=== PATIENT | male | born 1970 | race Caucasian/White ===

== ENCOUNTER 2017-12-28 20:39 | Emergency (ER) | payer MEDICAID, SELFPAY ==
[2017-12-28 20:41] VITALS: BP 130/76; PULSE 72; RESP 17; TEMP 36.6; O2SAT 100; BMI 27.4
--- NOTE | 2017-12-28 20:51 | ED.VISSUMM ---
- ER Visit Summary Date of Service: 12/28/17 Chief Complaint: Fall History of Present Illness: The patient is a 47 M who sees Juan Eubanks. Reports that just prior to coming emergency department he slipped on ice and fell backwards onto his buttocks. He hit his head, but did not have a loss of consciousness. He is not on blood thinners. He complains of a headache that is 3 out of 10 severity. He denies any neck, back, shoulder, wrist, or hip pain. Physical Examination: Vitals: Stable. Afebrile. Neck: No vertebral tenderness. Full ROM without difficulty. Cleared by NEXUS criteria. Back: No vertebral tenderness. General: A&O x 3. NAD. Cardiovascular exam: Regular rate and rhythm, no murmur, rub or gallop. Respiratory exam: Chest nontender. No crepitus. Clear to auscultation bilaterally. No wheezes or stridor. Abdominal exam: Soft, nontender, nondistended, normal bowel sounds. No pain in RUQ or LUQ specifically. No peritoneal signs. Extremity: Atraumatic. No pain with range of motion. Emergency Department Course and Treatment: Patient refused pain medications and is resting comfortably. Treatment Plan: He will be discharged instructions use Tylenol and/or ibuprofen for pain. Follow-up with his primary care physician 1 week if not improving. Disposition: To home in improved and stable condition. Impression: 1. Fall. 2. Closed head injury. This note was generated with [employer] dictation software. It may contain incorrect words, spelling, and punctuation that were not noted in review of the chart prior to signing ED Disposition - Plan for ED Patient: Chief Complaint: Fall Instructions: ED Head Injury Closed Referrals: Juan Eubanks, AUTOMOTIVE SERVICE ADVISOR-C [Nurse Practitioner] - As Needed
== END 2017-12-28 21:07 | disposition home or self-care (01) ==
LOC: ED 21:05
PROVIDERS: Emergency Provider Emergency Medicine; PCP Nurse Practitioner Family
DX: S09.90XA Unspecified injury of head, initial encounter (principal); W00.0XXA Fall on same level due to ice and snow, initial encounter; Y93.9 Activity, unspecified; Y92.89 Other specified places as the place of occurrence of the external cause; Y99.9 Unspecified external cause status; I10 Essential (primary) hypertension
CPT/HCPCS: 99282

== ENCOUNTER → 2018-04-15 11:28 | Outpatient (CLI) | payer MEDICAID, SELFPAY ==
[2018-04-15 12:34] LABS: Absolute Lymphocyte Count 1.65 X10^3/ul (0.83-4.51); Absolute Neutrophil Count 3.9 X10^3/uL (2.0-7.7); Basophil# 0.01 X10^3/uL; Basophil% 0.2 % (0-1); Eosinophil# 0.11 X10^3/uL; Eosinophils% 1.8 % (0-5); Hematocrit 38.8 % (40-54); Hemoglobin 13.8 g/dl (13.0-16.5); Lymphocyte # 1.65 X10^3/ul (4.0); Lymphocyte % 26.6 % (19-41); Mean Corp Hgb Conc 35.6 g/gl (32-36); Mean Corpuscular Hgb 30.9 pg (27.0-32.0); Mean Platelet Vol. 10.1 fl (6.2-12.0); Monocyte% 8.1 % (0-10); Neutrophil # 3.92 X10^3/uL (2.7-7.7); Neutrophil % 63.1 % (47-70); Platelet Count 197 K/mm3 (150-450); RBC Distribution Width SD 43.6 fl (35.1-43.9); Red Blood Count 4.46 M/mm3 (4.6-6.2); White Blood Count 6.2 K/mm3 (4.4-11.0)
[2018-04-15 12:39] LABS: POSITIVE COUNT NO; POSITIVE DIFFERENTIAL NO; POSITIVE MORPHOLOGY NO
[2018-04-15 12:52] LABS: AST(SGOT) 24 U/L (15-37); Alanine Aminotransfer ALT/SGPT 27 U/L (16-61); Albumin, Serum 3.9 g/dL (3.2-5.0); Alkaline Phosphatase 82 U/L (45-117); Anion Gap 7 (5-15); BUN 13 mg/dL (7-18); BUN/Creat Ratio 15.6 RATIO (10-20); Calcium,Total 9.5 mg/dL (8.5-10.1); Chloride 106 mmol/L (98-107); Cholesterol 139 mg/dL (200); Creatinine, Serum 0.83 mg/dL (0.70-1.30); EST Glomerular Filtration Rate 105 mL/min (>60); Est Glom Filt Rate - Afr Amer 127 mL/min (>60); Globulin 3.9 g/dL (2.2-4.2); Glucose 94 mg/dL (74-106); High Density Lipoprotein 32 mg/dL; Magnesium 1.9 mg/dL (1.6-2.6); Potassium 4.3 mmol/L (3.5-5.1); Protein, Total 7.8 g/dL (6.4-8.2); Sodium Level 141 mmol/L (136-145); Triglycerides 130 mg/dL; Very Low Density Lipoprotein 26 mg/dL (5-40)
== END ==
PROVIDERS: Family Provider Nurse Practitioner Family; PCP Nurse Practitioner Family; Visit Provider Nurse Practitioner Family
DX: R73.9 Hyperglycemia, unspecified (principal); I10 Essential (primary) hypertension; R79.89 Other specified abnormal findings of blood chemistry; Z87.898 Personal history of other specified conditions; R25.2 Cramp and spasm
CPT/HCPCS: 36415; 80053; 80061; 83036; 83735; 85025

== ENCOUNTER 2019-04-20 09:10 | Emergency (ER) | payer MEDICAID, SELFPAY ==
[2019-01-14 15:02] VITALS: BMI 27.4
[2019-04-20 09:10] VITALS: BP 112/67; PULSE 65; RESP 16; TEMP 36.4; O2SAT 97; BMI 24.4
--- NOTE | 2019-04-20 09:21 | ED.VISSUMM ---
- ER Visit Summary Date of Service: 04/20/19 Chief Complaint: Seizures History of Present Illness: The patient is a 49 M who states he has had a couple of seizures over the past day. He started a new job yesterday. After 1 hour on the job he felt weird and diaphoretic and he states that this is when he feels like he is having a seizure. He left work and got on the bus. He does not remember getting home after that. He states between 1 AM and 3 AM this morning he had another seizure. He takes Keppra 750 mg twice a day. He has not missed any doses. He denies any other recent illnesses. Today he feels dizzy. When he does feel dizzy he takes meclizine and it makes it better. He has not taken any today. Physical Examination: Vital signs reviewed. HEENT exam unremarkable. Heart is regular rate and rhythm without murmurs. Lungs are clear to auscultation. Abdomen is soft and nontender. Extremities reveal no edema. Skin exam normal. Neurologic exam normal. Test Results: Laboratory studies unremarkable except for a sodium of 135, glucose 109 and BUN of 6. Emergency Department Course and Treatment: The patient was given meclizine because he states that this helps with his dizziness. His neurologic exam is completely normal. His labs are reassuring. I do not see any signs that he needs a CT scan of his head. The patient will be discharged to continue his Keppra. He will need to follow-up with a neurologist if his symptoms persist. He will continue with his prescribed dose of Keppra. Treatment Plan: [] Disposition: Discharge Impression: Breakthrough seizure This note was generated with [employer] dictation software. It may contain incorrect words, spelling, and punctuation that were not noted in review of the chart prior to signing ED Disposition - Plan for ED Patient: Referrals: Kem Farmer MD [STAFF PHYSICIAN] -
[2019-04-20 09:43] LABS: Absolute Lymphocyte Count 1.47 X10^3/ul (0.83-4.51); Absolute Neutrophil Count 2.2 X10^3/uL (2.0-7.7); Basophil# 0.02 X10^3/uL; Basophil% 0.5 % (0-1); Eosinophils% 2.3 % (0-5); Hematocrit 38.5 % (40-54); Hemoglobin 13.5 g/dl (13.0-16.5); Lymphocyte # 1.47 X10^3/ul (4.0); Lymphocyte % 34.2 % (19-41); Mean Corp Hgb Conc 35.1 g/gl (32-36); Mean Corpuscular Hgb 32.9 pg (27.0-32.0); Mean Corpuscular Volume 93.9 fL (80-94); Mean Platelet Vol. 9.6 fl (6.2-12.0); Monocyte# 0.49 X10^3/uL; Monocyte% 11.4 % (0-10); Neutrophil # 2.22 X10^3/uL (2.7-7.7); Neutrophil % 51.6 % (47-70); Platelet Count 147 K/mm3 (150-450); RBC Distribution Width CV 13.4 % (11.6-14.6); RBC Distribution Width SD 45.7 fl (35.1-43.9); White Blood Count 4.3 K/mm3 (4.4-11.0)
[2019-04-20 09:46] LABS: POSITIVE COUNT NO; POSITIVE DIFFERENTIAL NO; POSITIVE MORPHOLOGY NO
[2019-04-20] MEDS: Meclizine HCl 25 MG Tablet PO (09:48)
[2019-04-20 09:52] LABS: Anion Gap 11 (5-15); BUN 6 mg/dL (7-18); BUN/Creat Ratio 7.6 RATIO (10-20); Calcium,Total 8.6 mg/dL (8.5-10.1); Chloride 100 mmol/L (98-107); Creatinine, Serum 0.79 mg/dL (0.70-1.30); EST Glomerular Filtration Rate 112 mL/min (>60); Est Glom Filt Rate - Afr Amer 135 mL/min (>60); Estimated Creatinine Clearance 125.51 ml/min; Glucose 109 mg/dL (74-106); Potassium 3.8 mmol/L (3.5-5.1); Sodium Level 135 mmol/L (136-145)
--- NOTE | 2019-04-20 10:01 | ED.DEP ---
ED Disposition - Plan for ED Patient: Disposition: Home or Assisted Living Instructions: ED Seizure Recurrent Referrals: Kem Farmer MD [STAFF PHYSICIAN] -
[2019-04-20] MEDS: levETIRAcetam 750 MG Tablet PO (10:21)
[2019-04-20 10:26] VITALS: RESP 14
[2019-04-20 10:27] VITALS: BP 118/76; PULSE 83; RESP 14; O2SAT 99
== END 2019-04-20 10:28 | disposition home or self-care (01) ==
PROVIDERS: Emergency Provider Emergency Medicine; Family Provider Nurse Practitioner Family; PCP Nurse Practitioner Family
DX: G40.909 Epilepsy, unspecified, not intractable, without status epilepticus (principal); I10 Essential (primary) hypertension
CPT/HCPCS: 80048; 85025; 99284; A4216

== ENCOUNTER 2019-06-09 16:14 | Emergency (ER) | payer MEDICAID, SELFPAY ==
[2019-04-21 15:58] VITALS: BMI 24.4
[2019-06-09 16:16] VITALS: BP 89/62; PULSE 69; RESP 18; TEMP 36.8; O2SAT 88; BMI 19.3
--- NOTE | 2019-06-09 16:46 | EKG12_ITS ---
Test Reason : CP Blood Pressure : / mmHG Vent. Rate : 069 BPM Atrial Rate : 069 BPM P-R Int : 186 ms QRS Dur : 082 ms QT Int : 404 ms P-R-T Axes : 044 020 035 degrees QTc Int : 432 ms Normal sinus rhythm Normal ECG Confirmed by OLEG BRAVO, KEL ([id number]), editorial manager BRENDAN BLACKBURN ([id number]) on 06/13/2019 12:53:28 PM Referred By: ANJEL Confirmed By:KEL DEJESUS MD
--- NOTE | 2019-06-09 16:47 | ED.DCSUM_ITS ---
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 Negative for: Parasthesias, Weakness, Loss of function, Inability to ambulate - states he was able to BW/ambulate BLE after fall Length of loss of consciousness: brief Narrative: Patient states he was going for a job interview today. He was in an area [facility] [place] [employer], he states there was a ledge that was 3 feet high and he thought it was a step so he went to go down but then fell before he realized how high he was, he felt fine prior to this fall. He states he hit his head in his left back and thinks he lost consciousness briefly, and scraped his knees which are not bothering him. He has been able to ambulate. He states his left chest is also bothering him since he awoke on the ground with someone over top of him trying to help him. EMS was called. States he has chronic vertigo and seizure disorder, none of that is an issue at this time. He denies headache, vision change, nausea/vomiting, upper extremity injury, abdominal discomfort. - Past Medical History (1) Arthritis Status: Chronic (2) Depression Status: Chronic (3) GERD (gastroesophageal reflux disease) Status: Chronic (4) Glaucoma Status: Chronic (5) History of alcohol abuse Status: Chronic (6) Hyperlipemia Status: Chronic (7) Hypertension Status: Chronic (8) Peripheral neuropathy Status: Chronic (9) Seizures Status: Chronic (10) Vertigo Status: Chronic Past Medical History - Allergies and Home Meds Allergies/Adverse Reactions: Allergies No Known Allergies Allergy (Verified 06/09/19 16:21) Primary Care Physician: Kem Farmer MD [STAFF PHYSICIAN] - Smoking Status: Never smoker Alcohol: Occasional Review of Systems General: Denies: Chills, Fever, Sweats Eyes: Denies: Visual changes - bilaterally, Diplopia ENT: Denies: Rhinorrhea, Sore throat Cardiovascular: Reports: Chest pain. Denies: Palpitations Respiratory: Denies: Dyspnea, Cough, Dyspnea on exertion Gastrointestinal: Denies: Abdominal pain, Nausea, Vomiting, Diarrhea, Melena, Hematochezia Genitourinary: Denies: Dysuria, Hematuria, Frequency Musculoskeletal: Reports: Back pain. Denies: Extremity Pain Skin: Reports: Abrasions. Denies: Rash Neurological: Denies: Headache, Weakness, Numbness Physical Exam Vital Signs/Narrative: Vital Signs Temp Pulse Resp BP Pulse Ox 06/09/19 16:16 98.3 F 69 18 89/62 L 88 Inital Vital Signs reviewed: Yes General: Well nourished, Well developed Head: Normocephalic, Atraumatic. Negative for: Trauma, Tenderness Eyes: Perrl, EOMI ENT: TM's clear, No hemotympanum or drainage, No trauma. Negative for: Otorrhea, Nasal trauma, Nasal septal hematoma Neck: Nontender, Full ROM. Negative for: Spinal Tenderness, Paraspinal Tenderness Cardiovascular: Regular rate, Regular rhythm, No murmurs Respiratory: No distress, CTA bilaterally - w/ equal BS bilat, Chest tenderness - left lower anterior-lateral ribcage; no crepitance or flail segment Abdomen: Soft, Nontender, Nondistended, Normal bowel sounds Back: Paraspinal Tenderness - left mid-lower ribs paraspinal. Negative for: Spinal Tenderness Extremeties: Abrasions both knees, no bony tenderness, full range of motion throughout knees, no effusion. Ligaments intact. Skin: Normal color, No rash, Trauma - abrasions both knees, no bony tenderness Neurological: Alert, Oriented x3, Cranial nerves II-XII grossly intact, Normal Strength, Normal Sensation Psychological: - - Flat affect Diagnostic/Tx/Re-eval Impressions Brain CT 06/09/19 16:47 IMPRESSION: Normal unenhanced CT scan of the brain. Electronically Signed: Chauncey Castellon DO at 17:45 EDT Tel , Service support , Ribs w/Chest X-Ray 06/09/19 17:20 IMPRESSION: RIBS: Left-sided rib fractures as above CHEST: Normal x-ray examination of the chest. No pneumothorax Electronically Signed: Chauncey Castellon DO at 17:32 EDT Tel , Service support , 06/09/19 16:47 CT Brain [Brain/Head without Contrast] [CT] Stat 06/09/19 17:20 Ribs Uni Min 3V w/PA Chest [RAD] Stat Laboratory Results 06/09/19 06/09/19 17:40 17:40 Troponin I < 0.015 Ethyl Alcohol 382.0 H* - Rhythm Strip Rhythm Strip: Sinus Rhythm Rate: 70 Ectopy: None - EKG Initial EKG Interpretation: Sinus Rhythm, No Acute Injury Pattern - No ectopy. Normal EKG. - Medical Decision Making Patient smelled of alcohol, but I was not sure. Therefore I obtained an alcohol level, it was very high, 380. He was given a [place] initially, a small like alcohol I did not want to give him morphine and suppress his level of consc iousness. He remained awake throughout his stay. X-rays show multiple rib fractures on the left side, none are segmental, there is no flail. He has no evidence of a pulmonary contusion or pneumothorax and has been breathing comfortably with good pulse oximetry. EKG shows no ectopy or ST segment changes, there is no ectopy, this essentially ruling out for all intensive purposes a myocardial contusion. He told nursing that he wanted to stay and agreed to stay in a residential because he would need help caring for himself as he lives alone. However, given that he is grossly intoxicated, at this time the decision is to observe him further in the emergency department. His pain is controlled now while resting in bed. Patient was monitored for about 4 hours total. He is doing much better and is much more reasonable after observation, his parents are here and I discussed his care with them after obtaining his permission. They are comfortable taking him home at this time, I will give him a prescription for some analgesics. We did discuss alcohol use/abuse. ED Disposition - Plan for ED Patient: Disposition: Home or Assisted Living Diagnosis: Fracture of rib of left side, Fall from slip, trip, or stumble, Abrasion of lower extremity, Alcohol intoxication Instructions: FRACTURE, Rib Prescriptions: Hydrocodone Bitart/Apap 5-325 [[place] 5MG-325MG] 1 tab PO Q6H PRN PRN 3 Days #12 tab PRN Reason: Pain Prescription Printed Referrals: Kem Farmer MD [STAFF PHYSICIAN] - 3-5 Days if not improving
--- NOTE | 2019-06-09 16:47 | CT_ITS ---
STUDY: CT BRAIN WITHOUT CONTRAST REASON FOR EXAM: Male, 49 years old. Vertigo and fall RADIATION DOSAGE (If Supplied By Facility): CTDIvol = ( 44.99 ) mGy, DLP = ( 846.73 ) mGycm TECHNIQUE: Transaxial CT imaging of the brain was performed without administration of intravenous contrast material. Individualized dose optimization techniques were used for this CT. COMPARISON: No relevant priors. FINDINGS: Normal soft tissue structures. Normal calvarium. Normal size ventricles and extra-axial spaces for the patient's age. Normal white matter tracts of the cerebral hemispheres. Normal basal ganglia and thalami. Normal brainstem. Normal cerebellum. There is no intracranial hemorrhage. There are no findings of an acute ischemic infarction. Normal visualized paranasal sinuses. CT/Brain/Head without Contrast IMPRESSION: Normal unenhanced CT scan of the brain. Electronically Signed: Chauncey Castellon DO at 17:45 EDT Tel , Service support ,
--- NOTE | 2019-06-09 16:56 | NURSING ---
NO OLD EKGS
[2019-06-09] MEDS: HYDROcodone Bitartrate/Apap 5/325 Tablet PO (17:15)
--- NOTE | 2019-06-09 17:20 | RAD_ITS ---
STUDY: X-RAY - UNILATERAL RIBS ( LEFT ) WITH CHEST REASON FOR EXAM: Male, 49 years old. Left rib pain after fall TECHNIQUE - RIBS: 5 view(s) of the ribs. TECHNIQUE - CHEST: Single frontal view of the chest. COMPARISON: None. FINDINGS - RIBS: Nondisplaced left lateral sixth and seventh and possibly eighth rib fractures. FINDINGS - CHEST: No pneumothorax The lungs are clear and expanded. There is no demonstrated pleural abnormality. Normal size heart. Normal mediastinum and jerry. Normal visualized pulmonary arteries. Normal visualized aortic arch and descending thoracic aorta. Normal visualized thoracic spine. Normal visualized ribs, clavicles, and shoulders. There is no demonstrated abnormality of the visualized soft tissue structures of the upper abdomen. RAD/Ribs Uni Min 3V w/PA Chest IMPRESSION: RIBS: Left-sided rib fractures as above CHEST: Normal x-ray examination of the chest. No pneumothorax Electronically Signed: Chauncey Castellon DO at 17:32 EDT Tel , Service support ,
[2019-06-09 17:51] VITALS: RESP 18
[2019-06-09 18:34] VITALS: BP 106/71; PULSE 68; RESP 15; O2SAT 96
[2019-06-09 20:41] VITALS: BP 133/76; PULSE 84; RESP 17; O2SAT 96
== END 2019-06-09 20:42 | disposition home or self-care (01) ==
PROVIDERS: Emergency Provider Emergency Medicine; Family Provider Nurse Practitioner Family; PCP Nurse Practitioner Family
DX: S22.42XA Multiple fractures of ribs, left side, initial encounter for closed fracture (principal); S80.819A Abrasion, unspecified lower leg, initial encounter; W01.0XXA Fall on same level from slipping, tripping and stumbling without subsequent striking against object, initial encounter; F10.129 Alcohol abuse with intoxication, unspecified; G40.909 Epilepsy, unspecified, not intractable, without status epilepticus; F32.9 Major depressive disorder, single episode, unspecified; K21.9 Gastro-esophageal reflux disease without esophagitis; H40.9 Unspecified glaucoma; E78.5 Hyperlipidemia, unspecified; I10 Essential (primary) hypertension; G62.9 Polyneuropathy, unspecified; Y90.8 Blood alcohol level of 240 mg/100 ml or more; Z60.2 Problems related to living alone
CPT/HCPCS: 36415; 70450; 71101; 80320; 84484; 93005; 99284; G0480

== ENCOUNTER 2019-06-10 12:19 | Emergency (ER) | payer MEDICAID, SELFPAY ==
[2019-06-09 16:16] VITALS: BMI 19.3
[2019-06-10 12:20] VITALS: BP 157/101; PULSE 91; RESP 20; TEMP 36.7; O2SAT 96; BMI 25.1
--- NOTE | 2019-06-10 12:37 | ED.DCSUM_ITS ---
- ER Visit Summary Date of Service: 06/10/19 Chief Complaint: Requesting detox and also more short of breath History of Present Illness: The patient is a 49 M acute alcohol abuse. Patient seen and treated yesterday. From the fall he was diagnosed with left 6, seventh and eighth rib fractures. He was prescribed hydrocodone which she has not had filled yet. Presents today requesting detox as a history of alcohol abuse and his alcohol yesterday was 382. States he has not drank today. Also states he i s more short of breath rib pain. Denies any leg swelling. No cardiac sounding chest pain. Physical Examination: Middle-aged male no acute distress. Vital signs stable afebrile. Pulse ox 96% on room air no signs of hypoxia. H EENT exam atraumatic. C-spine nontender. Trachea midline. Lungs clear to auscultation bilaterally but the decreased inspiration due to pain on the left. Left chest wall tenderness. There is no crepitance or subcu at this time. Heart regular rate and rhythm rate about 90 no murmur. Abdomen is soft and nontender. Normal bowel sounds no peritoneal signs. Remedies moves all 4. Calves are nontender without edema or cords. He is moving all 4 extremities. There is no deformity. Back nontender. Neurologically he is awake and alert with no focal motor deficits. Test Results: Chest x-ray AP and lateral views obtained. Left sixth rib fracture possibly others. No pneumothorax. No pleural effusion. Read by cecilia crespo and the radiologist. Emergency Department Course and Treatment: Patient treated with [place] for pain. Continue with [facility] will be down to evaluate the patient for possible detox. [facility] came to the ER evaluated patient said that her CIAWA score was only 8. Patient did not qualify for detox at this time. Treatment Plan: Already has a prescription for hydrocodone for pain from his broken ribs on the left. [facility]-up with [facility] alcohol abuse. Disposition: dc Impression: Status post recent fall with rib fractures of left ribs #6, #7 #8. History of alcohol abuse requesting detox This note was generated with [employer] software. It may contain incorrect words, spelling, and punctuation that were not noted in review of the chart prior to signing ED Disposition - Plan for ED Patient: Referrals: Juan Eubanks NP-C [Primary Care Provider] -
[2019-06-10] MEDS: HYDROcodone Bitartrate/Apap 5/325 Tablet PO (12:46)
[2019-06-10 12:49] VITALS: BP 150/98
--- NOTE | 2019-06-10 13:00 | RAD_ITS ---
STUDY: X-RAY CHEST REASON FOR EXAM: Male, 49 years old. Left-sided chest pain following a fall. TECHNIQUE: Single AP portable view of the chest. COMPARISON: None. FINDINGS: The lungs are clear and expanded. There is no demonstrated pleural abnormality. Normal size heart. Normal mediastinum and jerry. Normal visualized pulmonary arteries. Normal visualized aortic arch and descending thoracic aorta. Normal visualized thoracic spine. Nondisplaced left sixth, seventh and eighth ribs fractures. There is no demonstrated abnormality of the visualized soft tissue structures of the upper abdomen. RAD/Chest 1 View IMPRESSION: Normal x-ray examination of the chest. Stable left-sided rib fractures. Electronically Signed: Kar Dave, at 13:34 EDT , Service support ,
--- NOTE | 2019-06-10 14:37 | NEWVISION ---
I assessed patient. Patient's CIWA score is 8. I notified Dr. Garcia of his CIWA score. I let patient know that he did not meet admission criteria due to CIWA score and offered resources.
--- NOTE | 2019-06-10 15:07 | ED.DEP ---
ED Disposition - Plan for ED Patient: Disposition: Home or Assisted Living Instructions: FRACTURE, Rib, Alcohol Abuse Referrals: Juan Eubanks, TERRITORY MANAGER GENERAL SALES-C [Primary Care Provider] - As Needed Additional Instructions: Ice to chest wall. Usability brace your broken ribs. Hydrocodone for pain. [facility]-up with [facility] for alcohol abuse.
[2019-06-10 15:32] VITALS: BP 148/80; PULSE 84; RESP 16; O2SAT 98
== END 2019-06-10 15:34 | disposition home or self-care (01) ==
PROVIDERS: Emergency Provider Emergency Medicine; Family Provider Nurse Practitioner Family; PCP Nurse Practitioner Family
DX: S22.42XG Multiple fractures of ribs, left side, subsequent encounter for fracture with delayed healing (principal); W19.XXXD Unspecified fall, subsequent encounter; F10.10 Alcohol abuse, uncomplicated; Y90.9 Presence of alcohol in blood, level not specified; I10 Essential (primary) hypertension; K21.9 Gastro-esophageal reflux disease without esophagitis
CPT/HCPCS: 71045; 99284

== ENCOUNTER 2019-06-16 10:34 | Emergency (ER) | payer MEDICAID, SELFPAY ==
[2019-06-16 10:36] VITALS: BP 99/70; PULSE 74; PULSE 75; RESP 18; TEMP 36.7; O2SAT 96; BMI 24.8
--- NOTE | 2019-06-16 10:45 | ED.VIS.GEN ---
History of Present Illness Chief Complaint: Substance Abuse Detail of Chief Complaint: Requesting detox from alcohol Informant: Patient Onset: Today Timing: Continuous Quality: Patient complains of tremors Location: Generalized Current Severity: Moderate Maximum Severity: Moderate Worsened by: Abstinence Relieved by: Nothing Associated Symptoms: Rib pain secondary to fractures due to seizure Narrative: Patient is a 49-year-old male who reports he has been drinking for 31 years of his life. He was last detox 2002. He states he began to drink right after he got out of detox. He normally drinks a case a day. He has been drinking a sixpack daily for the last week. He contacted Lien who is affiliated with [employer] and recommended he come to the emergency department. Initially he refused to move his left upper extremity/for tremors because he reported he could not. He was informed even though he has broken ribs he should be able to move his left upper extremity. He was successful. Prior similar symptoms: Yes Recent Illness/Hospitalization: No - Past Medical History (1) Depression Status: Chronic (2) GERD (gastroesophageal reflux disease) Status: Chronic (3) Glaucoma Status: Chronic (4) History of alcohol abuse Status: Chronic (5) Hyperlipemia Status: Chronic (6) Hypertension Status: Chronic (7) Peripheral neuropathy Status: Chronic (8) Seizures Status: Chronic (9) Tobacco abuse Status: Chronic Past Medical History - Allergies and Home Meds Allergies/Adverse Reactions: Allergies No Known Allergies Allergy (Verified 06/16/19 10:35) Primary Care Physician: Juan Eubanks NP-C [Primary Care Provider] - Prior records reviewed: Yes Lives: Spouse/ Significant Other Smoking Status: Never smoker Alcohol: Heavy Drugs: None Review of Systems General: Denies: Chills, Fever, Sweats Eyes: Denies: Visual changes - bilaterally, Blurred Vision - bilaterally, Diplopia ENT: Denies: Rhinorrhea, Sore throat Cardiovascular: Reports: Chest pain. Denies: Palpitations, Heart racing Respiratory: Denies: Dyspnea, Cough, Dyspnea on exertion Gastrointestinal: Denies: Abdominal pain, Nausea, Vomiting, Diarrhea, Melena, Hematochezia Genitourinary: Denies: Dysuria, Hematuria, Frequency Musculoskeletal: Denies: Myalgias, Arthralgias, Neck pain, Back pain, Swelling, Extremity Pain Skin: Denies: Rash, Wounds Neurological: Reports: Weakness, Parasthesia. Denies: Headache, Numbness Hematologic: Denies: Easy bruising, Easy bleeding Physical Exam Vital Signs/Narrative: Vital Signs Temp Pulse Resp BP Pulse Ox 06/16/19 10:36 98.0 F 75 18 99/70 96 Inital Vital Signs reviewed: Yes General: Well nourished, Well developed, No Acute Distress Head: Normocephalic, Atraumatic Eyes: Perrl, EOMI ENT: Moist mucous membranes, No rhinorrhea Neck: Supple, Nontender Cardiovascular: Regular rate, Regular rhythm, No murmurs Respiratory: No distress, CTA bilaterally, Chest nontender Abdomen: Soft, Nontender, Nondistended, Normal bowel sounds Back: Nontender, Normal Inspection Extremities: Nontender, No edema Skin: Normal color, No Trauma, Rash - Eczema. Negative for: Cyanosis, Diaphoresis, Jaundice Neurological: Alert, Oriented x3, Cranial nerves II-XII grossly intact, Normal Strength, Normal Sensation, Normal DTR - 1-2+ symmetric with no clonus or Babinski sign. Psychological: Depressed Diagnostic/Tx/Re-eval - Medical Decision Making [facility].. Patient is not tachycardic, tach tachypnea, hypertensive and there is no tremor, hyperreflexia or clonus. [facility] was contacted since he is requesting detox. Lien from [facility] informed me that patient was accepted at [facility]. He is waiting for his . ED Disposition - Plan for ED Patient: Disposition: Home or Assisted Living Diagnosis: Alcohol dependence with alcohol-induced mood disorder, Rib fractures Instructions: Alcohol Abuse Referrals: Juan Eubanks NP-C [Primary Care Provider] -
--- NOTE | 2019-06-16 10:47 | ED.RN ---
this rn talked with Sherry. they states they had talked with lc from [facility] and she would be up to evaluate pt.this rn left message for [facility].
[2019-06-16 12:20] VITALS: BP 104/73; PULSE 67; RESP 17; RESP 18
== END 2019-06-16 12:23 | disposition home or self-care (01) ==
PROVIDERS: Emergency Provider Emergency Medicine; Family Provider Nurse Practitioner Family; PCP Nurse Practitioner Family
DX: F10.24 Alcohol dependence with alcohol-induced mood disorder (principal); Y90.9 Presence of alcohol in blood, level not specified; F32.9 Major depressive disorder, single episode, unspecified; E78.5 Hyperlipidemia, unspecified; G62.9 Polyneuropathy, unspecified; H40.9 Unspecified glaucoma; I10 Essential (primary) hypertension; K21.9 Gastro-esophageal reflux disease without esophagitis; S22.49XA Multiple fractures of ribs, unspecified side, initial encounter for closed fracture; X58.XXXA Exposure to other specified factors, initial encounter; Y92.9 Unspecified place or not applicable; Y99.9 Unspecified external cause status
CPT/HCPCS: 99284

== ENCOUNTER → 2019-06-23 09:45 | Outpatient (CLI) | payer MEDICAID, SELFPAY ==
[2019-06-23 09:17] VITALS: BMI 24.8
[2019-06-27 08:15] LABS: KEPPRA (LEVETIRACETAM) 58.5 ug/mL (10.0-40.0)
== END ==
PROVIDERS: Family Provider Nurse Practitioner Family; PCP Internal Medicine; Visit Provider Nurse Practitioner Family
DX: R56.9 Unspecified convulsions (principal)
CPT/HCPCS: 36415; 80177

== ENCOUNTER 2019-11-10 19:57 | Emergency (ER) | payer MEDICAID, SELFPAY ==
[2019-08-10 15:20] VITALS: BMI 24.8
[2019-11-10 19:59] VITALS: BP 133/82; PULSE 74; RESP 18; TEMP 36.8; O2SAT 100
--- NOTE | 2019-11-10 21:13 | ED.VISSUMM ---
- ER Visit Summary Date of Service: 11/10/19 Chief Complaint: Abscess History of Present Illness: The patient is a 49 M presenting with left buttock abscess. Patient states this started a couple of days ago. He currently is in alcohol treatment. He receives Vivitrol injections once a month. His last injection was one week ago. He now has redness and abscess surrounding the injection site. He denies fever or other complaints. Physical Examination: Vitals are stable. Patient is afebrile. Alert no acute distress. HEENT exam is unremarkable. Neck is supple. Lungs are clear and equal bilaterally. Heart is regular rate and rhythm. Abdomen is soft nontender nondistended. Left buttock indurated abscess 3 cm with surrounding erythema Extremities are unremarkable. Skin is warm and dry. No focal neurologic deficit. Remainder of exam is unremarkable. Emergency Department Course and Treatment: I&D was performed. Anesthetized with lidocaine. Incised with 11 blade. Pus was drained. Probed to break up loculations. Irrigated with saline. Patient tolerated this well. He is given Bactrim and Keflex. Advised to follow-up with primary care physician. Advised return to ED if worsening complaints. Disposition: Discharged home Impression: Buttock abscess, I&D This note was generated with [employer] dictation software. It may contain incorrect words, spelling, and punctuation that were not noted in review of the chart prior to signing ED Disposition - Plan for ED Patient: Instructions: ABSCESS, Incision and Drainage Prescriptions: Smz/Tmp Ds [Bactrim Ds] 1 tab PO BID #14 tab Prescription Printed Cephalexin [Keflex] 500 mg PO Q6 #40 cap Prescription Printed Referrals: Kem Farmer MD [Primary Care Provider] -
--- NOTE | 2019-11-10 23:00 | ED.DEP ---
ED Disposition - Plan for ED Patient: Instructions: ABSCESS, Incision and Drainage Prescriptions: Smz/Tmp Ds [Bactrim Ds] 1 tablet PO BID #14 tablet Cephalexin [Keflex] 500 mg PO Q6 #40 capsule Referrals: Kem Farmer MD [Primary Care Provider] -
[2019-11-10] MEDS: Cephalexin 250 MG Capsule 500 MG PO (23:20)
[2019-11-10] MEDS: Smz/Tmp Ds Tablet 1 TABLET PO (23:20)
[2019-11-10 23:24] VITALS: RESP 16
== END 2019-11-10 23:24 | disposition home or self-care (01) ==
LOC: ED 20:41
PROVIDERS: Emergency Provider Emergency Medicine; Family Provider Internal Medicine; PCP Internal Medicine
DX: L02.31 Cutaneous abscess of buttock (principal); I10 Essential (primary) hypertension; Z79.899 Other long term (current) drug therapy
CPT/HCPCS: 10060; 99283

== ENCOUNTER 2019-11-30 20:01 | Emergency (ER) | payer SELFPAY ==
[2019-11-18 16:03] VITALS: BMI 28.8
[2019-11-30 20:02] VITALS: BP 144/93; PULSE 81; RESP 17; TEMP 36.1; O2SAT 99; BMI 28.6
--- NOTE | 2019-11-30 20:35 | RAD_ITS ---
STUDY: X-RAY - LEFT KNEE REASON FOR EXAM: Male, 49 years old. Fall. Pain. TECHNIQUE: 4 view(s) of the knee. COMPARISON: None. FINDINGS: There is no evidence of fracture or dislocation. There are no significant degenerative changes. There are no radiodense foreign bodies. RAD/Knee 4 or More Views IMPRESSION: No fracture or dislocation. Electronically Signed: Huber Hay, at 20:39 EST Tel , Service support ,
--- NOTE | 2019-11-30 20:54 | ED.VIS.LOWEX ---
History of Present Illness Chief Complaint: Lower Extremity Injury Informant: Patient Occurred: Today Mechanism/Context: Fall Onset: Today Context: Sudden Onset Timing: Continuous Quality of Pain: Aching Location: left knee Current Severity: Moderate Maximum Severity: Moderate Worsened by: walking Relieved by: rest Associated Symptoms: Negative for: Parasthesia, Weakness, Loss of Funtion Narrative: Patient states he slipped on outdoor steps, falling to the concrete versus his left knee mainly. It was earlier today. He has been having pain with walking and feels it is a little swollen. Sustained an abrasion. No other injuries. Has been able to ambulate. - Past Medical History (1) Brain atrophy Status: Chronic (2) Depression Status: Chronic (3) GERD (gastroesophageal reflux disease) Status: Chronic (4) Glaucoma Status: Chronic (5) History of alcohol abuse Status: Chronic (6) Hyperlipemia Status: Chronic (7) Hypertension Status: Chronic (8) Peripheral neuropathy Status: Chronic (9) Seizures Status: Chronic Past Medical History - Allergies and Home Meds Allergies/Adverse Reactions: Allergies No Known Allergies Allergy (Verified 11/30/19 20:01) Primary Care Physician: Kem Farmer MD [Primary Care Provider] - Smoking Status: Never smoker Review of Systems General: Denies: Chills, Fever, Sweats Musculoskeletal: Reports: Extremity Pain. Denies: Neck pain, Back pain Skin: Reports: Abrasions. Denies: Rash Neurological: Denies: Headache, Weakness, Numbness Physical Exam Vital Signs/Narrative: Vital Signs Temp Pulse Resp BP Pulse Ox 11/30/19 20:02 97.0 F L 81 17 144/93 H 99 Inital Vital Signs reviewed: Yes - Extremity Exam Left Knee: Abrasion - Broad-based, superficial, scabbed between tibial tuberosity and patella; tender throughout that area., Limited ROM - With regards to flexion., - - Full extension intact. All ligaments stable with short endpoints and little discomfort on stressing. No effusion. Joint stable. General: Well nourished, Well developed, - - NAD Head: Normocephalic, Atraumatic Skin: Normal color, No rash, Trauma - Abrasion left knee, minor abrasions to right lower leg Neurological: Alert, Oriented x3, Cranial nerves II-XII grossly intact, Normal Strength, Normal Sensation Psychological: Normal affect, Normal Mood Diagnostic/Tx/Re-eval On my interpretation, 4 view x-ray of the left knee shows no acute fracture or acute disease. - Medical Decision Making Patient placed in an Mark wrap, given ibuprofen, prescription for Naprosyn, and advised to follow-up with orthopedics if he has persistent problems after 1 to 2 weeks of rest and ice and NSAIDs. ED Disposition - Plan for ED Patient: Disposition: Home or Assisted Living Diagnosis: Contusion of left knee, Fall from slip, trip, or stumble Instructions: CONTUSION, Lower Extremity Prescriptions: Naproxen [Naprosyn] 500 mg PO BID PRN #20 tab Transmission Status: Pending to [facility] [place] - [id number] Referrals: Sabine Ballard DO [STAFF PHYSICIAN] - 10-14 Days if not better
[2019-11-30] MEDS: Ibuprofen 600 MG Tablet PO (21:16)
[2019-11-30 21:17] VITALS: PULSE 78; RESP 18; O2SAT 98
== END 2019-11-30 21:24 | disposition home or self-care (01) ==
PROVIDERS: Emergency Provider Emergency Medicine; Family Provider Internal Medicine; PCP Internal Medicine
DX: S80.02XA Contusion of left knee, initial encounter (principal); S80.212A Abrasion, left knee, initial encounter; S80.811A Abrasion, right lower leg, initial encounter; W01.0XXA Fall on same level from slipping, tripping and stumbling without subsequent striking against object, initial encounter; Y93.9 Activity, unspecified; Y92.9 Unspecified place or not applicable; F32.9 Major depressive disorder, single episode, unspecified; K21.9 Gastro-esophageal reflux disease without esophagitis; H40.9 Unspecified glaucoma; E78.5 Hyperlipidemia, unspecified; I10 Essential (primary) hypertension; G62.9 Polyneuropathy, unspecified; G40.909 Epilepsy, unspecified, not intractable, without status epilepticus; G31.9 Degenerative disease of nervous system, unspecified; Z79.899 Other long term (current) drug therapy
CPT/HCPCS: 73564; 99283

== ENCOUNTER 2020-11-14 08:46 | Emergency (ER) | payer SELFPAY ==
[2020-11-13 08:14] VITALS: BMI 27.9
[2020-11-14 08:47] VITALS: BP 153/102; PULSE 87; RESP 17; TEMP 36.8; O2SAT 99; BMI 27.3
--- NOTE | 2020-11-14 09:02 | ED.DCSUM_ITS ---
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 He is right-hand dominant. Reports this morning at work he had lifted a bumper that he estimates was 80 pounds off the table. The end of the bumper ran into one of the car bodies and jerked him and he dropped to the bumper. He had immediate onset of pain in his left shoulder. He reports he has pain is 10 of 10 when he abducts his shoulder and 7 out of 10 at rest. He denies any paresthesias. He did not fall. He denies other injuries. Physical Examination: Vitals: Stable. Afebrile. Neck: No vertebral tenderness. Full ROM without difficulty. Cleared by NEXUS criteria. Back: No vertebral tenderness. General: A&O x 3. NAD. Cardiovascular exam: Regular rate and rhythm, no murmur, rub or gallop. Respiratory exam: Chest nontender. No crepitus. Clear to auscultation bilaterally. No wheezes or stridor. Abdominal exam: Soft, nontender, nondistended, normal bowel sounds. No pain in RUQ or LUQ specifically. No peritoneal signs. Extremity: Mild tenderness palpation to the posterior surface of his left shoulder. He does have decreased range of motion secondary to pain with active motion much greater than passive. He also has pain with external rotation. He is a 2+ radial pulse.. Test Results: Clinical Impression(s) from Imaging Studies Shoulder X-Ray 11/14/20 09:07 IMPRESSION: Healed left rib fractures. Mild degree of degenerative changes of the acromioclavicular joint. Electronically Signed: Kar Tenzin, at 9:31 EST , Service support , Emergency Department Course and Treatment: Patient was placed in a sling and treated with naproxen. I had a prolonged discussion to him that he may have damaged his rotator cuff. Treatment Plan: Patient will be discharged with marked restrictions and a sling. Instructed use Tylenol and/or ibuprofen for pain. Ice the area. Follow-up corporate care in 3 to 5 days if not improving. Return to the emergency department for any worsening symptoms. Disposition: To home in improved and stable condition. Impression: 1. Left shoulder sprain. This note was generated with [employer] dictation software. It may contain incorrect words, spelling, and punctuation that were not noted in review of the chart prior to signing ED Disposition - Plan for ED Patient: Instructions: ED Shoulder Pain, Uncertain Cause Referrals: Corporate,[facility] [GROUP OF PHYSICIANS] - 3-5 Days
--- NOTE | 2020-11-14 09:07 | RAD_ITS ---
STUDY: X-RAY - LEFT SHOULDER REASON FOR EXAM: Male, 50 years old. INJURED LEFT SHOULDER. HE STATES HIS ARM WAS JERKED WHILE AT WORK TODAY.PAIN IN LEFT SHOULDER. TECHNIQUE: 2 view(s) of the shoulder. COMPARISON: None. FINDINGS: Normal glenohumeral articulation. There is degenerative arthrosis of the acromioclavicular joint without inferior osseous spur formation. Normal acromion. Normal humeral head and visualized proximal humerus. Healed left rib fractures. The soft tissue structures are unremarkable. Normal visualized pulmonary apex. RAD/Shoulder min 2 Views IMPRESSION: Healed left rib fractures. Mild degree of degenerative changes of the acromioclavicular joint. Electronically Signed: Kar Dave, at 9:31 EST , Service support ,
[2020-11-14] MEDS: Naproxen 500 MG Tablet PO (09:39)
== END 2020-11-14 10:10 | disposition home or self-care (01) ==
LOC: ED 09:26
PROVIDERS: Emergency Provider Emergency Medicine; PCP Internal Medicine
DX: S43.402A Unspecified sprain of left shoulder joint, initial encounter (principal); W22.03XA Walked into furniture, initial encounter; I10 Essential (primary) hypertension
CPT/HCPCS: 73030; 99283

== ENCOUNTER → 2020-11-30 08:14 | Outpatient (CLI) | payer SELFPAY ==
[2020-11-13 08:14] VITALS: BMI 27.9
[2020-11-14 08:47] VITALS: BMI 27.3
--- NOTE | 2020-11-30 08:19 | MRI_ITS ---
STUDY: MRI BRAIN WITH AND WITHOUT CONTRAST REASON FOR EXAM: Male, 50 years old. Hx of eplileptic seizures, currently under control with meds. New pain, numbness in bilat feet and right hand TECHNIQUE: Standardized multiplanar fat and water weighted pulse sequences were obtained. 17ml DOtarem via IV was administered for the contrast portion of the examination. COMPARISON: CT 06/09/2019 FINDINGS: There is mild cerebral atrophy with widening of the extra-axial spaces and ventricular dilatation. Normal white matter tracts of the supratentorial brain. There is no evidence for recent intracranial ischemia or other cause of cytotoxic edema on diffusion weighted imaging (DWI). Normal T2* images of the brain without demonstrated susceptibility artifact. There is no demonstrated hemosiderin stain. Thin section coronal T2-weighted images the temporal lobes demonstrate no evidence of hippocampal atrophy or hyperintensity to suggest mesial temporal sclerosis. Normal bilateral basal ganglia. Normal thalami. There is no extra-axial fluid accumulation. Normal flow voids within the major intracranial circulation suggesting patency by spin echo criteria. Normal venous enhancement. There is no enhancing intra-axial or extra-axial abnormality. Normal sella turcica, pituitary gland, infundibular stalk, optic chiasm and hypothalamus. Normal tectal plate and pineal gland. Normal midbrain, gabriel and medulla. Normal cerebellum. Normal basal cisterns. Normal bilateral temporal bones. Normal bilateral internal auditory canals. There are bilateral ocular lens implants with otherwise normal intraorbital contents. There is mucoperiosteal inflammatory disease of the paranasal sinuses consistent with mild chronic sinusitis. Normal calvarium and skull base. Normal visualized soft tissue structures. Normal visualized upper cervical spine. MRI/Brain W/WO Contrast IMPRESSION: Involutional changes of the brain, as described above. Electronically Signed: Davin Romero MD at 14:54 EST Tel , Service support ,
--- NOTE | 2020-11-30 10:42 | TELEMED_ITS ---
[facility] Telemed has confirmed receipt of a request for visit. This document confirms receipt of the order initiating the consult. To find the results of the consultation, please view the patient's reports for the scanned Telemed Consult.
== END ==
PROVIDERS: PCP Nurse Practitioner Family; Referring Provider Psychiatry & Neurology Neurology; Visit Provider Psychiatry & Neurology Neurology
DX: G40.909 Epilepsy, unspecified, not intractable, without status epilepticus (principal)
CPT/HCPCS: 70553; 95819; A9575

== ENCOUNTER → 2020-12-28 08:06 | Outpatient (CLI) | payer MEDICAID, SELFPAY ==
[2020-11-13 08:14] VITALS: BMI 27.9
[2020-12-25 16:56] VITALS: BMI 27.9
--- NOTE | 2020-12-28 10:25 | NEURO_ITS ---
NCS and/or EMG Patient Report Ordering Doctor: Neo Ji DATE OF SERVICE: 12/28/20 Indication: Long standing bilateral foot pain which worsens with activity. Diminished sensation in the feet. History of multiple ankle fractures. Localized back pain without clear radicular symptoms. Evaluate for peripheral polyneuropathy. Findings: Nerve conduction studies were performed in the right and left lower extremities. The right peroneal motor study recording the extensor digitorum brevis showed a normal amplitude, normal distal latency and borderline conduction velocity. No conduction block or focal slowing was present across the fibular neck. The right tibial motor study recording the abductor hallucis brevis showed a normal amplitude, normal distal latency and slightly reduced conduction velocity. Right sural sensory response showed a reduced amplitude, prolonged peak latency and slowed conduction velocity. Right superficial peroneal sensory response showed a normal amplitude, prolonged peak patency and borderline conduction velocity. Right medial plantar sensory response showed an absent response. The left peroneal motor study recording the extensor digitorum brevis showed a normal amplitude, prolonged distal latency and borderline conduction velocity. No conduction block or focal slowing was present across the fibular neck. The left tibial motor study recording the abductor hallucis brevis showed a normal amplitude, normal distal latency and borderline conduction velocity. Left sural sensory response showed a reduced amplitude, mildly prolonged peak latency and borderline conduction velocity. Left superficial peroneal sensory response showed a normal amplitude, normal peak latency and borderline conduction velocity. Left medial plantar sensory response showed an absent response. Needle EMG of the right lower extremity and paraspinal muscles was performed. Examination of other limbs was deferred at the patient's request. Sparse active denervation was present in the medial gastrocnemius muscle. The paraspinal muscles demonstrated increased insertional activity with occasional myotonic discharges. Fasciculation potentials were present in the tibialis anterior. Motor unit morphology, activation, and recruitment patterns were normal. Impression: This is an abnormal study. There is electrophysiologic evidence of length- dependent, axonal, sensorimotor peripheral polyneuropathy. The isolated denervation in the medial gastrocnemius muscle and increased insertional activi ty of the lower paraspinal muscles are suggestive of a superimposed, active, right S1 radiculopathy. Riky Carreno D.O.
== END ==
PROVIDERS: PCP Internal Medicine; Referring Provider Psychiatry & Neurology Neurology; Visit Provider Psychiatry & Neurology Neurology
DX: G62.9 Polyneuropathy, unspecified (principal)
CPT/HCPCS: 95886; 95911

== ENCOUNTER → 2021-01-21 11:27 | Outpatient (CLI) | payer MEDICAID, SELFPAY ==
[2020-12-25 16:56] VITALS: BMI 27.9
[2021-01-21 12:24] LABS: Hematocrit 45.1 % (40-54); Hemoglobin 15.3 g/dL (13.0-16.5); Mean Corp Hgb Conc 33.9 g/dL (32-36); Mean Corpuscular Hgb 32.9 pg (27.0-32.0); Mean Platelet Vol. 10.1 fl (6.2-12.0); Platelet Count 206 K/mm3 (150-450); RBC Distribution Width CV 13.1 % (11.6-14.6); RBC Distribution Width SD 46.6 fl (35.1-43.9); Red Blood Count 4.65 M/mm3 (4.6-6.2); White Blood Count 4.9 K/mm3 (4.4-11.0)
[2021-01-21 13:01] LABS: Vitamin B12 278 pg/mL (211-911)
[2021-01-21 13:19] LABS: ALB/GLOB Ratio 1.1 RATIO (0.9-2.4); AST(SGOT) 40 U/L (15-37); Alanine Aminotransfer ALT/SGPT 36 U/L (16-61); Albumin, Serum 4.1 g/dL (3.2-5.0); Alkaline Phosphatase 91 U/L (45-117); Anion Gap 10 (5-15); BUN 16 mg/dL (7-18); BUN/Creat Ratio 16.7 RATIO (10-20); Calcium,Total 8.7 mg/dL (8.5-10.1); Chloride 102 mmol/L (98-107); Creatinine, Serum 0.96 mg/dL (0.70-1.30); EST Glomerular Filtration Rate 88 mL/min (>60); Est Glom Filt Rate - Afr Amer 107 mL/min (>60); Globulin 3.9 g/dL (2.2-4.2); Glucose 92 mg/dL (74-106); Potassium 4.1 mmol/L (3.5-5.1); Sodium Level 136 mmol/L (136-145); Thyroid Stim Hormone (TSH) 5.79 uIU/mL (0.358-3.74)
[2021-01-26 14:09] LABS: Free Kappa Light Chains 16.7 mg/L (3.3-19.4); Free Lambda Light Chains 17.3 mg/L (5.7-26.3); Vitamin B1, Thiamine 153.5 nmol/L (66.5-200.0)
[2021-01-26 15:40] LABS: KEPPRA (LEVETIRACETAM) 30.5 ug/mL (10.0-40.0)
== END ==
PROVIDERS: Psychiatry & Neurology Neurology; PCP Internal Medicine; Visit Provider Nurse Practitioner Family
DX: G62.9 Polyneuropathy, unspecified (principal); R56.9 Unspecified convulsions
CPT/HCPCS: 80053; 80177; 82140; 82607; 82746; 83883; 84425; 84443; 85027

== ENCOUNTER 2021-09-30 10:56 | Emergency (ER) | payer SELFPAY ==
[2021-09-30 10:57] VITALS: BP 114/76; PULSE 90; RESP 18; TEMP 36.5; O2SAT 97; BMI 27.8
[2021-09-30 12:12] LABS: Absolute Lymphocyte Count 0.99 X10^3/uL (0.83-4.51); Absolute Neutrophil Count 3.1 X10^3/uL (2.0-7.7); Basophil# 0.02 X10^3/uL; Basophil% 0.4 % (0-1); Eosinophil# 0.04 X10^3/uL; Eosinophils% 0.9 % (0-5); Hematocrit 35.7 % (40-54); Lymphocyte # 0.99 X10^3/ul (0.83-4.51); Lymphocyte % 21.7 % (19-41); Mean Corp Hgb Conc 33.6 g/dL (32-36); Mean Corpuscular Hgb 33.8 pg (27.0-32.0); Mean Corpuscular Volume 100.6 fL (80-94); Mean Platelet Vol. 9.9 fl (6.2-12.0); Monocyte# 0.45 X10^3/uL; Monocyte% 9.9 % (0-10); NRBC Flagged by Analyzer 0 % (0-5); Neutrophil # 3.05 X10^3/uL (2.7-7.7); Neutrophil % 66.9 % (47-70); Platelet Count 115 K/mm3 (150-450); RBC Distribution Width SD 56.6 fl (35.1-43.9); Red Blood Count 3.55 M/mm3 (4.6-6.2); White Blood Count 4.6 K/mm3 (4.4-11.0)
--- NOTE | 2021-09-30 12:20 | EKG12_ITS ---
Test Reason : EDEMA Blood Pressure : / mmHG Vent. Rate : 077 BPM Atrial Rate : 077 BPM P-R Int : 180 ms QRS Dur : 086 ms QT Int : 374 ms P-R-T Axes : 044 029 017 degrees QTc Int : 423 ms Normal sinus rhythm Normal ECG Confirmed by KENZIE BRAVO, RYANN ([id number]), continuity editor GUILLERMO PALMA ([id number]) on 10/02/2021 9:15:44 AM Referred By: SARAI/DOLORES Confirmed By:RYANN ESPINO MD
--- NOTE | 2021-09-30 12:20 | VDLE_ITS ---
Reason For Study: Swelling, Pain RIGHT LEFT GSV is normal. GSV is normal. CFV is compressible, spontaneous, phasic, CFV is compressible, spontaneous, phasic, competent and demonstrates normal competent, and demonstrates normal augmentation. augmentation. FV is compressible, spontaneous, phasic, FV is compressible, spontaneous, phasic, competent and demonstrates normal competent and demonstrates normal augmentation. augmentation. POP V is compressible, spontaneous, phasic, POP V is compressible, spontaneous, phasic, competent and demonstrates normal competent and demonstrates normal augmentation. augmentation. T/P Trunk is compressible. T/P Trunk is compressible. PTV is compressible. PTV is compressible. RT PerV is compressible. LT PerV is compressible. Procedure This is a venous duplex using B-mode, color flow and spectral Doppler. Exam performed portable in ED. A preliminary report was called and/or faxed to Dr. Tidwell. VL/Venous Duplex US - Temo Extrem Interpretation Summary Deep veins of the lower extremities are bilaterally patent and compressible seg mentally. There is no evidence of deep vein thrombosis on either side. Valvular competence appears in tact within the proximal deep venous systems bilaterally. The great saphenous veins appear bila terally patent and compressible segmentally. Ordering Physician: John Tidwell Referring Physician: Kem Farmer Performed By: Estrella Cooper, RDCS, RVT
--- NOTE | 2021-09-30 12:21 | EDS_ITS ---
HPI History of Present Illness HPI Narrative: Patient presents with bilateral lower extremity swelling for the last few weeks. He states he saw his primary care physician 2 weeks ago because of the swelling. He has past medical history of peripheral neuropathy. He states that she told him that the swelling of his legs has nothing to do with his neuropathy. He does state that he is on his feet all day. He states that his feet have been swollen and hurting him because they are so swollen. He denies any chest pain or shortness of breath, no other symptoms. However, he states that his old physician and [facility] risk, who is friends with, was concerned about a blood clot in his legs. He denies any DVT or PE risk factors, and has had no trauma or immobility issues recently. Chief Complaint: Edema [facility] Medical History (Updated 09/30/21 @ 14:14 by John Tidwell MD) Arthritis Back pain Balance problem Brain atrophy Chest pain Diarrhea Fracture, ribs Glaucoma History of alcohol abuse Hyperlipemia Hypertension Knee pain Limb weakness Neuropathy of both feet Seizures Venous insufficiency of both lower extremities Home Medications acetaminophen 500 mg capsule 500 mg PO Q6H PRN #120 cap 06/23/19 [Rx Last Taken Unknown] naproxen 500 mg PO BID PRN #20 tab 11/30/19 [Rx Last Taken Unknown] levetiracetam 1,000 mg tablet 1,000 mg PO BID #180 tab 01/04/21 [Rx Last Taken Unknown] lactulose 10 gram/15 mL (15 mL) oral solution 15 ml PO DAILY #450 ml 03/04/21 [Rx Last Taken Unknown] carvedilol 25 mg tablet See Rx Instructions .ROUTE .COMPLEX #56 tab 06/14/21 [Rx Last Taken Unknown] fluticasone propionate 50 mcg/actuation nasal spray,suspension 2 spray INTRANASAL DAILY #15.8 g 06/14/21 [Rx Last Taken Unknown] ibuprofen 800 mg tablet 800 mg PO Q8 PRN #60 tab 06/14/21 [Rx Last Taken Unknown] lidocaine 5 % topical patch 1 patch TOPICAL DAILY PRN #30 ea 06/14/21 [Rx Last Taken Unknown] sildenafil 50 mg tablet 50 mg PO DAILY PRN #10 tab 06/14/21 [Rx Last Taken Unknown] thiamine HCl (vitamin B1) 250 mg tablet 250 mg PO DAILY #90 tab 06/14/21 [Rx Last Taken Unknown] duloxetine 30 mg capsule,delayed release 30 mg PO DAILY #7 cap 07/02/21 [Rx Last Taken Unknown] duloxetine 60 mg capsule,delayed release 60 mg PO DAILY #90 cap 07/02/21 [Rx Last Taken Unknown] gabapentin 600 mg tablet 300 mg PO BID #30 tab 08/21/21 [Rx Last Taken Unknown] levetiracetam 1,000 mg tablet 1,000 mg PO BID #60 tablet 08/21/21 [Rx Last Taken Unknown] levothyroxine 25 mcg tablet 25 mcg PO DAILY #90 tab 08/21/21 [Rx Last Taken Unknown] mecobalamin (vitamin B12) 1,000 mcg disintegrating tablet,sublingual 1,000 mcg SUBLINGUAL QHS #90 tab 08/21/21 [Rx Last Taken Unknown] compress.stocking,knee,reg,lrg #2 ea 09/18/21 [Rx Last Taken Unknown] meclizine 25 mg tablet 25 mg PO BID PRN #60 tab 09/18/21 [Rx Last Taken Unknown] multivitamin 1 tab PO QAM #90 tab 09/18/21 [Rx Last Taken Unknown] verapamil 180 mg tablet,extended release 180 mg PO QPM #90 tab 09/18/21 [Rx Last Taken Unknown] Allergy/AdvReac Type Severity Reaction Status Date / Time No Known Allergies Allergy Verified 09/30/21 10:59 Family History Father Alcoholism Heart disease Myocardial infarction Mother Arthritis Sister Depression Grandfather Myocardial infarction Grandfather CVA (cerebral vascular accident) Surgical History History of bilateral hip replacements History of surgical procedure on eye proper using laser History of tonsillectomy Social History Smoking Status: Current every day smoker tobacco type: cigarettes Smokeless tobacco user: chewing tobacco Electronic Cigarette Use: not used second hand exposure: Yes alcohol intake: former year quit: 2019 substance use type: does not use what type of physical activity do you participate in: walking frequency: daily ROS ROS ED ROS Narrative Constitutional: No fever, no chills. HEENT: No sore throat. No neck pain. No loss of vision. No rhinorrhea. Cardiovascular: No chest pain. No palpitations. Bilateral pedal edema. Respiratory: No cough, no shortness of breath. Abdominal: No abdominal pain. No nausea. No vomiting. Genitourinary: No dysuria. No hematuria. Musculoskeletal: No myalgias. No arthralgias. Neurologic: No headaches. No dizziness. No lightheadedness. Bilateral lower extremity neuropathy, chronic. Skin: No rash. No change in color. Psychiatric: No depression. No anxiety. EXAM Physical Exam Narrative Exam Narrative: Afebrile. Vital signs noted. HEENT: Normocephalic. Atraumatic. PERRL, EOMI. Neck soft and supple. No point tenderness or step off. Cardiovascular: Regular rate and rhythm. No murmurs, rubs, or gallops appreciated. Respiratory: No tachypnea. Lungs clear to auscultation bilaterally. Gastrointestinal: Abdomen soft, nontender, with normoactive bowel sounds. No rebound or guarding. Neurological: Awake. Alert. Nonfocal, nonlateralizing. Skin: No rash. Normal color. No pallor. Positive onychial mycosis bilateral feet. Musculoskeletal: Trace bilateral pedal edema. Full range of motion extremities. Const Vital Signs: 09/30/21 10:57 09/30/21 11:52 09/30/21 13:54 Temperature 97.7 F L Temperature Source Temporal Pulse Rate 90 Respiratory Rate 18 18 Respiratory Effort Normal Non-Labored Respiratory Pattern Normal Blood Pressure 114/76 Blood Pressure Mean 88 Pulse Ox 97 Oxygen Delivery Method Room Air MDM MDM MDM Narrative Medical decision making narrative: Comprehensive work-up was pursued. Protocol started by RN including laboratory work of CBC, BMP, and BNP. I added an EKG and high-sensitivity troponin. I will also obtain a chest x-ray along with bilateral lower extremity ultrasounds. CBC shows normal white count of 4.6, hemoglobin stable at 12.0. Electrolyte panel is grossly unremarkable. BNP is normal at 97. High-sensitivity troponin is also negative. EKG demonstrates normal sinus rhythm at 77 bpm without ectopy or acute ST changes. Ultrasounds were obtained of the bilateral lower extremities which shows no evidence of DVT. In review of his prior electronic medical record, he has venous insufficiency of both lower extremities. He was told to wear compression stockings and follow-up with his primary care provider. He will continue his medications for his peripheral neuropathy. I feel he can be discharged safely home with follow-up. Return instructions to the emergency department were reviewed. Disposition is discharged home in stable condition. Lab Data Attestation: I reviewed the patient's lab results. Labs: Laboratory Results - last 24 hr 09/30/21 09/30/21 09/30/21 12:00 12:00 12:00 WBC 4.6 RBC 3.55 L Hgb 12.0 L Hct 35.7 L MCV 100.6 H MCH 33.8 H MCHC 33.6 RDW Std Deviation 56.6 H RDW Coeff of Demond 15.0 H Plt Count 115 L MPV 9.9 Immature Gran % (Auto) 0.200 Neut % (Auto) 66.9 Lymph % (Auto) 21.7 [place] % (Auto) 9.9 Eos % (Auto) 0.9 Baso % (Auto) 0.4 Absolute Neuts (auto) 3.1 Absolute Lymphs (auto) 0.99 Nucleated RBC % 0 Sodium 137 Potassium 4.0 Chloride 105 Carbon Dioxide 27.0 Anion Gap 5 BUN 12 Creatinine 1.08 Estim Creat Clear Calc 89.81 Est GFR (MDRD) Af Amer 93 Est GFR (MDRD) Non-Af 77 BUN/Creatinine Ratio 11.1 Glucose 106 Calcium 8.6 Troponin I High Sens B-Natriuretic Peptide 97.8 09/30/21 12:00 WBC RBC Hgb Hct MCV MCH MCHC RDW Std Deviation RDW Coeff of Demond Plt Count MPV Immature Gran % (Auto) Neut % (Auto) Lymph % (Auto) [place] % (Auto) Eos % (Auto) Baso % (Auto) Absolute Neuts (auto) Absolute Lymphs (auto) Nucleated RBC % Sodium Potassium Chloride Carbon Dioxide Anion Gap BUN Creatinine Estim Creat Clear Calc Est GFR (MDRD) Af Amer Est GFR (MDRD) Non-Af BUN/Creatinine Ratio Glucose Calcium Troponin I High Sens 8 B-Natriuretic Peptide Radiography Diagnostic Testing: Clinical Impression(s) from Imaging Studies Chest X-Ray 09/30/21 12:24 IMPRESSION: Healed left-sided rib fractures. No acute abnormality seen. Electronically Signed: Kar Dave MD at 12:57 EST , Service support , Discharge Plan Triage Chief Complaint: Edema ED Provider: John Tidwell Dx/Rx/DC Orders Clinical Impression: Peripheral neuropathy, Peripheral edema Instructions: ED Peripheral Edema, Bilateral, ED Neuropathy, Peripheral Prescriptions: No Action acetaminophen 500 mg capsule 500 mg PO Q6H PRN (Reason: Pain) Qty: 120 RF: 1 duloxetine 30 mg capsule,delayed release(DR/EC) 30 mg PO DAILY Qty: 7 RF: 0 duloxetine 60 mg capsule,delayed release(DR/EC) 60 mg PO DAILY Qty: 90 RF: 0 gabapentin 600 mg tablet 300 mg PO BID Qty: 30 RF: 2 levetiracetam 1,000 mg tablet 1,000 mg PO BID Qty: 60 RF: 2 levothyroxine 25 mcg tablet 25 mcg PO DAILY Qty: 90 RF: 1 mecobalamin (vitamin B12) 1,000 mcg tablet,disintegrating 1,000 mcg sublingual QHS Qty: 90 RF: 2 (DME) compress.stocking,knee,reg,lrg Misc See Rx Instructions .MEDSUPPLY Qty: 2 RF: 1 verapamil 180 mg tablet extended release 180 mg PO QPM Qty: 90 RF: 3 meclizine 25 mg tablet 25 mg PO BID PRN (Reason: dizziness) Qty: 60 RF: 2 multivitamin Tablet 1 tab PO QAM Qty: 90 RF: 1 naproxen 500 MG tablet 500 mg PO BID PRN Qty: 20 RF: 0 levetiracetam 1,000 mg tablet 1,000 mg PO BID Qty: 180 RF: 0 lactulose 10 gram/15 mL (15 mL) solution 15 ml PO DAILY Qty: 450 RF: 1 carvedilol 25 mg tablet See Rx Instructions .ROUTE .COMPLEX Qty: 56 RF: 4 fluticasone propionate [Flonase Allergy Relief] 50 mcg/actuation spray,suspension 2 spray intranasal DAILY Qty: 15.8 RF: 1 ibuprofen 800 mg tablet 800 mg PO Q8 PRN (Reason: Pain) Qty: 60 RF: 1 lidocaine 5 % adhesive patch,medicated 1 patch TOPICAL DAILY PRN (Reason: rib pain) Qty: 30 RF: 0 sildenafil 50 mg tablet 50 mg PO DAILY PRN (Reason: sexual activity) Qty: 10 RF: 0 thiamine HCl (vitamin B1) 250 mg tablet 250 mg PO DAILY Qty: 90 RF: 3 Primary Care Provider: Kem Farmer Referrals: Kem Farmer MD [Primary Care Provider] - 10/03/21 Disposition Disposition: Home, Self Care
--- NOTE | 2021-09-30 12:24 | RAD_ITS ---
STUDY: X-RAY CHEST REASON FOR EXAM: Male, 51 years old. Ankle edema. TECHNIQUE: Single AP portable view of the chest. COMPARISON: Comparison is made with prior examination dated 06/10/2019. FINDINGS: The lungs are clear and expanded. There is no demonstrated pleural abnormality. Normal size heart. Normal mediastinum and jerry. Normal visualized pulmonary arteries. Normal visualized aortic arch and descending thoracic aorta. Normal visualized thoracic spine. Multiple healed left-sided rib fractures. There is no demonstrated abnormality of the visualized soft tissue structures of the upper abdomen. RAD/Chest 1 View (Portable) IMPRESSION: Healed left-sided rib fractures. No acute abnormality seen. Electronically Signed: Kar Dave MD at 12:57 EST , Service support ,
[2021-09-30 12:30] LABS: Anion Gap 5 (5-15); BUN 12 mg/dL (7-18); BUN/Creat Ratio 11.1 RATIO (10-20); Calcium,Total 8.6 mg/dL (8.5-10.1); Chloride 105 mmol/L (98-107); Creatinine, Serum 1.08 mg/dL (0.70-1.30); EST Glomerular Filtration Rate 77 mL/min (>60); Est Glom Filt Rate - Afr Amer 93 mL/min (>60); Estimated Creatinine Clearance 89.81 ml/min; Glucose 106 mg/dL (74-106); Sodium Level 137 mmol/L (136-145)
[2021-09-30 12:32] LABS: BNP,B-Type NATRIURETIC PEPTIDE 97.8 pg/mL (0-100)
[2021-09-30 12:49] LABS: Troponin-I HS 8 pg/mL (3.0-78.0)
[2021-09-30 13:54] VITALS: RESP 18
[2021-09-30 14:25] VITALS: PULSE 78; RESP 17; O2SAT 97
== END 2021-09-30 14:26 | disposition home or self-care (01) ==
PROVIDERS: Emergency Provider Emergency Medicine; PCP Internal Medicine
DX: G62.9 Polyneuropathy, unspecified (principal); R60.0 Localized edema; I87.2 Venous insufficiency (chronic) (peripheral); E78.5 Hyperlipidemia, unspecified; F17.210 Nicotine dependence, cigarettes, uncomplicated; I10 Essential (primary) hypertension
CPT/HCPCS: 71045; 80048; 83880; 84484; 85025; 93005; 93970; 99283; A4216

== ENCOUNTER 2021-11-24 12:42 | Emergency (ER) | payer BC, SELFPAY ==
[2021-11-24 12:43] VITALS: BP 150/86; PULSE 92; RESP 18; TEMP 36.8; O2SAT 99; BMI 27.1
--- NOTE | 2021-11-24 13:07 | RAD_ITS ---
STUDY: X-RAY - RIGHT FOOT CLINICAL: Male, 51 years old. fall, foot pain TECHNIQUE: 3 view(s) of the foot. COMPARISON: None. FINDINGS: Normal talus, calcaneus, and tarsal bones. Normal visualized subtalar, talonavicular, calcaneocuboid, tarsal and tarsometatarsal articulations. Acute slightly medially displaced spiral fracture the shaft of the fifth metatarsal bone. Normal metatarsophalangeal joint of the great toe. Bipartite tibial and fibular sesamoid bones. Normal interphalangeal joint of the great toe. Normal phalanges of the great toe. Normal second through fifth metatarsophalangeal joints. Normal interphalangeal joints and phalanges of the lesser toes. The soft tissue structures are unremarkable. RAD/Foot min 3 Views IMPRESSION: Acute medially displaced spiral fracture the shaft of the fifth metatarsal bone. Electronically Signed: Davin Romero MD at 13:32 EST Tel , Service support ,
[2021-11-24] MEDS: oxyCODONE 5 MG Tablet PO (16:24)
[2021-11-24 16:53] VITALS: BP 129/85; PULSE 73; RESP 15; O2SAT 98
--- NOTE | 2021-11-24 21:25 | ED.VIS.LOWEX ---
HPI History of Present Illness Chief Complaint: Fall Narrative Narrative: 51-year-old male presenting with with right foot pain. He states he tripped in the shower. He has pain with ambulation. He has bruising on the lateral aspect of the right foot. He denies ankle pain. He states he was otherwise healthy prior to this [facility] Medical History Arthritis Back pain Balance problem Brain atrophy Chest pain Diarrhea Fracture, ribs Glaucoma History of alcohol abuse Hyperlipemia Hypertension Knee pain Limb weakness Neuropathy of both feet Seizures Venous insufficiency of both lower extremities Home Medications acetaminophen 500 mg capsule 500 mg PO Q6H PRN #120 cap 06/23/19 [Rx Last Taken Unknown] naproxen 500 mg PO BID PRN #20 tab 11/30/19 [Rx Last Taken Unknown] levetiracetam 1,000 mg tablet 1,000 mg PO BID #180 tab 01/04/21 [Rx Last Taken Unknown] lactulose 10 gram/15 mL (15 mL) oral solution 15 ml PO DAILY #450 ml 03/04/21 [Rx Last Taken Unknown] carvedilol 25 mg tablet See Rx Instructions .ROUTE .COMPLEX #56 tab 06/14/21 [Rx Last Taken Unknown] fluticasone propionate 50 mcg/actuation nasal spray,suspension 2 spray INTRANASAL DAILY #15.8 g 06/14/21 [Rx Last Taken Unknown] ibuprofen 800 mg tablet 800 mg PO Q8 PRN #60 tab 06/14/21 [Rx Last Taken Unknown] lidocaine 5 % topical patch 1 patch TOPICAL DAILY PRN #30 ea 06/14/21 [Rx Last Taken Unknown] sildenafil 50 mg tablet 50 mg PO DAILY PRN #10 tab 06/14/21 [Rx Last Taken Unknown] thiamine HCl (vitamin B1) 250 mg tablet 250 mg PO DAILY #90 tab 06/14/21 [Rx Last Taken Unknown] duloxetine 30 mg capsule,delayed release 30 mg PO DAILY #7 cap 07/02/21 [Rx Last Taken Unknown] duloxetine 60 mg capsule,delayed release 60 mg PO DAILY #90 cap 07/02/21 [Rx Last Taken Unknown] gabapentin 600 mg tablet 300 mg PO BID #30 tab 08/21/21 [Rx Last Taken Unknown] levetiracetam 1,000 mg tablet 1,000 mg PO BID #60 tablet 08/21/21 [Rx Last Taken Unknown] levothyroxine 25 mcg tablet 25 mcg PO DAILY #90 tab 08/21/21 [Rx Last Taken Unknown] mecobalamin (vitamin B12) 1,000 mcg disintegrating tablet,sublingual 1,000 mcg SUBLINGUAL QHS #90 tab 08/21/21 [Rx Last Taken Unknown] compress.stocking,knee,reg,lrg #2 ea 09/18/21 [Rx Last Taken Unknown] meclizine 25 mg tablet 25 mg PO BID PRN #60 tab 09/18/21 [Rx Last Taken Unknown] multivitamin 1 tab PO QAM #90 tab 09/18/21 [Rx Last Taken Unknown] verapamil 180 mg tablet,extended release 180 mg PO QPM #90 tab 09/18/21 [Rx Last Taken Unknown] crutch #2 ea 11/24/21 [Rx Last Taken Unknown] oxycodone-acetaminophen [Percocet] 1 tab PO Q6H PRN 3 Days #12 tab 11/24/21 [Rx Last Taken Unknown] Allergy/AdvReac Type Severity Reaction Status Date / Time No Known Allergies Allergy Verified 11/24/21 12:45 Family History Father Alcoholism Heart disease Myocardial infarction Mother Arthritis Sister Depression Grandfather Myocardial infarction Grandfather CVA (cerebral vascular accident) Surgical History History of bilateral hip replacements History of surgical procedure on eye proper using laser History of tonsillectomy Social History Smoking Status: Current every day smoker tobacco type: cigarettes Smokeless tobacco user: chewing tobacco Electronic Cigarette Use: not used second hand exposure: Yes alcohol intake: former year quit: 2019 substance use type: does not use what type of physical activity do you participate in: walking frequency: daily ROS ROS ED Constitutional Constitutional ED: Denies chills, fever(s) or sweats Eyes Eyes: Denies blurry vision or change in vision ENT ENT ED: Denies ear pain or sore throat Cardiovascular Cardiovascular: Denies chest pain, palpitations or racing heartbeat Respiratory/Chest Respiratory/Chest: Denies cough, dyspnea or sputum Gastrointestinal Gastrointestinal: Denies abdominal pain, constipation, diarrhea, nausea or vomiting Genitourinary Genitourinary ED: Denies dysuria, hematuria or urinary frequency Musculoskeletal Musculoskeletal: Reports other Details: Right foot pain ; Denies arthralgias, myalgias or neck pain Integumentary Denies abscess, Abrasions or rash Neurologic Neurologic: Denies headache(s), paresthesias or weakness Psychiatric Psychiatric: Denies anxiety, depression, suicidal ideation or suicidal thoughts Endocrine Endocrinology: Denies polydipsia or polyuria EXAM Physical Exam Const Vital Signs: 11/24/21 12:43 11/24/21 16:53 Temperature 98.2 F Temperature Source Temporal Pulse Rate 92 73 Respiratory Rate 18 15 Blood Pressure 150/86 H 129/85 H Blood Pressure Mean 107 Pulse Ox 99 98 Oxygen Delivery Method Room Air Positive well nourished General Appearance ED: NAD HEENT Reports moist mucous membranes normocephalic Eyes PERRL Neck full ROM Resp normal respiratory effort and clear to auscultation bilaterally Cardio regular rate and regular rhythm Extremity Extremity Narrative: Tenderness palpation right side of the foot distally. No pain at the base of the fifth metatarsal. Right foot neurovascular intact brisk cap refill to all 5 toes. There are some bruising on the lateral aspect of the foot but this is not tender. Neuro oriented x3 Sensorium / Orientation: alert MDM MDM MDM Narrative Medical decision making narrative: Patient presenting with right foot pain. I obtained an x-ray of the right foot and there is a displaced spiral fracture of the right fifth metatarsal. This is not proximal. Patient given oxycodone for pain. I spoke with Dr. Menjivar who stated that the patient could be in a walking boot and nonweightbearing with crutches. I was unable to order a walking boot in the ER because there were none available. There is also no crutches in his size. I ordered crutches for him so that somebody can go pick them up and bring them to him. We did look further for another boot that could fit him but could not find him one so we did reach out to the supply store so that we can order this for him. He was to go pick it up. Patient will be discharged in a postop shoe nonweightbearing and then pick this up at the supply store that he will still be nonweightbearing once he gets this on. He will follow up with Dr. Menjivar. Impression: 1. right fifth metatarsal fracture Radiography Diagnostic Testing: Clinical Impression(s) from Imaging Studies Foot X-Ray 11/24/21 13:07 IMPRESSION: Acute medially displaced spiral fracture the shaft of the fifth metatarsal bone. Electronically Signed: Davin Romero MD at 13:32 EST Tel , Service support , Discharge Plan Triage Chief Complaint: Fall Other Complaint: Lower Extremity Injury ED Provider: Henok Godfrey Dx/Rx/DC Orders Instructions: ED Fracture, Foot Prescriptions: New oxycodone-acetaminophen [Percocet] 5-325 mg tablet 1 tab PO Q6H PRN (Reason: pain) 3 Days Qty: 12 RF: 0 (DME) crutch Misc See Rx Instructions .ROUTE .MEDSUPPLY Qty: 2 RF: 0 No Action acetaminophen 500 mg capsule 500 mg PO Q6H PRN (Reason: Pain) Qty: 120 RF: 1 duloxetine 30 mg capsule,delayed release(DR/EC) 30 mg PO DAILY Qty: 7 RF: 0 duloxetine 60 mg capsule,delayed release(DR/EC) 60 mg PO DAILY Qty: 90 RF: 0 gabapentin 600 mg tablet 300 mg PO BID Qty: 30 RF: 2 levetiracetam 1,000 mg tablet 1,000 mg PO BID Qty: 60 RF: 2 levothyroxine 25 mcg tablet 25 mcg PO DAILY Qty: 90 RF: 1 mecobalamin (vitamin B12) 1,000 mcg tablet,disintegrating 1,000 mcg sublingual QHS Qty: 90 RF: 2 (DME) compress.stocking,knee,reg,lrg Misc See Rx Instructions .MEDSUPPLY Qty: 2 RF: 1 verapamil 180 mg tablet extended release 180 mg PO QPM Qty: 90 RF: 3 meclizine 25 mg tablet 25 mg PO BID PRN (Reason: dizziness) Qty: 60 RF: 2 multivitamin Tablet 1 tab PO QAM Qty: 90 RF: 1 naproxen 500 MG tablet 500 mg PO BID PRN Qty: 20 RF: 0 levetiracetam 1,000 mg tablet 1,000 mg PO BID Qty: 180 RF: 0 lactulose 10 gram/15 mL (15 mL) solution 15 ml PO DAILY Qty: 450 RF: 1 carvedilol 25 mg tablet See Rx Instructions .ROUTE .COMPLEX Qty: 56 RF: 4 fluticasone propionate [Flonase Allergy Relief] 50 mcg/actuation spray,suspension 2 spray intranasal DAILY Qty: 15.8 RF: 1 ibuprofen 800 mg tablet 800 mg PO Q8 PRN (Reason: Pain) Qty: 60 RF: 1 lidocaine 5 % adhesive patch,medicated 1 patch TOPICAL DAILY PRN (Reason: rib pain) Qty: 30 RF: 0 sildenafil 50 mg tablet 50 mg PO DAILY PRN (Reason: sexual activity) Qty: 10 RF: 0 thiamine HCl (vitamin B1) 250 mg tablet 250 mg PO DAILY Qty: 90 RF: 3 Primary Care Provider: Kem Farmer Referrals: Kem Farmer MD [Primary Care Provider] - Brian Menjivar DPM [STAFF PHYSICIAN] - As soon as possible Disposition Disposition: Home, Self Care Discharge Date/Time: 11/24/21 16:54
== END 2021-11-24 16:54 | disposition home or self-care (01) ==
PROVIDERS: Emergency Provider Student in an Organized Health Care Education/Training Program; PCP Internal Medicine; Visit Provider Student in an Organized Health Care Education/Training Program
DX: S92.351A Displaced fracture of fifth metatarsal bone, right foot, initial encounter for closed fracture (principal); E78.5 Hyperlipidemia, unspecified; F17.210 Nicotine dependence, cigarettes, uncomplicated; I10 Essential (primary) hypertension; S90.31XA Contusion of right foot, initial encounter; W01.0XXA Fall on same level from slipping, tripping and stumbling without subsequent striking against object, initial encounter; G62.9 Polyneuropathy, unspecified; I87.2 Venous insufficiency (chronic) (peripheral)
CPT/HCPCS: 73630; 99283

== ENCOUNTER → 2022-04-15 | Outpatient (CLI) | payer SELFPAY ==
[2022-04-15 15:33] LABS: Absolute Lymphocyte Count 1.18 X10^3/uL (0.83-4.51); Absolute Neutrophil Count 3.4 X10^3/uL (2.0-7.7); Basophil# 0.04 X10^3/uL; Basophil% 0.8 % (0-1); Eosinophil# 0.09 X10^3/uL; Eosinophils% 1.8 % (0-5); Hematocrit 42.3 % (40-54); Hemoglobin 14.6 g/dL (13.0-16.5); Lymphocyte # 1.18 X10^3/ul (0.83-4.51); Lymphocyte % 23.4 % (19-41); Mean Corp Hgb Conc 34.5 g/dL (32-36); Mean Corpuscular Hgb 34.2 pg (27.0-32.0); Mean Corpuscular Volume 99.1 fL (80-94); Mean Platelet Vol. 9.3 fl (6.2-12.0); Monocyte# 0.34 X10^3/uL; Monocyte% 6.7 % (0-10); NRBC Flagged by Analyzer 0 % (0-5); Neutrophil # 3.38 X10^3/uL (2.7-7.7); Neutrophil % 67.1 % (47-70); Platelet Count 108 K/mm3 (150-450); RBC Distribution Width CV 13.6 % (11.6-14.6); RBC Distribution Width SD 50.1 fl (35.1-43.9); Red Blood Count 4.27 M/mm3 (4.6-6.2)
[2022-04-15 16:04] LABS: ALB/GLOB Ratio 0.8 RATIO (0.9-2.4); AST(SGOT) 140 U/L (15-37); Alanine Aminotransfer ALT/SGPT 63 U/L (16-61); Albumin, Serum 3.8 g/dL (3.2-5.0); Alkaline Phosphatase 125 U/L (45-117); Anion Gap 6 (5-15); BUN 5 mg/dL (7-18); BUN/Creat Ratio 6.9 RATIO (10-20); Calcium,Total 8.7 mg/dL (8.5-10.1); Chloride 103 mmol/L (98-107); Creatinine, Serum 0.72 mg/dL (0.70-1.30); EST Glomerular Filtration Rate 122 mL/min (>60); Est Glom Filt Rate - Afr Amer 147 mL/min (>60); Globulin 4.7 g/dL (2.2-4.2); Glucose 98 mg/dL (74-106); Potassium 4.2 mmol/L (3.5-5.1); Protein, Total 8.5 g/dL (6.4-8.2); Sodium Level 137 mmol/L (136-145); T4 Free Direct 0.96 ng/dL (0.76-1.46); Thyroid Stim Hormone (TSH) 2.97 uIU/mL (0.358-3.74)
== END | disposition home or self-care (01) ==
LOC: BIMLAB 14:42
PROVIDERS: PCP Internal Medicine; Referring Provider Internal Medicine; Visit Provider Internal Medicine
DX: R94.6 Abnormal results of thyroid function studies (principal); I10 Essential (primary) hypertension
CPT/HCPCS: 36415; 80053; 84439; 84443; 85025

== ENCOUNTER 2022-07-14 08:34 | Emergency (ER) | payer SELFPAY ==
[2022-07-14 08:35] VITALS: BP 140/105; PULSE 93; RESP 16; TEMP 36.6; O2SAT 96; BMI 29.8
--- NOTE | 2022-07-14 08:44 | EDS_ITS ---
HPI History of Present Illness Chief Complaint: Chest Other Informant: patient Narrative Narrative: 52-year-old male with a history of seizure disorder states that about 1 week ago he started to come down the stairs to go check his mail. He states that on the first after he began to have a seizure and fell all the way down the stairs. He states that when he woke up he crawled back up the stairs and laid down. He notes abrasions to the bilateral knees and elbows. He notes forehead hematoma that has improved. No vomiting. He notes posterior right lower rib pain. He states that he has had prior broken ribs and this feels similar. He denies any hematuria or hemoptysis. No fevers. [facility] Medical History Abdominal pain Abnormal thyroid function test Alcoholic hepatitis Arthritis Back pain Balance problem Brain atrophy Chest pain Diarrhea Fracture, ribs Glaucoma History of alcohol abuse Hyperlipemia Hypertension Knee pain Limb weakness Neuropathy of both feet Obesity (BMI 30.0-34.9) Seizures Thrombocytopenia Venous insufficiency of both lower extremities Home Medications compress.stocking,knee,reg,lrg #2 ea 09/18/21 [Rx Last Taken Unknown] ibuprofen 800 mg tablet 800 mg PO Q8 PRN Pain #60 tabs 01/08/22 [Rx Last Taken Unknown] levetiracetam 1,000 mg tablet 1,000 mg PO BID #180 tabs 04/23/22 [Rx Last Taken Unknown] meclizine 25 mg tablet 25 mg PO BID PRN dizziness #60 tabs 04/23/22 [Rx Last Taken Unknown] carvedilol 25 mg tablet 25 mg PO BID #180 tabs 04/24/22 [Rx Last Taken Unknown] levothyroxine 25 mcg tablet 25 mcg PO DAILY #90 tabs 04/24/22 [Rx Last Taken Unknown] sildenafil 50 mg tablet 50 mg PO DAILY PRN sexual activity #10 tabs 04/24/22 [Rx Last Taken Unknown] gabapentin 600 mg tablet 600 mg PO BID #60 tabs 06/17/22 [Rx Last Taken Unknown] lidocaine 5 % topical patch 1 patch topical DAILY PRN rib pain #30 ea 07/10/22 [Rx Last Taken Unknown] oxycodone-acetaminophen 5 mg-325 mg tablet 1 tab PO Q6H PRN PRN pain 5 days #20 TABLETS 07/14/22 [Rx Last Taken Unknown] Allergy/AdvReac Type Severity Reaction Status Date / Time No Known Allergies Allergy Verified 07/14/22 09:01 Family History Father Alcoholism Heart disease Myocardial infarction Mother Arthritis Sister Depression Grandfather Myocardial infarction Grandfather CVA (cerebral vascular accident) Surgical History History of bilateral hip replacements History of surgical procedure on eye proper using laser History of tonsillectomy Social History Smoking Status: Never smoker Smokeless tobacco user: chewing tobacco Electronic Cigarette Use: not used second hand exposure: Yes alcohol intake: current alcohol intake frequency: 3 or more drinks per day Alcohol type: beer details: 4-6 beers a day substance use type: does not use what type of physical activity do you participate in: walking frequency: daily ROS ROS ED Constitutional Constitutional ED: Denies chills or weight loss Eyes Eyes: Denies change in vision or diplopia ENT ENT ED: Denies ear pain, rhinorrhea or sore throat Cardiovascular Cardiovascular: Reports chest pain; Denies orthopnea, palpitations or racing heartbeat Respiratory/Chest Respiratory/Chest: Denies cough, dyspnea or orthopnea Gastrointestinal Gastrointestinal: Denies abdominal pain, diarrhea, nausea or vomiting Genitourinary Genitourinary ED: Denies dysuria, hematuria or urinary frequency Musculoskeletal Musculoskeletal: Reports back pain; Denies arthralgias or myalgias Integumentary Reports Abrasions; Denies abscess or rash Neurologic Neurologic: Reports headache(s); Denies weakness Psychiatric Psychiatric: Denies anxiety, depression, suicidal ideation or suicidal thoughts Endocrine Endocrinology: Denies polydipsia, polyphagia or polyuria Allergic/Immunologic Allergic/Immunologic ED: Denies mouth swelling, tongue swelling or urticaria EXAM Physical Exam Const Vital Signs: 07/14/22 08:35 07/14/22 08:57 Temperature 97.8 F Temperature Source Temporal Pulse Rate 93 Respiratory Rate 16 Respiratory Effort Normal Non-Labored Respiratory Pattern Normal Blood Pressure 140/105 H Blood Pressure Mean 116 Pulse Ox 96 Oxygen Delivery Method Room Air Positive well nourished and well developed General Appearance ED: well developed HEENT Reports normocephalic, head/scalp atraumatic and moist mucous membranes Eyes PERRL and EOMs intact bilaterally Neck full ROM, no lymphadenopathy, supple and no JVD Resp normal respiratory effort and clear to auscultation bilaterally Cardio regular rate, regular rhythm and no murmurs GI normal to inspection, nondistended, normoactive bowel sounds and non-tender Palpation: soft Back/Spine Back/Spine Narrative: Patient has painful range of motion. He has tenderness to palpation over the posterior right lower ribs. I do not appreciate ecchymosis or crepitance. Extremity normal to inspection General Extremety ED: Negative for edema General Extremity: Negative for edema Neuro oriented x3 and CN's II-XII intact bilaterally Sensorium / Orientation: alert Motor Exam: strength 5/5 throughout Psych mental status grossly normal Mood & Affect: Negative for depressed or tearful Skin no rashes or lesions noted Skin Narrative: There are abrasions that are scabbed over on the bilateral knees and elbows. MDM MDM MDM Narrative Medical decision making narrative: CT of the brain is negative for intracranial hemorrhage or fracture. CT of the chest demonstrates posterior right rib fracture. No obvious pneumothorax or pulmonary contusion seen. I will write for the patient have pain medication and work restrictions. Discharge Plan Triage Chief Complaint: Chest Other ED Provider: Roderick Alarcon Dx/Rx/DC Orders Clinical Impression: Right rib fracture, Epilepsy Instructions: Rib Fracture (Broken Rib) Prescriptions: New oxycodone-acetaminophen [oxycodone-acetaminophen] 5-325 mg tablet 1 tab PO Q6H PRN PRN (Reason: pain) 5 Days Qty: 20 0RF No Action (DME) compress.stocking,knee,reg,lrg Misc See Rx Instructions .MEDSUPPLY Qty: 2 1RF Rx Instructions: wear daily for venous insufficiency 20-30 mmHg ibuprofen 800 mg tablet 800 mg PO Q8 PRN (Reason: Pain) Qty: 60 1RF levetiracetam 1,000 mg tablet 1,000 mg PO BID Qty: 180 1RF meclizine 25 mg tablet 25 mg PO BID PRN (Reason: dizziness) Qty: 60 2RF carvedilol 25 mg tablet 25 mg PO BID Qty: 180 3RF sildenafil 50 mg tablet 50 mg PO DAILY PRN (Reason: sexual activity) Qty: 10 0RF Rx Instructions: administer 30 minutes to 4 hours before activity levothyroxine 25 mcg tablet 25 mcg PO DAILY Qty: 90 3RF gabapentin 600 mg tablet 600 mg PO BID Qty: 60 2RF Rx Instructions: TAKE 1 TABLET BY MOUTH TWICE A DAY lidocaine 5 % adhesive patch,medicated 1 patch TOPICAL DAILY PRN (Reason: rib pain) Qty: 30 1RF Rx Instructions: leave on most painful area for 12 hrs Primary Care Provider: Kem Farmer Referrals: Kem Farmer MD [Primary Care Provider] - 10-14 Days if not better Disposition Disposition: Home, Self Care
--- NOTE | 2022-07-14 08:44 | CT_ITS ---
STUDY: CT CHEST WITHOUT CONTRAST REASON FOR EXAM: Male, 52 years old. Right Rib pain following Trauma RADIATION DOSAGE (If Supplied By Facility): CTDIvol = ( 19.06 ) mGy, DLP = ( 604.85 ) mGycm TECHNIQUE: Transaxial imaging was performed without the administration of intravenous contrast material. Multiplanar coronal and sagittal images were reformatted. Individualized dose optimization techniques were used for this CT. COMPARISON: No relevant priors. FINDINGS: CHEST Focal calcific scarring in the anterior aspect of the right upper lobe. There is no demonstrated pleural abnormality. There are calcifications of the coronary arteries. There are multiple small lymph nodes within the mediastinum, which are normal in size and morphology most compatible with reactive lymph hyperplasia. Calcified right hilar lymph nodes. Normal unenhanced pulmonary arteries. Normal aorta arch and descending thoracic aorta. There are multi-level degenerative changes of the thoracic spine. Mild degree of loss of height of mid dorsal vertebrae. Healed left rib fractures. Diffuse fatty infiltration of the liver. CT/Chest without Contrast IMPRESSION: Focal linear calcific scarring in the right upper lobe. No acute abnormality is seen. Electronically Signed: Kar Dave MD at 9:32 EDT ,
--- NOTE | 2022-07-14 08:44 | CT_ITS ---
STUDY: CT BRAIN WITHOUT CONTRAST REASON FOR EXAM: Male, 52 years old. Add injury due to a recent fall. RADIATION DOSAGE (If Supplied By Facility): CTDIvol = ( 44.99 ) mGy, DLP = ( 812.98 ) mGycm TECHNIQUE: Transaxial CT imaging of the brain was performed without administration of intravenous contrast material. Individualized dose optimization techniques were used for this CT. COMPARISON: Comparison is made with prior study dated 06/09/2019. FINDINGS: Normal soft tissue structures. Normal calvarium. There is mild cerebral atrophy with widening of the extra-axial spaces and ventricular dilatation. Normal white matter tracts of the cerebral hemispheres. Normal basal ganglia and thalami. Normal brainstem. There is mild cerebellar atrophy. There is no intracranial hemorrhage. There are no findings of an acute ischemic infarction. Partial opacification of the left maxillary sinus. CT/Brain/Head without Contrast IMPRESSION: Chronic involutional changes of the brain. Partial opacification of the left maxillary sinus. Electronically Signed: Kar Dave MD at 9:26 EDT ,
== END 2022-07-14 09:40 | disposition home or self-care (01) ==
PROVIDERS: Emergency Provider Emergency Medicine; PCP Internal Medicine; Visit Provider Emergency Medicine
DX: G40.909 Epilepsy, unspecified, not intractable, without status epilepticus (principal); S00.83XA Contusion of other part of head, initial encounter; I10 Essential (primary) hypertension; E78.5 Hyperlipidemia, unspecified; S80.212A Abrasion, left knee, initial encounter; S50.311A Abrasion of right elbow, initial encounter; S80.211A Abrasion, right knee, initial encounter; S50.312A Abrasion of left elbow, initial encounter; S22.31XA Fracture of one rib, right side, initial encounter for closed fracture; W10.9XXA Fall (on) (from) unspecified stairs and steps, initial encounter
CPT/HCPCS: 70450; 71250; 99282

== ENCOUNTER → 2023-06-18 | Outpatient (CLI) | payer SELFPAY ==
[2023-06-18 16:51] LABS: Absolute Neutrophil Count 4.9 X10^3/uL (2.0-7.7); Basophil# 0.03 X10^3/uL; Basophil% 0.5 % (0-1); Eosinophil# 0.09 X10^3/uL; Eosinophils% 1.4 % (0-5); Hematocrit 34.9 % (40-54); Hemoglobin 12.4 g/dL (13.0-16.5); Lymphocyte % 13.9 % (19-41); Mean Corp Hgb Conc 35.5 g/dL (32-36); Mean Corpuscular Hgb 36.9 pg (27.0-32.0); Mean Corpuscular Volume 103.9 fL (80-94); Mean Platelet Vol. 10.2 fl (6.2-12.0); Monocyte% 7.7 % (0-10); NRBC Flagged by Analyzer 0 % (0-5); Neutrophil # 4.94 X10^3/uL (2.7-7.7); Platelet Count 114 K/mm3 (150-450); RBC Distribution Width CV 13.6 % (11.6-14.6); RBC Distribution Width SD 52.1 fl (35.1-43.9); Red Blood Count 3.36 M/mm3 (4.6-6.2); White Blood Count 6.5 K/mm3 (4.4-11.0)
[2023-06-18 17:37] LABS: ALB/GLOB Ratio 0.6 RATIO (0.9-2.4); AST(SGOT) 98 U/L (15-37); Alanine Aminotransfer ALT/SGPT 49 U/L (16-61); Albumin, Serum 2.8 g/dL (3.2-5.0); Alkaline Phosphatase 115 U/L (45-117); Anion Gap 7 (5-15); BUN 4 mg/dL (7-18); BUN/Creat Ratio 4.3 RATIO (10-20); Calcium,Total 8.9 mg/dL (8.5-10.1); Chloride 97 mmol/L (98-107); Creatinine, Serum 0.92 mg/dL (0.70-1.30); EST Glomerular Filtration Rate 91 mL/min (>60); Est Glom Filt Rate - Afr Amer 110 mL/min (>60); Glucose 133 mg/dL (74-106); Potassium 3.4 mmol/L (3.5-5.1); Protein, Total 7.8 g/dL (6.4-8.2); Sodium Level 130 mmol/L (136-145)
== END | disposition home or self-care (01) ==
LOC: BIMLAB 15:00
PROVIDERS: PCP Internal Medicine; Referring Provider Internal Medicine; Visit Provider Internal Medicine
DX: K70.10 Alcoholic hepatitis without ascites (principal)
CPT/HCPCS: 36415; 80053; 85025

== ENCOUNTER → 2023-06-19 | Outpatient (CLI) | payer SELFPAY ==
[2023-06-19 16:42] LABS: International Normalized Ratio 1.5; Prothrombin Time (Protime)PT. 18.3 SECONDS (11.7-14.9)
== END | disposition home or self-care (01) ==
LOC: BIMLAB 15:50
PROVIDERS: PCP Internal Medicine; Referring Provider Internal Medicine; Visit Provider Internal Medicine
DX: K70.10 Alcoholic hepatitis without ascites (principal)
CPT/HCPCS: 36415; 82140; 85610

== ENCOUNTER → 2023-07-15 | Outpatient (CLI) | payer MEDICAID, SELFPAY ==
[2023-07-15 12:17] LABS: Absolute Lymphocyte Count 0.92 X10^3/uL (0.83-4.51); Absolute Neutrophil Count 3.5 X10^3/uL (2.0-7.7); Basophil# 0.02 X10^3/uL; Basophil% 0.4 % (0-1); Eosinophil# 0.09 X10^3/uL; Eosinophils% 1.8 % (0-5); Hematocrit 32.8 % (40-54); Hemoglobin 11.4 g/dL (13.0-16.5); Lymphocyte # 0.92 X10^3/ul (0.83-4.51); Lymphocyte % 18.6 % (19-41); Mean Corp Hgb Conc 34.8 g/dL (32-36); Mean Corpuscular Hgb 37.1 pg (27.0-32.0); Mean Corpuscular Volume 106.8 fL (80-94); Mean Platelet Vol. 10.1 fl (6.2-12.0); Monocyte% 8.1 % (0-10); NRBC Flagged by Analyzer 0 % (0-5); Neutrophil # 3.49 X10^3/uL (2.7-7.7); Neutrophil % 70.7 % (47-70); Platelet Count 134 K/mm3 (150-450); RBC Distribution Width SD 59.2 fl (35.1-43.9); Red Blood Count 3.07 M/mm3 (4.6-6.2); White Blood Count 4.9 K/mm3 (4.4-11.0)
[2023-07-15 13:28] LABS: ALB/GLOB Ratio 0.6 RATIO (0.9-2.4); AST(SGOT) 76 U/L (15-37); Alanine Aminotransfer ALT/SGPT 33 U/L (16-61); Albumin, Serum 2.6 g/dL (3.2-5.0); Alkaline Phosphatase 118 U/L (45-117); Anion Gap 6 (5-15); BUN 3 mg/dL (7-18); BUN/Creat Ratio 3.7 RATIO (10-20); Calcium,Total 8.9 mg/dL (8.5-10.1); Chloride 98 mmol/L (98-107); Creatinine, Serum 0.81 mg/dL (0.70-1.30); EST Glomerular Filtration Rate 106 mL/min (>60); Est Glom Filt Rate - Afr Amer 128 mL/min (>60); Globulin 4.5 g/dL (2.2-4.2); Glucose 139 mg/dL (74-106); Potassium 3.3 mmol/L (3.5-5.1); Protein, Total 7.1 g/dL (6.4-8.2); Sodium Level 133 mmol/L (136-145)
== END | disposition home or self-care (01) ==
LOC: BIMLAB 10:13
PROVIDERS: PCP Internal Medicine; Visit Provider Internal Medicine
DX: K70.10 Alcoholic hepatitis without ascites (principal)
CPT/HCPCS: 36415; 80053; 82140; 85025

== ENCOUNTER 2023-07-16 12:12 | Inpatient (IN) | payer MEDICAID, SELFPAY ==
[2023-07-16 12:13] VITALS: BP 113/80; PULSE 99; RESP 18; TEMP 36.2; O2SAT 98; BMI 29.7
--- NOTE | 2023-07-16 13:15 | CT_ITS ---
STUDY: CT ABDOMEN AND PELVIS WITH CONTRAST REASON FOR EXAM: Male, 53 years old. pain, ascites RADIATION DOSAGE (If Supplied By Facility): CTDIvol = ( 19.95 ) mGy, DLP = ( 1717.41 ) mGycm TECHNIQUE: Transaxial images were obtained from the dome of the diaphragm to the symphysis pubis without oral contrast. IV 100mL [id number]-[id number] was administered. Sagittal and coronal images were reconstructed. Individualized dose optimization techniques were used for this CT. COMPARISON: None. FINDINGS: Small left effusion is present. The visualized portions of the heart are within normal limits. There is a diffuse contour abnormality of the liver consistent with cirrhotic changes. Layering stones and sludge within the gallbladder lumen are present with no evidence of wall thickening. There is moderate splenomegaly. Normal pancreas. Normal bilateral adrenal glands. Normal right kidney. Normal left kidney. Normal visualized stomach. Normal small intestine. Normal colon. The appendix is visualized and appears normal. Normal abdominal aorta. There is demonstrated splenorenal varices and recannulization of the umbilical artery consistent with underlying portal hypertension. Normal inferior vena cava. Normal retroperitoneum. There is moderate scattered abdominal ascites throughout the upper abdomen extending to the pelvis. Normal urinary bladder. Normal abdominal wall. There are diffuse degenerative changes of the visualized lumbar spine. CT/Abdomen/Pelvis W IV Cont ONLY IMPRESSION: 1. Moderate cirrhotic liver morphology with sequela of portal hypertension/splenomegaly and moderate abdominal ascites as above. No evidence of underlying obstruction. Electronically Signed: Moi Pack DO at 15:28 EDT ,
[2023-07-16 13:33] LABS: Absolute Lymphocyte Count 0.78 X10^3/uL (0.83-4.51); Absolute Neutrophil Count 2.9 X10^3/uL (2.0-7.7); Basophil# 0.02 X10^3/uL; Basophil% 0.5 % (0-1); Eosinophil# 0.07 X10^3/uL; Eosinophils% 1.7 % (0-5); Hematocrit 31.1 % (40-54); Lymphocyte # 0.78 X10^3/ul (0.83-4.51); Lymphocyte % 19.1 % (19-41); Mean Corp Hgb Conc 35.4 g/dL (32-36); Mean Corpuscular Hgb 37.4 pg (27.0-32.0); Mean Corpuscular Volume 105.8 fL (80-94); Mean Platelet Vol. 9.8 fl (6.2-12.0); Monocyte# 0.32 X10^3/uL; Monocyte% 7.8 % (0-10); NRBC Flagged by Analyzer 0 % (0-5); Neutrophil # 2.88 X10^3/uL (2.7-7.7); Neutrophil % 70.4 % (47-70); Platelet Count 129 K/mm3 (150-450); RBC Distribution Width CV 14.7 % (11.6-14.6); RBC Distribution Width SD 56.9 fl (35.1-43.9); Red Blood Count 2.94 M/mm3 (4.6-6.2); White Blood Count 4.1 K/mm3 (4.4-11.0)
[2023-07-16 13:43] LABS: International Normalized Ratio 1.8; Prothrombin Time (Protime)PT. 21.2 SECONDS (11.7-14.9)
[2023-07-16 13:44] LABS: Partial Thromboplast Time 48.8 Seconds (24.1-36.2)
[2023-07-16 13:49] LABS: AST(SGOT) 70 U/L (15-37); Alanine Aminotransfer ALT/SGPT 30 U/L (16-61); Albumin, Serum 2.4 g/dL (3.2-5.0); Alkaline Phosphatase 111 U/L (45-117); Anion Gap 8 (5-15); BUN 3 mg/dL (7-18); BUN/Creat Ratio 4.1 RATIO (10-20); Bilirubin, Direct 2.88 mg/dL (0.00-0.30); Calcium,Total 8.5 mg/dL (8.5-10.1); Chloride 97 mmol/L (98-107); Creatinine, Serum 0.73 mg/dL (0.70-1.30); EST Glomerular Filtration Rate 120 mL/min (>60); Est Glom Filt Rate - Afr Amer 145 mL/min (>60); Estimated Creatinine Clearance 129.92 ml/min; Globulin 4.4 g/dL (2.2-4.2); Glucose 137 mg/dL (74-106); Lipase 42 U/L (13-75); Potassium 3.1 mmol/L (3.5-5.1); Protein, Total 6.8 g/dL (6.4-8.2); Sodium Level 134 mmol/L (136-145)
--- NOTE | 2023-07-16 15:41 | PCM.HP.STD ---
HPI - General General Date of Admission: 07/16/23 Date of Service: 07/16/23 Chief Complaint: Alcohol hepatitis HPI Narrative ALYSSA HAMLIN is a 53 M with history of alcohol use disorder, seizure disorder and hypothyroidism who presented to the [facility] ED on 07/16/2023 with worsening abdominal distention. Patient seen at bedside. Sitting comfortably in bed, conversing normally, no acute distress. Does appear somewhat fatigued. Patient states that he has noticed worsening abdominal distention for the last several weeks. Has extensive alcohol use history, used to drink a 30 pack of beer daily for several years and now drinks 1 large glass of wine daily. Stop drinking beer a few months back because he could not tolerate it any longer. Patient denies any previous history of liver issues that he is aware of. Patient lives at home on his own, has been able to take care of everything for himself. He denies any fevers or chills. He denies any abdominal pain at this time. Denies any chest pain or shortness of breath. No other acute concerns. Labs in the ED were notable for total bilirubin of 11, sodium 134, potassium 3.1, creatinine 0.73, albumin 2.4. CT abdomen pelvis with IV contrast showed moderate cirrhotic liver morphology with sequela of portal hypertension, along with moderate abdominal ascites. [facility] Medical History Abdominal pain Abnormal thyroid function test Alcoholic hepatitis Arthritis Back pain Balance problem Brain atrophy Change in bowel habits Chest pain Decreased urination Diarrhea Erectile dysfunction Fracture, ribs Glaucoma History of alcohol abuse Hyperlipemia Hypertension Knee pain Limb weakness Nausea & vomiting Neuropathy of both feet Obesity (BMI 30.0-34.9) Seizures Swallowing problem Thrombocytopenia Venous insufficiency of both lower extremities Home Medications compress.stocking,knee,reg,lrg #2 ea 09/18/21 [Rx Last Taken Unknown] sildenafil 50 mg tablet 50 mg PO DAILY PRN sexual activity #10 tabs 04/24/22 [Rx Last Taken Unknown] lidocaine 5 % topical patch 1 patch topical DAILY PRN rib pain #30 ea 07/10/22 [Rx Last Taken Unknown] metronidazole 1 % topical gel (Metrogel) 1 applic topical QHS #60 grams 12/11/22 [Rx Last Taken Unknown] metronidazole 0.75 % topical gel 1 applic topical BID #45 grams 12/17/22 [Rx Last Taken Unknown] levothyroxine 25 mcg tablet 25 mcg PO DAILY thyroid #90 tabs 03/25/23 [Rx Last Taken Unknown] meclizine 25 mg tablet 25 mg PO BID PRN dizziness #60 tabs 05/01/23 [Rx Last Taken Unknown] lactulose 10 gram/15 mL (15 mL) oral solution 10 g (15 mL) PO BID potassium #750 mL 06/21/23 [Rx Last Taken Unknown] gabapentin 600 mg tablet 600 mg PO BID pain #60 tabs 06/26/23 [Rx Last Taken Unknown] ibuprofen 800 mg tablet 800 mg PO Q8 PRN Pain #60 tabs 07/10/23 [Rx Last Taken Unknown] levetiracetam 1,000 mg tablet 1,000 mg PO BID ? #180 tabs 07/10/23 [Rx Last Taken Unknown] Allergy/AdvReac Type Severity Reaction Status Date / Time No Known Allergies Allergy Verified 07/16/23 12:15 Family History Father Alcoholism Heart disease Myocardial infarction Mother Arthritis Sister Depression Grandfather Myocardial infarction Grandfather CVA (cerebral vascular accident) Surgical History History of bilateral hip replacements History of surgical procedure on eye proper using laser History of tonsillectomy Social History Smoking Status: Never smoker Smokeless tobacco user: chewing tobacco Electronic Cigarette Use: not used second hand exposure: Yes alcohol intake: current alcohol intake frequency: 3 or more drinks per day Alcohol type: beer details: 4-6 beers a day substance use type: does not use what type of physical activity do you participate in: walking frequency: daily ROS Constitutional Constitutional: Reports change in weight and fatigue; Denies chills or fever(s) Cardiovascular Cardiovascular: Reports edema; Denies chest pain, dyspnea on exertion or orthopnea Respiratory/Chest Respiratory/Chest: Denies cough Gastrointestinal Gastrointestinal: Denies abdominal pain, constipation, diarrhea, nausea or vomiting Vital Signs Vital Signs Vital Signs: 07/16/23 12:13 Temperature 97.1 F L Temperature Source Temporal Pulse Rate 99 Respiratory Rate 18 Blood Pressure 113/80 Blood Pressure Mean 91 Pulse Ox 98 Oxygen Delivery Method Room Air Weight Weight: 99.246 kg Body Mass Index (BMI) 29.7 Physical Exam Const alert and oriented x3 Constitutional Narrative: Pleasant male, sitting comfortably in bed, conversing normally, no acute distress. Does appear mildly fatigued. General Appearance: cooperative and comfortable HEENT normocephalic, head/scalp atraumatic, hearing grossly normal bilaterally, nasal mucous membranes and turbinates normal and moist oral mucous membranes Eyes PERRL, EOMs intact bilaterally and conjunctivae normal Neck full ROM, no lymphadenopathy and supple Lymph Lymphatic: no lymphadenopathy noted Chest inspection of chest normal Resp normal respiratory effort, normal air movement, no use of accessory muscles and clear to auscultation bilaterally Cardio regular rate, regular rhythm, no murmurs and peripheral pulses 2+ throughout GI GI Narrative: Abdomen distended but soft, shifting dullness noted, nontender to palpation. Back/Spine normal ROM Extremity normal to inspection, full ROM and no pedal edema Skin no rashes or lesions noted Psych mental status grossly normal Results Lab / Micro Data 07/16/23 13:25 07/16/23 13:25 Labs: Laboratory Results - last 24 hr 07/16/23 13:25: WBC 4.1 L, RBC 2.94 L, Hgb 11.0 L, Hct 31.1 L, MCV 105.8 H, MCH 37.4 H, MCHC 35.4, RDW Std Deviation 56.9 H, RDW Coeff of Demond 14.7 H, Plt Count 129 L, MPV 9.8, Immature Gran % (Auto) 0.500, Neut % (Auto) 70.4 H, Lymph % (Auto) 19.1, White % (Auto) 7.8, Eos % (Auto) 1.7, Baso % (Auto) 0.5, Absolute Neuts (auto) 2.9, Absolute Lymphs (auto) 0.78 L, Nucleated RBC % 0, PT 21.2 H, INR 1.8, APTT 48.8 H, Sodium 134 L, Potassium 3.1 L, Chloride 97 L, Carbon Dioxide 29.0, Anion Gap 8, BUN 3 L, Creatinine 0.73, Estim Creat Clear Calc 129.92, Est GFR (MDRD) Af Amer 145, Est GFR (MDRD) Non-Af 120, BUN/Creatinine Ratio 4.1 L, Glucose 137 H, Calcium 8.5, Total Bilirubin 11.00 H, Direct Bilirubin 2.88 H, AST 70 H, ALT 30, Alkaline Phosphatase 111, Total Protein 6.8, Albumin 2.4 L, Globulin 4.4 H, Lipase 42, Ethyl Alcohol 6.0 07/16/23 13:37: Ammonia 29.0 Radiology Impression Abdomen/Pelvis CT 07/16/23 13:15 IMPRESSION: 1. Moderate cirrhotic liver morphology with sequela of portal hypertension/splenomegaly and moderate abdominal ascites as above. No evidence of underlying obstruction. Electronically Signed: Moi Pack, DO at 15:28 EDT , Assessment & Plan Assessment/Plan (1) Alcoholic hepatitis: QUALIFIERS: Ascites presence: unspecified Qualified Code(s): K70.10 - Alcoholic hepatitis without ascites PLAN: Plan Patient is a 53 M with history of alcohol use disorder, seizure disorder and hypothyroidism who presented to the [facility] ED on 07/16/2023 with worsening abdominal distention. 1. Alcoholic hepatitis with ascites, concern for underlying cirrhosis Labs and imaging on admission as noted above highly suggestive of alcoholic hepatitis. MELD-Na score of 25 on admission. Alcohol use history as noted below. - GI consulted, appreciate recs. Hepatitis panel pending. Interventional radiology consulted for diagnostic and therapeutic paracentesis. Follow MELD scores. 2. Alcohol use disorder Current drinker, drinks 1 large glass of wine daily. Has history of very heavy beer use; used to drink a 30 pack of beer per day for many years. Has not been able to tolerate beer for the last few months, and that he has been drinking wine. Has history of withdrawal symptoms but denies any withdrawal seizures in the past. -We will place on CIWA protocol for now. Low threshold to switch to a phenobarbital taper if needed. 3. Chronic macrocytic anemia -Likely secondary to nutritional deficiencies in the setting of his chronic alcohol use. Hemoglobin 11.0 on admit, baseline appears to be around 11-12. MCV 105. Will check vitamin B12 and folate levels. We will also check for iron deficiency. 4. Thrombocytopenia ? Suspect secondary to underlying cirrhosis. Platelets 129 on admission. Monitor. 5. Hypokalemia ? Likely secondary to nutritional deficiency in setting of alcohol use. K of 3.1 on admit. Replete as needed. Check Mg level as well and replete as needed. 6. Seizure disorder ? Continue home Keppra. 7. Hypothyroidism ? Continue home Synthroid. ED prophylaxis: Heparin subcu CODE STATUS: Full code, verified Expected disposition: Home, TBD Total clinical time spent by myself addressing the patient's medical issues, reviewing all the data, and collaborating with patient's care team: 55 minutes. Charges/Coding Visit Charges Inpatient E&M: 70041 Init Hosp L2
[2023-07-16 15:44] VITALS: BP 115/79; PULSE 91; RESP 12; TEMP 36.2; O2SAT 97
--- NOTE | 2023-07-16 16:03 | EDS_ITS ---
HPI HPI - GI History of Present Illness Chief Complaint: Abd Pain Narrative Narrative: Patient is a 53-year-old male with history of alcohol abuse and hypertension/depression presenting with increased abdominal distention, discomfort and decreased urination. Patient's been following with his PCP for the past month and has been diagnosed with alcoholic hepatitis. He previously had refused inpatient evaluation and had not followed up with outpatient testing for his symptoms. He had blood work yesterday to recheck his labs compared to a month ago and he has continued increase of his total bilirubin. He was instructed to come to the emergency room and patient finally agreed. Patient not currently have a GI doctor. Patient states has not been sleeping well has had continued abdominal distention and swelling as well as discomfort. His last drink was last night and it was 1 glass of wine. Patient states prior to that he been drinking a large amount of beer but has cut back on the beer. Patient is unaware of any history of hepatitis. PCP note from yesterday reviewed which shows that patient had been on able to get into GI and they recommended hospital admission with work-up but at that time patient was not amenable. Repeat labs were ordered. Continues to feel unwell. Decreased bowel movements. [facility] Medical History Abdominal pain Abnormal thyroid function test Alcoholic hepatitis Arthritis Back pain Balance problem Brain atrophy Change in bowel habits Chest pain Decreased urination Diarrhea Erectile dysfunction Fracture, ribs Glaucoma History of alcohol abuse Hyperlipemia Hypertension Knee pain Limb weakness Nausea & vomiting Neuropathy of both feet Obesity (BMI 30.0-34.9) Seizures Swallowing problem Thrombocytopenia Venous insufficiency of both lower extremities Home Medications compress.stocking,knee,reg,lrg #2 ea 09/18/21 [Rx Last Taken Unknown] sildenafil 50 mg tablet 50 mg PO DAILY PRN sexual activity #10 tabs 04/24/22 [Rx Last Taken Unknown] lidocaine 5 % topical patch 1 patch topical DAILY PRN rib pain #30 ea 07/10/22 [Rx Last Taken Unknown] metronidazole 1 % topical gel (Metrogel) 1 applic topical QHS #60 grams 12/11/22 [Rx Last Taken Unknown] metronidazole 0.75 % topical gel 1 applic topical BID #45 grams 12/17/22 [Rx Last Taken Unknown] levothyroxine 25 mcg tablet 25 mcg PO DAILY thyroid #90 tabs 03/25/23 [Rx Last Taken Unknown] meclizine 25 mg tablet 25 mg PO BID PRN dizziness #60 tabs 05/01/23 [Rx Last Taken Unknown] lactulose 10 gram/15 mL (15 mL) oral solution 10 g (15 mL) PO BID potassium #750 mL 06/21/23 [Rx Last Taken Unknown] gabapentin 600 mg tablet 600 mg PO BID pain #60 tabs 06/26/23 [Rx Last Taken Unknown] ibuprofen 800 mg tablet 800 mg PO Q8 PRN Pain #60 tabs 07/10/23 [Rx Last Taken Unknown] levetiracetam 1,000 mg tablet 1,000 mg PO BID ? #180 tabs 07/10/23 [Rx Last Taken Unknown] Allergy/AdvReac Type Severity Reaction Status Date / Time No Known Allergies Allergy Verified 07/16/23 12:15 Family History Father Alcoholism Heart disease Myocardial infarction Mother Arthritis Sister Depression Grandfather Myocardial infarction Grandfather CVA (cerebral vascular accident) Surgical History History of bilateral hip replacements History of surgical procedure on eye proper using laser History of tonsillectomy Social History Smoking Status: Never smoker Smokeless tobacco user: chewing tobacco Electronic Cigarette Use: not used second hand exposure: Yes alcohol intake: current alcohol intake frequency: 3 or more drinks per day Alcohol type: beer details: 4-6 beers a day substance use type: does not use what type of physical activity do you participate in: walking frequency: daily ROS ROS ED Constitutional Constitutional ED: Reports other Details: Fatigue, weight gain ; Denies chills or fever(s) ENT ENT ED: Denies sore throat Cardiovascular Cardiovascular: Denies chest pain Respiratory/Chest Respiratory/Chest: Reports dyspnea; Denies cough Gastrointestinal Gastrointestinal: Reports abdominal pain, nausea and vomiting; Denies constip ation, diarrhea or melena Genitourinary Genitourinary ED: Reports other Details: Decreased urination ; Denies dysuria Musculoskeletal Musculoskeletal: Denies arthralgias or myalgias Integumentary Denies rash Neurologic Neurologic: Reports weakness; Denies headache(s) Psychiatric Psychiatric: Denies anxiety Hematologic/Lymphatic Hematologic/Lymphatic: Denies easy bleeding EXAM Physical Exam Const Vital Signs: 07/16/23 12:13 Temperature 97.1 F L Temperature Source Temporal Pulse Rate 99 Respiratory Rate 18 Blood Pressure 113/80 Blood Pressure Mean 91 Pulse Ox 98 Oxygen Delivery Method Room Air Positive well developed Constitutional Narrative: Chronically ill-appearing General Appearance ED: well developed HEENT Reports moist mucous membranes Eyes PERRL General Eye ED: Yes scleral icterus Neck supple and no JVD Resp normal respiratory effort and clear to auscultation bilaterally Cardio regular rate, regular rhythm and no murmurs GI GI Narrative: Mild diffuse abdominal tenderness. Abdominal distention present. Positive fluid wave. No peritoneal signs Extremity full ROM General Extremety ED: Negative for edema General Extremity: Negative for edema Neuro moves all extremities Sensorium / Orientation: alert Motor Exam: Negative for general weakness Psych mental status grossly normal and thought process normal Skin no wounds Skin Narrative: Mild erythema around the umbilicus General Skin Exam: jaundice MDM MDM MDM Narrative Medical decision making narrative: Evaluated for continued abdominal distention which is consistent with ascites on physical exam. He is a positive fluid wave. He is jaundiced on exam. Has a history of alcohol abuse and alcoholic hepatitis. I suspect he is progressing in this. He is now amenable to work-up. Differential diagnosis includes acute cirrhosis, ascites, obstructive jaundice, cholecystitis, pancreatitis and SBP. Patient does not have fever, leukocytosis or other findings distant for an acute infectious process. Lab work rechecked today which continue to show mild leukopenia, mild anemia, elevated indirect bilirubin level and an elevated PT/PTT. His ammonia level is normal and his alcohol level is normal today. These findings are consistent with alcoholic hepatitis. CT of the abdomen and pelvis does show moderate cirrhotic liver morphology with sequela of portal hypertension/spinal megaly and moderate abdominal ascites. Case is discussed with Dr. Parr, RAZIA, who is agreeable with inpatient work-up for this. Patient tiarra hemodynamically stable in the ER. He is not tachycardic or hypertensive and has no other findings consistent with acute alcohol withdrawal at this time. Case is discussed admitting physician, Dr. Junior, who accepts the patient. Lab Data Attestation: I reviewed the patient's lab results. Labs: Laboratory Results - last 24 hr 07/16/23 07/16/23 13:25 13:37 WBC 4.1 L RBC 2.94 L Hgb 11.0 L Hct 31.1 L MCV 105.8 H MCH 37.4 H MCHC 35.4 RDW Std Deviation 56.9 H RDW Coeff of Demond 14.7 H Plt Count 129 L MPV 9.8 Immature Gran % (Auto) 0.500 Neut % (Auto) 70.4 H Lymph % (Auto) 19.1 [place] % (Auto) 7.8 Eos % (Auto) 1.7 Baso % (Auto) 0.5 Absolute Neuts (auto) 2.9 Absolute Lymphs (auto) 0.78 L Nucleated RBC % 0 PT 21.2 H INR 1.8 APTT 48.8 H Sodium 134 L Potassium 3.1 L Chloride 97 L Carbon Dioxide 29.0 Anion Gap 8 BUN 3 L Creatinine 0.73 Estim Creat Clear Calc 129.92 Est GFR (MDRD) Af Amer 145 Est GFR (MDRD) Non-Af 120 BUN/Creatinine Ratio 4.1 L Glucose 137 H Calcium 8.5 Total Bilirubin 11.00 H Direct Bilirubin 2.88 H AST 70 H ALT 30 Alkaline Phosphatase 111 Ammonia 29.0 Total Protein 6.8 Albumin 2.4 L Globulin 4.4 H Lipase 42 Ethyl Alcohol 6.0 Radiography Diagnostic Testing: Clinical Impression(s) from Imaging Studies Abdomen/Pelvis CT 07/16/23 13:15 IMPRESSION: 1. Moderate cirrhotic liver morphology with sequela of portal hypertension/splenomegaly and moderate abdominal ascites as above. No evidence of underlying obstruction. Electronically Signed: Moi Pack DO at 15:28 EDT , Discharge Plan Triage Chief Complaint: Abd Pain ED Provider: Caridad Go Dx/Rx/DC Orders Clinical Impression: Abdominal ascites, Alcoholic hepatitis, Jaundice Primary Care Provider: Kem Farmer Disposition Disposition: Acute Care Hospital [facility]
[2023-07-16 16:18] LABS: Bacteria 0 SEEN /hpf (None Seen); Mucous, Urine 0 SEEN /hpf (<or=2+); Red Blood Cells-Urine 0 SEEN /hpf (0-5); Squamous Epithelial Cells - UA 0 SEEN /hpf (0-5); White Blood Cells 0 SEEN /hpf (0-5)
[2023-07-16 16:21] LABS: Color, Urine Yellow (Yellow); Glucose, Dipstick Normal (Normal); Ketone-Dipstick Negative (Negative); Leukocyte Esterase-Dipstick Negative /ul (Negative); Nitrite-Dipstick Negative (Negative); Occult Blood-Urine Negative /ul (Negative); Protein-Dipstick Negative (Negative); Specific Gravity, Urine 1.005 (1.002-1.030); Urine Bilirubin Dipstick Negative (Negative); Urine Clarity Clear (Clear); Urine Urobilinogen 4 mg/dl (Normal)
[2023-07-16 16:22] VITALS: BP 117/74; PULSE 96; RESP 18; O2SAT 98
[2023-07-16 17:25] VITALS: BP 104/68; PULSE 90; RESP 17; TEMP 37; O2SAT 99; BMI 29.7
--- NOTE | 2023-07-16 17:28 | EX.PCM.CON.G ---
HPI Consult Data Date of Consult: 07/16/23 HPI Narrative Reason for Consultation: Jaundice and abdominal distention HPI Narrative: ALYSSA HAMLIN, is a 53 M who presents with worsening abdominal distention. He has a history of alcohol abuse and hypertension/depression presenting with increased abdominal distention, discomfort and decreased urination. It is unknown if he has any history of chronic viral hepatitis or HIV. Patient's been following with his PCP for the past month and has been diagnosed with alcoholic hepatitis. He previously had refused inpatient evaluation and had not followed up with outpatient testing for his symptoms. He had blood work yesterday to recheck his labs compared to a month ago and he has continued increase of his total bilirubin. He was instructed to come to the emergency room and patient finally agreed. Patient not currently have a GI doctor. Patient states has not been sleeping well has had continued abdominal distention and swelling as well as discomfort. His last drink was last night and it was 1 glass of wine. Patient states prior to that he been drinking a large amount of beer but has cut back on the beer. Patient is unaware of any history of hepatitis. PCP note from yesterday reviewed which shows that patient had been on able to get into GI and they recommended hospital admission with work-up but at that time patient was not amenable. Repeat labs were ordered. Continues to feel unwell. Decreased bowel movements. His labs are consistent with alcoholic hepatitis and he got a CT scan the abdomen pelvis that displayed a moderate cirrhotic liver morphology with sequela of portal hypertension/splenomegaly and moderate abdominal ascites as above. No evidence of underlying obstruction. [facility] Medical History Abdominal pain Abnormal thyroid function test Alcoholic hepatitis Arthritis Back pain Balance problem Brain atrophy Change in bowel habits Chest pain Decreased urination Diarrhea Erectile dysfunction Fracture, ribs Glaucoma History of alcohol abuse Hyperlipemia Hypertension Knee pain Limb weakness Nausea & vomiting Neuropathy of both feet Obesity (BMI 30.0-34.9) Seizures Swallowing problem Thrombocytopenia Venous insufficiency of both lower extremities Home Medications compress.stocking,knee,reg,lrg #2 ea 09/18/21 [Rx Last Taken Unknown] sildenafil 50 mg tablet 50 mg PO DAILY PRN sexual activity #10 tabs 04/24/22 [Rx Last Taken Unknown] lidocaine 5 % topical patch 1 patch topical DAILY PRN rib pain #30 ea 07/10/22 [Rx Last Taken Unknown] metronidazole 1 % topical gel (Metrogel) 1 applic topical QHS #60 grams 12/11/22 [Rx Last Taken Unknown] metronidazole 0.75 % topical gel 1 applic topical BID #45 grams 12/17/22 [Rx Last Taken Unknown] levothyroxine 25 mcg tablet 25 mcg PO DAILY thyroid #90 tabs 03/25/23 [Rx Last Taken Unknown] meclizine 25 mg tablet 25 mg PO BID PRN dizziness #60 tabs 05/01/23 [Rx Last Taken Unknown] lactulose 10 gram/15 mL (15 mL) oral solution 10 g (15 mL) PO BID potassium #750 mL 06/21/23 [Rx Last Taken Unknown] gabapentin 600 mg tablet 600 mg PO BID pain #60 tabs 06/26/23 [Rx Last Taken Unknown] ibuprofen 800 mg tablet 800 mg PO Q8 PRN Pain #60 tabs 07/10/23 [Rx Last Taken Unknown] levetiracetam 1,000 mg tablet 1,000 mg PO BID ? #180 tabs 07/10/23 [Rx Last Taken Unknown] Allergy/AdvReac Type Severity Reaction Status Date / Time No Known Allergies Allergy Verified 07/16/23 12:15 Family History Father Alcoholism Heart disease Myocardial infarction Mother Arthritis Sister Depression Grandfather Myocardial infarction Grandfather CVA (cerebral vascular accident) Surgical History History of bilateral hip replacements History of surgical procedure on eye proper using laser History of tonsillectomy Social History Smoking Status: Never smoker Smokeless tobacco user: chewing tobacco Electronic Cigarette Use: not used second hand exposure: Yes alcohol intake: current alcohol intake frequency: 3 or more drinks per day Alcohol type: beer details: 4-6 beers a day substance use type: does not use what type of physical activity do you participate in: walking frequency: daily ROS Review of Systems ROS Unobtainable: other Constitutional Constitutional: Denies fatigue, fever(s), poor appetite, weight gain or weight loss ENT HEENT: Denies mouth lesions Cardiovascular Cardiovascular: Denies abdominal bloating, abdominal edema or abdominal pain Respiratory/Chest Respiratory/Chest: Denies change in mental status, change in phlegm color, chest congestion or chest tightness Gastrointestinal Gastrointestinal: Denies belching, bloating, change in bowel habits, change in stool character, chewing difficulty, coffee ground emesis, constipation, cramping, diarrhea, dyspepsia, dysphagia, early satiety, excessive flatus, fecal incontinence, heartburn, hematemesis, hematochezia, hemorrhoids, loose stools, melena, nausea, odynophagia, rectal bleeding, tenesmus, vomiting or weight changes Genitourinary Genitourinary: Denies abdominal discomfort, burning urination or itching Musculoskeletal Musculoskeletal: Reports as per HPI; Denies muscle weakness or myalgias Integumentary Integumentary: Denies jaundice Neurologic Neurologic: Denies lack of coordination or weakness Psychiatric Psychiatric: Denies confusion, depression, memory loss, mood swings, paranoia or suicidal ideation Endocrine Endocrinology: Denies systems reviewed and no addt'l complaints, except as documented Hematologic/Lymphatic Hematologic/Lymphatic: Denies anemia, easy bleeding, easy bruising or lymphadenopathy Allergic/Immunologic Allergic/Immunologic: Denies systems reviewed and no addt'l complaints, except as documented Physical Exam Const alert, oriented x3, no apparent distress, healthy appearing and well nourished General Appearance: cooperative, comfortable, well kempt and well developed Orientation / Consciousness: awake and oriented to person HEENT Head and Scalp: normocephalic and atraumatic Face and Sinus: normal facial exam Mouth: oral and palatal mucosa normal Eyes General Eye: normal appearance of both eyes Neck full ROM Lymph Lymphatic: no lymphadenopathy noted Chest inspection of chest normal Resp normal respiratory effort and no use of accessory muscles Cardio regular rate and regular rhythm GI normal to inspection, nondistended, normoactive bowel sounds, soft to palpation, non-tender, non-distended and no masses Auscultation: normoactive bowel sounds Palpation: soft Percussion: normal to percussion Rectal Exam: visual inspection normal and normal sphincter tone no CVA tenderness Back/Spine no CVA tenderness and normal ROM Extremity normal to inspection Peripheral Pulses: Yes pulses 2+ throughout Skin no rashes or lesions noted General Skin Exam: no breakdown, elasticity normal and turgor normal Neuro oriented x3 Motor Exam: strength 5/5 throughout Psych mental status grossly normal Appearance: grossly normal Attitude: calm Activity / Motor Behavior: appropriate eye contact Speech: normal speech Thought Process: normal thought process Thought Content: normal thought content Attention / Concentration: attention grossly intact Memory / Cognition: memory grossly intact Insight: insight good Judgement: judgement good Lab / Micro Data 07/16/23 13:25 07/16/23 13:25 Labs: Laboratory Results - last 24 hr 07/16/23 13:25: WBC 4.1 L, RBC 2.94 L, Hgb 11.0 L, Hct 31.1 L, MCV 105.8 H, MCH 37.4 H, MCHC 35.4, RDW Std Deviation 56.9 H, RDW Coeff of Demond 14.7 H, Plt Count 129 L, MPV 9.8, Immature Gran % (Auto) 0.500, Neut % (Auto) 70.4 H, Lymph % (Auto) 19.1, [place] % (Auto) 7.8, Eos % (Auto) 1.7, Baso % (Auto) 0.5, Absolute Neuts (auto) 2.9, Absolute Lymphs (auto) 0.78 L, Nucleated RBC % 0, PT 21.2 H, INR 1.8, APTT 48.8 H, Sodium 134 L, Potassium 3.1 L, Chloride 97 L, Carbon Dioxide 29.0, Anion Gap 8, BUN 3 L, Creatinine 0.73, Estim Creat Clear Calc 129.92, Est GFR (MDRD) Af Amer 145, Est GFR (MDRD) Non-Af 120, BUN/Creatinine Ratio 4.1 L, Glucose 137 H, Calcium 8.5, Total Bilirubin 11.00 H, Direct Bilirubin 2.88 H, AST 70 H, ALT 30, Alkaline Phosphatase 111, Total Protein 6.8, Albumin 2.4 L, Globulin 4.4 H, Lipase 42, Ethyl Alcohol 6.0 07/16/23 13:37: Ammonia 29.0 07/16/23 16:15: Urine Color Yellow, Urine Clarity Clear, Urine pH 7.0, Ur Specific [place] 1.005, Urine Protein Negative, Urine Glucose (UA) Normal, Urine Ketones Negative, Urine Occult Blood Negative, Urine Nitrite Negative, Urine Bilirubin Negative, Urine Urobilinogen 4 H, Ur Leukocyte Esterase Negative, Urine RBC 0 SEEN, Urine WBC 0 SEEN, Ur Squamous Epith Cells 0 SEEN, Urine Bacteria 0 SEEN, Urine Mucus 0 SEEN Radiology Impression Abdomen/Pelvis CT 07/16/23 13:15 IMPRESSION: 1. Moderate cirrhotic liver morphology with sequela of portal hypertension/splenomegaly and moderate abdominal ascites as above. No evidence of underlying obstruction. Electronically Signed: Moi Pack DO at 15:28 EDT Reading Location ID and State: [facility] / [place] , Service support , Assessment & Plan Assessment/Plan (1) Jaundice: (2) Abdominal ascites: QUALIFIERS: Ascites type: due to alcoholic cirrhosis Qualified Code(s): K70.31 - Alcoholic cirrhosis of liver with ascites (3) Alcoholic hepatitis: QUALIFIERS: Ascites presence: unspecified Qualified Code(s): K70.10 - Alcoholic hepatitis without ascites (4) Cirrhosis: QUALIFIERS: Hepatic cirrhosis type: alcoholic cirrhosis Ascites presence: with ascites Qualified Code(s): K70.31 - Alcoholic cirrhosis of liver with ascites PLAN: Plan 51-year-old gentleman comes in with worsening abdominal distention and jaundice. He was discovered to have severe alcoholic hepatitis along with new onset ascites. So by definition he has decompensated liver disease with acute on chronic alcoholic hepatitis. His MELD sodium score at this time is 20. His Madrey score for alcoholic hepatitis is 32. His Child-Benavides score is a B. He will need work-up for chronic hepatitis including viral hepatitis B and C serologies, autoimmune hepatitis labs, Ramone disease labs, alpha-1 antitrypsin labs, protein electrophoresis, screening for hemochromatosis, screening for autoimmune hepatitis. He may need liver biopsy in the future. He is still currently drinking at this time. I will start him on Mucomyst and steroid for alcoholic hepatitis with prednisone 40 mg a day. Recheck INR. Charges/Coding Visit Charges Inpatient E&M: 27524 Init Hosp L3
[2023-07-16] MEDS: Potassium Chloride Oral Tablet 20 MEQ 40 MEQ PO (17:54)
[2023-07-16] MEDS: Magnesium Sulfate 4gm/100mL 4 GM/100 ML IV.SOLN. IV (17:55)
[2023-07-16] MEDS: 0.9% Saline Lock 10 ML Syringe IV (17:55)
[2023-07-16 18:21] LABS: Amylase 28 U/L (25-115); Vitamin B12 575 pg/mL (211-911)
[2023-07-16 18:38] LABS: Ferritin 1050 ng/mL (26-388); Iron 118 ug/dL (65-175); Iron Binding Capacity,Total 144 ug/dL (250-450); Magnesium 1.9 mg/dL (1.6-2.6); PERCENT IRON SATURATION 81.9 % (15.0-55.0)
[2023-07-16 18:50] LABS: HIV - WCH Non-Reactive (Nonreactive)
[2023-07-16 22:00] VITALS: BP 111/69; PULSE 90; RESP 18; TEMP 37.2; O2SAT 94
[2023-07-16 22:02] VITALS: BP 111/69; PULSE 90; RESP 18; TEMP 37.2; O2SAT 94
[2023-07-16] MEDS: levETIRAcetam 1,000 MG Tablet 1000 MG PO (22:22)
[2023-07-16] MEDS: Lactulose 20 GM/30 ML UDC 10 GM PO (22:22)
[2023-07-16] MEDS: Gabapentin 600 MG Tablet PO (22:22)
[2023-07-16] MEDS: Heparin Injection (Vial) 5,000 UNIT/ML VIAL 5000 UNIT SC (22:23)
[2023-07-17] VITALS (7 sets, daily range): BP systolic 97–126; BP diastolic 52–86; PULSE 80–102; RESP 16–20; TEMP 36.6–37.1; O2SAT 93–97; BMI 29.2
--- NOTE | 2023-07-17 | FLU_PTH ---
PATIENT: ALYSSA HAMLIN LOC: MS3 U#:[id number] AGE/SX: 53/M ROOM: [facility] RE07/16/[address]: Dr. Moris Edwards MD : 1970 BED: 1 DIS: 07/18/2023 SPEC #: [id number] RECD: 07/17/23 14:42 STATUS: SOUNorma REQ #: [id number] ASHVIN: 07/17/23 00:[address]: Abel Parr DEPT: CYTOLOGY RECD BY: Stephanie Taylor ENTERED: 07/20/23 10:50 SP TYPE: Fluid OTHR DR: Dr. Brian Junior, DO MD Dr. Phillip Mcclendon DO Dr. Efewongbe Oleghe, MD Dr. Gabriele Pedicelli, MD Tissues: PARACENTESIS FLUID Procedures: Special Stain Group II Surgery Specimen Level IV Cytospin Fluid Comments: @ Ordering doctor for SSII edited from to @ by REBEL at 07/20/23 1051 @ Ordering doctor for SUIV edited from to @ by REBEL at 07/20/23 1051 @ Ordering doctor for CYSPIN edited from to @ by REBEL at 07/20/23 1051 @ Submitting doctor edited from to @ by REBEL at 07/20/23 1051 @ Ordering doctor for SSII edited from to @ by RGOOD at 07/20/23 1514 @ Ordering doctor for SUIV edited from to @ by RGOOD at 07/20/23 1514 @ Ordering doctor for CYSPIN edited from to @ by RGOOD at 07/20/23 1514 @ Submitting doctor edited from to @ by RGOOD at 07/20/23 1514 HEADER OPERATION: Ultrasound-guided right paracentesis PRE-OP DIAGNOSIS: Ascites TISSUE SUBMITTED: Paracentesis fluid for cytology DIAGNOSIS CYTOLOGY Paracentesis fluid for cytology (cytospin and cell block): Negative for malignant cells. See comment. ОЛЬГА:darek 07/21/2023 COMMENT Clinical correlation and appropriate follow up are necessary. CYTOLOGY STUDY Slides are reviewed. CYTOLOGY GROSS Received is 90 ml of yellow cloudy fluid labeled with the patient's name and and designated per the requisition as paracentesis. Submitted for cytology preparation including cell block. / darek 07/20/2023 TC:5 CPT: 95877, 91678
[2023-07-17] MEDS: 0.9% Saline Lock 10 ML Syringe IV (03:40)
[2023-07-17] MEDS: Levothyroxine 25 MCG TABLET PO (05:55)
--- NOTE | 2023-07-17 07:29 | PN.HOSP_ITS ---
Reason for Visit Reason for Visit: Diagnoses Alcoholic hepatitis without ascites (07/16/23) Alcoholic cirrhosis of liver with ascites (07/16/23) Unspecified jaundice (07/16/23) Subjective Subjective Patient is a 53-year-old gentleman admitted with worsening abdominal distention Objective Data Objective Data Vital Signs: Vital Signs Temp Pulse Resp BP Pulse Ox O2 Del Method 98.1 F 86 18 106/65 93 Room Air 07/17/23 05:59 07/17/23 05:59 07/17/23 05:59 07/17/23 05:59 07/17/23 05:59 07/17/23 06:00 Oxygen Delivery Method Room Air Weight: 97.9 kg Body Mass Index (BMI) 29.2 Intake & Output: Intake and Output for Last 24 Hours 07/15/23 07/16/23 07/17/23 23:59 23:59 23:59 Intake Total 200 / 200 Balance 200 / 200 Lab / Micro Data 07/16/23 13:25 07/16/23 13:25 Labs: Laboratory Results - last 24 hr 07/16/23 13:25: WBC 4.1 L, RBC 2.94 L, Hgb 11.0 L, Hct 31.1 L, MCV 105.8 H, MCH 37.4 H, MCHC 35.4, RDW Std Deviation 56.9 H, RDW Coeff of Demond 14.7 H, Plt Count 129 L, MPV 9.8, Immature Gran % (Auto) 0.500, Neut % (Auto) 70.4 H, Lymph % ( Auto) 19.1, [place] % (Auto) 7.8, Eos % (Auto) 1.7, Baso % (Auto) 0.5, Absolute Neuts (auto) 2.9, Absolute Lymphs (auto) 0.78 L, Nucleated RBC % 0, PT 21.2 H, INR 1.8, APTT 48.8 H, Sodium 134 L, Potassium 3.1 L, Chloride 97 L, Carbon Dioxide 29.0, Anion Gap 8, BUN 3 L, Creatinine 0.73, Estim Creat Clear Calc 129.92, Est GFR (MDRD) Af Amer 145, Est GFR (MDRD) Non-Af 120, BUN/Creatinine Ratio 4.1 L, Glucose 137 H, Calcium 8.5, Magnesium 1.9, Iron 118, TIBC 144 L, Iron Saturation 81.9 H, Ferritin 1050 H, Total Bilirubin 11.00 H, Direct Bilirubin 2.88 H, AST 70 H, ALT 30, Alkaline Phosphatase 111, Total Protein 6.8, Albumin 2.4 L, Globulin 4.4 H, Amylase 28, Lipase 42, Vitamin B12 575, Folate 2. 80 L, Ethyl Alcohol 6.0, HIV 1&2 Antibody Non-Reactive 07/16/23 13:37: Ammonia 29.0 07/16/23 16:15: Urine Color Yellow, Urine Clarity Clear, Urine pH 7.0, Ur Specific [place] 1.005, Urine Protein Negative, Urine Glucose (UA) Normal, Urine Ketones Negative, Urine Occult Blood Negative, Urine Nitrite Negative, Urine Bilirubin Negative, Urine Urobilinogen 4 H, Ur Leukocyte Esterase Negative, Urine RBC 0 SEEN, Urine WBC 0 SEEN, Ur Squamous Epith Cells 0 SEEN, Urine Bacteria 0 SEEN, Urine Mucus 0 SEEN 07/16/23 18:40: Hepatitis A IgM Ab Cancelled, Hep Bs Antigen Cancelled, Hep B Core IgM Ab Cancelled, Hepatitis C Ab (EIA) Cancelled, Hep C Ab Comment Cancelled Radiography Diagnostic Testing: Radiology Impression Abdomen/Pelvis CT 07/16/23 13:15 IMPRESSION: 1. Moderate cirrhotic liver morphology with sequela of portal hypertension/splenomegaly and moderate abdominal ascites as above. No evidence of underlying obstruction. Electronically Signed: Moi Pack DO at 15:28 EDT , Physical Exam Narrative GENERAL: cooperative HEENT: Atraumatic; normocephalic EYES; Anicteric, Normal Conjunctiva NECK; supple, normal thyroid, RESPIRATORY: Diminished to auscultation CARDIOVASCULAR: Regular S1 S2, GI: soft, normoactive bowel sounds, distended abdomen : No Renal angle tenderness; EXTREMITIES: edema, no clubbing, MUSCULOSKELETAL: no muscle wasting NEURO: Awake; no lateralizing signs. SKIN: No Rash PSYCH; Flat affect Assessment & Plan Assessment/Plan (1) Alcoholic hepatitis: QUALIFIERS: Ascites presence: unspecified Qualified Code(s): K70.10 - Alcoholic hepatitis without ascites PLAN: Plan Patient is a 53-year-old gentleman admitted with worsening abdominal distention 1. Alcoholic hepatitis with ascites, concern for underlying cirrhosis ? Patient liver function profile consistent with alcoholic hepatitis. Admitted to regular nursing floor. Consultation placed to GI. Friend's notes and recommendations reviewed 2. Chronic alcohol use disorder ? Patient was placed on alcohol withdrawal protocol with CIWA 5. Ascites ? In the setting of suspected cirrhosis patient to undergo diagnostic and therapeutic paracentesis 4. Chronic microcytic anemia ? Possibly related to patient's chronic alcohol use monitoring with daily H&H with plans to transfuse if hemoglobin falls below 7 or patient is deemed to be symptomatic 5. Thrombocytopenia ? Secondary to suspected underlying cirrhosis of the liver . Seizure disorder ? Patient is on Keppra did continue 7. Hypothyroidism - Patient is on levothyroxine home dose continued 8. Hypokalemia ? Corrected protocol repeat labs ordered for a.m. 9. Overweight with BMI of 29.3 ? Weight loss advised 10. DVT prophylaxis ? Avoided the use of chemoprophylaxis given patient's low platelet count Time spent in the patient's overall evaluation,decision-making process, review of diagnostic data, adjustment of management, discussion with other providers, nursing nursing and ancillary staff involved in patient's care documentation, 50 Minutes Charges/Coding Visit Charges Inpatient E&M: 18886 [facility] Hosp L3
[2023-07-17] MEDS: levETIRAcetam 1,000 MG Tablet 1000 MG PO ×2 (10:17→22:20)
[2023-07-17] MEDS: Lactulose 20 GM/30 ML UDC 10 GM PO ×2 (10:17→22:20)
[2023-07-17] MEDS: predniSONE 20 MG Tablet 40 MG PO (10:17)
[2023-07-17] MEDS: Gabapentin 600 MG Tablet PO ×2 (10:17→22:20)
[2023-07-17] MEDS: Lidocaine 2% (20 ml mdv) 20 ML Vial INFILT (14:16)
[2023-07-17 14:49] LABS: Cytology, Body Fluid / CSF SEE PATHOLOGY REPORT
[2023-07-17 15:12] LABS: Body Fluid Mononuclear WBC # 0.106 10^3/uL; Body Fluid Mononuclear WBC % 80.9 %; Body Fluid Polynuclear WBC # 0.025 10^3/uL; Body Fluid Polynuclear WBC % 19.1 %; White Blood Count/Body Fluid 0.131 10^3/uL
[2023-07-17 15:13] LABS: Auto B Fluid Analyzer BKGD Ct COUNTS W/IN LIMITS (W/IN LIMITS)
[2023-07-17 15:14] LABS: Appearance/Body Fluid CLEAR; Color/Body Fluid YELLOW; Source- Body Fluid OTHER
[2023-07-17 16:57] LABS: Lymphocytes 23 %; Macrophages 26 %; Monocytes 5 %; Neutrophil (Segs) 17 %
[2023-07-17 16:58] LABS: Body Fluid QC Type(s) BF2Q; Mesothelial Cells 29 %; Red Cell Count/Body Fluid 180 /mm3
--- NOTE | 2023-07-17 17:36 | US_ITS ---
PROCEDURE: Ultrasound guided paracentesis. DATE OF EXAMINATION: 07/17/2023. INDICATION: Male, 53 years old. Ascites. PHYSICIAN: Phillip Man DO TECHNIQUE: The risks, benefits, and alternatives to the procedure were explained to the patient. The specific risks of bleeding, infection, and damage to bowel were detailed and accepted. Witnessed informed consent was obtained. The abdomen was ultrasonographically surveyed. An appropriate pocket of fluid was identified at the right lower quadrant. The skin were cleaned and prepped in the usual sterile fashion. Using ultrasound guidance, the peritoneal cavity was accessed with a 5-Lithuanian paracentesis needle/catheter system. The trocar was removed. A total of 1950 ml of clear straw colored ascites fluid were removed from the peritoneal cavity. A 100 cc sample was sent to the laboratory for additional testing. The catheter was removed and a sterile dressing was applied. The procedure was well tolerated. The patient was returned to the floor in stable condition. US/Paracentesis with US IMPRESSION: Ultrasound guided diagnostic and therapeutic paracentesis. Electronically Signed: Phillip Man DO at 16:46 EDT ,
--- NOTE | 2023-07-17 18:00 | CASEMGMT ---
DEONNA NOVOA DC Planning Assessment: Face to Face with patient for initial transition planning/care coordination assessment. DEONNA NOVOA introduced self and role at [facility], pt alert, answering questions appropriately, voices understanding, and is agreeable to participating in assessment. Care providers, pharmacy, and demographics verified. Admitting dx: ETOH liver disease, Ascites PCP: Marleny Specialists: none Preferred Pharmacy: [facility] Insurance: [employer] Prescription Benefit: yes LNKORIN: has a 18yo son who lives out of state and his mom lives in the area. States his friend Dalila lives local and is his best contact. Living Arrangements: Pt lives alone on the second floor of home/apartment building with multiple steps. Pt states there is a handrail on part of steps and the other part does not have hand rail. Pt states he is able to navigate with the steps but has some difficulty due to neuropathy in his feet. Pt states he is independent with ADLs. Transportation: Pt uses taxi passes from [employer] DME: none SNF/HHC: denies any previous providers Plan: Return home. Pt states he would benefit from having a shower chair. Discussed that this is not covered by his insurance. Pt states his mom is searching for a used shower chair. Ambrocio Pittman RN CM
[2023-07-17] MEDS: Furosemide 20 MG Tablet PO (18:01)
--- NOTE | 2023-07-17 18:45 | PN.GI_ITS ---
Subjective Subjective Patient underwent paracentesis today. His abdomen does feel better. He has not shown any signs of alcohol withdrawal at this time. He is tolerating a diet. Objective Data Objective Data Vital Signs: Vital Signs Temp Pulse Resp BP Pulse Ox O2 Del Method 98.3 F 86 20 H 126/86 H 95 Room Air 07/17/23 14:50 07/17/23 14:50 07/17/23 14:50 07/17/23 14:50 07/17/23 14:50 07/17/23 14:52 Oxygen Delivery Method [3] Room Air Oxygen Delivery Method [2] Room Air Oxygen Delivery Method [1 ( Room Air Initial Baseline)] Oxygen Delivery Method Room Air Weight: 215 lb 13.321 oz Body Mass Index (BMI) 29.2 Intake & Output: Intake and Output for Last 24 Hours 07/15/23 07/16/23 07/17/23 23:59 23:59 23:59 Intake Total 200 / 200 1269.95 / 1269.95 Output Total 1951 / 1951 Balance 200 / 200 -681.05 / -681.05 Lab / Micro Data 07/16/23 13:25 07/16/23 13:25 Labs: Laboratory Results - last 24 hr 07/16/23 13:25: HIV 1&2 Antibody Non-Reactive 07/16/23 18:40: Hepatitis A IgM Ab Cancelled, Hep Bs Antigen Cancelled, Hep B Core IgM Ab Cancelled, Hepatitis C Ab (EIA) Cancelled, Hep C Ab Comment Cancelled 07/17/23 14:46: Fluid Source OTHER, Fluid Color YELLOW, Fluid Appearance CLEAR, Fluid WBC 0.131, Fluid RBC 180, Fluid Tot Cell Count 0.160, Fld Polynuclear WBCs # 0.025, Fld Polynuclear WBCs % 19.1, Fluid Mononuclear WBCs 0.106, Fld Mononuclear WBCs % 80.9, Fluid Neutrophils 17, Fluid Lymphocytes 23, Fluid Monocytes 5, Fluid Macrophages 26, Fld Mesothelial Cells 29, Fl Pathologist Comm ent May follow, Fluid Comment 2 Not Reportable Micro: Microbiology 07/17/23 14:46 Fluid - Paracentesis (Abd) Gram Stain - Final Radiography Diagnostic Testing: Radiology Impression Paracentesis Ultrasound 07/17/23 17:36 IMPRESSION: Ultrasound guided diagnostic and therapeutic paracentesis. Electronically Signed: Phillip Man DO at 16:46 EDT , Physical Exam Narrative GENERAL: cooperative HEENT: Atraumatic; normocephalic EYES; Anicteric, Normal Conjunctiva NECK; supple, normal thyroid, RESPIRATORY: Diminished to auscultation CARDIOVASCULAR: Regular S1 S2, GI: soft, normoactive bowel sounds, distended abdomen : No Renal angle tenderness; EXTREMITIES: edema, no clubbing, MUSCULOSKELETAL: no muscle wasting NEURO: Awake; no lateralizing signs. SKIN: No Rash PSYCH; Flat affect Assessment & Plan Assessment/Plan (1) Alcoholic hepatitis: QUALIFIERS: Ascites presence: unspecified Qualified Code(s): K70.10 - Alcoholic hepatitis without ascites PLAN: Plan Patient is a 53 M with history of alcohol use disorder, seizure disorder and hypothyroidism who presented to the [facility] ED on 07/16/2023 with worsening abdominal distention. 1. Alcoholic hepatitis with ascites, concern for underlying cirrhosis Labs and imaging on admission as noted above highly suggestive of alcoholic hepatitis. MELD-Na score of 35 on admission. Alcohol use history as noted below. - Hepatitis panel pending. Interventional radiology consulted for diagnostic and therapeutic paracentesis. Follow MELD scores. I started him on N- acetylcysteine for acute alcoholic hepatitis along with prednisone. 2. Alcohol use disorder Current drinker, drinks 1 large glass of wine daily. Has history of very heavy beer use; used to drink a 30 pack of beer per day for many years. Has not been able to tolerate beer for the last few months, and that he has been drinking wine. Has history of withdrawal symptoms but denies any withdrawal seizures in the past. -We will place on CIWA protocol for now. Low threshold to switch to a phenobarbital taper if needed. 3. Chronic macrocytic anemia -Likely secondary to nutritional deficiencies in the setting of his chronic alcohol use. Hemoglobin 11.0 on admit, baseline appears to be around 11-12. MCV 105. Will check vitamin B12 and folate levels. We will also check for iron deficiency. 4. Thrombocytopenia ? Suspect secondary to underlying cirrhosis. Platelets 129 on admission. Monitor. 5. Hypokalemia ? Likely secondary to nutritional deficiency in setting of alcohol use. K of 3.1 on admit. Replete as needed. Check Mg level as well and replete as needed. 6. Ascites -He underwent paracentesis today. SAG gradient was greater than 1.1 consistent with portal hypertension. I will write him on an 6 and Actos. He will need to be screened for esophageal varices. Charges/Coding Visit Charges Inpatient E&M: 86083 Subs Hosp L3
[2023-07-17] MEDS: Spironolactone 25 MG Tablet PO (22:20)
[2023-07-18 02:50] VITALS: BP 94/54; PULSE 88; RESP 18; TEMP 36.8; O2SAT 93
[2023-07-18 04:05] VITALS: BMI 29.0
[2023-07-18 05:44] VITALS: BP 101/66; PULSE 88; RESP 18; TEMP 37.1; O2SAT 96
[2023-07-18] MEDS: Levothyroxine 25 MCG TABLET PO (05:58)
[2023-07-18 07:40] VITALS: O2SAT 96
[2023-07-18 07:46] LABS: Absolute Lymphocyte Count 0.76 X10^3/uL (0.83-4.51); Absolute Neutrophil Count 3.7 X10^3/uL (2.0-7.7); Hemoglobin 9.9 g/dL (13.0-16.5); Lymphocyte # 0.76 X10^3/ul (0.83-4.51); Lymphocyte % 15.9 % (19-41); Mean Corp Hgb Conc 35.4 g/dL (32-36); Mean Corpuscular Hgb 37.4 pg (27.0-32.0); Mean Corpuscular Volume 105.7 fL (80-94); Mean Platelet Vol. 10.1 fl (6.2-12.0); Monocyte# 0.35 X10^3/uL; Monocyte% 7.3 % (0-10); NRBC Flagged by Analyzer 0 % (0-5); Neutrophil # 3.65 X10^3/uL (2.7-7.7); Neutrophil % 76.4 % (47-70); Platelet Count 126 K/mm3 (150-450); RBC Distribution Width SD 54.4 fl (35.1-43.9); Red Blood Count 2.65 M/mm3 (4.6-6.2); White Blood Count 4.8 K/mm3 (4.4-11.0)
[2023-07-18 08:10] LABS: HEPATITIS B SURFACE AG Negative (Negative); Hep C Antibodies Non Reactive (Non Reactive); Hepatitis A IgM Antibody Negative (Negative); Hepatitis B Core AB IgM Negative (Negative)
--- NOTE | 2023-07-18 08:10 | PCM.PN.HOSP ---
Reason for Visit Reason for Visit: Diagnoses Alcoholic hepatitis without ascites (07/16/23) Alcoholic cirrhosis of liver with ascites (07/16/23) Unspecified jaundice (07/16/23) Subjective Subjective Underwent ultrasound-guided paracentesis on 07/17/2023 with 1950 ml of clear straw colored ascites fluid were removed from the peritoneal cavity Objective Data Objective Data Vital Signs: Vital Signs Temp Pulse Resp BP Pulse Ox O2 Del Method 98.7 F 88 18 101/66 96 Room Air 07/18/23 05:44 07/18/23 05:44 07/18/23 05:44 07/18/23 05:44 07/18/23 05:44 07/18/23 05:50 Oxygen Delivery Method [3] Room Air Oxygen Delivery Method [2] Room Air Oxygen Delivery Method [1 ( Room Air Initial Baseline)] Oxygen Delivery Method Room Air Weight: 97.4 kg Body Mass Index (BMI) 29.0 Intake & Output: Intake and Output for Last 24 Hours 07/16/23 07/17/23 07/18/23 23:59 23:59 23:59 Intake Total 200 / 200 1269.95 / 1269.95 524.5 / 524.5 Output Total 2276 / 2276 1100 / 1100 Balance 200 / 200 -1006.05 / -1006.05 -575.5 / -575.5 Lab / Micro Data 07/18/23 07:10 07/18/23 07:10 Labs: Laboratory Results - last 24 hr 07/17/23 14:46: Fluid Source OTHER, Fluid Color YELLOW, Fluid Appearance CLEAR, Fluid WBC 0.131, Fluid RBC 180, Fluid Tot Cell Count 0.160, Fld Polynuclear WBCs # 0.025, Fld Polynuclear WBCs % 19.1, Fluid Mononuclear WBCs 0.106, Fld Mononuclear WBCs % 80.9, Fluid Neutrophils 17, Fluid Lymphocytes 23, Fluid Monocytes 5, Fluid Macrophages 26, Fld Mesothelial Cells 29, Fl Pathologist Comment May follow, Fluid Comment 2 Not Reportable 07/18/23 07:10: WBC 4.8, RBC 2.65 L, Hgb 9.9 L, Hct 28.0 L, MCV 105.7 H, MCH 37.4 H, MCHC 35.4, RDW Std Deviation 54.4 H, RDW Coeff of Demond 14.0, Plt Count 126 L, MPV 10.1, Immature Gran % (Auto) 0.400, Neut % (Auto) 76.4 H, Lymph % (Auto) 15.9 L, [place] % (Auto) 7.3, Eos % (Auto) 0.0, Baso % (Auto) 0.0, Absolute Neuts (auto) 3.7, Absolute Lymphs (auto) 0.76 L, Nucleated RBC % 0 Micro: Microbiology 07/17/23 14:46 Fluid - Paracentesis (Abd) Gram Stain - Final Radiography Diagnostic Testing: Radiology Impression Paracentesis Ultrasound 07/17/23 17:36 IMPRESSION: Ultrasound guided diagnostic and therapeutic paracentesis. Electronically Signed: Phillip Man DO at 16:46 EDT , Physical Exam Narrative GENERAL: cooperative HEENT: Atraumatic; normocephalic EYES; Anicteric, Normal Conjunctiva NECK; supple, normal thyroid, RESPIRATORY: Diminished to auscultation CARDIOVASCULAR: Regular S1 S2, GI: soft, normoactive bowel sounds, distended abdomen : No Renal angle tenderness; EXTREMITIES: edema, no clubbing, MUSCULOSKELETAL: no muscle wasting NEURO: Awake; no lateralizing signs. SKIN: No Rash PSYCH; Flat affect Assessment & Plan Assessment/Plan (1) Alcoholic hepatitis: QUALIFIERS: Ascites presence: unspecified Qualified Code(s): K70.10 - Alcoholic hepatitis without ascites PLAN: Plan Patient is a 53-year-old gentleman admitted with worsening abdominal distention 1. Alcoholic hepatitis with ascites, concern for underlying cirrhosis ? Patient liver function profile consistent with alcoholic hepatitis. Admitted to regular nursing floor. Consultation placed to GI. Friend's notes and recommendations reviewed 2. Chronic alcohol use disorder ? Patient was placed on alcohol withdrawal protocol with CIWA 3. Ascites ? In the setting of suspected cirrhosis patient to undergo diagnostic and therapeutic paracentesis 08/18/2023; Underwent ultrasound-guided paracentesis on 07/17/2023 with 1950 ml of clear straw colored ascites fluid were removed from the peritoneal cavity 4. Chronic microcytic anemia ? Possibly related to patient's chronic alcohol use monitoring with daily H&H with plans to transfuse if hemoglobin falls below 7 or patient is deemed to be symptomatic 5. Thrombocytopenia ? Secondary to suspected underlying cirrhosis of the liver . Seizure disorder ? Patient is on Keppra did continue 7. Hypothyroidism - Patient is on levothyroxine home dose continued 8. Hypokalemia ? Corrected protocol repeat labs ordered for a.m. 9. Overweight with BMI of 29.3 ? Weight loss advised 10. DVT prophylaxis ? Avoided the use of chemoprophylaxis given patient's low platelet count Time spent in the patient's overall evaluation,decision-making process, review of diagnostic data, adjustment of management, discussion with other providers, nursing nursing and ancillary staff involved in patient's care documentation, 35 Minutes Charges/Coding Visit Charges Inpatient E&M: 58887 Subs Hosp L2
[2023-07-18 08:17] LABS: AST(SGOT) 48 U/L (15-37); Alanine Aminotransfer ALT/SGPT 27 U/L (16-61); Albumin, Serum 2.1 g/dL (3.2-5.0); Alkaline Phosphatase 90 U/L (45-117); Anion Gap 8 (5-15); BUN 4 mg/dL (7-18); Bilirubin, Direct 2.67 mg/dL (0.00-0.30); Calcium,Total 8.5 mg/dL (8.5-10.1); Chloride 100 mmol/L (98-107); Creatinine, Serum 0.67 mg/dL (0.70-1.30); EST Glomerular Filtration Rate 133 mL/min (>60); Est Glom Filt Rate - Afr Amer 161 mL/min (>60); Estimated Creatinine Clearance 141.56 ml/min; Globulin 3.9 g/dL (2.2-4.2); Glucose 130 mg/dL (74-106); Magnesium 1.9 mg/dL (1.6-2.6); Phosphorus 2.2 mg/dL (2.5-4.9); Potassium 3.4 mmol/L (3.5-5.1); Sodium Level 137 mmol/L (136-145)
[2023-07-18 08:33] VITALS: BP 103/61; PULSE 89; RESP 18; TEMP 36.8; O2SAT 94
[2023-07-18] MEDS: Spironolactone 25 MG Tablet PO (10:02)
[2023-07-18] MEDS: levETIRAcetam 1,000 MG Tablet 1000 MG PO (10:02)
[2023-07-18] MEDS: predniSONE 20 MG Tablet 40 MG PO (10:02)
[2023-07-18] MEDS: Furosemide 20 MG Tablet PO (10:02)
[2023-07-18] MEDS: Gabapentin 600 MG Tablet PO (10:03)
[2023-07-18] MEDS: Lactulose 20 GM/30 ML UDC 10 GM PO (10:03)
--- NOTE | 2023-07-18 10:14 | EX.PCM.PN.GI ---
Subjective Subjective Patient is status post removal of 2 L of serosanguineous fluid via paracentesis. Objective Data Objective Data Vital Signs: Vital Signs Temp Pulse Resp BP Pulse Ox O2 Del Method 98.2 F 89 18 103/61 94 Room Air 07/18/23 08:33 07/18/23 08:33 07/18/23 08:33 07/18/23 08:33 07/18/23 08:33 07/18/23 08:33 Oxygen Delivery Method [3] Room Air Oxygen Delivery Method [2] Room Air Oxygen Delivery Method [1 ( Room Air Initial Baseline)] Oxygen Delivery Method Room Air Weight: 214 lb 11.684 oz Body Mass Index (BMI) 29.0 Intake & Output: Intake and Output for Last 24 Hours 07/16/23 07/17/23 07/18/23 23:59 23:59 23:59 Intake Total 200 / 200 1269.95 / 1269.95 524.5 / 524.5 Output Total 2276 / 2276 1100 / 1100 Balance 200 / 200 -1006.05 / -1006.05 -575.5 / -575.5 Lab / Micro Data 07/18/23 07:10 07/18/23 07:10 Labs: Laboratory Results - last 24 hr 07/16/23 14:50: Hepatitis A IgM Ab Negative, Hep Bs Antigen Negative, Hep B Core IgM Ab Negative, Hepatitis C Ab (EIA) Non Reactive, Hep C Ab Comment Comment 07/17/23 14:46: Fluid Source OTHER, Fluid Color YELLOW, Fluid Appearance CLEAR, Fluid WBC 0.131, Fluid RBC 180, Fluid Tot Cell Count 0.160, Fld Polynuclear WBCs # 0.025, Fld Polynuclear WBCs % 19.1, Fluid Mononuclear WBCs 0.106, Fld Mononuclear WBCs % 80.9, Fluid Neutrophils 17, Fluid Lymphocytes 23, Fluid Monocytes 5, Fluid Macrophages 26, Fld Mesothelial Cells 29, Fl Pathologist Comment May follow, Fluid Comment 2 Not Reportable 07/18/23 07:10: WBC 4.8, RBC 2.65 L, Hgb 9.9 L, Hct 28.0 L, MCV 105.7 H, MCH 37.4 H, MCHC 35.4, RDW Std Deviation 54.4 H, RDW Coeff of Demond 14.0, Plt Count 126 L, MPV 10.1, Immature Gran % (Auto) 0.400, Neut % (Auto) 76.4 H, Lymph % (Auto) 15.9 L, [place] % (Auto) 7.3, Eos % (Auto) 0.0, Baso % (Auto) 0.0, Absolute Neuts (auto) 3.7, Absolute Lymphs (auto) 0.76 L, Nucleated RBC % 0, Sodium 137, Potassium 3.4 L, Chloride 100, Carbon Dioxide 29.0, Anion Gap 8, BUN 4 L, Creatinine 0.67 L, Estim Creat Clear Calc 141.56, Est GFR (MDRD) Af Amer 161, Est GFR (MDRD) Non-Af 133, BUN/Creatinine Ratio 6.0 L, Glucose 130 H, Calcium 8.5, Phosphorus 2.2 L, Magnesium 1.9, Total Bilirubin 8.70 H, Direct Bilirubin 2.67 H, AST 48 H, ALT 27, Alkaline Phosphatase 90, Total Protein 6.0 L, Albumin 2.1 L, Globulin 3.9 Micro: Microbiology 07/17/23 14:46 Fluid - Paracentesis (Abd) Gram Stain - Final Radiography Diagnostic Testing: Radiology Impression Paracentesis Ultrasound 07/17/23 17:36 IMPRESSION: Ultrasound guided diagnostic and therapeutic paracentesis. Electronically Signed: Phillip Man DO at 16:46 EDT , Physical Exam Narrative GENERAL: cooperative HEENT: Atraumatic; normocephalic EYES; Anicteric, Normal Conjunctiva NECK; supple, normal thyroid, RESPIRATORY: Diminished to auscultation CARDIOVASCULAR: Regular S1 S2, GI: soft, normoactive bowel sounds, distended abdomen : No Renal angle tenderness; EXTREMITIES: edema, no clubbing, MUSCULOSKELETAL: no muscle wasting NEURO: Awake; no lateralizing signs. SKIN: No Rash PSYCH; Flat affect Assessment & Plan Assessment/Plan (1) Alcoholic hepatitis: QUALIFIERS: Ascites presence: unspecified Qualified Code(s): K70.10 - Alcoholic hepatitis without ascites PLAN: Plan Patient is a 53 M with history of alcohol use disorder, seizure disorder and hypothyroidism who presented to the [facility] ED on 07/16/2023 with worsening abdominal distention. 1. Alcoholic hepatitis with ascites, concern for underlying cirrhosis Labs and imaging on admission as noted above highly suggestive of alcoholic hepatitis. MELD-Na score of 35 on admission. Alcohol use history as noted below. - Hepatitis panel pending. Interventional radiology consulted for diagnostic and therapeutic paracentesis. Follow MELD scores. I started him on N-acetylcysteine for acute alcoholic hepatitis along with prednisone. 2. Alcohol use disorder Current drinker, drinks 1 large glass of wine daily. Has history of very heavy beer use; used to drink a 30 pack of beer per day for many years. Has not been able to tolerate beer for the last few months, and that he has been drinking wine. Has history of withdrawal symptoms but denies any withdrawal seizures in the past. -We will place on CIWA protocol for now. Low threshold to switch to a phenobarbital taper if needed. 3. Chronic macrocytic anemia -Likely secondary to nutritional deficiencies in the setting of his chronic alcohol use. Hemoglobin 11.0 on admit, baseline appears to be around 11-12. MCV 105. Will check vitamin B12 and folate levels. We will also check for iron deficiency. 4. Thrombocytopenia ? Suspect secondary to underlying cirrhosis. Platelets 129 on admission. Monitor. 5. Hypokalemia ? Likely secondary to nutritional deficiency in setting of alcohol use. K of 3.1 on admit. Replete as needed. Check Mg level as well and replete as needed. 6. Ascites -He underwent paracentesis today. SAG gradient was greater than 1.1 consistent with portal hypertension. I will write him on an 6 and Actos. He will need to be screened for esophageal varices. I started him on Lasix and Aldactone and he is having good urinary output from those 2 medicines. He will need to continue that as an outpatient. Charges/Coding Visit Charges Inpatient E&M: 74386 Subs Hosp L3
--- NOTE | 2023-07-18 10:27 | PCM.DC.SUM ---
Providers Date of Admission: 07/16/23 Date of Discharge: 07/18/23 Primary Care Physician: Dr. Kem Farmer MD Consultations 07/16/23 17:05 Consult: Gastroenterology Routine Consulting Provider: De[facility] Reason for Consult: Alcohol hepatitis, concern for underlying cirrhosis EMERGENT Consult: No Notified: Yes Date Notified: 07/16/23 Time Notified: 16:38 Method of Notification: via text Consult: Interventional Radiology Routine Consulting Provider: Kar Dave Reason for Consult: Diagnostic and therapeutic paracentesis EMERGENT Consult: No Notified: Yes Date Notified: 07/17/23 Time Notified: 08:15 Method of Notification: Answering Service Reason For Visit: NEW ASCITES, ALCOHOLIC LIVER DISEASE Diagnosis Discharge Diagnosis (1) Alcoholic hepatitis: Status: Chronic Code(s): K70.10 - Alcoholic hepatitis without ascites Qualifiers: Ascites presence: unspecified Qualified Code(s): K70.10 - Alcoholic hepatitis without ascites Plan Patient is a 53-year-old gentleman admitted with worsening abdominal distention 1. Alcoholic hepatitis with ascites, concern for underlying cirrhosis ? Patient liver function profile consistent with alcoholic hepatitis. Admitted to regular nursing floor. Consultation placed to GI. Friend's notes and recommendations reviewed 2. Chronic alcohol use disorder ? Patient was placed on alcohol withdrawal protocol with CIWA 3. Ascites ? In the setting of suspected cirrhosis patient to undergo diagnostic and therapeutic paracentesis 08/18/2023; Underwent ultrasound-guided paracentesis on 07/17/2023 with 1950 ml of clear straw colored ascites fluid were removed from the peritoneal cavity 4. Chronic microcytic anemia ? Possibly related to patient's chronic alcohol use monitoring with daily H&H with plans to transfuse if hemoglobin falls below 7 or patient is deemed to be symptomatic 5. Thrombocytopenia ? Secondary to suspected underlying cirrhosis of the liver . Seizure disorder ? Patient is on Keppra did continue 7. Hypothyroidism - Patient is on levothyroxine home dose continued 8. Hypokalemia ? Corrected protocol repeat labs ordered for a.m. 9. Overweight with BMI of 29.3 ? Weight loss advised 10. DVT prophylaxis ? Avoided the use of chemoprophylaxis given patient's low platelet count Time spent in the patient's overall evaluation,decision-making process, review of diagnostic data, adjustment of management, discussion with other providers, nursing nursing and ancillary staff involved in patient's care documentation, 35 Minutes Medications at Discharge Home Medications compress.stocking,knee,reg,lrg #2 ea 09/18/21 sildenafil 50 mg tablet 50 mg PO DAILY PRN sexual activity #10 tabs 04/24/22 lidocaine 5 % topical patch 1 patch topical DAILY PRN rib pain #30 ea 07/10/22 metronidazole 1 % topical gel (Metrogel) 1 applic topical QHS #60 grams 12/11/22 metronidazole 0.75 % topical gel 1 applic topical BID #45 grams 12/17/22 levothyroxine 25 mcg tablet 25 mcg PO DAILY thyroid #90 tabs 03/25/23 meclizine 25 mg tablet 25 mg PO BID PRN dizziness #60 tabs 05/01/23 lactulose 10 gram/15 mL (15 mL) oral solution 10 g (15 mL) PO BID potassium #750 mL 06/21/23 gabapentin 600 mg tablet 600 mg PO BID pain #60 tabs 06/26/23 levetiracetam 1,000 mg tablet 1,000 mg PO BID ? #180 tabs 07/10/23 furosemide 20 mg tablet 20 mg PO BIDLX 120 days #240 tabs 07/18/23 prednisone 20 mg tablet 40 mg (2 x 20 mg) PO BREAKFAST #10 tabs 07/18/23 spironolactone 25 mg tablet 25 mg PO BID #120 tabs 07/18/23 Hospital Course Procedures Paracentesis Summary of Care Provided Minutes Spent on Discharge: 35 Physical Exam Narrative GENERAL: cooperative HEENT: Atraumatic; normocephalic EYES; Anicteric, Normal Conjunctiva NECK; supple, normal thyroid, RESPIRATORY: Diminished to auscultation CARDIOVASCULAR: Regular S1 S2, GI: soft, normoactive bowel sounds, : No Renal angle tenderness; EXTREMITIES: edema, no clubbing, MUSCULOSKELETAL: no muscle wasting NEURO: Awake; no lateralizing signs. SKIN: No Rash PSYCH; Flat affect Weight / BMI Weight Weight: 97.4 kg Body Mass Index (BMI) 29.0 ABG / Lab / Microbiology Data 07/18/23 07:10 07/18/23 07:10 Laboratory: Laboratory Results - last 24 hr 07/16/23 14:50: Hepatitis A IgM Ab Negative, Hep Bs Antigen Negative, Hep B Core IgM Ab Negative, Hepatitis C Ab (EIA) Non Reactive, Hep C Ab Comment Comment 07/17/23 14:46: Fluid Source OTHER, Fluid Color YELLOW, Fluid Appearance CLEAR, Fluid WBC 0.131, Fluid RBC 180, Fluid Tot Cell Count 0.160, Fld Polynuclear WBCs # 0.025, Fld Polynuclear WBCs % 19.1, Fluid Mononuclear WBCs 0.106, Fld Mononuclear WBCs % 80.9, Fluid Neutrophils 17, Fluid Lymphocytes 23, Fluid Monocytes 5, Fluid Macrophages 26, Fld Mesothelial Cells 29, Fl Pathologist Comment May follow, Fluid Comment 2 Not Reportable 07/18/23 07:10: WBC 4.8, RBC 2.65 L, Hgb 9.9 L, Hct 28.0 L, MCV 105.7 H, MCH 37.4 H, MCHC 35.4, RDW Std Deviation 54.4 H, RDW Coeff of Demond 14.0, Plt Count 126 L, MPV 10.1, Immature Gran % (Auto) 0.400, Neut % (Auto) 76.4 H, Lymph % (Auto) 15.9 L, [place] % (Auto) 7.3, Eos % (Auto) 0.0, Baso % (Auto) 0.0, Absolute Neuts (auto) 3.7, Absolute Lymphs (auto) 0.76 L, Nucleated RBC % 0, Sodium 137, Potassium 3.4 L, Chloride 100, Carbon Dioxide 29.0, Anion Gap 8, BUN 4 L, Creatinine 0.67 L, Estim Creat Clear Calc 141.56, Est GFR (MDRD) Af Amer 161, Est GFR (MDRD) Non-Af 133, BUN/Creatinine Ratio 6.0 L, Glucose 130 H, Calcium 8.5, Phosphorus 2.2 L, Magnesium 1.9, Total Bilirubin 8.70 H, Direct Bilirubin 2.67 H, AST 48 H, ALT 27, Alkaline Phosphatase 90, Total Protein 6.0 L, Albumin 2.1 L, Globulin 3.9 Microbiology: Microbiology 07/17/23 14:46 Fluid - Paracentesis (Abd) Gram Stain - Final Radiography Diagnostic Testing: Radiology Impression Paracentesis Ultrasound 07/17/23 17:36 IMPRESSION: Ultrasound guided diagnostic and therapeutic paracentesis. Electronically Signed: Phillip Man DO at 16:46 EDT , D/C Instructions Discharge Diet: No restrictions Discharge Activity: Return to Normal Activity Call your doctor if you observe: Fever of 101 or Higher, Shortness of breath, Fainting spells and Chest pain Meaningful Use Info Meaningful Use Diagnoses (Choose all that apply): None applicable Discharge Plan Admission Admit Date/Time: 07/16/23 16:33 Attending Provider: Moris Edwards Primary Care Provider: Kem Farmer Consulting Providers: Brian Junior; Kar Dave; Phillip Man Instructions Patient Instructions: DEDRICK RN Paracentesis Dc Discharge Orders/Prescriptions Prescriptions: New prednisone 20 mg Tablet 40 mg PO BREAKFAST Qty: 10 0RF spironolactone 25 mg Tablet 25 mg PO BID Qty: 120 0RF furosemide 20 mg Tablet 20 mg PO BIDLX 120 Days Qty: 240 0RF Continued (DME) compress.stocking,knee,reg,lrg Misc See Rx Instructions .MEDSUPPLY Qty: 2 1RF Rx Instructions: wear daily for venous insufficiency 20-30 mmHg metronidazole [Metrogel] 1 % gel 1 applic topical QHS Qty: 60 1RF sildenafil 50 mg tablet 50 mg PO DAILY PRN (Reason: sexual activity) Qty: 10 0RF Rx Instructions: administer 30 minutes to 4 hours before activity lidocaine 5 % adhesive patch,medicated 1 patch TOPICAL DAILY PRN (Reason: rib pain) Qty: 30 1RF Rx Instructions: leave on most painful area for 12 hrs metronidazole 0.75 % gel 1 applic topical BID Qty: 45 1RF levothyroxine 25 mcg tablet 25 mcg PO DAILY Qty: 90 3RF meclizine 25 mg tablet 25 mg PO BID PRN (Reason: dizziness) Qty: 60 2RF lactulose 10 gram/15 mL (15 mL) solution 10 g PO BID Qty: 750 3RF gabapentin 600 mg tablet 600 mg PO BID Qty: 60 0RF Rx Instructions: TAKE 1 TABLET BY MOUTH TWICE A DAY levetiracetam 1,000 mg tablet 1,000 mg PO BID Qty: 180 1RF Discontinued ibuprofen 800 mg tablet 800 mg PO Q8 PRN (Reason: Pain) Qty: 60 0RF Referrals / Follow Up: Kem Farmer MD [Primary Care Provider] - Within 2 Weeks Abel Parr DO [Med Staff - Active Staff] - Within 2 Weeks Disposition Disposition (needs filled in before D/C Order can be placed): Home, Self Care Charges/Coding Visit Charges Inpatient E&M: 39932 Disch Hosp >30min
--- NOTE | 2023-07-18 10:53 | NURSING ---
0930 report recieved from Aleah YING
[2023-07-18 11:56] VITALS: BP 105/61; PULSE 95; RESP 18; TEMP 36.8; O2SAT 98
[2023-07-20 03:06] LABS: Albumin, Body Fluid 0.8 g/dL (Not Estab.); Amylase Body Fluid 16 U/L (.)
[2023-07-20 13:07] LABS: Alpha Antitrypsin Serum 179 mg/dL (101-187); Anti-Centromere B Ab <0.2 AI (0.0-0.9); Anti-Chromatin <0.2 AI (0.0-0.9); Anti-Jo <0.2 AI (0.0-0.9); Anti-Scleroderma-70 AB <0.2 AI (0.0-0.9); Anti-dsDNA Ab 1 IU/mL (0-9); RNP Ab <0.2 AI (0.0-0.9); SJOGREN'S Anti-SS-A test < 0.2 AI (0.0-0.9); SJOGREN'S Anti-SS-B test < 0.2 AI (0.0-0.9); Smith Ab 0.2 AI (0.0-0.9)
[2023-07-20 15:07] LABS: Albumin 2.8 g/dL (2.9-4.4); Alpha-1-Globulins 0.3 g/dL (0.0-0.4); Alpha-2-Globulins 0.3 g/dL (0.4-1.0); Carcinoembryonic Antigen 6.1 ng/mL (0.0-4.7); Ceruloplasmin 17.1 mg/dL (16.0-31.0); Gamma Globulin 2.6 g/dL (0.4-1.8); Immunoglobulin A 755 mg/dL (90-386); Immunoglobulin G 2163 mg/dL (603-1613); Immunoglobulin M 288 mg/dL (20-172); PROEL- TOTAL PROTEIN 6.7 g/dL (6.0-8.5)
[2023-07-21 12:20] LABS: Pathologist Comment/Body Fluid Reviewed
[2023-07-23 20:07] LABS: AFP, Tumor Marker 3.9 ng/mL (0.0-8.4); CMV Acute Antibody IgM < 30.0 AU/mL (0.0-29.9); Carbohydrate AG 19-9 58 U/mL (0-35); Copper, Serum or Plasma 83 ug/dL (69-132); Cytoplasmic Ab (C-ANCA) 1:20 titer (Neg:<1:20); Perinuclear Ab (P-ANCA) <1:20 titer (Neg:<1:20)
== END 2023-07-18 12:25 | disposition home or self-care (01) | DRG 433 ==
LOC: ED 13:23 → MS3 16:11
PROVIDERS: Internal Medicine Gastroenterology; Admitting Provider Hospitalist; Emergency Provider Emergency Medicine; PCP Internal Medicine; Visit Provider Internal Medicine
DX: K70.31 Alcoholic cirrhosis of liver with ascites (principal); K76.6 Portal hypertension; D69.6 Thrombocytopenia, unspecified; G40.909 Epilepsy, unspecified, not intractable, without status epilepticus; K70.11 Alcoholic hepatitis with ascites; E03.9 Hypothyroidism, unspecified; D53.9 Nutritional anemia, unspecified; E87.6 Hypokalemia; D50.9 Iron deficiency anemia, unspecified; E63.9 Nutritional deficiency, unspecified; E78.5 Hyperlipidemia, unspecified; E66.3 Overweight; Z68.29 Body mass index [BMI] 29.0-29.9, adult
CPT/HCPCS: 36415; 49083; 74177; 80048; 80053; 80074; 80076; 81001; 82042; 82077; 82103; 82105; 82140; 82150; 82378; 82390; 82525; 82607; 82728; 82746; 82784; 83540; 83550; 83690; 83735; 84100; 84165; 85025; 85610; 85730; 86225; 86235; 86256; 86301; 86334; 86645; 86703; 87070; 87075; 87205; 88108; 88305; 88313; 89050; 97802; 99284; J7050; Q9967; A4216

== ENCOUNTER → 2023-07-30 | Outpatient (CLI) | payer MEDICAID, SELFPAY ==
[2023-07-30 16:47] LABS: Absolute Lymphocyte Count 0.88 X10^3/uL (0.83-4.51); Absolute Neutrophil Count 3.4 X10^3/uL (2.0-7.7); Basophil# 0.03 X10^3/uL; Basophil% 0.6 % (0-1); Eosinophil# 0.07 X10^3/uL; Eosinophils% 1.5 % (0-5); Hematocrit 33.5 % (40-54); Hemoglobin 11.5 g/dL (13.0-16.5); Lymphocyte # 0.88 X10^3/ul (0.83-4.51); Lymphocyte % 18.6 % (19-41); Mean Corp Hgb Conc 34.3 g/dL (32-36); Mean Corpuscular Hgb 37.5 pg (27.0-32.0); Mean Corpuscular Volume 109.1 fL (80-94); Mean Platelet Vol. 9.6 fl (6.2-12.0); Monocyte# 0.31 X10^3/uL; Monocyte% 6.5 % (0-10); NRBC Flagged by Analyzer 0 % (0-5); Neutrophil # 3.44 X10^3/uL (2.7-7.7); Neutrophil % 72.6 % (47-70); Platelet Count 125 K/mm3 (150-450); RBC Distribution Width CV 14.2 % (11.6-14.6); RBC Distribution Width SD 57.3 fl (35.1-43.9); Red Blood Count 3.07 M/mm3 (4.6-6.2); White Blood Count 4.7 K/mm3 (4.4-11.0)
[2023-07-30 17:21] LABS: ALB/GLOB Ratio 0.6 RATIO (0.9-2.4); AST(SGOT) 81 U/L (15-37); Alanine Aminotransfer ALT/SGPT 53 U/L (16-61); Albumin, Serum 2.8 g/dL (3.2-5.0); Alkaline Phosphatase 128 U/L (45-117); Anion Gap 7 (5-15); BUN 4 mg/dL (7-18); Chloride 102 mmol/L (98-107); EST Glomerular Filtration Rate 108 mL/min (>60); Est Glom Filt Rate - Afr Amer 131 mL/min (>60); Globulin 4.8 g/dL (2.2-4.2); Glucose 110 mg/dL (74-106); Potassium 4.3 mmol/L (3.5-5.1); Protein, Total 7.6 g/dL (6.4-8.2); Sodium Level 136 mmol/L (136-145); Thyroid Stim Hormone (TSH) 6.03 uIU/mL (0.358-3.74)
== END | disposition home or self-care (01) ==
LOC: BIMLAB 15:06
PROVIDERS: PCP Internal Medicine; Visit Provider Internal Medicine
DX: K74.60 Unspecified cirrhosis of liver (principal); E03.9 Hypothyroidism, unspecified
CPT/HCPCS: 36415; 80053; 82140; 84443; 85025

== ENCOUNTER → 2023-08-26 | Outpatient (CLI) | payer MEDICAID, SELFPAY ==
[2023-08-26 15:11] LABS: Absolute Lymphocyte Count 0.93 X10^3/uL (0.83-4.51); Absolute Neutrophil Count 1.9 X10^3/uL (2.0-7.7); Basophil# 0.03 X10^3/uL; Basophil% 0.9 % (0-1); Eosinophil# 0.07 X10^3/uL; Eosinophils% 2.2 % (0-5); Hematocrit 35.8 % (40-54); Hemoglobin 12.3 g/dL (13.0-16.5); Lymphocyte # 0.93 X10^3/ul (0.83-4.51); Mean Corp Hgb Conc 34.4 g/dL (32-36); Mean Corpuscular Hgb 36.2 pg (27.0-32.0); Mean Corpuscular Volume 105.3 fL (80-94); Mean Platelet Vol. 9.4 fl (6.2-12.0); Monocyte# 0.23 X10^3/uL; Monocyte% 7.2 % (0-10); NRBC Flagged by Analyzer 0 % (0-5); Neutrophil # 1.94 X10^3/uL (2.7-7.7); Neutrophil % 60.4 % (47-70); Platelet Count 107 K/mm3 (150-450); RBC Distribution Width CV 13.4 % (11.6-14.6); RBC Distribution Width SD 51.8 fl (35.1-43.9); White Blood Count 3.2 K/mm3 (4.4-11.0)
[2023-08-26 15:34] LABS: ALB/GLOB Ratio 0.6 RATIO (0.9-2.4); AST(SGOT) 107 U/L (15-37); Alanine Aminotransfer ALT/SGPT 55 U/L (16-61); Alkaline Phosphatase 189 U/L (45-117); Anion Gap 5 (5-15); BUN 5 mg/dL (7-18); BUN/Creat Ratio 7.2 RATIO (10-20); Calcium,Total 8.8 mg/dL (8.5-10.1); Chloride 105 mmol/L (98-107); Creatinine, Serum 0.69 mg/dL (0.70-1.30); EST Glomerular Filtration Rate 127 mL/min (>60); Est Glom Filt Rate - Afr Amer 154 mL/min (>60); Globulin 4.7 g/dL (2.2-4.2); Glucose 113 mg/dL (74-106); Potassium 3.9 mmol/L (3.5-5.1); Protein, Total 7.7 g/dL (6.4-8.2); Sodium Level 136 mmol/L (136-145)
== END | disposition home or self-care (01) ==
LOC: BIMLAB 14:18
PROVIDERS: PCP Internal Medicine; Referring Provider Internal Medicine; Visit Provider Internal Medicine
DX: K70.10 Alcoholic hepatitis without ascites (principal)
CPT/HCPCS: 36415; 80053; 82140; 85025

== ENCOUNTER 2023-09-30 11:22 | Emergency (ER) | payer OTHER, MEDICAID, SELFPAY ==
[2023-09-30 11:23] VITALS: BP 149/93; PULSE 102; RESP 16; TEMP 36.4; O2SAT 99; BMI 24.8
--- NOTE | 2023-09-30 11:41 | EDS_ITS ---
HPI History of Present Illness Chief Complaint: Trauma Informant: patient Narrative Narrative: 53-year-old male presenting to the emergency room following an accident at work. Patient states that he was standing on a decline when to 380 pound pipes rolled down on top of him. He states that it hit him from behind rolled up his left leg. He states that he injured his left wrist in the fall. He was able to get up and for the next hour and a half continue to work. 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 The patient states that he has for years to sports medicine and knows that the left wrist is broken and that his knee is dislocated. Patient has been able to ambulate. Patient does not believe he is able to undo his pants to get into a gown. He denies any abdominal or thoracic symptoms. No head or neck pain. No back pain. He notes some discomfort of the right knee. [facility] Medical History Abdominal pain Abnormal thyroid function test Alcoholic hepatitis Arthritis Back pain Balance problem Brain atrophy Change in bowel habits Chest pain Decreased urination Dermatitis Diarrhea Erectile dysfunction Fracture, ribs Glaucoma History of alcohol abuse Hyperlipemia Hypertension Hypothyroidism Knee pain Limb weakness Nausea & vomiting Neuropathy of both feet Obesity (BMI 30.0-34.9) Seizures Swallowing problem Thrombocytopenia Venous insufficiency of both lower extremities Home Medications compress.stocking,knee,reg,lrg #2 ea 09/18/21 [Rx Last Taken Unknown] lidocaine 5 % topical patch 1 patch topical DAILY PRN rib pain #30 ea 07/10/22 [Rx Last Taken Unknown] metronidazole 1 % topical gel (Metrogel) 1 applic topical QHS #60 grams 12/11/22 [Rx Last Taken Unknown] metronidazole 0.75 % topical gel 1 applic topical BID #45 grams 12/17/22 [Rx Last Taken Unknown] lactulose 10 gram/15 mL (15 mL) oral solution 10 g (15 mL) PO BID potassium #750 mL 06/21/23 [Rx Last Taken Unknown] alpha lipoic acid 600 mg capsule 600 mg PO TID #120 caps 07/30/23 [Rx Last Taken Unknown] gabapentin 600 mg tablet 600 mg PO BID pain #60 tabs 08/26/23 [Rx Last Taken Unknown] spironolactone 25 mg tablet 25 mg PO BID #120 tabs 08/26/23 [Rx Last Taken Unknown] furosemide 20 mg tablet 20 mg PO BIDLX 120 days #240 tabs 09/16/23 [Rx Last Taken Unknown] levetiracetam 1,000 mg tablet 1,000 mg PO BID ? #180 tabs 09/16/23 [Rx Last Taken Unknown] levothyroxine 50 mcg tablet 50 mcg PO DAILY thyroid #60 tabs 09/16/23 [Rx Last Taken Unknown] meclizine 25 mg tablet 25 mg PO BID PRN dizziness #60 tabs 09/16/23 [Rx Last Taken Unknown] oxycodone-acetaminophen 5 mg-325 mg tablet 1 tab PO Q6H PRN PRN Pain 3 days #12 TABLETS 09/30/23 [Rx Last Taken Unknown] Allergy/AdvReac Type Severity Reaction Status Date / Time No Known Allergies Allergy Verified 09/30/23 11:24 Family History Father Alcoholism Heart disease Myocardial infarction Mother Arthritis Sister Depression Grandfather Myocardial infarction Grandfather CVA (cerebral vascular accident) Surgical History History of bilateral hip replacements History of surgical procedure on eye proper using laser History of tonsillectomy Social History Smoking Status: Never smoker Smokeless tobacco user: chewing tobacco Electronic Cigarette Use: not used second hand exposure: Yes alcohol intake: current alcohol intake frequency: 3 or more drinks per day Alcohol type: beer details: 4-6 beers a day substance use type: does not use what type of physical activity do you participate in: walking frequency: daily ROS ROS ED Constitutional Constitutional ED: Denies chills or weight loss Eyes Eyes: Denies change in vision or diplopia ENT ENT ED: Denies ear pain, rhinorrhea or sore throat Cardiovascular Cardiovascular: Denies chest pain, orthopnea, palpitations or racing heartbeat Respiratory/Chest Respiratory/Chest: Denies cough, dyspnea or orthopnea Gastrointestinal Gastrointestinal: Denies abdominal pain, diarrhea, nausea or vomiting Genitourinary Genitourinary ED: Denies dysuria, hematuria or urinary frequency Musculoskeletal Musculoskeletal: Reports other Details: Left wrist left knee pain ; Denies arthralgias, back pain, myalgias or neck pain Integumentary Reports Abrasions; Denies abscess or rash Neurologic Neurologic: Denies headache(s) or weakness Psychiatric Psychiatric: Denies anxiety, depression, suicidal ideation or suicidal thoughts Endocrine Endocrinology: Denies polydipsia, polyphagia or polyuria Allergic/Immunologic Allergic/Immunologic ED: Denies mouth swelling, tongue swelling or urticaria EXAM Physical Exam Const Vital Signs: 09/30/23 11:23 09/30/23 11:42 Temperature 97.6 F L Temperature Source Temporal Pulse Rate 102 H Respiratory Rate 16 Respiratory Effort Normal Respiratory Depth Normal Respiratory Pattern Normal Blood Pressure 149/93 H Blood Pressure Mean 111 Pulse Ox 99 Oxygen Delivery Method Room Air Positive well nourished and well developed General Appearance ED: well developed HEENT Reports normocephalic, head/scalp atraumatic and moist mucous membranes Eyes PERRL and EOMs intact bilaterally Neck no lymphadenopathy, supple and no JVD Resp normal respiratory effort and clear to auscultation bilaterally Cardio regular rate, regular rhythm and no murmurs GI normal to inspection, nondistended, normoactive bowel sounds and non-tender Palpation: soft Back/Spine no CVA tenderness and normal ROM Extremity Extremity Narrative: Right knee demonstrates anterior superficial abrasions and contusions. There is no significant effusion. Ligaments appear stable. Neurovascular intact distal Left knee. Patient is able to lift his leg up off the bed. He is able to sit on the side of the bed and stand though painfully. He notes tenderness superior and lateral to the patella. I do not appreciate any obvious dislocation. I do not appreciate tendon disruption. Ligaments appear stable but he does have pain laterally with palpation during medial stressing. There appears to be a small effusion. Neurovascular intact distal Left wrist demonstrates tenderness diffusely more pronounced over the medial aspect along the ulna. He has pain with flexion extension. Superficial abrasion over the mid forearm on the anterior surface. Neurovascular intact distal General Extremety ED: Negative for edema General Extremity: Negative for edema Neuro oriented x3 and CN's II-XII intact bilaterally Sensorium / Orientation: alert Motor Exam: strength 5/5 throughout Psych mental status grossly normal Mood & Affect: Negative for depressed or tearful Skin no rashes or lesions noted and no wounds MDM MDM MDM Narrative Medical decision making narrative: My independent interpretation of the plain films of the left knee is no obvious acute fracture however joint effusion is noted. My independent interpretation of the plain films of the left wrist is carpal bone fracture. Patient received a dose of oxycodone for pain Patient was placed in anterior posterior plaster (nonfabricated) splint. Neurovascular intact pre and post application. Patient feels that the knee is unstable when he bears weight. He will be placed in a knee immobilizer for support. Unfortunately crutches are made very difficult for the patient to use given the splint on the left rest Radiography Diagnostic Testing: Clinical Impression(s) from Imaging Studies Knee X-Ray 09/30/23 11:50 IMPRESSION: New large joint effusion. No demonstrated fracture. Electronically Signed: Luis Solis MD at 12:13 EST , Wrist X-Ray 09/30/23 11:50 IMPRESSION: Suspected fracture of the dorsum of the triquetrum. Mild soft tissue swelling along the dorsum of the wrist. Electronically Signed: Luis Solis MD at 12:11 EST , Discharge Plan Triage Chief Complaint: Trauma ED Provider: Roderick Alarcon Dx/Rx/DC Orders Clinical Impression: Effusion of left knee, Fracture of triquetral bone of left wrist, Knee pain, left Instructions: ED Fracture, Wrist, General Prescriptions: New oxycodone-acetaminophen [oxycodone-acetaminophen] 5-325 mg tablet 1 tab PO Q6H PRN PRN (Reason: Pain) 3 Days Qty: 12 0RF No Action (DME) compress.stocking,knee,reg,lrg Misc See Rx Instructions .MEDSUPPLY Qty: 2 1RF Rx Instructions: wear daily for venous insufficiency 20-30 mmHg metronidazole [Metrogel] 1 % gel 1 applic topical QHS Qty: 60 1RF alpha lipoic acid 600 mg capsule 600 mg PO TID Qty: 120 1RF gabapentin 600 mg tablet 600 mg PO BID Qty: 60 3RF Rx Instructions: TAKE 1 TABLET BY MOUTH TWICE A DAY spironolactone 25 mg tablet 25 mg PO BID Qty: 120 3RF lidocaine 5 % adhesive patch,medicated 1 patch TOPICAL DAILY PRN (Reason: rib pain) Qty: 30 1RF Rx Instructions: leave on most painful area for 12 hrs metronidazole 0.75 % gel 1 applic topical BID Qty: 45 1RF lactulose 10 gram/15 mL (15 mL) solution 10 g PO BID Qty: 750 3RF furosemide 20 mg tablet 20 mg PO BIDLX 120 Days Qty: 240 0RF levetiracetam 1,000 mg tablet 1,000 mg PO BID Qty: 180 1RF levothyroxine 50 mcg tablet 50 mcg PO DAILY Qty: 60 3RF meclizine 25 mg tablet 25 mg PO BID PRN (Reason: dizziness) Qty: 60 2RF Primary Care Provider: Kem Farmer Referrals: Kem Farmer MD [Primary Care Provider] - Kostas Ahmadi MD [Med Staff - Active Staff] - As soon as possible Disposition Disposition: Home, Self Care
--- NOTE | 2023-09-30 11:50 | RAD_ITS ---
STUDY: X-RAY - LEFT WRIST REASON FOR EXAM: Male, 53 years old. Injury. TECHNIQUE: 3 views of the left wrist were obtained. COMPARISON: None. FINDINGS: Normal visualized distal radius and ulna. Normal radiocarpal articulation. Normal distal radioulnar articulation. There is a suspected fracture of the dorsum of the triquetrum. Normal remainder of the carpal bones. Normal carpal articulations. Normal carpometacarpal articulation of the thumb. Normal second through fifth carpometacarpal articulations. Normal visualized metacarpal bones. There is mild soft tissue swelling along the dorsum of the wrist. RAD/Wrist min 3 Views IMPRESSION: Suspected fracture of the dorsum of the triquetrum. Mild soft tissue swelling along the dorsum of the wrist. Electronically Signed: Luis Solis MD at 12:11 EST ,
--- NOTE | 2023-09-30 11:50 | RAD_ITS ---
STUDY: X-RAY - LEFT KNEE REASON FOR EXAM: Male, 53 years old. Injury. TECHNIQUE: 4 views of the left knee. COMPARISON: Left knee radiographs dated 11/30/2019. FINDINGS: Normal visualized distal femur. Normal visualized proximal tibia and fibula. Normal proximal tibiofibular articulation. There is no demonstrated fracture. Normal medial femorotibial compartment. Normal lateral femorotibial compartment. Normal patellofemoral articulation. There is a new large volume joint effusion. The soft tissue structures are unremarkable. RAD/Knee 4 or More Views IMPRESSION: New large joint effusion. No demonstrated fracture. Electronically Signed: Luis Solis MD at 12:13 EST ,
[2023-09-30] MEDS: oxyCODONE 5 MG Tablet 10 MG PO (12:23)
== END 2023-09-30 13:01 | disposition home or self-care (01) ==
PROVIDERS: Emergency Provider Emergency Medicine; PCP Internal Medicine; Visit Provider Emergency Medicine
DX: S62.102A Fracture of unspecified carpal bone, left wrist, initial encounter for closed fracture (principal); R56.9 Unspecified convulsions; M25.562 Pain in left knee; E78.5 Hyperlipidemia, unspecified; I10 Essential (primary) hypertension; M25.462 Effusion, left knee; W18.09XA Striking against other object with subsequent fall, initial encounter; Y99.0 Civilian activity done for income or pay; Y92.69 Other specified industrial and construction area as the place of occurrence of the external cause; Z79.899 Other long term (current) drug therapy; E03.9 Hypothyroidism, unspecified; Z96.643 Presence of artificial hip joint, bilateral; F17.220 Nicotine dependence, chewing tobacco, uncomplicated
CPT/HCPCS: 29125; 73110; 73564; 99283

== ENCOUNTER → 2024-01-04 | Outpatient (CLI) | payer MEDICAID, SELFPAY ==
[2024-01-04 12:38] LABS: Absolute Lymphocyte Count 1.02 X10^3/uL (0.83-4.51); Absolute Neutrophil Count 3.1 X10^3/uL (2.0-7.7); Basophil# 0.03 X10^3/uL; Basophil% 0.6 % (0-1); Eosinophil# 0.12 X10^3/uL; Eosinophils% 2.6 % (0-5); Hematocrit 39.3 % (40-54); Hemoglobin 13.6 g/dL (13.0-16.5); Lymphocyte # 1.02 X10^3/ul (0.83-4.51); Lymphocyte % 21.7 % (19-41); Mean Corp Hgb Conc 34.6 g/dL (32-36); Mean Corpuscular Hgb 36.1 pg (27.0-32.0); Mean Corpuscular Volume 104.2 fL (80-94); Mean Platelet Vol. 9.3 fl (6.2-12.0); Monocyte# 0.46 X10^3/uL; Monocyte% 9.8 % (0-10); NRBC Flagged by Analyzer 0 % (0-5); Neutrophil # 3.05 X10^3/uL (2.7-7.7); Neutrophil % 64.9 % (47-70); Platelet Count 120 K/mm3 (150-450); RBC Distribution Width CV 14.6 % (11.6-14.6); RBC Distribution Width SD 56.4 fl (35.1-43.9); Red Blood Count 3.77 M/mm3 (4.6-6.2); White Blood Count 4.7 K/mm3 (4.4-11.0)
[2024-01-04 14:06] LABS: ALB/GLOB Ratio 0.7 RATIO (0.9-2.4); AST(SGOT) 93 U/L (15-37); Alanine Aminotransfer ALT/SGPT 45 U/L (16-61); Alkaline Phosphatase 208 U/L (45-117); Anion Gap 6 (5-15); BUN 4 mg/dL (7-18); BUN/Creat Ratio 5.8 RATIO (10-20); Calcium,Total 9.4 mg/dL (8.5-10.1); Chloride 104 mmol/L (98-107); Creatinine, Serum 0.69 mg/dL (0.70-1.30); EST Glomerular Filtration Rate 128 mL/min (>60); Est Glom Filt Rate - Afr Amer 155 mL/min (>60); Globulin 4.2 g/dL (2.2-4.2); Glucose 96 mg/dL (74-106); Protein, Total 7.2 g/dL (6.4-8.2); Sodium Level 136 mmol/L (136-145)
[2024-01-04 15:03] LABS: Thyroid Stim Hormone (TSH) 7.39 uIU/mL (0.358-3.74)
== END | disposition home or self-care (01) ==
LOC: BIMLAB 11:27
PROVIDERS: PCP Internal Medicine; Referring Provider Internal Medicine; Visit Provider Internal Medicine
DX: K70.10 Alcoholic hepatitis without ascites (principal); E03.9 Hypothyroidism, unspecified
CPT/HCPCS: 36415; 80053; 84443; 85025

== ENCOUNTER 2024-02-29 15:30 | Outpatient (RCR) | payer OTHER, SELFPAY ==
--- NOTE | 2023-12-29 06:52 | HP.OTEVAL ---
Patient's Visit Information Visit Information Visit Information: ALYSSA HAMLIN is a 53 year old M, referred to Occupational Therapy by Dr. Elpidio Oseguera MD, with a diagnosis of Left Traumatic rupture of oth ligament of wrist/nondislp. triquetrum fx. Date of Evaluation: 12/28/23 Occupational Therapist: Eden Pineda, OTR/Mack, CHT Subjective Subjective: Thi 53 year old male was seen for OT eval with dx of traumatic rupture of oth ligament of left wrist. pt states this was from a work injury sustained on Sep.30. 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 pt states you open the doors up, and they roll the large drain pipe down embankment and a towmotor will then pick them up from there. Pt states there was a truck parked where it should not have been and he went out to try to stop it. and during this time other co-works had let their pipe down and this hit him from behind. pt states he tried to return to work but due to pain went to contact and service clerks supervisor and they called his temp agency contact and service clerks supervisor and she took him to ER. pt went to [facility] did x/rays with dx of wrist and knee fx. pt states he was placed in soft plaster splint and then pt went to form MRI at [facility]. pt states he was seen by Dr. Oseguera about a month ago. pt said he could do cortisone and states he would rec'd sx but he would not do it. Pt states he returns to see Dr. Oseguera 12/29/23. pt he is worried about his income and being off work pt states he is right handed. pt would like to return to work and his PLOF. ADLs Comments: pt lives alone does not drive difficulty with sit to stand due to right knee injury and unable to push up off chair with left UE due to increase pain Pain left wrist: Current Pain Intensity: 4 Pain Intensity Range: 8 ROM Forearm: right/left WFL supination Pronation WNL Wrist: right 70/50 left 45/20 pain with wrist flexion ROM Comments: right RD 15 left 10 Right UD 20 left 10 Strength Director Medical Affairs: right 55# left 30# Lateral Pinch: right 18# left 10# Tripod Pinch: right 16# left 6# Strength Comments: painful with resistive testing Sensation Sensation Comments: denies change or slight difference pt states neuropathy dx about 20 yeas ( takes gabapentin) Quick DASH-Disab of Arm,Shoulder& Hand Quick DASH Score: 63.3325 Goals Goal:: pt will demo a increase in left dispatcher service chief strength by 20# or greater to return to his PLOF by d.c pt will demo a increase in left lateral and tripod pinch by 4# to increase pts ind.with ADLs by d.c Goal:: pt will demo a increase in left wrist ROM by 20* or greater to increase pts ind.with ADLs by d/c Goal:: pt will report no pain greater than 2/10 with use of left UE with ADLs/IADls and work tasks by d.c Goal:: pt will demo understanding of brace use by end of 2d session to increase soft tissue healing. Rehabilitation General Assessment: Pt demo with decrease wrist ROM and weakness of left UE. This limits pts functional use of left UE with ADLs and use of right hand with work tasks. Pt states he will see his ortho hand dr. hollie beckford this week in hopes to return to his PLOF. Pt would benefit from skilled OT services 2-3x week for 4 weeks to return pt to his PLOF. Rehabilitation Potential: Good Anticipated Interventions Anticipated Interventions: A/AAROM/PROM, Strengthening, Triggerpoint Release, Modalities, Orthoses, Joint Protection/Energy Conservation, Ergonomic Education, Education re assistive Equipment, Education re Diagnosis and Home Program Visit Plan Frequency: 2-3x /Week Duration: 4 Weeks General Plan: pt to see Dr. Oumar Beckford will see if he will release for wrist stabilization ed. and transition pt as tolerated to PRE TEXT: Thank you for the opportunity to evaluate your patient. For Medicare and Medicare HMO plans, please review the plan of care and approve it. It will need to be FAXED BACK to us at [phone] for Medicare purposes. Please let me know if there are questions or concerns regarding this plan of care. Physician Signature: Date:
--- NOTE | 2024-02-19 07:11 | HP.OTREVAL ---
Re-Evaluation Intro: Dr. Elpidio Oseguera MD, It has been my pleasure to treat ALYSSA HAMLIN over the last 12 visits for Left Traumatic rupture of oth ligament of wrist/nondislp. triquetrum fx. Please see the progress note below for an update on the occupational therapy plan of care! Subjective Subjective: Pt arrived on time; states this is his last visit for his wrist (starts PT on Thursday for his knee) pt has been seen for 12 of approved OT sessions- Objective Objective/Function: left wrist ROM 70/60 increase from 50/30 left air hose coupler strength 40# increase from 20# left lateral pinch 20# increase from 8# left tripod pinch 14# pt reports he is doing better and using his hand with some tasks- ( still some difficulty with getting out to the tub) Therapist ed. pt to continue with his HEP and return to use as able- heat Ice as needed - pt has made good gains with his ROM and strength- at this time pt will initiate PT for his knee. No further C9 request for OT at this time. pt has met 4/5 goals at this time. pt to cont. with HEP. Plan Plan Plan: pt to cont. with HEP- use hand as tolerated pt has met 4/5 OT goals Goals Goals Patient Goals: Regain Mobility, Regain Strength, Decrease Pain, Return to Work and Use Hand/Wrist/Arm Normally Again Goal:: pt will demo a increase in left air hose coupler strength by 20# or greater to return to his PLOF by d.c (goal met) pt will demo a increase in left lateral and tripod pinch by 4# to increase pts ind.with ADLs by d.c ( goal met) Goal:: pt will demo a increase in left wrist ROM by 20* or greater to increase pts ind.with ADLs by d/c (goal met) Goal:: pt will report no pain greater than 2/10 with use of left UE with ADLs/IADls and work tasks by d.c (progressing) Goal:: pt will demo understanding of brace use by end of 2d session to increase soft tissue healing. (goal met) Anticipated Interventions Anticipated Interventions Anticipated Interventions: A/AAROM/PROM, Strengthening, Triggerpoint Release, Modalities, Orthoses, Joint Protection/Energy Conservation, Ergonomic Education, Education re assistive Equipment, Education re Diagnosis and Home Program Re-Evaluation Ending Re-evaluation ending: Please do not hesitate to contact me at [phone] by phone or if you have questions or concerns regarding this new plan of care! Sincerely, Eden Pineda, OTR/L, CHT
--- NOTE | 2024-02-22 16:03 | HP.PTEVAL_ITS ---
Patient's Visit Information Visit Information Visit Information: ALYSSA HAMLIN is a 54 year old M referred to Physical Therapy by Dr. Elpidio Oseguera MD with a diagnosis of SPRAIN OF OTHER SPECIFIED PARTS OF LEFT KNEE. Date of Evaluation: 02/22/24 Physical Therapist: Herberth Elizabeth, PT, Cert MDT, OCS Visit Plan Frequency: 2-3x /Week Duration: 6 Weeks Plan: PT INTERVENTIONS ROM KNEE ,FLEXABILITY ,STRENGTHENING QUADS/HAMS/HIP ,FUNCTIONAL STRENGTHENING AND AEROBIC EX'S ,MODALTIES( PRN) Subjective Subjective: This 54 y/o male presents to physical therapy with left knee pain. Patient injury knee at Work Nov 8th hit and rolled over by a tubing ,patient had immediate pain in knee and fracture wrist and just finished OT. Patient then received order received for left knee for sprain. Patient had x-ray /MRI lateral tibial plateau fracture . Patient was provided with medication pain which patient ran out. Patient located global knee described sharp and dull. Aggravating stairs ,unable squatting kneeling . Patient has too do 1 steps step at time. Patient symptoms worse with extended distances. Alleviating factors rest. Patient denies paresthesia/tingling.Patient sleeping okay. Patient seen DR Galdino Whitman with brace . Patient condition affects QOL and return to work full duty , Currently ,is on light duty . 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 Patient goals to RTW and function. 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 Pain Left Knee: Pain Intensity (Out of 10): 4 Pain Intensity Range: 10 Objective Objective: POSTURE: mild forward posture trunk GAIT: ambulates with mild forward posture slow tadeo mild decrease stance time LLE STAIRS: one steps at time with rail AROM: supine knee flexion 0-120 degrees FLEXABILITY: hamstrings miln tight MMT: ( peak force) quads 24.2 ,hamstrings 17.9 ,hip flexion 25.6 ,hip abduction 20.2 Special Tests L Knee Chanel - ACL: Positive L Knee Anterior Drawer - ACL: Positive L Knee Posterior Sag - PCL: Negative L Knee Valgus - MCL: Negative L Knee Varus - LCL: Negative L Knee Patellar Apprehension - PFS: Negative L Knee Patellar Grind - PFS: Negative Comments: 1+ laxity ACL Balance/Special Test Scores Lower Extremity Functional Score: 28 Goals Goal 1:: Patient to be I with HEP for knee Goal Time Frame: 4-6 Weeks Goal 2:: Patient to demonstrate 50% improvement with less pain and improve function and RTW full duty Goal Time Frame: 4-6 Weeks Goal 3:: Patient to improve AROM by 5-10 degrees to improve stairs Goal Time Frame: 4-6 Weeks Goal 4:: Patient to improve peak force quads/hams/hip by 10 # strength to improve function and job demands Goal Time Frame: 4-6 Weeks Goal 5:: Patient to improve LFES score by 10 points to improve QOL and function Goal Time Frame: 4-6 Weeks Rehabilitation Potential Physical Therapy Diagnosis: This patient had injury to left knee apparently had left tibial plateau fracture with pain ,weakness ,decrease ROM and unable RTW full duty thus benefit from skilled PT Rehabilitation Potential: Good Anticipated Interventions Patient/Client Instruction: Educate patient on: Condition and Plan of Care For the Purpose of:: To decrease pain, To increase ROM, To improve nutrient delivery to tissue, To increase oxygenation perfusion, To improve muscle performance and motor function, To increase tolerance to activity/condition /position, To improve ability of physical actions for home/community/work/leisure, To improve health of tissue, To decrease soft tissue restriction, To increase flexibility/ROM, To improve endurance, To improve balance, To reduce risk of recurrence and To improve tolerance to ADL's Therapeutic Exercise to Include: Strength training, Endurance training, Balance training, Flexibilty training and Active ROM Comment: QUADS/HAMS/HIP For the Purpose of:: To decrease pain, To increase ROM, To improve muscle performance and motor function, To improve ability to perform ADL's, To increase tolerance to activity/condition/position, To improve ability of physical actions for home/community/work/leisure, To improve health of tissue, To decrease soft tissue restriction, To increase flexibility/ROM, To improve balance, To improve tolerance to ADL's and Other Other: RTW -FULL DUTY TENS: Yes IF ES: Yes Cryotherapy (ice pack, ice massage): Yes Thermo therapy (hot pack): Yes Ultrasound (thermal/non thermal): Yes For the Purpose of:: To decrease pain, To increase ROM, To improve nutrient delivery to tissue, To improve health of tissue and To decrease soft tissue restriction Text: Thank you for the opportunity to evaluate your patient. For Medicare and Medicare HMO plans, please review the plan of care and approve it. It will need to be FAXED BACK to us at [phone] for Medicare purposes. For Medicare only, by signing this I certify the plan of care. Please let me know if there are questions or concerns regarding this plan of care. Physician Signature: Date:
== END 2024-02-29 19:00 | disposition home or self-care (01) ==
LOC: PT 15:30
PROVIDERS: PCP Internal Medicine; Referring Provider Orthopaedic Surgery; Visit Provider Orthopaedic Surgery Hand Surgery
DX: S63.392D Traumatic rupture of other ligament of left wrist, subsequent encounter (principal)
CPT/HCPCS: 97110; 97162; 97166; 97530

== ENCOUNTER → 2024-06-24 | Outpatient (CLI) | payer MEDICAID, SELFPAY ==
[2024-06-24 16:20] LABS: Absolute Lymphocyte Count 0.82 X10^3/uL (0.83-4.51); Absolute Neutrophil Count 2.7 X10^3/uL (2.0-7.7); Basophil# 0.03 X10^3/uL; Basophil% 0.7 % (0-1); Eosinophil# 0.11 X10^3/uL; Eosinophils% 2.7 % (0-5); Hematocrit 40.9 % (40-54); Hemoglobin 14.1 g/dL (13.0-16.5); Lymphocyte # 0.82 X10^3/ul (0.83-4.51); Lymphocyte % 20.1 % (19-41); Mean Corp Hgb Conc 34.5 g/dL (32-36); Mean Corpuscular Hgb 36.5 pg (27.0-32.0); Mean Platelet Vol. 11.7 fl (6.2-12.0); Monocyte# 0.38 X10^3/uL; Monocyte% 9.3 % (0-10); NRBC Flagged by Analyzer 0 % (0-5); Neutrophil # 2.71 X10^3/uL (2.7-7.7); Neutrophil % 66.7 % (47-70); POSITIVE COUNT YES; Platelet Count 82 K/mm3 (150-450); RBC Distribution Width CV 14.5 % (11.6-14.6); RBC Distribution Width SD 56.5 fl (35.1-43.9); Red Blood Count 3.86 M/mm3 (4.6-6.2); White Blood Count 4.1 K/mm3 (4.4-11.0)
[2024-06-24 16:21] LABS: Differential Indicated SCAN CRITERIA MET
[2024-06-24 17:05] LABS: ALB/GLOB Ratio 0.6 RATIO (0.9-2.4); AST(SGOT) 109 U/L (15-37); Alanine Aminotransfer ALT/SGPT 53 U/L (16-61); Albumin, Serum 2.7 g/dL (3.2-5.0); Alkaline Phosphatase 217 U/L (45-117); Anion Gap 5 (5-15); BUN 3 mg/dL (7-18); BUN/Creat Ratio 4.2 RATIO (10-20); Calcium,Total 9.1 mg/dL (8.5-10.1); Chloride 106 mmol/L (98-107); Creatinine, Serum 0.72 mg/dL (0.70-1.30); EST Glomerular Filtration Rate 122 mL/min (>60); Est Glom Filt Rate - Afr Amer 147 mL/min (>60); Globulin 4.5 g/dL (2.2-4.2); Glucose 112 mg/dL (74-106); Protein, Total 7.2 g/dL (6.4-8.2); Sodium Level 138 mmol/L (136-145); Thyroid Stim Hormone (TSH) 4.57 uIU/mL (0.358-3.74)
[2024-06-24 17:09] LABS: Differential Comment SCANNED
== END | disposition home or self-care (01) ==
LOC: BIMLAB 10:49
PROVIDERS: PCP Internal Medicine; Referring Provider Internal Medicine; Visit Provider Internal Medicine
DX: K70.10 Alcoholic hepatitis without ascites (principal); E03.9 Hypothyroidism, unspecified
CPT/HCPCS: 36415; 80053; 84443; 85025

== ENCOUNTER 2024-09-20 11:30 | Emergency (ER) | payer MEDICAID, SELFPAY ==
[2024-09-20 11:32] VITALS: BP 123/75; PULSE 86; RESP 16; TEMP 36.6; O2SAT 98; BMI 30.7
[2024-09-20 13:02] VITALS: BP 131/76; PULSE 81; RESP 16; O2SAT 98
[2024-09-20 14:47] VITALS: BP 135/76; PULSE 81; RESP 12; O2SAT 98
--- NOTE | 2024-09-20 15:02 | EDS_ITS ---
HPI History of Present Illness Chief Complaint: Male Pain/Injury Pain Onset: Weeks (1) Context: Gradual Onset Timing: Continuous Worsened by: Walking, coughing Relieved by: Nothing Urinary Symptoms Genitourinary Symptoms: No Symptoms Narrative Narrative: Patient presents with left inguinal pain that has been getting worse over the past week. Patient describes her pain as burning and dull. Patient states it is over the left inguinal area. Patient states it is worse with walking. Patient states nothing seems to help with it. Patient denies any fevers or chills. Patient admits to some nausea and vomiting. Patient states his pain is also worse with coughing. Patient is concerned that he has a hernia. Patient denies any dysuria or hematuria. Patient denies any urinary frequency. [facility] Medical History Dark urine Elevated CA 19-9 level Dermatitis Hypothyroidism Decreased urination Erectile dysfunction Change in bowel habits Nausea & vomiting Swallowing problem Abdominal pain Thrombocytopenia Alcoholic hepatitis Obesity (BMI 30.0-34.9) Abnormal thyroid function test Venous insufficiency of both lower extremities Back pain Limb weakness Balance problem Knee pain Diarrhea Chest pain Neuropathy of both feet Fracture, ribs Brain atrophy History of alcohol abuse Arthritis Seizures Glaucoma Hypertension Hyperlipemia Home Medications ?Medication ?Instructions ?Recorded ?Last Taken ?Type compress.stocking,knee,reg,lrg #2 ea 09/18/21 Unknown Rx lidocaine 5 % topical patch 1 patch topical DAILY PRN rib pain 07/10/22 Unknown Rx #30 ea meclizine 25 mg tablet 25 mg PO BID PRN for dizziness #60 02/15/24 Unknown Rx (Travel-Ease (meclizine)) TABLETS alpha lipoic acid 600 mg capsule 600 mg PO TID #120 caps 06/24/24 Unknown Rx furosemide 20 mg tablet 20 mg PO BIDLX 120 days #180 tabs 06/24/24 Unknown Rx lactulose 10 gram/15 mL (15 mL) 10 g (15 mL) PO BID potassium 3 06/24/24 Unknown Rx oral solution months #2,700 mL spironolactone 25 mg tablet 25 mg PO BID #180 TABLETS 06/24/24 Unknown Rx compress.stocking,knee,reg,lrg #2 ea 07/01/24 Unknown Rx gabapentin 600 mg tablet 600 mg PO BID pain #60 tabs 08/04/24 Unknown Rx levetiracetam 1,000 mg tablet 1,000 mg PO BID ? #180 tabs 08/04/24 Unknown Rx levothyroxine 50 mcg tablet 50 mcg PO DAILY thyroid #90 tabs 08/04/24 Unknown Rx Allergy/AdvReac Type Severity Reaction Status Date / Time No Known Allergies Allergy Verified 09/20/24 11:31 Family History Father Alcoholism Heart disease Myocardial infarction Mother Arthritis Sister Depression Grandfather Myocardial infarction Grandfather CVA (cerebral vascular accident) Surgical History History of surgical procedure on eye proper using laser History of bilateral hip replacements History of tonsillectomy Social History Smoking Status: Never smoker Smokeless tobacco user: chewing tobacco Electronic Cigarette Use: not used second hand exposure: Yes alcohol intake: current alcohol intake frequency: 3 or more drinks per day Alcohol type: beer details: 4-6 beers a day substance use type: does not use what type of physical activity do you participate in: walking frequency: daily ROS ROS ED Constitutional Constitutional ED: Denies chills or fever(s) Eyes Eyes: Denies blurry vision or change in vision ENT ENT ED: Denies rhinorrhea or sore throat Cardiovascular Cardiovascular: Denies chest pain or palpitations Respiratory/Chest Respiratory/Chest: Reports cough; Denies dyspnea Gastrointestinal Gastrointestinal: Reports nausea and vomiting Genitourinary Genitourinary ED: Denies dysuria or hematuria Musculoskeletal Musculoskeletal: Denies back pain or neck pain Integumentary Reports rash; Denies abscess Neurologic Neurologic: Denies headache(s) or weakness Allergic/Immunologic Allergic/Immunologic ED: Denies mouth swelling or urticaria EXAM Physical Exam Const Vital Signs: 09/20/24 11:32 09/20/24 13:02 09/20/24 14:47 Temperature 97.8 F Temperature Source Temporal Pulse Rate 86 81 81 Respiratory Rate 16 16 12 Blood Pressure 123/75 H 131/76 H 135/76 H Blood Pressure Mean 91 94 95 Pulse Ox 98 98 98 Oxygen Delivery Method Room Air Room Air 09/20/24 16:00 Temperature Temperature Source Pulse Rate 62 Respiratory Rate 14 Blood Pressure 115/72 Blood Pressure Mean 86 Pulse Ox 98 Oxygen Delivery Method Room Air Positive well nourished and well developed General Appearance ED: well developed and NAD HEENT Reports moist mucous membranes Eyes General Eye ED: Yes scleral icterus Neck supple and no JVD Resp normal respiratory effort and clear to auscultation bilaterally Cardio regular rate and regular rhythm GI non-tender GI Narrative: There is ascites with a fluid wave. There is no tenderness to palpation or percussion. There are no masses palpated. Palpation: soft Narrative: There is mild tenderness of the left inguinal canal. There are no masses palpated. There is no hernia noted. There is no erythema or warmth noted. There is no pain over the testicle. Extremity normal to inspection Neuro oriented x3, CN's II-XII intact bilaterally, moves all extremities, no focal motor deficits and no sensory deficits noted Sensorium / Orientation: alert Motor Exam: strength 5/5 throughout Skin General Skin Exam: jaundice MDM MDM MDM Narrative Medical decision making narrative: Differential diagnosis includes inguinal hernia, ureteral calculus, urinary tract infection, pancreatitis, bowel obstruction, and perforation. CBC will be obtained to assess for leukocytosis and anemia. Basic metabolic profile will be obtained to assess for electrolyte abnormality and renal function. Lipase will be obtained to assess for pancreatitis. PT with INR and PTT will be obtained to assess for her coagulopathy. Urinalysis will be obtained to assess for urinary tract infection and hematuria. Lab Data Attestation: I reviewed the patient's lab results. Lab results narrative: CBC was reviewed. There is a mild anemia with a hemoglobin of 12.7 and hematocrit 35.7. White blood cell count was slightly low at 3.6. Platelets were slightly low at 76. These are consistent with previous results. Basic metabolic profile was reviewed and was essentially within normal limits. PT with INR and PTT were reviewed. Pro time was 20.3, INR is 1.7, and PTT was 42.7. Urinalysis was reviewed. There is no evidence of urinary tract infection or hematuria. Labs: Laboratory Results - last 24 hr 09/20/24 15:30 WBC 3.6 L RBC 3.47 L Hgb 12.7 L Hct 35.7 L MCV 102.9 H MCH 36.6 H MCHC 35.6 RDW Std Deviation 53.9 H RDW Coeff of Demond 14.2 Plt Count 76 L MPV 11.0 Immature Gran % (Auto) 0.300 Neut % (Auto) 63.4 Lymph % (Auto) 22.5 [place] % (Auto) 11.1 H Eos % (Auto) 1.9 Baso % (Auto) 0.8 Absolute Neuts (auto) 2.3 Absolute Lymphs (auto) 0.81 L Nucleated RBC % 0 PT 20.3 H INR 1.7 APTT 42.7 H Sodium 137 Potassium 3.9 Chloride 105 Carbon Dioxide 26.0 Anion Gap 6 BUN 4 L Creatinine 0.66 L Estim Creat Clear Calc 156.03 Est GFR (MDRD) Af Amer 161 Est GFR (MDRD) Non-Af 133 BUN/Creatinine Ratio 6.0 L Glucose 107 H Calcium 9.1 Lipase 63 Urine Color Yellow Urine Clarity Clear Urine pH 6.0 Ur Specific [place] 1.010 Urine Protein Negative Urine Glucose (UA) Normal Urine Ketones Negative Urine Occult Blood Negative Urine Nitrite Negative Urine Bilirubin Negative Urine Urobilinogen 1 H Ur Leukocyte Esterase Negative Urine RBC 0 SEEN Urine WBC 0 SEEN Ur Squamous Epith Cells 0 SEEN Urine Bacteria 1+ Urine Mucus 0 SEEN Radiography Diagnostic Testing: Clinical Impression(s) from Imaging Studies Abdomen/Pelvis CT 09/20/24 16:42 IMPRESSION: 1. Findings consistent with cirrhosis and secondary evidence of portal hypertension. 2. No acute abnormalities. 3. Diffuse nephrocalcinosis. Electronically Signed: Jeremías Ibrahim MD at 17:37 EDT , CT scan of the abdomen pelvis was obtained. There are findings consistent with cirrhosis and portal hypertension. There is no acute abnormality noted. There is no inguinal hernia noted. There is no bowel obstruction or perforation. There is no ureteral calculi. This was interpreted by the radiologist and was also independently reviewed by myself. Treatment and Re-Evaluation Narrative: Patient was advised of his findings. Patient was instructed to take Tylenol as needed for pain. Patient was instructed to follow-up with his primary care physician in 3 to 5 days. Patient was instructed return if worse in any way. Patient understood and was agreeable with the plan. All questions were answered. Discharge Plan Triage Chief Complaint: Male Pain/Injury ED Provider: Dung Christine Dx/Rx/DC Orders Clinical Impression: Left inguinal pain, Cirrhosis Instructions: ED Pain, Acute, Uncertain Cause Prescriptions: No Action (DME) compress.stocking,knee,reg,lrg Misc See Rx Instructions .MEDSUPPLY Qty: 2 1RF Rx Instructions: wear daily for venous insufficiency 20-30 mmHg alpha lipoic acid 600 mg capsule 600 mg PO TID Qty: 120 1RF spironolactone 25 mg tablet 25 mg PO BID Qty: 180 0RF furosemide 20 mg tablet 20 mg PO BIDLX 120 Days Qty: 180 1RF lactulose 10 gram/15 mL (15 mL) solution 10 g PO BID 90 Days Qty: 2700 3RF lidocaine 5 % adhesive patch,medicated 1 patch TOPICAL DAILY PRN (Reason: rib pain) Qty: 30 1RF Rx Instructions: leave on most painful area for 12 hrs meclizine [Travel-Ease (meclizine)] 25 mg tablet 25 mg PO BID PRN (Reason: for dizziness) Qty: 60 0RF (DME) compress.stocking,knee,reg,lrg Misc See Rx Instructions .MEDSUPPLY Qty: 2 1RF Rx Instructions: wear daily for venous insufficiency 20-30 mmHg gabapentin 600 mg tablet 600 mg PO BID Qty: 60 1RF Rx Instructions: TAKE 1 TABLET BY MOUTH TWICE A DAY levetiracetam 1,000 mg tablet 1,000 mg PO BID Qty: 180 0RF levothyroxine 50 mcg tablet 50 mcg PO DAILY Qty: 90 0RF Stand Alone Forms: ED Work / School Excuse Primary Care Provider: Kem Farmer Referrals: Kem Farmer MD [Primary Care Provider] - 5-7 Days Print Language: Uzbek Disposition Disposition: Home, Self Care
[2024-09-20 15:42] LABS: Mucous, Urine 0 SEEN /hpf (<or=2+); Red Blood Cells-Urine 0 SEEN /hpf (0-5); Squamous Epithelial Cells - UA 0 SEEN /hpf (0-5); White Blood Cells 0 SEEN /hpf (0-5)
[2024-09-20 15:46] LABS: Color, Urine Yellow (Yellow); Glucose, Dipstick Normal (Normal); Ketone-Dipstick Negative (Negative); Leukocyte Esterase-Dipstick Negative /ul (Negative); Nitrite-Dipstick Negative (Negative); Occult Blood-Urine Negative /ul (Negative); Protein-Dipstick Negative (Negative); Urine Bilirubin Dipstick Negative (Negative); Urine Clarity Clear (Clear); Urine Urobilinogen 1 mg/dl (Normal)
[2024-09-20 15:49] LABS: Absolute Lymphocyte Count 0.81 X10^3/uL (0.83-4.51); Absolute Neutrophil Count 2.3 X10^3/uL (2.0-7.7); Basophil# 0.03 X10^3/uL; Basophil% 0.8 % (0-1); Eosinophil# 0.07 X10^3/uL; Eosinophils% 1.9 % (0-5); Hematocrit 35.7 % (40-54); Hemoglobin 12.7 g/dL (13.0-16.5); Lymphocyte # 0.81 X10^3/ul (0.83-4.51); Lymphocyte % 22.5 % (19-41); Mean Corp Hgb Conc 35.6 g/dL (32-36); Mean Corpuscular Hgb 36.6 pg (27.0-32.0); Mean Corpuscular Volume 102.9 fL (80-94); Monocyte% 11.1 % (0-10); NRBC Flagged by Analyzer 0 % (0-5); Neutrophil # 2.28 X10^3/uL (2.7-7.7); Neutrophil % 63.4 % (47-70); POSITIVE COUNT YES; Platelet Count 76 K/mm3 (150-450); RBC Distribution Width CV 14.2 % (11.6-14.6); RBC Distribution Width SD 53.9 fl (35.1-43.9); Red Blood Count 3.47 M/mm3 (4.6-6.2); White Blood Count 3.6 K/mm3 (4.4-11.0)
[2024-09-20 15:54] LABS: International Normalized Ratio 1.7; Prothrombin Time (Protime)PT. 20.3 SECONDS (11.7-14.9)
[2024-09-20 15:55] LABS: Bacteria 1+ /hpf (None Seen); Partial Thromboplast Time 42.7 Seconds (24.1-36.2)
[2024-09-20 15:57] LABS: Anion Gap 6 (5-15); BUN 4 mg/dL (7-18); Calcium,Total 9.1 mg/dL (8.5-10.1); Chloride 105 mmol/L (98-107); Creatinine, Serum 0.66 mg/dL (0.70-1.30); EST Glomerular Filtration Rate 133 mL/min (>60); Est Glom Filt Rate - Afr Amer 161 mL/min (>60); Estimated Creatinine Clearance 156.03 ml/min; Glucose 107 mg/dL (74-106); Lipase 63 U/L (13-75); Potassium 3.9 mmol/L (3.5-5.1); Sodium Level 137 mmol/L (136-145)
[2024-09-20 16:00] VITALS: BP 115/72; PULSE 62; RESP 14; O2SAT 98
--- NOTE | 2024-09-20 16:42 | CT_ITS ---
EXAM: CT ABDOMEN AND PELVIS WITHOUT INTRAVENOUS CONTRAST CLINICAL INDICATION: Left inguinal pain TECHNIQUE: Helically acquired images were obtained of the abdomen and pelvis without intravenous contrast. This CT exam was performed using one or more of the following dose reduction techniques: automated exposure control, adjustment of the mA and/or kV according to patient size, and/or use of iterative reconstruction technique. RADIATION DOSE: CTDIvol = 14.75 mGy, DLP = 821.95 mGy-cm COMPARISON: 07/16/2023 FINDINGS: LOWER THORAX: Unremarkable. Lung bases are clear. No cardiomegaly. No significant pericardial effusion. ABDOMEN: LIVER: Heterogeneous mildly nodular liver with overlying fluid, suggestive of cirrhosis. No focal mass. GALLBLADDER AND BILE DUCTS: Cholelithiasis. No gallbladder distention or wall edema. No intra- or extrahepatic biliary ductal dilation. PANCREAS: Unremarkable. No focal cystic mass. SPLEEN: Splenomegaly, stable. ADRENALS: Unremarkable. No nodules. KIDNEYS AND URETERS: Both kidneys suggest nephrocalcinosis without definite formed stones. Normal renal size and position. No hydronephrosis. No renal masses. STOMACH AND BOWEL: Evaluation of the GI tract is limited by absence of oral contrast. Cannot exclude stomach wall thickening. No dilated loops of bowel or evidence for obstruction. Cannot exclude segmental thickening of the arechiga of the small or large bowel. Cannot exclude enteritis or colitis. Moderate diffuse fecal retention. Appendix within normal limits. PELVIS: APPENDIX: No evidence of acute appendicitis. BLADDER: Unremarkable. REPRODUCTIVE: Unremarkable as visualized. No mass. ABDOMEN and PELVIS: INTRAPERITONEAL SPACE: Small amounts of free fluid. Findings suggestive of cirrhosis. No free air. BONES/JOINTS: Degenerative changes. No suspicious lytic or blastic abnormality. SOFT TISSUES: Diffuse increased density throughout the mesenteric fat suggestive of edema. No discrete abdominal or pelvic wall hernia. VASCULATURE: Probable extensive upper abdominal varices although this evaluation is markedly limited by the absence of IV contrast. Abdominal aorta is non-dilated. LYMPH NODES: Unremarkable. No enlarged lymph nodes. CT/Abdomen/Pelvis without Cont IMPRESSION: 1. Findings consistent with cirrhosis and secondary evidence of portal hypertension. 2. No acute abnormalities. 3. Diffuse nephrocalcinosis. Electronically Signed: Jeremías Ibrahim MD at 17:37 EDT ,
[2024-09-20 17:54] VITALS: BP 120/90; PULSE 83; RESP 14; TEMP 36.6; O2SAT 98
== END 2024-09-20 17:55 | disposition home or self-care (01) ==
PROVIDERS: Emergency Provider Emergency Medicine; PCP Internal Medicine; Visit Provider Emergency Medicine
DX: R10.2 Pelvic and perineal pain (principal); K74.60 Unspecified cirrhosis of liver; R11.2 Nausea with vomiting, unspecified; I10 Essential (primary) hypertension; R05.9 Cough, unspecified; F17.220 Nicotine dependence, chewing tobacco, uncomplicated; E78.5 Hyperlipidemia, unspecified; E03.9 Hypothyroidism, unspecified
CPT/HCPCS: 74176; 80048; 81001; 83690; 85025; 85610; 85730; 99282; A4216

== ENCOUNTER 2024-10-17 17:17 | Emergency (ER) | payer OTHER, MEDICAID, SELFPAY ==
[2024-10-17 17:18] VITALS: BP 132/81; PULSE 95; RESP 18; TEMP 36.1; O2SAT 96; BMI 31.6
--- NOTE | 2024-10-17 17:40 | EDS_ITS ---
HPI History of Present Illness Chief Complaint: Edema Informant: patient Narrative Narrative: 54-year-old male presents for edema in his legs. He states has been there for years and is not getting any better and he has a follow-up appointment with his doctor at the end of October and when he called today they could not get him in so he presents here for it. States he is on spironolactone and furosemide, does not think he is urinating as much as he should be remaining on those 2 diuretics. He denies any dyspnea with exertion or orthopnea or chest discomfort or other chest symptoms. He states he is a heavy drinker, when asked about the status of his cirrhosis which is in his chart, he states he has never been diagnosed with cirrhosis. He states multiple doctors seem to think he is jaundice, but he has not noticed any yellow discoloration or pruritus. He denies any abdominal pain or distention/swelling or blood in his stool or melena. He has tried compression stockings but they did not help so he stopped wearing them because they were uncomfortable. [facility] Medical History Dark urine Elevated CA 19-9 level Dermatitis Hypothyroidism Decreased urination Erectile dysfunction Change in bowel habits Nausea & vomiting Swallowing problem Abdominal pain Thrombocytopenia Alcoholic hepatitis Obesity (BMI 30.0-34.9) Abnormal thyroid function test Venous insufficiency of both lower extremities Back pain Limb weakness Balance problem Knee pain Diarrhea Chest pain Neuropathy of both feet Fracture, ribs Brain atrophy History of alcohol abuse Arthritis Seizures Glaucoma Hypertension Hyperlipemia Home Medications ?Medication ?Instructions ?Recorded ?Last Taken ?Type compress.stocking,knee,reg,lrg #2 ea 09/18/21 Unknown Rx lidocaine 5 % topical patch 1 patch topical DAILY PRN rib pain 07/10/22 Unknown Rx #30 ea meclizine 25 mg tablet 25 mg PO BID PRN for dizziness #60 02/15/24 Unknown Rx (Travel-Ease (meclizine)) TABLETS alpha lipoic acid 600 mg capsule 600 mg PO TID #120 caps 06/24/24 Unknown Rx furosemide 20 mg tablet 20 mg PO BIDLX 120 days #180 tabs 06/24/24 Unknown Rx lactulose 10 gram/15 mL (15 mL) 10 g (15 mL) PO BID potassium 3 06/24/24 Unknown Rx oral solution months #2,700 mL spironolactone 25 mg tablet 25 mg PO BID #180 TABLETS 06/24/24 Unknown Rx compress.stocking,knee,reg,lrg #2 ea 07/01/24 Unknown Rx levetiracetam 1,000 mg tablet 1,000 mg PO BID ? #180 tabs 08/04/24 Unknown Rx levothyroxine 50 mcg tablet 50 mcg PO DAILY thyroid #90 tabs 08/04/24 Unknown Rx gabapentin 600 mg tablet 600 mg PO BID pain #60 tabs 10/03/24 Unknown Rx Allergy/AdvReac Type Severity Reaction Status Date / Time No Known Allergies Allergy Verified 10/17/24 17:18 Family History Father Alcoholism Heart disease Myocardial infarction Mother Arthritis Sister Depression Grandfather Myocardial infarction Grandfather CVA (cerebral vascular accident) Surgical History History of surgical procedure on eye proper using laser History of bilateral hip replacements History of tonsillectomy Social History Smoking Status: Never smoker Smokeless tobacco user: chewing tobacco Electronic Cigarette Use: not used second hand exposure: Yes alcohol intake: current alcohol intake frequency: 3 or more drinks per day Alcohol type: beer details: 4-6 beers a day substance use type: does not use what type of physical activity do you participate in: walking frequency: daily ROS ROS ED Constitutional Constitutional ED: Denies chills or fever(s) Eyes Eyes: Denies change in vision or diplopia ENT ENT ED: Denies rhinorrhea or sore throat Cardiovascular Cardiovascular: Reports leg edema; Denies chest pain, palpitations or syncope Respiratory/Chest Respiratory/Chest: Denies cough or dyspnea Gastrointestinal Gastrointestinal: Reports other Details: Left groin abdominal pain/bulging especially when coughs or lifts something at work ; Denies diarrhea, melena, nausea or vomiting Genitourinary Genitourinary ED: Denies dysuria or hematuria Musculoskeletal Musculoskeletal: Denies back pain or neck pain Integumentary Denies abscess or rash Neurologic Neurologic: Denies headache(s), paresthesias or weakness Psychiatric Psychiatric: Denies anxiety or suicidal thoughts EXAM Physical Exam Const Vital Signs: 10/17/24 17:18 10/17/24 17:26 Temperature 96.9 F L Temperature Source Temporal Pulse Rate 95 Respiratory Rate 18 Respiratory Effort Normal Non-Labored Respiratory Pattern Normal Blood Pressure 132/81 H Blood Pressure Mean 98 Pulse Ox 96 Oxygen Delivery Method Room Air Positive well nourished and well developed General Appearance ED: well developed and NAD HEENT Reports moist mucous membranes normocephalic and atraumatic Eyes PERRL and EOMs intact bilaterally General Eye ED: Yes scleral icterus Neck full ROM and supple Resp normal respiratory effort and clear to auscultation bilaterally Cardio regular rate, regular rhythm and no murmurs GI non-tender and non-distended GI Narrative: Mildly obese. Benign abdomen. However, examined while standing, there is a palpable tender bulge in the left inguinal area consistent with a direct inguinal hernia that is also palpable below but there is no scrotal mass or asymmetry or scrotal/testicular tenderness. The direct hernia feels reducible. Auscultation: normoactive bowel sounds Palpation: soft Back/Spine no CVA tenderness General Back: other FROM Extremity normal to inspection General Extremety ED: Yes edema; Negative for pulses abnormal or tenderness General Extremity: edema bilateral lower extremity Details: moderate (Pitting bilaterally. No changes of chronic stasis dermatitis or cellulitis); Negative for pulses abnormal Neuro oriented x3 and CN's II-XII intact bilaterally Neuro Narrative: Decreased sensation both feet chronic per patient with neuropathy Sensorium / Orientation: awake and alert Motor Exam: strength 5/5 throughout Psych mental status grossly normal Skin no rashes or lesions noted and no wounds General Skin Exam: jaundice MDM MDM MDM Narrative Medical decision making narrative: CT exam above I did evaluate the patient's hernia, which is what he was here for couple weeks ago, was a side note according to him today, but he was concerned about it because the other doctor told him the CT was negative. I reviewed this. He does have something down in the left inguinal area that is probably a hernia that the radiologist did not appear to mention, and on my exam he does have a direct reducible inguinal hernia. I told him that he would need to follow-up with surgery as an outpatient for this, and that the CT does not always show reducible hernias especially since patients are often lying supine. He understood. With regards to his edema and jaundice, I told the patient that he probably does have cirrhosis based on his labs and prior CT and portal hypertension and that the best thing for him would be to stop drinking. He told me that he has undergone rehab multiple times the last time he went was 5 years ago and has curb his drinking since then but still drinks, anywhere between 1 and 6 beers per day depending on whether he was working that day or it is the weekend. His urinalysis had not yet returned at the time, however the patient apparently told staff that he could not wait any longer and eloped prior to my reevaluating him in discussing anything more with him regarding any of this. History & Record Review Additional record(s) reviewed:: Prior ED visit and Prior labs (and CT) Lab Data Attestation: I reviewed the patient's lab results. Labs: Laboratory Results - last 24 hr 10/17/24 10/17/24 15:50 18:09 WBC 3.6 L RBC 3.42 L Hgb 12.4 L Hct 35.4 L MCV 103.5 H MCH 36.3 H MCHC 35.0 RDW Std Deviation 57.4 H RDW Coeff of Demond 14.8 H Plt Count 69 L MPV 10.1 Immature Gran % (Auto) 0.600 Neut % (Auto) 58.3 Lymph % (Auto) 29.5 [place] % (Auto) 9.4 Eos % (Auto) 1.4 Baso % (Auto) 0.8 Absolute Neuts (auto) 2.1 Absolute Lymphs (auto) 1.07 Nucleated RBC % 0 Platelet Estimate MOD DEC RBC Morphology N CHROM Anisocytosis 1+ Macrocytosis 1+ Sodium 142 Potassium 3.5 Chloride 107 Carbon Dioxide 29.0 Anion Gap 6 BUN 4 L Creatinine 0.70 Estim Creat Clear Calc 149.08 Est GFR (MDRD) Af Amer 151 Est GFR (MDRD) Non-Af 125 BUN/Creatinine Ratio 5.7 L Glucose 125 H Calcium 8.5 Total Bilirubin 7.30 H Direct Bilirubin 3.76 H AST 126 H ALT 48 Alkaline Phosphatase 241 H B-Natriuretic Peptide 54.6 Total Protein 6.9 Albumin 2.6 L Globulin 4.3 H Urine Color Yellow Urine Clarity Clear Urine pH 7.0 Ur Specific [place] 1.010 Urine Protein Negative Urine Glucose (UA) Normal Urine Ketones Negative Urine Occult Blood Negative Urine Nitrite Negative Urine Bilirubin Negative Urine Urobilinogen 4 H Ur Leukocyte Esterase Negative Urine RBC 0-5 SEEN Urine WBC 0-5 SEEN Ur Squamous Epith Cells 0 SEEN Urine Bacteria RARE Urine Mucus 0 SEEN Discharge Plan Triage Chief Complaint: Edema ED Provider: Rakesh Loja Dx/Rx/DC Orders Clinical Impression: Alcoholic cirrhosis of liver, Bilateral edema of lower extremity, Direct inguinal hernia of left side Prescriptions: No Action (DME) compress.stocking,knee,reg,lrg Misc See Rx Instructions .MEDSUPPLY Qty: 2 1RF Rx Instructions: wear daily for venous insufficiency 20-30 mmHg alpha lipoic acid 600 mg capsule 600 mg PO TID Qty: 120 1RF spironolactone 25 mg tablet 25 mg PO BID Qty: 180 0RF furosemide 20 mg tablet 20 mg PO BIDLX 120 Days Qty: 180 1RF lactulose 10 gram/15 mL (15 mL) solution 10 g PO BID 90 Days Qty: 2700 3RF lidocaine 5 % adhesive patch,medicated 1 patch TOPICAL DAILY PRN (Reason: rib pain) Qty: 30 1RF Rx Instructions: leave on most painful area for 12 hrs meclizine [Travel-Ease (meclizine)] 25 mg tablet 25 mg PO BID PRN (Reason: for dizziness) Qty: 60 0RF (DME) compress.stocking,knee,reg,lrg Misc See Rx Instructions .MEDSUPPLY Qty: 2 1RF Rx Instructions: wear daily for venous insufficiency 20-30 mmHg levetiracetam 1,000 mg tablet 1,000 mg PO BID Qty: 180 0RF levothyroxine 50 mcg tablet 50 mcg PO DAILY Qty: 90 0RF gabapentin 600 mg tablet 600 mg PO BID Qty: 60 1RF Rx Instructions: TAKE 1 TABLET BY MOUTH TWICE A DAY Primary Care Provider: Kem Farmer Referrals: Kem Farmer MD [Primary Care Provider] - Print Language: [place] Island[place] Disposition Disposition: Elopement Discharge Date/Time: 10/17/24 19:01
[2024-10-17 18:06] LABS: Absolute Lymphocyte Count 1.07 X10^3/uL (0.83-4.51); Absolute Neutrophil Count 2.1 X10^3/uL (2.0-7.7); Basophil# 0.03 X10^3/uL; Basophil% 0.8 % (0-1); Eosinophil# 0.05 X10^3/uL; Eosinophils% 1.4 % (0-5); Hematocrit 35.4 % (40-54); Hemoglobin 12.4 g/dL (13.0-16.5); Lymphocyte # 1.07 X10^3/ul (0.83-4.51); Lymphocyte % 29.5 % (19-41); Mean Corpuscular Hgb 36.3 pg (27.0-32.0); Mean Corpuscular Volume 103.5 fL (80-94); Mean Platelet Vol. 10.1 fl (6.2-12.0); Monocyte# 0.34 X10^3/uL; Monocyte% 9.4 % (0-10); NRBC Flagged by Analyzer 0 % (0-5); Neutrophil # 2.12 X10^3/uL (2.7-7.7); Neutrophil % 58.3 % (47-70); POSITIVE COUNT YES; Platelet Count 69 K/mm3 (150-450); RBC Distribution Width CV 14.8 % (11.6-14.6); RBC Distribution Width SD 57.4 fl (35.1-43.9); Red Blood Count 3.42 M/mm3 (4.6-6.2); White Blood Count 3.6 K/mm3 (4.4-11.0)
[2024-10-17 18:12] LABS: Differential Indicated SCAN CRITERIA MET
[2024-10-17 18:15] LABS: Mucous, Urine 0 SEEN /hpf (<or=2+); Squamous Epithelial Cells - UA 0 SEEN /hpf (0-5)
[2024-10-17 18:23] LABS: AST(SGOT) 126 U/L (15-37); Alanine Aminotransfer ALT/SGPT 48 U/L (16-61); Albumin, Serum 2.6 g/dL (3.2-5.0); Alkaline Phosphatase 241 U/L (45-117); Anion Gap 6 (5-15); BUN 4 mg/dL (7-18); BUN/Creat Ratio 5.7 RATIO (10-20); Bilirubin, Direct 3.76 mg/dL (0.00-0.30); Calcium,Total 8.5 mg/dL (8.5-10.1); Chloride 107 mmol/L (98-107); EST Glomerular Filtration Rate 125 mL/min (>60); Est Glom Filt Rate - Afr Amer 151 mL/min (>60); Estimated Creatinine Clearance 149.08 ml/min; Globulin 4.3 g/dL (2.2-4.2); Glucose 125 mg/dL (74-106); Potassium 3.5 mmol/L (3.5-5.1); Protein, Total 6.9 g/dL (6.4-8.2); Sodium Level 142 mmol/L (136-145)
[2024-10-17 18:24] LABS: Color, Urine Yellow (Yellow); Glucose, Dipstick Normal (Normal); Ketone-Dipstick Negative (Negative); Leukocyte Esterase-Dipstick Negative /ul (Negative); Nitrite-Dipstick Negative (Negative); Occult Blood-Urine Negative /ul (Negative); Protein-Dipstick Negative (Negative); Urine Bilirubin Dipstick Negative (Negative); Urine Clarity Clear (Clear); Urine Urobilinogen 4 mg/dl (Normal)
[2024-10-17 18:31] LABS: BNP,B-Type NATRIURETIC PEPTIDE 54.6 pg/mL (0-100)
[2024-10-17 18:39] LABS: Anisocytosis 1+; Macrocytosis 1+; Platelet Estimate MOD DEC (ADEQ); Red Cell Morphology N CHROM NORMAL (NORM C&C)
[2024-10-17 19:05] LABS: Bacteria RARE /hpf (None Seen); Red Blood Cells-Urine 0-5 SEEN /hpf (0-5); White Blood Cells 0-5 SEEN /hpf (0-5)
== END 2024-10-17 19:01 | disposition left against medical advice (07) ==
PROVIDERS: Emergency Provider Emergency Medicine; PCP Internal Medicine; Visit Provider Emergency Medicine
DX: R60.0 Localized edema (principal); K70.30 Alcoholic cirrhosis of liver without ascites; R56.9 Unspecified convulsions; I10 Essential (primary) hypertension; K40.90 Unilateral inguinal hernia, without obstruction or gangrene, not specified as recurrent; Z79.899 Other long term (current) drug therapy; E78.5 Hyperlipidemia, unspecified; E03.9 Hypothyroidism, unspecified; Z79.890 Hormone replacement therapy; Z96.643 Presence of artificial hip joint, bilateral; F17.220 Nicotine dependence, chewing tobacco, uncomplicated
CPT/HCPCS: 80048; 80076; 81001; 83880; 85025; 99283; A4216

== ENCOUNTER 2024-11-24 17:38 | Emergency (ER) | payer MEDICAID, OTHER, SELFPAY ==
[2024-11-24 17:39] VITALS: BP 128/78; PULSE 81; RESP 16; TEMP 36.2; O2SAT 98; BMI 29.8
--- NOTE | 2024-11-24 18:15 | RAD_ITS ---
EXAM: XR CHEST, 1 VIEW CLINICAL INDICATION: chest pain TECHNIQUE: Frontal view of the chest. COMPARISON: September 30, 2021. FINDINGS: LUNGS AND PLEURAL SPACES: Mildly low lung volumes compared to prior exam. No pneumothorax. No effusion. HEART: Unremarkable. Cardiac silhouette not enlarged. MEDIASTINUM: Central airways and mediastinal contour are unremarkable. BONES/JOINTS: Similar old healed fractures of multiple left posterior lateral ribs with callus. SOFT TISSUES: Unremarkable. RAD/Chest 1 View (Portable) IMPRESSION: No acute findings in the chest. Electronically Signed: Chaya Ferrari MD at 20:41 EST ,
[2024-11-24] MEDS: oxyCODONE 5 MG Tablet PO (20:56)
[2024-11-24] MEDS: Lidocaine 5% Patch 1 PATCH TOPICAL (20:56)
--- NOTE | 2024-11-24 21:07 | EX.ED.GENINJ ---
HPI History of Present Illness Chief Complaint: Chest Other Informant: patient Narrative Narrative: Patient is a 54-year-old male with history of liver cirrhosis secondary to alcohol abuse was noted. Presenting for concern of infection. Patient had a mechanical fall 2 days ago. 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 He slipped on the ice and fell. He landed on his left side. States his left side/chest took the brunt of his injuries. He states he did hit his head but had no loss of conscious. He is not on any blood thinners. He denies any headache. Denies any associate numbness or tingling. Is complaining of continued left-sided rib pain. Pain is worse with movement or deep inspiration. Describes as sharp. Thinks he might of broken a rib. Has been taking his prescribed gabapentin for pain but nothing else. No other complaints or concerns reported at this time. [facility] Medical History Dark urine Elevated CA 19-9 level Dermatitis Hypothyroidism Decreased urination Erectile dysfunction Change in bowel habits Nausea & vomiting Swallowing problem Abdominal pain Thrombocytopenia Alcoholic hepatitis Obesity (BMI 30.0-34.9) Abnormal thyroid function test Venous insufficiency of both lower extremities Back pain Limb weakness Balance problem Knee pain Diarrhea Chest pain Neuropathy of both feet Fracture, ribs Brain atrophy History of alcohol abuse Arthritis Seizures Glaucoma Hypertension Hyperlipemia Home Medications ?Medication ?Instructions ?Recorded ?Last Taken ?Type compress.stocking,knee,reg,lrg #2 ea 09/18/21 Unknown Rx lidocaine 5 % topical patch 1 patch topical DAILY PRN rib pain 07/10/22 Unknown Rx #30 ea meclizine 25 mg tablet 25 mg PO BID PRN for dizziness #60 02/15/24 Unknown Rx (Travel-Ease (meclizine)) TABLETS alpha lipoic acid 600 mg capsule 600 mg PO TID #120 caps 06/24/24 Unknown Rx furosemide 20 mg tablet 20 mg PO BIDLX 120 days #180 tabs 06/24/24 Unknown Rx lactulose 10 gram/15 mL (15 mL) 10 g (15 mL) PO BID potassium 3 06/24/24 Unknown Rx oral solution months #2,700 mL spironolactone 25 mg tablet 25 mg PO BID #180 TABLETS 06/24/24 Unknown Rx compress.stocking,knee,reg,lrg #2 ea 07/01/24 Unknown Rx levetiracetam 1,000 mg tablet 1,000 mg PO BID ? #180 tabs 08/04/24 Unknown Rx levothyroxine 50 mcg tablet 50 mcg PO DAILY thyroid #90 tabs 08/04/24 Unknown Rx gabapentin 600 mg tablet 600 mg PO BID pain #60 tabs 10/03/24 Unknown Rx oxycodone 5 mg tablet 5 mg PO Q6H PRN pain 3 days #12 11/24/24 Unknown Rx tabs Allergy/AdvReac Type Severity Reaction Status Date / Time No Known Allergies Allergy Verified 11/24/24 17:38 Family History Father Alcoholism Heart disease Myocardial infarction Mother Arthritis Sister Depression Grandfather Myocardial infarction Grandfather CVA (cerebral vascular accident) Surgical History History of surgical procedure on eye proper using laser History of bilateral hip replacements History of tonsillectomy Social History Smoking Status: Never smoker Smokeless tobacco user: chewing tobacco Electronic Cigarette Use: not used second hand exposure: Yes alcohol intake: current alcohol intake frequency: 3 or more drinks per day Alcohol type: beer details: 4-6 beers a day substance use type: does not use what type of physical activity do you participate in: walking frequency: daily ROS ROS ED Constitutional Constitutional ED: Denies chills or fever(s) Eyes Eyes: Denies change in vision Cardiovascular Cardiovascular: Reports chest pain Respiratory/Chest Respiratory/Chest: Reports dyspnea and other Details: mild hemoptysis ; Denies cough Gastrointestinal Gastrointestinal: Denies abdominal pain, nausea or vomiting Integumentary Denies rash Neurologic Neurologic: Denies headache(s) or weakness Hematologic/Lymphatic Hematologic/Lymphatic: Reports easy bleeding and easy bruising EXAM Physical Exam Const Vital Signs: 11/24/24 17:39 11/24/24 19:33 Temperature 97.1 F L Temperature Source Temporal Pulse Rate 81 Respiratory Rate 16 Respiratory Effort Normal Blood Pressure 128/78 H Blood Pressure Mean 94 Pulse Ox 98 Oxygen Delivery Method Room Air Positive well nourished and well developed General Appearance ED: well developed and NAD HEENT atraumatic Eyes PERRL and EOMs intact bilaterally General Eye ED: Yes other Other Details: Scleral icterus present Neck full ROM General: Negative for tenderness Chest Wall inspection of chest normal Chest Narrative: No deformity of the chest wall. Tenderness palpation over the left anterior chest wall approximately ribs 5 through 7. No flail chest appreciated. Resp normal respiratory effort and clear to auscultation bilaterally Auscultation: Negative for rales or rhonchi Cardio regular rhythm Rate: regular rate GI GI Narrative: Mildly distended abdomen with fluid wave. No ecchymosis or bruising noted to the abdominal wall Extremity normal to inspection and full ROM General Extremety ED: Negative for edema General Extremity: Negative for edema Neuro oriented x3, moves all extremities and no focal motor deficits Sensorium / Orientation: alert Psych mental status grossly normal and thought process normal Skin no rashes or lesions noted and no wounds Skin Narrative: Jaundice discoloration of the skin, scattered bruising noted on left hand MDM MDM MDM Narrative Medical decision making narrative: Patient is evaluated for chest wall pain after mechanical fall. Patient protocol chest x-ray reviewed by myself as well as radiology which did not show any acute process. Clinically suspect a rib fracture. Given his coagulopathy I did recommend CT imaging to further evaluate for rib fracture or any possible underlying soft tissue injury such as hemothorax or splenic injury. Patient overall is well-appearing with normal vital signs. He does appear jaundiced which is chronic for him. He is mentating appropriately. He is also offered head CT given that he did hit his head and has known thrombocytopenia. Patient declines further imaging stating is already been here for couple hours waiting and does not want to be here longer waiting on imaging. Counseled that we could be missing more serious internal bleeding. Patient is acting appropriate and does have capacity to make this decision and declined further imaging. Will be treated presumptively as if he does have rib fracture with Lidoderm patch and a short course of oxycodone. Recommend take Tylenol as well as needed for pain. Given that he has what appears to be worsening thrombocytopenia will have him hold off on NSAIDs. Is given return precautions. Counseled that if he starts to feel lightheaded, have worsening pain, fever or difficulty breathing he should return to the emergency room. He does verbalize agreement understand with this plan. Given a work note for today and tomorrow per his request. Radiography Diagnostic Testing: Clinical Impression(s) from Imaging Studies Chest X-Ray 11/24/24 18:15 IMPRESSION: No acute findings in the chest. Electronically Signed: Chaya Ferrari MD at 20:41 EST , Discharge Plan Triage Chief Complaint: Chest Other ED Provider: Caridad Go Dx/Rx/DC Orders Clinical Impression: Left-sided chest wall pain, Fall, Contusion of rib on left side Instructions: ED Rib Contusion or Minor Fracture Prescriptions: New oxycodone 5 mg tablet 5 mg PO Q6H PRN (Reason: pain) 3 Days Qty: 12 0RF No Action (DME) compress.stocking,knee,reg,lrg Misc See Rx Instructions .MEDSUPPLY Qty: 2 1RF Rx Instructions: wear daily for venous insufficiency 20-30 mmHg alpha lipoic acid 600 mg capsule 600 mg PO TID Qty: 120 1RF spironolactone 25 mg tablet 25 mg PO BID Qty: 180 0RF furosemide 20 mg tablet 20 mg PO BIDLX 120 Days Qty: 180 1RF lactulose 10 gram/15 mL (15 mL) solution 10 g PO BID 90 Days Qty: 2700 3RF lidocaine 5 % adhesive patch,medicated 1 patch TOPICAL DAILY PRN (Reason: rib pain) Qty: 30 1RF Rx Instructions: leave on most painful area for 12 hrs meclizine [Travel-Ease (meclizine)] 25 mg tablet 25 mg PO BID PRN (Reason: for dizziness) Qty: 60 0RF (DME) compress.stocking,knee,reg,lrg Misc See Rx Instructions .MEDSUPPLY Qty: 2 1RF Rx Instructions: wear daily for venous insufficiency 20-30 mmHg levetiracetam 1,000 mg tablet 1,000 mg PO BID Qty: 180 0RF levothyroxine 50 mcg tablet 50 mcg PO DAILY Qty: 90 0RF gabapentin 600 mg tablet 600 mg PO BID Qty: 60 1RF Rx Instructions: TAKE 1 TABLET BY MOUTH TWICE A DAY Stand Alone Forms: ED Work / School Excuse Primary Care Provider: Kem Farmer Referrals: Kem Farmer MD [Primary Care Provider] - Activity Restrictions/Additional Instructions: Use incentive spirometer a couple times a day to help decrease the risk of pneumonia. We are presuming there is a rib fracture but it was not seen on the plain x-ray. At this time you declined further CT imaging to make sure there is no major traumatic injury or internal bleeding which you are more at risk of because of your low platelets and liver disease. Please return if you develop lightheadedness or have worsening pain. In addition because of your low platelets I would have you just take oxycodone and Tylenol and avoid NSAID such as ibuprofen. You may also use [id number] exercise Salonpas Lidoderm patches to help with the pain. Print Language: Polish Disposition Disposition: Home, Self Care
[2024-11-24 21:23] VITALS: BP 134/82; PULSE 76; RESP 18; TEMP 36.7; O2SAT 97
== END 2024-11-24 21:35 | disposition home or self-care (01) ==
PROVIDERS: Emergency Provider Emergency Medicine; PCP Internal Medicine; Visit Provider Emergency Medicine
DX: R07.89 Other chest pain (principal); I10 Essential (primary) hypertension; S20.212A Contusion of left front wall of thorax, initial encounter; F17.220 Nicotine dependence, chewing tobacco, uncomplicated; E78.5 Hyperlipidemia, unspecified; E03.9 Hypothyroidism, unspecified; R17 Unspecified jaundice; W01.10XA Fall on same level from slipping, tripping and stumbling with subsequent striking against unspecified object, initial encounter
CPT/HCPCS: 71045; 99283

== ENCOUNTER → 2024-12-16 | Outpatient (CLI) | payer MEDICAID, OTHER, SELFPAY ==
[2024-12-16 12:06] LABS: Absolute Lymphocyte Count 1.01 X10^3/uL (0.83-4.51); Absolute Neutrophil Count 2.4 X10^3/uL (2.0-7.7); Basophil# 0.05 X10^3/uL; Basophil% 1.2 % (0-1); Eosinophil# 0.15 X10^3/uL; Eosinophils% 3.7 % (0-5); Hematocrit 36.6 % (40-54); Hemoglobin 12.5 g/dL (13.0-16.5); Lymphocyte # 1.01 X10^3/ul (0.83-4.51); Lymphocyte % 25.1 % (19-41); Mean Corp Hgb Conc 34.2 g/dL (32-36); Mean Corpuscular Hgb 36.4 pg (27.0-32.0); Mean Corpuscular Volume 106.7 fL (80-94); Mean Platelet Vol. 10.5 fl (6.2-12.0); Monocyte# 0.45 X10^3/uL; Monocyte% 11.2 % (0-10); NRBC Flagged by Analyzer 0 % (0-5); Neutrophil # 2.36 X10^3/uL (2.7-7.7); Neutrophil % 58.6 % (47-70); POSITIVE COUNT YES; Platelet Count 91 K/mm3 (150-450); RBC Distribution Width CV 14.7 % (11.6-14.6); RBC Distribution Width SD 58.6 fl (35.1-43.9); Red Blood Count 3.43 M/mm3 (4.6-6.2)
[2024-12-16 12:35] LABS: ALB/GLOB Ratio 0.5 RATIO (0.9-2.4); AST(SGOT) 86 U/L (15-37); Alanine Aminotransfer ALT/SGPT 43 U/L (16-61); Albumin, Serum 2.4 g/dL (3.2-5.0); Alkaline Phosphatase 399 U/L (45-117); Anion Gap 5 (5-15); BUN 3 mg/dL (7-18); BUN/Creat Ratio 4.2 RATIO (10-20); Calcium,Total 8.7 mg/dL (8.5-10.1); Chloride 104 mmol/L (98-107); Creatinine, Serum 0.72 mg/dL (0.70-1.30); EST Glomerular Filtration Rate 121 mL/min (>60); Est Glom Filt Rate - Afr Amer 146 mL/min (>60); Globulin 4.5 g/dL (2.2-4.2); Glucose 91 mg/dL (74-106); Potassium 3.7 mmol/L (3.5-5.1); Protein, Total 6.9 g/dL (6.4-8.2); Sodium Level 137 mmol/L (136-145)
== END | disposition home or self-care (01) ==
LOC: BIMLAB 10:12
PROVIDERS: PCP Internal Medicine; Referring Provider Internal Medicine; Visit Provider Internal Medicine
DX: K70.31 Alcoholic cirrhosis of liver with ascites (principal); E03.9 Hypothyroidism, unspecified
CPT/HCPCS: 36415; 80053; 84443; 85025

== ENCOUNTER → 2025-03-30 | Outpatient (CLI) | payer OTHER, MEDICAID, SELFPAY ==
--- NOTE | 2025-03-30 08:52 | US_ITS ---
EXAM: Ultrasound-guided left abdominal paracentesis: CLINICAL HISTORY: Cirrhosis. Recurrent ascites. COMPARISON: None. TECHNIQUE: Ultrasound-guided left abdominal paracentesis FINDINGS: Procedure: Following informed consent, and using standard sterile technique, a left abdominal paracentesis was performed under ultrasound guidance. 2% lidocaine local anesthesia was followed by placement of a 5 [place] catheter into the ascites collection. 4.1 L of clear yellow fluid was successfully removed. No complication was encountered, in the patient left the department in good condition without significant complaint. US/Paracentesis with US IMPRESSION: Successful paracentesis, with 4.1 L clear yellow fluid successfully removed. Reading Location: [place] [id number]
[2025-03-30] MEDS: Lidocaine 2% (20 ml mdv) 20 ML Vial INFILT (09:48)
[2025-03-30 10:32] VITALS: BP 134/70; PULSE 86; RESP 18; O2SAT 99
[2025-03-30 10:33] VITALS: BP 115/63; PULSE 78; RESP 18; O2SAT 98
[2025-03-30 10:34] VITALS: BP 103/53; BP 110/56; PULSE 77; PULSE 79; RESP 18; O2SAT 98
== END | disposition home or self-care (01) ==
PROVIDERS: PCP Internal Medicine; Referring Provider Internal Medicine; Visit Provider Internal Medicine
DX: K70.31 Alcoholic cirrhosis of liver with ascites (principal)
CPT/HCPCS: 49083

== ENCOUNTER 2025-04-07 19:29 | Emergency (ER) | payer OTHER, MEDICAID, SELFPAY ==
[2025-04-07 19:30] VITALS: BP 146/90; PULSE 84; RESP 26; TEMP 37; O2SAT 96; BMI 28.9
--- NOTE | 2025-04-07 19:42 | CT_ITS ---
EXAM: CT Cervical Spine Without Intravenous Contrast CLINICAL INDICATION: PAIN TECHNIQUE: Axial computed tomography images of the cervical spine without intravenous contrast. This CT exam was performed using one or more of the following dose reduction techniques: automated exposure control, adjustment of the mA and/or kV according to patient size, and/or use of iterative reconstruction technique. COMPARISON: No relevant prior studies available. FINDINGS: VERTEBRAE: Mild reversal cervical spine lordosis. Degenerative facet arthropathy throughout the cervical spine. No acute fracture. DISCS/SPINAL CANAL/NEURAL FORAMINA: Degenerative disc disease lower cervical spine. SOFT TISSUES: Unremarkable. CT/Spine Cervical without Contras IMPRESSION: 1. No acute fracture. 2. Degenerative changes cervical spine as described. Reading Location: [id number]
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
--- NOTE | 2025-04-07 19:42 | CT_ITS ---
EXAM: CT Head Without Intravenous Contrast CLINICAL INDICATION: PAIN TECHNIQUE: Axial computed tomography images of the head/brain without intravenous contrast. This CT exam was performed using one or more of the following dose reduction techniques: automated exposure control, adjustment of the mA and/or kV according to patient size, and/or use of iterative reconstruction technique. COMPARISON: CT Head dated 07/14/2022 FINDINGS: BRAIN AND EXTRA-AXIAL SPACES: The cerebral and cerebellar sulci are prominent consistent with brain atrophy. Areas of decreased attenuation in the deep cerebral white matter are consistent with small vessel ischemic/degenerative changes. No acute intracranial hemorrhage, midline shift or mass effect. If symptoms persist, further evaluation with MRI is recommended. BONES/JOINTS: Unremarkable. No acute fracture. SOFT TISSUES: Unremarkable. SINUSES: Unremarkable as visualized. No acute sinusitis. MASTOID AIR CELLS: Unremarkable as visualized. No mastoid effusion. CT/Brain/Head without Contrast IMPRESSION: 1. Generalized brain atrophy. 2. Small vessel ischemic/degenerative changes. 3. No acute intracranial hemorrhage, midline shift or mass effect. If symptoms persist, further evaluation with MRI is recommended. Reading Location: [id number]
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
[2025-04-07] MEDS: HYDROcodone Bitartrate/Apap 5/325 Tablet PO (19:52)
[2025-04-07] MEDS: Ondansetron ODT 4 MG Tablet PO ×2 (19:53→21:36)
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
[2025-04-07 21:29] VITALS: PULSE 89; RESP 22; O2SAT 93
[2025-04-07] MEDS: Morphine 4 MG/ML Syringe IM (21:36)
[2025-04-07 23:00] VITALS: BP 128/82; PULSE 72; RESP 18
[2025-04-07 23:23] VITALS: BP 128/82; PULSE 62; RESP 18; TEMP 36.6; O2SAT 91
--- NOTE | 2025-04-07 23:34 | ED.RN ---
pt refused assistance in exiting the building and refused wheelchair in spite of noticeable difficulty and pain with ambulation.
== END 2025-04-07 23:31 | disposition left against medical advice (07) ==
PROVIDERS: Emergency Provider Emergency Medicine; PCP Internal Medicine; Visit Provider Emergency Medicine
DX: S22.42XA Multiple fractures of ribs, left side, initial encounter for closed fracture (principal); K74.60 Unspecified cirrhosis of liver; I10 Essential (primary) hypertension; Z82.49 Family history of ischemic heart disease and other diseases of the circulatory system; R07.81 Pleurodynia; F17.220 Nicotine dependence, chewing tobacco, uncomplicated; S22.41XA Multiple fractures of ribs, right side, initial encounter for closed fracture; Y04.2XXA Assault by strike against or bumped into by another person, initial encounter; R18.8 Other ascites
CPT/HCPCS: 70450; 71250; 72125; 96372; 96374; 96375; 99284

== ENCOUNTER 2025-05-07 14:49 | Emergency (ER) | payer OTHER, MEDICAID, SELFPAY ==
[2025-05-07 14:50] VITALS: BP 115/65; PULSE 83; RESP 16; TEMP 37.4; O2SAT 95; BMI 26.4
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
--- OUTSIDE RECORDS SUMMARY | 2025-05-07 15:49 | XMS RPT_ITS | CCD ---
Author Organization [facility] Care Team Providers Care Control Center Operator Name Role Phone SYSTEM, PROVIDER NOT IN Attending UnavailNAYANA Ogden Primary Care Unavailab Nayana Oneil Primary Care Provider Jaci vailable Unavailable Primary Care Provider UnavailDr. Tana Samano Primary Care Provider [phone] Dr. Tana Farmer Attending Provider [phone] Dr. Tana Farmer Referring Provider [phone] Nayana Solomon Primary Care Provider Tana Farmer MD Primary Care Provider [phone] Dr. Tana Farmer Primary Care Provider [phone] Dr. Tana Farmer Attending Provider [phone] Dr. Tana Farmer Referring Provider [phone] Dr. Caridad Go Emergency Provider Dr. Brian Junior Admit Provider [phone] Dr. Brian Junior Other Provider [phone] Anselmo Edwards Other Provider Unavailable Dr. Abel Parr Attending Provider Dr. Anselmo Edwards Attending Provider Unavailable Dr. Kar Dvae Other Provider Unavaila Dr. Phillip Good Other Provider Dr. Tana Farmer Primary Care Provider [phone] Dr. Tana Farmer Attending Provider [phone] Dr. Tana Farmer Referring Provider [phone] Dr. Caridad Go Emergency Provider Sandi, Dr. Torres Admit Provider [phone] Dr. Brian Junior Other Provider [phone] Dr. Anselmo dEwards Referring Provider Unavailable Jerry, Dr. Subramanian Other Provider Unavailable Karolyn, Dr. Roman Attending Provider Dr. Anselmo Edwards Attending Provider Unavailable Dr. Kar Dave Other Provider Unavaila maribel Man, Dr. Fisher Other Provider Dr. Tana Farmer Primary Care Provider [phone] Dr. Tana Farmer Attending Provider [phone] Dr. Tana Farmer Referring Provider [phone] Dr. Tana Farmer Primary Care Provider [phone] [phone]) Dr. Tana Farmer Attending Provider [phone] Dr. Tana Farmer Referring Provider [phone] Tana Farmer MD Primary Care Provider [phone] TANA FARMER Primary Care Unavailable RAMONA JUNG Attending Unavailable Tana Farmer MD Primary Care Prov ider TAYE HENDERSON Attending Unavaila ble TANA FARMERCTA Primary Care Unav ailable JENSEN CABELLO Attending Unavailable TANA FARMERCTA Primary Care Unav ailable SANDHYABAIRVING MINA Admitting Unav ailable JOHN BECERRIL Consulting Unavailable DUNG MATA Consulting Unavailable Dr. Tana Farmer MD Primary Care Provider Dr. Tana Farmer MD Attending Provider [phone] Dr. Tana Farmer MD Referring Provider [phone] Adan BRAVO, Dr. Huber Giraldo Attending Provider Dr. Dung Christine DO Emergency Provider Oleghe, Efewongbe Primary Care Unavailable Emmett Dung Attending Unavailable Oleghe, Efewongbe Primary Care Unavailable SchwigerDominiqueic Attending Unavailable Oleghe, Efewongbe Primary Care Unavailable Rakesh Loja Attending Unavailable Oleghe, Efewongbe Primary Care Unavailable Oleghe, Efewongbe Referring Unavailable Oleghe, Efewongbe Attending Unavailable Oleghe, Efewongbe Referring Unavailable Joseph Haas Attending Unavailable Oleghe, Efewongbe Primary Care Unavailable Oleghe, Efewongbe Primary Care Unavailable Huber Arellano Attending Unavailable Juan Mt, Carmine Referring Unavailable Oleghe, Efewongbe Primary Care Unavailable Oleghe, Efewongbe Referring Unavailable Joseph Haas Attending Unavailable Oleghe, Efewongbe Primary Care Unavailable Oleghe, Efewongbe Referring Unavailable Carmine Wilson Attending Unavailable Oleghe, Efewongbe Referring Unavailable Oleghe, Efewongbe Primary Care Unavailable Oleghe, Efewongbe Attending Unavailable Huber Arellano Attending Unavailable Oleghe, Efewongbe Primary Care Unavailable Oleghe, Efewongbe Referring Unavailable Oleghe, Efewongbe Primary Care Unavailable Oleghe, Efewongbe Referring Unavailable Oleghe, Efewongbe Attending Unavailable Oleghe, Efewongbe Primary Care Unavailable Oleghe, Efewongbe Referring Unavailable Oleghe, Efewongbe Attending Unavailable Oleghe, Efewongbe Referring Unavailable Oleghe, Efewongbe Primary Care Unavailable Oleghe, Efewongbe Attending Unavailable Oleghe, Efewongbe Primary Care Unavailable Oleghe, Efewongbe Referring Unavailable Oleghe, Efewongbe Attending Unavailable Oleghe, Efewongbe Primary Care Unavailable Caridad Go Attending Unavailable Drain WARP DYEING VAT TENDER.ARMATURE CONNECTOR, Anca Unavailable Marleny BRAVO, Efewongbe B Unavailable Junie YING, Jem Unavailable Loni BRAVO, Nimco Unavailable TANA FARMER Primary Care Unavailable JUAN BIRD NEISHA Admitting UnavailSTEPHANIE Navarrete Consulting Unavailable NIMCO IVEY Attending Unavailable TANA FARMER Primary Care Unavailable TANA FARMER Primary Care Unavailable BRIAN CRAWFORD Attending Unavailable TANA FARMER Primary Care Unavailable TANA FARMER Primary Care Unavailable Medications Current Medications Medication Drug Class(es) Dates Sig (Normalized) Sig (Original) acetaminophen 325 mg / oxyCODONE hydrochloride 5 mg oral tablet (18 sources) Opioid Agonist Start: 04-07-2025 take 1 tablet by mouth every six hours as needed for pain Oxycodone-Acetami nophen 5-325 mg tablet Active 1 {tbl} PO EVERY 6 HOURS NEEDED as needed for Pain 12 April 07, 2025 Start: 09-30-2023 End: 06-24-2024 Oxycodone-Acetaminophen 5-32 5 mg tablet Discontinued 1 {tbl} PO EVERY 6 HOURS NEEDED as needed for Pain 10 25September 30, 2023 June 24, 2024 10:13am Start: 09-30-2023 take 1 tablet by olu th every six hours as needed Oxycodone-Acetaminophen Active 1 TABLET PO EVERY 6 HOURS NEEDED 10 25September 30, 2023 Start: 09-30-2023 Start: 07-14-2022 End: 06-18-2023 Oxycodone-Acetaminophen 5-32 5 mg tablet Discontinued 1 {tbl} PO EVERY 6 HOURS NEEDED as needed for pain 11 04July 14, 2022 June 18, 2023 2:26pm Start: 07-14-2022 End: 06-18-2023 take 1 tablet by mouth every six hours as needed Oxycodone-Acetaminophen Discontinued 1 TABLET PO EVERY 6 HOURS NEEDED 11 04July 14, 2022 June 18, 2023 2:26pm Start: 07-14-2022 End: 06-18-2023 Start: 11-24-2021 take 1 tablet by olu th every six hours Oxycodone-Acetaminophen (Percocet) 5-325 mg tablet Active 1 TABLET PO EVERY 6 HOURS 12 November 24, 2021 5:01pm cephalexin 500 mg oral capsule (17 sources) Cephalosporin Antibacterial Start: 03-24-2025 take 1 capsule by mouth every six hours Cephalexin 500 mg capsule Active 500 mg PO EVERY 6 HOURS March 24, 2025 12:00am Start: 03-11-2025 End: 03-20-2025 take 1 capsule by mouth four times daily cephALEXin (KEFLEX) 500 MG capsule Take 1 (one) capsule (500 mg total) by mouth 4 (four) times a day for 5 days . 20 capsule 03/15/2025 11:24 AM EDT 03/15/2025 03/20/2025 Active Start: 11-10-2019 End: 12-13-2019 take 1 capsule by mouth every six hours Cephalexin 500 MG capsule Discontinued 500 mg PO EVERY 6 HOURS 40 November 10, 2019 1:00am December 13, 2019 5:21pm ciprofloxacin 3 mg/ml ophthalmic solution (1 source) Quinolone Antimicrobial Start: 06-11-2023 End: 06-18-2023 take 1-2 drop(s) into the eye(s) every two hours, then take 1-2 drop(s) into the eye(s) every four hours ciprofloxacin HCl (CILOXAN) 0.3 % ophthalmic solution Use 1-2 drops inside right lower eyelid(s) every 2 hours while awake for 2 days, then 1-2 drops every 4 hours for next 5 days. 5 mL 0 06/11/2023 06/18/2023 Active Comment on above: Use 1-2 drops inside right lower eyelid(s) every 2 hours while awake for 2 days, then 1-2 drops every 4 hours for next 5 days. Compress.Stocking,K nee,Reg,Lrg (9 sources) Start: 09-18-2021 Compress.Stocking, Knee,Reg,Lrg Active 0 .MEDSUPPLY 2 September 18, 2021 5:57pm wear daily for venous insufficiency 20-30 mmHg Start: 09-18-2021 Compress.Stock ing,Knee,Reg,Lrg Active 0 .MEDSUPPLY 2 September 17, 2021 11:00pm wear daily for venous insufficiency 20-30 mmHg Start: 09-18-2021 Compress.Stock ing,Knee,Reg,Lrg Active 0 .MEDSUPPLY 2 September 18, 2021 12:00am wear daily for venous insufficiency 20-30 mmHg Compress.Stocking,Knee,Reg,L rg misc (4 sources) Start: 07-01-2024 Compress.Stocking,Knee,Reg,L rg misc Active 0 .MEDSUPPLY 2 July 01, 2024 12:00am wear daily for venous insufficiency 20-30 mmHg Start: 09-18-2021 Compress.Stock ing,Knee,Reg,Lrg misc Active 0 .MEDSUPPLY 2 September 18, 2021 12:00am wear daily for venous insufficiency 20-30 mmHg doxycycline monohydrate 50 mg oral capsule (3 sources) Tetracycline-class Drug Start: 09-14-2024 take 1 capsule by mouth once daily doxycycline monohydrate (MONODOX) 50 mg capsule Take 50 mg by mouth once daily. 09/14/2024 Active Start: 06-14-2024 End: 06-21-2024 take 1 tablet by mouth twice daily doxycycline monohydrate 100 mg tablet Indications: Skin infection Take 1 tablet by mouth two times a day for 7 days. 14 tablet 0 06/14/2024 06/21/2024 Active folic acid 0.8 mg oral tablet (6 sources) Start: 03-24-2025 take 0.8 mg by mouth once daily Folic Acid 800 mcg tablet Active 0.8 mg PO daily March 24, 2025 12:00am Start: 03-13-2025 End: 04-14-2025 take 1 tablet by mouth once daily folic acid (FOLVITE) 1 MG tablet Take 1 (one) tablet (1 mg total) by mouth daily in the afternoon . 30 tablet 03/15/2025 04/14/2025 Active furosemide 40 mg oral tablet (20 sources) Loop Diuretic Start: 03-15-2025 End: 06-13-2025 take 1 tablet by mouth once daily furosemide (LASIX) 40 MG tablet Take 1 (one) tablet (40 mg total) by mouth daily . 30 tablet 2 03/15/2025 06/13/2025 Active Start: 12-16-2024 take 1 tablet by olu th twice daily Furosemide 40 mg tablet Active 40 mg PO TWICE DAILY 60 December 16, 2024 11:04am Start: 07-18-2023 End: 03-15-2025 take 1 tablet by mouth twice daily Furosemide 20 mg tablet Discontinued 20 mg PO TWICE DAILY December 13, 2024 11:55am December 16, 2024 11:06am gabapentin 600 mg oral tablet (20 sources) Anti-epileptic Agent Start: 03-13-2025 End: 03-15-2025 take 10 mL by mouth every twelve hours 600 mg, Oral, Every 12 hours scheduled, First dose on Thu03/13/25 at 2100, Capsule may be opened and contents placed down tube, flush tube with 10ml saline Start: 07-02-2021 End: 01-08-2022 take 1 tablet by mouth twice daily Gabapentin Discontinued 300 MG PO TWICE A DAY August 21, 2021 5:54pm January 08, 2022 7:20pm TAKE 1 TABLET BY MOUTH TWICE A DAY Start: 08-10-2019 End: 03-16-2025 take 1 tablet by mouth every twelve hours as needed gabapentin (NEURONTIN) 600 mg tablet Take 1 tablet by mouth two times a day as needed (pain). 05/28/2023 Active Start: 08-10-2019 End: 05-28-2023 take 1 tablet by mouth every twelve hours gabapentin (NEURONTIN) 600 mg tablet Take 1 tablet by mouth every 12 hours 6am/6pm. 05/28/2023 Active Start: 01-14-2019 End: 07-08-2019 take 1 capsule by mouth twice daily at mealtime Gabapentin 100 MG capsule Discontinued 100 mg PO TWICE DAILY WITH MEALS June 10, 2019 1:29pm June 23, 2019 10:18am Start: 06-22-2018 End: 08-10-2019 take 1 capsule by mouth three times daily Gabapentin 300 mg capsule Discontinued 300 mg PO THREE TIMES A DAY 90 July 08, 2019 9:43am August 10, 2019 3:41pm Start: 06-02-2018 End: 06-22-2018 take 1 capsule by mouth twice daily Gabapentin 100 mg capsule Discontinued 100 mg PO TWICE A DAY 60 June 02, 2018 12:00am June 22, 2018 3:51pm Comment on above: Take 1 tablet by olu th every 12 hours 6am/6pm. lactulose 667 mg/ml oral solution (20 sources) Osmotic Laxative Start: 03-13-2025 End: 06-13-2025 take 15 mL by mouth three times daily lactulose (CHRONULAC) 10 gram/15 mL solution Take 15 mL (10 g total) by mouth 3 (three) times a day . 1350 mL 2 03/15/2025 06/13/2025 Active Start: 06-21-2023 End: 03-24-2025 take 10 g by mouth twice daily Lactulose 10 gram/15 mL (15 mL) solution Discontinued 10 g PO TWICE A DAY 2700 90 June 24, 2024 10:44am March 24, 2025 10:49am Start: 03-04-2021 End: 04-15-2022 take 1 mL by mouth once daily Lactulose 10 gram/15 mL (15 mL) solution Discontinued 15 mL PO DAILY 450 March 04, 2021 12:00am April 15, 2022 2:15pm Start: 03-04-2021 End: 04-15-2022 take 1 mL by mouth once daily Lactulose Discontinued 1 5 ML PO DAILY 450 March 04, 2021 12:00am April 15, 2022 2:15pm Start: 03-04-2021 End: 04-15-2022 take 10 g by mouth t hree times daily lactulose 10 gram/15 mL solution Take 10 g by mouth three times a day. Active End: 03-15-2025 take 1 dose by mouth three times daily lactulose (CEPHULAC) 20 gram packet Take 1 (one) packet (20 g total) by mouth 3 (three) times a day . 03/15/2025 Discontinued (Stop Taking at Discharge) levETIRAcetam 1000 mg oral tablet (20 sources) Start: 03-13-2025 End: 03-15-2025 take 750 mg by mouth twice daily 750 mg, Oral, 2 times daily, First dose on Thu03/13/25 at 2100 Start: 04-21-2019 End: 03-16-2025 take 1 tablet by mouth twice daily levETIRAcetam (KEPPRA) 1,000 mg tablet Take 1,000 mg by mouth two times a day. 05/01/2023 Active Start: 07-09-2017 End: 04-21-2019 take 1 tablet by mouth twice daily Levetiracetam 750 mg tablet Discontinued 750 mg PO TWICE A DAY 180 January 14, 2019 4:53pm April 21, 2019 4:46pm Comment on above: TAKE 1 TABLET orally twice a day] levothyroxine sodium 0.05 mg oral tablet (20 sources) l-Thyroxine Start: 05-03-2025 End: 06-02-2025 levothyroxine (SYNTHROID) 50 mcg tablet [The details of the medication are not available because there are pending changes by a home health clinician.] 30 tablet 05/03/2025 06/02/2025 Active Start: 03-14-2025 End: 03-15-2025 take 30 mL by mouth once daily 50 mcg, Oral, Daily, First dose on Thu03/14/25 at 0600, Avoid administration with soybean flour, cottonseed meal, walnuts, and dietary fiber. Administer at least 1 hour before breakfast. Hold continuous tube feeds for at least 1 hour before until 1 hour after each dose. Flush tube with 30mL of water before and after administration. Tube feed rate may need adjusted to meet caloric needs. Start: 07-31-2023 End: 03-16-2025 take 1 tablet by mouth once daily Levothyroxine 50 mcg tablet Discontinued 50 ug PO DAILY December 08, 2024 2:50pm March 16, 2025 1:44pm Start: 03-04-2021 End: 07-31-2023 take 1 tablet by mouth once daily Levothyroxine 25 mcg tablet Discontinued 25 ug PO DAILY March 25, 2023 5:32pm July 31, 2023 12:42pm Comment on above: Take 1 tablet by olu th every afternoon. lidocaine 0.05 mg/mg medicated patch (20 sources) Antiarrhythmic, Amide Local Anesthetic Start: 07-10-2022 Lidocaine 5 % adhesive patch,medicated Active 1 NMA TOPICAL DAILY as needed for rib pain July 10, 2022 10:23am leave on most painful area for 12 hrs Start: 06-14-2021 End: 04-15-2022 Lidocaine 5 % adhesive patch,medicated Discontinued 1 NMA TOPICAL DAILY as needed for rib pain June 14, 2021 1:58pm April 15, 2022 2:16pm leave on most painful area for 12 hrs Start: 12-13-2019 End: 06-14-2021 Lidocaine 5 % adhesive patch,medicated Discontinued 1 NMA TOPICAL DAILY as needed for rib pain December 13, 2019 5:35pm June 14, 2021 1:59pm leave on most painful area for 12 hrs Start: 06-24-2019 End: 12-13-2019 Lidocaine 5 % adhesive patch,medicated Discontinued 1 NMA TOPICAL DAILY as needed for rib pain June 24, 2019 12:00am December 13, 2019 5:36pm leave on most painful area for 12 hrs Start: 06-24-2019 End: 04-15-2022 apply 1 dose topically once daily Lidocaine Discontinued 1 PATCH TOPICAL DAILY June 14, 2021 1:58pm April 15, 2022 2:16pm leave on most painful area for 12 hrs metroNIDAZOLE 0.0075 mg/mg topical gel (20 sources) Nitroimidazole Antimicrobial Start: 07-15-2024 metroNIDAZOLE (METROGEL) 0.75 % Topical Gel Apply 0.75 % to affected area once daily. 07/15/2024 Active Start: 12-17-2022 End: 06-24-2024 Metronidazole 0.75 % gel Dis continued 1 NMA TOPICAL TWICE A DAY 45 December 17, 2022 1:00am June 24, 2024 10:13am Start: 12-17-2022 Start: 12-11-2022 End: 06-24-2024 Metronidazole (Metrogel) 1 % gel Discontinued 1 NMA TOPICAL AT BEDTIME 60 December 11, 2022 1:00am June 24, 2024 10:13am Start: 12-11-2022 Metronidazole (Metrogel) 1 % gel Active 1 APPLIC TOPICAL AT BEDTIME 60 December 11, 2022 1:00am Start: 12-11-2022 midodrine hydrochloride 10 mg oral tablet (8 sources) alpha-Adrenergic Agonist Start: 05-02-2025 take 1 tablet by mouth every eight hours midodrine (PROAMATINE) 10 mg tablet Take 1 tablet by mouth every 8 hours. 90 tablet 05/02/2025 Active oxyCODONE hydrochloride 5 mg oral tablet (10 sources) Opioid Agonist Start: 05-02-2025 End: 05-05-2025 take 1 tablet by mouth every six hours as needed oxyCODONE IR (ROXICODONE) 5 mg immediate release tablet Indications: Closed fracture of multiple ribs of both sides, initial encounter Take 1-2 tablets by mouth every 6 hours as needed for pain for up to 3 days. 12 tablet 05/02/2025 05/05/2025 Active Start: 11-24-2024 End: 12-16-2024 take 1 tablet by mouth every six hours as needed for pain Oxycodone 5 mg tablet Discontinued 5 mg PO EVERY 6 HOURS as needed for pain 12 3 November 24, 2024 December 16, 2024 10:04am rifAXIMin 550 mg oral tablet (15 sources) Rifamycin Antibacterial Start: 03-24-2025 take 1 tablet by mouth twice daily Rifaximin 550 mg tablet Active 550 mg PO TWICE A DAY March 24, 2025 12:00am Start: 03-14-2025 End: 03-15-2025 take 1 tablet by mouth twice daily rifAXIMin (XIFAXAN) 550 mg tablet Take 1 (one) tablet (550 mg total) by mouth 2 (two) times a day . 60 tablet 2 03/15/2025 11:24 AM EDT 03/14/2025 Active spironolactone 100 mg oral tablet (20 sources) Aldosterone Antagonist Start: 03-15-2025 End: 06-13-2025 take 1 tablet by mouth once daily Spironolactone 100 mg tablet Active 100 mg PO daily March 24, 2025 12:00am Start: 03-15-2025 End: 03-15-2025 take 100 mg by mouth once daily 100 mg, Oral, Daily, First dose on Thu03/15/25 at 0945, CATEGORY C HAZARDOUS DRUG use safe handling precautions. Use reference link to view PPE guidelines. Minimize crushing/splitting only to situations where clinically necessary. Start: 05-09-2024 take 1 tablet by olu once daily spironolactone (ALDACTONE) 25 mg tablet Take 25 mg by mouth once daily. 05/09/2024 Active Start: 07-18-2023 End: 03-24-2025 take 1 tablet by mouth twice daily Spironolactone 25 mg tablet Discontinued 25 mg PO TWICE A DAY 180 January 11, 2025 5:44pm March 24, 2025 10:51am thiamine 100 mg oral tablet (20 sources) Start: 03-15-2025 End: 04-14-2025 take 1 tablet by mouth once daily thiamine 100 MG tablet Take 1 (one) tablet (100 mg total) by mouth daily . 30 tablet 03/15/2025 04/14/2025 Active Start: 03-13-2025 End: 03-15-2025 take 200 mg by mouth once daily 200 mg, Oral, Daily (i n the afternoon), First dose on Thu03/13/25 at 1800, For 5 doses Start: 08-21-2020 End: 04-15-2022 take 1 tablet by mouth once daily Thiamine Hcl (Vitamin B1) 250 mg tablet Discontinued 250 mg PO DAILY June 14, 2021 1:59pm April 15, 2022 2:17pm Start: 06-22-2018 End: 01-14-2019 take 1 tablet by mouth once daily Thiamine Hcl (Vitamin B1) 100 mg tablet Discontinued 100 mg PO daily June 22, 2018 12:00am January 14, 2019 4:57pm Completed/Discontinued Medications Medication Drug Class(es) Dates Sig (Normalized) Sig (Original) acetaminophen 325 mg oral tablet (20 sources) Start: 03-13-2025 End: 03-15-2025 take 1 tablet by mouth every eight hours as needed for pain and headache Start: 12-15-2017 End: 01-08-2022 take 1 capsule by mouth every six hours as needed for pain Acetaminophen 500 mg capsule Discontinued 500 mg PO EVERY 6 HOURS as needed for Pain 120 June 23, 2019 10:15am January 08, 2022 6:34pm Start: 04-21-2013 End: 09-20-2024 take 325-650 mg by mouth every four hours as needed acetaminophen 325 mg tablet Take 1-2 tablets by mouth every 4 hours as needed for Pain. 0 04/21/2013 09/20/2024 Discontinued (Other) Comment on above: Take 1-2 tablets by mouth every 4 hours as needed for Pain. acetaminophen 325 mg / HYDROcodone bitartrate 5 mg oral tablet (12 sources) Opioid Agonist Start: 06-09-2019 End: 06-19-2019 Hydrocodone-Acetaminophe n 1 TABLET tablet Discontinued 1 {tbl} PO EVERY 6 HOURS NEEDED as needed for Pain 12 June 09, 2019 June 11, 2019 12:00am June 19, 2019 12:08am Start: 06-09-2019 End: 06-19-2019 take 1 tablet by mouth every six hours as needed Hydrocodone-Acetaminophen Discontinued 1 TABLET PO EVERY 6 HOURS NEEDED 12 June 09, 2019 June 19, 2019 12:08am Start: 06-09-2019 End: 06-19-2019 20 ml albumin human, half-way 250 mg/ml injection (3 sources) Human Serum Albumin Start: 03-14-2025 End: 03-15-2025 take 25 g intravenously every six hours 25 g, Intravenous, Administer over 60 Minutes, Every 6 hours, First dose (after last modification) on Thu03/14/25 at 1800, For 3 doses, Infuse with vented tubing if product is in a glass vial. In [facility] drug library, no longer in fluid library. Start: 03-14-2025 End: 03-14-2025 25 g, Intravenous, Administe r over 60 Minutes, Once, On Thu03/14/25 at 1330, For 1 dose, Infuse with vented tubing if product is in a glass vial. In [facility] drug library, no longer in fluid library. [id number] 200 actuat albuterol 0.09 mg/actuat metered dose inhaler (2 sources) beta2-Adrenergic Agonist End: 03-13-2025 take 2 puff(s) by inhalation every six hours as needed for wheezing albuterol 90 mcg/actuation inhaler Inhale 2 (two) puffs every 6 (six) hours as needed for wheezing (90mcg) . 03/13/2025 Discontinued take 2 puff(s) by in halation every six hours as needed for wheezing albuterol 90 mcg/actuation inhaler Inhal e 2 puffs every 6 (six) hours as needed for wheezing (90mcg). 0 Active amoxicillin 875 mg / clavulanate 125 mg oral tablet (12 sources) Penicillin-class Antibacterial Start: 12-16-2019 End: 12-26-2019 Amoxicillin-Pot Clavulanate (Augmentin) 875-125 mg tablet Discontinued 1 {tbl} PO Q12H 11 09December 16, 2019 1:00am December 25, 2019 1:00am December 26, 2019 1:08am Start: 12-16-2019 End: 12-26-2019 benzonatate 200 mg oral capsule (2 sources) Non-narcotic Antitussive End: 03-13-2025 take 1 capsule by mouth three times daily as needed for cough benzonatate (TESSALON) 200 MG capsule Take 1 (one) capsule (200 mg total) by mouth 3 (three) times a day as needed for cough . 03/13/2025 Discontinued bimatoprost 0.1 mg/ml ophthalmic solution (6 sources) Prostaglandin Analog End: 03-13-2025 take 1 drop(s) into the eye(s) once daily bimatoprost (LUMIGAN) 0.01 % ophthalmic drops Administer 1 (one) drop to both eyes nightly . 03/13/2025 Discontinued End: 09-20-2024 Bimatoprost (LUMIGAN) 0.01 % Drop 1 Drop. 09/20/2024 Discontinued (Other) Comment on above: 1 Drop. brimonidine tartrate 2 mg/ml ophthalmic solution (2 sources) alpha-Adrenergic Agonist End: 03-13-2025 take 1 drop(s) into the eye(s) twice daily brimonidine (ALPHAGAN) 0.2 % ophthalmic solution Administer 1 (one) drop to both eyes 2 (two) times a day . 03/13/2025 Discontinued brimonidine tartrate 2 mg/ml / timolol 5 mg/ml ophthalmic solution (4 sources) alpha-Adrenergic Agonist, beta-Adrenergic Danilo End: 09-20-2024 Brimonidine-Timolol (COMBIGAN) 0.2-0.5 % Drop Use in both eyes. 09/20/2024 Discontinued (Other) Brimonidine-Manish lol (COMBIGAN) 0.2-0.5 % Drop Use in both eyes. 0 Active Comment on above: Use in both eyes. brinzolamide 10 mg/ml ophthalmic suspension (6 sources) Carbonic Anhydrase Inhibitor End: take 1 drop(s) into the eye(s) three times daily brinzolamide (AZOPT) 1 % ophthalmic suspension 1 (one) drop 3 (three) times a day . 03/13/2025 Discontinued Comment on above: 1 Drop three times d aily. carvedilol 25 mg oral tablet (20 sources) alpha-Adrenergic Danilo, beta-Adrenergic Danilo Start: 017 End: take 1 tablet by mouth twice daily Carvedilol 25 mg tablet Discontinued 25 mg PO TWICE A DAY 180 April 24, 2022 11:03am June 18, 2023 2:25pm ceFAZolin 2000 mg injection (1 source) Cephalosporin Antibacterial Start: End: 025 take 2000 mg intravenously every eight hours 2,000 mg, Intravenous, at 200 mL/hr, Every 8 hours, First dose on Thu03/13/25 at 1800, Indication: Community Acquired Cellulitis coal tar 5 mg/ml medicated shampoo (12 sources) Start: 018 End: 019 Kimble Tar (Claudio-Gel Tar Shampoo) 0.5 % shampoo Discontinued 1 NMA TOPICAL daily December 15, 2017 1:00am January 14, 2019 4:57pm Crutch (9 sources) Start: 022 End: Crutch Discontinued 0 .ROUTE .MEDSUPPLY 2 November 24, 2021 5:30pm April 15, 2022 2:14pm As directed Start: 11-24-2021 End: 04-15-2022 Crutch Discontinued 0 .ROUTE .MEDSUPPLY 2 November 24, 2021 12:00am April 15, 2022 1:14pm As directed Start: 11-24-2021 End: 04-15-2022 Crutch Discontinued 0 .ROUTE .MEDSUPPLY 2 November 24, 2021 1:00am April 15, 2022 2:14pm As directed Crutch misc (2 sources) Start: 11-24-2021 End: 04-15-2022 Crutch misc Discontinued 0 .ROUTE .MEDSUPPLY 2 November 24, 2021 1:00am April 15, 2022 2:14pm As directed doxylamine succinate 25 mg oral tablet (14 sources)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 defines fasting as no caloric intake for at least 8 hours. Fasting plasma glucose results between 100 to 125 mg/dL indicate increased risk for diabetes (prediabetes).Fasting plasma glucose results greater than or equal to 126 mg/dL meet the criteria for diagnosis of diabetes. In the absence of unequivocal hyperglycemia, results should be confirmed by repeat testing. In a patient with classic symptoms of hyperglycemia or hyperglycemic crisis, random plasma glucose results greater than or equal to 200 mg/dL meet the criteria for diagnosis of diabetes.Reference: Standards of Medical Care in Diabetes 2016, [place] Diabetes Association. Diabetes Care. 2016.39(Suppl 1). Performed By: #### 2 4321-2 ####[facility] LABORATORYCLIA [id number] [place] [address] [place] Potassium [Moles/Vol] 4.6 mmol/L Normal 3.7-5.1 [facility] Comment on above: Order Comment: Speci men Type: BLOOD SPECIMENOrdering Facility: [facility] Address: [address] [place] [address] Performed By: #### 2 4321-2 ####[facility] LABORATORYCLIA [id number] [place] [id number] [place] Sodium [Moles/Vol] 125 mmol/L Low 136-144 [facility] Comment on above: Order Comment: Speci men Type: BLOOD SPECIMENOrdering Facility: [facility] Address: [address] [place] [address] Performed By: #### 2 4321-2 ####[facility] LABORATORYCLIA [id number] [place] [address] [place] Urea nitrogen [Mass/Vol] 49 mg/dL High 9-24 [facility] Comment on above: Order Comment: Speci men Type: BLOOD SPECIMENOrdering Facility: [facility] Address: [address] [place] [address] Performed By: #### 2 4321-2 ####[facility] LABORATORYCLIA [id number] [address] STATES OF [facility] CBC panel Auto (Bld)on 04-29 Erythrocyte distribution width (RBC) [Ratio] 18.1 % High 11.5-15.0 [facility] Comment on above: Order Comment: Speci men Type: BLOOD SPECIMENOrdering Facility: [facility] Address: [address] [place] [address] Performed By: #### 5 8410-2 ####[facility] LABORATORYCLIA [id number] [address] STATES OF [facility] Hematocrit (Bld) [Volume fraction] 24.3 % Low 39.0-51.0 [facility] Comment on above: Order Comment: Speci men Type: BLOOD SPECIMENOrdering Facility: [facility] Address: [address] [place] [address] Performed By: #### 5 8410-2 ####[facility] LABORATORYCLIA [id number] [address] [place] Hemoglobin (Bld) [Mass/Vol] 8.0 g/dL Low 13.0-17.0 [facility] Comment on above: Order Comment: Speci men Type: BLOOD SPECIMENOrdering Facility: [facility] Address: [address] [place] [address] Performed By: #### 5 8410-2 ####[facility] LABORATORYCLIA [id number] [address] [facility] MCH (RBC) [Entitic mass] 35.1 pg High 26.0-34.0 [facility] Comment on above: Order Comment: Speci men Type: BLOOD SPECIMENOrdering Facility: [facility] Address: [address] [place] [address] Performed By: #### 5 8410-2 ####[facility] LABORATORYCLIA [id number] [address] MCHC (RBC) [Mass/Vol] 32.9 g/dL Normal 30.5-36.0 [facility] Comment on above: Order Comment: Speci men Type: BLOOD SPECIMENOrdering Facility: [facility] Address: [address] [place] [address] Performed By: #### 5 8410-2 ####[facility] LABORATORYCLIA [id number] [address] OF [place] MCV (RBC) [Entitic vol] 106.6 fL High 80.0-100.0 [facility] Comment on above: Order Comment: Speci men Type: BLOOD SPECIMENOrdering Facility: [facility] Address: [address] [place] [address] Performed By: #### 5 8410-2 ####[facility] LABORATORYCLIA [id number] [address] OF [facility] Nucleated RBC (Bld) [#/Vol] 10*3/uL Normal <0.01 [facility] Comment on above: Order Comment: Speci men Type: BLOOD SPECIMENOrdering Facility: [facility] Address: [address] [place] [address] Performed By: #### 5 8410-2 ####[facility] LABORATORYCLIA [id number] [address] Platelet mean volume (Bld) [Entitic vol] 10.2 fL Normal 9.0-12.7 [facility] Comment on above: Order Comment: Speci men Type: BLOOD SPECIMENOrdering Facility: [facility] Address: [address] [place] [address] Performed By: #### 5 8410-2 ####[facility] LABORATORYCLIA [id number] [address] OF [place] Platelets (Bld) [#/Vol] 79 10*3/uL Low 150-400 [facility] Comment on above: Order Comment: Speci men Type: BLOOD SPECIMENOrdering Facility: [facility] Address: [address] [place] [address] Result Comment: No c lot detected. Performed By: #### 5 8410-2 ####[facility]ORATORYCLIA [id number] [address] STATES OF [facility] RBC (Bld) [#/Vol] 2.28 10*6/uL Low 4.20-6.00 [facility] Comment on above: Order Comment: Speci men Type: BLOOD SPECIMENOrdering Facility: [facility] Address: [address] [place] [address] Performed By: #### 5 8410-2 ####[facility] LABORATORYCLIA [id number] [address] WBC (Bld) [#/Vol] 4.79 10*3/uL Normal 3.70-11.00 [facility] Comment on above: Order Comment: Speci men Type: BLOOD SPECIMENOrdering Facility: [facility] Address: [address] [place] [address] Performed By: #### 5 8410-2 ####[facility] LABORATORYCLIA [id number] [address] THERAPY NTon 04-29-2025 THERAPY NT Normal [facility] XR CHEST 1V FRONTALon 2024 XR CHEST 1V FRONTAL Normal [facility] ALLIED HEALTHon 04-28-2025 ALLIED HEALTH Normal [facility] Bacteria Spec Resp Culton Bacteria identified Respiratory culture Nom (Unsp spec) CULTURE, RESPIRATORY: Few Normal respiratory xenia present GRAM STAIN: Rare Yeast Moderate Polymorphonuclear leukocytes Rare Epithelial cells Abnormal [facility] Comment on above: Performed By: #### 3 2355-0 ####[facility] LABORATORYCLIA [id number] [address] STATES OF [facility] Basic metabolic 2000 panelon 04-28-2025 Anion gap [Moles/Vol] 6 mmol/L Low 8-15 [facility] Comment on above: Order Comment: Speci men Type: BLOOD SPECIMENOrdering Facility: [facility] Address: [address] [place] [address] Performed By: #### 2 4321-2 ####[facility] LABORATORYCLIA [id number] [place] [address] [place] Calcium [Mass/Vol] 8.5 mg/dL Normal 8.5-10.2 [facility] Comment on above: Order Comment: Speci men Type: BLOOD SPECIMENOrdering Facility: [facility] Address: [address] [place] [address] Performed By: #### 2 4321-2 ####[facility] LABORATORYCLIA [id number] [place] [address] [place] Chloride [Moles/Vol] 95 mmol/L Low 98-107 [facility] Comment on above: Order Comment: Speci men Type: BLOOD SPECIMENOrdering Facility: [facility] Address: [address] [place] [address] Performed By: #### 2 4321-2 ####[facility] LABORATORYCLIA [id number] [place] [address] [place] CO2 [Moles/Vol] 23 mmol/L Normal 22-30 [facility] Comment on above: Order Comment: Speci men Type: BLOOD SPECIMENOrdering Facility: [facility] Address: [address] [place] [address] Performed By: #### 2 4321-2 ####[facility] LABORATORYCLIA [id number] [address] [place] Creatinine [Mass/Vol] 1.33 mg/dL High 0.73-1.22 [facility] Comment on above: Order Comment: Speci men Type: BLOOD SPECIMENOrdering Facility: [facility] Address: [address] [place] [address] Performed By: #### 2 4321-2 ####[facility] LABORATORYCLIA [id number] [address] [place] Creatinine and Glomerular filtration rate.predicted panel (S/P/Bld) 64 mL/min/1.73m??? Normal >=60 [facility] Comment on above: Order Comment: Sahil harper Type: BLOOD SPECIMENOrdering Facility: [facility] Address: [address] [place] [address] Result Comment: Autumn mated Glomerular Filtration Rate (eGFR) is calculated using the 2020 CKD-EPI creatinine equation. This equation utilizes serum creatinine, sex, and age as parameters. The creatinine assay has traceable calibration to isotope dilution-mass spectrometry. Refer to KDIGO guidelines for clinical interpretation. In patients with unstable renal function, e.g. those with acute kidney injury, the eGFR may not accurately reflect actual GFR. Performed By: #### 2 4321-2 ####[facility] LABORATORYCLIA [id number] [place] [address] [place] Glucose [Mass/Vol] 126 mg/dL High 74-99 [facility] Comment on above: Order Comment: Sahil harper Type: BLOOD SPECIMENOrdering Facility: [facility] Address: [address] [place] [address] Result Comment: The [place] Diabetes Association (ADA) provides guidance for cutoff values for fasting glucose and random glucose. The ADA defines fasting as no caloric intake for at least 8 hours. Fasting plasma glucose results between 100 to 125 mg/dL indicate increased risk for diabetes (prediabetes).Fasting plasma glucose results greater than or equal to 126 mg/dL meet the criteria for diagnosis of diabetes. In the absence of unequivocal hyperglycemia, results should be confirmed by repeat testing. In a patient with classic symptoms of hyperglycemia or hyperglycemic crisis, random plasma glucose results greater than or equal to 200 mg/dL meet the criteria for diagnosis of diabetes.Reference: Standards of Medical Care in Diabetes 2016, [place] Diabetes Association. Diabetes Care. 2016.39(Suppl 1). Performed By: #### 2 4321-2 ####[facility] LABORATORYCLIA [id number] [place] [address] [place] Potassium [Moles/Vol] 4.7 mmol/L Normal 3.7-5.1 [facility] Comment on above: Order Comment: Sahil harper Type: BLOOD SPECIMENOrdering Facility: [facility] Address: [address] [place], [place] [address] Performed By: #### 2 4321-2 ####[facility] LABORATORYCLIA [id number] [address] [facility] Sodium [Moles/Vol] 124 mmol/L Low 136-144 [facility] Comment on above: Order Comment: Speci men Type: BLOOD SPECIMENOrdering Facility: [facility] Address: [address] [place] [address] Performed By: #### 2 4321-2 ####[facility] LABORATORYCLIA [id number] [address] [place] Urea nitrogen [Mass/Vol] 57 mg/dL High 9-24 [facility] Comment on above: Order Comment: Speci men Type: BLOOD SPECIMENOrdering Facility: [facility] Address: [address] [place] [address] Performed By: #### 2 4321-2 ####[facility] LABORATORYCLIA [id number] [address] STATES OF [facility] CASE MANAGEMon 04-28-2025 CASE MANAGEM Normal [facility] CBC panel Auto (Bld)on 04-28 Erythrocyte distribution width (RBC) [Ratio] 18.3 % High 11.5-15.0 [facility] Comment on above: Order Comment: Speci men Type: BLOOD SPECIMENOrdering Facility: [facility] Address: [address] [place] [address] Performed By: #### 5 8410-2 ####[facility] LABORATORYCLIA [id number] [address] [place] Hematocrit (Bld) [Volume fraction] 24.7 % Low 39.0-51.0 [facility] Comment on above: Order Comment: Speci men Type: BLOOD SPECIMENOrdering Facility: [facility] Address: [address] [place] [address] Performed By: #### 5 8410-2 ####[facility] LABORATORYCLIA [id number] [address] [place] Hemoglobin (Bld) [Mass/Vol] 7.9 g/dL Low 13.0-17.0 [facility] Comment on above: Order Comment: Speci men Type: BLOOD SPECIMENOrdering Facility: [facility] Address: [address] [place] [address] Performed By: #### 5 8410-2 ####[facility] LABORATORYCLIA [id number] [address] MCH (RBC) [Entitic mass] 34.2 pg High 26.0-34.0 [facility] Comment on above: Order Comment: Speci men Type: BLOOD SPECIMENOrdering Facility: [facility] Address: [address] [place] [address] Performed By: #### 5 8410-2 ####[facility] LABORATORYCLIA [id number] [address] [place] MCHC (RBC) [Mass/Vol] 32.0 g/dL Normal 30.5-36.0 [facility] Comment on above: Order Comment: Speci men Type: BLOOD SPECIMENOrdering Facility: [facility] Address: [address] [place] [address] Performed By: #### 5 8410-2 ####[facility] LABORATORYCLIA [id number] [address] MCV (RBC) [Entitic vol] 106.9 fL High 80.0-100.0 [facility] Comment on above: Order Comment: Speci men Type: BLOOD SPECIMENOrdering Facility: [facility] Address: [address] [place] [address] Performed By: #### 5 8410-2 ####[facility] LABORATORYCLIA [id number] [address] Nucleated RBC (Bld) [#/Vol] 10*3/uL Normal <0.01 [facility] Comment on above: Order Comment: Speci men Type: BLOOD SPECIMENOrdering Facility: [facility] Address: [address] [place] [address] Performed By: #### 5 8410-2 ####[facility] LABORATORYCLIA [id number] [address] [place] Platelet mean volume (Bld) [Entitic vol] 9.8 fL Normal 9.0-12.7 [facility] Comment on above: Order Comment: Speci men Type: BLOOD SPECIMENOrdering Facility: [facility] Address: [address] [place] [address] Performed By: #### 5 8410-2 ####[facility] LABORATORYCLIA [id number] [place] [address] [place] Platelets (Bld) [#/Vol] 76 10*3/uL Low 150-400 [facility] Comment on above: Order Comment: Speci men Type: BLOOD SPECIMENOrdering Facility: [facility] Address: [address] [place] [address] Performed By: #### 5 8410-2 ####[facility] LABORATORYCLIA [id number] [place] [address] [place] RBC (Bld) [#/Vol] 2.31 10*6/uL Low 4.20-6.00 [facility] Comment on above: Order Comment: Speci men Type: BLOOD SPECIMENOrdering Facility: [facility] Address: [address] [place] [address] Performed By: #### 5 8410-2 ####[facility] LABORATORYCLIA [id number] [place] [address] [place] WBC (Bld) [#/Vol] 4.71 10*3/uL Normal 3.70-11.00 [facility] Comment on above: Order Comment: Speci men Type: BLOOD SPECIMENOrdering Facility: [facility] Address: [address] [place] [address] Performed By: #### 5 8410-2 ####[facility] LABORATORYCLIA [id number] [address] [place] CT ABD/PEL W IVCONon 025 CT ABD/PEL W IVCON Normal [facility] PT panel Coag (PPP)on 2024 INR Coag (PPP) [Relative time] 1.6 {INR} High 0.9-1.3 [facility] Comment on above: Order Comment: Sahil harper Type: BLOOD SPECIMENOrdering Facility: [facility] Address: [address] [place], [place] [id number] Result Comment: Erum min K Antagonist (VKA) Therapeutic Range: INR 2 to 3 (Target INR of 2.5)Note: For patients treated with VKA drugs, such as warfarin, the [place] [employer] 2012 Guideline recommends a therapeutic INR range of 2 to 3 (target INR of 2.5). This recommendation includes high-risk patients with antiphospholipid syndrome with previous arterial or venous thromboembolism, current-generation mechanical or bioprosthetic aortic heart valve replacement.Note: Patients with mechanical aortic valve replacement and additional risk factors for thromboembolic events (atrial fibrillation, previous thromboembolism, LV dysfunction, hypercoagulable conditions) or an older generation mechanical AVR (i.e., ball in-Cage) or any mechanical MVR should have a INR therapeutic range of 2.5 to 3.5 (target INR of 3).Alpa GH, et al. Chest 2012, 141:7S-47SNishimalan RA, et al. JAC 2017, 70: 252-289 Performed By: #### 3 4528-0 ####[facility] LABORATORYCLIA [id number] [place] [address] [place] PT Coag (PPP) [Time] 17.2 s High 9.7-13.0 [facility] Comment on above: Order Comment: Sahil harper Type: BLOOD SPECIMENOrdering Facility: [facility] Address: [address] [id number] Performed By: #### 3 4528-0 ####[facility] LABORATORYCLIA [id number] [place] [address] [place] XR CHEST 1V FRONTALon 2024 XR CHEST 1V FRONTAL Normal [facility] XR CHEST 1V FRONTAL Normal [facility] ALLIED HEALTHon 04-27-2025 ALLIED HEALTH Normal [facility] Bacteria Spec Resp Culton Bacteria identified Respiratory culture Nom (Unsp spec) Normal [facility] Comment on above: Performed By: #### 3 2355-0 ####[facility] LABORATORYCLIA [id number] [place] [address] [place] Basic metabolic 2000 panelon 04-27-2025 Anion gap [Moles/Vol] 8 mmol/L Normal 8-15 [facility] Comment on above: Order Comment: Speci men Type: BLOOD SPECIMENOrdering Facility: [facility] Address: [address] [place] [address] Performed By: #### 2 4321-2 ####[facility] LABORATORYCLIA [id number] [address] [place] Calcium [Mass/Vol] 8.7 mg/dL Normal 8.5-10.2 [facility] Comment on above: Order Comment: Speci men Type: BLOOD SPECIMENOrdering Facility: [facility] Address: [address] [place] [address] Performed By: #### 2 4321-2 ####[facility] LABORATORYCLIA [id number] [address] [place] Chloride [Moles/Vol] 94 mmol/L Low 98-107 [facility] Comment on above: Order Comment: Speci men Type: BLOOD SPECIMENOrdering Facility: [facility] Address: [address] [place] [address] Performed By: #### 2 4321-2 ####[facility] LABORATORYCLIA [id number] [place] [address] [place] CO2 [Moles/Vol] 25 mmol/L Normal 22-30 [facility] Comment on above: Order Comment: Speci men Type: BLOOD SPECIMENOrdering Facility: [facility] Address: [address] [place] [address] Performed By: #### 2 4321-2 ####[facility]ORATORYCLIA [id number] [place] [address] [place] Creatinine [Mass/Vol] 1.17 mg/dL Normal 0.73-1.22 [facility] Comment on above: Order Comment: Virgiliosabino harper Type: BLOOD SPECIMENOrdering Facility: [facility] Address: [address] [place] [address] Performed By: #### 2 4321-2 ####[facility] LABORATORYCLIA [id number] [place] [address] [place] Creatinine and Glomerular filtration rate.predicted panel (S/P/Bld) 74 mL/min/1.73m??? Normal >=60 [facility] Comment on above: Order Comment: Sahil leroy Type: BLOOD SPECIMENOrdering Facility: [facility] Address: [address] [place] [address] Result Comment: Autumn mated Glomerular Filtration Rate (eGFR) is calculated using the 2020 CKD-EPI creatinine equation. This equation utilizes serum creatinine, sex, and age as parameters. The creatinine assay has traceable calibration to isotope dilution-mass spectrometry. Refer to KDIGO guidelines for clinical interpretation. In patients with unstable renal function, e.g. those with acute kidney injury, the eGFR may not accurately reflect actual GFR. Performed By: #### 2 4321-2 ####[facility]ORATORYCLIA [id number] [place] [address] [place] Glucose [Mass/Vol] 120 mg/dL High 74-99 [facility] Comment on above: Order Comment: Sahil harper Type: BLOOD SPECIMENOrdering Facility: [facility] Address: [address] [place] [address] Result Comment: The [place] Diabetes Association (ADA) provides guidance for cutoff values for fasting glucose and random glucose. The ADA defines fasting as no caloric intake for at least 8 hours. Fasting plasma glucose results between 100 to 125 mg/dL indicate increased risk for diabetes (prediabetes).Fasting plasma glucose results greater than or equal to 126 mg/dL meet the criteria for diagnosis of diabetes. In the absence of unequivocal hyperglycemia, results should be confirmed by repeat testing. In a patient with classic symptoms of hyperglycemia or hyperglycemic crisis, random plasma glucose results greater than or equal to 200 mg/dL meet the criteria for diagnosis of diabetes.Reference: Standards of Medical Care in Diabetes 2016, [place] Diabetes Association. Diabetes Care. 2016.39(Suppl 1). Performed By: #### 2 4321-2 ####[facility]ATORYCLIA [id number] [place] [address] [place] Potassium [Moles/Vol] 4.9 mmol/L Normal 3.7-5.1 [facility] Comment on above: Order Comment: Speci men Type: BLOOD SPECIMENOrdering Facility: [facility] Address: [address] [place] [address] Performed By: #### 2 4321-2 ####[facility] LABORATORYCLIA [id number] [place] [id number] [place] Sodium [Moles/Vol] 127 mmol/L Low 136-144 [facility] Comment on above: Order Comment: Speci men Type: BLOOD SPECIMENOrdering Facility: [facility] Address: [address] [place] [address] Performed By: #### 2 4321-2 ####[facility] LABORATORYCLIA [id number] [address] [place] Urea nitrogen [Mass/Vol] 58 mg/dL High 9-24 [facility] Comment on above: Order Comment: Speci men Type: BLOOD SPECIMENOrdering Facility: [facility] Address: [address] [place] [address] Performed By: #### 2 4321-2 ####[facility] LABORATORYCLIA [id number] [place] [id number] [place] CASE MANAGEMon 04-27-2025 CASE MANAGEM Normal [facility] CBC panel Auto (Bld)on 04-27 Erythrocyte distribution width (RBC) [Ratio] 18.3 % High 11.5-15.0 [facility] Comment on above: Order Comment: Speci men Type: BLOOD SPECIMENOrdering Facility: [facility] Address: [address] [place] [address] Performed By: #### 5 8410-2 ####[facility] LABORATORYCLIA [id number] [address] [place] Hematocrit (Bld) [Volume fraction] 25.4 % Low 39.0-51.0 [facility] Comment on above: Order Comment: Speci men Type: BLOOD SPECIMENOrdering Facility: [facility] Address: [address] [place] [address] Performed By: #### 5 8410-2 ####[facility]ORATORYCLIA [id number] [address] [place] Hemoglobin (Bld) [Mass/Vol] 8.3 g/dL Low 13.0-17.0 [facility] Comment on above: Order Comment: Speci men Type: BLOOD SPECIMENOrdering Facility: [facility] Address: [address] [place] [address] Performed By: #### 5 8410-2 ####[facility]ORATORYCLIA [id number] [address] [place] MCH (RBC) [Entitic mass] 34.7 pg High 26.0-34.0 [facility] Comment on above: Order Comment: Speci men Type: BLOOD SPECIMENOrdering Facility: [facility] Address: [address] [place] [address] Performed By: #### 5 8410-2 ####[facility] LABORATORYCLIA [id number] [address] [place] MCHC (RBC) [Mass/Vol] 32.7 g/dL Normal 30.5-36.0 [facility] Comment on above: Order Comment: Speci men Type: BLOOD SPECIMENOrdering Facility: [facility] Address: [address] [place] [address] Performed By: #### 5 8410-2 ####[facility] LABORATORYCLIA [id number] [address] [place] MCV (RBC) [Entitic vol] 106.3 fL High 80.0-100.0 [facility] Comment on above: Order Comment: Speci men Type: BLOOD SPECIMENOrdering Facility: [facility] Address: [address] [place] [address] Performed By: #### 5 8410-2 ####[facility]ORATORYCLIA [id number] [place] [address] [place] Nucleated RBC (Bld) [#/Vol] 10*3/uL Normal <0.01 [facility] Comment on above: Order Comment: Speci men Type: BLOOD SPECIMENOrdering Facility: [facility] Address: [address] [place] [address] Performed By: #### 5 8410-2 ####[facility]ORATORYCLIA [id number] [address] [place] Platelet mean volume (Bld) [Entitic vol] 10.5 fL Normal 9.0-12.7 [facility] Comment on above: Order Comment: Speci men Type: BLOOD SPECIMENOrdering Facility: [facility] Address: [address] [place] [address] Performed By: #### 5 8410-2 ####[facility] LABORATORYCLIA [id number] [address] [place] Platelets (Bld) [#/Vol] 80 10*3/uL Low 150-400 [facility] Comment on above: Order Comment: Speci men Type: BLOOD SPECIMENOrdering Facility: [facility] Address: [address] [place] [address] Result Comment: No c lot detected. Performed By: #### 5 8410-2 ####[facility]ORATORYCLIA [id number] [place] [address] [place] RBC (Bld) [#/Vol] 2.39 10*6/uL Low 4.20-6.00 [facility] Comment on above: Order Comment: Speci men Type: BLOOD SPECIMENOrdering Facility: [facility] Address: [address] [place] [address] Performed By: #### 5 8410-2 ####[facility]ORATORYCLIA [id number] [address] [place] WBC (Bld) [#/Vol] 5.20 10*3/uL Normal 3.70-11.00 [facility] Comment on above: Order Comment: Speci men Type: BLOOD SPECIMENOrdering Facility: [facility] Address: [address] [place] [id number] Performed By: #### 5 8410-2 ####[facility] LABORATORYCLIA [id number] [place] [address] [facility] Bennett 04-27-2025 CNPN Telephone (HCSIND) -------- ARYAN VALLE ([id number]) 1970 M Date Time Provider Department 04/27/25 [facility] During your visit today, we recorded the following information about you: Renee Flores HHA 04/27/2025 3:25 PM Signed Date/Time: 04/27/2025 3:19 PM Spoke with Friend Cora @ phone #: [phone] - Preferred # for contact: [phone] Have you received help from a home care company in the last 60 days? No Are you agreeable to [facility] services? Yes What address will we be seeing you at? Address [address] [facility] [address] Do you have any upcoming appointments or things we need to schedule around? No Do you have a teachable CG or can you manage your care independently? Yes Who? Friend/Significant Other Allergies As of Date: 04/27/2025 (No Known Allergies) Date Reviewed: 04/24/2025 Reviewed by: Zuleika Torres, DEONNA - Fully Assessed Reason for Visit: Home Care [4073] Cmt: Confirmation Call Prescriptions as of 04/27/2025 - furosemide (LASIX) 40 mg tablet Take 40 mg by mouth once daily. - spironolactone (ALDACTONE) 100 mg tablet Take 100 mg by mouth once daily. - rifAXIMin (XIFAXAN) 550 mg tablet Take 550 mg by mouth two times a day. - thiamine (VITAMIN B1) 100 mg tablet Take 100 mg by mouth once daily. - levothyroxine (SYNTHROID) 50 mcg tablet Take 50 mcg by mouth daily before breakfast. - lactulose 10 gram/15 mL solution Take 10 g by mouth three times a day. - metroNIDAZOLE (METROGEL) 0.75 % Topical Gel Apply 0.75 % to affected area once daily. - gabapentin (NEURONTIN) 600 mg tablet Take 1 tablet by mouth two times a day as needed (pain). - levETIRAcetam (KEPPRA) 1,000 mg tablet Take 1,000 mg by mouth two times a day. Facility-Administered Medications as of 04/27/2025 - midodrine 10 mg tab(s) (PROAMATINE) - rifAXIMin 550 mg tab(s) (XIFAXAN) - gabapentin 300 mg cap(s) (NEURONTIN) - ondansetron (PF) 4 mg injection (ZOFRAN) - enoxaparin 30 mg injection (LOVENOX) (Mar Hold) - cyclobenzaprine 5 mg tab(s) (FLEXERIL) - thiamine 100 mg tab(s) (VITAMIN B1) - lactulose 10 g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 Approved Guideline. CLSI document C49A. MEGHNA Li: Clinical Laboratory Standards [place]: 2007. Performed By: #### 2 344-0, 2529-6, 1795-02 ####[facility] LABCLIA [id number] [place] [address] [place] LDH Fld-cCncon 04-26-2025 LDH (Body fld) [Catalytic activity/Vol] 112 U/L Normal See Comment [facility] Comment on above: Order Comment: Speci men Type: FLUID SPECIMENOrdering Facility: [facility] Address: [address] [place] [address] Result Comment: Pleu ral fluids: Pleural fluid lactate dehydrogenase (LDH) measurements may be useful for classifying pleural effusions as exudates. A ratio of pleural fluid LDH to a concurrent serum LDH > 0.6 is suggestive of exudate.Peritoneal fluids: Ascitic fluid LDH measurements may aid in characterizing secondary peritonitis and should be interpreted along with other clinical and laboratory information.Synovial fluids: Synovial fluid LDH measurements may be useful as an inflammatory marker for various arthritic conditions and should be interpreted along with other clinical and laboratory information.Reference: 1. CLSI. Analysis of Body Fluids in Clinical Chemistry Approved Guideline. CLSI document C49A. MEGHNA Li: Clinical Laboratory Standards [place]: 2007.Reference: 2. Camila RANDLE, Adelso Giraldo. Body fluid analysis: clinical utility and applicability of published studies to guide interpretation of today's laboratory testing in serous fluids. Crit Rev Clin Lab Sci, 2013:50(4,5):107 to 124.Reference: 3. Kushal Zepeda Mitrovic DR. Lactate dehydrogenase activity and its isoenzymes in serum and synovial fluid of patients with rheumatoid arthritis and osteoarthritis. J Rheumatol. 1992:19:529 to 533. Performed By: #### 2 344-0, 2529-6, 1795-02 ####[facility] LABIA [id number] [place] [address] [place] LDH SerPl-cCncon 04-26-2025 LDH [Catalytic activity/Vol] 204 U/L Normal 135-225 [facility] Comment on above: Order Comment: Speci men Type: BLOOD SPECIMENOrdering Facility: [facility] Address: [address] [place] [address] Performed By: #### 2 532-0 ####[facility] LABORATORYCLIA [id number] [place] [address] [place] MANUAL DIFFERENTIAL, BODY FL UIDon 04-26-2025 DIF TTL, BODY FLUID 100 cells counted Normal [facility] Comment on above: Order Comment: Speci men Type: SPECIMEN FROM PLEURA OBTAINED BY THORACENTESISOrdering Facility: [facility] Address: [address] [place] [address] Performed By: #### C CBF, [id number] ####[facility] LABORATORYCLIA [id number] [place] [address] [place] LYMPH%, BF 27 % Normal 18-36 [facility] Comment on above: Order Comment: Speci men Type: SPECIMEN FROM PLEURA OBTAINED BY THORACENTESISOrdering Facility: [facility] Address: [address] [place] [address] Performed By: #### C CBF, [id number] ####[facility] LABORATORYCLIA [id number] [place] [address] [place] MACRO%, BF 15 % Low 64-80 [facility] Comment on above: Order Comment: Speci men Type: SPECIMEN FROM PLEURA OBTAINED BY THORACENTESISOrdering Facility: [facility] Address: [address] [place] [address] Performed By: #### C CBF, [id number] ####[facility]ORYCLIA [id number] [place] [address] [place] MESO %, BF 6 % High 0-2 [facility] Comment on above: Order Comment: Speci men Type: SPECIMEN FROM PLEURA OBTAINED BY THORACENTESISOrdering Facility: [facility] Address: [address] [place] [address] Performed By: #### C CBF, [id number] ####[facility]ATORYCLIA [id number] [address] [place] MONO% BF 5 % Normal [facility] Comment on above: Order Comment: Speci men Type: SPECIMEN FROM PLEURA OBTAINED BY THORACENTESISOrdering Facility: [facility] Address: [address] [place] [address] Performed By: #### C CBF, [id number] ####[facility] LABORATORYCLIA [id number] [place] [address] [place] NEUT%, BF 47 % High 0-1 [facility] Comment on above: Order Comment: Speci men Type: SPECIMEN FROM PLEURA OBTAINED BY THORACENTESISOrdering Facility: [facility] Address: [address] [place] [address] Performed By: #### C CBF, [id number] ####[facility] LABORATORYCLIA [id number] [place] [address] [place] Osmolality Uron 04-26-2025 Osmolality (U) [Osmolality] 406 mosm/kg Normal 50-1200 [facility] Comment on above: Order Comment: Speci men Type: URINE SPECIMENOrdering Facility: [facility] Address: [address] [place] [address] Performed By: #### 2 695-5, 90438-1 ####[facility]ORATORYCLIA [id number] [place] [address] [place] Prot SerPl-mCncon 04-26-2025 Protein [Mass/Vol] 6.0 g/dL Low 6.3-8.0 [facility] Comment on above: Order Comment: Speci men Type: BLOOD SPECIMENOrdering Facility: [facility] Address: [address] [place] [address] Performed By: #### 2 885-2, 71959-3 ####[facility] LABORATORYCLIA [id number] [place] [address] [place] Sodium ?Tm Ur-sCncon 025 Sodium Unsp time (U) [Moles/Vol] <20 Normal 14-216 [facility] Comment on above: Order Comment: Speci men Type: URINE SPECIMENOrdering Facility: [facility] Address: [address] [place] [address] Performed By: #### 2 695-5, 07905-6 ####[facility] LABORATORYCLIA [id number] [address] [place] THERAPY NTon 04-26-2025 THERAPY NT Normal [facility] THERAPY NT Normal [facility] XR CHEST 1V FRONTALon 2024 XR CHEST 1V FRONTAL Normal [facility] pH Fldon 04-26-2025 pH (Body fld) 8.20 [pH] Normal [facility] Comment on above: Order Comment: Speci men Type: SPECIMEN FROM PLEURA OBTAINED BY THORACENTESISOrdering Facility: [facility] Address: [address] [place] [address] Result Comment: A no rmal reference range has not been established for this body fluid. Performed By: #### 2 748-2 ####[facility] LABORATORYCLIA [id number] [place] [address] [place] ALLIED HEALTHon 04-25-2025 ALLIED HEALTH Normal [facility] Bacteria Spec Resp Culton Bacteria identified Respiratory culture Nom (Unsp spec) [facility] Comment on above: Performed By: #### 3 2355-0 ####[facility] LABORATORYCLIA [id number] [place] [address] [place] Basic metabolic 2000 panelon 04-25-2025 Anion gap [Moles/Vol] 9 mmol/L Normal 8-15 [facility] Comment on above: Order Comment: Speci men Type: BLOOD SPECIMENOrdering Facility: [facility] Address: [address] [place] [address] Performed By: #### 2 4323-8, 64104-1 ####[facility] LABORATORYCLIA [id number] [place] [address] [place] Calcium [Mass/Vol] 8.6 mg/dL Normal 8.5-10.2 [facility] Comment on above: Order Comment: Speci men Type: BLOOD SPECIMENOrdering Facility: [facility] Address: [address] [place] [address] Performed By: #### 2 4323-8, 45396-2 ####[facility] LABORATORYCLIA [id number] [place] [id number] [place] Chloride [Moles/Vol] 90 mmol/L Low 98-107 [facility] Comment on above: Order Comment: Speci men Type: BLOOD SPECIMENOrdering Facility: [facility] Address: [address] [place] [address] Performed By: #### 2 4323-8, 79420-2 ####[facility] LABORATORYCLIA [id number] [place] [id number] [place] CO2 [Moles/Vol] 24 mmol/L Normal 22-30 [facility] Comment on above: Order Comment: Speci men Type: BLOOD SPECIMENOrdering Facility: [facility] Address: [address] [place] [address] Performed By: #### 2 4323-8, 19252-0 ####[facility] LABORATORYCLIA [id number] [address] [place] Creatinine [Mass/Vol] 1.77 mg/dL High 0.73-1.22 [facility] Comment on above: Order Comment: Speci men Type: BLOOD SPECIMENOrdering Facility: [facility] Address: [address] [place] [address] Performed By: #### 2 4323-8, 43507-1 ####[facility] LABORATORYCLIA [id number] [address] Creatinine and Glomerular filtration rate.predicted panel (S/P/Bld) 45 mL/min/1.73m??? Low >=60 [facility] Comment on above: Order Comment: Speci men Type: BLOOD SPECIMENOrdering Facility: [facility] Address: [address] [place] [address] Result Comment: Autumn mated Glomerular Filtration Rate (eGFR) is calculated using the 2020 CKD-EPI creatinine equation. This equation utilizes serum creatinine, sex, and age as parameters. The creatinine assay has traceable calibration to isotope dilution-mass spectrometry. Refer to KDIGO guidelines for clinical interpretation. In patients with unstable renal function, e.g. those with acute kidney injury, the eGFR may not accurately reflect actual GFR. Performed By: #### 2 4323-8, ####[facility] LABORATORYCLIA [id number] [place] [place] [address] [place] Glucose [Mass/Vol] 128 mg/dL High 74-99 [facility] Comment on above: Order Comment: Sahil men Type: BLOOD SPECIMENOrdering Facility: [facility] Address: [address] [place] [address] Result Comment: The [place] Diabetes Association (ADA) provides guidance for cutoff values for fasting glucose and random glucose. The ADA defines fasting as no caloric intake for at least 8 hours. Fasting plasma glucose results between 100 to 125 mg/dL indicate increased risk for diabetes (prediabetes).Fasting plasma glucose results greater than or equal to 126 mg/dL meet the criteria for diagnosis of diabetes. In the absence of unequivocal hyperglycemia, results should be confirmed by repeat testing. In a patient with classic symptoms of hyperglycemia or hyperglycemic crisis, random plasma glucose results greater than or equal to 200 mg/dL meet the criteria for diagnosis of diabetes.Reference: Standards of Medical Care in Diabetes 2016, [place] Diabetes Association. Diabetes Care. 2016.39(Suppl 1). Performed By: #### 2 4323-8, ####[facility] LABORATORYCLIA [id number] [place] [address] [place] Potassium [Moles/Vol] 3.3 mmol/L Low 3.7-5.1 [facility] Comment on above: Order Comment: Sahil harper Type: BLOOD SPECIMENOrdering Facility: [facility] Address: [address] [place] [address] Performed By: #### 2 4323-8, ####[facility] LABORATORYCLIA [id number] [place] [id number] [place] Sodium [Moles/Vol] 123 mmol/L Low 136-144 [facility] Comment on above: Order Comment: Sahil men Type: BLOOD SPECIMENOrdering Facility: [facility] Address: [address] [place] [address] Performed By: #### 2 4323-8, 20115-1 ####[facility] LABORATORYCLIA [id number] [address] STATES OF [facility] Urea nitrogen [Mass/Vol] 64 mg/dL High 9-24 [facility] Comment on above: Order Comment: Speci men Type: BLOOD SPECIMENOrdering Facility: [facility] Address: [address] [place] [address] Performed By: #### 2 4323-8, 21755-9 ####[facility]ORATORYCLIA [id number] [address] CBC panel Auto (Bld)on 04-25 Erythrocyte distribution width (RBC) [Ratio] 19.2 % High 11.5-15.0 [facility] Comment on above: Order Comment: Speci men Type: BLOOD SPECIMENOrdering Facility: [facility] Address: [address] [place] [address] Performed By: #### 5 8410-2 ####[facility] LABORATORYCLIA [id number] [address] OF [facility] Hematocrit (Bld) [Volume fraction] 25.2 % Low 39.0-51.0 [facility] Comment on above: Order Comment: Speci men Type: BLOOD SPECIMENOrdering Facility: [facility] Address: [address] [place] [address] Performed By: #### 5 8410-2 ####[facility]ORATORYCLIA [id number] [address] [place] Hemoglobin (Bld) [Mass/Vol] 8.4 g/dL Low 13.0-17.0 [facility] Comment on above: Order Comment: Speci men Type: BLOOD SPECIMENOrdering Facility: [facility] Address: [address] [place] [address] Performed By: #### 5 8410-2 ####[facility]ORATORYCLIA [id number] [address] MCH (RBC) [Entitic mass] 35.0 pg High 26.0-34.0 [facility] Comment on above: Order Comment: Speci men Type: BLOOD SPECIMENOrdering Facility: [facility] Address: [address] [place] [address] Performed By: #### 5 8410-2 ####[facility]ORATORYCLIA [id number] [address] [place] MCHC (RBC) [Mass/Vol] 33.3 g/dL Normal 30.5-36.0 [facility] Comment on above: Order Comment: Speci men Type: BLOOD SPECIMENOrdering Facility: [facility] Address: [address] [place] [address] Performed By: #### 5 8410-2 ####[facility]ORATORYCLIA [id number] [address] [facility] MCV (RBC) [Entitic vol] 105.0 fL High 80.0-100.0 [facility] Comment on above: Order Comment: Speci men Type: BLOOD SPECIMENOrdering Facility: [facility] Address: [address] [place] [address] Performed By: #### 5 8410-2 ####[facility]ORATORYCLIA [id number] [address] Nucleated RBC (Bld) [#/Vol] 10*3/uL Normal <0.01 [facility] Comment on above: Order Comment: Speci men Type: BLOOD SPECIMENOrdering Facility: [facility] Address: [address] [place] [address] Performed By: #### 5 8410-2 ####[facility]ORATORYCLIA [id number] [address] Platelet mean volume (Bld) [Entitic vol] 9.9 fL Normal 9.0-12.7 [facility] Comment on above: Order Comment: Speci men Type: BLOOD SPECIMENOrdering Facility: [facility] Address: [address] [place] [address] Performed By: #### 5 8410-2 ####[facility]ORATORYCLIA [id number] [address] Platelets (Bld) [#/Vol] 84 10*3/uL Low 150-400 [facility] Comment on above: Order Comment: Speci men Type: BLOOD SPECIMENOrdering Facility: [facility] Address: [address] [place] [address] Result Comment: No c lot detected. Performed By: #### 5 8410-2 ####[facility]ORATORYCLIA [id number] [address] OF [facility] RBC (Bld) [#/Vol] 2.40 10*6/uL Low 4.20-6.00 [facility] Comment on above: Order Comment: Speci men Type: BLOOD SPECIMENOrdering Facility: [facility] Address: [address] [place] [address] Performed By: #### 5 8410-2 ####[facility]ORATORYCLIA [id number] [address] WBC (Bld) [#/Vol] 6.32 10*3/uL Normal 3.70-11.00 [facility] Comment on above: Order Comment: Speci men Type: BLOOD SPECIMENOrdering Facility: [facility] Address: [address] [place] [address] Performed By: #### 5 8410-2 ####[facility]ORATORYCLIA [id number] [address] CONSULTon 04-25-2025 CONSULT Normal [facility] Comprehensive metabolic 2000 panelon 04-25-2025 Albumin [Mass/Vol] 2.8 g/dL Low 3.9-4.9 [facility] Comment on above: Order Comment: Speci men Type: BLOOD SPECIMENOrdering Facility: [facility] Address: [address] [place] [address] Performed By: #### 2 4323-8, 84237-7 ####[facility]ORATORYCLIA [id number] [place] [address] [place] ALP [Catalytic activity/Vol] 209 U/L High 38-113 [facility] Comment on above: Order Comment: Speci men Type: BLOOD SPECIMENOrdering Facility: [facility] Address: [address] [place] [address] Performed By: #### 2 4323-8, 57018-4 ####[facility]ORATORYCLIA [id number] [place] [address] [place] ALT With P-5'-P [Catalytic activity/Vol] 41 U/L Normal 10-54 [facility] Comment on above: Order Comment: Speci men Type: BLOOD SPECIMENOrdering Facility: [facility] Address: [address] [place] [address] Performed By: #### 2 4323-8, 56913-7 ####[facility]ORATORYCLIA [id number] [address] [place] Anion gap [Moles/Vol] 13 mmol/L Normal 8-15 [facility] Comment on above: Order Comment: Speci men Type: BLOOD SPECIMENOrdering Facility: [facility] Address: [address] [place] [address] Performed By: #### 2 4323-8, 40597-7 ####[facility]ORATORYCLIA [id number] [place] [address] [place] AST With P-5'-P [Catalytic activity/Vol] 86 U/L High 14-40 [facility] Comment on above: Order Comment: Speci men Type: BLOOD SPECIMENOrdering Facility: [facility] Address: [address] [place] [address] Performed By: #### 2 4323-8, 12659-5 ####[facility]ORATORYCLIA [id number] [place] [id number] [place] Bilirubin [Mass/Vol] 9.4 mg/dL High 0.2-1.3 [facility] Comment on above: Order Comment: Speci men Type: BLOOD SPECIMENOrdering Facility: [facility] Address: [address] [place] [address] Performed By: #### 2 4323-8, 67917-0 ####[facility]ORATORYCLIA [id number] [place] [address] [place] Calcium [Mass/Vol] 8.5 mg/dL Normal 8.5-10.2 [facility] Comment on above: Order Comment: Speci men Type: BLOOD SPECIMENOrdering Facility: [facility] Address: [address] [place] [address] Performed By: #### 2 432-8, 51207-4 ####[facility]ORATORYCLIA [id number] [place] [address] [place] Chloride [Moles/Vol] 91 mmol/L Low 98-107 [facility] Comment on above: Order Comment: Speci men Type: BLOOD SPECIMENOrdering Facility: [facility] Address: [address] [place] [address] Performed By: #### 2 8, ####[facility]ORATORYCLIA [id number] [place] [address] [place] CO2 [Moles/Vol] 22 mmol/L Normal 22-30 [facility] Comment on above: Order Comment: Speci men Type: BLOOD SPECIMENOrdering Facility: [facility] Address: [address] [place] [address] Performed By: #### 2 8, 71277-0 ####[facility]ORATORYCLIA [id number] [place] [address] [place] Creatinine [Mass/Vol] 1.73 mg/dL High 0.73-1.22 [facility] Comment on above: Order Comment: Speci men Type: BLOOD SPECIMENOrdering Facility: [facility] Address: [address] [place] [address] Performed By: #### 2 432-8, 78881-5 ####[facility]ORATORYCLIA [id number] [place] [address] [place] Creatinine and Glomerular filtration rate.predicted panel (S/P/Bld) 46 mL/min/1.73m??? Low >=60 [facility] Comment on above: Order Comment: Sahil harper Type: BLOOD SPECIMENOrdering Facility: [facility] Address: [address] [place] [address] Result Comment: Autumn mated Glomerular Filtration Rate (eGFR) is calculated using the 2020 CKD-EPI creatinine equation. This equation utilizes serum creatinine, sex, and age as parameters. The creatinine assay has traceable calibration to isotope dilution-mass spectrometry. Refer to KDIGO guidelines for clinical interpretation. In patients with unstable renal function, e.g. those with acute kidney injury, the eGFR may not accurately reflect actual GFR. Performed By: #### 2 4323-8, 43236-3 ####[facility]ORATORYCLIA [id number] [place] [address] [place] Glucose [Mass/Vol] 125 mg/dL High 74-99 [facility] Comment on above: Order Comment: Sahil harper Type: BLOOD SPECIMENOrdering Facility: [facility] Address: [address] [place] [address] Result Comment: The [place] Diabetes Association (ADA) provides guidance for cutoff values for fasting glucose and random glucose. The ADA defines fasting as no caloric intake for at least 8 hours. Fasting plasma glucose results between 100 to 125 mg/dL indicate increased risk for diabetes (prediabetes).Fasting plasma glucose results greater than or equal to 126 mg/dL meet the criteria for diagnosis of diabetes. In the absence of unequivocal hyperglycemia, results should be confirmed by repeat testing. In a patient with classic symptoms of hyperglycemia or hyperglycemic crisis, random plasma glucose results greater than or equal to 200 mg/dL meet the criteria for diagnosis of diabetes.Reference: Standards of Medical Care in Diabetes 2016, [place] Diabetes Association. Diabetes Care. 2016.39(Suppl 1). Performed By: #### 2 4323-8, 18829-5 ####[facility]ORATORYCLIA [id number] [place] [address] [place] Potassium [Moles/Vol] 3.4 mmol/L Low 3.7-5.1 [facility] Comment on above: Order Comment: Speci men Type: BLOOD SPECIMENOrdering Facility: [facility] Address: [address] [place] [address] Performed By: #### 2 4323-8, 49188-5 ####[facility]ORATORYCLIA [id number] [place] [address] [place] Protein [Mass/Vol] 5.8 g/dL Low 6.3-8.0 [facility] Comment on above: Order Comment: Speci men Type: BLOOD SPECIMENOrdering Facility: [facility] Address: [address] [place] [address] Performed By: #### 2 4323-8, 90442-1 ####[facility]ORATORYCLIA [id number] [place] [address] [place] Sodium [Moles/Vol] 126 mmol/L Low 136-144 [facility] Comment on above: Order Comment: Speci men Type: BLOOD SPECIMENOrdering Facility: [facility] Address: [address] [place] [address] Performed By: #### 2 4323-8, 07168-9 ####[facility]ORATORYCLIA [id number] [place] [address] [place] Urea nitrogen [Mass/Vol] 61 mg/dL High 9-24 [facility] Comment on above: Order Comment: Speci men Type: BLOOD SPECIMENOrdering Facility: [facility] Address: [address] [place] [address] Performed By: #### 2 4323-8, 85617-0 ####[facility]ORATORYCLIA [id number] [place] [address] [place] NUTRITIONon 04-25-2025 NUTRITION Normal [facility] Prot Fld-mCncon 04-25-2025 Protein (Body fld) [Mass/Vol] 2.2 g/dL Normal See Comment [facility] Comment on above: Order Comment: Speci men Type: FLUID SPECIMENOrdering Facility: [facility] Address: [address] [place] [address] Result Comment: Sero us fluids: Effusions are the accumulation of clinically detected fluid in any of the serous cavities. Effusions are further into transudates and exudates, which aid in determining the etiology of the effusion.Transudate: Body fluid total protein measurement < 3.0 g/dL. A ratio of serous fluid total protein to a concurrent serum total protein < 0.5 indicates a transudate.Exudate: Body fluid total protein measurement >= 3.0 g/dL. A ratio of serous fluid total protein to a concurrent serum total protein >= 0.5 indicates an exudate.Reference: 1. CLSI. Analysis of Body Fluids in Clinical Chemistry Approved Guideline. CLSI document C49A. MEGHNA Li: Clinical Laboratory Standards [place]: 2007. Performed By: #### 2 881-1 ####[facility] LABCLIA [id number] [place] [address] [place] XR CHEST 1V FRONTALon 2024 XR CHEST 1V FRONTAL Normal [facility] ALLIED HEALTHon 04-24-2025 ALLIED HEALTH Normal [facility] Basic metabolic 2000 panelon 04-24-2025 Anion gap [Moles/Vol] 11 mmol/L Normal 8-15 [facility] Comment on above: Order Comment: Speci men Type: BLOOD SPECIMENOrdering Facility: [facility] Address: [address] [place] [address] Performed By: #### 2 4321-2 ####[facility] LABORATORYCLIA [id number] [place] [address] [place] Calcium [Mass/Vol] 7.9 mg/dL Low 8.5-10.2 [facility] Comment on above: Order Comment: Speci men Type: BLOOD SPECIMENOrdering Facility: [facility] Address: [address] [place] [address] Performed By: #### 2 4321-2 ####[facility] LABORATORYCLIA [id number] [place] [address] [place] Chloride [Moles/Vol] 95 mmol/L Low 98-107 [facility] Comment on above: Order Comment: Speci men Type: BLOOD SPECIMENOrdering Facility: [facility] Address: [address] [place] [address] Performed By: #### 2 4321-2 ####[facility] LABORATORYCLIA [id number] [place] [id number] [place] CO2 [Moles/Vol] 22 mmol/L Normal 22-30 [facility] Comment on above: Order Comment: Speci men Type: BLOOD SPECIMENOrdering Facility: [facility] Address: [address] [place] [address] Performed By: #### 2 4321-2 ####[facility]ORATORYCLIA [id number] [place] [address] [place] Creatinine [Mass/Vol] 1.83 mg/dL High 0.73-1.22 [facility] Comment on above: Order Comment: Speci men Type: BLOOD SPECIMENOrdering Facility: [facility] Address: [address] [place] [address] Performed By: #### 2 4321-2 ####[facility]ORATORYCLIA [id number] [address] Creatinine and Glomerular filtration rate.predicted panel (S/P/Bld) 43 mL/min/1.73m??? Low >=60 [facility] Comment on above: Order Comment: Speci men Type: BLOOD SPECIMENOrdering Facility: [facility] Address: [address] [place] [address] Result Comment: Autumn mated Glomerular Filtration Rate (eGFR) is calculated using the 2020 CKD-EPI creatinine equation. This equation utilizes serum creatinine, sex, and age as parameters. The creatinine assay has traceable calibration to isotope dilution-mass spectrometry. Refer to KDIGO guidelines for clinical interpretation. In patients with unstable renal function, e.g. those with acute kidney injury, the eGFR may not accurately reflect actual GFR. Performed By: #### 2 4321-2 ####[facility]ORATORYCLIA [id number] [address] [place] Glucose [Mass/Vol] 142 mg/dL High 74-99 [facility] Comment on above: Order Comment: Speci men Type: BLOOD SPECIMENOrdering Facility: [facility] Address: [address] [place] [address] Result Comment: The [place] Diabetes Association (ADA) provides guidance for cutoff values for fasting glucose and random glucose. The ADA defines fasting as no caloric intake for at least 8 hours. Fasting plasma glucose results between 100 to 125 mg/dL indicate increased risk for diabetes (prediabetes).Fasting plasma glucose results greater than or equal to 126 mg/dL meet the criteria for diagnosis of diabetes. In the absence of unequivocal hyperglycemia, results should be confirmed by repeat testing. In a patient with classic symptoms of hyperglycemia or hyperglycemic crisis, random plasma glucose results greater than or equal to 200 mg/dL meet the criteria for diagnosis of diabetes.Reference: Standards of Medical Care in Diabetes 2016, [place] Diabetes Association. Diabetes Care. 2016.39(Suppl 1). Performed By: #### 2 4321-2 ####[facility]ORATORYCLIA [id number] [place] [address] [place] Potassium [Moles/Vol] 3.6 mmol/L Low 3.7-5.1 [facility] Comment on above: Order Comment: Speci men Type: BLOOD SPECIMENOrdering Facility: [facility] Address: [address] [place] [address] Performed By: #### 2 4321-2 ####[facility]ORATORYCLIA [id number] [place] [address] [place] Sodium [Moles/Vol] 128 mmol/L Low 136-144 [facility] Comment on above: Order Comment: Speci men Type: BLOOD SPECIMENOrdering Facility: [facility] Address: [address] [place] [address] Performed By: #### 2 4321-2 ####[facility]ORATORYCLIA [id number] [place] [address] [place] Urea nitrogen [Mass/Vol] 64 mg/dL High 9-24 [facility] Comment on above: Order Comment: Speci men Type: BLOOD SPECIMENOrdering Facility: [facility] Address: [address] [place] [address] Performed By: #### 2 1-2 ####[facility] LABORATORYCLIA [id number] [address] [place] CASE MANAGEMon 04-24-2025 CASE MANAGEM Normal [facility] CBC panel Auto (Bld)on 04-24 Erythrocyte distribution width (RBC) [Ratio] 17.6 % High 11.5-15.0 [facility] Comment on above: Order Comment: Speci men Type: BLOOD SPECIMENOrdering Facility: [facility] Address: [address] [place] [address] Performed By: #### 5 8410-2 ####[facility] LABORATORYCLIA [id number] [address] Hematocrit (Bld) [Volume fraction] 21.4 % Low 39.0-51.0 [facility] Comment on above: Order Comment: Speci men Type: BLOOD SPECIMENOrdering Facility: [facility] Address: [address] [place] [address] Performed By: #### 5 8410-2 ####[facility] LABORATORYCLIA [id number] [address] STATES OF [facility] Hemoglobin (Bld) [Mass/Vol] 7.1 g/dL Low 13.0-17.0 [facility] Comment on above: Order Comment: Speci men Type: BLOOD SPECIMENOrdering Facility: [facility] Address: [address] [place] [address] Performed By: #### 5 8410-2 ####[facility]ORATORYCLIA [id number] [address] STATES OF [facility] MCH (RBC) [Entitic mass] 36.0 pg High 26.0-34.0 [facility] Comment on above: Order Comment: Speci men Type: BLOOD SPECIMENOrdering Facility: [facility] Address: [address] [place] [address] Performed By: #### 5 8410-2 ####[facility]ORATORYCLIA [id number] [address] [facility] MCHC (RBC) [Mass/Vol] 33.2 g/dL Normal 30.5-36.0 [facility] Comment on above: Order Comment: Speci men Type: BLOOD SPECIMENOrdering Facility: [facility] Address: [address] [place] [address] Performed By: #### 5 8410-2 ####[facility] LABORATORYCLIA [id number] [address] OF [facility] MCV (RBC) [Entitic vol] 108.6 fL High 80.0-100.0 [facility] Comment on above: Order Comment: Speci men Type: BLOOD SPECIMENOrdering Facility: [facility] Address: [address] [place] [address] Performed By: #### 5 8410-2 ####[facility] LABORATORYCLIA [id number] [address] OF [facility] Nucleated RBC (Bld) [#/Vol] 10*3/uL Normal <0.01 [facility] Comment on above: Order Comment: Speci men Type: BLOOD SPECIMENOrdering Facility: [facility] Address: [address] [place] [address] Performed By: #### 5 8410-2 ####[facility] LABORATORYCLIA [id number] [address] Platelet mean volume (Bld) [Entitic vol] 10.1 fL Normal 9.0-12.7 [facility] Comment on above: Order Comment: Speci men Type: BLOOD SPECIMENOrdering Facility: [facility] Address: [address] [place] [address] Performed By: #### 5 8410-2 ####[facility] LABORATORYCLIA [id number] [address] [place] Platelets (Bld) [#/Vol] 80 10*3/uL Low 150-400 [facility] Comment on above: Order Comment: Speci men Type: BLOOD SPECIMENOrdering Facility: [facility] Address: [address] [place] [address] Performed By: #### 5 8410-2 ####[facility]ORATORYCLIA [id number] [address] [place] RBC (Bld) [#/Vol] 1.97 10*6/uL Low 4.20-6.00 [facility] Comment on above: Order Comment: Speci men Type: BLOOD SPECIMENOrdering Facility: [facility] Address: [address] [place] [address] Performed By: #### 5 8410-2 ####[facility] LABORATORYCLIA [id number] [address] OF [place] WBC (Bld) [#/Vol] 6.36 10*3/uL Normal 3.70-11.00 [facility] Comment on above: Order Comment: Speci men Type: BLOOD SPECIMENOrdering Facility: [facility] Address: [address] [place] [address] Performed By: #### 5 8410-2 ####[facility] LABORATORYCLIA [id number] [address] OF [facility] CT CHEST WO IVCONon 04-24-[address] CHEST WO IVCON Normal [facility] THERAPY NTon 04-24-2025 THERAPY NT Normal [facility] TYPE + SCREENon 04-24-2025 ABO AB Normal [facility] Comment on above: Order Comment: Speci men Type: BLOOD SPECIMENOrdering Facility: [facility] Address: [address] [place] [address] Performed By: #### T SCR ####[facility] BLOOD BANKCLIA [id number] [address] [place] Rh Nom (Bld) Positive Normal [facility] Comment on above: Order Comment: Speci men Type: BLOOD SPECIMENOrdering Facility: [facility] Address: [address] [place] [address] Performed By: #### T SCR ####[facility] BLOOD BANKCLIA [id number] [address] OF [facility] TYPE AND SCREEN EXPIRATION 04/27/2025 23:59 Normal [facility] Comment on above: Order Comment: Speci men Type: BLOOD SPECIMENOrdering Facility: [facility] Address: [address] [place] [address] Performed By: #### T SCR ####[facility] BLOOD BANKCLIA [id number] [place] [address] [place] XR CHEST 1V FRONTALon 2024 XR CHEST 1V FRONTAL Normal [facility] Basic metabolic 2000 panelon 04-23-2025 Anion gap [Moles/Vol] 11 mmol/L Normal 8-15 [facility] Comment on above: Order Comment: Speci men Type: BLOOD SPECIMENOrdering Facility: [facility] Address: [address] [place] [address] Performed By: #### 2 4321-2 ####[facility] LABORATORYCLIA [id number] [place] [address] [place] Calcium [Mass/Vol] 8.5 mg/dL Normal 8.5-10.2 [facility] Comment on above: Order Comment: Speci men Type: BLOOD SPECIMENOrdering Facility: [facility] Address: [address] [place] [address] Performed By: #### 2 4321-2 ####[facility] LABORATORYCLIA [id number] [place] [address] [place] Chloride [Moles/Vol] 88 mmol/L Low 98-107 [facility] Comment on above: Order Comment: Speci men Type: BLOOD SPECIMENOrdering Facility: [facility] Address: [address] [place] [address] Performed By: #### 2 4321-2 ####[facility] LABORATORYCLIA [id number] [place] [address] [place] CO2 [Moles/Vol] 26 mmol/L Normal 22-30 [facility] Comment on above: Order Comment: Speci men Type: BLOOD SPECIMENOrdering Facility: [facility] Address: [address] [place] [address] Performed By: #### 2 4321-2 ####[facility] LABORATORYCLIA [id number] [place] [address] [place] Creatinine [Mass/Vol] 2.36 mg/dL High 0.73-1.22 [facility] Comment on above: Order Comment: Sahil harper Type: BLOOD SPECIMENOrdering Facility: [facility] Address: [address] [place] [address] Performed By: #### 2 4321-2 ####[facility] LABORATORYCLIA [id number] [place] [id number] [facility] [place] Creatinine and Glomerular filtration rate.predicted panel (S/P/Bld) 32 mL/min/1.73m??? Low >=60 [facility] Comment on above: Order Comment: Sahil harper Type: BLOOD SPECIMENOrdering Facility: [facility] Address: [address] [place] [address] Result Comment: Autumn mated Glomerular Filtration Rate (eGFR) is calculated using the 2020 CKD-EPI creatinine equation. This equation utilizes serum creatinine, sex, and age as parameters. The creatinine assay has traceable calibration to isotope dilution-mass spectrometry. Refer to KDIGO guidelines for clinical interpretation. In patients with unstable renal function, e.g. those with acute kidney injury, the eGFR may not accurately reflect actual GFR. Performed By: #### 2 4321-2 ####[facility] HAUTEIA [id number] [place] [address] [place] Glucose [Mass/Vol] 157 mg/dL High 74-99 [facility] Comment on above: Order Comment: Sahil harper Type: BLOOD SPECIMENOrdering Facility: [facility] Address: [address] [place] [address] Result Comment: The [place] Diabetes Association (ADA) provides guidance for cutoff values for fasting glucose and random glucose. The ADA defines fasting as no caloric intake for at least 8 hours. Fasting plasma glucose results between 100 to 125 mg/dL indicate increased risk for diabetes (prediabetes).Fasting plasma glucose results greater than or equal to 126 mg/dL meet the criteria for diagnosis of diabetes. In the absence of unequivocal hyperglycemia, results should be confirmed by repeat testing. In a patient with classic symptoms of hyperglycemia or hyperglycemic crisis, random plasma glucose results greater than or equal to 200 mg/dL meet the criteria for diagnosis of diabetes.Reference: Standards of Medical Care in Diabetes 2016, [place] Diabetes Association. Diabetes Care. 2016.39(Suppl 1). Performed By: #### 2 4321-2 ####[facility] LABORATORYCLIA [id number] [place] [address] [place] Potassium [Moles/Vol] 3.8 mmol/L Normal 3.7-5.1 [facility] Comment on above: Order Comment: Speci men Type: BLOOD SPECIMENOrdering Facility: [facility] Address: [address] [place] [address] Performed By: #### 2 4321-2 ####[facility] LABORATORYCLIA [id number] [address] STATES OF [facility] Sodium [Moles/Vol] 125 mmol/L Low 136-144 [facility] Comment on above: Order Comment: Speci men Type: BLOOD SPECIMENOrdering Facility: [facility] Address: [address] [place] [address] Performed By: #### 2 4321-2 ####[facility] LABORATORYCLIA [id number] [place] [address] [place] Urea nitrogen [Mass/Vol] 51 mg/dL High 9-24 [facility] Comment on above: Order Comment: Speci men Type: BLOOD SPECIMENOrdering Facility: [facility] Address: [address] [place] [address] Performed By: #### 2 4321-2 ####[facility] LABORATORYCLIA [id number] [address] [facility] Anion gap [Moles/Vol] 11 mmol/L Normal 8-15 [facility] Comment on above: Order Comment: Speci men Type: BLOOD SPECIMENOrdering Facility: [facility] Address: [address] [place] [address] Performed By: #### 2 4321-2 ####[facility] LABORATORYCLIA [id number] [place] [address] [place] Calcium [Mass/Vol] 8.7 mg/dL Normal 8.5-10.2 [facility] Comment on above: Order Comment: Speci men Type: BLOOD SPECIMENOrdering Facility: [facility] Address: [address] [place] [address] Performed By: #### 2 4321-2 ####[facility] LABORATORYCLIA [id number] [place] [address] [place] Chloride [Moles/Vol] 88 mmol/L Low 98-107 [facility] Comment on above: Order Comment: Speci men Type: BLOOD SPECIMENOrdering Facility: [facility] Address: [address] [place] [address] Performed By: #### 2 4321-2 ####[facility] LABORATORYCLIA [id number] [address] [place] CO2 [Moles/Vol] 26 mmol/L Normal 22-30 [facility] Comment on above: Order Comment: Speci men Type: BLOOD SPECIMENOrdering Facility: [facility] Address: [address] [place] [address] Performed By: #### 2 4321-2 ####[facility] LABORATORYCLIA [id number] [address] [place] Creatinine [Mass/Vol] 2.32 mg/dL High 0.73-1.22 [facility] Comment on above: Order Comment: Speci men Type: BLOOD SPECIMENOrdering Facility: [facility] Address: [address] [place] [address] Performed By: #### 2 4321-2 ####[facility] LABORATORYCLIA [id number] [address] Creatinine and Glomerular filtration rate.predicted panel (S/P/Bld) 33 mL/min/1.73m??? Low >=60 [facility] Comment on above: Order Comment: Speci men Type: BLOOD SPECIMENOrdering Facility: [facility] Address: [address] [place] [address] Result Comment: Autumn mated Glomerular Filtration Rate (eGFR) is calculated using the 2020 CKD-EPI creatinine equation. This equation utilizes serum creatinine, sex, and age as parameters. The creatinine assay has traceable calibration to isotope dilution-mass spectrometry. Refer to KDIGO guidelines for clinical interpretation. In patients with unstable renal function, e.g. those with acute kidney injury, the eGFR may not accurately reflect actual GFR. Performed By: #### 2 4321-2 ####[facility] LABORATORYCLIA [id number] [place] [address] [place] Glucose [Mass/Vol] 122 mg/dL High 74-99 [facility] Comment on above: Order Comment: Speci men Type: BLOOD SPECIMENOrdering Facility: [facility] Address: [address] [place] [address] Result Comment: The [place] Diabetes Association (ADA) provides guidance for cutoff values for fasting glucose and random glucose. The ADA defines fasting as no caloric intake for at least 8 hours. Fasting plasma glucose results between 100 to 125 mg/dL indicate increased risk for diabetes (prediabetes).Fasting plasma glucose results greater than or equal to 126 mg/dL meet the criteria for diagnosis of diabetes. In the absence of unequivocal hyperglycemia, results should be confirmed by repeat testing. In a patient with classic symptoms of hyperglycemia or hyperglycemic crisis, random plasma glucose results greater than or equal to 200 mg/dL meet the criteria for diagnosis of diabetes.Reference: Standards of Medical Care in Diabetes 2016, [place] Diabetes Association. Diabetes Care. 2016.39(Suppl 1). Performed By: #### 2 4321-2 ####[facility] LABORATORYCLIA [id number] [place] [address] [place] Potassium [Moles/Vol] 3.9 mmol/L Normal 3.7-5.1 [facility] Comment on above: Order Comment: Speci men Type: BLOOD SPECIMENOrdering Facility: [facility] Address: [address] [id number] Performed By: #### 2 4321-2 ####[facility] LABORATORYCLIA [id number] [place] [address] [place] Sodium [Moles/Vol] 125 mmol/L Low 136-144 [facility] Comment on above: Order Comment: Speci men Type: BLOOD SPECIMENOrdering Facility: [facility] Address: [address] [place] [address] Performed By: #### 2 4321-2 ####[facility] LABORATORYCLIA [id number] [address] [facility] Urea nitrogen [Mass/Vol] 59 mg/dL High 9-24 [facility] Comment on above: Order Comment: Speci men Type: BLOOD SPECIMENOrdering Facility: [facility] Address: [address] [place] [address] Performed By: #### 2 4321-2 ####[facility] LABORATORYCLIA [id number] [address] [facility] CBC panel Auto (Bld)on 04-23 Erythrocyte distribution width (RBC) [Ratio] 17.5 % High 11.5-15.0 [facility] Comment on above: Order Comment: Speci men Type: BLOOD SPECIMENOrdering Facility: [facility] Address: [address] [place] [address] Performed By: #### 5 8410-2 ####[facility] LABORATORYCLIA [id number] [address] [facility] Hematocrit (Bld) [Volume fraction] 23.1 % Low 39.0-51.0 [facility] Comment on above: Order Comment: Speci men Type: BLOOD SPECIMENOrdering Facility: [facility] Address: [address] [place] [address] Performed By: #### 5 8410-2 ####[facility] LABORATORYCLIA [id number] [address] Hemoglobin (Bld) [Mass/Vol] 7.3 g/dL Low 13.0-17.0 [facility] Comment on above: Order Comment: Speci men Type: BLOOD SPECIMENOrdering Facility: [facility] Address: [address] [place] [address] Performed By: #### 5 8410-2 ####[facility] LABORATORYCLIA [id number] [address] [facility] MCH (RBC) [Entitic mass] 35.1 pg High 26.0-34.0 [facility] Comment on above: Order Comment: Speci men Type: BLOOD SPECIMENOrdering Facility: [facility] Address: [address] [place] [address] Performed By: #### 5 8410-2 ####[facility] LABORATORYCLIA [id number] [address] STATES OF [facility] MCHC (RBC) [Mass/Vol] 31.6 g/dL Normal 30.5-36.0 [facility] Comment on above: Order Comment: Speci men Type: BLOOD SPECIMENOrdering Facility: [facility] Address: [address] [place] [address] Performed By: #### 5 8410-2 ####[facility] LABORATORYCLIA [id number] [address] STATES OF [facility] MCV (RBC) [Entitic vol] 111.1 fL High 80.0-100.0 [facility] Comment on above: Order Comment: Speci men Type: BLOOD SPECIMENOrdering Facility: [facility] Address: [address] [place] [address] Performed By: #### 5 8410-2 ####[facility] LABORATORYCLIA [id number] [address] Nucleated RBC (Bld) [#/Vol] 10*3/uL Normal <0.01 [facility] Comment on above: Order Comment: Speci men Type: BLOOD SPECIMENOrdering Facility: [facility] Address: [address] [place] [address] Performed By: #### 5 8410-2 ####[facility] LABORATORYCLIA [id number] [address] Platelet mean volume (Bld) [Entitic vol] 9.7 fL Normal 9.0-12.7 [facility] Comment on above: Order Comment: Speci men Type: BLOOD SPECIMENOrdering Facility: [facility] Address: [address] [place] [address] Performed By: #### 5 8410-2 ####[facility] LABORATORYCLIA [id number] [address] [place] Platelets (Bld) [#/Vol] 79 10*3/uL Low 150-400 [facility] Comment on above: Order Comment: Speci men Type: BLOOD SPECIMENOrdering Facility: [facility] Address: [address] [place] [address] Performed By: #### 5 8410-2 ####[facility] LABORATORYCLIA [id number] [address] [place] RBC (Bld) [#/Vol] 2.08 10*6/uL Low 4.20-6.00 [facility] Comment on above: Order Comment: Speci men Type: BLOOD SPECIMENOrdering Facility: [facility] Address: [address] [place] [address] Performed By: #### 5 8410-2 ####[facility] LABORATORYCLIA [id number] [address] STATES OF [facility] WBC (Bld) [#/Vol] 5.99 10*3/uL Normal 3.70-11.00 [facility] Comment on above: Order Comment: Speci men Type: BLOOD SPECIMENOrdering Facility: [facility] Address: [address] [place] [address] Performed By: #### 5 8410-2 ####[facility] LABORATORYCLIA [id number] [address] Erythrocyte distribution width (RBC) [Ratio] 17.7 % High 11.5-15.0 [facility] Comment on above: Order Comment: Speci men Type: BLOOD SPECIMENOrdering Facility: [facility] Address: [address] [place] [address] Performed By: #### 5 8410-2 ####[facility] LABORATORYCLIA [id number] [address] [place] Hematocrit (Bld) [Volume fraction] 22.8 % Low 39.0-51.0 [facility] Comment on above: Order Comment: Speci men Type: BLOOD SPECIMENOrdering Facility: [facility] Address: [address] [place] [address] Performed By: #### 5 8410-2 ####[facility] LABORATORYCLIA [id number] [address] Hemoglobin (Bld) [Mass/Vol] 7.4 g/dL Low 13.0-17.0 [facility] Comment on above: Order Comment: Speci men Type: BLOOD SPECIMENOrdering Facility: [facility] Address: [address] [place] [address] Performed By: #### 5 8410-2 ####[facility] LABORATORYCLIA [id number] [address] MCH (RBC) [Entitic mass] 35.7 pg High 26.0-34.0 [facility] Comment on above: Order Comment: Speci men Type: BLOOD SPECIMENOrdering Facility: [facility] Address: [address] [place] [address] Performed By: #### 5 8410-2 ####[facility] LABORATORYCLIA [id number] [address] MCHC (RBC) [Mass/Vol] 32.5 g/dL Normal 30.5-36.0 [facility] Comment on above: Order Comment: Speci men Type: BLOOD SPECIMENOrdering Facility: [facility] Address: [address] [place] [address] Performed By: #### 5 8410-2 ####[facility] LABORATORYCLIA [id number] [address] MCV (RBC) [Entitic vol] 110.1 fL High 80.0-100.0 [facility] Comment on above: Order Comment: Speci men Type: BLOOD SPECIMENOrdering Facility: [facility] Address: [address] [place] [address] Performed By: #### 5 8410-2 ####[facility] LABORATORYCLIA [id number] [address] Nucleated RBC (Bld) [#/Vol] 10*3/uL Normal <0.01 [facility] Comment on above: Order Comment: Speci men Type: BLOOD SPECIMENOrdering Facility: [facility] Address: [address] [place] [address] Performed By: #### 5 8410-2 ####[facility] LABORATORYCLIA [id number] [address] OF [facility] Platelet mean volume (Bld) [Entitic vol] 9.7 fL Normal 9.0-12.7 [facility] Comment on above: Order Comment: Speci men Type: BLOOD SPECIMENOrdering Facility: [facility] Address: [address] [place] [address] Performed By: #### 5 8410-2 ####[facility] LABORATORYCLIA [id number] [address] Platelets (Bld) [#/Vol] 88 10*3/uL Low 150-400 [facility] Comment on above: Order Comment: Speci men Type: BLOOD SPECIMENOrdering Facility: [facility] Address: [address] [place] [address] Result Comment: No c lot detected. Performed By: #### 5 8410-2 ####[facility] LABORATORYCLIA [id number] [address] RBC (Bld) [#/Vol] 2.07 10*6/uL Low 4.20-6.00 [facility] Comment on above: Order Comment: Speci men Type: BLOOD SPECIMENOrdering Facility: [facility] Address: [address] [place] [address] Performed By: #### 5 8410-2 ####[facility] LABORATORYCLIA [id number] [address] [place] WBC (Bld) [#/Vol] 7.43 10*3/uL Normal 3.70-11.00 [facility] Comment on above: Order Comment: Speci men Type: BLOOD SPECIMENOrdering Facility: [facility] Address: [address] [place] [address] Performed By: #### 5 8410-2 ####[facility] LABORATORYCLIA [id number] [address] [place] CONSULT PROGon 04-23-2025 CONSULT PROG Normal [facility] Creatinine Unsp time (U) [Ma ss/Vol]on 04-23-2025 Creatinine (U) [Mass/Vol] 120.8 mg/dL Normal 46.8-314.5 [facility] Comment on above: Order Comment: Speci men Type: URINE SPECIMENOrdering Facility: [facility] Address: [address] [place] [address] Performed By: #### 3 5674-1, 85040-5 ####[facility] LABORATORYCLIA [id number] [address] [place] NURSING PROGon 04-23-2025 NURSING PROG Normal [facility] NURSING PROG Normal [facility] Sodium ?Tm Ur-sCncon 025 Sodium Unsp time (U) [Moles/Vol] <20 Normal 14-216 [facility] Comment on above: Order Comment: Speci men Type: URINE SPECIMENOrdering Facility: [facility] Address: [address] [place] [address] Performed By: #### 3 5674-1, 88006-6 ####[facility] LABORATORYCLIA [id number] [address] [place] THERAPY NTon 04-23-2025 THERAPY NT Normal [facility] XR CHEST 1V FRONTALon 2024 XR CHEST 1V FRONTAL Normal [facility] Ammonia Plas-sCncon 04-22-20 25 Ammonia (P) [Moles/Vol] 21 umol/L Normal 16-60 [facility] Comment on above: Order Comment: Speci men Type: BLOOD SPECIMENOrdering Facility: [facility] Address: [address] [place] [address] Performed By: #### 1 6362-6 ####[facility]ORATORYCLIA [id number] [place] [address] [place] Basic metabolic 2000 panelon 04-22-2025 Anion gap [Moles/Vol] 15 mmol/L Normal 8-15 [facility] Comment on above: Order Comment: Speci men Type: BLOOD SPECIMENOrdering Facility: [facility] Address: [address] [place] [address] Performed By: #### 2 4321-2, 25389-3 ####[facility]ORATORYCLIA [id number] [place] [address] [place] Calcium [Mass/Vol] 8.9 mg/dL Normal 8.5-10.2 [facility] Comment on above: Order Comment: Speci men Type: BLOOD SPECIMENOrdering Facility: [facility] Address: [address] [place] [address] Performed By: #### 2 4321-2, 74607-2 ####[facility] LABORATORYCLIA [id number] [place] [address] [place] Chloride [Moles/Vol] 88 mmol/L Low 98-107 [facility] Comment on above: Order Comment: Speci men Type: BLOOD SPECIMENOrdering Facility: [facility] Address: [address] [place] [address] Performed By: #### 2 1-2, 87102-5 ####[facility]ATORYCLIA [id number] [place] [address] [place] CO2 [Moles/Vol] 24 mmol/L Normal 22-30 [facility] Comment on above: Order Comment: Speci men Type: BLOOD SPECIMENOrdering Facility: [facility] Address: [address] [place] [address] Performed By: #### 2 4321-2, 69111-2 ####[facility] LABORATORYCLIA [id number] [place] [address] [place] Creatinine [Mass/Vol] 1.41 mg/dL High 0.73-1.22 [facility] Comment on above: Order Comment: Speci men Type: BLOOD SPECIMENOrdering Facility: [facility] Address: [address] [place] [address] Performed By: #### 2 4321-2, 80562-6 ####[facility] [id number] [place] [id number] [facility] [place] Creatinine and Glomerular filtration rate.predicted panel (S/P/Bld) 59 mL/min/1.73m??? Low >=60 [facility] Comment on above: Order Comment: Sahil harper Type: BLOOD SPECIMENOrdering Facility: [facility] Address: [address] [place] [address] Result Comment: Autumn mated Glomerular Filtration Rate (eGFR) is calculated using the 2020 CKD-EPI creatinine equation. This equation utilizes serum creatinine, sex, and age as parameters. The creatinine assay has traceable calibration to isotope dilution-mass spectrometry. Refer to KDIGO guidelines for clinical interpretation. In patients with unstable renal function, e.g. those with acute kidney injury, the eGFR may not accurately reflect actual GFR. Performed By: #### 2 4321-2, 93900-2 ####[facility] [id number] [place] [address] [place] Glucose [Mass/Vol] 117 mg/dL High 74-99 [facility] Comment on above: Order Comment: Sahil harper Type: BLOOD SPECIMENOrdering Facility: [facility] Address: [address] [place] [address] Result Comment: The [place] Diabetes Association (ADA) provides guidance for cutoff values for fasting glucose and random glucose. The ADA defines fasting as no caloric intake for at least 8 hours. Fasting plasma glucose results between 100 to 125 mg/dL indicate increased risk for diabetes (prediabetes).Fasting plasma glucose results greater than or equal to 126 mg/dL meet the criteria for diagnosis of diabetes. In the absence of unequivocal hyperglycemia, results should be confirmed by repeat testing. In a patient with classic symptoms of hyperglycemia or hyperglycemic crisis, random plasma glucose results greater than or equal to 200 mg/dL meet the criteria for diagnosis of diabetes.Reference: Standards of Medical Care in Diabetes 2016, [place] Diabetes Association. Diabetes Care. 2016.39(Suppl 1). Performed By: #### 2 4321-2, 79070-4 ####[facility] LABORATORYCLIA [id number] [place] [address] [place] Potassium [Moles/Vol] 3.8 mmol/L Normal 3.7-5.1 [facility] Comment on above: Order Comment: Speci men Type: BLOOD SPECIMENOrdering Facility: [facility] Address: [address] [place] [address] Performed By: #### 2 4321-2, 44776-2 ####[facility] LABORATORYCLIA [id number] [address] [place] Sodium [Moles/Vol] 127 mmol/L Low 136-144 [facility] Comment on above: Order Comment: Speci men Type: BLOOD SPECIMENOrdering Facility: [facility] Address: [address] [place] [address] Performed By: #### 2 4321-2, 69756-9 ####[facility] LABORATORYCLIA [id number] [address] STATES OF [facility] Urea nitrogen [Mass/Vol] 48 mg/dL High 9-24 [facility] Comment on above: Order Comment: Speci men Type: BLOOD SPECIMENOrdering Facility: [facility] Address: [address] [place] [address] Performed By: #### 2 4321-2, 54339-0 ####[facility]ORATORYCLIA [id number] [address] [place] CBC panel Auto (Bld)on 04-22 Erythrocyte distribution width (RBC) [Ratio] 17.9 % High 11.5-15.0 [facility] Comment on above: Order Comment: Speci men Type: BLOOD SPECIMENOrdering Facility: [facility] Address: [address] [place] [address] Performed By: #### 5 8410-2 ####[facility]ORATORYCLIA [id number] [address] [place] Hematocrit (Bld) [Volume fraction] 28.9 % Low 39.0-51.0 [facility] Comment on above: Order Comment: Speci men Type: BLOOD SPECIMENOrdering Facility: [facility] Address: [address] [place] [address] Performed By: #### 5 8410-2 ####[facility]ORATORYCLIA [id number] [address] Hemoglobin (Bld) [Mass/Vol] 9.2 g/dL Low 13.0-17.0 [facility] Comment on above: Order Comment: Speci men Type: BLOOD SPECIMENOrdering Facility: [facility] Address: [address] [place] [address] Performed By: #### 5 8410-2 ####[facility]ORATORYCLIA [id number] [address] MCH (RBC) [Entitic mass] 35.8 pg High 26.0-34.0 [facility] Comment on above: Order Comment: Speci men Type: BLOOD SPECIMENOrdering Facility: [facility] Address: [address] [place] [address] Performed By: #### 5 8410-2 ####[facility]ORATORYCLIA [id number] [address] MCHC (RBC) [Mass/Vol] 31.8 g/dL Normal 30.5-36.0 [facility] Comment on above: Order Comment: Speci men Type: BLOOD SPECIMENOrdering Facility: [facility] Address: [address] [place] [address] Performed By: #### 5 8410-2 ####[facility]ORATORYCLIA [id number] [address] MCV (RBC) [Entitic vol] 112.5 fL High 80.0-100.0 [facility] Comment on above: Order Comment: Speci men Type: BLOOD SPECIMENOrdering Facility: [facility] Address: [address] [place] [address] Performed By: #### 5 8410-2 ####[facility]ORATORYCLIA [id number] [place] [address] [place] Nucleated RBC (Bld) [#/Vol] 10*3/uL Normal <0.01 [facility] Comment on above: Order Comment: Speci men Type: BLOOD SPECIMENOrdering Facility: [facility] Address: [address] [place] [address] Performed By: #### 5 8410-2 ####[facility]ATORYCLIA [id number] [address] [place] Platelet mean volume (Bld) [Entitic vol] 9.6 fL Normal 9.0-12.7 [facility] Comment on above: Order Comment: Speci men Type: BLOOD SPECIMENOrdering Facility: [facility] Address: [address] [place] [address] Performed By: #### 5 8410-2 ####[facility]ORATORYCLIA [id number] [address] OF [place] Platelets (Bld) [#/Vol] 110 10*3/uL Low 150-400 [facility] Comment on above: Order Comment: Speci men Type: BLOOD SPECIMENOrdering Facility: [facility] Address: [address] [place] [address] Performed By: #### 5 8410-2 ####[facility]ATORYCLIA [id number] [address] [place] RBC (Bld) [#/Vol] 2.57 10*6/uL Low 4.20-6.00 [facility] Comment on above: Order Comment: Speci men Type: BLOOD SPECIMENOrdering Facility: [facility] Address: [address] [place] [address] Performed By: #### 5 8410-2 ####[facility]ORATORYCLIA [id number] [address] [place] WBC (Bld) [#/Vol] 11.09 10*3/uL High 3.70-11.00 [facility] Comment on above: Order Comment: Speci men Type: BLOOD SPECIMENOrdering Facility: [facility] Address: [address] [place] [address] Performed By: #### 5 8410-2 ####[facility]ORATORYCLIA [id number] [address] OF [facility] CONSULT PROGon 04-22-2025 CONSULT PROG Normal [facility] Hepatic function 2000 panelo n 04-22-2025 Albumin [Mass/Vol] 3.4 g/dL Low 3.9-4.9 [facility] Comment on above: Order Comment: Speci men Type: BLOOD SPECIMENOrdering Facility: [facility] Address: [address] [place] [address] Performed By: #### 2 4321-2, 71456-0 ####[facility]ORATORYCLIA [id number] [address] [place] ALP [Catalytic activity/Vol] 246 U/L High 38-113 [facility] Comment on above: Order Comment: Speci men Type: BLOOD SPECIMENOrdering Facility: [facility] Address: [address] [place] [address] Performed By: #### 2 432-2, 51408-7 ####[facility]ORATORYCLIA [id number] [address] [place] ALT With P-5'-P [Catalytic activity/Vol] 57 U/L High 10-54 [facility] Comment on above: Order Comment: Speci men Type: BLOOD SPECIMENOrdering Facility: [facility] Address: [address] [place] [address] Performed By: #### 2 4320-2, 91170-1 ####[facility]ORATORYCLIA [id number] [address] [place] AST With P-5'-P [Catalytic activity/Vol] 109 U/L High 14-40 [facility] Comment on above: Order Comment: Speci men Type: BLOOD SPECIMENOrdering Facility: [facility] Address: [address] [place] [address] Performed By: #### 2 432-2, 20665-5 ####[facility]ORATORYCLIA [id number] [address] OF [facility] Bilirubin [Mass/Vol] 10.4 mg/dL High 0.2-1.3 [facility] Comment on above: Order Comment: Sahil harper Type: BLOOD SPECIMENOrdering Facility: [facility] Address: [address] [place] [address] Performed By: #### 2 4321-2, 69869-9 ####[facility]ORATORYCLIA [id number] [address] Bilirubin.conjugated [Mass/Vol] 5.0 mg/dL High <0.3 [facility] Comment on above: Order Comment: Sahil harper Type: BLOOD SPECIMENOrdering Facility: [facility] Address: [address] [place] [address] Performed By: #### 2 4321-2, 69128-8 ####[facility]ATORYCLIA [id number] [address] Protein [Mass/Vol] 6.5 g/dL Normal 6.3-8.0 [facility] Comment on above: Order Comment: Sahil harper Type: BLOOD SPECIMENOrdering Facility: [facility] Address: [address] [place] [address] Performed By: #### 2 4321-2, 33140-3 ####[facility]ORATORYCLIA [id number] [address] PT panel Coag (PPP)on 2024 INR Coag (PPP) [Relative time] 1.5 {INR} High 0.9-1.3 [facility] Comment on above: Order Comment: Sahil harper Type: BLOOD SPECIMENOrdering Facility: [facility] Address: [address] [place] [address] Result Comment: Erum min K Antagonist (VKA) Therapeutic Range: INR 2 to 3 (Target INR of 2.5)Note: For patients treated with VKA drugs, such as warfarin, the [place] [employer] 2012 Guideline recommends a therapeutic INR range of 2 to 3 (target INR of 2.5). This recommendation includes high-risk patients with antiphospholipid syndrome with previous arterial or venous thromboembolism, current-generation mechanical or bioprosthetic aortic heart valve replacement.Note: Patients with mechanical aortic valve replacement and additional risk factors for thromboembolic events (atrial fibrillation, previous thromboembolism, LV dysfunction, hypercoagulable conditions) or an older generation mechanical AVR (i.e., ball in-Cage) or any mechanical MVR should have a INR therapeutic range of 2.5 to 3.5 (target INR of 3).Alpa GH, et al. Chest 2012, 141:7S-47SNishjero RA, et al. [facility] 2017, 70: 252-289 Performed By: #### 3 4528-0 ####[facility]ORATORYCLIA [id number] [place] [address] [place] PT Coag (PPP) [Time] 15.9 s High 9.7-13.0 [facility] Comment on above: Order Comment: Sahil harper Type: BLOOD SPECIMENOrdering Facility: [facility] Address: [address] [place] [address] Performed By: #### 3 4528-0 ####[facility]ORATORYCLIA [id number] [address] [place] THERAPY NTon 04-22-2025 THERAPY NT Normal [facility] XR CHEST 1V FRONTALon 2024 XR CHEST 1V FRONTAL Normal [facility] Basic metabolic 2000 panelon 04-21-2025 Anion gap [Moles/Vol] 10 mmol/L Normal 8-15 [facility] Comment on above: Order Comment: Sahil harper Type: BLOOD SPECIMENOrdering Facility: [facility] Address: [address] [place] [id number] Performed By: #### 2 4321-2 ####[facility]ORATORYCLIA [id number] [address] [place] Calcium [Mass/Vol] 8.7 mg/dL Normal 8.5-10.2 [facility] Comment on above: Order Comment: Sahil harper Type: BLOOD SPECIMENOrdering Facility: [facility] Address: [address] [place] [address] Performed By: #### 2 4321-2 ####[facility]ORATORYCLIA [id number] [address] STATES OF [facility] Chloride [Moles/Vol] 91 mmol/L Low 98-107 [facility] Comment on above: Order Comment: Speci men Type: BLOOD SPECIMENOrdering Facility: [facility] Address: [address] [place] [address] Performed By: #### 2 4321-2 ####[facility]ORATORYCLIA [id number] [address] [place] CO2 [Moles/Vol] 26 mmol/L Normal 22-30 [facility] Comment on above: Order Comment: Speci men Type: BLOOD SPECIMENOrdering Facility: [facility] Address: [address] [place] [address] Performed By: #### 2 4321-2 ####[facility]ORATORYCLIA [id number] [address] OF [facility] Creatinine [Mass/Vol] 1.33 mg/dL High 0.73-1.22 [facility] Comment on above: Order Comment: Speci men Type: BLOOD SPECIMENOrdering Facility: [facility] Address: [address] [place] [address] Performed By: #### 2 4321-2 ####[facility]ORATORYCLIA [id number] [address] Creatinine and Glomerular filtration rate.predicted panel (S/P/Bld) 64 mL/min/1.73m??? Normal >=60 [facility] Comment on above: Order Comment: Speci men Type: BLOOD SPECIMENOrdering Facility: [facility] Address: [address] [place] [address] Result Comment: Autumn mated Glomerular Filtration Rate (eGFR) is calculated using the 2020 CKD-EPI creatinine equation. This equation utilizes serum creatinine, sex, and age as parameters. The creatinine assay has traceable calibration to isotope dilution-mass spectrometry. Refer to KDIGO guidelines for clinical interpretation. In patients with unstable renal function, e.g. those with acute kidney injury, the eGFR may not accurately reflect actual GFR. Performed By: #### 2 4321-2 ####[facility]ORATORYCLIA [id number] [place] [address] [place] Glucose [Mass/Vol] 126 mg/dL High 74-99 [facility] Comment on above: Order Comment: Sahil leroy Type: BLOOD SPECIMENOrdering Facility: [facility] Address: [address] [place] [address] Result Comment: The [place] Diabetes Association (ADA) provides guidance for cutoff values for fasting glucose and random glucose. The ADA defines fasting as no caloric intake for at least 8 hours. Fasting plasma glucose results between 100 to 125 mg/dL indicate increased risk for diabetes (prediabetes).Fasting plasma glucose results greater than or equal to 126 mg/dL meet the criteria for diagnosis of diabetes. In the absence of unequivocal hyperglycemia, results should be confirmed by repeat testing. In a patient with classic symptoms of hyperglycemia or hyperglycemic crisis, random plasma glucose results greater than or equal to 200 mg/dL meet the criteria for diagnosis of diabetes.Reference: Standards of Medical Care in Diabetes 2016, [place] [employer]. Diabetes Care. 2016.39(Suppl 1). Performed By: #### 2 4321-2 ####[facility]ORATORYCLIA [id number] [place] [address] [place] Potassium [Moles/Vol] 4.0 mmol/L Normal 3.7-5.1 [facility] Comment on above: Order Comment: Sahil harper Type: BLOOD SPECIMENOrdering Facility: [facility] Address: [address] [place] [address] Performed By: #### 2 4321-2 ####[facility] LABORATORYCLIA [id number] [place] [id number] [place] Sodium [Moles/Vol] 127 mmol/L Low 136-144 [facility] Comment on above: Order Comment: Sahil harper Type: BLOOD SPECIMENOrdering Facility: [facility] Address: [address] [place], [place] [address] Performed By: #### 2 4321-2 ####[facility]ORATORYCLIA [id number] [place] [id number] [place] Urea nitrogen [Mass/Vol] 44 mg/dL High 9-24 [facility] Comment on above: Order Comment: Speci men Type: BLOOD SPECIMENOrdering Facility: [facility] Address: [address] [place] [address] Performed By: #### 2 4321-2 ####[facility] LABORATORYCLIA [id number] [place] [id number] [place] CASE MANAGEMon 04-21-2025 CASE MANAGEM Normal [facility] CBC panel Auto (Bld)on 04-21 Erythrocyte distribution width (RBC) [Ratio] 18.9 % High 11.5-15.0 [facility] Comment on above: Order Comment: Speci men Type: BLOOD SPECIMENOrdering Facility: [facility] Address: [address] [place] [address] Performed By: #### 5 8410-2 ####[facility]ORATORYCLIA [id number] [address] [place] Hematocrit (Bld) [Volume fraction] 26.5 % Low 39.0-51.0 [facility] Comment on above: Order Comment: Speci men Type: BLOOD SPECIMENOrdering Facility: [facility] Address: [address] [place] [address] Performed By: #### 5 8410-2 ####[facility]ORATORYCLIA [id number] [place] [address] [place] Hemoglobin (Bld) [Mass/Vol] 8.5 g/dL Low 13.0-17.0 [facility] Comment on above: Order Comment: Speci men Type: BLOOD SPECIMENOrdering Facility: [facility] Address: [address] [place] [address] Performed By: #### 5 8410-2 ####[facility]ORATORYCLIA [id number] [place] [address] [place] MCH (RBC) [Entitic mass] 36.0 pg High 26.0-34.0 [facility] Comment on above: Order Comment: Speci men Type: BLOOD SPECIMENOrdering Facility: [facility] Address: [address] [place] [address] Performed By: #### 5 8410-2 ####[facility]ORATORYCLIA [id number] [address] MCHC (RBC) [Mass/Vol] 32.1 g/dL Normal 30.5-36.0 [facility] Comment on above: Order Comment: Speci men Type: BLOOD SPECIMENOrdering Facility: [facility] Address: [address] [place] [address] Performed By: #### 5 8410-2 ####[facility]ORATORYCLIA [id number] [address] MCV (RBC) [Entitic vol] 112.3 fL High 80.0-100.0 [facility] Comment on above: Order Comment: Speci men Type: BLOOD SPECIMENOrdering Facility: [facility] Address: [address] [place] [address] Performed By: #### 5 8410-2 ####[facility]ORATORYCLIA [id number] [address] Nucleated RBC (Bld) [#/Vol] 10*3/uL Normal <0.01 [facility] Comment on above: Order Comment: Speci men Type: BLOOD SPECIMENOrdering Facility: [facility] Address: [address] [place] [address] Performed By: #### 5 8410-2 ####[facility]ORATORYCLIA [id number] [address] Platelet mean volume (Bld) [Entitic vol] 10.0 fL Normal 9.0-12.7 [facility] Comment on above: Order Comment: Speci men Type: BLOOD SPECIMENOrdering Facility: [facility] Address: [address] [place] [address] Performed By: #### 5 8410-2 ####[facility]ORATORYCLIA [id number] [address] [facility] Platelets (Bld) [#/Vol] 82 10*3/uL Low 150-400 [facility] Comment on above: Order Comment: Virgilioi leroy Type: BLOOD SPECIMENOrdering Facility: [facility] Address: [address] [place] [address] Performed By: #### 5 8410-2 ####[facility]ATORYCLIA [id number] [address] [place] RBC (Bld) [#/Vol] 2.36 10*6/uL Low 4.20-6.00 [facility] Comment on above: Order Comment: Sahil harper Type: BLOOD SPECIMENOrdering Facility: [facility] Address: [address] [place] [address] Performed By: #### 5 8410-2 ####[facility]ORATORYCLIA [id number] [address] WBC (Bld) [#/Vol] 7.98 10*3/uL Normal 3.70-11.00 [facility] Comment on above: Order Comment: Sahil harper Type: BLOOD SPECIMENOrdering Facility: [facility] Address: [address] [place] [address] Performed By: #### 5 8410-2 ####[facility]ORATORYCLIA [id number] [address] [place] NUTRITIONon 04-21-2025 NUTRITION Normal [facility] PT panel Coag (PPP)on 2024 INR Coag (PPP) [Relative time] 1.6 {INR} High 0.9-1.3 [facility] Comment on above: Order Comment: Virgilioi leroy Type: BLOOD SPECIMENOrdering Facility: [facility] Address: [address] [place] [address] Result Comment: Erum min K Antagonist (VKA) Therapeutic Range: INR 2 to 3 (Target INR of 2.5)Note: For patients treated with VKA drugs, such as warfarin, the [place] [employer] 2012 Guideline recommends a therapeutic INR range of 2 to 3 (target INR of 2.5). This recommendation includes high-risk patients with antiphospholipid syndrome with previous arterial or venous thromboembolism, current-generation mechanical or bioprosthetic aortic heart valve replacement.Note: Patients with mechanical aortic valve replacement and additional risk factors for thromboembolic events (atrial fibrillation, previous thromboembolism, LV dysfunction, hypercoagulable conditions) or an older generation mechanical AVR (i.e., ball in-Cage) or any mechanical MVR should have a INR therapeutic range of 2.5 to 3.5 (target INR of 3).Alpa GH, et al. Chest 2012, 141:7S-47SNishjero RA, et al. [facility] 2017, 70: 252-289 Performed By: #### 3 4528-0 ####[facility] LABORATORYCLIA [id number] [place] [address] [place] PT Coag (PPP) [Time] 16.9 s High 9.7-13.0 [facility] Comment on above: Order Comment: Sahil harper Type: BLOOD SPECIMENOrdering Facility: [facility] Address: [address] [place] [address] Performed By: #### 3 4528-0 ####[facility] LABORATORYCLIA [id number] [place] [id number] [place] US ASCITES SURVEYon 04-21-20 25 US ASCITES SURVEY Normal [facility] XR CHEST 1V FRONTALon 2024 XR CHEST 1V FRONTAL Normal [facility] Basic metabolic 2000 panelon 04-20-2025 Anion gap [Moles/Vol] 13 mmol/L Normal 8-15 [facility] Comment on above: Order Comment: Sahil harper Type: BLOOD SPECIMENOrdering Facility: [facility] Address: [address] [id number] Performed By: #### 2 4321-2 ####[facility] LABORATORYCLIA [id number] [address] [place] Calcium [Mass/Vol] 8.6 mg/dL Normal 8.5-10.2 [facility] Comment on above: Order Comment: Sahil harper Type: BLOOD SPECIMENOrdering Facility: [facility] Address: [address] [id number] Performed By: #### 2 4321-2 ####[facility]ORATORYCLIA [id number] [address] [place] Chloride [Moles/Vol] 91 mmol/L Low 98-107 [facility] Comment on above: Order Comment: Speci men Type: BLOOD SPECIMENOrdering Facility: [facility] Address: [address] [place] [address] Performed By: #### 2 4321-2 ####[facility]ORATORYCLIA [id number] [address] [place] CO2 [Moles/Vol] 23 mmol/L Normal 22-30 [facility] Comment on above: Order Comment: Speci men Type: BLOOD SPECIMENOrdering Facility: [facility] Address: [address] [place] [address] Performed By: #### 2 4321-2 ####[facility]ORATORYCLIA [id number] [address] Creatinine [Mass/Vol] 1.31 mg/dL High 0.73-1.22 [facility] Comment on above: Order Comment: Speci men Type: BLOOD SPECIMENOrdering Facility: [facility] Address: [address] [place] [address] Performed By: #### 2 4321-2 ####[facility]ORATORYCLIA [id number] [address] Creatinine and Glomerular filtration rate.predicted panel (S/P/Bld) 65 mL/min/1.73m??? Normal >=60 [facility] Comment on above: Order Comment: Speci men Type: BLOOD SPECIMENOrdering Facility: [facility] Address: [address] [place] [address] Result Comment: Autumn mated Glomerular Filtration Rate (eGFR) is calculated using the 2020 CKD-EPI creatinine equation. This equation utilizes serum creatinine, sex, and age as parameters. The creatinine assay has traceable calibration to isotope dilution-mass spectrometry. Refer to KDIGO guidelines for clinical interpretation. In patients with unstable renal function, e.g. those with acute kidney injury, the eGFR may not accurately reflect actual GFR. Performed By: #### 2 4321-2 ####[facility] LABORATORYCLIA [id number] [place] [address] [place] Glucose [Mass/Vol] 127 mg/dL High 74-99 [facility] Comment on above: Order Comment: Sahil leroy Type: BLOOD SPECIMENOrdering Facility: [facility] Address: [address] [place] [address] Result Comment: The [place] Diabetes Association (ADA) provides guidance for cutoff values for fasting glucose and random glucose. The ADA defines fasting as no caloric intake for at least 8 hours. Fasting plasma glucose results between 100 to 125 mg/dL indicate increased risk for diabetes (prediabetes).Fasting plasma glucose results greater than or equal to 126 mg/dL meet the criteria for diagnosis of diabetes. In the absence of unequivocal hyperglycemia, results should be confirmed by repeat testing. In a patient with classic symptoms of hyperglycemia or hyperglycemic crisis, random plasma glucose results greater than or equal to 200 mg/dL meet the criteria for diagnosis of diabetes.Reference: Standards of Medical Care in Diabetes 2016, [place] Diabetes Association. Diabetes Care. 2016.39(Suppl 1). Performed By: #### 2 4321-2 ####[facility]ORATORYCLIA [id number] [place] [address] [place] Potassium [Moles/Vol] 4.3 mmol/L Normal 3.7-5.1 [facility] Comment on above: Order Comment: Sahil harper Type: BLOOD SPECIMENOrdering Facility: [facility] Address: [address] [place] [address] Performed By: #### 2 4321-2 ####[facility] LABORATORYCLIA [id number] [place] [id number] [place] Sodium [Moles/Vol] 127 mmol/L Low 136-144 [facility] Comment on above: Order Comment: Sahil leroy Type: BLOOD SPECIMENOrdering Facility: [facility] Address: [address] [place] [address] Performed By: #### 2 4321-2 ####[facility]ORATORYCLIA [id number] [address] [place] Urea nitrogen [Mass/Vol] 37 mg/dL High 9-24 [facility] Comment on above: Order Comment: Speci men Type: BLOOD SPECIMENOrdering Facility: [facility] Address: [address] [place] [address] Performed By: #### 2 4321-2 ####[facility]ORATORYCLIA [id number] [address] [place] CBC panel Auto (Bld)on 04-20 Erythrocyte distribution width (RBC) [Ratio] 19.8 % High 11.5-15.0 [facility] Comment on above: Order Comment: Speci men Type: BLOOD SPECIMENOrdering Facility: [facility] Address: [address] [place] [address] Performed By: #### 5 8410-2 ####[facility]ORATORYCLIA [id number] [address] [place] Hematocrit (Bld) [Volume fraction] 25.5 % Low 39.0-51.0 [facility] Comment on above: Order Comment: Speci men Type: BLOOD SPECIMENOrdering Facility: [facility] Address: [address] [place] [address] Performed By: #### 5 8410-2 ####[facility]ORATORYCLIA [id number] [address] [place] Hemoglobin (Bld) [Mass/Vol] 8.2 g/dL Low 13.0-17.0 [facility] Comment on above: Order Comment: Speci men Type: BLOOD SPECIMENOrdering Facility: [facility] Address: [address] [place] [address] Performed By: #### 5 8410-2 ####[facility]ORATORYCLIA [id number] [address] [place] MCH (RBC) [Entitic mass] 35.5 pg High 26.0-34.0 [facility] Comment on above: Order Comment: Speci men Type: BLOOD SPECIMENOrdering Facility: [facility] Address: [address] [place] [address] Performed By: #### 5 8410-2 ####[facility]ORATORYCLIA [id number] [address] MCHC (RBC) [Mass/Vol] 32.2 g/dL Normal 30.5-36.0 [facility] Comment on above: Order Comment: Speci men Type: BLOOD SPECIMENOrdering Facility: [facility] Address: [address] [place] [address] Performed By: #### 5 8410-2 ####[facility]ORATORYCLIA [id number] [address] MCV (RBC) [Entitic vol] 110.4 fL High 80.0-100.0 [facility] Comment on above: Order Comment: Speci men Type: BLOOD SPECIMENOrdering Facility: [facility] Address: [address] [place] [address] Performed By: #### 5 8410-2 ####[facility]ORATORYCLIA [id number] [address] Nucleated RBC (Bld) [#/Vol] 10*3/uL Normal <0.01 [facility] Comment on above: Order Comment: Speci men Type: BLOOD SPECIMENOrdering Facility: [facility] Address: [address] [place] [address] Performed By: #### 5 8410-2 ####[facility]ORATORYCLIA [id number] [address] Platelet mean volume (Bld) [Entitic vol] 10.3 fL Normal 9.0-12.7 [facility] Comment on above: Order Comment: Speci men Type: BLOOD SPECIMENOrdering Facility: [facility] Address: [address] [place] [address] Performed By: #### 5 8410-2 ####[facility]ORATORYCLIA [id number] [address] Platelets (Bld) [#/Vol] 88 10*3/uL Low 150-400 [facility] Comment on above: Order Comment: Virgilioi leroy Type: BLOOD SPECIMENOrdering Facility: [facility] Address: [address] [place] [address] Performed By: #### 5 8410-2 ####[facility]ORATORYCLIA [id number] [place] [address] [place] RBC (Bld) [#/Vol] 2.31 10*6/uL Low 4.20-6.00 [facility] Comment on above: Order Comment: Virgilioi men Type: BLOOD SPECIMENOrdering Facility: [facility] Address: [address] [place] [address] Performed By: #### 5 8410-2 ####[facility]ORATORYCLIA [id number] [address] STATES OF [facility] WBC (Bld) [#/Vol] 12.00 10*3/uL High 3.70-11.00 [facility] Comment on above: Order Comment: Speci men Type: BLOOD SPECIMENOrdering Facility: [facility] Address: [address] [place] [address] Performed By: #### 5 8410-2 ####[facility]ORATORYCLIA [id number] [address] [place] NUTRITIONon 04-20-2025 NUTRITION Normal [facility] PT panel Coag (PPP)on 2024 INR Coag (PPP) [Relative time] 1.7 {INR} High 0.9-1.3 [facility] Comment on above: Order Comment: Sahil leroy Type: BLOOD SPECIMENOrdering Facility: [facility] Address: [address] [place] [address] Result Comment: Erum min K Antagonist (VKA) Therapeutic Range: INR 2 to 3 (Target INR of 2.5)Note: For patients treated with VKA drugs, such as warfarin, the [place] [employer] 2012 Guideline recommends a therapeutic INR range of 2 to 3 (target INR of 2.5). This recommendation includes high-risk patients with antiphospholipid syndrome with previous arterial or venous thromboembolism, current-generation mechanical or bioprosthetic aortic heart valve replacement.Note: Patients with mechanical aortic valve replacement and additional risk factors for thromboembolic events (atrial fibrillation, previous thromboembolism, LV dysfunction, hypercoagulable conditions) or an older generation mechanical AVR (i.e., ball in-Cage) or any mechanical MVR should have a INR therapeutic range of 2.5 to 3.5 (target INR of 3).Alpa GH, et al. Chest 2012, 141:7S-47SDario RA, et al. [facility] 2017, 70: 252-289 Performed By: #### 3 4528-0 ####[facility]ORATORYCLIA [id number] [address] OF [facility] PT Coag (PPP) [Time] 18.4 s High 9.7-13.0 [facility] Comment on above: Order Comment: Specsabino harper Type: BLOOD SPECIMENOrdering Facility: [facility] Address: [address] [place] [address] Performed By: #### 3 4528-0 ####[facility]ORATORYCLIA [id number] [address] TEG WITH HEPARIN NEUTRALIZAT IONon 04-20-2025 CITRATED FUNCTIONAL FIBRINOGEN W HAPARINASE MAXIMUM AMPLITUDE 14.4 mm Low 15-34 [facility] Comment on above: Order Comment: Sahil harper Type: BLOOD SPECIMENOrdering Facility: [facility] Address: [address] [place] [address] Performed By: #### T EGHN ####[facility] LABORATORYCLIA [id number] [address] CITRATED KAOLIN W HEPARINASE CLOT LYSIS AT 30 MINS 2.2 % Normal 0.0-3.2 [facility] Comment on above: Order Comment: Sahil harper Type: BLOOD SPECIMENOrdering Facility: [facility] Address: [address] [place] [address] Performed By: #### T EGHN ####[facility]ORATORYCLIA [id number] [address] CITRATED RAPID TEG W HEPARINASE MAXIMUM AMPLITUDE 47 mm Low 53-69 [facility] Comment on above: Order Comment: Speci leroy Type: BLOOD SPECIMENOrdering Facility: [facility] Address: [address] [place] [address] Performed By: #### T EGHN ####[facility]ORATORYCLIA [id number] [address] OF [facility] Clotting time after addition of heparinase TEG (Bld) 7.0 minutes Normal 4.3-8.3 [facility] Comment on above: Order Comment: Speci leroy Type: BLOOD SPECIMENOrdering Facility: [facility] Address: [address] [place] [address] Performed By: #### T EGHN ####[facility]ORATORYCLIA [id number] [address] Clotting time.extrinsic coagulation system activated Rotational TEG (Bld) 7.0 minutes Normal 4.6-9.1 [facility] Comment on above: Order Comment: Speci leroy Type: BLOOD SPECIMENOrdering Facility: [facility] Address: [address] [place] [address] Performed By: #### T EGHN ####[facility]ORATORYCLIA [id number] [address] OF [facility] Maximum clot firmness TEG (Bld) [Length] 44.9 mm Low 52.0-69.0 [facility] Comment on above: Order Comment: Virgilioi leroy Type: BLOOD SPECIMENOrdering Facility: [facility] Address: [address] [place] [address] Performed By: #### T EGHN ####[facility]ORATORYCLIA [id number] [address] OF [facility] THROMBOGRAPH INTERP Normal [facility] Comment on above: Order Comment: Sahil harper Type: BLOOD SPECIMENOrdering Facility: [facility] Address: [address] [place] [address] Result Comment: A th romboelastograph (TEG) study was performed using citrate-anticoagulated whole blood treated with and without heparinase to neutralize a heparin effect.The R value, a measure of coagulation function, is within the normal range. This indicates normal coagulation function. The fibrinogen contribution clot formation is decreased due to decreased fibrinogen concentration or dysfunction.The Ly30, a measure of fibrinolysis, is normal. This is indicative of normal fibrinolytic function.The Maximal Amplitude (MA), a measure of platelet function, is decreased. A decreased MA can be seen with increased anti-platelet drug effect, thrombocytopenia, or platelet dysfunction.Viscoelastic testing is not intended for the monitoring of anticoagulation or antiplatelet medications or the diagnosis and/or management of platelet disorders and/or coagulopathies but may be useful for guiding blood product utilization in emergency and urgent (OR) circumstances when routine coagulation and cell blood counts are not available in a timely manner. Performed By: #### T EGHN ####[facility]ORATORYCLIA [id number] [address] [place] THERAPY NTon 04-20-2025 THERAPY NT Normal [facility] XR CHEST 1V FRONTALon 2024 XR CHEST 1V FRONTAL Normal [facility] XR CHEST 1V FRONTAL Normal [facility] ALLIED HEALTHon 04-19-2025 ALLIED HEALTH Normal [facility] Basic metabolic 2000 panelon 04-19-2025 Anion gap [Moles/Vol] 11 mmol/L Normal 8-15 [facility] Comment on above: Order Comment: Speci men Type: BLOOD SPECIMENOrdering Facility: [facility] Address: [address] [place] [address] Performed By: #### 2 4321-2 ####[facility]ORATORYCLIA [id number] [place] [address] [place] Calcium [Mass/Vol] 8.3 mg/dL Low 8.5-10.2 [facility] Comment on above: Order Comment: Speci leroy Type: BLOOD SPECIMENOrdering Facility: [facility] Address: [address] [place] [address] Performed By: #### 2 4321-2 ####[facility]ORATORYCLIA [id number] [place] [address] [place] Chloride [Moles/Vol] 89 mmol/L Low 98-107 [facility] Comment on above: Order Comment: Speci men Type: BLOOD SPECIMENOrdering Facility: [facility] Address: [address] [place] [address] Performed By: #### 2 4321-2 ####[facility]ORATORYCLIA [id number] [place] [address] [place] CO2 [Moles/Vol] 24 mmol/L Normal 22-30 [facility] Comment on above: Order Comment: Speci men Type: BLOOD SPECIMENOrdering Facility: [facility] Address: [address] [place] [address] Performed By: #### 2 4321-2 ####[facility]ORATORYCLIA [id number] [address] [place] Creatinine [Mass/Vol] 1.26 mg/dL High 0.73-1.22 [facility] Comment on above: Order Comment: Speci men Type: BLOOD SPECIMENOrdering Facility: [facility] Address: [address] [place] [address] Performed By: #### 2 4321-2 ####[facility]ORATORYCLIA [id number] [address] Creatinine and Glomerular filtration rate.predicted panel (S/P/Bld) 68 mL/min/1.73m??? Normal >=60 [facility] Comment on above: Order Comment: Speci men Type: BLOOD SPECIMENOrdering Facility: [facility] Address: [address] [place] [address] Result Comment: Autumn mated Glomerular Filtration Rate (eGFR) is calculated using the 2020 CKD-EPI creatinine equation. This equation utilizes serum creatinine, sex, and age as parameters. The creatinine assay has traceable calibration to isotope dilution-mass spectrometry. Refer to KDIGO guidelines for clinical interpretation. In patients with unstable renal function, e.g. those with acute kidney injury, the eGFR may not accurately reflect actual GFR. Performed By: #### 2 4321-2 ####[facility]ORATORYCLIA [id number] [place] [address] [place] Glucose [Mass/Vol] 135 mg/dL High 74-99 [facility] Comment on above: Order Comment: Speci men Type: BLOOD SPECIMENOrdering Facility: [facility] Address: [address] [place] [address] Result Comment: The [place] Diabetes Association (ADA) provides guidance for cutoff values for fasting glucose and random glucose. The ADA defines fasting as no caloric intake for at least 8 hours. Fasting plasma glucose results between 100 to 125 mg/dL indicate increased risk for diabetes (prediabetes).Fasting plasma glucose results greater than or equal to 126 mg/dL meet the criteria for diagnosis of diabetes. In the absence of unequivocal hyperglycemia, results should be confirmed by repeat testing. In a patient with classic symptoms of hyperglycemia or hyperglycemic crisis, random plasma glucose results greater than or equal to 200 mg/dL meet the criteria for diagnosis of diabetes.Reference: Standards of Medical Care in Diabetes 2016, [place] Diabetes Association. Diabetes Care. 2016.39(Suppl 1). Performed By: #### 2 4321-2 ####[facility]ORATORYCLIA [id number] [place] [address] [place] Potassium [Moles/Vol] 5.0 mmol/L Normal 3.7-5.1 [facility] Comment on above: Order Comment: Sahil leroy Type: BLOOD SPECIMENOrdering Facility: [facility] Address: [address] [place] [address] Performed By: #### 2 4321-2 ####[facility]ORATORYCLIA [id number] [place] [address] [place] Sodium [Moles/Vol] 124 mmol/L Low 136-144 [facility] Comment on above: Order Comment: Speci men Type: BLOOD SPECIMENOrdering Facility: [facility] Address: [address] [place] [address] Performed By: #### 2 4321-2 ####[facility]ORATORYCLIA [id number] [place] [address] [place] Urea nitrogen [Mass/Vol] 33 mg/dL High 9-24 [facility] Comment on above: Order Comment: Virgilioi men Type: BLOOD SPECIMENOrdering Facility: [facility] Address: [address] [place], [place] [address] Performed By: #### 2 4321-2 ####[facility]ORATORYCLIA [id number] [address] CBC panel Auto (Bld)on 04-19 Erythrocyte distribution width (RBC) [Ratio] 20.2 % High 11.5-15.0 [facility] Comment on above: Order Comment: Speci men Type: BLOOD SPECIMENOrdering Facility: [facility] Address: [address] [place] [address] Performed By: #### 5 8410-2 ####[facility]ORATORYCLIA [id number] [address] Hematocrit (Bld) [Volume fraction] 27.0 % Low 39.0-51.0 [facility] Comment on above: Order Comment: Speci men Type: BLOOD SPECIMENOrdering Facility: [facility] Address: [address] [place] [address] Performed By: #### 5 8410-2 ####[facility]ORATORYCLIA [id number] [address] Hemoglobin (Bld) [Mass/Vol] 8.9 g/dL Low 13.0-17.0 [facility] Comment on above: Order Comment: Speci men Type: BLOOD SPECIMENOrdering Facility: [facility] Address: [address] [place] [address] Performed By: #### 5 8410-2 ####[facility]ORATORYCLIA [id number] [address] MCH (RBC) [Entitic mass] 36.8 pg High 26.0-34.0 [facility] Comment on above: Order Comment: Speci men Type: BLOOD SPECIMENOrdering Facility: [facility] Address: [address] [place] [address] Performed By: #### 5 8410-2 ####[facility]ORATORYCLIA [id number] [address] MCHC (RBC) [Mass/Vol] 33.0 g/dL Normal 30.5-36.0 [facility] Comment on above: Order Comment: Speci men Type: BLOOD SPECIMENOrdering Facility: [facility] Address: [address] [place] [address] Performed By: #### 5 8410-2 ####[facility]ORATORYCLIA [id number] [address] MCV (RBC) [Entitic vol] 111.6 fL High 80.0-100.0 [facility] Comment on above: Order Comment: Speci men Type: BLOOD SPECIMENOrdering Facility: [facility] Address: [address] [place] [address] Performed By: #### 5 8410-2 ####[facility]ATORYCLIA [id number] [address] Nucleated RBC (Bld) [#/Vol] 10*3/uL Normal <0.01 [facility] Comment on above: Order Comment: Speci men Type: BLOOD SPECIMENOrdering Facility: [facility] Address: [address] [place] [address] Performed By: #### 5 8410-2 ####[facility]ATORYCLIA [id number] [address] Platelet mean volume (Bld) [Entitic vol] 10.0 fL Normal 9.0-12.7 [facility] Comment on above: Order Comment: Speci men Type: BLOOD SPECIMENOrdering Facility: [facility] Address: [address] [place] [address] Performed By: #### 5 8410-2 ####[facility]ORATORYCLIA [id number] [address] Platelets (Bld) [#/Vol] 91 10*3/uL Low 150-400 [facility] Comment on above: Order Comment: Speci men Type: BLOOD SPECIMENOrdering Facility: [facility] Address: [address] [place] [address] Performed By: #### 5 8410-2 ####[facility]ORATORYCLIA [id number] [address] [place] RBC (Bld) [#/Vol] 2.42 10*6/uL Low 4.20-6.00 [facility] Comment on above: Order Comment: Speci men Type: BLOOD SPECIMENOrdering Facility: [facility] Address: [address] [place] [address] Performed By: #### 5 8410-2 ####[facility]ORATORYCLIA [id number] [address] [place] WBC (Bld) [#/Vol] 17.97 10*3/uL High 3.70-11.00 [facility] Comment on above: Order Comment: Speci men Type: BLOOD SPECIMENOrdering Facility: [facility] Address: [address] [place] [address] Performed By: #### 5 8410-2 ####[facility]ATORYCLIA [id number] [address] Erythrocyte distribution width (RBC) [Ratio] 20.9 % High 11.5-15.0 [facility] Comment on above: Order Comment: Speci men Type: BLOOD SPECIMENOrdering Facility: [facility] Address: [address] [place] [address] Performed By: #### 5 8410-2 ####[facility]ORATORYCLIA [id number] [address] [place] Hematocrit (Bld) [Volume fraction] 28.4 % Low 39.0-51.0 [facility] Comment on above: Order Comment: Speci men Type: BLOOD SPECIMENOrdering Facility: [facility] Address: [address] [place] [address] Performed By: #### 5 8410-2 ####[facility]ATORYCLIA [id number] [address] [place] Hemoglobin (Bld) [Mass/Vol] 9.3 g/dL Low 13.0-17.0 [facility] Comment on above: Order Comment: Speci men Type: BLOOD SPECIMENOrdering Facility: [facility] Address: [address] [place] [address] Performed By: #### 5 8410-2 ####[facility]ORATORYCLIA [id number] [address] MCH (RBC) [Entitic mass] 36.3 pg High 26.0-34.0 [facility] Comment on above: Order Comment: Speci men Type: BLOOD SPECIMENOrdering Facility: [facility] Address: [address] [place] [address] Performed By: #### 5 8410-2 ####[facility]ATORYCLIA [id number] [address] MCHC (RBC) [Mass/Vol] 32.7 g/dL Normal 30.5-36.0 [facility] Comment on above: Order Comment: Speci men Type: BLOOD SPECIMENOrdering Facility: [facility] Address: [address] [place] [address] Performed By: #### 5 8410-2 ####[facility]ATORYCLIA [id number] [address] MCV (RBC) [Entitic vol] 110.9 fL High 80.0-100.0 [facility] Comment on above: Order Comment: Speci men Type: BLOOD SPECIMENOrdering Facility: [facility] Address: [address] [place] [address] Performed By: #### 5 8410-2 ####[facility]ORATORYCLIA [id number] [address] Nucleated RBC (Bld) [#/Vol] 10*3/uL Normal <0.01 [facility] Comment on above: Order Comment: Speci men Type: BLOOD SPECIMENOrdering Facility: [facility] Address: [address] [place] [address] Performed By: #### 5 8410-2 ####[facility] LABORATORYCLIA [id number] [place] [address] [place] Platelet mean volume (Bld) [Entitic vol] 10.2 fL Normal 9.0-12.7 [facility] Comment on above: Order Comment: Speci men Type: BLOOD SPECIMENOrdering Facility: [facility] Address: [address] [place] [address] Performed By: #### 5 8410-2 ####[facility] LABORATORYCLIA [id number] [address] [place] Platelets (Bld) [#/Vol] 94 10*3/uL Low 150-400 [facility] Comment on above: Order Comment: Speci men Type: BLOOD SPECIMENOrdering Facility: [facility] Address: [address] [place] [address] Result Comment: No c lot detected. Performed By: #### 5 8410-2 ####[facility] LABORATORYCLIA [id number] [address] STATES OF [facility] RBC (Bld) [#/Vol] 2.56 10*6/uL Low 4.20-6.00 [facility] Comment on above: Order Comment: Speci men Type: BLOOD SPECIMENOrdering Facility: [facility] Address: [address] [place] [address] Performed By: #### 5 8410-2 ####[facility] LABORATORYCLIA [id number] [address] [place] WBC (Bld) [#/Vol] 16.98 10*3/uL High 3.70-11.00 [facility] Comment on above: Order Comment: Speci men Type: BLOOD SPECIMENOrdering Facility: [facility] Address: [address] [place] [address] Performed By: #### 5 8410-2 ####[facility] LABORATORYCLIA [id number] [address] OF [facility] CONSULTon 04-19-2025 CONSULT Normal [facility] CONSULT PROGon 04-19-2025 CONSULT PROG Normal [facility] Osmolality Uron 04-19-2025 Osmolality (U) [Osmolality] 476 mosm/kg Normal 50-1200 [facility] Comment on above: Order Comment: Speci men Type: URINE SPECIMENOrdering Facility: [facility] Address: [address] [place] [address] Performed By: #### 2 890-2, 15310-4, UUNR, 22879-5, 2695-5 ####[facility]ORATORYCLIA [id number] [address] OF [facility] PT panel Coag (PPP)on 2024 INR Coag (PPP) [Relative time] 1.8 {INR} High 0.9-1.3 [facility] Comment on above: Order Comment: Speci men Type: BLOOD SPECIMENOrdering Facility: [facility] Address: [address] [place] [address] Result Comment: Erum min K Antagonist (VKA) Therapeutic Range: INR 2 to 3 (Target INR of 2.5)Note: For patients treated with VKA drugs, such as warfarin, the [place] [employer] 2012 Guideline recommends a therapeutic INR range of 2 to 3 (target INR of 2.5). This recommendation includes high-risk patients with antiphospholipid syndrome with previous arterial or venous thromboembolism, current-generation mechanical or bioprosthetic aortic heart valve replacement.Note: Patients with mechanical aortic valve replacement and additional risk factors for thromboembolic events (atrial fibrillation, previous thromboembolism, LV dysfunction, hypercoagulable conditions) or an older generation mechanical AVR (i.e., ball in-Cage) or any mechanical MVR should have a INR therapeutic range of 2.5 to 3.5 (target INR of 3).Alpa THOMSON, et al. Chest 2012, 141:7S-47SDario RA, et al. [facility] 2017, 70: 252-289 Performed By: #### 3 4528-0 ####[facility] LABORATORYCLIA [id number] [address] [place] PT Coag (PPP) [Time] 19.2 s High 9.7-13.0 [facility] Comment on above: Order Comment: Speci men Type: BLOOD SPECIMENOrdering Facility: [facility] Address: [address] [place], [place] [address] Performed By: #### 3 4528-0 ####[facility] LABORATORYCLIA [id number] [place] [address] [place] Potassium Unsp time (U) [Mol es/Vol]on 04-19-2025 Potassium (U) [Moles/Vol] 55.0 mmol/L Normal 10.0-160.0 [facility] Comment on above: Order Comment: Speci men Type: URINE SPECIMENOrdering Facility: [facility] Address: [address] [id number] Performed By: #### 2 890-2, 42370-0, [facility], 54464-8, 387-5 ####[facility] LABORATORYCLIA [id number] [place] [id number] [place] [facility] Prot/Creat Uron 04-19-2025 Protein/Creatinine (U) [Mass ratio] 0.11 mg/mg Normal <0.15 [facility] Comment on above: Order Comment: Speci men Type: URINE SPECIMENOrdering Facility: [facility] Address: [address] [place] [address] Result Comment: Adul t Proteinuria Categories:<0.15 mg/mg is considered normal to mildly increased0.15 - 0.50 mg/mg is considered moderately increased>0.50 mg/mg is considered severely increasedKDIGO. (2013). KDIGO 2012 Clinical Practice Guideline for the Evaluation and Management of Chronic Kidney Disease. Official Journal of the International Society of Nephrology, 3(1), 1-150. Performed By: #### 2 890-2, 57144-5, UUNR, 11159-9, 2694-5 ####[facility]ORATORYCLIA [id number] [place] [address] [place] Protein/Creatinine (U) [Mass ratio]on 04-19-2025 Creatinine (U) [Mass/Vol] 152.4 mg/dL Normal 46.8-314.5 [facility] Comment on above: Order Comment: Speci men Type: URINE SPECIMENOrdering Facility: [facility] Address: [address] [id number] Performed By: #### 2 890-2, 19369-4, UUNR, 86140-3, 2694-5 ####[facility]ORATORYCLIA [id number] [address] [facility] Protein (U) [Mass/Vol] 17 mg/dL Normal 0-20 [facility] Comment on above: Order Comment: Speci men Type: URINE SPECIMENOrdering Facility: [facility] Address: [address] [place] [address] Performed By: #### 2 890-2, 98793-3, UUNR, 86021-9, 2694-5 ####[facility] LABORATORYCLIA [id number] [address] [place] Sodium ?Tm Ur-sCncon 025 Sodium Unsp time (U) [Moles/Vol] <20 Normal 14-216 [facility] Comment on above: Order Comment: Speci men Type: URINE SPECIMENOrdering Facility: [facility] Address: [address] [place] [id number] Performed By: #### 2 890-2, 63582-9, UUNR, 78894-4, 2694-5 ####[facility]ORATORYCLIA [id number] [address] THERAPY NTon 04-19-2025 THERAPY NT Normal [facility] UREA NITROGEN, RANDOM URINEo n 04-19-2025 UREA NITROGEN,UR,RAN 673 mg/dL Normal 140-1500 [facility] Comment on above: Order Comment: Speci men Type: URINE SPECIMENOrdering Facility: [facility] Address: [address] [place] [phone] Performed By: #### 2 890-2, 43869-0, UUNR, 88505-6, 2694-5 ####[facility] LABORATORYCLIA [id number] [address] [place] XR CHEST 1V FRONTALon 2024 XR CHEST 1V FRONTAL Normal [facility] BRIEF OP NOTon 04-18-2025 BRIEF OP NOT Normal [facility] Basic metabolic 2000 panelon 04-18-2025 Anion gap [Moles/Vol] 11 mmol/L Normal 8-15 [facility] Comment on above: Order Comment: Speci men Type: BLOOD SPECIMENOrdering Facility: [facility] Address: [address] [place] [address] Performed By: #### 2 4321-2 ####[facility]ORATORYCLIA [id number] [place] [address] [place] Calcium [Mass/Vol] 8.9 mg/dL Normal 8.5-10.2 [facility] Comment on above: Order Comment: Speci men Type: BLOOD SPECIMENOrdering Facility: [facility] Address: [address] [place] [address] Performed By: #### 2 4321-2 ####[facility]ORATORYCLIA [id number] [place] [address] [place] Chloride [Moles/Vol] 93 mmol/L Low 98-107 [facility] Comment on above: Order Comment: Speci men Type: BLOOD SPECIMENOrdering Facility: [facility] Address: [address] [place] [address] Performed By: #### 2 4321-2 ####[facility]ORATORYCLIA [id number] [place] [address] [place] CO2 [Moles/Vol] 25 mmol/L Normal 22-30 [facility] Comment on above: Order Comment: Speci men Type: BLOOD SPECIMENOrdering Facility: [facility] Address: [address] [place] [address] Performed By: #### 2 4321-2 ####[facility]ORATORYCLIA [id number] [place] [address] [place] Creatinine [Mass/Vol] 0.98 mg/dL Normal 0.73-1.22 [facility] Comment on above: Order Comment: Speci men Type: BLOOD SPECIMENOrdering Facility: [facility] Address: [address] [place] [address] Performed By: #### 2 4321-2 ####[facility]ORATORYCLIA [id number] [place] [address] [place] Creatinine and Glomerular filtration rate.predicted panel (S/P/Bld) 92 mL/min/1.73m??? Normal >=60 [facility] Comment on above: Order Comment: Specsabino harper Type: BLOOD SPECIMENOrdering Facility: [facility] Address: [address] [place] [address] Result Comment: Autumn mated Glomerular Filtration Rate (eGFR) is calculated using the 2020 CKD-EPI creatinine equation. This equation utilizes serum creatinine, sex, and age as parameters. The creatinine assay has traceable calibration to isotope dilution-mass spectrometry. Refer to KDIGO guidelines for clinical interpretation. In patients with unstable renal function, e.g. those with acute kidney injury, the eGFR may not accurately reflect actual GFR. Performed By: #### 2 4321-2 ####[facility]ORATORYCLIA [id number] [place] [address] [place] Glucose [Mass/Vol] 118 mg/dL High 74-99 [facility] Comment on above: Order Comment: Sahil harper Type: BLOOD SPECIMENOrdering Facility: [facility] Address: [address] [place] [address] Result Comment: The [place] Diabetes Association (ADA) provides guidance for cutoff values for fasting glucose and random glucose. The ADA defines fasting as no caloric intake for at least 8 hours. Fasting plasma glucose results between 100 to 125 mg/dL indicate increased risk for diabetes (prediabetes).Fasting plasma glucose results greater than or equal to 126 mg/dL meet the criteria for diagnosis of diabetes. In the absence of unequivocal hyperglycemia, results should be confirmed by repeat testing. In a patient with classic symptoms of hyperglycemia or hyperglycemic crisis, random plasma glucose results greater than or equal to 200 mg/dL meet the criteria for diagnosis of diabetes.Reference: Standards of Medical Care in Diabetes 2016, [place] Diabetes Association. Diabetes Care. 2016.39(Suppl 1). Performed By: #### 2 4321-2 ####[facility] LABORATORYCLIA [id number] [address] [id number] [place] Potassium [Moles/Vol] 4.5 mmol/L Normal 3.7-5.1 [facility] Comment on above: Order Comment: Speci men Type: BLOOD SPECIMENOrdering Facility: [facility] Address: [address] [place] [address] Performed By: #### 2 4321-2 ####[facility]ORATORYCLIA [id number] [address] [place] Sodium [Moles/Vol] 129 mmol/L Low 136-144 [facility] Comment on above: Order Comment: Speci men Type: BLOOD SPECIMENOrdering Facility: [facility] Address: [address] [place] [address] Performed By: #### 2 4321-2 ####[facility]ORATORYCLIA [id number] [address] [place] Urea nitrogen [Mass/Vol] 30 mg/dL High 9-24 [facility] Comment on above: Order Comment: Speci men Type: BLOOD SPECIMENOrdering Facility: [facility] Address: [address] [place] [address] Performed By: #### 2 4321-2 ####[facility]ORATORYCLIA [id number] [address] [place] CASE MANAGEMon 04-18-2025 CASE MANAGEM Normal [facility] CBC panel Auto (Bld)on 04-18 Erythrocyte distribution width (RBC) [Ratio] 21.1 % High 11.5-15.0 [facility] Comment on above: Order Comment: Speci men Type: BLOOD SPECIMENOrdering Facility: [facility] Address: [address] [place] [address] Performed By: #### 5 8410-2 ####[facility] LABORATORYCLIA [id number] [address] STATES OF [facility] Hematocrit (Bld) [Volume fraction] 27.9 % Low 39.0-51.0 [facility] Comment on above: Order Comment: Speci men Type: BLOOD SPECIMENOrdering Facility: [facility] Address: [address] [place] [address] Performed By: #### 5 8410-2 ####[facility]ORATORYCLIA [id number] [address] OF [facility] Hemoglobin (Bld) [Mass/Vol] 9.1 g/dL Low 13.0-17.0 [facility] Comment on above: Order Comment: Speci men Type: BLOOD SPECIMENOrdering Facility: [facility] Address: [address] [place] [address] Performed By: #### 5 8410-2 ####[facility]ORATORYCLIA [id number] [address] [place] MCH (RBC) [Entitic mass] 36.3 pg High 26.0-34.0 [facility] Comment on above: Order Comment: Speci men Type: BLOOD SPECIMENOrdering Facility: [facility] Address: [address] [place] [address] Performed By: #### 5 8410-2 ####[facility]ORATORYCLIA [id number] [address] MCHC (RBC) [Mass/Vol] 32.6 g/dL Normal 30.5-36.0 [facility] Comment on above: Order Comment: Speci men Type: BLOOD SPECIMENOrdering Facility: [facility] Address: [address] [place] [address] Performed By: #### 5 8410-2 ####[facility]ORATORYCLIA [id number] [address] [place] MCV (RBC) [Entitic vol] 111.2 fL High 80.0-100.0 [facility] Comment on above: Order Comment: Speci men Type: BLOOD SPECIMENOrdering Facility: [facility] Address: [address] [place] [address] Performed By: #### 5 8410-2 ####[facility]ORATORYCLIA [id number] [address] OF [facility] Nucleated RBC (Bld) [#/Vol] 10*3/uL Normal <0.01 [facility] Comment on above: Order Comment: Speci men Type: BLOOD SPECIMENOrdering Facility: [facility] Address: [address] [place] [address] Performed By: #### 5 8410-2 ####[facility]ORATORYCLIA [id number] [address] [place] Platelet mean volume (Bld) [Entitic vol] 10.3 fL Normal 9.0-12.7 [facility] Comment on above: Order Comment: Speci men Type: BLOOD SPECIMENOrdering Facility: [facility] Address: [address] [place] [address] Performed By: #### 5 8410-2 ####[facility]ORATORYCLIA [id number] [address] [place] Platelets (Bld) [#/Vol] 99 10*3/uL Low 150-400 [facility] Comment on above: Order Comment: Speci men Type: BLOOD SPECIMENOrdering Facility: [facility] Address: [address] [place] [address] Performed By: #### 5 8410-2 ####[facility]ORATORYCLIA [id number] [place] [address] [place] RBC (Bld) [#/Vol] 2.51 10*6/uL Low 4.20-6.00 [facility] Comment on above: Order Comment: Speci men Type: BLOOD SPECIMENOrdering Facility: [facility] Address: [address] [place] [address] Performed By: #### 5 8410-2 ####[facility]ORATORYCLIA [id number] [address] [place] WBC (Bld) [#/Vol] 11.60 10*3/uL High 3.70-11.00 [facility] Comment on above: Order Comment: Speci men Type: BLOOD SPECIMENOrdering Facility: [facility] Address: [address] [place] [address] Performed By: #### 5 8410-2 ####[facility]ORATORYCLIA [id number] [address] [place] CONSULTon 04-18-2025 CONSULT Normal [facility] CT CHEST WO IVCONon 04-18-20 CT CHEST WO IVCON Normal [facility] PT panel Coag (PPP)on 2024 INR Coag (PPP) [Relative time] 1.7 {INR} High 0.9-1.3 [facility] Comment on above: Order Comment: Specsabino harper Type: BLOOD SPECIMENOrdering Facility: [facility] Address: [address] [place] [address] Result Comment: Erum min K Antagonist (VKA) Therapeutic Range: INR 2 to 3 (Target INR of 2.5)Note: For patients treated with VKA drugs, such as warfarin, the [place] [employer]icians 2012 Guideline recommends a therapeutic INR range of 2 to 3 (target INR of 2.5). This recommendation includes high-risk patients with antiphospholipid syndrome with previous arterial or venous thromboembolism, current-generation mechanical or bioprosthetic aortic heart valve replacement.Note: Patients with mechanical aortic valve replacement and additional risk factors for thromboembolic events (atrial fibrillation, previous thromboembolism, LV dysfunction, hypercoagulable conditions) or an older generation mechanical AVR (i.e., ball in-Cage) or any mechanical MVR should have a INR therapeutic range of 2.5 to 3.5 (target INR of 3).Alpa THOMSON, et al. Chest 2012, 141:7S-47SDario RA, et al. [facility] 2017, 70: 252-289 Performed By: #### 3 4528-0 ####[facility] LABORATORYCLIA [id number] [place] [id number] [place] PT Coag (PPP) [Time] 17.5 s High 9.7-13.0 [facility] Comment on above: Order Comment: Virgilioi leroy Type: BLOOD SPECIMENOrdering Facility: [facility] Address: [address] [place] [address] Performed By: #### 3 4528-0 ####[facility]ORATORYCLIA [id number] [place] [id number] [place] THERAPY NTon 04-18-2025 THERAPY NT Normal [facility] XR CHEST 1V FRONTALon 2024 XR CHEST 1V FRONTAL Normal [facility] Basic metabolic 2000 panelon 04-17-2025 Anion gap [Moles/Vol] 8 mmol/L Normal 8-15 [facility] Comment on above: Order Comment: Speci men Type: BLOOD SPECIMENOrdering Facility: [facility] Address: [address] [place] [address] Performed By: #### 2 4321-2 ####[facility]ORATORYCLIA [id number] [place] [address] [place] Calcium [Mass/Vol] 8.6 mg/dL Normal 8.5-10.2 [facility] Comment on above: Order Comment: Speci men Type: BLOOD SPECIMENOrdering Facility: [facility] Address: [address] [place] [address] Performed By: #### 2 4321-2 ####[facility]ORATORYCLIA [id number] [place] [address] [place] Chloride [Moles/Vol] 91 mmol/L Low 98-107 [facility] Comment on above: Order Comment: Speci men Type: BLOOD SPECIMENOrdering Facility: [facility] Address: [address] [place] [address] Performed By: #### 2 4321-2 ####[facility]ORATORYCLIA [id number] [place] [address] [place] CO2 [Moles/Vol] 26 mmol/L Normal 22-30 [facility] Comment on above: Order Comment: Speci men Type: BLOOD SPECIMENOrdering Facility: [facility] Address: [address] [place] [address] Performed By: #### 2 4321-2 ####[facility]ORATORYCLIA [id number] [place] [address] [place] Creatinine [Mass/Vol] 0.90 mg/dL Normal 0.73-1.22 [facility] Comment on above: Order Comment: Speci men Type: BLOOD SPECIMENOrdering Facility: [facility] Address: [address] [place] [address] Performed By: #### 2 4321-2 ####[facility] HAUTEIA [id number] [address] [place] Creatinine and Glomerular filtration rate.predicted panel (S/P/Bld) 101 mL/min/1.73m??? Normal >=60 [facility] Comment on above: Order Comment: Sahil men Type: BLOOD SPECIMENOrdering Facility: [facility] Address: [address] [place] [address] Result Comment: Autumn mated Glomerular Filtration Rate (eGFR) is calculated using the 2020 CKD-EPI creatinine equation. This equation utilizes serum creatinine, sex, and age as parameters. The creatinine assay has traceable calibration to isotope dilution-mass spectrometry. Refer to KDIGO guidelines for clinical interpretation. In patients with unstable renal function, e.g. those with acute kidney injury, the eGFR may not accurately reflect actual GFR. Performed By: #### 2 4321-2 ####[facility] [id number] [place] [address] [place] Glucose [Mass/Vol] 121 mg/dL High 74-99 [facility] Comment on above: Order Comment: Sahil harper Type: BLOOD SPECIMENOrdering Facility: [facility] Address: [address] [place] [address] Result Comment: The [place] Diabetes Association (ADA) provides guidance for cutoff values for fasting glucose and random glucose. The ADA defines fasting as no caloric intake for at least 8 hours. Fasting plasma glucose results between 100 to 125 mg/dL indicate increased risk for diabetes (prediabetes).Fasting plasma glucose results greater than or equal to 126 mg/dL meet the criteria for diagnosis of diabetes. In the absence of unequivocal hyperglycemia, results should be confirmed by repeat testing. In a patient with classic symptoms of hyperglycemia or hyperglycemic crisis, random plasma glucose results greater than or equal to 200 mg/dL meet the criteria for diagnosis of diabetes.Reference: Standards of Medical Care in Diabetes 2016, [place] Diabetes Association. Diabetes Care. 2016.39(Suppl 1). Performed By: #### 2 4321-2 ####[facility]ORATORYCLIA [id number] [place] [address] [place] Potassium [Moles/Vol] 4.3 mmol/L Normal 3.7-5.1 [facility] Comment on above: Order Comment: Speci men Type: BLOOD SPECIMENOrdering Facility: [facility] Address: [address] [place] [address] Performed By: #### 2 4321-2 ####[facility]ORATORYCLIA [id number] [place] [address] [place] Sodium [Moles/Vol] 125 mmol/L Low 136-144 [facility] Comment on above: Order Comment: Speci men Type: BLOOD SPECIMENOrdering Facility: [facility] Address: [address] [place] [address] Performed By: #### 2 4321-2 ####[facility]ORATORYCLIA [id number] [address] [place] Urea nitrogen [Mass/Vol] 25 mg/dL High 9-24 [facility] Comment on above: Order Comment: Speci men Type: BLOOD SPECIMENOrdering Facility: [facility] Address: [address] [place] [address] Performed By: #### 2 4321-2 ####[facility]ATORYCLIA [id number] [address] [place] CBC panel Auto (Bld)on 04-17 Erythrocyte distribution width (RBC) [Ratio] 21.8 % High 11.5-15.0 [facility] Comment on above: Order Comment: Speci men Type: BLOOD SPECIMENOrdering Facility: [facility] Address: [address] [place] [address] Performed By: #### 5 8410-2 ####[facility] LABORATORYCLIA [id number] [address] [place] Hematocrit (Bld) [Volume fraction] 28.7 % Low 39.0-51.0 [facility] Comment on above: Order Comment: Speci men Type: BLOOD SPECIMENOrdering Facility: [facility] Address: [address] [place] [address] Performed By: #### 5 8410-2 ####[facility] LABORATORYCLIA [id number] [address] OF [facility] Hemoglobin (Bld) [Mass/Vol] 9.5 g/dL Low 13.0-17.0 [facility] Comment on above: Order Comment: Speci men Type: BLOOD SPECIMENOrdering Facility: [facility] Address: [address] [place] [address] Performed By: #### 5 8410-2 ####[facility] LABORATORYCLIA [id number] [address] MCH (RBC) [Entitic mass] 36.5 pg High 26.0-34.0 [facility] Comment on above: Order Comment: Speci men Type: BLOOD SPECIMENOrdering Facility: [facility] Address: [address] [place] [address] Performed By: #### 5 8410-2 ####[facility] LABORATORYCLIA [id number] [address] MCHC (RBC) [Mass/Vol] 33.1 g/dL Normal 30.5-36.0 [facility] Comment on above: Order Comment: Speci men Type: BLOOD SPECIMENOrdering Facility: [facility] Address: [address] [place] [address] Performed By: #### 5 8410-2 ####[facility]ORATORYCLIA [id number] [address] MCV (RBC) [Entitic vol] 110.4 fL High 80.0-100.0 [facility] Comment on above: Order Comment: Speci men Type: BLOOD SPECIMENOrdering Facility: [facility] Address: [address] [place] [address] Performed By: #### 5 8410-2 ####[facility]ORATORYCLIA [id number] [address] Nucleated RBC (Bld) [#/Vol] 10*3/uL Normal <0.01 [facility] Comment on above: Order Comment: Speci men Type: BLOOD SPECIMENOrdering Facility: [facility] Address: [address] [place] [address] Performed By: #### 5 8410-2 ####[facility]ORATORYCLIA [id number] [address] [place] Platelet mean volume (Bld) [Entitic vol] 10.9 fL Normal 9.0-12.7 [facility] Comment on above: Order Comment: Speci men Type: BLOOD SPECIMENOrdering Facility: [facility] Address: [address] [place] [address] Performed By: #### 5 8410-2 ####[facility]ORATORYCLIA [id number] [address] [place] Platelets (Bld) [#/Vol] 88 10*3/uL Low 150-400 [facility] Comment on above: Order Comment: Speci men Type: BLOOD SPECIMENOrdering Facility: [facility] Address: [address] [place] [address] Result Comment: No c lot detected. Performed By: #### 5 8410-2 ####[facility]ATORYCLIA [id number] [address] [place] RBC (Bld) [#/Vol] 2.60 10*6/uL Low 4.20-6.00 [facility] Comment on above: Order Comment: Speci men Type: BLOOD SPECIMENOrdering Facility: [facility] Address: [address] [place] [address] Performed By: #### 5 8410-2 ####[facility]ORATORYCLIA [id number] [place] [address] [place] WBC (Bld) [#/Vol] 9.07 10*3/uL Normal 3.70-11.00 [facility] Comment on above: Order Comment: Speci men Type: BLOOD SPECIMENOrdering Facility: [facility] Address: [address] [place] [address] Performed By: #### 5 8410-2 ####[facility]ATORYCLIA [id number] [place] [address] [place] XR CHEST 1V FRONTALon 2024 XR CHEST 1V FRONTAL Normal [facility] Basic metabolic 2000 panelon 04-16-2025 Anion gap [Moles/Vol] 7 mmol/L Low 8-15 [facility] Comment on above: Order Comment: Speci men Type: BLOOD SPECIMENOrdering Facility: [facility] Address: [address] [place] [address] Performed By: #### 2 4321-2 ####[facility]ORATORYCLIA [id number] [place] [address] [place] Calcium [Mass/Vol] 8.6 mg/dL Normal 8.5-10.2 [facility] Comment on above: Order Comment: Speci men Type: BLOOD SPECIMENOrdering Facility: [facility] Address: [address] [place] [address] Performed By: #### 2 4321-2 ####[facility]ORATORYCLIA [id number] [place] [address] [place] Chloride [Moles/Vol] 92 mmol/L Low 98-107 [facility] Comment on above: Order Comment: Speci men Type: BLOOD SPECIMENOrdering Facility: [facility] Address: [address] [place] [address] Performed By: #### 2 4321-2 ####[facility]ATORYCLIA [id number] [place] [address] [place] CO2 [Moles/Vol] 27 mmol/L Normal 22-30 [facility] Comment on above: Order Comment: Speci men Type: BLOOD SPECIMENOrdering Facility: [facility] Address: [address] [place] [address] Performed By: #### 2 4321-2 ####[facility]ORATORYCLIA [id number] [place] [address] [place] Creatinine [Mass/Vol] 0.77 mg/dL Normal 0.73-1.22 [facility] Comment on above: Order Comment: Virgiliosabino harper Type: BLOOD SPECIMENOrdering Facility: [facility] Address: [address] [place] [address] Performed By: #### 2 4321-2 ####[facility]ORATORYCLIA [id number] [place] [address] [place] Creatinine and Glomerular filtration rate.predicted panel (S/P/Bld) 106 mL/min/1.73m??? Normal >=60 [facility] Comment on above: Order Comment: Sahil leroy Type: BLOOD SPECIMENOrdering Facility: [facility] Address: [address] [place] [address] Result Comment: Autumn mated Glomerular Filtration Rate (eGFR) is calculated using the 2020 CKD-EPI creatinine equation. This equation utilizes serum creatinine, sex, and age as parameters. The creatinine assay has traceable calibration to isotope dilution-mass spectrometry. Refer to KDIGO guidelines for clinical interpretation. In patients with unstable renal function, e.g. those with acute kidney injury, the eGFR may not accurately reflect actual GFR. Performed By: #### 2 4321-2 ####[facility]ORATORYCLIA [id number] [place] [address] [place] Glucose [Mass/Vol] 131 mg/dL High 74-99 [facility] Comment on above: Order Comment: Sahil harper Type: BLOOD SPECIMENOrdering Facility: [facility] Address: [address] [place] [address] Result Comment: The [place] Diabetes Association (ADA) provides guidance for cutoff values for fasting glucose and random glucose. The ADA defines fasting as no caloric intake for at least 8 hours. Fasting plasma glucose results between 100 to 125 mg/dL indicate increased risk for diabetes (prediabetes).Fasting plasma glucose results greater than or equal to 126 mg/dL meet the criteria for diagnosis of diabetes. In the absence of unequivocal hyperglycemia, results should be confirmed by repeat testing. In a patient with classic symptoms of hyperglycemia or hyperglycemic crisis, random plasma glucose results greater than or equal to 200 mg/dL meet the criteria for diagnosis of diabetes.Reference: Standards of Medical Care in Diabetes 2016, [place] Diabetes Association. Diabetes Care. 2016.39(Suppl 1). Performed By: #### 2 4321-2 ####[facility]ORATORYCLIA [id number] [address] [place] Potassium [Moles/Vol] 4.2 mmol/L Normal 3.7-5.1 [facility] Comment on above: Order Comment: Speci men Type: BLOOD SPECIMENOrdering Facility: [facility] Address: [address] [place] [address] Performed By: #### 2 4321-2 ####[facility]ORATORYCLIA [id number] [place] [address] [place] Sodium [Moles/Vol] 126 mmol/L Low 136-144 [facility] Comment on above: Order Comment: Speci men Type: BLOOD SPECIMENOrdering Facility: [facility] Address: [address] [place] [address] Performed By: #### 2 4321-2 ####[facility]ORATORYCLIA [id number] [address] STATES OF [facility] Urea nitrogen [Mass/Vol] 23 mg/dL Normal 9-24 [facility] Comment on above: Order Comment: Speci men Type: BLOOD SPECIMENOrdering Facility: [facility] Address: [address] [place] [address] Performed By: #### 2 4321-2 ####[facility]ORATORYCLIA [id number] [address] STATES OF [facility] CBC panel Auto (Bld)on 04-16 Erythrocyte distribution width (RBC) [Ratio] 22.2 % High 11.5-15.0 [facility] Comment on above: Order Comment: Speci men Type: BLOOD SPECIMENOrdering Facility: [facility] Address: [address] [place] [address] Performed By: #### 5 8410-2 ####[facility]ORATORYCLIA [id number] [address] [place] Hematocrit (Bld) [Volume fraction] 26.1 % Low 39.0-51.0 [facility] Comment on above: Order Comment: Speci men Type: BLOOD SPECIMENOrdering Facility: [facility] Address: [address] [place] [address] Performed By: #### 5 8410-2 ####[facility]ORATORYCLIA [id number] [address] Hemoglobin (Bld) [Mass/Vol] 8.5 g/dL Low 13.0-17.0 [facility] Comment on above: Order Comment: Speci men Type: BLOOD SPECIMENOrdering Facility: [facility] Address: [address] [place] [address] Performed By: #### 5 8410-2 ####[facility]ORATORYCLIA [id number] [address] MCH (RBC) [Entitic mass] 35.6 pg High 26.0-34.0 [facility] Comment on above: Order Comment: Speci men Type: BLOOD SPECIMENOrdering Facility: [facility] Address: [address] [place] [address] Performed By: #### 5 8410-2 ####[facility]ORATORYCLIA [id number] [address] MCHC (RBC) [Mass/Vol] 32.6 g/dL Normal 30.5-36.0 [facility] Comment on above: Order Comment: Speci men Type: BLOOD SPECIMENOrdering Facility: [facility] Address: [address] [place] [address] Performed By: #### 5 8410-2 ####[facility]ORATORYCLIA [id number] [address] MCV (RBC) [Entitic vol] 109.2 fL High 80.0-100.0 [facility] Comment on above: Order Comment: Speci men Type: BLOOD SPECIMENOrdering Facility: [facility] Address: [address] [place] [address] Performed By: #### 5 8410-2 ####[facility]ORATORYCLIA [id number] [place] [address] [place] Nucleated RBC (Bld) [#/Vol] 10*3/uL Normal <0.01 [facility] Comment on above: Order Comment: Speci men Type: BLOOD SPECIMENOrdering Facility: [facility] Address: [address] [place] [address] Performed By: #### 5 8410-2 ####[facility]ORATORYCLIA [id number] [address] [place] Platelet mean volume (Bld) [Entitic vol] 10.6 fL Normal 9.0-12.7 [facility] Comment on above: Order Comment: Speci men Type: BLOOD SPECIMENOrdering Facility: [facility] Address: [address] [place] [address] Performed By: #### 5 8410-2 ####[facility]ORATORYCLIA [id number] [address] [place] Platelets (Bld) [#/Vol] 75 10*3/uL Low 150-400 [facility] Comment on above: Order Comment: Speci men Type: BLOOD SPECIMENOrdering Facility: [facility] Address: [address] [place] [address] Performed By: #### 5 8410-2 ####[facility]ATORYCLIA [id number] [address] [place] RBC (Bld) [#/Vol] 2.39 10*6/uL Low 4.20-6.00 [facility] Comment on above: Order Comment: Speci men Type: BLOOD SPECIMENOrdering Facility: [facility] Address: [address] [place] [address] Performed By: #### 5 8410-2 ####[facility]ATORYCLIA [id number] [address] [place] WBC (Bld) [#/Vol] 6.74 10*3/uL Normal 3.70-11.00 [facility] Comment on above: Order Comment: Speci men Type: BLOOD SPECIMENOrdering Facility: [facility] Address: [address] [place] [address] Performed By: #### 5 8410-2 ####[facility]ORATORYCLIA [id number] [place] [address] [place] NUTRITIONon 04-16-2025 NUTRITION Normal [facility] XR CHEST 1V FRONTALon 2024 XR CHEST 1V FRONTAL Normal [facility] Basic metabolic 2000 panelon 04-15-2025 Anion gap [Moles/Vol] 12 mmol/L Normal 8-15 [facility] Comment on above: Order Comment: Speci men Type: BLOOD SPECIMENOrdering Facility: [facility] Address: [address] [place] [address] Performed By: #### 2 4321-2 ####[facility]ORATORYCLIA [id number] [place] [address] [place] Calcium [Mass/Vol] 8.7 mg/dL Normal 8.5-10.2 [facility] Comment on above: Order Comment: Speci men Type: BLOOD SPECIMENOrdering Facility: [facility] Address: [address] [place] [address] Performed By: #### 2 4321-2 ####[facility]ORATORYCLIA [id number] [place] [address] [place] Chloride [Moles/Vol] 89 mmol/L Low 98-107 [facility] Comment on above: Order Comment: Speci men Type: BLOOD SPECIMENOrdering Facility: [facility] Address: [address] [place] [address] Performed By: #### 2 4321-2 ####[facility]ORATORYCLIA [id number] [place] [address] [place] CO2 [Moles/Vol] 25 mmol/L Normal 22-30 [facility] Comment on above: Order Comment: Speci men Type: BLOOD SPECIMENOrdering Facility: [facility] Address: [address] [place] [address] Performed By: #### 2 4321-2 ####[facility]ORATORYCLIA [id number] [place] [address] [place] Creatinine [Mass/Vol] 0.92 mg/dL Normal 0.73-1.22 [facility] Comment on above: Order Comment: Sahil harper Type: BLOOD SPECIMENOrdering Facility: [facility] Address: [address] [place] [address] Performed By: #### 2 4321-2 ####[facility]ORATORYCLIA [id number] [address] Creatinine and Glomerular filtration rate.predicted panel (S/P/Bld) 99 mL/min/1.73m??? Normal >=60 [facility] Comment on above: Order Comment: Sahil harper Type: BLOOD SPECIMENOrdering Facility: [facility] Address: [address] [place] [address] Result Comment: Autumn mated Glomerular Filtration Rate (eGFR) is calculated using the 2020 CKD-EPI creatinine equation. This equation utilizes serum creatinine, sex, and age as parameters. The creatinine assay has traceable calibration to isotope dilution-mass spectrometry. Refer to KDIGO guidelines for clinical interpretation. In patients with unstable renal function, e.g. those with acute kidney injury, the eGFR may not accurately reflect actual GFR. Performed By: #### 2 4321-2 ####[facility]ORATORYCLIA [id number] [address] STATES OF [facility] Glucose [Mass/Vol] 110 mg/dL High 74-99 [facility] Comment on above: Order Comment: Sahil harper Type: BLOOD SPECIMENOrdering Facility: [facility] Address: [address] [place] [address] Result Comment: The [place] Diabetes Association (ADA) provides guidance for cutoff values for fasting glucose and random glucose. The ADA defines fasting as no caloric intake for at least 8 hours. Fasting plasma glucose results between 100 to 125 mg/dL indicate increased risk for diabetes (prediabetes).Fasting plasma glucose results greater than or equal to 126 mg/dL meet the criteria for diagnosis of diabetes. In the absence of unequivocal hyperglycemia, results should be confirmed by repeat testing. In a patient with classic symptoms of hyperglycemia or hyperglycemic crisis, random plasma glucose results greater than or equal to 200 mg/dL meet the criteria for diagnosis of diabetes.Reference: Standards of Medical Care in Diabetes 2016, [place] Diabetes Association. Diabetes Care. 2016.39(Suppl 1). Performed By: #### 2 4321-2 ####[facility]ORATORYCLIA [id number] [address] Potassium [Moles/Vol] 4.6 mmol/L Normal 3.7-5.1 [facility] Comment on above: Order Comment: Speci men Type: BLOOD SPECIMENOrdering Facility: [facility] Address: [address] [place] [address] Performed By: #### 2 4321-2 ####[facility]ORATORYCLIA [id number] [address] Sodium [Moles/Vol] 126 mmol/L Low 136-144 [facility] Comment on above: Order Comment: Speci men Type: BLOOD SPECIMENOrdering Facility: [facility] Address: [address] [place] [address] Performed By: #### 2 4321-2 ####[facility]ORATORYCLIA [id number] [address] Urea nitrogen [Mass/Vol] 30 mg/dL High 9-24 [facility] Comment on above: Order Comment: Speci men Type: BLOOD SPECIMENOrdering Facility: [facility] Address: [address] [place] [address] Performed By: #### 2 4321-2 ####[facility]ORATORYCLIA [id number] [address] CBC panel Auto (Bld)on 04-15 Erythrocyte distribution width (RBC) [Ratio] 22.3 % High 11.5-15.0 [facility] Comment on above: Order Comment: Speci men Type: BLOOD SPECIMENOrdering Facility: [facility] Address: [address] [place] [address] Performed By: #### 5 8410-2 ####[facility]ORATORYCLIA [id number] [address] Hematocrit (Bld) [Volume fraction] 25.8 % Low 39.0-51.0 [facility] Comment on above: Order Comment: Speci men Type: BLOOD SPECIMENOrdering Facility: [facility] Address: [address] [place] [address] Performed By: #### 5 8410-2 ####[facility]ORATORYCLIA [id number] [address] STATES OF [facility] Hemoglobin (Bld) [Mass/Vol] 8.4 g/dL Low 13.0-17.0 [facility] Comment on above: Order Comment: Speci men Type: BLOOD SPECIMENOrdering Facility: [facility] Address: [address] [place] [address] Performed By: #### 5 8410-2 ####[facility]ORATORYCLIA [id number] [address] [place] MCH (RBC) [Entitic mass] 35.9 pg High 26.0-34.0 [facility] Comment on above: Order Comment: Speci men Type: BLOOD SPECIMENOrdering Facility: [facility] Address: [address] [place] [address] Performed By: #### 5 8410-2 ####[facility]ORATORYCLIA [id number] [address] [place] MCHC (RBC) [Mass/Vol] 32.6 g/dL Normal 30.5-36.0 [facility] Comment on above: Order Comment: Speci men Type: BLOOD SPECIMENOrdering Facility: [facility] Address: [address] [place] [address] Performed By: #### 5 8410-2 ####[facility]ORATORYCLIA [id number] [address] [place] MCV (RBC) [Entitic vol] 110.3 fL High 80.0-100.0 [facility] Comment on above: Order Comment: Speci men Type: BLOOD SPECIMENOrdering Facility: [facility] Address: [address] [place] [address] Performed By: #### 5 8410-2 ####[facility]ATORYCLIA [id number] [address] [place] Nucleated RBC (Bld) [#/Vol] 0.02 10*3/uL High <0.01 [facility] Comment on above: Order Comment: Speci men Type: BLOOD SPECIMENOrdering Facility: [facility] Address: [address] [place] [address] Performed By: #### 5 8410-2 ####[facility]ORATORYCLIA [id number] [address] [place] Platelet mean volume (Bld) [Entitic vol] 10.5 fL Normal 9.0-12.7 [facility] Comment on above: Order Comment: Speci men Type: BLOOD SPECIMENOrdering Facility: [facility] Address: [address] [place] [address] Performed By: #### 5 8410-2 ####[facility] [id number] [address] Platelets (Bld) [#/Vol] 75 10*3/uL Low 150-400 [facility] Comment on above: Order Comment: Speci men Type: BLOOD SPECIMENOrdering Facility: [facility] Address: [address] [place] [address] Result Comment: No c lot detected. Performed By: #### 5 8410-2 ####[facility]ORATORYCLIA [id number] [address] [place] RBC (Bld) [#/Vol] 2.34 10*6/uL Low 4.20-6.00 [facility] Comment on above: Order Comment: Speci men Type: BLOOD SPECIMENOrdering Facility: [facility] Address: [address] [place] [address] Performed By: #### 5 8410-2 ####[facility]ATORYCLIA [id number] [address] [place] WBC (Bld) [#/Vol] 7.61 10*3/uL Normal 3.70-11.00 [facility] Comment on above: Order Comment: Speci men Type: BLOOD SPECIMENOrdering Facility: [facility] Address: [address] [place] [address] Performed By: #### 5 8410-2 ####[facility]ATORYCLIA [id number] [address] [place] Erythrocyte distribution width (RBC) [Ratio] 18.4 % High 11.5-15.0 [facility] Comment on above: Order Comment: Speci men Type: BLOOD SPECIMENOrdering Facility: [facility] Address: [address] [place] [address] Performed By: #### 5 8410-2 ####[facility]ATORYCLIA [id number] [address] [place] Hematocrit (Bld) [Volume fraction] 20.8 % Low 39.0-51.0 [facility] Comment on above: Order Comment: Speci men Type: BLOOD SPECIMENOrdering Facility: [facility] Address: [address] [place] [address] Performed By: #### 5 8410-2 ####[facility]ORATORYCLIA [id number] [address] [place] Hemoglobin (Bld) [Mass/Vol] 6.8 g/dL Low 13.0-17.0 [facility] Comment on above: Order Comment: Speci men Type: BLOOD SPECIMENOrdering Facility: [facility] Address: [address] [place] [address] Performed By: #### 5 8410-2 ####[facility]ORATORYCLIA [id number] [address] [place] MCH (RBC) [Entitic mass] 37.4 pg High 26.0-34.0 [facility] Comment on above: Order Comment: Speci men Type: BLOOD SPECIMENOrdering Facility: [facility] Address: [address] [place] [address] Performed By: #### 5 8410-2 ####[facility] LABORATORYCLIA [id number] [address] [facility] (RBC) [Mass/Vol] 32.7 g/dL Normal 30.5-36.0 [facility] Comment on above: Order Comment: Speci men Type: BLOOD SPECIMENOrdering Facility: [facility] Address: [address] [place] [address] Performed By: #### 5 8410-2 ####[facility] LABORATORYCLIA [id number] [address] [place] MCV (RBC) [Entitic vol] 114.3 fL High 80.0-100.0 [facility] Comment on above: Order Comment: Speci men Type: BLOOD SPECIMENOrdering Facility: [facility] Address: [address] [place] [address] Performed By: #### 5 8410-2 ####[facility] LABORATORYCLIA [id number] [address] Nucleated RBC (Bld) [#/Vol] 0.05 10*3/uL High <0.01 [facility] Comment on above: Order Comment: Speci men Type: BLOOD SPECIMENOrdering Facility: [facility] Address: [address] [place] [address] Performed By: #### 5 8410-2 ####[facility] LABORATORYCLIA [id number] [address] [place] Platelet mean volume (Bld) [Entitic vol] 10.3 fL Normal 9.0-12.7 [facility] Comment on above: Order Comment: Speci men Type: BLOOD SPECIMENOrdering Facility: [facility] Address: [address] [place] [address] Performed By: #### 5 8410-2 ####[facility] LABORATORYCLIA [id number] [address] [place] Platelets (Bld) [#/Vol] 78 10*3/uL Low 150-400 [facility] Comment on above: Order Comment: Speci men Type: BLOOD SPECIMENOrdering Facility: [facility] Address: [address] [id number] Performed By: #### 5 8410-2 ####[facility] LABORATORYCLIA [id number] [place] [address] [place] RBC (Bld) [#/Vol] 1.82 10*6/uL Low 4.20-6.00 [facility] Comment on above: Order Comment: Speci men Type: BLOOD SPECIMENOrdering Facility: [facility] Address: [address] [place] [address] Performed By: #### 5 8410-2 ####[facility] LABORATORYCLIA [id number] [place] [id number] [place] [facility] WBC (Bld) [#/Vol] 9.34 10*3/uL Normal 3.70-11.00 [facility] Comment on above: Order Comment: Speci men Type: BLOOD SPECIMENOrdering Facility: [facility] Address: [address] [place] [address] Performed By: #### 5 8410-2 ####[facility] LABORATORYCLIA [id number] [address] [place] Creatinine Unsp time (U) [Ma ss/Vol]on 04-15-2025 Creatinine (U) [Mass/Vol] 116.5 mg/dL Normal 46.8-314.5 [facility] Comment on above: Order Comment: Speci men Type: URINE SPECIMENOrdering Facility: [facility] Address: [address] [place] [address] Performed By: #### 2 695-5, 23982-1, 44746-8 ####[facility] LABORATORYCLIA [id number] [place] [address] [place] NURSING PROGon 04-15-2025 NURSING PROG Normal [facility] NURSING PROG Normal [facility] Osmolality Uron 04-15-2025 Osmolality (U) [Osmolality] 449 mosm/kg Normal 50-1200 [facility] Comment on above: Order Comment: Speci men Type: URINE SPECIMENOrdering Facility: [facility] Address: [address] [place] [address] Performed By: #### 2 695-5, 77445-3, 51366-0 ####[facility] LABORATORYCLIA [id number] [place] [address] [place] Sodium ?Tm Ur-sCncon 025 Sodium Unsp time (U) [Moles/Vol] <20 Normal 14-216 [facility] Comment on above: Order Comment: Speci men Type: URINE SPECIMENOrdering Facility: [facility] Address: [address] [place] [address] Performed By: #### 2 695-5, 49919-2, 03920-0 ####[facility] LABORATORYCLIA [id number] [address] TYPE + SCREENon 04-15-2025 ABO AB Normal [facility] Comment on above: Order Comment: Speci men Type: BLOOD SPECIMENOrdering Facility: [facility] Address: [address] [place] [address] Performed By: #### T SCR ####[facility] BLOOD BANKCLIA [id number] [address] [place] Rh Nom (Bld) Positive Normal [facility] Comment on above: Order Comment: Speci men Type: BLOOD SPECIMENOrdering Facility: [facility] Address: [address] [place] [address] Performed By: #### T SCR ####[facility] BLOOD BANKCLIA [id number] [address] OF [facility] TYPE AND SCREEN EXPIRATION 04/18/2025 23:59 Normal [facility] Comment on above: Order Comment: Speci men Type: BLOOD SPECIMENOrdering Facility: [facility] Address: [address] [place] [address] Performed By: #### T SCR ####[facility] BLOOD BANKCLIA [id number] [place] [address] [place] XR CHEST 1V FRONTALon 2024 XR CHEST 1V FRONTAL Normal [facility] ALLIED HEALTHon 04-14-2025 ALLIED HEALTH Normal [facility] Basic metabolic 2000 panelon 04-14-2025 Anion gap [Moles/Vol] 12 mmol/L Normal 8-15 [facility] Comment on above: Order Comment: Speci men Type: BLOOD SPECIMENOrdering Facility: [facility] Address: [address] [place] [address] Performed By: #### 2 692-2, 87113-7 ####[facility] LABORATORYCLIA [id number] [place] [address] [place] Calcium [Mass/Vol] 8.8 mg/dL Normal 8.5-10.2 [facility] Comment on above: Order Comment: Speci men Type: BLOOD SPECIMENOrdering Facility: [facility] Address: [address] [place] [address] Performed By: #### 2 692-2, 67214-1 ####[facility] LABORATORYCLIA [id number] [place] [address] [place] Chloride [Moles/Vol] 88 mmol/L Low 98-107 [facility] Comment on above: Order Comment: Speci men Type: BLOOD SPECIMENOrdering Facility: [facility] Address: [address] [place] [address] Performed By: #### 2 692-2, 03161-0 ####[facility] LABORATORYCLIA [id number] [place] [address] [place] CO2 [Moles/Vol] 27 mmol/L Normal 22-30 [facility] Comment on above: Order Comment: Speci men Type: BLOOD SPECIMENOrdering Facility: [facility] Address: [address] [place] [address] Performed By: #### 2 692-2, 91945-8 ####[facility]ORATORYCLIA [id number] [place] [address] [place] Creatinine [Mass/Vol] 0.88 mg/dL Normal 0.73-1.22 [facility] Comment on above: Order Comment: Speci men Type: BLOOD SPECIMENOrdering Facility: [facility] Address: [address] [place] [address] Performed By: #### 2 692-2, 18647-1 ####[facility] HAUTEIA [id number] [place] [id number] [facility] [place] Creatinine and Glomerular filtration rate.predicted panel (S/P/Bld) 102 mL/min/1.73m??? Normal >=60 [facility] Comment on above: Order Comment: Sahil harper Type: BLOOD SPECIMENOrdering Facility: [facility] Address: [address] [place] [address] Result Comment: Autumn mated Glomerular Filtration Rate (eGFR) is calculated using the 2020 CKD-EPI creatinine equation. This equation utilizes serum creatinine, sex, and age as parameters. The creatinine assay has traceable calibration to isotope dilution-mass spectrometry. Refer to KDIGO guidelines for clinical interpretation. In patients with unstable renal function, e.g. those with acute kidney injury, the eGFR may not accurately reflect actual GFR. Performed By: #### 2 692-2, 93221-0 ####[facility] HAUTEIA [id number] [place] [address] [place] Glucose [Mass/Vol] 121 mg/dL High 74-99 [facility] Comment on above: Order Comment: Sahil harper Type: BLOOD SPECIMENOrdering Facility: [facility] Address: [address] [place] [address] Result Comment: The [place] Diabetes Association (ADA) provides guidance for cutoff values for fasting glucose and random glucose. The ADA defines fasting as no caloric intake for at least 8 hours. Fasting plasma glucose results between 100 to 125 mg/dL indicate increased risk for diabetes (prediabetes).Fasting plasma glucose results greater than or equal to 126 mg/dL meet the criteria for diagnosis of diabetes. In the absence of unequivocal hyperglycemia, results should be confirmed by repeat testing. In a patient with classic symptoms of hyperglycemia or hyperglycemic crisis, random plasma glucose results greater than or equal to 200 mg/dL meet the criteria for diagnosis of diabetes.Reference: Standards of Medical Care in Diabetes 2016, [place] Diabetes Association. Diabetes Care. 2016.39(Suppl 1). Performed By: #### 2 692-2, 11444-5 ####[facility] H[facility]PITALCLIA [id number] [place] [address] [place] Potassium [Moles/Vol] 4.7 mmol/L Normal 3.7-5.1 [facility] Comment on above: Order Comment: Speci men Type: BLOOD SPECIMENOrdering Facility: [facility] Address: [address] [place] [address] Performed By: #### 2 692-2, 80386-3 ####[facility] LABORATORYCLIA [id number] [place] [address] [place] Sodium [Moles/Vol] 127 mmol/L Low 136-144 [facility] Comment on above: Order Comment: Speci men Type: BLOOD SPECIMENOrdering Facility: [facility] Address: [address] [place] [address] Performed By: #### 2 692-2, 58304-6 ####[facility]ORATORYCLIA [id number] [place] [address] [place] Urea nitrogen [Mass/Vol] 28 mg/dL High 9-24 [facility] Comment on above: Order Comment: Speci men Type: BLOOD SPECIMENOrdering Facility: [facility] Address: [address] [place] [address] Performed By: #### 2 692-2, 75947-6 ####[facility]ORATORYCLIA [id number] [place] [address] [place] Anion gap [Moles/Vol] 6 mmol/L Low 8-15 [facility] Comment on above: Order Comment: Speci men Type: BLOOD SPECIMENOrdering Facility: [facility] Address: [address] [place] [address] Performed By: #### 2 4321-2 ####[facility]ORATORYCLIA [id number] [address] [place] Calcium [Mass/Vol] 8.5 mg/dL Normal 8.5-10.2 [facility] Comment on above: Order Comment: Speci men Type: BLOOD SPECIMENOrdering Facility: [facility] Address: [address] [place] [address] Performed By: #### 2 4321-2 ####[facility] LABORATORYCLIA [id number] [place] [id number] [place] Chloride [Moles/Vol] 91 mmol/L Low 98-107 [facility] Comment on above: Order Comment: Speci men Type: BLOOD SPECIMENOrdering Facility: [facility] Address: [address] [place] [address] Performed By: #### 2 4321-2 ####[facility] LABORATORYCLIA [id number] [address] [place] CO2 [Moles/Vol] 28 mmol/L Normal 22-30 [facility] Comment on above: Order Comment: Speci men Type: BLOOD SPECIMENOrdering Facility: [facility] Address: [address] [place] [address] Performed By: #### 2 4321-2 ####[facility] LABORATORYCLIA [id number] [address] STATES OF [facility] Creatinine [Mass/Vol] 0.87 mg/dL Normal 0.73-1.22 [facility] Comment on above: Order Comment: Speci men Type: BLOOD SPECIMENOrdering Facility: [facility] Address: [address] [place] [address] Performed By: #### 2 4321-2 ####[facility] LABORATORYCLIA [id number] [address] Creatinine and Glomerular filtration rate.predicted panel (S/P/Bld) 103 mL/min/1.73m??? Normal >=60 [facility] Comment on above: Order Comment: Speci men Type: BLOOD SPECIMENOrdering Facility: [facility] Address: [address] [place] [address] Result Comment: Autumn mated Glomerular Filtration Rate (eGFR) is calculated using the 2020 CKD-EPI creatinine equation. This equation utilizes serum creatinine, sex, and age as parameters. The creatinine assay has traceable calibration to isotope dilution-mass spectrometry. Refer to KDIGO guidelines for clinical interpretation. In patients with unstable renal function, e.g. those with acute kidney injury, the eGFR may not accurately reflect actual GFR. Performed By: #### 2 4321-2 ####[facility] LABORATORYCLIA [id number] [place] [address] [place] Glucose [Mass/Vol] 126 mg/dL High 74-99 [facility] Comment on above: Order Comment: Sahil harper Type: BLOOD SPECIMENOrdering Facility: [facility] Address: [address] [place] [address] Result Comment: The [place] Diabetes Association (ADA) provides guidance for cutoff values for fasting glucose and random glucose. The ADA defines fasting as no caloric intake for at least 8 hours. Fasting plasma glucose results between 100 to 125 mg/dL indicate increased risk for diabetes (prediabetes).Fasting plasma glucose results greater than or equal to 126 mg/dL meet the criteria for diagnosis of diabetes. In the absence of unequivocal hyperglycemia, results should be confirmed by repeat testing. In a patient with classic symptoms of hyperglycemia or hyperglycemic crisis, random plasma glucose results greater than or equal to 200 mg/dL meet the criteria for diagnosis of diabetes.Reference: Standards of Medical Care in Diabetes 2016, [place] Diabetes Association. Diabetes Care. 2016.39(Suppl 1). Performed By: #### 2 4321-2 ####[facility] LABORATORYCLIA [id number] [place] [address] [place] Potassium [Moles/Vol] 4.3 mmol/L Normal 3.7-5.1 [facility] Comment on above: Order Comment: Sahil harper Type: BLOOD SPECIMENOrdering Facility: [facility] Address: [address] [id number] Performed By: #### 2 4321-2 ####[facility] LABORATORYCLIA [id number] [place] [id number] [place] Sodium [Moles/Vol] 125 mmol/L Low 136-144 [facility] Comment on above: Order Comment: Sahil harper Type: BLOOD SPECIMENOrdering Facility: [facility] Address: [address] [id number] Performed By: #### 2 4321-2 ####[facility] LABORATORYCLIA [id number] [address] STATES OF [facility] Urea nitrogen [Mass/Vol] 25 mg/dL High 9-24 [facility] Comment on above: Order Comment: Speci men Type: BLOOD SPECIMENOrdering Facility: [facility] Address: [address] [place] [address] Performed By: #### 2 4321-2 ####[facility] LABORATORYCLIA [id number] [address] CBC panel Auto (Bld)on 04-14 Erythrocyte distribution width (RBC) [Ratio] 18.3 % High 11.5-15.0 [facility] Comment on above: Order Comment: Speci men Type: BLOOD SPECIMENOrdering Facility: [facility] Address: [address] [place] [address] Performed By: #### 5 8410-2 ####[facility] LABORATORYCLIA [id number] [address] Hematocrit (Bld) [Volume fraction] 21.9 % Low 39.0-51.0 [facility] Comment on above: Order Comment: Speci men Type: BLOOD SPECIMENOrdering Facility: [facility] Address: [address] [place] [address] Performed By: #### 5 8410-2 ####[facility] LABORATORYCLIA [id number] [address] STATES OF [facility] Hemoglobin (Bld) [Mass/Vol] 7.2 g/dL Low 13.0-17.0 [facility] Comment on above: Order Comment: Speci men Type: BLOOD SPECIMENOrdering Facility: [facility] Address: [address] [place] [address] Performed By: #### 5 8410-2 ####[facility] LABORATORYCLIA [id number] [address] [place] MCH (RBC) [Entitic mass] 37.3 pg High 26.0-34.0 [facility] Comment on above: Order Comment: Speci men Type: BLOOD SPECIMENOrdering Facility: [facility] Address: [address] [place] [address] Performed By: #### 5 8410-2 ####[facility] LABORATORYCLIA [id number] [address] MCHC (RBC) [Mass/Vol] 32.9 g/dL Normal 30.5-36.0 [facility] Comment on above: Order Comment: Speci men Type: BLOOD SPECIMENOrdering Facility: [facility] Address: [address] [place] [address] Performed By: #### 5 8410-2 ####[facility] LABORATORYCLIA [id number] [address] OF [facility] MCV (RBC) [Entitic vol] 113.5 fL High 80.0-100.0 [facility] Comment on above: Order Comment: Speci men Type: BLOOD SPECIMENOrdering Facility: [facility] Address: [address] [place] [address] Performed By: #### 5 8410-2 ####[facility] LABORATORYCLIA [id number] [address] Nucleated RBC (Bld) [#/Vol] 0.04 10*3/uL High <0.01 [facility] Comment on above: Order Comment: Speci men Type: BLOOD SPECIMENOrdering Facility: [facility] Address: [address] [place] [address] Performed By: #### 5 8410-2 ####[facility] LABORATORYCLIA [id number] [address] Platelet mean volume (Bld) [Entitic vol] 10.9 fL Normal 9.0-12.7 [facility] Comment on above: Order Comment: Speci men Type: BLOOD SPECIMENOrdering Facility: [facility] Address: [address] [place] [address] Performed By: #### 5 8410-2 ####[facility] LABORATORYCLIA [id number] [address] Platelets (Bld) [#/Vol] 62 10*3/uL Low 150-400 [facility] Comment on above: Order Comment: Speci men Type: BLOOD SPECIMENOrdering Facility: [facility] Address: [address] [place] [address] Result Comment: No c lot detected. Performed By: #### 5 8410-2 ####[facility] LABORATORYCLIA [id number] [place] [address] [place] RBC (Bld) [#/Vol] 1.93 10*6/uL Low 4.20-6.00 [facility] Comment on above: Order Comment: Speci men Type: BLOOD SPECIMENOrdering Facility: [facility] Address: [address] [place] [address] Performed By: #### 5 8410-2 ####[facility] LABORATORYCLIA [id number] [address] WBC (Bld) [#/Vol] 6.86 10*3/uL Normal 3.70-11.00 [facility] Comment on above: Order Comment: Speci men Type: BLOOD SPECIMENOrdering Facility: [facility] Address: [address] [place] [address] Performed By: #### 5 8410-2 ####[facility] LABORATORYCLIA [id number] [address] OF [facility] CT CHEST WO IVCONon 04-14-[address] CHEST WO IVCON Normal [facility] ECG COMPLETEon 04-14-2025 ECG COMPLETE Normal [facility] NURSING PROGon 04-14-2025 NURSING PROG Normal [facility] NURSING PROG Normal [facility] Osmolality SerPlon Osmolality [Osmolality] 281 mosm/kg Normal 275-300 [facility] Comment on above: Order Comment: Speci men Type: BLOOD SPECIMENOrdering Facility: [facility] Address: [address] [place] [address] Performed By: #### 2 692-2, 84139-3 ####[facility]ORATORYCLIA [id number] [place] [address] [place] THERAPY NTon 04-14-2025 THERAPY NT Normal [facility] XR CHEST 1V FRONTALon 2024 XR CHEST 1V FRONTAL Normal [facility] XR CHEST 1V FRONTAL Normal [facility] XR CHEST 1V FRONTAL Normal [facility] ALLIED HEALTHon 04-13-2025 ALLIED HEALTH Normal [facility] Basic metabolic 2000 panelon 04-13-2025 Anion gap [Moles/Vol] 6 mmol/L Low 8-15 [facility] Comment on above: Order Comment: Speci men Type: BLOOD SPECIMENOrdering Facility: [facility] Address: [address] [place] [address] Performed By: #### 2 4321-2 ####[facility] LABORATORYCLIA [id number] [place] [address] [place] Calcium [Mass/Vol] 8.8 mg/dL Normal 8.5-10.2 [facility] Comment on above: Order Comment: Speci men Type: BLOOD SPECIMENOrdering Facility: [facility] Address: [address] [place] [address] Performed By: #### 2 4321-2 ####[facility] LABORATORYCLIA [id number] [place] [address] [place] Chloride [Moles/Vol] 91 mmol/L Low 98-107 [facility] Comment on above: Order Comment: Speci men Type: BLOOD SPECIMENOrdering Facility: [facility] Address: [address] [place] [address] Performed By: #### 2 4321-2 ####[facility] LABORATORYCLIA [id number] [place] [address] [place] CO2 [Moles/Vol] 32 mmol/L High 22-30 [facility] Comment on above: Order Comment: Speci men Type: BLOOD SPECIMENOrdering Facility: [facility] Address: [address] [place] [address] Performed By: #### 2 4321-2 ####[facility]ATORYCLIA [id number] [place] [address] [place] Creatinine [Mass/Vol] 1.02 mg/dL Normal 0.73-1.22 [facility] Comment on above: Order Comment: Sahil harper Type: BLOOD SPECIMENOrdering Facility: [facility] Address: [address] [place] [address] Performed By: #### 2 4321-2 ####[facility] LABORATORYCLIA [id number] [address] Creatinine and Glomerular filtration rate.predicted panel (S/P/Bld) 87 mL/min/1.73m??? Normal >=60 [facility] Comment on above: Order Comment: Sahil harper Type: BLOOD SPECIMENOrdering Facility: [facility] Address: [address] [place] [address] Result Comment: Autumn mated Glomerular Filtration Rate (eGFR) is calculated using the 2020 CKD-EPI creatinine equation. This equation utilizes serum creatinine, sex, and age as parameters. The creatinine assay has traceable calibration to isotope dilution-mass spectrometry. Refer to KDIGO guidelines for clinical interpretation. In patients with unstable renal function, e.g. those with acute kidney injury, the eGFR may not accurately reflect actual GFR. Performed By: #### 2 4321-2 ####[facility] [id number] [address] [place] Glucose [Mass/Vol] 116 mg/dL High 74-99 [facility] Comment on above: Order Comment: Sahil harper Type: BLOOD SPECIMENOrdering Facility: [facility] Address: [address] [place] [address] Result Comment: The [place] Diabetes Association (ADA) provides guidance for cutoff values for fasting glucose and random glucose. The ADA defines fasting as no caloric intake for at least 8 hours. Fasting plasma glucose results between 100 to 125 mg/dL indicate increased risk for diabetes (prediabetes).Fasting plasma glucose results greater than or equal to 126 mg/dL meet the criteria for diagnosis of diabetes. In the absence of unequivocal hyperglycemia, results should be confirmed by repeat testing. In a patient with classic symptoms of hyperglycemia or hyperglycemic crisis, random plasma glucose results greater than or equal to 200 mg/dL meet the criteria for diagnosis of diabetes.Reference: Standards of Medical Care in Diabetes 2016, [place] Diabetes Association. Diabetes Care. 2016.39(Suppl 1). Performed By: #### 2 4321-2 ####[facility] LABORATORYCLIA [id number] [address] STATES OF [facility] Potassium [Moles/Vol] 4.4 mmol/L Normal 3.7-5.1 [facility] Comment on above: Order Comment: Speci men Type: BLOOD SPECIMENOrdering Facility: [facility] Address: [address] [place] [address] Performed By: #### 2 4321-2 ####[facility] LABORATORYCLIA [id number] [place] [id number] [facility] Sodium [Moles/Vol] 129 mmol/L Low 136-144 [facility] Comment on above: Order Comment: Speci men Type: BLOOD SPECIMENOrdering Facility: [facility] Address: [address] [place] [address] Performed By: #### 2 4321-2 ####[facility] LABORATORYCLIA [id number] [address] Urea nitrogen [Mass/Vol] 27 mg/dL High 9-24 [facility] Comment on above: Order Comment: Speci men Type: BLOOD SPECIMENOrdering Facility: [facility] Address: [address] [place] [address] Performed By: #### 2 4321-2 ####[facility] LABORATORYCLIA [id number] [address] CBC panel Auto (Bld)on 04-13 Erythrocyte distribution width (RBC) [Ratio] 18.2 % High 11.5-15.0 [facility] Comment on above: Order Comment: Speci men Type: BLOOD SPECIMENOrdering Facility: [facility] Address: [address] [place] [address] Performed By: #### 5 8410-2 ####[facility] LABORATORYCLIA [id number] [address] [place] Hematocrit (Bld) [Volume fraction] 23.5 % Low 39.0-51.0 [facility] Comment on above: Order Comment: Speci men Type: BLOOD SPECIMENOrdering Facility: [facility] Address: [address] [place] [address] Performed By: #### 5 8410-2 ####[facility] LABORATORYCLIA [id number] [address] STATES OF [facility] Hemoglobin (Bld) [Mass/Vol] 7.6 g/dL Low 13.0-17.0 [facility] Comment on above: Order Comment: Speci men Type: BLOOD SPECIMENOrdering Facility: [facility] Address: [address] [place] [address] Performed By: #### 5 8410-2 ####[facility] LABORATORYCLIA [id number] [address] STATES OF [facility] MCH (RBC) [Entitic mass] 37.4 pg High 26.0-34.0 [facility] Comment on above: Order Comment: Speci men Type: BLOOD SPECIMENOrdering Facility: [facility] Address: [address] [place] [address] Performed By: #### 5 8410-2 ####[facility] LABORATORYCLIA [id number] [address] [place] MCHC (RBC) [Mass/Vol] 32.3 g/dL Normal 30.5-36.0 [facility] Comment on above: Order Comment: Speci men Type: BLOOD SPECIMENOrdering Facility: [facility] Address: [address] [place] [address] Performed By: #### 5 8410-2 ####[facility]ORATORYCLIA [id number] [address] MCV (RBC) [Entitic vol] 115.8 fL High 80.0-100.0 [facility] Comment on above: Order Comment: Speci men Type: BLOOD SPECIMENOrdering Facility: [facility] Address: [address] [place] [address] Performed By: #### 5 8410-2 ####[facility]ORATORYCLIA [id number] [place] [address] [place] Nucleated RBC (Bld) [#/Vol] 0.06 10*3/uL High <0.01 [facility] Comment on above: Order Comment: Speci men Type: BLOOD SPECIMENOrdering Facility: [facility] Address: [address] [place] [address] Performed By: #### 5 8410-2 ####[facility] LABORATORYCLIA [id number] [address] [place] Platelet mean volume (Bld) [Entitic vol] 10.2 fL Normal 9.0-12.7 [facility] Comment on above: Order Comment: Speci men Type: BLOOD SPECIMENOrdering Facility: [facility] Address: [address] [place] [address] Performed By: #### 5 8410-2 ####[facility] LABORATORYCLIA [id number] [address] [place] Platelets (Bld) [#/Vol] 66 10*3/uL Low 150-400 [facility] Comment on above: Order Comment: Speci men Type: BLOOD SPECIMENOrdering Facility: [facility] Address: [address] [place] [address] Performed By: #### 5 8410-2 ####[facility] LABORATORYCLIA [id number] [address] [place] RBC (Bld) [#/Vol] 2.03 10*6/uL Low 4.20-6.00 [facility] Comment on above: Order Comment: Speci men Type: BLOOD SPECIMENOrdering Facility: [facility] Address: [address] [place] [address] Performed By: #### 5 8410-2 ####[facility] LABORATORYCLIA [id number] [address] [place] WBC (Bld) [#/Vol] 7.67 10*3/uL Normal 3.70-11.00 [facility] Comment on above: Order Comment: Speci men Type: BLOOD SPECIMENOrdering Facility: [facility] Address: [address] [place] [address] Performed By: #### 5 8410-2 ####[facility] LABORATORYCLIA [id number] [place] [address] [place] THERAPY NTon 04-13-2025 THERAPY NT Normal [facility] XR CHEST 1V FRONTALon 2024 XR CHEST 1V FRONTAL Normal [facility] Basic metabolic 2000 panelon 04-12-2025 Anion gap [Moles/Vol] 8 mmol/L Normal 8-15 [facility] Comment on above: Order Comment: Speci men Type: BLOOD SPECIMENOrdering Facility: [facility] Address: [address] [place] [address] Performed By: #### 2 4321-2, , 2776-11 ####[facility] LABORATORYCLIA [id number] [place] [address] [place] Calcium [Mass/Vol] 9.2 mg/dL Normal 8.5-10.2 [facility] Comment on above: Order Comment: Speci men Type: BLOOD SPECIMENOrdering Facility: [facility] Address: [address] [place] [address] Performed By: #### 2 4321-2, , 2776-11 ####[facility] LABORATORYCLIA [id number] [place] [address] [place] Chloride [Moles/Vol] 95 mmol/L Low 98-107 [facility] Comment on above: Order Comment: Speci men Type: BLOOD SPECIMENOrdering Facility: [facility] Address: [address] [place] [address] Performed By: #### 2 4321-2, , 2776-11 ####[facility] LABORATORYCLIA [id number] [place] [address] [place] CO2 [Moles/Vol] 30 mmol/L Normal 22-30 [facility] Comment on above: Order Comment: Speci men Type: BLOOD SPECIMENOrdering Facility: [facility] Address: [address] [place] [address] Performed By: #### 2 4321-2, , 2776-11 ####[facility]PITALCLIA [id number] [place] [address] [place] Creatinine [Mass/Vol] 0.75 mg/dL Normal 0.73-1.22 [facility] Comment on above: Order Comment: Speci men Type: BLOOD SPECIMENOrdering Facility: [facility] Address: [address] [place] [address] Performed By: #### 2 4321-2, , 2776-11 ####[facility]PITALCLIA [id number] [address] OF [facility] Creatinine and Glomerular filtration rate.predicted panel (S/P/Bld) 107 mL/min/1.73m??? Normal >=60 [facility] Comment on above: Order Comment: Speci men Type: BLOOD SPECIMENOrdering Facility: [facility] Address: [address] [place] [address] Result Comment: Autumn mated Glomerular Filtration Rate (eGFR) is calculated using the 2020 CKD-EPI creatinine equation. This equation utilizes serum creatinine, sex, and age as parameters. The creatinine assay has traceable calibration to isotope dilution-mass spectrometry. Refer to KDIGO guidelines for clinical interpretation. In patients with unstable renal function, e.g. those with acute kidney injury, the eGFR may not accurately reflect actual GFR. Performed By: #### 2 4321-2, , 2776-11 ####[facility] LABORATORYIA [id number] [place] [address] [place] Glucose [Mass/Vol] 138 mg/dL High 74-99 [facility] Comment on above: Order Comment: Speci men Type: BLOOD SPECIMENOrdering Facility: [facility] Address: [address] [place] [address] Result Comment: The [place] Diabetes Association (ADA) provides guidance for cutoff values for fasting glucose and random glucose. The ADA defines fasting as no caloric intake for at least 8 hours. Fasting plasma glucose results between 100 to 125 mg/dL indicate increased risk for diabetes (prediabetes).Fasting plasma glucose results greater than or equal to 126 mg/dL meet the criteria for diagnosis of diabetes. In the absence of unequivocal hyperglycemia, results should be confirmed by repeat testing. In a patient with classic symptoms of hyperglycemia or hyperglycemic crisis, random plasma glucose results greater than or equal to 200 mg/dL meet the criteria for diagnosis of diabetes.Reference: Standards of Medical Care in Diabetes 2016, [place] Diabetes Association. Diabetes Care. 2016.39(Suppl 1). Performed By: #### 2 4321-2, , 2776-11 ####[facility] LABORATORYCLIA [id number] [place] [address] [place] Potassium [Moles/Vol] 4.4 mmol/L Normal 3.7-5.1 [facility] Comment on above: Order Comment: Sahil harper Type: BLOOD SPECIMENOrdering Facility: [facility] Address: [address] [place] [address] Performed By: #### 2 4321-2, , 2776-11 ####[facility] LABORATORYCLIA [id number] [place] [address] [place] Sodium [Moles/Vol] 133 mmol/L Low 136-144 [facility] Comment on above: Order Comment: Sahil harper Type: BLOOD SPECIMENOrdering Facility: [facility] Address: [address] [place] [address] Performed By: #### 2 4321-2, , 2776-11 ####[facility] LABORATORYCLIA [id number] [place] [address] [place] Urea nitrogen [Mass/Vol] 21 mg/dL Normal 9-24 [facility] Comment on above: Order Comment: Sahil harper Type: BLOOD SPECIMENOrdering Facility: [facility] Address: [address] [place] [address] Performed By: #### 2 4321-2, , 2776-11 ####[facility] LABORATORYCLIA [id number] [address] [place] CASE MANAGEMon 04-12-2025 CASE MANAGEM Normal [facility] CBC panel Auto (Bld)on 04-12 Erythrocyte distribution width (RBC) [Ratio] 19.0 % High 11.5-15.0 [facility] Comment on above: Order Comment: Speci men Type: BLOOD SPECIMENOrdering Facility: [facility] Address: [address] [place] [address] Performed By: #### 5 8410-2 ####[facility] LABORATORYCLIA [id number] [address] Hematocrit (Bld) [Volume fraction] 25.2 % Low 39.0-51.0 [facility] Comment on above: Order Comment: Speci men Type: BLOOD SPECIMENOrdering Facility: [facility] Address: [address] [place] [address] Performed By: #### 5 8410-2 ####[facility] LABORATORYCLIA [id number] [address] OF [facility] Hemoglobin (Bld) [Mass/Vol] 8.2 g/dL Low 13.0-17.0 [facility] Comment on above: Order Comment: Speci men Type: BLOOD SPECIMENOrdering Facility: [facility] Address: [address] [place] [address] Performed By: #### 5 8410-2 ####[facility] LABORATORYCLIA [id number] [address] [place] MCH (RBC) [Entitic mass] 37.4 pg High 26.0-34.0 [facility] Comment on above: Order Comment: Speci men Type: BLOOD SPECIMENOrdering Facility: [facility] Address: [address] [place] [address] Performed By: #### 5 8410-2 ####[facility] LABORATORYCLIA [id number] [address] [place] MCHC (RBC) [Mass/Vol] 32.5 g/dL Normal 30.5-36.0 [facility] Comment on above: Order Comment: Speci men Type: BLOOD SPECIMENOrdering Facility: [facility] Address: [address] [place] [address] Performed By: #### 5 8410-2 ####DCBRY[address] [facility] LABORATORYCLIA [id number] [address] STATES OF [facility] MCV (RBC) [Entitic vol] 115.1 fL High 80.0-100.0 [facility] Comment on above: Order Comment: Speci men Type: BLOOD SPECIMENOrdering Facility: [facility] Address: [address] [place] [address] Performed By: #### 5 8410-2 ####[facility] LABORATORYCLIA [id number] [address] OF [facility] Nucleated RBC (Bld) [#/Vol] 0.08 10*3/uL High <0.01 [facility] Comment on above: Order Comment: Speci men Type: BLOOD SPECIMENOrdering Facility: [facility] Address: [address] [place] [address] Performed By: #### 5 8410-2 ####[facility] LABORATORYCLIA [id number] [address] OF [place] Platelet mean volume (Bld) [Entitic vol] 10.4 fL Normal 9.0-12.7 [facility] Comment on above: Order Comment: Speci men Type: BLOOD SPECIMENOrdering Facility: [facility] Address: [address] [place] [address] Performed By: #### 5 8410-2 ####[facility]ORATORYCLIA [id number] [address] Platelets (Bld) [#/Vol] 82 10*3/uL Low 150-400 [facility] Comment on above: Order Comment: Speci men Type: BLOOD SPECIMENOrdering Facility: [facility] Address: [address] [place] [address] Result Comment: No c lot detected. Performed By: #### 5 8410-2 ####[facility] LABORATORYCLIA [id number] [address] STATES OF [facility] RBC (Bld) [#/Vol] 2.19 10*6/uL Low 4.20-6.00 [facility] Comment on above: Order Comment: Speci men Type: BLOOD SPECIMENOrdering Facility: [facility] Address: [address] [place] [address] Performed By: #### 5 8410-2 ####[facility] LABORATORYCLIA [id number] [address] WBC (Bld) [#/Vol] 7.30 10*3/uL Normal 3.70-11.00 [facility] Comment on above: Order Comment: Speci men Type: BLOOD SPECIMENOrdering Facility: [facility] Address: [address] [place] [address] Performed By: #### 5 8410-2 ####[facility]PITALCLIA [id number] [address] Calcium.ionized [Moles/Vol]o n 04-12-2025 Calcium.ionized (BldV) [Mass/Vol] 1.17 mmol/L Normal 1.08-1.30 [facility] Comment on above: Order Comment: Speci men Type: BLOOD SPECIMENOrdering Facility: [facility] Address: [address] [place] [address] Performed By: #### 1 995-0 ####[facility]PITALCLIA [id number] [address] [facility] Calcium.ionized adjusted to pH 7.4 (Bld) [Moles/Vol] 1.17 mmol/L Normal 1.08-1.30 [facility] Comment on above: Order Comment: Speci men Type: BLOOD SPECIMENOrdering Facility: [facility] Address: [address] [place] [address] Performed By: #### 1 995-0 ####[facility] LABORATORYCLIA [id number] [address] [place] Magnesium SerPl-mCncon 04-12 Magnesium [Mass/Vol] 1.9 mg/dL Normal 1.7-2.3 [facility] Comment on above: Order Comment: Speci men Type: BLOOD SPECIMENOrdering Facility: [facility] Address: [address] [place] [address] Performed By: #### 2 4321-2, 36656-5, 2777-1 ####[facility] LABORATORYCLIA [id number] [address] OF [facility] NURSING PROGon 04-12-2025 NURSING PROG Normal [facility] Phosphate SerPl-mCncon 04-12 Phosphate [Mass/Vol] 3.6 mg/dL Normal 2.7-4.8 [facility] Comment on above: Order Comment: Speci men Type: BLOOD SPECIMENOrdering Facility: [facility] Address: [address] [place] [address] Performed By: #### 2 4321-2, , 2776-11 ####[facility] LABORATORYCLIA [id number] [address] THERAPY NTon 04-12-2025 THERAPY NT Normal [facility] THERAPY NT Normal [facility] XR CHEST 1V FRONTALon 2024 XR CHEST 1V FRONTAL Normal [facility] Ammonia Plas-sCncon 04-11-20 25 Ammonia (P) [Moles/Vol] 48 umol/L Normal 16-60 [facility] Comment on above: Order Comment: Speci men Type: BLOOD SPECIMENOrdering Facility: [facility] Address: [address] [place] [address] Performed By: #### 1 6362-6 ####[facility] LABORATORYCLIA [id number] [address] [place] Basic metabolic 2000 panelon 04-11-2025 Anion gap [Moles/Vol] 5 mmol/L Low 8-15 [facility] Comment on above: Order Comment: Speci men Type: BLOOD SPECIMENOrdering Facility: [facility] Address: [address] [place] [address] Performed By: #### 2 777-1, 37495-3, ####[facility] LABORATORYCLIA [id number] [place] [address] [place] Calcium [Mass/Vol] 9.1 mg/dL Normal 8.5-10.2 [facility] Comment on above: Order Comment: Speci men Type: BLOOD SPECIMENOrdering Facility: [facility] Address: [address] [place] [address] Performed By: #### 2 777-1, 87409-6, ####[facility] LABORATORYCLIA [id number] [place] [address] [place] Chloride [Moles/Vol] 94 mmol/L Low 98-107 [facility] Comment on above: Order Comment: Speci men Type: BLOOD SPECIMENOrdering Facility: [facility] Address: [address] [place] [address] Performed By: #### 2 777-1, , ####[facility]ORATORYCLIA [id number] [place] [address] [place] CO2 [Moles/Vol] 32 mmol/L High 22-30 [facility] Comment on above: Order Comment: Speci men Type: BLOOD SPECIMENOrdering Facility: [facility] Address: [address] [place] [address] Performed By: #### 2 777-1, , ####[facility] LABORATORYCLIA [id number] [place] [id number] [place] Creatinine [Mass/Vol] 0.86 mg/dL Normal 0.73-1.22 [facility] Comment on above: Order Comment: Speci men Type: BLOOD SPECIMENOrdering Facility: [facility] Address: [address] [place] [address] Performed By: #### 2 777-1, 39744-9, ####[facility] LABORATORYCLIA [id number] [place] [address] [place] Creatinine and Glomerular filtration rate.predicted panel (S/P/Bld) 103 mL/min/1.73m??? Normal >=60 [facility] Comment on above: Order Comment: Sahil harper Type: BLOOD SPECIMENOrdering Facility: [facility] Address: [address] [place] [address] Result Comment: Autumn mated Glomerular Filtration Rate (eGFR) is calculated using the 2020 CKD-EPI creatinine equation. This equation utilizes serum creatinine, sex, and age as parameters. The creatinine assay has traceable calibration to isotope dilution-mass spectrometry. Refer to KDIGO guidelines for clinical interpretation. In patients with unstable renal function, e.g. those with acute kidney injury, the eGFR may not accurately reflect actual GFR. Performed By: #### 2 777-1, 13027-0, ####[facility] LABORATORYCLIA [id number] [place] [address] [place] Glucose [Mass/Vol] 128 mg/dL High 74-99 [facility] Comment on above: Order Comment: Sahil harper Type: BLOOD SPECIMENOrdering Facility: [facility] Address: [address] [place] [address] Result Comment: The [place] Diabetes Association (ADA) provides guidance for cutoff values for fasting glucose and random glucose. The ADA defines fasting as no caloric intake for at least 8 hours. Fasting plasma glucose results between 100 to 125 mg/dL indicate increased risk for diabetes (prediabetes).Fasting plasma glucose results greater than or equal to 126 mg/dL meet the criteria for diagnosis of diabetes. In the absence of unequivocal hyperglycemia, results should be confirmed by repeat testing. In a patient with classic symptoms of hyperglycemia or hyperglycemic crisis, random plasma glucose results greater than or equal to 200 mg/dL meet the criteria for diagnosis of diabetes.Reference: Standards of Medical Care in Diabetes 2016, [place] Diabetes Association. Diabetes Care. 2016.39(Suppl 1). Performed By: #### 2 777-1, 28572-4, ####[facility] LABORATORYCLIA [id number] [place] [id number] [place] Potassium [Moles/Vol] 4.6 mmol/L Normal 3.7-5.1 [facility] Comment on above: Order Comment: Speci men Type: BLOOD SPECIMENOrdering Facility: [facility] Address: [address] [place] [address] Performed By: #### 2 777-1, 49321-8, ####[facility] LABORATORYCLIA [id number] [address] [place] Sodium [Moles/Vol] 131 mmol/L Low 136-144 [facility] Comment on above: Order Comment: Speci men Type: BLOOD SPECIMENOrdering Facility: [facility] Address: [address] [place] [address] Performed By: #### 2 777-1, 71423-6, ####[facility] LABORATORYCLIA [id number] [address] [place] Urea nitrogen [Mass/Vol] 23 mg/dL Normal 9-24 [facility] Comment on above: Order Comment: Speci men Type: BLOOD SPECIMENOrdering Facility: [facility] Address: [address] [place] [address] Performed By: #### 2 777-1, , ####[facility] LABORATORYCLIA [id number] [address] [place] CASE MANAGEMon 04-11-2025 CASE MANAGEM Normal [facility] CBC panel Auto (Bld)on 04-11 Erythrocyte distribution width (RBC) [Ratio] 19.6 % High 11.5-15.0 [facility] Comment on above: Order Comment: Speci men Type: BLOOD SPECIMENOrdering Facility: [facility] Address: [address] [place] [address] Performed By: #### 5 8410-2 ####[facility] LABORATORYCLIA [id number] [address] [place] Hematocrit (Bld) [Volume fraction] 23.4 % Low 39.0-51.0 [facility] Comment on above: Order Comment: Speci men Type: BLOOD SPECIMENOrdering Facility: [facility] Address: [address] [place] [address] Performed By: #### 5 8410-2 ####[facility] LABORATORYCLIA [id number] [address] STATES OF [facility] Hemoglobin (Bld) [Mass/Vol] 7.7 g/dL Low 13.0-17.0 [facility] Comment on above: Order Comment: Speci men Type: BLOOD SPECIMENOrdering Facility: [facility] Address: [address] [place] [address] Performed By: #### 5 8410-2 ####[facility] LABORATORYCLIA [id number] [address] OF [facility] MCH (RBC) [Entitic mass] 37.2 pg High 26.0-34.0 [facility] Comment on above: Order Comment: Speci men Type: BLOOD SPECIMENOrdering Facility: [facility] Address: [address] [place] [address] Performed By: #### 5 8410-2 ####[facility] LABORATORYCLIA [id number] [address] MCHC (RBC) [Mass/Vol] 32.9 g/dL Normal 30.5-36.0 [facility] Comment on above: Order Comment: Speci men Type: BLOOD SPECIMENOrdering Facility: [facility] Address: [address] [place] [address] Performed By: #### 5 8410-2 ####[facility] LABORATORYCLIA [id number] [address] [facility] M[facility] (RBC) [Entitic vol] 113.0 fL High 80.0-100.0 [facility] Comment on above: Order Comment: Speci men Type: BLOOD SPECIMENOrdering Facility: [facility] Address: [address] [place] [address] Performed By: #### 5 8410-2 ####[facility] LABORATORYCLIA [id number] [address] Nucleated RBC (Bld) [#/Vol] 0.04 10*3/uL High <0.01 [facility] Comment on above: Order Comment: Speci men Type: BLOOD SPECIMENOrdering Facility: [facility] Address: [address] [place] [address] Performed By: #### 5 8410-2 ####[facility] LABORATORYCLIA [id number] [address] [place] Platelet mean volume (Bld) [Entitic vol] 10.7 fL Normal 9.0-12.7 [facility] Comment on above: Order Comment: Speci men Type: BLOOD SPECIMENOrdering Facility: [facility] Address: [address] [place] [address] Performed By: #### 5 8410-2 ####[facility] LABORATORYCLIA [id number] [address] [place] Platelets (Bld) [#/Vol] 73 10*3/uL Low 150-400 [facility] Comment on above: Order Comment: Speci men Type: BLOOD SPECIMENOrdering Facility: [facility] Address: [address] [place] [address] Result Comment: No c lot detected. Performed By: #### 5 8410-2 ####[facility]ORATORYCLIA [id number] [address] [place] RBC (Bld) [#/Vol] 2.07 10*6/uL Low 4.20-6.00 [facility] Comment on above: Order Comment: Speci men Type: BLOOD SPECIMENOrdering Facility: [facility] Address: [address] [place] [address] Performed By: #### 5 8410-2 ####[facility] LABORATORYCLIA [id number] [address] [place] WBC (Bld) [#/Vol] 7.14 10*3/uL Normal 3.70-11.00 [facility] Comment on above: Order Comment: Speci men Type: BLOOD SPECIMENOrdering Facility: [facility] Address: [address] [place], [place] [address] Performed By: #### 5 8410-2 ####[facility] LABORATORYCLIA [id number] [address] [place] CONSULT PROGon 04-11-2025 CONSULT PROG Normal [facility] Calcium.ionized [Moles/Vol]o n 04-11-2025 Calcium.ionized (BldV) [Mass/Vol] 1.23 mmol/L Normal 1.08-1.30 [facility] Comment on above: Order Comment: Speci men Type: BLOOD SPECIMENOrdering Facility: [facility] Address: [address] [place] [address] Performed By: #### 1 995-0 ####[facility]ORATORYCLIA [id number] [address] Calcium.ionized adjusted to pH 7.4 (Bld) [Moles/Vol] 1.23 mmol/L Normal 1.08-1.30 [facility] Comment on above: Order Comment: Speci men Type: BLOOD SPECIMENOrdering Facility: [facility] Address: [address] [place] [address] Performed By: #### 1 995-0 ####[facility] LABORATORYCLIA [id number] [address] [place] Magnesium SerPl-mCncon 04-11 Magnesium [Mass/Vol] 2.7 mg/dL High 1.7-2.3 [facility] Comment on above: Order Comment: Speci men Type: BLOOD SPECIMENOrdering Facility: [facility] Address: [address] [place] [address] Performed By: #### 2 777-1, 39422-3, 01344-1 ####[facility]ORATORYCLIA [id number] [place] [address] [place] Phosphate SerPl-mCncon 04-11 Phosphate [Mass/Vol] 3.0 mg/dL Normal 2.7-4.8 [facility] Comment on above: Order Comment: Speci men Type: BLOOD SPECIMENOrdering Facility: [facility] Address: [address] [place] [address] Performed By: #### 2 777-1, 60051-9, 47718-4 ####[facility]ORATORYCLIA [id number] [place] [address] [place] XR CHEST 1V FRONTALon 2024 XR CHEST 1V FRONTAL Normal [facility] CASE MANAGEMon 04-10-2025 CASE MANAGEM Normal [facility] CASE MGT INIT ASSESon 2024 CASE MGT INIT ASSES Normal [facility] CBC panel Auto (Bld)on 04-10 Erythrocyte distribution width (RBC) [Ratio] 20.4 % High 11.5-15.0 [facility] Comment on above: Order Comment: Speci men Type: BLOOD SPECIMENOrdering Facility: [facility] Address: [address] [place] [address] Performed By: #### 5 8410-2 ####[facility]ORATORYCLIA [id number] [place] [address] [place] Hematocrit (Bld) [Volume fraction] 24.1 % Low 39.0-51.0 [facility] Comment on above: Order Comment: Speci men Type: BLOOD SPECIMENOrdering Facility: [facility] Address: [address] [place] [address] Performed By: #### 5 8410-2 ####[facility]ORATORYCLIA [id number] [place] [address] [place] Hemoglobin (Bld) [Mass/Vol] 7.8 g/dL Low 13.0-17.0 [facility] Comment on above: Order Comment: Speci men Type: BLOOD SPECIMENOrdering Facility: [facility] Address: [address] [place] [address] Performed By: #### 5 8410-2 ####[facility] LABORATORYCLIA [id number] [place] [address] [place] MCH (RBC) [Entitic mass] 37.3 pg High 26.0-34.0 [facility] Comment on above: Order Comment: Speci men Type: BLOOD SPECIMENOrdering Facility: [facility] Address: [address] [place] [address] Performed By: #### 5 8410-2 ####[facility]ORATORYCLIA [id number] [address] [place] [facility] MCHC (RBC) [Mass/Vol] 32.4 g/dL Normal 30.5-36.0 [facility] Comment on above: Order Comment: Speci men Type: BLOOD SPECIMENOrdering Facility: [facility] Address: [address] [place] [address] Performed By: #### 5 8410-2 ####[facility]ORATORYCLIA [id number] [address] [place] MCV (RBC) [Entitic vol] 115.3 fL High 80.0-100.0 [facility] Comment on above: Order Comment: Speci men Type: BLOOD SPECIMENOrdering Facility: [facility] Address: [address] [place] [address] Performed By: #### 5 8410-2 ####[facility]ORATORYCLIA [id number] [address] Nucleated RBC (Bld) [#/Vol] 0.02 10*3/uL High <0.01 [facility] Comment on above: Order Comment: Speci men Type: BLOOD SPECIMENOrdering Facility: [facility] Address: [address] [place] [address] Performed By: #### 5 8410-2 ####[facility]ORATORYCLIA [id number] [address] [place] Platelet mean volume (Bld) [Entitic vol] 10.9 fL Normal 9.0-12.7 [facility] Comment on above: Order Comment: Speci men Type: BLOOD SPECIMENOrdering Facility: [facility] Address: [address] [place] [address] Performed By: #### 5 8410-2 ####[facility]ORATORYCLIA [id number] [address] [place] Platelets (Bld) [#/Vol] 65 10*3/uL Low 150-400 [facility] Comment on above: Order Comment: Speci men Type: BLOOD SPECIMENOrdering Facility: [facility] Address: [address] [place] [address] Performed By: #### 5 8410-2 ####[facility]ORATORYCLIA [id number] [place] [address] [place] RBC (Bld) [#/Vol] 2.09 10*6/uL Low 4.20-6.00 [facility] Comment on above: Order Comment: Speci men Type: BLOOD SPECIMENOrdering Facility: [facility] Address: [address] [place] [address] Performed By: #### 5 8410-2 ####[facility]ORATORYCLIA [id number] [address] OF [facility] WBC (Bld) [#/Vol] 6.34 10*3/uL Normal 3.70-11.00 [facility] Comment on above: Order Comment: Speci men Type: BLOOD SPECIMENOrdering Facility: [facility] Address: [address] [place] [address] Performed By: #### 5 8410-2 ####[facility]ORATORYCLIA [id number] [address] OF [facility] CNCOon 04-10-2025 CNCO Letter Text Normal [facility] CONSULT PROGon 04-10-2025 CONSULT PROG Normal [facility] Calcium.ionized [Moles/Vol]o n 04-10-2025 Calcium.ionized (BldV) [Mass/Vol] 1.28 mmol/L Normal 1.08-1.30 [facility] Comment on above: Order Comment: Speci men Type: BLOOD SPECIMENOrdering Facility: [facility] Address: [address] [place] [address] Performed By: #### 1 995-0 ####[facility]ORATORYCLIA [id number] [address] [place] Calcium.ionized adjusted to pH 7.4 (Bld) [Moles/Vol] 1.20 mmol/L Normal 1.08-1.30 [facility] Comment on above: Order Comment: Speci men Type: BLOOD SPECIMENOrdering Facility: [facility] Address: [address] [place] [address] Performed By: #### 1 995-0 ####[facility]ORATORYCLIA [id number] [place] [address] [place] Magnesium SerPl-mCncon 04-10 Magnesium [Mass/Vol] 1.5 mg/dL Low 1.7-2.3 [facility] Comment on above: Order Comment: Speci men Type: BLOOD SPECIMENOrdering Facility: [facility] Address: [address] [place] [address] Performed By: #### 1 9123-9, 41138-3 ####[facility]ORATORYCLIA [id number] [address] [place] Renal function 2000 panelon 04-10-2025 Albumin [Mass/Vol] 2.8 g/dL Low 3.9-4.9 [facility] Comment on above: Order Comment: Speci men Type: BLOOD SPECIMENOrdering Facility: [facility] Address: [address] [place] [address] Performed By: #### 1 9123-9, 66482-1 ####[facility]ORATORYCLIA [id number] [address] [place] Anion gap [Moles/Vol] 5 mmol/L Low 8-15 [facility] Comment on above: Order Comment: Speci men Type: BLOOD SPECIMENOrdering Facility: [facility] Address: [address] [place] [address] Performed By: #### 1 9123-9, 58597-8 ####[facility] LABORATORYCLIA [id number] [place] [id number] [place] Calcium [Mass/Vol] 9.2 mg/dL Normal 8.5-10.2 [facility] Comment on above: Order Comment: Speci men Type: BLOOD SPECIMENOrdering Facility: [facility] Address: [address] [place] [address] Performed By: #### 1 9123-9, 52758-3 ####[facility] LABORATORYCLIA [id number] [place] [address] [place] Chloride [Moles/Vol] 96 mmol/L Low 98-107 [facility] Comment on above: Order Comment: Speci men Type: BLOOD SPECIMENOrdering Facility: [facility] Address: [address] [place] [address] Performed By: #### 1 9123-9, 79558-5 ####[facility]ORATORYCLIA [id number] [place] [address] [place] CO2 [Moles/Vol] 31 mmol/L High 22-30 [facility] Comment on above: Order Comment: Speci men Type: BLOOD SPECIMENOrdering Facility: [facility] Address: [address] [place] [address] Performed By: #### 1 9123-9, 77176-6 ####[facility] LABORATORYCLIA [id number] [place] [address] [place] Creatinine [Mass/Vol] 1.10 mg/dL Normal 0.73-1.22 [facility] Comment on above: Order Comment: Speci men Type: BLOOD SPECIMENOrdering Facility: [facility] Address: [address] [place] [address] Performed By: #### 1 9123-9, 52761-7 ####[facility] LABORATORYCLIA [id number] [address] [place] Creatinine and Glomerular filtration rate.predicted panel (S/P/Bld) 80 mL/min/1.73m??? Normal >=60 [facility] Comment on above: Order Comment: Speci men Type: BLOOD SPECIMENOrdering Facility: [facility] Address: [address] [place] [address] Result Comment: Autumn mated Glomerular Filtration Rate (eGFR) is calculated using the 2020 CKD-EPI creatinine equation. This equation utilizes serum creatinine, sex, and age as parameters. The creatinine assay has traceable calibration to isotope dilution-mass spectrometry. Refer to KDIGO guidelines for clinical interpretation. In patients with unstable renal function, e.g. those with acute kidney injury, the eGFR may not accurately reflect actual GFR. Performed By: #### 1 9123-9, 63377-0 ####[facility] LABORATORYCLIA [id number] [place] [address] [place] Glucose [Mass/Vol] 161 mg/dL High 74-99 [facility] Comment on above: Order Comment: Sahil harper Type: BLOOD SPECIMENOrdering Facility: [facility] Address: [address] [place] [address] Result Comment: The [place] Diabetes Association (ADA) provides guidance for cutoff values for fasting glucose and random glucose. The ADA defines fasting as no caloric intake for at least 8 hours. Fasting plasma glucose results between 100 to 125 mg/dL indicate increased risk for diabetes (prediabetes).Fasting plasma glucose results greater than or equal to 126 mg/dL meet the criteria for diagnosis of diabetes. In the absence of unequivocal hyperglycemia, results should be confirmed by repeat testing. In a patient with classic symptoms of hyperglycemia or hyperglycemic crisis, random plasma glucose results greater than or equal to 200 mg/dL meet the criteria for diagnosis of diabetes.Reference: Standards of Medical Care in Diabetes 2016, [place] Diabetes Association. Diabetes Care. 2016.39(Suppl 1). Performed By: #### 1 9123-9, 39752-3 ####[facility] LABORATORYCLIA [id number] [place] [address] [place] Phosphate [Mass/Vol] 3.6 mg/dL Normal 2.7-4.8 [facility] Comment on above: Order Comment: Sahil harper Type: BLOOD SPECIMENOrdering Facility: [facility] Address: [address] [place] [address] Performed By: #### 1 9123-9, 34225-4 ####[facility] LABORATORYCLIA [id number] [place] [address] [place] Potassium [Moles/Vol] 5.1 mmol/L Normal 3.7-5.1 [facility] Comment on above: Order Comment: Speci men Type: BLOOD SPECIMENOrdering Facility: [facility] Address: [address] [place] [address] Performed By: #### 1 9123-9, 74670-0 ####[facility] LABORATORYCLIA [id number] [place] [address] [place] Sodium [Moles/Vol] 132 mmol/L Low 136-144 [facility] Comment on above: Order Comment: Speci men Type: BLOOD SPECIMENOrdering Facility: [facility] Address: [address] [place] [address] Performed By: #### 1 9123-9, 16375-0 ####[facility]ORATORYCLIA [id number] [address] [place] Urea nitrogen [Mass/Vol] 17 mg/dL Normal 9-24 [facility] Comment on above: Order Comment: Speci men Type: BLOOD SPECIMENOrdering Facility: [facility] Address: [address] [place] [address] Performed By: #### 1 9123-9, 88105-9 ####[facility] LABORATORYCLIA [id number] [place] [address] [place] THERAPY NTon 04-10-2025 THERAPY NT Normal [facility] US ASCITES SURVEYon 04-10-20 US ASCITES SURVEY Normal [facility] XR CHEST 1V FRONTALon 2024 XR CHEST 1V FRONTAL Normal [facility] Basic metabolic 2000 panelon 04-09-2025 Anion gap [Moles/Vol] 9 mmol/L Normal 8-15 [facility] Comment on above: Order Comment: Speci men Type: BLOOD SPECIMENOrdering Facility: [facility] Address: [address] [place] [address] Performed By: #### 2 4321-2, 2777-1, 76218-5 ####[facility] LABORATORYCLIA [id number] [place] [address] [place] Calcium [Mass/Vol] 8.6 mg/dL Normal 8.5-10.2 [facility] Comment on above: Order Comment: Speci men Type: BLOOD SPECIMENOrdering Facility: [facility] Address: [address] [place] [address] Performed By: #### 2 4321-2, 2776-11, ####[facility]ORATORYCLIA [id number] [place] [address] [place] Chloride [Moles/Vol] 97 mmol/L Low 98-107 [facility] Comment on above: Order Comment: Speci men Type: BLOOD SPECIMENOrdering Facility: [facility] Address: [address] [place] [address] Performed By: #### 2 4321-2, 2776-11, ####[facility]ORATORYCLIA [id number] [place] [address] [place] CO2 [Moles/Vol] 27 mmol/L Normal 22-30 [facility] Comment on above: Order Comment: Speci men Type: BLOOD SPECIMENOrdering Facility: [facility] Address: [address] [place] [address] Performed By: #### 2 4321-2, 2776-11, ####[facility]ORATORYCLIA [id number] [address] [place] Creatinine [Mass/Vol] 0.61 mg/dL Low 0.73-1.22 [facility] Comment on above: Order Comment: Speci men Type: BLOOD SPECIMENOrdering Facility: [facility] Address: [address] [place] [address] Performed By: #### 2 4321-2, 2776-11, ####[facility] LABORATORYCLIA [id number] [address] Creatinine and Glomerular filtration rate.predicted panel (S/P/Bld) 114 mL/min/1.73m??? Normal >=60 [facility] Comment on above: Order Comment: Speci men Type: BLOOD SPECIMENOrdering Facility: [facility] Address: [address] [place] [id number] Result Comment: Autumn mated Glomerular Filtration Rate (eGFR) is calculated using the 2020 CKD-EPI creatinine equation. This equation utilizes serum creatinine, sex, and age as parameters. The creatinine assay has traceable calibration to isotope dilution-mass spectrometry. Refer to KDIGO guidelines for clinical interpretation. In patients with unstable renal function, e.g. those with acute kidney injury, the eGFR may not accurately reflect actual GFR. Performed By: #### 2 4321-2, 27705-23, ####[facility]ORATORYCLIA [id number] [place] [address] [place] Glucose [Mass/Vol] 168 mg/dL High 74-99 [facility] Comment on above: Order Comment: Sahil harper Type: BLOOD SPECIMENOrdering Facility: [facility] Address: [address] [place] [address] Result Comment: The [place] Diabetes Association (ADA) provides guidance for cutoff values for fasting glucose and random glucose. The ADA defines fasting as no caloric intake for at least 8 hours. Fasting plasma glucose results between 100 to 125 mg/dL indicate increased risk for diabetes (prediabetes).Fasting plasma glucose results greater than or equal to 126 mg/dL meet the criteria for diagnosis of diabetes. In the absence of unequivocal hyperglycemia, results should be confirmed by repeat testing. In a patient with classic symptoms of hyperglycemia or hyperglycemic crisis, random plasma glucose results greater than or equal to 200 mg/dL meet the criteria for diagnosis of diabetes.Reference: Standards of Medical Care in Diabetes 2016, [place] Diabetes Association. Diabetes Care. 2016.39(Suppl 1). Performed By: #### 2 4321-2, 27705-23, ####[facility] LABORATORYCLIA [id number] [place] [address] [place] Potassium [Moles/Vol] 4.4 mmol/L Normal 3.7-5.1 [facility] Comment on above: Order Comment: Sahil harper Type: BLOOD SPECIMENOrdering Facility: [facility] Address: [address] [place] [id number] Performed By: #### 2 4321-2, 27705-23, ####[facility] LABORATORYCLIA [id number] [place] [address] [place] Sodium [Moles/Vol] 133 mmol/L Low 136-144 [facility] Comment on above: Order Comment: Speci men Type: BLOOD SPECIMENOrdering Facility: [facility] Address: [address] [place] [address] Performed By: #### 2 4321-2, 2776-11, ####[facility] LABORATORYCLIA [id number] [place] [address] [place] Urea nitrogen [Mass/Vol] 5 mg/dL Low 9-24 [facility] Comment on above: Order Comment: Speci men Type: BLOOD SPECIMENOrdering Facility: [facility] Address: [address] [place] [address] Performed By: #### 2 4321-2, 2776-11, ####[facility]ORATORYCLIA [id number] [address] [place] CBC panel Auto (Bld)on 04-09 Erythrocyte distribution width (RBC) [Ratio] 19.5 % High 11.5-15.0 [facility] Comment on above: Order Comment: Speci men Type: BLOOD SPECIMENOrdering Facility: [facility] Address: [address] [place] [address] Performed By: #### 5 8410-2 ####[facility] LABORATORYCLIA [id number] [place] [id number] [place] Hematocrit (Bld) [Volume fraction] 27.5 % Low 39.0-51.0 [facility] Comment on above: Order Comment: Speci men Type: BLOOD SPECIMENOrdering Facility: [facility] Address: [address] [place] [address] Performed By: #### 5 8410-2 ####[facility] LABORATORYCLIA [id number] [place] [id number] [place] Hemoglobin (Bld) [Mass/Vol] 8.9 g/dL Low 13.0-17.0 [facility] Comment on above: Order Comment: Speci men Type: BLOOD SPECIMENOrdering Facility: [facility] Address: [address] [place] [address] Performed By: #### 5 8410-2 ####[facility] LABORATORYCLIA [id number] [address] MCH (RBC) [Entitic mass] 36.9 pg High 26.0-34.0 [facility] Comment on above: Order Comment: Speci men Type: BLOOD SPECIMENOrdering Facility: [facility] Address: [address] [place] [address] Performed By: #### 5 8410-2 ####[facility]ORATORYCLIA [id number] [address] MCHC (RBC) [Mass/Vol] 32.4 g/dL Normal 30.5-36.0 [facility] Comment on above: Order Comment: Speci men Type: BLOOD SPECIMENOrdering Facility: [facility] Address: [address] [place] [address] Performed By: #### 5 8410-2 ####[facility] LABORATORYCLIA [id number] [address] MCV (RBC) [Entitic vol] 114.1 fL High 80.0-100.0 [facility] Comment on above: Order Comment: Speci men Type: BLOOD SPECIMENOrdering Facility: [facility] Address: [address] [place] [address] Performed By: #### 5 8410-2 ####[facility]ORATORYCLIA [id number] [address] Nucleated RBC (Bld) [#/Vol] 10*3/uL Normal <0.01 [facility] Comment on above: Order Comment: Speci men Type: BLOOD SPECIMENOrdering Facility: [facility] Address: [address] [place] [address] Performed By: #### 5 8410-2 ####[facility]ORATORYCLIA [id number] [place] [address] [place] Platelet mean volume (Bld) [Entitic vol] 10.2 fL Normal 9.0-12.7 [facility] Comment on above: Order Comment: Speci men Type: BLOOD SPECIMENOrdering Facility: [facility] Address: [address] [place] [address] Performed By: #### 5 8410-2 ####[facility] LABORATORYCLIA [id number] [place] [id number] [place] Platelets (Bld) [#/Vol] 69 10*3/uL Low 150-400 [facility] Comment on above: Order Comment: Speci men Type: BLOOD SPECIMENOrdering Facility: [facility] [facility] Address: [address] [place] [address] Performed By: #### 5 8410-2 ####[facility] LABORATORYCLIA [id number] [place] [address] [place] RBC (Bld) [#/Vol] 2.41 10*6/uL Low 4.20-6.00 [facility] Comment on above: Order Comment: Speci men Type: BLOOD SPECIMENOrdering Facility: [facility] Address: [address] [place] [address] Performed By: #### 5 8410-2 ####[facility] LABORATORYCLIA [id number] [place] [id number] [place] WBC (Bld) [#/Vol] 6.05 10*3/uL Normal 3.70-11.00 [facility] Comment on above: Order Comment: Speci men Type: BLOOD SPECIMENOrdering Facility: [facility] Address: [address] [place] [address] Performed By: #### 5 8410-2 ####[facility] LABORATORYCLIA [id number] [place] [id number] [place] Erythrocyte distribution width (RBC) [Ratio] 15.6 % High 11.5-15.0 [facility] Comment on above: Order Comment: Speci men Type: BLOOD SPECIMENOrdering Facility: [facility] Address: [address] [place] [address] Performed By: #### 5 8410-2 ####[facility] LABORATORYCLIA [id number] [address] Hematocrit (Bld) [Volume fraction] 25.3 % Low 39.0-51.0 [facility] Comment on above: Order Comment: Speci men Type: BLOOD SPECIMENOrdering Facility: [facility] Address: [address] [place] [address] Performed By: #### 5 8410-2 ####[facility] LABORATORYCLIA [id number] [address] Hemoglobin (Bld) [Mass/Vol] 8.1 g/dL Low 13.0-17.0 [facility] Comment on above: Order Comment: Speci men Type: BLOOD SPECIMENOrdering Facility: [facility] Address: [address] [place] [address] Performed By: #### 5 8410-2 ####[facility] LABORATORYCLIA [id number] [address] [place] [facility] MCH (RBC) [Entitic mass] 38.0 pg High 26.0-34.0 [facility] Comment on above: Order Comment: Speci men Type: BLOOD SPECIMENOrdering Facility: [facility] Address: [address] [place] [address] Performed By: #### 5 8410-2 ####[facility] LABORATORYCLIA [id number] [address] OF [facility] MCHC (RBC) [Mass/Vol] 32.0 g/dL Normal 30.5-36.0 [facility] Comment on above: Order Comment: Speci men Type: BLOOD SPECIMENOrdering Facility: [facility] Address: [address] [place] [address] Performed By: #### 5 8410-2 ####[facility] LABORATORYCLIA [id number] [address] MCV (RBC) [Entitic vol] 118.8 fL High 80.0-100.0 [facility] Comment on above: Order Comment: Speci men Type: BLOOD SPECIMENOrdering Facility: [facility] Address: [address] [place] [address] Performed By: #### 5 8410-2 ####[facility] LABORATORYCLIA [id number] [address] [place] Nucleated RBC (Bld) [#/Vol] 10*3/uL Normal <0.01 [facility] Comment on above: Order Comment: Speci men Type: BLOOD SPECIMENOrdering Facility: [facility] Address: [address] [place] [address] Performed By: #### 5 8410-2 ####[facility] LABORATORYCLIA [id number] [address] [place] Platelet mean volume (Bld) [Entitic vol] 10.3 fL Normal 9.0-12.7 [facility] Comment on above: Order Comment: Speci men Type: BLOOD SPECIMENOrdering Facility: [facility] Address: [address] [place] [address] Performed By: #### 5 8410-2 ####[facility] LABORATORYCLIA [id number] [address] [place] Platelets (Bld) [#/Vol] 74 10*3/uL Low 150-400 [facility] Comment on above: Order Comment: Speci men Type: BLOOD SPECIMENOrdering Facility: [facility] Address: [address] [place] [address] Result Comment: No c lot detected. Performed By: #### 5 8410-2 ####[facility] LABORATORYCLIA [id number] [address] [place] RBC (Bld) [#/Vol] 2.13 10*6/uL Low 4.20-6.00 [facility] Comment on above: Order Comment: Speci men Type: BLOOD SPECIMENOrdering Facility: [facility] Address: [address] [place] [address] Performed By: #### 5 8410-2 ####[facility] LABORATORYCLIA [id number] [address] [facility] WBC (Bld) [#/Vol] 3.32 10*3/uL Low 3.70-11.00 [facility] Comment on above: Order Comment: Speci men Type: BLOOD SPECIMENOrdering Facility: [facility] Address: [address] [place] [address] Performed By: #### 5 8410-2 ####[facility] LABORATORYCLIA [id number] [address] CONFIRM BLOOD TYPEon 025 ABO AB Normal [facility] Comment on above: Order Comment: Speci men Type: BLOOD SPECIMENOrdering Facility: [facility] Address: [address] [place] [address] Performed By: #### C ONABO ####[facility] BLOOD BANKCLIA [id number] [address] Rh Nom (Bld) Positive Normal [facility] Comment on above: Order Comment: Speci men Type: BLOOD SPECIMENOrdering Facility: [facility] Address: [address] [place] [address] Performed By: #### C ONABO ####[facility] BLOOD BANKCLIA [id number] [address] [place] CONSULTon 04-09-2025 CONSULT Normal [facility] Calcium.ionized [Moles/Vol]o n 04-09-2025 Calcium.ionized (BldV) [Mass/Vol] 1.17 mmol/L Normal 1.08-1.30 [facility] Comment on above: Order Comment: Speci men Type: BLOOD SPECIMENOrdering Facility: [facility] Address: [address] [place] [address] Performed By: #### 1 995-0 ####[facility] LABORATORYCLIA [id number] [address] Calcium.ionized adjusted to pH 7.4 (Bld) [Moles/Vol] 1.13 mmol/L Normal 1.08-1.30 [facility] Comment on above: Order Comment: Speci men Type: BLOOD SPECIMENOrdering Facility: [facility] Address: [address] [place] [address] Performed By: #### 1 995-0 ####[facility] LABORATORYCLIA [id number] [address] OF [facility] ED NOTEon 04-09-2025 ED NOTE HNO ID: [id number] Author: SHANIQUA RIDDLE RN Service: ? Author Type: Registered Nurse Type: ED Notes Filed: 04/09/2025 08:39 Note Text: Report to gabriela YING Normal [facility] ED NOTE Normal [facility] Magnesium SerPl-mCncon 04-09 Magnesium [Mass/Vol] 1.3 mg/dL Low 1.7-2.3 [facility] Comment on above: Order Comment: Speci men Type: BLOOD SPECIMENOrdering Facility: [facility] Address: [address] [place] [address] Performed By: #### 2 4321-2, 2777-1, 13649-2 ####[facility] LABORATORYCLIA [id number] [address] Phosphate SerPl-mCncon 04-09 Phosphate [Mass/Vol] 3.4 mg/dL Normal 2.7-4.8 [facility] Comment on above: Order Comment: Speci men Type: BLOOD SPECIMENOrdering Facility: [facility] Address: [address] [place] [address] Performed By: #### 2 4321-2, 2777-1, ####[facility] LABORATORYCLIA [id number] [address] OF [facility] STAPHYLOCOCCUS AUREUS AND MR SA SCREEN, PCR, NASALon 04-09-2025 S. aureus and MRSA panel MIKE+probe (Nose) Methicillin-SUSCEPTIBLE Staphylococcus aureus Detected Abnormal Not Detected [facility] Comment on above: Order Comment: Speci men Type: SWABOrdering Facility: [facility] Address: [address] [place] [address] Performed By: #### S APCR ####[facility] LABORATORYCLIA [id number] [place] [address] [place] XR CHEST 1V FRONTALon 2024 XR CHEST 1V FRONTAL Normal [facility] CBC W Auto Differential pane l (Bld)on 04-08-2025 Basophils (Bld) [#/Vol] 0.03 10*3/uL Normal <0.11 [facility] Comment on above: Order Comment: Speci men Type: BLOOD SPECIMENOrdering Facility: [facility] Address: [address] [place] [address] Performed By: #### 5 7021-8 ####[facility] LABORATORYCLIA [id number] [address] [place] Basophils/100 WBC (Bld) 0.7 % Normal [facility] Comment on above: Order Comment: Speci men Type: BLOOD SPECIMENOrdering Facility: [facility] Address: [address] [place] [address] Performed By: #### 5 7021-8 ####[facility] LABORATORYCLIA [id number] [place] [address] [place] Differential cell count method Nom (Bld) Auto Normal [facility] Comment on above: Order Comment: Speci men Type: BLOOD SPECIMENOrdering Facility: [facility] Address: [address] [place] [address] Performed By: #### 5 7021-8 ####[facility] LABORATORYCLIA [id number] [place] [address] [place] Eosinophils (Bld) [#/Vol] 0.04 10*3/uL Normal <0.46 [facility] Comment on above: Order Comment: Speci men Type: BLOOD SPECIMENOrdering Facility: [facility] Address: [address] [place] [address] Performed By: #### 5 7021-8 ####[facility] LABORATORYCLIA [id number] [address] Eosinophils/100 WBC (Bld) 0.9 % Normal [facility] Comment on above: Order Comment: Speci men Type: BLOOD SPECIMENOrdering Facility: [facility] Address: [address] [place] [address] Performed By: #### 5 7021-8 ####[facility] LABORATORYCLIA [id number] [address] [place] Erythrocyte distribution width (RBC) [Ratio] 15.0 % Normal 11.5-15.0 [facility] Comment on above: Order Comment: Speci men Type: BLOOD SPECIMENOrdering Facility: [facility] Address: [address] [place] [address] Performed By: #### 5 7021-8 ####[facility] LABORATORYCLIA [id number] [address] [place] Hematocrit (Bld) [Volume fraction] 30.7 % Low 39.0-51.0 [facility] Comment on above: Order Comment: Speci men Type: BLOOD SPECIMENOrdering Facility: [facility] Address: [address] [place] [address] Performed By: #### 5 7021-8 ####[facility] LABORATORYCLIA [id number] [address] [place] Hemoglobin (Bld) [Mass/Vol] 9.9 g/dL Low 13.0-17.0 [facility] Comment on above: Order Comment: Speci men Type: BLOOD SPECIMENOrdering Facility: [facility] Address: [address] [place] [address] Performed By: #### 5 7021-8 ####[facility] LABORATORYCLIA [id number] [address] [place] Immature granulocytes (Bld) [#/Vol] 0.05 10*3/uL Normal <0.10 [facility] Comment on above: Order Comment: Speci men Type: BLOOD SPECIMENOrdering Facility: [facility] Address: [address] [place] [address] Performed By: #### 5 7021-8 ####[facility] LABORATORYCLIA [id number] [address] Immature granulocytes/100 WBC (Bld) 1.1 % Normal [facility] Comment on above: Order Comment: Speci men Type: BLOOD SPECIMENOrdering Facility: [facility] Address: [address] [place] [address] Performed By: #### 5 7021-8 ####[facility] LABORATORYCLIA [id number] [address] Lymphocytes (Bld) [#/Vol] 0.66 10*3/uL Low 1.00-4.00 [facility] Comment on above: Order Comment: Speci men Type: BLOOD SPECIMENOrdering Facility: [facility] Address: [address] [place] [address] Performed By: #### 5 7021-8 ####[facility] LABORATORYCLIA [id number] [address] Lymphocytes/100 WBC (Bld) 15.1 % Normal [facility] Comment on above: Order Comment: Speci men Type: BLOOD SPECIMENOrdering Facility: [facility] Address: [address] [place] [address] Performed By: #### 5 7021-8 ####[facility] LABORATORYCLIA [id number] [address] [facility] MCH (RBC) [Entitic mass] 38.4 pg High 26.0-34.0 [facility] Comment on above: Order Comment: Speci men Type: BLOOD SPECIMENOrdering Facility: [facility] Address: [address] [place] [address] Performed By: #### 5 7021-8 ####[facility] LABORATORYCLIA [id number] [address] MCHC (RBC) [Mass/Vol] 32.2 g/dL Normal 30.5-36.0 [facility] Comment on above: Order Comment: Speci men Type: BLOOD SPECIMENOrdering Facility: [facility] Address: [address] [place] [address] Performed By: #### 5 7021-8 ####[facility] LABORATORYCLIA [id number] [address] [place] MCV (RBC) [Entitic vol] 119.0 fL High 80.0-100.0 [facility] Comment on above: Order Comment: Speci men Type: BLOOD SPECIMENOrdering Facility: [facility] Address: [address] [place] [address] Performed By: #### 5 7021-8 ####[facility] LABORATORYCLIA [id number] [address] [place] Monocytes (Bld) [#/Vol] 0.54 10*3/uL Normal <0.87 [facility] Comment on above: Order Comment: Speci men Type: BLOOD SPECIMENOrdering Facility: [facility] Address: [address] [place] [address] Performed By: #### 5 7021-8 ####[facility] LABORATORYCLIA [id number] [address] [place] Monocytes/100 WBC (Bld) 12.4 % Normal [facility] Comment on above: Order Comment: Speci men Type: BLOOD SPECIMENOrdering Facility: [facility] Address: [address] [place] [address] Performed By: #### 5 7021-8 ####[facility] LABORATORYCLIA [id number] [address] [place] Neutrophils (Bld) [#/Vol] 3.04 10*3/uL Normal 1.45-7.50 [facility] Comment on above: Order Comment: Speci men Type: BLOOD SPECIMENOrdering Facility: [facility] Address: [address] [place] [address] Performed By: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 that conforms to the NKF-ASN Task Force Recommendations. Performed By: #### 4 [id number] #### [facility] [address] [place] [address] Jeronimo Crowe M.D. [id number] EGFR 155 mL/min/1.73 m2 Normal >=60 [facility] Comment on above: Order Comment: [facility] has implemented the eGFR calculation approach that does not have a coefficient for race that conforms to the NKF-ASN Task Force Recommendations. Result Comment: Autumn mated GFR was calculated using the 2020 CKD-EPI creatinine equation. Performed By: #### 4 [id number] #### [facility] [address] [place], [place] [address] Jeronimo Crowe M.D. [id number] Glucose [Mass/Vol] 142 mg/dL High 65-99 [facility] Comment on above: Order Comment: [facility] has implemented the eGFR calculation approach that does not have a coefficient for race that conforms to the NKF-ASN Task Force Recommendations. Performed By: #### 4 [id number] #### [facility] [address] [address] [place], [place] [id number] Jeronimo Crowe M.D. [id number] HCO3 (Bld) [Moles/Vol] 26 mmol/L Normal 21-32 [facility] Comment on above: Order Comment: [facility] has implemented the eGFR calculation approach that does not have a coefficient for race that conforms to the NKF-ASN Task Force Recommendations. Performed By: #### [id number] #### [facility] [address] [place], [place] [id number] Jeronimo Crowe M.D. [id number] Potassium [Moles/Vol] 3.8 mmol/L Normal 3.5-5.1 [facility] Comment on above: Order Comment: [facility] has implemented the eGFR calculation approach that does not have a coefficient for race that conforms to the NKF-ASN Task Force Recommendations. Performed By: #### [id number] #### [facility] [address] [place] [address] Jeronimo Crowe M.D. [id number] Protein [Mass/Vol] 5.8 g/dL Low 6.0-8.0 [facility] Comment on above: Order Comment: [facility] has implemented the eGFR calculation approach that does not have a coefficient for race that conforms to the NKF-ASN Task Force Recommendations. Performed By: #### [id number] #### [facility] [address] [place] [address] Jeronimo Crowe M.D. [id number] Sodium [Moles/Vol] 133 mmol/L Low 135-145 [facility] Comment on above: Order Comment: [facility] has implemented the eGFR calculation approach that does not have a coefficient for race that conforms to the NKF-ASN Task Force Recommendations. Performed By: #### [id number] #### [facility] [address] [place] [address] Jeronimo Crowe M.D. [id number] Urea nitrogen [Mass/Vol] 6 mg/dL Low 8-25 [facility] Comment on above: Order Comment: [facility] has implemented the eGFR calculation approach that does not have a coefficient for race that conforms to the NKF-ASN Task Force Recommendations. Performed By: #### [id number] #### [facility] [address] [place] [address] Jeronimo Crowe M.D. [id number] Urea nitrogen/Creatinine [Mass ratio] 27.3 mg/mg High 10.0-20.0 [facility] Comment on above: Order Comment: [facility] has implemented the eGFR calculation approach that does not have a coefficient for race that conforms to the NKF-ASN Task Force Recommendations. Performed By: #### [id number] #### [facility] [address] Jeronimo Crowe M.D. [id number] Comprehensive metabolic 2000 panelOrdered By: Sarah Mehta on 03-15-2025 Albumin [Mass/Vol] 3.1 g/dL Low 3.2 - 5.2 g/dL [facility] ALP [Catalytic activity/Vol] 132 U/L 40 - 150 U/L [facility] ALT [Catalytic activity/Vol] 25 U/L 0 - 50 U/L [facility] Anion gap [Moles/Vol] 12 mmol/L 10 - 2 0 mmol/L [facility] AST [Catalytic activity/Vol] 61 U/L High 0 - 50 U/L [facility] Bilirubin [Mass/Vol] 13.4 mg/dL High 0.0 - 1 .3 mg/dL [facility] Calcium [Mass/Vol] 8.1 mg/dL Low 8.4 - 10. 2 mg/dL [facility] Chloride [Moles/Vol] 99 mmol/L 98 - 10 8 mmol/L [facility] Creatinine [Mass/Vol] 0.22 mg/dL Low 0.50 - 1.30 mg/dL [facility] GFR/1.73 sq M.predicted CKD-EPI (S/P/Bld) [Vol rate/Area] 155 - PINF [facility] Comment on above: Estimated GFR was ca lculated using the 2020 CKD-EPI creatinine equation. Glucose [Mass/Vol] 142 mg/dL High 65 - 99 mg/dL [facility] HCO3 [Moles/Vol] 26 mmol/L 21 - 32 mmol/L [facility] Interpretation and review of laboratory results Abnormal [facility] Potassium [Moles/Vol] 3.8 mmol/L 3.5 - 5.1 mmol/L [facility] Protein [Mass/Vol] 5.8 g/dL Low 6.0 - 8.0 g/dL [facility] Sodium [Moles/Vol] 133 mmol/L Low 135 - 145 mmol/L [facility] Urea nitrogen [Mass/Vol] 6 mg/dL Low 8 - 25 mg/dL [facility] Urea nitrogen/Creatinine [Mass ratio] 27.3 mg/mg High 10.0 - 20.0 [facility] has implemented the eGFR calculation approach that does not have a coefficient for race that conforms to the NKF-ASN Task Force Recommendations. [facility] INR Coag (PPP) [Relative chente e]on 03-15-2025 Interpretation and review of laboratory results Abnormal [facility] PT Coag (PPP) [Time] 35.7 s High [facility] During the induction phase of oral anticoagulation, the INR may not reflect the anticoagulation status of the patient. Therapeutic ranges for INR's are: Most clinical situations: INR 2.0-3.0 Mechanical Prosthetic Valve: INR 2.5-3.5 Critical: INR >5.0 [facility] Nongyn CytologyOrdered By: Simin Tyson on 03-15-2025 Case Report Medical Cytology Rep ort Case: [id number] Authorizing Provider: Daxa Rubio CNP Collected: 03/14/2025 09:33 AM Ordering Location: [facility] Received: 03/14/2025 12:32 PM Hospital Interventional Radiology Pathologist: Lourdes Tyson MD Specimen: Paracentesis, diag para [facility] Work Phone: Interpretation Specimen A Negative [facility] Work Phone: Pathology report gross observation Narrative x0plxJQvPJOoi3wpLGZctLLa ZzEwMzNcZnRuYmpcdWMxIHtc enGyIWpvvGnnZALiENCdGP1t yIvhsHx5qZexULYifyN0qHBf VFrhx4xeQIW5q0unqokhDQVi CRxtJl9odDLwgYoaTzShHIGf GQu0bR37FODbeZ5qsIMfULjd bgEnKNkodsQmixBhPqh4XIZ5 tMcnXVOgtjimOhG9QNrkVGPb ochbJWe6VDmtSTPfaKF9OLFp dUOsJ6HoEDDfON3vwsn7SBP4 SAlaMYQuRrM4GCNolGMgKZJw sCthVGhkk499VZZ0XtSoMXWb gsPrgBtdhB7rKaItROtoLcCu GACyXVCcDKAhlD98KXlea5Ad bmdlIGZsdWlkXHBhciAgXHBh ciAxIFNtZWFyIHNsaWRlLCBE tMFwWHV6dIqat9ByrO0gHKaw pCOiUXTtPYblzqBiZHMxv1eh ZGUsIFBhcCBzdGFpbmVkLFxw CNXhGPSRERqeLqqmQ9wem3l0 aCAxIEgmRSBzdGFpbmVkIHNs jNKoMMPzlb36GFV7QfTpc5U3 TNVjJwWmJELzVE8boAkjOTPh VP6iEOMqR0gcoT4glwq3JgLl ZLQhOkN7IZWqsxH1Ugs5OVFl JFynu2sox0OlJASaTVe3cBla KyIuTWMsi7abzaQrZeNaPJCo PCJfYPKnpTRtM964x5pgr6ix kbIfoNR2BXYoPZV9JKrvqbSb mcA6YSiklIAsSsM9HQjpxqSy SBbizoIrvxFsCxm8EEPkK716 NNY3zAwsd7piXYF0TWPeVKTj JaVoAo6qrRSrH306QBNvVPNK KMLnbBf6XMIqhhWxexJopVHO n073C428p7meLXGfchGlgPgI czpts7vwQ460FRNxoKHbgzQi CnXdDMYjnTBctGM1MGYyPC4b mgueAHdiDYkkRUPsiiF8DJEq sFDeL1MuCVUcHO9djfbzAUT9 VCxkXPWnZFT3EdTiBRSnt1Bx ucz0KnKonc8boh30LOM2w8Mh iJhfGGC2CED6IkFcQa7ejZTr SGAcZL2uYbWqgKKlCCArvy68 uDjbZAlxujSviR6bIaRuXP4v kJkon89uGNEtRX3enM1wud6g ibAsXFithLRerTP3xortTTK7 RBZschGzg2Las5mqReDxkbSd W6pmE5ViHTJqIVPmTXLrHuHd pyCoh5Brk7RksZDzcGx6a8ar ZQOxENMnzOmkd4qiRPN9PSOz J5J7zDUbf6wdYNppCUPpqVN7 ivP8CIBkrIJyP4ZzjS7fQAQf JD1qhxy8p9tqVRX0TCdaMYSv AuI6biK4EFAweLTrXEVteUqf HXgpn160BMH0GpQyPBUge1Lh C5SojNvpL97ihIjwD72oWHQi rTpnxR4frLoohJ5mAiKsGuIp YSebBLYqZCXajZLqUSI0lUTg ecWui3HpSlBbb1loQLxpl7mf jSg0GYmsxMLiOJQmiPhls8dp U4IayGWtBWMjDShoYYXsPDLs MjBcbGFuZzEwMzNcaGljaFxm VTobGnXrWUQbSEiwD5cpShLn Q7VmLZCnZyHquOqdKAMSrVDj nR5gqgURdh2jNIUdmJ0eRPRh UVSIknyoPNX6GLXmlnGhpeme IiMmPQFez8VxDTGvUUJ4NWAm gmIvc0jyQHXEYQVre2Vks6Fc MT1ilZq0SPheTGMqXLI4UV9i AF06OO5fwCQHqBDjzxGLw3Sx ZHUfvWWtIxGxNEFAJCP2NcQu NFxwbGFpblxmMVxmczMyXGxh wlpwTDUoYZhcT8izUhZoRJOe nFlnKNpnr0QkREXlIARgCmBi cGFyfX0= [facility] Work Phone: [facility] Work Phone: PT/INRon 03-15-2025 INR Coag (PPP) [Relative time] 3.5 {INR} High 0.8 - 1.1 [facility] INR Coag (PPP) [Relative time] 3.5 {INR} High 0.8-1.1 [facility] Comment on above: Order Comment: Charis henson the induction phase of oral anticoagulation, the INR may not reflect the anticoagulation status of the patient. Therapeutic ranges for INR's are:Most clinical situations: INR 2.0-3.0Mechanical Prosthetic Valve: INR 2.5-3.5Critical: INR >5.0 Performed By: #### L [id number] #### [facility] [address] [place] [address] Jeronimo Crowe M.D. [id number] PT Coag (PPP) [Time] 35.7 s High 11.8-14.3 [facility] Comment on above: Order Comment: Charis henson the induction phase of oral anticoagulation, the INR may not reflect the anticoagulation status of the patient. Therapeutic ranges for INR's are:Most clinical situations: INR 2.0-3.0Mechanical Prosthetic Valve: INR 2.5-3.5Critical: INR >5.0 Performed By: #### L [id number] #### [facility] [address] [place] [address] Jeronimo Crowe M.D. [id number] Tissue Examon 03-15-2025 Annotation comment [Interpretation] Narrative m9pwtPWrJUZtrSBsIFBcFKah afIbWOXgeXPaP1QbxunnKOoe VY6iES0ayWwuvDPehDHuLEWw SrBvp1oze043dVVwa5kqLSAH xseynJd9bDllG16ah7Q7Xabg X09ytJIsBVN3UZCvGDBlqKLn COPtVCP6ZGIuzLQvV9zpLNOm AO4iyjqhWDrjXAzqYEJmwCX3 NMUblMRjM7TpULCgVBlmLSUh isq8WkVbUk4upHPoxMvfGUtf NFRmICSfRFWfLGNkDkY6BPRv cAQirXApcDhijU0cPbBvHRUI ZYMbhKIhLC8vLQCrZUHdorWe VN7kWQBsRfRjzdZsHC9oJXFs o95jXQ6xFEIdHXTtXQL1ONCs GOQbcb0zOXDibT6dsJHzUFQr hJGpGyAspZVgMU0qR8UhfFNw utJ5BLWjAX0zzUDlQR4yAGNs IFJHZPHzBXIVCPE3QOrcFNFw eaQcoD32rh1uxJVohyYkc1Vy SGVsaWNvYmFjdGVyIHdhcyBw TPZpl9WdJFEcDAwjZOXbbTQy r4YnsONwUXNgGbMuPAJrnCOc OSCxL5h8odDlEVIiUZP1YPPm tSQpADNoY0i9ljLvMPUqFWS1 YGRrjKNcNSRsN9bnxZOwGYH4 GRYsCOKiYQQqHTI9EQSxH3mo ycIjvWesikZea1skfaOvjnQg XGNsYnJkcnJcYnJkcnNcYnJk cncxMFxjbGJyZHJiXGJyZHJz BVYiSSD0LCHvB2o8XKO2RKn7 WDYfFnZoW2phuXbkQBAcp2kl VWQrXkR9UTqaKXkyfJSsYQBp K1owwlXjbAnlmcEhn2dxluUp dzEwXGNsYnJkcmxcYnJkcnNc YnJkcncxMFxjbGJyZHJyXGJy BNDyZSDmOMG1KDXbH1kvnpKr KualgtHzh2bildGjerNnOPWs riCzyYYghKfhbKA2z6cbHVLj O4robLuPgJK6mBoyWSwsPPut bOWjSNBdM0qxucVpwKcdvkPl l4gfnjCkmgGcZEKoRcQrmbhf YnJkcnNcYnJkcncxMFxjbGJy OSSiBSVhJLAsCPUaMZA5YHOg F4zmcaIgZodotwScm0dwswPm dzEwXGNsdmVydGFsdFxjbGZ0 o8cySDTtK1jscUrPoRX1cICs DFNuC9AieKb0TwKeCEUgVwYo cnRcYnJkcnNcYnJkcncxMFxj bGJyZHJsXGJyZHJzXGJyZHJ3 RVNeC4qhutHxezwneiKek7gx cmRydzEwXGNsYnJkcmJcYnJk cnNcYnJkcncxMFxjbHZlcnRh qJVzO7owxBENpMT1kEMkW4p8 S4jcoHj6APcaSXJjdVq8WBtz RFxqKPKoRFmmsZIiIYIgDH20 qETaMIgbLhXqX4OjmTtvFZol EKUrxyRndC85PonyWibhC4uz O3OmeHkiIEXkBCalfXAaXIYv aWRlXGNlbGxccGFyZFxpbnRi uAHHAWP2zBSaHQC3EPidkQ1i FBJfoKTopb3rPHTliGadvT50 Aubxqb10WZFqc6uhOBqtl7Dq r8eqkVNsTUMhRqMrRRJqwXCj NRPiM4k4jpUqMKFmNYB4EMOm kRCbQTPgG9a7wsUrCAFfQPZ1 AXUytQHxCEEwI3yvlFUdZAW7 FOYtUHOfILFoKMJ4VMZoP1cr pdFcjFcypvSms8zzlhKfedUu XGNsYnJkcnJcYnJkcnNcYnJk cncxMFxjbGJyZHJiXGJyZHJz NHXjYRQ7IMOoS5k1OIN1RVc9 UODjGcSjS8coaQkiEJSiy8ok KVFpDtH0KZuxTBpvzXKrTBWf V7vntfMoyAatcsIkp9dpoiWx dzEwXGNsYnJkcmxcYnJkcnNc YnJkcncxMFxjbGJyZHJyXGJy ZUOxYMEfPFY1URKfB1rtsuBd RiggkeFtv7qesxMandWwNTVg qtCrlMHsrKwfuCJ0x8ccXGAg D7vmrZtYdIP6kVlnIAbnMAkn dOUxEDUsP7phsdRuuXelwuHc q9lnifYaovHlDIIjEnMrdsfl YnJkcnNcYnJkcncxMFxjbGJy LADiXEQsWOEvSCQnDNR3TMTv R9ehucEzLynvrsLxq7gztpWl dzEwXGNsdmVydGFsdFxjbGZ0 z4pdGCFfU4rlfOuSbSQ4aRKk EBMzA4JcyKp8ErFhBUBxKcMm cnRcYnJkcnNcYnJkcncxMFxj bGJyZHJsXGJyZHJzXGJyZHJ3 FLKzO5khqcObanidzhEwh2hy cmRydzEwXGNsYnJkcmJcYnJk cnNcYnJkcncxMFxjbHZlcnRh hNIwT0wnsEOZgEL1eIDvO0v7 W6nqoOy3KYexFPEqyOa4PJaf MFxwYXJkXGludGJsXGIwIEhl fMbkr0YyI2ZedsThpBebvall N5WieJytQBUiYPqmiMOuGJFy XGNlbGxccGFyZFxpbnRibCBJ bmRpdmlkdWFsXGNlbGxccGFy NUbeqnFhjTVGRWkmoOb9EWAe S5EmwUzljsGpdEpch1hnqFFb PBfxfvK1NDCcthAOl5MgB0R7 LJTwsXPki084py7tlpZesQ72 IGFwcHJvcHJpYXRlIGFjdGl2 iGZ6GtQKrTTxaRHcrQ8qQ1Av AKMnrMOmikAbyUS4ZKTedARm Xx2twMUuJXZ8NQEstkFxp0qd WALSSOYah3Qyc4CwEQ5ugFl2 ROinWDL5PeJdF5gdppWdirg6 IFJpdmVyIFJvYWQsIENvbHVt EeThQTICEVV3FfPvPI1mUTnb LSmYClDoQM9vNMPHKMehtGRs s4xry5LbQ6wxbIhjcRQ5UGOv p2XcJ37ympUebrAhSIAzry79 VIUaNwtnwRdiNFOrEu8vLo4s CZKbfoZlIZJ0LzKQNW3wkswv cAAlpXhflf6fIN2kgJ5jlOuh iL3cxEKwdZFpxGAbumYxLJIP CLLup7T0tjZ9p8UtXlemmXco PXMvOGNnhG0xcF0uctGrGCLk C4Avz84oz4iplRZqFuGPhQwx lbFrzX44jl6ioIVmr9Y4wCvm QmTrqfBbxj7naPT3NYa5QiVu OPf1PRBro38iSBhLHDyodLXi gDOzMS7eRKRjTHzlHGSmrsPo cb1pauIrCTRfUNCnE8Wkabln qIdybfU8FQZxTXVliOKucEqf UEDaOolrX7bvuwCRYJFpfCke WOEwg1CekM5ziTGGSLW8oIQu lp3qGFqtnLGlOFArBE3ehPJj YWGzPUExVMLvVXFyf2AnVEOp oc92GCLlVheokHnrXAGNPZFr h4QvWX7eLRTjaMrtJOGedU9t w2OuALZpe35fXPRpYPGUQGJf XM7hlzZok6ZnjoIhwToeAMI1 dRJpATW2IKX0pvF0gdGywaT2 qRAliXrmYLThMB5brthrnCER OKXzovQ9nXM1JjQHeJKuEUM8 HZR6ojNtsvKskBOcHDCua4Cq T1dohsiuKXlciLGepB3gXBWj ZYVfJPTuYURox4VqSEHiu1Tx KyNbvcNiOIOzEXBtMXIvlR78 WWV0lTrsbQoijwJvWT2bRCZe mnUgGUQbIZUnmX3mUSzvyvJg TZIyjlK0y7K4HMklWKGibzCs TmojDPL9lsPmejU9cMIeH5ld uwexGXlcWEGmh3DwzI8ibPDS kOXyn2EwaIGehSRSgEElKI7c bnRzIChDTElBKSBhcyBxdWFs cSNdWKIrsL6mkPNwMi2btQIu xWkdNQCpkFWcNGucvMdhP7vy xwcqCFtdqZQuc3PyjH4fxXK2 VYJ0yS5oLhMpZAgdAAiHHH8t SRVzo7HmtRJhdeEvQOBvUYin xhWtrTItLXgqLZItrIR6vQSj qJBieBEdC0P4hwFnDNXrOEIu JKMiPBEjiJH5e6Unn62boRFt IK3zZAe8DXviWEGpGVQwnAPu MZ2nneKePPX3zLRosulbUXgx x1JtbKZ2xY1owu4mPMpzfjE4 WJP8KHmewtOyl2VxHmOedxXb aYSmnjYlTR2tIKEpkHBinyQv PUI2GPNcOPBHWjUiUNUcm6Mw AB5cQJGyxRvoNFXenV9ub6Jj RNCgv62qFSg2tsAnRUDsb8Jq UM1sXAXkxRFyXWL1EETfq7Xt P3Ohs6HuCBAeHJEdmf0djyOi QOB9OM0pgY6fISThnIGkOAgx Vm9gKDOglpciM3BjioymGCIh yC1jVUWmNN1jYSCzO59zx2kx dEUbhQK5gIWbJNBXBBQctcZt aBwjUV5wnbSmUgXgdYPztT== [facility] Case Report Surgical Pathology Report Case: [id number] Authorizing Provider: Angella Yu MD Collected: 03/14/2025 11:27 AM Ordering Location: [facility] Received: 03/14/2025 12:45 PM Hospital Endoscopy Pathologist: Lourdes Tyson MD Specimen: Gastric, r/o hPylori [facility] Clinical information d0uclCIdHDVfyTQhMJT wMFxh grVwIWChaFNvR4PmixgyUZde AG7xYQ2fmGqsnFXoyRCyQWZx YzMzr0xtj346gETkw3ajAFII pctdvMm7qQstU03qp2B6Rrfl E0eoDPUpTQwvBOZtIXnouMOd SYy3AZVifNOgphCpCfQtJHYz gILanMQ8JAQaGH4kubzcOZag XHhqSAXlwzA4NQOpkRKkS3Po XGVhHU4kdhdaNJF9SCctXPMb RZE8TwOaDKSdr5Rfppg7NsTb cGFyZFxwbGFpblxmczIwIERl W74ufSByn2P0ATWfC5ebqwyf m7wqANHYKzXoINAcSEu1MU91 MCwgRVRPSCBhYnVzZSwgRjEw LjEwLiBccGFyXHBhclxjZjEg BU0wg7Jry9KqRpTYjR1ycU0l ECEdWbKcGp8OZHabFGX9eS5i sLvxqQVsXBM8DCEgKitshEM3 LlxjZjAgIFxwYXJ9 [facility] Pathology report final diagnosis Narrative i2uxkKHtALEzdESuKMYdKBni qlPvGAZsxFMyI5TcbhwpDZms PG7aKE3grFptxANyoCZrLDEo WvJqf9iom919lZScx9iuVSEF yblheJr8gIuzY32dn5H6Njrp T28afARyQEW4UMGyPNYvdANv FKIcHRB3EKKwtDJlL4ecQYBe XH2omtulCDqjOCcwYAWsoNE1 BPObzVDwG0FrIQBsCNdvURNh bkx8HgJpSb0rkIFouVkaSWul YXJkXHBsYWluXGZzMjBccGFy XHBhcmRcdHgzNjBcYlxmczIy YWfra2SohDMbIvvgfGY4BgYy sNOaOSYzhlmduBfyZBbkrP66 MtCwJ8PkfWTaYhThlCPhg8Tf y1i1eYJnPHZvPBTirYKtZ2im bmdlcyBhbmQgbWlsZCBjaHJv mvkdXHzlKaepyP8jlZzgby0c LPOunyffFWJlRD9gwU6gvM4f qEbfpI1ydPDtkIOmcHYjuGVs fsXbk8XrXLHvkFGbOuAqcKVh QUjsFL7rZ7C8wPGoHfDjDHAc clxwYXJcbGkwXGxpbjBcYjBc HlCiNKSYI0myF1rnEAceIJV7 [facility] Pathology report gross observation Narrative c4ovhTAhCSSpgDLuXRGmCUrc saIbBMYimAZcY1VtbfrxWCfk NA3vUW1fhEoavTRpnMLyDLHh StSwz4bjo659hUKdp5ibHRYK rvtpqBb9xLudH98mo0E6Ucff I5fdRRWtJOktBRGpAOdhgVYm TBj9BQSjiJUcuzHbDbCsDEVf iRWqfYV4AKTbGT9xisysQIzz HHaeDNPlbyY6RTFlxEPiZ3La BYSnAT5kfyziPYC7EBvvBZZm UJL7HxBvRALln0Qtpdy3ZlOx hNg8f1asRBTlMEVhqOxor9tc TSH2SFOghZIdL3pwsM2dIZEe QE4qsuurg3tfEPftRNtdAEGe xTW3pwK0VLAvaLSoJ2MwiK2g YXTpUWXnnvOwaZphiQ0tWnGm FSfrWgSbOgKeKSz1LCUdrO4c Zh7byBJbbS8rlAUfZQwkYHNs OSXvx3MmV6ViD2Frj9pwdFRm WOznBgwteMFdcrI8JFgFNHMN GMeJAiZoTO8aXBuXTzjDKLgX XmirBUHeFSgiqVHKNPpGA9ux bQRDXHquPoljPRM4kLS4cT49 DYCdNPDkdCXpOVjcO399WARk c3Rqe14bDUAWaNCwQHxqyYDj m2zpuORhMDfoSgynlOWmtiC2 XJoVPIHQDLaJWgVwBE5mBUyJ GepWOtP8YfjnYKG3YGpKKhgV Oxr3LGxPTYSqWlKuPZuajUqu oJv7i6mypDPht8r5DShiODY9 fVxwbGFpblxmczIwICIgXGNm MSBhbmQgZGVzaWduYXRlZCAi O3UxgKJmIlUsfA1vf2bdCTtr ZjAgYXJlIHRocmVlXGNmMSAg yDdwH3IqivyohxThG9mcQsPo ae7iKHWmHYZ2onCrQtWkR53q BTKZgQpfOX1kBpdtHHFxiBOn UZoCRl6MCtIbdDxgHJqcFJJe kIWfNYPlfrLtZ1Fha8SuIShq hUbhZXRdg78dfKXxOf8isHSd FSI4ClKBbCYjfwVdAHMsOZB2 qQ7xpIO0XWtba1OclYGgIN5t ToOpUBXAdGUkmDQcI7hwVee5 PQGxLz0cNMDDv8b8cGG7sfoi D5csLUXxDNUvhJEnpR== [facility] Pathology report microscopic observation Narrative Other stain h2jceBSqQLGwcETyPzIaLCJw WOKqy7xlNJSgpPVlJsWjYsTw JyHaEohjhPFgOSUnEdBhj3vi q933xFBod4vaOKCsNyC2bEQa UJHkvKCeX929ANDkHEjbu6cd y3KeHWTyoWWcr7M0NFBOnpvx rYf0aUqgT70ok5Y2AiaoZ8cg MGOgDNZiG8IhNB8pJOMbIgb2 OSR4BSA9LAHpJSQeZ8TyND5t IZWqsAEqRNu1x2dmzSmnAFJp UEU8d8hxRPwtojLiMF8dii5y pZz9z8xijoOjCTWlDIAyeYIY IXRxN6TqhPqrWy5iyMt5qZzr DnkkJRZ8Jsd7QR1ovd02tze5 cLheNIJmzcxkJxN2VKojMXHp hgwdDNt0FEcsSLLftLQ7WFUx pHEwP4KsOSGvPT0byix6QOE1 OMkmKNFlHxM5TMScnWYcNUOe pQapYSjad908NOH0TkWlDT6x K0Nhq9V3eU7hqYJmCRNanOAs YcXqYUBevu1ugBKsOYhfi6Ic ACD0jbG7vBBleZDmMSJdPD71 Kzqqy8FjHuslZKI9AHGwjwAr b8Jbx9wgZdPwiyAiL1tqK0Om YPEtMBOuTURlEdKbquXlo6Ht e6GqiMFkeIf0q3epKQSdGNUy nAivk3okIXA2OBMiD1Q0cQWz k4xuRXpzCHEbcQL7grT9ESBz dCDfD6OqwH6qISTtPI3wrxv5 y5phSYI7NUdnLENzIkO5jvQ8 AQKpuDVhZTNptTlkIGvgk954 ABA8KaZwYSIwj4WwR7YfnUyv L77viSmpM01eMVWsmUaohT1o uOlleL5yYtHtJsKzKPkefWen bGFpblxmMVxmczIwXGxhbmcx IAMhKAefD8vkClJiQTPpyDyg TZejd8KnKWZaRCXtSxTtCYwk fv2pP89abPEvQEujoBwtKBMn v86iuCJlkBOqFy5nfMVgDegz YXJ9 [facility] AFP TUMOR MARKERon AFP TUMOR MARKER 4.4 ng/mL Normal 0.0-15.0 [facility] Comment on above: Order Comment: Assay performed by Nora Rosine DXI Immunoassay. Performed By: #### L [id number] #### [facility] [address] [place] [id number] Jeronimo Crowe M.D. [id number] AFP Tumor MarkerOrdered By: Dayanna Martinez on 03-14-2025 AFP.tumor marker [Mass/Vol] 4.4 ng/mL 0.0 - 15.0 ng/mL [facility] Interpretation and review of laboratory results Normal [facility] Assay performed by Nora Rosine DXI Immunoassay. [facility] ALBUMIN, BODY FLUIDon 2024 ALBUMIN FLUID < Normal [facility] Comment on above: Order Comment: No es tablished reference range. Performed By: #### [id number] ####[facility] [address] [place] [address] Jeronimo Crowe M.D. [id number] Albumin (Body fld) [Mass/Vol ]Ordered By: Marcos Harden on 03-14-2025 No established refer ence range. [facility] Albumin, Body FluidOrdered B y: Marcos Harden on 03-14-2025 Albumin (Body fld) [Mass/Vol] g/dL g/dL [facility] BILIRUBIN, DIRECTon 03-14-20 25 Bilirubin.indirect [Mass/Vol] 7.3 mg/dL High 0.0-0.4 [facility] Comment on above: Performed By: #### L [id number] #### [facility] [address] [place], [place] [address] Jeronimo Crowe M.D. [id number] BODY FLUID AEROBIC AND ANAER OBIC CULTUREon 03-14-2025 BODY FLUID AEROBIC AND ANAEROBIC CULTURE CULTURE No Growth after 5 days GRAM STAIN RESULT No Organisms Seen Few WBC Moderate RBC Normal [facility] Comment on above: Performed By: #### L [id number] #### [facility] [address] [place], [place] [address] Jeronimo Crowe M.D. [id number] BODY FLUID CELL COUNT WITH D IFFERENTIALon 03-14-2025 APPEARANCE, FLUID Clear Normal [facility] Comment on above: Performed By: #### 4 [id number] #### [facility] [address] [place], [place] [address] Jeronimo Crowe M.D. [id number] COLOR, FLUID Yellow Normal [facility] Comment on above: Performed By: #### 4 [id number] #### [facility] [address] [place], [place] [address] Jeronimo Crowe M.D. [id number] LYMPHOCYTES, FLUID 22 % High 0-0 [facility] Comment on above: Performed By: #### [id number] #### [facility] [address] [place], [place] [address] Jeronimo Crowe M.D. [id number] MESO/MACRO, FLUID 53 % High 0-0 [facility] Comment on above: Result Comment: Meso thelial cells and/or macrophages. Performed By: #### 4 [id number] #### [facility] [address] [place] [address] Jeronimo Crowe M.D. [id number] MONOCYTES, FLUID 20 % High 0-0 [facility] Comment on above: Performed By: #### 4 [id number] #### [facility] [address] [place], [place] [address] Jeronimo Crowe M.D. [id number] NEUTROPHILS, FLUID 5 % Normal 0-25 [facility] Comment on above: Performed By: #### 4 [id number] #### [facility] [address] [place] [address] Jeronimo Crowe M.D. [id number] RBC, FLUID 2254 /mcL High 0-0 [facility] Comment on above: Performed By: #### 4 [id number] #### [facility] [address] [place] [address] Jeronimo Crowe M.D. [id number] WBC/NUC CELLS, FLUID 108 /mcL Normal 0-500 [facility] Comment on above: Result Comment: WBC/ Nuc cell count includes mesothelial and other non-WBC nucleated cells as reflected in the differential. Performed By: #### 4 [id number] #### [facility] [address] [place] [address] Jeronimo Crowe M.D. [id number] Bilirubin.direct [Mass/Vol]o n 03-14-2025 Bilirubin.conjugated [Mass/Vol] 7.3 mg/dL High 0.0 - 0.4 mg/dL [facility] Interpretation and review of laboratory results Abnormal [facility] Body Fluid Cell Count with D ifferentialOrdered By: Tony Robin on 03-14-2025 Appearance (Body fld) Clear [facility] Color (Body fld) Yellow [facility] Interpretation and review of laboratory results Abnormal [facility] Lymphocytes/100 WBC (Body fld) 22 % High 0 - 0 % [facility] Mesothelial cells/100 WBC (Body fld) 53 % High 0 - 0 % [facility] Comment on above: Mesothelial cells an d/or macrophages. Monocytes/100 WBC (Body fld) 20 % High 0 - 0 % [facility] Neutrophils/100 WBC (Body fld) 5 % 0 - 25 % [facility] Nucleated cells Auto (Body fld) [#/Vol] 108 [facility] Comment on above: WBC/Nuc cell count i ncludes mesothelial and other non-WBC nucleated cells as reflected in the differential. RBC Auto (Body fld) [#/Vol] 2254 [facility] CBCon 03-14-2025 AUTO NRBC 0.0 % Normal [facility] Comment on above: Performed By: #### L [id number] #### [facility] [address] [place], [place] [address] Jeronimo Crowe M.D. [id number] AUTO NRBC ABS COUNT 0.00 K/mcL Normal 0.00-0.00 [facility] Comment on above: Performed By: #### L [id number] #### [facility] [address] [place] [address] Jeronimo Crowe M.D. [id number] Erythrocyte distribution width (RBC) [Ratio] 14.0 % Normal 11.6-14.8 [facility] Comment on above: Performed By: #### L [id number] #### [facility] [address] [place] [address] Jeronimo Crowe M.D. [id number] Hematocrit (Bld) [Volume fraction] 29.2 % Low 41.0-53.0 [facility] Comment on above: Performed By: #### L [id number] #### [facility] [address] [place], [place] [address] Jeronimo Crowe M.D. [id number] Hemoglobin (Bld) [Mass/Vol] 9.8 g/dL Low 13.5-17.5 [facility] Comment on above: Performed By: #### L [id number] #### [facility] [address] [place], [place] [address] Jeronimo Crowe M.D. [id number] MCH (RBC) [Entitic mass] 38.6 pg High 26.0-34.0 [facility] Comment on above: Performed By: #### L [id number] #### [facility] [address] [place], [place] [address] Jeronimo Crowe M.D. [id number] MCV (RBC) [Entitic vol] 115.0 fL High 80.0-100.0 [facility] Comment on above: Performed By: #### Mack [id number] #### [facility] [address] [place] [address] Jeronimo Crowe M.D. [id number] MEAN CORPUSCULAR HEMOGLOBIN CONC 33.6 g/dL Normal 31.0-37.0 [facility] Comment on above: Performed By: #### Mack [id number] #### [facility] [address] [place] [address] Jeronimo Crowe M.D. [id number] Platelet mean volume (Bld) [Entitic vol] 10.1 fL Normal 9.4-12.4 [facility] Comment on above: Performed By: #### Mack [id number] #### [facility] [address] [place] [address] Jeronimo Crowe M.D. [id number] Platelets (Bld) [#/Vol] 86 10*3/uL Low 150-400 [facility] Comment on above: Performed By: #### Mack [id number] #### [facility] [address] [place] [address] Jeronimo Crowe M.D. [id number] RBC (Bld) [#/Vol] 2.54 10*6/uL Low 4.50-5.90 [facility] Comment on above: Performed By: #### Mack [id number] #### [facility] [address] [place], [place] [address]Sally Crowe M.D. [id number] WBC (Bld) [#/Vol] 3.12 10*3/uL Low 4.50-11.00 [facility] Comment on above: Performed By: #### Mack [id number] #### [facility] [address] [place], [place] [address] Jeronimo Crowe M.D. [id number] CBC panel Auto (Bld)on 03-14 Erythrocyte distribution width (RBC) [Entitic vol] 14 % 11.6 - 14.8 % [facility] Hematocrit (Bld) [Volume fraction] 29.2 % Low 41.0 - 53.0 % [facility] Hemoglobin (Bld) [Mass/Vol] 9.8 g/dL Low 13.5 - 17.5 g/dL [facility] Interpretation and review of laboratory results Abnormal [facility] MCH (RBC) [Entitic mass] 38.6 pg High 26.0 - 34.0 pg [facility] MCHC (RBC) [Mass/Vol] 33.6 g/dL 31.0 - 37.0 g/dL [facility] MCV (RBC) [Entitic vol] 115 fL High 80.0 - 100.0 fL [facility] Nucleated RBC (Bld) [#/Vol] 0 10*3/uL [facility] Nucleated RBC/100 WBC (Bld) [Ratio] 0 % [facility] Platelet mean volume (Bld) [Entitic vol] 10.1 fL 9.4 - 12.4 fL [facility] Platelets (Bld) [#/Vol] 86 10*3/uL Low [facility] RBC (Bld) [#/Vol] 2.54 10*6/uL Low [facility] WBC (Bld) [#/Vol] 3.12 10*3/uL Low [facility] COMPREHENSIVE METABOLIC PANE Romario 03-14-2025 Albumin [Mass/Vol] 2.2 g/dL Low 3.2-5.2 [facility] Comment on above: Order Comment: [facility] has implemented the eGFR calculation approach that does not have a coefficient for race that conforms to the NKF-ASN Task Force Recommendations. Performed By: #### [id number] #### [facility] [address] [place], [place] [address] Jeronimo Crowe M.D. [id number] ALP [Catalytic activity/Vol] 156 U/L High 40-150 [facility] Comment on above: Order Comment: [facility] has implemented the eGFR calculation approach that does not have a coefficient for race that conforms to the NKF-ASN Task Force Recommendations. Performed By: #### [id number] #### [facility] [address] [place] [address] Jeronimo Crowe M.D. [id number] ALT [Catalytic activity/Vol] 38 U/L Normal 0-50 U/L [facility] Comment on above: Order Comment: [facility] has implemented the eGFR calculation approach that does not have a coefficient for race that conforms to the NKF-ASN Task Force Recommendations. Performed By: #### [id number] #### [facility] [address] [place], [place] [id number] Jeronimo Crowe M.D. [id number] Anion gap [Moles/Vol] 12 mmol/L Normal 10-20 [facility] Comment on above: Order Comment: [facility] has implemented the eGFR calculation approach that does not have a coefficient for race that conforms to the NKF-ASN Task Force Recommendations. Performed By: #### [id number] #### [facility] [address] [place] [address] Jeronimo Crowe M.D. [id number] AST [Catalytic activity/Vol] 79 U/L High 0-50 U/L [facility] Comment on above: Order Comment: [facility] has implemented the eGFR calculation approach that does not have a coefficient for race that conforms to the NKF-ASN Task Force Recommendations. Performed By: #### [id number] #### [facility] [address] [place] [address] Jeronimo Crowe M.D. [id number] Bilirubin [Mass/Vol] 15.1 mg/dL High 0.0-1.3 [facility] Comment on above: Order Comment: [facility] has implemented the eGFR calculation approach that does not have a coefficient for race that conforms to the NKF-ASN Task Force Recommendations. Performed By: #### [id number] #### [facility] [address] [place] [address] Jeronimo Crowe M.D. [id number] Calcium [Mass/Vol] 8.4 mg/dL Normal 8.4-10.2 [facility] Comment on above: Order Comment: [facility] has implemented the eGFR calculation approach that does not have a coefficient for race that conforms to the NKF-ASN Task Force Recommendations. Performed By: #### 4 [id number] #### [facility] [address] [place] [address] Jeronimo Crowe M.D. [id number] Chloride [Moles/Vol] 99 mmol/L Normal 98-108 [facility] Comment on above: Order Comment: [facility] has implemented the eGFR calculation approach that does not have a coefficient for race that conforms to the NKF-ASN Task Force Recommendations. Performed By: #### 4 [id number] #### [facility] [address] [place] [address] Jeronimo Crowe M.D. [id number] Creatinine [Mass/Vol] 0.24 mg/dL Low 0.50-1.30 [facility] Comment on above: Order Comment: [facility] has implemented the eGFR calculation approach that does not have a coefficient for race that conforms to the NKF-ASN Task Force Recommendations. Result Comment: Spec imen Icteric Performed By: #### [id number] #### [facility] [address] [place] [address] Jeronimo Crowe M.D. [id number] EGFR 151 mL/min/1.73 m2 Normal >=60 [facility] Comment on above: Order Comment: [facility] has implemented the eGFR calculation approach that does not have a coefficient for race that conforms to the NKF-ASN Task Force Recommendations. Result Comment: Autumn mated GFR was calculated using the 2020 CKD-EPI creatinine equation. Performed By: #### [id number] #### [facility] [address] [place] [address] Jeronimo Crowe M.D. [id number] Glucose [Mass/Vol] 105 mg/dL High 65-99 [facility] Comment on above: Order Comment: [facility] has implemented the eGFR calculation approach that does not have a coefficient for race that conforms to the NKF-ASN Task Force Recommendations. Performed By: #### 4 [id number] #### [facility] [address] [place] [address] Jeronimo Crowe M.D. [id number] HCO3 (Bld) [Moles/Vol] 25 mmol/L Normal 21-32 [facility] Comment on above: Order Comment: [facility] has implemented the eGFR calculation approach that does not have a coefficient for race that conforms to the NKF-ASN Task Force Recommendations. Performed By: #### 4 [id number] #### [facility] [address] [place] [address] Jeronimo Crowe M.D. [id number] Potassium [Moles/Vol] 3.7 mmol/L Normal 3.5-5.1 [facility] Comment on above: Order Comment: [facility] has implemented the eGFR calculation approach that does not have a coefficient for race that conforms to the NKF-ASN Task Force Recommendations. Performed By: #### 4 [id number] #### [facility] [address] [place] [address] Jeronimo Crowe M.D. [id number] Protein [Mass/Vol] 6.1 g/dL Normal 6.0-8.0 [facility] Comment on above: Order Comment: [facility] has implemented the eGFR calculation approach that does not have a coefficient for race that conforms to the NKF-ASN Task Force Recommendations. Result Comment: Spec imen Icteric Performed By: #### 4 [id number] #### [facility] [address] [place] [address] Jeronimo Crowe M.D. [id number] Sodium [Moles/Vol] 132 mmol/L Low 135-145 [facility] Comment on above: Order Comment: [facility] has implemented the eGFR calculation approach that does not have a coefficient for race that conforms to the NKF-ASN Task Force Recommendations. Performed By: #### 4 [id number] #### [facility] [address] [place] [address] Jeronimo Crowe M.D. [id number] Urea nitrogen [Mass/Vol] 3 mg/dL Low 8-25 [facility] Comment on above: Order Comment: [facility] has implemented the eGFR calculation approach that does not have a coefficient for race that conforms to the NKF-ASN Task Force Recommendations. Performed By: #### 4 [id number] #### [facility] [address] [place] [address] Jeronimo Crowe M.D. [id number] Urea nitrogen/Creatinine [Mass ratio] 12.5 mg/mg Normal 10.0-20.0 [facility] Comment on above: Order Comment: [facility] has implemented the eGFR calculation approach that does not have a coefficient for race that conforms to the NKF-ASN Task Force Recommendations. Performed By: #### 4 [id number] #### [facility] [address] [place] [address] Jeronimo Crowe M.D. [id number] CONSULTon 03-14-2025 CONSULT ---- -------- Attestation signed by John Becerril MD at 03/14/2025 10:47 AM Gastroenterology/Hepatol ogy Resident Physician Attestation I have independently seen and examined the patient with the Resident Physician I have reviewed the available labs. I have reviewed the available imaging studies. Review of Systems: All remaining systems were reviewed and are negative except for those mentioned in the HPI Physical examination: CONSTITUTIONAL: AAO x 1 with asterixis, NAD HEENT: (+) icterus ABDOMEN: Flat, negative hepatosplenomegaly, soft and non-tender. SKIN: (+) jaundice I agree with the assessment and plan as outlined below with the following additions/exceptions: 55 y.o. 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 Hepatology is consulted for decompensated cirrhosis. MELD 3.0: 32 at 03/14/2025 5:56 AM MELD-Na: 31 at 03/14/2025 5:56 AM Calculated from: Serum Creatinine: 0.24 mg/dL (Using min of 1 mg/dL) at 03/14/2025 5:56 AM Serum Sodium: 132 mmol/L at 03/14/2025 5:56 AM Total Bilirubin: 15.1 mg/dL at 03/14/2025 5:56 AM Serum Albumin: 2.2 g/dL at 03/14/2025 5:56 AM INR(ratio): 3.1 at 03/14/2025 5:56 AM Age at listing (hypothetical): 55 years Sex: Male at 03/14/2025 5:56 AM PLAN: - Decompensated cirrhosis: Etiology thought due to ALD. Actively drinking. Follow MELD labs daily while in patient. Patient would not be a candidate for OLT evaluation given ongoing alcohol use despite diagnosis and following with local GI - Ascites: Recommend diagnostic/therapeutic paracentesis with fluid studies for cell count/diff, albumin and protein. If no evidence of SBP, can stop Ceftriaxone and will start diuretics. Recommend 2 gram low sodium diet and Nutrition consult for education. Hold diuretics. 25% albumin, 25 grams every 6 hours x 4 doses. Order cardiac echo. [Home dose diuretics: lasix 20 mg BID and spironolactone 25 mg BID] - Portal Hypertension: Plan for EGD today to screen for EV. EGD years ago per patient (no records, no results in [facility]), patient told it was normal. - HE: Grade 2 overt HE on admission with asterixis despite home lactulose. Recommend broad infectious eval. Continue lactulose titrated to 3-5 soft stools daily and improvement in mental status.Continue home lactulose titrated to 3-5 soft stools daily. Patient with recurrent overt HE despite lactulose monotherapy. Start Rifaximin 550 mg BID and send discharge Rx to [facility] on day 1 of admission to expedite Prior Authorization and Meds-to-Bed program. Write Rx for 90 day script to reduce likelihood of 30 day readmission for recurrent HE - Alcoholic Liver Disease (ALD): Actively drinking despite diagnosis and following with GI previously. PETH ordered. Extensive conversation regarding my concern that the patient's liver disease is due to alcohol. I recommended lifelong abstinence form alcohol as well as AOD counseling. Recommend Thiamine, Folate and close monitoring for withdrawal. For patients at high risk for severe withdrawal, recommend high dose Thiamine replacement 500 mg IV TID x 5 days followed by 100 mg daily. Recommend Phenobarb instead of CIWA for withdrawal. Recommend Naltrexone or Acamprosate to aid with cessation - Cellulitis: LLE cellulitis. On Keflex John Becerril MD -------- Resident Consult Note Patient Name: Aryan Valle : 1970 Admit Date: [id number] Assessment and Plan Patient is a 55 y.o. 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 Hepatology is consulted for decompensated cirrhosis. Decompensated Cirrhosis - Likely 2/2 alcohol, drinks 3 beers daily. At his most, was drinking 30- pack of beers/ day, hasn't been doing this for ~a decade now, slowly decreasing. No prior autoimmune workup. He states he follows with hepatology, Dr. Parr in [place] but is interested in establishing with [facility]. - Alcohol level elevated at 39 on admit. 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 No history of seizures from alcohol withdrawal. - Baseline weight around 210 pounds. - EV screen: He reports EGD multiple years ago that was normal however unable to see these records. Due for repeat EGD, likely plan to do during this admission. - HE: On home lactulose (more content not included)... Normal [facility] Comprehensive metabolic 2000 panelOrdered By: Suma Neil on 03-14-2025 Albumin [Mass/Vol] 2.2 g/dL Low 3.2 - 5.2 g/dL [facility] ALP [Catalytic activity/Vol] 156 U/L High 40 - 150 U/L [facility] ALT [Catalytic activity/Vol] 38 U/L 0 - 50 U/L [facility] Anion gap [Moles/Vol] 12 mmol/L 10 - 2 0 mmol/L [facility] AST [Catalytic activity/Vol] 79 U/L High 0 - 50 U/L [facility] Bilirubin [Mass/Vol] 15.1 mg/dL High 0.0 - 1 .3 mg/dL [facility] Calcium [Mass/Vol] 8.4 mg/dL 8.4 - 10. 2 mg/dL [facility] Chloride [Moles/Vol] 99 mmol/L 98 - 10 8 mmol/L [facility] Creatinine [Mass/Vol] 0.24 mg/dL Low 0.50 - 1.30 mg/dL [facility] Comment on above: Specimen Icteric GFR/1.73 sq M.predicted CKD-EPI (S/P/Bld) [Vol rate/Area] 151 - PINF [facility] Comment on above: Estimated GFR was ca lculated using the 2020 CKD-EPI creatinine equation. Glucose [Mass/Vol] 105 mg/dL High 65 - 99 mg/dL [facility] HCO3 [Moles/Vol] 25 mmol/L 21 - 32 mmol/L [facility] Interpretation and review of laboratory results Abnormal [facility] Potassium [Moles/Vol] 3.7 mmol/L 3.5 - 5.1 mmol/L [facility] Protein [Mass/Vol] 6.1 g/dL 6.0 - 8.0 g/dL [facility] Comment on above: Specimen Icteric Sodium [Moles/Vol] 132 mmol/L Low 135 - 145 mmol/L [facility] Urea nitrogen [Mass/Vol] 3 mg/dL Low 8 - 25 mg/dL [facility] Urea nitrogen/Creatinine [Mass ratio] 12.5 mg/mg 10.0 - 20.0 [facility] has implemented the eGFR calculation approach that does not have a coefficient for race that conforms to the NKF-ASN Task Force Recommendations. [facility] ECHOCARDIOGRAM COMPLETEon ECHOCARDIOGRAM COMPLETE Patient Info Name: ARYAN VALLE Age: 55 years : 1970 Gender: Male Ht: 180 cm Wt: 98 kg BSA: 2.23 m2 HR: 79 bpm BP: 93 / 54 mmHg Technical Quality: Technically difficult Exam Date: 03/14/2025 12:31 PM Patient Status: Inpatient Cigarette Making Examiner: Aryan Veras, JOEL, ZAHEER Exam Type: ECHOCARDIOGRAM COMPLETE Study Info Indications - Other R22.40 - Localized swelling, mass and lump, unspecified lower limb [facility] Referring Physician: [id number] Escobar DANIELLE, ; [id number] BMI: 29.99 kg/m2 Summary 1. Normal left ventricular chamber size, wall thickness, wall motion and systolic function. LVEF 66%. 2. The left ventricular diastolic function is normal. 3. Normal right ventricular size and systolic function. 4. No significant valvular abnormalities. 5. There is no pericardial effusion. 6. No prior study available for comparison. Procedure(s): Complete two-dimensional, color flow and Doppler transthoracic echocardiogram is performed. Left Ventricle Left ventricular chamber dimension is normal. Left ventricular systolic function is normal with an ejection fraction by Biplane Method of Discs of 66 %. Normal left ventricular mass. Left ventricular segmental wall motion is normal. The left ventricular diastolic function is normal. Right Ventricle Right ventricular size and systolic function are normal. Left Atria Left atrial chamber is normal with a left atrial volume index of 19 ml/m2 by BP MOD. Right Atria Right atrial chamber dimension is normal. Aortic Valve The aortic valve is trileaflet. There is mild aortic valve sclerosis. There is no aortic valve stenosis. There is no aortic valve regurgitation. Pulmonic Valve The pulmonic valve is not well visualized. There is no pulmonic valve stenosis. There is mild pulmonic regurgitation. Mitral Valve The mitral valve has normal leaflets. There is no mitral valve stenosis. There is mild mitral valve regurgitation. Tricuspid Valve The tricuspid valve leaflets are normal. There is no significant tricuspid valve stenosis. There is mild tricuspid valve regurgitation. RV systolic pressure could not be accurately estimated. Pericardium/Pleural There is no pericardial effusion. Inferior Vena Cava Inferior vena cava is not well visualized. Aorta The aortic measurements are indexed to age and body surface area. The aortic root is normal measuring 3.2 cm with an index of 1.4 cm/m2. The proximal ascending aorta is not well-visualized. Left Ventricular Outflow Tract Name Value Normal LVOT 2D LVOT Diameter 2.1 cm LVOT Doppler LVOT Peak Velocity 1.4 m/s LVOT Peak Gradient 7 mmHg LVOT Mean Gradient 4 mmHg LVOT VTI 29 cm LVOT VTI/AV VTI Ratio 1.1 LVOT Stroke Volume 99 ml LVOT Stroke Index 44.48 ml/m2 Pulmonic Valve Name Value Normal PV Regurgitation Doppler CA Peak Gradient 1 mmHg CA Peak End Diastolic Velocity 59 cm/s Mitral Valve Name Value Normal MV Doppler MV PHT 54 ms MV Area (PHT) 4.1 cm2 4.0-5.0 MV Diastolic Function MV E Peak Velocity 0.80 m/s MV A Peak Velocity 0.80 m/s MV E/A 1.0 MV Decel Time 185 ms MV Annular TDI MV Septal e' Velocity 10.2 cm/s >=8.0 MV E/e' (Septal) 7.8 <=8.0 MV Lateral e' Velocity 14.4 cm/s >=9.5 MV E/e' (Lateral) 5.5 <=8.0 MV e' Average 12.30 cm/s MV E/e' (Average) 6.7 <=13.5 Tricuspid Valve Name Value Normal TV Regurgitation Doppler TR Peak Velocity 2.47 m/s <=2.80 TR Peak Gradient 5 mmHg TV Annular TDI RV s' Velocity 0.1 m/s 0.1-0.2 Aorta Name Value Normal (more content not included)... Normal [facility] EKGon 03-14-2025 [facility] Echocardiogram CompleteOrder ed By: Truong Roque on 03-14-2025 Aortic valve area 3.49337 cm [facility] Work Phone: AV mean gradient 4 mmHg [facility] Work Phone: AV peak gradient 6.5536 mmHg [facility] Work Phone: EF [phone] % [facility] Work Phone: [facility] Work Phone: Echocardiogram Completeon Patient Info Name: ARYAN VALLE Age: 55 years : 1970 Gender: Male Ht: 180 cm Wt: 98 kg BSA: 2.23 m2 HR: 79 bpm BP: 93 / 54 mmHg Technical Quality: Technically difficult Exam Date: 03/14/2025 12:31 PM Patient Status: Inpatient Cigarette Making Examiner: Aryan Veras, RDCS, RVT Exam Type: ECHOCARDIOGRAM COMPLETE Study Info Indications - Other R22.40 - Localized swelling, mass and lump, unspecified lower limb Attending Physician: MATT, [facility] Referring Physician: [id number] DANIELLE, ; [id number] BMI: 29.99 kg/m2 Summary 1. Normal left ventricular chamber size, wall thickness, wall motion and systolic function. LVEF 66%. 2. The left ventricular diastolic function is normal. 3. Normal right ventricular size and systolic function. 4. No significant valvular abnormalities. 5. There is no pericardial effusion. 6. No prior study available for comparison. Procedure(s): Complete two-dimensional, color flow and Doppler transthoracic echocardiogram is performed. Left Ventricle Left ventricular chamber dimension is normal. Left ventricular systolic function is normal with an ejection fraction by Biplane Method of Discs of 66 %. Normal left ventricular mass. Left ventricular segmental wall motion is normal. The left ventricular diastolic function is normal. Right Ventricle Right ventricular size and systolic function are normal. Left Atria Left atrial chamber is normal with a left atrial volume index of 19 ml/m2 by BP MOD. Right Atria Right atrial chamber dimension is normal. Aortic Valve The aortic valve is trileaflet. There is mild aortic valve sclerosis. There is no aortic valve stenosis. There is no aortic valve regurgitation. Pulmonic Valve The pulmonic valve is not well visualized. There is no pulmonic valve stenosis. There is mild pulmonic regurgitation. Mitral Valve The mitral valve has normal leaflets. There is no mitral valve stenosis. There is mild mitral valve regurgitation. Tricuspid Valve The tricuspid valve leaflets are normal. There is no significant tricuspid valve stenosis. There is mild tricuspid valve regurgitation. RV systolic pressure could not be accurately estimated. Pericardium/Pleural There is no pericardial effusion. Inferior Vena Cava Inferior vena cava is not well visualized. Aorta The aortic measurements are indexed to age and body surface area. The aortic root is normal measuring 3.2 cm with an index of 1.4 cm/m2. The proximal ascending aorta is not well-visualized. Left Ventricular Outflow Tract Name Value Normal LVOT 2D LVOT Diameter 2.1 cm LVOT Doppler LVOT Peak Velocity 1.4 m/s LVOT Peak Gradient 7 mmHg LVOT Mean Gradient 4 mmHg LVOT VTI 29 cm LVOT VTI/AV VTI Ratio 1.1 LVOT Stroke Volume 99 ml LVOT Stroke Index 44.48 ml/m2 Pulmonic Valve Name Value Normal PV Regurgitation Doppler CA Peak Gradient 1 mmHg CA Peak End Diastolic Velocity 59 cm/s Mitral Valve Name Value Normal MV Doppler MV PHT 54 ms MV Area (PHT) 4.1 cm2 4.0-5.0 MV Diastolic Function MV E Peak Velocity 0.80 m/s MV A Peak Velocity 0.80 m/s MV E/A 1.0 MV Decel Time 185 ms MV Annular TDI MV Septal e' Velocity (more content not included)... FUJI SYNAPSE CV Truong Roque MD - 03/14/2025 Patient Info Name: ARYAN YOLIS VALLE Age: 55 years : 1970 Gender: Male Ht: 180 cm Wt: 98 kg BSA: 2.23 m2 HR: 79 bpm BP: 93 / 54 mmHg Technical Quality: Technically difficult Exam Date: 03/14/2025 12:31 PM Patient Status: Inpatient Cigarette Making Examiner: Eda, Aryan, JOEL, RVT Exam Type: ECHOCARDIOGRAM COMPLETE Study Info Indications - Other R22.40 - Localized swelling, mass and lump, unspecified lower limb [facility]ending Phys[facility] Referring Physician: [id number] Escobar DANIELLE, ; [id number] BMI: 29.99 kg/m2 Summary 1. Normal left ventricular chamber size, wall thickness, wall motion and systolic function. LVEF 66%. 2. The left ventricular diastolic function is normal. 3. Normal right ventricular size and systolic function. 4. No significant valvular abnormalities. 5. There is no pericardial effusion. 6. No prior study available for comparison. Procedure(s): Complete two-dimensional, color flow and Doppler transthoracic echocardiogram is performed. Left Ventricle Left ventricular chamber dimension is normal. Left ventricular systolic function is normal with an ejection fraction by Biplane Method of Discs of 66 %. Normal left ventricular mass. Left ventricular segmental wall motion is normal. The left ventricular diastolic function is normal. Right Ventricle Right ventricular size and systolic function are normal. Left Atria Left atrial chamber is normal with a left atrial volume index of 19 ml/m2 by BP MOD. Right Atria Right atrial chamber dimension is normal. Aortic Valve The aortic valve is trileaflet. There is mild aortic valve sclerosis. There is no aortic valve stenosis. There is no aortic valve regurgitation. Pulmonic Valve The pulmonic valve is not well visualized. There is no pulmonic valve stenosis. There is mild pulmonic regurgitation. Mitral Valve The mitral valve has normal leaflets. There is no mitral valve stenosis. There is mild mitral valve regurgitation. Tricuspid Valve The tricuspid valve leaflets are normal. There is no significant tricuspid valve stenosis. There is mild tricuspid valve regurgitation. RV systolic pressure could not be accurately estimated. Pericardium/Pleural There is no pericardial effusion. Inferior Vena Cava Inferior vena cava is not well visualized. Aorta The aortic measurements are indexed to age and body surface area. The aortic root is normal measuring 3.2 cm with an index of 1.4 cm/m2. The proximal ascending aorta is not well-visualized. Left Ventricular Outflow Tract Name Value Normal LVOT 2D LVOT Diameter 2.1 cm LVOT Doppler LVOT Peak Velocity 1.4 m/s LVOT Peak Gradient 7 mmHg LVOT Mean Gradient 4 mmHg LVOT VTI 29 cm LVOT VTI/AV VTI Ratio 1.1 LVOT Stroke Volume 99 ml LVOT Stroke Index 44.48 ml/m2 Pulmonic Valve Name Value Normal PV Regurgitation Doppler CA Peak Gradient 1 mmHg CA Peak End Diastolic Velocity 59 cm/s Mitral Valve Name Value Normal MV Doppler MV PHT 54 ms MV Area (PHT) 4.1 cm2 4.0-5.0 MV Diastolic Function MV E Peak Velocity 0.80 m/s MV A Peak Velocity 0.80 m/s MV E/A 1.0 MV Decel Time 185 ms MV Annular TDI MV Septal e' Velocity 10.2 cm/s >=8.0 MV E/e' (Septal) 7.8 <=8.0 MV Lateral e' Velocity 14.4 cm/s >=9.5 MV E/e' (Lateral) 5.5 <=8.0 MV e' Average 12.30 cm/s MV E/e' (Average) 6.7 <=13.5 Tricuspid Valve Name Value Normal TV Regurgitation Doppler TR Peak Velocity 2.47 m/s <=2.80 TR Peak Gradient 5 mmHg TV Annular TDI RV s' Velocity 0.1 m/s 0.1-0.2 Aorta ----- (more content not included)... [facility] Endoscopy, Esophaguson 03-14 [facility] HEPATITIS A ANTIBODY, IGMon 03-14-2025 HEPATITIS A IGM ANTIBODY Negative Normal Negative [facility] Comment on above: Order Comment: Test performed using Pepper HOLLAND immunoassay system Performed By: #### [id number] #### [facility] [address] [place] [address] Jeronimo Crowe M.D. [id number] HEPATITIS A ANTIBODY,TOTALon 03-14-2025 HEPATITIS A TOTAL ANTIBODY Positive Abnormal Negative [facility] Comment on above: Order Comment: Test performed using Pepper HOLLAND immunoassay system Performed By: #### L [id number] #### [facility] [address] [place] [address] Jeronimo Crowe M.D. [id number] HEPATITIS B CORE ANTIBODY, T OTALon 03-14-2025 HEPATITIS B CORE TOTAL ANTIBODY Negative Normal Negative [facility] Comment on above: Order Comment: Test performed using Pepper HOLLAND immunoassay system Performed By: #### [id number] #### [facility] [address] [place], [place] [id number] Jeronimo Crowe M.D. [id number] HEPATITIS B SURFACE ANTIBODY on 03-14-2025 HEPATITIS B SURFACE ANTIBODY Negative Normal Negative [facility] Comment on above: Order Comment: Test performed using Pepper HOLLAND immunoassay system Performed By: #### [id number] #### [facility] [address] [place], [place] [address] Jeronimo Crowe M.D. [id number] HEPATITIS B SURFACE ANTIGENo n 03-14-2025 HEPATITIS B SURFACE ANTIGEN Negative Normal Negative [facility] Comment on above: Order Comment: Test performed using Pepper HOLLAND immunoassay system Performed By: #### [id number] ####[facility] [address] [place] [address] Jeronimo Crowe M.D. [id number] HEPATITIS C ANTIBODYon 03-14 HEPATITIS C ANTIBODY Negative Normal Negative [facility] Comment on above: Order Comment: Test performed using Pepper HOLLAND immunoassay system Performed By: #### 4 [id number] #### [facility] [address] [place], [place] [address] Jeronimo Crowe M.D. [id number] Hepatitis A Antibody, IgMon 03-14-2025 HAV IgM Ql (S) Negative Negative [facility] Interpretation and review of laboratory results Normal [facility] Test performed using Pepper HOLLAND immunoassay system [facility] Hepatitis A Antibody, Totalo n 03-14-2025 HAV Ab Ql (S) Positive Abnormal Negative [facility] Interpretation and review of laboratory results Abnormal [facility] Hepatitis B Core Antibody, T otalon 03-14-2025 HBV core Ab Ql (S) Negative Negative [facility] Hepatitis B Surface Antibody on 03-14-2025 HBV surface Ab Ql (S) Negative Negative [facility] Hepatitis B Surface Antigeno n 03-14-2025 HBV surface Ag Ql (S) Negative Negative [facility] Hepatitis C Antibodyon 03-14 HCV Ab Ql (S) Negative Negative [facility] INR Coag (PPP) [Relative chente e]on 03-14-2025 Interpretation and review of laboratory results Abnormal [facility] PT Coag (PPP) [Time] 32.[address] [facility] During the induction phase of oral anticoagulation, the INR may not reflect the anticoagulation status of the patient. Therapeutic ranges for INR's are: Most clinical situations: INR 2.0-3.0 Mechanical Prosthetic Valve: INR 2.5-3.5 Critical: INR >5.0 [facility] MAGNESIUM LEVELon 03-14-2025 Magnesium [Mass/Vol] 1.8 mg/dL Normal 1.6-2.4 [facility] Comment on above: Performed By: #### [id number] #### [facility] [address] [place], [place] [address] Jeronimo Crowe M.D. [id number] Magnesiumon 03-14-2025 Magnesium [Mass/Vol] 1.8 mg/dL 1.6 - 2 .4 mg/dL [facility] Magnesium [Mass/Vol]on 03-14 Interpretation and review of laboratory results Normal [facility] NONGYN CYTOLOGYon 03-14-2025 NONGYN CYTOLOGY Medical Cytology Rep ort Case: [id number] Authorizing Provider: Daxa Rubio CNP Collected: 03/14/2025 09:33 AM Ordering Location: [facility] Received: 03/14/2025 12:32 PM Hospital Interventional Radiology Pathologist: Lourdes Tyson MD Specimen: Paracentesis, diag para Negative for malignant cells at 1225 EDT 1200 mL cloudy orange fluid 1 Smear slide, Diff-Quik stained, 1 ThinPrep slide, Pap stained, 1 Cellblock with 1 H&E stained slide Specimen Processing and Primary Screening performed at: [facility] - [address] [place] [address] Comment on above: Performed By: #### [id number] #### [facility] [address] [place] [address] Jeronimo Crowe M.D. [id number] No Panel Informationon 03-14 Interpretation and review of laboratory results Normal [facility] Test performed using Pepper HOLLAND immunoassay system [facility] No Panel InformationOrdered By: Suma Neil on 03-14-2025 [facility] PROTEIN, BODY FLUIDon 2024 PROTEIN FLUID 0.9 g/dL Normal [facility] Comment on above: Order Comment: No es tablished reference range. Performed By: #### L [id number] #### [facility] [address] [place] [address] Jeronimo Crowe M.D. [id number] PT/INRon 03-14-2025 INR Coag (PPP) [Relative time] 3.1 {INR} High 0.8 - 1.1 [facility] INR Coag (PPP) [Relative time] 3.1 {INR} High 0.8-1.1 [facility] Comment on above: Order Comment: Charis henson the induction phase of oral anticoagulation, the INR may not reflect the anticoagulation status of the patient. Therapeutic ranges for INR's are:Most clinical situations: INR 2.0-3.0Mechanical Prosthetic Valve: INR 2.5-3.5Critical: INR >5.0 Performed By: #### L [id number] #### [facility] [address] [place] [address] Jeronimo Crowe M.D. [id number] PT Coag (PPP) [Time] 32.5 s High 11.8-14.3 [facility] Comment on above: Order Comment: Charis henson the induction phase of oral anticoagulation, the INR may not reflect the anticoagulation status of the patient. Therapeutic ranges for INR's are:Most clinical situations: INR 2.0-3.0Mechanical Prosthetic Valve: INR 2.5-3.5Critical: INR >5.0 Performed By: #### L [id number] #### [facility] [address] [place], [place] [address] Jeronimo Crowe M.D. [id number] Protein (Body fld) [Mass/Vol ]on 03-14-2025 No established refer ence range. [facility] Protein, Body Fluidon 2024 Protein (Body fld) [Mass/Vol] 0.9 g/dL [facility] TISSUE EXAMon 03-14-2025 TISSUE EXAM Surgical Pathology Report Case: [id number] Authorizing Provider: Angella Yu MD Collected: 03/14/2025 11:27 AM Ordering Location: [facility] Received: 03/14/2025 12:45 PM Hospital Endoscopy Pathologist: Lourdes Tyson MD Specimen: Gastric, r/o hPylori Gastric biopsy: Gastric mucosa with edematous changes and mild chronic inflammation. An immunohistochemical stain for Helicobacter is negative. CSL/gld at 1217 EDT Because of the presence of inflammation and the fact that no definite Helicobacter organisms were noted on the H and E stain, an immunostain for Helicobacter was performed. Antibody/Reagent Block Slide Result (staining pattern) Helicobacter pylori A1 Individual Negative Notice: All controls show appropriate activity. The technical component was performed at [facility], [address] [place] [address]. The HER2 and ER immunohistochemistry protocols are approved by the U.S. Food and Drug Administration. Immunohistochemical and OSMAR assays use biotin-free polymer detection system. Other immunophenotyping or in-situ hybridization (OSMAR) tests and their performance characteristics were determined by [facility]. They have not been cleared or approved by the US Food and Drug Administration. The FDA does not require these tests to go through premarket FDA review. These tests are used for clinical purposes. These should not be regarded as investigational or for research. This laboratory is certified under the Clinical Laboratory Improvement Amendments (CLIA) as qualified to perform high complexity clinical laboratory testing. The IDH-1 test uses a reagent labeled by the tunnel drier operator as research use only and it is used per tunnel drier operator's instructions. This test has not been cleared or approved by the U.S. Food and Drug Administration. Its performance characteristics were determined by [facility] in a manner consistent with CLIA requirements. Decompensated cirrhosis, K72.90, K74.60, ETOH abuse, F10.10. Endoscopic Finding(s): R/O H. pylori, maneuver-biopsy. Received in formalin labeled Aryan Valle and designated gastric biopsy are three piece(s) ranging from 0.1 to 0.4 cm. All M/1. XJW/XJS/pkp Gross examination performed at: [facility] - [address] [place] [address] Microscopic examination is performed. Normal [facility] Comment on above: Performed By: #### [id number] #### [facility] [address] [place] [address] Jeronimo Crowe M.D. [id number] ALCOHOL, [facility] 5 ALCOHOL MEDICAL 39.0 mg/dL High <10.0 [facility] Comment on above: Performed By: #### 4 [id number] #### [facility] [address] [place] [address] Jeronimo Crowe M.D. [id number] Alcohol, [facility] 5 Ethanol [Mass/Vol] 39 mg/dL High NINF - 10 .0 mg/dL [facility] BASIC METABOLIC PANELon - Anion gap [Moles/Vol] 14 mmol/L Normal 10-20 [facility] Comment on above: Order Comment: [facility] has implemented the eGFR calculation approach that does not have a coefficient for race that conforms to the NKF-ASN Task Force Recommendations. Performed By: #### [id number] ####[facility] [address] [place] [address] Jeronimo Crowe M.D. [id number] Calcium [Mass/Vol] 8.4 mg/dL Normal 8.4-10.2 [facility] Comment on above: Order Comment: [facility] has implemented the eGFR calculation approach that does not have a coefficient for race that conforms to the NKF-ASN Task Force Recommendations. Performed By: #### [id number] ####[facility] [address] [place] [address] Jeronimo Crowe M.D. [id number] Chloride [Moles/Vol] 97 mmol/L Low 98-108 [facility] Comment on above: Order Comment: [facility] has implemented the eGFR calculation approach that does not have a coefficient for race that conforms to the NKF-ASN Task Force Recommendations. Performed By: #### [id number] ####[facility] [address] [place] [address] Jeronimo Crowe M.D. [id number] Creatinine [Mass/Vol] 0.66 mg/dL Normal 0.50-1.30 [facility] Comment on above: Order Comment: [facility] has implemented the eGFR calculation approach that does not have a coefficient for race that conforms to the NKF-ASN Task Force Recommendations. Result Comment: Spec imen Icteric Performed By: #### 4 [id number] ####[facility] [address] [place] [address] Jeronimo Crowe M.D. [id number] EGFR 111 mL/min/1.73 m2 Normal >=60 [facility] Comment on above: Order Comment: [facility] has implemented the eGFR calculation approach that does not have a coefficient for race that conforms to the NKF-ASN Task Force Recommendations. Result Comment: Autumn mated GFR was calculated using the 2020 CKD-EPI creatinine equation. Performed By: #### 4 [id number] ####[facility] [address] [place] [address] Jeronimo Crowe M.D. [id number] Glucose [Mass/Vol] 162 mg/dL High 65-99 [facility] Comment on above: Order Comment: [facility] has implemented the eGFR calculation approach that does not have a coefficient for race that conforms to the NKF-ASN Task Force Recommendations. Performed By: #### 4 [id number] ####[facility] [address] [place] [address] Jeronimo Crowe M.D. [id number] HCO3 (Bld) [Moles/Vol] 24 mmol/L Normal 21-32 [facility] Comment on above: Order Comment: [facility] has implemented the eGFR calculation approach that does not have a coefficient for race that conforms to the NKF-ASN Task Force Recommendations. Performed By: #### 4 [id number] ####[facility] [address] [place] [address] Jeronimo Crowe M.D. [id number] Potassium [Moles/Vol] 3.4 mmol/L Low 3.5-5.1 [facility] Comment on above: Order Comment: [facility] has implemented the eGFR calculation approach that does not have a coefficient for race that conforms to the NKF-ASN Task Force Recommendations. Performed By: #### 4 [id number] ####[facility] [address] [place] [address] Jeronimo Crowe M.D. [id number] Sodium [Moles/Vol] 132 mmol/L Low 135-145 [facility] Comment on above: Order Comment: [facility] has implemented the eGFR calculation approach that does not have a coefficient for race that conforms to the NKF-ASN Task Force Recommendations. Performed By: #### 4 [id number] ####[facility] [address] [place] [address] Jeronimo Crowe M.D. [id number] Urea nitrogen [Mass/Vol] 3 mg/dL Low 8-25 [facility] Comment on above: Order Comment: [facility] has implemented the eGFR calculation approach that does not have a coefficient for race that conforms to the NKF-ASN Task Force Recommendations. Performed By: #### 4 [id number] ####[facility] [address] [place] [address] Jeronimo Crowe M.D. [id number] Urea nitrogen/Creatinine [Mass ratio] 4.5 mg/mg Low 10.0-20.0 [facility] Comment on above: Order Comment: [facility] has implemented the eGFR calculation approach that does not have a coefficient for race that conforms to the NKF-ASN Task Force Recommendations. Performed By: #### 4 [id number] ####[facility] [address] [place] [address] Jeronimo Crowe M.D. [id number] BNP (NT Pro BNP)on Natriuretic peptide.B prohormone N-Terminal [Mass/Vol] 148 pg/mL 0 - 300 pg/mL [facility] Basic metabolic 2000 panelOr dered By: Phillip Berumen on 03-13-2025 Anion gap [Moles/Vol] 14 mmol/L 10 - 2 0 mmol/L [facility] Calcium [Mass/Vol] 8.4 mg/dL 8.4 - 10. 2 mg/dL [facility] Chloride [Moles/Vol] 97 mmol/L Low 98 - 10 8 mmol/L [facility] Creatinine [Mass/Vol] 0.66 mg/dL 0.50 - 1.30 mg/dL [facility] Comment on above: Specimen Icteric GFR/1.73 sq M.predicted CKD-EPI (S/P/Bld) [Vol rate/Area] 111 - PINF [facility] Comment on above: Estimated GFR was ca lculated using the 2020 CKD-EPI creatinine equation. Glucose [Mass/Vol] 162 mg/dL High 65 - 99 mg/dL [facility] HCO3 [Moles/Vol] 24 mmol/L 21 - 32 mmol/L [facility] Interpretation and review of laboratory results Abnormal [facility] Potassium [Moles/Vol] 3.4 mmol/L Low 3.5 - 5.1 mmol/L [facility] Sodium [Moles/Vol] 132 mmol/L Low 135 - 145 mmol/L [facility] Urea nitrogen [Mass/Vol] 3 mg/dL Low 8 - 25 mg/dL [facility] Urea nitrogen/Creatinine [Mass ratio] 4.5 mg/mg Low 10.0 - 20.0 [facility] has implemented the eGFR calculation approach that does not have a coefficient for race that conforms to the NKF-ASN Task Force Recommendations. [facility] CBC Auto Differentialon 02-22 Basophils (Bld) [#/Vol] 0.05 10*3/uL [facility] Basophils/100 WBC (Bld) 1.3 % [facility] Eosinophils (Bld) [#/Vol] 0.09 10*3/uL [facility] Eosinophils/100 WBC (Bld) 2.4 % [facility] Erythrocyte distribution width (RBC) [Entitic vol] 14.3 % 11.6 - 14.8 % [facility] Hematocrit (Bld) [Volume fraction] 30.1 % Low 41.0 - 53.0 % [facility] Hemoglobin (Bld) [Mass/Vol] 10.2 g/dL Low 13.5 - 17.5 g/dL [facility] Immature granulocytes (Bld) [#/Vol] 0.03 10*3/uL [facility] Immature granulocytes/100 WBC (Bld) 0.8 % [facility] Comment on above: The IG parameter is the percentage of metamyelocytes, myelocytes and promyelocytes. An immature granulocyte count (IG) of 1% or more suggests the possibility of infection, an IG count of 3% is very likely related to an infection. Interpretation and review of laboratory results Abnormal [facility] Lymphocytes (Bld) [#/Vol] 0.7 10*3/uL Low [facility] Lymphocytes/100 WBC (Bld) 18.8 % [facility] MCH (RBC) [Entitic mass] 40 pg High 26.0 - 34.0 pg [facility] MCHC (RBC) [Mass/Vol] 33.9 g/dL 31.0 - 37.0 g/dL [facility] MCV (RBC) [Entitic vol] 118 fL High 80.0 - 100.0 fL [facility] Monocytes (Bld) [#/Vol] 0.45 10*3/uL [facility] Monocytes/100 WBC (Bld) 12.1 % [facility] Neutrophils (Bld) [#/Vol] 2.41 10*3/uL [facility] Neutrophils/100 WBC (Bld) 64.6 % [facility] Nucleated RBC (Bld) [#/Vol] 0 10*3/uL [facility] Nucleated RBC/100 WBC (Bld) [Ratio] 0 % [facility] Platelet mean volume (Bld) [Entitic vol] 10 fL 9.4 - 12.4 fL [facility] Platelets (Bld) [#/Vol] 82 10*3/uL Low [facility] RBC (Bld) [#/Vol] 2.55 10*6/uL Low [facility] ealth WBC (Bld) [#/Vol] 3.73 10*3/uL Low [facility] WITH AUTO DIFFERENTIALon 03-13-2025 AUTO NRBC 0.0 % Normal [facility] Comment on above: Performed By: #### L [id number] #### [facility] [address] [place] [address] Jeronimo Crowe M.D. [id number] AUTO NRBC ABS COUNT 0.00 K/mcL Normal 0.00-0.00 [facility] Comment on above: Performed By: #### L [id number] #### [facility] [address] [place] [address] Jeronimo Crowe M.D. [id number] BASOPHILS ABSOLUTE COUNT 0.05 K/mcL Normal 0.00-0.30 [facility] Comment on above: Performed By: #### L [id number] #### [facility] [address] [place] [address] Jeronimo Crowe M.D. [id number] Basophils/100 WBC (Bld) 1.3 % Normal R [facility] Comment on above: Performed By: #### L [id number] #### [facility] [address] [place] [address] Jeronimo Crowe M.D. [id number] Eosinophils (Bld) [#/Vol] 0.09 10*3/uL Normal 0.00-0.50 [facility] Comment on above: Performed By: #### L [id number] #### [facility] [address] [place] [address] Jeronimo Crowe M.D. [id number] Eosinophils/100 WBC (Bld) 2.4 % Normal [facility] Comment on above: Performed By: #### L [id number] #### [facility] [address] [place] [address] Jeronimo Crowe M.D. [id number] Erythrocyte distribution width (RBC) [Ratio] 14.3 % Normal 11.6-14.8 [facility] Comment on above: Performed By: #### L [id number] #### [facility] [address] [place] [address] Jeronimo Crowe M.D. [id number] Hematocrit (Bld) [Volume fraction] 30.1 % Low 41.0-53.0 [facility] Comment on above: Performed By: #### L [id number] #### [facility] [address] [place] [address] Jeronimo Crowe M.D. [id number] Hemoglobin (Bld) [Mass/Vol] 10.2 g/dL Low 13.5-17.5 [facility] Comment on above: Performed By: #### L [id number] #### [facility] [address] [place] [address] Jeronimo Crowe M.D. [id number] IG ABSOLUTE 0.03 K/mcL Normal 0.00-0.30 [facility] Comment on above: Performed By: #### L [id number] #### [facility] [address] [place], [place] [id number] Jeronimo Crowe M.D. [id number] IG PERCENT 0.80 % Normal [facility] Comment on above: Result Comment: The IG parameter is the percentage of metamyelocytes, myelocytes and promyelocytes. An immature granulocyte count (IG) of 1% or more suggests the possibility of infection, an IG count of 3% is very likely related to an infection. Performed By: #### L [id number] #### [facility] [address] [place] [address] Jeronimo Crowe M.D. [id number] Lymphocytes (Bld) [#/Vol] 0.70 10*3/uL Low 0.90-4.00 [facility] Comment on above: Performed By: #### Mack [id number] #### [facility] [address] [place] [address] Jeronimo Crowe M.D. [id number] Lymphocytes/100 WBC (Bld) 18.8 % Normal [facility] Comment on above: Performed By: #### Mack [id number] #### [facility] [address] [place], [place] [address] Jeronimo Crowe M.D. [id number] MCH (RBC) [Entitic mass] 40.0 pg High 26.0-34.0 [facility] Comment on above: Performed By: #### Mack [id number] #### [facility] [address] [place], [place] [address] Jeronimo Crowe M.D. [id number] MCV (RBC) [Entitic vol] 118.0 fL High 80.0-100.0 R [facility] Comment on above: Performed By: #### L [id number] #### [facility] [address] [place], [place] [address] Jeronimo Crowe M.D. [id number] MEAN CORPUSCULAR HEMOGLOBIN CONC 33.9 g/dL Normal 31.0-37.0 [facility] Comment on above: Performed By: #### L [id number] #### [facility] [address] [place] [address] Jeronimo Crowe M.D. [id number] Monocytes (Bld) [#/Vol] 0.45 10*3/uL Normal 0.30-0.90 [facility] Comment on above: Performed By: #### L [id number] #### [facility] [address] [place] [address] Jeronimo Crowe M.D. [id number] Monocytes/100 WBC (Bld) 12.1 % Normal [facility] Comment on above: Performed By: #### L [id number] #### [facility] [address] [place] [address] Jeronimo Crowe M.D. [id number] NEUTROPHILS ABSOLUTE COUNT 2.41 K/mcL Normal 1.70-7.00 [facility] Comment on above: Performed By: #### L [id number] #### [facility] [address] [place] [address] Jeronimo Crowe M.D. [id number] Neutrophils/100 WBC (Bld) 64.6 % Normal [facility] Comment on above: Performed By: #### L [id number] #### [facility] [address] [place] [address] Jeronimo Crowe M.D. [id number] Platelet mean volume (Bld) [Entitic vol] 10.0 fL Normal 9.4-12.4 [facility] Comment on above: Performed By: #### L [id number] #### [facility] [address] [place], [place] [address] Jeronimo Crowe M.D. [id number] Platelets (Bld) [#/Vol] 82 10*3/uL Low 150-400 [facility] Comment on above: Performed By: #### L [id number] #### [facility] [address] [place] [address] Jeronimo Crowe M.D. [id number] RBC (Bld) [#/Vol] 2.55 10*6/uL Low 4.50-5.90 [facility] Comment on above: Performed By: #### L [id number] #### [facility] [address] [place] [address] Jeronimo Crowe M.D. [id number] WBC (Bld) [#/Vol] 3.73 10*3/uL Low 4.50-11.00 [facility] Comment on above: Performed By: #### L [id number] #### [facility] [address] [place] [address] Jeronimo Crowe M.D. [id number] CONSULTon 03-13-2025 CONSULT Vascular & Interventional Radiology Provided By [facility] FOR PROVIDER USE ONLY: [facility] Interventional Radiology: [phone] [facility] Interventional Radiology: [phone] [facility] Interventional Radiology: [phone] 15/06 VIR physician contact: [phone]) FOR PATIENT AND PROVIDERS: [facility]: [phone] [email or web address] Patient Name: Aryan Valle : 1970 Code Status: Full Code VIR consult received for USg diagnostic paracentesis. Pertinent past medical/surgical history: Aryan Valle is a 55 YO male with a PMH of seizures, HTN, cirrhosis, alcohol use disorder who presented to [facility] with abdominal pain. He was found to have ascites on CT imaging, so we have been consulted to perform a diagnostic paracentesis. Based upon chart review, patient is appropriate to have this procedure and will be scheduled as able. The patient's chart to include history and physical, pertinent allergies, code status, laboratory and available pertinent imaging were reviewed. The patient will be scheduled for the requested USg diagnostic paracentesis. L: 3 Preprocedural needs: No prep needed; patient does not need to be NPO for requested procedure. Procedure date and time for in-patients TBD by the [facility] control desk @ [phone] pending emergent cases and other scheduling demands. Please call the [facility] out-patient office @ [phone] (Option 0) if requested procedure is desired after discharge. Pertinent Information: Antiplatelet/Anticoagula tion: Lovenox Allergies: Patient has no known allergies. Laboratory: Lab Results Component Value Date BUN 3 (L) 03/13/2025 CREATININE 0.66 03/13/2025 EGFR 111 03/13/2025 Lab Results Component Value Date PROTIME 28.5 (H) 03/13/2025 INR 2.7 (H) 03/13/2025 Lab Results Component Value Date WBC 3.73 (L) 03/13/2025 RBC 2.55 (L) 03/13/2025 HGB 10.2 (L) 03/13/2025 HCT 30.1 (L) 03/13/2025 PLT 82 (L) 03/13/2025 Pertinent image(s) (if applicable): [facility] Jane-procedure lab value guideline: Table 1. LOW Bleeding Risk Laboratory Guidelines Low Bleeding Risk Procedures Target Laboratory Values3 Bone Marrow Biopsy [Platelet Count - N/A] Catheter exchanges (gastrostomy, biliary, nephrostomy, abscess, including gastrostomy/gastrojejuno stomy conversions) CVC tunneled >/= 8 Fr* Diagnostic venography and select venous interventions: pelvis and extremities Dialysis shunt interventions IVC filter placement and removal Non-tunneled chest tube placement for pleural effusion Non-tunneled venous access and removal (including PICC placement) and Tunneled venous access Paracentesis Peripheral nerve blocks, joint, and musculoskeletal injections Sacroiliac joint injection and sacral lateral branch blocks Superficial abscess drainage or biopsy (palpable lesion, lymph node, soft tissue, breast, thyroid) Thoracentesis Trans jugular liver biopsy Trigger point injections including piriformis Tunneled drainage catheter placement* PT/INR < 3.0 Platelets > 20,000/mcL (Consider transfusing platelets if <20,000/mcL) If patient with Chronic Liver Disease (based on expert opinion): PT/INR < 3.0 (Consider Vitamin K infusion if INR >3.0) Platelets > 20,000/mcL (Transfuse platelets if <20,000/mcL in patients with a large spleen) Fibrinogen > 100mg/dL (Consider cryoprecipitate if <100mg/dL) *If on Direct Oral Anticoagulant (DOAC), follow HIGH Bleeding Risk recommendations in Table 2 and Table 3 Table 2. HIGH Bleeding Risk Laboratory Guidelines: HIGH Bleeding Risk Procedures Target Laboratory Values3 Ablations: solid organs, bone, soft tissue, lung Arterial diagnostic interventions: aortic, pelvic, mesenteric, peripheral Biliary interventions (including cholecystostomy tube placement) Catheter directed thrombolysis/thrombectom y- DVT, PE, portal vein (Highly case dependent) Deep abscess drainage (e.g., lung parenchyma, abdominal, pelvic, retroperitoneal) Deep non organ biopsies (e.g., spine, soft tissue in intra-abdominal, retroperitoneal, pelvic compartments) Gastrostomy/gastrojejuno stomy placement IVC filter removal complex Lumbar puncture Lymphangiography Portal vein interventions Solid organ biopsies Spine procedures with risk of spinal or epidural hematoma (e.g., kyphoplasty, vertebroplasty, epidural injections, facet blocks) Trans jugular intrahepatic portosystemic shunt Port placement/removal (Buried) Urinary tract interventions (including nephrostomy tube placement, ureteral dilation, stone removal) Venous interventions: intrathoracic and MECHANICAL TECHNICAL SERVICE SPECIALIST intervention PT/INR < 1.8 (if arterial access, femoral: INR < 1.8, radial: INR < 2.2) Platelets > 50,000/mcL (Consider transfusing platelets if <50,000/mcL) If patient with Chronic Liver D (more content not included)... Normal [facility] DRUGS OF ABUSE SCREEN, URINE on 03-13-2025 AMPHETAMINE SCREEN, URINE Not detected Normal None Detected [facility] Comment on above: Order Comment: Scree n results should be used for treatment purposes only. Result Comment: Urin e Amphetamine Cutoff: < 1000 ng/mL = None Detected Performed By: #### [id number] ####[facility] [address] [place] [address] Jeronimo Crowe M.D. [id number] BARBITURATE SCREEN URINE Not detected Normal None Detected [facility] Comment on above: Order Comment: Scree n results should be used for treatment purposes only. Result Comment: Urin e Barbiturates Cutoff: < 200 ng/mL = None Detected Performed By: #### 4 [id number] ####[facility] [address] [place] [address] Jeronimo Crowe M.D. [id number] BENZODIAZEPINE SCREEN, URINE Not detected Normal None Detected [facility] Comment on above: Order Comment: Scree n results should be used for treatment purposes only. Result Comment: Urin e Benzodiazepine Cutoff: < 200 ng/mL = None Detected Performed By: #### [id number] ####[facility] [address] [place] [address] Jeronimo Crowe M.D. [id number] BUPRENORPHINE, URINE Not detected Normal None Detected [facility] Comment on above: Order Comment: Scree n results should be used for treatment purposes only. Result Comment: Urin e Buprenorphine Cutoff: < 5 ng/mL = None Detected Performed By: #### [id number] ####[facility] [address] [place] [address] Jeronimo Crowe M.D. [id number] CANNABINOID SCREEN URINE Not detected Normal None Detected [facility] Comment on above: Order Comment: Scree n results should be used for treatment purposes only. Result Comment: Urin e Cannabinoids Cutoff: < 50 ng/mL = None Detected Performed By: #### [id number] ####[facility] [address] [place] [address] Jeronimo Crowe M.D. [id number] COCAINE, SCREEN URINE Not detected Normal None Detected [facility] Comment on above: Order Comment: Scree n results should be used for treatment purposes only. Result Comment: Urin e Cocaine Cutoff: < 300 ng/mL = None Detected Performed By: #### 4 [id number] ####[facility] [address] [place] [address] Jeronimo Crowe M.D. [id number] FENTANYL, URINE Not detected Normal None Detected [facility] Comment on above: Order Comment: Scree n results should be used for treatment purposes only. Result Comment: Urin e Fentanyl Cutoff: < 1 ng/mL = None Detected Performed By: #### 4 [id number] ####[facility] [address] [place] [address] Jeronimo Crowe M.D. [id number] METHADONE SCREEN, URINE Not detected Normal None Detected [facility] Comment on above: Order Comment: Scree n results should be used for treatment purposes only. Result Comment: Urin e Methadone Cutoff: < 300 ng/mL = None Detected Performed By: #### 4 [id number] ####[facility] [address] [place] [address] Jeronimo Crowe M.D. [id number] OPIATE SCREEN URINE Not detected Normal None Detected [facility] Comment on above: Order Comment: Scree n results should be used for treatment purposes only. Result Comment: Urin e Opiates Cutoff: < 300 ng/mL = None Detected Performed By: #### 4 [id number] ####[facility] [address] [place] [address] Jeronimo Crowe M.D. [id number] OXYCODONE SCREEN, URINE Not detected Normal None Detected [facility] Comment on above: Order Comment: Scree n results should be used for treatment purposes only. Result Comment: Urin e Oxycodone Cutoff: < 100 ng/mL = None Detected Performed By: #### 4 [id number] ####[facility] [address] [place], [place] [address] Jeronimo Crowe M.D. [id number] Drugs of Abuse Screen, Urine on 03-13-2025 Amphetamines Ql (U) Not detected None Detected [facility] Comment on above: Urine Amphetamine Cu toff: < 1000 ng/mL = None Detected Barbiturates Screen Ql (U) Not detected None Detected [facility] Comment on above: Urine Barbiturates C utoff: < 200 ng/mL = None Detected Benzodiazepines Ql (U) Not detected None Detected [facility] Comment on above: Urine Benzodiazepine Cutoff: < 200 ng/mL = None Detected Buprenorphine Ql (U) Not detected None Detected [facility] Comment on above: Urine Buprenorphine Cutoff: < 5 ng/mL = None Detected Cannabinoids Screen Ql (U) Not detected None Detected [facility] Comment on above: Urine Cannabinoids C utoff: < 50 ng/mL = None Detected Cocaine Ql (U) Not detected None Detected [facility] Comment on above: Urine Cocaine Cutoff : < 300 ng/mL = None Detected fentaNYL+Norfentanyl Screen Ql (U) Not detected None Detected [facility] Comment on above: Urine Fentanyl Cutof f: < 1 ng/mL = None Detected Interpretation and review of laboratory results Normal [facility] Methadone Screen Ql (U) Not detected None Detected [facility] Comment on above: Urine Methadone Cuto ff: < 300 ng/mL = None Detected Opiates Screen Ql (U) Not detected None Detected [facility] Comment on above: Urine Opiates Cutoff : < 300 ng/mL = None Detected oxyCODONE Ql (U) Not detected None Detected [facility] Comment on above: Urine Oxycodone Cuto ff: < 100 ng/mL = None Detected Screen results shoul d be used for treatment purposes only. [facility] ED Prov Noteon 03-13-2025 ED Prov Note PCP - Beto Farmer gbe, MD Chief Complaint Patient presents with Abdominal Pain HPI/ Medical Decision Making Patient is a 55-year-old male is presenting today for abdominal pain. Patient has history of seizure disorder, hypertension, hyperlipidemia, alcoholism. Patient states that has been having ongoing abdominal pain for the past 3 months. States is a constant pressure sensation. Was previously seen at [facility] and recommend admission for transaminitis with ascites but declined at that time. Patient was also noted to be seen at [facility] in which he eloped before he was able to get an inpatient bed. Does state that he has had some chills, decreased urinary output and constipation is still passing flatulence. States that he used to drink a lot heavier but now drinks about 3 beers per day. Has been drinking daily for over 20 years. Denies any nausea, vomiting, fevers, recent sickness, cough, congestion, sore throat, rhinorrhea, melena, bloody stools, chest pain, shortness of breath, history of withdrawal seizures, visual or auditory hallucinations. When patient was at [facility] he also noted concerns for cellulitis of his left lower extremity, physician at that time felt that this was more chronic and not cellulitis but patient was prophylactically covered with Keflex, patient received 1 dose and was unable to oyster picker prescription. [facility] was unable to do ultrasound at that time as they do not have 24-hour ultrasound. CT at outlying facility consistent with ascites. Medical Decision Making Amount and/or Complexity of Data Reviewed External Data Reviewed: labs, radiology and notes. Labs: ordered. Decision-making details documented in ED Course. ECG/medicine tests: ordered and independent interpretation performed. Decision-making details documented in ED Course. Risk OTC drugs. Prescription drug management. Decision regarding hospitalization. The patient's medical chart, vital signs and nursing notes were reviewed. Diagnostic considerations during this visit include but are not limited to: DVT, occlusion, transaminitis, SBP, CHF Work-up in the emergency department included labs and imaging. CBC shows leukopenia and anemia with a hemoglobin of 10.2. BMP within appropriate range. LFT shows transaminitis and elevated bilirubin of 9. BMP shows hyponatremia, hypokalemia, hypochloremia, decreased BUN, no BENJAMIN. Ultrasound of the bilateral lower extremities and chest x-ray shows no acute findings. EKG shows no acute signs of ischemia. All results of diagnostic testing performed in the emergency department were reviewed with the patient. At this time, we feel patient is appropriate for admission. Please see admitting attendings attestation for continued workup, treatment, plan. Patient was agreeable to admission and plan. This patient was seen by myself in conjugation with emergency medicine attending physician, Dr. Lindsay. I discussed this patient including his/her history, physical exam, laboratory findings, and imaging with the attending physician who is in agreement with this plan. Note: To expedite correspondence this note was generated by [employer] voice recognition software. This note was partially created using voice recognition software and is inherently subject to errors including those of syntax and sound-alike substitutions which may escape proofreading. In such instances, original meaning may be extrapolated by contextual derivation. Impressions: 1. Transaminitis 2. Ascites MDM Data Previous Records Reviewed . . Labs Reviewed BASIC METABOLIC PANEL - Abnormal; Notable for the following components: Result Value Sodium 132 (*) Potassium 3.4 (*) Chloride 97 (*) Glucose 162 (*) BUN 3 (*) BUN/Creatinine Ratio 4.5 (*) All other components within normal limits Narrative: [facility] Services has implemented the eGFR calculation approach that does not have a coefficient for race that conforms to the NKF-ASN Task Force Recommendations. HEPATIC FUNCTION PANEL - Abnormal; Notable for the following components: Total Protein 8.3 (*) Albumin 2.9 (*) Total Bilirubin 18.3 (*) Bilirubin, Direct 9.0 (*) Alkaline Phosphatase 200 (*) AST 112 (*) All other components within normal limits CBC WITH AUTO DIFFERENTIAL - Abnormal; Notable for the following components: WBC 3.73 (*) RBC 2.55 (*) Hemoglobin 10.2 (*) Hematocrit 30.1 (*) MCV 118.0 (*) MCH 40.0 (*) Platelets 82 (*) Lymphocytes Abs 0.70 (*) All other components within normal limits NT PRO BNP - Normal Narrative: Pride Study Cut-offs Rule In: < /= 50 Years >450 pg/mL 51 Years - 75 Years >900 pg/mL 76 Years - 99 Years >1800 pg/mL Rule Out: All patients <300 pg/mL CBC AND DIFFERENTIAL Narrative: The following orders were created for panel order CBC w/ Diff. Procedure Abnormality (more content not included)... Normal [facility] EKG 12-leadon 03-13-2025 Atrial Rate 84 BPM [facility] P [place] 23 degrees [facility] P-R Interval 172 ms [facility] Q-T Interval 412 ms [facility] QRS Duration 84 ms [facility] QTC Calculation (Bezet) 486 ms [facility] R [place] 16 degrees [facility] T [place] 5 degrees [facility] Ventricular Rate 84 BPM [facility] th Normal sinus rhythm Cannot rule out Inferior infarct , age undetermined Cannot rule out Anterior infarct , age undetermined Abnormal ECG Confirmed by GERSON CLARK MD ([id number]) on 03/13/2025 1:08:33 PM MUSE [facility] Ethanol [Mass/Vol]on 025 Interpretation and review of laboratory results Abnormal [facility] Gold Topon 03-13-2025 Extra Tube Hold for add-ons. [facility] Comment on above: Auto resulted. [facility] H AND Saul 03-13-2025 H AND P ---- -------- Attestation signed by Irving Dixon MD at 03/13/2025 6:18 PM I have personally performed a [id number] diagnostic evaluation of this patient on 03/13/2025. After discussing the case with Daxa Rubio CNP, I performed the substantive part of the medical decision making for this encounter and approved the JORGE's plan of care with the following additions: Patient presented with abdominal discomfort and distention. Workup significant for ascites and elevated transaminases. Plan to consult hepatology and IR for diagnostic paracentesis Patient is jaundiced at time of eval. He also has significant abdominal distension. He reports he drinks 3 beers daily, most recent drink 24 hours prior to admission. We discussed need for CIWA protocol and he is agreeable. Labs reviewed. K 3.4. replacement ordered. Sodium corrected 133. No leukocytosis. Hgb 10.2. platelets 82, likely due to liver disease. T bili 18.3. AST 112, ALT 47. ETOH level 39. LE duplex negative. LLE erythema noted with signs of psoriasis, will treat as cellulitis. Can dc abx if not improving. CXR personally reviewed, diaphragm appears even, trachea midline, no pleural effusions. Code status confirmed, full code. Will hold on diuretics for now until after paracentesis as he may need albumin from fluid shifts Physical Exam (Focused elements based on presentation): BP 127/73 Pulse 84 Temp 98.8 degrees F (37.1 degrees C) Resp 13 Ht 5' 11 Wt 107.5 kg (237 lb) SpO2 98% BMI 33.05 kg/m General: NAD Eyes: EOMI, scleral icterus ENT: neck supple Cardiovascular: Regular rate, no murmur Respiratory: Clear to auscultation, symmetric air entry Gastrointestinal: taut, distended, scites present Genitourinary: no CVA tenderness Musculoskeletal: no major joint deformity Skin: warm, dry, jaundice, BLE edema. LLE erythema to anterior choe Neuro: Alert, oriented x3, no focal motor deficits. No asterixis. Psych: Mood appropriate -------- [facility] History and Physical Note 03/13/25 Aryan Valle 1970 [id number] Assessment/Plan: Aryan Valle is a 55 y.o. male with a history of seizures, HTN, cirrhosis, alcohol use disorder, admission at [facility] 02/24/25 for abdominal distention but left AMA, ED visit 03/11/25 for decompensated cirrhosis and large volume ascites who declined admission to [facility] or transfer to tertiary hospital for hepatology evaluation who presented to [facility] 03/13/2025 with ongoing abdominal pain. ED workup significant for T. bili 18.3, T. bili 9, alk phos 200, AST 112, platelets 82. Decompensated Cirrhosis with Ascites: hx of ascites requiring paracentesis in 2022. Lost to follow-up. Jaundiced with scleral icterus on exam. Dry weight ~210 lb, admit weight [address] A/ showed cirrhosis, large volume ascites, hepatomegaly suggestive of portal hypertension. MELD-Na 29. Admit T. bili 18.3, T. bili 9, alk phos 200, AST 112, platelets 82. Held p.o. aldactone/Lasix for upcoming paracentesis, will likely need IV diuresis. Trend labs, Hepatology and IR consulted. Coagulopathy: Admit INR 2.7. In the setting of cirrhosis. No active bleeding. Thrombocytopenia: Unknown baseline. Admit platelets 82. Suspected due to above. Monitor. Hyponatremia: Admit sodium 132 in the setting of anasarca and cirrhosis. Alcohol Use Disorder: denied history of withdrawal. Drinks 3 beers daily. Last drink 03/12/2025. CIWA, vitamins. Low threshold for hepatic dose phenobarb taper. LLE Cellulitis: started ancef on admit. Urinary retention: Difficulty initiating and maintaining stream per patient. Ordered PVR but may not be accurate given large volume of ascites. Monitor Left inguinal hernia: Follows with surgery outpatient. CT A/P showed ascites within left inguinal hernia without bowel involvement. Follow-up outpatient. Code status: full code DVT Prophylaxis: lovenox Medication Reconciliation: Reviewed using bone density technician Current living situation: home Expected Disposition: home Estimated discharge date: 2-3 days Medically Ready for Discharge: no decomp cirrhosis Admitted with these risk variables:Chronic Liver Disease, Ascites, Coagulation Defect, Thrombocytopenia, Fluid Overload, and Electrolyte Disturbance: Hyponatremia. Please see assessment and plan for further details. Chief Complaint: Abdominal swelling History of Present Illness: Aryan Valle is a 55 y.o. male with a history of seizures, HTN, cirrhosis, alcohol use disorder, admission at [facility] 02/24/25 for abdominal distention but left AMA, ED visit 03/11/25 for decompensated cirrhosis and large volume ascites who declined admission to [facility] or transfer to tertiary hospital for hepatology evaluation who presented to [facility] 03/13/2025 with ongoing abdomin (more content not included)... Normal [facility] HEPATIC FUNCTION PANELon Albumin [Mass/Vol] 2.9 g/dL Low 3.2-5.2 [facility] Comment on above: Performed By: #### 4 [id number] #### [facility] [address] [place] [id number] Jeronimo Crowe M.D. [id number] ALP [Catalytic activity/Vol] 200 U/L High 40-150 [facility] Comment on above: Performed By: #### 4 [id number] #### [facility] [address] [place] [address] Jeronimo Crowe M.D. [id number] ALT [Catalytic activity/Vol] 47 U/L Normal 0-50 U/L [facility] Comment on above: Performed By: #### 4 [id number] #### [facility] [address] [place], [place] [id number] Jeronimo Crowe M.D. [id number] AST [Catalytic activity/Vol] 112 U/L High 0-50 U/L [facility] Comment on above: Performed By: #### 4 [id number] #### [facility] [address] [place] [address] Jeronimo Crowe M.D. [id number] Bilirubin [Mass/Vol] 18.3 mg/dL High 0.0-1.3 [facility] Comment on above: Performed By: #### 4 [id number] #### [facility] [address] [place] [address] Jeronimo Crowe M.D. [id number] Bilirubin.indirect [Mass/Vol] 9.0 mg/dL High 0.0-0.4 [facility] Comment on above: Performed By: #### 4 [id number] #### [facility] [address] [place], [place] [address] Jeronimo Crowe M.D. [id number] Protein [Mass/Vol] 8.3 g/dL High 6.0-8.0 [facility] Comment on above: Performed By: #### 4 [id number] #### [facility] [address] [place], [place] [address] Jeronimo Crowe M.D. [id number] Hepatic function 2000 panelo n 03-13-2025 Albumin [Mass/Vol] 2.9 g/dL Low 3.2 - 5.2 g/dL [facility] ALP [Catalytic activity/Vol] 200 U/L High 40 - 150 U/L [facility] ALT [Catalytic activity/Vol] 47 U/L 0 - 50 U/L [facility] AST [Catalytic activity/Vol] 112 U/L High 0 - 50 U/L [facility] Bilirubin [Mass/Vol] 18.3 mg/dL High 0.0 - 1 .3 mg/dL [facility] Bilirubin.conjugated [Mass/Vol] 9 mg/dL High 0.0 - 0.4 mg/dL [facility] Interpretation and review of laboratory results Abnormal [facility] Protein [Mass/Vol] 8.3 g/dL High 6.0 - 8.0 g/dL [facility] INR Coag (PPP) [Relative chente e]on 03-13-2025 Interpretation and review of laboratory results Abnormal [facility] PT Coag (PPP) [Time] 28.5 s High [facility] During the induction phase of oral anticoagulation, the INR may not reflect the anticoagulation status of the patient. Therapeutic ranges for INR's are: Most clinical situations: INR 2.0-3.0 Mechanical Prosthetic Valve: INR 2.5-3.5 Critical: INR >5.0 [facility] NT PRO BNPon 03-13-2025 Natriuretic peptide B (Bld) [Mass/Vol] 148 pg/mL Normal 0-300 [facility] Comment on above: Order Comment: Pride Study Cut-offsRule In:< /= 50 Years >450 pg/mL51 Years - 75 Years >900 pg/mL76 Years - 99 Years >1800 pg/mLRule Out:All patients <300 pg/mL Performed By: #### L [id number] #### [facility] [address] [place] [address] Jeronimo Crowe M.D. [id number] Natriuretic peptide.B prohor markel N-Terminal [Mass/Vol]on 03-13-2025 Interpretation and review of laboratory results Normal [facility] Pride Study Cut-offs Rule In: < /= 50 Years >450 pg/mL 51 Years - 75 Years >900 pg/mL 76 Years - 99 Years >1800 pg/mL Rule Out: All patients <300 pg/mL [facility] No Panel Informationon 03-13 Extra Tube Hold for add-ons. [facility] Comment on above: Auto resulted. [facility] PHOSPHATIDYLETHANOL CONFIRMA TION, BLOODon 03-13-2025 EDGECOMB - PETH 16:0/18:1 (POPETH) BY LC MS/MS See Ref Lab Comment Normal Cutoff: 10 [facility] Comment on above: Result Comment: Unkn own interfering substance present; unable to obtain results. Phosphatidylethanol (PEth) homologues result interpretation PEth 16:0/18:1 (POPEth) Less than 10 ng/mL: Not detected 10 - 19 ng/mL: Abstinence or light alcohol consumption (<2 drinks per day for several days a week) 20 - 200 ng/mL: Moderate alcohol consumption (up to 4 drinks per day for several days a week) Greater than 200 ng/mL: Heavy alcohol consumption or chronic alcohol use (at least 4 drinks per day several days a week) (Reference: Emily Aguirre and Joanie Jacobs 2018 J. Forensic Sci) EDGECOMB - PETH 16:0/18:2 (PLPETH) BY LC MS/MS 244 ng/mL Normal Cutoff: 10 [facility] Comment on above: Result Comment: PEth 16:0/18:2 (PLPEth) Reference ranges are not well established [facility] PETH INTERPRETATION Positive Normal [facility] Comment on above: Result Comment: ADDITIONAL INFORMATION This report is intended for use in clinical monitoring and management of patients. It is not intended for use in employment-related testing. This test was developed and its performance characteristics determined by [facility] in a manner consistent with CLIA requirements. This test has not been cleared or approved by the U.S. Food and Drug Administration. Test Performed by: [facility] [place] [address] Drink Mixer: Ashleigh Kim Ph.D.; CLIA# [id number] PT/INRon 03-13-2025 INR Coag (PPP) [Relative time] 2.7 {INR} High 0.8 - 1.1 [facility] INR Coag (PPP) [Relative time] 2.7 {INR} High 0.8-1.1 [facility] Comment on above: Order Comment: Charis henson the induction phase of oral anticoagulation, the INR may not reflect the anticoagulation status of the patient. Therapeutic ranges for INR's are:Most clinical situations: INR 2.0-3.0Mechanical Prosthetic Valve: INR 2.5-3.5Critical: INR >5.0 Performed By: #### [id number] ####[facility] [address] [place] [address] Jeronimo Crowe M.D. [id number] PT Coag (PPP) [Time] 28.5 s High 11.8-14.3 [facility] Comment on above: Order Comment: Charis henson the induction phase of oral anticoagulation, the INR may not reflect the anticoagulation status of the patient. Therapeutic ranges for INR's are:Most clinical situations: INR 2.0-3.0Mechanical Prosthetic Valve: INR 2.5-3.5Critical: INR >5.0 Performed By: #### 4 [id number] ####[facility] [address] [place] [address] Jeronimo Crowe M.D. [id number] URINALYSISon 03-13-2025 BACTERIA, URINE Few Abnormal None Seen [facility] Comment on above: Order Comment: Micro scopic examination is performed on all urinalysis samples and only positive findings are reported. The test for blood on the chemical analytic portion of urinalysis may also be positive due to hemoglobinuria and myoglobinuria and if red blood cells are present they are quantified by microscopic examination. Performed By: #### 4 [id number] #### [facility] [address] [place] [address] Jeronimo Crowe M.D. [id number] BILIRUBIN, URINE Positive Abnormal Negative [facility] Comment on above: Order Comment: Micro scopic examination is performed on all urinalysis samples and only positive findings are reported. The test for blood on the chemical analytic portion of urinalysis may also be positive due to hemoglobinuria and myoglobinuria and if red blood cells are present they are quantified by microscopic examination. Result Comment: Fals e positive urine bilirubins can occur in the setting of a large amount of hemoglobin and secondary to medications including anti-inflammatory agents, rifampin, and pyridium. Performed By: #### 4 [id number] #### [facility] [address] [place] [address] Jeronimo Crowe M.D. [id number] BLOOD, URINE Negative Normal Negative [facility] Comment on above: Order Comment: Micro scopic examination is performed on all urinalysis samples and only positive findings are reported. The test for blood on the chemical analytic portion of urinalysis may also be positive due to hemoglobinuria and myoglobinuria and if red blood cells are present they are quantified by microscopic examination. Performed By: #### 4 5033 #### [facility] [address] [place] [address] Jeronimo Crowe M.D. [id number] Clarity (U) Cloudy Abnormal Clear [facility] Comment on above: Order Comment: Micro scopic examination is performed on all urinalysis samples and only positive findings are reported. The test for blood on the chemical analytic portion of urinalysis may also be positive due to hemoglobinuria and myoglobinuria and if red blood cells are present they are quantified by microscopic examination. Performed By: #### 4 5033 #### [facility] [address] [place] [address] Jeronimo Crowe M.D. [id number] Color (U) Yellow Normal Colorless, Yellow [facility] Comment on above: Order Comment: Micro scopic examination is performed on all urinalysis samples and only positive findings are reported. The test for blood on the chemical analytic portion of urinalysis may also be positive due to hemoglobinuria and myoglobinuria and if red blood cells are present they are quantified by microscopic examination. Performed By: #### 4 [id number] #### [facility] [address] [place] [address] Jeronimo Crowe M.D. [id number] Glucose Ql (U) Negative Normal Negative [facility] Comment on above: Order Comment: Micro scopic examination is performed on all urinalysis samples and only positive findings are reported. The test for blood on the chemical analytic portion of urinalysis may also be positive due to hemoglobinuria and myoglobinuria and if red blood cells are present they are quantified by microscopic examination. Performed By: #### 4 5033 #### [facility] [address] [place] [address] Jeronimo Crowe M.D. [id number] Hyaline casts LM Ql (Urine sed) 3-5 Abnormal 0-2 [facility] Comment on above: Order Comment: Micro scopic examination is performed on all urinalysis samples and only positive findings are reported. The test for blood on the chemical analytic portion of urinalysis may also be positive due to hemoglobinuria and myoglobinuria and if red blood cells are present they are quantified by microscopic examination. Performed By: #### 4 5033 #### [facility] [address] [place] [address] Jeronimo Crowe M.D. [id number] Ketones Ql (U) Negative Normal Negative [facility] Comment on above: Order Comment: Micro scopic examination is performed on all urinalysis samples and only positive findings are reported. The test for blood on the chemical analytic portion of urinalysis may also be positive due to hemoglobinuria and myoglobinuria and if red blood cells are present they are quantified by microscopic examination. Performed By: #### 4 5033 #### [facility] [address] [place] [address] Jeronimo Crowe M.D. [id number] Leukocyte esterase Test strip Ql (U) Negative Normal Negative [facility] Comment on above: Order Comment: Micro scopic examination is performed on all urinalysis samples and only positive findings are reported. The test for blood on the chemical analytic portion of urinalysis may also be positive due to hemoglobinuria and myoglobinuria and if red blood cells are present they are quantified by microscopic examination. Performed By: #### 4 5033 #### [facility] [address] [place], [place] [address] Jeronimo Crowe M.D. [id number] MUCUS, URINE Rare Normal None Seen, Rare [facility] Comment on above: Order Comment: Micro scopic examination is performed on all urinalysis samples and only positive findings are reported. The test for blood on the chemical analytic portion of urinalysis may also be positive due to hemoglobinuria and myoglobinuria and if red blood cells are present they are quantified by microscopic examination. Performed By: #### 4 5033 #### [facility] [address] [place] [address] Jeronimo Crowe M.D. [id number] NITRITE, URINE Negative Normal Negative [facility] Comment on above: Order Comment: Micro scopic examination is performed on all urinalysis samples and only positive findings are reported. The test for blood on the chemical analytic portion of urinalysis may also be positive due to hemoglobinuria and myoglobinuria and if red blood cells are present they are quantified by microscopic examination. Performed By: #### 4 5033 #### [facility] [address] [place] [address] Jeronimo Crowe M.D. [id number] pH (U) 6.0 [pH] Normal 5.0-7.0 [facility] Comment on above: Order Comment: Micro scopic examination is performed on all urinalysis samples and only positive findings are reported. The test for blood on the chemical analytic portion of urinalysis may also be positive due to hemoglobinuria and myoglobinuria and if red blood cells are present they are quantified by microscopic examination. Performed By: #### 4 5033 #### [facility] [address] [place] [address] Jeronimo Crowe M.D. [id number] PROTEIN, URINE Negative Normal Negative [facility] Comment on above: Order Comment: Micro scopic examination is performed on all urinalysis samples and only positive findings are reported. The test for blood on the chemical analytic portion of urinalysis may also be positive due to hemoglobinuria and myoglobinuria and if red blood cells are present they are quantified by microscopic examination. Performed By: #### 4 [id number] #### [facility] [address] [place] [address] Jeronimo Crowe M.D. [id number] RBC, URINE < Normal 0-3 [facility] Comment on above: Order Comment: Micro scopic examination is performed on all urinalysis samples and only positive findings are reported. The test for blood on the chemical analytic portion of urinalysis may also be positive due to hemoglobinuria and myoglobinuria and if red blood cells are present they are quantified by microscopic examination. Performed By: #### 4 5033 #### [facility] [address] [place] [address] Jeronimo Crowe M.D. [id number] Specific gravity (U) [Rel density] 1.021 Normal 1.005-1.025 [facility] Comment on above: Order Comment: Micro scopic examination is performed on all urinalysis samples and only positive findings are reported. The test for blood on the chemical analytic portion of urinalysis may also be positive due to hemoglobinuria and myoglobinuria and if red blood cells are present they are quantified by microscopic examination. Performed By: #### 4 5033 #### [facility] [address] [place] [address] Jeronimo Crowe M.D. [id number] SQUAMOUS EPITHELIAL < Normal 0-4 [facility] Comment on above: Order Comment: Micro scopic examination is performed on all urinalysis samples and only positive findings are reported. The test for blood on the chemical analytic portion of urinalysis may also be positive due to hemoglobinuria and myoglobinuria and if red blood cells are present they are quantified by microscopic examination. Performed By: #### 4 5033 #### [facility] [address] [place] [address] Jeronimo Crowe M.D. [id number] UNCLASSIFIED CRYSTALS None Seen Normal None Seen [facility] Comment on above: Order Comment: Micro scopic examination is performed on all urinalysis samples and only positive findings are reported. The test for blood on the chemical analytic portion of urinalysis may also be positive due to hemoglobinuria and myoglobinuria and if red blood cells are present they are quantified by microscopic examination. Result Comment: This is a corrected result. Previous result was Rare /hpf on 03/13/2025 at 1858 EDT Performed By: #### 4 [id number] #### [facility] [address] [place] [address] Jeronimo Crowe M.D. [id number] UROBILINOGEN, URINE >=4.0 Abnormal <2.0 [facility] Comment on above: Order Comment: Micro scopic examination is performed on all urinalysis samples and only positive findings are reported. The test for blood on the chemical analytic portion of urinalysis may also be positive due to hemoglobinuria and myoglobinuria and if red blood cells are present they are quantified by microscopic examination. Performed By: #### 4 5033 #### [facility] [address] [place] [address] Jeronimo Crowe M.D. [id number] WBC CLUMPS, URINE Rare Abnormal None Seen [facility] Comment on above: Order Comment: Micro scopic examination is performed on all urinalysis samples and only positive findings are reported. The test for blood on the chemical analytic portion of urinalysis may also be positive due to hemoglobinuria and myoglobinuria and if red blood cells are present they are quantified by microscopic examination. Performed By: #### 4 [id number] #### [facility] [address] [place] [address] Jeronimo Crowe M.D. [id number] WBC LM.HPF (Urine sed) [#/Area] 1 /[HPF] Normal 0-5 [facility] Comment on above: Order Comment: Micro scopic examination is performed on all urinalysis samples and only positive findings are reported. The test for blood on the chemical analytic portion of urinalysis may also be positive due to hemoglobinuria and myoglobinuria and if red blood cells are present they are quantified by microscopic examination. Performed By: #### 4 [id number] #### [facility] [address] [place] [address] Jeronimo Crowe M.D. 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 Conclusions * No evidence of deep or superficial vein thrombosis in the lower extremities bilaterally. . Report Signatures Finalized by RAYMOND Martinez MD on 03/13/2025 12:29 PM External Iliac: Complete External Iliac: - External Iliac: Complete External Iliac: - Common Femoral: Complete Common Femoral: Normal Common Femoral: Complete Common Femoral: Normal Femoral: Complete Femoral: Complete Femoral: - Femoral: - Peroneal: Complete Peroneal: Complete Peroneal: - Peroneal: - Profunda Femoral: - Profunda Femoral: - Profunda Femoral: - Profunda Femoral: - Popliteal: Complete Popliteal: Complete Popliteal: Normal Popliteal: Normal Posterior Tibial: Complete Posterior Tibial: Complete Posterior Tibial: - Posterior Tibial: - Gastrocnemius: - Gastrocnemius: - Gastrocnemius: - Gastrocnemius: - Soleal: - Soleal: - Soleal: - Soleal: - Great Saphenous: Complete Great Saphenous: Complete Great Saphenous: - Great Saphenous: - Small Saphenous: - Small Saphenous: - Small Saphenous: - Small Saphenous: - Normal [facility] DUPLEX VENOUS LEGS BILATERAL Patient Info Name: ARYAN VALLE Age: 55 years : 1970 Gender: Male Exam Date: 03/13/2025 11:49 AM Patient 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 Conclusions * No evidence of deep or superficial vein thrombosis in the lower extremities bilaterally. . Report Signatures Finalized by RAYMOND Martinez MD on 03/13/2025 12:29 PM External Iliac: Complete External Iliac: - External Iliac: Complete External Iliac: - Common Femoral: Complete Common Femoral: Normal Common Femoral: Complete Common Femoral: Normal Femoral: Complete Femoral: Complete Femoral: - Femoral: - Peroneal: Complete Peroneal: Complete Peroneal: - Peroneal: - Profunda Femoral: - Profunda Femoral: - Profunda Femoral: - Profunda Femoral: - Popliteal: Complete Popliteal: Complete Popliteal: Normal Popliteal: Normal Posterior Tibial: Complete Posterior Tibial: Complete Posterior Tibial: - Posterior Tibial: - Gastrocnemius: - Gastrocnemius: - Gastrocnemius: - Gastrocnemius: - Soleal: - Soleal: - Soleal: - Soleal: - Great Saphenous: Complete Great Saphenous: Complete Great Saphenous: - Great Saphenous: - Small Saphenous: - Small Saphenous: - Small Saphenous: - Small Saphenous: - Dictated by: BRIAN LIN on ThuMar 13, 2025 12:30:21 PM EDT Transcribed by: BRIAN LIN on ThuMar 13, 2025 12:30:21 PM EDT Finalized by: BRIAN LIN on ThuMar 13, 2025 12:30:[address] 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 Conclusions * No evidence of deep or superficial vein thrombosis in the lower extremities bilaterally. . Report Signatures Finalized by Maury Lin MD, RPVI on 03/13/2025 12:29 PM External Iliac: Complete External Iliac: - External Iliac: Complete External Iliac: - Common Femoral: Complete Common Femoral: Normal Common Femoral: Complete Common Femoral: Normal Femoral: Complete Femoral: Complete Femoral: - Femoral: - Peroneal: Complete Peroneal: Complete Peroneal: - Peroneal: - Profunda Femoral: - Profunda Femoral: - Profunda Femoral: - Profunda Femoral: - Popliteal: Complete Popliteal: Complete Popliteal: Normal Popliteal: Normal Posterior Tibial: Complete Posterior Tibial: Complete Posterior Tibial: - Posterior Tibial: - Gastrocnemius: - Gastrocnemius: - Gastrocnemius: - Gastrocnemius: - Soleal: - Soleal: - Soleal: - Soleal: - Great Saphenous: Complete Great Saphenous: Complete Great Saphenous: - Great Saphenous: - Small Saphenous: - Small Saphenous: - Small Saphenous: - Small Saphenous: - FUJI SYNAPSE Brian Rosario MD - 03/13/2025 Patient Info Name: ARYAN VALLE Age: 55 years : 1970 Gender: Male Exam Date: 03/13/2025 11:49 AM Patient 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 Conclusions * No evidence of deep or superficial vein thrombosis in the lower extremities bilaterally. . Report Signatures Finalized by Maury Lin MD, RPVI on 03/13/2025 12:29 PM External Iliac: Complete External Iliac: - External Iliac: Complete External Iliac: - Common Femoral: Complete Common Femoral: Normal Common Femoral: Complete Common Femoral: Normal Femoral: Complete Femoral: Complete Femoral: - Femoral: - Peroneal: Complete Peroneal: Complete Peroneal: - Peroneal: - Profunda Femoral: - Profunda Femoral: - Profunda Femoral: - Profunda Femoral: - Popliteal: Complete Popliteal: Complete Popliteal: Normal Popliteal: Normal Posterior Tibial: Complete Posterior Tibial: Complete Posterior Tibial: - Posterior Tibial: - Gastrocnemius: - Gastrocnemius: - Gastrocnemius: - Gastrocnemius: - Soleal: - Soleal: - Soleal: - Soleal: - Great Saphenous: Complete Great Saphenous: Complete Great Saphenous: - Great Saphenous: - Small Saphenous: - Small Saphenous: - Small Saphenous: - Small Saphenous: - [facility] UrinalysisOrdered By: Alejandro Barillas on 03-13-2025 Bacteria Auto Ql (U) Few Abnormal None Se en /hpf [facility] Bilirubin Ql (U) Positive Abnormal Negative [facility] th Comment on above: False positive urine bilirubins can occur in the setting of a large amount of hemoglobin and secondary to medications including anti-inflammatory agents, rifampin, and pyridium. Clarity Refractometry automated (U) Cloudy Abnormal Clear [facility] Color (U) Yellow Colorless, Yellow [facility] Epithelial cells.squamous Auto (Urine sed) [#/Area] [facility] Glucose Auto test strip (U) [Mass/Vol] Negative Negative mg/dL [facility] Hemoglobin Auto test strip Ql (U) Negative Negative [facility] Hyaline casts Auto (Urine sed) [#/Area] 3-5 Abnormal [facility] Interpretation and review of laboratory results Abnormal [facility] Ketones (U) [Mass/Vol] Negative Negat brittney mg/dL [facility] Leukocyte clumps Auto (Urine sed) [#/Area] Rare Abnormal None Seen /hpf [facility] Leukocyte esterase Auto test strip Ql (U) Negative Negative [facility] Mucus Auto (Urine sed) [#/Area] Rare None Seen, Rare /lpf [facility] Nitrite Auto test strip Ql (U) Negative Negative [facility] pH (U) 6 [pH] 5.0 - 7.0 [facility] Protein (U) [Mass/Vol] Negative Negat brittney mg/dL [facility] RBC Auto (Urine sed) [#/Area] [facility] Specific gravity (U) [Rel density] 1.021 1.005 - 1.025 [facility] Unidentified crystals LM.HPF (Urine sed) [#/Area] None Seen None Seen /hpf [facility] Comment on above: This is a corrected result. Previous result was Rare /hpf on 03/13/2025 at 1858 EDT Urobilinogen (U) [Mass/Vol] mg/dL Abnormal NINF - 2.0 mg/dL [facility] WBC Auto (Urine sed) [#/Area] 1 [facility] Microscopic examinat ion is performed on all urinalysis samples and only positive findings are reported. The test for blood on the chemical analytic portion of urinalysis may also be positive due to hemoglobinuria and myoglobinuria and if red blood cells are present they are quantified by microscopic examination. [facility] XR CHEST PA/APon 03-13-2025 XR CHEST PA/AP EXAMINATION: PORTABLE AP UPRIGHT CHEST: 03/13/2025 AT 1126 HOURS HISTORY: Injury/Trauma or Illness?:Illness/Other How long have you had these symptoms (acute/chronic)?:Acute crackles COMPARISON FILMS: AP chest: 03/11/2025. IMPRESSION: FINDINGS/ 1. There are no focal infiltrates, pleural effusions, pulmonary edema, or pneumothorax. 2. Trachea remains midline. The aorta is normal contour. The heart size seems normal. 3. There are old, healed rib fractures on the left. Rest of the visualized osseous structures appear intact. [employer] Workstation ID: [id number] Dictated by: SHAQ BEE on ThuMar 13, 2025 11:57:14 AM EDT Transcribed by: YOUSIF BELTRAN on ThuMar 13, 2025 12:10:18 PM EDT Finalized by: SHAQ BEE on ThuMar 13, 2025 12:32:[address] [facility] Comment on above: Order Comment: Injur y/Trauma or Illness?:Illness/Other How long have you had these symptoms (acute/chronic)?:Acute Reason for exam?:crackles History of cancer?:u Surgeries, chemotherapy, or radiation?:u Type of Exam?:Initial Additional signs and symptoms?:n XR Chest PA and Abdomen APon 03-13-2025 FINDINGS/ 1. There are no focal infiltrates, pleural effusions, pulmonary edema, or pneumothorax. 2. Trachea remains midline. The aorta is normal contour. The heart size seems normal. 3. There are old, healed rib fractures on the left. Rest of the visualized osseous structures appear intact. [employer] Workstation ID: [id number] GE RIS EXAMINATION: PORTABLE AP UPRIGHT CHEST: 03/13/2025 AT 1126 HOURS HISTORY: Injury/Trauma or Illness?:Illness/Other How long have you had these symptoms (acute/chronic)?:Acute crackles COMPARISON FILMS: AP chest: 03/11/2025. GE RIS Shaq Bee MD - 03/13/2025 EXAMINATION: PORTABLE AP UPRIGHT CHEST: 03/13/2025 AT 1126 HOURS HISTORY: Injury/Trauma or Illness?:Illness/Other How long have you had these symptoms (acute/chronic)?:Acute crackles COMPARISON FILMS: AP chest: 03/11/2025. IMPRESSION: FINDINGS/ 1. There are no focal infiltrates, pleural effusions, pulmonary edema, or pneumothorax. 2. Trachea remains midline. The aorta is normal contour. The heart size seems normal. 3. There are old, healed rib fractures on the left. Rest of the visualized osseous structures appear intact. [employer] Workstation ID: [id number] [facility] Radiology Study observation (narrative) [facility] XR Chest PA and Abdomen APOr dered By: Shaq Bee on 03-13-2025 [facility] Work Phone: BASIC METABOLIC PANELon 02-21 Anion gap [Moles/Vol] 13 mmol/L Normal 10-20 [facility] Comment on above: Order Comment: [facility] has implemented the eGFR calculation approach that does not have a coefficient for race that conforms to the NKF-ASN Task Force Recommendations. Performed By: #### 4 [id number] #### [facility] [address] [place], [place] [address] Dinah Estrada M.D. [id number] Calcium [Mass/Vol] 8.6 mg/dL Normal 8.4-10.2 Comment on above: Order Comment: [facility] has implemented the eGFR calculation approach that does not have a coefficient for race that conforms to the NKF-ASN Task Force Recommendations. Performed By: #### 4 [id number] #### [facility] [address] [place], [place] [address] Dinah Estrada M.D. [id number] Chloride [Moles/Vol] 96 mmol/L Low 98-108 [facility] Comment on above: Order Comment: [facility] has implemented the eGFR calculation approach that does not have a coefficient for race that conforms to the NKF-ASN Task Force Recommendations. Performed By: #### 4 [id number] #### [facility] [address] [place], [place] [address] Dinah Estrada M.D. [id number] Creatinine [Mass/Vol] 0.65 mg/dL Normal 0.50-1.30 [facility] Comment on above: Order Comment: [facility] has implemented the eGFR calculation approach that does not have a coefficient for race that conforms to the NKF-ASN Task Force Recommendations. Result Comment: Virgilio Ramos Performed By: #### 4 [id number] #### [facility] [address] [place], [place] [address] Dinah Estrada M.D. [id number] EGFR 112 mL/min/1.73 m2 Normal >=60 Comment on above: Order Comment: [facility] has implemented the eGFR calculation approach that does not have a coefficient for race that conforms to the NKF-ASN Task Force Recommendations. Result Comment: Autumn mated GFR was calculated using the 2020 CKD-EPI creatinine equation. Performed By: #### 4 [id number] #### [facility] [address] [place], [place] [address]Marcus Estrada M.D. [id number] Glucose [Mass/Vol] 176 mg/dL High 65-99 Comment on above: Order Comment: [facility] has implemented the eGFR calculation approach that does not have a coefficient for race that conforms to the NKF-ASN Task Force Recommendations. Performed By: #### 4 [id number] #### [facility] [address] [place], [place] [address] Dinah Estrada M.D. [id number] HCO3 (Bld) [Moles/Vol] 25 mmol/L Normal 21-32 [facility] Comment on above: Order Comment: [facility] has implemented the eGFR calculation approach that does not have a coefficient for race that conforms to the NKF-ASN Task Force Recommendations. Performed By: #### 4 6124 #### [facility] [address] [place], [place] [address] Dinah Estrada M.D. [id number] Potassium [Moles/Vol] 3.4 mmol/L Low 3.5-5.1 [facility] Comment on above: Order Comment: [facility] has implemented the eGFR calculation approach that does not have a coefficient for race that conforms to the NKF-ASN Task Force Recommendations. Performed By: #### 4 6124 #### [facility] [address] [place], [place] [address] Dinah Estrada M.D. [id number] Sodium [Moles/Vol] 131 mmol/L Low 135-145 Comment on above: Order Comment: [facility] has implemented the eGFR calculation approach that does not have a coefficient for race that conforms to the NKF-ASN Task Force Recommendations. Performed By: #### 4 6124 #### [facility] [address] [place], [place] [address] Dinah Estrada M.D. [id number] Urea nitrogen [Mass/Vol] 4 mg/dL Low 8-25 Comment on above: Order Comment: [facility] has implemented the eGFR calculation approach that does not have a coefficient for race that conforms to the NKF-ASN Task Force Recommendations. Performed By: #### 4 6124 #### [facility] [address] [place] [address] Dinah Estrada M.D. [id number] Urea nitrogen/Creatinine [Mass ratio] 6.2 mg/mg Low 10.0-20.0 Comment on above: Order Comment: [facility] has implemented the eGFR calculation approach that does not have a coefficient for race that conforms to the NKF-ASN Task Force Recommendations. Performed By: #### 4 6124 #### [facility] [address] [place], [place] [address] Dinah Estrada M.D. [id number] CBC WITH AUTO DIFFERENTIALon 03-11-2025 AUTO NRBC 0.0 % Normal Comment on above: Performed By: #### L [id number] #### [facility] [address] [place], [place] [address] Dinah Estrada M.D. [id number] AUTO NRBC ABS COUNT 0.00 K/mcL Normal 0.00-0.00 [facility] Comment on above: Performed By: #### L [id number] #### [facility] [address] [place], [place] [address] Dinah Estrada M.D. [id number] BASOPHILS ABSOLUTE COUNT 0.03 K/mcL Normal 0.00-0.30 Comment on above: Performed By: #### L [id number] #### [facility] [address] [place], [place] [address] Dinah Estrada M.D. [id number] Basophils/100 WBC (Bld) 0.7 % Normal [facility] Comment on above: Performed By: #### L [id number] #### [facility] [address] [place] [address] Dinah Estrada M.D. [id number] Eosinophils (Bld) [#/Vol] 0.08 10*3/uL Normal 0.00-0.50 Comment on above: Performed By: #### L [id number] #### [facility] [address] [place] [address] Dinah Estrada M.D. [id number] Eosinophils/100 WBC (Bld) 1.9 % Normal Comment on above: Performed By: #### L [id number] #### [facility] [address] [place] [address] Dinah Estrada M.D. [id number] Erythrocyte distribution width (RBC) [Ratio] 14.5 % Normal 11.6-14.8 Comment on above: Performed By: #### L [id number] #### [facility] [address] [place] [address] Dinah Estrada M.D. [id number] Hematocrit (Bld) [Volume fraction] 30.2 % Low 41.0-53.0 Comment on above: Performed By: #### L [id number] #### [facility] [address] [place] [address] Dinah Estrada M.D. [id number] Hemoglobin (Bld) [Mass/Vol] 10.5 g/dL Low 13.5-17.5 Comment on above: Performed By: #### L [id number] #### [facility] [address] [place] [address] Dinah Estrada M.D. [id number] IG ABSOLUTE 0.03 K/mcL Normal 0.00-0.30 Comment on above: Performed By: #### L [id number] #### [facility] [address] [place] [address] Dinah Estrada M.D. [id number] IG PERCENT 0.70 % Normal Comment on above: Result Comment: The IG parameter is the percentage of metamyelocytes, myelocytes and promyelocytes. An immature granulocyte count (IG) of 1% or more suggests the possibility of infection, an IG count of 3% is very likely related to an infection. Performed By: #### L [id number] #### [facility] [address] [place] [address] Dinah Estrada M.D. [id number] Lymphocytes (Bld) [#/Vol] 0.77 10*3/uL Low 0.90-4.00 Comment on above: Performed By: #### L [id number] #### [facility] [address] [place] [address] Dinah Estrada M.D. [id number] Lymphocytes/100 WBC (Bld) 18.2 % Normal Comment on above: Performed By: #### L [id number] #### [facility] [address] [place] [address] Dinah Estrada M.D. [id number] MCH (RBC) [Entitic mass] 39.9 pg High 26.0-34.0 Comment on above: Performed By: #### L [id number] #### [facility] [address] [place] [address] Dinah Estrada M.D. [id number] MCV (RBC) [Entitic vol] 114.8 fL High 80.0-100.0 [facility] Comment on above: Performed By: #### L [id number] #### [facility] [address] [place] [address] Dinah Estrada M.D. [id number] MEAN CORPUSCULAR HEMOGLOBIN CONC 34.8 g/dL Normal 31.0-37.0 Comment on above: Performed By: #### L [id number] #### [facility] [address] [place], [place] [address] Dinah Estrada M.D. [id number] Monocytes (Bld) [#/Vol] 0.45 10*3/uL Normal 0.30-0.90 Comment on above: Performed By: #### L [id number] #### [facility] [address] [place], [place] [address] Dinah Estrada M.D. [id number] Monocytes/100 WBC (Bld) 10.7 % Normal [facility] Comment on above: Performed By: #### L [id number] #### [facility] [address] [place] [address] Dinah Estrada M.D. [id number] NEUTROPHILS ABSOLUTE COUNT 2.86 K/mcL Normal 1.70-7.00 Comment on above: Performed By: #### L [id number] #### [facility] [address] [place] [address] Dinah Estrada M.D. [id number] Neutrophils/100 WBC (Bld) 67.8 % Normal Comment on above: Performed By: #### L [id number] #### [facility] [address] [place], [place] [address] Dinah Estrada M.D. [id number] Platelet mean volume (Bld) [Entitic vol] 10.3 fL Normal 9.4-12.4 Comment on above: Performed By: #### L [id number] #### [facility] [address] [place], [place] [address] Dinah Estrada M.D. [id number] Platelets (Bld) [#/Vol] 78 10*3/uL Low 150-400 [facility] Comment on above: Performed By: #### L [id number] #### [facility] [address] [place], [place] [address] Dinah Estrada M.D. [id number] RBC (Bld) [#/Vol] 2.63 10*6/uL Low 4.50-5.90 [facility] Comment on above: Performed By: #### L [id number] #### [facility] [address] [place], [place] [address] Dinah Estrada M.D. [id number] WBC (Bld) [#/Vol] 4.22 10*3/uL Low 4.50-11.00 [facility] Comment on above: Performed By: #### L [id number] #### [facility] [address] [place], [place] [address] [address]. [id number] CT ABDOMEN PELVIS WITH IV CO NTRAST ONLYon 03-11-2025 CT ABDOMEN PELVIS WITH IV CONTRAST ONLY EXAMINATION: CT ABDOMEN PELVIS WITH IV CONTRAST ONLY HISTORY: ORDERING SYSTEM PROVIDED HISTORY: Abdominal pain, inguinal hernia, TECHNOLOGIST PROVIDED HISTORY: Illness/Other Reason for exam: Abdominal pain, inguinal hernia Encounter Type: Initial Additional signs and symptoms: Abdominal pain, inguinal hernia ORDERING SYSTEM PROVIDED DIAGNOSIS CODES: COMPARISON: None. TECHNIQUE: Following the uneventful administration of Isovue-370 IV contrast, helical imaging of the abdomen and pelvis was performed. Multiplanar reformats are submitted. Dose reduction techniques were achieved by using: automated exposure control and/or adjustment of mA and/or kV according to patient size and/or use of iterative reconstruction technique. IOPAMIDOL 370 MG IODINE/ML (76 %) INTRAVENOUS SOLUTION - 75 mL, FINDINGS: Limited evaluation of the lung bases demonstrates trace left pleural fluid. Cirrhotic appearance of the liver. Portal veins. Small layering gallstones. Splenic with collateral vessel formation. Moderate to large volume ascites. Negative for acute adrenal or pancreatic abnormality. Symmetric size of the kidneys without hydronephrosis. Decompressed urinary bladder. Left inguinal hernia containing ascites noted. No bowel obstruction. No significant bowel wall thickening. Normal appendix. No free intra-abdominal air. Negative for suspicious lymphadenopathy. Left hip prosthesis in place. Negative for acute bony findings. IMPRESSION: 1. Cirrhotic appearance of the liver with moderate to large volume ascites, including ascites seen within a left inguinal hernia without bowel involvement. 2. Hepatomegaly collateral vessel formation suggesting sequelae of portal hypertension. Visualized hepatic vasculature is patent. 3. Trace left pleural fluid. Workstation ID: [id number] Dictated by: VIVIAN LE on Sat Mar 11, 2025 8:54:06 PM EDT Transcribed by: VIVIAN LE on Sat Mar 11, 2025 8:54:06 PM EDT Finalized by: VIVIAN LE on Sat Mar 11, 2025 8:54:06 PM EDT Normal Comment on above: Order Comment: Injur y/Trauma or Illness?:Illness/Other How long have you had these symptoms (acute/chronic)?:Acute Reason for exam?:Abdominal pain, inguinal hernia Type of Exam?:Initial Additional signs and symptoms?:Abdominal pain, inguinal hernia ED Prov Noteon 03-11-2025 ED [facility] [address] [place] [id number] NAME: Aryan Valle AGE: 55 y.o. PCP: Tana Farmre MD CSN: [id number] Chief Complaint: Leg Swelling CLINICAL IMPRESSION: 1. Leg swelling 2. Alcoholic cirrhosis of liver with ascites (HCC) 3. Unilateral inguinal hernia without obstruction or gangrene, recurrence not specified 4. Abnormal LFTs EMERGENCY DEPARTMENT COURSE AND MEDICAL DECISION MAKING: Medical Decision Making This is a 55-year-old male presenting to the emergency department today for leg swelling and abdominal distention. He also has an inguinal hernia and was hoping that it could be repaired today. On my exam Aryan appears jaundice. He has noted to have abdominal distention without tenderness. Bilateral lower extremity edema is noted. Neurovascularly intact. Vital signs obtained and are not concerning. He is noted to have an inguinal hernia on the left which is soft. He was recently evaluated at the [facility] but eloped from the emergency department while waiting on a bed. Labs obtained and are abnormal. Complete blood count with anemia, hemoglobin is 10.5 however it is stable compared to his recent lab drawl. Basic metabolic panel with a potassium of 3.4. He was provided with 20 mill equivalents of potassium. Magnesium level is normal. Troponin is negative x 2. BNP and lipase are normal. Hepatic function panel as well as PT/INR are abnormal. Hepatic function panel with an elevated total bilirubin of 19.4 similar to his recent labs from a few days ago. INR is elevated as well at 2.5. Chest x-ray obtained showing a nonacute portable chest with slight atelectasis suggested in the lung base. CT scan of the abdomen and pelvis was obtained and he is noted to have a cirrhotic appearance of the liver with moderate to large volume ascites including ascites seen in the left inguinal hernia without bowel involvement. He does not appear to have an incarcerated hernia and I do not feel emergency surgery is warranted at this time. He does have multiple other issues today including jaundice, elevated bilirubin, abdominal ascites, and leg swelling. He sees a patient safety tech out of [facility]. I feel he would benefit from paracentesis however he is being seen on Thursday night and we do not have this service available until Thursday. I discussed options with Aryan. He has abnormal liver function tests as well as large volume ascites. I recommended transfer to [place] for hepatology evaluation and further treatment. Aryan however declines transfer at this time. He states that he has been jaundiced for over 4 months, he has had a paracentesis about a year ago and it was so painful he does not want to do it again. He has known alcoholic cirrhosis of the liver and continues drinking alcohol. No evidence of bleeding today. He is noted to have bilateral lower extremity edema. I feel it is likely from fluid overload from liver failure. Neurovascularly intact. I am unable to rule out the possibility of a DVT at this time as we do not have 24-hour ultrasound capabilities. He has noted to have some discoloration medially to the left lower extremity however it is nonblanchable and appears more petechial. Family was concerned for cellulitis and requested antibiotics. No leukocytosis noted in labs but we will cover with a prescription for Keflex. He is chronically ill and has multiple medical problems but due to his lab abnormalities, leg swelling, and abdominal swelling I feel he would benefit from transfer for further evaluation and treatment however he declines. I offered to transfer him to the [facility] where he was recently seen however he declines transfer to [place] as well. I offered to attempt to admit him here at however I feel that the hospitalist would likely decline the admission given his elevated bilirubin however he does not want to be admitted at all. I have recommended transfer for further care but Aryan Valle refuses. The risks (including but not limited to, suffering and ) as well as the benefits were explained to the him. Questions were sought and answered and the he voiced understanding. However, Aryan Valle still refuses admission or transfer. I have encouraged him to return to have their evaluation completed, if he changes his mind. I have also instructed Aryan Valle on the importance of immediate follow-up and to return for any worsening or worrisome concerns, or if he changes his her mind. Aryan Valle appears competent to make medical decisions at this time. DISPOSITION: Patient is being discharged to home New Prescriptions cephALEXin (KEFLEX) 500 MG capsule Take 1 (one) capsule (500 mg total) by mouth 4 (four) times a day for 10 days . (more content not included)... Normal HEPATIC FUNCTION PANELon Albumin [Mass/Vol] 2.8 g/dL Low 3.2-5.2 Comment on above: Performed By: #### L AB295 #### [facility] [address] [place], [place] [address] Dinah Estrada M.D. [id number] ALP [Catalytic activity/Vol] 208 U/L High 40-150 Comment on above: Performed By: #### L AB295 #### [facility] [address] [place], [place] [address] Dinah Estrada M.D. [id number] ALT [Catalytic activity/Vol] 47 U/L Normal 0-50 U/L Comment on above: Performed By: #### L AB295 #### [facility] [address] [place], [place] [address] Dinah Estrada M.D. [id number] AST [Catalytic activity/Vol] 108 U/L High 0-50 U/L Comment on above: Performed By: #### L AB295 #### [facility] [address] [place], [place] [address] Dinah Estrada M.D. [id number] Bilirubin [Mass/Vol] 19.4 mg/dL High 0.0-1.3 [facility] Comment on above: Performed By: #### L AB295 #### [facility] [address] [place], [place] [address] Dinah Estrada M.D. [id number] Bilirubin.indirect [Mass/Vol] 9.2 mg/dL High 0.0-0.4 Comment on above: Performed By: #### L AB295 #### [facility] [address] [place], [place] [address] Dinah Estrada M.D. [id number] Protein [Mass/Vol] 7.6 g/dL Normal 6.0-8.0 Comment on above: Result Comment: Spec imen Icteric Performed By: #### L AB295 #### [facility] [address] [place], [place] [address] Dinah Estrada M.D. [id number] LIPASEon 03-11-2025 Lipase [Catalytic activity/Vol] 43 U/L Normal 15-65 Comment on above: Performed By: #### L AB295 #### [facility] [address] [place], [place] [address] Dinah Estrada M.D. [id number] MAGNESIUM LEVELon 03-11-2025 Magnesium [Mass/Vol] 1.7 mg/dL Normal 1.6-2.4 [facility] Comment on above: Performed By: #### 4 6109 #### [facility] [address] [place], [place] [address] Dinah Estrada M.D. [id number] MORPHOLOGYon 03-11-2025 PLATELET ESTIMATE Decreased Abnormal Normal Comment on above: Performed By: #### L AB295 #### [facility] [address] [place], [place] [address] Dinah Estrada M.D. [id number] RBC MORPH SCAN Normal Normal Comment on above: Result Comment: RBC Indices confirmed with manual peripheral smear review. Performed By: #### L AB295 #### [facility] [address] [place], [place] [address] Dinah Estrada M.D. [id number] NT PRO BNPon 03-11-2025 Natriuretic peptide B (Bld) [Mass/Vol] 171 pg/mL Normal 0-300 Comment on above: Order Comment: Pride Study Cut-offs Rule In: < /= 50 Years >450 pg/mL 51 Years - 75 Years >900 pg/mL 76 Years - 99 Years >1800 pg/mL Rule Out: All patients <300 pg/mL Performed By: #### 4 7395 #### [facility] [address] [place], [place] [address] Dinah Estrada M.D. [id number] PT/INRon 03-11-2025 INR Coag (PPP) [Relative time] 2.5 {INR} High 0.8-1.1 Comment on above: Order Comment: Charis henson the induction phase of oral anticoagulation, the INR may not reflect the anticoagulation status of the patient. Therapeutic ranges for INR's are: Most clinical situations: INR 2.0-3.0 Mechanical Prosthetic Valve: INR 2.5-3.5 Critical: INR >5.0 Performed By: #### 4 6391 #### [facility] [address] [place], [place] [address] Dinah Estrada M.D. [id number] PT Coag (PPP) [Time] 27.0 s High 11.8-14.3 [facility] Comment on above: Order Comment: Charis henson the induction phase of oral anticoagulation, the INR may not reflect the anticoagulation status of the patient. Therapeutic ranges for INR's are: Most clinical situations: INR 2.0-3.0 Mechanical Prosthetic Valve: INR 2.5-3.5 Critical: INR >5.0 Performed By: #### 4 6391 #### [facility] [address] [place], [place] [address] Dinah Estrada M.D. [id number] TROPONIN X 2 (NOW AND REPEAT IN 2 HOURS)on 03-11-2025 TROPONIN T DELTA CHANGE INTERPRETATION No biomarker evidence of cardiac injury. Normal Comment on above: Performed By: #### 4 6608 #### [facility] [address] [place], [place] [address] Dinah Estrada M.D. [id number] TROPONIN T DELTA DIFFERENCE -1 ng/L Normal < = -/+ 7 change Comment on above: Performed By: #### 4 6608 #### [facility] [address] [place], [place] [address] Dinah Estrada M.D. [id number] TROPONIN T NG/L 19 ng/L Normal <=22 Comment on above: Performed By: #### 4 6608 #### [facility] [address] [place], [place] [address] Dinah Estrada M.D. [id number] BASELINE TROPONIN T NG/L 20 ng/L Normal <=22 Comment on above: Performed By: #### 4 6608 #### [facility] [address] [place], [place] [address] Dinah Estrada M.D. [id number] TROPONIN T INTERPRETATION Normal Normal Comment on above: Performed By: #### 4 6608 #### [facility] [address] [place], [place] [address] Dinah Estrada M.D. [id number] XR CHEST PA/APon 03-11-2025 XR CHEST PA/AP EXAMINATION: XR CHEST PA/AP 03/11/2025 7:04 pm HISTORY: ORDERING SYSTEM PROVIDED HISTORY: Swelling, TECHNOLOGIST PROVIDED HISTORY: Illness/Other Reason for exam: Swelling Cancer History: u Surgery, RadiationHistory: u Encounter Type: Initial Additional signs and symptoms: Pt stated that he he is experiencing fluid retention in his abdomen and lower legs ORDERING SYSTEM PROVIDED DIAGNOSIS CODES: COMPARISON: Two-view chest from 01/27/2016. FINDINGS: Trachea is midline. Mediastinum is not widened. Heart size is unremarkable. There may be slight atelectasis in the lung bases. No infiltrate or nodule is noted. No pneumothorax is noted. Diaphragm and bony elements are intact. IMPRESSION: Nonacute portable chest with slight atelectasis suggested in the lung bases. Workstation ID: [id number] Dictated by: RITA CASTILLO on Sat Mar 11, 2025 8:37:15 PM EDT Transcribed by: RITA CASTILLO on Sat Mar 11, 2025 8:37:15 PM EDT Finalized by: RITA CASTILLO on Sat Mar 11, 2025 8:37:15 PM EDT Normal Comment on above: Order Comment: Injur y/Trauma or Illness?:Illness/Other How long have you had these symptoms (acute/chronic)?:Acute Reason for exam?:Swelling History of cancer?:u Surgeries, chemotherapy, or radiation?:u Type of Exam?:Initial Additional signs and symptoms?:Pt stated that he he is experiencing fluid retention in his abdomen and lower legs CBC W Auto Differential pane l (Bld)on 03-07-2025 Basophils (Bld) [#/Vol] 0.00 10*3/uL Normal <0.11 [facility] Comment on above: Order Comment: Speci men Type: BLOOD SPECIMEN Ordering Facility: [facility] Address: [address] [place] [address] Performed By: #### 5 7021-8 #### [facility] CLIA [id number] [address] [place] [address] [place] Basophils/100 WBC (Bld) 0.0 % Normal C [facility] Comment on above: Order Comment: Speci men Type: BLOOD SPECIMEN Ordering Facility: [facility] Address: [address] [place] [address] Performed By: #### 5 7021-8 #### [facility] CLIA [id number] [address] [place] [address] [place] Differential cell count method Nom (Bld) Manual Normal [facility] Comment on above: Order Comment: Speci men Type: BLOOD SPECIMEN Ordering Facility: [facility] Address: [address] [place] [address] Performed By: #### 5 7021-8 #### [facility] CLIA [id number] [address] [place] [address] [place] Eosinophils (Bld) [#/Vol] 0.15 10*3/uL Normal <0.46 [facility] Comment on above: Order Comment: Speci men Type: BLOOD SPECIMEN Ordering Facility: [facility] Address: [address] [place] [address] Performed By: #### 5 7021-8 #### [facility] CLIA [id number] [address] [place] [address] [place] Eosinophils/100 WBC (Bld) 3.5 % Normal [facility] Comment on above: Order Comment: Speci men Type: BLOOD SPECIMEN Ordering Facility: [facility] Address: [address] [place] [address] Performed By: #### 5 7021-8 #### [facility] CLIA [id number] [address] [place] [address] [place] Erythrocyte distribution width (RBC) [Ratio] 14.6 % Normal 11.5-15.0 [facility] Comment on above: Order Comment: Speci men Type: BLOOD SPECIMEN Ordering Facility: [facility] Address: [address] [place] [address] Performed By: #### 5 7021-8 #### [facility] CLIA [id number] [address] [place] [address] [place] Hematocrit (Bld) [Volume fraction] 31.5 % Low 39.0-51.0 [facility] Comment on above: Order Comment: Speci men Type: BLOOD SPECIMEN Ordering Facility: [facility] Address: [address] [place] [address] Performed By: #### 5 7021-8 #### [facility] CLIA [id number] [address] [place] [address] [place] Hemoglobin (Bld) [Mass/Vol] 10.8 g/dL Low 13.0-17.0 [facility] Comment on above: Order Comment: Speci men Type: BLOOD SPECIMEN Ordering Facility: [facility] Address: [address] [place] [address] Performed By: #### 5 7021-8 #### [facility] CLIA [id number] [address] [place] [address] [place] Lymphocytes (Bld) [#/Vol] 0.41 10*3/uL Low 1.00-4.00 [facility] Comment on above: Order Comment: Speci men Type: BLOOD SPECIMEN Ordering Facility: [facility] Address: [address] [place] [address] Performed By: #### 5 7021-8 #### [facility] CLIA [id number] [address] [place] [address] [place] Lymphocytes/100 WBC (Bld) 9.6 % Normal [facility] Comment on above: Order Comment: Speci men Type: BLOOD SPECIMEN Ordering Facility: [facility] Address: [address] [place] [address] Performed By: #### 5 7021-8 #### [facility] CLIA [id number] [address] [place] [address] [place] MCH (RBC) [Entitic mass] 39.0 pg High 26.0-34.0 [facility] Comment on above: Order Comment: Speci men Type: BLOOD SPECIMEN Ordering Facility: [facility] Address: [address] [place] [address] Performed By: #### 5 7021-8 #### [facility] CLIA [id number] [address] [place] [address] [place] MCHC (RBC) [Mass/Vol] 34.3 g/dL Normal 30.5-36.0 [facility] Comment on above: Order Comment: Speci men Type: BLOOD SPECIMEN Ordering Facility: [facility] Address: [address] [place] [address] Performed By: #### 5 7021-8 #### [facility] CLIA [id number] [address] [place] [address] [place] MCV (RBC) [Entitic vol] 113.7 fL High 80.0-100.0 C [facility] Comment on above: Order Comment: Speci men Type: BLOOD SPECIMEN Ordering Facility: [facility] Address: [address] [place] [address] Performed By: #### 5 7021-8 #### [facility] CLIA [id number] [address] [place] [address] [place] Monocytes (Bld) [#/Vol] 0.22 10*3/uL Normal <0.87 [facility] Comment on above: Order Comment: Speci men Type: BLOOD SPECIMEN Ordering Facility: [facility] Address: [address] [place] [address] Performed By: #### 5 7021-8 #### [facility] CLIA [id number] [address] [place] [address] [place] Monocytes/100 WBC (Bld) 5.2 % Normal [facility] Comment on above: Order Comment: Speci men Type: BLOOD SPECIMEN Ordering Facility: [facility] Address: [address] [place] [address] Performed By: #### 5 7021-8 #### [facility] CLIA [id number] [address] [place] [address] [place] Neutrophils (Bld) [#/Vol] 3.49 10*3/uL Normal 1.45-7.50 [facility] Comment on above: Order Comment: Speci men Type: BLOOD SPECIMEN Ordering Facility: [facility] Address: [address] [place] [address] Performed By: #### 5 7021-8 #### [facility] CLIA [id number] [address] [place] [address] [place] Neutrophils/100 WBC (Bld) 81.7 % Normal [facility] Comment on above: Order Comment: Speci men Type: BLOOD SPECIMEN Ordering Facility: [facility] Address: [address] [place] [address] Performed By: #### 5 7021-8 #### [facility] CLIA [id number] [address] [place] [address] [place] Nucleated RBC (Bld) [#/Vol] 10*3/uL Normal <0.01 [facility] Comment on above: Order Comment: Speci men Type: BLOOD SPECIMEN Ordering Facility: [facility] Address: [address] [place] [address] Performed By: #### 5 7021-8 #### [facility] CLIA [id number] [address] [place] [address] [place] Nucleated RBC/100 WBC (Bld) [Ratio] 0.0 /100 WBC Normal [facility] Comment on above: Order Comment: Speci men Type: BLOOD SPECIMEN Ordering Facility: [facility] Address: [address] [place] [address] Performed By: #### 5 7021-8 #### [facility] CLIA [id number] [address] [place] [address] [place] Platelet mean volume (Bld) [Entitic vol] 9.8 fL Normal 9.0-12.7 [facility] Comment on above: Order Comment: Speci men Type: BLOOD SPECIMEN Ordering Facility: [facility] Address: [address] [place] [address] Performed By: #### 5 7021-8 #### [facility] CLIA [id number] [address] [place] [address] [place] Platelets (Bld) [#/Vol] 75 10*3/uL Low 150-400 C [facility] Comment on above: Order Comment: Speci men Type: BLOOD SPECIMEN Ordering Facility: [facility] Address: [address] [place] [address] Result Comment: No c lot detected. Performed By: #### 5 7021-8 #### [facility] CLIA [id number] [address] [place] [address] [place] Platelets Estimate (Bld) [#/Vol] Decreased Normal [facility] Comment on above: Order Comment: Speci men Type: BLOOD SPECIMEN Ordering Facility: [facility] Address: [address] [place], [place] [address] Performed By: #### 5 7021-8 #### [facility] CLIA [id number] [address] [place] [address] [place] Polychromasia LM Ql (Bld) Slight Normal [facility] Comment on above: Order Comment: Speci men Type: BLOOD SPECIMEN Ordering Facility: [facility] Address: [address] [place] [address] Performed By: #### 5 7021-8 #### [facility] CLIA [id number] [address] [place] [address] [place] RBC (Bld) [#/Vol] 2.77 10*6/uL Low 4.20-6.00 [facility] Comment on above: Order Comment: Speci men Type: BLOOD SPECIMEN Ordering Facility: [facility] Address: [address] [place] [address] Performed By: #### 5 7021-8 #### [facility] CLIA [id number] [address] [place] [address] [place] RED CELL MORPH Reviewed: unremarkable Normal [facility] Comment on above: Order Comment: Speci men Type: BLOOD SPECIMEN Ordering Facility: [facility] Address: [address] [place] [address] Performed By: #### 5 7021-8 #### [facility] CLIA [id number] [address] [place] [address] [place] WBC (Bld) [#/Vol] 4.27 10*3/uL Normal 3.70-11.00 [facility] Comment on above: Order Comment: Speci men Type: BLOOD SPECIMEN Ordering Facility: [facility] Address: [address] [place] [address] Performed By: #### 5 7021-8 #### [facility] CLIA [id number] [address] [place], [place] [address] [place] Comprehensive metabolic 2000 panelon 03-07-2025 Albumin [Mass/Vol] 3.0 g/dL Low 3.9-4.9 [facility] Comment on above: Order Comment: Speci men Type: BLOOD SPECIMEN Ordering Facility: [facility] Address: [address] [place] [address] Performed By: #### 3 040-3, 59438-7, #### [facility] CLIA [id number] [address] [place] [address] [place] ALP [Catalytic activity/Vol] 216 U/L High 38-113 [facility] Comment on above: Order Comment: Speci men Type: BLOOD SPECIMEN Ordering Facility: [facility] Address: [address] [place] [address] Performed By: #### 3 040-3, 70252-8, #### [facility] CLIA [id number] [address] [place] [address] [place] ALT [Catalytic activity/Vol] 49 U/L Normal 10-54 [facility] Comment on above: Order Comment: Speci men Type: BLOOD SPECIMEN Ordering Facility: [facility] Address: [address] [place] [address] Performed By: #### 3 040-3, 00991-3, #### [facility] CLIA [id number] [address] [place] [address] [place] Anion gap [Moles/Vol] 12 mmol/L Normal 8-15 [facility] Comment on above: Order Comment: Speci men Type: BLOOD SPECIMEN Ordering Facility: [facility] Address: [address] [place] [address] Performed By: #### 3 040-3, 59522-1, #### [facility] CLIA [id number] [address] [place], [place] [address] [place] AST [Catalytic activity/Vol] 123 U/L High 14-40 [facility] Comment on above: Order Comment: Speci men Type: BLOOD SPECIMEN Ordering Facility: [facility] Address: [address] [place], [place] [id number] Performed By: #### 3 040-3, , #### [facility] CLIA [id number] [address] [place] [address] [place] Bilirubin [Mass/Vol] 19.7 mg/dL High 0.2-1.3 [facility] Comment on above: Order Comment: Speci men Type: BLOOD SPECIMEN Ordering Facility: [facility] Address: [address] [place], [place] [address] Performed By: #### 3 040-3, , #### [facility] CLIA [id number] [address] [place], [place] [address] [place] Calcium [Mass/Vol] 8.4 mg/dL Low 8.5-10.2 [facility] Comment on above: Order Comment: Speci men Type: BLOOD SPECIMEN Ordering Facility: [facility] Address: [address] [place], [place] [id number] Performed By: #### 3 040-3, , #### [facility] CLIA [id number] [address] [place], [place] [address] [place] Chloride [Moles/Vol] 99 mmol/L Normal 98-107 [facility] Comment on above: Order Comment: Speci men Type: BLOOD SPECIMEN Ordering Facility: [facility] Address: [address] [place], [place] [id number] Performed By: #### 3 040-3, , #### [facility] CLIA [id number] [address] [place], [place] [address] [place] CO2 [Moles/Vol] 23 mmol/L Normal 22-30 [facility] Comment on above: Order Comment: Speci men Type: BLOOD SPECIMEN Ordering Facility: [facility] Address: [address] [place] [address] Performed By: #### 3 040-3, 63452-2, #### [facility] CLIA [id number] [address] [place] [address] [place] Creatinine [Mass/Vol] 0.54 mg/dL Low 0.73-1.22 [facility] Comment on above: Order Comment: Speci men Type: BLOOD SPECIMEN Ordering Facility: [facility] Address: [address] [place] [address] Result Comment: Resu lt may be falsely decreased due to interference from icterus. Performed By: #### 3 040-3, , #### [facility] CLIA [id number] [address] [place] [address] [place] Creatinine and Glomerular filtration rate.predicted panel (S/P/Bld) 118 mL/min/1.73m??? Normal >=60 [facility] Comment on above: Order Comment: Speci men Type: BLOOD SPECIMEN Ordering Facility: [facility] Address: [address] [place] [address] Result Comment: Autumn mated Glomerular Filtration Rate (eGFR) is calculated using the 2020 CKD-EPI creatinine equation. This equation utilizes serum creatinine, sex, and age as parameters. The creatinine assay has traceable calibration to isotope dilution-mass spectrometry. Refer to KDIGO guidelines for clinical interpretation. In patients with unstable renal function, e.g. those with acute kidney injury, the eGFR may not accurately reflect actual GFR. Performed By: #### 3 040-3, 37817-1, #### [facility] CLIA [id number] [address] [place] [address] [place] Glucose [Mass/Vol] 139 mg/dL High 74-99 [facility] Comment on above: Order Comment: Speci men Type: BLOOD SPECIMEN Ordering Facility: [facility] Address: [address] [place] [address] Result Comment: The [place] Diabetes Association (ADA) provides guidance for cutoff values for fasting glucose and random glucose. The ADA defines fasting as no caloric intake for at least 8 hours. Fasting plasma glucose results between 100 to 125 mg/dL indicate increased risk for diabetes (prediabetes). Fasting plasma glucose results greater than or equal to 126 mg/dL meet the criteria for diagnosis of diabetes. In the absence of unequivocal hyperglycemia, results should be confirmed by repeat testing. In a patient with classic symptoms of hyperglycemia or hyperglycemic crisis, random plasma glucose results greater than or equal to 200 mg/dL meet the criteria for diagnosis of diabetes. Reference: Standards of Medical Care in Diabetes 2016, [place] Diabetes Association. Diabetes Care. 2016.39(Suppl 1). Performed By: #### 3 040-3, 52852-7, #### [facility] CLIA [id number] [address] [place] [address] [place] Potassium [Moles/Vol] 3.5 mmol/L Low 3.7-5.1 [facility] Comment on above: Order Comment: Speci men Type: BLOOD SPECIMEN Ordering Facility: [facility] Address: [address] [place] [address] Performed By: #### 3 040-3, 29194-5, #### [facility] CLIA [id number] [address] [place] [address] [place] Protein [Mass/Vol] 7.6 g/dL Normal 6.3-8.0 [facility] Comment on above: Order Comment: Speci men Type: BLOOD SPECIMEN Ordering Facility: [facility] Address: [address] [place] [address] Result Comment: Resu lt may be falsely decreased due to interference from icterus. Performed By: #### 3 040-3, 74518-6, #### [facility] CLIA [id number] [address] [place] [address] [place] Sodium [Moles/Vol] 134 mmol/L Low 136-144 [facility] Comment on above: Order Comment: Speci men Type: BLOOD SPECIMEN Ordering Facility: [facility] Address: [address] [place], [place] [address] Performed By: #### 3 040-3, 26560-8, 58059-8 #### [facility] CLIA [id number] [address] [place] [address] Urea nitrogen [Mass/Vol] 4 mg/dL Low 9-24 [facility] Comment on above: Order Comment: Speci men Type: BLOOD SPECIMEN Ordering Facility: [facility] Address: [address] [place] [address] Performed By: #### 3 040-3, 16888-6, 76222-7 #### [facility] CLIA [id number] [address] [place] [address] OF [facility] ED Triage Noteon 03-07-2025 ED Triage Note HNO ID: [id number] Author: MARY ALICE GARCIA MD Service: Emergency Medicine Author Type: Physician Type: ED Triage Notes Filed: 03/07/2025 14:31 Note Text: ED TRIAGE PROVIDER NOTE Patient Name: Aryan Valle Service Date: 03/07/25 BRIEF HPI: This is a 55 year old male with known left inguinal hernia had an outpatient surgery appointment today for surgical evaluation. The appointment canceled due to the surgeon because delay for emergent surgery. Patient reports persistent pain over the past month and now with difficulty urinating so came to ED for evaluation. Also with a history of liver problems and ascites and states that his abdomen feels more distended than usual. No fevers or chills. BRIEF EXAM: NAD Awake and Alert Non labored breathing Left inguinal hernia (non-reducible) Abdominal distention with ascites INITIAL WORKUP AND DECISION MAKING: Orders Placed This Encounter CBC + DIFF COMP METABOLIC PANEL (BMP+LFT) LIPASE BLD MAGNESIUM BLD Urinalysis w Microscopic, reflex Culture SIGNATURE: Mary Alice Garcia MD Normal [facility] Lipase SerPl-cCncon 03-07-20 25 Lipase [Catalytic activity/Vol] 43 U/L Normal 16-61 [facility] Comment on above: Order Comment: Speci men Type: BLOOD SPECIMEN Ordering Facility: [facility] Address: [address] [place] [address] Performed By: #### 3 040-3, 44466-3, #### [facility] CLIA [id number] [address] [place] [address] [place] Magnesium SerPl-mCncon 03-07 Magnesium [Mass/Vol] 1.5 mg/dL Low 1.7-2.3 [facility] Comment on above: Order Comment: Speci men Type: BLOOD SPECIMEN Ordering Facility: [facility] Address: [address] [place] [address] Performed By: #### 3 040-3, 66149-9, #### [facility] CLIA [id number] [address] [place] [address] [place] CBC W Auto Differential pane l (Bld)on 02-24-2025 Basophils (Bld) [#/Vol] 0.05 10*3/uL Normal <0.11 [facility] Comment on above: Order Comment: Speci men Type: BLOOD SPECIMEN Ordering Facility: [facility] Address: [address] [place] [address] Performed By: #### 5 7021-8 #### [facility] CLIA [id number] [address] [place] Basophils/100 WBC (Bld) 1.4 % Normal [facility] Comment on above: Order Comment: Speci men Type: BLOOD SPECIMEN Ordering Facility: [facility] Address: [address] [place] [address] Performed By: #### 5 7021-8 #### [facility] CLIA [id number] [address] [place] [address] [place] Differential cell count method Nom (Bld) Auto Normal [facility] Comment on above: Order Comment: Speci men Type: BLOOD SPECIMEN Ordering Facility: [facility] Address: [address] [place] [address] Performed By: #### 5 7021-8 #### [facility] CLIA [id number] [address] [place] [address] [place] Eosinophils (Bld) [#/Vol] 0.16 10*3/uL Normal <0.46 [facility] Comment on above: Order Comment: Speci men Type: BLOOD SPECIMEN Ordering Facility: [facility] Address: [address] [place] [address] Performed By: #### 5 7021-8 #### [facility] CLIA [id number] [address] [place] Eosinophils/100 WBC (Bld) 4.5 % Normal [facility] Comment on above: Order Comment: Speci men Type: BLOOD SPECIMEN Ordering Facility: [facility] Address: [address] [place] [address] Performed By: #### 5 7021-8 #### [facility] CLIA [id number] [address] [place] Erythrocyte distribution width (RBC) [Ratio] 15.0 % Normal 11.5-15.0 [facility] Comment on above: Order Comment: Speci men Type: BLOOD SPECIMEN Ordering Facility: [facility] Address: [address] [place] [address] Performed By: #### 5 7021-8 #### [facility] CLIA [id number] [address] [place] Hematocrit (Bld) [Volume fraction] 32.6 % Low 39.0-51.0 [facility] Comment on above: Order Comment: Speci men Type: BLOOD SPECIMEN Ordering Facility: [facility] Address: [address] [place] [address] Performed By: #### 5 7021-8 #### [facility] CLIA [id number] [address] [place] Hemoglobin (Bld) [Mass/Vol] 11.6 g/dL Low 13.0-17.0 [facility] Comment on above: Order Comment: Speci men Type: BLOOD SPECIMEN Ordering Facility: [facility] Address: [address] [place] [address] Performed By: #### 5 7021-8 #### [facility] CLIA [id number] [address] [place] [address] [place] Immature granulocytes (Bld) [#/Vol] 10*3/uL Normal <0.10 [facility] Comment on above: Order Comment: Speci men Type: BLOOD SPECIMEN Ordering Facility: [facility] Address: [address] [place] [address] Performed By: #### 5 7021-8 #### [facility] CLIA [id number] [address] Immature granulocytes/100 WBC (Bld) 0.6 % Normal [facility] Comment on above: Order Comment: Speci men Type: BLOOD SPECIMEN Ordering Facility: [facility] Address: [address] [place] [address] Performed By: #### 5 7021-8 #### [facility] CLIA [id number] [address] [place] Lymphocytes (Bld) [#/Vol] 0.93 10*3/uL Low 1.00-4.00 [facility] Comment on above: Order Comment: Speci men Type: BLOOD SPECIMEN Ordering Facility: [facility] Address: [address] [place] [address] Performed By: #### 5 7021-8 #### [facility] CLIA [id number] [address] Lymphocytes/100 WBC (Bld) 26.3 % Normal [facility] Comment on above: Order Comment: Speci men Type: BLOOD SPECIMEN Ordering Facility: [facility] Address: [address] [place] [address] Performed By: #### 5 7021-8 #### [facility] CLIA [id number] [address] [place] [address] [place] MCH (RBC) [Entitic mass] 38.5 pg High 26.0-34.0 [facility] Comment on above: Order Comment: Speci men Type: BLOOD SPECIMEN Ordering Facility: [facility] Address: [address] [place] [address] Performed By: #### 5 7021-8 #### [facility] CLIA [id number] [address] [place] MCHC (RBC) [Mass/Vol] 35.6 g/dL Normal 30.5-36.0 [facility] Comment on above: Order Comment: Speci men Type: BLOOD SPECIMEN Ordering Facility: [facility] Address: [address] [place] [address] Performed By: #### 5 7021-8 #### [facility] CLIA [id number] [address] [place] MCV (RBC) [Entitic vol] 108.3 fL High 80.0-100.0 [facility] Comment on above: Order Comment: Speci men Type: BLOOD SPECIMEN Ordering Facility: [facility] Address: [address] [place] [address] Performed By: #### 5 7021-8 #### [facility] CLIA [id number] [address] [place] [address] [place] Monocytes (Bld) [#/Vol] 0.42 10*3/uL Normal <0.87 [facility] Comment on above: Order Comment: Speci men Type: BLOOD SPECIMEN Ordering Facility: [facility] Address: [address] [place] [address] Performed By: #### 5 7021-8 #### [facility] CLIA [id number] [address] Monocytes/100 WBC (Bld) 11.9 % Normal [facility] Comment on above: Order Comment: Speci men Type: BLOOD SPECIMEN Ordering Facility: [facility] Address: [address] [place] [address] Performed By: #### 5 7021-8 #### [facility] CLIA [id number] [address] [place] [address] [place] Neutrophils (Bld) [#/Vol] 1.96 10*3/uL Normal 1.45-7.50 [facility] Comment on above: Order Comment: Speci men Type: BLOOD SPECIMEN Ordering Facility: [facility] Address: [address] [place] [address] Performed By: #### 5 7021-8 #### [facility] CLIA [id number] [address] [place] [address] [place] Neutrophils/100 WBC (Bld) 55.3 % Normal [facility] Comment on above: Order Comment: Speci men Type: BLOOD SPECIMEN Ordering Facility: [facility] Address: [address] [place] [address] Performed By: #### 5 7021-8 #### [facility] CLIA [id number] [address] [place] [address] [place] Nucleated RBC (Bld) [#/Vol] 10*3/uL Normal <0.01 [facility] Comment on above: Order Comment: Speci men Type: BLOOD SPECIMEN Ordering Facility: [facility] Address: [address] [place] [address] Performed By: #### 5 7021-8 #### [facility] CLIA [id number] [address] [place] [address] [place] Nucleated RBC/100 WBC (Bld) [Ratio] 0.0 /100 WBC Normal [facility] Comment on above: Order Comment: Speci men Type: BLOOD SPECIMEN Ordering Facility: [facility] Address: [address] [place] [address] Performed By: #### 5 7021-8 #### [facility] CLIA [id number] [address] [place] [address] [place] Platelet mean volume (Bld) [Entitic vol] 9.7 fL Normal 9.0-12.7 [facility] Comment on above: Order Comment: Speci men Type: BLOOD SPECIMEN Ordering Facility: [facility] Address: [address] [place] [address] Performed By: #### 5 7021-8 #### [facility] CLIA [id number] [address] [place] [address] [place] Platelets (Bld) [#/Vol] 73 10*3/uL Low 150-400 M [facility] Comment on above: Order Comment: Speci men Type: BLOOD SPECIMEN Ordering Facility: [facility] Address: [address] [place] [address] Result Comment: No c lot detected. Performed By: #### 5 7021-8 #### [facility] CLIA [id number] [address] [place] [address] [place] RBC (Bld) [#/Vol] 3.01 10*6/uL Low 4.20-6.00 [facility] Comment on above: Order Comment: Speci men Type: BLOOD SPECIMEN Ordering Facility: [facility] Address: [address] [place] [address] Performed By: #### 5 7021-8 #### [facility] CLIA [id number] [address] [place] WBC (Bld) [#/Vol] 3.54 10*3/uL Low 3.70-11.00 [facility] Comment on above: Order Comment: Speci men Type: BLOOD SPECIMEN Ordering Facility: [facility] Address: [address] [place] [address] Performed By: #### 5 7021-8 #### [facility] CLIA [id number] [address] ABD/PEL W IVCONon 025 CT ABD/PEL W IVCON * * *Final Report* * * DATE OF EXAM: Feb 24 2025 9:38AM [facility] 0530 - CT ABD/PEL W IVCON / PROCEDURE REASON: Hernia, complicated * * * * Physician Interpretation * * * * EXAMINATION: CT ABDOMEN AND PELVIS WITH IV CONTRAST CLINICAL HISTORY: Abdominal pain. Left inguinal hernia. TECHNIQUE: CT of the abdomen and pelvis was performed using standard technique, scanning from just above the dome of the diaphragm to the symphysis pubis. MQ: CTAP_3 Contrast: IV: 100 ml of Omnipaque 350 : ml of CT Radiation dose: Integrated Dose-length product (DLP) for this visit = 907 mGy*cm. CT Dose Reduction Employed: Automated exposure control(AEC) and iterative recon COMPARISON: None. RESULT: Liver: No mass. Cirrhotic morphology. Biliary: No bile duct dilation. Cholelithiasis. Spleen: No mass. Splenomegaly. The spleen measures 16 cm in length. Pancreas: No mass or duct dilation. Adrenals: No mass. Kidneys: The kidneys enhance symmetrically. No hydronephrosis. Small left renal cysts. GI tract: No evidence of a bowel obstruction. Generalized small bowel wall thickening, possibly due to hypoalbuminemia. Lymph nodes: No abdominal or pelvic lymphadenopathy. Mesentery/Peritoneum: Moderate ascites. Retroperitoneum: No mass. Vasculature: - Abdominal aorta and iliac arteries: No aneurysm. - Celiac and SMA: Patent without stenosis. - Portal venous system (SMV, splenic vein, portal vein and branches): Patent with portosystemic venous collaterals. Esophageal varices are noted. There is recanalization of the periumbilical vein. - Hepatic veins: Patent. Pelvis: Ascites. There is a left inguinal hernia which contains ascites fluid. Bones/Soft Tissues: Degenerative changes. Lower thorax: No pleural effusion or consolidation Localizer images: No additional findings. IMPRESSION: 1. Cirrhosis of the liver and portal hypertension. 2. Moderate ascites 3. There is a left inguinal hernia which contains ascites fluid. 4. Cholelithiasis Metal Trimmer: VALDO Transcribe Date/Time: Feb 24 2025 9:47A Dictated by : ALON CONTI MD This examination was interpreted and the report reviewed and electronically signed by: ALON CONTI MD on Feb 24 2025 9:56AM EST [id number] Normal [facility] Comprehensive metabolic 2000 panelon 02-24-2025 Albumin [Mass/Vol] 3.0 g/dL Low 3.9-4.9 [facility] Comment on above: Order Comment: Sahil harper Type: BLOOD SPECIMEN Ordering Facility: [facility] Address: [address] [place] [address] Performed By: #### 2 4323-8, 3040-01, #### [facility] CLIA [id number] [address] [place] [address] [place] ALP [Catalytic activity/Vol] 262 U/L High 38-113 [facility] Comment on above: Order Comment: Sahil harper Type: BLOOD SPECIMEN Ordering Facility: [facility] Address: [address] [place] [address] Performed By: #### 2 4323-8, 0-3, #### [facility] CLIA [id number] [address] [place] [address] [place] ALT [Catalytic activity/Vol] 49 U/L Normal 10-54 [facility] Comment on above: Order Comment: Speci men Type: BLOOD SPECIMEN Ordering Facility: [facility] Address: [address] [place] [id number] Performed By: #### 2 4323-8, 3040-3, #### [facility] CLIA [id number] [address] [place] [address] [place] Anion gap [Moles/Vol] 9 mmol/L Normal 8-15 [facility] Comment on above: Order Comment: Speci men Type: BLOOD SPECIMEN Ordering Facility: [facility] Address: [address] [place] [address] Performed By: #### 2 4323-8, 3039-3, #### [facility] CLIA [id number] [address] [place] AST [Catalytic activity/Vol] 125 U/L High 14-40 [facility] Comment on above: Order Comment: Speci men Type: BLOOD SPECIMEN Ordering Facility: [facility] Address: [address] [place] [address] Performed By: #### 2 4323-8, 3039-3, #### [facility] CLIA [id number] [address] [place] Bilirubin [Mass/Vol] 14.7 mg/dL High 0.2-1.3 [facility] Comment on above: Order Comment: Speci men Type: BLOOD SPECIMEN Ordering Facility: [facility] Address: [address] [place] [address] Performed By: #### 2 4323-8, 3040-3, #### [facility] CLIA [id number] [address] [place] Calcium [Mass/Vol] 8.7 mg/dL Normal 8.5-10.2 [facility] Comment on above: Order Comment: Speci men Type: BLOOD SPECIMEN Ordering Facility: [facility] Address: [address] [place] [address] Performed By: #### 2 4323-8, 3040-3, #### [facility] CLIA [id number] [address] [place] [address] [place] Chloride [Moles/Vol] 101 mmol/L Normal 98-107 [facility] Comment on above: Order Comment: Sahil harper Type: BLOOD SPECIMEN Ordering Facility: [facility] Address: [address] [place] [address] Performed By: #### 2 4323-8, 3040-3, #### [facility] CLIA [id number] [address] [place] [address] [place] [facility] CO2 [Moles/Vol] 28 mmol/L Normal 22-30 [facility] Comment on above: Order Comment: Sahil harper Type: BLOOD SPECIMEN Ordering Facility: [facility] Address: [address] [place] [address] Performed By: #### 2 4323-8, 3040-3, #### [facility] CLIA [id number] [address] STATES OF [facility] Creatinine [Mass/Vol] 0.62 mg/dL Low 0.73-1.22 [facility] Comment on above: Order Comment: Sahil harper Type: BLOOD SPECIMEN Ordering Facility: [facility] Address: [address] [place] [address] Result Comment: Resu lt may be falsely decreased due to interference from icterus. Performed By: #### 2 4323-8, 3040-3, #### [facility] CLIA [id number] [address] OF [facility] Creatinine and Glomerular filtration rate.predicted panel (S/P/Bld) 114 mL/min/1.73m??? Normal >=60 [facility] Comment on above: Order Comment: Sahil harper Type: BLOOD SPECIMEN Ordering Facility: [facility] Address: [address] [place] [address] Result Comment: Autumn mated Glomerular Filtration Rate (eGFR) is calculated using the 2020 CKD-EPI creatinine equation. This equation utilizes serum creatinine, sex, and age as parameters. The creatinine assay has traceable calibration to isotope dilution-mass spectrometry. Refer to KDIGO guidelines for clinical interpretation. In patients with unstable renal function, e.g. those with acute kidney injury, the eGFR may not accurately reflect actual GFR. Performed By: #### 2 4323-8, 0-3, #### [facility] CLIA [id number] [address] [place] [address] [place] Glucose [Mass/Vol] 162 mg/dL High 74-99 [facility] Comment on above: Order Comment: Sahil harper Type: BLOOD SPECIMEN Ordering Facility: [facility] Address: [address] [place] [address] Result Comment: The [place] Diabetes Association (ADA) provides guidance for cutoff values for fasting glucose and random glucose. The ADA defines fasting as no caloric intake for at least 8 hours. Fasting plasma glucose results between 100 to 125 mg/dL indicate increased risk for diabetes (prediabetes). Fasting plasma glucose results greater than or equal to 126 mg/dL meet the criteria for diagnosis of diabetes. In the absence of unequivocal hyperglycemia, results should be confirmed by repeat testing. In a patient with classic symptoms of hyperglycemia or hyperglycemic crisis, random plasma glucose results greater than or equal to 200 mg/dL meet the criteria for diagnosis of diabetes. Reference: Standards of Medical Care in Diabetes 2016, [place] Diabetes Association. Diabetes Care. 2016.39(Suppl 1). Performed By: #### 2 4323-8, 3, #### [facility] CLIA [id number] [address] [place] [address] [place] Potassium [Moles/Vol] 3.7 mmol/L Normal 3.7-5.1 [facility] Comment on above: Order Comment: Sahil harper Type: BLOOD SPECIMEN Ordering Facility: [facility] Address: [address] [place] [id number] Performed By: #### 2 4323-8, 3, #### [facility] CLIA [id number] [address] [place] [address] [place] Protein [Mass/Vol] 7.4 g/dL Normal 6.3-8.0 [facility] Comment on above: Order Comment: Sahil harper Type: BLOOD SPECIMEN Ordering Facility: [facility] Address: [address] [place] [address] Performed By: #### 2 4323-8, 3040-3, #### [facility] CLIA [id number] [address] Sodium [Moles/Vol] 138 mmol/L Normal 136-144 [facility] Comment on above: Order Comment: Speci men Type: BLOOD SPECIMEN Ordering Facility: [facility] Address: [address] [place] [id number] Performed By: #### 2 4323-8, 3040-3, #### [facility] CLIA [id number] [address] [place] Urea nitrogen [Mass/Vol] 3 mg/dL Low 9-24 [facility] Comment on above: Order Comment: Speci men Type: BLOOD SPECIMEN Ordering Facility: [facility] Address: [address] [place] [address] Performed By: #### 2 4323-8, 3040-3, #### [facility] CLIA [id number] [address] ED NOTEon 02-24-2025 ED NOTE HNO ID: [id number] Author: NEERU MARQUEZ RN Service: ? Author Type: Registered Nurse Type: ED Notes Filed: 02/24/2025 11:01 Note Text: Pt verbalized d/c instructions and the need to follow up [facility] ED NOTE HNO ID: [id number] Author: NEERU MARQUEZ RN Service: ? Author Type: Registered Nurse Type: ED Notes Filed: 02/24/2025 10:55 Note Text: Pt aware scheduling is not available at this time but will call [facility] ED NOTE HNO ID: [id number] Author: NEERU MARQUEZ RN Service: ? Author Type: Registered Nurse Type: ED Notes Filed: 02/24/2025 08:20 Note Text: Pt is a daily heavy drinker with known hernia. Pt having increased pain and swelling in scrotum [facility] ED PROV NOTEon 02-24-2025 ED PROV NOTE HNO ID: [id number] Author: RAMONA JUNG MD Service: ? Author Type: Physician Type: ED Provider Notes Filed: 02/24/2025 12:29 Note Text: ED Provider Note Patient Name: Aryan Valle : 1970 SERVICE DATE: 02/24/25 History Patient presents with: Abdominal Pain: Hernia Penis/Scrotum Problem Patient presents for 2 months of left inguinal hernia that has been gradually getting more painful and swollen. Patient states it is now starting to interfere with his ability to work secondary to pain. 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 Patient states he was told to come to the [facility] so that he could see a surgeon. PAST MEDICAL HISTORY Diagnosis Date ETOH abuse 12 beers per day Seizures (HCC) controlled on dilantin Vertigo uses mecliznie daily PAST SURGICAL HISTORY Procedure Laterality Date PAST SURGICAL HISTORY OF 2007 total hip replacement TONSILLECTOMY HX remote FAMILY HISTORY Problem Relation Age of Onset Arthritis Father Arthritis Brother Social History Tobacco Use Smoking status: Never Smokeless tobacco: Not on file Vaping Use Vaping status: Never Used Substance and Sexual Activity Alcohol use: Yes Comment: daily, 12 beer a day, history of rehab Drug use: No Sexual activity: Not on file ALLERGIES No Known Allergies Review of Systems Constitutional: Pertinent positives and negatives as per HPI. Physical Exam Vitals [02/24/25 0816] BP Pulse Temp Temp src Resp SpO2 Weight Height 119/86 85 36.7 ?C (98 ?F) Oral 18 99 % 104.3 kg (230 lb) 1.803 m (5' 11) Physical Exam Vitals and nursing note reviewed. Exam conducted with a product safety associate present. Constitutional: Appearance: He is well-developed. Eyes: General: Scleral icterus present. Extraocular Movements: Extraocular movements intact. Pupils: Pupils are equal, round, and reactive to light. Cardiovascular: Rate and Rhythm: Normal rate and regular rhythm. Pulmonary: Effort: Pulmonary effort is normal. No respiratory distress. Abdominal: General: Abdomen is protuberant. Palpations: Abdomen is soft. Tenderness: There is no abdominal tenderness. There is no guarding or rebound. Hernia: A hernia (Tenderness in the inguinal canal, does not feel easily reducible) is present. Hernia is present in the left inguinal area. Genitourinary: Penis: Normal. Testes: Cremasteric reflex is present. Left: Tenderness not present. Skin: Coloration: Skin is jaundiced. Neurological: General: No focal deficit present. Mental Status: He is alert. Diagnostic Testing ED Labs Ordered and Reviewed - No data to display Procedures ED Course / Clinical Impression ED Course as of 02/24/25 1227 Ramona Jung's Documentation ThuFeb 24, 2025 0911 Bilirubin, Total(!): 14.7 Significant elevation, no prior for comparison except 2016 when patient had elevation at 2.5. Patient also had elevation of AST since 2014 0911 PT INR(!): 1.9 Elevated 0912 Lipase: 41 normal 0940 WBC(!): 3.54 Mild leukopenia 0940 Hemoglobin(!): 11.[address] ABD/PEL W IVCON Result(s) independently interpreted by me: Left hernia containing ascites. No evidence of bowel obstruction. [address] Good, who agreed this will be outpatient repair of patient's hernia. Given patient's comorbidities, including the liver cirrhosis with high risk of bleeding, she stated patient needs referral to the hernia team at [facility], and gave specific doctor names. Collar Turner request was made to schedule patient with one of the hernia specialists. Clinical Impressions as of 02/24/25 1227 Unilateral inguinal hernia without obstruction or gangrene, recurrence not specified Ascites due to alcoholic cirrhosis (HCC) Left groin pain MDM / Disposition / Plan CT abdomen pelvis performed to further evaluate patient's hernia, including to look for bowel obstruction, incarcerated hernia or strangulated hernia, or other acute intra-abdominal process. Patient had no findings on his scrotal exam concerning for testicular torsion. Patient labs were consistent with his history of liver cirrhosis. No recent labs for comparison, however patient knows that he is jaundiced at baseline and he does follow-up outpatient with doctors who manage his liver problems. Patient CT showed ascites in his left inguinal hernia. Patient was discussed with surgery and was referred to the hernia team at [facility] due to his complicated medical conditions and need for the hernia repair. History and Record Review External record(s) reviewed: no prior records. Differential Diagnoses - Left inguinal hernia with ascites Management Management of the patient was discussed with:vocational rehabilitation consultant Discussion with vocational rehabilitation consultant included: Dr. Good, surgery I performed an independent interpretation of the following:imaging Imaging: My interpretation is (more content not included)... Normal [facility] Lipase SerPl-cCncon 02-25-20 25 Lipase [Catalytic activity/Vol] 41 U/L Normal 16-61 [facility] Comment on above: Order Comment: Sahil harper Type: BLOOD SPECIMEN Ordering Facility: [facility] Address: [address] [place] [address] Performed By: #### 2 4323-8, 3040-3, 60971-2 #### [facility] CLIA [id number] [address] OF [facility] Magnesium SerPl-mCncon 02-24 Magnesium [Mass/Vol] 1.8 mg/dL Normal 1.7-2.3 [facility] Comment on above: Order Comment: Sahil harper Type: BLOOD SPECIMEN Ordering Facility: [facility] Address: [address] [place] [address] Performed By: #### 2 4323-8, 3040-3, #### [facility] CLIA [id number] [address] [place] [address] [place] PT panel Coag (PPP)on 2024 INR Coag (PPP) [Relative time] 1.9 {INR} High 0.9-1.3 [facility] Comment on above: Order Comment: Sahil harper Type: BLOOD SPECIMEN Ordering Facility: [facility] Address: [address] [place] [address] Result Comment: Erum min K Antagonist (VKA) Therapeutic Range: INR 2 to 3 (Target INR of 2.5) Note: For patients treated with VKA drugs, such as warfarin, the [place] [employer] 2012 Guideline recommends a therapeutic INR range of 2 to 3 (target INR of 2.5). This recommendation includes high-risk patients with antiphospholipid syndrome with previous arterial or venous thromboembolism, current-generation mechanical or bioprosthetic aortic heart valve replacement. Note: Patients with mechanical aortic valve replacement and additional risk factors for thromboembolic events (atrial fibrillation, previous thromboembolism, LV dysfunction, hypercoagulable conditions) or an older generation mechanical AVR (i.e., ball in-Cage) or any mechanical MVR should have a INR therapeutic range of 2.5 to 3.5 (target INR of 3). Alpa THOMSON, et al. Chest 2012, 141:7S-47S Dario RA, et al. JAC 2017, 70: 252-289 Performed By: #### 3 4528-0, 36523-1 #### [facility] CLIA [id number] [address] [place] [address] [place] PT Coag (PPP) [Time] 20.1 s High 9.7-13.0 [facility] Comment on above: Order Comment: Speci men Type: BLOOD SPECIMEN Ordering Facility: [facility] Address: [address] [place] [address] Performed By: #### 3 4528-0, 98815-8 #### [facility] CLIA [id number] [address] OF [facility] aPTT PPPon 02-24-2025 aPTT Coag (PPP) [Time] 40.7 s High 23.0-32.4 [facility] Comment on above: Order Comment: Speci men Type: BLOOD SPECIMEN Ordering Facility: [facility] Address: [address] [place] [address] Performed By: #### 3 4528-0, 37381-6 #### [facility] CLIA [id number] [address] OF [place] Surgery Visit Reporton 12-23 Surgery Visit Report [facility] [address] [place] [address]. [address] [place] [address] OFFICE VISIT Date of Service: 12/23/24 MR#: [id number] Acct: [id number] Name: ARYAN VALLE Rep #: [id number] : 1970 Provider: Dr. Huber james MD Age/Sex: 54/M Location: [facility] Status: Signed Intake Vital Signs 12/16/24 09:04 12/23/24 09:45 Height 5 ft 11 in 5 ft 11 in Weight: 229 lb 219 lb 2 oz BMI 31.9 30.5 BP 130/60 H 109/74 Blood Pressure Location Lt brachial Rt brachial Position Sitting Sitting Respiration 16 18 Pulse 78 77 Pulse Source Monitor Monitor Temp 98.1 F 97.2 F L Temp Source Temporal Temporal Pulse Oximetry (%) 98 97 Oxygen Delivery Method room air room air Intake Visit Reasons: INGUINAL HERNIA Chief Complaint: inguinal hernia Is patient in pain?: Yes Pain scale (1-10): 8 Allergies No Known Allergies Allergy (Verified 12/23/24 09:46) Medications ???Medication ???Instructions ???Recorded ???Confirmed ???Type compress.stocking,knee,r eg,lrg #2 ea 09/18/21 12/23/24 Rx lidocaine 5 % topical patch 1 patch topical DAILY PRN rib pain 07/10/22 12/23/24 Rx #30 ea meclizine 25 mg tablet 25 mg PO BID PRN for dizziness #60 02/15/24 12/23/24 Rx (Travel-Ease (meclizine)) TABLETS alpha lipoic acid 600 mg capsule 600 mg PO TID #120 caps 06/24/24 0 12/23/24 Rx lactulose 10 gram/15 mL (15 mL) 10 g (15 mL) PO BID potassium 3 12/23/24 Rx oral solution months #2,700 mL spironolactone 25 mg tablet 25 mg PO BID #180 TABLETS 06/24/24 12/23/24 Rx compress.stocking,knee,r eg,lrg #2 ea 07/01/24 12/23/24 Rx levetiracetam 1,000 mg tablet 1,000 mg PO BID ? #180 tabs 12/23/24 Rx levothyroxine 50 mcg tablet 50 mcg PO DAILY thyroid #30 tabs 0 12/08/24 12/23/24 Rx gabapentin 600 mg tablet 600 mg PO BID pain #60 tabs 12/23/24 Rx furosemide 40 mg tablet 40 mg PO BIDLX #60 tabs 12/16/24 0 12/23/24 Rx PFSH Medical History Dark urine Elevated CA 19-9 level Dermatitis Hypothyroidism Decreased urination Erectile dysfunction Change in bowel habits Nausea vomiting Swallowing problem Abdominal pain Thrombocytopenia Alcoholic hepatitis Obesity (BMI 30.0-34.9) Abnormal thyroid function test Venous insufficiency of both lower extremities Back pain Limb weakness Balance problem Knee pain Diarrhea Chest pain Neuropathy of both feet Fracture, ribs Brain atrophy History of alcohol abuse Arthritis Seizures Glaucoma Hypertension Hyperlipemia Surgical History History of surgical procedure on eye proper using laser History of bilateral hip replacements History of tonsillectomy Family History Father Alcoholism Heart disease Myocardial infarction Mother Arthritis Sister Depression Grandfather Myocardial infarction Grandfather CVA (cerebral vascular accident) Social History Smoking Status: Never smoker Smokeless tobacco user: chewing tobacco Electronic Cigarette Use: not used second hand exposure: Yes alcohol intake: current alcohol intake frequency: 3 or more drinks per day Alcohol type: beer details: 4-6 beers a day substance use type: does not use what type of physical activity do you participate in: walking frequency: daily HPI HPI HPI: The patient is a 54-year-old male who is being seen today for possible left inguinal hernia. He states that this first became evident a couple months ago as he described the onset of burning pain in the left groin associated with a bulge. He brought this to the attention of his PCP who referred him to general surgery. Patient's medical history is also very notable for alcoholic cirrhosis. This seems to be an ongoing issue for him. He has yet to make an appointment to see GI given despite numerous recommendations and referrals to do so. He states that he has tried to quit drinking on numerous occasions but always seems to be relapsing. Imaging clearly indicate cirrhosis and evidence of portal hypertension. I explained to him that this makes surgery not only challenging but potentially even life-threatening. He does have ascites as well and has undergone previous paracentesis. ROS General General: Yes weight change; No appetite, fatigue, colon cancer, breast cancer or weakness HEENT HEENT: Yes swollen glands; No difficulty swallowing, eye injury, eye surgery or hoarseness Endo Endocrine: Yes thyroid disease; No diabetes mellitus, thyroid cancer, Hair loss, heat intolerance or cold intolerance Skin Skin: No rash or changing moles Mus (more content not included)... Normal [facility] Absolute lymphocyte countOrd ered By: Tana Farmer on 12-16-2024 Lymphocytes Auto (Unsp spec) [#/Vol] 1.01 10*3/uL 0.83-4.51 [facility] Absolute neutrophil countOrd ered By: Tana Farmer on 12-16-2024 Neutrophils (Bld) [#/Vol] 2.4 10*3/uL 2.0-7.7 [facility] Albumin to globulin ratioOrd ered By: Tana Farmer on 12-16-2024 Albumin/Globulin [Mass ratio] 0.5 {ratio} Low 0.9-2.4 [facility] Automated lymphocyte count a s percentage of total leukocytesOrdered By: Marcojames Hutchinsnew on 12-16-2024 Lymphocytes/100 WBC Auto (Unsp spec) 25.1 % 19-41 [facility] Basophil percentageOrdered B y: Tana Farmer on 12-16-2024 Basophils/100 WBC (Bld) 1.2 % High 0-1 [facility] Bilirubin, totalOrdered By: Tana Farmer on 12-16-2024 Bilirubin [Mass/Vol] 9.00 mg/dL High 0.20-1.00 [facility] Comment on above: For patients on eltr ombopag therapy, use of Dimension [place] TBIL is not recommended. Blood urea nitrogen (BUN)/cr eatinine ratioOrdered By: Marcojames Hutchinssukhdeepeliana on 12-16-2024 Urea nitrogen/Creatinine [Mass ratio] 4.2 mg/mg Low 10-20 [facility] CBC W/Diff, Automatedon 11-24 Absolute Lymph 1.01 X10 3/uL Normal 0.83-4.51 [facility] Comment on above: Performed By: #### L 501.9520, L500.4050, L100.0100 ####[facility] [address] [place], [place], [id number] Absolute Neut 2.4 X10 3/uL Normal 2.0-7.7 [facility] Comment on above: Performed By: #### L 501.9520, L500.4050, L100.0100 ####[facility] [address] [place], [address] Basophils/100 WBC (Bld) 1.2 % High 0-1 [facility] Comment on above: Performed By: #### L 501.9520, L500.4050, L100.0100 ####[facility] [address] [place], [address] Eosinophils/100 WBC (Bld) 3.7 % Normal 0-5 [facility] Comment on above: Performed By: #### L 501.9520, L500.4050, L100.0100 ####[facility] [address] [place], [address] Erythrocyte distribution width (RBC) [Ratio] 14.7 % High 11.6-14.6 [facility] Comment on above: Performed By: #### L 501.9520, L500.4050, L100.0100 ####[facility] [address] [place], [address] Hematocrit (Bld) [Volume fraction] 36.6 % Low 40-54 [facility] Comment on above: Performed By: #### L 501.9520, L500.4050, L100.0100 ####[facility] [address] [place], [address] Hemoglobin (Bld) [Mass/Vol] 12.5 g/dL Low 13.0-16.5 [facility] Comment on above: Performed By: #### L 501.9520, L500.4050, L100.0100 ####[facility] [address] [place], [address] IG% 0.200 Normal 0.0-0.9 [facility] Comment on above: Result Comment: IG% - Immature Granulocytes (promyelocytes, myelocytes and metamyelocytes) > 1% indicates that a LEFT SHIFT is Present. Performed By: #### L 501.9520, L500.4050, L100.0100 ####[facility] [address] [place], [address] Lymphocytes/100 WBC (Bld) 25.1 % Normal 19-41 [facility] Comment on above: Performed By: #### L 501.9520, L500.4050, L100.0100 ####[facility] [address] [place], [address] MCH (RBC) [Entitic mass] 36.4 pg High 27.0-32.0 [facility] Comment on above: Performed By: #### L 501.9520, L500.4050, L100.0100 ####[facility] [address] [place], [address] MCHC (RBC) [Mass/Vol] 34.2 g/dL Normal 32-36 [facility] Comment on above: Performed By: #### L 501.9520, L500.4050, L100.0100 ####[facility] [address] [place], [address] MCV (RBC) [Entitic vol] 106.7 fL High 80-94 [facility] Comment on above: Performed By: #### L 501.9520, L500.4050, L100.0100 ####[facility] [address] [place], [address] Monocytes/100 WBC (Bld) 11.2 % High 0-10 [facility] Comment on above: Performed By: #### L 501.9520, L500.4050, L100.0100 ####[facility] [address] [place], [address] Neutrophils/100 WBC (Bld) 58.6 % Normal 47-70 [facility] Comment on above: Performed By: #### L 501.9520, L500.4050, L100.0100 ####[facility] [address] [place], [address] Nucleated RBC (Bld) [#/Vol] 0 10*3/uL Normal 0-5 [facility] Comment on above: Performed By: #### L 501.9520, L500.4050, L100.0100 ####[facility] [address] [place], [address] Platelet mean volume (Bld) [Entitic vol] 10.5 fL Normal 6.2-12.0 [facility] Comment on above: Performed By: #### L 501.9520, L500.4050, L100.0100 ####[facility] [address] [place], [address] Platelets (Bld) [#/Vol] 91 10*3/uL Low 150-450 [facility] Comment on above: Performed By: #### L 501.9520, L500.4050, L100.0100 ####[facility] [address] [place], [address] RBC (Bld) [#/Vol] 3.43 10*6/uL Low 4.6-6.2 [facility] Comment on above: Performed By: #### L 501.9520, L500.4050, L100.0100 ####[facility] [address] [place], [address] RDW SD 58.6 fl High 35.1-43.9 [facility] Comment on above: Performed By: #### L 501.9520, L500.4050, L100.0100 ####[facility] [address] [place], [address] WBC (Bld) [#/Vol] 4.0 10*3/uL Low 4.4-11.0 [facility] Comment on above: Performed By: #### L 501.9520, L500.4050, L100.0100 ####[facility] [address] [place], [address] Carbon dioxide measurementOr dered By: Tana Farmer on 12-16-2024 CO2 [Moles/Vol] 28.0 mmol/L 21.0-32.0 [facility] Chloride measurementOrdered By: Tana Farmer on 12-16-2024 Chloride [Moles/Vol] 104 mmol/L 98-107 [facility] Comprehensive Metabolic Prof ilon 12-16-2024 Albumin [Mass/Vol] 2.4 g/dL Low 3.2-5.0 [facility] Comment on above: Performed By: #### L 501.9520, L500.4050, L100.0100 ####[facility] [address] [place], [address] Albumin/Globulin [Mass ratio] 0.5 {ratio} Low 0.9-2.4 [facility] Comment on above: Performed By: #### L 501.9520, L500.4050, L100.0100 ####[facility] [address] [place], [address] ALK P 399 U/L High 45-117 [facility] Comment on above: Performed By: #### L 501.9520, L500.4050, L100.0100 ####[facility] [address] [place], [address] ALT [Catalytic activity/Vol] 43 U/L Normal 16-61 [facility] Comment on above: Performed By: #### L 501.9520, L500.4050, L100.0100 ####[facility] [address] [place], [address] AST [Catalytic activity/Vol] 86 U/L High 15-37 [facility] Comment on above: Performed By: #### L 501.9520, L500.4050, L100.0100 ####[facility] [address] [place], [address] Bilirubin [Mass/Vol] 9.00 mg/dL High 0.20-1.00 [facility] Comment on above: Result Comment: For patients on eltrombopag therapy, use of Dimension [place] TBIL is not recommended. Performed By: #### L 501.9520, L500.4050, L100.0100 ####[facility] [address] [place], [address] BUN/CRE 4.2 RATIO Low 10-20 [facility] Comment on above: Performed By: #### L 501.9520, L500.4050, L100.0100 ####[facility] [address] [place], [address] CA,Total 8.7 mg/dL Normal 8.5-10.1 [facility] Comment on above: Performed By: #### L 501.9520, L500.4050, L100.0100 ####[facility] [address] [place], [address] Chloride [Moles/Vol] 104 mmol/L Normal 98-107 [facility] Comment on above: Performed By: #### L 501.9520, L500.4050, L100.0100 ####[facility] [address] [place], [address] CO2 [Moles/Vol] 28.0 mmol/L Normal 21.0-32.0 [facility] Comment on above: Performed By: #### L 501.9520, L500.4050, L100.0100 ####[facility] [address] [place], [address] Creatinine [Mass/Vol] 0.72 mg/dL Normal 0.70-1.30 [facility] Comment on above: Result Comment: The validity of the calculated GFR GFRAA in patients over 70 years has not been determined. Clinical correlation is essential. Performed By: #### L 501.9520, L500.4050, L100.0100 ####[facility] [address] [place], [address] EST GFR - AA 146 mL/min Normal >60 [facility] Comment on above: Result Comment: Afri can [place] GFR Calc Performed By: #### L 501.9520, L500.4050, L100.0100 ####[facility] [address] [place], [address] GAP 5 Normal 5-15 [facility] Comment on above: Performed By: #### L 501.9520, L500.4050, L100.0100 ####[facility] [address] [place], [address] GFR/1.73 sq M.predicted among non-blacks MDRD (S/P/Bld) [Vol rate/Area] 121 mL/min/{1.73_m2} Normal >60 [facility] Comment on above: Result Comment: Non- GFR Calc Performed By: #### L 501.9520, L500.4050, L100.0100 ####[facility] [address] [place], [address] Globulin (S) [Mass/Vol] 4.5 g/dL High 2.2-4.2 [facility] Comment on above: Performed By: #### L 501.9520, L500.4050, L100.0100 ####[facility] [address] [place], [address] Glucose [Mass/Vol] 91 mg/dL Normal 74-106 [facility] Comment on above: Performed By: #### L 501.9520, L500.4050, L100.0100 ####[facility] [address] [place], [address] Potassium [Moles/Vol] 3.7 mmol/L Normal 3.5-5.1 [facility] Comment on above: Performed By: #### L 501.9520, L500.4050, L100.0100 ####[facility] [address] [place], [address] Sodium [Moles/Vol] 137 mmol/L Normal 136-145 [facility] Comment on above: Performed By: #### L 501.9520, L500.4050, L100.0100 ####[facility] [address] [place], [address] T PROT 6.9 g/dL Normal 6.4-8.2 [facility] Comment on above: Performed By: #### L 501.9520, L500.4050, L100.0100 ####[facility] [address] [place], [address] Urea nitrogen [Mass/Vol] 3 mg/dL Low 7-18 [facility] Comment on above: Performed By: #### L 501.9520, L500.4050, L100.0100 ####[facility] [address] [place], [address] Eosinophil percentageOrdered By: Tana Farmer on 12-16-2024 Eosinophils/100 WBC (Bld) 3.7 % 0-5 [facility] Erythrocyte distribution wid th ratioOrdered By: Tana Farmer on 12-16-2024 Erythrocyte distribution width (RBC) [Ratio] 14.7 % High 11.6-14.6 [facility] Erythrocyte distribution wid th standard deviationOrdered By: Tana Farmer on 12-16-2024 Erythrocyte distribution width (RBC) [Ratio] 58.6 fl High 35.1-43.9 [facility] Glomerular filtration rate ( GFR) estimationOrdered By: Tana Farmer on 12-16-2024 GFR/1.73 sq M.predicted among non-blacks MDRD (S/P/Bld) [Vol rate/Area] 121 mL/min/{1.73_m2} >60 [facility] Comment on above: Non- GFR Calc Glucose measurementOrdered B y: Tana Farmer on 12-16-2024 Glucose [Mass/Vol] 91 mg/dL 74-106 [facility] Hematocrit Auto (Bld) [Volum e fraction]Ordered By: Fifilorrainephyliciajames Hutchinssukhdeepeliana on 12-16-2024 Hematocrit (Bld) [Volume fraction] 36.6 % Low 40-54 [facility] Hemoglobin measurementOrdere d By: Tana Farmer on 12-16-2024 Hemoglobin (Bld) [Mass/Vol] 12.5 g/dL Low 13.0-16.5 [facility] Immature granulocytes/100 WB C Auto (Bld)Ordered By: Fifiservando Hutchinssukhdeepeliana on 12-16-2024 Immature granulocytes/100 WBC (Bld) 0.200 % 0.0-0.9 [facility] Comment on above: IG% - Immature Granu locytes (promyelocytes, myelocytes and metamyelocytes) > 1% indicates that a LEFT SHIFT is Present. Internal Medicine Office Vis iton 12-16-2024 Internal Medicine Office Visit [facility] [address] [place] [address] OFFICE VISIT Date of Service: 12/16/24 MR#: [id number] Acct: [id number] Name: ARYAN VALLE Rep #: [id number] : 1970 Provider: Dr. Tana lobo MD Age/Sex: 54/M Location: [facility] Status: Signed Intake Vital Signs 06/24/24 10:19 10/26/24 14:15 11/24/24 17:39 12/16/24 09:04 Height 6 ft 5 ft 11 in 5 ft 11 in 5 ft 11 in Weight: 229 lb BMI 31.9 BP 130/60 H Blood Pressure Location Lt brachial Position Sitting Respiration 16 Pulse 78 Pulse Source Monitor Temp 98.1 F Temp Source Temporal Pulse Oximetry (%) 98 Oxygen Delivery Method room air Intake Visit Reasons: 4 M FU Chief Complaint: 4m fu X Ray Physician Required: No Accompanied by: Self Is patient in pain?: Yes (feet/ legs B/L) Pain scale (1-10): 9 Allergies No Known Allergies Allergy (Verified 12/16/24 09:00) Medications ???Medication ???Instructions ???Recorded ???Confirmed ???Type compress.stocking,knee,r eg,lrg #2 ea 09/18/21 12/16/24 Rx lidocaine 5 % topical patch 1 patch topical DAILY PRN rib pain 07/10/22 12/16/24 Rx #30 ea meclizine 25 mg tablet 25 mg PO BID PRN for dizziness #60 02/15/24 12/16/24 Rx (Travel-Ease (meclizine)) TABLETS alpha lipoic acid 600 mg capsule 600 mg PO TID #120 caps 06/24/24 12/16/24 Rx lactulose 10 gram/15 mL (15 mL) 10 g (15 mL) PO BID potassium 3 06/24/24 12/16/24 Rx oral solution months #2,700 mL spironolactone 25 mg tablet 25 mg PO BID #180 TABLETS 06/24/24 12/16/24 Rx compress.stocking,knee,r eg,lrg #2 ea 07/01/24 12/16/24 Rx levetiracetam 1,000 mg tablet 1,000 mg PO BID ? #180 tabs 08/04/24 12/16/24 Rx levothyroxine 50 mcg tablet 50 mcg PO DAILY thyroid #30 tabs 12/08/24 12/16/24 Rx gabapentin 600 mg tablet 600 mg PO BID pain #60 tabs 12/13/24 12/16/24 Rx furosemide 40 mg tablet 40 mg PO BIDLX #60 tabs 12/16/24 12/16/24 Rx PFSH Medical History Dark urine Elevated CA 19-9 level Dermatitis Hypothyroidism Decreased urination Erectile dysfunction Change in bowel habits Nausea vomiting Swallowing problem Abdominal pain Thrombocytopenia Alcoholic hepatitis Obesity (BMI 30.0-34.9) Abnormal thyroid function test Venous insufficiency of both lower extremities Back pain Limb weakness Balance problem Knee pain Diarrhea Chest pain Neuropathy of both feet Fracture, ribs Brain atrophy History of alcohol abuse Arthritis Seizures Glaucoma Hypertension Hyperlipemia Surgical History History of surgical procedure on eye proper using laser History of bilateral hip replacements History of tonsillectomy Family History Father Alcoholism Heart disease Myocardial infarction Mother Arthritis Sister Depression Grandfather Myocardial infarction Grandfather CVA (cerebral vascular accident) Social History Smoking Status: Never smoker Smokeless tobacco user: chewing tobacco Electronic Cigarette Use: not used second hand exposure: Yes alcohol intake: current alcohol intake frequency: 3 or more drinks per day Alcohol type: beer details: 4-6 beers a day substance use type: does not use what type of physical activity do you participate in: walking frequency: daily HPI HPI Chief Complaint: 4m fu Details: ARYAN VALLE, is a 54 M who presents to the office today for follow-up of his chronic conditions. History of cirrhosis, yet to schedule with GI. He states that his work schedule has been conflicting. Ongoing bilateral lower extremity edema, history of ascites. History of significant alcohol use. History of hypertension, blood pressure today is at 130/60 mmHg. No chest pain, palpitation or shortness of breath. Also history of hypothyroidism on levothyroxine, he states that he is taking his medication consistently. No heat or cold intolerance or unintentional weight changes. Other chronic medical conditions are stable. ROS Const Constitutional: No body ache, chills, excessive sweating, fatigue, fever(s), frequent falls, headache(s), snoring, weakness, weight change or change in appetite Eyes Eyes: No blurry vision, change in vision, eye pain or Light sensitivity ENT ENT: No abnormal hearing, ear or mastoid pain, tinnitus, nasal congestion, headache(s), neck pain or sore throat Resp Respiratory: No cough, shortness of breath, snoring or wheezing Cardio Cardiology: No chest pain at rest, chest pain with exertion, excessive sweating, dyspnea on exertion, lightheadedness, orthopnea or palpitations Gastro GI: No abdominal pain, change in bowel habits, constipation, cramp (more content not included)... Normal [facility] Laboratory - Chemistry and C hemistry - challengeOrdered By: Tana Farmer on 12-16-2024 AST [Catalytic activity/Vol] 86 U/L High 15-37 [facility] MCV (mean corpuscular volume ) determinationOrdered By: Tana Farmer on 12-16-2024 MCV (RBC) [Entitic vol] 106.7 fL High 80-94 [facility] Mean corpuscular hemoglobin (MCH) determinationOrdered By: Tana Farmer on 12-16-2024 MCH (RBC) [Entitic mass] 36.4 pg High 27.0-32.0 [facility] Mean corpuscular hemoglobin concentration (MCHC) determinationOrdered By: Tana Farmer on 12-16-2024 MCHC (RBC) [Mass/Vol] 34.2 g/dL 32-36 [facility] Mean platelet volume determi nationOrdered By: Tana Farmer on 12-16-2024 Platelet mean volume (Bld) [Entitic vol] 10.5 fL 6.2-12.0 [facility] Monocyte percentageOrdered B y: Tana Farmer on 12-16-2024 Monocytes/100 WBC (Bld) 11.2 % High 0-10 [facility] Neutrophil percentageOrdered By: Tana Farmer on 12-16-2024 Neutrophils/100 WBC (Bld) 58.6 % 47-70 [facility] Nucleated red blood cell per centageOrdered By: Tana Farmer on 12-16-2024 Nucleated RBC/100 WBC (Bld) [Ratio] 0 % 0-5 [facility] Platelet countOrdered By: Fifi Farmer on 12-16-2024 Platelets (Bld) [#/Vol] 91 10*3/uL Low 150-450 [facility] Potassium measurementOrdered By: Tana Farmer on 12-16-2024 Potassium [Moles/Vol] 3.7 mmol/L 3.5-5.1 [facility] RBC Auto (Bld) [#/Vol]Ordere d By: Tana Farmer on 12-16-2024 RBC (Bld) [#/Vol] 3.43 10*6/uL Low 4.6-6.2 [facility] Serum anion gap measurementO rdered By: Tana Farmer on 12-16-2024 Anion gap [Moles/Vol] 5 mmol/L 5-15 [facility] Serum globulin measurementOr dered By: Tana Farmer on 12-16-2024 Globulin (S) [Mass/Vol] 4.5 g/dL High 2.2-4.2 [facility] Serum or plasma alanine tony otransferase (ALT) measurementOrdered By: Tana Farmer on 12-16-2024 ALT [Catalytic activity/Vol] 43 U/L 16-61 [facility] Serum or plasma albumin nadja urement (mass/volume)Ordered By: Tana Farmer on 12-16-2024 Albumin [Mass/Vol] 2.4 g/dL Low 3.2-5.0 [facility] Serum or plasma alkaline jermaine sphatase measurementOrdered By: Tana Farmer on 12-16-2024 ALP [Catalytic activity/Vol] 399 U/L High 45-117 [facility] Serum or plasma calcium nadja urement (mass/volume)Ordered By: Tana Farmer on 12-16-2024 Calcium [Mass/Vol] 8.7 mg/dL 8.5-10.1 [facility] Serum or plasma creatinine m easurement (mass/volume)Ordered By: Tana Farmer on 12-16-2024 Creatinine [Mass/Vol] 0.72 mg/dL 0.70-1.30 [facility] Comment on above: The validity of the calculated GFR & GFRAA in patients over 70 years has not been determined. Clinical correlation is essential. Serum or plasma thyroid stim ulating hormone (TSH) measurement (units/volume)Ordered By: Tana Farmer on 12-16-2024 TSH Qn 6.180 uIU/mL High 0.358-3.740 [facility] Serum or plasma urea nitroge n measurement (mass/volume)Ordered By: Tana Farmer on 12-16-2024 Urea nitrogen [Mass/Vol] 3 mg/dL Low 7-18 [facility] Sodium levelOrdered By: Katya Farmer on 12-16-2024 Sodium [Moles/Vol] 137 mmol/L 136-145 [facility] Thyroid Stim Hormone (TSH)on 12-16-2024 TSH 6.180 uIU/mL High 0.358-3.740 [facility] Comment on above: Performed By: #### L 501.9520, L500.4050, L100.0100 ####[facility] [id number] [facility]. [place], [place], [id number] Total proteinOrdered By: Mack petit Cuongnew on 12-16-2024 Protein [Mass/Vol] 6.9 g/dL 6.4-8.2 [facility] White blood cell (WBC) count Ordered By: Tana Cuongsukhdeepeliana on 12-16-2024 WBC (Bld) [#/Vol] 4.0 10*3/uL Low 4.4-11.0 [facility] Chest 1 View (Portable)on Chest 1 View (Portable) [facility] Imaging Services [address], [place] [address] Chest 1 View (Portable) MR#: [id number] Acct: [id number] Name: ARYAN VALLE Rep #: [id number] : 1970 M 54 From: Chaya Ferrari MD PCP: Dr. Tana Farmer MD Status: REG ER Study: Chest 1 View (Portable) Date of Exam: 11/24/24 Exam# [id number] Ordering Dr: Caridad Go DO [id number] EXAM: XR CHEST, 1 VIEW CLINICAL INDICATION: chest pain TECHNIQUE: Frontal view of the chest. COMPARISON: September 30, 2021. FINDINGS: LUNGS AND PLEURAL SPACES: Mildly low lung volumes compared to prior exam. No pneumothorax. No effusion. HEART: Unremarkable. Cardiac silhouette not enlarged. MEDIASTINUM: Central airways and mediastinal contour are unremarkable. BONES/JOINTS: Similar old healed fractures of multiple left posterior lateral ribs with callus. SOFT TISSUES: Unremarkable. RAD/Chest 1 View (Portable) IMPRESSION: No acute findings in the chest. Electronically Signed: Chaya Ferrari MD at 20:41 EST , CC: Dr. Caridad Go DO; Dr. Tana Farmer MD Metal Trimmer: Signed Normal [facility] Emergency Department Summary on 11-24-2024 Emergency Department Summary [facility] Medical Records Department [address] [place] [address] Emergency Department Summary 11/24/24 MR#: [id number] Acct: [id number] Name: ARYAN VALLE Rep #: [id number] : 1970 54 From: Caridad Go DO PCP: Dr. Tana Farmer MD Status:REG ER Location: ED HPI History of Present Illness Chief Complaint: Chest Other Informant: patient Narrative Narrative: Patient is a 54-year-old male with history of liver cirrhosis secondary to alcohol abuse was noted. Presenting for concern of infection. Patient had a mechanical fall 2 days ago. 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 He slipped on the ice and fell. He landed on his left side. States his left side/chest took the brunt of his injuries. He states he did hit his head but had no loss of conscious. He is not on any blood thinners. He denies any headache. Denies any associate numbness or tingling. Is complaining of continued left-sided rib pain. Pain is worse with movement or deep inspiration. Describes as sharp. Thinks he might of broken a rib. Has been taking his prescribed gabapentin for pain but nothing else. No other complaints or concerns reported at this time. [facility] Medical History Dark urine Elevated CA 19-9 level Dermatitis Hypothyroidism Decreased urination Erectile dysfunction Change in bowel habits Nausea vomiting Swallowing problem Abdominal pain Thrombocytopenia Alcoholic hepatitis Obesity (BMI 30.0-34.9) Abnormal thyroid function test Venous insufficiency of both lower extremities Back pain Limb weakness Balance problem Knee pain Diarrhea Chest pain Neuropathy of both feet Fracture, ribs Brain atrophy History of alcohol abuse Arthritis Seizures Glaucoma Hypertension Hyperlipemia Home Medications ???Medication ???Instructions ???Recorded ???Last Taken ???Type compress.stocking,knee,r eg,lrg #2 ea 09/18/21 Unknown Rx lidocaine 5 % topical patch 1 patch topical DAILY PRN rib pain 07/10/22 Unknown Rx #30 ea meclizine 25 mg tablet 25 mg PO BID PRN for dizziness #60 02/15/24 Unknown Rx (Travel-Ease (meclizine)) TABLETS alpha lipoic acid 600 mg capsule 600 mg PO TID #120 caps 06/24/24 Unknown Rx furosemide 20 mg tablet 20 mg PO BIDLX 120 days #180 tabs 06/24/24 Unknown Rx lactulose 10 gram/15 mL (15 mL) 10 g (15 mL) PO BID potassium 3 06/24/24 Unknown Rx oral solution months #2,700 mL spironolactone 25 mg tablet 25 mg PO BID #180 TABLETS 06/24/24 Unknown Rx compress.stocking,knee,r eg,lrg #2 ea 07/01/24 Unknown Rx levetiracetam 1,000 mg tablet 1,000 mg PO BID ? #180 tabs 08/04/24 Unknown Rx levothyroxine 50 mcg tablet 50 mcg PO DAILY thyroid #90 tabs 08/04/24 Unknown Rx gabapentin 600 mg tablet 600 mg PO BID pain #60 tabs 10/03/24 Unknown Rx oxycodone 5 mg tablet 5 mg PO Q6H PRN pain 3 days #12 11/24/24 Unknown Rx tabs Allergy/AdvReac Type Severity Reaction Status Date / Time No Known Allergies Allergy Verified 11/24/24 17:38 Family History Father Alcoholism Heart disease Myocardial infarction Mother Arthritis Sister Depression Grandfather Myocardial infarction Grandfather CVA (cerebral vascular accident) Surgical History History of surgical procedure on eye proper using laser History of bilateral hip replacements History of tonsillectomy Social History Smoking Status: Never smoker Smokeless tobacco user: chewing tobacco Electronic Cigarette Use: not used second hand exposure: Yes alcohol intake: current alcohol intake frequency: 3 or more drinks per day Alcohol type: beer details: 4-6 beers a day substance use type: does not use what type of physical activity do you participate in: walking frequency: daily ROS ROS ED Constitutional Constitutional ED: Denies chills or fever(s) Eyes Eyes: Denies change in vision Cardiovascular Cardiovascular: Reports chest pain Respiratory/Chest Respiratory/Chest: Reports dyspnea and other Details: mild hemoptysis ; Denies cough Gastrointestinal Gastrointestinal: Denies abdominal pain, nausea or vomiting Integumentary Denies rash Neurologic Neurologic: Denies headache(s) or weakness Hematologic/Lymphatic Hematologic/Lymphatic: Reports easy bleeding and easy bruising EXAM Physical Exam Const Vital Signs: 11/24/24 17:39 11/24/24 19:33 Temperature 97.1 F L Temperature Source Temporal Pulse Rate 81 Respiratory Rate 16 Respiratory Effort Normal Blood Pressure 128/78 H Blood Pressure Mean 94 Pulse Ox 98 Oxygen Delivery Method Room Air Positiv (more content not included)... Normal [facility] Internal Medicine Office Vis iton 10-26-2024 Internal Medicine Office Visit [facility] [address] [place] [address] [place] [address] OFFICE VISIT Date of Service: 10/26/24 MR#: [id number] Acct: [id number] Name: ARYAN VALLE Rep #: [id number] : 1970 Provider: MEGHNA Bartlett Age/Sex: 54/M Location: [facility] Status: Signed Intake Vital Signs 10/17/24 17:18 10/26/24 14:15 Height 5 ft 11 in 5 ft 11 in Weight: 225 lb BMI 31.4 BP 128/82 H Blood Pressure Location Lt brachial Position Sitting Respiration 16 Pulse 90 Pulse Source Monitor Temp 97.6 F L Temp Source Temporal Pulse Oximetry (%) 98 Oxygen Delivery Method room air Intake Visit Reasons: LARGE BUMP ON GROIN Chief Complaint: bump on groin area X Ray Physician Required: No Accompanied by: Self Is patient in pain?: Yes (groin, depending on position ) Pain scale (1-10): 8 Allergies No Known Allergies Allergy (Verified 10/26/24 14:08) Medications ???Medication ???Instructions ???Recorded ???Confirmed ???Type compress.stocking,knee,r eg,lrg #2 ea 09/18/21 10/26/24 Rx lidocaine 5 % topical patch 1 patch topical DAILY PRN rib pain 07/10/22 10/26/24 Rx #30 ea meclizine 25 mg tablet 25 mg PO BID PRN for dizziness #60 02/15/24 10/26/24 Rx (Travel-Ease (meclizine)) TABLETS alpha lipoic acid 600 mg capsule 600 mg PO TID #120 caps 06/24/24 10/26/24 Rx furosemide 20 mg tablet 20 mg PO BIDLX 120 days #180 tabs 06/24/24 10/26/24 Rx lactulose 10 gram/15 mL (15 mL) 10 g (15 mL) PO BID potassium 3 06/24/24 10/26/24 Rx oral solution months #2,700 mL spironolactone 25 mg tablet 25 mg PO BID #180 TABLETS 06/24/24 10/26/24 Rx compress.stocking,knee,r eg,lrg #2 ea 07/01/24 10/26/24 Rx levetiracetam 1,000 mg tablet 1,000 mg PO BID ? #180 tabs 08/04/24 10/26/24 Rx levothyroxine 50 mcg tablet 50 mcg PO DAILY thyroid #90 tabs 08/04/24 10/26/24 Rx gabapentin 600 mg tablet 600 mg PO BID pain #60 tabs 10/03/24 10/26/24 Rx PFSH Medical History Dark urine Elevated CA 19-9 level Dermatitis Hypothyroidism Decreased urination Erectile dysfunction Change in bowel habits Nausea vomiting Swallowing problem Abdominal pain Thrombocytopenia Alcoholic hepatitis Obesity (BMI 30.0-34.9) Abnormal thyroid function test Venous insufficiency of both lower extremities Back pain Limb weakness Balance problem Knee pain Diarrhea Chest pain Neuropathy of both feet Fracture, ribs Brain atrophy History of alcohol abuse Arthritis Seizures Glaucoma Hypertension Hyperlipemia Surgical History History of surgical procedure on eye proper using laser History of bilateral hip replacements History of tonsillectomy Family History Father Alcoholism Heart disease Myocardial infarction Mother Arthritis Sister Depression Grandfather Myocardial infarction Grandfather CVA (cerebral vascular accident) Social History Smoking Status: Never smoker Smokeless tobacco user: chewing tobacco Electronic Cigarette Use: not used second hand exposure: Yes alcohol intake: current alcohol intake frequency: 3 or more drinks per day Alcohol type: beer details: 4-6 beers a day substance use type: does not use what type of physical activity do you participate in: walking frequency: daily HPI HPI Chief Complaint: bump on groin area Details: ARYAN VALLE, is a 54 M who presents to the office today for lump in the left groin area. He states that he noticed this a few months ago. He states that he was walking one day at work when he felt a sort of burning / stinging pain in the groin. He states that he thought maybe he had an infected hair or some other skin irritation. He states that he has not ever had any urinary changes (denies dysuria, urinary frequency, hesitancy, penile discharge or other urinary changes). He states that the bump has stayed pretty much the same maybe overall a little bigger. He does do a lot of heavy lifting at work. He does notice that some days he notices the area more than other days. He did go to the ED for evaluation where they did a CT scan. He states that this did not show anything acute nor did it show any evident hernias. Patient has a history of swelling in the extremities as well as some cirrhosis of the liver. He states that for about 10 year he would drink about 30 pack per DAY. He states that he has cut down over time and is now maybe 3-4 beers per day. ROS Const Constitutional: No body ache, chills, excessive sweating, fatigue, fever(s), frequent falls, headache(s), snoring, weakness or change in appetite Eyes Eyes: No blurry vision, change in vision, eye pain or Light sensitivit (more content not included)... Normal [facility] BNP,B-Type NATRIURETIC PEPTI Robert 10-17-2024 Natriuretic peptide B (Bld) [Mass/Vol] 54.6 pg/mL Normal 0-100 [facility] Comment on above: Performed By: #### L 503.6620 #### [facility] [address] [place], [address] Basic Metabolic Profile (BMP )on 10-17-2024 BUN/CRE 5.7 RATIO Low 10-20 [facility] Comment on above: Performed By: #### L 100.0100, L500.2500, L500.3400 #### [facility] [address] [place], [address] CA,Total 8.5 mg/dL Normal 8.5-10.1 [facility] Comment on above: Performed By: #### L 100.0100, L500.2500, L500.3400 #### [facility] [address] [place], [address] Chloride [Moles/Vol] 107 mmol/L Normal 98-107 [facility] Comment on above: Performed By: #### L 100.0100, L500.2500, L500.3400 #### [facility] [address] [place], [address] CO2 [Moles/Vol] 29.0 mmol/L Normal 21.0-32.0 [facility] Comment on above: Performed By: #### L 100.0100, L500.2500, L500.3400 #### [facility] [address] [place], [address] Creatinine [Mass/Vol] 0.70 mg/dL Normal 0.70-1.30 [facility] Comment on above: Result Comment: The validity of the calculated GFR GFRAA in patients over 70 years has not been determined. Clinical correlation is essential. Performed By: #### L 100.0100, L500.2500, L500.3400 #### [facility] [address] [place], [address] ECRCL 149.08 ml/min Normal [facility] Comment on above: Performed By: #### L 100.0100, L500.2500, L500.3400 #### [facility] [address] [place], [address] EST GFR - AA 151 mL/min Normal >60 [facility] Comment on above: Result Comment: Afri can Citizen [place] GFR Calc Performed By: #### L 100.0100, L500.2500, L500.3400 #### [facility] [address] [place], [address] GAP 6 Normal 5-15 [facility] Comment on above: Performed By: #### L 100.0100, L500.2500, L500.3400 #### [facility] [address] [place], [address] GFR/1.73 sq M.predicted among non-blacks MDRD (S/P/Bld) [Vol rate/Area] 125 mL/min/{1.73_m2} Normal >60 [facility] Comment on above: Result Comment: Non- GFR Calc Performed By: #### L 100.0100, L500.2500, L500.3400 #### [facility] [address] [place], [address] Glucose [Mass/Vol] 125 mg/dL High 74-106 [facility] Comment on above: Result Comment: Fast ing Glucose result from 100 to 125 mg/dL suggests IMPAIRED HOMEOSTASIS per A.D.A. criteria. Performed By: #### L 100.0100, L500.2500, L500.3400 #### [facility] [address] [place], [address] Potassium [Moles/Vol] 3.5 mmol/L Normal 3.5-5.1 [facility] Comment on above: Performed By: #### L 100.0100, L500.2500, L500.3400 #### [facility] [address] [place], [address] Sodium [Moles/Vol] 142 mmol/L Normal 136-145 [facility] Comment on above: Performed By: #### L 100.0100, L500.2500, L500.3400 #### [facility] [address] [place], [address] Urea nitrogen [Mass/Vol] 4 mg/dL Low 7-18 [facility] Comment on above: Performed By: #### L 100.0100, L500.2500, L500.3400 #### [facility] [address] [place], [address] CBC W/Diff, Automatedon 09-24 Anisocytosis Ql (Bld) 1+ Normal [facility] Comment on above: Performed By: #### L 100.0100, L500.2500, L500.3400 #### [facility] [address] [place], [address] MACROCYTOSIS 1+ Normal [facility] Comment on above: Performed By: #### L 100.0100, L500.2500, L500.3400 #### [facility] [address] [place], [address] PLT EST MOD DEC Normal ADEQ [facility] Comment on above: Performed By: #### L 100.0100, L500.2500, L500.3400 #### [facility] [address] [place], [address] RED CELL MORPH N CHROM Normal NORM C C [facility] Comment on above: Performed By: #### L 100.0100, L500.2500, L500.3400 #### [facility] [address] [place], [address] Emergency Department Summary on 10-17-2024 Emergency Department Summary [facility] Medical Records Department [address] [place] [address] Emergency Department Summary 10/17/24 MR#: [id number] Acct: [id number] Name: ARYAN VALLE Rep #: [id number] : 1970 54 From: Rakesh Loja MD PCP: Dr. Tana Farmer MD Status:DEP ER Location: ED HPI History of Present Illness Chief Complaint: Edema Informant: patient Narrative Narrative: 54-year-old male presents for edema in his legs. He states has been there for years and is not getting any better and he has a follow-up appointment with his doctor at the end of October and when he called today they could not get him in so he presents here for it. States he is on spironolactone and furosemide, does not think he is urinating as much as he should be remaining on those 2 diuretics. He denies any dyspnea with exertion or orthopnea or chest discomfort or other chest symptoms. He states he is a heavy drinker, when asked about the status of his cirrhosis which is in his chart, he states he has never been diagnosed with cirrhosis. He states multiple doctors seem to think he is jaundice, but he has not noticed any yellow discoloration or pruritus. He denies any abdominal pain or distention/swelling or blood in his stool or melena. He has tried compression stockings but they did not help so he stopped wearing them because they were uncomfortable. [facility] Medical History Dark urine Elevated CA 19-9 level Dermatitis Hypothyroidism Decreased urination Erectile dysfunction Change in bowel habits Nausea vomiting Swallowing problem Abdominal pain Thrombocytopenia Alcoholic hepatitis Obesity (BMI 30.0-34.9) Abnormal thyroid function test Venous insufficiency of both lower extremities Back pain Limb weakness Balance problem Knee pain Diarrhea Chest pain Neuropathy of both feet Fracture, ribs Brain atrophy History of alcohol abuse Arthritis Seizures Glaucoma Hypertension Hyperlipemia Home Medications ???Medication ???Instructions ???Recorded ???Last Taken ???Type compress.stocking,knee,r eg,lrg #2 ea 09/18/21 Unknown Rx lidocaine 5 % topical patch 1 patch topical DAILY PRN rib pain 07/10/22 Unknown Rx #30 ea meclizine 25 mg tablet 25 mg PO BID PRN for dizziness #60 02/15/24 Unknown Rx (Travel-Ease (meclizine)) TABLETS alpha lipoic acid 600 mg capsule 600 mg PO TID #120 caps 06/24/24 Unknown Rx furosemide 20 mg tablet 20 mg PO BIDLX 120 days #180 tabs 06/24/24 Unknown Rx lactulose 10 gram/15 mL (15 mL) 10 g (15 mL) PO BID potassium 3 06/24/24 Unknown Rx oral solution months #2,700 mL spironolactone 25 mg tablet 25 mg PO BID #180 TABLETS 06/24/24 Unknown Rx compress.stocking,knee,r eg,lrg #2 ea 07/01/24 Unknown Rx levetiracetam 1,000 mg tablet 1,000 mg PO BID ? #180 tabs 08/04/24 Unknown Rx levothyroxine 50 mcg tablet 50 mcg PO DAILY thyroid #90 tabs 08/04/24 Unknown Rx gabapentin 600 mg tablet 600 mg PO BID pain #60 tabs 10/03/24 Unknown Rx Allergy/AdvReac Type Severity Reaction Status Date / Time No Known Allergies Allergy Verified 10/17/24 17:18 Family History Father Alcoholism Heart disease Myocardial infarction Mother Arthritis Sister Depression Grandfather Myocardial infarction Grandfather CVA (cerebral vascular accident) Surgical History History of surgical procedure on eye proper using laser History of bilateral hip replacements History of tonsillectomy Social History Smoking Status: Never smoker Smokeless tobacco user: chewing tobacco Electronic Cigarette Use: not used second hand exposure: Yes alcohol intake: current alcohol intake frequency: 3 or more drinks per day Alcohol type: beer details: 4-6 beers a day substance use type: does not use what type of physical activity do you participate in: walking frequency: daily ROS ROS ED Constitutional Constitutional ED: Denies chills or fever(s) Eyes Eyes: Denies change in vision or diplopia ENT ENT ED: Denies rhinorrhea or sore throat Cardiovascular Cardiovascular: Reports leg edema; Denies chest pain, palpitations or syncope Respiratory/Chest Respiratory/Chest: Denies cough or dyspnea Gastrointestinal Gastrointestinal: Reports other Details: Left groin abdominal pain/bulging especially when coughs or lifts something at work ; Denies diarrhea, melena, nausea or vomiting Genitourinary Genitourinary ED: Denies dysuria or hematuria Musculoskeletal Musculoskeletal: Denies back pain or neck pain Integumentary Denies abscess or rash Neurologic Neurologic: Denies headache(s), paresthesias or weakness Psychiatric Psychiatr (more content not included)... Normal [facility] Liver Profileon 10-17-2024 Albumin [Mass/Vol] 2.6 g/dL Low 3.2-5.0 [facility] Comment on above: Performed By: #### L 100.0100, L500.2500, L500.3400 #### [facility] [address] [place], [address] ALK P 241 U/L High 45-117 [facility] Comment on above: Performed By: #### L 100.0100, L500.2500, L500.3400 #### [facility] [address] [place], [address] ALT [Catalytic activity/Vol] 48 U/L Normal 16-61 [facility] Comment on above: Performed By: #### L 100.0100, L500.2500, L500.3400 #### [facility] [address] [place], [address] AST [Catalytic activity/Vol] 126 U/L High 15-37 [facility] Comment on above: Performed By: #### L 100.0100, L500.2500, L500.3400 #### [facility] [address] [place], [address] Bilirubin [Mass/Vol] 7.30 mg/dL High 0.20-1.00 [facility] Comment on above: Result Comment: For patients on eltrombopag therapy, use of Dimension [place] TBIL is not recommended. Performed By: #### L 100.0100, L500.2500, L500.3400 #### [facility] [address] [place], [address] Bilirubin.direct [Mass/Vol] 3.76 mg/dL High 0.00-0.30 [facility] Comment on above: Performed By: #### L 100.0100, L500.2500, L500.3400 #### [facility] [address] [place], [address] Globulin (S) [Mass/Vol] 4.3 g/dL High 2.2-4.2 [facility] Comment on above: Performed By: #### L 100.0100, L500.2500, L500.3400 #### [facility] [address] [place], [address] T PROT 6.9 g/dL Normal 6.4-8.2 [facility] Comment on above: Performed By: #### L 100.0100, L500.2500, L500.3400 #### [facility] [address] [place], [address] Prothrombin Time w/INRon INR Normal [facility] Comment on above: Result Comment: Ronen otto via OM: Ordered Performed By: #### L 300.3900 #### [facility] [address] [place], [address] PROTIME Normal 11.7-14.9 [facility] Comment on above: Result Comment: Ronen otto via OM: Ordered Performed By: #### L 300.3900 #### [facility] [address] [place], [address] Urinalysis, Completeon 10-17 BACTERIA RARE Normal None Seen [facility] Comment on above: Order Comment: CLEAN CATCH Performed By: #### L 400.0001 #### [facility] [address] [place], [address] RBC 0-5 SEEN Normal 0-5 [facility] Comment on above: Order Comment: CLEAN CATCH Performed By: #### L 400.0001 #### [facility] [address] [place], [address] WBC 0-5 SEEN Normal 0-5 [facility] Comment on above: Order Comment: CLEAN CATCH Performed By: #### L 400.0001 #### [facility] [address] [place], [address] EPI,SQUAMOUS 0 SEEN Normal 0-5 [facility] Comment on above: Order Comment: CLEAN CATCH Performed By: #### L 400.0001 #### [facility] [address] [place], [address] Mucus Ql (Urine sed) 0 SEEN Normal [facility] Comment on above: Order Comment: CLEAN CATCH Performed By: #### L 400.0001 #### [facility] [address] [place], [address] Abdomen/Pelvis without Conto n 09-20-2024 Abdomen/Pelvis without Cont [facility] Imaging Services [address] [place] [address] Abdomen/Pelvis without Cont MR#: [id number] Acct: [id number] Name: ARYAN VALLE Rep #: [id number] : 1970 M 54 From: Jeremías wilhelm MD PCP: Dr. Tana Farmer MD Status: REG ER Study: Abdomen/Pelvis without Cont Date of Exam: 08/24 08/16 Exam# [id number] Ordering Dr: Dung Christine DO [id number] EXAM: CT ABDOMEN AND PELVIS WITHOUT INTRAVENOUS CONTRAST CLINICAL INDICATION: Left inguinal pain TECHNIQUE: Helically acquired images were obtained of the abdomen and pelvis without intravenous contrast. This CT exam was performed using one or more of the following dose reduction techniques: automated exposure control, adjustment of the mA and/or kV according to patient size, and/or use of iterative reconstruction technique. RADIATION DOSE: CTDIvol = 14.75 mGy, DLP = 821.95 mGy-cm COMPARISON: 07/16/2023 FINDINGS: LOWER THORAX: Unremarkable. Lung bases are clear. No cardiomegaly. No significant pericardial effusion. ABDOMEN: LIVER: Heterogeneous mildly nodular liver with overlying fluid, suggestive of cirrhosis. No focal mass. GALLBLADDER AND BILE DUCTS: Cholelithiasis. No gallbladder distention or wall edema. No intra- or extrahepatic biliary ductal dilation. PANCREAS: Unremarkable. No focal cystic mass. SPLEEN: Splenomegaly, stable. ADRENALS: Unremarkable. No nodules. KIDNEYS AND URETERS: Both kidneys suggest nephrocalcinosis without definite formed stones. Normal renal size and position. No hydronephrosis. No renal masses. STOMACH AND BOWEL: Evaluation of the GI tract is limited by absence of oral contrast. Cannot exclude stomach wall thickening. No dilated loops of bowel or evidence for obstruction. Cannot exclude segmental thickening of the arechiga of the small or large bowel. Cannot exclude enteritis or colitis. Moderate diffuse fecal retention. Appendix within normal limits. PELVIS: APPENDIX: No evidence of acute appendicitis. BLADDER: Unremarkable. REPRODUCTIVE: Unremarkable as visualized. No mass. ABDOMEN and PELVIS: INTRAPERITONEAL SPACE: Small amounts of free fluid. Findings suggestive of cirrhosis. No free air. BONES/JOINTS: Degenerative changes. No suspicious lytic or blastic abnormality. SOFT TISSUES: Diffuse increased density throughout the mesenteric fat suggestive of edema. No discrete abdominal or pelvic wall hernia. VASCULATURE: Probable extensive upper abdominal varices although this evaluation is markedly limited by the absence of IV contrast. Abdominal aorta is non-dilated. LYMPH NODES: Unremarkable. No enlarged lymph nodes. CT/Abdomen/Pelvis without Cont IMPRESSION: 1. Findings consistent with cirrhosis and secondary evidence of portal hypertension. 2. No acute abnormalities. 3. Diffuse nephrocalcinosis. Electronically Signed: Jeremías Ibrahim MD at 17:37 EDT , CC: Dr. Tana Farmer MD; Dr. Dung Christine DO Metal Trimmer: Signed Normal [facility] Basic Metabolic Profile (BMP )on 09-20-2024 BUN/CRE 6.0 RATIO Low 10- [facility] Comment on above: Performed By: #### L 300.3900, L500.2500, L501.2450, L300.4310 ####[facility] [address] [place], [address] CA,Total 9.1 mg/dL Normal 8.5-10.1 [facility] Comment on above: Performed By: #### L 300.3900, L500.2500, L501.2450, L300.4310 ####[facility] [address] [place], [address] Chloride [Moles/Vol] 105 mmol/L Normal 98-107 [facility] Comment on above: Performed By: #### L 300.3900, L500.2500, L501.2450, L300.4310 ####[facility] [address] [place], [address] CO2 [Moles/Vol] 26.0 mmol/L Normal 21.0-32.0 [facility] Comment on above: Performed By: #### L 300.3900, L500.2500, L501.2450, L300.4310 ####[facility] [address] [place], [address] Creatinine [Mass/Vol] 0.66 mg/dL Low 0.70-1.30 [facility] Comment on above: Result Comment: The validity of the calculated GFR GFRAA in patients over 70 years has not been determined. Clinical correlation is essential. Performed By: #### L 300.3900, L500.2500, L501.2450, L300.4310 ####[facility] [address] [place], [address] ECRCL 156.03 ml/min Normal [facility] Comment on above: Performed By: #### L 300.3900, L500.2500, L501.2450, L300.4310 ####[facility] [address] [place], [address] EST GFR - AA 161 mL/min Normal >60 [facility] Comment on above: Result Comment: Afri can Citizen [place] GFR Calc Performed By: #### L 300.3900, L500.2500, L501.2450, L300.4310 ####[facility] [address] [place], [address] GAP 6 Normal 5-15 [facility] Comment on above: Performed By: #### L 300.3900, L500.2500, L501.2450, L300.4310 ####[facility] [address] [place], [address] GFR/1.73 sq M.predicted among non-blacks MDRD (S/P/Bld) [Vol rate/Area] 133 mL/min/{1.73_m2} Normal >60 [facility] Comment on above: Result Comment: Non- GFR Calc Performed By: #### L 300.3900, L500.2500, L501.2450, L300.4310 ####[facility] [address] [place], [address] Glucose [Mass/Vol] 107 mg/dL High 74-106 [facility] Comment on above: Result Comment: Fast ing Glucose result from 100 to 125 mg/dL suggests IMPAIRED HOMEOSTASIS per A.D.A. criteria. Performed By: #### L 300.3900, L500.2500, L501.2450, L300.4310 ####[facility] [address] [place], [address] Potassium [Moles/Vol] 3.9 mmol/L Normal 3.5-5.1 [facility] Comment on above: Performed By: #### L 300.3900, L500.2500, L501.2450, L300.4310 ####[facility] [address] [place], [address] Sodium [Moles/Vol] 137 mmol/L Normal 136-145 [facility] Comment on above: Performed By: #### L 300.3900, L500.2500, L501.2450, L300.4310 ####[facility] [address] [place], [address] Urea nitrogen [Mass/Vol] 4 mg/dL Low 7-18 [facility] Comment on above: Performed By: #### L 300.3900, L500.2500, L501.2450, L300.4310 ####[facility] [address] [place], [address] CBC W/Diff, Automatedon 10-2 -2023 Absolute Lymph 0.81 X10 3/uL Low 0.83-4.51 [facility] Comment on above: Performed By: #### L 100.0100 #### [facility] [address] [place], [address] Absolute Neut 2.3 X10 3/uL Normal 2.0-7.7 [facility] Comment on above: Performed By: #### L 100.0100 #### [facility] [address] [place], [address] Basophils/100 WBC (Bld) 0.8 % Normal 0-1 [facility] Comment on above: Performed By: #### L 100.0100 #### [facility] [address] [place], [address] Eosinophils/100 WBC (Bld) 1.9 % Normal 0-5 [facility] Comment on above: Performed By: #### L 100.0100 #### [facility] [address] [place], [address] Erythrocyte distribution width (RBC) [Ratio] 14.2 % Normal 11.6-14.6 [facility] Comment on above: Performed By: #### L 100.0100 #### [facility] [address] [place], [address] Hematocrit (Bld) [Volume fraction] 35.7 % Low 40-54 [facility] Comment on above: Performed By: #### L 100.0100 #### [facility] [address] [place], [address] Hemoglobin (Bld) [Mass/Vol] 12.7 g/dL Low 13.0-16.5 [facility] Comment on above: Performed By: #### L 100.0100 #### [facility] [address] [place], [address] IG% 0.300 Normal 0.0-0.9 [facility] Comment on above: Result Comment: IG% - Immature Granulocytes (promyelocytes, myelocytes and metamyelocytes) > 1% indicates that a LEFT SHIFT is Present. Performed By: #### L 100.0100 #### [facility] [address] [facility] [place], [address] Lymphocytes/100 WBC (Bld) 22.5 % Normal 19-41 [facility] Comment on above: Performed By: #### L 100.0100 #### [facility] [address] [facility] [place], [address] MCH (RBC) [Entitic mass] 36.6 pg High 27.0-32.0 [facility] Comment on above: Performed By: #### L 100.0100 #### [facility] [address] [facility] [place], [address] MCHC (RBC) [Mass/Vol] 35.6 g/dL Normal 32-36 [facility] Comment on above: Performed By: #### L 100.0100 #### [facility] [address] [place], [address] MCV (RBC) [Entitic vol] 102.9 fL High 80-94 [facility] Comment on above: Performed By: #### L 100.0100 #### [facility] [address] [place], [address] Monocytes/100 WBC (Bld) 11.1 % High 0-10 [facility] Comment on above: Performed By: #### L 100.0100 #### [facility] [address] [place], [address] Neutrophils/100 WBC (Bld) 63.4 % Normal 47-70 [facility] Comment on above: Performed By: #### L 100.0100 #### [facility] [address] [place], [address] Nucleated RBC (Bld) [#/Vol] 0 10*3/uL Normal 0-5 [facility] Comment on above: Performed By: #### L 100.0100 #### [facility] [address] [place], [address] Platelet mean volume (Bld) [Entitic vol] 11.0 fL Normal 6.2-12.0 [facility] Comment on above: Performed By: #### L 100.0100 #### [facility] [address] [place], [address] Platelets (Bld) [#/Vol] 76 10*3/uL Low 150-450 [facility] Comment on above: Performed By: #### L 100.0100 #### [facility] [address] [place], [address] RBC (Bld) [#/Vol] 3.47 10*6/uL Low 4.6-6.2 [facility] Comment on above: Performed By: #### L 100.0100 #### [facility] [address] [place], [address] RDW SD 53.9 fl High 35.1-43.9 [facility] Comment on above: Performed By: #### L 100.0100 #### [facility] [address] [place], [address] WBC (Bld) [#/Vol] 3.6 10*3/uL Low 4.4-11.0 [facility] Comment on above: Performed By: #### L 100.0100 #### [facility] [address] [place], [address] CNOVon 09-20-2024 CNOV Office Visit (UCTR ) -------- ARYAN VALLE ([id number]) 1970 M Date Time Provider Department 09/20/24 10:45 AM CHRISTIAN GUERRERO [facility] During your visit today, we recorded the following information about you: Temperature Pulse Respiration Blood pressure 97.7 degrees 77/minute 20/minute 117/77 Weight 100 kg Christian Guerrero APRN.ARMATURE CONNECTOR 09/20/2024 11:40 AM Signed Subjective HPI HPI Aryan Warren Tori is a 54 year old male who presents today for CC of left groin pain rates 9/10. This started 1.5 weeks ago/severe now. .Patient presents with: Pain: :Left side groin pain, states area, is burning , stinging and aching x 1.5 weeks PAST MEDICAL HISTORY Diagnosis Date ETOH abuse 12 beers per day Seizures (HCC) controlled on dilantin Vertigo uses mecliznie daily PAST SURGICAL HISTORY Procedure Laterality Date PAST SURGICAL HISTORY OF 2007 total hip replacement TONSILLECTOMY HX remote ALLERGIES Patient has no known allergies. MEDICATIONS doxycycline monohydrate (MONODOX) 50 mg capsule Take 50 mg by mouth once daily. metroNIDAZOLE (METROGEL) 0.75 % Topical Gel Apply 0.75 % to affected area once daily. furosemide (LASIX) 20 mg tablet Take 20 mg by mouth two times a day. spironolactone (ALDACTONE) 25 mg tablet Take 25 mg by mouth once daily. gabapentin (NEURONTIN) 600 mg tablet Take 1 tablet by mouth every 12 hours 6am/6pm. levothyroxine (SYNTHROID) 25 mcg tablet Take 1 tablet by mouth every afternoon. levETIRAcetam (KEPPRA) 1,000 mg tablet TAKE 1 TABLET orally twice a day] ibuprofen (MOTRIN) 600 mg tablet meclizine 25 mg Tab Take 1 tablet by mouth every 6 hours as needed (for dizziness.). levETIRAcetam (KEPPRA) 750 mg tablet (Patient not taking: Reported on 06/14/2024) FAMILY HISTORY Problem Relation Age of Onset Arthritis Father Arthritis Brother Social History Tobacco Use Smoking status: Never Substance Use Topics Alcohol use: Yes Comment: daily, 12 beer a day, history of rehab Drug use: No Review of Systems Constitutional: Negative for fever. Gastrointestinal: Negative for abdominal pain, diarrhea, nausea and vomiting. Skin: Negative for itching and rash. Objective Blood pressure 117/77, pulse 77, temperature 36.5 ?C (97.7 ?F), resp. rate 20, weight 100 kg (220 lb 7.4 oz), SpO2 98%. Physical Exam Constitutional: General: He is not in acute distress. Appearance: Normal appearance. He is not toxic-appearing. Cardiovascular: Rate and Rhythm: Normal rate and regular rhythm. Heart sounds: Normal heart sounds. Pulmonary: Effort: Pulmonary effort is normal. Breath sounds: Normal breath sounds. Abdominal: General: Bowel sounds are normal. Palpations: Abdomen is soft. Tenderness: There is no abdominal tenderness. Genitourinary: Skin: General: Skin is warm and dry. ASSESSMENT/PLAN: 1. Left inguinal pain - ICD9: 789.04, ICD10: R10.32 D/t severity of pain I will refer to DOMINIQUE Guerrero APRN.ARMATURE CONNECTOR Allergies As of Date: 09/20/2024 (No Known Allergies) Date Reviewed: 09/20/2024 Reviewed by: Thalia Amos LPN - Fully Assessed Reason for Visit: Pain [78] Cmt: :Left side groin pain, states area, is burning , stinging and aching x 1.5 weeks Primary Visit Diagnosis:Left inguinal pain [R10.32] Prescriptions as of 09/20/2024 - doxycycline monohydrate (MONODOX) 50 mg capsule Take 50 mg by mouth once daily. - metroNIDAZOLE (METROGEL) 0.75 % Topical Gel Apply 0.75 % to affected area once daily. - furosemide (LASIX) 20 mg tablet Take 20 mg by mouth two times a day. - spironolactone (ALDACTONE) 25 mg tablet Take 25 mg by mouth once daily. - gabapentin (NEURONTIN) 600 mg tablet Take 1 tablet by mouth every 12 hours 6am/6pm. - levothyroxine (SYNTHROID) 25 mcg tablet Take 1 tablet by mouth every afternoon. - levETIRAcetam (KEPPRA) 1,000 mg tablet TAKE 1 TABLET orally twice a day] - ibuprofen (MOTRIN) 600 mg tablet - levETIRAcetam (KEPPRA) 750 mg tablet - meclizine 25 mg Tab Take 1 tablet by mouth every 6 hours as needed (for dizziness.). Problem List As Of Date 09/20/2024 Noted Resolved Glaucoma, 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] 04/12/2013 Medications Discontinued During This Encounter Prescriptions - carvedilol (COREG) 25 mg tablet (Discontinued) Reported on 06/14/2024 - brinzolamide (AZOPT) 1 % ophthalmic suspension (Discontinued) Reported on 06/14/2024 - Brimonidine-Timolol (COMBIGAN) 0.2-0.5 % Drop (Discontinued) Reported on 06/14/2024 - acetaminophen 325 mg tablet (Discontinued) Reported on 06/14/2024 - Bimatoprost (LUMIGAN) 0.01 % Drop (Discontinued) Reported on 06/14/2024 - multivitamin tablet (Discontinued) Reported on 06/14/2024 - pantoprazole DR (PROTONIX) 40 mg tablet (Discontinued) Reported on 06/14/2024 - phenytoin SR (DILANTIN) 100 mg ER capsule (Discontinued) Reported on 06/14/2024 - ramipril (ALTACE) 10 mg ca (more content not included)... Normal [facility] Emergency Department Summary on 09-20-2024 Emergency Department Summary [facility] Medical Records Department [address] [place] [address] Emergency Department Summary 09/20/24 MR#: [id number] Acct: [id number] Name: ARYAN VALLE Rep #: [id number] : 1970 54 From: Dung Christine DO PCP: Dr. Tana Farmer MD Status:REG ER Location: ED [facility] History of Present Illness Chief Complaint: Male Pain/Injury Pain Onset: Weeks (1) Context: Gradual Onset Timing: Continuous Worsened by: Walking, coughing Relieved by: Nothing Urinary Symptoms Genitourinary Symptoms: No Symptoms Narrative Narrative: Patient presents with left inguinal pain that has been getting worse over the past week. Patient describes her pain as burning and dull. Patient states it is over the left inguinal area. Patient states it is worse with walking. Patient states nothing seems to help with it. Patient denies any fevers or chills. Patient admits to some nausea and vomiting. Patient states his pain is also worse with coughing. Patient is concerned that he has a hernia. Patient denies any dysuria or hematuria. Patient denies any urinary frequency. [facility] Medical History Dark urine Elevated CA 19-9 level Dermatitis Hypothyroidism Decreased urination Erectile dysfunction Change in bowel habits Nausea vomiting Swallowing problem Abdominal pain Thrombocytopenia Alcoholic hepatitis Obesity (BMI 30.0-34.9) Abnormal thyroid function test Venous insufficiency of both lower extremities Back pain Limb weakness Balance problem Knee pain Diarrhea Chest pain Neuropathy of both feet Fracture, ribs Brain atrophy History of alcohol abuse Arthritis Seizures Glaucoma Hypertension Hyperlipemia Home Medications ???Medication ???Instructions ???Recorded ???Last Taken ???Type compress.stocking,knee,r eg,lrg #2 ea 09/18/21 Unknown Rx lidocaine 5 % topical patch 1 patch topical DAILY PRN rib pain 07/10/22 Unknown Rx #30 ea meclizine 25 mg tablet 25 mg PO BID PRN for dizziness #60 02/15/24 Unknown Rx (Travel-Ease (meclizine)) TABLETS alpha lipoic acid 600 mg capsule 600 mg PO TID #120 caps 06/24/24 Unknown Rx furosemide 20 mg tablet 20 mg PO BIDLX 120 days #180 tabs 06/24/24 Unknown Rx lactulose 10 gram/15 mL (15 mL) 10 g (15 mL) PO BID potassium 3 06/24/24 Unknown Rx oral solution months #2,700 mL spironolactone 25 mg tablet 25 mg PO BID #180 TABLETS 06/24/24 Unknown Rx compress.stocking,knee,r eg,lrg #2 ea 07/01/24 Unknown Rx gabapentin 600 mg tablet 600 mg PO BID pain #60 tabs 08/04/24 Unknown Rx levetiracetam 1,000 mg tablet 1,000 mg PO BID ? #180 tabs 08/04/24 Unknown Rx levothyroxine 50 mcg tablet 50 mcg PO DAILY thyroid #90 tabs 08/04/24 Unknown Rx Allergy/AdvReac Type Severity Reaction Status Date / Time No Known Allergies Allergy Verified 09/20/24 11:31 Family History Father Alcoholism Heart disease Myocardial infarction Mother Arthritis Sister Depression Grandfather Myocardial infarction Grandfather CVA (cerebral vascular accident) Surgical History History of surgical procedure on eye proper using laser History of bilateral hip replacements History of tonsillectomy Social History Smoking Status: Never smoker Smokeless tobacco user: chewing tobacco Electronic Cigarette Use: not used second hand exposure: Yes alcohol intake: current alcohol intake frequency: 3 or more drinks per day Alcohol type: beer details: 4-6 beers a day substance use type: does not use what type of physical activity do you participate in: walking frequency: daily ROS ROS ED Constitutional Constitutional ED: Denies chills or fever(s) Eyes Eyes: Denies blurry vision or change in vision ENT ENT ED: Denies rhinorrhea or sore throat Cardiovascular Cardiovascular: Denies chest pain or palpitations Respiratory/Chest Respiratory/Chest: Reports cough; Denies dyspnea Gastrointestinal Gastrointestinal: Reports nausea and vomiting Genitourinary Genitourinary ED: Denies dysuria or hematuria Musculoskeletal Musculoskeletal: Denies back pain or neck pain Integumentary Reports rash; Denies abscess Neurologic Neurologic: Denies headache(s) or weakness Allergic/Immunologic Allergic/Immunologic ED: Denies mouth swelling or urticaria EXAM Physical Exam Const Vital Signs: 09/20/24 11:32 09/20/24 13:02 09/20/24 14:47 Temperature 97.8 F Temperature Source Temporal Pulse Rate 86 81 81 Respiratory Rate 16 16 12 Blood Pressure 123/75 H 131/76 H 135/76 H Blood Pressure Mean 91 94 95 Pulse Ox 98 98 98 Oxygen Delivery Method Room Air Room Air (more content not included)... Normal [facility] Lipaseon 09-20-2024 Lipase [Catalytic activity/Vol] 63 U/L Normal 13-75 [facility] Comment on above: Result Comment: Lena castellano note: LIPASE revised reference range effective 23. New Lipase methodology. Expected to produce lower values than the previous assay method. NEW Reference Range: 13 - 75 U/L Performed By: #### L 300.3900, L500.2500, L501.2450, L300.4310 ####[facility] [address] [place], [address] Partial Thromboplast Timeon 09-20-2024 aPTT Coag (Bld) [Time] 42.7 s High 24.1-36.2 [facility] Comment on above: Performed By: #### L 300.3900, L500.2500, L501.2450, L300.4310 ####[facility] [address] [place], [address] Prothrombin Time w/INRon INR Coag (PPP) [Relative time] 1.7 {INR} Normal [facility] Comment on above: Performed By: #### L 300.3900, L500.2500, L501.2450, L300.4310 ####[facility] [address] [place], [address] PT Coag (PPP) [Time] 20.3 s High 11.7-14.9 [facility] Comment on above: Performed By: #### L 300.3900, L500.2500, L501.2450, L300.4310 ####[facility] [address] [place], [address] Urinalysis, Completeon 09-20 BACTERIA 1+ /hpf Normal None Seen [facility] Comment on above: Order Comment: CLEAN CATCH Performed By: #### L 400.0001 ####[facility] [address] [place], [address] EPI,SQUAMOUS 0 SEEN Normal 0-5 [facility] Comment on above: Order Comment: CLEAN CATCH Performed By: #### L 400.0001 ####[facility] [address] [place], [address] Mucus Ql (Urine sed) 0 SEEN Normal [facility] Comment on above: Order Comment: CLEAN CATCH Performed By: #### L 400.0001 ####[facility] [address] [place], [address] RBC 0 SEEN Normal 0-5 [facility] Comment on above: Order Comment: CLEAN CATCH Performed By: #### L 400.0001 ####[facility] [address] [place], [address] WBC 0 SEEN Normal 0-5 [facility] Comment on above: Order Comment: CLEAN CATCH Performed By: #### L 400.0001 ####[facility] [address] [place], [address] CBC W/Diff, Automatedon 08 SMEAR COMMENT SCANNED Normal [facility] Comment on above: Result Comment: THRO MBOCYTOPENIA NOTED Performed By: #### L 100.0100, L501.9520, L500.4050 ####[facility] [address] [place], [address] Comprehensive Metabolic Prof ilon 06-24-2024 Albumin [Mass/Vol] 2.7 g/dL Low 3.2-5.0 [facility] Comment on above: Performed By: #### L 100.0100, L501.9520, L500.4050 ####[facility] [address] [place], [address] Albumin/Globulin [Mass ratio] 0.6 {ratio} Low 0.9-2.4 [facility] Comment on above: Performed By: #### L 100.0100, L501.9520, L500.4050 ####[facility] [address] [place], [address] ALK P 217 U/L High 45-117 [facility] Comment on above: Performed By: #### L 100.0100, L501.9520, L500.4050 ####[facility] [address] [place], [address] ALT [Catalytic activity/Vol] 53 U/L Normal 16-61 [facility] Comment on above: Performed By: #### L 100.0100, L501.9520, L500.4050 ####[facility] [address] [place], [address] AST [Catalytic activity/Vol] 109 U/L High 15-37 [facility] Comment on above: Performed By: #### L 100.0100, L501.9520, L500.4050 ####[facility] [address] [place], [address] Bilirubin [Mass/Vol] 7.50 mg/dL High 0.20-1.00 [facility] Comment on above: Result Comment: For patients on eltrombopag therapy, use of Dimension [place] TBIL is not recommended. Performed By: #### L 100.0100, L501.9520, L500.4050 ####[facility] [address] [place], [address] BUN/CRE 4.2 RATIO Low 10-20 [facility] Comment on above: Performed By: #### L 100.0100, L501.9520, L500.4050 ####[facility] [address] [place], [address] CA,Total 9.1 mg/dL Normal 8.5-10.1 [facility] Comment on above: Performed By: #### L 100.0100, L501.9520, L500.4050 ####[facility] [address] [place], [address] Chloride [Moles/Vol] 106 mmol/L Normal 98-107 [facility] Comment on above: Performed By: #### L 100.0100, L501.9520, L500.4050 ####[facility] [address] [place], [address] CO2 [Moles/Vol] 27.0 mmol/L Normal 21.0-32.0 [facility] Comment on above: Performed By: #### L 100.0100, L501.9520, L500.4050 ####[facility] [address] [place], [address] Creatinine [Mass/Vol] 0.72 mg/dL Normal 0.70-1.30 [facility] Comment on above: Result Comment: The validity of the calculated GFR GFRAA in patients over 70 years has not been determined. Clinical correlation is essential. Performed By: #### L 100.0100, L501.9520, L500.4050 ####[facility] [address] [place], [address] EST GFR - AA 147 mL/min Normal >60 [facility] Comment on above: Result Comment: Afri can Citizen [place] GFR Calc Performed By: #### L 100.0100, L501.9520, L500.4050 ####[facility] [address] [place], [address] GAP 5 Normal 5-15 [facility] Comment on above: Performed By: #### L 100.0100, L501.9520, L500.4050 ####[facility] [address] [place], [address] GFR/1.73 sq M.predicted among non-blacks MDRD (S/P/Bld) [Vol rate/Area] 122 mL/min/{1.73_m2} Normal >60 [facility] Comment on above: Result Comment: Non- GFR Calc Performed By: #### L 100.0100, L501.9520, L500.4050 ####[facility] [address] [place], [address] Globulin (S) [Mass/Vol] 4.5 g/dL High 2.2-4.2 [facility] Comment on above: Performed By: #### L 100.0100, L501.9520, L500.4050 ####[facility] [address] [place], [address] Glucose [Mass/Vol] 112 mg/dL High 74-106 [facility] Comment on above: Result Comment: Fast ing Glucose result from 100 to 125 mg/dL suggests IMPAIRED HOMEOSTASIS per A.D.A. criteria. Performed By: #### L 100.0100, L501.9520, L500.4050 ####[facility] [address] [place], [address] Potassium [Moles/Vol] 4.0 mmol/L Normal 3.5-5.1 [facility] Comment on above: Performed By: #### L 100.0100, L501.9520, L500.4050 ####[facility] [address] [place], [address] Sodium [Moles/Vol] 138 mmol/L Normal 136-145 [facility] Comment on above: Performed By: #### L 100.0100, L501.9520, L500.4050 ####[facility] [address] [place], [address] T PROT 7.2 g/dL Normal 6.4-8.2 [facility] Comment on above: Performed By: #### L 100.0100, L501.9520, L500.4050 ####[facility] [address] [place], [address] Urea nitrogen [Mass/Vol] 3 mg/dL Low 7-18 [facility] Comment on above: Performed By: #### L 100.0100, L501.9520, L500.4050 ####[facility] [address] [place], [address] Internal Medicine Office Vis iton 06-24-2024 Internal Medicine Office Visit [facility] [address] [place] [address] [place] [address] OFFICE VISIT Date of Service: 06/24/24 MR#: [id number] Acct: [id number] Name: ARYAN VALLE Rep #: [id number] : 1970 Provider: Dr. Tana lobo MD Age/Sex: 54/M Location: [facility] Status: Signed Intake Vital Signs 01/04/24 10:15 06/24/24 10:19 Height 6 ft 6 ft Weight: 221 lb BMI 29.9 BP 108/72 Blood Pressure Location Lt brachial Position Sitting Respiration 16 Pulse 80 Pulse Source Monitor Temp 98.5 F Temp Source Temporal Pulse Oximetry (%) 97 Oxygen Delivery Method room air Intake Visit Reasons: FOLLOW UP Chief Complaint: FOLLOW UP Is patient in pain?: Yes (GENERALIZED ) Pain scale (1-10): 8 Allergies No Known Allergies Allergy (Verified 06/24/24 10:11) Medications ???Medication ???Instructions ???Recorded ???Confirmed ???Type compress.stocking,knee,r eg,lrg #2 ea 09/18/21 01/04/24 Rx lidocaine 5 % topical patch 1 patch topical DAILY PRN rib pain 07/10/22 06/24/24 Rx #30 ea meclizine 25 mg tablet 25 mg PO BID PRN for dizziness #60 02/15/24 06/24/24 Rx (Travel-Ease (meclizine)) TABLETS levothyroxine 50 mcg tablet 50 mcg PO DAILY thyroid #60 tabs 03/21/24 06/24/24 Rx gabapentin 600 mg tablet 600 mg PO BID pain #60 tabs 06/21/24 06/24/24 Rx levetiracetam 1,000 mg tablet 1,000 mg PO BID ? #60 tabs 06/21/24 06/24/24 Rx alpha lipoic acid 600 mg capsule 600 mg PO TID #120 caps 06/24/24 06/24/24 Rx furosemide 20 mg tablet 20 mg PO BIDLX 120 days #180 tabs 06/24/24 06/24/24 Rx lactulose 10 gram/15 mL (15 mL) 10 g (15 mL) PO BID potassium 3 06/24/24 06/24/24 Rx oral solution months #2,700 mL spironolactone 25 mg tablet 25 mg PO BID #180 TABLETS 06/24/24 06/24/24 Rx Nurse's Note: PATIENT REPORTS THAT RIGHT GREAT TOE TOENAIL IS GROWING ODDLY AND WILL NEED TO CHANGE SCHEDULED APPOINTMENT WITH PODIATRY DUE TO WORK SCHEDULE CONFLICT. WOULD LIKE IT TO BE LOOKED AT TODAY. [facility] Medical History (Updated 06/24/24 @ 10:[address] Tana Farmer MD) Dark urine Elevated CA 19-9 level Dermatitis Hypothyroidism Decreased urination Erectile dysfunction Change in bowel habits Nausea vomiting Swallowing problem Abdominal pain Thrombocytopenia Alcoholic hepatitis Obesity (BMI 30.0-34.9) Abnormal thyroid function test Venous insufficiency of both lower extremities Back pain Limb weakness Balance problem Knee pain Diarrhea Chest pain Neuropathy of both feet Fracture, ribs Brain atrophy History of alcohol abuse Arthritis Seizures Glaucoma Hypertension Hyperlipemia Surgical History History of surgical procedure on eye proper using laser History of bilateral hip replacements History of tonsillectomy Family History Father Alcoholism Heart disease Myocardial infarction Mother Arthritis Sister Depression Grandfather Myocardial infarction Grandfather CVA (cerebral vascular accident) Social History Smoking Status: Never smoker Smokeless tobacco user: chewing tobacco Electronic Cigarette Use: not used second hand exposure: Yes alcohol intake: current alcohol intake frequency: 3 or more drinks per day Alcohol type: beer details: 4-6 beers a day substance use type: does not use what type of physical activity do you participate in: walking frequency: daily HPI HPI Chief Complaint: FOLLOW UP Details: ARYAN VALLE, is a 54 M who presents to the office today for follow-up of his chronic medical conditions. History of alcoholic hepatitis/cirrhosis. Has not seen GI since his last hospital stay. He states that he has been taking his medications as prescribed. Continues to drink alcohol ranging from 1 beer to 3 beers a day. He states that he drinks Gatorade daily but not as much water. Has noted darker colored urine lately. No other concerns with urination reported. Other chronic medical conditions are largely stable. No recent seizure episodes. Chronic neuropathy for which he is on gabapentin and alpha lipoid acid, he would like a refill. ROS Const Constitutional: Positive for other (GOING TO PODIATRY FOR RIGHT GREAT TOE; NAIL GROWS ODDLY D/T ACCIDENT YRS AG); No body ache, chills, excessive sweating, fatigue, fever(s), frequent falls, headache(s), snoring, weakness, sleep problems or change in appetite Eyes Eyes: No blurry vision, change in vision, bulging eyes, floaters, visual disturbances or Light sensitivity ENT ENT: No abnormal hearing, ear or mastoid pain, tinnitus, nosebleed/epistaxis, nasal congestion, nasal discharge, headache(s), neck pain or sore throat Resp Respiratory: No cough, excessive phlegm production, p (more content not included)... Normal [facility] Thyroid Stim Hormone (TSH)on 06-24-2024 TSH 4.57 uIU/mL High 0.358-3.74 [facility] Comment on above: Performed By: #### L 100.0100, L501.9520, L500.4050 ####[facility] [address] [place], [address] Office Visit Reporton 2023 Office Visit Report [facility] [address] [place] [address] OFFICE VISIT Date of Service: 06/02/24 MR#: [id number] Acct: [id number] Patient: ARYAN VALLE Rep #: [id number] : 1970 Provider: MEGHNA Jerez Age/Sex: 54/M Location: [facility] Status: Signed Intake Vital Signs 01/04/24 10:15 Height 6 ft Weight: 219 lb BMI 29.7 BP 124/60 H Blood Pressure Location Lt brachial Position Sitting Respiration 16 Pulse 80 Pulse Source Monitor Temp 97.7 F L Temp Source Temporal Pulse Oximetry (%) 98 Oxygen Delivery Method room air Intake Visit Reasons: 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 Allergies No Known Allergies Allergy (Verified 01/04/24 10:14) Office Procedures [facility] Billing Sheet Testing Breath Alcohol in [facility]: Yes Pre-Employment Drug Screen: Yes 06/23/24 0840 Date Joseph Guerrero Signature: (if applicable) CC: Normal [facility] 06-14-2024 [facility] Office Visit (UCWSTR ) -------- ARYAN VALLE ([id number]) 1970 M Date Time Provider Department 06/14/24 9:15 AM ALISHA LAGOS [facility] During your visit today, we recorded the following information about you: Temperature Pulse Respiration Blood pressure 98 degrees 79/minute 20/minute 120/80 Weight 102 kg Alisha Lagos APRN.ARMATURE CONNECTOR 06/14/2024 10:00 AM Signed Subjective Patient came in with complaints of right great toe pain. Patient says he noticed some redness. Patient denies any fever chills nausea vomiting. The history is provided by the patient. No jewel oliving machine operator was used. Pain (foot) Review of Systems Constitutional: Negative. Skin: Negative. Objective Physical Exam Constitutional: Appearance: Normal appearance. Pulmonary: Effort: Pulmonary effort is normal. Musculoskeletal: Feet: Feet: Comments: Redness located where purple as marked above. Patient also does have severely fungus to toenails that is growing almost straight up. No signs of pus or drainage. Neurological: Mental Status: He is alert. PAST MEDICAL HISTORY Diagnosis Date ETOH abuse 12 beers per day Seizures (HCC) controlled on dilantin Vertigo uses mecliznie daily PAST SURGICAL HISTORY Procedure Laterality Date PAST SURGICAL HISTORY OF 2007 total hip replacement TONSILLECTOMY HX remote ALLERGIES Patient has no known allergies. MEDICATIONS furosemide (LASIX) 20 mg tablet Take 20 mg by mouth two times a day. spironolactone (ALDACTONE) 25 mg tablet Take 25 mg by mouth once daily. gabapentin (NEURONTIN) 600 mg tablet Take 1 tablet by mouth every 12 hours 6am/6pm. levothyroxine (SYNTHROID) 25 mcg tablet Take 1 tablet by mouth every afternoon. levETIRAcetam (KEPPRA) 1,000 mg tablet TAKE 1 TABLET orally twice a day] ibuprofen (MOTRIN) 600 mg tablet meclizine 25 mg Tab Take 1 tablet by mouth every 6 hours as needed (for dizziness.). doxycycline monohydrate 100 mg tablet Take 1 tablet by mouth two times a day for 7 days. carvedilol (COREG) 25 mg tablet (Patient not taking: Reported on 06/14/2024) levETIRAcetam (KEPPRA) 750 mg tablet (Patient not taking: Reported on 06/14/2024) pantoprazole DR (PROTONIX) 40 mg tablet (Patient not taking: Reported on 06/14/2024) ramipril (ALTACE) 10 mg capsule (Patient not taking: Reported on 06/11/2023) Bimatoprost (LUMIGAN) 0.01 % Drop 1 Drop. (Patient not taking: Reported on 06/14/2024) brinzolamide (AZOPT) 1 % ophthalmic suspension 1 Drop three times daily. (Patient not taking: Reported on 06/14/2024) Brimonidine-Timolol (COMBIGAN) 0.2-0.5 % Drop Use in both eyes. (Patient not taking: Reported on 06/14/2024) phenytoin SR (DILANTIN) 100 mg ER capsule Take 1 capsule by mouth three times daily. (Patient not taking: Reported on 06/14/2024) acetaminophen 325 mg tablet Take 1-2 tablets by mouth every 4 hours as needed for Pain. (Patient not taking: Reported on 06/14/2024) multivitamin tablet Take 1 tablet by mouth once daily. (Patient not taking: Reported on 06/14/2024) FAMILY HISTORY Problem Relation Age of Onset Arthritis Father Arthritis Brother Social History Tobacco Use Smoking status: Never Substance Use Topics Alcohol use: Yes Comment: daily, 12 beer a day, history of rehab Drug use: No ASSESSMENT/PLAN: 1. Skin infection - ICD9: 686.9, ICD10: L08.9 (primary diagnosis) - DOXYCYCLINE MONOHYDRATE 100 MG TABLET 2. Pain - ICD9: 780.96, ICD10: R52 - CONSULT TO PODIATRY Was set up with an appt. Educated about proper use of medication supportive therapies. Red flag symptoms were discussed. Patient will follow-up with signs and symptoms seem to be getting worse. Alisha Lagos APRN.ARMATURE CONNECTOR Allergies As of Date: 06/14/2024 (No Known Allergies) Date Reviewed: 06/14/2024 Reviewed by: Thalia Amos LPN - Fully Assessed Reason for Visit: Pain (foot) [760] Cmt: R great toe, pain x 1 days Primary Visit Diagnosis:Skin infection [L08.9] Other Visit Diagnosis:Pain [R52] Order(s):doxycycline monohydrate 100 mg tabletTake 1 tablet by mouth two times a day for 7 days.Disp: 14 tabletRfl: 0 CONSULT TO PODIATRY [9034] Order #: [id number]: 1 FUTURE Prescriptions as of 06/14/2024 - furosemide (LASIX) 20 mg tablet Take 20 mg by mouth two times a day. - spironolactone (ALDACTONE) 25 mg tablet Take 25 mg by mouth once daily. - doxycycline monohydrate 100 mg tablet Take 1 tablet by mouth two times a day for 7 days. - gabapentin (NEURONTIN) 600 mg tablet Take 1 tablet by mouth every 12 hours 6am/6pm. - levothyroxine (SYNTHROID) 25 mcg tablet Take 1 tablet by mouth every afternoon. - levETIRAcetam (KEPPRA) 1,000 mg tablet TAKE 1 TABLET orally twice a day] - carvedilol (COREG) 25 mg tablet - ibuprofen (MOTRIN) 600 mg tablet - levETIRAcetam (KEPPRA) 750 mg tablet - pantoprazole DR (PROTONIX) 40 mg tablet - ramipril (ALTACE) 1 (more content not included)... Normal [facility] Urgent Care Visit Reporton 0 06-02-2024 Urgent Care Visit Report [facility] [address], [address] [place] [address] OFFICE VISIT Date of Service: 06/02/24 MR#: [id number] Acct: [id number] Name: ARYAN VALLE Rep #: [id number] : 1970 Provider: MEGHNA Jerez Age/Sex: 54/M Location: [facility] Status: Signed Intake Vital Signs 01/04/24 10:15 Height 6 ft Weight: 219 lb BMI 29.7 BP 124/60 H Blood Pressure Location Lt brachial Position Sitting Respiration 16 Pulse 80 Pulse Source Monitor Temp 97.7 F L Temp Source Temporal Pulse Oximetry (%) 98 Oxygen Delivery Method room air Intake Visit Reasons: PE 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 Allergies No Known Allergies Allergy (Verified 01/04/24 10:14) [facility] Medical History (Updated 06/02/24 @ 16:56 by Joseph COFFMAN, PA) Elevated CA 19-9 level Dermatitis Hypothyroidism Decreased urination Erectile dysfunction Change in bowel habits Nausea vomiting Swallowing problem Abdominal pain Thrombocytopenia Alcoholic hepatitis Obesity (BMI 30.0-34.9) Abnormal thyroid function test Venous insufficiency of both lower extremities Back pain Limb weakness Balance problem Knee pain Diarrhea Chest pain Neuropathy of both feet Fracture, ribs Brain atrophy History of alcohol abuse Arthritis Seizures Glaucoma Hypertension Hyperlipemia Surgical History History of surgical procedure on eye proper using laser History of bilateral hip replacements History of tonsillectomy Family History Father Alcoholism Heart disease Myocardial infarction Mother Arthritis Sister Depression Grandfather Myocardial infarction Grandfather CVA (cerebral vascular accident) Social History Smoking Status: Never smoker Smokeless tobacco user: chewing tobacco Electronic Cigarette Use: not used second hand exposure: Yes alcohol intake: current alcohol intake frequency: 3 or more drinks per day Alcohol type: beer details: 4-6 beers a day substance use type: does not use what type of physical activity do you participate in: walking frequency: daily HPI HPI Chief Complaint: follow up chronic condition. Details: ARYAN VALLE, is a 54 M who presents to the office today for preemployment physical. Please see corresponding scanned documents with today's date. Office Procedures Physical Exam Coding PE Coding Pre-employment PE: Yes Coding Level of Care Code No Charge Diagnoses Encounter for pre-employment health screening examination Z02.1 Assessment and Plan Assessment and Plan (1) Encounter for pre-employment health screening examination: Status: Acute 06/02/[id number] Date Joseph Guerrero Signature: Date (if applicable) CC: Normal [facility] Absolute lymphocyte countOrd ered By: Tana Farmer on 01-04-2024 Lymphocytes Auto (Unsp spec) [#/Vol] 1.02 10*3/uL 0.83-4.51 [facility] Automated lymphocyte count a s percentage of total leukocytesOrdered By: Tana Farmer on 01-04-2024 Lymphocytes/100 WBC Auto (Unsp spec) 21.7 % 19-41 [facility] Basophil percentageOrdered B y: Tana Farmer on 01-04-2024 Basophils/100 WBC (Bld) 0.6 % 0-1 [facility] Bilirubin [Mass/Vol] 6.20 mg/dL 0.20-1.00 [facility] Comment on above: For patients on eltr ombopag therapy, use of Dimension [place] TBIL is not recommended. Chloride [Moles/Vol] 104 mmol/L 98-107 [facility] Eosinophils/100 WBC (Bld) 2.6 % 0-5 [facility] Glucose [Mass/Vol] 96 mg/dL 74-106 [facility] Hemoglobin (Bld) [Mass/Vol] 13.6 g/dL 13.0-16.5 [facility] Monocytes/100 WBC (Bld) 9.8 % 0-10 [facility] Neutrophils (Bld) [#/Vol] 3.1 10*3/uL 2.0-7.7 [facility] Neutrophils/100 WBC (Bld) 64.9 % 47-70 [facility] Potassium [Moles/Vol] 4.0 mmol/L 3.5-5.1 [facility] Protein [Mass/Vol] 7.2 g/dL 6.4-8.2 [facility] Sodium [Moles/Vol] 136 mmol/L 136-145 [facility] WBC (Bld) [#/Vol] 4.7 10*3/uL 4.4-11.0 [facility] Determination of erythrocyte mean corpuscular volume (MCV)Ordered By: Tana Farmer on 01-04-2024 MCV (RBC) [Entitic vol] 104.2 fL 80-94 [facility] Erythrocyte distribution wid th ratioOrdered By: [facility] [place] on 01-04-2024 Erythrocyte distribution width (RBC) [Ratio] 14.6 % 11.6-14.6 [facility] Erythrocyte distribution wid th standard deviationOrdered By: [facility] [place] on 01-04-2024 Erythrocyte distribution width (RBC) [Entitic vol] 56.4 fL 35.1-43.9 [facility] Hematocrit Auto (Bld) [Volum e fraction]Ordered By: [facility] [place] on 01-04-2024 Hematocrit (Bld) [Volume fraction] 39.3 % 40-54 [facility] Immature granulocytes/100 WB C Auto (Bld)Ordered By: [facility] [place] on 01-04-2024 Immature granulocytes/100 WBC (Bld) 0.400 % 0.0-0.9 [facility] Comment on above: IG% - Immature Granu locytes (promyelocytes, myelocytes and metamyelocytes) > 1% indicates that a LEFT SHIFT is Present. Laboratory - Chemistry and C hemistry - challengeOrdered By: Tana Farmer on 01-04-2024 Albumin/Globulin [Mass ratio] 0.7 {ratio} 0.9-2.4 [facility] ALP [Catalytic activity/Vol] 208 U/L 45-117 [facility] ALT [Catalytic activity/Vol] 45 U/L 16-61 [facility] CO2 [Moles/Vol] 26.0 mmol/L 21.0-32.0 [facility] Globulin (S) [Mass/Vol] 4.2 g/dL 2.2-4.2 [facility] Urea nitrogen/Creatinine [Mass ratio] 5.8 mg/mg 10-20 [facility] Laboratory - Hematology and Cell countsOrdered By: Tana Farmer on 01-04-2024 MCH (RBC) [Entitic mass] 36.1 pg 27.0-32.0 [facility] MCHC (RBC) [Mass/Vol] 34.6 g/dL 32-36 [facility] Nucleated RBC/100 WBC (Bld) [Ratio] 0 % 0-5 [facility] Platelet mean volume (Bld) [Entitic vol] 9.3 fL 6.2-12.0 [facility] Platelets (Bld) [#/Vol] 120 10*3/uL 150-450 [facility] No Panel InformationOrdered By: Tana Farmer on 01-04-2024 Estimated GFR (MDRD) Amer 155 mL/min >60 [facility] Comment on above: GFR Calc Estimated GFR (MDRD) Non-Af Amer 128 mL/min >60 [facility] Comment on above: Non- GFR Calc RBC Auto (Bld) [#/Vol]Ordere d By: Tana Farmer on 01-04-2024 RBC (Bld) [#/Vol] 3.77 10*6/uL 4.6-6.2 [facility] Serum or plasma calcium nadja urement (mass/volume)Ordered By: Tana Farmer on 01-04-2024 Calcium [Mass/Vol] 9.4 mg/dL 8.5-10.1 [facility] Serum or plasma creatinine m easurement (mass/volume)Ordered By: Tana Farmer on 01-04-2024 Creatinine [Mass/Vol] 0.69 mg/dL 0.70-1.30 [facility] Comment on above: The validity of the calculated GFR & GFRAA in patients over 70 years has not been determined. Clinical correlation is essential. Serum or plasma thyroid stim ulating hormone (TSH) measurement (units/volume)Ordered By: Tana Farmer on 01-04-2024 TSH Qn 7.39 uIU/mL 0.358-3.74 [facility] Serum or plasma urea nitroge n measurement (mass/volume)Ordered By: Tana Farmer on 01-04-2024 Urea nitrogen [Mass/Vol] 4 mg/dL 7-18 [facility] Thin prep Papanicolaou smear with manual screeningOrdered By: lorrainesand pointjames Farmer on 01-04-2024 Thin prep Papanicolaou smear with manual screening 3.0 g/dL 3.2-5.0 [facility] Thin prep Papanicolaou smear with manual screening 93 U/L 15-37 [facility] Thin prep Papanicolaou smear with manual screening 6 5-15 [facility] Absolute lymphocyte countOrd ered By: Tana Farmer on 08-26-2023 Lymphocytes Auto (Unsp spec) [#/Vol] 0.93 10*3/uL 0.83-4.51 [facility] Basophil percentageOrdered B y: Tana Farmer on 08-26-2023 Basophil percentage 113 mg/dL 74-106 [facility] Basophil percentage 7.7 g/dL 6.4-8.2 [facility] Basophil percentage 3.70 mg/dL 0.20-1.00 [facility] Basophil percentage 136 mmol/L 136-145 [facility] Basophil percentage 3.9 mmol/L 3.5-5.1 [facility] Basophil percentage 105 mmol/L 98-107 [facility] Basophil percentage 20.0 umol/L 11-32 [facility] Basophils (Bld) [#/Vol] 3.2 10*3/uL 4.4-11.0 [facility] Basophils (Bld) [#/Vol] 1.9 10*3/uL 2.0-7.7 [facility] Basophils/100 WBC (Bld) 60.4 % 47-70 [facility] Basophils/100 WBC (Bld) 2.2 % 0-5 [facility] Basophils/100 WBC (Bld) 0.9 % 0-1 [facility] Blood erythrocytes count (nu mber/volume)Ordered By: Tana Farmer on 08-26-2023 RBC (Bld) [#/Vol] 3.40 10*6/uL 4.6-6.2 [facility] Blood hemoglobin measurement (mass/volume)Ordered By: Tana Farmer on 08-26-2023 Hemoglobin (Bld) [Mass/Vol] 12.3 g/dL 13.0-16.5 [facility] Blood lymphocytes/100 leukoc ytesOrdered By: Tana Farmer on 08-26-2023 Lymphocytes/100 WBC (Bld) 29.0 % 19-41 [facility] Blood monocytes/100 leukocyt esOrdered By: Tana Farmer on 08-26-2023 Monocytes/100 WBC (Bld) 7.2 % 0-10 [facility] Blood platelet mean volumeOr dered By: Tana Farmer on 08-26-2023 Platelet mean volume (Bld) [Entitic vol] 9.4 fL 6.2-12.0 [facility] Determination of erythrocyte mean corpuscular volume (MCV)Ordered By: Tana Farmer on 08-26-2023 MCV (RBC) [Entitic vol] 105.3 fL 80-94 [facility] Hematocrit Auto (Bld) [Volum e fraction]Ordered By: Tana Farmer on 08-26-2023 Hematocrit (Bld) [Volume fraction] 35.8 % 40-54 [facility] MCHC Auto (RBC) [Mass/Vol]Or dered By: Tana Farmer on 08-26-2023 MCHC (RBC) [Mass/Vol] 34.4 g/dL 32-36 [facility] No Panel InformationOrdered By: Tana Farmer on 08-26-2023 36.2 pg 27.0-32.0 [facility] 13.4 % 11.6-14.6 [facility] 51.8 fl 35.1-43.9 [facility] 0.300 % 0.0-0.9 [facility] 0 % 0-5 [facility] 127 mL/min >60 [facility] 154 mL/min >60 [facility] 7.2 RATIO 10-20 [facility] 4.7 g/dL 2.2-4.2 [facility] 189 U/L 45-117 [facility] 55 U/L 16-61 [facility] 26.0 mmol/L 21.0-32.0 [facility] Platelets bldOrdered By: Mack Farmer on 08-26-2023 Platelets (Bld) [#/Vol] 107 10*3/uL 150-450 [facility] Serum or plasma albumin nadja urement (mass/volume)Ordered By: Tana Farmer on 08-26-2023 Albumin [Mass/Vol] 3.0 g/dL 3.2-5.0 [facility] Serum or plasma albumin/glob ulin mass ratioOrdered By: Tana Farmer on 08-26-2023 Albumin/Globulin [Mass ratio] 0.6 {ratio} 0.9-2.4 [facility] Serum or plasma calcium nadja urement (mass/volume)Ordered By: Tana Farmer on 08-26-2023 Calcium [Mass/Vol] 8.8 mg/dL 8.5-10.1 [facility] Serum or plasma creatinine m easurement (mass/volume)Ordered By: Tana Farmer on 08-26-2023 Creatinine [Mass/Vol] 0.69 mg/dL 0.70-1.30 [facility] Serum or plasma urea nitroge n measurement (mass/volume)Ordered By: Tana Farmer on 08-26-2023 Urea nitrogen [Mass/Vol] 5 mg/dL 7-18 [facility] Thin prep Papanicolaou smear with manual screeningOrdered By: Tana Farmer on 08-26-2023 Thin prep Papanicolaou smear with manual screening 107 U/L 15-37 [facility] Thin prep Papanicolaou smear with manual screening 5 5-15 [facility] Absolute lymphocyte countOrd ered By: Tana Farmer on 07-30-2023 Lymphocytes Auto (Unsp spec) [#/Vol] 0.88 10*3/uL 0.83-4.51 [facility] Basophil percentageOrdered B y: Tana Farmer on 07-30-2023 Ammonia (P) [Moles/Vol] 27.0 umol/L 11-32 [facility] Basophil percentage 110 mg/dL 74-106 [facility] Basophil percentage 7.6 g/dL 6.4-8.2 [facility] Basophil percentage 6.90 mg/dL 0.20-1.00 [facility] Basophil percentage 136 mmol/L 136-145 [facility] Basophil percentage 4.3 mmol/L 3.5-5.1 [facility] Basophil percentage 102 mmol/L 98-107 [facility] Basophil percentage 27.0 umol/L 11-32 [facility] Basophils (Bld) [#/Vol] 4.7 10*3/uL 4.4-11.0 [facility] Basophils (Bld) [#/Vol] 3.4 10*3/uL 2.0-7.7 [facility] Basophils/100 WBC (Bld) 0.6 % 0-1 [facility] Basophils/100 WBC (Bld) 72.6 % 47-70 [facility] Basophils/100 WBC (Bld) 1.5 % 0-5 [facility] Bilirubin [Mass/Vol] 6.90 mg/dL 0.20-1.00 [facility] Comment on above: For patients on eltr ombopag therapy, use of Dimension [place] TBIL is not recommended. Chloride [Moles/Vol] 102 mmol/L 98-107 [facility] Eosinophils/100 WBC (Bld) 1.5 % 0-5 [facility] Glucose [Mass/Vol] 110 mg/dL 74-106 [facility] Comment on above: Fasting Glucose resu lt from 100 to 125 mg/dL suggests IMPAIRED HOMEOSTASIS per A.D.A. criteria. Neutrophils (Bld) [#/Vol] 3.4 10*3/uL 2.0-7.7 [facility] Neutrophils/100 WBC (Bld) 72.6 % 47-70 [facility] Potassium [Moles/Vol] 4.3 mmol/L 3.5-5.1 [facility] Protein [Mass/Vol] 7.6 g/dL 6.4-8.2 [facility] Sodium [Moles/Vol] 136 mmol/L 136-145 [facility] WBC (Bld) [#/Vol] 4.7 10*3/uL 4.4-11.0 [facility] Blood erythrocytes count (nu mber/volume)Ordered By: Tana Farmer on 07-30-2023 RBC (Bld) [#/Vol] 3.07 10*6/uL 4.6-6.2 [facility] Blood hemoglobin measurement (mass/volume)Ordered By: Tana Farmer on 07-30-2023 Hemoglobin (Bld) [Mass/Vol] 11.5 g/dL 13.0-16.5 [facility] Blood lymphocytes/100 leukoc ytesOrdered By: Tana Farmer on 07-30-2023 Lymphocytes/100 WBC (Bld) 18.6 % 19-41 [facility] Blood monocytes/100 leukocyt esOrdered By: Tana Farmer on 07-30-2023 Monocytes/100 WBC (Bld) 6.5 % 0-10 [facility] Blood platelet mean volumeOr dered By: Tana Farmer on 07-30-2023 Platelet mean volume (Bld) [Entitic vol] 9.6 fL 6.2-12.0 [facility] Determination of erythrocyte mean corpuscular volume (MCV)Ordered By: Tana Farmer on 07-30-2023 MCV (RBC) [Entitic vol] 109.1 fL 80-94 [facility] Hematocrit Auto (Bld) [Volum e fraction]Ordered By: Tana Farmer on 07-30-2023 Hematocrit (Bld) [Volume fraction] 33.5 % 40-54 [facility] Laboratory - Chemistry and C hemistry - challengeOrdered By: Tana Farmer on 07-30-2023 ALP [Catalytic activity/Vol] 128 U/L 45-117 [facility] ALT [Catalytic activity/Vol] 53 U/L 16-61 [facility] CO2 [Moles/Vol] 27.0 mmol/L 21.0-32.0 [facility] Globulin (S) [Mass/Vol] 4.8 g/dL 2.2-4.2 [facility] Urea nitrogen/Creatinine [Mass ratio] 5.0 mg/mg 10-20 [facility] Laboratory - Hematology and Cell countsOrdered By: Tana Farmer on 07-30-2023 Erythrocyte distribution width (RBC) [Entitic vol] 57.3 fL 35.1-43.9 [facility] Erythrocyte distribution width (RBC) [Ratio] 14.2 % 11.6-14.6 [facility] Immature granulocytes/100 WBC (Bld) 0.200 % 0.0-0.9 [facility] Comment on above: IG% - Immature Granu locytes (promyelocytes, myelocytes and metamyelocytes) > 1% indicates that a LEFT SHIFT is Present. MCH (RBC) [Entitic mass] 37.5 pg 27.0-32.0 [facility] Nucleated RBC/100 WBC (Bld) [Ratio] 0 % 0-5 [facility] MCHC Auto (RBC) [Mass/Vol]Or dered By: Tana Farmre on 07-30-2023 MCHC (RBC) [Mass/Vol] 34.3 g/dL 32-36 [facility] No Panel InformationOrdered By: Tana Farmer on 07-30-2023 Estimated GFR (MDRD) Amer 131 mL/min >60 [facility] Comment on above: GFR Calc Estimated GFR (MDRD) Non-Af Amer 108 mL/min >60 [facility] Comment on above: Non- GFR Calc Thyroid Stimulating Hormone (TSH) 6.03 uIU/mL 0.358-3.74 [facility] 37.5 pg 27.0-32.0 [facility] 14.2 % 11.6-14.6 [facility] 57.3 fl 35.1-43.9 [facility] 0.200 % 0.0-0.9 [facility] 0 % 0-5 [facility] 108 mL/min >60 [facility] 131 mL/min >60 [facility] 5.0 RATIO 10-20 [facility] 4.8 g/dL 2.2-4.2 [facility] 128 U/L 45-117 [facility] 53 U/L 16-61 [facility] 27.0 mmol/L 21.0-32.0 [facility] 6.03 uIU/mL 0.358-3.74 [facility] Platelets bldOrdered By: Mack Farmer on 07-30-2023 Platelets (Bld) [#/Vol] 125 10*3/uL 150-450 [facility] Serum or plasma albumin nadja urement (mass/volume)Ordered By: Tana Farmer on 07-30-2023 Albumin [Mass/Vol] 2.8 g/dL 3.2-5.0 [facility] Serum or plasma albumin/glob ulin mass ratioOrdered By: Tana Farmer on 07-30-2023 Albumin/Globulin [Mass ratio] 0.6 {ratio} 0.9-2.4 [facility] Serum or plasma calcium nadja urement (mass/volume)Ordered By: Tana Farmer on 07-30-2023 Calcium [Mass/Vol] 9.0 mg/dL 8.5-10.1 [facility] Serum or plasma creatinine m easurement (mass/volume)Ordered By: Tana Farmer on 07-30-2023 Creatinine [Mass/Vol] 0.80 mg/dL 0.70-1.30 [facility] Comment on above: The validity of the calculated GFR & GFRAA in patients over 70 years has not been determined. Clinical correlation is essential. Serum or plasma urea nitroge n measurement (mass/volume)Ordered By: Tana Faremr on 07-30-2023 Urea nitrogen [Mass/Vol] 4 mg/dL 7-18 [facility] Thin prep Papanicolaou smear with manual screeningOrdered By: Tana Farmer on 07-30-2023 Thin prep Papanicolaou smear with manual screening 81 U/L 15-37 [facility] Thin prep Papanicolaou smear with manual screening 7 5-15 [facility] Absolute lymphocyte countOrd ered By: Anselmo Edwards on 07-18-2023 Lymphocytes Auto (Unsp spec) [#/Vol] 0.76 10*3/uL 0.83-4.51 [facility] Basophil percentageOrdered B y: Anselmo Edwards on 07-18-2023 Basophil percentage 2.2 mg/dL 2.5-4.9 [facility] Basophil percentage 130 mg/dL 74-106 [facility] Basophil percentage 6.0 g/dL 6.4-8.2 [facility] Basophil percentage 8.70 mg/dL 0.20-1.00 [facility] Basophil percentage 137 mmol/L 136-145 [facility] Basophil percentage 3.4 mmol/L 3.5-5.1 [facility] Basophil percentage 100 mmol/L 98-107 [facility] Basophils (Bld) [#/Vol] 4.8 10*3/uL 4.4-11.0 [facility] Basophils (Bld) [#/Vol] 3.7 10*3/uL 2.0-7.7 [facility] Basophils/100 WBC (Bld) 0.0 % 0-1 [facility] Basophils/100 WBC (Bld) 76.4 % 47-70 [facility] Bilirubin [Mass/Vol] 8.70 mg/dL 0.20-1.00 [facility] Comment on above: For patients on eltr ombopag therapy, use of Dimension [place] TBIL is not recommended. Chloride [Moles/Vol] 100 mmol/L 98-107 [facility] Eosinophils/100 WBC (Bld) 0.0 % 0-5 [facility] Glucose [Mass/Vol] 130 mg/dL 74-106 [facility] Comment on above: Fasting Glucose resu lt greater than or equal to 126 mg/dL suggests DIABETES MELLITUS per A.D.A. criteria. Neutrophils (Bld) [#/Vol] 3.7 10*3/uL 2.0-7.7 [facility] Neutrophils/100 WBC (Bld) 76.4 % 47-70 [facility] Potassium [Moles/Vol] 3.4 mmol/L 3.5-5.1 [facility] Protein [Mass/Vol] 6.0 g/dL 6.4-8.2 [facility] Sodium [Moles/Vol] 137 mmol/L 136-145 [facility] WBC (Bld) [#/Vol] 4.8 10*3/uL 4.4-11.0 [facility] Blood erythrocytes count (nu mber/volume)Ordered By: Anselmo Edwards on 07-18-2023 RBC (Bld) [#/Vol] 2.65 10*6/uL 4.6-6.2 [facility] Blood hemoglobin measurement (mass/volume)Ordered By: Anselmo Edwards on 07-18-2023 Hemoglobin (Bld) [Mass/Vol] 9.9 g/dL 13.0-16.5 [facility] Blood lymphocytes/100 leukoc ytesOrdered By: Anselmo Edwards on 07-18-2023 Lymphocytes/100 WBC (Bld) 15.9 % 19-41 [facility] Blood monocytes/100 leukocyt esOrdered By: Anselmo Edwards on 07-18-2023 Monocytes/100 WBC (Bld) 7.3 % 0-10 [facility] Blood platelet mean volumeOr dered By: Anselmo Edwards on 07-18-2023 Platelet mean volume (Bld) [Entitic vol] 10.1 fL 6.2-12.0 [facility] Determination of erythrocyte mean corpuscular volume (MCV)Ordered By: Anselmo Edwards on 07-18-2023 MCV (RBC) [Entitic vol] 105.7 fL 80-94 [facility] Direct bilirubinOrdered By: Anselmo Edwards on 07-18-2023 Bilirubin.direct [Mass/Vol] 2.67 mg/dL 0.00-0.30 [facility] Hematocrit Auto (Bld) [Volum e fraction]Ordered By: Anselmo Edwards on 07-18-2023 Hematocrit (Bld) [Volume fraction] 28.0 % 40-54 [facility] Laboratory - Chemistry and C hemistry - challengeOrdered By: Anselmo Edwards on 07-18-2023 ALP [Catalytic activity/Vol] 90 U/L 45-117 [facility] ALT [Catalytic activity/Vol] 27 U/L 16-61 [facility] CO2 [Moles/Vol] 29.0 mmol/L 21.0-32.0 [facility] Globulin (S) [Mass/Vol] 3.9 g/dL 2.2-4.2 [facility] Magnesium [Mass/Vol] 1.9 mg/dL 1.6-2.6 [facility] Urea nitrogen/Creatinine [Mass ratio] 6.0 mg/mg 10-20 [facility] Laboratory - Hematology and Cell countsOrdered By: Anselmo Edwards on 07-18-2023 Erythrocyte distribution width (RBC) [Entitic vol] 54.4 fL 35.1-43.9 [facility] Erythrocyte distribution width (RBC) [Ratio] 14.0 % 11.6-14.6 [facility] Immature granulocytes/100 WBC (Bld) 0.400 % 0.0-0.9 [facility] Comment on above: IG% - Immature Granu locytes (promyelocytes, myelocytes and metamyelocytes) > 1% indicates that a LEFT SHIFT is Present. MCH (RBC) [Entitic mass] 37.4 pg 27.0-32.0 [facility] Nucleated RBC/100 WBC (Bld) [Ratio] 0 % 0-5 [facility] MCHC Auto (RBC) [Mass/Vol]Or dered By: Anselmo Edwards on 07-18-2023 MCHC (RBC) [Mass/Vol] 35.4 g/dL 32-36 [facility] No Panel InformationOrdered By: Anselmo Edwards on 07-18-2023 Estimated Creatinine Clearance Calc 141.56 ml/min [facility] Estimated GFR (MDRD) Amer 161 mL/min >60 [facility] Comment on above: GFR Calc Estimated GFR (MDRD) Non-Af Amer 133 mL/min >60 [facility] Comment on above: Non- GFR Calc 37.4 pg 27.0-32.0 [facility] 14.0 % 11.6-14.6 [facility] 54.4 fl 35.1-43.9 [facility] 0.400 % 0.0-0.9 [facility] 0 % 0-5 [facility] 133 mL/min >60 [facility] 161 mL/min >60 [facility] 141.56 ml/min [facility] 6.0 RATIO 10-20 [facility] 3.9 g/dL 2.2-4.2 [facility] 90 U/L 45-117 [facility] 27 U/L 16-61 [facility] 1.9 mg/dL 1.6-2.6 [facility] 29.0 mmol/L 21.0-32.0 [facility] Platelets bldOrdered By: Lan Edwards on 07-18-2023 Platelets (Bld) [#/Vol] 126 10*3/uL 150-450 [facility] Serum or plasma albumin nadja urement (mass/volume)Ordered By: Anselmo Edwards on 07-18-2023 Albumin [Mass/Vol] 2.1 g/dL 3.2-5.0 [facility] Serum or plasma calcium nadja urement (mass/volume)Ordered By: Anselmo Edwards on 07-18-2023 Calcium [Mass/Vol] 8.5 mg/dL 8.5-10.1 [facility] Serum or plasma creatinine m easurement (mass/volume)Ordered By: Anselmo Edwards on 07-18-2023 Creatinine [Mass/Vol] 0.67 mg/dL 0.70-1.30 [facility] Comment on above: The validity of the calculated GFR & GFRAA in patients over 70 years has not been determined. Clinical correlation is essential. Serum or plasma urea nitroge n measurement (mass/volume)Ordered By: Anselmo Edwards on 07-18-2023 Urea nitrogen [Mass/Vol] 4 mg/dL 7-18 [facility] Thin prep Papanicolaou smear with manual screeningOrdered By: Anselmo Edwards on 07-18-2023 Thin prep Papanicolaou smear with manual screening 48 U/L 15-37 [facility] Thin prep Papanicolaou smear with manual screening 8 5-15 [facility] Anaerobic cultureOrdered By: Brian Junior on 07-17-2023 Bacteria identified Anaer cx Nom (Unsp spec) No growth in 5 days. [facility] Bacteria identified Anaer cx Nom (Unsp spec) No growth in 5 days. [facility] Bacterial body fluid culture Ordered By: Brian Junior on 07-17-2023 Bacteria identified Cx Nom (Body fld) Culture exhibits no growth. [facility] Bacteria identified Cx Nom (Body fld) Culture exhibits no growth. [facility] Body fluid appearanceOrdered By: Brian Junior on 07-17-2023 Appearance (Body fld) CLEAR [facility] Body fluid color determinati onOrdered By: Brian Junior on 07-17-2023 Color (Body fld) YELLOW [facility] Body fluid leukocytes count (number/volume)Ordered By: Brian Junior on 07-17-2023 WBC (Body fld) [#/Vol] 0.131 10*3/uL [facility] Body fluid lymphocytes/100 l eukocytesOrdered By: Brian Junior on 07-17-2023 Lymphocytes/100 WBC (Body fld) 23 % [facility] Body fluid macrophage countO rdered By: Brian Junior on 07-17-2023 Macrophages (Body fld) [#/Vol] 26 % [facility] Body fluid mesothelial cell percentageOrdered By: Brian Junior on 07-17-2023 Mesothelial cells/100 WBC (Body fld) 29 % [facility] Body fluid segmented neutrop hils count (number/volume)Ordered By: Brian Junior on 07-17-2023 Segmented neutrophils (Body fld) [#/Vol] 17 % [facility] Cytology report of Body flui d Cyto stainOrdered By: Brian Junior on 07-17-2023 Cytology report Cyto stain Doc (Body fld) SEE PATHOLOGY REPORT [facility] Comment on above: Specimen submitted t o Anatomical Pathology Department for testing. Gram stain for investigation of transfusion reactionOrdered By: Brian Junior on 07-17-2023 Microscopic observation Gram stain Nom (Unsp spec) [facility] Microscopic observation Gram stain Nom (Unsp spec) [facility] Mononuclear cells Auto (Body fld) [#/Vol]Ordered By: Brian Junior on 07-17-2023 Mononuclear cells (Body fld) [#/Vol] 0.106 10*3/uL [facility] No Panel InformationOrdered By: Brian Junior on 07-17-2023 Body Fluid Comment 2 Not Reportable [facility] Body Fluid Mononuclear WBCs (%) 80.9 % [facility] Body Fluid Pathologist Comment May follow [facility] Body Fluid Pathologist Comment Reviewed [facility] Comment on above: Previous reported re sult: May follow Edited by: TOMAS on 07/21/23:1220Negative for malignant cells.Beny Jordan M.D. 07/21/23 AMENDED REPORT 07/21/23 1220 PATH COMM/BF previously reported as: May follow Body Fluid Polynuclear WBCs (#) 0.025 10^3/uL [facility] Body Fluid Polynuclear WBCs (%) 19.1 % [facility] Body Fluid RBC 180 /mm3 [facility] 180 /mm3 [facility] 19.1 % [facility] 80.9 % [facility] 0.025 10^3/uL [facility] Reviewed [facility] Not Reportable [facility] Specimen source identificati on of body fluidOrdered By: Brian Junior on 07-17-2023 Specimen source Nom (Body fld) OTHER [facility] Comment on above: PARACENTESIS Thin prep Papanicolaou smear with manual screeningOrdered By: Brian Junior on 07-17-2023 Thin prep Papanicolaou smear with manual screening 5 % [facility] Total cell countOrdered By: Brian Junior on 07-17-2023 Cells counted Molgen (Bld/Tiss) [#] 0.160 10^3/ul [facility] Comment on above: This is the Total Nu mber of Nucleated Cell Types in the Body Fluid. Absolute lymphocyte countOrd ered By: Caridad Go on 07-16-2023 Lymphocytes Auto (Unsp spec) [#/Vol] 0.78 10*3/uL 0.83-4.51 [facility] Albumin Elph [Mass/Vol]Order ed By: Abel Parr on 07-16-2023 Albumin [Mass/Vol] 2.8 g/dL 2.9-4.4 [facility] Atypical perinuclear antineu trophil cytoplasmic antibodies measurementOrdered By: Abel Parr on 07-16-2023 Neutrophil cytoplasmic Ab.perinuclear.atypical IF (S) [Titer] <1:20 titer Neg:<1:20 [facility] Comment on above: Note: Specimen is ic teric.The atypical pANCA pattern has been observed in asignificant percentage of patients with ulcerative colitis,primary sclerosing cholangitis and autoimmune hepatitis. Basophil percentageOrdered B y: Abel Parr on 07-16-2023 Basophil percentage < 0.2 AI 0.0-0.9 [facility] Amylase [Catalytic activity/Vol] 28 U/L 25-115 [facility] Basophil percentage 28 U/L 25-115 [facility] Basophil percentageOrdered B y: Caridad Go on 07-16-2023 Basophil percentage 0 SEEN /hpf 0-5 [facility] Ammonia (P) [Moles/Vol] 29.0 umol/L 11-32 [facility] Basophil percentage 29.0 umol/L 11-32 [facility] Basophils/100 WBC (Bld) 0.5 % 0-1 [facility] Bilirubin [Mass/Vol] 11.00 mg/dL 0.20-1.00 [facility] Comment on above: For patients on eltr ombopag therapy, use of Dimension [place] TBIL is not recommended. Chloride [Moles/Vol] 97 mmol/L 98-107 [facility] Eosinophils/100 WBC (Bld) 1.7 % 0-5 [facility] Glucose [Mass/Vol] 137 mg/dL 74-106 [facility] Comment on above: Fasting Glucose resu lt greater than or equal to 126 mg/dL suggests DIABETES MELLITUS per A.D.A. criteria. Neutrophils (Bld) [#/Vol] 2.9 10*3/uL 2.0-7.7 [facility] Neutrophils/100 WBC (Bld) 70.4 % 47-70 [facility] Potassium [Moles/Vol] 3.1 mmol/L 3.5-5.1 [facility] Protein [Mass/Vol] 6.8 g/dL 6.4-8.2 [facility] Comment on above: Moderate Icterus, Re sult may be falsely decreased. Sodium [Moles/Vol] 134 mmol/L 136-145 [facility] WBC (Bld) [#/Vol] 4.1 10*3/uL 4.4-11.0 [facility] Bilirubin Test strip Ql (U)O rdered By: Caridad Go on 07-16-2023 Bilirubin Ql (U) Negative Negative [facility] Blood erythrocytes count (nu mber/volume)Ordered By: Caridad Go on 07-16-2023 RBC (Bld) [#/Vol] 2.94 10*6/uL 4.6-6.2 [facility] Blood hemoglobin measurement (mass/volume)Ordered By: Caridad Go on 07-16-2023 Hemoglobin (Bld) [Mass/Vol] 11.0 g/dL 13.0-16.5 [facility] Blood lymphocytes/100 leukoc ytesOrdered By: Caridad Go on 07-16-2023 Lymphocytes/100 WBC (Bld) 19.1 % 19-41 [facility] Blood monocytes/100 leukocyt esOrdered By: Caridad Go on 07-16-2023 Monocytes/100 WBC (Bld) 7.8 % 0-10 [facility] Blood platelet mean volumeOr dered By: Caridad Go on 07-16-2023 Platelet mean volume (Bld) [Entitic vol] 9.8 fL 6.2-12.0 [facility] Body fluid albumin measureme nt by colorimetric method (mass/volume)Ordered By: Abel Parr on 07-16-2023 Albumin Ql (Body fld) 0.8 g/dL Not Estab. [facility] Comment on above: The reference interv al(s) and other method performance specificationshave not been established for this body fluid. The test result must beintegrated into the clinical context for interpretation. Body fluid amylase measureme nt (enzymatic activity/volume)Ordered By: Abel Parr on 07-16-2023 Amylase (Body fld) [Catalytic activity/Vol] 16 U/L . [facility] Comment on above: : BODY FLUID TYPE : AMYLASE : : : : : Lymph : 50 - 83 : : : : : Peritoneal : : : Fluid : 88 - 109 : : : : : Saliva : : : (Mixed Glands) : [id number] - [id number] : : : : Therese W, Kimi V. Reference Intervals for Adults and Children 2008. Ninth Edition (V9.1) [employer], [facility]; [place]: May 2009.Performed at: [address] Director: Wali Sanders PhD, Phone: [phone] Determination of erythrocyte mean corpuscular volume (MCV)Ordered By: Caridad Go on 07-16-2023 MCV (RBC) [Entitic vol] 105.8 fL 80-94 [facility] Direct bilirubinOrdered By: Caridad Go on 07-16-2023 Bilirubin.direct [Mass/Vol] 2.88 mg/dL 0.00-0.30 [facility] HIV 1 and HIV-2 antibody ass ay with HIV-1 p24 antigen detectionOrdered By: Abel Parr on 07-16-2023 HIV 1+2 Ab+HIV1 p24 Ag IA Ql Non-Reactive Nonreactive [facility] Hematocrit Auto (Bld) [Volum e fraction]Ordered By: Caridad Go on 07-16-2023 Hematocrit (Bld) [Volume fraction] 31.1 % 40-54 [facility] INR in Blood by Coagulation assayOrdered By: Caridad Go on 07-16-2023 INR Coag (Bld) [Relative time] 1.8 {INR} [facility] Interpretation of serum or p lasma protein pattern by immunofixation (narrative resultOrdered By: Abel Parr on 07-16-2023 Protein Fractions Immunofixation Johann [Interp] See comment [facility] Comment on above: NOT OBSERVED Iron measurement (mass/mass) Ordered By: Brian Junior on 07-16-2023 Iron (Unsp spec) [Mass/Mass] 118 ug/dL 65-175 [facility] Ketones Test strip Ql (U)Ord ered By: Caridad Go on 07-16-2023 Ketones Ql (U) Negative Negative [facility] Laboratory - Chemistry and C hemistry - challengeOrdered By: Caridad Go on 07-16-2023 ALP [Catalytic activity/Vol] 111 U/L 45-117 [facility] ALT [Catalytic activity/Vol] 30 U/L 16-61 [facility] CO2 [Moles/Vol] 29.0 mmol/L 21.0-32.0 [facility] Globulin (S) [Mass/Vol] 4.4 g/dL 2.2-4.2 [facility] Lipase [Catalytic activity/Vol] 42 U/L 13-75 [facility] Comment on above: Please note:LIPASE r evised reference range effective 23. New Lipase methodology. Expected to produce lower values than the previous assay method. NEW Reference Range: 13 - 75 U/L Urea nitrogen/Creatinine [Mass ratio] 4.1 mg/mg 10-20 [facility] Laboratory - Chemistry and C hemistry - challengeOrdered By: Brian Junior on 07-16-2023 Cobalamin (Vitamin B12) [Mass/Vol] 575 pg/mL 211-911 [facility] Laboratory - CoagulationOrde red By: Caridad Go on 07-16-2023 aPTT Coag (Bld) [Time] 48.8 s 24.1-36.2 [facility] PT Coag (PPP) [Time] 21.2 s 11.7-14.9 [facility] Laboratory - Hematology and Cell countsOrdered By: Caridad Go on 07-16-2023 Erythrocyte distribution width (RBC) [Entitic vol] 56.9 fL 35.1-43.9 [facility] Erythrocyte distribution width (RBC) [Ratio] 14.7 % 11.6-14.6 [facility] Immature granulocytes/100 WBC (Bld) 0.500 % 0.0-0.9 [facility] Comment on above: IG% - Immature Granu locytes (promyelocytes, myelocytes and metamyelocytes) > 1% indicates that a LEFT SHIFT is Present. MCH (RBC) [Entitic mass] 37.4 pg 27.0-32.0 [facility] Nucleated RBC/100 WBC (Bld) [Ratio] 0 % 0-5 [facility] MCHC Auto (RBC) [Mass/Vol]Or dered By: Caridad Go on 07-16-2023 MCHC (RBC) [Mass/Vol] 35.4 g/dL 32-36 [facility] Mucus LM Ql (Urine sed)Order ed By: Caridad Go on 07-16-2023 Mucus Ql (Urine sed) 0 SEEN /hpf [facility] Nitrite Test strip Ql (U)Ord ered By: Caridad Go on 07-16-2023 Nitrite Ql (U) Negative Negative [facility] No Panel InformationOrdered By: Abel Friend on 07-16-2023 Addendum Document Comment . [facility] Comment on above: Protein electrophore sis scan will follow via computer,mail, or api architect delivery. CA 19-9 Antigen 58 U/mL 0-35 [facility] Comment on above: [employer] El ectrochemiluminescence Immunoassay(ECLIA)Values obtained with different assay methods or kits cannotbe used interchangeably. Results cannot be interpreted asabsolute evidence of the presence or absence of malignantdisease. Centromere B Antibody <0.2 AI 0.0-0.9 [facility] Ceruloplasmin 17.1 mg/dL 16.0-31.0 [facility] Comment on above: Performed at: [address] [id number] Director: Wali Sanders PhD, Phone: [phone] [employer] Antibody <0.2 AI 0.0-0.9 [facility] See comment [facility] 58 U/mL 0-35 [facility] 17.1 mg/dL 16.0-31.0 [facility] <0.2 AI 0.0-0.9 [facility] No Panel InformationOrdered By: Caridad Go on 07-16-2023 Hepatitis A IgM Antibody Negative Negative [facility] Hepatitis B Core IgM Antibody Negative Negative [facility] Hepatitis C Antibody (EIA) Non-Reactive Non Reactive [facility] Hepatitis C Antibody Comment Comment . [facility] Comment on above: Not infected with HC V unless early or acute infection issuspected (which may be delayed in an immunocompromisedindividual), or other evidence exists to indicate HCVinfection.Performed at: [facility] [address] [id number] Director: Wali Sanders PhD, Phone: [phone] Negative Negative [facility] Non-Reactive Non Reactive [facility] Comment . [facility] Estimated Creatinine Clearance Calc 129.92 ml/min [facility] Estimated GFR (MDRD) Amer 145 mL/min >60 [facility] Comment on above: GFR Calc Estimated GFR (MDRD) Non-Af Amer 120 mL/min >60 [facility] Comment on above: Non- GFR Calc Ethyl Alcohol Level 6.0 mg/dL [facility] Comment on above: The serum:whole bloo d ethanol ratio is approximately 1.14and varies slightly with hematocrit. Medical Alcohol reference interval and critical value innon-tolerant individuals; 50 - 100 Impairment 100 Intoxication 100 - 250 Severe Poisoning 250 - 400 Deep/possible fatal coma 21.2 SECONDS 11.7-14.9 [facility] 48.8 Seconds 24.1-36.2 [facility] 42 U/L 13-75 [facility] 6.0 mg/dL [facility] No Panel InformationOrdered By: Brian Junior on 07-16-2023 Total Iron Binding Capacity 144 ug/dL 250-450 [facility] 575 pg/mL 211-911 [facility] 144 ug/dL 250-450 [facility] Platelets bldOrdered By: Uyen Go on 07-16-2023 Platelets (Bld) [#/Vol] 129 10*3/uL 150-450 [facility] Protein Test strip Ql (U)Ord ered By: Caridad Go on 07-16-2023 Protein Ql (U) Negative Negative [facility] Serum DNA double strand anti body assay (units/volume)Ordered By: Abel Parr on 07-16-2023 DNA double strand Ab Qn (S) 1 [IU]/mL 0-9 [facility] Comment on above: Negative <5 Equivoca l 5 - 9 Positive >9 Serum Dana-1 antibody assay (u nits/volume)Ordered By: Abel Parr on 07-16-2023 Dana-1 extractable nuclear Ab Qn (S) <0.2 AI 0.0-0.9 [facility] Serum Scl-70 extractable nuc lear antibody assay (units/volume)Ordered By: Abel Parr on 07-16-2023 SCL-70 extractable nuclear Ab Qn (S) <0.2 AI 0.0-0.9 [facility] Serum Jacobs extractable nucl ear antibody detectionOrdered By: Abel Parr on 07-16-2023 Jacobs extractable nuclear Ab Ql (S) 0.2 AI 0.0-0.9 [facility] Serum [id number] me asurementOrdered By: Abel Parr on 07-16-2023 Alpha 1 antitrypsin [Mass/Vol] 179 mg/dL 101-187 [facility] Comment on above: Performed at: [address] [id number] Director: Wali Sanders PhD, Phone: [phone] Serum [id number] measu rement by electrophoresisOrdered By: Abel Parr on 07-16-2023 Alpha 1 globulin Elph [Mass/Vol] 0.3 g/dL 0.4-1.0 [facility] Serum classic neutrophil cyt oplasmic antibody assay (units/volume)Ordered By: Abel Parr on 07-16-2023 Neutrophil cytoplasmic Ab.classic Qn (S) 1:20 titer Neg:<1:20 [facility] Comment on above: Note: Specimen is ic teric. Serum or plasma IgA measurem ent (mass/volume)Ordered By: Abel Parr on 07-16-2023 IgA [Mass/Vol] 755 mg/dL 90-386 [facility] Serum or plasma IgG measurem ent (mass/volume)Ordered By: Abel Parr on 07-16-2023 IgG [Mass/Vol] 2163 mg/dL 603-1613 [facility] Serum or plasma IgM measurem ent (mass/volume)Ordered By: Abel Parr on 07-16-2023 IgM [Mass/Vol] 288 mg/dL 20-172 [facility] Serum or plasma albumin nadja urement (mass/volume)Ordered By: Caridad Go on 07-16-2023 Albumin [Mass/Vol] 2.4 g/dL 3.2-5.0 [facility] Serum or plasma [id number] protein tumor marker measurement (units/volume)Ordered By: Able Parr on 07-16-2023 AFP.tumor marker Qn 3.9 ng/mL 0.0-8.4 [facility] Comment on above: [employer] El ectrochemiluminescence Immunoassay(ECLIA)Values obtained with different assay methods or kits cannotbe used interchangeably. Results cannot be interpreted asabsolute evidence of the presence or absence of malignantdisease.This test is not interpretable in females. Serum or plasma beta globuli n measurement by electrophoresis (mass/volume)Ordered By: Abel Parr on 07-16-2023 Beta globulin Elph [Mass/Vol] 0.7 g/dL 0.7-1.3 [facility] Serum or plasma calcium nadja urement (mass/volume)Ordered By: Caridad Go on 07-16-2023 Calcium [Mass/Vol] 8.5 mg/dL 8.5-10.1 [facility] Serum or plasma carcinoembry onic antigen measurement (mass/volume)Ordered By: Abel Parr on 07-16-2023 Carcinoembryonic Ag [Mass/Vol] 6.1 ng/mL 0.0-4.7 [facility] Comment on above: Nonsmokers <3.9 Smok ers <5.6[employer] Electrochemiluminescence Immunoassay(ECLIA)Values obtained with different assay methods or kitscannot be used interchangeably. Results cannot beinterpreted as absolute evidence of the presence orabsence of malignant disease. Serum or plasma creatinine m easurement (mass/volume)Ordered By: Caridad Go on 07-16-2023 Creatinine [Mass/Vol] 0.73 mg/dL 0.70-1.30 [facility] Comment on above: Moderate Icterus, Re sult may be falsely decreased.The validity of the calculated GFR & GFRAA in patients over 70 years has not been determined. Clinical correlation is essential. Serum or plasma cytomegalovi rachel (CMV) IgM antibody assay (units/volume)Ordered By: Abel Parr on 07-16-2023 CMV IgM Qn < 30.0 AU/mL 0.0-29.9 [facility] Comment on above: Negative <30.0 Equiv ocal 30.0 - 34.9 Positive >34.9A positive result is generally indicative of acuteinfection, reactivation or persistent IgM production. Serum or plasma ferritin maria del rosario surement (mass/volume)Ordered By: Brian Junior on 07-16-2023 Ferritin [Mass/Vol] 1050 ng/mL 26-388 [facility] Comment on above: Moderate Icterus, Re sult may be falsely decreased. Serum or plasma folate measu rement (mass/volume)Ordered By: Brian Junior on 07-16-2023 Folate [Mass/Vol] 2.80 ng/mL 3.1-55.4 [facility] Serum or plasma gamma globul in measurement by electrophoresis (mass/volume)Ordered By: Abel Parr on 07-16-2023 Gamma globulin Elph [Mass/Vol] 2.6 g/dL 0.4-1.8 [facility] Serum or plasma hepatitis B virus surface antigen detection by immunoassayOrdered By: Caridad Go on 07-16-2023 HBV surface Ag IA Ql Negative Negative [facility] Serum or plasma immunoelectr ophoresis interpretation (nominal result)Ordered By: Abel Parr on 07-16-2023 Interpretation IEP [Interp] Comment . [facility] Comment on above: No monoclonality det ected. Serum or plasma iron saturat ion measurement (mass fraction)Ordered By: Brian Junior on 07-16-2023 Iron saturation [Mass fraction] 81.9 % 15.0-55.0 [facility] Serum or plasma urea nitroge n measurement (mass/volume)Ordered By: Caridad Go on 07-16-2023 Urea nitrogen [Mass/Vol] 3 mg/dL 7-18 [facility] Serum perinuclear neutrophil cytoplasmic antibody titer by immunofluorescenceOrdered By: Abel Parr on 07-16-2023 Neutrophil cytoplasmic Ab.perinuclear IF (S) [Titer] <1:20 titer Neg:<1:20 [facility] Comment on above: Note: Specimen is ic teric.The presence of positive fluorescence exhibiting P-ANCA orC-ANCA patterns alone is not specific for the diagnosis ofWegener's Granulomatosis (WG) or microscopic polyangiitis.Decisions about treatment should not be based solely onANCA IFA results. The International ANCA Group Consensusrecommends follow up testing of positive sera with both CA-3 and MPO-ANCA enzyme immunoassays. As many as 5% serumsamples are positive only by EIA. Ref. AM J Clin Zurcvf9496;111:507-513. Squamous epithelial cells de tection in urine sediment by light microscopyOrdered By: Caridad Go on 07-16-2023 Epithelial cells.squamous LM Ql (Urine sed) 0 SEEN /hpf 0-5 [facility] Thin prep Papanicolaou smear with manual screeningOrdered By: Abel Parr on 07-16-2023 Thin prep Papanicolaou smear with manual screening 0.8 0.7-1.7 [facility] Thin prep Papanicolaou smear with manual screening 83 ug/dL 69-132 [facility] Comment on above: Detection Limit = 5P erformed at: [facility] [address] [id number] Director: Wali Sanders PhD, Phone: [phone] at: - [facility] [address] [id number] Director: Angela Buenrostro MD, Phone: [phone] Thin prep Papanicolaou smear with manual screeningOrdered By: Caridad Go on 07-16-2023 Thin prep Papanicolaou smear with manual screening 70 U/L 15-37 [facility] Thin prep Papanicolaou smear with manual screening 8 5-15 [facility] Total protein bloodOrdered B y: Abel Parr on 07-16-2023 Protein [Mass/Vol] 6.7 g/dL 6.0-8.5 [facility] Urine blood detectionOrdered By: Caridad Go on 07-16-2023 RBC Ql (U) Negative Negative [facility] RBC Ql (U) 0 SEEN /hpf 0-5 [facility] Urine clarityOrdered By: Uyen Go on 07-16-2023 Clarity (U) Clear Clear [facility] Urine color determinationOrd ered By: Caridad Go on 07-16-2023 Color (U) Yellow Yellow [facility] Urine glucose detectionOrder ed By: Caridad Go on 07-16-2023 Glucose Ql (U) Normal mg/dl Normal [facility] Urine leukocyte esterase det ection by dipstickOrdered By: Caridad Go on 07-16-2023 Leukocyte esterase Test strip Ql (U) Negative Negative [facility] Urine pHOrdered By: Caridad hernandez on 07-16-2023 pH (U) 7.0 [pH] 5.0 - 8.0 [facility] Urine sediment bacteria coun t by microscopy (number/high power field)Ordered By: Caridad Go on 07-16-2023 Bacteria LM.HPF (Urine sed) [#/Area] 0 /[HPF] None Seen [facility] Urine specific gravity measu rementOrdered By: Caridad Go on 07-16-2023 Specific gravity (U) [Rel density] 1.005 1.002-1.030 [facility] Urobilinogen Auto test strip Ql (U)Ordered By: Caridad Go on 07-16-2023 Urobilinogen Ql (U) 4 mg/dl Normal [facility] Absolute lymphocyte countOrd ered By: Tana Farmer on 07-15-2023 Lymphocytes Auto (Unsp spec) [#/Vol] 0.92 10*3/uL 0.83-4.51 [facility] Basophil percentageOrdered B y: Tana Farmer on 07-15-2023 Ammonia (P) [Moles/Vol] 56.0 umol/L 11-32 [facility] Basophil percentage 139 mg/dL 74-106 [facility] Basophil percentage 7.1 g/dL 6.4-8.2 [facility] Basophil percentage 10.40 mg/dL 0.20-1.00 [facility] Basophil percentage 133 mmol/L 136-145 [facility] Basophil percentage 3.3 mmol/L 3.5-5.1 [facility] Basophil percentage 98 mmol/L 98-107 [facility] Basophil percentage 56.0 umol/L 11-32 [facility] Basophils (Bld) [#/Vol] 4.9 10*3/uL 4.4-11.0 [facility] Basophils (Bld) [#/Vol] 3.5 10*3/uL 2.0-7.7 [facility] Basophils/100 WBC (Bld) 0.4 % 0-1 [facility] Basophils/100 WBC (Bld) 70.7 % 47-70 [facility] Basophils/100 WBC (Bld) 1.8 % 0-5 [facility] Bilirubin [Mass/Vol] 10.40 mg/dL 0.20-1.00 [facility] Comment on above: For patients on eltr ombopag therapy, use of Dimension [place] TBIL is not recommended. Chloride [Moles/Vol] 98 mmol/L 98-107 [facility] Eosinophils/100 WBC (Bld) 1.8 % 0-5 [facility] Glucose [Mass/Vol] 139 mg/dL 74-106 [facility] Comment on above: Fasting Glucose resu lt greater than or equal to 126 mg/dL suggests DIABETES MELLITUS per A.D.A. criteria. Neutrophils (Bld) [#/Vol] 3.5 10*3/uL 2.0-7.7 [facility] Neutrophils/100 WBC (Bld) 70.7 % 47-70 [facility] Potassium [Moles/Vol] 3.3 mmol/L 3.5-5.1 [facility] Protein [Mass/Vol] 7.1 g/dL 6.4-8.2 [facility] Sodium [Moles/Vol] 133 mmol/L 136-145 [facility] WBC (Bld) [#/Vol] 4.9 10*3/uL 4.4-11.0 [facility] Blood erythrocytes count (nu mber/volume)Ordered By: Tana Farmer on 07-15-2023 RBC (Bld) [#/Vol] 3.07 10*6/uL 4.6-6.2 [facility] Blood hemoglobin measurement (mass/volume)Ordered By: Tana Farmer on 07-15-2023 Hemoglobin (Bld) [Mass/Vol] 11.4 g/dL 13.0-16.5 [facility] Blood lymphocytes/100 leukoc ytesOrdered By: lorrainesand pointjames Farmer on 07-15-2023 Lymphocytes/100 WBC (Bld) 18.6 % 19-41 [facility] Blood monocytes/100 leukocyt esOrdered By: Tana Farmer on 07-15-2023 Monocytes/100 WBC (Bld) 8.1 % 0-10 [facility] Blood platelet mean volumeOr dered By: Tana Farmer on 07-15-2023 Platelet mean volume (Bld) [Entitic vol] 10.1 fL 6.2-12.0 [facility] Determination of erythrocyte mean corpuscular volume (MCV)Ordered By: Tana Farmer on 07-15-2023 MCV (RBC) [Entitic vol] 106.8 fL 80-94 [facility] Hematocrit Auto (Bld) [Volum e fraction]Ordered By: Tana Farmer on 07-15-2023 Hematocrit (Bld) [Volume fraction] 32.8 % 40-54 [facility] Laboratory - Chemistry and C hemistry - challengeOrdered By: Tana Farmer on 07-15-2023 ALP [Catalytic activity/Vol] 118 U/L 45-117 [facility] ALT [Catalytic activity/Vol] 33 U/L 16-61 [facility] CO2 [Moles/Vol] 29.0 mmol/L 21.0-32.0 [facility] Globulin (S) [Mass/Vol] 4.5 g/dL 2.2-4.2 [facility] Urea nitrogen/Creatinine [Mass ratio] 3.7 mg/mg 10-20 [facility] Laboratory - Hematology and Cell countsOrdered By: Tana Farmer on 07-15-2023 Erythrocyte distribution width (RBC) [Entitic vol] 59.2 fL 35.1-43.9 [facility] Erythrocyte distribution width (RBC) [Ratio] 15.0 % 11.6-14.6 [facility] Immature granulocytes/100 WBC (Bld) 0.400 % 0.0-0.9 [facility] Comment on above: IG% - Immature Granu locytes (promyelocytes, myelocytes and metamyelocytes) > 1% indicates that a LEFT SHIFT is Present. MCH (RBC) [Entitic mass] 37.1 pg 27.0-32.0 [facility] Nucleated RBC/100 WBC (Bld) [Ratio] 0 % 0-5 [facility] MCHC Auto (RBC) [Mass/Vol]Or dered By: Tana Farmer on 07-15-2023 MCHC (RBC) [Mass/Vol] 34.8 g/dL 32-36 [facility] No Panel InformationOrdered By: Tana Farmer on 07-15-2023 Estimated GFR (MDRD) Amer 128 mL/min >60 [facility] Comment on above: GFR Calc Estimated GFR (MDRD) Non-Af Amer 106 mL/min >60 [facility] Comment on above: Non- GFR Calc 37.1 pg 27.0-32.0 [facility] 15.0 % 11.6-14.6 [facility] 59.2 fl 35.1-43.9 [facility] 0.400 % 0.0-0.9 [facility] 0 % 0-5 [facility] 106 mL/min >60 [facility] 128 mL/min >60 [facility] 3.7 RATIO 10-20 [facility] 4.5 g/dL 2.2-4.2 [facility] 118 U/L 45-117 [facility] 33 U/L 16-61 [facility] 29.0 mmol/L 21.0-32.0 [facility] Platelets bldOrdered By: Mack Farmer on 07-15-2023 Platelets (Bld) [#/Vol] 134 10*3/uL 150-450 [facility] Serum or plasma albumin nadja urement (mass/volume)Ordered By: Tana Farmer on 07-15-2023 Albumin [Mass/Vol] 2.6 g/dL 3.2-5.0 [facility] Serum or plasma albumin/glob ulin mass ratioOrdered By: Tana Farmer on 07-15-2023 Albumin/Globulin [Mass ratio] 0.6 {ratio} 0.9-2.4 [facility] Serum or plasma calcium nadja urement (mass/volume)Ordered By: Tana Farmer on 07-15-2023 Calcium [Mass/Vol] 8.9 mg/dL 8.5-10.1 [facility] Serum or plasma creatinine m easurement (mass/volume)Ordered By: Tana Farmer on 07-15-2023 Creatinine [Mass/Vol] 0.81 mg/dL 0.70-1.30 [facility] Comment on above: The validity of the calculated GFR & GFRAA in patients over 70 years has not been determined. Clinical correlation is essential. Serum or plasma urea nitroge n measurement (mass/volume)Ordered By: Tana Farmer on 07-15-2023 Urea nitrogen [Mass/Vol] 3 mg/dL 7-18 [facility] Thin prep Papanicolaou smear with manual screeningOrdered By: Tana Farmer on 07-15-2023 Thin prep Papanicolaou smear with manual screening 76 U/L 15-37 [facility] Thin prep Papanicolaou smear with manual screening 6 5-15 [facility] Basophil percentageOrdered B y: Tana Farmer on 06-19-2023 Ammonia (P) [Moles/Vol] 54.0 umol/L [facility] Basophil percentage 54.0 umol/L [facility] INR in Blood by Coagulation assayOrdered By: Tana Farmer on 06-19-2023 INR Coag (Bld) [Relative time] 1.5 {INR} [facility] Laboratory - CoagulationOrde red By: Tana Farmer on 06-19-2023 PT Coag (PPP) [Time] 18.3 s 11.7-14.9 [facility] No Panel InformationOrdered By: Tana Farmer on 06-19-2023 18.3 SECONDS 11.7-14.9 [facility] Absolute lymphocyte countOrd ered By: Tana Farmer on 06-18-2023 Lymphocytes Auto (Unsp spec) [#/Vol] 0.90 10*3/uL 0.83-4.51 [facility] Basophil percentageOrdered B y: Tana Farmer on 06-18-2023 Basophil percentage 133 mg/dL 74-106 [facility] Basophil percentage 7.8 g/dL 6.4-8.2 [facility] Basophil percentage 9.20 mg/dL 0.20-1.00 [facility] Basophil percentage 130 mmol/L 136-145 [facility] Basophil percentage 3.4 mmol/L 3.5-5.1 [facility] Basophil percentage 97 mmol/L 98-107 [facility] Basophils (Bld) [#/Vol] 6.5 10*3/uL 4.4-11.0 [facility] Basophils (Bld) [#/Vol] 4.9 10*3/uL 2.0-7.7 [facility] Basophils/100 WBC (Bld) 0.5 % 0-1 [facility] Basophils/100 WBC (Bld) 76.0 % 47-70 [facility] Basophils/100 WBC (Bld) 1.4 % 0-5 [facility] Bilirubin [Mass/Vol] 9.20 mg/dL 0.20-1.00 [facility] Comment on above: For patients on eltr ombopag therapy, use of Dimension [place] TBIL is not recommended. Chloride [Moles/Vol] 97 mmol/L 98-107 [facility] Eosinophils/100 WBC (Bld) 1.4 % 0-5 [facility] Glucose [Mass/Vol] 133 mg/dL 74-106 [facility] Comment on above: Fasting Glucose resu lt greater than or equal to 126 mg/dL suggests DIABETES MELLITUS per A.D.A. criteria. Neutrophils (Bld) [#/Vol] 4.9 10*3/uL 2.0-7.7 [facility] Neutrophils/100 WBC (Bld) 76.0 % 47-70 [facility] Potassium [Moles/Vol] 3.4 mmol/L 3.5-5.1 [facility] Protein [Mass/Vol] 7.8 g/dL 6.4-8.2 [facility] Sodium [Moles/Vol] 130 mmol/L 136-145 [facility] WBC (Bld) [#/Vol] 6.5 10*3/uL 4.4-11.0 [facility] Blood erythrocytes count (nu mber/volume)Ordered By: Tana Farmer on 06-18-2023 RBC (Bld) [#/Vol] 3.36 10*6/uL 4.6-6.2 [facility] Blood hemoglobin measurement (mass/volume)Ordered By: Tana Farmer on 06-18-2023 Hemoglobin (Bld) [Mass/Vol] 12.4 g/dL 13.0-16.5 [facility] Blood lymphocytes/100 leukoc ytesOrdered By: Tana Framer on 06-18-2023 Lymphocytes/100 WBC (Bld) 13.9 % 19-41 [facility] Blood monocytes/100 leukocyt esOrdered By: Tana Farmer on 06-18-2023 Monocytes/100 WBC (Bld) 7.7 % 0-10 [facility] Blood platelet mean volumeOr dered By: Tana Farmer on 06-18-2023 Platelet mean volume (Bld) [Entitic vol] 10.2 fL 6.2-12.0 [facility] Determination of erythrocyte mean corpuscular volume (MCV)Ordered By: Tana Farmer on 06-18-2023 MCV (RBC) [Entitic vol] 103.9 fL 80-94 [facility] Hematocrit Auto (Bld) [Volum e fraction]Ordered By: Tana Farmer on 06-18-2023 Hematocrit (Bld) [Volume fraction] 34.9 % 40-54 [facility] Laboratory - Chemistry and C hemistry - challengeOrdered By: Tana Farmer on 06-18-2023 ALP [Catalytic activity/Vol] 115 U/L 45-117 [facility] ALT [Catalytic activity/Vol] 49 U/L 16-61 [facility] CO2 [Moles/Vol] 26.0 mmol/L 21.0-32.0 [facility] Globulin (S) [Mass/Vol] 5.0 g/dL 2.2-4.2 [facility] Urea nitrogen/Creatinine [Mass ratio] 4.3 mg/mg 10-20 [facility] Laboratory - Hematology and Cell countsOrdered By: Tana Farmer on 06-18-2023 Erythrocyte distribution width (RBC) [Entitic vol] 52.1 fL 35.1-43.9 [facility] Erythrocyte distribution width (RBC) [Ratio] 13.6 % 11.6-14.6 [facility] Immature granulocytes/100 WBC (Bld) 0.500 % 0.0-0.9 [facility] Comment on above: IG% - Immature Granu locytes (promyelocytes, myelocytes and metamyelocytes) > 1% indicates that a LEFT SHIFT is Present. MCH (RBC) [Entitic mass] 36.9 pg 27.0-32.0 [facility] Nucleated RBC/100 WBC (Bld) [Ratio] 0 % 0-5 [facility] MCHC Auto (RBC) [Mass/Vol]Or dered By: Tana Farmer on 06-18-2023 MCHC (RBC) [Mass/Vol] 35.5 g/dL 32-36 [facility] No Panel InformationOrdered By: Tana Farmer on 06-18-2023 Estimated GFR (MDRD) Amer 110 mL/min >60 [facility] Comment on above: GFR Calc Estimated GFR (MDRD) Non-Af Amer 91 mL/min >60 [facility] Comment on above: Non- GFR Calc 36.9 pg 27.0-32.0 [facility] 13.6 % 11.6-14.6 [facility] 52.1 fl 35.1-43.9 [facility] 0.500 % 0.0-0.9 [facility] 0 % 0-5 [facility] 91 mL/min >60 [facility] 110 mL/min >60 [facility] 4.3 RATIO 10-20 [facility] 5.0 g/dL 2.2-4.2 [facility] 115 U/L 45-117 [facility] 49 U/L 16-61 [facility] 26.0 mmol/L 21.0-32.0 [facility] Platelets bldOrdered By: Mack declanjames Farmer on 06-18-2023 Platelets (Bld) [#/Vol] 114 10*3/uL 150-450 [facility] Serum or plasma albumin nadja urement (mass/volume)Ordered By: Tana Farmer on 06-18-2023 Albumin [Mass/Vol] 2.8 g/dL 3.2-5.0 [facility] Serum or plasma albumin/glob ulin mass ratioOrdered By: Tana Farmer on 06-18-2023 Albumin/Globulin [Mass ratio] 0.6 {ratio} 0.9-2.4 [facility] Serum or plasma calcium nadja urement (mass/volume)Ordered By: Tana Farmer on 06-18-2023 Calcium [Mass/Vol] 8.9 mg/dL 8.5-10.1 [facility] Serum or plasma creatinine m easurement (mass/volume)Ordered By: Tana Farmer on 06-18-2023 Creatinine [Mass/Vol] 0.92 mg/dL 0.70-1.30 [facility] Comment on above: The validity of the calculated GFR & GFRAA in patients over 70 years has not been determined. Clinical correlation is essential. Serum or plasma urea nitroge n measurement (mass/volume)Ordered By: Tana Farmer on 06-18-2023 Urea nitrogen [Mass/Vol] 4 mg/dL 7-18 [facility] Thin prep Papanicolaou smear with manual screeningOrdered By: Tana Farmer on 06-18-2023 Thin prep Papanicolaou smear with manual screening 98 U/L 15-37 [facility] Thin prep Papanicolaou smear with manual screening 7 5-15 [facility] Absolute lymphocyte counton 04-15-2022 Lymphocytes Auto (Unsp spec) [#/Vol] 1.18 10*3/uL 0.83-4.51 [facility] Work Phone: [phone] Basophil percentageon 2021 Basophils/100 WBC (Bld) 0.8 % 0-1 [facility] Work Phone: [phone] Bilirubin [Mass/Vol] 1.40 mg/dL 0.20-1.00 [facility] Work Phone: Comment on above: For patients on eltr ombopag therapy, use of Dimension [place] TBIL is not recommended. Chloride [Moles/Vol] 103 mmol/L 98-107 [facility] Work Phone: Eosinophils/100 WBC (Bld) 1.8 % 0-5 [facility] Work Phone: Glucose [Mass/Vol] 98 mg/dL 74-106 [facility] Work Phone: Neutrophils (Bld) [#/Vol] 3.4 10*3/uL 2.0-7.7 [facility] Work Phone: Neutrophils/100 WBC (Bld) 67.1 % 47-70 [facility] Work Phone: [phone] Potassium [Moles/Vol] 4.2 mmol/L 3.5-5.1 [facility] Work Phone: [phone] Protein [Mass/Vol] 8.5 g/dL 6.4-8.2 [facility] Work Phone: Sodium [Moles/Vol] 137 mmol/L 136-145 [facility] Work Phone: [phone] WBC (Bld) [#/Vol] 5.0 10*3/uL 4.4-11.0 [facility] Work Phone: Blood erythrocytes count (nu mber/volume)on 04-15-2022 RBC (Bld) [#/Vol] 4.27 10*6/uL 4.6-6.2 [facility] Work Phone: Blood hemoglobin measurement (mass/volume)on 04-15-2022 Hemoglobin (Bld) [Mass/Vol] 14.6 g/dL 13.0-16.5 [facility] Work Phone: Blood lymphocytes/100 leukoc yteson 04-15-2022 Lymphocytes/100 WBC (Bld) 23.4 % 19-41 [facility] Work Phone: Blood monocytes/100 leukocyt eson 04-15-2022 Monocytes/100 WBC (Bld) 6.7 % 0-10 [facility] Work Phone: Blood platelet mean volumeon 04-15-2022 Platelet mean volume (Bld) [Entitic vol] 9.3 fL 6.2-12.0 [facility] Work Phone: Determination of erythrocyte mean corpuscular volume (MCV)on 04-15-2022 MCV (RBC) [Entitic vol] 99.1 fL 80-94 [facility] Work Phone: Hematocrit Auto (Bld) [Volum e fraction]on 04-15-2022 Hematocrit (Bld) [Volume fraction] 42.3 % 40-54 [facility] Work Phone: Laboratory - Chemistry and C hemistry - challengeon 04-15-2022 ALP [Catalytic activity/Vol] 125 U/L 45-117 [facility] Work Phone: ALT [Catalytic activity/Vol] 63 U/L 16-61 [facility] Work Phone: CO2 [Moles/Vol] 28.0 mmol/L 21.0-32.0 [facility] Work Phone: Free T4 [Mass/Vol] 0.96 ng/dL 0.76-1.46 [facility] Work Phone: Globulin (S) [Mass/Vol] 4.7 g/dL 2.2-4.2 [facility] Work Phone: Urea nitrogen/Creatinine [Mass ratio] 6.9 mg/mg 10-20 [facility] Work Phone: Laboratory - Hematology and Cell countson 04-15-2022 Erythrocyte distribution width (RBC) [Entitic vol] 50.1 fL 35.1-43.9 [facility] Work Phone: Erythrocyte distribution width (RBC) [Ratio] 13.6 % 11.6-14.6 [facility] Work Phone: Immature granulocytes/100 WBC (Bld) 0.200 % 0.0-0.9 [facility] Work Phone: Comment on above: IG% - Immature Granu locytes (promyelocytes, myelocytes and metamyelocytes) > 1% indicates that a LEFT SHIFT is Present. MCH (RBC) [Entitic mass] 34.2 pg 27.0-32.0 [facility] Work Phone: Nucleated RBC/100 WBC (Bld) [Ratio] 0 % 0-5 [facility] Work Phone: MCHC Auto (RBC) [Mass/Vol]on 04-15-2022 MCHC (RBC) [Mass/Vol] 34.5 g/dL 32-36 [facility] Work Phone: No Panel Informationon 04-15 Estimated GFR (MDRD) Amer 147 mL/min >60 [facility] Work Phone: Comment on above: GFR Calc Estimated GFR (MDRD) Non-Af Amer 122 mL/min >60 [facility] Work Phone: Comment on above: Non- GFR Calc Thyroid Stimulating Hormone (TSH) 2.97 uIU/mL 0.358-3.74 [facility] Work Phone: Platelets bldon 04-15-2022 Platelets (Bld) [#/Vol] 108 10*3/uL 150-450 [facility] Work Phone: Serum or plasma albumin nadja urement (mass/volume)on 04-15-2022 Albumin [Mass/Vol] 3.8 g/dL 3.2-5.0 [facility] Work Phone: Serum or plasma albumin/glob ulin mass ratioon 04-15-2022 Albumin/Globulin [Mass ratio] 0.8 {ratio} 0.9-2.4 [facility] Work Phone: Serum or plasma calcium nadja urement (mass/volume)on 04-15-2022 Calcium [Mass/Vol] 8.7 mg/dL 8.5-10.1 [facility] Work Phone: Serum or plasma creatinine m easurement (mass/volume)on 04-15-2022 Creatinine [Mass/Vol] 0.72 mg/dL 0.70-1.30 [facility] Work Phone: Comment on above: The validity of the calculated GFR & GFRAA in patients over 70 years has not been determined. Clinical correlation is essential. Serum or plasma urea nitroge n measurement (mass/volume)on 04-15-2022 Urea nitrogen [Mass/Vol] 5 mg/dL 7-18 [facility] Work Phone: Thin prep Papanicolaou smear with manual screeningon 04-15-2022 Thin prep Papanicolaou smear with manual screening 140 U/L 15-37 [facility] Work Phone: Thin prep Papanicolaou smear with manual screening 6 5-15 [facility] Work Phone: HEPATITIS PROFILEon 06-29-20 19 HEPATITIS B CORE AB IGM Negative Normal [facility] Comment on above: Result Comment: Test Performed By: [facility] [employer] [address] [place] [address] Skip Hoist Engineer: Rain Martínez MD, PhD HEPATITIS A VIRUS ANTIBODY IGM Negative Normal [facility] HEPATITIS C AB Negative Normal [facility] Comment on above: Result Comment: Test Performed By: [facility] [place], [place] [address] Skip Hoist Engineer: Rain Martínez MD, PhD --- 06/29/19 1107 --- HCV previously reported as: Negative HEPATITIS B SURFACE ANTIGEN Negative Normal [facility] RAPID PLASMA REAGINon 2018 RAPID PLASMA REAGIN NONREACTIVE Normal NONREACTIVE [facility] Comment on above: Performed By: #### R CA #### [address] [place] [address] ALCOHOLon 06-27-2019 Ethanol [Mass/Vol] 83.0 mg/dL Normal [facility] Comment on above: Result Comment: < 3 mg/dl NONE DETECTED 50-100 mg/dl MAY SHOW SIGNS OF INTOXICATION 300-500 mg/dl COMATOSE LEVEL Performed By: #### M N, ALC #### [address] [place] [address] CBC with AUTO DIFFon 019 BAS0 % 1.10 % Normal 0-2 [facility] Comment on above: Performed By: #### C BC #### [address] [place] [address] Basophils (Bld) [#/Vol] 0.1 10*3/uL Normal 0-0.1 [facility] Comment on above: Performed By: #### C BC #### [address] [place] [address] Eosinophils (Bld) [#/Vol] 0.1 10*3/uL Normal 0.0-1.80 [facility] Comment on above: Performed By: #### C BC #### [address] [place] [address] Eosinophils/100 WBC (Bld) 1.5 % Normal 0-8 [facility] Comment on above: Performed By: #### C BC #### [address] [place] [address] GRAN # 3.0 K/uL Normal 2.2-9.1 [facility] Comment on above: Performed By: #### C BC #### [address] [place] [address] GRAN % 58.7 % Normal 42-80 [facility] Comment on above: Performed By: #### C BC #### [address] [place] [address] Hematocrit (Bld) [Volume fraction] 37.2 % Low 41.0-53.0 [facility] Comment on above: Performed By: #### C BC #### [address] [place] [address] Hemoglobin (Bld) [Mass/Vol] 12.9 g/dL Low 14.0-18.0 [facility] Comment on above: Performed By: #### C BC #### [address] [place] [address] Lymphocytes (Bld) [#/Vol] 1.5 10*3/uL Normal 1.0-4.0 [facility] Comment on above: Performed By: #### C BC #### [facility] [address] [place] [address] Lymphocytes/100 WBC (Bld) 30.4 % Normal 16-48 [facility] Comment on above: Performed By: #### C BC #### [facility] [address] [place] [address] MCH (RBC) [Entitic mass] 34.7 g/dL Normal 31.0-36.0 [facility] Comment on above: Performed By: #### C BC #### [facility] [address] [place] [address] MCV (RBC) [Entitic vol] 98.2 fL High 80-97 [facility] Comment on above: Performed By: #### C BC #### [facility] [address] [place] [address] MEAN CORPUSCULAR HGB 34.1 pg High 26.0-32.0 [facility] Comment on above: Performed By: #### C BC #### [facility] [address] [place] [address] Monocytes (Bld) [#/Vol] 0.4 10*3/uL Normal 0.1-1.7 [facility] Comment on above: Performed By: #### C BC #### [facility] [address] [place] [address] Monocytes/100 WBC (Bld) 8.3 % Normal 3-9 [facility] Comment on above: Performed By: #### C BC #### [facility] [address] [facility] [place] [address] Platelet mean volume (Bld) [Entitic vol] 7.5 fL Normal 6.4-10.5 [facility] Comment on above: Performed By: #### C BC #### [facility] [address] [place] [address] Platelets (Bld) [#/Vol] 224 10*3/uL Normal 140-450 [facility] Comment on above: Performed By: #### C BC #### [facility] [address] [place] [address] RBC (Bld) [#/Vol] 3.79 10*6/uL Low 4.40-6.30 [facility] Comment on above: Performed By: #### C BC #### [facility] [address] [facility] [place] [address] RED CELL DISTRI WIDTH 13.4 % Normal 11.0-15.5 [facility] Comment on above: Performed By: #### C BC #### [facility] [address] [facility] [place] [address] WBC (Bld) [#/Vol] 5.1 10*3/uL Normal 4.0-11.0 [facility] Comment on above: Performed By: #### C BC #### [facility] [address] [facility] [place] [address] COMPREHENSIVE METABOLIC PANE Romario 06-27-2019 Albumin [Mass/Vol] 3.9 g/dL Normal 3.0-5.0 [facility] Comment on above: Performed By: #### M N, ALC #### [facility] [address] [place] [address] Albumin/Globulin [Mass ratio] 1.0 {ratio} Low 1.1-1.8 [facility] Comment on above: Performed By: #### M N, ALC #### [facility] [address] [place] [address] ALP [Catalytic activity/Vol] 169 U/L High 45-117 [facility] Comment on above: Performed By: #### M N, ALC #### [facility] [address] [place] [address] ALT [Catalytic activity/Vol] 30 U/L Normal 12-78 [facility] Comment on above: Performed By: #### M N, ALC #### [facility] [address] [place] [address] Anion gap [Moles/Vol] 13.6 mmol/L Normal 11-23 [facility] Comment on above: Performed By: #### M N, ALC #### [facility] [address] [place] [address] Bilirubin [Mass/Vol] 0.6 mg/dL Normal 0-1.0 [facility] Comment on above: Performed By: #### M N, ALC #### [address] [place] [address] Calcium [Mass/Vol] 8.4 mg/dL Low 8.5-10.1 [facility] Comment on above: Performed By: #### M N, ALC #### [facility] [address] [place] [address] Chloride [Moles/Vol] 102 mmol/L Normal 98-107 [facility] Comment on above: Performed By: #### M N, ALC #### [address] [place] [address] CO2 [Moles/Vol] 24.0 mmol/L Normal 21-32 [facility] Comment on above: Performed By: #### M N, ALC #### [address] [place] [address] Creatinine [Mass/Vol] 0.90 mg/dL Normal 0.4-1.2 [facility] Comment on above: Performed By: #### M N, ALC #### [address] [place] [address] GFR AM > 60.0 [facility] Comment on above: Result Comment: THE NORMAL LEVEL OF GFR VARIES ACCORDING TO AGE, SEX, AND BODY SIZE. A GFR LEVEL OF LESS THAN 60 ML/MIN REPRESENTS LOSS OF THE ADULT LEVEL OF NORMAL KIDNEY FUNCTION. Performed By: #### M N, ALC #### [address] [place] [address] GFR/1.73 sq M.predicted MDRD (S/P/Bld) [Vol rate/Area] mL/min/{1.73_m2} [facility] Comment on above: Performed By: #### M N, ALC #### [address] [place] [address] Globulin (S) [Mass/Vol] 3.8 g/dL Normal 2.5-4.6 [facility] Comment on above: Performed By: #### M N, ALC #### [address] [place] [address] Glucose [Mass/Vol] 106 mg/dL High 70-100 [facility] Comment on above: Performed By: #### M N, ALC #### [address] [place] [address] Potassium [Moles/Vol] 3.9 mmol/L Normal 3.6-5.2 [facility] Comment on above: Performed By: #### M N, ALC #### [facility] [address] [place] [address] Protein [Mass/Vol] 7.7 g/dL Normal 6.0-8.3 [facility] Comment on above: Performed By: #### M N, ALC #### [facility] [address] [place] [address] SGOT/AST 36 U/L High 9-34 [facility] Comment on above: Performed By: #### M N, ALC #### [facility] [address] [place] [address] Sodium [Moles/Vol] 136 mmol/L Normal 136-147 [facility] Comment on above: Performed By: #### M N, ALC #### [facility] [address] [place] [address] Urea nitrogen [Mass/Vol] 10.0 mg/dL Normal 7-18 [facility] Comment on above: Performed By: #### M N, ALC #### [facility] [address] [place] [address] ED.PDOCon 06-27-2019 ED.PDOC ARYAN VALLE Male [id number] Attending provider: [facility] [id number] Luciana Christian 1970 49 DOS: 06/27/19 Hx/Exam - History of Present Illness Chief Complaint: DETOX MEDICAL CLEARANCE Symptom Duration: 31 Symptom Duration: Year(s) Onset of Symptoms: Alcohol abuse for 31 yr, recent detox at [facility] last week Intensity: moderate (pain to right ribs, recent rib frature (5 ribs), dx 2 wks ago ) Quality: 30 pack of beer a day, now down to 6 12oz beers since release from [facility] Sxs/Pertinent Hx: h/o alcohol abuse, recent broken ribs, h/o seizures/HTN/Neuropathy/ vertigo Patient/Family Denies: fever, chills, CP, SOB, wheezing, coughing, N V Additional Comments: Patient admits to a history of seizures and states that his last seizure was approximately 2 days go. He is currently on Keppra for his seizures and sees his primary care doctor for management. He states that approximately 2 weeks ago he had a fall down stairs due to seizures and was evaluated at [facility] and diagnosed with 5 broken ribs on the right side. Patient states that he was at [facility] for 5 days and was released last Thursday. Since then he has cut down his alcohol consumption from 30 beers a day to approximately 6 beers a day. After detox treatment here he plans to go to residential treatment at [facility]. - Review of Systems All Other Systems: Pertinent Positives in HPI, All Other Systems Negative Constitutional: Denies: Fever, Chills Respiratory: Denies: Cough, Shortness of Breath, Sputum, Wheezing Cardiovascular: Denies: Chest Pain Gastrointestinal: Denies: Nausea, Vomiting, Abdominal Pain Neurological: Seizures Psychiatric: Anxiety, Depression. Denies: Suicidal Ideation - Past Medical History General History: Yes Anxiety, Yes TIA, Yes HTN, Yes Seizures, Yes Vertigo - Past Surgical History Surgical History: Yes Other - Social History Smoking Status: Former Smoker Living Conditions: Alone - Physical Exam General Appearance: awake, alert, no apparent distress Eyes: conjunctivae clear, no scleral icterus Head, Ears, Nose, and Throat: TMs normal, pharynx normal, EAC normal, nares clear, dry mucous membranes (mild) Neck: supple Respiratory: lungs clear, no wheezes/rhonchi/rales, no respiratory distress, chest wall tender (right anterior lateral chest wall ) Cardiovascular: regular rate, rhythm Abdomen/GI: non tender, soft, non-distended, normal bowel sounds Neurologic: speech clear/fluent Psychiatric: oriented x3, not clinically intoxicated Skin Exam: warm/dry, normal color, abrasion(s) (old healing abrasion to right anterior knee) - Source of History Source of History: Nursing Notes/Vital Signs/Triage Reviewed and Agree Note(s) - Physician Notes Additional Notes, See Orders for Details: 49-year-old male presents today requesting medical clearance for detox from chronic alcohol abuse. Patient states that he has been drinking daily for the last 31 years or so. He denies any other drug use. Admits to a history of anxiety and depression but denies any suicidal ideation. Patient was recently released from [facility] and plans to go to residential treatment after detoxing here. Patient admits to a history of 5 broken ribs for the last 2 weeks. He denies any increasing in pain, shortness of breath, wheezing, or cough. Denies any fevers, chills, nausea, vomiting. Vital signs are stable. CBC is a mild anemia of 12.9 and hematocrit of 37.2 otherwise within normal limits. CMP within normal limits. Magnesium level 2.1. Alcohol level of 83. Patient states that he has all of his medication here and is otherwise medically cleared for transfer to detox. Supervising physician Dr. Yeboah, patient seen by MEGHNA only. 06/27/19 15:28 EKG - EKG EKG Interpretation: Not Applicable Discharge Screen - Discharge Discharge Problem: Desire for detoxification, Alcohol abuse Disposition: [facility] Condition: Good Referrals: provider (Unknown),Unlisted [Primary Care Provider] - Dictated By: MEGHNA Nation Dictated Date/Time:06/27/19 1515 Electronically Signed Date/Time: 06/27/19 1746 [facility] MAGNESIUMon 06-27-2019 Magnesium [Mass/Vol] 2.1 mg/dL Normal 1.8-2.4 [facility] Comment on above: Performed By: #### M G #### [address] [address] Phenobarbitalon 06-20-2019 Phenobarbital [Mass/Vol] 27.7 ug/mL Normal 15.0-40.0 [facility] Comment on above: Performed By: #### P HNO3 #### [facility] [address] [place] [address] CR Chest Portableon 06-16-20 19 CR Chest Portable Patient Name: ARYAN SLATER Diagnostic Radiology Exam Date/Time 06/16/2019 14:34:13 EDT Exam CR Chest Portable Ordering Physician [id number] ANILA ARCE Accession Number [id number] CPT4 Codes 66670 () Reason For Exam rib fx Report PORTABLE CHEST X-RAY CLINICAL INDICATION: Rib fractures A portable frontal view of the chest was obtained. COMPARISON: None FINDINGS: The heart size is within normal limits. There is bilateral lower lobe atelectasis. No focal consolidation is seen. There is no pleural effusion or pneumothorax. There are mildly displaced fractures of the lateral aspect of the approximate left sixth, seventh, and eighth ribs. IMPRESSION: Bilateral basilar atelectasis. Mildly displaced fractures of the lateral aspect of the left sixth through eighth ribs. No evidence of pneumothorax. Report Dictated on Final Dictated: 06/16/2019 2:56 pm Dictating Physician: MD PERLA JONATHAN R Signed Date and Time: 06/16/2019 2:57 pm Signed by: MD PERLA JONATHAN R Transcribed Date and Time: 06/16/2019 2:56 Normal [facility] Comp Metabolic Panelon 06-16 ALT [Catalytic activity/Vol] 18 U/L Normal 13-69 [facility] Comment on above: Performed By: #### H EMOG, CMP3, ETOH4 #### [facility] [address] [place], [place] Calcium [Mass/Vol] 10.2 mg/dL Normal 8.4-10.4 [facility] Comment on above: Performed By: #### H EMOG, CMP3, ETOH4 #### [facility] [address] [place], [place] Glucose [Mass/Vol] 101 mg/dL High 70-100 [facility] Comment on above: Performed By: #### H EMOG, CMP3, ETOH4 #### [facility] [address] [place], [place] ALP [Catalytic activity/Vol] 74 U/L Normal 38-126 [facility] Comment on above: Performed By: #### H EMOG, CMP3, ETOH4 #### [facility] [address] [place], [place] Anion gap [Moles/Vol] 14 Normal [facility] Comment on above: Performed By: #### H EMOG, CMP3, ETOH4 #### [facility] [address] [place], [place] AST [Catalytic activity/Vol] 38 U/L Normal 15-46 [facility] Comment on above: Performed By: #### H EMOG, CMP3, ETOH4 #### [facility] [address] [place], [place] Bilirubin [Mass/Vol] 1.4 mg/dL High 0.2-1.3 [facility] Comment on above: Performed By: #### H EMOG, CMP3, ETOH4 #### [facility] [address] [place], [place] CO2 [Moles/Vol] 25 mmol/L Normal 22-30 [facility] Comment on above: Performed By: #### H EMOG, CMP3, ETOH4 #### [place] [address] [address] [place], [place] Creatinine [Mass/Vol] 0.92 mg/dL Normal 0.52-1.25 [facility] Comment on above: Performed By: #### H EMOG, CMP3, ETOH4 #### [place] [address] [address] [place], [place] GFR/1.73 sq M predicted among blacks MDRD (S/P/Bld) [Vol rate/Area] mL/min/{1.73_m2} Normal >60 [facility] Comment on above: Performed By: #### H EMOG, CMP3, ETOH4 #### [place] [address] [address] [place], [place] GFR/1.73 sq M predicted among non-blacks MDRD (S/P/Bld) [Vol rate/Area] mL/min/{1.73_m2} Normal >60 [facility] Comment on above: Result Comment: Sour ce- MDRD equation with creatinine calibration to IDMS(NKDEP) eGFR not recommended for drug dose adjustment Performed By: #### H EMOG, CMP3, ETOH4 #### [place] [address] [address] [place], [place] Protein [Mass/Vol] 8.6 g/dL High 6.3-8.2 [facility] Comment on above: Performed By: #### H EMOG, CMP3, ETOH4 #### [place] [address] [address] [place], [place] Urea nitrogen [Mass/Vol] 12 mg/dL Normal 7-20 [facility] Comment on above: Performed By: #### H EMOG, CMP3, ETOH4 #### [place] [address] [address] [place], [place] Chloride [Moles/Vol] 100 mmol/L Normal 98-107 [facility] Comment on above: Performed By: #### H EMOG, CMP3, ETOH4 #### [facility] [address] [place], [place] Potassium [Moles/Vol] 4.8 mmol/L Normal 3.5-5.1 [facility] Comment on above: Performed By: #### H EMOG, CMP3, ETOH4 #### [facility] [address] [place], [place] Sodium [Moles/Vol] 140 mmol/L Normal 135-145 [facility] Comment on above: Performed By: #### H EMOG, CMP3, ETOH4 #### [facility] [address] [place], [place] Albumin [Mass/Vol] 4.8 g/dL Normal 3.5-5.0 [facility] Comment on above: Performed By: #### H EMOG, CMP3, ETOH4 #### [facility] [address] [place], [place] Drugs of Abuseon 06-16-2019 Phencyclidine (PCP), Ur Negative Normal [facility] Comment on above: Result Comment: The expected value for all of the drugs listed above is Negative. The following drugs or drug groups have been screened for by Immunoassay at the following thresholds: Amphetamine class (1000 ng/mL), Barbiturates (200 ng/mL), Benzodiazepines (200 ng/mL), Cocaine (300 ng/mL), Methadone (300 ng/mL), Opiates (300 ng/mL), Oxycodone (100 ng/mL), and PCP (25 ng/mL). NOTE: These results are for medical treatment only. Analysis performed using non-forensic procedures. POSITIVE results are NOT confirmed by a more specific alternative method unless requested. If confirmation is needed, request confirmation under separate order. Performed By: #### D RGA4 #### [facility] [address] [place], [place] Methadone, Ur Negative Normal [facility] Comment on above: Performed By: #### D RGA4 #### [facility] [address] [place] [address] Opiates, Ur Positive Normal [facility] Comment on above: Performed By: #### D RGA4 #### [facility] [address] [place], [place] Cocaine, Ur Negative Normal [facility] Comment on above: Performed By: #### D RGA4 #### [facility] [address] [place], [place] Barbiturates, Ur Negative Normal [facility] Comment on above: Performed By: #### D RGA4 #### [facility] [address] [facility], [place] Benzodiazepines, Ur Negative Normal [facility] Comment on above: Performed By: #### D RGA4 #### [facility] [address] [facility], [place] Amphetamines, Ur Negative Normal [facility] Comment on above: Performed By: #### D RGA4 #### [facility] [address] [place], [place] Oxycodone/Oxymorphine,U r Negative Normal [facility] Comment on above: Performed By: #### D RGA4 #### [facility] [address] [place], [place] Ethanol Serum/Plasmaon 06-16 Ethanol-Serum/Plasma 0.024 g/dL High 0.000-0.010 [facility] Comment on above: Result Comment: NOTE : This result is for medical treatment only. Analysis performed using non-forensic procedures. Performed By: #### H LESTER CMP3, ETOH4 #### [facility] [address] [place], [place] Hemogramon 06-16-2019 Erythrocyte distribution width (RBC) [Ratio] 13.7 % Normal 11.5-14.5 [facility] Comment on above: Performed By: #### H LESTER, CMP3, ETOH4 #### [facility] [address] [place], [place] Hematocrit (Bld) [Volume fraction] 41.7 % Normal 40.0-52.0 [facility] Comment on above: Performed By: #### H EMOG, CMP3, ETOH4 #### [facility] [address] [place], [place] Hemoglobin (Bld) [Mass/Vol] 14.4 g/dL Normal 13.0-18.0 [facility] Comment on above: Performed By: #### H EMOG, CMP3, ETOH4 #### [facility] [address] [place], [place] MCH (RBC) [Entitic mass] 34.2 pg High 26.0-34.0 [facility] Comment on above: Performed By: #### H EMOG, CMP3, ETOH4 #### [place] [address] [address] [place], [place] MCHC (RBC) [Mass/Vol] 34.6 % Normal 32.0-36.0 [facility] Comment on above: Performed By: #### H EMOG, CMP3, ETOH4 #### [place] [address] [address] [place], [place] MCV (RBC) [Entitic vol] 98.8 fL High 80.0-98.0 [facility] Comment on above: Performed By: #### H EMOG, CMP3, ETOH4 #### [place] [address] [address] [place], [place] Platelet mean volume (Bld) [Entitic vol] 7.9 fL Normal 7.4-10.4 [facility] Comment on above: Performed By: #### H EMOG, CMP3, ETOH4 #### [place] [address] [address] [place], [place] Platelets (Bld) [#/Vol] 167 10*3/uL Normal 140-440 [facility] Comment on above: Performed By: #### H EMOG, CMP3, ETOH4 #### [place] [address] [address] [place], [place] RBC (Bld) [#/Vol] 4.22 10*6/uL Low 4.40-5.90 [facility] Comment on above: Performed By: #### H EMOG, CMP3, ETOH4 #### [place] [address] [address] [place], [place] WBC (Bld) [#/Vol] 7.4 10*3/uL Normal 3.6-10.7 [employer] Comment on above: Performed By: #### H LESTER, CMP3, ETOH4 #### [facility] [address] [place] [address] Vital Signs Date Time Vital Sign Value Performing Clinician Facility 05-05-2025 12:58-0400 Body height 180.3 cm Sindymarycruz Cesar RN Work Phone: [facility] 05-05-2025 12:58-0400 Body mass index (BMI) [Ratio] 25.8 kg/m2 Sindy Most RN Work Phone: [facility] 05-05-2025 12:58-0400 Body temperature 99.5 [degF] Sindy Most RN Work Phone: [facility] 05-05-2025 12:58-0400 Body weight 83.92 kg Sindymarycruz Cesar RN Work Phone: [facility] 05-05-2025 12:58-0400 Diastolic blood pressure 58 mm[Hg] Sindy Most RN Work Phone: [facility] 05-05-2025 12:58-0400 Heart rate 80 /min Sindy Most RN Work Phone: [facility] 05-05-2025 12:58-0400 Respiratory rate 20 /min Sindy Most RN Work Phone: [facility] 05-05-2025 12:58-0400 SaO2% (BldA) [Mass fraction] 92 % Sindy Most RN Work Phone: [facility] 05-05-2025 12:58-0400 Systolic blood pressure 112 mm[Hg] Sindy Cesar RN Work Phone: [facility] 04-07-2025 23:23-0400 Body temperature 98 [degF] Dr. Tana Farmer MD Work Phone: [facility] 04-07-2025 23:23-0400 Diastolic blood pressure 82 mm[Hg] Dr. Tana Farmer MD Work Phone: [facility] 04-07-2025 23:23-0400 Heart rate 62 /min Dr. Tana Farmer MD Work Phone: [facility] 04-07-2025 23:23-0400 Respiratory rate 18 /min Dr. Tana Farmer MD Work Phone: [facility] 04-07-2025 23:23-0400 SaO2% (BldA) [Mass fraction] 91 % Dr. Tana Farmer MD Work Phone: [facility] 04-07-2025 23:23-0400 Systolic blood pressure 128 mm[Hg] Dr. Tana Farmer MD Work Phone: [facility] 04-07-2025 19:30-0400 Body height 180.[address] Tana Farmer MD Work Phone: [facility] 04-07-2025 19:30-0400 Body mass index (BMI) [Ratio] 28.9 kg/m2 Dr. Tana Farmer MD Work Phone: [facility] 04-07-2025 19:30-0400 Body weight [address] Tana Farmer MD Work Phone: [facility] 03-30-2025 10:34-0400 Diastolic blood pressure 53 mm[Hg] Dr. Tana Farmer MD Work Phone: [facility] 03-30-2025 10:34-0400 Heart rate 77 /min Dr. Tana Farmer MD Work Phone: [facility] 03-30-2025 10:34-0400 Respiratory rate 18 /min Dr. Tana Farmer MD Work Phone: [facility] 03-30-2025 10:34-0400 Systolic blood pressure 103 mm[Hg] Dr. Tana Farmer MD Work Phone: [facility] 03-24-2025 11:02-0400 Body height 180.[address] Tana Farmer MD Work Phone: [facility] 03-24-2025 11:02-0400 Body mass index (BMI) [Ratio] 30.6 kg/m2 Dr. Tana Farmer MD Work Phone: [facility] 03-24-2025 11:02-0400 Body temperature 99.1 [degF] Dr. Tana Farmer MD Work Phone: [facility] 03-24-2025 11:02-0400 Body weight 99.[address] Tana Farmer MD Work Phone: [facility] 03-24-2025 11:02-0400 Diastolic blood pressure 42 mm[Hg] Dr. Tana Farmer MD Work Phone: [facility] 03-24-2025 11:02-0400 Heart rate 89 /min Dr. Tana Farmer MD Work Phone: [facility] 03-24-2025 11:02-0400 Respiratory rate 16 /min Dr. Tana Farmer MD Work Phone: [facility] 03-24-2025 11:02-0400 SaO2% (BldA) [Mass fraction] 94 % Dr. Tana Farmer MD Work Phone: [facility] 03-24-2025 11:02-0400 Systolic blood pressure 98 mm[Hg] Dr. Tana Farmer MD Work Phone: [facility] 03-15-2025 15:07-0400 Body temperature 98.01 [degF] Jensen Cabello DO Work Phone: [facility] 03-15-2025 15:07-0400 Diastolic blood pressure 75 mm[Hg] Jensen Cabello DO Work Phone: [facility] 03-15-2025 15:07-0400 Heart rate 84 /min Jensen Butson DO Work Phone: [facility] 03-15-2025 15:07-0400 SaO2% (BldA) [Mass fraction] 98 % Jensen Butson DO Work Phone: [facility] 03-15-2025 15:07-0400 Systolic blood pressure 120 mm[Hg] Jensen Butson DO Work Phone: [facility] 03-15-2025 08:40-0400 Respiratory rate 16 /min Jensen Butson DO Work Phone: [facility] 03-15-2025 05:00-0400 Body mass index (BMI) [Ratio] 32.04 kg/m2 Jensen Butson DO Work Phone: [facility] 03-15-2025 05:00-0400 Body weight 104.2 kg Jensen Butson DO Work Phone: [facility] 03-14-2025 11:03-0400 Body height 180.3 cm Jensen Butson DO Work Phone: [facility] 12-23-2024 09:45-0500 Body mass index (BMI) [Ratio] 30.5 kg/m2 Dr. Tana Farmer MD Work Phone: [facility] 12-23-2024 09:45-0500 Body temperature 97.2 [degF] Dr. Tana Farmer MD Work Phone: [facility] 12-23-2024 09:45-0500 Body weight 99.[address] Tana Farmer MD Work Phone: [facility] 12-23-2024 09:45-0500 Diastolic blood pressure 74 mm[Hg] Dr. Tana Farmer MD Work Phone: [facility] 12-23-2024 09:45-0500 Heart rate 77 /min Dr. Tana Farmer MD Work Phone: [facility] 12-23-2024 09:45-0500 Respiratory rate 18 /min Dr. Tana Farmer MD Work Phone: [facility] 12-23-2024 09:45-0500 SaO2% (BldA) [Mass fraction] 97 % Dr. Tana Farmer MD Work Phone: [facility] 12-23-2024 09:45-0500 Systolic blood pressure 109 mm[Hg] Dr. Tana Farmer MD Work Phone: [facility] 12-16-2024 09:04-0500 Body mass index (BMI) [Ratio] 31.9 kg/m2 Dr. Tana Farmer MD Work Phone: [facility] 12-16-2024 09:04-0500 Body temperature 98.1 [degF] Dr. Tana Farmer MD Work Phone: [facility] 12-16-2024 09:04-0500 Body weight 103.[address] Tana Farmer MD Work Phone: [facility] 12-16-2024 09:04-0500 Diastolic blood pressure 60 mm[Hg] Dr. Tana Farmer MD Work Phone: [facility] 12-16-2024 09:04-0500 Heart rate 78 /min Dr. Tana Farmer MD Work Phone: [facility] 12-16-2024 09:04-0500 Respiratory rate 16 /min Dr. Tana Farmer MD Work Phone: [facility] 12-16-2024 09:04-0500 SaO2% (BldA) [Mass fraction] 98 % Dr. Tana Farmer MD Work Phone: [facility] 12-16-2024 09:04-0500 Systolic blood pressure 130 mm[Hg] Dr. Tana Farmer MD Work Phone: [facility] 09-20-2024 10:57-0400 Body temperature 97.7 [degF] Christian Guerrero WARP DYEING VAT TENDER.ARMATURE CONNECTOR Work Phone: [facility] 09-20-2024 10:57-0400 Body weight 100 kg Christian Guerrero APRN.ARMATURE CONNECTOR Work Phone: [facility] 09-20-2024 10:57-0400 Diastolic blood pressure 77 mm[Hg] Christian Guerrero WARP DYEING VAT TENDER.ARMATURE CONNECTOR Work Phone: [facility] 09-20-2024 10:57-0400 Heart rate 77 /min Christian Guerrero WARP DYEING VAT TENDER.ARMATURE CONNECTOR Work Phone: [facility] 09-20-2024 10:57-0400 Respiratory rate 20 /min Christian Guerrero WARP DYEING VAT TENDER.ARMATURE CONNECTOR Work Phone: [facility] 09-20-2024 10:57-0400 SaO2% (BldA) [Mass fraction] 98 % Christian Guerrero WARP DYEING VAT TENDER.ARMATURE CONNECTOR Work Phone: [facility] 09-20-2024 10:57-0400 Systolic blood pressure 117 mm[Hg] Christian Guerrero WARP DYEING VAT TENDER.ARMATURE CONNECTOR Work Phone: [facility] 06-14-2024 09:24-0400 Body temperature 98.01 [degF] Alisha Lagos WARP DYEING VAT TENDER.ARMATURE CONNECTOR Work Phone: [facility] 06-14-2024 09:24-0400 Body weight 102 kg Alisha Lagos APRN.ARMATURE CONNECTOR Work Phone: [facility] 06-14-2024 09:24-0400 Diastolic blood pressure 80 mm[Hg] Alisha Lagos APRN.ARMATURE CONNECTOR Work Phone: [facility] 06-14-2024 09:24-0400 Heart rate 79 /min Alisha Lagos APRN.ARMATURE CONNECTOR Work Phone: [facility] 06-14-2024 09:24-0400 Respiratory rate 20 /min Alisha Lagos APRN.ARMATURE CONNECTOR Work Phone: [facility] 06-14-2024 09:24-0400 SaO2% (BldA) [Mass fraction] 97 % Alisha Lagos APRN.ARMATURE CONNECTOR Work Phone: [facility] 06-14-2024 09:24-0400 Systolic blood pressure 120 mm[Hg] Alisha Lagos APRN.ARMATURE CONNECTOR Work Phone: [facility] 01-04-2024 10:15-0500 Body height 182.[address] Tana Farmer Work Phone: [facility] 01-04-2024 10:15-0500 Body mass index (BMI) [Ratio] 29.7 kg/m2 Dr. Tana Farmer Work Phone: [facility] 01-04-2024 10:15-0500 Body temperature 97.7 [degF] Dr. Tana Farmer Work Phone: [facility] 01-04-2024 10:15-0500 Body weight 99.[address] Tana Farmer Work Phone: [facility] 01-04-2024 10:15-0500 Diastolic blood pressure 60 mm[Hg] Dr. Tana Farmer Work Phone: [facility] 01-04-2024 10:15-0500 Heart rate 80 /min Dr. Tana Farmer Work Phone: [facility] 01-04-2024 10:15-0500 Respiratory rate 16 /min Dr. Tana Farmer Work Phone: [facility] 01-04-2024 10:15-0500 SaO2% (BldA) [Mass fraction] 98 % Dr. Tana Farmer Work Phone: [facility] 01-04-2024 10:15-0500 Systolic blood pressure 124 mm[Hg] Dr. Tana Farmer Work Phone: [facility] 09-30-2023 11:23-0500 Body height 182.[address] Tana Farmer Work Phone: [facility] 09-30-2023 11:23-0500 Body mass index (BMI) [Ratio] 24.8 kg/m2 Dr. Tana Farmer Work Phone: [facility] 09-30-2023 11:23-0500 Body temperature 97.6 [degF] Dr. Tana Farmer Work Phone: [facility] 09-30-2023 11:23-0500 Body weight 83.[address] Tana Farmer Work Phone: [facility] 09-30-2023 11:23-0500 Diastolic blood pressure 93 mm[Hg] Dr. Tana Faremr Work Phone: [facility] 09-30-2023 11:23-0500 Heart rate 102 /min Dr. Tana Farmer Work Phone: [facility] 09-30-2023 11:23-0500 Respiratory rate 16 /min Dr. Tana Farmer Work Phone: [facility] 09-30-2023 11:23-0500 SaO2% (BldA) [Mass fraction] 99 % Dr. Tana Farmer Work Phone: [facility] 09-30-2023 11:23-0500 Systolic blood pressure 149 mm[Hg] Dr. Tana Farmer Work Phone: [facility] 08-26-2023 13:50-0400 Body mass index (BMI) [Ratio] 27.6 kg/m2 Dr. Tana Farmer Work Phone: [facility] 08-26-2023 13:50-0400 Body temperature 98.4 [degF] Dr. Tana Farmer Work Phone: [facility] 08-26-2023 13:50-0400 Body weight 92.[address] Tana Farmer Work Phone: [facility] 08-26-2023 13:50-0400 Diastolic blood pressure 72 mm[Hg] Dr. Tana Farmer Work Phone: [facility] 08-26-2023 13:50-0400 Heart rate 85 /min Dr. Tana Farmer Work Phone: [facility] 08-26-2023 13:50-0400 Respiratory rate 16 /min Dr. Tana Farmer Work Phone: [facility] 08-26-2023 13:50-0400 SaO2% (BldA) [Mass fraction] 97 % Dr. Tana Farmer Work Phone: [facility] 08-26-2023 13:50-0400 Systolic blood pressure 108 mm[Hg] Dr. Tana Farmer Work Phone: [facility] 07-30-2023 14:13-0400 Body height 182.[address] Tana Farmer Work Phone: [facility] 07-30-2023 14:13-0400 Body mass index (BMI) [Ratio] 27.1 kg/m2 Dr. Tana Farmer Work Phone: [facility] 07-30-2023 14:13-0400 Body temperature 96.1 [degF] Dr. Tana Farmer Work Phone: [facility] 07-30-2023 14:13-0400 Body weight 90.[address] Tana Farmer Work Phone: [facility] 07-30-2023 14:13-0400 Diastolic blood pressure 66 mm[Hg] Dr. Tana Farmer Work Phone: [facility] 07-30-2023 14:13-0400 Heart rate 85 /min Dr. Tana Farmer Work Phone: [facility] 07-30-2023 14:13-0400 Respiratory rate 18 /min Dr. Tana Farmer Work Phone: [facility] 07-30-2023 14:13-0400 SaO2% (BldA) [Mass fraction] 98 % Dr. Tana Farmer Work Phone: [facility] 07-30-2023 14:13-0400 Systolic blood pressure 112 mm[Hg] Dr. Tana Farmer Work Phone: [facility] 07-18-2023 11:56-0400 Body temperature 98.2 [degF] Dr. Tana Farmer Work Phone: [facility] 07-18-2023 11:56-0400 Diastolic blood pressure 61 mm[Hg] Dr. Tana Farmer Work Phone: [facility] 07-18-2023 11:56-0400 Heart rate 95 /min Dr. Tana Farmer Work Phone: [facility] 07-18-2023 11:56-0400 Respiratory rate 18 /min Dr. Tana Farmer Work Phone: [facility] 07-18-2023 11:56-0400 SaO2% (BldA) [Mass fraction] 98 % Dr. Tana Farmer Work Phone: [facility] 07-18-2023 11:56-0400 Systolic blood pressure 105 mm[Hg] Dr. Tana Farmer Work Phone: [facility] 07-18-2023 04:05-0400 Body mass index (BMI) [Ratio] 29 kg/m2 Dr. Tana Farmer Work Phone: [facility] 07-18-2023 04:05-0400 Body weight 97.[address] Tana Farmer Work Phone: [facility] 07-17-2023 13:18-0400 Body height 182.[address] Tana Farmer Work Phone: [facility] 07-16-2023 16:22-0400 Diastolic blood pressure 74 mm[Hg] Dr. Tana Farmer Work Phone: [facility] 07-16-2023 16:22-0400 Heart rate 96 /min Dr. Tana Farmer Work Phone: [facility] 07-16-2023 16:22-0400 Respiratory rate 18 /min Dr. Tana Farmer Work Phone: [facility] 07-16-2023 16:22-0400 SaO2% (BldA) [Mass fraction] 98 % Dr. Tana Farmer Work Phone: [facility] 07-16-2023 16:22-0400 Systolic blood pressure 117 mm[Hg] Dr. Tana Farmer Work Phone: [facility] 07-16-2023 15:44-0400 Body temperature 97.2 [degF] Dr. Tana Farmer Work Phone: [facility] 07-16-2023 12:13-0400 Body height 182.[address] Tana Farmer Work Phone: [facility] 07-16-2023 12:13-0400 Body mass index (BMI) [Ratio] 29.7 kg/m2 Dr. Tana Farmer Work Phone: [facility] 07-16-2023 12:13-0400 Body weight 99.[address] Tana Farmer Work Phone: [facility] 07-15-2023 09:48-0400 Body mass index (BMI) [Ratio] 29.4 kg/m2 Dr. Tana Farmer Work Phone: [facility] 07-15-2023 09:48-0400 Body temperature 98.9 [degF] Dr. Tana Farmer Work Phone: [facility] 07-15-2023 09:48-0400 Body weight 98.[address] Tana Farmer Work Phone: [facility] 07-15-2023 09:48-0400 Diastolic blood pressure 70 mm[Hg] Dr. Tana Farmer Work Phone: [facility] 07-15-2023 09:48-0400 Heart rate 96 /min Dr. Tana Farmer Work Phone: [facility] 07-15-2023 09:48-0400 Respiratory rate 16 /min Dr. Tana Farmer Work Phone: [facility] 07-15-2023 09:48-0400 SaO2% (BldA) [Mass fraction] 99 % Dr. Tana Farmer Work Phone: [facility] 07-15-2023 09:48-0400 Systolic blood pressure 120 mm[Hg] Dr. Tana Farmer Work Phone: [facility] 06-18-2023 14:23-0400 Body height 182.[address] Tana Farmer Work Phone: [facility] 06-18-2023 14:23-0400 Body mass index (BMI) [Ratio] 28 kg/m2 Dr. Tana Farmer Work Phone: [facility] 06-18-2023 14:23-0400 Body temperature 97.5 [degF] Dr. Tana Farmer Work Phone: [facility] 06-18-2023 14:23-0400 Body weight 93.[address] Tana Farmer Work Phone: [facility] 06-18-2023 14:23-0400 Diastolic blood pressure 64 mm[Hg] Dr. Tana Farmer Work Phone: [facility] 06-18-2023 14:23-0400 Heart rate 102 /min Dr. Tana Farmer Work Phone: [facility] 06-18-2023 14:23-0400 Respiratory rate 18 /min Dr. Tana Farmer Work Phone: [facility] 06-18-2023 14:23-0400 SaO2% (BldA) [Mass fraction] 99 % Dr. Tana Farmer Work Phone: [facility] 06-18-2023 14:23-0400 Systolic blood pressure 98 mm[Hg] Dr. Tana Farmer Work Phone: [facility] 06-11-2023 11:56-0400 Body temperature 98.49 [degF] Krislyn Aberegg PA Work Phone: [facility] 06-11-2023 11:56-0400 Body weight 96.07 kg Krislyn Aberegg PA Work Phone: [facility] 06-11-2023 11:56-0400 Diastolic blood pressure 88 mm[Hg] Krislyn Aberegg PA Work Phone: [facility] 06-11-2023 11:56-0400 Heart rate 97 /min Krislyn Aberegg PA Work Phone: [facility] 06-11-2023 11:56-0400 Respiratory rate 18 /min Krislyn Aberegg PA Work Phone: [facility] 06-11-2023 11:56-0400 SaO2% (BldA) [Mass fraction] 97 % Krislyn Aberegg PA Work Phone: [facility] 06-11-2023 11:56-0400 Systolic blood pressure 138 mm[Hg] Krislyn Aberegg PA Work Phone: [facility] 04-15-2022 14:19-0400 Body height 182.[address] Tana Farmer Work Phone: [facility] Work Phone: 04-15-2022 14:19-0400 Body mass index (BMI) [Ratio] 30.6 kg/m2 Dr. Tana Farmer Work Phone: [facility] Work Phone: 04-15-2022 14:19-0400 Body temperature 97.3 [degF] Dr. Tana Farmer Work Phone: [facility] Work Phone: 04-15-2022 14:19-0400 Body weight 102.[address] Tana Farmer Work Phone: [facility] Work Phone: 04-15-2022 14:19-0400 Diastolic blood pressure 84 mm[Hg] Dr. Tana Farmer Work Phone: [facility] Work Phone: 04-15-2022 14:19-0400 Heart rate 78 /min Dr. Tana Farmer Work Phone: [facility] Work Phone: 04-15-2022 14:19-0400 Respiratory rate 14 /min Dr. Tana Farmer Work Phone: [facility] Work Phone: 04-15-2022 14:19-0400 SaO2% (BldA) [Mass fraction] 97 % Dr. Tana Farmer Work Phone: [facility] Work Phone: 04-15-2022 14:19-0400 Systolic blood pressure 116 mm[Hg] Dr. Tana Farmer Work Phone: [facility] Work Phone: 01-08-2022 16:40-0500 Body mass index (BMI) [Ratio] 30.5 kg/m2 Dr. Tana Farmer Work Phone: [facility] Work Phone: 01-08-2022 16:40-0500 Body temperature 97.9 [degF] Dr. Tana Farmer Work Phone: [facility] Work Phone: 01-08-2022 16:40-0500 Body weight 102.[address] Tana Farmer Work Phone: [facility] Work Phone: 01-08-2022 16:40-0500 Diastolic blood pressure 80 mm[Hg] Dr. Tana Farmer Work Phone: [facility] Work Phone: 01-08-2022 16:40-0500 Heart rate 90 /min Dr. Tana Farmer Work Phone: [facility] Work Phone: 01-08-2022 16:40-0500 Respiratory rate 14 /min Dr. Tana Farmer Work Phone: [facility] Work Phone: 01-08-2022 16:40-0500 SaO2% (BldA) [Mass fraction] 97 % Dr. Tana Farmer Work Phone: [facility] Work Phone: 01-08-2022 16:40-0500 Systolic blood pressure 124 mm[Hg] Dr. Tana Farmer Work Phone: [facility] Work Phone: Encounters Encounter Date Encounter Type Care Provider Facility Start: 05-05-2025 End: 05-05-2025 Home visit Ida Dyer MARIBEL Work Phone: [facility] Comment on above: DIRECTOR WORK CARE COORDINATIO N CARE COORDINATION DIRECTOR WORK EVAL SN SOC Start: 05-04-2025 End: 05-04-2025 Telephone encounter Amy Edge IRONWORKER FOREMAN Work Phone: [facility] Comment on above: Home Care (SOC delay / APPROVAL NEEDED) Home Care (SOC sched uling - SOC 05/07) Start: 05-03-2025 End: 05-03-2025 Home visit Sindy Cesar RN Work Phone: [facility] Comment on above: SN ATTEMPTED VISIT Start: 04-27-2025 End: 04-28-2025 Telephone encounter Renee Corraleseliana Flores [employer] Work Phone: [facility] Comment on above: Home Care (Confirmat ion Call) Home Care ( to ahsan ramirez ) Start: 04-08-2025 End: 05-02-2025 Evaluation and management of inpatient [facility] Facility:[facility] Start: 04-07-2025 End: 04-07-2025 Emergency department patient visit Dr. Tana Farmer MD Work Phone: -Emergency Department Work Phone: Start: 03-30-2025 End: 03-30-[address] Tana Farmer MD Work Phone: [facility] Work Phone: Start: 03-30-2025 End: 03-30-[address] Tana Farmer MD -Ultrasound, [facility] Work Phone: Start: 03-30-2025 End: 03-30-2025 ambulatory [facility] Facility:[facility] Start: 03-24-2025 End: 03-24-[address] Tana Farmer MD -[facility] Work Phone: Start: 03-24-2025 End: 03-24-2025 ambulatory [facility] Facility:[facility] Start: 03-21-2025 End: 03-21-2025 Patient encounter procedure Brian Crawford APRN.ARMATURE CONNECTOR Work Phone: [facility] Comment on above: Procedure not aruna d out (Primary Dx) Start: 03-21-2025 End: 03-21-2025 ambulatory BRIAN CRAWFORD Facility:[facility] Start: 03-13-2025 End: 03-15-2025 Evaluation and management of inpatient Jesus Alberto Lindsay MD Work Phone: [facility] Start: 03-11-2025 End: 03-11-2025 Emergency department patient visit TAYEYUNG CABALLERO [facility] Start: 03-07-2025 End: 03-07-2025 Emergency department patient visit TANA FARMER Facility:[facility] Start: 02-24-2025 End: 02-24-2025 Emergency department patient visit TANA FARMER Facility:[facility] Start: 12-23-2024 End: 12-23-[address] Huber Arellano MD -[facility] Work Phone: Start: 12-23-2024 End: 12-23-2024 ambulatory Huber Arellano Facility:[facility] Start: 12-16-2024 End: 12-16-[address] Tana Farmer MD -Laboratory, [place] Start: 12-16-2024 End: 12-16-[address] Tana Farmer MD -[facility] Work Phone: Start: 12-16-2024 End: 12-16-2024 ambulatory Tana Yuane Facility:[facility] Start: 12-16-2024 End: 12-16-2024 [facility] Start: 11-24-2024 End: 11-24-2024 Emergency department [facility] Facility:[facility] Start: 11-11-2024 ambulatory Efewsand point[facility] Kwabenae Facili ty:[facility] Start: 10-26-2024 End: 10-26-2024 ambulatory [facility] Start: 10-17-2024 End: 10-17-2024 Emergency department patient visit [facility] Facility:[facility] Start: 09-20-2024 End: 09-20-2024 Emergency department patient visit [facility] Facility:[facility] Start: 09-20-2024 End: 09-20-2024 ambulatory [facility] Facility:[facility] Start: 09-20-2024 End: 09-20-2024 Patient encounter procedure Christian Guerrero APRN.ARMATURE CONNECTOR Work Phone: [facility] Comment on above: Left inguinal pain ( Primary Dx) Start: 06-24-2024 End: 06-24-2024 ambulatory [facility] Facility:[facility] Start: 06-24-2024 End: 06-24-2024 ambulatory [facility] Facility:[facility] Start: 06-14-2024 End: 06-14-2024 ambulatory [facility] Facility:[facility] Start: 06-14-2024 End: 06-14-2024 Patient encounter procedure Alisha Lgaos APRN.ARMATURE CONNECTOR Work Phone: [facility] Comment on above: Skin infection (Prim sandra Dx); Pain Start: 06-02-2024 End: 06-02-2024 ambulatory [facility] Facility:[facility] Start: 02-29-2024 End: 02-29-[address] Tana Farmer Work Phone: [facility] Work Phone: Start: 02-29-2024 End: 02-29-[address] Tana Farmer Work Phone: [facility] Work Phone: Start: 01-04-2024 End: 01-04-[address] Tana Farmer Work Phone: [facility] Work Phone: Start: 01-04-2024 End: 01-04-[address] Tana Farmer Work Phone: [facility] Start: 01-04-2024 End: 01-04-[address] aTna Farmer Work Phone: [facility] Work Phone: Start: 12-28-[address] Geraldine Farmer Work Phone: [facility]Occupational Therapy Work Phone: Start: 09-30-2023 End: 09-30-2023 Emergency department patient visit Dr. Tana Farmer Work Phone: [facility] Work Phone: Start: 09-30-2023 End: 09-30-2023 Dr. Tana Farmer Work Phone: [facility]Emergency Department Work Phone: Start: 08-26-2023 End: 08-26-2023 Dr. Tana Farmer Work Phone: [facility] Work Phone: Start: 07-30-2023 End: 07-30-[address] Tana Farmer Work Phone: [facility] Work Phone: Start: 07-30-2023 End: 07-30-[address] Tana Farmer Work Phone: [facility] Work Phone: Start: 07-30-2023 End: 07-30-2023 Dr. Tana Farmer Work Phone: [facility] Work Phone: Start: 07-18-2023 Non-patient / Non-visit Dr. Fifi Farmer Work Phone: [facility] Start: 07-18-2023 Dr. Tana Farmer Work Phone: [facility] Start: 07-18-2023 Non-patient / Non-visit Dr. Fifi Farmer Work Phone: [facility] Work Phone: Start: 07-18-2023 Dr. Tana Farmer Work Phone: [facility] Work Phone: Start: 07-17-2023 Non-patient / Non-visit Dr. Fifi Farmer Work Phone: [facility] Start: 07-17-2023 Dr. Tana Farmer Work Phone: [facility] Start: 07-17-2023 Non-patient / Non-visit Dr. Fifi Farmer Work Phone: [facility] Work Phone: Start: 07-17-2023 Dr. Tana Farmer Work Phone: [facility] Work Phone: Start: 07-16-2023 Non-patient / Non-visit Dr. Fifi Farmer Work Phone: [facility] Start: 07-16-2023 End: 07-18-2023 Evaluation and management of inpatient Dr. Tana Farmer Work Phone: [facility] Work Phone: Start: 07-16-2023 End: 07-18-2023 Dr. Tana Farmer Work Phone: [facility] Work Phone: Start: 07-15-2023 End: 07-15-[address] Tana Farmer Work Phone: [facility] Work Phone: Start: 07-15-2023 End: 07-15-[address] Tana Farmer Work Phone: [facility] Work Phone: Start: 07-15-2023 End: 07-15-2023 Dr. Tana Farmer Work Phone: [facility] Work Phone: Start: 06-19-2023 End: 06-19-[address] Tana Farmer Work Phone: [facility] Work Phone: Start: 06-19-2023 End: 06-19-[address] Tana Farmer Work Phone: [facility] [place] Start: 06-19-2023 End: 06-19-2023 Dr. Tana Farmer Work Phone: [facility] [place] Start: 06-18-2023 End: 06-18-[address] Tana Farmer Work Phone: [facility] Work Phone: Start: 06-18-2023 End: 06-18-[address] Tana Farmer Work Phone: [facility] Work Phone: Start: 06-18-2023 End: 06-18-2023 Dr. Tana Farmer Work Phone: [facility] Work Phone: Start: 06-11-2023 End: 06-11-2023 Patient encounter procedure Danni COFFMAN Work Phone: [facility] Comment on above: Abrasion of right co rnea, initial encounter (Primary Dx) Start: 05-29-2023 Telephone encounter Carmine Torres Work Phone: Podiatry Comment on above: Appointment Start: 04-15-2022 End: 04-15-[address] Tana Farmer Work Phone: [facility] Start: 01-08-2022 End: 01-08-[address] Tana Farmer Work Phone: [facility] Start: 01-23-2021 End: 01-23-2021 Orders Only Rika Sullivan Work Phone: [facility] Start: 03-09-2019 End: 03-09-2019 Outside Orders Chauncey Baird Work Phone: [facility] [place] Start: 01-07-2019 Patient encounter procedure PROVIDER NOT IN SYSTEM [facility] Procedures Date Procedure Procedure Detail Performing Clinician 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 FARMER Comment on above: Order Comment: Specimen Type: BLOOD SPEC IMENOrdering Facility: [facility] Address: [address] [place] [address] Performed By: #### T SCR ####[facility] BLOOD BANKCLIA [id number] [address] Start: 04-15-2025 Antibody screen TANA FARMER Comment on above: Order Comment: Specimen Type: BLOOD SPEC IMENOrdering Facility: [facility] Address: [address] [place] [address] Performed By: #### T SCR ####[facility] BLOOD BANKCLIA [id number] [address] Start: 04-08-2025 Antibody screen TANA FARMER Comment on above: Order Comment: Specimen Type: BLOOD SPEC IMENOrdering Facility: [facility] Address: [address] [place] [address] Performed By: #### T SCR ####[facility]ANK[facility] [id number] [place] [address] [facility] Start: 04-07-2025 CT cervical spine without contrast Dr. Eliana Farmer MD Work Phone: Start: 04-07-2025 CT of chest without contrast Dr. Marco Farmer MD Work Phone: Start: 04-07-2025 CT of head without contrast Dr. Britney Farmer MD Work Phone: Start: 03-30-[address] Tana Farmer MD Work Phone: Start: 03-15-2025 Comprehensive metabolic panel Shandra quintero DO Work Phone: Start: 03-14-2025 Echo tthrc r-t 2d w/wom-mode compl spec&colr d Shandra Keenan DO Work Phone: Start: 03-14-2025 Blood count complete automated Shandra Keenan DO Work Phone: Start: 03-14-2025 Hepatitis b surf antibody hbsab Shandra Keenan DO Work Phone: Start: 03-14-2025 HEPATITIS PROFILE (ABC) Shandra Keenan DO Work Phone: Start: 03-14-2025 Iaad ia hepatitis b surface antigen Shandra Keenan DO Work Phone: Start: 03-14-2025 Level iv surg pathology gross&microscopic exam Angella Yu MD Work Phone: Start: 03-14-2025 End: 03-14-2025 Esophagogastroduodenoscopy transoral diagnostic Angella Yu MD Work Phone: Start: 03-14-2025 Endoscopy of esophagus Angella Yu MD Work Phone: Start: 03-14-2025 CV IR PARACENTESIS Jasiel Rincon PA-C Work Phone: Start: 03-14-2025 Cell count misc body fluids w/differential count Daxa Rubio CORBY Work Phone: Start: 03-14-2025 Cul bact xcpt urine blood/stool aerobic isol Daxa Rubio ARMATURE CONNECTOR Work Phone: Start: 03-14-2025 Level iv surg pathology gross&microscopic exam Daxa Rubio ARMATURE CONNECTOR Work Phone: Start: 03-14-2025 Other source albumin quantitative each specimen Daxa Rubio CORBY Work Phone: Start: 03-14-2025 Protein total xcpt refractometry oth src Daxa Rubio [employer]MATURE CONNECTOR Work Phone: Start: 03-14-2025 Electrocardiogram [facility] Work Phone: Start: 03-14-2025 Comprehensive metabolic panel Daxa Rubio ARMATURE CONNECTOR Work Phone: Start: 03-13-2025 Drug tst prsmv instrmnt chem analyzers pr date Daxa Rubio CORBY Work Phone: Start: 03-13-2025 Urnls dip stick/tablet reagent auto microscopy Daxa Rubio CORBY Work Phone: Start: 03-13-2025 Dup-scan xtr veins complete bilateral study Yumiko Nath PA-C Work Phone: Start: 03-13-2025 Ecg routine ecg w/least 12 lds trcg only w/o i&r Yumiko Nath PA-C Work Phone: Start: 03-13-2025 Radiologic exam chest single view Sandhya Nath PA-C Work Phone: Start: 03-13-2025 Blood ethanol measurement Daxa Bruno Joanne TAVAREZ Work Phone: Start: 03-13-2025 Comprehensive metabolic panel Yumiko Harperona PA-C Work Phone: Start: 03-13-2025 CARRILLO TOP Jesus Alberto Lindsay MD Work Phone: Start: 03-13-2025 Hepatic function panel Yumiko Nath PA-C Work Phone: Start: 03-13-2025 LIGHT BLUE TOP Jesus Alberto Lindsay MD Work Phone: Start: 03-13-2025 LIGHT GREEN TOP Jesus Alberto Lindsay MD Work Phone: Start: 03-13-2025 PINK TOP Jesus Alberto Lindsay MD Work Phone: Start: 03-13-2025 RAINBOW DRAW Jesus Alberto Lindsay MD Work Phone: Start: 12-16-2024 Measurement of renal function Dr. Beto Farmer MD Work Phone: Comment on above: GFR Calc Start: 09-30-2023 Plain x-ray of wrist Dr. Tana Farmer Work Phone: Start: 09-30-2023 Radiologic examination of knee Dr. Geraldine Farmer Work Phone: Start: 07-17-[address] Tana Farmer Work Phone: Start: 07-17-[address] Britney Farmer Work Phone: Start: 07-17-[address] Tana Farmer Work Phone: Start: 07-17-2023 Investigation of transfusion reaction Dr. Tana Farmer Work Phone: Start: 07-16-2023 Computed tomography of abdomen and pelvis with intravenous contrast Dr. Tana Farmer Work Phone: Start: 03-09-2019 OPHTHALMOLOGY DIAGNOSTIC IMAGING (SCANNED) Chauncey Baird Work Phone: Plan of Treatment Date Care Activity Detail Author Start: 05-01-2028 Diabetes Screening Diabetes Screening [facility] Start: 04-28-2028 Diabetes Screening Diabetes Screening [facility] Start: 04-27-2028 Diabetes Screening Diabetes Screening [facility] Start: 03-15-2028 Diabetes Screening Diabetes Screening [facility] Start: 07-24-2025 Influenza vaccination Influenza Vaccine (Season Ended) [facility] Start: 04-07-2025 [facility] Start: 03-24-2025 Patient referral [facility] Work Phone: Start: 07-24-2024 Covid-19 Vaccine ( season) Covid-19 Vaccine () [facility] Start: 07-24-2024 Influenza vaccination Influenza Vaccine (#1) [facility] Start: 07-04-2024 End: 07-04-2024 Patient encounter procedure 07/04/2024 10:45 AM EDT Office Visit Podiatry [address] [place] [address] Carmine Bill [address] [place] [address] Consult for great toe on right foot Podiatry Comment on above: Consult for great toe on right foot Start: 01-04-2024 Patient referral [facility] Work Phone: Start: 11-23-2023 Behavioral Health Screening Behavioral Health Screening [facility] Start: 09-30-2023 Application short arm splint forearm-hand static APPLY FOREARM SPLINT [facility] Start: 09-30-2023 [facility] Start: 08-26-2023 Patient referral [facility] Work Phone: Start: 07-24-2023 Covid-19 Vaccine ( season) Covid-19 Vaccine ( season) [facility] Start: 07-24-2023 Influenza vaccination INFLUENZA (#1) [facility] Start: 07-18-2023 Patient discharge [facility] Start: 07-17-2023 Anaerobic Culture Anaerobic Culture [facility] Start: 07-17-2023 Anaerobic microbial culture Anaerobic Culture [facility] Start: 07-17-2023 Body Fluid Culture Body Fluid Culture [facility] Start: 07-17-2023 [facility] Start: 07-16-2023 Procedure [facility] Start: 07-16-2023 Serum immunofixation [facility] Start: 07-16-2023 [facility] Start: 07-16-2023 Catheterization of vein [facility] Start: 07-16-2023 Following clinical pathway protocol [facility] Start: 07-16-2023 Ambulation without limitation [facility] Start: 07-16-2023 Assessment of risk of venous thromboembolism [facility] Start: 07-16-2023 Consultation [facility] Start: 07-16-2023 Insertion of catheter into peripheral vein [facility] Start: 07-16-2023 Measuring intake and output [facility] Start: 07-16-2023 Oxygen therapy [facility] Start: 07-16-2023 Providing care according to standard [facility] Start: 07-16-2023 Referral to gastroenterology service [facility] Start: 07-16-2023 Referral to occupational therapist [facility] Start: 07-16-2023 Referral to service [facility] Start: 07-16-2023 [facility] Start: 07-16-2023 Verification routine [facility] Start: 07-16-2023 Admission procedure [facility] Start: 07-16-2023 Consultation [facility] Start: 07-16-2023 Patient referral to dietitian [facility] Start: 07-15-2023 Assay of ammonia [facility] Start: 07-15-2023 Blood count complete auto&auto difrntl wbc [facility] Start: 07-15-2023 Collection venous blood venipuncture [facility] Start: 07-15-2023 Comprehensive metabolic panel [facility] Start: 06-18-2023 Patient referral [facility] Work Phone: Start: 11-23-2022 DEPRESSION ASSESSMENT DEPRESSION ASSESSMENT [facility] Start: 09-07-2021 COVID-19 VACCINE (3 - Moderna series) COVID-19 VACCINE (3 - Moderna series) [facility] Start: 2021 Pneumococcal Vaccine: 50+ (1 of 1 - PCV) Pneumococcal Vaccine: 50+ (1 of 1 - PCV) [facility] Start: 2021 SHINGRIX VACCINE (1 of 2) SHINGRIX VACCINE (1 of 2) [facility] Start: 07-24-2020 Influenza vaccination given Sequential Influenza Vaccine (#1) [facility] Start: 07-24-2019 Influenza vaccination INFLUENZA VACCINE (Season Ended) [facility] Start: 10-08-2016 History and physical examination, annual for health maintenance Wellness Visit [facility] Start: 02-20-2016 COLOGUARD (FIT-DNA) COLOGUARD (FIT-DNA) [facility] Start: 02-20-2016 Colonoscopy COLONOSCOPY [facility] Start: 02-20-2016 COLORECTAL CANCER SCREENING COLORECTAL CANCER SCREENING [facility] Start: 02-20-[address] COLONOGRAPHY [facility] Start: 02-20-2016 DIABETES SCREEN DIABETES SCREEN [facility] Start: 02-20-2016 Diabetes Screening Diabetes Screening [facility] Start: 02-20-2016 FECAL OCCULT BLOOD FECAL OCCULT BLOOD [facility] Start: 02-20-2016 Screening for malignant neoplasm of colon [facility] Start: 02-20-2016 SIGMOIDOSCOPY SIGMOIDOSCOPY [facility] Start: 2011 Fasting lipid profile LIPID SCREENING [facility] Start: 2006 Lipid panel Lipid Screening [facility] Start: 2006 LIPID SCREEN LIPID SCREEN [facility] Start: 1990 Hepatitis A Vaccine (1 of 2 - Risk 2-dose series) Hepatitis A Vaccine (1 of 2 - Risk 2-dose series) [facility] Start: 1990 Hepatitis B Vaccine (1 of 3 - 19+ 3-dose series) Hepatitis B Vaccine (1 of 3 - 19+ 3-dose series) [facility] Start: 1990 Pneumococcal Vaccine: 50+ (1 of 2 - PCV) Pneumococcal Vaccine: 50+ (1 of 2 - PCV) [facility] Start: 1990 Third diphtheria, tetanus and acellular pertussis (DTaP) vaccination TDAP (ADULT) [facility] Start: 1990 Urine microalbumin profile [facility] Start: 1989 Anxiety Screening Anxiety Screening [facility] Start: 1989 Depression Screening Depression Screening [facility] Start: 1989 Hepatitis C antibody, confirmatory test Hepatitis C Screening [facility] Start: 1989 HEPATITIS C SCREENING HEPATITIS C SCREENING [facility] Start: 1989 Hepatitis C screening Hepatitis C Screening [facility] Start: 1989 HIV SCREENING HIV SCREENING [facility] Start: 1989 HIV screening HIV Screening [facility] Start: 1989 Tetanus vaccination TETANUS [facility] Start: 1987 COVID-19 Vaccine (1 of 2) COVID-19 Vaccine (1 of 2) [facility] Start: 1986 HIV screening HIV Screening [facility] Start: 02-20-1984 HIV screening HIV SCREENING DISCUSSION [facility] Start: 1983 Adolescent depression screening assessment Depression Screening (PHQ9) [facility] Start: 1971 COVID-19 VACCINE (#1) COVID-19 VACCINE (#1) [facility] Start: 1971 HEPATITIS B (1 of 3 - 3-dose series) HEPATITIS B (1 of 3 - 3-dose series) [facility] Start: 1971 Prostate specific antigen measurement PSA Level [facility] Start: 1971 Tetanus vaccination Tetanus: Every 10yrs [facility] Albumin [Moles/volum e] in Serum or Plasma [facility] Albumin [Presence] i n Body fluid [facility] Albumin/Globulin ratio [facility] Alpha 1 antitrypsin [Mass/volume] in Serum or Plasma [facility] Bleol-2-gwpiqtcxoch. tumor marker [Units/volume] in Serum or Plasma [facility] Amylase [Enzymatic activity/volume] in Body fluid [facility] Antibody to lupus La protein measurement [facility] Antibody to SS-A measurement [facility] Bacteria identified in Body fluid by Culture [facility] Bacteria identified in Unspecified specimen by Anaerobe culture [facility] Basic metabolic 2008 panel with ionized calcium - Serum or Plasma [facility] Body Fluid Aerobic & Anaerobic Culture Body Fluid Aerobic & Anaerobic Culture Microbiology Routine 03/14/2025 9:33 AM EDT [facility] Work Phone: Cancer Ag 19-9 [Units/volume] in Serum or Plasma [facility] Carcinoembryonic Ag [Mass/volume] in Serum or Plasma [facility] CBC W Auto Different ial panel - Blood [facility] Centromere protein B Ab [Units/volume] in Serum [facility] Ceruloplasmin [Mass/ volume] in Serum or Plasma [facility] Chromatin Ab [Units/ volume] in Serum or Plasma [facility] Comprehensive metabo lic 2000 panel - Serum or Plasma [facility] Copper [Moles/volume ] in Serum or Plasma [facility] CT Abdomen and Pelvi s W contrast IV [facility] Cytology report of B nidia fluid Cyto stain [facility] Cytomegalovirus IgM antibody assay [facility] DNA double strand Ab [Units/volume] in Serum [facility] Electrophoresis: noicj-[id number] [facility] Electrophoresis: fernando ma globulin [facility] Globulin measurement [facility] Hepatitis A virus Ig M Ab [Presence] in Serum [facility] Hepatitis B core ant ibody measurement, IgM type [facility] Hepatitis B surface antigen measurement [facility] Hepatitis C antibody measurement [facility] IgA [Mass/volume] in Serum or Plasma [facility] IgG [Mass/volume] in Serum or Plasma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 discharge on PPI BID and will schedule EGD in 3 months to assess healing (message sent to scheduling). - HE: Grade 2 overt HE on admission with asterixis despite home lactulose. Continue home lactulose titrated to 3-5 soft stools daily. Continue Rifaximin 550 mg BID. Schedule follow up in Hepatology pharmacy clinic for medication reconcilliation - Alcoholic Liver Disease (ALD): Actively drinking despite diagnosis and following with GI previously. PETH ordered. Extensive conversation regarding my concern that the patient's liver disease is due to alcohol. I recommended lifelong abstinence form alcohol as well as AOD counseling. Recommend Thiamine, Folate and close monitoring for withdrawal. For patients at high risk for severe withdrawal, recommend high dose Thiamine replacement 500 mg IV TID x 5 days followed by 100 mg daily. Recommend Phenobarb instead of CIWA for withdrawal. Recommend Naltrexone or Acamprosate to aid with cessation - Cellulitis: LLE cellulitis. On Keflex OK to discharge from Hepatology perspective. Follow up scheduled in [facility] Liver clinic in [facility] ([facility], [place] [address]). Clinic phone: [phone]. Please include this information on patients Discharge Summary. Patient will be called with specific date and time Chief Complaint: Cirrhosis with ascites Subjective: No acute events Review of Systems: All remaining systems were reviewed and are negative except for those mentioned in the HPI Labs: Results from last 7 days Lab Units 03/15/25 0405 03/14/25 1308 03/13/25 1109 WBC K/mcL 2.38* 3.12* 3.73* HGB g/dL 8.4* 9.8* 10.2* HCT % 24.8* 29.2* 30.1* PLT K/mcL 66* 86* 82* Results from last 7 days Lab Units 03/15/25 0405 03/14/25 0556 03/13/25 1109 SODIUM mmol/L 133* 132* 132* POTASSIUM mmol/L 3.8 3.7 3.4* CHLORIDE mmol/L 99 99 97* BUN mg/dL 6* 3* 3* CREATININE mg/dL 0.22* 0.24* 0.66 CALCIUM mg/dL 8.1* 8.4 8.4 TOTAL PROTEIN g/dL 5.8* 6.1 8.3* BILIRUBIN TOTAL mg/dL 13.4* 15.1* 18.3* ALK PHOS U/L 132 156* 200* ALT U/L 25 38 47 AST U/L 61* 79* 112* GLUCOSE mg/dL 142* 105* 162* Physical Examination: Temp: [97.9 degrees F (36.6 degrees C)-98.2 degrees F (36.8 degrees C)] 98.1 degrees F (36.7 degrees C) Heart Rate: [83-91] 88 Resp: [16-17] 16 BP: (108-116)/(61-69) 108/62 CONSTITUTIONAL: Appropriate attention to grooming, normal body habitus, NAD, (-) asterixis HEENT: (+) icterus ABDOMEN: Flat, negative hepatosplenomegaly, soft and non-tender. SKIN: (+) jaundice Results/Medications Reviewed 03/15/25 1:39 PM: Laboratory, Microbiology, Pathology, Radiology, Medications, and Transcriptions John Becerril MD AUTHENTICATED BY JOHN BECERRIL, ON 03/15/2025 13:43:21 [facility] 03-15-2025 History of Present illness Narrative GASTROENTEROLOGY/HEPATOLOGY DAILY PROGRESS NOTE 3 Patient Name: Aryan Valle Encounter date: 03/15/25 MR #: [id number] Assessment/Plan: * Decompensated cirrhosis (HCC) Assessment & Plan 55 y.o. 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 Hepatology is consulted for decompensated cirrhosis. MELD 3.0: 31 at 03/15/2025 4:05 AM MELD-Na: 31 at 03/15/2025 4:05 AM Calculated from: Serum Creatinine: 0.22 mg/dL (Using min of 1 mg/dL) at 03/15/2025 4:05 AM Serum Sodium: 133 mmol/L at 03/15/2025 4:05 AM Total Bilirubin: 13.4 mg/dL at 03/15/2025 4:05 AM Serum Albumin: 3.1 g/dL at 03/15/2025 4:05 AM INR(ratio): 3.5 at 03/15/2025 4:05 AM Age at listing (hypothetical): 55 years Sex: Male at 03/15/2025 4:05 AM PLAN: - Decompensated cirrhosis: Etiology thought due to ALD. Actively drinking. Follow MELD labs daily while in patient. Patient would not be a candidate for OLT evaluation given ongoing alcohol use despite diagnosis and following with local GI - Ascites: Paracentesis 03/14/25 with SAAG > 1.1 and TP < 2.5 c/w sinusoidal portal hypertension from cirrhosis. No e/o SBP. Recommend 2 gram low sodium diet and Nutrition consult for education. Start diuretics: lasix 40 mg daily and spironolactone 100 mg daily. Have PCP check BMP in 1 week - Portal Hypertension: EGD 03/14/25 without EV. Mild PHG. Non-bleeding gastric ulcer with a clean ulcer base (Prasanth Class III). Biopsied. OK to discharge on PPI BID and will schedule EGD in 3 months to assess healing (message sent to scheduling). - HE: Grade 2 overt HE on admission with asterixis despite home lactulose. Continue home lactulose titrated to 3-5 soft stools daily. Continue Rifaximin 550 mg BID. Schedule follow up in Hepatology pharmacy clinic for medication reconcilliation - Alcoholic Liver Disease (ALD): Actively drinking despite diagnosis and following with GI previously. PETH ordered. Extensive conversation regarding my concern that the patient's liver disease is due to alcohol. I recommended lifelong abstinence form alcohol as well as AOD counseling. Recommend Thiamine, Folate and close monitoring for withdrawal. For patients at high risk for severe withdrawal, recommend high dose Thiamine replacement 500 mg IV TID x 5 days followed by 100 mg daily. Recommend Phenobarb instead of CIWA for withdrawal. Recommend Naltrexone or Acamprosate to aid with cessation - Cellulitis: LLE cellulitis. On Keflex OK to discharge from Hepatology perspective. Follow up scheduled in [facility] Liver clinic in [facility] ([address] [place] [address], [place] [address]). Clinic phone: [phone]. Please include this information on patients Discharge Summary. Patient will be called with specific date and time Chief Complaint: Cirrhosis with ascites Subjective: No acute events Review of Systems: All remaining systems were reviewed and are negative except for those mentioned in the HPI Labs: Results from last 7 days Lab Units 03/15/25 0405 03/14/25 1308 03/13/25 1109 WBC K/mcL 2.38* 3.12* 3.73* HGB g/dL 8.4* 9.8* 10.2* HCT % 24.8* 29.2* 30.1* PLT K/mcL 66* 86* 82* Results from last 7 days Lab Units 03/15/25 0405 03/14/25 0556 03/13/25 1109 SODIUM mmol/L 133* 132* 132* POTASSIUM mmol/L 3.8 3.7 3.4* CHLORIDE mmol/L 99 99 97* BUN mg/dL 6* 3* 3* CREATININE mg/dL 0.22* 0.24* 0.66 CALCIUM mg/dL 8.1* 8.4 8.4 TOTAL PROTEIN g/dL 5.8* 6.1 8.3* BILIRUBIN TOTAL mg/dL 13.4* 15.1* 18.3* ALK PHOS U/L 132 156* 200* ALT U/L 25 38 47 AST U/L 61* 79* 112* GLUCOSE mg/dL 142* 105* 162* Physical Examination: Temp: [97.9 F (36.6 C)-98.2 F (36.8 C)] 98.1 F (36.7 C) Heart Rate: [83-91] 88 Resp: [16-17] 16 BP: (108-116)/(61-69) 108/62 CONSTITUTIONAL: Appropriate attention to grooming, normal body habitus, NAD, (-) asterixis HEENT: (+) icterus ABDOMEN: Flat, negative hepatosplenomegaly, soft and non-tender. SKIN: (+) jaundice Results/Medications Reviewed 03/15/25 1:39 PM: Laboratory, Microbiology, Pathology, Radiology, Medications, and Transcriptions John Becerril MD [facility] Inpatient Progress Note 03/15/2025 Aryan Valle 1970 [id number] Assessment/Plan: Aryan Valle is a 55 y.o. male with a history of seizures, HTN, cirrhosis, alcohol use disorder, admission at [facility] 02/24/25 for abdominal distention but left AMA, ED visit 03/11/25 for decompensated cirrhosis and large volume ascites who declined admission to [facility] or transfer to tertiary hospital for hepatology evaluation who presented to [facility] 03/13/2025 with ongoing abdominal pain. Decompensated Cirrhosis with Ascites: Lost to follow-up. Complicated by ascites and HE. CT A/P showed cirrhosis, large volume ascites, hepatomegaly suggestive of portal hypertension. MELD-Na 29. S/p 5L paracentesis 03/14/25. EGD 03/14/2025 showed PHG. Currently off diuretics. Hepatology following. Hepatic encephalopathy: Grade 2 on admission despite home lactulose. Continue lactulose and rifaximin. Process started for prior Auth. Improved to baseline. Coagulopathy: Admit INR 2.7. In the setting of cirrhosis. No active bleeding. Thrombocytopenia: Unknown baseline. Admit platelets 82. Suspected due to above. Hyponatremia: Admit sodium 132 in the setting of anasarca and cirrhosis. Alcohol Use Disorder: denied history of withdrawal. Drinks 3 beers daily. Last drink 03/12/2025. Continued CIWA, vitamins. LLE Cellulitis: Increased warmth and erythema along mid anterior choe, continued ancef. Gastric ulcer: EGD 03/14/2025 showed nonbleeding gastric ulcer. GI recommended 12 weeks PPI twice daily, repeat EGD in 3 months. Urinary retention: Difficulty initiating and maintaining stream per patient. Ordered PVR but may not be accurate given large volume of ascites. Monitor Left inguinal hernia: Follows with surgery outpatient. CT A/P showed ascites within left inguinal hernia without bowel involvement. Follow-up outpatient. Code status: full code DVT Prophylaxis: lovenox Medication Reconciliation: Reviewed using bone density technician Current living situation: home Expected Disposition: home Estimated discharge date: Today Subjective: Patient doing well this morning, no changes in clinical status, abdomen remains improved from admission. He is able to fill rifaximin for $0 given coupon. Reviewed other medication changes and discharge plan of patient. Reviewed follow-up plan with patient safety tech. Medically ready discharge today. Physical Exam: BP 108/62 Pulse 88 Temp 98.1 F (36.7 C) (Oral) Resp 16 Ht 5' 11 Wt 104.2 kg (229 lb 11.5 oz) SpO2 93% BMI 32.04 kg/m General: NAD Eyes: EOMI, sclera clear ENT: neck supple Cardiovascular: Regular rate, no murmur Respiratory: Clear to auscultation, symmetric air entry Gastrointestinal: Soft, non tender, non distended, positive bowel sounds Genitourinary: no CVA tenderness Musculoskeletal: no major joint deformity Skin: warm, dry, LLE erythema along anterior aspect of extremity Neuro: Alert, oriented x3, no focal motor deficits Psych: Mood appropriate Current Medications: ceFAZolin (ANCEF) IVPB 2,000 mg Intravenous Q8H enoxaparin (LOVENOX) injection 40 mg Subcutaneous Daily folic acid 1 mg Oral Daily furosemide 40 mg Oral Daily gabapentin 600 mg Oral Q12H MAURICE lactulose 10 g Oral TID levETIRAcetam 750 mg Oral BID levothyroxine 50 mcg Oral Daily multivitamin 1 tablet Oral Daily rifAXIMin 550 mg Oral BID sodium chloride (PF) 5 mL Intravenous Q8H MAURICE spironolactone 100 mg Oral Daily thiamine 200 mg Oral Daily Labs, Imaging and Studies reviewed: Results from last 7 days Lab Units 03/15/25 0405 03/14/25 1308 03/13/25 1109 WBC K/mcL 2.38* 3.12* 3.73* HGB g/dL 8.4* 9.8* 10.2* HCT % 24.8* 29.2* 30.1* PLT K/mcL 66* 86* 82* Results from last 7 days Lab Units 03/15/25 0405 03/14/25 0556 03/13/25 1109 SODIUM mmol/L 133* 132* 132* POTASSIUM mmol/L 3.8 3.7 3.4* CHLORIDE mmol/L 99 99 97* BICARB mmol/L 26 25 24 BUN mg/dL 6* 3* 3* CREATININE mg/dL 0.22* 0.24* 0.66 EGFR mL/min/1.73 m2 155 151 111 GLUCOSE mg/dL 142* 105* 162* CALCIUM mg/dL 8.1* 8.4 8.4 Results from last 7 days Lab Units 03/15/25 0405 03/14/25 0556 03/13/25 1109 ALT U/L 25 38 47 AST U/L 61* 79* 112* ALK PHOS U/L 132 156* 200* BILIRUBIN TOTAL mg/dL 13.4* 15.1* 18.3* Results from last 7 days Lab Units 03/15/25 0405 03/14/25 0556 03/13/25 1109 INR 3.5* 3.1* 2.7* [facility] Inpatient Progress Note 03/14/2025 Aryan Valle 1970 [id number] Assessment/Plan: Aryan Valle is a 55 y.o. male with a history of seizures, HTN, cirrhosis, alcohol use disorder, admission at [facility] 02/24/25 for abdominal distention but left AMA, ED visit 03/11/25 for decompensated cirrhosis and large volume ascites who declined admission to [facility] or transfer to [facility] for hepatology evaluation who presented to [facility] 03/13/2025 with ongoing abdominal pain. Decompensated Cirrhosis with Ascites: Lost to follow-up. Complicated by ascites and HE. CT A/P showed cirrhosis, large volume ascites, hepatomegaly suggestive of portal hypertension. MELD-Na 29. S/p 5L paracentesis 03/14/25. EGD 03/14/2025 showed PHG. Currently off diuretics. Hepatology following. Hepatic encephalopathy: Grade 2 on admission despite home lactulose. Continue lactulose and rifaximin. Process started for prior Auth. Improved to baseline. Coagulopathy: Admit INR 2.7. In the setting of cirrhosis. No active bleeding. Thrombocytopenia: Unknown baseline. Admit platelets 82. Suspected due to above. Hyponatremia: Admit sodium 132 in the setting of anasarca and cirrhosis. Alcohol Use Disorder: denied history of withdrawal. Drinks 3 beers daily. Last drink 03/12/2025. Continued CIWA, vitamins. LLE Cellulitis: Increased warmth and erythema along mid anterior choe, continued ancef. Gastric ulcer: EGD 03/14/2025 showed nonbleeding gastric ulcer. GI recommended 12 weeks PPI twice daily, repeat EGD in 3 months. Urinary retention: Difficulty initiating and maintaining stream per patient. Ordered PVR but may not be accurate given large volume of ascites. Monitor Left inguinal hernia: Follows with surgery outpatient. CT A/P showed ascites within left inguinal hernia without bowel involvement. Follow-up outpatient. Code status: full code DVT Prophylaxis: lovenox Medication Reconciliation: Reviewed using bone density technician Current living situation: home Expected Disposition: home Estimated discharge date: TBD Medically Ready for Discharge: no decomp cirrhosis Subjective: Patient seen following paracentesis, reports feeling much better. He denies having abdominal pain prior to arrival, just fullness. He has PHG and a gastric ulcer on endoscopy on PPI therapy. He is receiving IV albumin given large volume paracentesis. Labs are mostly stable, not triggering CIWA, hemodynamically stable with only mild hypotension. Physical Exam: BP 110/72 (BP Location: Right arm, Patient Position: Lying) Pulse 82 Temp 97.9 F (36.6 C) (Temporal) Resp 18 Ht 5' 11 Wt 97.5 kg (215 lb) SpO2 98% BMI 29.99 kg/m General: NAD Eyes: EOMI, sclera clear ENT: neck supple Cardiovascular: Regular rate, no murmur Respiratory: Clear to auscultation, symmetric air entry Gastrointestinal: Soft, non tender, non distended, positive bowel sounds Genitourinary: no CVA tenderness Musculoskeletal: no major joint deformity Skin: warm, dry, LLE erythema along anterior aspect of extremity Neuro: Alert, oriented x3, no focal motor deficits Psych: Mood appropriate Current Medications: albumin human 25 g Intravenous Once albumin human 25 g Intravenous Once albumin human 25 g Intravenous Q6H ceFAZolin (ANCEF) IVPB 2,000 mg Intravenous Q8H enoxaparin (LOVENOX) injection 40 mg Subcutaneous Daily folic acid 1 mg Oral Daily gabapentin 600 mg Oral Q12H MAURICE lactulose 10 g Oral TID levETIRAcetam 750 mg Oral BID levothyroxine 50 mcg Oral Daily multivitamin 1 tablet Oral Daily rifAXIMin 550 mg Oral BID sodium chloride (PF) 5 mL Intravenous Q8H MAURICE thiamine 200 mg Oral Daily Labs, Imaging and Studies reviewed: Results from last 7 days Lab Units 03/13/25 1109 03/11/25 1834 WBC K/mcL 3.73* 4.22* HGB g/dL 10.2* 10.5* HCT % 30.1* 30.2* PLT K/mcL 82* 78* Results from last 7 days Lab Units 03/14/25 0556 03/13/25 1109 03/11/25 1834 SODIUM mmol/L 132* 132* 131* POTASSIUM mmol/L 3.7 3.4* 3.4* CHLORIDE mmol/L 99 97* 96* BICARB mmol/L BUN mg/dL 3* 3* 4* CREATININE mg/dL 0.24* 0.66 0.65 EGFR mL/min/1.73 m2 151 111 112 GLUCOSE mg/dL 105* 162* 176* CALCIUM mg/dL 8.4 8.4 8.6 Results from last 7 days Lab Units 03/14/25 0556 03/13/25 1109 03/11/25 1834 ALT U/L 38 47 47 AST U/L 79* 112* 108* ALK PHOS U/L 156* 200* 208* BILIRUBIN TOTAL mg/dL 15.1* 18.3* 19.4* Results from last 7 days Lab Units 03/14/25 0556 03/13/25 1109 03/11/25 1834 INR 3.1* 2.7* 2.5* documented in this encounter [facility] 03-15-2025 Note [facility] DISCHARGE Aryan Rosas Account: [id number] Admitted: 03/13/2025 Discharge Date/Time: 03/15/25 / 11:56 AM _ Handoff to PCP Routine hospital follow up Follow-up with hepatology as scheduled. Follow-up resolution of suspected left lower extremity cellulitis. Follow-up with GI as scheduled. Clinical Summary Aryan Valle is a 55 y.o. male with a history of seizures, HTN, cirrhosis, alcohol use disorder, admission at [facility] 02/24/25 for abdominal distention but left AMA, ED visit 03/11/25 for decompensated cirrhosis and large volume ascites who declined admission to [facility] or transfer to tertiary hospital for hepatology evaluation who presented to [facility] 03/13/2025 with ongoing abdominal pain s/p 5L paracentesis negative for SBP. EGD showed PHG without EV. Discharged home. Decompensated Cirrhosis with Ascites: Lost to follow-up. Complicated by ascites and HE. CT A/P showed cirrhosis, large volume ascites, hepatomegaly suggestive of portal hypertension. MELD-Na 29. S/p 5L paracentesis 03/14/25. EGD 03/14/2025 showed PHG. Increased home Lasix and Aldactone. Hepatology followed. Hepatic encephalopathy: Grade 2 on admission despite home lactulose. Continue lactulose and rifaximin on discharge, prior Auth completed. Coagulopathy: Admit INR 2.7. In the setting of cirrhosis. No active bleeding. Thrombocytopenia: Unknown baseline. Admit platelets 82. Suspected due to above. Alcohol Use Disorder: denied history of withdrawal. Drinks 3 beers daily. Last drink 03/12/2025. Did not trigger CIWA, continued supplementation. LLE Cellulitis: Increased warmth and erythema along mid anterior choe which improved with Ancef. Continued Keflex on discharge to complete 7 days total. Gastric ulcer: EGD 03/14/2025 showed nonbleeding gastric ulcer. GI recommended 12 weeks PPI twice daily, repeat EGD in 3 months. Left inguinal hernia: Follows with surgery outpatient. CT A/P showed ascites within left inguinal hernia without bowel involvement. Follow-up outpatient. Code status: full code Discharge Medications Discharge Medications New Medications Details folic acid 1 MG tablet Commonly known as: FOLVITE Take 1 (one) tablet (1 mg total) by mouth daily in the afternoon . Quantity: 30 tablet lactulose 10 gram/15 mL solution Commonly known as: CHRONULAC Replaces: lactulose 20 gram packet Take 15 mL (10 g total) by mouth 3 (three) times a day . Quantity: 1350 mL thiamine 100 MG tablet Take 1 (one) tablet (100 mg total) by mouth daily . Quantity: 30 tablet Xifaxan 550 mg tablet Generic drug: rifAXIMin Take 1 (one) tablet (550 mg total) by mouth 2 (two) times a day . Quantity: 60 tablet Modified Medications Details furosemide 40 MG tablet Commonly known as: LASIX What changed: medication strength how much to take when to take this Take 1 (one) tablet (40 mg total) by mouth daily . Quantity: 30 tablet spironolactone 100 MG tablet Commonly known as: ALDACTONE What changed: medication strength how much to take when to take this Take 1 (one) tablet (100 mg total) by mouth daily . Quantity: 30 tablet Medications To Continue Details cephALEXin 500 MG capsule Commonly known as: KEFLEX Take 1 (one) capsule (500 mg total) by mouth 4 (four) times a day for 5 days . Quantity: 20 capsule gabapentin 600 MG tablet Commonly known as: NEURONTIN Take 1 (one) tablet (600 mg total) by mouth 2 (two) times a day . levETIRAcetam 750 MG tablet Commonly known as: KEPPRA Take 1 (one) tablet (750 mg total) by mouth 2 (two) times a day. Quantity: 60 tablet levothyroxine 50 MCG tablet Commonly known as: SYNTHROID, LEVOTHROID Take 1 (one) tablet (50 mcg total) by mouth once daily . meclizine 25 MG chewable tablet Commonly known as: ANTIVERT Chew and Swallow 1 (one) tablet (25 mg total) 2 (two) times a day . Stopped Medications lactulose 20 gram packet Commonly known as: CEPHULAC Replaced by: lactulose 10 gram/15 mL solution Physician(s) Family: Tana Farmer MD, , Address: [address] [place] [address] Follow Up: No follow-up provider specified. Additional Information: Patient seen and examined day of discharge. For more information regarding patient's care, including complete radiology reports, please contact [facility] at Patient instructions, including activity, were given to the patient/family at discharge. Please see the After Visit Summary in the medical record for details. Time spent on discharge: > 30 minutes Completed by: Jensen Cabello DO on 03/15/25, 11:56 AM AUTHENTICATED BY JENSEN CABELLO ON 03/15/2025 11:59:41 [facility] 03-15-2025 Hospital course Narrative [facility] DISCHARGE SUMMARY Aryan Valle Account: [id number] Admitted: 03/13/2025 Discharge Date/Time: 03/15/25 / 11:56 AM _ Handoff to PCP Routine hospital follow up Follow-up with hepatology as scheduled. Follow-up resolution of suspected left lower extremity cellulitis. Follow-up with GI as scheduled. Clinical Summary Aryan Valle is a 55 y.o. male with a history of seizures, HTN, cirrhosis, alcohol use disorder, admission at [facility] 02/24/25 for abdominal distention but left AMA, ED visit 03/11/25 for decompensated cirrhosis and large volume ascites who declined admission to [facility] or transfer to tertiary hospital for hepatology evaluation who presented to [facility] 03/13/2025 with ongoing abdominal pain s/p 5L paracentesis negative for SBP. EGD showed PHG without EV. Discharged home. Decompensated Cirrhosis with Ascites: Lost to follow-up. Complicated by ascites and HE. CT A/P showed cirrhosis, large volume ascites, hepatomegaly suggestive of portal hypertension. MELD-Na 29. S/p 5L paracentesis 03/14/25. EGD 03/14/2025 showed PHG. Increased home Lasix and Aldactone. Hepatology followed. Hepatic encephalopathy: Grade 2 on admission despite home lactulose. Continue lactulose and rifaximin on discharge, prior Auth completed. Coagulopathy: Admit INR 2.7. In the setting of cirrhosis. No active bleeding. Thrombocytopenia: Unknown baseline. Admit platelets 82. Suspected due to above. Alcohol Use Disorder: denied history of withdrawal. Drinks 3 beers daily. Last drink 03/12/2025. Did not trigger CIWA, continued supplementation. LLE Cellulitis: Increased warmth and erythema along mid anterior choe which improved with Ancef. Continued Keflex on discharge to complete 7 days total. Gastric ulcer: EGD 03/14/2025 showed nonbleeding gastric ulcer. GI recommended 12 weeks PPI twice daily, repeat EGD in 3 months. Left inguinal hernia: Follows with surgery outpatient. CT A/P showed ascites within left inguinal hernia without bowel involvement. Follow-up outpatient. Code status: full code Discharge Medications Discharge Medications New Medications Details folic acid 1 MG tablet Commonly known as: FOLVITE Take 1 (one) tablet (1 mg total) by mouth daily in the afternoon . Quantity: 30 tablet lactulose 10 gram/15 mL solution Commonly known as: CHRONULAC Replaces: lactulose 20 gram packet Take 15 mL (10 g total) by mouth 3 (three) times a day . Quantity: 1350 mL thiamine 100 MG tablet Take 1 (one) tablet (100 mg total) by mouth daily . Quantity: 30 tablet Xifaxan 550 mg tablet Generic drug: rifAXIMin Take 1 (one) tablet (550 mg total) by mouth 2 (two) times a day . Quantity: 60 tablet Modified Medications Details furosemide 40 MG tablet Commonly known as: LASIX What changed: medication strength how much to take when to take this Take 1 (one) tablet (40 mg total) by mouth daily . Quantity: 30 tablet spironolactone 100 MG tablet Commonly known as: ALDACTONE What changed: medication strength how much to take when to take this Take 1 (one) tablet (100 mg total) by mouth daily . Quantity: 30 tablet Medications To Continue Details cephALEXin 500 MG capsule Commonly known as: KEFLEX Take 1 (one) capsule (500 mg total) by mouth 4 (four) times a day for 5 days . Quantity: 20 capsule gabapentin 600 MG tablet Commonly known as: NEURONTIN Take 1 (one) tablet (600 mg total) by mouth 2 (two) times a day . levETIRAcetam 750 MG tablet Commonly known as: KEPPRA Take 1 (one) tablet (750 mg total) by mouth 2 (two) times a day. Quantity: 60 tablet levothyroxine 50 MCG tablet Commonly known as: SYNTHROID, LEVOTHROID Take 1 (one) tablet (50 mcg total) by mouth once daily . meclizine 25 MG chewable tablet Commonly known as: ANTIVERT Chew and Swallow 1 (one) tablet (25 mg total) 2 (two) times a day . Stopped Medications lactulose 20 gram packet Commonly known as: CEPHULAC Replaced by: lactulose 10 gram/15 mL solution Physician(s) Family: Tana Farmer MD, , Address: [address] [place] [address] / [facility] [id number] Follow Up: No follow-up provider specified. Additional Information: Patient seen and examined day of discharge. For more information regarding patient's care, including complete radiology reports, please contact [facility] at Patient instructions, including activity, were given to the patient/family at discharge. Please see the After Visit Summary in the medical record for details. Time spent on discharge: > 30 minutes Completed by: Jensen Cabello DO on 03/15/25, 11:56 AM documented in this encounter [facility] 03-15-2025 Note [facility] Inpatient Pro pretty Note 03/15/2025 Aryan Valle 1970 [id number] Assessment/Plan: Aryan Valle is a 55 y.o. male with a history of seizures, HTN, cirrhosis, alcohol use disorder, admission at [facility] 02/24/25 for abdominal distention but left AMA, ED visit 03/11/25 for decompensated cirrhosis and large volume ascites who declined admission to [facility] or transfer to tertiary hospital for hepatology evaluation who presented to [facility] 03/13/2025 with ongoing abdominal pain. Decompensated Cirrhosis with Ascites: Lost to follow-up. Complicated by ascites and HE. CT A/P showed cirrhosis, large volume ascites, hepatomegaly suggestive of portal hypertension. MELD-Na 29. S/p 5L paracentesis 03/14/25. EGD 03/14/2025 showed PHG. Currently off diuretics. Hepatology following. Hepatic encephalopathy: Grade 2 on admission despite home lactulose. Continue lactulose and rifaximin. Process started for prior Auth. Improved to baseline. Coagulopathy: Admit INR 2.7. In the setting of cirrhosis. No active bleeding. Thrombocytopenia: Unknown baseline. Admit platelets 82. Suspected due to above. Hyponatremia: Admit sodium 132 in the setting of anasarca and cirrhosis. Alcohol Use Disorder: denied history of withdrawal. Drinks 3 beers daily. Last drink 03/12/2025. Continued CIWA, vitamins. LLE Cellulitis: Increased warmth and erythema along mid anterior choe, continued ancef. Gastric ulcer: EGD 03/14/2025 showed nonbleeding gastric ulcer. GI recommended 12 weeks PPI twice daily, repeat EGD in 3 months. Urinary retention: Difficulty initiating and maintaining stream per patient. Ordered PVR but may not be accurate given large volume of ascites. Monitor Left inguinal hernia: Follows with surgery outpatient. CT A/P/ showed ascites within left inguinal hernia without bowel involvement. Follow-up outpatient. Code status: full code DVT Prophylaxis: lovenox Medication Reconciliation: Reviewed using bone density technician Current living situation: home Expected Disposition: home Estimated discharge date: Today Subjective: Patient doing well this morning, no changes in clinical status, abdomen remains improved from admission. He is able to fill rifaximin for $0 given coupon. Reviewed other medication changes and discharge plan of patient. Reviewed follow-up plan with patient safety tech. Medically ready discharge today. Physical Exam: BP 108/62 Pulse 88 Temp 98.1 degrees F (36.7 degrees C) (Oral) Resp 16 Ht 5' 11 Wt 104.2 kg (229 lb 11.5 oz) SpO2 93% BMI 32.04 kg/m General: NAD Eyes: EOMI, sclera clear ENT: neck supple Cardiovascular: Regular rate, no murmur Respiratory: Clear to auscultation, symmetric air entry Gastrointestinal: Soft, non tender, non distended, positive bowel sounds Genitourinary: no CVA tenderness Musculoskeletal: no major joint deformity Skin: warm, dry, LLE erythema along anterior aspect of extremity Neuro: Alert, oriented x3, no focal motor deficits Psych: Mood appropriate Current Medications: ceFAZolin (ANCEF) IVPB 2,000 mg Intravenous Q8H enoxaparin (LOVENOX) injection 40 mg Subcutaneous Daily folic acid 1 mg Oral Daily furosemide 40 mg Oral Daily gabapentin 600 mg Oral Q12H MAURICE lactulose 10 g Oral TID levETIRAcetam 750 mg Oral BID levothyroxine 50 mcg Oral Daily multivitamin 1 tablet Oral Daily rifAXIMin 550 mg Oral BID sodium chloride (PF) 5 mL Intravenous Q8H MAURICE spironolactone 100 mg Oral Daily thiamine 200 mg Oral Daily Labs, Imaging and Studies reviewed: Results from last 7 days Lab Units 03/15/25 0405 03/14/25 1308 03/13/25 1109 WBC K/mcL 2.38* 3.12* 3.73* HGB g/dL 8.4* 9.8* 10.2* HCT % 24.8* 29.2* 30.1* PLT K/mcL 66* 86* 82* Results from last 7 days Lab Units 03/15/25 0405 03/14/25 0556 03/13/25 1109 SODIUM mmol/L 133* 132* 132* POTASSIUM mmol/L 3.8 3.7 3.4* CHLORIDE mmol/L 99 99 97* BICARB mmol/L 26 25 24 BUN mg/dL 6* 3* 3* CREATININE mg/dL 0.22* 0.24* 0.66 EGFR mL/min/1.73 m2 155 151 111 GLUCOSE mg/dL 142* 105* 162* CALCIUM mg/dL 8.1* 8.4 8.4 Results from last 7 days Lab Units 03/15/25 0405 03/14/25 0556 03/13/25 1109 ALT U/L 25 38 47 AST U/L 61* 79* 112* ALK PHOS U/L 132 156* 200* BILIRUBIN TOTAL mg/dL 13.4* 15.1* 18.3* Results from last 7 days Lab Units 03/15/25 0405 03/14/25 0556 03/13/25 1109 INR 3.5* 3.1* 2.7* AUTHENTICATED BY JENSEN CABELLO, ON 03/15/2025 11:55:52 [facility] 03-15-2025 Consult note Associated Order (s): IP CONSULT TO DIETITIAN Nutrition Care Initial Assessment Reason for Completion: Nursing Referral (diet education: cirrhosis) Nutrition Diagnosis: Limited Adherence to Nutrition Related Recommendations related to cirrhosis as evidenced by diet hx, need for diet education. Nutrition Intervention/Recommendations: - Continue diet as ordered. - Continue medical food supplement. Nutrition Prescription: Diet: Oral nutrition supplements Boost Plus; Boost Plus (No Flavor Specified) 3 times daily with meals Oral nutrition supplements Boost Plus; Boost Plus (No Flavor Specified) At bedtime Diet Special; Cardiac; Sodium , 2 g; 2000 mL (1200 mL Nutrition / 800 mL Nursing) Nutrition Goals: Able to verbalize understanding of education provided Start Date:03/15/2025 Expected End Date:03/22/2025 Nutrition Education: . Educated on MNT for cirrhosis - low sodium, fluid restricted, adequate/increased protein diet and rationale. Reviewed foods high in sodium and alternatives to those foods, label reading, EtOH cessation, ways to add flavor without adding salt. Answered patient's questions. Provided Nutrition Care Manual handouts: Cirrhosis Nutrition Therapy, Low-Sodium Nutrition Therapy, Fluid-Restricted Nutrition Therapy, Sodium-Free Flavoring Tips. Learner: patient Educated on: MNT for cirrhosis Readiness: acceptance Method: explanation and handout Response: verbalizes understanding Expected Compliance: fair-good Assessment: Pertinent Clinical Information: PMH includes: seizures, HTN, HLD, EtOH cirrhosis. Hospitalization earlier this month with decompensated cirrhosis and large volume ascites but left AMA. Admitted with c/o abdominal pain, continued decompensated cirrhosis with ascites, hyponatremia. S/p paracentesis 03/14 (5 L removed). S/p EGD 03/14: nonbleeding gastric ulcer. +lasix today. +MVI, thiamine, folic acid, MVI. Past Medical History: Diagnosis Date Alcoholism (HCC) Cirrhosis (HCC) Glaucoma Hyperlipidemia Hypertension Seizure disorder (HCC) Seizures (HCC) Past Surgical History: Procedure Laterality Date EGD N/A 03/14/2025 Procedure: ESOPHAGOGASTRODUODENOSCOPY; Surgeon: Angella Yu MD; Location: [facility]; Service: Gastroenterology; Laterality: N/A; GLAUCOMA SURGERY Left 2012 JOINT REPLACEMENT MOLE REMOVAL 2015 PARTIAL HIP ARTHROPLASTY Left 2007 Seizures N/A TONSILLECTOMY 1981 Pt/family comments: Pt reports decreased appetite r/t ascites [employer] RES[employer]SE [employer]IST. His typical intake on work days (works 6am-6pm) is skipping breakfast/only having juice in the morning, lunch of a frozen burrito or Hot Pocket with pineapple (and drinks the juice), drinks 2-3 (16 oz) Gatorade and only consumed 2-3 beers in the evening (varying size and EtOH content). On non-work days, he consumes breakfast of [place] toast, eggs, whiteside; lunch of salad with ham, cheese, shredded carrots, and salad dressing; dinner of grilled food like hot dogs, steak, burgers; may snack on Cheezits; and drinks beer those nights too. Adds salt to food as well. Doesn't have a scale to weigh himself at home or work but seems willing to buy one to track fluid status. Has been taking Boost ordered this admission. Current ht:5' 11 Current wt:.104.2 kg (229 lb 11.5 oz) Body mass index is 32.04 kg/m . BMI Classification: Class I Obesity (30-34.9) Wt Readings from Last 10 Encounters: 03/15/25 104.2 kg (229 lb 11.5 oz) 03/11/25 95.3 kg (210 lb) 06/09/17 88.9 kg (196 lb) 02/01/16 89.4 kg (197 lb) 10/11/15 91.8 kg (202 lb 6.4 oz) 10/08/15 89.4 kg (197 lb) 10/08/15 89.5 kg (197 lb 6.4 oz) 05/04/15 88.5 kg (195 lb) 03/29/15 89.4 kg (197 lb) Noted dry wt 210#. Significant Weight Change (per ASPEN criteria): No Diet prior to assessment: Oral nutrition supplements Boost Plus; Boost Plus (No Flavor Specified) 3 times daily with meals Oral nutrition supplements Boost Plus; Boost Plus (No Flavor Specified) At bedtime Diet Special; Cardiac; Sodium , 2 g; 2000 mL (1200 mL Nutrition / 800 mL Nursing) Recent PO intake: 50-75%, 0-25% Current PO intake likely does not meet estimated needs Barriers to adequate nutrition intake: poor appetite Nutrition Related Allergies/Intolerances: No Nutrition Related Allergies noted Cultural or Baptist Dietary Needs :No Cultural or Baptist Dietary needs noted Difficulty Chewing or Swallowing: no issues noted. Teeth: Missing teeth Fluid status: non-pitting edema BLE, ascites Skin Integrity: no wounds documented GI Function (per nursing documentation): Abdomen Inspection: Soft, Rounded, Distended, Gross ascites, Bowel Sounds (All Quadrants): Active, Last BM Date: 03/14/25 (on scheduled lactulose), Passing Flatus: Yes, GI Symptoms: None Nutrition-Focused Physical Exam: no overt s/sx of fat/muscle loss on visual exam Nutrition Focus Physical Exam Type: Visual Regions Assessed Orbital: WNL Temporal: WNL Clavicular: WNL Interosseous: WNL Upper Arm: WNL - Pt notes less edema in legs and abdomen is small since paracentesis, denies other changes in body habitus. Home Medications Reviewed: Yes. Pertinent: synthroid Nutrient Depleting Medications (active inpatient/home meds): Loop Diuretic (e.g.,Furosemide, Bumetanide, Ethacrynic Acid, or Torsemide ) Labs: Recent Labs 03/13/25 1109 03/14/25 0556 03/15/25 0405 NA 132* 132* 133* K 3.4* 3.7 3.8 BICARB 24 25 26 CL 97* 99 99 GLUCOSE 162* 105* 142* BUN 3* 3* 6* CREATININE 0.66 0.24* 0.22* CALCIUM 8.4 8.4 8.1* MG -- 1.8 -- Lab Results Component Value Date ALBUMIN 3.1 (L) 03/15/2025 No results found for: B12, FOLATE, VITD, IRON, FERRITIN, ZINC No results for input(s): POCGLU in the last 72 hours. No results found for: HGBA1C Scheduled Meds: ceFAZolin (ANCEF) IVPB 2,000 mg Intravenous Q8H enoxaparin (LOVENOX) injection 40 mg Subcutaneous Daily folic acid 1 mg Oral Daily furosemide 40 mg Oral Daily gabapentin 600 mg Oral Q12H MAURICE lactulose 10 g Oral TID levETIRAcetam 750 mg Oral BID levothyroxine 50 mcg Oral Daily multivitamin 1 tablet Oral Daily rifAXIMin 550 mg Oral BID sodium chloride (PF) 5 mL Intravenous Q8H MAURICE spironolactone 100 mg Oral Daily thiamine 200 mg Oral Daily Assessed By: Aurora Lopez RD, LD T [facility] 03-15-2025 Consult note Associated Order (s): IP CONSULT TO DIETITIAN Nutrition Care Initial Assessment Reason for Completion: Nursing Referral (diet education: cirrhosis) Nutrition Diagnosis: Limited Adherence to Nutrition Related Recommendations related to cirrhosis as evidenced by diet hx, need for diet education. Nutrition Intervention/Recommendations: - Continue diet as ordered. - Continue medical food supplement. Nutrition Prescription: Diet: Oral nutrition supplements Boost Plus; Boost Plus (No Flavor Specified) 3 times daily with meals Oral nutrition supplements Boost Plus; Boost Plus (No Flavor Specified) At bedtime Diet Special; Cardiac; Sodium , 2 g; 2000 mL (1200 mL Nutrition / 800 mL Nursing) Nutrition Goals: Able to verbalize understanding of education provided Start Date:03/15/2025 Expected End Date:03/22/2025 Nutrition Education: . Educated on MNT for cirrhosis - low sodium, fluid restricted, adequate/increased protein diet and rationale. Reviewed foods high in sodium and alternatives to those foods, label reading, EtOH cessation, ways to add flavor without adding salt. Answered patient's questions. Provided Nutrition Care Manual handouts: Cirrhosis Nutrition Therapy, Low-Sodium Nutrition Therapy, Fluid-Restricted Nutrition Therapy, Sodium-Free Flavoring Tips. Learner: patient Educated on: MNT for cirrhosis Readiness: acceptance Method: explanation and handout Response: verbalizes understanding Expected Compliance: fair-good Assessment: Pertinent Clinical Information: PMH includes: seizures, HTN, HLD, EtOH cirrhosis. Hospitalization earlier this month with decompensated cirrhosis and large volume ascites but left AMA. Admitted with c/o abdominal pain, continued decompensated cirrhosis with ascites, hyponatremia. S/p paracentesis 03/14 (5 L removed). S/p EGD 03/14: nonbleeding gastric ulcer. +lasix today. +MVI, thiamine, folic acid, MVI. Past Medical History: Diagnosis Date Alcoholism (HCC) Cirrhosis (HCC) Glaucoma Hyperlipidemia Hypertension Seizure disorder (HCC) Seizures (HCC) Past Surgical History: Procedure Laterality Date EGD N/A 03/14/2025 Procedure: ESOPHAGOGASTRODUODENOSCOPY; Surgeon: Angella Yu MD; Location: [facility]; Service: Gastroenterology; Laterality: N/A; GLAUCOMA SURGERY Left 2012 JOINT REPLACEMENT MOLE REMOVAL 2014 PARTIAL HIP ARTHROPLASTY Left 2007 Seizures N/A TONSILLECTOMY 1980 Pt/family comments: Pt reports decreased appetite r/t ascites [employer] RESP[employer]SE [employer]IST. His typical intake on work days (works 6am-6pm) is skipping breakfast/only having juice in the morning, lunch of a frozen burrito or Hot Pocket with pineapple (and drinks the juice), drinks 2-3 (16 oz) Gatorade and only consumed 2-3 beers in the evening (varying size and EtOH content). On non-work days, he consumes breakfast of [place] toast, eggs, whiteside; lunch of salad with ham, cheese, shredded carrots, and salad dressing; dinner of grilled food like hot dogs, steak, burgers; may snack on Cheezits; and drinks beer those nights too. Adds salt to food as well. Doesn't have a scale to weigh himself at home or work but seems willing to buy one to track fluid status. Has been taking Boost ordered this admission. Current ht: Current wt:.104.2 kg (229 lb 11.5 oz) Body mass index is 32.04 kg/m . BMI Classification: Class I Obesity (30-34.9) Wt Readings from Last 10 Encounters: 03/15/25 104.2 kg (229 lb 11.5 oz) 03/11/25 95.3 kg (210 lb) 06/09/17 88.9 kg (196 lb) 02/01/16 89.4 kg (197 lb) 10/11/15 91.8 kg (202 lb 6.4 oz) 10/08/15 89.4 kg (197 lb) 10/08/15 89.5 kg (197 lb 6.4 oz) 05/04/15 88.5 kg (195 lb) 03/29/15 89.4 kg (197 lb) Noted dry wt 210#. Significant Weight Change (per ASPEN criteria): No Diet prior to assessment: Oral nutrition supplements Boost Plus; Boost Plus (No Flavor Specified) 3 times daily with meals Oral nutrition supplements Boost Plus; Boost Plus (No Flavor Specified) At bedtime Diet Special; Cardiac; Sodium , 2 g; 2000 mL (1200 mL Nutrition / 800 mL Nursing) Recent PO intake: 50-75%, 0-25% Current PO intake likely does not meet estimated needs Barriers to adequate nutrition intake: poor appetite Nutrition Related Allergies/Intolerances: No Nutrition Related Allergies noted Cultural or Baptist Dietary Needs :No Cultural or Baptist Dietary needs noted Difficulty Chewing or Swallowing: no issues noted. Teeth: Missing teeth Fluid status: non-pitting edema BLE, ascites Skin Integrity: no wounds documented GI Function (per nursing documentation): Abdomen Inspection: Soft, Rounded, Distended, Gross ascites, Bowel Sounds (All Quadrants): Active, Last BM Date: 03/14/25 (on scheduled lactulose), Passing Flatus: Yes, GI Symptoms: None Nutrition-Focused Physical Exam: no overt s/sx of fat/muscle loss on visual exam Nutrition Focus Physical Exam Type: Visual Regions Assessed Orbital: WNL Temporal: WNL Clavicular: WNL Interosseous: WNL Upper Arm: WNL - Pt notes less edema in legs and abdomen is small since paracentesis, denies other changes in body habitus. Home Medications Reviewed: Yes. Pertinent: synthroid Nutrient Depleting Medications (active inpatient/home meds): Loop Diuretic (e.g.,Furosemide, Bumetanide, Ethacrynic Acid, or Torsemide ) Labs: Recent Labs 03/13/25 1109 03/14/25 0556 03/15/25 0405 NA 132* 132* 133* K 3.4* 3.7 3.8 BICARB 24 25 26 CL 97* 99 99 GLUCOSE 162* 105* 142* BUN 3* 3* 6* CREATININE 0.66 0.24* 0.22* CALCIUM 8.4 8.4 8.1* MG -- 1.8 -- Lab Results Component Value Date ALBUMIN 3.1 (L) 03/15/2025 No results found for: B12, FOLATE, VITD, IRON, FERRITIN, ZINC No results for input(s): POCGLU in the last 72 hours. No results found for: HGBA1C Scheduled Meds: ceFAZolin (ANCEF) IVPB 2,000 mg Intravenous Q8H enoxaparin (LOVENOX) injection 40 mg Subcutaneous Daily folic acid 1 mg Oral Daily furosemide 40 mg Oral Daily gabapentin 600 mg Oral Q12H MAURICE lactulose 10 g Oral TID levETIRAcetam 750 mg Oral BID levothyroxine 50 mcg Oral Daily multivitamin 1 tablet Oral Daily rifAXIMin 550 mg Oral BID sodium chloride (PF) 5 mL Intravenous Q8H MAURICE spironolactone 100 mg Oral Daily thiamine 200 mg Oral Daily Assessed By: Aurora Lopez RD, LD Associated Order(s): IP CONSULT TO HEPATOLOGY Resident Consult Note Patient Name: Aryan Valle DOB: 1970 Admit Date: [id number] Assessment and Plan Patient is a 55 y.o. 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 Hepatology is consulted for decompensated cirrhosis. Decompensated Cirrhosis - Likely 2/2 alcohol, drinks 3 beers daily. At his most, was drinking 30- pack of beers/ day, hasn't been doing this for ~a decade now, slowly decreasing. No prior autoimmune workup. He states he follows with hepatology, Dr. Parr in [place] but is interested in establishing with [facility]. - Alcohol level elevated at 39 on admit. 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 No history of seizures from alcohol withdrawal. - Baseline weight around 210 pounds. - EV screen: He reports EGD multiple years ago that was normal however unable to see these records. Due for repeat EGD, likely plan to do during this admission. - HE: On home lactulose 20g TID. Continue inpatient. Consider starting rifaximin. - Ascites: s/p paracentesis 2022 in [place] however unable to see these records. He reports they drained a few liters off, states there was no infection. VIR consulted for paracentesis. On home lasix 20 mg BID, aldactone 25 mg BID. His diuretic regimen will need adjusted prior to discharge, ideally to once daily medications as he sometimes misses PM dose. Give albumin now, await paracentesis and likely start IV lasix 40 mg BID with aldactone later today/ tomorrow. - HCC: No suspicious liver lesions noted on admit imaging, repeat in 6 months. Ordered AFP. - Add PETH, hepatitis profile. Recommend alcohol cessation. Once able to eat, recommend 2g Na/ 2L fl restriction. Recommend hepatitis A/ B vaccination. Will likely want to follow up with [facility] hepatology on discharge. Daily MELD labs. Daily weights, strict I's and O's. Add boosts TID and at bedtime. MELD 3.0: 32 at 03/14/2025 5:56 AM MELD-Na: 31 at 03/14/2025 5:56 AM Calculated from: Serum Creatinine: 0.24 mg/dL (Using min of 1 mg/dL) at 03/14/2025 5:56 AM Serum Sodium: 132 mmol/L at 03/14/2025 5:56 AM Total Bilirubin: 15.1 mg/dL at 03/14/2025 5:56 AM Serum Albumin: 2.2 g/dL at 03/14/2025 5:56 AM INR(ratio): 3.1 at 03/14/2025 5:56 AM Age at listing (hypothetical): 55 years Sex: Male at 03/14/2025 5:56 AM Shandra Keenan DO Internal Medicine PGY3 Presenting Symptom: decompensated cirrhosis, ascites History of Present Illness Aryan Valle is a 55 y.o. male who presented to hospital with abdominal distention and leg cramping. He states he has noticed abdominal swelling and leg swelling for the past few months now. He initially presented to [place] and was transferred to [facility], he then tells me he was transferred to [facility]. He says he was never admitted to the hospital, per documentation he left AMA. He then represented to the ED on 03/11 with abdominal distention and was found to have ascites but refused admission. He states he has followed with hepatology previously and was*, last saw Dr. Parr last year. He states he has not been following up with Dr. Parr regularly. He drinks about 3 beers per day, last beer night prior to admission 2 nights ago., He has been drinking for multiple decades, says at one point he was drinking 30 beers per day but has since been slowly cutting down. He denies tobacco or illicit substance use. He does not take Tylenol at home. He states he takes all of his medications but sometimes misses his night dose of diuretic however not often. He states his urine output was dropping off but since being here has picked up a little bit. He takes lactulose at home twice daily, he states he has a few bowel movements per day but they are runny and low volume. He states his normal weight is 210 pounds and has noticed he has been retaining fluid in his abdomen, scrotum and legs. He states his legs feel tight and painful. He states his last EGD was multiple years ago, he reports it was normal, unable to see these records. Also reportedly had paracentesis in 2022 and a few liters were taken off. He states this fluid was negative for infection. He is extremely nervous about paracentesis and states he had a lot of pain with this procedure previously. He has had a good appetite recently, denies unintentional weight loss. Past Medical/ Surgical/ Social/ Family History Past Medical History: Diagnosis Date Alcoholism (HCC) Cirrhosis (HCC) Glaucoma Hyperlipidemia Hypertension Seizure disorder (HCC) Seizures (HCC) Past Surgical History: Procedure Laterality Date GLAUCOMA SURGERY Left 2013 JOINT REPLACEMENT MOLE REMOVAL 2015 PARTIAL HIP ARTHROPLASTY Left 2007 Seizures N/A TONSILLECTOMY 1981 History reviewed. No pertinent family history. Social History [1] Patient Allergies I have reviewed the patient's allergies. Patient has no known allergies. Patient Review of Systems Review of Systems Constitutional: Positive for unexpected weight change. Negative for appetite change. Cardiovascular: Positive for leg swelling. Gastrointestinal: Positive for abdominal distention, abdominal pain and diarrhea. Negative for constipation, nausea and vomiting. Endocrine: Positive for polyuria. Genitourinary: Negative for difficulty urinating. Neurological: Positive for weakness. Psychiatric/Behavioral: The patient is nervous/anxious. Physical Exam Vital Signs: BP 125/73 Pulse 87 Temp 98.2 F (36.8 C) (Oral) Resp 16 Ht 5' 11 Wt 105.1 kg (231 lb 11.3 oz) SpO2 94% BMI 32.32 kg/m Physical Exam Vitals reviewed. Constitutional: General: He is not in acute distress. Appearance: He is not ill-appearing, toxic-appearing or diaphoretic. Eyes: General: Scleral icterus present. Cardiovascular: Rate and Rhythm: Normal rate and regular rhythm. Pulses: Normal pulses. Pulmonary: Effort: Pulmonary effort is normal. No respiratory distress. Abdominal: General: There is distension. Palpations: Abdomen is soft. Tenderness: There is abdominal tenderness. There is no guarding or rebound. Musculoskeletal: General: Swelling present. Right lower leg: Edema present. Left lower leg: Edema present. Skin: General: Skin is warm and dry. Coloration: Skin is jaundiced. Findings: Lesion (LLE erythema/ warmth consistent with cellulitis) present. Neurological: Mental Status: He is alert and oriented to person, place, and time. Comments: Asterixis present Psychiatric: Mood and Affect: Mood is anxious. Additional Data - Labs/ Radiology/ etc. Recent Labs 03/11/25 1834 03/13/25 1109 03/14/25 0556 NA 131* 132* 132* K 3.4* 3.4* 3.7 CL 96* 97* 99 BICARB BUN 4* 3* 3* CREATININE 0.65 0.66 0.24* GLUCOSE 176* 162* 105* Recent Labs 03/11/25 1834 03/13/25 1109 WBC 4.22* 3.73* HGB 10.5* 10.2* HCT 30.2* 30.1* PLT 78* 82* Lab Results Component Value Date ALT 38 03/14/2025 AST 79 (H) 03/14/2025 ALKPHOS 156 (H) 03/14/2025 BILITOT 15.1 (H) 03/14/2025 ALBUMIN 2.2 (L) 03/14/2025 Recent Labs 03/11/25 1834 03/13/25 1109 03/14/25 0556 INR 2.5* 2.7* 3.1* No results found for: HGBA1C Patient Home Medications No current outpatient medications on file. [1] Social History Socioeconomic History Marital status: Single Tobacco Use Smoking status: Never Smokeless tobacco: Current Substance and Sexual Activity Alcohol use: Yes Alcohol/week: 0.0 standard drinks of alcohol Drug use: No Social Drivers of Health Food Insecurity: No Food Insecurity (03/13/2025) Hunger Vital Sign Worried About Running Out of Food in the Last Year: Never true Ran Out of Food in the Last Year: Never true Transportation Needs: No Transportation Needs (03/13/2025) PRAPARE - Transportation Lack of Transportation (Medical): No Lack of Transportation (Non-Medical): No Housing Stability: High Risk (03/13/2025) Housing Stability Vital Sign Unable to Pay for Housing in the Last Year: Yes Number of Times Moved in the Last Year: 0 Homeless in the Last Year: No Cosigned by John Becerril MD at 03/14/2025 10:47 AM EDT Associated attestation - John Becerril MD - 03/14/2025 10:47 AM EDT Gastroenterology/Hepatology Resident Physician Attestation I have independently seen and examined the patient with the Resident Physician I have reviewed the available labs. I have reviewed the available imaging studies. Review of Systems: All remaining systems were reviewed and are negative except for those mentioned in the HPI Physical examination: CONSTITUTIONAL: AAO x 1 with asterixis, NAD HEENT: (+) icterus ABDOMEN: Flat, negative hepatosplenomegaly, soft and non-tender. SKIN: (+) jaundice I agree with the assessment and plan as outlined below with the following additions/exceptions: 55 y.o. 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 Hepatology is consulted for decompensated cirrhosis. MELD 3.0: 32 at 03/14/2025 5:56 AM MELD-Na: 31 at 03/14/2025 5:56 AM Calculated from: Serum Creatinine: 0.24 mg/dL (Using min of 1 mg/dL) at 03/14/2025 5:56 AM Serum Sodium: 132 mmol/L at 03/14/2025 5:56 AM Total Bilirubin: 15.1 mg/dL at 03/14/2025 5:56 AM Serum Albumin: 2.2 g/dL at 03/14/2025 5:56 AM INR(ratio): 3.1 at 03/14/2025 5:56 AM Age at listing (hypothetical): 55 years Sex: Male at 03/14/2025 5:56 AM PLAN: - Decompensated cirrhosis: Etiology thought due to ALD. Actively drinking. Follow MELD labs daily while in patient. Patient would not be a candidate for OLT evaluation given ongoing alcohol use despite diagnosis and following with local GI - Ascites: Recommend diagnostic/therapeutic paracentesis with fluid studies for cell count/diff, albumin and protein. If no evidence of SBP, can stop Ceftriaxone and will start diuretics. Recommend 2 gram low sodium diet and Nutrition consult for education. Hold diuretics. 25% albumin, 25 grams every 6 hours x 4 doses. Order cardiac echo. [Home dose diuretics: lasix 20 mg BID and spironolactone 25 mg BID] - Portal Hypertension: Plan for EGD today to screen for EV. EGD years ago per patient (no records, no results in [facility]), patient told it was normal. - HE: Grade 2 overt HE on admission with asterixis despite home lactulose. Recommend broad infectious eval. Continue lactulose titrated to 3-5 soft stools daily and improvement in mental status.Continue home lactulose titrated to 3-5 soft stools daily. Patient with recurrent overt HE despite lactulose monotherapy. Start Rifaximin 550 mg BID and send discharge Rx to [facility] on day 1 of admission to expedite Prior Authorization and Meds-to-Bed program. Write Rx for 90 day script to reduce likelihood of 30 day readmission for recurrent HE - Alcoholic Liver Disease (ALD): Actively drinking despite diagnosis and following with GI previously. PETH ordered. Extensive conversation regarding my concern that the patient's liver disease is due to alcohol. I recommended lifelong abstinence form alcohol as well as AOD counseling. Recommend Thiamine, Folate and close monitoring for withdrawal. For patients at high risk for severe withdrawal, recommend high dose Thiamine replacement 500 mg IV TID x 5 days followed by 100 mg daily. Recommend Phenobarb instead of CIWA for withdrawal. Recommend Naltrexone or Acamprosate to aid with cessation - Cellulitis: LLE cellulitis. On Keflex John Becerril MD Associated Order(s): IP CONSULT TO INTERVENTIONAL RADIOLOGY Images from the original note were not included. Vascular & Interventional Radiology Provided By [facility] FOR PROVIDER USE ONLY: [facility] Interventional Radiology: [phone] [facility] Interventional Radiology: [phone] [facility] Interventional Radiology: [phone] 15/06 VIR physician contact: [phone]) FOR PATIENT AND PROVIDERS: [facility]: [phone] [email or web address] Patient Name: Aryan Valle : 1970 Code Status: Full Code VIR consult received for USg diagnostic paracentesis. Pertinent past medical/surgical history: Aryan Valle is a 55 YO male with a PMH of seizures, HTN, cirrhosis, alcohol use disorder who presented to [facility] with abdominal pain. He was found to have ascites on CT imaging, so we have been consulted to perform a diagnostic paracentesis. Based upon chart review, patient is appropriate to have this procedure and will be scheduled as able. The patient's chart to include history and physical, pertinent allergies, code status, laboratory and available pertinent imaging were reviewed. The patient will be scheduled for the requested USg diagnostic paracentesis. L: 3 Preprocedural needs: No prep needed; patient does not need to be NPO for requested procedure. Procedure date and time for in-patients TBD by the VIR control desk @ [phone] pending emergent cases and other scheduling demands. Please call the [facility] VIR out-patient office @ [phone] (Option 0) if requested procedure is desired after discharge. Pertinent Information: Antiplatelet/Anticoagulation: Lovenox Allergies: Patient has no known allergies. Laboratory: Lab Results Component Value Date BUN 3 (L) 03/13/2025 CREATININE 0.66 03/13/2025 EGFR 111 03/13/2025 Lab Results Component Value Date PROTIME 28.5 (H) 03/13/2025 INR 2.7 (H) 03/13/2025 Lab Results Component Value Date WBC 3.73 (L) 03/13/2025 RBC 2.55 (L) 03/13/2025 HGB 10.2 (L) 03/13/2025 HCT 30.1 (L) 03/13/2025 PLT 82 (L) 03/13/2025 Pertinent image(s) (if applicable): VIR Jane-procedure lab value guideline: Table 1. LOW Bleeding Risk Laboratory Guidelines Low Bleeding Risk Procedures Target Laboratory Values3 Bone Marrow Biopsy [Platelet Count - N/A] Catheter exchanges (gastrostomy, biliary, nephrostomy, abscess, including gastrostomy/gastrojejunostomy conversions) CVC tunneled >/= 8 Fr* Diagnostic venography and select venous interventions: pelvis and extremities Dialysis shunt interventions IVC filter placement and removal Non-tunneled chest tube placement for pleural effusion Non-tunneled venous access and removal (including PICC placement) and Tunneled venous access </= 7 Fr Paracentesis Peripheral nerve blocks, joint, and musculoskeletal injections Sacroiliac joint injection and sacral lateral branch blocks Superficial abscess drainage or biopsy (palpable lesion, lymph node, soft tissue, breast, thyroid) Thoracentesis Trans jugular liver biopsy Trigger point injections including piriformis Tunneled drainage catheter placement* PT/INR < 3.0 Platelets > 20,000/mcL (Consider transfusing platelets if <20,000/mcL) If patient with Chronic Liver Disease (based on expert opinion): PT/INR < 3.0 (Consider Vitamin K infusion if INR >3.0) Platelets > 20,000/mcL (Transfuse platelets if <20,000/mcL in patients with a large spleen) Fibrinogen > 100mg/dL (Consider cryoprecipitate if <100mg/dL) *If on Direct Oral Anticoagulant (DOAC), follow HIGH Bleeding Risk recommendations in Table 2 and Table 3 Table 2. HIGH Bleeding Risk Laboratory Guidelines: HIGH Bleeding Risk Procedures Target Laboratory Values3 Ablations: solid organs, bone, soft tissue, lung Arterial diagnostic interventions: aortic, pelvic, mesenteric, peripheral Biliary interventions (including cholecystostomy tube placement) Catheter directed thrombolysis/thrombectomy- DVT, PE, portal vein (Highly case dependent) Deep abscess drainage (e.g., lung parenchyma, abdominal, pelvic, retroperitoneal) Deep non organ biopsies (e.g., spine, soft tissue in intra-abdominal, retroperitoneal, pelvic compartments) Gastrostomy/gastrojejunostomy placement IVC filter removal complex Lumbar puncture Lymphangiography Portal vein interventions Solid organ biopsies Spine procedures with risk of spinal or epidural hematoma (e.g., kyphoplasty, vertebroplasty, epidural injections, facet blocks) Trans jugular intrahepatic portosystemic shunt Port placement/removal (Buried) Urinary tract interventions (including nephrostomy tube placement, ureteral dilation, stone removal) Venous interventions: intrathoracic and MECHANICAL TECHNICAL SERVICE SPECIALIST intervention PT/INR < 1.8 (if arterial access, femoral: INR < 1.8, radial: INR < 2.2) Platelets > 50,000/mcL (Consider transfusing platelets if <50,000/mcL) If patient with Chronic Liver Disease (based on expert opinion): PT/INR < 2.5 (Give Vitamin K 10mg infusion if INR >2.5) Platelets > 30,000/mcL (Transfuse platelets if <30,000/mcL in patients with a large spleen) Fibrinogen > 100mg/dL (Consider cryoprecipitate if <100mg/dL) VIR Jane-procedure anticoagulant/antiplatelet guideline (pending P&T review 11/2020): Medication LOW Bleeding Risk^ HIGH Bleeding Risk^ Reinitiation Abciximab (ReoPro ) Hold 24 hrs before procedure Hold 24 hrs before procedure Patient undergoing PCI or within immediate periprocedural period from cardiac intervention; use multidisciplinary, shared decision-making Apixaban (Eliquis ) Do not hold CrCl > 50mL/min: Hold 4 doses CrCl < 30-50mL/min: Hold 6 doses 24 hrs Aspirin OR Aspirin/Dipyridamole (Aggrenox ) Holding strategy for aspirin requires patient-specific approach; for high risk or complex cardiovascular cases, multidisciplinary, shared decision-making is suggested Do not hold Hold for 3-5 days (assumes multidisciplinary evaluation and agreement to interrupt therapy) Resume the day after procedure Argatroban (Acova ) Do not hold Hold 2-4 hrs: check aPTT 4-6 hrs Betrixaban (Bevyxxa ) Do not hold Hold for 3 doses 24 hrs Bivalirudin (Angiomax ) Do not hold Hold 2-4 hrs: check aPTT 4-6 hrs Cangrelor (Kengreal ) Defer procedure until therapy completed; if emergent, multidisciplinary discussion with Cardiology is recommended Defer procedure until therapy completed; if emergent, multidisciplinary discussion with Cardiology is recommended Patient undergoing PCI or within immediate periprocedural period from cardiac intervention; Use multidisciplinary, shared-decision making Cilostazol (Pletal ) Do not hold Do not hold N/A Clopidogrel (Plavix ) Do not hold Hold for 5 days before procedure 75mg Dose: 6 hrs after procedure Loading Dose (300-600mg): 24 hrs after procedure Dabigatran (Pradaxa ) Do not hold CrCl > 50mL/min: Hold 4 doses CrCl < 30-50mL/min: Hold 6-8 doses Consider checking thrombin time with impaired renal function 24 hrs Edoxaban (Savaysa ) Do not hold Hold for 2 doses 24 hrs Eptifibatide (Integrilin ) Hold 4-8 hrs before procedure Hold 4-8 hrs before procedure Patient undergoing PCI or within immediate periprocedural period from cardiac intervention; Use multidisciplinary, shared decision-making Fondaparinux (Arixtra ) Do not hold CrCl > 50mL/min: Hold 2-3 Days CrCl < 50mL/min: Hold 3-5 days 24 hrs LMWH: Enoxaparin (Lovenox ), Dalteparin (Fragmin ) Do not hold Check anti-Xa level if renal function impaired Prophylactic Enoxaparin: Hold 1 dose Therapeutic Enoxaparin: Hold 2 doses or 24 hrs Dalteparin: Hold 1 dose 12 hrs NSAIDS (short-, intermediate-, and long-acting) Do not hold No recommendations N/A Prasugrel (Effient ) Do not hold Hold for 7 days before procedure Resume the day after the procedure Rivaroxaban (Xarelto ) Do not hold CrCl > 50mL/min: Hold 2 doses CrCl 30-50mL/min: Hold 2 doses CrCl < 15-30mL/min: Hold 3 doses 24 hrs Ticagrelor (Brilinta ) Do not hold Hold for 5 days before procedure Resume the day after the procedure Tirofiban (Aggrastat ) Hold 4-8 hrs before procedure Hold 4-8 hrs before procedure Patient undergoing PCI or within immediate periprocedural period from cardiac intervention; Use multidisciplinary, shared decision-making Unfractionated Heparin Do not hold IV Heparin: Hold 4-6 hrs before procedure; check aPTT or anti-Xa level SubQ Heparin: Hold 6 hrs before procedure 6-8 hrs Warfarin (Coumadin ) Target INR < 3 Hold 5 days until INR < 1.8 Low Bleeding Risk: N/A or same day for bridged patients High Bleeding Risk: Resume day after procedure; Consider bridging after procedure for high thrombosis risk cases; Use multidisciplinary, shared-decision making to balance bleeding vs. thrombotic risks. Amber Jackson CNP [facility] 03/13/2025 Cosigned by Du Lee MD at 03/14/2025 2:52 PM EDT documented in this encounter [facility] 03-14-2025 Note [facility] Inpatient Pro pretty Note 03/14/2025 Aryan Valle 1970 [id number] Assessment/Plan: Aryan Valle is a 55 y.o. male with a history of seizures, HTN, cirrhosis, alcohol use disorder, admission at [facility] 02/24/25 for abdominal distention but left AMA, ED visit 03/11/25 for decompensated cirrhosis and large volume ascites who declined admission to [facility] or transfer to tertiary hospital for hepatology evaluation who presented to [facility] 03/13/2025 with ongoing abdominal pain. Decompensated Cirrhosis with Ascites: Lost to follow-up. Complicated by ascites and HE. CT A/P showed cirrhosis, large volume ascites, hepatomegaly suggestive of portal hypertension. MELD-Na 29. S/p 5L paracentesis 03/14/25. EGD 03/14/2025 showed PHG. Currently off diuretics. Hepatology following. Hepatic encephalopathy: Grade 2 on admission despite home lactulose. Continue lactulose and rifaximin. Process started for prior Auth. Improved to baseline. Coagulopathy: Admit INR 2.7. In the setting of cirrhosis. No active bleeding. Thrombocytopenia: Unknown baseline. Admit platelets 82. Suspected due to above. Hyponatremia: Admit sodium 132 in the setting of anasarca and cirrhosis. Alcohol Use Disorder: denied history of withdrawal. Drinks 3 beers daily. Last drink 03/12/2025. Continued CIWA, vitamins. LLE Cellulitis: Increased warmth and erythema along mid anterior choe, continued ancef. Gastric ulcer: EGD 03/14/2025 showed nonbleeding gastric ulcer. GI recommended 12 weeks PPI twice daily, repeat EGD in 3 months. Urinary retention: Difficulty initiating and maintaining stream per patient. Ordered PVR but may not be accurate given large volume of ascites. Monitor Left inguinal hernia: Follows with surgery outpatient. CT /P showed ascites within left inguinal hernia without bowel involvement. Follow-up outpatient. Code status: full code DVT Prophylaxis: lovenox Medication Reconciliation: Reviewed using bone density technician Current living situation: home Expected Disposition: home Estimated discharge date: TBD Medically Ready for Discharge: no decomp cirrhosis Subjective: Patient seen following paracentesis, reports feeling much better. He denies having abdominal pain prior to arrival, just fullness. He has PHG and a gastric ulcer on endoscopy on PPI therapy. He is receiving IV albumin given large volume paracentesis. Labs are mostly stable, not triggering CIWA, hemodynamically stable with only mild hypotension. Physical Exam: BP 110/72 (BP Location: Right arm, Patient Position: Lying) Pulse 82 Temp 97.9 degrees F (36.6 degrees C) (Temporal) Resp 18 Ht 5' 11 Wt 97.5 kg (215 lb) SpO2 98% BMI 29.99 kg/m General: NAD Eyes: EOMI, sclera clear ENT: neck supple Cardiovascular: Regular rate, no murmur Respiratory: Clear to auscultation, symmetric air entry Gastrointestinal: Soft, non tender, non distended, positive bowel sounds Genitourinary: no CVA tenderness Musculoskeletal: no major joint deformity Skin: warm, dry, LLE erythema along anterior aspect of extremity Neuro: Alert, oriented x3, no focal motor deficits Psych: Mood appropriate Current Medications: albumin human 25 g Intravenous Once albumin human 25 g Intravenous Once albumin human 25 g Intravenous Q6H ceFAZolin (ANCEF) IVPB 2,000 mg Intravenous Q8H enoxaparin (LOVENOX) injection 40 mg Subcutaneous Daily folic acid 1 mg Oral Daily gabapentin 600 mg Oral Q12H MAURICE lactulose 10 g Oral TID levETIRAcetam 750 mg Oral BID levothyroxine 50 mcg Oral Daily multivitamin 1 tablet Oral Daily rifAXIMin 550 mg Oral BID sodium chloride (PF) 5 mL Intravenous Q8H MAURICE thiamine 200 mg Oral Daily Labs, Imaging and Studies reviewed: Results from last 7 days Lab Units 03/13/25 1109 03/11/25 1834 WBC K/mcL 3.73* 4.22* HGB g/dL 10.2* 10.5* HCT % 30.1* 30.2* PLT K/mcL 82* 78* Results from last 7 days Lab Units 03/14/25 0556 03/13/25 1109 03/11/25 1834 SODIUM mmol/L 132* 132* 131* POTASSIUM mmol/L 3.7 3.4* 3.4* CHLORIDE mmol/L 99 97* 96* BICARB mmol/L BUN mg/dL 3* 3* 4* CREATININE mg/dL 0.24* 0.66 0.65 EGFR mL/min/1.73 m2 151 111 112 GLUCOSE mg/dL 105* 162* 176* CALCIUM mg/dL 8.4 8.4 8.6 Results from last 7 days Lab Units 03/14/25 0556 03/13/25 1109 03/11/25 1834 ALT U/L 38 47 47 AST U/L 79* 112* 108* ALK PHOS U/L 156* 200* 208* BILIRUBIN TOTAL mg/dL 15.1* 18.3* 19.4* Results from last 7 days Lab Units 03/14/25 0556 03/13/25 1109 03/11/25 1834 INR 3.1* 2.7* 2.5* AUTHENTICATED BY JENSEN CABELLO ON 03/14/2025 13:28:24 [facility] 03-14-2025 Nurse Note Patient was discharged back to floor by transport, via stretcher, in stable condition. [facility] 03-14-2025 Nurse Note Patient was discharged back to floor by transport, via stretcher, in stable condition. Report given to floor nurseAfia RN . documented in this encounter [facility] 03-14-2025 Nurse Note Report given to floor nurse,DEONNA Oreilly . [facility] 03-14-2025 Attending History and physical note INTERVAL HISTORY AND PHYSICAL Patient Name: Aryan Valle Admit Date: [id number] MR #: [id number] : 1970 The H&P has been reviewed and the patient has been examined. I concur with the findings of the H&P. There are no significant changes. It is appropriate to proceed with the planned procedure. Angella Yu MD 03/14/2025 10:55 AM Source Note - Shandra Keenan DO - 03/14/2025 8:19 AM EDT Resident Consult Note Patient Name: Aryan Valle : 1970 Admit Date: 4201228 Assessment and Plan Patient is a 55 y.o. 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 Hepatology is consulted for decompensated cirrhosis. Decompensated Cirrhosis - Likely 2/2 alcohol, drinks 3 beers daily. At his most, was drinking 30- pack of beers/ day, hasn't been doing this for ~a decade now, slowly decreasing. No prior autoimmune workup. He states he follows with hepatology, Dr. Parr in [place] but is interested in establishing with [facility]. - Alcohol level elevated at 39 on admit. 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 No history of seizures from alcohol withdrawal. - Baseline weight around 210 pounds. - EV screen: He reports EGD multiple years ago that was normal however unable to see these records. Due for repeat EGD, likely plan to do during this admission. - HE: On home lactulose 20g TID. Continue inpatient. Consider starting rifaximin. - Ascites: s/p paracentesis 2022 in [place] however unable to see these records. He reports they drained a few liters off, states there was no infection. VIR consulted for paracentesis. On home lasix 20 mg BID, aldactone 25 mg BID. His diuretic regimen will need adjusted prior to discharge, ideally to once daily medications as he sometimes misses PM dose. Give albumin now, await paracentesis and likely start IV lasix 40 mg BID with aldactone later today/ tomorrow. - HCC: No suspicious liver lesions noted on admit imaging, repeat in 6 months. Ordered AFP. - Add PETH, hepatitis profile. Recommend alcohol cessation. Once able to eat, recommend 2g Na/ 2L fl restriction. Recommend hepatitis A/ B vaccination. Will likely want to follow up with [facility] hepatology on discharge. Daily MELD labs. Daily weights, strict I's and O's. Add boosts TID and at bedtime. MELD 3.0: 32 at 03/14/2025 5:56 AM MELD-Na: 31 at 03/14/2025 5:56 AM Calculated from: Serum Creatinine: 0.24 mg/dL (Using min of 1 mg/dL) at 03/14/2025 5:56 AM Serum Sodium: 132 mmol/L at 03/14/2025 5:56 AM Total Bilirubin: 15.1 mg/dL at 03/14/2025 5:56 AM Serum Albumin: 2.2 g/dL at 03/14/2025 5:56 AM INR(ratio): 3.1 at 03/14/2025 5:56 AM Age at listing (hypothetical): 55 years Sex: Male at 03/14/2025 5:56 AM Shandra Keenan DO Internal Medicine PGY3 Presenting Symptom: decompensated cirrhosis, ascites History of Present Illness Aryan Valle is a 55 y.o. male who presented to hospital with abdominal distention and leg cramping. He states he has noticed abdominal swelling and leg swelling for the past few months now. He initially presented to [place] and was transferred to [facility], he then tells me he was transferred to [facility]. He says he was never admitted to the hospital, per documentation he left AMA. He then represented to the ED on 03/11 with abdominal distention and was found to have ascites but refused admission. He states he has followed with hepatology previously and was*, last saw Dr. Parr last year. He states he has not been following up with Dr. Parr regularly. He drinks about 3 beers per day, last beer night prior to admission 2 nights ago., He has been drinking for multiple decades, says at one point he was drinking 30 beers per day but has since been slowly cutting down. He denies tobacco or illicit substance use. He does not take Tylenol at home. He states he takes all of his medications but sometimes misses his night dose of diuretic however not often. He states his urine output was dropping off but since being here has picked up a little bit. He takes lactulose at home twice daily, he states he has a few bowel movements per day but they are runny and low volume. He states his normal weight is 210 pounds and has noticed he has been retaining fluid in his abdomen, scrotum and legs. He states his legs feel tight and painful. He states his last EGD was multiple years ago, he reports it was normal, unable to see these records. Also reportedly had paracentesis in 2022 and a few liters were taken off. He states this fluid was negative for infection. He is extremely nervous about paracentesis and states he had a lot of pain with this procedure previously. He has had a good appetite recently, denies unintentional weight loss. Past Medical/ Surgical/ Social/ Family History Past Medical History: Diagnosis Date Alcoholism (HCC) Cirrhosis (HCC) Glaucoma Hyperlipidemia Hypertension Seizure disorder (HCC) Seizures (HCC) Past Surgical History: Procedure Laterality Date GLAUCOMA SURGERY Left 2013 JOINT REPLACEMENT MOLE REMOVAL 2015 PARTIAL HIP ARTHROPLASTY Left 2007 Seizures N/A TONSILLECTOMY 1981 History reviewed. No pertinent family history. Social History [1] Patient Allergies I have reviewed the patient's allergies. Patient has no known allergies. Patient Review of Systems Review of Systems Constitutional: Positive for unexpected weight change. Negative for appetite change. Cardiovascular: Positive for leg swelling. Gastrointestinal: Positive for abdominal distention, abdominal pain and diarrhea. Negative for constipation, nausea and vomiting. Endocrine: Positive for polyuria. Genitourinary: Negative for difficulty urinating. Neurological: Positive for weakness. Psychiatric/Behavioral: The patient is nervous/anxious. Physical Exam Vital Signs: BP 125/73 Pulse 87 Temp 98.2 F (36.8 C) (Oral) Resp 16 Ht 5' 11 Wt 105.1 kg (231 lb 11.3 oz) SpO2 94% BMI 32.32 kg/m Physical Exam Vitals reviewed. Constitutional: General: He is not in acute distress. Appearance: He is not ill-appearing, toxic-appearing or diaphoretic. Eyes: General: Scleral icterus present. Cardiovascular: Rate and Rhythm: Normal rate and regular rhythm. Pulses: Normal pulses. Pulmonary: Effort: Pulmonary effort is normal. No respiratory distress. Abdominal: General: There is distension. Palpations: Abdomen is soft. Tenderness: There is abdominal tenderness. There is no guarding or rebound. Musculoskeletal: General: Swelling present. Right lower leg: Edema present. Left lower leg: Edema present. Skin: General: Skin is warm and dry. Coloration: Skin is jaundiced. Findings: Lesion (LLE erythema/ warmth consistent with cellulitis) present. Neurological: Mental Status: He is alert and oriented to person, place, and time. Comments: Asterixis present Psychiatric: Mood and Affect: Mood is anxious. Additional Data - Labs/ Radiology/ etc. Recent Labs 03/11/25 1834 03/13/25 1109 03/14/25 0556 NA 131* 132* 132* K 3.4* 3.4* 3.7 CL 96* 97* 99 BICARB BUN 4* 3* 3* CREATININE 0.65 0.66 0.24* GLUCOSE 176* 162* 105* Recent Labs 03/11/25 1834 03/13/25 1109 WBC 4.22* 3.73* HGB 10.5* 10.2* HCT 30.2* 30.1* PLT 78* 82* Lab Results Component Value Date ALT 38 03/14/2025 AST 79 (H) 03/14/2025 ALKPHOS 156 (H) 03/14/2025 BILITOT 15.1 (H) 03/14/2025 ALBUMIN 2.2 (L) 03/14/2025 Recent Labs 03/11/25 1834 03/13/25 1109 03/14/25 0556 INR 2.5* 2.7* 3.1* No results found for: HGBA1C Patient Home Medications No current outpatient medications on file. [1] Social History Socioeconomic History Marital status: Single Tobacco Use Smoking status: Never Smokeless tobacco: Current Substance and Sexual Activity Alcohol use: Yes Alcohol/week: 0.0 standard drinks of alcohol Drug use: No Social Drivers of Health Food Insecurity: No Food Insecurity (03/13/2025) Hunger Vital Sign Worried About Running Out of Food in the Last Year: Never true Ran Out of Food in the Last Year: Never true Transportation Needs: No Transportation Needs (03/13/2025) PRAPARE - Transportation Lack of Transportation (Medical): No Lack of Transportation (Non-Medical): No Housing Stability: High Risk (03/13/2025) Housing Stability Vital Sign Unable to Pay for Housing in the Last Year: Yes Number of Times Moved in the Last Year: 0 Homeless in the Last Year: No Cosigned by John Becerril MD at 03/14/2025 10:47 AM EDT [employer] Work Phone: 03-14-2025 History and physical note INTERVAL HISTORY AND PHYSICAL Patient Name: Aryan Valle Admit Date: [id number] MR #: [id number] : 1970 The H&P has been reviewed and the patient has been examined. I concur with the findings of the H&P. There are no significant changes. It is appropriate to proceed with the planned procedure. Angella Yu MD 03/14/2025 10:55 AM Source Note - Shandra Keenan DO - 03/14/2025 8:19 AM EDT Resident Consult Note Patient Name: Aryan Valle : 1970 Admit Date: 4201228 Assessment and Plan Patient is a 55 y.o. 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 Hepatology is consulted for decompensated cirrhosis. Decompensated Cirrhosis - Likely 2/2 alcohol, drinks 3 beers daily. At his most, was drinking 30- pack of beers/ day, hasn't been doing this for ~a decade now, slowly decreasing. No prior autoimmune workup. He states he follows with hepatology, Dr. Parr in [place] but is interested in establishing with [facility]. - Alcohol level elevated at 39 on admit. 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 No history of seizures from alcohol withdrawal. - Baseline weight around 210 pounds. - EV screen: He reports EGD multiple years ago that was normal however unable to see these records. Due for repeat EGD, likely plan to do during this admission. - HE: On home lactulose 20g TID. Continue inpatient. Consider starting rifaximin. - Ascites: s/p paracentesis 2022 in [place] however unable to see these records. He reports they drained a few liters off, states there was no infection. VIR consulted for paracentesis. On home lasix 20 mg BID, aldactone 25 mg BID. His diuretic regimen will need adjusted prior to discharge, ideally to once daily medications as he sometimes misses PM dose. Give albumin now, await paracentesis and likely start IV lasix 40 mg BID with aldactone later today/ tomorrow. - HCC: No suspicious liver lesions noted on admit imaging, repeat in 6 months. Ordered AFP. - Add PETH, hepatitis profile. Recommend alcohol cessation. Once able to eat, recommend 2g Na/ 2L fl restriction. Recommend hepatitis A/ B vaccination. Will likely want to follow up with [facility] hepatology on discharge. Daily MELD labs. Daily weights, strict I's and O's. Add boosts TID and at bedtime. MELD 3.0: 32 at 03/14/2025 5:56 AM MELD-Na: 31 at 03/14/2025 5:56 AM Calculated from: Serum Creatinine: 0.24 mg/dL (Using min of 1 mg/dL) at 03/14/2025 5:56 AM Serum Sodium: 132 mmol/L at 03/14/2025 5:56 AM Total Bilirubin: 15.1 mg/dL at 03/14/2025 5:56 AM Serum Albumin: 2.2 g/dL at 03/14/2025 5:56 AM INR(ratio): 3.1 at 03/14/2025 5:56 AM Age at listing (hypothetical): 55 years Sex: Male at 03/14/2025 5:56 AM Shandra Keenan DO Internal Medicine PGY3 Presenting Symptom: decompensated cirrhosis, ascites History of Present Illness Aryan Valle is a 55 y.o. male who presented to hospital with abdominal distention and leg cramping. He states he has noticed abdominal swelling and leg swelling for the past few months now. He initially presented to [place] and was transferred to [facility], he then tells me he was transferred to [facility]. He says he was never admitted to the hospital, per documentation he left AMA. He then represented to the ED on 03/11 with abdominal distention and was found to have ascites but refused admission. He states he has followed with hepatology previously and was*, last saw Dr. Parr last year. He states he has not been following up with Dr. Parr regularly. He drinks about 3 beers per day, last beer night prior to admission 2 nights ago., He has been drinking for multiple decades, says at one point he was drinking 30 beers per day but has since been slowly cutting down. He denies tobacco or illicit substance use. He does not take Tylenol at home. He states he takes all of his medications but sometimes misses his night dose of diuretic however not often. He states his urine output was dropping off but since being here has picked up a little bit. He takes lactulose at home twice daily, he states he has a few bowel movements per day but they are runny and low volume. He states his normal weight is 210 pounds and has noticed he has been retaining fluid in his abdomen, scrotum and legs. He states his legs feel tight and painful. He states his last EGD was multiple years ago, he reports it was normal, unable to see these records. Also reportedly had paracentesis in 2022 and a few liters were taken off. He states this fluid was negative for infection. He is extremely nervous about paracentesis and states he had a lot of pain with this procedure previously. He has had a good appetite recently, denies unintentional weight loss. Past Medical/ Surgical/ Social/ Family History Past Medical History: Diagnosis Date Alcoholism (HCC) Cirrhosis (HCC) Glaucoma Hyperlipidemia Hypertension Seizure disorder (HCC) Seizures (HCC) Past Surgical History: Procedure Laterality Date GLAUCOMA SURGERY Left 2012 JOINT REPLACEMENT MOLE REMOVAL 2014 PARTIAL HIP ARTHROPLASTY Left 2007 Seizures N/A TONSILLECTOMY 1981 History reviewed. No pertinent family history. Social History [1] Patient Allergies I have reviewed the patient's allergies. Patient has no known allergies. Patient Review of Systems Review of Systems Constitutional: Positive for unexpected weight change. Negative for appetite change. Cardiovascular: Positive for leg swelling. Gastrointestinal: Positive for abdominal distention, abdominal pain and diarrhea. Negative for constipation, nausea and vomiting. Endocrine: Positive for polyuria. Genitourinary: Negative for difficulty urinating. Neurological: Positive for weakness. Psychiatric/Behavioral: The patient is nervous/anxious. Physical Exam Vital Signs: BP 125/73 Pulse 87 Temp 98.2 F (36.8 C) (Oral) Resp 16 Ht 5' 11 Wt 105.1 kg (231 lb 11.3 oz) SpO2 94% BMI 32.32 kg/m Physical Exam Vitals reviewed. Constitutional: General: He is not in acute distress. Appearance: He is not ill-appearing, toxic-appearing or diaphoretic. Eyes: General: Scleral icterus present. Cardiovascular: Rate and Rhythm: Normal rate and regular rhythm. Pulses: Normal pulses. Pulmonary: Effort: Pulmonary effort is normal. No respiratory distress. Abdominal: General: There is distension. Palpations: Abdomen is soft. Tenderness: There is abdominal tenderness. There is no guarding or rebound. Musculoskeletal: General: Swelling present. Right lower leg: Edema present. Left lower leg: Edema present. Skin: General: Skin is warm and dry. Coloration: Skin is jaundiced. Findings: Lesion (LLE erythema/ warmth consistent with cellulitis) present. Neurological: Mental Status: He is alert and oriented to person, place, and time. Comments: Asterixis present Psychiatric: Mood and Affect: Mood is anxious. Additional Data - Labs/ Radiology/ etc. Recent Labs 03/11/25 1834 03/13/25 1109 03/14/25 0556 NA 131* 132* 132* K 3.4* 3.4* 3.7 CL 96* 97* 99 BICARB BUN 4* 3* 3* CREATININE 0.65 0.66 0.24* GLUCOSE 176* 162* 105* Recent Labs 03/11/25 1834 03/13/25 1109 WBC 4.22* 3.73* HGB 10.5* 10.2* HCT 30.2* 30.1* PLT 78* 82* Lab Results Component Value Date ALT 38 03/14/2025 AST 79 (H) 03/14/2025 ALKPHOS 156 (H) 03/14/2025 BILITOT 15.1 (H) 03/14/2025 ALBUMIN 2.2 (L) 03/14/2025 Recent Labs 03/11/25 1834 03/13/25 1109 03/14/25 0556 INR 2.5* 2.7* 3.1* No results found for: HGBA1C Patient Home Medications No current outpatient medications on file. [1] Social History Socioeconomic History Marital status: Single Tobacco Use Smoking status: Never Smokeless tobacco: Current Substance and Sexual Activity Alcohol use: Yes Alcohol/week: 0.0 standard drinks of alcohol Drug use: No Social Drivers of Health Food Insecurity: No Food Insecurity (03/13/2025) Hunger Vital Sign Worried About Running Out of Food in the Last Year: Never true Ran Out of Food in the Last Year: Never true Transportation Needs: No Transportation Needs (03/13/2025) PRAPARE - Transportation Lack of Transportation (Medical): No Lack of Transportation (Non-Medical): No Housing Stability: High Risk (03/13/2025) Housing Stability Vital Sign Unable to Pay for Housing in the Last Year: Yes Number of Times Moved in the Last Year: 0 Homeless in the Last Year: No Cosigned by John Becerril MD at 03/14/2025 10:47 AM EDT [facility] History and Physical Note 03/13/25 Aryan Valle 1970 [id number] Assessment/Plan: Aryan Valle is a 55 y.o. male with a history of seizures, HTN, cirrhosis, alcohol use disorder, admission at [facility] 02/24/25 for abdominal distention but left AMA, ED visit 03/11/25 for decompensated cirrhosis and large volume ascites who declined admission to [facility] or transfer to tertiary hospital for hepatology evaluation who presented to [facility] 03/13/2025 with ongoing abdominal pain. ED workup significant for T. bili 18.3, T. bili 9, alk phos 200, AST 112, platelets 82. Decompensated Cirrhosis with Ascites: hx of ascites requiring paracentesis in 2022. Lost to follow-up. Jaundiced with scleral icterus on exam. Dry weight ~210 lb, admit weight [address] A/P showed cirrhosis, large volume ascites, hepatomegaly suggestive of portal hypertension. MELD-Na 29. Admit T. bili 18.3, T. bili 9, alk phos 200, AST 112, platelets 82. Held p.o. aldactone/Lasix for upcoming paracentesis, will likely need IV diuresis. Trend labs, Hepatology and IR consulted. Coagulopathy: Admit INR 2.7. In the setting of cirrhosis. No active bleeding. Thrombocytopenia: Unknown baseline. Admit platelets 82. Suspected due to above. Monitor. Hyponatremia: Admit sodium 132 in the setting of anasarca and cirrhosis. Alcohol Use Disorder: denied history of withdrawal. Drinks 3 beers daily. Last drink 03/12/2025. CIWA, vitamins. Low threshold for hepatic dose phenobarb taper. LLE Cellulitis: started ancef on admit. Urinary retention: Difficulty initiating and maintaining stream per patient. Ordered PVR but may not be accurate given large volume of ascites. Monitor Left inguinal hernia: Follows with surgery outpatient. CT A/ showed ascites within left inguinal hernia without bowel involvement. Follow-up outpatient. Code status: full code DVT Prophylaxis: lovenox Medication Reconciliation: Reviewed using bone density technician Current living situation: home Expected Disposition: home Estimated discharge date: 2-3 days Medically Ready for Discharge: no decomp cirrhosis Admitted with these risk variables:Chronic Liver Disease, Ascites, Coagulation Defect, Thrombocytopenia, Fluid Overload, and Electrolyte Disturbance: Hyponatremia. Please see assessment and plan for further details. Chief Complaint: Abdominal swelling History of Present Illness: Aryan Valle is a 55 y.o. male with a history of seizures, HTN, cirrhosis, alcohol use disorder, admission at [facility] 02/24/25 for abdominal distention but left AMA, ED visit 03/11/25 for decompensated cirrhosis and large volume ascites who declined admission to [facility] or transfer to tertiary hospital for hepatology evaluation who presented to [facility] 03/13/2025 with ongoing abdominal pain. ED workup significant for T. bili 18.3, T. bili 9, alk phos 200, AST 112, platelets 82. Reports that he comes to the ER for his ascites. He has had increased weight gain, abdominal distention, lower extremity edema over the last 3 months. His baseline weight runs around 210 but it is now 237. Family at bedside states that he has been jaundiced for about 4 months. Patient reports history of needing a paracentesis almost a year and a half ago, but has not struggled with edema or abdominal distention until the last 3 months. He continues to drink 3 beers daily. Reports compliance with lactulose, Lasix, Aldactone. Reports 2-3 small loose bowel movements daily. Complains of difficulty initiating and maintaining stream of urine. Denies dysuria, fevers, abdominal pain outside of feeling tight. Patient and family denied increased lethargy, confusion, mood swings at home. Of note Carolynn Oliveira Gave him 1 dose of IV antibiotics for suspected left leg cellulitis. 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 Will discuss with my attending if further IV antibiotics are warranted. I reviewed outpatient ED notes, [place] ED physician notes. I reviewed labs including CBC, BMP, hepatic function panel. I personally reviewed chest x-ray images that did not show evidence of pneumonia or effusion. ROS: 10 systems were reviewed and negative, except as noted above. Past Medical, Surgical, Social, Family History: Past Medical History: Diagnosis Date Alcoholism (HCC) Glaucoma Hyperlipidemia Hypertension Seizure disorder (HCC) Seizures (HCC) Past Surgical History: Procedure Laterality Date GLAUCOMA SURGERY Left 2012 JOINT REPLACEMENT MOLE REMOVAL 2014 PARTIAL HIP ARTHROPLASTY Left 2007 Seizures N/A TONSILLECTOMY 1980 Social History [1] History reviewed. No pertinent family history. Home Medications: Outpatient Medications as of 03/13/2025 Medication Sig albuterol 90 mcg/actuation inhaler Inhale 2 puffs every 6 (six) hours as needed for wheezing (90mcg). benzonatate (TESSALON) 200 MG capsule Take 200 mg by mouth 3 (three) times a day as needed for cough. bimatoprost (LUMIGAN) 0.01 % ophthalmic drops Administer 1 drop to both eyes nightly . brimonidine (ALPHAGAN) 0.2 % ophthalmic solution Administer 1 drop to both eyes 2 (two) times a day brinzolamide (AZOPT) 1 % ophthalmic suspension 1 drop 3 (three) times a day carvedilol (COREG) 25 MG tablet TAKE 1 TABLET BY MOUTH TWICE A DAY cephALEXin (KEFLEX) 500 MG capsule Take 1 (one) capsule (500 mg total) by mouth 4 (four) times a day for 10 days . doxylamine (UNISON) 25 mg tablet Take 25 mg by mouth nightly as needed for sleep levETIRAcetam (KEPPRA) 750 MG tablet Take 1 (one) tablet (750 mg total) by mouth 2 (two) times a day. meclizine (ANTIVERT) 25 MG chewable tablet Chew 25 mg 2 (two) times a day pantoprazole (PROTONIX) 40 MG tablet TAKE 1 TABLET BY MOUTH TWICE A DAY ramipril (ALTACE) 10 MG capsule TAKE 1 CAPSULE BY MOUTH DAILY timolol (BETIMOL) 0.5 % ophthalmic solution 1 drop 2 (two) times a day Physical Exam: BP 123/76 (BP Location: Right arm, Patient Position: Lying) Pulse 80 Temp 98.8 F (37.1 C) Resp 13 Ht 5' 11 Wt 107.5 kg (237 lb) SpO2 96% BMI 33.05 kg/m General: NAD Eyes: EOMI, scleral icterus ENT: neck supple Cardiovascular: Regular rate, no murmur Respiratory: Clear to auscultation, symmetric air entry Gastrointestinal: Soft, taut, distended, BS+ Genitourinary: no CVA tenderness Musculoskeletal: no major joint deformity Skin: warm, dry, jaundice, BLE edema. LLE erythema to anterior choe Neuro: Alert, oriented x3, no focal motor deficits. No asterixis. Psych: Mood appropriate Labs, Imaging, and Studies reviewed: Results from last 7 days Lab Units 03/13/25 1109 03/11/25 1834 WBC K/mcL 3.73* 4.22* HGB g/dL 10.2* 10.5* HCT % 30.1* 30.2* PLT K/mcL 82* 78* Results from last 7 days Lab Units 03/13/25 1109 03/11/25 1834 SODIUM mmol/L 132* 131* POTASSIUM mmol/L 3.4* 3.4* CHLORIDE mmol/L 97* 96* BICARB mmol/L 24 25 BUN mg/dL 3* 4* CREATININE mg/dL 0.66 0.65 EGFR mL/min/1.73 m2 111 112 GLUCOSE mg/dL 162* 176* CALCIUM mg/dL 8.4 8.6 Results from last 7 days Lab Units 03/13/25 1109 03/11/25 1834 ALT U/L 47 47 AST U/L 112* 108* ALK PHOS U/L 200* 208* BILIRUBIN TOTAL mg/dL 18.3* 19.4* Results from last 7 days Lab Units 03/11/25 1834 INR 2.5* [1] Social History Socioeconomic History Marital status: Single Tobacco Use Smoking status: Never Smokeless tobacco: Current Substance and Sexual Activity Alcohol use: Yes Alcohol/week: 0.0 standard drinks of alcohol Drug use: No Cosigned by Irving Dixon MD at 03/13/2025 6:18 PM EDT Associated attestation - Irving Dixon MD - 03/13/2025 6:18 PM EDT I have personally performed a [id number] diagnostic evaluation of this patient on 03/13/2025. After discussing the case with Daxa Rubio CNP, I performed the substantive part of the medical decision making for this encounter and approved the JORGE's plan of care with the following additions: Patient presented with abdominal discomfort and distention. Workup significant for ascites and elevated transaminases. Plan to consult hepatology and IR for diagnostic paracentesis Patient is jaundiced at time of eval. He also has significant abdominal distension. He reports he drinks 3 beers daily, most recent drink 24 hours prior to admission. We discussed need for CIWA protocol and he is agreeable. Labs reviewed. K 3.4. replacement ordered. Sodium corrected 133. No leukocytosis. Hgb 10.2. platelets 82, likely due to liver disease. T bili 18.3. AST 112, ALT 47. ETOH level 39. LE duplex negative. LLE erythema noted with signs of psoriasis, will treat as cellulitis. Can dc abx if not improving. CXR personally reviewed, diaphragm appears even, trachea midline, no pleural effusions. Code status confirmed, full code. Will hold on diuretics for now until after paracentesis as he may need albumin from fluid shifts Physical Exam (Focused elements based on presentation): BP 127/73 Pulse 84 Temp 98.8 F (37.1 C) Resp 13 Ht 5' 11 Wt 107.5 kg (237 lb) SpO2 98% BMI 33.05 kg/m General: NAD Eyes: EOMI, scleral icterus ENT: neck supple Cardiovascular: Regular rate, no murmur Respiratory: Clear to auscultation, symmetric air entry Gastrointestinal: taut, distended, scites present Genitourinary: no CVA tenderness Musculoskeletal: no major joint deformity Skin: warm, dry, jaundice, BLE edema. LLE erythema to anterior choe Neuro: Alert, oriented x3, no focal motor deficits. No asterixis. Psych: Mood appropriate documented in this encounter [facility] 03-14-2025 Evaluation + Plan note Associated Problem(s): Decompensated cirrhosis (HCC) 55 y.o. 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 Hepatology is consulted for decompensated cirrhosis. MELD 3.0: 31 at 03/15/2025 4:05 AM MELD-Na: 31 at 03/15/2025 4:05 AM Calculated from: Serum Creatinine: 0.22 mg/dL (Using min of 1 mg/dL) at 03/15/2025 4:05 AM Serum Sodium: 133 mmol/L at 03/15/2025 4:05 AM Total Bilirubin: 13.4 mg/dL at 03/15/2025 4:05 AM Serum Albumin: 3.1 g/dL at 03/15/2025 4:05 AM INR(ratio): 3.5 at 03/15/2025 4:05 AM Age at listing (hypothetical): 55 years Sex: Male at 03/15/2025 4:05 AM PLAN: - Decompensated cirrhosis: Etiology thought due to ALD. Actively drinking. Follow MELD labs daily while in patient. Patient would not be a candidate for OLT evaluation given ongoing alcohol use despite diagnosis and following with local GI - Ascites: Paracentesis 03/14/25 with SAAG > 1.1 and TP < 2.5 c/w sinusoidal portal hypertension from cirrhosis. No e/o SBP. Recommend 2 gram low sodium diet and Nutrition consult for education. Start diuretics: lasix 40 mg daily and spironolactone 100 mg daily. Have PCP check BMP in 1 week - Portal Hypertension: EGD 03/14/25 without EV. Mild PHG. Non-bleeding gastric ulcer with a clean ulcer base (Prasanth Class III). Biopsied. OK to discharge on PPI BID and will schedule EGD in 3 months to assess healing (message sent to scheduling). - HE: Grade 2 overt HE on admission with asterixis despite home lactulose. Continue home lactulose titrated to 3-5 soft stools daily. Continue Rifaximin 550 mg BID. Schedule follow up in Hepatology pharmacy clinic for medication reconcilliation - Alcoholic Liver Disease (ALD): Actively drinking despite diagnosis and following with GI previously. PETH ordered. Extensive conversation regarding my concern that the patient's liver disease is due to alcohol. I recommended lifelong abstinence form alcohol as well as AOD counseling. Recommend Thiamine, Folate and close monitoring for withdrawal. For patients at high risk for severe withdrawal, recommend high dose Thiamine replacement 500 mg IV TID x 5 days followed by 100 mg daily. Recommend Phenobarb instead of CIWA for withdrawal. Recommend Naltrexone or Acamprosate to aid with cessation - Cellulitis: LLE cellulitis. On Keflex OK to discharge from Hepatology perspective. Follow up scheduled in [facility] Liver clinic in [facility] ([address] [place] [address], [place] [address]). Clinic phone: [phone]. Please include this information on patients Discharge Summary. Patient will be called with specific date and time [facility] 03-14-2025 Miscellaneous Notes Associated Problem(s): Decompensated cirrhosis (HCC) 55 y.o. 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 Hepatology is consulted for decompensated cirrhosis. MELD 3.0: 31 at 03/15/2025 4:05 AM MELD-Na: 31 at 03/15/2025 4:05 AM Calculated from: Serum Creatinine: 0.22 mg/dL (Using min of 1 mg/dL) at 03/15/2025 4:05 AM Serum Sodium: 133 mmol/L at 03/15/2025 4:05 AM Total Bilirubin: 13.4 mg/dL at 03/15/2025 4:05 AM Serum Albumin: 3.1 g/dL at 03/15/2025 4:05 AM INR(ratio): 3.5 at 03/15/2025 4:05 AM Age at listing (hypothetical): 55 years Sex: Male at 03/15/2025 4:05 AM PLAN: - Decompensated cirrhosis: Etiology thought due to ALD. Actively drinking. Follow MELD labs daily while in patient. Patient would not be a candidate for OLT evaluation given ongoing alcohol use despite diagnosis and following with local GI - Ascites: Paracentesis 03/14/25 with SAAG > 1.1 and TP < 2.5 c/w sinusoidal portal hypertension from cirrhosis. No e/o SBP. Recommend 2 gram low sodium diet and Nutrition consult for education. Start diuretics: lasix 40 mg daily and spironolactone 100 mg daily. Have PCP check BMP in 1 week - Portal Hypertension: EGD 03/14/25 without EV. Mild PHG. Non-bleeding gastric ulcer with a clean ulcer base (Prasanth Class III). Biopsied. OK to discharge on PPI BID and will schedule EGD in 3 months to assess healing (message sent to scheduling). - HE: Grade 2 overt HE on admission with asterixis despite home lactulose. Continue home lactulose titrated to 3-5 soft stools daily. Continue Rifaximin 550 mg BID. Schedule follow up in Hepatology pharmacy clinic for medication reconcilliation - Alcoholic Liver Disease (ALD): Actively drinking despite diagnosis and following with GI previously. PETH ordered. Extensive conversation regarding my concern that the patient's liver disease is due to alcohol. I recommended lifelong abstinence form alcohol as well as AOD counseling. Recommend Thiamine, Folate and close monitoring for withdrawal. For patients at high risk for severe withdrawal, recommend high dose Thiamine replacement 500 mg IV TID x 5 days followed by 100 mg daily. Recommend Phenobarb instead of CIWA for withdrawal. Recommend Naltrexone or Acamprosate to aid with cessation - Cellulitis: LLE cellulitis. On Keflex OK to discharge from Hepatology perspective. Follow up scheduled in [facility] Liver clinic in [facility] ([address] [place] [address]). Clinic phone: [phone]. Please include this information on patients Discharge Summary. Patient will be called with specific date and time Vascular & Interventional Radiology Provided By [facility] (Diagnostic Radiology, Interventional and Neurointerventional Radiology and Vascular Medicine) Interventional Radiology Department @ [facility]: [phone] 15/06 VIR physician contact: [phone]) Weekday VIR nurse practitioner contact @ [facility]: [phone] [facility]: [phone] [email or web address] REGISTERED DENTAL ASSISTANT DIRECTORY PRE PROCEDURE NOTE Procedure: paracentesis Indication: Aryan Valle is a 55 YO male with a PMH of seizures, HTN, cirrhosis, alcohol use disorder who presented to [facility] with abdominal pain. He was found to have ascites on CT imaging, so we have been consulted to perform a diagnostic paracentesis. Allergies: Patient has no known allergies. Exam: PACU Vitals 03/14/25 0916 BP: 113/72 Pulse: 85 Resp: 16 Temp: SpO2: 96% Mallampati Airway Classification: N/A CV: The pulse is regular. Telemetry tracings were reviewed. Respiratory: No evidence for respiratory distress. No accessory muscle use. No audible wheezes. Laboratory: Lab Results Component Value Date WBC 3.73 (L) 03/13/2025 HGB 10.2 (L) 03/13/2025 HCT 30.1 (L) 03/13/2025 MCV 118.0 (H) 03/13/2025 PLT 82 (L) 03/13/2025 Lab Results Component Value Date GLUCOSE 105 (H) 03/14/2025 CALCIUM 8.4 03/14/2025 NA 132 (L) 03/14/2025 K 3.7 03/14/2025 CL 99 03/14/2025 BUN 3 (L) 03/14/2025 CREATININE 0.24 (L) 03/14/2025 . Protime (PT) Date Value Ref Range Status 03/14/2025 32.5 (H) 11.8 - 14.3 seconds Final INR Date Value Ref Range Status 03/14/2025 3.1 (H) 0.8 - 1.1 Final Preprocedural ASA: C III (Severe systemic disease) Assessment: The comprehensive, admission History & Physical was reviewed and the patient examined. To proceed with planned procedure. Other: N/A Problem: Actual or potential alteration in health Goal: Knowledge of Interdisciplinary Plan of Care Outcome: Not Met Goal: Knowledge of Enviroment Outcome: Not Met Problem: Pain Goal: Reduced pain sensation Outcome: Not Met Goal: Control of acute pain to acceptable level Outcome: Not Met Goal: Able to cope with pain Outcome: Not Met Goal: Able to achieve maximum level of physical functioning Outcome: Not Met Goal: Able to achieve maximum level of psychosocial functioning Outcome: Not Met VIR I/P PRE-PROCEDURE SUMMARY 1970 ALLERGIES has no known allergies. ROOM R23/23 CODE STATUS Full Code ISOLATION There are no current isolations documented for this patient. PRECAUTIONS None Pre-Meds Needed? Ordered: PROCEDURE INFORMATION PROCEDURE: paracentesis Diagnosis: ascites Can patient consent? Yes Family/POA name and contact: AC/AP MEDS LABS Lovenox 40mg SQ Last Dose: Held: Yes ANTIBIOTIC ADMINISTRATION Hx Orders not given: cephALEXin (KEFLEX) capsule 500 mg ceFAZolin (ANCEF) IVPB 2 g (premix) DIET ORDER Regular diet Results from last 7 days Lab Units 03/13/25 1109 PROTIME seconds 28.5* INR 2.7* PLT K/mcL 82* CREATININE mg/dL 0.66 EGFR mL/min/1.73 m2 111 RECENT VITALS (PCU 2) Temp POC Glucose HR BP RR SpO2 NEURO LDA RESP + O2 PIV Respiratory Pattern: Regular, Easy, Unlabored SpO2: 96 % O2 Device: None (Room air) CARDIAC INFUSIONS PULSES Cardiac Rhythm: Sinus R DP R PT L DP L PT HISTORY SPECIAL CONSIDERATIONS Past Medical History: Diagnosis Date Alcoholism (HCC) Cirrhosis (HCC) Glaucoma Hyperlipidemia Hypertension Seizure disorder (HCC) Seizures (HCC) Sleep Apnea No I performed a substantive part of the MDM during the patient's E/M visit. I personally evaluated and examined the patient. I personally made or approved the documented management plan and acknowledge its risk of complications. 55-year-old gentleman with past medical history of seizures, hypertension, cirrhosis, alcohol use disorder, and more presents to the emergency department due to concern for decompensated cirrhosis with ascites. Patient was recently seen at the [facility] on February 24 due to abdominal distention but left AGAINST MEDICAL ADVICE at then came back to a different ER on March 11 or once again he declined admission or transfer for hepatology evaluation. Symptoms have since continued to worsen and now presents here due to ongoing abdominal pain. Here patient is overtly jaundiced with liver function tests with total bilirubin of 18.3, direct bilirubin of 9, alk phos of 200, AST of 112, ALT of 47, thrombocytopenia with platelets of 82 without any overt bleeding, leukopenia with white blood cell count of 3.73, anemia with hemoglobin 10.2, INR of 2.7. Patient endorses that he is willing now to be admitted, seen by hepatology, and treated which she does desperately need at this point. Patient did endorse bilateral lower extremity swelling as well which therefore we obtained an ultrasound which was negative for DVTs. Chest x-ray is unremarkable. CT of the abdomen pelvis has been recently performed on the and therefore I do not feel needs to be repeated today. Patient therefore will be admitted to the hospital for further evaluation by hepatology for further workup and medical management. BP: 107/69 Heart Rate: 90 Temp: 98.8 F (37.1 C) Resp: 18 SpO2: 99 % Medications Administered (if any) Medications - No data to display Laboratory Results Labs Reviewed BASIC METABOLIC PANEL - Abnormal; Notable for the following components: Result Value Sodium 132 (*) Potassium 3.4 (*) Chloride 97 (*) Glucose 162 (*) BUN 3 (*) BUN/Creatinine Ratio 4.5 (*) All other components within normal limits Narrative: [facility] Laboratory Services has implemented the eGFR calculation approach that does not have a coefficient for race that conforms to the NKF-ASN Task Force Recommendations. HEPATIC FUNCTION PANEL - Abnormal; Notable for the following components: Total Protein 8.3 (*) Albumin 2.9 (*) Total Bilirubin 18.3 (*) Bilirubin, Direct 9.0 (*) Alkaline Phosphatase 200 (*) AST 112 (*) All other components within normal limits CBC WITH AUTO DIFFERENTIAL - Abnormal; Notable for the following components: WBC 3.73 (*) RBC 2.55 (*) Hemoglobin 10.2 (*) Hematocrit 30.1 (*) MCV 118.0 (*) MCH 40.0 (*) Platelets 82 (*) Lymphocytes Abs 0.70 (*) All other components within normal limits NT PRO BNP - Normal Narrative: Pride Study Cut-offs Rule In: < /= 50 Years >450 pg/mL 51 Years - 75 Years >900 pg/mL 76 Years - 99 Years >1800 pg/mL Rule Out: All patients <300 pg/mL CBC AND DIFFERENTIAL Narrative: The following orders were created for panel order CBC w/ Diff. Procedure Abnormality Status --------- ------ CBC Auto Differential[[id number]] Abnormal Final result Please view results for these tests on the individual orders. URINALYSIS Imaging Results Ultrasound Duplex Venous Legs BILATERAL (Results Pending) XR Chest 1 View (Results Pending) Procedures . . documented in this encounter [facility] 03-14-2025 Note Vascular & Intervent ional Radiology Provided By [facility] (Diagnostic Radiology, Interventional and Neurointerventional Radiology and Vascular Medicine) Interventional Radiology Department @ [facility]: [phone] 15/06 VIR physician contact: [phone]) Weekday VIR nurse practitioner contact @ [facility]: [phone] [facility]: [phone] [email or web address] [facility] REGISTERED DENTAL ASSISTANT DIRECTORY General Procedure: Procedure: U/S guided diagnostic paracentesis Indication: ascites Practitioner: Jasiel Rincon PA-C Supervising Physician: Nj Figueroa M.D. Sedation: None The procedure, its risks and benefits were discussed in detail with the patient and/or family. Informed consent was obtained. Description: 5000 ml clear, yellow fluid was removed from the RLQ without evidence of immediate complications. A bulky dressing was applied. The patient tolerated the procedure well. As requested, the fluid was forwarded for laboratory analysis. Specimen (s) removed: 5000 ml Fluid Estimated Blood Loss: Trace Complications: None Full report to follow AUTHENTICATED BY JASIEL RINCON, ON 03/14/2025 10:09:59 [facility] 03-14-2025 Progress note Formatting of t his note is different from the original. Vascular & Interventional Radiology Provided By [facility] (Diagnostic Radiology, Interventional and Neurointerventional Radiology and Vascular Medicine) Interventional Radiology Department @ [facility]: [phone] 15/06 VIR physician contact: [phone]) Weekday VIR nurse practitioner contact @ [facility]: [phone] [facility]: [phone] [email or web address] [facility] REGISTERED DENTAL ASSISTANT DIRECTORY PRE PROCEDURE NOTE Procedure: paracentesis Indication: Aryan Valle is a 55 YO male with a PMH of seizures, HTN, cirrhosis, alcohol use disorder who presented to [facility] with abdominal pain. He was found to have ascites on CT imaging, so we have been consulted to perform a diagnostic paracentesis. Allergies: Patient has no known allergies. Exam: PACU Vitals 03/14/25 0916 BP: 113/72 Pulse: 85 Resp: 16 Temp: SpO2: 96% Mallampati Airway Classification: N/A CV: The pulse is regular. Telemetry tracings were reviewed. Respiratory: No evidence for respiratory distress. No accessory muscle use. No audible wheezes. Laboratory: Lab Results Component Value Date WBC 3.73 (L) 03/13/2025 HGB 10.2 (L) 03/13/2025 HCT 30.1 (L) 03/13/2025 MCV 118.0 (H) 03/13/2025 PLT 82 (L) 03/13/2025 Lab Results Component Value Date GLUCOSE 105 (H) 03/14/2025 CALCIUM 8.4 03/14/2025 NA 132 (L) 03/14/2025 K 3.7 03/14/2025 CL 99 03/14/2025 BUN 3 (L) 03/14/2025 CREATININE 0.24 (L) 03/14/2025 . Protime (PT) Date Value Ref Range Status 03/14/2025 32.5 (H) 11.8 - 14.3 seconds Final INR Date Value Ref Range Status 03/14/2025 3.1 (H) 0.8 - 1.1 Final Preprocedural ASA: C III (Severe systemic disease) Assessment: The comprehensive, admission History & Physical was reviewed and the patient examined. To proceed with planned procedure. Other: N/A [facility] Work Phone: 03-14-2025 Consult note Associated Order (s): IP CONSULT TO HEPATOLOGY Resident Consult Note Patient Name: Aryan Valle : 1970 Admit Date: [id number] Assessment and Plan Patient is a 55 y.o. 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 Hepatology is consulted for decompensated cirrhosis. Decompensated Cirrhosis - Likely 2/2 alcohol, drinks 3 beers daily. At his most, was drinking 30- pack of beers/ day, hasn't been doing this for ~a decade now, slowly decreasing. No prior autoimmune workup. He states he follows with hepatology, Dr. Parr in [place] but is interested in establishing with [facility]. - Alcohol level elevated at 39 on admit. 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 No history of seizures from alcohol withdrawal. - Baseline weight around 210 pounds. - EV screen: He reports EGD multiple years ago that was normal however unable to see these records. Due for repeat EGD, likely plan to do during this admission. - HE: On home lactulose 20g TID. Continue inpatient. Consider starting rifaximin. - Ascites: s/p paracentesis 2022 in [place] however unable to see these records. He reports they drained a few liters off, states there was no infection. VIR consulted for paracentesis. On home lasix 20 mg BID, aldactone 25 mg BID. His diuretic regimen will need adjusted prior to discharge, ideally to once daily medications as he sometimes misses PM dose. Give albumin now, await paracentesis and likely start IV lasix 40 mg BID with aldactone later today/ tomorrow. - HCC: No suspicious liver lesions noted on admit imaging, repeat in 6 months. Ordered AFP. - Add PETH, hepatitis profile. Recommend alcohol cessation. Once able to eat, recommend 2g Na/ 2L fl restriction. Recommend hepatitis A/ B vaccination. Will likely want to follow up with [facility] hepatology on discharge. Daily MELD labs. Daily weights, strict I's and O's. Add boosts TID and at bedtime. MELD 3.0: 32 at 03/14/2025 5:56 AM MELD-Na: 31 at 03/14/2025 5:56 AM Calculated from: Serum Creatinine: 0.24 mg/dL (Using min of 1 mg/dL) at 03/14/2025 5:56 AM Serum Sodium: 132 mmol/L at 03/14/2025 5:56 AM Total Bilirubin: 15.1 mg/dL at 03/14/2025 5:56 AM Serum Albumin: 2.2 g/dL at 03/14/2025 5:56 AM INR(ratio): 3.1 at 03/14/2025 5:56 AM Age at listing (hypothetical): 55 years Sex: Male at 03/14/2025 5:56 AM Shandra Keenan, Internal Medicine PGY3 Presenting Symptom: decompensated cirrhosis, ascites History of Present Illness Aryan Valle is a 55 y.o. male who presented to hospital with abdominal distention and leg cramping. He states he has noticed abdominal swelling and leg swelling for the past few months now. He initially presented to [place] and was transferred to [facility], he then tells me he was transferred to [facility]. He says he was never admitted to the hospital, per documentation he left AMA. He then represented to the ED on 03/11 with abdominal distention and was found to have ascites but refused admission. He states he has followed with hepatology previously and was*, last saw Dr. Parr last year. He states he has not been following up with Dr. Parr regularly. He drinks about 3 beers per day, last beer night prior to admission 2 nights ago., He has been drinking for multiple decades, says at one point he was drinking 30 beers per day but has since been slowly cutting down. He denies tobacco or illicit substance use. He does not take Tylenol at home. He states he takes all of his medications but sometimes misses his night dose of diuretic however not often. He states his urine output was dropping off but since being here has picked up a little bit. He takes lactulose at home twice daily, he states he has a few bowel movements per day but they are runny and low volume. He states his normal weight is 210 pounds and has noticed he has been retaining fluid in his abdomen, scrotum and legs. He states his legs feel tight and painful. He states his last EGD was multiple years ago, he reports it was normal, unable to see these records. Also reportedly had paracentesis in 2022 and a few liters were taken off. He states this fluid was negative for infection. He is extremely nervous about paracentesis and states he had a lot of pain with this procedure previously. He has had a good appetite recently, denies unintentional weight loss. Past Medical/ Surgical/ Social/ Family History Past Medical History: Diagnosis Date Alcoholism (HCC) Cirrhosis (HCC) Glaucoma Hyperlipidemia Hypertension Seizure disorder (HCC) Seizures (HCC) Past Surgical History: Procedure Laterality Date GLAUCOMA SURGERY Left 2013 JOINT REPLACEMENT MOLE REMOVAL 2015 PARTIAL HIP ARTHROPLASTY Left 2007 Seizures N/A TONSILLECTOMY 1981 History reviewed. No pertinent family history. Social History [1] Patient Allergies I have reviewed the patient's allergies. Patient has no known allergies. Patient Review of Systems Review of Systems Constitutional: Positive for unexpected weight change. Negative for appetite change. Cardiovascular: Positive for leg swelling. Gastrointestinal: Positive for abdominal distention, abdominal pain and diarrhea. Negative for constipation, nausea and vomiting. Endocrine: Positive for polyuria. Genitourinary: Negative for difficulty urinating. Neurological: Positive for weakness. Psychiatric/Behavioral: The patient is nervous/anxious. Physical Exam Vital Signs: BP 125/73 Pulse 87 Temp 98.2 F (36.8 C) (Oral) Resp 16 Ht 5' 11 Wt 105.1 kg (231 lb 11.3 oz) SpO2 94% BMI 32.32 kg/m Physical Exam Vitals reviewed. Constitutional: General: He is not in acute distress. Appearance: He is not ill-appearing, toxic-appearing or diaphoretic. Eyes: General: Scleral icterus present. Cardiovascular: Rate and Rhythm: Normal rate and regular rhythm. Pulses: Normal pulses. Pulmonary: Effort: Pulmonary effort is normal. No respiratory distress. Abdominal: General: There is distension. Palpations: Abdomen is soft. Tenderness: There is abdominal tenderness. There is no guarding or rebound. Musculoskeletal: General: Swelling present. Right lower leg: Edema present. Left lower leg: Edema present. Skin: General: Skin is warm and dry. Coloration: Skin is jaundiced. Findings: Lesion (LLE erythema/ warmth consistent with cellulitis) present. Neurological: Mental Status: He is alert and oriented to person, place, and time. Comments: Asterixis present Psychiatric: Mood and Affect: Mood is anxious. Additional Data - Labs/ Radiology/ etc. Recent Labs 03/11/25 1834 03/13/25 1109 03/14/25 0556 NA 131* 132* 132* K 3.4* 3.4* 3.7 CL 96* 97* 99 BICARB BUN 4* 3* 3* CREATININE 0.65 0.66 0.24* GLUCOSE 176* 162* 105* Recent Labs 03/11/25183303/13/25 1109 WBC 4.22* 3.73* HGB 10.5* 10.2* HCT 30.2* 30.1* PLT 78* 82* Lab Results Component Value Date ALT 38 03/14/2025 AST 79 (H) 03/14/2025 ALKPHOS 156 (H) 03/14/2025 BILITOT 15.1 (H) 03/14/2025 ALBUMIN 2.2 (L) 03/14/2025 Recent Labs 03/11/25 1834 03/13/25 1109 03/14/25 0556 INR 2.5* 2.7* 3.1* No results found for: HGBA1C Patient Home Medications No current outpatient medications on file. [1] Social History Socioeconomic History Marital status: Single Tobacco Use Smoking status: Never Smokeless tobacco: Current Substance and Sexual Activity Alcohol use: Yes Alcohol/week: 0.0 standard drinks of alcohol Drug use: No Social Drivers of Health Food Insecurity: No Food Insecurity (03/13/2025) Hunger Vital Sign Worried About Running Out of Food in the Last Year: Never true Ran Out of Food in the Last Year: Never true Transportation Needs: No Transportation Needs (03/13/2025) PRAPARE - Transportation Lack of Transportation (Medical): No Lack of Transportation (Non-Medical): No Housing Stability: High Risk (03/13/2025) Housing Stability Vital Sign Unable to Pay for Housing in the Last Year: Yes Number of Times Moved in the Last Year: 0 Homeless in the Last Year: No Cosigned by John Becerril MD at 03/14/2025 10:47 AM EDT Associated attestation - John Becerril MD - 03/14/2025 10:47 AM EDT Gastroenterology/Hepatology Resident Physician Attestation I have independently seen and examined the patient with the Resident Physician I have reviewed the available labs. I have reviewed the available imaging studies. Review of Systems: All remaining systems were reviewed and are negative except for those mentioned in the HPI Physical examination: CONSTITUTIONAL: AAO x 1 with asterixis, NAD HEENT: (+) icterus ABDOMEN: Flat, negative hepatosplenomegaly, soft and non-tender. SKIN: (+) jaundice I agree with the assessment and plan as outlined below with the following additions/exceptions: 55 y.o. 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 Hepatology is consulted for decompensated cirrhosis. MELD 3.0: 32 at 03/14/2025 5:56 AM MELD-Na: 31 at 03/14/2025 5:56 AM Calculated from: Serum Creatinine: 0.24 mg/dL (Using min of 1 mg/dL) at 03/14/2025 5:56 AM Serum Sodium: 132 mmol/L at 03/14/2025 5:56 AM Total Bilirubin: 15.1 mg/dL at 03/14/2025 5:56 AM Serum Albumin: 2.2 g/dL at 03/14/2025 5:56 AM INR(ratio): 3.1 at 03/14/2025 5:56 AM Age at listing (hypothetical): 55 years Sex: Male at 03/14/2025 5:56 AM PLAN: - Decompensated cirrhosis: Etiology thought due to ALD. Actively drinking. Follow MELD labs daily while in patient. Patient would not be a candidate for OLT evaluation given ongoing alcohol use despite diagnosis and following with local GI - Ascites: Recommend diagnostic/therapeutic paracentesis with fluid studies for cell count/diff, albumin and protein. If no evidence of SBP, can stop Ceftriaxone and will start diuretics. Recommend 2 gram low sodium diet and Nutrition consult for education. Hold diuretics. 25% albumin, 25 grams every 6 hours x 4 doses. Order cardiac echo. [Home dose diuretics: lasix 20 mg BID and spironolactone 25 mg BID] - Portal Hypertension: Plan for EGD today to screen for EV. EGD years ago per patient (no records, no results in [place]), patient told it was normal. - HE: Grade 2 overt HE on admission with asterixis despite home lactulose. Recommend broad infectious eval. Continue lactulose titrated to 3-5 soft stools daily and improvement in mental status.Continue home lactulose titrated to 3-5 soft stools daily. Patient with recurrent overt HE despite lactulose monotherapy. Start Rifaximin 550 mg BID and send discharge Rx to B on day 1 of admission to expedite Prior Authorization and Meds-to-Bed program. Write Rx for 90 day script to reduce likelihood of 30 day readmission for recurrent HE - Alcoholic Liver Disease (ALD): Actively drinking despite diagnosis and following with GI previously. PETH ordered. Extensive conversation regarding my concern that the patient's liver disease is due to alcohol. I recommended lifelong abstinence form alcohol as well as AOD counseling. Recommend Thiamine, Folate and close monitoring for withdrawal. For patients at high risk for severe withdrawal, recommend high dose Thiamine replacement 500 mg IV TID x 5 days followed by 100 mg daily. Recommend Phenobarb instead of CIWA for withdrawal. Recommend Naltrexone or Acamprosate to aid with cessation - Cellulitis: LLE cellulitis. On Keflex John Becerril MD [employer] Work Phone: 03-14-2025 Plan of care note Problem: Actual or potential alteration in health Goal: Knowledge of Interdisciplinary Plan of Care Outcome: Not Met Goal: Knowledge of Enviroment Outcome: Not Met Problem: Pain Goal: Reduced pain sensation Outcome: Not Met Goal: Control of acute pain to acceptable level Outcome: Not Met Goal: Able to cope with pain Outcome: Not Met Goal: Able to achieve maximum level of physical functioning Outcome: Not Met Goal: Able to achieve maximum level of psychosocial functioning Outcome: Not Met [facility] 03-13-2025 Note PROCEDURE: DIAGNOSTIC AND THERAPEUTIC ULTRASOUND-GUIDED PARACENTESIS HISTORY: Patient is 55-year-old male with ascites here today for paracentesis. SILO OPERATOR(S): Jasiel Figueroa M.D. (Supervising) TECHNIQUE AND FINDINGS: Informed consent was obtained from the patient and witnessed. The patient was brought to the interventional radiology recovery area. A time-out and pause/confirm was performed. Limited ultrasound of the abdomen was performed identifying a suitable skin entry site. Hand hygiene was performed and all elements of maximal sterile barrier technique was used to prep and drape the patient in a sterile fashion, including a sterile ultrasound probe cover and sterile ultrasound gel. Following cutaneous anesthesia, a 5-[place]izen [place] one-step catheter was advanced into the fluid pocket in the right lower quadrant under USg with the needle placement in the fluid pocket saved into the PACs system. Approximately 5000 milliliters of clear, yellow fluid was then aspirated using vacuum bottles. The catheter was subsequently removed and manual pressure was applied until hemostasis was achieved. The patient tolerated the procedure well without immediate complication. All elements of maximal sterile barrier techniques were followed and when used sterile ultrasound preparation. FINDINGS: 1. Moderate ascites by ultrasound. An ultrasound image was recorded in PACS. 2. Successful ultrasound-guided paracentesis with aspiration of 5000 milliliters of fluid. Sample was submitted for further analysis per referring physicians. IMPRESSION: Successful ultrasound-guided paracentesis. Patient given 50 g of albumin postprocedure per protocol. I have reviewed the images and findings and agree with the above interpretation. Nj Figueroa MD Workstation ID: [id number] Dictated by: JASIEL RINCON on ThuMar 14, 2025 4:47:24 PM EDT Transcribed by: JASIEL RINCON on ThuMar 14, 2025 4:47:24 PM EDT Finalized by: NJ FIGUEROA on ThuMar 21, 2025 3:22:[address] [facility] 03-13-2025 Progress note Formatting of t his note is different from the original. VIR I/P PRE-PROCEDURE SUMMARY 1970 ALLERGIES has no known allergies. ROOM R23/23 CODE STATUS Full Code ISOLATION There are no current isolations documented for this patient. PRECAUTIONS None Pre-Meds Needed? Ordered: PROCEDURE INFORMATION PROCEDURE: paracentesis Diagnosis: ascites Can patient consent? Yes Family/POA name and contact: AC/AP MEDS LABS Lovenox 40mg SQ Last Dose: Held: Yes ANTIBIOTIC ADMINISTRATION Hx Orders not given: cephALEXin (KEFLEX) capsule 500 mg ceFAZolin (ANCEF) IVPB 2 g (premix) DIET ORDER Regular diet Results from last 7 days Lab Units 03/13/25 1109 PROTIME seconds 28.5* INR 2.7* PLT K/mcL 82* CREATININE mg/dL 0.66 EGFR mL/min/1.73 m2 111 RECENT VITALS (PCU 2) Temp POC Glucose HR BP RR SpO2 NEURO LDA RESP + O2 PIV Respiratory Pattern: Regular, Easy, Unlabored SpO2: 96 % O2 Device: None (Room air) CARDIAC INFUSIONS PULSES Cardiac Rhythm: Sinus R DP R PT L DP L PT HISTORY SPECIAL CONSIDERATIONS Past Medical History: Diagnosis Date Alcoholism (HCC) Cirrhosis (HCC) Glaucoma Hyperlipidemia Hypertension Seizure disorder (HCC) Seizures (HCC) Sleep Apnea No [facility] 03-13-2025 Consult note Associated Order (s): IP CONSULT TO INTERVENTIONAL RADIOLOGY Images from the original note were not included. Vascular & Interventional Radiology Provided By [facility] FOR PROVIDER USE ONLY: [facility] Interventional Radiology: [phone] [facility] Interventional Radiology: [phone] [facility] Interventional Radiology: [phone] 15/06 VIR physician contact: [phone]) FOR PATIENT AND PROVIDERS: [facility]: [phone] [email or web address] Patient Name: Aryan Valle : 1970 Code Status: Full Code VIR consult received for USg diagnostic paracentesis. Pertinent past medical/surgical history: Aryan Valle is a 55 YO male with a PMH of seizures, HTN, cirrhosis, alcohol use disorder who presented to [facility] with abdominal pain. He was found to have ascites on CT imaging, so we have been consulted to perform a diagnostic paracentesis. Based upon chart review, patient is appropriate to have this procedure and will be scheduled as able. The patient's chart to include history and physical, pertinent allergies, code status, laboratory and available pertinent imaging were reviewed. The patient will be scheduled for the requested USg diagnostic paracentesis. L: 3 Preprocedural needs: No prep needed; patient does not need to be NPO for requested procedure. Procedure date and time for in-patients TBD by the [facility] control desk @ [phone] pending emergent cases and other scheduling demands. Please call the [facility]IR out-patient office @ [phone] (Option 0) if requested procedure is desired after discharge. Pertinent Information: Antiplatelet/Anticoagulation: Lovenox Allergies: Patient has no known allergies. Laboratory: Lab Results Component Value Date BUN 3 (L) 03/13/2025 CREATININE 0.66 03/13/2025 EGFR 111 03/13/2025 Lab Results Component Value Date PROTIME 28.5 (H) 03/13/2025 INR 2.7 (H) 03/13/2025 Lab Results Component Value Date WBC 3.73 (L) 03/13/2025 RBC 2.55 (L) 03/13/2025 HGB 10.2 (L) 03/13/2025 HCT 30.1 (L) 03/13/2025 PLT 82 (L) 03/13/2025 Pertinent image(s) (if applicable): VIR Jane-procedure lab value guideline: Table 1. LOW Bleeding Risk Laboratory Guidelines Low Bleeding Risk Procedures Target Laboratory Values3 Bone Marrow Biopsy [Platelet Count - N/A] Catheter exchanges (gastrostomy, biliary, nephrostomy, abscess, including gastrostomy/gastrojejunostomy conversions) CVC tunneled >/= 8 Fr* Diagnostic venography and select venous interventions: pelvis and extremities Dialysis shunt interventions IVC filter placement and removal Non-tunneled chest tube placement for pleural effusion Non-tunneled venous access and removal (including PICC placement) and Tunneled venous access Paracentesis Peripheral nerve blocks, joint, and musculoskeletal injections Sacroiliac joint injection and sacral lateral branch blocks Superficial abscess drainage or biopsy (palpable lesion, lymph node, soft tissue, breast, thyroid) Thoracentesis Trans jugular liver biopsy Trigger point injections including piriformis Tunneled drainage catheter placement* PT/INR < 3.0 Platelets > 20,000/mcL (Consider transfusing platelets if <20,000/mcL) If patient with Chronic Liver Disease (based on expert opinion): PT/INR < 3.0 (Consider Vitamin K infusion if INR >3.0) Platelets > 20,000/mcL (Transfuse platelets if <20,000/mcL in patients with a large spleen) Fibrinogen > 100mg/dL (Consider cryoprecipitate if <100mg/dL) *If on Direct Oral Anticoagulant (DOAC), follow HIGH Bleeding Risk recommendations in Table 2 and Table 3 Table 2. HIGH Bleeding Risk Laboratory Guidelines: HIGH Bleeding Risk Procedures Target Laboratory Values3 Ablations: solid organs, bone, soft tissue, lung Arterial diagnostic interventions: aortic, pelvic, mesenteric, peripheral Biliary interventions (including cholecystostomy tube placement) Catheter directed thrombolysis/thrombectomy- DVT, PE, portal vein (Highly case dependent) Deep abscess drainage (e.g., lung parenchyma, abdominal, pelvic, retroperitoneal) Deep non organ biopsies (e.g., spine, soft tissue in intra-abdominal, retroperitoneal, pelvic compartments) Gastrostomy/gastrojejunostomy placement IVC filter removal complex Lumbar puncture Lymphangiography Portal vein interventions Solid organ biopsies Spine procedures with risk of spinal or epidural hematoma (e.g., kyphoplasty, vertebroplasty, epidural injections, facet blocks) Trans jugular intrahepatic portosystemic shunt Port placement/removal (Buried) Urinary tract interventions (including nephrostomy tube placement, ureteral dilation, stone removal) Venous interventions: intrathoracic and MECHANICAL TECHNICAL SERVICE SPECIALIST intervention PT/INR < 1.8 (if arterial access, femoral: INR < 1.8, radial: INR < 2.2) Platelets > 50,000/mcL (Consider transfusing platelets if <50,000/mcL) If patient with Chronic Liver Disease (based on expert opinion): PT/INR < 2.5 (Give Vitamin K 10mg infusion if INR >2.5) Platelets > 30,000/mcL (Transfuse platelets if <30,000/mcL in patients with a large spleen) Fibrinogen > 100mg/dL (Consider cryoprecipitate if <100mg/dL) VIR Jane-procedure anticoagulant/antiplatelet guideline (pending P&T review 11/2020): Medication LOW Bleeding Risk^ HIGH Bleeding Risk^ Reinitiation Abciximab (ReoPro ) Hold 24 hrs before procedure Hold 24 hrs before procedure Patient undergoing PCI or within immediate periprocedural period from cardiac intervention; use multidisciplinary, shared decision-making Apixaban (Eliquis ) Do not hold CrCl > 50mL/min: Hold 4 doses CrCl < 30-50mL/min: Hold 6 doses 24 hrs Aspirin OR Aspirin/Dipyridamole (Aggrenox ) Holding strategy for aspirin requires patient-specific approach; for high risk or complex cardiovascular cases, multidisciplinary, shared decision-making is suggested Do not hold Hold for 3-5 days (assumes multidisciplinary evaluation and agreement to interrupt therapy) Resume the day after procedure Argatroban (Acova ) Do not hold Hold 2-4 hrs: check aPTT 4-6 hrs Betrixaban (Bevyxxa ) Do not hold Hold for 3 doses 24 hrs Bivalirudin (Angiomax ) Do not hold Hold 2-4 hrs: check aPTT 4-6 hrs Cangrelor (Kengreal ) Defer procedure until therapy completed; if emergent, multidisciplinary discussion with Cardiology is recommended Defer procedure until therapy completed; if emergent, multidisciplinary discussion with Cardiology is recommended Patient undergoing PCI or within immediate periprocedural period from cardiac intervention; Use multidisciplinary, shared-decision making Cilostazol (Pletal ) Do not hold Do not hold N/A Clopidogrel (Plavix ) Do not hold Hold for 5 days before procedure 75mg Dose: 6 hrs after procedure Loading Dose (300-600mg): 24 hrs after procedure Dabigatran (Pradaxa ) Do not hold CrCl > 50mL/min: Hold 4 doses CrCl < 30-50mL/min: Hold 6-8 doses Consider checking thrombin time with impaired renal function 24 hrs Edoxaban (Savaysa ) Do not hold Hold for 2 doses 24 hrs Eptifibatide (Integrilin ) Hold 4-8 hrs before procedure Hold 4-8 hrs before procedure Patient undergoing PCI or within immediate periprocedural period from cardiac intervention; Use multidisciplinary, shared decision-making Fondaparinux (Arixtra ) Do not hold CrCl > 50mL/min: Hold 2-3 Days CrCl < 50mL/min: Hold 3-5 days 24 hrs LMWH: Enoxaparin (Lovenox ), Dalteparin (Fragmin ) Do not hold Check anti-Xa level if renal function impaired Prophylactic Enoxaparin: Hold 1 dose Therapeutic Enoxaparin: Hold 2 doses or 24 hrs Dalteparin: Hold 1 dose 12 hrs NSAIDS (short-, intermediate-, and long-acting) Do not hold No recommendations N/A Prasugrel (Effient ) Do not hold Hold for 7 days before procedure Resume the day after the procedure Rivaroxaban (Xarelto ) Do not hold CrCl > 50mL/min: Hold 2 doses CrCl 30-50mL/min: Hold 2 doses CrCl < 15-30mL/min: Hold 3 doses 24 hrs Ticagrelor (Brilinta ) Do not hold Hold for 5 days before procedure Resume the day after the procedure Tirofiban (Aggrastat ) Hold 4-8 hrs before procedure Hold 4-8 hrs before procedure Patient undergoing PCI or within immediate periprocedural period from cardiac intervention; Use multidisciplinary, shared decision-making Unfractionated Heparin Do not hold IV Heparin: Hold 4-6 hrs before procedure; check aPTT or anti-Xa level SubQ Heparin: Hold 6 hrs before procedure 6-8 hrs Warfarin (Coumadin ) Target INR < 3 Hold 5 days until INR < 1.8 Low Bleeding Risk: N/A or same day for bridged patients High Bleeding Risk: Resume day after procedure; Consider bridging after procedure for high thrombosis risk cases; Use multidisciplinary, shared-decision making to balance bleeding vs. thrombotic risks. Amber Jackson CNP [facility] 03/13/2025 Cosigned by Du Lee MD at 03/14/2025 2:52 PM EDT [facility] Work Phone: 03-13-2025 History and physical note [facility] History and Physical Note 03/13/25 Aryan Valle 1970 [id number] Assessment/Plan: Aryan Valle is a 55 y.o. male with a history of seizures, HTN, cirrhosis, alcohol use disorder, admission at [facility] 02/24/25 for abdominal distention but left AMA, ED visit 03/11/25 for decompensated cirrhosis and large volume ascites who declined admission to [facility] or transfer to [facility] for hepatology evaluation who presented to [facility] 03/13/2025 with ongoing abdominal pain. ED workup significant for T. bili 18.3, T. bili 9, alk phos 200, AST 112, platelets 82. Decompensated Cirrhosis with Ascites: hx of ascites requiring paracentesis in 2022. Lost to follow-up. Jaundiced with scleral icterus on exam. Dry weight ~210 lb, admit weight [address] A/ showed cirrhosis, large volume ascites, hepatomegaly suggestive of portal hypertension. MELD-Na 29. Admit T. bili 18.3, T. bili 9, alk phos 200, AST 112, platelets 82. Held p.o. aldactone/Lasix for upcoming paracentesis, will likely need IV diuresis. Trend labs, Hepatology and IR consulted. Coagulopathy: Admit INR 2.7. In the setting of cirrhosis. No active bleeding. Thrombocytopenia: Unknown baseline. Admit platelets 82. Suspected due to above. Monitor. Hyponatremia: Admit sodium 132 in the setting of anasarca and cirrhosis. Alcohol Use Disorder: denied history of withdrawal. Drinks 3 beers daily. Last drink 03/12/2025. CIWA, vitamins. Low threshold for hepatic dose phenobarb taper. LLE Cellulitis: started ancef on admit. Urinary retention: Difficulty initiating and maintaining stream per patient. Ordered PVR but may not be accurate given large volume of ascites. Monitor Left inguinal hernia: Follows with surgery outpatient. CT A/P showed ascites within left inguinal hernia without bowel involvement. Follow-up outpatient. Code status: full code DVT Prophylaxis: lovenox Medication Reconciliation: Reviewed using bone density technician Current living situation: home Expected Disposition: home Estimated discharge date: 2-3 days Medically Ready for Discharge: no decomp cirrhosis Admitted with these risk variables:Chronic Liver Disease, Ascites, Coagulation Defect, Thrombocytopenia, Fluid Overload, and Electrolyte Disturbance: Hyponatremia. Please see assessment and plan for further details. Chief Complaint: Abdominal swelling History of Present Illness: Aryan Valle is a 55 y.o. male with a history of seizures, HTN, cirrhosis, alcohol use disorder, admission at [facility] 02/24/25 for abdominal distention but left AMA, ED visit 03/11/25 for decompensated cirrhosis and large volume ascites who declined admission to [facility] or transfer to tertiary hospital for hepatology evaluation who presented to [facility] 03/13/2025 with ongoing abdominal pain. ED workup significant for T. bili 18.3, T. bili 9, alk phos 200, AST 112, platelets 82. Reports that he comes to the ER for his ascites. He has had increased weight gain, abdominal distention, lower extremity edema over the last 3 months. His baseline weight runs around 210 but it is now 237. Family at bedside states that he has been jaundiced for about 4 months. Patient reports history of needing a paracentesis almost a year and a half ago, but has not struggled with edema or abdominal distention until the last 3 months. He continues to drink 3 beers daily. Reports compliance with lactulose, Lasix, Aldactone. Reports 2-3 small loose bowel movements daily. Complains of difficulty initiating and maintaining stream of urine. Denies dysuria, fevers, abdominal pain outside of feeling tight. Patient and family denied increased lethargy, confusion, mood swings at home. Of note Carolynn Oliveira Gave him 1 dose of IV antibiotics for suspected left leg cellulitis. 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 Will discuss with my attending if further IV antibiotics are warranted. I reviewed outpatient ED notes, [place] [facility] physician notes. I reviewed labs including CBC, BMP, hepatic function panel. I personally reviewed chest x-ray images that did not show evidence of pneumonia or effusion. ROS: 10 systems were reviewed and negative, except as noted above. Past Medical, Surgical, Social, Family History: Past Medical History: Diagnosis Date Alcoholism (HCC) Glaucoma Hyperlipidemia Hypertension Seizure disorder (HCC) Seizures (HCC) Past Surgical History: Procedure Laterality Date GLAUCOMA SURGERY Left 2012 JOINT REPLACEMENT MOLE REMOVAL 2014 PARTIAL HIP ARTHROPLASTY Left 2007 Seizures N/A TONSILLECTOMY 1981 Social History [1] History reviewed. No pertinent family history. Home Medications: Outpatient Medications as of 03/13/2025 Medication Sig albuterol 90 mcg/actuation inhaler Inhale 2 puffs every 6 (six) hours as needed for wheezing (90mcg). benzonatate (TESSALON) 200 MG capsule Take 200 mg by mouth 3 (three) times a day as needed for cough. bimatoprost (LUMIGAN) 0.01 % ophthalmic drops Administer 1 drop to both eyes nightly . brimonidine (ALPHAGAN) 0.2 % ophthalmic solution Administer 1 drop to both eyes 2 (two) times a day brinzolamide (AZOPT) 1 % ophthalmic suspension 1 drop 3 (three) times a day carvedilol (COREG) 25 MG tablet TAKE 1 TABLET BY MOUTH TWICE A DAY cephALEXin (KEFLEX) 500 MG capsule Take 1 (one) capsule (500 mg total) by mouth 4 (four) times a day for 10 days . doxylamine (UNISON) 25 mg tablet Take 25 mg by mouth nightly as needed for sleep levETIRAcetam (KEPPRA) 750 MG tablet Take 1 (one) tablet (750 mg total) by mouth 2 (two) times a day. meclizine (ANTIVERT) 25 MG chewable tablet Chew 25 mg 2 (two) times a day pantoprazole (PROTONIX) 40 MG tablet TAKE 1 TABLET BY MOUTH TWICE A DAY ramipril (ALTACE) 10 MG capsule TAKE 1 CAPSULE BY MOUTH DAILY timolol (BETIMOL) 0.5 % ophthalmic solution 1 drop 2 (two) times a day Physical Exam: BP 123/76 (BP Location: Right arm, Patient Position: Lying) Pulse 80 Temp 98.8 F (37.1 C) Resp 13 Ht 5' 11 Wt 107.5 kg (237 lb) SpO2 96% BMI 33.05 kg/m General: NAD Eyes: EOMI, scleral icterus ENT: neck supple Cardiovascular: Regular rate, no murmur Respiratory: Clear to auscultation, symmetric air entry Gastrointestinal: Soft, taut, distended, BS+ Genitourinary: no CVA tenderness Musculoskeletal: no major joint deformity Skin: warm, dry, jaundice, BLE edema. LLE erythema to anterior choe Neuro: Alert, oriented x3, no focal motor deficits. No asterixis. Psych: Mood appropriate Labs, Imaging, and Studies reviewed: Results from last 7 days Lab Units 03/13/25 1109 03/11/25 1834 WBC K/mcL 3.73* 4.22* HGB g/dL 10.2* 10.5* HCT % 30.1* 30.2* PLT K/mcL 82* 78* Results from last 7 days Lab Units 03/13/25 1109 03/11/25 1834 SODIUM mmol/L 132* 131* POTASSIUM mmol/L 3.4* 3.4* CHLORIDE mmol/L 97* 96* BICARB mmol/L 24 25 BUN mg/dL 3* 4* CREATININE mg/dL 0.66 0.65 EGFR mL/min/1.73 m2 111 112 GLUCOSE mg/dL 162* 176* CALCIUM mg/dL 8.4 8.6 Results from last 7 days Lab Units 03/13/25 1109 03/11/25 1834 ALT U/L 47 47 AST U/L 112* 108* ALK PHOS U/L 200* 208* BILIRUBIN TOTAL mg/dL 18.3* 19.4* Results from last 7 days Lab Units 03/11/25 1834 INR 2.5* [1] Social History Socioeconomic History Marital status: Single Tobacco Use Smoking status: Never Smokeless tobacco: Current Substance and Sexual Activity Alcohol use: Yes Alcohol/week: 0.0 standard drinks of alcohol Drug use: No Cosigned by Irving Dixon MD at 03/13/2025 6:18 PM EDT Associated attestation - Irving Dixon MD - 03/13/2025 6:18 PM EDT I have personally performed a [id number] diagnostic evaluation of this patient on 03/13/2025. After discussing the case with Daxa Rubio CNP, I performed the substantive part of the medical decision making for this encounter and approved the JORGE's plan of care with the following additions: Patient presented with abdominal discomfort and distention. Workup significant for ascites and elevated transaminases. Plan to consult hepatology and IR for diagnostic paracentesis Patient is jaundiced at time of eval. He also has significant abdominal distension. He reports he drinks 3 beers daily, most recent drink 24 hours prior to admission. We discussed need for CIWA protocol and he is agreeable. Labs reviewed. K 3.4. replacement ordered. Sodium corrected 133. No leukocytosis. Hgb 10.2. platelets 82, likely due to liver disease. T bili 18.3. AST 112, ALT 47. ETOH level 39. LE duplex negative. LLE erythema noted with signs of psoriasis, will treat as cellulitis. Can dc abx if not improving. CXR personally reviewed, diaphragm appears even, trachea midline, no pleural effusions. Code status confirmed, full code. Will hold on diuretics for now until after paracentesis as he may need albumin from fluid shifts Physical Exam (Focused elements based on presentation): BP 127/73 Pulse 84 Temp 98.8 F (37.1 C) Resp 13 Ht 5' 11 Wt 107.5 kg (237 lb) SpO2 98% BMI 33.05 kg/m General: NAD Eyes: EOMI, scleral icterus ENT: neck supple Cardiovascular: Regular rate, no murmur Respiratory: Clear to auscultation, symmetric air entry Gastrointestinal: taut, distended, scites present Genitourinary: no CVA tenderness Musculoskeletal: no major joint deformity Skin: warm, dry, jaundice, BLE edema. LLE erythema to anterior choe Neuro: Alert, oriented x3, no focal motor deficits. No asterixis. Psych: Mood appropriate [facility] 03-13-2025 Emergency department Note Rounding completed on this patient as follows: Safety - Safety addressed. Cart in low and locked position, side rails up for safety, call light within reach. Plan - Plan discussed with patient. Personal Needs - Personal needs of patient addressed. Duration - Duration discussed with patient. Pt provided warm blanket. [facility] 03-13-2025 Emergency department Note Rounding completed on this patient as follows: Safety - Safety addressed. Cart in low and locked position, side rails up for safety, call light within reach. Plan - Plan discussed with patient. Personal Needs - Personal needs of patient addressed. Duration - Duration discussed with patient. Pt provided warm blanket. [facility] to write admission orders [id number] -- Checkout complete PCP - Tana Farmer MD Chief Complaint Patient presents with Abdominal Pain HPI/ Medical Decision Making Patient is a 55-year-old male is presenting today for abdominal pain. Patient has history of seizure disorder, hypertension, hyperlipidemia, alcoholism. Patient states that has been having ongoing abdominal pain for the past 3 months. States is a constant pressure sensation. Was previously seen at [facility] and recommend admission for transaminitis with ascites but declined at that time. Patient was also noted to be seen at [facility] in which he eloped before he was able to get an inpatient bed. Does state that he has had some chills, decreased urinary output and constipation is still passing flatulence. States that he used to drink a lot heavier but now drinks about 3 beers per day. Has been drinking daily for over 20 years. Denies any nausea, vomiting, fevers, recent sickness, cough, congestion, sore throat, rhinorrhea, melena, bloody stools, chest pain, shortness of breath, history of withdrawal seizures, visual or auditory hallucinations. When patient was at [facility] he also noted concerns for cellulitis of his left lower extremity, physician at that time felt that this was more chronic and not cellulitis but patient was prophylactically covered with Keflex, patient received 1 dose and was unable to oyster picker prescription. Carolynn was unable to do ultrasound at that time as they do not have 24-hour ultrasound. CT at outlying facility consistent with ascites. Medical Decision Making Amount and/or Complexity of Data Reviewed External Data Reviewed: labs, radiology and notes. Labs: ordered. Decision-making details documented in ED Course. ECG/medicine tests: ordered and independent interpretation performed. Decision-making details documented in ED Course. Risk OTC drugs. Prescription drug management. Decision regarding hospitalization. The patient's medical chart, vital signs and nursing notes were reviewed. Diagnostic considerations during this visit include but are not limited to: DVT, occlusion, transaminitis, SBP, CHF Work-up in the emergency department included labs and imaging. CBC shows leukopenia and anemia with a hemoglobin of 10.2. BMP within appropriate range. LFT shows transaminitis and elevated bilirubin of 9. BMP shows hyponatremia, hypokalemia, hypochloremia, decreased BUN, no BENJAMIN. Ultrasound of the bilateral lower extremities and chest x-ray shows no acute findings. EKG shows no acute signs of ischemia. All results of diagnostic testing performed in the emergency department were reviewed with the patient. At this time, we feel patient is appropriate for admission. Please see admitting attendings attestation for continued workup, treatment, plan. Patient was agreeable to admission and plan. This patient was seen by myself in conjugation with emergency medicine attending physician, Dr. Lindsay. I discussed this patient including his/her history, physical exam, laboratory findings, and imaging with the attending physician who is in agreement with this plan. Note: To expedite correspondence this note was generated by [employer] voice recognition software. This note was partially created using voice recognition software and is inherently subject to errors including those of syntax and sound-alike substitutions which may escape proofreading. In such instances, original meaning may be extrapolated by contextual derivation. Impressions: 1. Transaminitis 2. Ascites MDM Data Previous Records Reviewed . . Labs Reviewed BASIC METABOLIC PANEL - Abnormal; Notable for the following components: Result Value Sodium 132 (*) Potassium 3.4 (*) Chloride 97 (*) Glucose 162 (*) BUN 3 (*) BUN/Creatinine Ratio 4.5 (*) All other components within normal limits Narrative: [facility] has implemented the eGFR calculation approach that does not have a coefficient for race that conforms to the NKF-ASN Task Force Recommendations. HEPATIC FUNCTION PANEL - Abnormal; Notable for the following components: Total Protein 8.3 (*) Albumin 2.9 (*) Total Bilirubin 18.3 (*) Bilirubin, Direct 9.0 (*) Alkaline Phosphatase 200 (*) AST 112 (*) All other components within normal limits CBC WITH AUTO DIFFERENTIAL - Abnormal; Notable for the following components: WBC 3.73 (*) RBC 2.55 (*) Hemoglobin 10.2 (*) Hematocrit 30.1 (*) MCV 118.0 (*) MCH 40.0 (*) Platelets 82 (*) Lymphocytes Abs 0.70 (*) All other components within normal limits NT PRO BNP - Normal Narrative: Pride Study Cut-offs Rule In: < /= 50 Years >450 pg/mL 51 Years - 75 Years >900 pg/mL 76 Years - 99 Years >1800 pg/mL Rule Out: All patients <300 pg/mL CBC AND DIFFERENTIAL Narrative: The following orders were created for panel order CBC w/ Diff. Procedure Abnormality Status --------- ------ CBC Auto Differential[[id number]] Abnormal Final result Please view results for these tests on the individual orders. URINALYSIS Radiographic Imaging (if any) During ED Visit Ultrasound Duplex Venous Legs BILATERAL Final Result XR Chest 1 View Final Result FINDINGS/ 1. There are no focal infiltrates, pleural effusions, pulmonary edema, or pneumothorax. 2. Trachea remains midline. The aorta is normal contour. The heart size seems normal. 3. There are old, healed rib fractures on the left. Rest of the visualized osseous structures appear intact. KKV/ads Workstation ID: [id number] Medications Ordered/Given During ED Visit Medications - No data to display . I saw and evaluated the patient. I have reviewed the chief complaint, triage note, past medical/surgical, family, and social history. END OF MEDICAL DECISION MAKING ___ Physical Exam Initial Vital Signs BP 107/69 Pulse 90 Temp 98.8 F (37.1 C) Resp 18 Ht 5' 11 Wt 107.5 kg (237 lb) SpO2 99% BMI 33.05 kg/m Vital Signs During ED Visit (as charted by nursing) Patient Vitals for the past 24 hrs: BP Temp Pulse Resp SpO2 Height Weight 03/13/25 0942 107/69 98.8 F (37.1 C) 90 18 99 % 5' 11 107.5 kg (237 lb) Physical Exam Vitals and nursing note reviewed. Constitutional: Appearance: Normal appearance. He is normal weight. Comments: Jaundice HENT: Head: Normocephalic. Eyes: General: Scleral icterus present. Cardiovascular: Rate and Rhythm: Normal rate and regular rhythm. Pulses: Normal pulses. Heart sounds: Normal heart sounds. Pulmonary: Effort: Pulmonary effort is normal. Breath sounds: Normal breath sounds. Abdominal: General: Bowel sounds are normal. There is distension. Palpations: Abdomen is soft. Tenderness: There is no abdominal tenderness. Skin: General: Skin is warm. Capillary Refill: Capillary refill takes less than 2 seconds. Comments: 2+ pitting edema bilaterally in lower extremities Neurological: General: No focal deficit present. Mental Status: He is alert and oriented to person, place, and time. Psychiatric: Mood and Affect: Mood normal. Behavior: Behavior normal. Thought Content: Thought content normal. Judgment: Judgment normal. Procedures Review of Systems As described above or not pertinent to present emergent encounter. All other systems reviewed and negative. Past Medical History Past Medical History: Diagnosis Date Alcoholism (HCC) Glaucoma Hyperlipidemia Hypertension Seizure disorder (HCC) Seizures (HCC) Past Surgical History Past Surgical History: Procedure Laterality Date GLAUCOMA SURGERY Left 2012 JOINT REPLACEMENT MOLE REMOVAL 2014 PARTIAL HIP ARTHROPLASTY Left 2007 Seizures N/A TONSILLECTOMY 1980 Family History History reviewed. No pertinent family history. Social History Social History [1] Allergies Allergies[2] Medications Active Home Medications Medication Sig Take Last Dose On Take Morning of Surgery Comment(s) albuterol 90 mcg/actuation inhaler Inhale 2 puffs every 6 (six) hours as needed for wheezing (90mcg). benzonatate (TESSALON) 200 MG capsule Take 200 mg by mouth 3 (three) times a day as needed for cough. bimatoprost (LUMIGAN) 0.01 % ophthalmic drops Administer 1 drop to both eyes nightly . brimonidine (ALPHAGAN) 0.2 % ophthalmic solution Administer 1 drop to both eyes 2 (two) times a day brinzolamide (AZOPT) 1 % ophthalmic suspension 1 drop 3 (three) times a day carvedilol (COREG) 25 MG tablet TAKE 1 TABLET BY MOUTH TWICE A DAY cephALEXin (KEFLEX) 500 MG capsule Take 1 (one) capsule (500 mg total) by mouth 4 (four) times a day for 10 days . doxylamine (UNISON) 25 mg tablet Take 25 mg by mouth nightly as needed for sleep levETIRAcetam (KEPPRA) 750 MG tablet Take 1 (one) tablet (750 mg total) by mouth 2 (two) times a day. meclizine (ANTIVERT) 25 MG chewable tablet Chew 25 mg 2 (two) times a day pantoprazole (PROTONIX) 40 MG tablet TAKE 1 TABLET BY MOUTH TWICE A DAY ramipril (ALTACE) 10 MG capsule TAKE 1 CAPSULE BY MOUTH DAILY timolol (BETIMOL) 0.5 % ophthalmic solution 1 drop 2 (two) times a day Narx Check Score and Data was review on this visit Note: To expedite correspondence this note was generated by [employer] voice recognition software. This note was partially created using voice recognition software and is inherently subject to errors including those of syntax and sound-alike substitutions which may escape proofreading. In such instances, original meaning may be extrapolated by contextual derivation. [1] Social History Socioeconomic History Marital status: Single Tobacco Use Smoking status: Never Smokeless tobacco: Current Substance and Sexual Activity Alcohol use: Yes Alcohol/week: 0.0 standard drinks of alcohol Drug use: No [2] No Known Allergies Yumiko Nath PA-C 03/13/25 1303 Bed: 23 Expected date: Expected time: Means of arrival: Comments: S100 Pt states sx times 3 weeks. Amb to triage, in ED at [facility] on Thursday, was going to be transferred by he went home. Pt states ascites and double hernia. Denies pain states he cannot eat or drink. Denies n/v/d. Difficult to urinate. Symptoms x 3 weeks, worse today. documented in this encounter [facility] 03-13-2025 Emergency department Note [facility] to write admission orders [id number] -- Checkout complete [facility] 03-13-2025 Physician Emergency department Note PCP - Tana Farmer MD Chief Complaint Patient presents with Abdominal Pain HPI/ Medical Decision Making Patient is a 55-year-old male is presenting today for abdominal pain. Patient has history of seizure disorder, hypertension, hyperlipidemia, alcoholism. Patient states that has been having ongoing abdominal pain for the past 3 months. States is a constant pressure sensation. Was previously seen at [facility] and recommend admission for transaminitis with ascites but declined at that time. Patient was also noted to be seen at [facility] in which he eloped before he was able to get an inpatient bed. Does state that he has had some chills, decreased urinary output and constipation is still passing flatulence. States that he used to drink a lot heavier but now drinks about 3 beers per day. Has been drinking daily for over 20 years. Denies any nausea, vomiting, fevers, recent sickness, cough, congestion, sore throat, rhinorrhea, melena, bloody stools, chest pain, shortness of breath, history of withdrawal seizures, visual or auditory hallucinations. When patient was at [facility] he also noted concerns for cellulitis of his left lower extremity, physician at that time felt that this was more chronic and not cellulitis but patient was prophylactically covered with Keflex, patient received 1 dose and was unable to oyster picker prescription. [facility] was unable to do ultrasound at that time as they do not have 24-hour ultrasound. CT at outlying facility consistent with ascites. Medical Decision Making Amount and/or Complexity of Data Reviewed External Data Reviewed: labs, radiology and notes. Labs: ordered. Decision-making details documented in ED Course. ECG/medicine tests: ordered and independent interpretation performed. Decision-making details documented in ED Course. Risk OTC drugs. Prescription drug management. Decision regarding hospitalization. The patient's medical chart, vital signs and nursing notes were reviewed. Diagnostic considerations during this visit include but are not limited to: DVT, occlusion, transaminitis, SBP, CHF Work-up in the emergency department included labs and imaging. CBC shows leukopenia and anemia with a hemoglobin of 10.2. BMP within appropriate range. LFT shows transaminitis and elevated bilirubin of 9. BMP shows hyponatremia, hypokalemia, hypochloremia, decreased BUN, no BENJAMIN. Ultrasound of the bilateral lower extremities and chest x-ray shows no acute findings. EKG shows no acute signs of ischemia. All results of diagnostic testing performed in the emergency department were reviewed with the patient. At this time, we feel patient is appropriate for admission. Please see admitting attendings attestation for continued workup, treatment, plan. Patient was agreeable to admission and plan. This patient was seen by myself in conjugation with emergency medicine attending physician, Dr. Lindsay. I discussed this patient including his/her history, physical exam, laboratory findings, and imaging with the attending physician who is in agreement with this plan. Note: To expedite correspondence this note was generated by [employer] voice recognition software. This note was partially created using voice recognition software and is inherently subject to errors including those of syntax and sound-alike substitutions which may escape proofreading. In such instances, original meaning may be extrapolated by contextual derivation. Impressions: 1. Transaminitis 2. Ascites MDM Data Previous Records Reviewed . . Labs Reviewed BASIC METABOLIC PANEL - Abnormal; Notable for the following components: Result Value Sodium 132 (*) Potassium 3.4 (*) Chloride 97 (*) Glucose 162 (*) BUN 3 (*) BUN/Creatinine Ratio 4.5 (*) All other components within normal limits Narrative: [facility] has implemented the eGFR calculation approach that does not have a coefficient for race that conforms to the NKF-ASN Task Force Recommendations. HEPATIC FUNCTION PANEL - Abnormal; Notable for the following components: Total Protein 8.3 (*) Albumin 2.9 (*) Total Bilirubin 18.3 (*) Bilirubin, Direct 9.0 (*) Alkaline Phosphatase 200 (*) AST 112 (*) All other components within normal limits CBC WITH AUTO DIFFERENTIAL - Abnormal; Notable for the following components: WBC 3.73 (*) RBC 2.55 (*) Hemoglobin 10.2 (*) Hematocrit 30.1 (*) MCV 118.0 (*) MCH 40.0 (*) Platelets 82 (*) Lymphocytes Abs 0.70 (*) All other components within normal limits NT PRO BNP - Normal Narrative: Pride Study Cut-offs Rule In: < /= 50 Years >450 pg/mL 51 Years - 75 Years >900 pg/mL 76 Years - 99 Years >1800 pg/mL Rule Out: All patients <300 pg/mL CBC AND DIFFERENTIAL Narrative: The following orders were created for panel order CBC w/ Diff. Procedure Abnormality Status --------- ------ CBC Auto Differential[[id number]] Abnormal Final result Please view results for these tests on the individual orders. URINALYSIS Radiographic Imaging (if any) During ED Visit Ultrasound Duplex Venous Legs BILATERAL Final Result XR Chest 1 View Final Result FINDINGS/ 1. There are no focal infiltrates, pleural effusions, pulmonary edema, or pneumothorax. 2. Trachea remains midline. The aorta is normal contour. The heart size seems normal. 3. There are old, healed rib fractures on the left. Rest of the visualized osseous structures appear intact. KKV/ads Workstation ID: [id number] Medications Ordered/Given During ED Visit Medications - No data to display . I saw and evaluated the patient. I have reviewed the chief complaint, triage note, past medical/surgical, family, and social history. END OF MEDICAL DECISION MAKING ___ Physical Exam Initial Vital Signs BP 107/69 Pulse 90 Temp 98.8 F (37.1 C) Resp 18 Ht 5' 11 Wt 107.5 kg (237 lb) SpO2 99% BMI 33.05 kg/m Vital Signs During ED Visit (as charted by nursing) Patient Vitals for the past 24 hrs: BP Temp Pulse Resp SpO2 Height Weight 03/13/25 0942 107/69 98.8 F (37.1 C) 90 18 99 % 5' 11 107.5 kg (237 lb) Physical Exam Vitals and nursing note reviewed. Constitutional: Appearance: Normal appearance. He is normal weight. Comments: Jaundice HENT: Head: Normocephalic. Eyes: General: Scleral icterus present. Cardiovascular: Rate and Rhythm: Normal rate and regular rhythm. Pulses: Normal pulses. Heart sounds: Normal heart sounds. Pulmonary: Effort: Pulmonary effort is normal. Breath sounds: Normal breath sounds. Abdominal: General: Bowel sounds are normal. There is distension. Palpations: Abdomen is soft. Tenderness: There is no abdominal tenderness. Skin: General: Skin is warm. Capillary Refill: Capillary refill takes less than 2 seconds. Comments: 2+ pitting edema bilaterally in lower extremities Neurological: General: No focal deficit present. Mental Status: He is alert and oriented to person, place, and time. Psychiatric: Mood and Affect: Mood normal. Behavior: Behavior normal. Thought Content: Thought content normal. Judgment: Judgment normal. Procedures Review of Systems As described above or not pertinent to present emergent encounter. All other systems reviewed and negative. Past Medical History Past Medical History: Diagnosis Date Alcoholism (HCC) Glaucoma Hyperlipidemia Hypertension Seizure disorder (HCC) Seizures (HCC) Past Surgical History Past Surgical History: Procedure Laterality Date GLAUCOMA SURGERY Left 2013 JOINT REPLACEMENT MOLE REMOVAL 2014 PARTIAL HIP ARTHROPLASTY Left 2007 Seizures N/A TONSILLECTOMY 1980 Family History History reviewed. No pertinent family history. Social History Social History [1] Allergies Allergies[2] Medications Active Home Medications Medication Sig Take Last Dose On Take Morning of Surgery Comment(s) albuterol 90 mcg/actuation inhaler Inhale 2 puffs every 6 (six) hours as needed for wheezing (90mcg). benzonatate (TESSALON) 200 MG capsule Take 200 mg by mouth 3 (three) times a day as needed for cough. bimatoprost (LUMIGAN) 0.01 % ophthalmic drops Administer 1 drop to both eyes nightly . brimonidine (ALPHAGAN) 0.2 % ophthalmic solution Administer 1 drop to both eyes 2 (two) times a day brinzolamide (AZOPT) 1 % ophthalmic suspension 1 drop 3 (three) times a day carvedilol (COREG) 25 MG tablet TAKE 1 TABLET BY MOUTH TWICE A DAY cephALEXin (KEFLEX) 500 MG capsule Take 1 (one) capsule (500 mg total) by mouth 4 (four) times a day for 10 days . doxylamine (UNISON) 25 mg tablet Take 25 mg by mouth nightly as needed for sleep levETIRAcetam (KEPPRA) 750 MG tablet Take 1 (one) tablet (750 mg total) by mouth 2 (two) times a day. meclizine (ANTIVERT) 25 MG chewable tablet Chew 25 mg 2 (two) times a day pantoprazole (PROTONIX) 40 MG tablet TAKE 1 TABLET BY MOUTH TWICE A DAY ramipril (ALTACE) 10 MG capsule TAKE 1 CAPSULE BY MOUTH DAILY timolol (BETIMOL) 0.5 % ophthalmic solution 1 drop 2 (two) times a day Narx Check Score and Data was review on this visit Note: To expedite correspondence this note was generated by [employer] voice recognition software. This note was partially created using voice recognition software and is inherently subject to errors including those of syntax and sound-alike substitutions which may escape proofreading. In such instances, original meaning may be extrapolated by contextual derivation. [1] Social History Socioeconomic History Marital status: Single Tobacco Use Smoking status: Never Smokeless tobacco: Current Substance and Sexual Activity Alcohol use: Yes Alcohol/week: 0.0 standard drinks of alcohol Drug use: No [2] No Known Allergies Yumiko Nath PA-C 03/13/25 1303 [facility] 03-13-2025 Physician Emergency department Note I performed a substantive part of the MDM during the patient's E/M visit. I personally evaluated and examined the patient. I personally made or approved the documented management plan and acknowledge its risk of complications. 55-year-old gentleman with past medical history of seizures, hypertension, cirrhosis, alcohol use disorder, and more presents to the emergency department due to concern for decompensated cirrhosis with ascites. Patient was recently seen at the [facility] on February 24 due to abdominal distention but left AGAINST MEDICAL ADVICE at then came back to a different ER on March 11 or once again he declined admission or transfer for hepatology evaluation. Symptoms have since continued to worsen and now presents here due to ongoing abdominal pain. Here patient is overtly jaundiced with liver function tests with total bilirubin of 18.3, direct bilirubin of 9, alk phos of 200, AST of 112, ALT of 47, thrombocytopenia with platelets of 82 without any overt bleeding, leukopenia with white blood cell count of 3.73, anemia with hemoglobin 10.2, INR of 2.7. Patient endorses that he is willing now to be admitted, seen by hepatology, and treated which she does desperately need at this point. Patient did endorse bilateral lower extremity swelling as well which therefore we obtained an ultrasound which was negative for DVTs. Chest x-ray is unremarkable. CT of the abdomen pelvis has been recently performed on the and therefore I do not feel needs to be repeated today. Patient therefore will be admitted to the hospital for further evaluation by hepatology for further workup and medical management. BP: 107/69 Heart Rate: 90 Temp: 98.8 F (37.1 C) Resp: 18 SpO2: 99 % Medications Administered (if any) Medications - No data to display Laboratory Results Labs Reviewed BASIC METABOLIC PANEL - Abnormal; Notable for the following components: Result Value Sodium 132 (*) Potassium 3.4 (*) Chloride 97 (*) Glucose 162 (*) BUN 3 (*) BUN/Creatinine Ratio 4.5 (*) All other components within normal limits Narrative: [facility] has implemented the eGFR calculation approach that does not have a coefficient for race that conforms to the NKF-ASN Task Force Recommendations. HEPATIC FUNCTION PANEL - Abnormal; Notable for the following components: Total Protein 8.3 (*) Albumin 2.9 (*) Total Bilirubin 18.3 (*) Bilirubin, Direct 9.0 (*) Alkaline Phosphatase 200 (*) AST 112 (*) All other components within normal limits CBC WITH AUTO DIFFERENTIAL - Abnormal; Notable for the following components: WBC 3.73 (*) RBC 2.55 (*) Hemoglobin 10.2 (*) Hematocrit 30.1 (*) MCV 118.0 (*) MCH 40.0 (*) Platelets 82 (*) Lymphocytes Abs 0.70 (*) All other components within normal limits NT PRO BNP - Normal Narrative: Pride Study Cut-offs Rule In: < /= 50 Years >450 pg/mL 51 Years - 75 Years >900 pg/mL 76 Years - 99 Years >1800 pg/mL Rule Out: All patients <300 pg/mL CBC AND DIFFERENTIAL Narrative: The following orders were created for panel order CBC w/ Diff. Procedure Abnormality Status --------- ------ CBC Auto Differential[[id number]] Abnormal Final result Please view results for these tests on the individual orders. URINALYSIS Imaging Results Ultrasound Duplex Venous Legs BILATERAL (Results Pending) XR Chest 1 View (Results Pending) Procedures . . [facility] Work Phone: 03-13-2025 Emergency department Note Bed: 23 Expected date: Expected time: Means of arrival: Comments: S100 [facility] 03-13-2025 Emergency department Note Pt states sx times 3 weeks. T [facility] 03-13-2025 Emergency department Triage note Amb to triage, in ED at [facility] on Thursday, was going to be transferred by he went home. Pt states ascites and double hernia. Denies pain states he cannot eat or drink. Denies n/v/d. Difficult to urinate. Symptoms x 3 weeks, worse today. [facility] 12-16-2024 Evaluation note Diagnosis Onset Date Resolution Inguinal hernia acute November 242024 8:59am Abdominal ascites chronic December 16, 2024 8:59am Cirrhosis chronic December 16, 2024 8:59am Hypertension chronic November 8:59am Hypothyroidism chronic December 162024 8:59am Peripheral neuropathy chronic Cole nandini 2024 8:59am Inguinal hernia acute November 252024 9:29am Abdominal ascites chronic March 10:40am Alcoholic hepatitis chronic March 242024 10:40am Cirrhosis chronic March 24, 2025 10:40am Decompensated hepatic cirrhosis chronic March 24, 2025 10:40am Hypertension chronic March 24 10:40am Hypothyroidism chronic March 24 10:40am Jaundice chronic March 24, 2025 10:40am [facility] Work Phone: [phone] 768-688710-29-2024 NoteHNO ID: [id number] Author: CHRISTIAN GUERRERO APRN.[employer] Service: ? Author Type: Nurse Practitioner Type: Progress Notes Filed: 09/20/2024 11:40 Note Text: Subjective HPI HPI Aryan Valle is a 54 year old male who presents today for CC of left groin pain rates 9/10. This started 1.5 weeks ago/severe now. .Patient presents with: Pain: :Left side groin pain, states area, is burning , stinging and aching x 1.5 weeks PAST MEDICAL HISTORY Diagnosis Date ETOH abuse 12 beers per day Seizures (HCC) controlled on dilantin Vertigo uses mecliznie daily PAST SURGICAL HISTORY Procedure Laterality Date PAST SURGICAL HISTORY OF 2007 total hip replacement TONSILLECTOMY HX remote ALLERGIES Patient has no known allergies. MEDICATIONS doxycycline monohydrate (MONODOX) 50 mg capsule Take 50 mg by mouth once daily. metroNIDAZOLE (METROGEL) 0.75 % Topical Gel Apply 0.75 % to affected area once daily. furosemide (LASIX) 20 mg tablet Take 20 mg by mouth two times a day. spironolactone (ALDACTONE) 25 mg tablet Take 25 mg by mouth once daily. gabapentin (NEURONTIN) 600 mg tablet Take 1 tablet by mouth every 12 hours 6am/6pm. levothyroxine (SYNTHROID) 25 mcg tablet Take 1 tablet by mouth every afternoon. levETIRAcetam (KEPPRA) 1,000 mg tablet TAKE 1 TABLET orally twice a day] ibuprofen (MOTRIN) 600 mg tablet meclizine 25 mg Tab Take 1 tablet by mouth every 6 hours as needed (for dizziness.). levETIRAcetam (KEPPRA) 750 mg tablet (Patient not taking: Reported on 06/14/2024) FAMILY HISTORY Problem Relation Age of Onset Arthritis Father Arthritis Brother Social History Tobacco Use Smoking status: Never Substance Use Topics Alcohol use: Yes Comment: daily, 12 beer a day, history of rehab Drug use: No Review of Systems Constitutional: Negative for fever. Gastrointestinal: Negative for abdominal pain, diarrhea, nausea and vomiting. Skin: Negative for itching and rash. Objective Blood pressure 117/77, pulse 77, temperature 36.5 ?C (97.7 ?F), resp. rate 20, weight 100 kg (220 lb 7.4 oz), SpO2 98%. Physical Exam Constitutional: General: He is not in acute distress. Appearance: Normal appearance. He is not toxic-appearing. Cardiovascular: Rate and Rhythm: Normal rate and regular rhythm. Heart sounds: Normal heart sounds. Pulmonary: Effort: Pulmonary effort is normal. Breath sounds: Normal breath sounds. Abdominal: General: Bowel sounds are normal. Palpations: Abdomen is soft. Tenderness: There is no abdominal tenderness. Genitourinary: Skin: General: Skin is warm and dry. ASSESSMENT/PLAN: 1. Left inguinal pain - ICD9: 789.04, ICD10: R10.32 D/t severity of pain I will refer to ER Christian Guerrero APRN.[facility]10-29-2024 History of Present illness Narrative* Christian Guerrero APRN.[facility] - 09/20/2024 11:21 AM EDT Images from the original note were not included. Subjective HPI HPI Aryan Valle is a 54 year old male who presents today for CC of left groin pain rates 9/10.This started 1.5 weeks ago/severe now. .Patient presents with: Pain: :Left side groin pain, states area, is burning , stinging and aching x 1.5 weeks PAST MEDICAL HISTORY Diagnosis Date ETOH abuse 12 beers per day Seizures (HCC) controlled on dilantin Vertigo uses mecliznie daily PAST SURGICAL HISTORY Procedure Laterality Date PAST SURGICAL HISTORY OF 2007 total hip replacement TONSILLECTOMY HX remote ALLERGIES Patient has no known allergies. MEDICATIONS doxycycline monohydrate (MONODOX) 50 mg capsule Take 50 mg by mouth once daily. metroNIDAZOLE (METROGEL) 0.75 % Topical Gel Apply 0.75 % to affected area once daily. furosemide (LASIX) 20 mg tablet Take 20 mg by mouth two times a day. spironolactone (ALDACTONE) 25 mg tablet Take 25 mg by mouth once daily. gabapentin (NEURONTIN) 600 mg tablet Take 1 tablet by mouth every 12 hours 6am/6pm. levothyroxine (SYNTHROID) 25 mcg tablet Take 1 tablet by mouth every afternoon. levETIRAcetam (KEPPRA) 1,000 mg tablet TAKE 1 TABLET orally twice a day] ibuprofen (MOTRIN) 600 mg tablet meclizine 25 mg Tab Take 1 tablet by mouth every 6 hours as needed (for dizziness.). levETIRAcetam (KEPPRA) 750 mg tablet (Patient not taking: Reported on 06/14/2024) FAMILY HISTORY Problem Relation Age of Onset Arthritis Father Arthritis Brother Social History Tobacco Use Smoking status: Never Substance Use Topics Alcohol use: Yes Comment: daily, 12 beer a day, history of rehab Drug use: No Review of Systems Constitutional: Negative for fever. Gastrointestinal: Negative for abdominal pain, diarrhea, nausea and vomiting. Skin: Negative for itching and rash. Objective Blood pressure 117/77, pulse 77, temperature 36.5 C (97.7 F), resp. rate 20, weight 100 kg (220 lb 7.4 oz), SpO2 98%. Physical Exam Constitutional: General: He is not in acute distress. Appearance: Normal appearance. He is not toxic-appearing. Cardiovascular: Rate and Rhythm: Normal rate and regular rhythm. Heart sounds: Normal heart sounds. Pulmonary: Effort: Pulmonary effort is normal. Breath sounds: Normal breath sounds. Abdominal: General: Bowel sounds are normal. Palpations: Abdomen is soft. Tenderness: There is no abdominal tenderness. Genitourinary: Skin: General: Skin is warm and dry. ASSESSMENT/PLAN: 1. Left inguinal pain - ICD9: 789.04, ICD10: R10.32 D/t severity of pain I will refer to ER Christian Guerrero APRN.[employer] [facility] NoteHNO ID: [id number] Author: ALISHA LAGOS APRN.[facility] Service: ? Author Type: Nurse Practitioner Type: Progress Notes Filed: 06/14/2024 10:00 Note Text: Subjective Patient came in with complaints of right great toe pain. Patient says he noticed some redness. Patient denies any fever chills nausea vomiting. The history is provided by the patient. No jewel oliving machine operator was used. Pain (foot) Review of Systems Constitutional: Negative. Skin: Negative. Objective Physical Exam Constitutional: Appearance: Normal appearance. Pulmonary: Effort: Pulmonary effort is normal. Musculoskeletal: Feet: Feet: Comments: Redness located where purple as marked above. Patient also does have severely fungus to toenails that is growing almost straight up. No signs of pus or drainage. Neurological: Mental Status: He is alert. PAST MEDICAL HISTORY Diagnosis Date ETOH abuse 12 beers per day Seizures (HCC) controlled on dilantin Vertigo uses mecliznie daily PAST SURGICAL HISTORY Procedure Laterality Date PAST SURGICAL HISTORY OF 2007 total hip replacement TONSILLECTOMY HX remote ALLERGIES Patient has no known allergies. MEDICATIONS furosemide (LASIX) 20 mg tablet Take 20 mg by mouth two times a day. spironolactone (ALDACTONE) 25 mg tablet Take 25 mg by mouth once daily. gabapentin (NEURONTIN) 600 mg tablet Take 1 tablet by mouth every 12 hours 6am/6pm. levothyroxine (SYNTHROID) 25 mcg tablet Take 1 tablet by mouth every afternoon. levETIRAcetam (KEPPRA) 1,000 mg tablet TAKE 1 TABLET orally twice a day] ibuprofen (MOTRIN) 600 mg tablet meclizine 25 mg Tab Take 1 tablet by mouth every 6 hours as needed (for dizziness.). doxycycline monohydrate 100 mg tablet Take 1 tablet by mouth two times a day for 7 days. carvedilol (COREG) 25 mg tablet (Patient not taking: Reported on 06/14/2024) levETIRAcetam (KEPPRA) 750 mg tablet (Patient not taking: Reported on 06/14/2024) pantoprazole DR (PROTONIX) 40 mg tablet (Patient not taking: Reported on 06/14/2024) ramipril (ALTACE) 10 mg capsule (Patient not taking: Reported on 06/11/2023) Bimatoprost (LUMIGAN) 0.01 % Drop 1 Drop. (Patient not taking: Reported on 06/14/2024) brinzolamide (AZOPT) 1 % ophthalmic suspension 1 Drop three times daily. (Patient not taking: Reported on 06/14/2024) Brimonidine-Timolol (COMBIGAN) 0.2-0.5 % Drop Use in both eyes. (Patient not taking: Reported on 06/14/2024) phenytoin SR (DILANTIN) 100 mg ER capsule Take 1 capsule by mouth three times daily. (Patient not taking: Reported on 06/14/2024) acetaminophen 325 mg tablet Take 1-2 tablets by mouth every 4 hours as needed for Pain. (Patient not taking: Reported on 06/14/2024) multivitamin tablet Take 1 tablet by mouth once daily. (Patient not taking: Reported on 06/14/2024) FAMILY HISTORY Problem Relation Age of Onset Arthritis Father Arthritis Brother Social History Tobacco Use Smoking status: Never Substance Use Topics Alcohol use: Yes Comment: daily, 12 beer a day, history of rehab Drug use: No ASSESSMENT/PLAN: 1. Skin infection - ICD9: 686.9, ICD10: L08.9 (primary diagnosis) - DOXYCYCLINE MONOHYDRATE 100 MG TABLET 2. Pain - ICD9: 780.96, ICD10: R52 - CONSULT TO PODIATRY Was set up with an appt. Educated about proper use of medication supportive therapies. Red flag symptoms were discussed. Patient will follow-up with signs and symptoms seem to be getting worse. Alisha Lagos APRN.[facility]07-23-2024 History of Present illness Narrative* Alisha Lagos APRN.[facility] - 06/14/2024 9:36 AM EDT Images from the original note were not included. Subjective Patient came in with complaints of right great toe pain. Patient says he noticed some redness. Patient denies any fever chills nausea vomiting. The history is provided by the patient. No jewel oliving machine operator was used. Pain (foot) Review of Systems Constitutional: Negative. Skin: Negative. Objective Physical Exam Constitutional: Appearance: Normal appearance. Pulmonary: Effort: Pulmonary effort is normal. Musculoskeletal: Feet: Feet: Comments: Redness located where purple as marked above. Patient also does have severely fungus to toenails that is growing almost straight up. No signs of pus or drainage. Neurological: Mental Status: He is alert. PAST MEDICAL HISTORY Diagnosis Date ETOH abuse 12 beers per day Seizures (HCC) controlled on dilantin Vertigo uses mecliznie daily PAST SURGICAL HISTORY Procedure Laterality Date PAST SURGICAL HISTORY OF 2007 total hip replacement TONSILLECTOMY HX remote ALLERGIES Patient has no known allergies. MEDICATIONS furosemide (LASIX) 20 mg tablet Take 20 mg by mouth two times a day. spironolactone (ALDACTONE) 25 mg tablet Take 25 mg by mouth once daily. gabapentin (NEURONTIN) 600 mg tablet Take 1 tablet by mouth every 12 hours 6am/6pm. levothyroxine (SYNTHROID) 25 mcg tablet Take 1 tablet by mouth every afternoon. levETIRAcetam (KEPPRA) 1,000 mg tablet TAKE 1 TABLET orally twice a day] ibuprofen (MOTRIN) 600 mg tablet meclizine 25 mg Tab Take 1 tablet by mouth every 6 hours as needed (for dizziness.). doxycycline monohydrate 100 mg tablet Take 1 tablet by mouth two times a day for 7 days. carvedilol (COREG) 25 mg tablet (Patient not taking: Reported on 06/14/2024) levETIRAcetam (KEPPRA) 750 mg tablet (Patient not taking: Reported on 06/14/2024) pantoprazole DR (PROTONIX) 40 mg tablet (Patient not taking: Reported on 06/14/2024) ramipril (ALTACE) 10 mg capsule (Patient not taking: Reported on 06/11/2023) Bimatoprost (LUMIGAN) 0.01 % Drop 1 Drop. (Patient not taking: Reported on 06/14/2024) brinzolamide (AZOPT) 1 % ophthalmic suspension 1 Drop three times daily. (Patient not taking: Reported on 06/14/2024) Brimonidine-Timolol (COMBIGAN) 0.2-0.5 % Drop Use in both eyes. (Patient not taking: Reported on 06/14/2024) phenytoin SR (DILANTIN) 100 mg ER capsule Take 1 capsule by mouth three times daily. (Patient not taking: Reported on 06/14/2024) acetaminophen 325 mg tablet Take 1-2 tablets by mouth every 4 hours as needed for Pain. (Patient not taking: Reported on 06/14/2024) multivitamin tablet Take 1 tablet by mouth once daily. (Patient not taking: Reported on 06/14/2024) FAMILY HISTORY Problem Relation Age of Onset Arthritis Father Arthritis Brother Social History Tobacco Use Smoking status: Never Substance Use Topics Alcohol use: Yes Comment: daily, 12 beer a day, history of rehab Drug use: No ASSESSMENT/PLAN: 1. Skin infection - ICD9: 686.9, ICD10: L08.9 (primary diagnosis) - DOXYCYCLINE MONOHYDRATE 100 MG TABLET 2. Pain - ICD9: 780.96, ICD10: R52 - CONSULT TO PODIATRY Was set up with an appt. Educated about proper use of medication supportive therapies. Red flag symptoms were discussed. Patient will follow-up with signs and symptoms seem to be getting worse. Alisha Lagos APRN.[facility] Discharge summary Author Anselmo Edwards [facility] July 18, 2023 10:41am Note Date/Time July 18, 2023 10 :28am [facility] Medical Records Department [address] [place] [id number] Discharge Summary 07/18/23 1027 MR#: [id number] Acct: [id number] Name: ARYAN VALLE Rep #:[id number] : 1970 53 From: Anselmo Edwards MD PCP: Dr. Tana Farmer MD Status:A DM IN Location: [place] [address] Providers Date of Admission: 07/16/23 Date of Discharge: 07/18/23 Primary Care Physician: Dr. Tana Farmer MD Consultations 07/16/23 17:05 Consult: Gastroenterology Routine Consulting Provider: [facility] Reason for Consult: Alcohol hepatitis, concern for underlying cirrhosis EMERGENT Consult: No Notified: Yes Date Notified: 07/16/23 Time Notified: 16:38 Method of Notification: via text Consult: Interventional Radiology Routine Consulting Provider: Kar Dave Reason for Consult: Diagnostic and therapeutic paracentesis EMERGENT Consult: No Notified: Yes Date Notified: 07/17/23 Time Notified: 08:15 Method of Notification: Answering Service Reason For Visit: NEW ASCITES, ALCOHOLIC LIVER DISEASE Diagnosis Discharge Diagnosis (1) Alcoholic hepatitis: Status: Chronic Code(s): K70.10 - Alcoholic hepatitis without ascites Qualifiers: Ascites presence: unspecified Qualified Code(s): K70.10 - Alcoholic hepatitis without ascites Plan Patient is a 53-year-old gentleman admitted with worsening abdominal distention 1. Alcoholic hepatitis with ascites, concern for underlying cirrhosis ? Patient liver function profile consistent with alcoholic hepatitis. Admitted to regular nursing floor. Consultation placed to GI. Friend's notes and recommendations reviewed 2. Chronic alcohol use disorder ? Patient was placed on alcohol withdrawal protocol with CIWA 3. Ascites ? In the setting of suspected cirrhosis patient to undergo diagnostic and therapeutic paracentesis 08/18/2023; Underwent ultrasound-guided paracentesis on 07/17/2023 with 1950 ml of clear straw colored ascites fluid were removed from the peritoneal cavity 4. Chronic microcytic anemia ? Possibly related to patient's chronic alcohol use monitoring with daily H&H with plans to transfuse if hemoglobin falls below 7 or patient is deemed to be symptomatic 5. Thrombocytopenia ? Secondary to suspected underlying cirrhosis of the liver . Seizure disorder ? Patient is on Keppra did continue 7. Hypothyroidism - Patient is on levothyroxine home dose continued 8. Hypokalemia ? Corrected protocol repeat labs ordered for a.m. 9. Overweight with BMI of 29.3 ? Weight loss advised 10. DVT prophylaxis ? Avoided the use of chemoprophylaxis given patient's low platelet count Time spent in the patient's overall evaluation,decision-making process, review of diagnostic data, adjustment of management, discussion with other providers, nursing nursing and ancillary staff involved in patient's care documentation, 35 Minutes Medications at Discharge Home Medications compress.stocking,knee,reg,lrg #2 ea 09/18/21 sildenafil 50 mg tablet 50 mg PO DAILY PRN sexual activity #10 tabs 04/24/22 lidocaine 5 % topical patch 1 patch topical DAILY PRN rib pain #30 ea 07/10/22 metronidazole 1 % topical gel (Metrogel) 1 applic topical QHS #60 grams 12/11/22 metronidazole 0.75 % topical gel 1 applic topical BID #45 grams 12/17/22 levothyroxine 25 mcg tablet 25 mcg PO DAILY thyroid #90 tabs 03/25/23 meclizine 25 mg tablet 25 mg PO BID PRN dizziness #60 tabs 05/01/23 lactulose 10 gram/15 mL (15 mL) oral solution 10 g (15 mL) PO BID potassium #750mL 06/21/23 gabapentin 600 mg tablet 600 mg PO BID pain #60 tabs 06/26/23 levetiracetam 1,000 mg tablet 1,000 mg PO BID ? #180 tabs 07/10/23 furosemide 20 mg tablet 20 mg PO BIDLX 120 days #240 tabs 07/18/23 prednisone 20 mg tablet 40 mg (2 x 20 mg) PO BREAKFAST #10 tabs 07/18/23 spironolactone 25 mg tablet 25 mg PO BID #120 tabs 07/18/23 Hospital Course Procedures Paracentesis Summary of Care Provided Minutes Spent on Discharge: 35 Physical Exam Narrative GENERAL: cooperative HEENT: Atraumatic; normocephalic EYES; Anicteric, Normal Conjunctiva NECK; supple, normal thyroid, RESPIRATORY: Diminished to auscultation CARDIOVASCULAR: Regular S1 S2, GI: soft, normoactive bowel sounds, : No Renal angle tenderness; EXTREMITIES: edema, no clubbing, MUSCULOSKELETAL: no muscle wasting NEURO: Awake; no lateralizing signs. SKIN: No Rash PSYCH; Flat affect Weight / BMI Weight Weight: 97.4 kg Body Mass Index (BMI) 29.0 ABG / Lab / Microbiology Data 07/18/23 07:10 07/18/23 07:10 Laboratory: Laboratory Results - last 24 hr 07/16/23 14:50: Hepatitis A IgM Ab Negative, Hep Bs Antigen Negative, Hep B CoreIgM Ab Negative, Hepatitis C Ab (EIA) Non Reactive, Hep C Ab Comment Comment 07/17/23 14:46: Fluid Source OTHER, Fluid Color YELLOW, Fluid Appearance CLEAR, Fluid WBC 0.131, Fluid RBC 180, Fluid Tot Cell Count 0.160, Fld Polynuclear WBCs# 0.025, Fld Polynuclear WBCs % 19.1, Fluid Mononuclear WBCs 0.106, Fld Mononuclear WBCs % 80.9, Fluid Neutrophils 17, Fluid Lymphocytes 23, Fluid Monocytes 5, Fluid Macrophages 26, Fld Mesothelial Cells 29, Fl Pathologist Comment May follow, Fluid Comment 2 Not Reportable 07/18/23 07:10: WBC 4.8, RBC 2.65 L, Hgb 9.9 L, Hct 28.0 L, MCV 105.7 H, MCH 37.4 H, MCHC 35.4, RDW Std Deviation 54.4 H, RDW Coeff of Demond 14.0, Plt Count 126 L, MPV 10.1, Immature Gran % (Auto) 0.400, Neut % (Auto) 76.4 H, Lymph % (Auto) 15.9 L, Chicot % (Auto) 7.3, Eos % (Auto) 0.0, Baso % (Auto) 0.0, Absolute Neuts (auto) 3.7, Absolute Lymphs (auto) 0.76 L, Nucleated RBC % 0, Sodium 137, Potassium 3.4 L, Chloride 100, Carbon Dioxide 29.0, Anion Gap 8, BUN 4 L, Creatinine 0.67 L, Estim Creat Clear Calc 141.56, Est GFR (MDRD) Af Amer 161, Est GFR (MDRD) Non-Af 133, BUN/Creatinine Ratio 6.0 L, Glucose 130 H, Calcium 8.5, Phosphorus 2.2 L, Magnesium 1.9, Total Bilirubin 8.70 H, Direct Bilirubin 2.67 H, AST 48 H, ALT 27, Alkaline Phosphatase 90, Total Protein 6.0 L, Albumin 2.1 L, Globulin 3.9 Microbiology: Microbiology 07/17/23 14:46 Fluid - Paracentesis (Abd) Gram Stain - Final Radiography Diagnostic Testing: Radiology Impression Paracentesis Ultrasound 07/17/23 17:36 IMPRESSION: Ultrasound guided diagnostic and therapeutic paracentesis. Electronically Signed: Phillip Man DO at 16:46 EDT , D/C Instructions Discharge Diet: No restrictions Discharge Activity: Return to Normal Activity Call your doctor if you observe: Fever of 101 or Higher, Shortness of breath, Fainting spells and Chest pain Meaningful Use Info Meaningful Use Diagnoses (Choose all that apply): None applicable Discharge Plan Admission Admit Date/Time: 07/16/23 16:33 Attending Provider: Anselmo Edwards Primary Care Provider: Tana Farmer Consulting Providers: Brian Junior; Kar Dave; Phillip Man Instructions Patient Instructions: DEDRICK RN Paracentesis Dc Discharge Orders/Prescriptions Prescriptions: New prednisone 20 mg Tablet 40 mg PO BREAKFAST Qty: 10 0RF spironolactone 25 mg Tablet 25 mg PO BID Qty: 120 0RF furosemide 20 mg Tablet 20 mg PO BIDLX 120 Days Qty: 240 0RF Continued (DME) compress.stocking,knee,reg,lrg Misc See Rx Instructions .MEDSUPPLY Qty: 2 1RF Rx Instructions: wear daily for venous insufficiency 20-30 mmHg metronidazole [Metrogel] 1 % gel 1 applic topical QHS Qty: 60 1RF sildenafil 50 mg tablet 50 mg PO DAILY PRN (Reason: sexual activity) Qty: 10 0RF Rx Instructions: administer 30 minutes to 4 hours before activity lidocaine 5 % adhesive patch,medicated 1 patch TOPICAL DAILY PRN (Reason: rib pain) Qty: 30 1RF Rx Instructions: leave on most painful area for 12 hrs metronidazole 0.75 % gel 1 applic topical BID Qty: 45 1RF levothyroxine 25 mcg tablet 25 mcg PO DAILY Qty: 90 3RF meclizine 25 mg tablet 25 mg PO BID PRN (Reason: dizziness) Qty: 60 2RF lactulose 10 gram/15 mL (15 mL) solution 10 g PO BID Qty: 750 3RF gabapentin 600 mg tablet 600 mg PO BID Qty: 60 0RF Rx Instructions: TAKE 1 TABLET BY MOUTH TWICE A DAY levetiracetam 1,000 mg tablet 1,000 mg PO BID Qty: 180 1RF Discontinued ibuprofen 800 mg tablet 800 mg PO Q8 PRN (Reason: Pain) Qty: 60 0RF Referrals / Follow Up: Tana Farmer MD [Primary Care Provider] - Within 2 Weeks Abel Parr DO [Med Staff - Active Staff] - Within 2 Weeks Disposition Disposition (needs filled in before D/C Order can be placed): Home, Self Care Charges/Coding Visit Charges Inpatient E&M: 69413 Disch Hosp >30min 07/18/23 1041 <Electronically signed by Anselmo Edwards MD> Cosigner Signature (if applicable): CC: Dr. Anselmo Edwards MD; Dr. Tana Farmer MD~ Signed [facility] Work Phone: 1(405) 916-764408-26-2023 Progress note Author Anselmo Edwards [facility] July 18, 2023 10:24am Note Date/Time July 18, 2023 8: 11am [facility] Medical Records Department [address] [place] [address] Progress Note - Hospitalist 07/18/23 0810 MR#: [id number] Acct: [id number] Name: ARYAN VALLE Rep #:[id number] : 1970 53 From: Anselmo Edwards MD PCP: Dr. Tana Farmer MD Status:A DM IN Location: [place] [id number] Reason for Visit Reason for Visit: Diagnoses Alcoholic hepatitis without ascites (07/16/23) Alcoholic cirrhosis of liver with ascites (07/16/23) Unspecified jaundice (07/16/23) Subjective Subjective Underwent ultrasound-guided paracentesis on 07/17/2023 with 1950 ml of clear straw colored ascites fluid were removed from the peritoneal cavity Objective Data Objective Data Vital Signs: Vital Signs Temp Pulse Resp BP Pulse Ox O2 Del Method 98.7 F 88 18 101/66 96 Room Air 07/18/23 05:44 07/18/23 05:44 07/18/23 05:44 07/18/23 05:44 07/18/23 05:44 07/18/23 05:50 Oxygen Delivery Method [3] Room Air Oxygen Delivery Method [2] Room Air Oxygen Delivery Method [1 ( Room Air Initial Baseline)] Oxygen Delivery Method Room Air Weight: 97.4 kg Body Mass Index (BMI) 29.0 Intake & Output: Intake and Output for Last 24 Hours 07/16/23 07/17/23 07/18/23 23:59 23:59 23:59 Intake Total 200 / 200 1269.95 / 1269.95 524.5 / 524.5 Output Total 2276 / 2276 1100 / 1100 Balance 200 / 200 -1006.05 / -1006.05 -575.5 / -575.5 Lab / Micro Data 07/18/23 07:10 07/18/23 07:10 Labs: Laboratory Results - last 24 hr 07/17/23 14:46: Fluid Source OTHER, Fluid Color YELLOW, Fluid Appearance CLEAR, Fluid WBC 0.131, Fluid RBC 180, Fluid Tot Cell Count 0.160, Fld Polynuclear WBCs# 0.025, Fld Polynuclear WBCs % 19.1, Fluid Mononuclear WBCs 0.106, Fld Mononuclear WBCs % 80.9, Fluid Neutrophils 17, Fluid Lymphocytes 23, Fluid Monocytes5, Fluid Macrophages 26, Fld Mesothelial Cells 29, Fl Pathologist Comment May follow, Fluid Comment 2 Not Reportable 07/18/23 07:10: WBC 4.8, RBC 2.65 L, Hgb 9.9 L, Hct 28.0 L, MCV 105.7 H, MCH 37.4 H, MCHC 35.4, RDW Std Deviation 54.4 H, RDW Coeff of Demond 14.0, Plt Count 126 L, MPV 10.1, Immature Gran % (Auto) 0.400, Neut % (Auto) 76.4 H, Lymph % (Auto) 15.9 L, Chicot % (Auto) 7.3, Eos % (Auto) 0.0, Baso % (Auto) 0.0, Absolute Neuts (auto) 3.7, Absolute Lymphs (auto) 0.76 L, Nucleated RBC % 0 Micro: Microbiology 07/17/23 14:46 Fluid - Paracentesis (Abd) Gram Stain - Final Radiography Diagnostic Testing: Radiology Impression Paracentesis Ultrasound 07/17/23 17:36 IMPRESSION: Ultrasound guided diagnostic and therapeutic paracentesis. Electronically Signed: Philliprut Man DO at 16:46 EDT , Physical Exam Narrative GENERAL: cooperative HEENT: Atraumatic; normocephalic EYES; Anicteric, Normal Conjunctiva NECK; supple, normal thyroid, RESPIRATORY: Diminished to auscultation CARDIOVASCULAR: Regular S1 S2, GI: soft, normoactive bowel sounds, distended abdomen : No Renal angle tenderness; EXTREMITIES: edema, no clubbing, MUSCULOSKELETAL: no muscle wasting NEURO: Awake; no lateralizing signs. SKIN: No Rash PSYCH; Flat affect Assessment & Plan Assessment/Plan (1) Alcoholic hepatitis: QUALIFIERS: Ascites presence: unspecified Qualified Code(s): K70.10 - Alcoholic hepatitis without ascites PLAN: Plan Patient is a 53-year-old gentleman admitted with worsening abdominal distention 1. Alcoholic hepatitis with ascites, concern for underlying cirrhosis ? Patient liver function profile consistent with alcoholic hepatitis. Admitted to regular nursing floor. Consultation placed to GI. Friend's notes and recommendations reviewed 2. Chronic alcohol use disorder ? Patient was placed on alcohol withdrawal protocol with CIWA 3. Ascites ? In the setting of suspected cirrhosis patient to undergo diagnostic and therapeutic paracentesis 08/18/2023; Underwent ultrasound-guided paracentesis on 07/17/2023 with 1950 ml of clear straw colored ascites fluid were removed from the peritoneal cavity 4. Chronic microcytic anemia ? Possibly related to patient's chronic alcohol use monitoring with daily H&H with plans to transfuse if hemoglobin falls below 7 or patient is deemed to be symptomatic 5. Thrombocytopenia ? Secondary to suspected underlying cirrhosis of the liver . Seizure disorder ? Patient is on Keppra did continue 7. Hypothyroidism - Patient is on levothyroxine home dose continued 8. Hypokalemia ? Corrected protocol repeat labs ordered for a.m. 9. Overweight with BMI of 29.3 ? Weight loss advised 10. DVT prophylaxis ? Avoided the use of chemoprophylaxis given patient's low platelet count Time spent in the patient's overall evaluation,decision-making process, review of diagnostic data, adjustment of management, discussion with other providers, nursing nursing and ancillary staff involved in patient's care documentation, 35 Minutes Charges/Coding Visit Charges Inpatient E&M: 41502 Subs Hosp L2 07/18/23 1024 <Electronically signed by Anselmo Edwards MD> Cosigner Signature (if applicable): CC: ~ Signed [facility] Work Phone: 1(504) 728-263708-26-2023 Progress note Author Abel Parr [facility] July 18, 2023 10:15am Note Date/Time July 18, 2023 10 :16am [facility] Medical Records Department [address] [place] [address] Progress Note - GI 07/18/23 1014 MR#: [id number] Acct: [id number] Name: ARYAN VALLE YOLIS Rep #:[id number] : 1970 53 From: Abel Parr DO PCP: Dr. Tana Farmer MD Status:A DM IN Location: [place] [id number] Subjective Subjective Patient is status post removal of 2 L of serosanguineous fluid via paracentesis. Objective Data Objective Data Vital Signs: Vital Signs Temp Pulse Resp BP Pulse Ox O2 Del Method 98.2 F 89 18 103/61 94 Room Air 07/18/23 08:33 07/18/23 08:33 07/18/23 08:33 07/18/23 08:33 07/18/23 08:33 07/18/23 08:33 Oxygen Delivery Method [3] Room Air Oxygen Delivery Method [2] Room Air Oxygen Delivery Method [1 ( Room Air Initial Baseline)] Oxygen Delivery Method Room Air Weight: 214 lb 11.684 oz Body Mass Index (BMI) 29.0 Intake & Output: Intake and Output for Last 24 Hours 07/16/23 07/17/23 07/18/23 23:59 23:59 23:59 Intake Total 200 / 200 1269.95 / 1269.95 524.5 / 524.5 Output Total 2276 / 2276 1100 / 1100 Balance 200 / 200 -1006.05 / -1006.05 -575.5 / -575.5 Lab / Micro Data 07/18/23 07:10 07/18/23 07:10 Labs: Laboratory Results - last 24 hr 07/16/23 14:50: Hepatitis A IgM Ab Negative, Hep Bs Antigen Negative, Hep B CoreIgM Ab Negative, Hepatitis C Ab (EIA) Non Reactive, Hep C Ab Comment Comment 07/17/23 14:46: Fluid Source OTHER, Fluid Color YELLOW, Fluid Appearance CLEAR, Fluid WBC 0.131, Fluid RBC 180, Fluid Tot Cell Count 0.160, Fld Polynuclear WBCs# 0.025, Fld Polynuclear WBCs % 19.1, Fluid Mononuclear WBCs 0.106, Fld Mononuclear WBCs % 80.9, Fluid Neutrophils 17, Fluid Lymphocytes 23, Fluid Monocytes 5, Fluid Macrophages 26, Fld Mesothelial Cells 29, Fl Pathologist Comment May follow, Fluid Comment 2 Not Reportable 07/18/23 07:10: WBC 4.8, RBC 2.65 L, Hgb 9.9 L, Hct 28.0 L, MCV 105.7 H, MCH 37.4 H, MCHC 35.4, RDW Std Deviation 54.4 H, RDW Coeff of Demond 14.0, Plt Count 126 L, MPV 10.1, Immature Gran % (Auto) 0.400, Neut % (Auto) 76.4 H, Lymph % (Auto) 15.9 L, Chicot % (Auto) 7.3, Eos % (Auto) 0.0, Baso % (Auto) 0.0, Absolute Neuts (auto) 3.7, Absolute Lymphs (auto) 0.76 L, Nucleated RBC % 0, Sodium 137, Potassium 3.4 L, Chloride 100, Carbon Dioxide 29.0, Anion Gap 8, BUN 4 L, Creatinine 0.67 L, Estim Creat Clear Calc 141.56, Est GFR (MDRD) Af Amer 161, Est GFR (MDRD) Non-Af 133, BUN/Creatinine Ratio 6.0 L, Glucose 130 H, Calcium 8.5, Phosphorus 2.2 L, Magnesium 1.9, Total Bilirubin 8.70 H, Direct Bilirubin 2.67 H, AST 48 H, ALT 27, Alkaline Phosphatase 90, Total Protein 6.0 L, Albumin 2.1 L, Globulin 3.9 Micro: Microbiology 07/17/23 14:46 Fluid - Paracentesis (Abd) Gram Stain - Final Radiography Diagnostic Testing: Radiology Impression Paracentesis Ultrasound 07/17/23 17:36 IMPRESSION: Ultrasound guided diagnostic and therapeutic paracentesis. Electronically Signed: Phillip Man DO at 16:46 EDT Reading Location ID and State: [facility] / [place] Tel , Service support , Physical Exam Narrative GENERAL: cooperative HEENT: Atraumatic; normocephalic EYES; Anicteric, Normal Conjunctiva NECK; supple, normal thyroid, RESPIRATORY: Diminished to auscultation CARDIOVASCULAR: Regular S1 S2, GI: soft, normoactive bowel sounds, distended abdomen : No Renal angle tenderness; EXTREMITIES: edema, no clubbing, MUSCULOSKELETAL: no muscle wasting NEURO: Awake; no lateralizing signs. SKIN: No Rash PSYCH; Flat affect Assessment & Plan Assessment/Plan (1) Alcoholic hepatitis: QUALIFIERS: Ascites presence: unspecified Qualified Code(s): K70.10 - Alcoholic hepatitis without ascites PLAN: Plan Patient is a 53 M with history of alcohol use disorder, seizure disorder and hypothyroidism who presented to the [facility] ED on 07/16/2023 with worsening abdominal distention. 1. Alcoholic hepatitis with ascites, concern for underlying cirrhosis Labs and imaging on admission as noted above highly suggestive of alcoholic hepatitis. MELD-Na score of 35 on admission. Alcohol use history as noted below. - Hepatitis panel pending. Interventional radiology consulted for diagnostic and therapeutic paracentesis. Follow MELD scores. I started him on N-acetylcysteine for acute alcoholic hepatitis along with prednisone. 2. Alcohol use disorder Current drinker, drinks 1 large glass of wine daily. Has history of very heavy beer use; used to drink a 30 pack of beer per day for many years. Has not been able to tolerate beer for the last few months, and that he has been drinking wine. Has history of withdrawal symptoms but denies any withdrawal seizures in the past. -We will place on CIWA protocol for now. Low threshold to switch to a phenobarbital taper if needed. 3. Chronic macrocytic anemia -Likely secondary to nutritional deficiencies in the setting of his chronic alcohol use. Hemoglobin 11.0 on admit, baseline appears to be around 11-12. MCV 105. Will check vitamin B12 and folate levels. We will also check for irondeficiency. 4. Thrombocytopenia ? Suspect secondary to underlying cirrhosis. Platelets 129 on admission. Monitor. 5. Hypokalemia ? Likely secondary to nutritional deficiency in setting of alcohol use. K of 3.1 on admit. Replete as needed. Check Mg level as well and replete as needed. 6. Ascites -He underwent paracentesis today. SAG gradient was greater than 1.1 consistent with portal hypertension. I will write him on an 6 and Actos. He will need to be screened for esophageal varices. I started him on Lasix and Aldactone and heis having good urinary output from those 2 medicines. He will need to continue that as an outpatient. Charges/Coding Visit Charges Inpatient E&M: 55568 Subs Hosp L3 07/18/23 1015 <Electronically signed by Abel Parr DO> Cosigner Signature (if applicable): CC: ~ Signed [facility] Work Phone: 1(254) 763-104908-25-2023 Progress note Author Abel Friend [facility] July 17, 2023 6:48pm Note Date/Time July 17, 2023 6: 48pm [facility] Medical Records Department [address] [place] [address] Progress Note - GI 07/17/23 1845 MR#: [id number] Acct: [id number] Name: ARYAN VALLE Rep #:[id number] : 1970 53 From: Abel Friend DO PCP: Dr. Tana Farmer MD Status:A DM IN Location: MT3 [id number] Subjective Subjective Patient underwent paracentesis today. His abdomen does feel better. He has notshown any signs of alcohol withdrawal at this time. He is tolerating a diet. Objective Data Objective Data Vital Signs: Vital Signs Temp Pulse Resp BP Pulse Ox O2 Del Method 98.3 F 86 20 H 126/86 H 95 Room Air 07/17/23 14:50 07/17/23 14:50 07/17/23 14:50 07/17/23 14:50 07/17/23 14:50 07/17/23 14:52 Oxygen Delivery Method [3] Room Air Oxygen Delivery Method [2] Room Air Oxygen Delivery Method [1 ( Room Air Initial Baseline)] Oxygen Delivery Method Room Air Weight: 215 lb 13.321 oz Body Mass Index (BMI) 29.2 Intake & Output: Intake and Output for Last 24 Hours 07/15/23 07/16/23 07/17/23 23:59 23:59 23:59 Intake Total 200 / 200 1269.95 / 1269.95 Output Total 1950 Balance 200 / 200 -681.05 / -681.05 Lab / Micro Data 07/16/23 13:25 07/16/23 13:25 Labs: Laboratory Results - last 24 hr 07/16/23 13:25: HIV 1&2 Antibody Non-Reactive 07/16/23 18:40: Hepatitis A IgM Ab Cancelled, Hep Bs Antigen Cancelled, Hep B Core IgM Ab Cancelled, Hepatitis C Ab (EIA) Cancelled, Hep C Ab Comment Cancelled 07/17/23 14:46: Fluid Source OTHER, Fluid Color YELLOW, Fluid Appearance CLEAR, Fluid WBC 0.131, Fluid RBC 180, Fluid Tot Cell Count 0.160, Fld Polynuclear WBCs# 0.025, Fld Polynuclear WBCs % 19.1, Fluid Mononuclear WBCs 0.106, Fld Mononuclear WBCs % 80.9, Fluid Neutrophils 17, Fluid Lymphocytes 23, Fluid Monocytes 5, Fluid Macrophages 26, Fld Mesothelial Cells 29, Fl Pathologist Comment May follow, Fluid Comment 2 Not Reportable Micro: Microbiology 07/17/23 14:46 Fluid - Paracentesis (Abd) Gram Stain - Final Radiography Diagnostic Testing: Radiology Impression Paracentesis Ultrasound 07/17/23 17:36 IMPRESSION: Ultrasound guided diagnostic and therapeutic paracentesis. Electronically Signed: Phillip Man DO at 16:46 EDT , Physical Exam Narrative GENERAL: cooperative HEENT: Atraumatic; normocephalic EYES; Anicteric, Normal Conjunctiva NECK; supple, normal thyroid, RESPIRATORY: Diminished to auscultation CARDIOVASCULAR: Regular S1 S2, GI: soft, normoactive bowel sounds, distended abdomen : No Renal angle tenderness; EXTREMITIES: edema, no clubbing, MUSCULOSKELETAL: no muscle wasting NEURO: Awake; no lateralizing signs. SKIN: No Rash PSYCH; Flat affect Assessment & Plan Assessment/Plan (1) Alcoholic hepatitis: QUALIFIERS: Ascites presence: unspecified Qualified Code(s): K70.10 - Alcoholic hepatitis without ascites PLAN: Plan Patient is a 53 M with history of alcohol use disorder, seizure disorder and hypothyroidism who presented to the [facility] ED on 07/16/2023 with worsening abdominal distention. 1. Alcoholic hepatitis with ascites, concern for underlying cirrhosis Labs and imaging on admission as noted above highly suggestive of alcoholic hepatitis. MELD-Na score of 35 on admission. Alcohol use history as noted below. - Hepatitis panel pending. Interventional radiology consulted for diagnostic and therapeutic paracentesis. Follow MELD scores. I started him on N-acetylcysteine for acute alcoholic hepatitis along with prednisone. 2. Alcohol use disorder Current drinker, drinks 1 large glass of wine daily. Has history of very heavy beer use; used to drink a 30 pack of beer per day for many years. Has not been able to tolerate beer for the last few months, and that he has been drinking wine. Has history of withdrawal symptoms but denies any withdrawal seizures in the past. -We will place on CIWA protocol for now. Low threshold to switch to a phenobarbital taper if needed. 3. Chronic macrocytic anemia -Likely secondary to nutritional deficiencies in the setting of his chronic alcohol use. Hemoglobin 11.0 on admit, baseline appears to be around 11-12. MCV 105. Will check vitamin B12 and folate levels. We will also check for irondeficiency. 4. Thrombocytopenia ? Suspect secondary to underlying cirrhosis. Platelets 129 on admission. Monitor. 5. Hypokalemia ? Likely secondary to nutritional deficiency in setting of alcohol use. K of 3.1 on admit. Replete as needed. Check Mg level as well and replete as needed. 6. Ascites -He underwent paracentesis today. SAG gradient was greater than 1.1 consistent with portal hypertension. I will write him on an 6 and Actos. He will need to be screened for esophageal varices. Charges/Coding Visit Charges Inpatient E&M: 91401 Subs Hosp L3 07/17/231847 <Electronically signed by Abel Friend DO> Cosigner Signature (if applicable): CC: ~ Signed [facility] Work Phone: 1(489) 405-418108-25-2023 Progress note Author Anselmo Edwards [facility] July 17, 2023 11:15am Note Date/Time July 17, 2023 7: 31am [facility] Medical Records Department [address] [place] [address] Progress Note - Hospitalist 07/17/23 0729 MR#: [id number] Acct: [id number] Name: ARYAN VALLE Rep #:[id number] : 1970 53 From: Anselmo Edwards MD PCP: Dr. Tana Farmer MD Status:A DM IN Location: [place] [address]-1 Reason for Visit Reason for Visit: Diagnoses Alcoholic hepatitis without ascites (07/16/23) Alcoholic cirrhosis of liver with ascites (07/16/23) Unspecified jaundice (07/16/23) Subjective Subjective Patient is a 53-year-old gentleman admitted with worsening abdominal distention Objective Data Objective Data Vital Signs: Vital Signs Temp Pulse Resp BP Pulse Ox O2 Del Method 98.1 F 86 18 106/65 93 Room Air 07/17/23 05:59 07/17/23 05:59 07/17/23 05:59 07/17/23 05:59 07/17/23 05:59 07/17/23 06:00 Oxygen Delivery Method Room Air Weight: 97.9 kg Body Mass Index (BMI) 29.2 Intake & Output: Intake and Output for Last 24 Hours 07/15/23 07/16/23 07/17/23 23:59 23:59 23:59 Intake Total 200 / 200 Balance 200 / 200 Lab / Micro Data 07/16/23 13:25 07/16/23 13:25 Labs: Laboratory Results - last 24 hr 07/16/23 13:25: WBC 4.1 L, RBC 2.94 L, Hgb 11.0 L, Hct 31.1 L, MCV 105.8 H, MCH 37.4 H, MCHC 35.4, RDW Std Deviation 56.9 H, RDW Coeff of Demond 14.7 H, Plt Count 129 L, MPV 9.8, Immature Gran % (Auto) 0.500, Neut % (Auto) 70.4 H, Lymph % (Auto) 19.1, Chicot % (Auto) 7.8, Eos % (Auto) 1.7, Baso % (Auto) 0.5, Absolute Neuts (auto) 2.9, Absolute Lymphs (auto) 0.78 L, Nucleated RBC % 0, PT 21.2 H, INR 1.8, APTT 48.8 H, Sodium 134 L, Potassium 3.1 L, Chloride 97 L, Carbon Dioxide 29.0, Anion Gap 8, BUN 3 L, Creatinine 0.73, Estim Creat Clear Calc 129.92, Est GFR (MDRD) Af Amer 145, Est GFR (MDRD) Non-Af 120, BUN/Creatinine Ratio 4.1 L, Glucose 137 H, Calcium 8.5, Magnesium 1.9, Iron 118, TIBC 144 L, Iron Saturation 81.9 H, Ferritin 1050 H, Total Bilirubin 11.00 H, Direct Bilirubin 2.88 H, AST 70 H, ALT 30, Alkaline Phosphatase 111, Total Protein 6.8,Albumin 2.4 L, Globulin 4.4 H, Amylase 28, Lipase 42, Vitamin B12 575, Folate 2.80 L, Ethyl Alcohol 6.0, HIV 1&2 Antibody Non-Reactive 07/16/23 13:37: Ammonia 29.0 07/16/23 16:15: Urine Color Yellow, Urine Clarity Clear, Urine pH 7.0, Ur Specific Montgomery 1.005, Urine Protein Negative, Urine Glucose (UA) Normal, UrineKetones Negative, Urine Occult Blood Negative, Urine Nitrite Negative, Urine Bilirubin Negative, Urine Urobilinogen 4 H, Ur Leukocyte Esterase Negative, Urine RBC 0 SEEN, Urine WBC 0 SEEN, Ur Squamous Epith Cells 0 SEEN, Urine Bacteria 0 SEEN, Urine Mucus 0 SEEN 07/16/23 18:40: Hepatitis A IgM Ab Cancelled, Hep Bs Antigen Cancelled, Hep B Core IgM Ab Cancelled, Hepatitis C Ab (EIA) Cancelled, Hep C Ab Comment Cancelled Radiography Diagnostic Testing: Radiology Impression Abdomen/Pelvis CT 07/16/23 13:15 IMPRESSION: 1. Moderate cirrhotic liver morphology with sequela of portal hypertension/splenomegaly and moderate abdominal ascites as above. No evidence of underlying obstruction. Electronically Signed: Moi Pack DO at 15:28 EDT , Physical Exam Narrative GENERAL: cooperative HEENT: Atraumatic; normocephalic EYES; Anicteric, Normal Conjunctiva NECK; supple, normal thyroid, RESPIRATORY: Diminished to auscultation CARDIOVASCULAR: Regular S1 S2, GI: soft, normoactive bowel sounds, distended abdomen : No Renal angle tenderness; EXTREMITIES: edema, no clubbing, MUSCULOSKELETAL: no muscle wasting NEURO: Awake; no lateralizing signs. SKIN: No Rash PSYCH; Flat affect Assessment & Plan Assessment/Plan (1) Alcoholic hepatitis: QUALIFIERS: Ascites presence: unspecified Qualified Code(s): K70.10 - Alcoholic hepatitis without ascites PLAN: Plan Patient is a 53-year-old gentleman admitted with worsening abdominal distention 1. Alcoholic hepatitis with ascites, concern for underlying cirrhosis ? Patient liver function profile consistent with alcoholic hepatitis. Admitted to regular nursing floor. Consultation placed to GI. Friend's notes and recommendations reviewed 2. Chronic alcohol use disorder ? Patient was placed on alcohol withdrawal protocol with CIWA 5. Ascites ? In the setting of suspected cirrhosis patient to undergo diagnostic and therapeutic paracentesis 4. Chronic microcytic anemia ? Possibly related to patient's chronic alcohol use monitoring with daily H&H with plans to transfuse if hemoglobin falls below 7 or patient is deemed to be symptomatic 5. Thrombocytopenia ? Secondary to suspected underlying cirrhosis of the liver . Seizure disorder ? Patient is on Keppra did continue 7. Hypothyroidism - Patient is on levothyroxine home dose continued 8. Hypokalemia ? Corrected protocol repeat labs ordered for a.m. 9. Overweight with BMI of 29.3 ? Weight loss advised 10. DVT prophylaxis ? Avoided the use of chemoprophylaxis given patient's low platelet count Time spent in the patient's overall evaluation,decision-making process, review of diagnostic data, adjustment of management, discussion with other providers, nursing nursing and ancillary staff involved in patient's care documentation, 50Minutes Charges/Coding Visit Charges Inpatient E&M: 86313 [facility] Hosp L3 07/17/23 1115 <Electronically signed by Anselmo Edwards MD> Cosigner Signature (if applicable): CC: ~ Signed [facility] Work Phone: [phone]) [phone] Consult note Author Abel Parr [facility] July 17, 2023 7:22am Note Date/Time July 16, 2023 5: 29pm [facility] Medical Records Department [address] [place] [id number] Consultation - GI 07/16/23 1728 MR#: [id number] Acct: [id number] Name: ARYAN VALLE Rep #:[id number] : 1970 53 From: Abel Parr DO PCP: Dr. Tana Farmer MD Status:A DM IN [id number] HPI Consult Data Date of Consult: 07/16/23 HPI Narrative Reason for Consultation: Jaundice and abdominal distention HPI Narrative: ARYAN VALLE, is a 53 M who presents with worsening abdominal distention. He has a history of alcohol abuse and hypertension/depression presenting with increased abdominal distention, discomfort and decreased urination. It is unknown if he has any history of chronic viral hepatitis or HIV. Patient's beenfollowing with his PCP for the past month and has been diagnosed with alcoholic hepatitis. He previously had refused inpatient evaluation and had not followed up with outpatient testing for his symptoms. He had blood work yesterday to recheck his labs compared to a month ago and he has continued increase of his total bilirubin. He was instructed to come to the emergency room and patient finally agreed. Patient not currently have a GI doctor. Patient states has not been sleeping well has had continued abdominal distention and swelling as well as discomfort. His last drink was last night and it was 1 glass of wine. Patient states prior to that he been drinking a large amount of beer but has cut back on the beer. Patient is unaware of any history of hepatitis. PCP note from yesterday reviewed which shows that patient had been on able to get into GI and they recommended hospital admission with work-up but at that time patient was not amenable. Repeat labs were ordered. Continues to feel unwell. Decreased bowel movements. His labs are consistent with alcoholic hepatitis and he got a CT scan the abdomen pelvis that displayed a moderate cirrhotic liver morphology with sequelaof portal hypertension/splenomegaly and moderate abdominal ascites as above. No evidence of underlying obstruction. [facility] Medical History Abdominal pain Abnormal thyroid function test Alcoholic hepatitis Arthritis Back pain Balance problem Brain atrophy Change in bowel habits Chest pain Decreased urination Diarrhea Erectile dysfunction Fracture, ribs Glaucoma History of alcohol abuse Hyperlipemia Hypertension Knee pain Limb weakness Nausea & vomiting Neuropathy of both feet Obesity (BMI 30.0-34.9) Seizures Swallowing problem Thrombocytopenia Venous insufficiency of both lower extremities Home Medications compress.stocking,knee,reg,lrg #2 ea 09/18/21 [Rx Last Taken Unknown] sildenafil 50 mg tablet 50 mg PO DAILY PRN sexual activity #10 tabs 04/24/22 [Rx Last Taken Unknown] lidocaine 5 % topical patch 1 patch topical DAILY PRN rib pain #30 ea 07/10/22 [Rx Last Taken Unknown] metronidazole 1 % topical gel (Metrogel) 1 applic topical QHS #60 grams 12/11/22[Rx Last Taken Unknown] metronidazole 0.75 % topical gel 1 applic topical BID #45 grams 12/17/22 [Rx Last Taken Unknown] levothyroxine 25 mcg tablet 25 mcg PO DAILY thyroid #90 tabs 03/25/23 [Rx Last Taken Unknown] meclizine 25 mg tablet 25 mg PO BID PRN dizziness #60 tabs 05/01/23 [Rx Last Taken Unknown] lactulose 10 gram/15 mL (15 mL) oral solution 10 g (15 mL) PO BID potassium #750mL 06/21/23 [Rx Last Taken Unknown] gabapentin 600 mg tablet 600 mg PO BID pain #60 tabs 06/26/23 [Rx Last Taken Unknown] ibuprofen 800 mg tablet 800 mg PO Q8 PRN Pain #60 tabs 07/10/23 [Rx Last Taken Unknown] levetiracetam 1,000 mg tablet 1,000 mg PO BID ? #180 tabs 07/10/23 [Rx Last Taken Unknown] Allergy/AdvReac Type Severity Reaction Status Date / Time No Known Allergies Allergy Verified 07/16/23 12:15 Family History Father Alcoholism Heart disease Myocardial infarction Mother Arthritis Sister Depression Grandfather Myocardial infarction Grandfather CVA (cerebral vascular accident) Surgical History History of bilateral hip replacements History of surgical procedure on eye proper using laser History of tonsillectomy Social History Smoking Status: Never smoker Smokeless tobacco user: chewing tobacco Electronic Cigarette Use: not used second hand exposure: Yes alcohol intake: current alcohol intake frequency: 3 or more drinks per day Alcohol type: beer details: 4-6 beers a day substance use type: does not use what type of physical activity do you participate in: walking frequency: daily ROS Review of Systems ROS Unobtainable: other Constitutional Constitutional: Denies fatigue, fever(s), poor appetite, weight gain or weight loss ENT HEENT: Denies mouth lesions Cardiovascular Cardiovascular: Denies abdominal bloating, abdominal edema or abdominal pain Respiratory/Chest Respiratory/Chest: Denies change in mental status, change in phlegm color, chestcongestion or chest tightness Gastrointestinal Gastrointestinal: Denies belching, bloating, change in bowel habits, change in stool character, chewing difficulty, coffee ground emesis, constipation, cramping, diarrhea, dyspepsia, dysphagia, early satiety, excessive flatus, fecalincontinence, heartburn, hematemesis, hematochezia, hemorrhoids, loose stools, melena, nausea, odynophagia, rectal bleeding, tenesmus, vomiting or weight changes Genitourinary Genitourinary: Denies abdominal discomfort, burning urination or itching Musculoskeletal Musculoskeletal: Reports as per HPI; Denies muscle weakness or myalgias Integumentary Integumentary: Denies jaundice Neurologic Neurologic: Denies lack of coordination or weakness Psychiatric Psychiatric: Denies confusion, depression, memory loss, mood swings, paranoia orsuicidal ideation Endocrine Endocrinology: Denies systems reviewed and no addt'l complaints, except as documented Hematologic/Lymphatic Hematologic/Lymphatic: Denies anemia, easy bleeding, easy bruising or lymphadenopathy Allergic/Immunologic Allergic/Immunologic: Denies systems reviewed and no addt'l complaints, except as documented Physical Exam Const alert, oriented x3, no apparent distress, healthy appearing and well nourished General Appearance: cooperative, comfortable, well kempt and well developed Orientation / Consciousness: awake and oriented to person HEENT Head and Scalp: normocephalic and atraumatic Face and Sinus: normal facial exam Mouth: oral and palatal mucosa normal Eyes General Eye: normal appearance of both eyes Neck full ROM Lymph Lymphatic: no lymphadenopathy noted Chest inspection of chest normal Resp normal respiratory effort and no use of accessory muscles Cardio regular rate and regular rhythm GI normal to inspection, nondistended, normoactive bowel sounds, soft to palpation,non-tender, non-distended and no masses Auscultation: normoactive bowel sounds Palpation: soft Percussion: normal to percussion Rectal Exam: visual inspection normal and normal sphincter tone no CVA tenderness Back/Spine no CVA tenderness and normal ROM Extremity normal to inspection Peripheral Pulses: Yes pulses 2+ throughout Skin no rashes or lesions noted General Skin Exam: no breakdown, elasticity normal and turgor normal Neuro oriented x3 Motor Exam: strength 5/5 throughout Psych mental status grossly normal Appearance: grossly normal Attitude: calm Activity / Motor Behavior: appropriate eye contact Speech: normal speech Thought Process: normal thought process Thought Content: normal thought content Attention / Concentration: attention grossly intact Memory / Cognition: memory grossly intact Insight: insight good Judgement: judgement good Lab / Micro Data 07/16/23 13:25 07/16/23 13:25 Labs: Laboratory Results - last 24 hr 07/16/23 13:25: WBC 4.1 L, RBC 2.94 L, Hgb 11.0 L, Hct 31.1 L, MCV 105.8 H, MCH 37.4 H, MCHC 35.4, RDW Std Deviation 56.9 H, RDW Coeff of Demond 14.7 H, Plt Count 129 L, MPV 9.8, Immature Gran % (Auto) 0.500, Neut % (Auto) 70.4 H, Lymph % (Auto) 19.1, Chicot % (Auto) 7.8, Eos % (Auto) 1.7, Baso % (Auto) 0.5, Absolute Neuts (auto) 2.9, Absolute Lymphs (auto) 0.78 L, Nucleated RBC % 0, PT 21.2 H, INR 1.8, APTT 48.8 H, Sodium 134 L, Potassium 3.1 L, Chloride 97 L, Carbon Dioxide 29.0, Anion Gap 8, BUN 3 L, Creatinine 0.73, Estim Creat Clear Calc 129.92, Est GFR (MDRD) Af Amer 145, Est GFR (MDRD) Non-Af 120, BUN/Creatinine Ratio 4.1 L, Glucose 137 H, Calcium 8.5, Total Bilirubin 11.00 H, Direct Bilirubin 2.88 H, AST 70 H, ALT 30, Alkaline Phosphatase 111, Total Protein 6.8,Albumin 2.4 L, Globulin 4.4 H, Lipase 42, Ethyl Alcohol 6.0 07/16/23 13:37: Ammonia 29.0 07/16/23 16:15: Urine Color Yellow, Urine Clarity Clear, Urine pH 7.0, Ur Specific [place] 1.005, Urine Protein Negative, Urine Glucose (UA) Normal, UrineKetones Negative, Urine Occult Blood Negative, Urine Nitrite Negative, Urine Bilirubin Negative, Urine Urobilinogen 4 H, Ur Leukocyte Esterase Negative, Urine RBC 0 SEEN, Urine WBC 0 SEEN, Ur Squamous Epith Cells 0 SEEN, Urine Bacteria 0 SEEN, Urine Mucus 0 SEEN Radiology Impression Abdomen/Pelvis CT 07/16/23 13:15 IMPRESSION: 1. Moderate cirrhotic liver morphology with sequela of portal hypertension/splenomegaly and moderate abdominal ascites as above. No evidence of underlying obstruction. Electronically Signed: Moi Pack DO at 15:28 EDT , Assessment & Plan Assessment/Plan (1) Jaundice: (2) Abdominal ascites: QUALIFIERS: Ascites type: due to alcoholic cirrhosis Qualified Code(s): K70.31 - Alcoholic cirrhosis of liver with ascites (3) Alcoholic hepatitis: QUALIFIERS: Ascites presence: unspecified Qualified Code(s): K70.10 - Alcoholic hepatitis without ascites (4) Cirrhosis: QUALIFIERS: Hepatic cirrhosis type: alcoholic cirrhosis Ascites presence: with ascites Qualified Code(s): K70.31 - Alcoholic cirrhosis of liverwith ascites PLAN: Plan 51-year-old gentleman comes in with worsening abdominal distention and jaundice. He was discovered to have severe alcoholic hepatitis along with new onset ascites. So by definition he has decompensated liver disease with acute on chronic alcoholic hepatitis. His MELD sodium score at this time is 20. His Madrey score for alcoholic hepatitis is 32. His Child-Benavides score is a B. He will need work-up for chronic hepatitis including viral hepatitis B and C serologies, autoimmune hepatitis labs, Ramone disease labs, alpha-1 antitrypsin labs, protein electrophoresis, screening for hemochromatosis, screening for autoimmune hepatitis. He may need liver biopsy in the future. He is still currently drinking at this time. I will start him on Mucomyst and steroid for alcoholic hepatitis with [id number] mg a day. Recheck INR. Charges/Coding Visit Charges Inpatient E&M: 84875 Init Hosp L3 07/17/23 0722 <Electronically signed by Abel Parr DO> Cosigner Signature (if applicable): CC: Dr. Brian Junior DO; Dr. Tana Farmer MD~ Signed [facility] Work Phone: 1(311) 158-316708-25-2023 History and physical note Author Brian Junior [facility] July 17, 2023 12:03am Note Date/Time July 16, 2023 3: 46pm [facility] Medical Records Department [address] [place] [address] H&P Exam - Hospitalist 07/16/23 1541 MR#: [id number] Acct: [id number] Name: ARYAN VALLE Rep #:[id number] : 1970 53 From: Brian lanier DO PCP: Dr. Tana Farmer MD Status:A DM IN Location: MS3 [id number] HPI - General General Date of Admission: 07/16/23 Date of Service: 07/16/23 Chief Complaint: Alcohol hepatitis HPI Narrative ARYAN VALLE is a 53 M with history of alcohol use disorder, seizure disorder and hypothyroidism who presented to the [facility] ED on 07/16/2023 with worsening abdominal distention. Patient seen at bedside. Sitting comfortably in bed, conversing normally, no acute distress. Does appearsomewhat fatigued. Patient states that he has noticed worsening abdominal distention for the last several weeks. Has extensive alcohol use history, used to drink a 30 pack of beer daily for several years and now drinks 1 large glass of wine daily. Stop drinking beer a few months back because he could not tolerate it any longer. Patient denies any previous history of liver issues that he is aware of. Patient lives at home on his own, has been able to take care of everything for himself. He denies any fevers or chills. He denies any abdominal pain at this time. Denies any chest pain or shortness of breath. No other acute concerns. Labs in the ED were notable for total bilirubin of 11, sodium 134, potassium 3.1, creatinine 0.73, albumin 2.4. CT abdomen pelvis with IV contrast showed moderate cirrhotic liver morphology with sequela of portal hypertension, along with moderate abdominal ascites. [facility] Medical History Abdominal pain Abnormal thyroid function test Alcoholic hepatitis Arthritis Back pain Balance problem Brain atrophy Change in bowel habits Chest pain Decreased urination Diarrhea Erectile dysfunction Fracture, ribs Glaucoma History of alcohol abuse Hyperlipemia Hypertension Knee pain Limb weakness Nausea & vomiting Neuropathy of both feet Obesity (BMI 30.0-34.9) Seizures Swallowing problem Thrombocytopenia Venous insufficiency of both lower extremities Home Medications compress.stocking,knee,reg,lrg #2 ea 09/18/21 [Rx Last Taken Unknown] sildenafil 50 mg tablet 50 mg PO DAILY PRN sexual activity #10 tabs 04/24/22 [Rx Last Taken Unknown] lidocaine 5 % topical patch 1 patch topical DAILY PRN rib pain #30 ea 08/18/22 [Rx Last Taken Unknown] metronidazole 1 % topical gel (Metrogel) 1 applic topical QHS #60 grams 12/11/22[Rx Last Taken Unknown] metronidazole 0.75 % topical gel 1 applic topical BID #45 grams 12/17/22 [Rx Last Taken Unknown] levothyroxine 25 mcg tablet 25 mcg PO DAILY thyroid #90 tabs 03/25/23 [Rx Last Taken Unknown] meclizine 25 mg tablet 25 mg PO BID PRN dizziness #60 tabs 05/01/23 [Rx Last Taken Unknown] lactulose 10 gram/15 mL (15 mL) oral solution 10 g (15 mL) PO BID potassium #750mL 06/21/23 [Rx Last Taken Unknown] gabapentin 600 mg tablet 600 mg PO BID pain #60 tabs 06/26/23 [Rx Last Taken Unknown] ibuprofen 800 mg tablet 800 mg PO Q8 PRN Pain #60 tabs 07/10/23 [Rx Last Taken Unknown] levetiracetam 1,000 mg tablet 1,000 mg PO BID ? #180 tabs 07/10/23 [Rx Last Taken Unknown] Allergy/AdvReac Type Severity Reaction Status Date / Time No Known Allergies Allergy Verified 07/16/23 12:15 Family History Father Alcoholism Heart disease Myocardial infarction Mother Arthritis Sister Depression Grandfather Myocardial infarction Grandfather CVA (cerebral vascular accident) Surgical History History of bilateral hip replacements History of surgical procedure on eye proper using laser History of tonsillectomy Social History Smoking Status: Never smoker Smokeless tobacco user: chewing tobacco Electronic Cigarette Use: not used second hand exposure: Yes alcohol intake: current alcohol intake frequency: 3 or more drinks per day Alcohol type: beer details: 4-6 beers a day substance use type: does not use what type of physical activity do you participate in: walking frequency: daily ROS Constitutional Constitutional: Reports change in weight and fatigue; Denies chills or fever(s) Cardiovascular Cardiovascular: Reports edema; Denies chest pain, dyspnea on exertion or orthopnea Respiratory/Chest Respiratory/Chest: Denies cough Gastrointestinal Gastrointestinal: Denies abdominal pain, constipation, diarrhea, nausea or vomiting Vital Signs Vital Signs Vital Signs: 07/16/23 12:13 Temperature 97.1 F L Temperature Source Temporal Pulse Rate 99 Respiratory Rate 18 Blood Pressure 113/80 Blood Pressure Mean 91 Pulse Ox 98 Oxygen Delivery Method Room Air Weight Weight: 99.246 kg Body Mass Index (BMI) 29.7 Physical Exam Const alert and oriented x3 Constitutional Narrative: Pleasant male, sitting comfortably in bed, conversing normally, no acute distress. Does appear mildly fatigued. General Appearance: cooperative and comfortable HEENT normocephalic, head/scalp atraumatic, hearing grossly normal bilaterally, nasal mucous membranes and turbinates normal and moist oral mucous membranes Eyes PERRL, EOMs intact bilaterally and conjunctivae normal Neck full ROM, no lymphadenopathy and supple Lymph Lymphatic: no lymphadenopathy noted Chest inspection of chest normal Resp normal respiratory effort, normal air movement, no use of accessory muscles and clear to auscultation bilaterally Cardio regular rate, regular rhythm, no murmurs and peripheral pulses 2+ throughout GI GI Narrative: Abdomen distended but soft, shifting dullness noted, nontender to palpation. Back/Spine normal ROM Extremity normal to inspection, full ROM and no pedal edema Skin no rashes or lesions noted Psych mental status grossly normal Results Lab / Micro Data 07/16/23 13:25 07/16/23 13:25 Labs: Laboratory Results - last 24 hr 07/16/23 13:25: WBC 4.1 L, RBC 2.94 L, Hgb 11.0 L, Hct 31.1 L, MCV 105.8 H, MCH 37.4 H, MCHC 35.4, RDW Std Deviation 56.9 H, RDW Coeff of Demond 14.7 H, Plt Count 129 L, MPV 9.8, Immature Gran % (Auto) 0.500, Neut % (Auto) 70.4 H, Lymph % (Auto) 19.1, Chicot % (Auto) 7.8, Eos % (Auto) 1.7, Baso % (Auto) 0.5, Absolute Neuts (auto) 2.9, Absolute Lymphs (auto) 0.78 L, Nucleated RBC % 0, PT 21.2 H, INR 1.8, APTT 48.8 H, Sodium 134 L, Potassium 3.1 L, Chloride 97 L, Carbon Dioxide 29.0, Anion Gap 8, BUN 3 L, Creatinine 0.73, Estim Creat Clear Calc 129.92, Est GFR (MDRD) Af Amer 145, Est GFR (MDRD) Non-Af 120, BUN/Creatinine Ratio 4.1 L, Glucose 137 H, Calcium 8.5, Total Bilirubin 11.00 H, Direct Bilirubin 2.88 H, AST 70 H, ALT 30, Alkaline Phosphatase 111, Total Protein 6.8,Albumin 2.4 L, Globulin 4.4 H, Lipase 42, Ethyl Alcohol 6.0 07/16/23 13:37: Ammonia 29.0 Radiology Impression Abdomen/Pelvis CT 07/16/23 13:15 IMPRESSION: 1. Moderate cirrhotic liver morphology with sequela of portal hypertension/splenomegaly and moderate abdominal ascites as above. No evidence of underlying obstruction. Electronically Signed: Moi Pack DO at 15:28 EDT , Assessment & Plan Assessment/Plan (1) Alcoholic hepatitis: QUALIFIERS: Ascites presence: unspecified Qualified Code(s): K70.10 - Alcoholic hepatitis without ascites PLAN: Plan Patient is a 53 M with history of alcohol use disorder, seizure disorder and hypothyroidism who presented to the [facility] ED on 07/16/2023 with worsening abdominal distention. 1. Alcoholic hepatitis with ascites, concern for underlying cirrhosis Labs and imaging on admission as noted above highly suggestive of alcoholic hepatitis. MELD-Na score of 25 on admission. Alcohol use history as noted below. - GI consulted, appreciate recs. Hepatitis panel pending. Interventional radiology consulted for diagnostic and therapeutic paracentesis. Follow MELD scores. 2. Alcohol use disorder Current drinker, drinks 1 large glass of wine daily. Has history of very heavy beer use; used to drink a 30 pack of beer per day for many years. Has not been able to tolerate beer for the last few months, and that he has been drinking wine. Has history of withdrawal symptoms but denies any withdrawal seizures in the past. -We will place on CIWA protocol for now. Low threshold to switch to a phenobarbital taper if needed. 3. Chronic macrocytic anemia -Likely secondary to nutritional deficiencies in the setting of his chronic alcohol use. Hemoglobin 11.0 on admit, baseline appears to be around 11-12. MCV 105. Will check vitamin B12 and folate levels. We will also check for irondeficiency. 4. Thrombocytopenia ? Suspect secondary to underlying cirrhosis. Platelets 129 on admission. Monitor. 5. Hypokalemia ? Likely secondary to nutritional deficiency in setting of alcohol use. K of 3.1 on admit. Replete as needed. Check Mg level as well and replete as needed. 6. Seizure disorder ? Continue home Keppra. 7. Hypothyroidism ? Continue home Synthroid. ED prophylaxis: Heparin subcu CODE STATUS: Full code, verified Expected disposition: Home, TBD Total clinical time spent by myself addressing the patient's medical issues, reviewing all the data, and collaborating with patient's care team: 55 minutes. Charges/Coding Visit Charges Inpatient E&M: 66786 Init Hosp L2 07/17/23 0003 <Electronically signed by Brian Junior DO> Cosigner Signature (if applicable): CC: Dr. Brian Junior DO; Dr. Tana Farmer MD~ Signed [facility] Work Phone: [phone]) 417-405308-24-2023 Discharge summary Author Caridad [facility] July 16, 2023 4:11pm Note Date/Time July 16, 2023 4: 11pm [facility] Medical Records Department [address] [place] [address] Emergency Department Summary 07/16/23 MR#: [id number] Acct: [id number] Name: ARYAN VALLE Rep #:[id number] : 1970 53 From: Caridad Wilhelm PCP: Dr. Tana Farmer MD Status:A DM IN Location: [facility] [id number] HPI HPI - GI History of Present Illness Chief Complaint: Abd Pain Narrative Narrative: Patient is a 53-year-old male with history of alcohol abuse and hypertension/depression presenting with increased abdominal distention, discomfort and decreased urination. Patient's been following with his PCP for the past month and has been diagnosed with alcoholic hepatitis. He previously had refused inpatient evaluation and had not followed up with outpatient testingfor his symptoms. He had blood work yesterday to recheck his labs compared to amonth ago and he has continued increase of his total bilirubin. He was instructed to come to the emergency room and patient finally agreed. Patient not currently have a GI doctor. Patient states has not been sleeping well has had continued abdominal distention and swelling as well as discomfort. His lastdrink was last night and it was 1 glass of wine. Patient states prior to that he been drinking a large amount of beer but has cut back on the beer. Patient isunaware of any history of hepatitis. PCP note from yesterday reviewed which shows that patient had been on able to get into GI and they recommended hospital admission with work-up but at that time patient was not amenable. Repeat labs were ordered. Continues to feel unwell. Decreased bowel movements. [facility] Medical History Abdominal pain Abnormal thyroid function test Alcoholic hepatitis Arthritis Back pain Balance problem Brain atrophy Change in bowel habits Chest pain Decreased urination Diarrhea Erectile dysfunction Fracture, ribs Glaucoma History of alcohol abuse Hyperlipemia Hypertension Knee pain Limb weakness Nausea & vomiting Neuropathy of both feet Obesity (BMI 30.0-34.9) Seizures Swallowing problem Thrombocytopenia Venous insufficiency of both lower extremities Home Medications compress.stocking,knee,reg,lrg #2 ea 09/18/21 [Rx Last Taken Unknown] sildenafil 50 mg tablet 50 mg PO DAILY PRN sexual activity #10 tabs 04/24/22 [Rx Last Taken Unknown] lidocaine 5 % topical patch 1 patch topical DAILY PRN rib pain #30 ea 07/10/22 [Rx Last Taken Unknown] metronidazole 1 % topical gel (Metrogel) 1 applic topical QHS #60 grams 12/11/22[Rx Last Taken Unknown] metronidazole 0.75 % topical gel 1 applic topical BID #45 grams 12/17/22 [Rx Last Taken Unknown] levothyroxine 25 mcg tablet 25 mcg PO DAILY thyroid #90 tabs 03/25/23 [Rx Last Taken Unknown] meclizine 25 mg tablet 25 mg PO BID PRN dizziness #60 tabs 05/01/23 [Rx Last Taken Unknown] lactulose 10 gram/15 mL (15 mL) oral solution 10 g (15 mL) PO BID potassium #750mL 06/21/23 [Rx Last Taken Unknown] gabapentin 600 mg tablet 600 mg PO BID pain #60 tabs 06/26/23 [Rx Last Taken Unknown] ibuprofen 800 mg tablet 800 mg PO Q8 PRN Pain #60 tabs 07/10/23 [Rx Last Taken Unknown] levetiracetam 1,000 mg tablet 1,000 mg PO BID ? #180 tabs 07/10/23 [Rx Last Taken Unknown] Allergy/AdvReac Type Severity Reaction Status Date / Time No Known Allergies Allergy Verified 07/16/23 12:15 Family History Father Alcoholism Heart disease Myocardial infarction Mother Arthritis Sister Depression Grandfather Myocardial infarction Grandfather CVA (cerebral vascular accident) Surgical History History of bilateral hip replacements History of surgical procedure on eye proper using laser History of tonsillectomy Social History Smoking Status: Never smoker Smokeless tobacco user: chewing tobacco Electronic Cigarette Use: not used second hand exposure: Yes alcohol intake: current alcohol intake frequency: 3 or more drinks per day Alcohol type: beer details: 4-6 beers a day substance use type: does not use what type of physical activity do you participate in: walking frequency: daily ROS ROS ED Constitutional Constitutional ED: Reports other Details: Fatigue, weight gain ; Denies chills or fever(s) ENT ENT ED: Denies sore throat Cardiovascular Cardiovascular: Denies chest pain Respiratory/Chest Respiratory/Chest: Reports dyspnea; Denies cough Gastrointestinal Gastrointestinal: Reports abdominal pain, nausea and vomiting; Denies constipation, diarrhea or melena Genitourinary Genitourinary ED: Reports other Details: Decreased urination ; Denies dysuria Musculoskeletal Musculoskeletal: Denies arthralgias or myalgias Integumentary Denies rash Neurologic Neurologic: Reports weakness; Denies headache(s) Psychiatric Psychiatric: Denies anxiety Hematologic/Lymphatic Hematologic/Lymphatic: Denies easy bleeding EXAM Physical Exam Const Vital Signs: 07/16/23 12:13 Temperature 97.1 F L Temperature Source Temporal Pulse Rate 99 Respiratory Rate 18 Blood Pressure 113/80 Blood Pressure Mean 91 Pulse Ox 98 Oxygen Delivery Method Room Air Positive well developed Constitutional Narrative: Chronically ill-appearing General Appearance ED: well developed HEENT Reports moist mucous membranes Eyes PERRL General Eye ED: Yes scleral icterus Neck supple and no JVD Resp normal respiratory effort and clear to auscultation bilaterally Cardio regular rate, regular rhythm and no murmurs GI GI Narrative: Mild diffuse abdominal tenderness. Abdominal distention present. Positive fluid wave. No peritoneal signs Extremity full ROM General Extremety ED: Negative for edema General Extremity: Negative for edema Neuro moves all extremities Sensorium / Orientation: alert Motor Exam: Negative for general weakness Psych mental status grossly normal and thought process normal Skin no wounds Skin Narrative: Mild erythema around the umbilicus General Skin Exam: jaundice MDM MDM MDM Narrative Medical decision making narrative: Evaluated for continued abdominal distention which is consistent with ascites onphysical exam. He is a positive fluid wave. He is jaundiced on exam. Has a history of alcohol abuse and alcoholic hepatitis. I suspect he is progressing in this. He is now amenable to work-up. Differential diagnosis includes acute cirrhosis, ascites, obstructive jaundice, cholecystitis, pancreatitis and SBP. Patient does not have fever, leukocytosis or other findings distant for an acuteinfectious process. Lab work rechecked today which continue to show mild leukopenia, mild anemia, elevated indirect bilirubin level and an elevated PT/PTT. His ammonia level is normal and his alcohol level is normal today. These findings are consistent with alcoholic hepatitis. CT of the abdomen and pelvis does show moderate cirrhotic liver morphology with sequela of portal hypertension/spinal megaly and moderate abdominal ascites. Case is discussed with RAZIA Pereyra, who is agreeable with inpatient work-up for this. Patient tiarra hemodynamically stable in the ER. He is not tachycardic or hypertensive and has no other findings consistent with acute alcohol withdrawal at this time. Case is discussed admitting physician, Dr. Junior, who accepts the patient. Lab Data Attestation: I reviewed the patient's lab results. Labs: Laboratory Results - last 24 hr 07/16/23 07/16/23 13:25 13:37 WBC 4.1 L RBC 2.94 L Hgb 11.0 L Hct 31.1 L MCV 105.8 H MCH 37.4 H MCHC 35.4 RDW Std Deviation 56.9 H RDW Coeff of Demond 14.7 H Plt Count 129 L MPV 9.8 Immature Gran % (Auto) 0.500 Neut % (Auto) 70.4 H Lymph % (Auto) 19.1 Chicot % (Auto) 7.8 Eos % (Auto) 1.7 Baso % (Auto) 0.5 Absolute Neuts (auto) 2.9 Absolute Lymphs (auto) 0.78 L Nucleated RBC % 0 PT 21.2 H INR 1.8 APTT 48.8 H Sodium 134 L Potassium 3.1 L Chloride 97 L Carbon Dioxide 29.0 Anion Gap 8 BUN 3 L Creatinine 0.73 Estim Creat Clear Calc 129.92 Est GFR (MDRD) Af Amer 145 Est GFR (MDRD) Non-Af 120 BUN/Creatinine Ratio 4.1 L Glucose 137 H Calcium 8.5 Total Bilirubin 11.00 H Direct Bilirubin 2.88 H AST 70 H ALT 30 Alkaline Phosphatase 111 Ammonia 29.0 Total Protein 6.8 Albumin 2.4 L Globulin 4.4 H Lipase 42 Ethyl Alcohol 6.0 Radiography Diagnostic Testing: Clinical Impression(s) from Imaging Studies Abdomen/Pelvis CT 07/16/23 13:15 IMPRESSION: 1. Moderate cirrhotic liver morphology with sequela of portal hypertension/splenomegaly and moderate abdominal ascites as above. No evidence of underlying obstruction. Electronically Signed: Moi Pack DO at 15:28 EDT , Discharge Plan Triage Chief Complaint: Abd Pain ED Provider: Caridad Go Dx/Rx/DC Orders Clinical Impression: Abdominal ascites, Alcoholic hepatitis, Jaundice Primary Care Provider: Tana Farmer Disposition Disposition: Acute Care Hospital [facility] What to do if you have Problems For any increased pain, shortness of breath, bleeding, nausea or vomiting, chestpain, or any unexpected problems, contact your Primary Care Provider. Call [facility] ([phone]) or report to the closest Emergency Room. Call 911 if necessary. 07/16/23 1611 <Electronically signed by Caridad Go DO> Cosigner Signature (if applicable): CC: Dr. Tana Farmer MD ~ Signed [facility] Work Phone: 1(256) 401-304908-24-2023 Discharge summary Author Caridad Go [facility] July 16, 2023 4:11pm Note Date/Time July 16, 2023 4: 11pm [facility] Medical Records Department [address] [place] [address] Emergency Department Summary 07/16/23 MR#: [id number] Acct: [id number] Name: ARYAN VALLE Rep #:[id number] : 1970 53 From: Caridad Wilhelm PCP: Dr. Tana Farmer MD Status:A DM IN Location: [facility] [id number] HPI HPI - GI History of Present Illness Chief Complaint: Abd Pain Narrative Narrative: Patient is a 53-year-old male with history of alcohol abuse and hypertension/depression presenting with increased abdominal distention, discomfort and decreased urination. Patient's been following with his PCP for the past month and has been diagnosed with alcoholic hepatitis. He previously had refused inpatient evaluation and had not followed up with outpatient testingfor his symptoms. He had blood work yesterday to recheck his labs compared to amonth ago and he has continued increase of his total bilirubin. He was instructed to come to the emergency room and patient finally agreed. Patient not currently have a GI doctor. Patient states has not been sleeping well has had continued abdominal distention and swelling as well as discomfort. His lastdrink was last night and it was 1 glass of wine. Patient states prior to that he been drinking a large amount of beer but has cut back on the beer. Patient isunaware of any history of hepatitis. PCP note from yesterday reviewed which shows that patient had been on able to get into GI and they recommended hospital admission with work-up but at that time patient was not amenable. Repeat labs were ordered. Continues to feel unwell. Decreased bowel movements. [facility] Medical History Abdominal pain Abnormal thyroid function test Alcoholic hepatitis Arthritis Back pain Balance problem Brain atrophy Change in bowel habits Chest pain Decreased urination Diarrhea Erectile dysfunction Fracture, ribs Glaucoma History of alcohol abuse Hyperlipemia Hypertension Knee pain Limb weakness Nausea & vomiting Neuropathy of both feet Obesity (BMI 30.0-34.9) Seizures Swallowing problem Thrombocytopenia Venous insufficiency of both lower extremities Home Medications compress.stocking,knee,reg,lrg #2 ea 09/18/21 [Rx Last Taken Unknown] sildenafil 50 mg tablet 50 mg PO DAILY PRN sexual activity #10 tabs 04/24/22 [Rx Last Taken Unknown] lidocaine 5 % topical patch 1 patch topical DAILY PRN rib pain #30 ea 07/10/22 [Rx Last Taken Unknown] metronidazole 1 % topical gel (Metrogel) 1 applic topical QHS #60 grams 12/11/22[Rx Last Taken Unknown] metronidazole 0.75 % topical gel 1 applic topical BID #45 grams 12/17/22 [Rx Last Taken Unknown] levothyroxine 25 mcg tablet 25 mcg PO DAILY thyroid #90 tabs 03/25/23 [Rx Last Taken Unknown] meclizine 25 mg tablet 25 mg PO BID PRN dizziness #60 tabs 05/01/23 [Rx Last Taken Unknown] lactulose 10 gram/15 mL (15 mL) oral solution 10 g (15 mL) PO BID potassium #750mL 06/21/23 [Rx Last Taken Unknown] gabapentin 600 mg tablet 600 mg PO BID pain #60 tabs 06/26/23 [Rx Last Taken Unknown] ibuprofen 800 mg tablet 800 mg PO Q8 PRN Pain #60 tabs 07/10/23 [Rx Last Taken Unknown] levetiracetam 1,000 mg tablet 1,000 mg PO BID ? #180 tabs 07/10/23 [Rx Last Taken Unknown] Allergy/AdvReac Type Severity Reaction Status Date / Time No Known Allergies Allergy Verified 07/16/23 12:15 Family History Father Alcoholism Heart disease Myocardial infarction Mother Arthritis Sister Depression Grandfather Myocardial infarction Grandfather CVA (cerebral vascular accident) Surgical History History of bilateral hip replacements History of surgical procedure on eye proper using laser History of tonsillectomy Social History Smoking Status: Never smoker Smokeless tobacco user: chewing tobacco Electronic Cigarette Use: not used second hand exposure: Yes alcohol intake: current alcohol intake frequency: 3 or more drinks per day Alcohol type: beer details: 4-6 beers a day substance use type: does not use what type of physical activity do you participate in: walking frequency: daily ROS ROS ED Constitutional Constitutional ED: Reports other Details: Fatigue, weight gain ; Denies chills or fever(s) ENT ENT ED: Denies sore throat Cardiovascular Cardiovascular: Denies chest pain Respiratory/Chest Respiratory/Chest: Reports dyspnea; Denies cough Gastrointestinal Gastrointestinal: Reports abdominal pain, nausea and vomiting; Denies constipation, diarrhea or melena Genitourinary Genitourinary ED: Reports other Details: Decreased urination ; Denies dysuria Musculoskeletal Musculoskeletal: Denies arthralgias or myalgias Integumentary Denies rash Neurologic Neurologic: Reports weakness; Denies headache(s) Psychiatric Psychiatric: Denies anxiety Hematologic/Lymphatic Hematologic/Lymphatic: Denies easy bleeding EXAM Physical Exam Const Vital Signs: 07/16/23 12:13 Temperature 97.1 F L Temperature Source Temporal Pulse Rate 99 Respiratory Rate 18 Blood Pressure 113/80 Blood Pressure Mean 91 Pulse Ox 98 Oxygen Delivery Method Room Air Positive well developed Constitutional Narrative: Chronically ill-appearing General Appearance ED: well developed HEENT Reports moist mucous membranes Eyes PERRL General Eye ED: Yes scleral icterus Neck supple and no JVD Resp normal respiratory effort and clear to auscultation bilaterally Cardio regular rate, regular rhythm and no murmurs GI GI Narrative: Mild diffuse abdominal tenderness. Abdominal distention present. Positive fluid wave. No peritoneal signs Extremity full ROM General Extremety ED: Negative for edema General Extremity: Negative for edema Neuro moves all extremities Sensorium / Orientation: alert Motor Exam: Negative for general weakness Psych mental status grossly normal and thought process normal Skin no wounds Skin Narrative: Mild erythema around the umbilicus General Skin Exam: jaundice MDM MDM MDM Narrative Medical decision making narrative: Evaluated for continued abdominal distention which is consistent with ascites onphysical exam. He is a positive fluid wave. He is jaundiced on exam. Has a history of alcohol abuse and alcoholic hepatitis. I suspect he is progressing in this. He is now amenable to work-up. Differential diagnosis includes acute cirrhosis, ascites, obstructive jaundice, cholecystitis, pancreatitis and SBP. Patient does not have fever, leukocytosis or other findings distant for an acuteinfectious process. Lab work rechecked today which continue to show mild leukopenia, mild anemia, elevated indirect bilirubin level and an elevated PT/PTT. His ammonia level is normal and his alcohol level is normal today. These findings are consistent with alcoholic hepatitis. CT of the abdomen and pelvis does show moderate cirrhotic liver morphology with sequela of portal hypertension/spinal megaly and moderate abdominal ascites. Case is discussed with Dr. Parr, RAZIA, who is agreeable with inpatient work-up for this. Patient tiarra hemodynamically stable in the ER. He is not tachycardic or hypertensive and has no other findings consistent with acute alcohol withdrawal at this time. Case is discussed admitting physician, Dr. Junior, who accepts the patient. Lab Data Attestation: I reviewed the patient's lab results. Labs: Laboratory Results - last 24 hr 07/16/23 07/16/23 13:25 13:37 WBC 4.1 L RBC 2.94 L Hgb 11.0 L Hct 31.1 L MCV 105.8 H MCH 37.4 H MCHC 35.4 RDW Std Deviation 56.9 H RDW Coeff of Demond 14.7 H Plt Count 129 L MPV 9.8 Immature Gran % (Auto) 0.500 Neut % (Auto) 70.4 H Lymph % (Auto) 19.1 [place] % (Auto) 7.8 Eos % (Auto) 1.7 Baso % (Auto) 0.5 Absolute Neuts (auto) 2.9 Absolute Lymphs (auto) 0.78 L Nucleated RBC % 0 PT 21.2 H INR 1.8 APTT 48.8 H Sodium 134 L Potassium 3.1 L Chloride 97 L Carbon Dioxide 29.0 Anion Gap 8 BUN 3 L Creatinine 0.73 Estim Creat Clear Calc 129.92 Est GFR (MDRD) Af Amer 145 Est GFR (MDRD) Non-Af 120 BUN/Creatinine Ratio 4.1 L Glucose 137 H Calcium 8.5 Total Bilirubin 11.00 H Direct Bilirubin 2.88 H AST 70 H ALT 30 Alkaline Phosphatase 111 Ammonia 29.0 Total Protein 6.8 Albumin 2.4 L Globulin 4.4 H Lipase 42 Ethyl Alcohol 6.0 Radiography Diagnostic Testing: Clinical Impression(s) from Imaging Studies Abdomen/Pelvis CT 07/16/23 13:15 IMPRESSION: 1. Moderate cirrhotic liver morphology with sequela of portal hypertension/splenomegaly and moderate abdominal ascites as above. No evidence of underlying obstruction. Electronically Signed: Moi Pack DO at 15:28 EDT , Discharge Plan Triage Chief Complaint: Abd Pain ED Provider: Caridad Go Dx/Rx/DC Orders Clinical Impression: Abdominal ascites, Alcoholic hepatitis, Jaundice Primary Care Provider: Tana Farmer Disposition Disposition: [facility] What to do if you have Problems For any increased pain, shortness of breath, bleeding, nausea or vomiting, chestpain, or any unexpected problems, contact your Primary Care Provider. Call [facility] ([phone]) or report to the closest Emergency Room. Call 911 if necessary. 07/16/23 1611 <Electronically signed by Caridad Go DO> Cosigner Signature (if applicable): CC: Dr. Tana Farmer MD ~ Signed [facility] Work Phone: [phone]) 709-437107-20-2023 History of Present illness Narrative* Danni Caceres PA - 06/11/2023 12:15 PM EDT This note was created using Opeeplriter. Subjective Aryan Valle is a 53 year old male. HPI 81-year-old male presents for right eye irritation x3 days. Patient states that he feels like something is in his eye. He does wear glasses. He states that he had bifocal contacts in his eyes about a year ago. He remembers removing the left one, but is unsure if he ever remove the right one. Hedenies any vision changes. He has been wearing his glasses, but did not bring them with him today. He denies any drainage from the eye. He states it is just red and irritated. No injury. No headache,dizziness. No other complaints. PAST MEDICAL HISTORY Diagnosis Date ETOH abuse 12 beers per day Seizures (HCC) controlled on dilantin Vertigo uses mecliznie daily PAST SURGICAL HISTORY Procedure Laterality Date PAST SURGICAL HISTORY OF 2007 total hip replacement TONSILLECTOMY HX remote ALLERGIES Patient has no known allergies. MEDICATIONS gabapentin (NEURONTIN) 600 mg tablet Take 1 tablet by mouth every 12 hours 6am/6pm. levothyroxine (SYNTHROID) 25 mcg tablet Take 1 tablet by mouth every afternoon. levETIRAcetam (KEPPRA) 1,000 mg tablet TAKE 1 TABLET orally twice a day] ibuprofen (MOTRIN) [address] (PROTONIX) 40 mg tablet meclizine 25 mg Tab Take 1 tablet by mouth every 6 hours as needed (for dizziness.). acetaminophen 325 mg tablet Take 1-2 tablets by mouth every 4 hours as needed for Pain. multivitamin tablet Take 1 tablet by mouth once daily. ciprofloxacin HCl (CILOXAN) 0.3 % ophthalmic solution Use 1-2 drops inside right lower eyelid(s) every 2 hours while awake for 2 days, then 1-2 drops every 4 hours for next 5 days. carvedilol (COREG) 25 mg tablet levETIRAcetam (KEPPRA) 750 mg tablet ramipril (ALTACE) 10 mg capsule (Patient not taking: Reported on 06/11/2023) Bimatoprost (LUMIGAN) 0.01 % Drop 1 Drop. brinzolamide (AZOPT) 1 % ophthalmic suspension 1 Drop three times daily. Brimonidine-Timolol (COMBIGAN) 0.2-0.5 % Drop Use in both eyes. phenytoin SR (DILANTIN) 100 mg ER capsule Take 1 capsule by mouth three times daily. FAMILY HISTORY Problem Relation Age of Onset Arthritis Father Arthritis Brother Social History Tobacco Use Smoking status: Never Substance Use Topics Alcohol use: Yes Comment: daily, 12 beer a day, history of rehab Drug use: No Review of Systems Constitutional: Negative for chills and fever. HENT: Negative for congestion and sore throat. Eyes: Positive for photophobia, pain, redness and itching. Negative for discharge and visual disturbance. Respiratory: Negative for cough and shortness of breath. Gastrointestinal: Negative for diarrhea and vomiting. Objective BP 138/88 Pulse 97 Temp 36.9 C (98.5 F) (Temporal) Resp 18 Wt 96.1 kg (211 lb 12.8 oz) SpO2 97% Physical Exam Vitals and nursing note reviewed. Constitutional: General: He is not in acute distress. Appearance: Normal appearance. He is not toxic-appearing. HENT: Nose: Nose normal. Mouth/Throat: Mouth: Mucous membranes are moist. Eyes: General: Vision grossly intact. Right eye: Foreign body (+ Contact in place) present. Extraocular Movements: Extraocular movements intact. Conjunctiva/sclera: Right eye: Right conjunctiva is injected. Pupils: Pupils are equal, round, and reactive to light. Right eye: Corneal abrasion and fluorescein uptake present. Comments: Patient has contact in place in right eye. States it has been in place for 1 year and he was unaware of this. Contact removed. Fluorescein exam reveals corneal abrasion. PERRLA. EOMI. Vision grossly intact. No glasses today, so unable to do visual acuity. No pain with eye movement. No periorbital swelling or redness. Cardiovascular: Rate and Rhythm: Normal rate and regular rhythm. Pulmonary: Effort: Pulmonary effort is normal. Breath sounds: Normal breath sounds. Skin: General: Skin is warm and dry. Neurological: Mental Status: He is alert. Assessment and Plan ASSESSMENT/PLAN: 1. Abrasion of right cornea, initial encounter - ICD9: 918.1, ICD10: S05.01XA -Patient has had contact in place for a year. Contact was removed. He is not supposed to be wearingthem anymore. He does have glasses at home. -Rx for ciprofloxacin drops. -We will schedule the patient with ophthalmology. He states he has not seen his eye doctor for overa year and switched insurance, so unable to see his usual eye doctor. -Advised if he develops vision changes, swelling, pain with eye movement, go to ER immediately. - CONSULT TO OPHTHALMOLOGY Diagnosis and treatment plan were discussed and questions were answered to the patient's satisfaction. Pt acknowledged understanding of concepts and follow up plan. Specific signs and symptoms that would indicate the need for higher level of care were discussed in detail warranting prompt ER evaluation. MEGHNA Carbajal [facility] Miscellaneous Notes* Telephone Encounter - Rika Rey LPN - 05/29/2023 3:29 PM EDT Patient returned call. Will check with insurance for in-network provider. Rika Rey LPN * Telephone Encounter - Aniyah Jacobs LPN - 05/29/2023 3:18 PM EDT Attempted to contact patient to notify him that his insurance is out of network and this may resultin out of pocket cost. No response. Vm Full. Aniyah Jacobs LPN [facility]* Diagnosis Onset Date Resolution Status Fracture of fifth metatarsal bone of right foot acute Hypertension chronic Peripheral neuropathy chroni c Venous insufficiency of both lower extremities chronic Abnormal thyroid function test chronic Chest pain chronic Hypertension chronic Obesity (BMI 30.0-34.9) program review director marianna Seizures [facility] Work Phone: Evaluation note* Diagnosis Abrasion of right cornea, initial encounter- Primary [facility] Diagnosis Onset Date Resolution Status Change in bowel habits acute Nausea & vomiting acute Swallowing problem acute Abdominal pain chronic Alcoholic hepatitis chronic Erectile dysfunction [facility] Work Phone: Evaluation note* Diagnosis Onset Date Resolution Status Change in bowel habits acute Nausea & vomiting acute Swallowing problem acute Abdominal pain chronic Alcoholic hepatitis chronic Erectile dysfunction chronic Change in bowel habits acute Decreased urination acute Abdominal pain chronic Alcoholic hepatitis chronic Abdominal ascites acute Jaundice acute Alcoholic hepatitis [facility] Work Phone: Evaluation note* Diagnosis Onset Date Resolution Status Change in bowel habits acute Nausea & vomiting acute Swallowing problem acute Abdominal pain chronic Alcoholic hepatitis chronic Erectile dysfunction chronic Change in bowel habits acute Decreased urination acute Abdominal pain chronic Alcoholic hepatitis chronic Abdominal ascites acute Cirrhosis acute Jaundice acute Alcoholic hepatitis [facility] Work Phone: Evaluation note* Diagnosis Onset Date Resolution Status Change in bowel habits acute Nausea & vomiting acute Swallowing problem acute Abdominal pain chronic Alcoholic hepatitis chronic Erectile dysfunction chronic Change in bowel habits acute Decreased urination acute Abdominal pain chronic Alcoholic hepatitis chronic Abdominal ascites acute Cirrhosis acute Jaundice acute Alcoholic hepatitis chronic Abdominal ascites acute Cirrhosis acute Hypothyroidism acute Hypertension chronic Peripheral neuropathy chroni c [facility] Work Phone: Evaluation note* Diagnosis Onset Date Resolution Status Change in bowel habits acute Nausea & vomiting acute Swallowing problem acute Abdominal pain chronic Alcoholic hepatitis chronic Erectile dysfunction chronic Change in bowel habits acute Decreased urination acute Abdominal pain chronic Alcoholic hepatitis chronic Abdominal ascites acute Cirrhosis acute Jaundice acute Alcoholic hepatitis chronic Abdominal ascites acute Cirrhosis acute Hypothyroidism acute Hypertension chronic Peripheral neuropathy chroni c Abdominal ascites acute Alcoholic hepatitis chronic Dermatitis chronic History of alcohol abuse chr onic [facility] Work Phone: Evaluation note* Diagnosis Onset Date Resolution Status Alcoholic hepatitis chronic Dermatitis chronic Elevated CA 19-9 level chron ic Hypertension chronic Hypothyroidism chronic Peripheral neuropathy chroni c [facility] Work Phone: Evaluation note* Diagnosis Skin infection- Primary Unspecified local infection of skin and subcutaneous tissue Pain Generalized pain [facility]* Diagnosis Left inguinal pain- Primary Abdominal pain, left lower quadrant [facility]* Diagnosis Decompensated cirrhosis (HCC)- Primary Transaminitis Nonspecific elevation of levels of transaminase or lactic acid dehydrogenase (LDH) Ascites Decompensated cirrhosis (HCC) ETOH abuse Nondependent alcohol abuse, unspecified drinking behavior ETOH abuse Nondependent alcohol abuse, unspecified drinking behavior documented in this encounter [facility] note* Diagnosis Procedure not carried out- Primary Procedure not carried out for other reasons documented in this encounter [facility] Plan of care note* Visit Details Visit Type -DIRECTOR WORK EVAL Discipline -Smoke Chaser Problems Problem Description Start Date Status Goals Interve ntions [facility] Usp Care Needs Disciplines: [facility] 05/05/2025 Resolved on 05/05/2025 1 goal linked to scheduled/documen vivian intervention 1 goal intervention scheduled/document ed in this visit DIRECTOR WORK General Evaluation and Treatment Disciplines: [facility] 05/05/2025 Resolved on 05/05/2025 1 goal linked to scheduled/documen vivian intervention 1 goal intervention scheduled/document ed in this visit DIRECTOR WORK Social/Emotional Support Disciplines: [facility] 05/05/2025 Resolved on 05/05/2025 1 goal linked to scheduled/documen vivian intervention 1 goal intervention scheduled/document ed in this visit DIRECTOR WORK Caregiver Willingness Disciplines: [facility] 05/05/2025 Resolved on 05/05/2025 1 goal linked to scheduled/documen vivian intervention 1 goal intervention scheduled/document ed in this visit DIRECTOR WORK Referral Disciplines: Skilled Services 05/05/2025 Resolved on 05/05/2025 1 goal linked to scheduled/documen vivian intervention 1 goal intervention scheduled/document ed in this visit Goals Goal Associated Problem Outcome Goal Met? 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 DIRECTOR WORK Light Fixture Servicer Care Needs Completed Yes Complete General Evaluation and Treatment Description: patient and caregiver will demonstrate compliance with and participation in the plan of treatment. DIRECTOR WORK General Evaluation and Treatment Completed Yes Provide Social/Emotional Support Description: patient will have adequate social emotional support as evidence by consistent contact with family and friends. DIRECTOR WORK Social/Emotional Support Completed Yes Determine Caregiver Willingness to Care for Patient Description: Caregiver will demonstrate willingness and ability to adequately care for the patient as evidence by providing a safe home environment and providing assistance with all ADL/IADL needs. DIRECTOR WORK Caregiver Willingness Completed Yes Patient will be referred to additional discipline as needed DIRECTOR WORK Referral Completed Yes Interventions Intervention Associated Problem/Goal Status Variance Visit Notes termite control technician care planning Problem:DIRECTOR WORK Usp Care Needs Goal:Patients Usp Care Needs Will Be Met Completed Patients termite control technician care needs will be met by information provided and COVER MAKER working with Victim's Assistance services for the patient. DIRECTOR WORK Assessment Problem:DIRECTOR WORK General Evaluation and Treatment Goal:Complete General Evaluation and Treatment Completed patient and his mother fully participated in plan of treatment. Adequate social/emotional support Problem:DIRECTOR WORK Social/Emotional Support Goal:Provide Social/Emotional Support Completed patient has adequate natural supports and COVER MAKER coordinating with Victim's Assistance services for the patient. Caregiver Instruction Problem:DIRECTOR WORK Caregiver Willingness Goal:Determine Caregiver Willingness to Care for Patient Completed Caregiver demonstrates willingness and demonstrates ability to assitst in patients ADLs/IADLs needs. DIRECTOR WORK evaluation and treatment Description: DIRECTOR WORK Referral eval and treat for Community Resources. Problem:DIRECTOR WORK Referral Goal:Patient will be referred to additional discipline as needed Completed documented in this encounter [facility] Plan of care note* Visit Details Visit Type -SN SOC Discipline -Usp Problems Problem Description Start Date Status Goals Interve ntions Medication Education Disciplines: Skilled Services 05/05/2025 Active 1 goal linked to scheduled/document ed intervention 1 goal intervention scheduled/document ed in this visit Sepsis Disciplines: Skilled Services 05/05/2025 Active 1 goal linked to scheduled/document ed intervention 1 goal intervention scheduled/document ed in this visit Physician Specific Parameters Disciplines: Skilled Services 05/05/2025 Active 1 goal linked to scheduled/document ed intervention 2 goal interventions scheduled/document ed in this visit Risk for Falls Disciplines: Skilled Services 05/05/2025 Active 1 goal linked to scheduled/document ed intervention 1 goal intervention scheduled/document ed in this visit Pain Disciplines: Skilled Services 05/05/2025 Active 1 goal linked to scheduled/document ed intervention 1 goal intervention scheduled/document ed in this visit Nutrition/Hydrati on Disciplines: Skilled Services 05/05/2025 Active 1 goal linked to scheduled/document ed intervention 1 goal intervention scheduled/document ed in this visit High Risk Medications Disciplines: Skilled Services 05/05/2025 Active 1 goal linked to scheduled/document ed intervention 1 goal intervention scheduled/document ed in this visit Discharge Disciplines: Skilled Services 05/05/2025 Active 1 goal linked to scheduled/document ed intervention 1 goal intervention scheduled/document ed in this visit SN Other significant comorbidities/dis ease process Disciplines: SN 05/05/2025 Active 1 goal linked to scheduled/document ed intervention 1 goal intervention scheduled/document ed in this visit SN Learning Assessment Disciplines: SN 05/05/2025 Active 1 goal linked to scheduled/document ed intervention 1 goal intervention scheduled/document ed in this visit Goals Goal Associated Problem Outcome Goal Met? Visit Notes Patient/caregiver will demonstrate ability to obtain, store, identify and administer ordered medications, keep accurate medication list in home, and adhere to medication schedule Description: Patient/caregiver will demonstrate ability to obtain, store, identify and administer ordered medications, keep accurate medication list in home, and adhere to medication schedule by 06/09/25. Medication Education No Patient/caregiver will be able to identify and report symptoms of sepsis Description: Patient/caregiver will be able to identify signs/symptoms of sepsis infection and will verbalize actions to take if suspected by 06/09/25. Sepsis No Patient to maintain parameters within physician-specified ranges throughout certification period Physician Specific Parameters No Manage Risk for falls Description: Patient/caregiver will verbalize knowledge of individualized fall prevention strategies by 06/09/25. Risk for Falls No Manage Pain Description: Patient/caregiver will verbalize knowledge and understanding of appropriate techniques to control pain, including pain medication and non-pharmacological techniques. Patient will verbalize or demonstrate an acceptable level of pain as evidenced by a pain score of <6/10 and improvement in ability to perform activities of daily living to be achieved by 06/09/25. Pain No Manage Nutrition/Hydration Description: Patient/caregiver will verbalize/demonstrate knowledge of prescribed diet and/or healthy nutrition to be achieved by 06/09/25. Nutrition/Hydration No Patient/caregiver will teach back high risk medication side effect and precaution education Description: STG Patient/caregiver will verbalize understanding of high risk medication side effects and precautions to be achieved by 05/22/25. LTG Patient/caregiver will continue to verbalize understanding of high risk medication side effects and precautions throughout certification period. High Risk Medications No Manage discharge planning Description: Patient/caregiver will verbalize understanding of ongoing discharge plan provided related to disease management, arrangements for outpatient and/or community services, obtaining medications, supplies, and DME, as needed throughout certification period. Discharge No Patient/Caregiver will verbalize and/or demonstrate understanding of additional comorbidity(s) or disease process affecting plan of care Description: Patient/Caregiver will verbalize and/or demonstrate understanding of comorbidities effect on health conditions by 06/09/25. SN Other significant comorbidities/disease process No Demonstrate understanding of education Description: Patient and/or caregiver will verbalize understanding of educational instruction provided throughout certification period. SN Learning Assessment No Interventions Intervention Associated Problem/Goal Status Variance Visit Notes Medication Education Description: Evaluate/instruct patient/caregiver on obtaining, storing, identifying and administering ordered medications as well as keeping accurate medication list in the home and adhereing to medication schedule Problem:Medication Education Goal:Patient/caregiv er will demonstrate ability to obtain, store, identify and administer ordered medications, keep accurate medication list in home, and adhere to medication schedule Completed Patient instructed on adhering to medication schedule, proper storage of medications and medication, route, dose, frequency, purpose, and side effects of all medications. Risk of Sepsis Description: Patient is at risk for sepsis. Monitor closely for s/s of sepsis. Problem:Sepsis Goal:Patient/caregiv er will be able to identify and report symptoms of sepsis Completed Blood Pressure Description: Notify if resting SBP is <90 or >160. Problem:Physician Specific Parameters Goal:Patient to maintain parameters within physician-specified ranges throughout certification period Completed SPO2 Description: Notify Dr. Farmer if pulse ox is <92% at rest. Problem:Physician Specific Parameters Goal:Patient to maintain parameters within physician-specified ranges throughout certification period Completed Instruct on individual fall risk factors and strategies to prevent falls and injuries caused by falls. Problem:Risk for Falls Goal:Manage Risk for falls Completed SN: Patient instructed on Eliminating Environmental Hazards: Keep pathways clear and Remove unsafe rugs Managing Impaired Functional Mobility: Use assistive device(s): front wheeled walker Instruct on pain and instruct on strategies to control pain Problem:Pain Goal:Manage Pain Completed patient instructed on techniques to control pain including Pharmacological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 [address] [address] PCP - General Internal Medicine 06/11/23 Tana Farmer MD [address] [place] [address] Home Care Provider Internal Medicine 04/28/25 Jem Zaman, RN [address] [place] [address] [employer] Post Acute Care 05/03/25 Nimco Ivey MD [address] [place] [address] [place], [place] [id number] Referring General Surgery 05/04/25 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 Start Date End Date Tana Farmer MD [address] [place] [address] PCP - General Internal Medicine 06/11/23 Tana Farmer MD [address] [place] [address] Home Care Provider Internal Medicine 04/28/25 Jem Zaman, DEONNA [address] [place] [address] [employer] Post Acute Care 05/03/25 Nimco Ivey MD [address] [place] [address] [place], [place] [id number] Referring General Surgery 05/04/25 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 Start Date End Date Tana Farmer MD [address] [place] [address] PCP - General Internal Medicine 06/11/23 Tana Farmer MD [address] [place] [address] Home Care Provider Internal Medicine 04/28/25 Jem Zaman, DEONNA [address] [place] [address] [facility] 05/03/25 Nimco Ivey MD [facility] [address] [place] [address] Referring General Surgery 05/04/25 Scheduled Active and Recently Administ ered Medications (unrecognized section and content) Medication Order 03/13/2025 03/14/2025 03/15/2025 albumin human 25 % solution 25 g (COMPLETED) 25 g, Intravenous, Administer over 60 Minutes, Once, On Thu03/14/25 at 1230, For 1 dose, Infuse with vented tubing if product is in a glass vial. In [facility] [employer] drug library, no longer in fluid library. 1310 (New Bag - Provider: Afia Lucas RN) albumin human 25 % solution 25 g (COMPLETED) 25 g, Intravenous, Administer over 60 Minutes, Once, On Thu03/14/25 at 1330, For 1 dose, Infuse with vented tubing if product is in a glass vial. In [facility] [employer] drug library, no longer in fluid library. 1459 (New Bag - Provider: Afia Lucas RN) albumin human 25 % solution 25 g (COMPLETED) 25 g, Intravenous, Administer over 60 Minutes, Every 6 hours, First dose (after last modification) on Thu03/14/25 at 1800, For 3 doses, Infuse with vented tubing if product is in a glass vial. In [address] drug library, no longer in fluid library. 1917 (New Bag - Provider: Afia Lucas RN)2017 (Stopped - Provider: Nj Drew RN) 0018 (New Bag - Provider: Nj Drew, DEONNA)0118 (Stopped - Provider: Nj Drew, DEONNA)0542 (New Bag - Provider: Nj Drew RN)0643 (Stopped - Provider: Nj Drew, DEONNA) ceFAZolin (ANCEF) IVPB 2 g (premix) 2,000 mg, Intravenous, at 200 mL/hr, Every 8 hours, First dose on Thu03/13/25 at 1800, Indication: Community Acquired Cellulitis 1808 (New Bag - Provider: Rosamaria Mcdaniel RN)1915 (Stopped - Provider: Anita Almaraz RN) 0128 (New Bag - Provider: Nj Drew RN)0158 (Stopped - Provider: Nj Drew RN)1029 (New Bag - Provider: Afia Lucas RN)1059 (Stopped - Provider: Nj Drew, RN)1727 (New Bag - Provider: Afia Lucas RN) 0203 (New Bag - Provider: Nj Drew RN)0233 (Stopped - Provider: Nj Drew RN)1000 (Not Given - Provider: Afia Lucas RN - Reason: Patient/family refused) enoxaparin (LOVENOX) syringe 40 mg 40 mg, Subcutaneous, Daily, First dose on Thu03/13/25 at 1800, Administer in abdomen unless otherwise directed by prescriber. Notify physician if patient refuses., Indication: VTE Prophylaxis 180 (Given - Provider: Rosamaria Mcdaniel RN) 0822 (Given - Provider: Afia Lucas RN) 0900 (Not Given - Provider: Afia Lucas RN - Reason: Order parameters not met) folic acid (FOLVITE) tablet 1 mg 1 mg, Oral, Daily (in the afternoon), First dose on Thu03/13/25 at 1800 1807 (Given - Provider: Rosamaria Mcdaniel RN) 1311 (Given - Provider: Afia Lucas RN) 1416 (Given - Provider: Afia Lucas RN) furosemide (LASIX) tablet 40 mg 40 mg, Oral, Daily, First dose on Thu03/15/25 at 0945 1048 (Given - Provider: Afia Lucas RN) gabapentin (NEURONTIN) capsule 600 mg 600 mg, Oral, Every 12 hours scheduled, First dose on Thu03/13/25 at 2100, Capsule may be opened and contents placed down tube, flush tube with 10ml saline 2044 (Given - Provider: Radha Gongora RN) 0822 (Given - Provider: Afia Lucas RN)2103 (Given - Provider: Nj Drew, DEONNA) 1048 (Given - Provider: Afia Lucas RN) lactulose (CHRONULAC) 10 gram/15 mL solution 10 g 10 g, Oral, 3 times daily, First dose on Thu03/13/25 at 1700, Hold for > 3 BM in 24 hours 180 (Given - Provider: Rosamaria Mcdaniel RN)2044 (Given - Provider: Radha Gongora RN) 08 (Given - Provider: Afia Lucas RN)151 (Given - Provider: Afia Lucas RN)2101 (Given - Provider: Nj Drew RN) 1048 (Given - Provider: Afia Lucas RN)1416 (Given - Provider: Afia Lucas RN) levETIRAcetam (KEPPRA) tablet 750 mg 750 mg, Oral, 2 times daily, First dose on Thu03/13/25 at 2100 2044 (Given - Provider: Radha Gongora RN) 08 (Given - Provider: Afia Lucas RN)2101 (Given - Provider: Nj Drew RN) 104 (Given - Provider: Afia Lucas RN) levothyroxine (SYNTHROID, LEVOTHROID) tablet 50 mcg 50 mcg, Oral, Daily, First dose on Thu03/14/25 at 0600, Avoid administration with soybean flour, cottonseed meal, walnuts, and dietary fiber. Administer at least 1 hour before breakfast. Hold continuous tube feeds for at least 1 hour before until 1 hour after each dose. Flush tube with 30mL of water before and after administration. Tube feed rate may need adjusted to meet caloric needs. 0526 (Given - Provider: Nj Drew RN) 0540 (Given - Provider: Nj Drew RN) lidocaine 2% (PF) 20 mg/mL (2 %) injection 0.5-20 mL (COMPLETED) 0.5-20 mL, Intradermal, Once, On Thu03/14/25 at 1030, For 1 dose, Intra-Procedure, For use in Interventional Radiology during procedure ONLY. Provider to determine dose to administer during procedure. 0940 (Given - Provider: Jasiel Rincon PA-C)1030 (Canceled Entry - Provider: Afia Lucas RN) multivitamin (THERAGRAN) per tablet 1 tablet 1 tablet, Oral, Daily, First dose on Thu03/13/25 at 1800 1807 (Given - Provider: Rosamaria Mcdaniel RN) 08 (Given - Provider: Afia Lucas RN) 1048 (Given - Provider: Afia Lucas RN) potassium chloride SA (K-DUR,KLOR-CON) CR tablet 40 mEq (COMPLETED) 40 mEq, Oral, Once, On Thu03/13/25 at 1810, For 1 dose, DO NOT CRUSH OR CHEW (if instructed may dissolve tablet(s) in liquid) DO NOT ADMINISTER DISSOLVED TABLET VIA SURGICALLY PLACED TUBE OR TUBE less than 14 Citizen Of [place]. To administer dissolved tablet(s) mix with 4 ounces of water over 2-3 minutes, stir for 30 seconds prior to administration; rinse dosing cup and administer residual medication to ensure full dose given 182 (Given - Provider: Rosamaria Mcdaniel, DEONNA) rifAXIMin (XIFAXAN) tablet 550 mg 550 mg, Oral, 2 times daily, First dose on Thu03/14/25 at 1130, For 180 days, Indication: Hepatic Encephalopathy 1323 (Given - Provider: Afia Lucas RN)2103 (Given - Provider: Nj Drew RN) 1048 (Given - Provider: Afia Lucas RN) sodium chloride (PF) (NS) flush 5 mL(Linked Group 1) 5 mL, Intravenous, Every 8 hours scheduled, First dose on Thu03/13/25 at 1530, Saline lock 1530 (Canceled Entry - Provider: Anita Almaraz RN)2200 (Not Given - Provider: Radha Gongora RN - Reason: Order parameters not met) 0600 (Canceled Entry - Provider: Nj Drew RN)1400 (Canceled Entry - Provider: Afia Lucas RN)2200 (Canceled Entry - Provider: Nj Drew RN) 0539 (Given - Provider: Nj Drew RN)1400 (Canceled Entry - Provider: Afia Lucas RN) spironolactone (ALDACTONE) tablet 100 mg 100 mg, Oral, Daily, First dose on Thu03/15/25 at 0945, CATEGORY C HAZARDOUS DRUG use safe handling precautions. Use reference link to view PPE guidelines. Minimize crushing/splitting only to situations where clinically necessary. 1048 (Given - Provider: Afia Lucas RN) thiamine tablet 200 mg 200 mg, Oral, Daily (in the afternoon), First dose on Thu03/13/25 at 1800, For 5 doses 1807 (Given - Provider: Rosamaria Mcdaniel, RN) 1311 (Given - Provider: Afia Lucas, RN) 1416 (Given - Provider: Afia Lucas, RN) PRN Medication Order 03/13/2025 03/14/2025 03/15/2025 acetaminophen (TYLENOL) tablet 650 mg 650 mg, Oral, Every 8 hours PRN, mild pain, fever 100.4 F or greater, headaches, Starting on Thu03/13/25 at 1526 LORazepam (ATIVAN) injection 1-4 mg(Linked Group 2) 1-4 mg, Intramuscular, Every 1 hour prn, CIWA score 8 or greater. See admin instructions for dosing details., Starting on Thu03/13/25 at 1529, [] CIWA less than 8: No medical intervention. [] CIWA 8-10: Give LORazepam (ATIVAN) 1 mg: Assess Vital Signs/Pulse Oximeter/CIWA in 4 hours. [] CIWA 11-14: Give LORazepam (ATIVAN) 2 mg: Assess Vital Signs/Pulse Oximeter/CIWA in 2 hours. [] CIWA 15-25: Give LORazepam (ATIVAN) 3 mg: Assess Vital Signs/Pulse Oximeter/CIWA in 1 hours. [] CIWA greater than 25: Give LORazepam (ATIVAN) 4 mg and Notify Physician: Assess Vital Signs/Pulse Oximeter/CIWA in 15 minutes. [] Give oral route if tolerated. If oral not tolerated give IV. If IV route not available give IM. [] Discontinue CIWA protocol if patient is started on IV infusion of Benzodiazepines, Dexmedetomidine or Propofol. VESICANT LORazepam (ATIVAN) injection 1-4 mg(Linked Group 2) 1-4 mg, Intravenous, Every 1 hour prn, CIWA score 8 or greater. See admin instructions for dosing details., Starting on Thu03/13/25 at 1529, [] CIWA less than 8: No medical intervention. [] CIWA 8-10: Give LORazepam (ATIVAN) 1 mg: Assess Vital Signs/Pulse Oximeter/CIWA in 4 hours. [] CIWA 11-14: Give LORazepam (ATIVAN) 2 mg: Assess Vital Signs/Pulse Oximeter/CIWA in 2 hours. [] CIWA 15-25: Give LORazepam (ATIVAN) 3 mg: Assess Vital Signs/Pulse Oximeter/CIWA in 1 hours. [] CIWA greater than 25: Give LORazepam (ATIVAN) 4 mg and Notify Physician: Assess Vital Signs/Pulse Oximeter/CIWA in 15 minutes. [] Give oral route if tolerated. If oral not tolerated give IV. If IV route not available give IM. [] Discontinue CIWA protocol if patient is started on IV infusion of Benzodiazepines, Dexmedetomidine or Propofol. VESICANT LORazepam (ATIVAN) tablet 1-4 mg(Linked Group 2) 1-4 mg, Oral, Every 1 hour prn, CIWA score 8 or greater. See admin instructions for dosing details., Starting on Thu03/13/25 at 1529, [] CIWA less than 8: No medical intervention. [] CIWA 8-10: Give LORazepam (ATIVAN) 1 mg: Assess Vital Signs/Pulse Oximeter/CIWA in 4 hours. [] CIWA 11-14: Give LORazepam (ATIVAN) 2 mg: Assess Vital Signs/Pulse Oximeter/CIWA in 2 hours. [] CIWA 15-25: Give LORazepam (ATIVAN) 3 mg: Assess Vital Signs/Pulse Oximeter/CIWA in 1 hours. [] CIWA greater than 25: Give LORazepam (ATIVAN) 4 mg and Notify Physician: Assess Vital Signs/Pulse Oximeter/CIWA in 15 minutes. [] Give oral route if tolerated. If oral not tolerated give IV. If IV route not available give IM. [] Discontinue CIWA protocol if patient is started on IV infusion of Benzodiazepines, Dexmedetomidine or Propofol. melatonin tablet 3 mg 3 mg, Oral, Nightly PRN, Sleep, Starting on Thu03/13/25 at 2100 ondansetron (ZOFRAN) injection 4 mg(Linked Group 3) 4 mg, Intravenous, Every 6 hours PRN, nausea, vomiting, Starting on Thu03/13/25 at 1526, Use oral route first, if tolerated. ondansetron (ZOFRAN-ODT) disintegrating tablet 4 mg(Linked Group 3) 4 mg, Oral, Every 6 hours PRN, nausea, vomiting, Starting on Thu03/13/25 at 1526, Use oral route first, if tolerated. Formulation requires tablet remain in sealed package until immediately prior to dose being administered. perflutren lipid microspheres (DEFINITY) 0.143 mg/mL solution 0-10 mL of mixture 0-10 mL of mixture, Intravenous, Once in imaging, contrast, IF suboptimal echo, Starting on Thu03/14/25 at 1041, For 48 hours, Prepare syringe by withdrawing 1.3 mL of perflutren (DEFINITY) from the 2ml vial. Further dilute the 1.3 mL of perflutren with Sodium Chloride (NS) 0.9% to total volume of 10 ml. Chart total ML OF MIXTURE given to patient. sodium chloride (PF) (NS) flush 5 mL(Linked Group 1) 5 mL, Intravenous, As needed, line care, Starting on Thu03/13/25 at 1526 sodium chloride 0.9% (NS)(Linked Group 1) 0-150 mL/hr, Intravenous, As needed, To flush line after IV infusions when no maintenance IV ordered or a compatibility issue. Infuse 20ml at the same rate as the secondary infusion, Starting on Thu03/13/25 at 1526, Run as Primary IV. NOT intended for KVO. 0121 (Canceled Entry - Provider: Nj Drew RN) Linked Groups Order Group 1: Saline lock IV (CANCELED) Routine, Continuous, Starting on Thu03/13/25 at 1530, Until Specified And sodium chloride (PF) (NS) flush 5 mLJump to med 5 mL, Intravenous, As needed, line care, Starting on Thu03/13/25 at 1526 And sodium chloride (PF) (NS) flush 5 mLJump to med 5 mL, Intravenous, Every 8 hours scheduled, First dose on Thu03/13/25 at 1530, Saline lock And sodium chloride 0.9% (NS)Jump to med 0-150 mL/hr, Intravenous, As needed, To flush line after IV infusions when no maintenance IV ordered or a compatibility issue. Infuse 20ml at the same rate as the secondary infusion, Starting on Thu03/13/25 at 1526, Run as Primary IV. NOT intended for KVO. Group 2: LORazepam (ATIVAN) tablet 1-4 mgJump to med 1-4 mg, Oral, Every 1 hour prn, CIWA score 8 or greater. See admin instructions for dosing details., Starting on Thu03/13/25 at 1529, [] CIWA less than 8: No medical intervention. [] CIWA 8-10: Give LORazepam (ATIVAN) 1 mg: Assess Vital Signs/Pulse Oximeter/CIWA in 4 hours. [] CIWA 11-14: Give LORazepam (ATIVAN) 2 mg: Assess Vital Signs/Pulse Oximeter/CIWA in 2 hours. [] CIWA 15-25: Give LORazepam (ATIVAN) 3 mg: Assess Vital Signs/Pulse Oximeter/CIWA in 1 hours. [] CIWA greater than 25: Give LORazepam (ATIVAN) 4 mg and Notify Physician: Assess Vital Signs/Pulse Oximeter/CIWA in 15 minutes. [] Give oral route if tolerated. If oral not tolerated give IV. If IV route not available give IM. [] Discontinue CIWA protocol if patient is started on IV infusion of Benzodiazepines, Dexmedetomidine or Propofol. Or LORazepam (ATIVAN) injection 1-4 mgJump to med 1-4 mg, Intramuscular, Every 1 hour prn, CIWA score 8 or greater. See admin instructions for dosing details., Starting on Thu03/13/25 at 1529, [] CIWA less than 8: No medical intervention. [] CIWA 8-10: Give LORazepam (ATIVAN) 1 mg: Assess Vital Signs/Pulse Oximeter/CIWA in 4 hours. [] CIWA 11-14: Give LORazepam (ATIVAN) 2 mg: Assess Vital Signs/Pulse Oximeter/CIWA in 2 hours. [] CIWA 15-25: Give LORazepam (ATIVAN) 3 mg: Assess Vital Signs/Pulse Oximeter/CIWA in 1 hours. [] CIWA greater than 25: Give LORazepam (ATIVAN) 4 mg and Notify Physician: Assess Vital Signs/Pulse Oximeter/CIWA in 15 minutes. [] Give oral route if tolerated. If oral not tolerated give IV. If IV route not available give IM. [] Discontinue CIWA protocol if patient is started on IV infusion of Benzodiazepines, Dexmedetomidine or Propofol. VESICANT Or LORazepam (ATIVAN) injection 1-4 mgJump to med 1-4 mg, Intravenous, Every 1 hour prn, CIWA score 8 or greater. See admin instructions for dosing details., Starting on Thu03/13/25 at 1529, [] CIWA less than 8: No medical intervention. [] CIWA 8-10: Give LORazepam (ATIVAN) 1 mg: Assess Vital Signs/Pulse Oximeter/CIWA in 4 hours. [] CIWA 11-14: Give LORazepam (ATIVAN) 2 mg: Assess Vital Signs/Pulse Oximeter/CIWA in 2 hours. [] CIWA 15-25: Give LORazepam (ATIVAN) 3 mg: Assess Vital Signs/Pulse Oximeter/CIWA in 1 hours. [] CIWA greater than 25: Give LORazepam (ATIVAN) 4 mg and Notify Physician: Assess Vital Signs/Pulse Oximeter/CIWA in 15 minutes. [] Give oral route if tolerated. If oral not tolerated give IV. If IV route not available give IM. [] Discontinue CIWA protocol if patient is started on IV infusion of Benzodiazepines, Dexmedetomidine or Propofol. VESICANT Group 3: ondansetron (ZOFRAN-ODT) disintegrating tablet 4 mgJump to med 4 mg, Oral, Every 6 hours PRN, nausea, vomiting, Starting on Thu03/13/25 at 1526, Use oral route first, if tolerated. Formulation requires tablet remain in sealed package until immediately prior to dose being administered. Or ondansetron (ZOFRAN) injection 4 mgJump to med 4 mg, Intravenous, Every 6 hours PRN, nausea, vomiting, Starting on Thu03/13/25 at 1526, Use oral route first, if tolerated. FOR RECORDS PERTAINING TO PATIENTS WHO ARE OR HAVE BEEN ENROLLED IN A CHEMICAL DEPENDENCY/SUBSTANCEABUSE PROGRAM, SOME INFORMATION MAY BE OMITTED. This clinical summary was aggregated from multiple sources. Caution should be exercised in using it in the provision of clinical care. This summary normalizes information from multiple sources, and as a consequence, information in this document may materially change the coding, format and clinical context of patient data. In addition, data may be omitted in some cases. CLINICAL DECISIONS SHOULD BE BASED ON THE PRIMARY CLINICAL RECORDS. [employer] provides no warranty or guarantee of the accuracy or completeness of information in this document.
== END 2025-05-07 15:52 | disposition left against medical advice (07) ==
LOC: ED 15:45
PROVIDERS: Emergency Provider Emergency Medicine; PCP Internal Medicine; Visit Provider Emergency Medicine
DX: R40.4 Transient alteration of awareness (principal); K74.60 Unspecified cirrhosis of liver; Z53.29 Procedure and treatment not carried out because of patient's decision for other reasons; I10 Essential (primary) hypertension; E78.5 Hyperlipidemia, unspecified; F17.220 Nicotine dependence, chewing tobacco, uncomplicated; Z79.899 Other long term (current) drug therapy
CPT/HCPCS: 99284

== ENCOUNTER 2025-06-14 11:00 | Outpatient (RCR) | payer OTHER, MEDICAID, SELFPAY ==
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
--- NOTE | 2025-07-31 15:04 | HP.PT.NRP ---
Patient Information Patient Information: ALYSSA HAMLIN was seen in my office for initial evaluation on 06/05/25. The following Plan of Care was established for this patient: POC Established Initial Frequency: 3x /Week Initial Duration: 4-6 Weeks Anticipated Interventions Patient/Client Instruction: Educate patient on: Condition and Plan of Care For the Purpose of:: To decrease pain, To increase ROM, To improve nutrient delivery to tissue, To improve muscle performance and motor function, To increase tolerance to activity/condition/position, To improve ability of physical actions for home/community/work/leisure, To improve gait and locomotor functions, To improve health of tissue and To improve safety Therapeutic Exercise to Include: Strength training, Flexibilty training, Gait and locomotor training, Passive ROM, Active ROM and Dynamic Lumbar Stabilization For the Purpose of:: To decrease pain, To increase ROM, To improve nutrient delivery to tissue, To improve muscle performance and motor function, To increase tolerance to activity/condition/position, To improve ability of physical actions for home/community/work/leisure, To improve gait and locomotor functions and To improve safety Functional Training to Include: Gait training For the Purpose of:: To improve ability to perform ADL's and To improve gait and locomotor functions Last Seen Last Seen: This patient was last seen in our office 06/14/25. Pertinent comments regarding their Physical therapy will appear below: Pt seen 3 visits of POC and then cancelled mentioning having legal issues . At this point, it has been over 6 weeks and I will discontinue due to nonattendance. At this point I will be discontinuing this patient from physical therapy. I would be happy to see this patient again in the future if found appropriate by the physician. Thank you! Dung Mccall, DPT, OCS, CSCS Balance/Gait/Functional tests Balance/Special Test Scores Functional Gait Assessment Score: 20 % Disability: 33.3400 CATSIB Score (Max score 120 seconds): 100 Lower Extremity Functional Score: 3 TUG Test Time Seconds: 10 Tug Test: <10 sec.=free mobile 30 Second Chair Rise Test Seconds: 10
== END 2025-06-14 19:00 | disposition home or self-care (01) ==
LOC: PT 11:00
PROVIDERS: PCP Internal Medicine; Referring Provider Internal Medicine; Visit Provider Internal Medicine
DX: S22.49XD Multiple fractures of ribs, unspecified side, subsequent encounter for fracture with routine healing (principal); R62.7 Adult failure to thrive; R53.81 Other malaise
CPT/HCPCS: 97110; 97163

== ENCOUNTER → 2025-06-14 | Outpatient (CLI) | payer OTHER, SELFPAY ==
[2025-06-14 12:23] LABS: Hematocrit 33.1 % (40-54); Hemoglobin 11.2 g/dL (13.0-16.5); Immature Granulocytes Count 0.010 X10^3/uL (0.0-0.0); Mean Corp Hgb Conc 33.8 g/dL (32-36); Mean Corpuscular Volume 112.2 fL (80-94); Mean Platelet Vol. 9.3 fl (6.2-12.0); NRBC Flagged by Analyzer 0 % (0-5); POSITIVE COUNT YES; Platelet Count 85 K/mm3 (150-450); RBC Distribution Width CV 13.9 % (11.6-14.6); RBC Distribution Width SD 56.6 fl (35.1-43.9); Red Blood Count 2.95 M/mm3 (4.6-6.2); White Blood Count 3.9 K/mm3 (4.4-11.0)
[2025-06-14 12:31] LABS: Prothrombin Time (Protime)PT. 24.8 SECONDS (11.7-14.9)
[2025-06-14 12:42] LABS: Magnesium 1.6 mg/dL (1.5-2.2); PSA,Total- Diagnostic 1.02 ng/mL (0.00-4.00)
[2025-06-14 13:00] LABS: AST(SGOT) 95 U/L (<=37); Alanine Aminotransfer ALT/SGPT 33 U/L (<=46); Albumin, Serum 3.0 g/dL (3.5-5.0); Alkaline Phosphatase 274 U/L (40-129); Anion Gap 10 (5-15); BUN 3 mg/dL (4-19); BUN/Creat Ratio 5.2 RATIO (10-20); Calcium,Total 8.7 mg/dL (7.6-11.0); Carbon Dioxide 29.8 mmol/L (21.0-32.0); Chloride 98 mmol/L (98-108); Globulin 4.9 g/dL (2.2-4.2); Glucose 162 mg/dL (70-99); Potassium 3.3 mmol/L (3.3-5.1)
== END | disposition home or self-care (01) ==
LOC: BIMLAB 09:27
PROVIDERS: PCP Internal Medicine; Referring Provider Internal Medicine; Visit Provider Internal Medicine
DX: K70.31 Alcoholic cirrhosis of liver with ascites (principal); N52.9 Male erectile dysfunction, unspecified; E03.9 Hypothyroidism, unspecified
CPT/HCPCS: 36415; 80053; 83735; 84153; 84402; 84403; 84443; 85025; 85610

== ENCOUNTER → 2025-06-29 | Outpatient (CLI) | payer OTHER, MEDICAID, SELFPAY ==
--- NOTE | 2025-06-29 14:47 | RAD_ITS ---
PROCEDURE: RIBS UNI MIN 3V W/PA CHEST 06/29/2025 REASON FOR EXAM: MULTIPLE FRACTURES OF RIBS, UNSPECIFIED SIDE, INITIAL ENCOUNTER F TECHNIQUE: RIBS UNI MIN 3V W/PA CHEST COMPARISON: Prior chest radiograph dated November 24, 2024 FINDINGS: Findings: There is evidence of a large right pleural effusion with the compressive atelectasis at the right lung base and right middle lobe. Other: There are multiple right-sided rib fractures in different stages of healing. The left lung is clear. RAD/Ribs Uni Min 3V w/PA Chest IMPRESSION: Multiple right-sided rib fractures. Large right pleural effusion with compressive atelectasis in the right middle a nd right lower lobes. Reading Location: [id number]
== END | disposition home or self-care (01) ==
LOC: RAD 14:45
PROVIDERS: PCP Internal Medicine; Referring Provider Anesthesiology; Visit Provider Anesthesiology
DX: S22.49XA Multiple fractures of ribs, unspecified side, initial encounter for closed fracture (principal)
CPT/HCPCS: 71101

== ENCOUNTER 2025-07-12 11:20 | Inpatient (IN) | payer OTHER, MEDICAID, SELFPAY ==
[2025-07-12] VITALS (18 sets, daily range): BP systolic 104–158; BP diastolic 60–92; PULSE 128–147; RESP 18–34; TEMP 36.8–38.6; O2SAT 92–96; BMI 26.4
--- NOTE | 2025-07-12 11:37 | EKG12_ITS ---
Test Reason : Blood Pressure : */* mmHG Vent. Rate : 136 BPM Atrial Rate : 136 BPM P-R Int : 164 ms QRS Dur : 76 ms QT Int : 244 ms P-R-T Axes : 33 15 3 degrees QTcB Int : 367 ms Sinus tachycardia Otherwise normal ECG Confirmed by JACQUELINE BRAVO, JAVIER ([id number]), writer editor GUILLERMO PALMA ([id number]) on 07/13/2025 1:35:56 PM Referred By: Confirmed By: JAVIER PHILLIPS MD
--- NOTE | 2025-07-12 11:39 | RAD_ITS ---
PROCEDURE: CHEST PA AND LATERAL 07/12/2025 REASON FOR EXAM: SOB, PNEUMONIA? RECENT RIB FXS TECHNIQUE: CHEST PA AND LATERAL COMPARISON: Right rib series and PA chest 06/29/2025 FINDINGS: Examination limited by hypoinflation, AP portable technique, body habitus, and particularly patient motion, the latter particularly on the lateral view. A very large right pleural effusion is increased since 06/29/2025. No left pleural effusion is noted. No pneumothorax is seen. No evidence of pulmonary edema. No focal infiltrate is appreciated in visualized areas. The cardiomediastinal silhouette is stable, without evidence of cardiomegaly. Multiple recent right rib fractures are again seen. Old left rib fractures are again noted. RAD/Chest PA and Lateral IMPRESSION: 1. No pneumothorax is noted. 2. Very large right pleural fluid collection, increased since the prior study o f 06/29/2025. Reading Location: [place] [id number]
--- NOTE | 2025-07-12 11:40 | CT_ITS ---
PROCEDURE: ABDOMEN/PELVIS W IV CONT ONLY 07/12/2025 REASON FOR EXAM: ABDOMINAL PAIN, NAUSEA TECHNIQUE: ABDOMEN/PELVIS W IV CONT ONLY Coronal and Sagittal reconstruction series were provided. CONTRAST: Isovue 300 VOLUME: 99 mL One or more dose reduction techniques were used (e.g., Automated exposure control, adjustment of the mA and/or kV according to patient size, use of iterative reconstruction technique. RADIATION DOSE SUMMARY: CTDlvol: 9+ 23 mGy DLP: 1513 mGycm COMPARISON: 09/20/2024. FINDINGS: Chest Base: *Large loculated right pleural effusion with sharp margins and lobulation. *Associated near-complete atelectasis of the right lower lobe, complete atelectasis of the right middle lobe, and ~50% atelectasis of the right upper lobe. *Partially visualized mediastinal structures are unremarkable. Liver/Biliary: *Small liver with widened fissures and nodular contour, compatible with cirrhosis. *Numerous gallstones within the gallbladder. *Gallbladder wall thickening, possibly reactive to portal hypertension. Pancreas/Adrenals: *Pancreas and adrenal glands unremarkable. Spleen: *Splenomegaly. *Upper abdominal varices present. Kidneys/Urinary Tract: *Bilateral subcentimeter renal hypodense lesions, too small to characterize, likely cysts. *Symmetric renal enhancement. *No hydronephrosis. *Urinary bladder wall thickening up to 7 mm without significant surrounding fat stranding. *Prostate borderline enlarged. GI Tract: *Diffuse colonic wall thickening, likely related to portal hypertension; however, colitis cannot be excluded. Peritoneum: *Small volume ascites. Musculoskeletal/Soft Tissues: *Left hydrocele. *Left hip arthroplasty. *Degenerative changes of the spine. *Moderate superior endplate compression deformity of L3, new compared to prior CT. *Peripheral soft tissues otherwise unremarkable. Lymph nodes: *No suspicious lymphadenopathy. CT/Abdomen/Pelvis W IV Cont ONLY IMPRESSION: *Large loculated right pleural effusion with lobulation causing collapse of rig ht lower lobe, right middle lobe, and partial collapse of right upper lobe. *Cirrhosis. *Portal hypertension with sequela including splenomegaly, varices, and ascites. *Diffuse colonic wall thickening favoring portal hypertension, though colitis i s possible. *Cholelithiasis. *Gallbladder wall thickening, favoring reactive to portal hypertension. *Compression deformity of L3, new since prior CT, but of undetermined exact age . *Urinary bladder wall thickening, which may indicate cystitis or changes relate d to outlet obstruction. *Left hydrocele. *Borderline prostate enlargement. Reading Location: [id number]
[2025-07-12] MEDS: 0.9% Normal Saline (1000mL) 1,000 ML 1000 ML IV (11:54)
[2025-07-12 11:56] LABS: Hematocrit 30.5 % (40-54); Hemoglobin 10.2 g/dL (13.0-16.5); Immature Granulocytes Count 0.010 X10^3/uL (0.0-0.0); Mean Corp Hgb Conc 33.4 g/dL (32-36); Mean Corpuscular Volume 113.4 fL (80-94); Mean Platelet Vol. 9.4 fl (6.2-12.0); NRBC Flagged by Analyzer 0 % (0-5); POSITIVE COUNT YES; POSITIVE DIFFERENTIAL YES; RBC Distribution Width CV 14.4 % (11.6-14.6); RBC Distribution Width SD 58.9 fl (35.1-43.9); Red Blood Count 2.69 M/mm3 (4.6-6.2); White Blood Count 4.8 K/mm3 (4.4-11.0)
[2025-07-12 12:21] LABS: Magnesium 1.0 mg/dL (1.5-2.2); Troponin T High Sensitivity 37 ng/L (<=22)
[2025-07-12 12:22] LABS: Lipase 30 U/L (13-75)
[2025-07-12 12:24] LABS: Platelet Count 49 K/mm3 (150-450)
[2025-07-12 12:25] LABS: AST(SGOT) 85 U/L (<=37); Alanine Aminotransfer ALT/SGPT 29 U/L (<=46); Albumin, Serum 2.7 g/dL (3.5-5.0); Alkaline Phosphatase 162 U/L (40-129); Anion Gap 20 (5-15); BUN 9 mg/dL (4-19); BUN/Creat Ratio 9.9 RATIO (10-20); Calcium,Total 8.6 mg/dL (7.6-11.0); Carbon Dioxide 19.4 mmol/L (21.0-32.0); Chloride 95 mmol/L (98-108); Differential Indicated SCAN CRITERIA MET; Estimated Creatinine Clearance 94.68 ml/min (50-250); Globulin 4.3 g/dL (2.2-4.2); Glucose 199 mg/dL (70-99); Potassium 3.1 mmol/L (3.3-5.1)
--- NOTE | 2025-07-12 12:31 | NUR.TO.PHY ---
DR. MESA NOTIFIED OF LACTATE OF 10.5
[2025-07-12] MEDS: Piperacil/Tazobactam 4.5 GM in 0.9% Normal Saline (100mL MB+) 100 ML IV (12:54)
[2025-07-12] MEDS: Magnesium Sulfate 2 GM in Dextrose 5%-Water (100mL Bag) 100 ML IV (13:09)
[2025-07-12] MEDS: Potassium Chloride 10mEq/100mL 10 MEQ/100 ML IV.SOLN. 100 MEQ IV BOLUS ×2 (13:23→15:34)
[2025-07-12 14:23] LABS: Troponin T High Sens 2 HR 35 ng/L (<=22)
[2025-07-12 14:32] LABS: Mucous, Urine 0 SEEN /hpf (<or=2+); Squamous Epithelial Cells - UA 0 SEEN /hpf (0-5)
[2025-07-12 14:54] LABS: Color, Urine Yellow (Yellow); Glucose, Dipstick Normal (Normal); Ketone-Dipstick 5 mg/dl (Negative); Leukocyte Esterase-Dipstick 25 /ul (Negative); Nitrite-Dipstick Positive (Negative); Occult Blood-Urine 25 /ul (Negative); Protein-Dipstick 30 mg/dl (Negative); Specific Gravity, Urine 1.010 (1.002-1.030)
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
[2025-07-12] MEDS: Vancomycin HCl 2,000 MG in 0.9% Normal Saline (500mL Bag) 500 ML 250 MG IV (15:02)
[2025-07-12 15:03] LABS: Urine Bilirubin Dipstick 6 mg/dL (Negative)
[2025-07-12 15:21] LABS: Red Blood Cells-Urine 0-5 SEEN /hpf (0-5)
[2025-07-12 15:49] LABS: Reflex Lactate? Y
[2025-07-12 16:01] LABS: Alcohol, Blood (Medical)-Serum < 10.1 mg/dL (<=10.0)
[2025-07-12 17:04] LABS: Troponin T High Sens 4 HR 38 ng/L (<=22)
[2025-07-12 20:32] LABS: Reflex Lactate? Y
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
[2025-07-12] MEDS: 0.9% Normal Saline (1000mL) 1,000 ML 999 ML IV (22:13)
[2025-07-12 22:48] LABS: Prothrombin Time (Protime)PT. 35.8 SECONDS (11.7-14.9)
[2025-07-12 22:49] LABS: Partial Thromboplast Time 50.8 Seconds (24.1-36.2)
--- OUTSIDE RECORDS SUMMARY | 2025-07-12 23:27 | XMS RPT_ITS | CCD ---
Author Organization [facility]ini[facility] Care Team Providers Care Short Order Fry Cook Name Role Phone SYSTEM, PROVIDER NOT IN Attending UnavailNAYANA Ogden Primary Care Unavailab Nayana Oneil Primary Care Provider Jaci vailable Unavailable Primary Care Provider UnavailDr. Tana Samano Primary Care Provider [phone] Dr. Tana Farmer Attending Provider [phone] Dr. Tana Farmer Referring Provider [phone] Nayana Solomon Primary Care Provider [phone] Tana Farmer MD Primary Care Provider [phone] Dr. Tana Farmer Primary Care Provider [phone] Dr. Tana Farmer Attending Provider [phone] Dr. Tana Farmer Referring Provider [phone] Dr. Caridad Go Emergency Provider [phone] Dr. Brian Junior Admit Provider [phone] Dr. Brian Junior Other Provider [phone] Dr. Anselmo Edwards Other Provider Unavailable Dr. Abel Parr Attending Provider Dr. Anselmo Edwards Attending Provider Unavailable Dr. Kar Dave Other Provider Unavaila Dr. Phillip Good Other Provider Dr. Tana Farmer Primary Care Provider [phone] Dr. Tana Farmer Attending Provider [phone] Dr. Tana Farmer Referring Provider [phone] Dr. Caridad Go Emergency Provider Sandi, Dr. Torres Admit Provider [phone] Dr. Brian Junior Other Provider [phone] Dr. Anselmo Edwards Referring Provider Unavailable Jerry, Dr. Subramanian Other Provider Unavailable Karolyn, Dr. Roman Attending Provider Dr. Anselmo Edwards Attending Provider Unavailable Dr. Kar Dave Other Provider Unavaila maribel Man, Dr. Fisher Other Provider Dr. Tana Farmer Primary Care Provider [phone] Marleny, Dr. Brownlee Attending Provider [phone] Marleny, Dr. Brownlee Referring Provider [phone] Dr. Tana Farmer Primary Care Provider [phone] Marleny, Dr. Brownlee Attending Provider [phone] Marleny, Dr. Brownlee Referring Provider [phone] Taan Farmer MD Primary Care Provider [phone] TANA FARMER Primary Care Unavailable RAMONA JUNG Attending Unavailable Marleny BRAVO, Tana Whipple Primary Care Prov ider TAYE HENDERSON Attending Unavaila ble TANA FARMERCTA Primary Care Unav ailable JENSEN CABELLO Attending Unavailable TANA FARMERCTA Primary Care Unav ailable ROWSHANBAKHTFARDIAN, TANNAZ Admitting Unav ailable JOHN BECERRIL Consulting Unavailable DUNG MATA Consulting Unavailable Marleny BRAVO, Dr. Brownlee Primary Care Provider Marleny BRAVO, Dr. Brownlee Attending Provider [phone] Marleny BRAVO, Dr. Brownlee Referring Provider [phone] Adan BRAVO, Dr. Huber Giraldo Attending Provider Dr. Dung Christine DO Emergency Provider Drain COOK VEGETABLE.BROADCASTING EQUIPMENT MECHANIC, Anca Unavailable Marleny BRAVO, Efewongbe B Unavailable Junie RN, Jem Unavailable Loni BRAVO, Nimco Unavailable Marleny BRAVO, Dr. Brownlee Primary Care Provider Marleny BRAVO, Dr. Brownlee Attending Provider [phone] Marleny BRAVO, Dr. Brownlee Referring Provider Dr. Dung Christine DO Attending Provider Dr. Roderick Alarcon DO Emergency Provider Neeru Heredia Attending Provider Unavailab le HORATTAS, NIMCO Referring Unavailable OLEGHE, EFEWONGBE B Primary Care Unavailable HORATTAS, NIMCO Referring Unavailable OLEGHE, EFEWONGBE B Primary Care Unavailable OLEGHE, EFEWONGBE B Primary Care Unavailable OLEGHE, EFEWONGBE B Primary Care Unavailable OLEGHE, EFEWONGBE B Primary Care Unavailable OLEGHE, EFEWONGBE B Primary Care Unavailable BRIAN CRAWFORD Attending Unavailable Dorian CORTES, Dr. Vaughn Attending Provider OLEGHE, EFEWONGBE B Primary Care Unavailable MUAKKASSA, FARID NEISHA Admitting Unavailabl e HORATTAS, NIMCO Attending Unavailable STEPHANIE LECHUGA Consulting Unavailable Fidel BRAVO, Dr. Decker Attending Provider Dr. Jeronimo Parra MD Referring Provider Neeru Heredia Attending Unavailable Oleghe, Efewongbe Primary Care Unavailable Oleghe, Efewongbe Attending Unavailable Oleghe, Efewongbe Referring Unavailable Oleghe, Efewongbe Primary Care Unavailable Oleghe, Efewongbe Primary Care Unavailable Oleghe, Efewongbe Referring Unavailable Carmine Braun Attending Unavailable Oleghe, Efewongbe Attending Unavailable Oleghe, Efewongbe Primary Care Unavailable Oleghe, Efewongbe Referring Unavailable Oleghe, Efewongbe Referring Unavailable Oleghe, Efewongbe Primary Care Unavailable Huber Arellano Attending Unavailable Oleghe, Efewongbe Attending Unavailable Oleghe, Efewongbe Referring Unavailable Oleghe, Efewongbe Primary Care Unavailable Oleghe, Efewongbe Attending Unavailable Oleghe, Efewongbe Referring Unavailable Oleghe, Efewongbe Primary Care Unavailable Oleghe, Efewongbe Attending Unavailable Oleghe, Efewongbe Primary Care Unavailable Oleghe, Efewongbe Referring Unavailable Oleghe, Efewongbe Primary Care Unavailable Huber Arellano Attending Unavailable Carmine Braun Referring Unavailable Oleghe, Efewongbe Primary Care Unavailable PraJeronimo benitez Referring Unavailable PraysDia brownes Attending Unavailable Oleghe, Efewongbe Attending Unavailable Oleghe, Efewongbe Referring Unavailable Oleghe, Efewongbe Primary Care Unavailable Oleghe, Efewongbe Primary Care Unavailable Dung Christine Attending Unavailable Oleghe, Efewongbe Primary Care Unavailable Caridad Go Attending Unavailable Oleghe, Efewongbe Attending Unavailable Oleghe, Efewongbe Primary Care Unavailable Oleghe, Efewongbe Referring Unavailable Oleghe, Efewongbe Primary Care Unavailable Dung Christine Attending Unavailable Roderick Alarcon Attending Unavailable Oleghe, Efewongbe Primary Care Unavailable Oleghe, Efewongbe Primary Care Unavailable Rakesh Loja Attending Unavailable Oleghe, Efewongbe Attending Unavailable Oleghe, Efewongbe Referring Unavailable Oleghe, Efewongbe Primary Care Unavailable Medications Current Medications Medication Drug Class(es) Dates Sig (Normalized) Sig (Original) amoxicillin 875 mg / clavulanate 125 mg oral tablet (20 sources) Penicillin-class Antibacterial Start: 05-11-2025 take 1 tablet by mouth twice daily amoxicillin-clav ulanate potassium (AUGMENTIN) 875-125 mg per tablet Take 1 tablet by mouth two times a day. 05/11/2025 Active Start: 05-11-2025 End: 06-14-2025 Amoxicillin-Pot Clavulanate 875-125 mg tablet Discontinued 1 {tbl} PO Q12H 20 0 May 11, 2025 12:00am June 14, 2025 8:47am Start: 12-16-2019 End: 12-26-2019 Amoxicillin-Pot Clavulanate (Augmentin) 875-125 mg tablet Discontinued 1 {tbl} PO Q12H 20 10 0 December 16, 2019 1:00am December 25, 2019 1:00am December 26, 2019 1:08am Acute sinusitis, unspecified Start: 12-16-2019 End: 12-26-2019 Bedside Commode (4 sources) Start: 05-08-2025 Bedside Commod e Active 0 .Route .MEDSUPPLY 1 0 May 08, 2025 12:00am History of fracture Debility Personal history of (healed) traumatic fracture Other malaise As directed Start: 05-08-2025 Bedside Commod e Active 0 .Route .MEDSUPPLY 1 May 08, 2025 12:00am As directed ciprofloxacin 3 mg/ml ophthalmic solution (1 source) [...] venous insufficiency 20-30 mmHg Compress.Stocking,Knee,Reg,L rg misc (14 sources) Start: 07-01-2024 Compress.Stocking,Knee,Reg,L rg misc Active 0 .MEDSUPPLY 2 1 July 01, 2024 12:00am Venous insufficiency (chronic) (peripheral) wear daily for venous insufficiency 20-30 mmHg Start: 07-01-2024 Compress.Stock ing,Knee,Reg,Lrg misc Active 0 .MEDSUPPLY 2 July 01, 2024 12:00am wear daily for venous insufficiency 20-30 mmHg Start: 09-18-2021 Compress.Stock ing,Knee,Reg,Lrg misc Active 0 .MEDSUPPLY 2 September 18, 2021 12:00am Venous insufficiency (chronic) (peripheral) wear daily for venous insufficiency 20-30 mmHg [...] days. 14 tablet 0 06/14/2024 06/21/2024 Active furosemide 40 mg oral tablet (20 sources) Loop Diuretic Start: 03-15-2025 End: 06-13-2025 take 1 tablet by mouth once daily furosemide (LASIX) 40 MG tablet Take 1 (one) tablet (40 mg total) by mouth daily . 30 tablet 2 03/15/2025 06/13/2025 Active Start: 12-16-2024 End: 06-12-2025 take 1 tablet by mouth twice daily Furosemide 40 mg tablet Active 40 mg PO TWICE DAILY 60 0 June 12, 2025 4:21pm Start: 07-18-2023 End: 03-15-2025 take 1 tablet by mouth twice daily Furosemide 20 mg tablet Discontinued 20 mg PO TWICE DAILY 180 0 December 13, 2024 11:55am December 16, 2024 11:06am lactulose 667 mg/ml oral solution (20 sources) [...] g PO TWICE A DAY 2700 90 3 June 24, 2024 10:44am March 24, 2025 10:49am potassium Start: 03-04-2021 End: 04-15-2022 take 1 mL by mouth once daily Lactulose 10 gram/15 mL (15 mL) solution Discontinued 15 mL PO DAILY 450 1 March 04, 2021 12:00am April 15, 2022 [...] . 03/15/2025 Discontinued (Stop Taking at Discharge) lidocaine 0.05 mg/mg medicated patch (20 sources) Antiarrhythmic, Amide Local Anesthetic Start: 06-14-2025 Lidocaine 5 % adhesi ve patch,medicated Active 1 NMA TOPICAL DAILY as needed for rib pain 30 June 14, 2025 9:06am Fracture of multiple ribs leave on most painful area for 12 hrs Start: 07-10-2022 End: 06-14-2025 Lidocaine 5 % adhesive patch,medicated Discontinued 1 NMA TOPICAL DAILY as needed for rib pain 30 1 July 10, 2022 10:23am June 14, 2025 9:07am leave on most painful area for 12 hrs Start: 06-14-2021 End: 04-15-2022 Lidocaine 5 % adhesive patch,medicated Discontinued 1 NMA TOPICAL DAILY as needed for rib pain 30 0 June 14, 2021 1:58pm April 15, 2022 2:16pm leave on most painful area for 12 hrs Start: 12-13-2019 End: 06-14-2021 Lidocaine 5 % adhesive patch,medicated Discontinued 1 NMA TOPICAL DAILY as needed for rib pain 30 0 December 13, 2019 5:35pm June 14, 2021 1:59pm leave on most painful area for 12 hrs Start: 06-24-2019 End: 12-13-2019 Lidocaine 5 % adhesive patch,medicated Discontinued 1 NMA TOPICAL DAILY as needed for rib pain 30 0 June 24, 2019 12:00am December 13, 2019 5:36pm leave on most painful area for 12 hrs Start: 06-24-2019 End: 04-15-2022 apply 1 dose topically once daily Lidocaine Discontinued 1 PATCH TOPICAL DAILY 30 June 14, 2021 1:58pm April 15, 2022 [...] 12-11-2022 midodrine hydrochloride 10 mg oral tablet (20 sources) alpha-Adrenergic Agonist Start: 05-11-2025 End: 06-12-2025 take 1 tablet by mouth once daily at bedtime Midodrine 10 mg tablet Active 10 mg PO THREE TIMES A DAY 180 1 June 12, 2025 4:21pm do not give last dose of day after 6PM or within 4 hrs of bedtime Start: 05-02-2025 take 1 tablet by olu th every eight hours midodrine (PROAMATINE) 10 mg tablet Take 1 tablet by mouth every 8 hours. 90 tablet 05/02/2025 Active oxyCODONE hydrochloride 5 mg oral tablet (20 sources) Opioid Agonist Start: 06-14-2025 take 1 tablet by mouth three times daily as needed for pain Oxycodone 5 mg tablet Active 5 mg PO THREE TIMES A DAY as needed for pain 0 June 14, 2025 12:00am Start: 05-11-2025 End: 05-14-2025 take 1 tablet by mouth three times daily as needed for pain Oxycodone 5 mg tablet Discontinued 5 mg PO THREE TIMES A DAY as needed for pain 10 3 0 May 11, 2025 May 13, 2025 12:00am May 14, 2025 12:07am Fracture of multiple ribs Start: 05-02-2025 End: 05-05-2025 take 1 tablet [...] HOURS as needed for pain 12 3 0 November 24, 2024 December 16, 2024 10:04am Contusion of rib on left side Left-sided chest wall pain Contusion of left front wall of thorax, initial encounter Other chest pain rifAXIMin 550 mg oral tablet (20 sources) Rifamycin Antibacterial Start: 03-24-2025 End: 05-11-2025 take 1 tablet by mouth twice daily Rifaximin 550 mg tablet Active 550 mg PO TWICE A DAY 180 0 May 11, 2025 7:07pm Start: 03-14-2025 End: 03-15-2025 take 1 tablet by mouth twice daily rifAXIMin (XIFAXAN) 550 mg tablet Take 1 (one) tablet (550 mg total) by mouth 2 (two) times a day . 60 tablet 2 03/15/2025 11:24 AM EDT 03/14/2025 Active Completed/Discontinued Medications Medication Drug Class(es) Dates Sig [...] 6 HOURS as needed for Pain 120 1 June 23, 2019 10:15am January 08, 2022 [...] / HYDROcodone bitartrate 5 mg oral tablet (17 sources) Opioid Agonist Start: 9 End: 9 take 1 tablet by mouth every six hours as needed for pain Hydrocodone-Acetamino phen 1 TABLET tablet Discontinued 1 {tbl} PO EVERY 6 HOURS NEEDED as needed for Pain 12 3 0 June 09, 2019 June 11, 2019 12:00am June 19, 2019 12:08am Fracture of rib of left side Fracture of one rib, left side, initial encounter for closed fracture Start: 06-09-2019 End: 06-19-2019 take 1 tablet by mouth every six hours as needed Hydrocodone-Acetaminophen Discontinued 1 TABLET PO EVERY 6 HOURS NEEDED 12 3 June 09, 2019 June 19, 2019 12:08am Start: 06-09-2019 End: 06-19-2019 acetaminophen 325 mg / oxyCODONE hydrochloride 5 mg oral tablet (20 sources) Opioid Agonist Start: 04-07-2025 End: 05-11-2025 Oxycodone-Acetaminophen 5-32 5 mg tablet Discontinued 1 {tbl} PO EVERY 6 HOURS NEEDED as needed for Pain 12 3 0 May 11, 2025 May 11, 2025 7:10pm Multiple fractures of rib involving four or more ribs Start: 09-30-2023 End: 06-24-2024 Oxycodone-Acetaminophen 5-32 5 mg tablet Discontinued 1 {tbl} PO EVERY 6 HOURS NEEDED as needed for Pain 12 3 0 September 30, 2023 June 24, 2024 10:13am Fracture of triquetrum of left wrist Start: 09-30-2023 take 1 tablet by olu th every six hours as needed Oxycodone-Acetaminophen Active 1 TABLET PO EVERY 6 HOURS NEEDED 12 3 September 30, 2023 Start: 09-30-2023 Start: 07-14-2022 End: 06-18-2023 take 1 tablet by mouth every six hours as needed for pain Oxycodone-Acetaminophen 5-325 mg tablet Discontinued 1 {tbl} PO EVERY 6 HOURS NEEDED as needed for pain 20 5 0 July 14, 2022 June 18, 2023 2:26pm Fracture of rib Fracture of one rib, unspecified side, initial encounter for closed fracture Start: 07-14-2022 End: 06-18-2023 take 1 tablet by mouth every six hours as needed Oxycodone-Acetaminophen Discontinued 1 TABLET PO EVERY 6 HOURS NEEDED 20 5 July 14, 2022 June 18, 2023 2:26pm Start: 07-14-2022 End: 06-18-2023 Start: 11-24-2021 take 1 tablet by olu th every six hours Oxycodone-Acetaminophen (Percocet) 5-325 mg tablet Active 1 TABLET PO EVERY 6 HOURS 12 November 24, 2021 5:01pm 20 ml albumin human, senior care 250 mg/ml injection (3 sources) Human Serum Albumin Start: 03-14-2025 End: 03-15-2025 take 25 g intravenously every six hours 25 g, Intravenous, Administer over 60 Minutes, Every 6 hours, First dose (after last modification) on Thu03/14/25 at 1800, For 3 doses, Infuse with vented tubing if product is in a glass vial. In [facility] drug library, no longer in fluid library. Start: 03-14-2025 End: 03-14-2025 25 g, Intravenous, Administe r over 60 Minutes, Once, On Thu03/14/25 at 1330, For 1 dose, Infuse with vented tubing if product is in a glass vial. In [facility] drug library, no longer in fluid library. [id number] 200 actuat albuterol 0.09 mg/actuat metered dose [...] as needed for wheezing (90mcg). 0 Active benzonatate 200 mg oral capsule (2 sources) [...] 25 mg PO TWICE A DAY 180 3 April 24, 2022 11:03am June 18, 2023 2:25pm ceFAZolin 2000 mg injection (1 source) Cephalosporin Antibacterial Start: 025 End: take 2000 mg intravenously every eight hours 2,000 mg, Intravenous, at 200 mL/hr, Every 8 hours, First dose on Thu03/13/25 at 1800, Indication: Community Acquired Cellulitis cephalexin 500 mg oral capsule (20 sources) Cephalosporin Antibacterial Start: 025 End: take 1 capsule by mouth every six hours Cephalexin 500 mg capsule Discontinued 500 mg PO EVERY 6 HOURS March 24, 2025 12:00am May 11, 2025 5:04pm Start: 03-11-2025 End: 03-20-2025 take 1 capsule [...] 500 mg PO EVERY 6 HOURS 40 0 November 10, 2019 1:00am December 13, 2019 5:21pm coal tar 5 mg/ml medicated shampoo (17 sources) Start: 12-15-2017 End: 01-14-2019 [place] Tar (Claudio-Gel Tar Shamp oo) 0.5 % shampoo Discontinued 1 NMA TOPICAL daily December 15, 2017 1:00am January 14, 2019 4:57pm Crutch (9 sources) Start: 11-24-2021 End: 04-15-2022 Crutch Discontinued 0 .ROUTE .MEDSUPPLY 2 November 24, 2021 5:30pm April 15, 2022 2:14pm As directed Start: 11-24-2021 End: 04-15-2022 Crutch Discontinued 0 .ROUTE .MEDSUPPLY 2 November 24, 2021 12:00am April 15, 2022 1:14pm As directed Start: 11-24-2021 End: 04-15-2022 Crutch Discontinued 0 .ROUTE .MEDSUPPLY 2 November 24, 2021 1:00am April 15, 2022 2:14pm As directed Crutch misc (7 sources) Start: 11-24-2021 End: 04-15-2022 Crutch misc Discontinued 0 . ROUTE .MEDSUPPLY 2 0 November 24, 2021 1:00am April 15, 2022 2:14pm As directed Start: 11-24-2021 End: 04-15-2022 Crutch misc Discontinued 0 . ROUTE .MEDSUPPLY 2 November 24, 2021 1:00am April 15, 2022 2:14pm As directed doxylamine succinate 25 mg oral tablet (19 sources) Start: 07-09-2017 End: 03-13-2025 take 1 [...] capsule,delayed release(DR/EC) Discontinued 30 mg PO DAILY 7 0 July 02, 2021 5:27pm April 15, 2022 2:15pm Start: 11-13-2020 End: 04-15-2022 take 1 capsule by mouth once daily Duloxetine 60 mg capsule,delayed release(DR/EC) Discontinued 60 mg PO DAILY 90 0 July 02, 2021 5:27pm April 15, 2022 [...] spray,suspension Discontinued 2 NMA INTRANASAL DAILY 15.8 1 June 14, 2021 1:58pm April 15, 2022 2:15pm administer into each nostril Start: 11-18-2019 End: 04-15-2022 take 1 spray(s) nasal route once daily Fluticasone Propionate (Flonase Allergy Relief) 50 mcg/actuation spray,suspension Discontinued 2 SPRAY INTRANASAL DAILY 15.8 June 14, 2021 1:58pm April 15, 2022 2:15pm administer into each nostril folic acid 0.8 mg oral tablet (11 sources) Start: 03-24-2025 End: 05-11-2025 take 0.8 mg by mouth once daily Folic Acid 800 mcg tablet Discontinued 0.8 mg PO daily March 24, 2025 12:00am May 11, 2025 5:04pm Start: 03-13-2025 End: 04-14-2025 take 1 tablet by mouth once daily folic acid (FOLVITE) 1 MG tablet Take 1 (one) tablet (1 mg total) by mouth daily in the afternoon . 30 tablet 03/15/2025 04/14/2025 Active gabapentin 600 mg oral tablet (20 sources) [...] MOUTH TWICE A DAY Start: 08-10-2019 End: 06-12-2025 take 1 tablet by mouth twice daily Gabapentin 600 mg tablet Discontinued 600 mg PO TWICE A DAY 60 0 March 16, 2025 12:32pm May 11, 2025 7:11pm pain TAKE 1 TABLET BY MOUTH TWICE A DAY Start: 08-10-2019 End: 05-28-2023 take 1 tablet [...] mg PO THREE TIMES A DAY 90 1 July 08, 2019 9:43am August 10, 2019 3:41pm Start: 06-02-2018 End: 06-22-2018 take 1 capsule by mouth twice daily Gabapentin 100 mg capsule Discontinued 100 mg PO TWICE A DAY 60 0 June 02, 2018 12:00am June 22, 2018 3:51pm neuropathic pain Comment on above: Take 1 tablet by olu th every 12 hours 6am/6pm. ibuprofen 800 mg oral tablet (20 sources) Nonsteroidal Anti-inflammatory Drug Start: 07-16-2017 ibuprofen (MOTRIN) 600 mg tablet 07/16/2017 Active Start: 07-09-2017 End: 07-18-2023 take 1 tablet by mouth every eight hours as needed for pain Ibuprofen 800 mg tablet Discontinued 800 mg PO EVERY 8 HOURS as needed for Pain 60 0 July 10, 2023 9:52am July 18, 2023 10:26am levETIRAcetam 1000 mg oral tablet (20 sources) Start: 03-13-2025 End: 03-15-2025 take 750 mg by mouth twice daily 750 mg, Oral, 2 times daily, First dose on Thu03/13/25 at 2100 Start: 04-21-2019 End: 06-12-2025 take 1 tablet by mouth twice daily Levetiracetam 1,000 mg tablet Discontinued 1000 mg PO TWICE A DAY 60 0 March 16, 2025 1:43pm June 12, 2025 4:21pm ? Start: 07-09-2017 End: 04-21-2019 take 1 tablet by mouth twice daily Levetiracetam 750 mg tablet Discontinued 750 mg PO TWICE A DAY 180 2 January 14, 2019 4:53pm April 21, 2019 4:46pm Comment on above: TAKE 1 TABLET orally twice a day] levothyroxine sodium 0.05 mg oral tablet (20 sources) l-Thyroxine Start: End: take 30 mL by mouth once daily [...] to meet caloric needs. Start: 07-31-2023 End: 06-12-2025 take 1 tablet by mouth once daily Levothyroxine 50 mcg tablet Discontinued 50 ug PO DAILY 30 0 March 16, 2025 1:43pm June 12, 2025 4:21pm thyroid Start: 03-04-2021 End: 07-31-2023 take 1 tablet by mouth once daily Levothyroxine 25 mcg tablet Discontinued 25 ug PO DAILY 90 3 March 25 2023 5:32pm July 31, 2023 12:42pm thyroid Comment on above: Take 1 tablet by olu th every afternoon. LORazepam (1 source) Benzodiazepine Start: 025 End: take 1-4 mg by mouth every hour as needed LORazepam (ATIVAN) tablet 1-4 mg meclizine hydrochloride 25 mg oral tablet (20 sources) Antiemetic Start: 017 End: take 1 tablet by mouth twice daily as needed for dizziness Meclizine (Travel-Ease (Meclizine)) 25 mg tablet Discontinued 25 mg PO TWICE A DAY as needed for for dizziness 20 0 March 16, 2025 1:44pm May 11, 2025 7:08pm Start: 04-21-2013 take 1 tablet by olu [...] (for dizziness.). mecobalamin 1 mg sublingual tablet (17 sources) Start: 08-21-2021 End: 04-15-2022 Mecobalamin (Vitamin [...] by olu th once daily. Multivitamin tablet (20 sources) Start: 09-18-2021 End: 04-15-2022 Multivitamin tablet Discontinued 1 {tbl} PO EVERY MORNING 90 September 18, 2021 6:04pm April 15, 2022 2:16pm Start: 09-18-2021 End: 04-15-2022 Multivitamin tablet Disconti nued 1 {tbl} PO EVERY MORNING September 18, 2021 6:04pm April 15, 2022 2:16pm Start: 06-14-2021 End: 09-18-2021 Multivitamin tablet Disconti nued 1 {tbl} PO EVERY MORNING 90 June 14, 2021 1:59pm September 18, 2021 6:04pm Start: 06-14-2021 End: 09-18-2021 Multivitamin tablet Disconti nued 1 {tbl} PO EVERY MORNING 90 June 14, 2021 1:59pm September 18, 2021 6:04pm Start: 08-21-2020 End: 06-14-2021 Multivitamin tablet Disconti nued 1 {tbl} PO EVERY MORNING 90 August 21, 2020 4:28pm June 14, 2021 1:59pm Start: 08-21-2020 End: 06-14-2021 Multivitamin tablet Disconti nued 1 {tbl} PO EVERY MORNING August 21, 2020 4:28pm June 14, 2021 1:59pm Start: 08-10-2019 End: 08-21-2020 Multivitamin tablet Disconti nued 1 {tbl} PO EVERY MORNING 90 August 10, 2019 12:00am August 21, 2020 4:28pm Start: 08-10-2019 End: 08-21-2020 Multivitamin tablet Disconti nued 1 {tbl} PO EVERY MORNING August 10, 2019 12:00am August 21, 2020 4:28pm naltrexone 380 mg injection (17 sources) Opioid Antagonist Start: 08-10-2019 End: 12-29-2019 inject 380 mg by intramuscular injection every month Naltrexone Microspheres (Vivitrol) 380 mg suspension,extended rel recon Discontinued 380 mg IM EVERY MONTH August 10, 2019 12:00am December 29, 2019 5:06pm naproxen 500 mg oral tablet (17 sources) Nonsteroidal Anti-inflammato ry Drug Start: 11-30-2019 End: 01-08-2022 take 1 tablet by mouth twice daily as needed Naproxen 500 MG tablet Discontinued 500 mg PO TWICE DAILY NEEDED November 30, 2019 1:00am January 08, 2022 6:37pm omeprazole 40 mg delayed release oral capsule (16 sources) Proton Pump Inhibitor Start: 06-18-2023 End: [...] pantoprazole 40 mg delayed release oral tablet (20 sources) Proton Pump Inhibitor Start: 07-09-2017 End: [...] syringe by withdrawing 1.3 mL of perflutren ([employer]) from the 2ml vial. Further dilute the [...] Comment on above: Take 1 capsule by [facility] three times daily. microencapsulated potassium chloride 20 meq extended release oral tablet (1 source) Start: 03-13-2025 End: 03-13-2025 40 mEq, Oral, Once, On Thu03/13/25 at 1810, For 1 dose, DO NOT CRUSH OR CHEW (if instructed may dissolve tablet(s) in liquid) DO NOT ADMINISTER DISSOLVED TABLET VIA SURGICALLY PLACED TUBE OR TUBE less than 14 [place]. To administer dissolved tablet(s) mix with 4 ounces of water over 2-3 minutes, stir for 30 seconds prior to administration; rinse dosing cup and administer residual medication to ensure full dose given predniSONE 20 mg oral tablet (13 sources) Start: 07-18-2023 End: 08-26-2023 take 2 tablets by mouth at breakfast Prednisone 20 mg Tablet Discontinued 40 mg PO WITH BREAKFAST 10 July 18, 2023 12:00am August 26, 2023 [...] mg capsule Discontinued 10 mg PO DAILY 90 3 June 14, 2021 1:59pm July 02, 2021 5:06pm sertraline 50 mg oral tablet (20 sources) Serotonin Reuptake Inhibitor Start: 08-10-2019 End: 11-13-2020 take 1 tablet by mouth once daily Sertraline 50 mg tablet Discontinued 50 mg PO daily 90 3 August 21, 2020 4:24pm November 13, 2020 [...] PO DAILY as needed for sexual activity 10 0 April 24, 2022 11:03am August 26, 2023 1:49pm administer 30 minutes to 4 hours before activity Sodium Chloride (1 source) Start: 03-13-2025 End: 03-15-2025 sodium chloride (PF) (NS) flush 5 mL spironolactone 100 mg oral tablet (20 sources) Aldosterone Antagonist Start: 03-15-2025 End: 06-13-2025 take 1 tablet by mouth once daily Spironolactone 100 mg tablet Discontinued 100 mg PO daily March 24, 2025 12:00am May 11, 2025 5:04pm Start: 03-15-2025 End: 03-15-2025 take 100 mg [...] 25 mg PO TWICE A DAY 180 0 January 11, 2025 5:44pm March 24, 2025 10:51am sulfamethoxazole 800 mg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 g/dL Low 13.0-17.0 [facility] Comment on above: Order Comment: Speci men Type: BLOOD SPECIMENOrdering Facility: [facility] Address: [address] [place] [address] Performed By: #### 5 8410-2 ####[facility] LABORATORYCLIA [id number] [address] MCH (RBC) [Entitic mass] 35.1 pg High 26.0-34.0 [facility] Comment on above: Order Comment: Speci men Type: BLOOD SPECIMENOrdering Facility: [facility] Address: [address] [place] [address] Performed By: #### 5 8410-2 ####[facility] LABORATORYCLIA [id number] [address] MCHC (RBC) [Mass/Vol] 32.9 g/dL Normal 30.5-36.0 [facility] Comment on above: Order Comment: Speci men Type: BLOOD SPECIMENOrdering Facility: [facility] Address: [address] [place] [address] Performed By: #### 5 8410-2 ####[facility] LABORATORYCLIA [id number] [address] OF [facility] MCV (RBC) [Entitic vol] 106.6 fL High 80.0-100.0 [facility] Comment on above: Order Comment: Speci men Type: BLOOD SPECIMENOrdering Facility: [facility] Address: [address] [place] [address] Performed By: #### 5 8410-2 ####[facility] LABORATORYCLIA [id number] [address] Nucleated RBC (Bld) [#/Vol] 10*3/uL Normal <0.01 [facility] Comment on above: Order Comment: Speci men Type: BLOOD SPECIMENOrdering Facility: [facility] Address: [address] [place] [address] Performed By: #### 5 8410-2 ####[facility] LABORATORYCLIA [id number] [address] Platelet mean volume (Bld) [Entitic vol] 10.2 fL Normal 9.0-12.7 [facility] Comment on above: Order Comment: Speci men Type: BLOOD SPECIMENOrdering Facility: [facility] Address: [address] [place] [address] Performed By: #### 5 8410-2 ####[facility] LABORATORYCLIA [id number] [address] [place] Platelets (Bld) [#/Vol] 79 10*3/uL Low 150-400 [facility] Comment on above: Order Comment: Speci men Type: BLOOD SPECIMENOrdering Facility: [facility] Address: [address] [place] [address] Result Comment: No c lot detected. Performed By: #### 5 8410-2 ####[facility] LABORATORYCLIA [id number] [place] [address] [place] RBC (Bld) [#/Vol] 2.28 10*6/uL Low 4.20-6.00 [facility] Comment on above: Order Comment: Speci men Type: BLOOD SPECIMENOrdering Facility: [facility] Address: [address] [place] [address] Performed By: #### 5 8410-2 ####[facility] LABORATORYCLIA [id number] [address] [place] WBC (Bld) [#/Vol] 4.79 10*3/uL Normal 3.70-11.00 [facility] Comment on above: Order Comment: Speci men Type: BLOOD SPECIMENOrdering Facility: [facility] Address: [address] [place] [address] Performed By: #### 5 8410-2 ####[facility] LABORATORYCLIA [id number] [address] [place] THERAPY NTon 04-29-2025 THERAPY NT Normal [facility] XR CHEST 1V FRONTALon 2024 XR CHEST 1V FRONTAL Normal [facility] ALLIED HEALTHon 04-28-2025 ALLIED HEALTH Normal [facility] Bacteria Spec Resp Culton Bacteria identified Respiratory culture Nom (Unsp spec) CULTURE, RESPIRATORY: Few Normal respiratory xenia present GRAM STAIN: Rare Yeast Moderate Polymorphonuclear leukocytes Rare Epithelial cells Abnormal [facility] Comment on above: Performed By: #### 3 2355-0 ####[facility] LABORATORYCLIA [id number] [place] [address] [place] Basic metabolic 2000 panelon 04-28-2025 Anion gap [Moles/Vol] 6 mmol/L Low 8-15 [facility] Comment on above: Order Comment: Speci men Type: BLOOD SPECIMENOrdering Facility: [facility] Address: [address] [place] [address] Performed By: #### 2 4321-2 ####[facility] LABORATORYCLIA [id number] [place] [address] [place] Calcium [Mass/Vol] 8.5 mg/dL Normal 8.5-10.2 [facility] Comment on above: Order Comment: Speci men Type: BLOOD SPECIMENOrdering Facility: [facility] Address: [address] [place] [address] Performed By: #### 2 4321-2 ####[facility] LABORATORYCLIA [id number] [place] [address] [place] Chloride [Moles/Vol] 95 mmol/L Low 98-107 [facility] Comment on above: Order Comment: Speci men Type: BLOOD SPECIMENOrdering Facility: [facility] Address: [address] [place] [address] Performed By: #### 2 4321-2 ####[facility] LABORATORYCLIA [id number] [place] [address] [place] CO2 [Moles/Vol] 23 mmol/L Normal 22-30 [facility] Comment on above: Order Comment: Speci men Type: BLOOD SPECIMENOrdering Facility: [facility] Address: [address] [place] [address] Performed By: #### 2 4321-2 ####[facility] LABORATORYCLIA [id number] [place] [id number] [place] Creatinine [Mass/Vol] 1.33 mg/dL High 0.73-1.22 [facility] Comment on above: Order Comment: Sahil leroy Type: BLOOD SPECIMENOrdering Facility: [facility] Address: [address] [place] [address] Performed By: #### 2 4321-2 ####[facility] LABORATORYCLIA [id number] [place] [id number] [facility] Creatinine and Glomerular filtration rate.predicted panel (S/P/Bld) 64 mL/min/1.73m??? Normal >=60 [facility] Comment on above: Order Comment: Sahil leroy Type: BLOOD SPECIMENOrdering Facility: [facility] Address: [address] [place] [address] Result Comment: Autumn mated Glomerular Filtration Rate [...] actual GFR. Performed By: #### 2 4321-2 ####[facility] LABORATORYCLIA [id number] [place] [id number] [place] Glucose [Mass/Vol] 126 mg/dL High 74-99 [facility] Comment on above: Order Comment: Sahil harper Type: BLOOD SPECIMENOrdering Facility: [facility] Address: [address] [place] [address] Result Comment: The [place] Diabetes [employer] (ADA) provides guidance for cutoff [...] Standards of Medical Care in Diabetes 2016, [place] [employer]. Diabetes Care. 2016.39(Suppl 1). Performed By: #### 2 4321-2 ####[facility] LABORATORYCLIA [id number] [address] STATES OF [facility] Potassium [Moles/Vol] 4.7 mmol/L Normal 3.7-5.1 [facility] Comment on above: Order Comment: Speci men Type: BLOOD SPECIMENOrdering Facility: [facility] Address: [address] [place] [address] Performed By: #### 2 4321-2 ####[facility]CLIA [id number] [address] STATES [facility] Sodium [Moles/Vol] 124 mmol/L Low 136-144 [facility] Comment on above: Order Comment: Speci leroy Type: BLOOD SPECIMENOrdering Facility: [facility] Address: [address] [place] [address] Performed By: #### 2 4321-2 ####[facility] LABORATORYCLIA [id number] [address] STATES [facility] Urea nitrogen [Mass/Vol] 57 mg/dL High 9-24 [facility] Comment on above: Order Comment: Speci men Type: BLOOD SPECIMENOrdering Facility: [facility] Address: [address] [place] [address] Performed By: #### 2 4321-2 ####[facility] LABORATORYCLIA [id number] [address] [place] CASE MANAGEMon 04-28-2025 CASE MANAGEM Normal [facility] CBC panel Auto (Bld)on 04-28 Erythrocyte distribution width (RBC) [Ratio] 18.3 % High 11.5-15.0 [facility] Comment on above: Order Comment: Speci men Type: BLOOD SPECIMENOrdering Facility: [facility] Address: [address] [place] [address] Performed By: #### 5 8410-2 ####[facility] LABORATORYCLIA [id number] [address] STATES OF [facility] Hematocrit (Bld) [Volume fraction] 24.7 % Low 39.0-51.0 [facility] Comment on above: Order Comment: Speci men Type: BLOOD SPECIMENOrdering Facility: [facility] Address: [address] [place] [address] Performed By: #### 5 8410-2 ####[facility] LABORATORYCLIA [id number] [address] [facility] Hemoglobin (Bld) [Mass/Vol] 7.9 g/dL Low 13.0-17.0 [facility] Comment on above: Order Comment: Speci men Type: BLOOD SPECIMENOrdering Facility: [facility] Address: [address] [place] [address] Performed By: #### 5 8410-2 ####[facility] LABORATORYCLIA [id number] [address] [place] MCH (RBC) [Entitic mass] 34.2 pg High 26.0-34.0 [facility] Comment on above: Order Comment: Speci men Type: BLOOD SPECIMENOrdering Facility: [facility] Address: [address] [place] [address] Performed By: #### 5 8410-2 ####[facility] LABORATORYCLIA [id number] [address] [place] MCHC (RBC) [Mass/Vol] 32.0 g/dL Normal 30.5-36.0 [facility] Comment on above: Order Comment: Speci men Type: BLOOD SPECIMENOrdering Facility: [facility] Address: [address] [place] [address] Performed By: #### 5 8410-2 ####[facility] LABORATORYCLIA [id number] [address] STATES OF [facility] MCV (RBC) [Entitic vol] 106.9 fL High 80.0-100.0 [facility] Comment on above: Order Comment: Speci men Type: BLOOD SPECIMENOrdering Facility: [facility] Address: [address] [place] [address] Performed By: #### 5 8410-2 ####[facility] LABORATORYCLIA [id number] [address] [place] Nucleated RBC (Bld) [#/Vol] 10*3/uL Normal <0.01 [facility] Comment on above: Order Comment: Speci men Type: BLOOD SPECIMENOrdering Facility: [facility] Address: [address] [place] [address] Performed By: #### 5 8410-2 ####[facility] LABORATORYCLIA [id number] [address] Platelet mean volume (Bld) [Entitic vol] 9.8 fL Normal 9.0-12.7 [facility] Comment on above: Order Comment: Speci men Type: BLOOD SPECIMENOrdering Facility: [facility] Address: [address] [place] [address] Performed By: #### 5 8410-2 ####[facility] LABORATORYCLIA [id number] [address] [place] Platelets (Bld) [#/Vol] 76 10*3/uL Low 150-400 [facility] Comment on above: Order Comment: Speci men Type: BLOOD SPECIMENOrdering Facility: [facility] Address: [address] [place] [address] Performed By: #### 5 8410-2 ####[facility] LABORATORYCLIA [id number] [address] [place] RBC (Bld) [#/Vol] 2.31 10*6/uL Low 4.20-6.00 [facility] Comment on above: Order Comment: Speci men Type: BLOOD SPECIMENOrdering Facility: [facility] Address: [address] [place] [address] Performed By: #### 5 8410-2 ####[facility] LABORATORYCLIA [id number] [address] [place] WBC (Bld) [#/Vol] 4.71 10*3/uL Normal 3.70-11.00 [facility] Comment on above: Order Comment: Speci men Type: BLOOD SPECIMENOrdering Facility: [facility] Address: [address] [place] [address] [place] [address] Performed By: #### 5 8410-2 ####[facility] LABORATORYCLIA [id number] [address] [place] CT ABD/PEL W IVCONon 025 CT ABD/PEL W IVCON Normal [facility] PT panel Coag (PPP)on 2024 INR Coag (PPP) [Relative time] 1.6 {INR} High 0.9-1.3 [facility] Comment on above: Order Comment: Speci men Type: BLOOD SPECIMENOrdering Facility: [facility] Address: [address] [place] [address] Result Comment: Erum min K Antagonist (VKA) Therapeutic Range: INR 2 to 3 (Target INR of 2.5)Note: For patients treated with VKA drugs, such as warfarin, the [employer] 2012 Guideline recommends [...] 3).Alpa THOMSON, et al. Chest 2012, 141:7S-47SDario MATHEW, et al. JAC 2017, 70: 252-289 Performed By: #### 3 4528-0 ####[facility] LABORATORYCLIA [id number] [address] [place] PT Coag (PPP) [Time] 17.2 s High 9.7-13.0 [facility] Comment on above: Order Comment: Speci men Type: BLOOD SPECIMENOrdering Facility: [facility] Address: [address] [place] [address] Performed By: #### 3 4528-0 ####[facility] LABORATORYCLIA [id number] [address] OF [facility] XR CHEST 1V FRONTALon 2024 XR CHEST 1V FRONTAL Normal [facility] XR CHEST 1V FRONTAL Normal [facility] ALLIED HEALTHon 04-27-2025 ALLIED HEALTH Normal [facility] Bacteria Spec Resp Culton Bacteria identified Respiratory culture Nom (Unsp spec) Normal [facility] Comment on above: Performed By: #### 3 2355-0 ####[facility] LABORATORYCLIA [id number] [address] [place] Basic metabolic 2000 panelon 04-27-2025 Anion gap [Moles/Vol] 8 mmol/L Normal 8-15 [facility] Comment on above: Order Comment: Speci men Type: BLOOD SPECIMENOrdering Facility: [facility] Address: [address] [place] [address] Performed By: #### 2 4321-2 ####[facility] LABORATORYCLIA [id number] [address] [place] Calcium [Mass/Vol] 8.7 mg/dL Normal 8.5-10.2 [facility] Comment on above: Order Comment: Speci men Type: BLOOD SPECIMENOrdering Facility: [facility] Address: [address] [place] [address] Performed By: #### 2 4321-2 ####[facility] LABORATORYCLIA [id number] [address] [place] Chloride [Moles/Vol] 94 mmol/L Low 98-107 [facility] Comment on above: Order Comment: Speci men Type: BLOOD SPECIMENOrdering Facility: [facility] Address: [address] [place] [address] Performed By: #### 2 4321-2 ####[facility] LABORATORYCLIA [id number] [place] [id number] [place] CO2 [Moles/Vol] 25 mmol/L Normal 22-30 [facility] Comment on above: Order Comment: Speci men Type: BLOOD SPECIMENOrdering Facility: [facility] Address: [address] [place] [address] Performed By: #### 2 4321-2 ####[facility] LABORATORYCLIA [id number] [address] [place] Creatinine [Mass/Vol] 1.17 mg/dL Normal 0.73-1.22 [facility] Comment on above: Order Comment: Speci men Type: BLOOD SPECIMENOrdering Facility: [facility] Address: [address] [place] [address] Performed By: #### 2 4321-2 ####[facility] LABORATORYCLIA [id number] [address] Creatinine and Glomerular filtration rate.predicted panel (S/P/Bld) 74 mL/min/1.73m??? Normal >=60 [facility] Comment on above: Order Comment: Speci men Type: BLOOD SPECIMENOrdering Facility: [facility] Address: [address] [place] [address] Result Comment: Autumn mated Glomerular Filtration Rate [...] actual GFR. Performed By: #### 2 4321-2 ####[facility] LABORATORYCLIA [id number] [address] [place] Glucose [Mass/Vol] 120 mg/dL High 74-99 [facility] Comment on above: Order Comment: Virgilioi men Type: BLOOD SPECIMENOrdering Facility: [facility] Address: [address] [place] [address] Result Comment: The [place] Diabetes Association (ADA) provides guidance for cutoff [...] Standards of Medical Care in Diabetes 2016, [place] [employer]. Diabetes Care. 2016.39(Suppl 1). Performed By: #### 2 4321-2 ####[facility] LABORATORYCLIA [id number] [place] [address] [place] Potassium [Moles/Vol] 4.9 mmol/L Normal 3.7-5.1 [facility] Comment on above: Order Comment: Sahil leroy Type: BLOOD SPECIMENOrdering Facility: [facility] Address: [address] [place] [address] Performed By: #### 2 4321-2 ####[facility] LABORATORYCLIA [id number] [place] [address] [place] Sodium [Moles/Vol] 127 mmol/L Low 136-144 [facility] Comment on above: Order Comment: Virgilioi men Type: BLOOD SPECIMENOrdering Facility: [facility] Address: [address] [place] [address] Performed By: #### 2 4321-2 ####[facility] LABORATORYCLIA [id number] [place] [address] [place] Urea nitrogen [Mass/Vol] 58 mg/dL High 9-24 [facility] Comment on above: Order Comment: Virgilioi men Type: BLOOD SPECIMENOrdering Facility: [facility] Address: [address] [place] [address] Performed By: #### 2 4321-2 ####[facility] LABORATORYCLIA [id number] [place] [address] [facility] CASE MANAGEMon 04-27-2025 CASE MANAGEM Normal [facility] CBC panel Auto (Bld)on 04-27 Erythrocyte distribution width (RBC) [Ratio] 18.3 % High 11.5-15.0 [facility] Comment on above: Order Comment: Speci men Type: BLOOD SPECIMENOrdering Facility: [facility] Address: [address] [place] [address] Performed By: #### 5 8410-2 ####[facility] LABORATORYCLIA [id number] [address] [place] [facility] Hematocrit (Bld) [Volume fraction] 25.4 % Low 39.0-51.0 [facility] Comment on above: Order Comment: Speci men Type: BLOOD SPECIMENOrdering Facility: [facility] Address: [address] [place] [address] Performed By: #### 5 8410-2 ####[facility] LABORATORYCLIA [id number] [address] [place] Hemoglobin (Bld) [Mass/Vol] 8.3 g/dL Low 13.0-17.0 [facility] Comment on above: Order Comment: Speci men Type: BLOOD SPECIMENOrdering Facility: [facility] Address: [address] [place] [address] Performed By: #### 5 8410-2 ####[facility] LABORATORYCLIA [id number] [address] [place] MCH (RBC) [Entitic mass] 34.7 pg High 26.0-34.0 [facility] Comment on above: Order Comment: Speci men Type: BLOOD SPECIMENOrdering Facility: [facility] Address: [address] [place] [address] Performed By: #### 5 8410-2 ####[facility] LABORATORYCLIA [id number] [place] [address] [place] MCHC (RBC) [Mass/Vol] 32.7 g/dL Normal 30.5-36.0 [facility] Comment on above: Order Comment: Speci men Type: BLOOD SPECIMENOrdering Facility: [facility] Address: [address] [place] [address] Performed By: #### 5 8410-2 ####[facility] LABORATORYCLIA [id number] [address] [facility] MCV (RBC) [Entitic vol] 106.3 fL High 80.0-100.0 [facility] Comment on above: Order Comment: Speci men Type: BLOOD SPECIMENOrdering Facility: [facility] Address: [address] [place] [address] Performed By: #### 5 8410-2 ####[facility] LABORATORYCLIA [id number] [address] Nucleated RBC (Bld) [#/Vol] 10*3/uL Normal <0.01 [facility] Comment on above: Order Comment: Speci men Type: BLOOD SPECIMENOrdering Facility: [facility] Address: [address] [place] [address] Performed By: #### 5 8410-2 ####[facility] LABORATORYCLIA [id number] [address] Platelet mean volume (Bld) [Entitic vol] 10.5 fL Normal 9.0-12.7 [facility] Comment on above: Order Comment: Speci men Type: BLOOD SPECIMENOrdering Facility: [facility] Address: [address] [place] [address] Performed By: #### 5 8410-2 ####[facility] LABORATORYCLIA [id number] [address] [place] Platelets (Bld) [#/Vol] 80 10*3/uL Low 150-400 [facility] Comment on above: Order Comment: Speci men Type: BLOOD SPECIMENOrdering Facility: [facility] Address: [address], [place] [address] Result Comment: No c lot detected. Performed By: #### 5 8410-2 ####[facility] LABORATORYCLIA [id number] [address] RBC (Bld) [#/Vol] 2.39 10*6/uL Low 4.20-6.00 [facility] Comment on above: Order Comment: Speci men Type: BLOOD SPECIMENOrdering Facility: [facility] Address: [address] [place] [address] Performed By: #### 5 8410-2 ####[facility] LABORATORYCLIA [id number] [address] WBC (Bld) [#/Vol] 5.20 10*3/uL Normal 3.70-11.00 [facility] Comment on above: Order Comment: Speci men Type: BLOOD SPECIMENOrdering Facility: [facility] Address: [address] [place] [address] Performed By: #### 5 8410-2 ####[facility] LABORATORYCLIA [id number] [address] CNPNon 04-27-2025 CNPN Telephone (HCSIND) -------- ARYAN VALLE ([id number]) 1970 M Date Time Provider Department 04/27/25 AMY EDGE HCSIND During your visit today, we recorded the following information about you: Amy Edge LPN 04/27/2025 3:02 PM Signed Called and spoke with Mindy in providers office, wanted to know if would follow for [facility] services. CASEY Sims Alexis, LUCIUS 04/28/2025 9:46 AM Signed Tana Farmer MD office called to let us know the doctor will follow the patient for HC. Allergies As of Date: 04/27/2025 (No Known Allergies) Date Reviewed: 04/24/2025 Reviewed by: Zuleika Torres RN - Fully Assessed Reason for Visit: Home Care [4073] Cmt: MD to follow Prescriptions as of 04/28/2025 - [...] Encounter Status:Closed by SAURAV SNELL on 04/28/25 [facility] Telephone (HCSIND) -------- ARYAN VALLE ([id number]) 1970 M Date Time Provider Department 04/27/25 [facility] During your visit today, we recorded the following information about you: Renee Flores HHA 04/27/2025 3:25 PM Signed Date/Time: 04/27/2025 3:19 PM Spoke with Friend Cora @ phone #: [phone] - Preferred # for contact: [phone] Have you received help from a home care company in the last 60 days? No Are you agreeable to [facility] services? Yes What address will we be seeing you at? Address [address] [place] [address] Do you have any upcoming appointments or things we need to schedule around? No Do you have a teachable CG or can you manage your care independently? Yes Who? Friend/Significant Other Allergies As of Date: 04/27/2025 (No Known Allergies) Date Reviewed: 04/24/2025 Reviewed by: Zuleika Torres RN - Fully Assessed Reason for Visit: [...] Encounter Status:Closed by RENEE FLORES on 04/27/25 Normal [facility] THERAPY NTon 04-27-2025 THERAPY NT Normal [facility] THERAPY NT Normal [facility] XR CHEST 1V FRONTALon 2024 XR CHEST 1V FRONTAL Normal [facility] Amylase (Body fld) [Catalyti c activity/Vol]on 04-26-2025 Fluid Nom (Body fld) Sterile Fluid/Body Fluid, Pleural Cavity, Right, Non Blood Normal [facility] Comment on above: Order Comment: Speci men Type: FLUID SPECIMENOrdering Facility: [facility] Address: [address] [place] [address] [place] [address] Performed By: #### 2 344-0, 1542-6, 1795-4 ####[facility] LABCLIA [id number] [place] [address] [place] Amylase Fld-cCncon 5 Amylase (Body fld) [Catalytic activity/Vol] 36 U/L Normal See Comment [facility] Comment on above: Order Comment: Speci men Type: FLUID SPECIMENOrdering Facility: [facility] Address: [address] [place] [address] Result Comment: PLEU RAL FLUIDS:Amylase measurement in [...] other clinical and laboratory information.References:1. Camila RANDLE, Adelso-Martir Giraldo. Body fluid analysis: clinical utility and applicability of published studies to guide interpretation of todays laboratory testing in serous fluids. Crit Rev Clin Lab Sci, 2013;50(4-5):107-124.2. CLSI. Analysis of Body Fluids in Clinical Chemistry; Approved Guideline. CLSI document C49-A. MEGHNA Li: Clinical Laboratory Standards [place]; 2007.3. Chel SAHNI, Carlita RIGGINS, Elena ALVAREZ. Use of cyst fluid CEA, CA19-9, and amylase for evaluation of pancreatic lesions. Clinical Biochemistry. 2009;42:9552-1930.This test was developed, and its performance characteristics determined by the [facility] Department of Pathology and Laboratory Medicine. It has not been cleared or approved by the FDA. The [facility] Department of Pathology and Laboratory Medicine is regulated under CLIA as qualified to perform high-complexity testing. This test is used for clinical purposes. It should not be regarded as investigational or for research. Performed By: #### 2 344-0, 2529-6, 1795-4 ####[facility] LABCLIA [id number] [address] BODY FLUID CELL COUNTon 06-0 Clarity (Unsp spec) Clear Normal Clear [facility] Comment on above: Order Comment: Speci men Type: SPECIMEN FROM PLEURA OBTAINED BY THORACENTESISOrdering Facility: [facility] Address: [address] [place] [address] Performed By: #### L [id number], CCBF ####[facility] LABORATORYCLIA [id number] [address] Color (Body fld) Yellow Normal Yellow [facility] Comment on above: Order Comment: Speci men Type: SPECIMEN FROM PLEURA OBTAINED BY THORACENTESISOrdering Facility: [facility] Address: [address] [place] [address] Performed By: #### L [id number], CCBF ####[facility] LABORATORYCLIA [id number] [address] RBC Manual cnt (Body fld) [#/Vol] 34579 /uL High <2000 [facility] Comment on above: Order Comment: Speci men Type: SPECIMEN FROM PLEURA OBTAINED BY THORACENTESISOrdering Facility: [facility] Address: [address] [place] [address] Performed By: #### L [id number], CCBF ####[facility] LABORATORYCLIA [id number] [address] Specimen source Nom (Body fld) Pleural Cavity, Right Normal [facility] Comment on above: Order Comment: Speci men Type: SPECIMEN FROM PLEURA OBTAINED BY THORACENTESISOrdering Facility: [facility] Address: [address] [place] [address] Performed By: #### L [id number], CCBF ####[facility] LABORATORYCLIA [id number] [address] WBC Manual cnt (Body fld) [#/Vol] 612 /uL Normal <1000 [facility] Comment on above: Order Comment: Speci men Type: SPECIMEN FROM PLEURA OBTAINED BY THORACENTESISOrdering Facility: [facility] Address: [address] [place] [address] Performed By: #### L [id number], CCBF ####[facility] LABORATORYCLIA [id number] [address] [facility] Bacteria Fld Culton 04-26-20 25 Bacteria identified Cx Nom (Body fld) CULTURE, BODY FLD: No growth 5 days GRAM STAIN: No organisms seen Few Polymorphonuclear leukocytes Normal [facility] Comment on above: Performed By: #### 6 11-4 ####[facility] LABORATORYCLIA [id number] [address] [place] Basic metabolic 2000 panelon 04-26-2025 Anion gap [Moles/Vol] 10 mmol/L Normal 8-15 [facility] Comment on above: Order Comment: Speci men Type: BLOOD SPECIMENOrdering Facility: [facility] Address: [address] [place] [address] Performed By: #### 2 885-2, 85336-4 ####[facility] LABORATORYCLIA [id number] [place] [address] [place] Calcium [Mass/Vol] 8.4 mg/dL Low 8.5-10.2 [facility] Comment on above: Order Comment: Speci men Type: BLOOD SPECIMENOrdering Facility: [facility] Address: [address] [place] [address] Performed By: #### 2 885-2, 16614-4 ####[facility] LABORATORYCLIA [id number] [place] [address] [place] Chloride [Moles/Vol] 95 mmol/L Low 98-107 [facility] Comment on above: Order Comment: Speci men Type: BLOOD SPECIMENOrdering Facility: [facility] Address: [address] [place] [address] Performed By: #### 2 885-2, 96653-0 ####[facility] LABORATORYCLIA [id number] [place] [address] [place] CO2 [Moles/Vol] 22 mmol/L Normal 22-30 [facility] Comment on above: Order Comment: Specsabino harper Type: BLOOD SPECIMENOrdering Facility: [facility] Address: [address] [place] [address] Performed By: #### 2 885-2, 27413-1 ####[facility] LABORATORYCLIA [id number] [address] [place] Creatinine [Mass/Vol] 1.06 mg/dL Normal 0.73-1.22 [facility] Comment on above: Order Comment: Speci men Type: BLOOD SPECIMENOrdering Facility: [facility] Address: [address] [place] [address] Performed By: #### 2 885-2, 53667-1 ####[facility] HOSPITALIA [id number] [address] Creatinine and Glomerular filtration rate.predicted panel (S/P/Bld) 83 mL/min/1.73m??? Normal >=60 [facility] Comment on above: Order Comment: Specsabino harper Type: BLOOD SPECIMENOrdering Facility: [facility] Address: [address] [place] [address] Result Comment: Autumn mated Glomerular Filtration Rate [...] actual GFR. Performed By: #### 2 885-2, 74326-5 ####[facility] LABORATORYCLIA [id number] [address] [place] Glucose [Mass/Vol] 127 mg/dL High 74-99 [facility] Comment on above: Order Comment: Virgilioi men Type: BLOOD SPECIMENOrdering Facility: [facility] Address: [address] [place] [address] Result Comment: The [place] Diabetes Association (ADA) provides guidance for cutoff [...] Standards of Medical Care in Diabetes 2016, [place] [employer]. Diabetes Care. 2016.39(Suppl 1). Performed By: #### 2 885-2, 65940-2 ####[facility] LABORATORYCLIA [id number] [place] [address] [place] Potassium [Moles/Vol] 3.8 mmol/L Normal 3.7-5.1 [facility] Comment on above: Order Comment: Speci men Type: BLOOD SPECIMENOrdering Facility: [facility] Address: [address] [place] [address] Performed By: #### 2 885-2, 65636-2 ####[facility] LABORATORYCLIA [id number] [place] [address] [place] Sodium [Moles/Vol] 127 mmol/L Low 136-144 [facility] Comment on above: Order Comment: Speci men Type: BLOOD SPECIMENOrdering Facility: [facility] Address: [address] [place] [address] Performed By: #### 2 885-2, 30690-0 ####[facility] LABORATORYCLIA [id number] [place] [address] [place] Urea nitrogen [Mass/Vol] 59 mg/dL High 9-24 [facility] Comment on above: Order Comment: Speci men Type: BLOOD SPECIMENOrdering Facility: [facility] Address: [address] [place] [address] Performed By: #### 2 885-2, 12385-8 ####[facility] LABORATORYCLIA [id number] [place] [address] [place] Anion gap [Moles/Vol] 6 mmol/L Low 8-15 [facility] Comment on above: Order Comment: Speci men Type: BLOOD SPECIMENOrdering Facility: [facility] Address: [address] [place] [address] Performed By: #### 2 4321-2 ####[facility]ORATORYCLIA [id number] [place] [address] [place] Calcium [Mass/Vol] 8.4 mg/dL Low 8.5-10.2 [facility] Comment on above: Order Comment: Speci men Type: BLOOD SPECIMENOrdering Facility: [facility] Address: [address] [place] [address] Performed By: #### 2 4321-2 ####[facility] LABORATORYCLIA [id number] [place] [address] [place] Chloride [Moles/Vol] 92 mmol/L Low 98-107 [facility] Comment on above: Order Comment: Speci men Type: BLOOD SPECIMENOrdering Facility: [facility] Address: [address] [place] [address] Performed By: #### 2 4321-2 ####[facility]ORATORYCLIA [id number] [place] [address] [place] CO2 [Moles/Vol] 24 mmol/L Normal 22-30 [facility] Comment on above: Order Comment: Speci men Type: BLOOD SPECIMENOrdering Facility: [facility] Address: [address] [place] [address] Performed By: #### 2 4321-2 ####[facility]ORATORYCLIA [id number] [place] [address] [place] Creatinine [Mass/Vol] 1.27 mg/dL High 0.73-1.22 [facility] Comment on above: Order Comment: Speci men Type: BLOOD SPECIMENOrdering Facility: [facility] Address: [address] [place] [address] Performed By: #### 2 4321-2 ####[facility] LABORATORYCLIA [id number] [place] [id number] [place] Creatinine and Glomerular filtration rate.predicted panel (S/P/Bld) 67 mL/min/1.73m??? Normal >=60 [facility] Comment on above: Order Comment: Sahil harper Type: BLOOD SPECIMENOrdering Facility: [facility] Address: [address] [place] [address] Result Comment: Autumn mated Glomerular Filtration Rate [...] By: #### 2 4321-2 ####[facility] HOSPITALIA [id number] [place] [address] [place] Glucose [Mass/Vol] 121 mg/dL High 74-99 [facility] Comment on above: Order Comment: Sahil harper Type: BLOOD SPECIMENOrdering Facility: [facility] Address: [address] [place] [address] Result Comment: The [place] Diabetes Association (ADA) provides guidance for cutoff [...] Standards of Medical Care in Diabetes 2016, [place] [employer]. Diabetes Care. 2016.39(Suppl 1). Performed By: #### 2 4321-2 ####[facility] LABORATORYCLIA [id number] [place] [id number] [place] Potassium [Moles/Vol] 4.2 mmol/L Normal 3.7-5.1 [facility] Comment on above: Order Comment: Speci men Type: BLOOD SPECIMENOrdering Facility: [facility] Address: [address] [place] [address] Performed By: #### 2 4321-2 ####[facility] LABORATORYCLIA [id number] [address] [place] Sodium [Moles/Vol] 122 mmol/L Low 136-144 [facility] Comment on above: Order Comment: Speci men Type: BLOOD SPECIMENOrdering Facility: [facility] Address: [address] [place] [address] Performed By: #### 2 4321-2 ####[facility] LABORATORYCLIA [id number] [address] [place] Urea nitrogen [Mass/Vol] 64 mg/dL High 9-24 [facility] Comment on above: Order Comment: Speci men Type: BLOOD SPECIMENOrdering Facility: [facility] Address: [address] [place] [address] Performed By: #### 2 4321-2 ####[facility] LABORATORYCLIA [id number] [address] [place] CASE MANAGEMon 04-26-2025 CASE MANAGEM Normal [facility] CBC panel Auto (Bld)on 04-26 Erythrocyte distribution width (RBC) [Ratio] 19.1 % High 11.5-15.0 [facility] Comment on above: Order Comment: Speci men Type: BLOOD SPECIMENOrdering Facility: [facility] Address: [address] [place] [address] Performed By: #### 5 8410-2 ####[facility] LABORATORYCLIA [id number] [address] [place] Hematocrit (Bld) [Volume fraction] 24.3 % Low 39.0-51.0 [facility] Comment on above: Order Comment: Speci men Type: BLOOD SPECIMENOrdering Facility: [facility] Address: [address] [place] [address] Performed By: #### 5 8410-2 ####[facility] LABORATORYCLIA [id number] [address] [facility] Hemoglobin (Bld) [Mass/Vol] 8.1 g/dL Low 13.0-17.0 [facility] Comment on above: Order Comment: Speci men Type: BLOOD SPECIMENOrdering Facility: [facility] Address: [address] [place] [address] Performed By: #### 5 8410-2 ####[facility] LABORATORYCLIA [id number] [address] [facility] MCH (RBC) [Entitic mass] 34.9 pg High 26.0-34.0 [facility] Comment on above: Order Comment: Speci men Type: BLOOD SPECIMENOrdering Facility: [facility] Address: [address] [place] [address] Performed By: #### 5 8410-2 ####[facility] LABORATORYCLIA [id number] [address] MCHC (RBC) [Mass/Vol] 33.3 g/dL Normal 30.5-36.0 [facility] Comment on above: Order Comment: Speci men Type: BLOOD SPECIMENOrdering Facility: [facility] Address: [address] [place] [address] Performed By: #### 5 8410-2 ####[facility] LABORATORYCLIA [id number] [address] STATES OF [facility] MCV (RBC) [Entitic vol] 104.7 fL High 80.0-100.0 [facility] Comment on above: Order Comment: Speci men Type: BLOOD SPECIMENOrdering Facility: [facility] Address: [address] [place] [address] Performed By: #### 5 8410-2 ####[facility] LABORATORYCLIA [id number] [address] OF [facility] Nucleated RBC (Bld) [#/Vol] 10*3/uL Normal <0.01 [facility] Comment on above: Order Comment: Speci men Type: BLOOD SPECIMENOrdering Facility: [facility] Address: [address] [place] [address] Performed By: #### 5 8410-2 ####[facility] LABORATORYCLIA [id number] [address] [place] Platelet mean volume (Bld) [Entitic vol] 10.3 fL Normal 9.0-12.7 [facility] Comment on above: Order Comment: Speci men Type: BLOOD SPECIMENOrdering Facility: [facility] Address: [address] [place] [address] Performed By: #### 5 8410-2 ####[facility] LABORATORYCLIA [id number] [address] [place] Platelets (Bld) [#/Vol] 79 10*3/uL Low 150-400 [facility] Comment on above: Order Comment: Speci men Type: BLOOD SPECIMENOrdering Facility: [facility] Address: [address] [place] [address] Performed By: #### 5 8410-2 ####[facility] LABORATORYCLIA [id number] [place] [address] [place] RBC (Bld) [#/Vol] 2.32 10*6/uL Low 4.20-6.00 [facility] Comment on above: Order Comment: Speci men Type: BLOOD SPECIMENOrdering Facility: [facility] Address: [address] [place] [address] Performed By: #### 5 8410-2 ####[facility] LABORATORYCLIA [id number] [place] [address] [place] WBC (Bld) [#/Vol] 5.73 10*3/uL Normal 3.70-11.00 [facility] Comment on above: Order Comment: Speci men Type: BLOOD SPECIMENOrdering Facility: [facility] Address: [address] [place] [address] Performed By: #### 5 8410-2 ####[facility] HOSPITALIA [id number] [place] [address] [place] CONSULTon 04-26-2025 CONSULT Normal [facility] CYTOLOGY NON-GYNon 5 AP DISCLAIMER Normal [facility] Comment on above: Order Comment: Speci men Type: SPECIMEN FROM PLEURA OBTAINED BY THORACENTESISOrdering Facility: [facility] Address: [address] [place] [address] Result Comment: Terence rosen Developed Test (LDT) Disclaimer:Performance characteristics of immunohistochemical, immunofluorescent, and chromogenic in-situ hybridization tests have been determined by the performing laboratory within [facility] Pathology and Laboratory Medicine Department ([facility], [facility], [facility], [facility], [facility], [facility], or [facility]) in a manner consistent with CLIA requirements. [...] By: #### C YTONON ####[facility] HOSPITALIA [id number] [address] [place] CASE REPORT Normal [facility] Comment on above: Order Comment: Speci men Type: SPECIMEN FROM PLEURA OBTAINED BY THORACENTESISOrdering Facility: [facility] Address: [address] [place] [address] Result Comment: [facility] Cytology Report Case: [id number] Provider: Nimco Ivey MD Collected: 04/26/2025 03:38 PMOrdering Location: [address] ORTH[facility]IC Received: 04/27/2025 07:04 AMPathologist: Bonnie Mendoza MDSpecimen: Pleural Cavity, Right Performed By: #### C YTONON ####[facility] LABORATORYCLIA [id number] [place] [address] [place] CLINICAL HISTORY pleural effusion Normal [facility] Comment on above: Order Comment: Speci men Type: SPECIMEN FROM PLEURA OBTAINED BY THORACENTESISOrdering Facility: [facility] Address: [address] [place] [address] Performed By: #### C YTONON ####[facility] LABORATORYCLIA [id number] [address] FINAL DIAGNOSIS Normal [facility] Comment on above: Order Comment: Speci men Type: SPECIMEN FROM PLEURA OBTAINED BY THORACENTESISOrdering Facility: [facility] Address: [address] [place] [address] Result Comment: A - Pleural Cavity, Right, Fluid. Negative for malignant cells.The following cell blocks were associated with this case:A1\X09\Cell Block, Formalin Fixed\X09\ at 1109 EDT Performed By: #### C YTONON ####[facility] LABORATORYCLIA [id number] [address] FINAL PERFORMING LAB Normal [facility] Comment on above: Order Comment: Speci men Type: SPECIMEN FROM PLEURA OBTAINED BY THORACENTESISOrdering Facility: [facility] Address: [address] [place] [address] Result Comment: Tech nical component, box order person screening performed at: [facility], [address] [place] [address] CLIA: [id number] interpretation performed at: [facility], [address] [place] [address] CLIA# [id number] Director: Dung Crooks MD Performed By: #### C YTONON ####[facility] LABORATORYCLIA [id number] [address] GROSS DESCRIPTION Normal [facility] Comment on above: Order Comment: Speci men Type: SPECIMEN FROM PLEURA OBTAINED BY THORACENTESISOrdering Facility: [facility] Address: [address] [place] [address] Result Comment: A. P leural Cavity, Right15 cc cloudy red fluid. ThinPrep and Cell Block prepared. Performed By: #### C YTONON ####[facility] LABORATORYCLIA [id number] [place] [address] [place] Fungus Spec Culton 5 Fungus identified Cx Nom (Unsp spec) CULTURE, FUNGAL: No Fungus isolated after 28 days Normal [facility] Comment on above: Performed By: #### 5 80-1, 19851-2 ####[facility] LABORATORYCLIA [id number] [place] [address] [place] Glucose Fld-mCncon 5 Glucose (Body fld) [Mass/Vol] 145 mg/dL Normal See Comment [facility] Comment on above: Order Comment: Speci men Type: FLUID SPECIMENOrdering Facility: [facility] Address: [address] [place] [address] Result Comment: Syno vial fluid: Synovial fluid [...] document C49A. MEGHNA Li: Clinical Laboratory Standards [place]: 2007. Performed By: #### 2 344-0, 2529-6, 1795-4 ####[facility] LABCLIA [id number] [place] [address] [place] LDH Fld-cCncon 04-26-2025 LDH (Body fld) [Catalytic activity/Vol] 112 U/L Normal See Comment [facility] Comment on above: Order Comment: Speci men Type: FLUID SPECIMENOrdering Facility: [facility] Address: [address] [place] [address] Result Comment: Pleu ral fluids: Pleural fluid [...] document C49A. MEGHNA Li: Clinical Laboratory Standards [place]: 2007.Reference: 2. Camila RANDLE, Adelso Giraldo. Body fluid analysis: clinical utility and applicability of published studies to guide interpretation of today's laboratory testing in serous fluids. Crit Rev Clin Lab Sci, 2013:50(4,5):107 to 124.Reference: 3. Sepideh M, Kushal A, Ibis RANDLE. Lactate dehydrogenase activity and its isoenzymes in serum and synovial fluid of patients with rheumatoid arthritis and osteoarthritis. J Rheumatol. 1992:19:529 to 533. Performed By: #### 2 344-0, 2529-6, 1795-4 ####[facility] LABCLIA [id number] [place] [address] [place] LDH SerPl-cCncon 04-26-2025 LDH [Catalytic activity/Vol] 204 U/L Normal 135-225 [facility] Comment on above: Order Comment: Speci men Type: BLOOD SPECIMENOrdering Facility: [facility] Address: [address] [place] [address] Performed By: #### 2 532-0 ####[facility] LABORATORYCLIA [id number] [place] [address] [place] MANUAL DIFFERENTIAL, BODY FL UIDon 04-26-2025 DIF TTL, BODY FLUID 100 cells counted Normal [facility] Comment on above: Order Comment: Speci men Type: SPECIMEN FROM PLEURA OBTAINED BY THORACENTESISOrdering Facility: [facility] Address: [address] [place] [address] Performed By: #### L [id number], CCBF ####[facility] LABORATORYCLIA [id number] [place] [address] [place] LYMPH%, BF 27 % Normal 18-36 [facility] Comment on above: Order Comment: Speci men Type: SPECIMEN FROM PLEURA OBTAINED BY THORACENTESISOrdering Facility: [facility] Address: [facility] [place] [address] Performed By: #### L [id number], CCBF ####[facility] LABORATORYCLIA [id number] [address] [place] MACRO%, BF 15 % Low 64-80 [facility] Comment on above: Order Comment: Speci men Type: SPECIMEN FROM PLEURA OBTAINED BY THORACENTESISOrdering Facility: [facility] Address: [address] [place] [address] Performed By: #### L [id number], CCBF ####[facility] LABORATORYCLIA [id number] [address] [place] %, BF 6 % High 0-2 [facility] Comment on above: Order Comment: Speci men Type: SPECIMEN FROM PLEURA OBTAINED BY THORACENTESISOrdering Facility: [facility] Address: [address] [place] [address] Performed By: #### L [id number], CCBF ####[facility] LABORATORYCLIA [id number] [address] MONO% BF 5 % Normal [facility] Comment on above: Order Comment: Speci men Type: SPECIMEN FROM PLEURA OBTAINED BY THORACENTESISOrdering Facility: [facility] Address: [address] [place] [address] Performed By: #### L [id number], CCBF ####[facility]ORATORYCLIA [id number] [place] [address] [place] NEUT%, BF 47 % High 0-1 [facility] Comment on above: Order Comment: Speci men Type: SPECIMEN FROM PLEURA OBTAINED BY THORACENTESISOrdering Facility: [facility] Address: [facility] [place] [address] Performed By: #### L [id number], CCBF ####[facility]ORATORYCLIA [id number] [address] Microorganism Spec Culton Microorganism identified Cx Nom (Unsp spec) CULTURE, AFB: No Acid Fast Bacilli isolated after 42 days AFB STAIN: No acid fast bacilli seen by fluorochrome stain Normal [facility] Comment on above: Performed By: #### 5 80-1, 47456-7 ####[facility] LABORATORYCLIA [id number] [place] [address] [place] Osmolality Uron 04-26-2025 Osmolality (U) [Osmolality] 406 mosm/kg Normal 50-1200 [facility] Comment on above: Order Comment: Speci men Type: URINE SPECIMENOrdering Facility: [facility] Address: [address] [place] [address] Performed By: #### 2 695-5, 40108-1 ####[facility] LABORATORYCLIA [id number] [place] [address] [place] Prot SerPl-mCncon 04-26-2025 Protein [Mass/Vol] 6.0 g/dL Low 6.3-8.0 [facility] Comment on above: Order Comment: Speci men Type: BLOOD SPECIMENOrdering Facility: [facility] Address: [address] [place] [address] Performed By: #### 2 885-2, 97017-2 ####[facility] LABORATORYCLIA [id number] [place] [address] [place] Sodium ?Tm Ur-sCncon 025 Sodium Unsp time (U) [Moles/Vol] <20 Normal 14-216 [facility] Comment on above: Order Comment: Speci men Type: URINE SPECIMENOrdering Facility: [facility] Address: [address] [place] [address] Performed By: #### 2 695-5, 13256-8 ####[facility] LABORATORYCLIA [id number] [place] [address] [place] THERAPY NTon 04-26-2025 THERAPY NT Normal [facility] THERAPY NT Normal [facility] XR CHEST 1V FRONTALon 2024 XR CHEST 1V FRONTAL Normal [facility] pH Fldon 04-26-2025 pH (Body fld) 8.20 [pH] Normal [facility] Comment on above: Order Comment: Speci men Type: SPECIMEN FROM PLEURA OBTAINED BY THORACENTESISOrdering Facility: [facility] Address: [address] [place] [address] Result Comment: A no rmal reference range has not been established for this body fluid. Performed By: #### 2 748-2 ####[facility] LABORATORYCLIA [id number] [address] [place] ALLIED HEALTHon 04-25-2025 ALLIED HEALTH Normal [facility] Bacteria Spec Resp Culton Bacteria identified Respiratory culture Nom (Unsp spec) Normal [facility] Comment on above: Performed By: #### 3 2355-0 ####[facility] LABORATORYCLIA [id number] [place] [address] [place] Basic metabolic 2000 panelon 04-25-2025 Anion gap [Moles/Vol] 9 mmol/L Normal 8-15 [facility] Comment on above: Order Comment: Speci men Type: BLOOD SPECIMENOrdering Facility: [facility] Address: [address] [place] [address] Performed By: #### 2 4323-8, 90165-3 ####[facility] LABORATORYCLIA [id number] [place] [address] [place] Calcium [Mass/Vol] 8.6 mg/dL Normal 8.5-10.2 [facility] Comment on above: Order Comment: Speci men Type: BLOOD SPECIMENOrdering Facility: [facility] Address: [address] [place] [address] Performed By: #### 2 4323-8, 41300-2 ####[facility] LABORATORYCLIA [id number] [place] [address] [place] Chloride [Moles/Vol] 90 mmol/L Low 98-107 [facility] Comment on above: Order Comment: Speci men Type: BLOOD SPECIMENOrdering Facility: [facility] Address: [address] [place] [address] Performed By: #### 2 4323-8, 53057-4 ####[facility] LABORATORYCLIA [id number] [place] [address] [place] CO2 [Moles/Vol] 24 mmol/L Normal 22-30 [facility] Comment on above: Order Comment: Speci men Type: BLOOD SPECIMENOrdering Facility: [facility] Address: [address] [place] [address] Performed By: #### 2 4323-8, ####[facility] LABORATORYCLIA [id number] [address] STATES OF [facility] Creatinine [Mass/Vol] 1.77 mg/dL High 0.73-1.22 [facility] Comment on above: Order Comment: Speci men Type: BLOOD SPECIMENOrdering Facility: [facility] Address: [address] [place] [address] Performed By: #### 2 432-8, ####[facility] LABORATORYCLIA [id number] [address] Creatinine and Glomerular filtration rate.predicted panel (S/P/Bld) 45 mL/min/1.73m??? Low >=60 [facility] Comment on above: Order Comment: Speci men Type: BLOOD SPECIMENOrdering Facility: [facility] Address: [address] [place] [address] Result Comment: Autumn mated Glomerular Filtration Rate [...] actual GFR. Performed By: #### 2 4323-8, 62851-0 ####[facility] LABORATORYCLIA [id number] [address] [place] Glucose [Mass/Vol] 128 mg/dL High 74-99 [facility] Comment on above: Order Comment: Speci men Type: BLOOD SPECIMENOrdering Facility: [facility] Address: [address] [place] [address] Result Comment: The [place] Diabetes Association (ADA) provides guidance for cutoff [...] Standards of Medical Care in Diabetes 2016, [place] [employer]. Diabetes Care. 2016.39(Suppl 1). Performed By: #### 2 4323-8, 37913-8 ####[facility] LABORATORYCLIA [id number] [place] [address] [place] Potassium [Moles/Vol] 3.3 mmol/L Low 3.7-5.1 [facility] Comment on above: Order Comment: Sahil men Type: BLOOD SPECIMENOrdering Facility: [facility] Address: [address] [place] [address] Performed By: #### 2 4323-8, 48624-9 ####[facility] LABORATORYCLIA [id number] [place] [address] [place] Sodium [Moles/Vol] 123 mmol/L Low 136-144 [facility] Comment on above: Order Comment: Speci men Type: BLOOD SPECIMENOrdering Facility: [facility] Address: [address] [place] [address] Performed By: #### 2 4323-8, 70550-6 ####[facility] LABORATORYCLIA [id number] [place] [address] [place] Urea nitrogen [Mass/Vol] 64 mg/dL High 9-24 [facility] Comment on above: Order Comment: Speci men Type: BLOOD SPECIMENOrdering Facility: [facility] Address: [address] [place] [address] Performed By: #### 2 4323-8, 84555-6 ####[facility] LABORATORYCLIA [id number] [address] CBC panel Auto (Bld)on 04-25 Erythrocyte distribution width (RBC) [Ratio] 19.2 % High 11.5-15.0 [facility] Comment on above: Order Comment: Speci men Type: BLOOD SPECIMENOrdering Facility: [facility] Address: [address] [place] [address] Performed By: #### 5 8410-2 ####[facility] LABORATORYCLIA [id number] [address] Hematocrit (Bld) [Volume fraction] 25.2 % Low 39.0-51.0 [facility] Comment on above: Order Comment: Speci men Type: BLOOD SPECIMENOrdering Facility: [facility] Address: [address] [place] [address] Performed By: #### 5 8410-2 ####[facility] LABORATORYCLIA [id number] [address] [place] Hemoglobin (Bld) [Mass/Vol] 8.4 g/dL Low 13.0-17.0 [facility] Comment on above: Order Comment: Speci men Type: BLOOD SPECIMENOrdering Facility: [facility] Address: [address] [place] [address] Performed By: #### 5 8410-2 ####[facility] LABORATORYCLIA [id number] [address] [place] MCH (RBC) [Entitic mass] 35.0 pg High 26.0-34.0 [facility] Comment on above: Order Comment: Speci men Type: BLOOD SPECIMENOrdering Facility: [facility] Address: [address] [place] [address] Performed By: #### 5 8410-2 ####[facility] LABORATORYCLIA [id number] [address] MCHC (RBC) [Mass/Vol] 33.3 g/dL Normal 30.5-36.0 [facility] Comment on above: Order Comment: Speci men Type: BLOOD SPECIMENOrdering Facility: [facility] Address: [address] [place] [address] Performed By: #### 5 8410-2 ####[facility] LABORATORYCLIA [id number] [address] [place] MCV (RBC) [Entitic vol] 105.0 fL High 80.0-100.0 [facility] Comment on above: Order Comment: Speci men Type: BLOOD SPECIMENOrdering Facility: [facility] Address: [address] [place] [address] Performed By: #### 5 8410-2 ####[facility] LABORATORYCLIA [id number] [address] Nucleated RBC (Bld) [#/Vol] 10*3/uL Normal <0.01 [facility] Comment on above: Order Comment: Speci men Type: BLOOD SPECIMENOrdering Facility: [facility] Address: [address] [place] [address] Performed By: #### 5 8410-2 ####[facility] LABORATORYCLIA [id number] [address] [facility] Platelet mean volume (Bld) [Entitic vol] 9.9 fL Normal 9.0-12.7 [facility] Comment on above: Order Comment: Speci men Type: BLOOD SPECIMENOrdering Facility: [facility] Address: [address] [place] [address] Performed By: #### 5 8410-2 ####[facility] LABORATORYCLIA [id number] [address] Platelets (Bld) [#/Vol] 84 10*3/uL Low 150-400 [facility] Comment on above: Order Comment: Speci men Type: BLOOD SPECIMENOrdering Facility: [facility] Address: [address] [place], [place] [address] Result Comment: No c lot detected. Performed By: #### 5 8410-2 ####[facility] LABORATORYCLIA [id number] [address] [facility] RBC (Bld) [#/Vol] 2.40 10*6/uL Low 4.20-6.00 [facility] Comment on above: Order Comment: Speci men Type: BLOOD SPECIMENOrdering Facility: [facility] Address: [address] [place] [address] Performed By: #### 5 8410-2 ####[facility] LABORATORYCLIA [id number] [address] [facility] WBC (Bld) [#/Vol] 6.32 10*3/uL Normal 3.70-11.00 [facility] Comment on above: Order Comment: Speci men Type: BLOOD SPECIMENOrdering Facility: [facility] Address: [address] [place] [address] Performed By: #### 5 8410-2 ####[facility] LABORATORYCLIA [id number] [address] [place] CONSULTon 04-25-2025 CONSULT Normal [facility] Comprehensive metabolic 2000 panelon 04-25-2025 Albumin [Mass/Vol] 2.8 g/dL Low 3.9-4.9 [facility] Comment on above: Order Comment: Speci men Type: BLOOD SPECIMENOrdering Facility: [facility] Address: [address] [place] [address] Performed By: #### 2 4323-8, 47680-1 ####[facility] LABORATORYCLIA [id number] [address] [place] ALP [Catalytic activity/Vol] 209 U/L High 38-113 [facility] Comment on above: Order Comment: Speci men Type: BLOOD SPECIMENOrdering Facility: [facility] Address: [address] [place] [address] Performed By: #### 2 4323-8, 55567-6 ####[facility]ORATORYCLIA [id number] [place] [address] [place] ALT With P-5'-P [Catalytic activity/Vol] 41 U/L Normal 10-54 [facility] Comment on above: Order Comment: Speci men Type: BLOOD SPECIMENOrdering Facility: [facility] Address: [address] [place] [address] Performed By: #### 2 4323-8, 18722-1 ####[facility] LABORATORYCLIA [id number] [address] [place] Anion gap [Moles/Vol] 13 mmol/L Normal 8-15 [facility] Comment on above: Order Comment: Speci men Type: BLOOD SPECIMENOrdering Facility: [facility] Address: [address] [place] [address] Performed By: #### 2 4323-8, 16797-6 ####[facility] LABORATORYCLIA [id number] [address] STATES OF [facility] AST With P-5'-P [Catalytic activity/Vol] 86 U/L High 14-40 [facility] Comment on above: Order Comment: Speci men Type: BLOOD SPECIMENOrdering Facility: [facility] Address: [address] [place] [address] Performed By: #### 2 4323-8, 71864-0 ####[facility] LABORATORYCLIA [id number] [place] [address] [place] Bilirubin [Mass/Vol] 9.4 mg/dL High 0.2-1.3 [facility] Comment on above: Order Comment: Speci men Type: BLOOD SPECIMENOrdering Facility: [facility] Address: [address] [place] [address] Performed By: #### 2 4323-8, 31661-8 ####[facility] LABORATORYCLIA [id number] [address] [place] Calcium [Mass/Vol] 8.5 mg/dL Normal 8.5-10.2 [facility] Comment on above: Order Comment: Speci men Type: BLOOD SPECIMENOrdering Facility: [facility] Address: [address] [place] [address] Performed By: #### 2 4323-8, 83049-6 ####[facility] LABORATORYCLIA [id number] [place] [id number] [place] Chloride [Moles/Vol] 91 mmol/L Low 98-107 [facility] Comment on above: Order Comment: Speci men Type: BLOOD SPECIMENOrdering Facility: [facility] Address: [address] [place] [address] Performed By: #### 2 4323-8, 02550-0 ####[facility] LABORATORYCLIA [id number] [place] [id number] [place] [place] CO2 [Moles/Vol] 22 mmol/L Normal 22-30 [facility] Comment on above: Order Comment: Speci men Type: BLOOD SPECIMENOrdering Facility: [facility] Address: [address] [place] [address] Performed By: #### 2 4323-8, 71979-0 ####[facility] LABORATORYCLIA [id number] [place] [address] [place] Creatinine [Mass/Vol] 1.73 mg/dL High 0.73-1.22 [facility] Comment on above: Order Comment: Speci men Type: BLOOD SPECIMENOrdering Facility: [facility] Address: [address] [place] [address] Performed By: #### 2 4323-8, 15762-2 ####[facility] LABORATORYCLIA [id number] [address] Creatinine and Glomerular filtration rate.predicted panel (S/P/Bld) 46 mL/min/1.73m??? Low >=60 [facility] Comment on above: Order Comment: Speci men Type: BLOOD SPECIMENOrdering Facility: [facility] Address: [address] [place] [address] Result Comment: Autumn mated Glomerular Filtration Rate [...] actual GFR. Performed By: #### 2 4323-8, 78039-1 ####[facility] LABORATORYCLIA [id number] [place] [address] [place] Glucose [Mass/Vol] 125 mg/dL High 74-99 [facility] Comment on above: Order Comment: Sahil harper Type: BLOOD SPECIMENOrdering Facility: [facility] Address: [address] [place] [address] Result Comment: The [place] Diabetes Association (ADA) provides guidance for cutoff [...] Standards of Medical Care in Diabetes 2016, [place] [employer]. Diabetes Care. 2016.39(Suppl 1). Performed By: #### 2 4323-8, 43364-1 ####[facility] LABORATORYCLIA [id number] [place] [address] [place] Potassium [Moles/Vol] 3.4 mmol/L Low 3.7-5.1 [facility] Comment on above: Order Comment: Sahil harper Type: BLOOD SPECIMENOrdering Facility: [facility] Address: [address] [place] [address] Performed By: #### 2 4323-8, 57777-8 ####[facility] LABORATORYCLIA [id number] [place] [address] [place] Protein [Mass/Vol] 5.8 g/dL Low 6.3-8.0 [facility] Comment on above: Order Comment: Speci men Type: BLOOD SPECIMENOrdering Facility: [facility] Address: [address] [place] [address] Performed By: #### 2 4323-8, 10313-8 ####[facility] LABORATORYCLIA [id number] [place] [id number] [place] Sodium [Moles/Vol] 126 mmol/L Low 136-144 [facility] Comment on above: Order Comment: Speci men Type: BLOOD SPECIMENOrdering Facility: [facility] Address: [address] [place] [address] Performed By: #### 2 4323-8, 06225-4 ####[facility] LABORATORYCLIA [id number] [place] [id number] [place] Urea nitrogen [Mass/Vol] 61 mg/dL High 9-24 [facility] Comment on above: Order Comment: Speci men Type: BLOOD SPECIMENOrdering Facility: [facility] Address: [address] [place] [address] Performed By: #### 2 4323-8, 67969-8 ####[facility] LABORATORYCLIA [id number] [place] [id number] [place] NUTRITIONon 04-25-2025 NUTRITION Normal [facility] Prot Fld-mCncon 04-25-2025 Protein (Body fld) [Mass/Vol] 2.2 g/dL Normal See Comment [facility] Comment on above: Order Comment: Speci men Type: FLUID SPECIMENOrdering Facility: [facility] Address: [address] [place] [address] Result Comment: Sero us fluids: Effusions are [...] document C49A. MEGHNA Li: Clinical Laboratory Standards [place]: 2007. Performed By: #### 2 881-1 ####[facility] LABCLIA [id number] [place] [address] [place] XR CHEST 1V FRONTALon 2024 XR CHEST 1V FRONTAL Normal [facility] ALLIED HEALTHon 04-24-2025 ALLIED HEALTH Normal [facility] Basic metabolic 2000 panelon 04-24-2025 Anion gap [Moles/Vol] 11 mmol/L Normal 8-15 [facility] Comment on above: Order Comment: Speci men Type: BLOOD SPECIMENOrdering Facility: [facility] Address: [address] [place] [address] Performed By: #### 2 4321-2 ####[facility] LABORATORYCLIA [id number] [place] [address] [place] Calcium [Mass/Vol] 7.9 mg/dL Low 8.5-10.2 [facility] Comment on above: Order Comment: Speci men Type: BLOOD SPECIMENOrdering Facility: [facility] Address: [address] [place] [address] Performed By: #### 2 4321-2 ####[facility] LABORATORYCLIA [id number] [place] [address] [place] Chloride [Moles/Vol] 95 mmol/L Low 98-107 [facility] Comment on above: Order Comment: Speci men Type: BLOOD SPECIMENOrdering Facility: [facility] Address: [address] [place] [address] Performed By: #### 2 4321-2 ####[facility] LABORATORYCLIA [id number] [place] [address] [place] CO2 [Moles/Vol] 22 mmol/L Normal 22-30 [facility] Comment on above: Order Comment: Speci men Type: BLOOD SPECIMENOrdering Facility: [facility] Address: [address] [place] [address] Performed By: #### 2 4321-2 ####[facility] LABORATORYCLIA [id number] [place] [id number] [place] Creatinine [Mass/Vol] 1.83 mg/dL High 0.73-1.22 [facility] Comment on above: Order Comment: Speci [facility] Type: BLOOD SPECIMENOrdering Facility: [facility] Address: [address] [place] [address] Performed By: #### 2 4321-2 ####[facility] LABORATORYCLIA [id number] [place] [id number] [facility] Creatinine and Glomerular filtration rate.predicted panel (S/P/Bld) 43 mL/min/1.73m??? Low >=60 [facility] Comment on above: Order Comment: Specsabino [facility] Type: BLOOD SPECIMENOrdering Facility: [facility] Address: [address] [place] [address] Result Comment: Autumn mated Glomerular Filtration Rate [...] actual GFR. Performed By: #### 2 4321-2 ####[facility] LABORATORYCLIA [id number] [place] [id number] [place] Glucose [Mass/Vol] 142 mg/dL High 74-99 [facility] Comment on above: Order Comment: Speci leroy Type: BLOOD SPECIMENOrdering Facility: [facility] Address: [address] [place] [address] Result Comment: The [place] Diabetes Association (ADA) provides guidance for cutoff [...] Standards of Medical Care in Diabetes 2016, [place] [employer]. Diabetes Care. 2016.39(Suppl 1). Performed By: #### 2 4321-2 ####[facility] LABORATORYCLIA [id number] [address] STATES OF [facility] Potassium [Moles/Vol] 3.6 mmol/L Low 3.7-5.1 [facility] Comment on above: Order Comment: Speci men Type: BLOOD SPECIMENOrdering Facility: [facility] Address: [address] [place] [address] Performed By: #### 2 4321-2 ####[facility] LABORATORYCLIA [id number] [address] STATES [facility] Sodium [Moles/Vol] 128 mmol/L Low 136-144 [facility] Comment on above: Order Comment: Speci men Type: BLOOD SPECIMENOrdering Facility: [facility] Address: [address] [place] [address] Performed By: #### 2 4321-2 ####[facility] LABORATORYCLIA [id number] [address] [place] Urea nitrogen [Mass/Vol] 64 mg/dL High 9-24 [facility] Comment on above: Order Comment: Speci men Type: BLOOD SPECIMENOrdering Facility: [facility] Address: [address] [place] [address] Performed By: #### 2 4321-2 ####[facility] LABORATORYCLIA [id number] [place] [address] [place] CASE MANAGEMon 04-24-2025 CASE MANAGEM Normal [facility] CBC panel Auto (Bld)on 04-24 Erythrocyte distribution width (RBC) [Ratio] 17.6 % High 11.5-15.0 [facility] Comment on above: Order Comment: Speci men Type: BLOOD SPECIMENOrdering Facility: [facility] Address: [address] [place] [address] Performed By: #### 5 8410-2 ####[facility] LABORATORYCLIA [id number] [address] Hematocrit (Bld) [Volume fraction] 21.4 % Low 39.0-51.0 [facility] Comment on above: Order Comment: Speci men Type: BLOOD SPECIMENOrdering Facility: [facility] Address: [address] [place] [address] Performed By: #### 5 8410-2 ####[facility] LABORATORYCLIA [id number] [address] OF [facility] Hemoglobin (Bld) [Mass/Vol] 7.1 g/dL Low 13.0-17.0 [facility] Comment on above: Order Comment: Speci men Type: BLOOD SPECIMENOrdering Facility: [facility] Address: [address] [place] [address] Performed By: #### 5 8410-2 ####[facility] LABORATORYCLIA [id number] [address] MCH (RBC) [Entitic mass] 36.0 pg High 26.0-34.0 [facility] Comment on above: Order Comment: Speci men Type: BLOOD SPECIMENOrdering Facility: [facility] Address: [address] [place] [address] Performed By: #### 5 8410-2 ####[facility] LABORATORYCLIA [id number] [address] STATES OF [facility] MCHC (RBC) [Mass/Vol] 33.2 g/dL Normal 30.5-36.0 [facility] Comment on above: Order Comment: Speci men Type: BLOOD SPECIMENOrdering Facility: [facility] Address: [address] [place] [address] Performed By: #### 5 8410-2 ####[facility] LABORATORYCLIA [id number] [address] MCV (RBC) [Entitic vol] 108.6 fL High 80.0-100.0 [facility] Comment on above: Order Comment: Speci men Type: BLOOD SPECIMENOrdering Facility: [facility] Address: [facility] [place] [address] Performed By: #### 5 8410-2 ####[facility] LABORATORYCLIA [id number] [address] [place] Nucleated RBC (Bld) [#/Vol] 10*3/uL Normal <0.01 [facility] Comment on above: Order Comment: Speci men Type: BLOOD SPECIMENOrdering Facility: [facility] Address: [address] [place] [address] Performed By: #### 5 8410-2 ####[facility] LABORATORYCLIA [id number] [address] [place] Platelet mean volume (Bld) [Entitic vol] 10.1 fL Normal 9.0-12.7 [facility] Comment on above: Order Comment: Speci men Type: BLOOD SPECIMENOrdering Facility: [facility] Address: [address] [place] [address] Performed By: #### 5 8410-2 ####[facility] LABORATORYCLIA [id number] [address] [place] Platelets (Bld) [#/Vol] 80 10*3/uL Low 150-400 [facility] Comment on above: Order Comment: Speci men Type: BLOOD SPECIMENOrdering Facility: [facility] Address: [address] [place] [address] Performed By: #### 5 8410-2 ####[facility] LABORATORYCLIA [id number] [place] [address] [place] RBC (Bld) [#/Vol] 1.97 10*6/uL Low 4.20-6.00 [facility] Comment on above: Order Comment: Speci men Type: BLOOD SPECIMENOrdering Facility: [facility] Address: [address] [place] [address] Performed By: #### 5 8410-2 ####[facility] LABORATORYCLIA [id number] [address] [place] WBC (Bld) [#/Vol] 6.36 10*3/uL Normal 3.70-11.00 [facility] Comment on above: Order Comment: Speci men Type: BLOOD SPECIMENOrdering Facility: [facility] Address: [address] [place] [address] Performed By: #### 5 8410-2 ####[facility] LABORATORYCLIA [id number] [address] [place] [address] CHEST WO IVCONon 04-24-[address] CHEST WO IVCON Normal [facility] THERAPY NTon 04-24-2025 THERAPY NT Normal [facility] TYPE + SCREENon 04-24-2025 ABO AB Normal [facility] Comment on above: Order Comment: Speci men Type: BLOOD SPECIMENOrdering Facility: [facility] Address: [address] [place] [address] Performed By: #### T SCR ####[facility] BLOOD BANKCLIA [id number] [address] [place] Rh Nom (Bld) Positive Normal [facility] Comment on above: Order Comment: Speci men Type: BLOOD SPECIMENOrdering Facility: [facility] Address: [address] [place] [address] Performed By: #### T SCR ####[facility] BLOOD BANKCLIA [id number] [address] TYPE AND SCREEN EXPIRATION 04/27/2025 23:59 Normal [facility] Comment on above: Order Comment: Speci men Type: BLOOD SPECIMENOrdering Facility: [facility] Address: [address] [place] [address] Performed By: #### T SCR ####[facility] BLOOD BANKCLIA [id number] [address] [place] XR CHEST 1V FRONTALon 2024 XR CHEST 1V FRONTAL Normal [facility] Basic metabolic 2000 panelon 04-23-2025 Anion gap [Moles/Vol] 11 mmol/L Normal 8-15 [facility] Comment on above: Order Comment: Speci men Type: BLOOD SPECIMENOrdering Facility: [facility] Address: [address] [place] [address] Performed By: #### 2 4321-2 ####[facility] LABORATORYCLIA [id number] [place] [address] [place] Calcium [Mass/Vol] 8.5 mg/dL Normal 8.5-10.2 [facility] Comment on above: Order Comment: Speci men Type: BLOOD SPECIMENOrdering Facility: [facility] Address: [address] [place] [address] Performed By: #### 2 4321-2 ####[facility] LABORATORYCLIA [id number] [place] [address] [place] Chloride [Moles/Vol] 88 mmol/L Low 98-107 [facility] Comment on above: Order Comment: Speci men Type: BLOOD SPECIMENOrdering Facility: [facility] Address: [address] [place] [address] Performed By: #### 2 4321-2 ####[facility] LABORATORYCLIA [id number] [place] [address] [place] CO2 [Moles/Vol] 26 mmol/L Normal 22-30 [facility] Comment on above: Order Comment: Speci men Type: BLOOD SPECIMENOrdering Facility: [facility] Address: [address] [place] [address] Performed By: #### 2 4321-2 ####[facility] LABORATORYCLIA [id number] [place] [address] [place] Creatinine [Mass/Vol] 2.36 mg/dL High 0.73-1.22 [facility] Comment on above: Order Comment: Speci men Type: BLOOD SPECIMENOrdering Facility: [facility] Address: [address] [place] [address] Performed By: #### 2 4321-2 ####[facility] LABORATORYCLIA [id number] [place] [address] [place] Creatinine and Glomerular filtration rate.predicted panel (S/P/Bld) 32 mL/min/1.73m??? Low >=60 [facility] Comment on above: Order Comment: Sahli harper Type: BLOOD SPECIMENOrdering Facility: [facility] Address: [address] [place] [address] Result Comment: Autumn mated Glomerular Filtration Rate [...] actual GFR. Performed By: #### 2 4321-2 ####[facility] LABORATORYCLIA [id number] [place] [address] [place] Glucose [Mass/Vol] 157 mg/dL High 74-99 [facility] Comment on above: Order Comment: Sahil harper Type: BLOOD SPECIMENOrdering Facility: [facility] Address: [address] [place] [address] Result Comment: The [place] Diabetes Association (ADA) provides guidance for cutoff [...] Standards of Medical Care in Diabetes 2016, [place] [employer]. Diabetes Care. 2016.39(Suppl 1). Performed By: #### 2 4321-2 ####[facility] LABORATORYCLIA [id number] [place] [address] [place] Potassium [Moles/Vol] 3.8 mmol/L Normal 3.7-5.1 [facility] Comment on above: Order Comment: Speci men Type: BLOOD SPECIMENOrdering Facility: [facility] Address: [address] [place] [address] Performed By: #### 2 4321-2 ####[facility] LABORATORYCLIA [id number] [place] [address] [place] Sodium [Moles/Vol] 125 mmol/L Low 136-144 [facility] Comment on above: Order Comment: Speci men Type: BLOOD SPECIMENOrdering Facility: [facility] Address: [address] [place] [address] Performed By: #### 2 4321-2 ####[facility] LABORATORYCLIA [id number] [place] [address] [place] Urea nitrogen [Mass/Vol] 51 mg/dL High 9-24 [facility] Comment on above: Order Comment: Speci men Type: BLOOD SPECIMENOrdering Facility: [facility] Address: [address] [place] [address] Performed By: #### 2 4321-2 ####[facility] LABORATORYCLIA [id number] [place] [address] [place] Anion gap [Moles/Vol] 11 mmol/L Normal 8-15 [facility] Comment on above: Order Comment: Speci men Type: BLOOD SPECIMENOrdering Facility: [facility] Address: [address] [place] [address] Performed By: #### 2 4321-2 ####[facility] LABORATORYCLIA [id number] [place] [address] [place] Calcium [Mass/Vol] 8.7 mg/dL Normal 8.5-10.2 [facility] Comment on above: Order Comment: Speci men Type: BLOOD SPECIMENOrdering Facility: [facility] Address: [address] [place] [address] Performed By: #### 2 4321-2 ####[facility] LABORATORYCLIA [id number] [place] [address] [place] Chloride [Moles/Vol] 88 mmol/L Low 98-107 [facility] Comment on above: Order Comment: Speci men Type: BLOOD SPECIMENOrdering Facility: [facility] Address: [address] [place] [address] Performed By: #### 2 4321-2 ####[facility] LABORATORYCLIA [id number] [address] [place] CO2 [Moles/Vol] 26 mmol/L Normal 22-30 [facility] Comment on above: Order Comment: Speci men Type: BLOOD SPECIMENOrdering Facility: [facility] Address: [address] [place] [address] Performed By: #### 2 4321-2 ####[facility] LABORATORYCLIA [id number] [address] STATES OF [facility] Creatinine [Mass/Vol] 2.32 mg/dL High 0.73-1.22 [facility] Comment on above: Order Comment: Speci men Type: BLOOD SPECIMENOrdering Facility: [facility] Address: [address] [place] [address] Performed By: #### 2 4321-2 ####[facility] LABORATORYCLIA [id number] [address] Creatinine and Glomerular filtration rate.predicted panel (S/P/Bld) 33 mL/min/1.73m??? Low >=60 [facility] Comment on above: Order Comment: Speci men Type: BLOOD SPECIMENOrdering Facility: [facility] Address: [address] [place] [address] Result Comment: Autumn mated Glomerular Filtration Rate [...] actual GFR. Performed By: #### 2 4321-2 ####[facility] LABORATORYCLIA [id number] [address] [place] Glucose [Mass/Vol] 122 mg/dL High 74-99 [facility] Comment on above: Order Comment: Speci men Type: BLOOD SPECIMENOrdering Facility: [facility] Address: [address] [place] [id number] Result Comment: The [place] Diabetes Association (ADA) provides guidance for cutoff [...] Standards of Medical Care in Diabetes 2016, [place] [employer]. Diabetes Care. 2016.39(Suppl 1). Performed By: #### 2 4321-2 ####[facility] LABORATORYCLIA [id number] [place] [address] [place] Potassium [Moles/Vol] 3.9 mmol/L Normal 3.7-5.1 [facility] Comment on above: Order Comment: Virgilioi men Type: BLOOD SPECIMENOrdering Facility: [facility] Address: [address] [place] [address] Performed By: #### 2 4321-2 ####[facility] LABORATORYCLIA [id number] [place] [address] [place] Sodium [Moles/Vol] 125 mmol/L Low 136-144 [facility] Comment on above: Order Comment: Speci men Type: BLOOD SPECIMENOrdering Facility: [facility] Address: [address] [place] [id number] Performed By: #### 2 4321-2 ####[facility] LABORATORYCLIA [id number] [place] [address] [place] Urea nitrogen [Mass/Vol] 59 mg/dL High 9-24 [facility] Comment on above: Order Comment: Speci men Type: BLOOD SPECIMENOrdering Facility: [facility] Address: [address] [place] [address] Performed By: #### 2 4321-2 ####[facility] LABORATORYCLIA [id number] [address] [place] CBC panel Auto (Bld)on 04-23 Erythrocyte distribution width (RBC) [Ratio] 17.5 % High 11.5-15.0 [facility] Comment on above: Order Comment: Speci men Type: BLOOD SPECIMENOrdering Facility: [facility] Address: [address] [place] [address] Performed By: #### 5 8410-2 ####[facility] LABORATORYCLIA [id number] [address] Hematocrit (Bld) [Volume fraction] 23.1 % Low 39.0-51.0 [facility] Comment on above: Order Comment: Speci men Type: BLOOD SPECIMENOrdering Facility: [facility] Address: [address] [place] [address] Performed By: #### 5 8410-2 ####[facility] LABORATORYCLIA [id number] [address] [place] Hemoglobin (Bld) [Mass/Vol] 7.3 g/dL Low 13.0-17.0 [facility] Comment on above: Order Comment: Speci men Type: BLOOD SPECIMENOrdering Facility: [facility] Address: [address] [place] [address] Performed By: #### 5 8410-2 ####[facility] LABORATORYCLIA [id number] [address] [place] MCH (RBC) [Entitic mass] 35.1 pg High 26.0-34.0 [facility] Comment on above: Order Comment: Speci men Type: BLOOD SPECIMENOrdering Facility: [facility] Address: [address] [place] [address] Performed By: #### 5 8410-2 ####[facility] LABORATORYCLIA [id number] [address] [place] MCHC (RBC) [Mass/Vol] 31.6 g/dL Normal 30.5-36.0 [facility] Comment on above: Order Comment: Speci men Type: BLOOD SPECIMENOrdering Facility: [facility] Address: [address] [place] [address] Performed By: #### 5 8410-2 ####[facility] LABORATORYCLIA [id number] [address] MCV (RBC) [Entitic vol] 111.1 fL High 80.0-100.0 [facility] Comment on above: Order Comment: Speci men Type: BLOOD SPECIMENOrdering Facility: [facility] Address: [address] [place] [address] Performed By: #### 5 8410-2 ####[facility] LABORATORYCLIA [id number] [address] Nucleated RBC (Bld) [#/Vol] 10*3/uL Normal <0.01 [facility] Comment on above: Order Comment: Speci men Type: BLOOD SPECIMENOrdering Facility: [facility] Address: [address] [place] [address] Performed By: #### 5 8410-2 ####[facility] LABORATORYCLIA [id number] [address] Platelet mean volume (Bld) [Entitic vol] 9.7 fL Normal 9.0-12.7 [facility] Comment on above: Order Comment: Speci men Type: BLOOD SPECIMENOrdering Facility: [facility] Address: [address] [place] [address] Performed By: #### 5 8410-2 ####[facility] LABORATORYCLIA [id number] [address] Platelets (Bld) [#/Vol] 79 10*3/uL Low 150-400 [facility] Comment on above: Order Comment: Speci men Type: BLOOD SPECIMENOrdering Facility: [facility] Address: [address] [place] [address] Performed By: #### 5 8410-2 ####[facility] LABORATORYCLIA [id number] [address] [place] RBC (Bld) [#/Vol] 2.08 10*6/uL Low 4.20-6.00 [facility] Comment on above: Order Comment: Speci men Type: BLOOD SPECIMENOrdering Facility: [facility] Address: [address] [place] [address] Performed By: #### 5 8410-2 ####[facility] LABORATORYCLIA [id number] [address] [place] WBC (Bld) [#/Vol] 5.99 10*3/uL Normal 3.70-11.00 [facility] Comment on above: Order Comment: Speci men Type: BLOOD SPECIMENOrdering Facility: [facility] Address: [address] [place] [address] Performed By: #### 5 8410-2 ####[facility] LABORATORYCLIA [id number] [address] [place] Erythrocyte distribution width (RBC) [Ratio] 17.7 % High 11.5-15.0 [facility] Comment on above: Order Comment: Speci men Type: BLOOD SPECIMENOrdering Facility: [facility] Address: [address] [place] [address] Performed By: #### 5 8410-2 ####[facility] LABORATORYCLIA [id number] [address] [place] Hematocrit (Bld) [Volume fraction] 22.8 % Low 39.0-51.0 [facility] Comment on above: Order Comment: Speci men Type: BLOOD SPECIMENOrdering Facility: [facility] Address: [address] [place] [address] Performed By: #### 5 8410-2 ####[facility] LABORATORYCLIA [id number] [address] [place] Hemoglobin (Bld) [Mass/Vol] 7.4 g/dL Low 13.0-17.0 [facility] Comment on above: Order Comment: Speci men Type: BLOOD SPECIMENOrdering Facility: [facility] Address: [address] [place] [address] Performed By: #### 5 8410-2 ####[facility] LABORATORYCLIA [id number] [address] MCH (RBC) [Entitic mass] 35.7 pg High 26.0-34.0 [facility] Comment on above: Order Comment: Speci men Type: BLOOD SPECIMENOrdering Facility: [facility] Address: [address] [place] [address] Performed By: #### 5 8410-2 ####[facility] LABORATORYCLIA [id number] [address] MCHC (RBC) [Mass/Vol] 32.5 g/dL Normal 30.5-36.0 [facility] Comment on above: Order Comment: Speci men Type: BLOOD SPECIMENOrdering Facility: [facility] Address: [address] [place] [address] Performed By: #### 5 8410-2 ####[facility] LABORATORYCLIA [id number] [address] MCV (RBC) [Entitic vol] 110.1 fL High 80.0-100.0 [facility] Comment on above: Order Comment: Speci men Type: BLOOD SPECIMENOrdering Facility: [facility] Address: [address] [place] [address] Performed By: #### 5 8410-2 ####[facility] LABORATORYCLIA [id number] [address] Nucleated RBC (Bld) [#/Vol] 10*3/uL Normal <0.01 [facility] Comment on above: Order Comment: Speci men Type: BLOOD SPECIMENOrdering Facility: [facility] Address: [address] [place] [address] Performed By: #### 5 8410-2 ####[facility] LABORATORYCLIA [id number] [address] Platelet mean volume (Bld) [Entitic vol] 9.7 fL Normal 9.0-12.7 [facility] Comment on above: Order Comment: Speci men Type: BLOOD SPECIMENOrdering Facility: [facility] Address: [address] [place] [address] Performed By: #### 5 8410-2 ####[facility] LABORATORYCLIA [id number] [address] [place] Platelets (Bld) [#/Vol] 88 10*3/uL Low 150-400 [facility] Comment on above: Order Comment: Speci men Type: BLOOD SPECIMENOrdering Facility: [facility] Address: [address] [place] [address] Result Comment: No c lot detected. Performed By: #### 5 8410-2 ####[facility] LABORATORYCLIA [id number] [address] RBC (Bld) [#/Vol] 2.07 10*6/uL Low 4.20-6.00 [facility] Comment on above: Order Comment: Speci men Type: BLOOD SPECIMENOrdering Facility: [facility] Address: [address] [place] [address] Performed By: #### 5 8410-2 ####[facility] LABORATORYCLIA [id number] [address] [place] WBC (Bld) [#/Vol] 7.43 10*3/uL Normal 3.70-11.00 [facility] Comment on above: Order Comment: Speci men Type: BLOOD SPECIMENOrdering Facility: [facility] Address: [address] [place] [address] Performed By: #### 5 8410-2 ####[facility] LABORATORYCLIA [id number] [address] CONSULT PROGon 04-23-2025 CONSULT PROG Normal [facility] Creatinine Unsp time (U) [Ma ss/Vol]on 04-23-2025 Creatinine (U) [Mass/Vol] 120.8 mg/dL Normal 46.8-314.5 [facility] Comment on above: Order Comment: Speci men Type: URINE SPECIMENOrdering Facility: [facility] Address: [address] [place] [address] Performed By: #### 3 5674-1, 80711-1 ####[facility] LABORATORYCLIA [id number] [address] [facility] NURSING PROGon 04-23-2025 NURSING PROG Normal [facility] NURSING PROG Normal [facility] Sodium ?Tm Ur-sCncon 025 Sodium Unsp time (U) [Moles/Vol] <20 Normal 14-216 [facility] Comment on above: Order Comment: Speci men Type: URINE SPECIMENOrdering Facility: [facility] Address: [address] [place] [address] Performed By: #### 3 5674-1, 79879-3 ####[facility] LABORATORYCLIA [id number] [address] THERAPY NTon 04-23-2025 THERAPY NT Normal [facility] XR CHEST 1V FRONTALon 2024 XR CHEST 1V FRONTAL Normal [facility] Ammonia Plas-sCncon 04-22-20 25 Ammonia (P) [Moles/Vol] 21 umol/L Normal 16-60 [facility] Comment on above: Order Comment: Speci men Type: BLOOD SPECIMENOrdering Facility: [facility] Address: [address] [place] [address] Performed By: #### 1 6362-6 ####[facility] LABORATORYCLIA [id number] [address] [place] Basic metabolic 2000 panelon 04-22-2025 Anion gap [Moles/Vol] 15 mmol/L Normal 8-15 [facility] Comment on above: Order Comment: Speci men Type: BLOOD SPECIMENOrdering Facility: [facility] Address: [address] [place] [address] Performed By: #### 2 4321-2, 50425-6 ####[facility] LABORATORYCLIA [id number] [place] [address] [place] Calcium [Mass/Vol] 8.9 mg/dL Normal 8.5-10.2 [facility] Comment on above: Order Comment: Speci men Type: BLOOD SPECIMENOrdering Facility: [facility] Address: [address] [place] [address] Performed By: #### 2 4321-2, 94240-4 ####[facility] LABORATORYCLIA [id number] [place] [address] [place] Chloride [Moles/Vol] 88 mmol/L Low 98-107 [facility] Comment on above: Order Comment: Speci men Type: BLOOD SPECIMENOrdering Facility: [facility] Address: [address] [place] [address] Performed By: #### 2 4321-2, 14863-3 ####[facility] LABORATORYCLIA [id number] [address] [place] CO2 [Moles/Vol] 24 mmol/L Normal 22-30 [facility] Comment on above: Order Comment: Speci men Type: BLOOD SPECIMENOrdering Facility: [facility] Address: [address] [place] [address] Performed By: #### 2 4321-2, 76652-6 ####[facility] LABORATORYCLIA [id number] [place] [address] [place] Creatinine [Mass/Vol] 1.41 mg/dL High 0.73-1.22 [facility] Comment on above: Order Comment: Speci men Type: BLOOD SPECIMENOrdering Facility: [facility] Address: [address] [place] [address] Performed By: #### 2 4321-2, 03704-9 ####[facility] LABORATORYCLIA [id number] [address] Creatinine and Glomerular filtration rate.predicted panel (S/P/Bld) 59 mL/min/1.73m??? Low >=60 [facility] Comment on above: Order Comment: Speci men Type: BLOOD SPECIMENOrdering Facility: [facility] Address: [address] [place] [address] Result Comment: Autumn mated Glomerular Filtration Rate [...] actual GFR. Performed By: #### 2 4321-2, 50807-1 ####[facility] LABORATORYCLIA [id number] [place] [address] [place] Glucose [Mass/Vol] 117 mg/dL High 74-99 [facility] Comment on above: Order Comment: Sahil harper Type: BLOOD SPECIMENOrdering Facility: [facility] Address: [address] [place] [address] Result Comment: The [place] [employer] (ADA) provides guidance for cutoff [...] Standards of Medical Care in Diabetes 2016, [place] [employer]. Diabetes Care. 2016.39(Suppl 1). Performed By: #### 2 4321-2, 88409-1 ####[facility] LABORATORYCLIA [id number] [place] [address] [place] Potassium [Moles/Vol] 3.8 mmol/L Normal 3.7-5.1 [facility] Comment on above: Order Comment: Sahil harper Type: BLOOD SPECIMENOrdering Facility: [facility] Address: [address] [place] [place] [id number] Performed By: #### 2 4321-2, 97641-6 ####[facility] LABORATORYCLIA [id number] [place], [place] [address] [place] [address] [place] Sodium [Moles/Vol] 127 mmol/L Low 136-144 [facility] Comment on above: Order Comment: Speci men Type: BLOOD SPECIMENOrdering Facility: [facility] Address: [address] [place] [address] Performed By: #### 2 4321-2, 05854-5 ####[facility] LABORATORYCLIA [id number] [address] [place] Urea nitrogen [Mass/Vol] 48 mg/dL High 9-24 [facility] Comment on above: Order Comment: Speci men Type: BLOOD SPECIMENOrdering Facility: [facility] Address: [address] [place] [address] Performed By: #### 2 4321-2, 98084-7 ####[facility] LABORATORYCLIA [id number] [address] STATES OF [facility] CBC panel Auto (Bld)on 04-22 Erythrocyte distribution width (RBC) [Ratio] 17.9 % High 11.5-15.0 [facility] Comment on above: Order Comment: Speci men Type: BLOOD SPECIMENOrdering Facility: [facility] Address: [address] [place] [address] Performed By: #### 5 8410-2 ####[facility] LABORATORYCLIA [id number] [address] [place] Hematocrit (Bld) [Volume fraction] 28.9 % Low 39.0-51.0 [facility] Comment on above: Order Comment: Speci men Type: BLOOD SPECIMENOrdering Facility: [facility] Address: [address] [place] [address] Performed By: #### 5 8410-2 ####[facility] LABORATORYCLIA [id number] [address] [place] Hemoglobin (Bld) [Mass/Vol] 9.2 g/dL Low 13.0-17.0 [facility] Comment on above: Order Comment: Speci men Type: BLOOD SPECIMENOrdering Facility: [facility] Address: [address] [place] [address] Performed By: #### 5 8410-2 ####[facility] LABORATORYCLIA [id number] [address] MCH (RBC) [Entitic mass] 35.8 pg High 26.0-34.0 [facility] Comment on above: Order Comment: Speci men Type: BLOOD SPECIMENOrdering Facility: [facility] Address: [address] [place] [address] Performed By: #### 5 8410-2 ####[facility] LABORATORYCLIA [id number] [address] MCHC (RBC) [Mass/Vol] 31.8 g/dL Normal 30.5-36.0 [facility] Comment on above: Order Comment: Speci men Type: BLOOD SPECIMENOrdering Facility: [facility] Address: [address] [place] [address] Performed By: #### 5 8410-2 ####[facility] LABORATORYCLIA [id number] [address] MCV (RBC) [Entitic vol] 112.5 fL High 80.0-100.0 [facility] Comment on above: Order Comment: Speci men Type: BLOOD SPECIMENOrdering Facility: [facility] Address: [address] [place] [address] Performed By: #### 5 8410-2 ####[facility] LABORATORYCLIA [id number] [address] Nucleated RBC (Bld) [#/Vol] 10*3/uL Normal <0.01 [facility] Comment on above: Order Comment: Speci men Type: BLOOD SPECIMENOrdering Facility: [facility] Address: [address] [place] [address] Performed By: #### 5 8410-2 ####[facility] LABORATORYCLIA [id number] [place] [address] Platelet mean volume (Bld) [Entitic vol] 9.6 fL Normal 9.0-12.7 [facility] Comment on above: Order Comment: Speci men Type: BLOOD SPECIMENOrdering Facility: [facility] Address: [address] [place] [address] Performed By: #### 5 8410-2 ####[facility] LABORATORYCLIA [id number] [place] [address] [place] Platelets (Bld) [#/Vol] 110 10*3/uL Low 150-400 [facility] Comment on above: Order Comment: Speci men Type: BLOOD SPECIMENOrdering Facility: [facility] Address: [address] [place] [address] Performed By: #### 5 8410-2 ####[facility] LABORATORYCLIA [id number] [address] STATES OF [facility] RBC (Bld) [#/Vol] 2.57 10*6/uL Low 4.20-6.00 [facility] Comment on above: Order Comment: Speci men Type: BLOOD SPECIMENOrdering Facility: [facility] Address: [address] [place] [address] Performed By: #### 5 8410-2 ####[facility] LABORATORYCLIA [id number] [address] [place] WBC (Bld) [#/Vol] 11.09 10*3/uL High 3.70-11.00 [facility] Comment on above: Order Comment: Speci men Type: BLOOD SPECIMENOrdering Facility: [facility] Address: [address] [place] [address] Performed By: #### 5 8410-2 ####[facility] LABORATORYCLIA [id number] [address] [facility] CONSULT PROGon 04-22-2025 CONSULT PROG Normal [facility] Hepatic function 2000 panelo n 04-22-2025 Albumin [Mass/Vol] 3.4 g/dL Low 3.9-4.9 [facility] Comment on above: Order Comment: Speci men Type: BLOOD SPECIMENOrdering Facility: [facility] Address: [address] [place] [address] Performed By: #### 2 4320-2, 82982-4 ####[facility] LABORATORYCLIA [id number] [address] ALP [Catalytic activity/Vol] 246 U/L High 38-113 [facility] Comment on above: Order Comment: Speci men Type: BLOOD SPECIMENOrdering Facility: [facility] Address: [address] [place] [address] Performed By: #### 2 4320-2, 09476-9 ####[facility] LABORATORYCLIA [id number] [address] [place] ALT With P-5'-P [Catalytic activity/Vol] 57 U/L High 10-54 [facility] Comment on above: Order Comment: Speci men Type: BLOOD SPECIMENOrdering Facility: [facility] Address: [address] [place] [address] Performed By: #### 2 4320-12, 13789-6 ####[facility] LABORATORYCLIA [id number] [address] AST With P-5'-P [Catalytic activity/Vol] 109 U/L High 14-40 [facility] Comment on above: Order Comment: Speci men Type: BLOOD SPECIMENOrdering Facility: [facility] Address: [address] [place] [address] Performed By: #### 2 4320-2, 48859-3 ####[facility] LABORATORYCLIA [id number] [address] [place] Bilirubin [Mass/Vol] 10.4 mg/dL High 0.2-1.3 [facility] Comment on above: Order Comment: Speci men Type: BLOOD SPECIMENOrdering Facility: [facility] Address: [address] [place] [address] Performed By: #### 2 4320-2, 10775-5 ####[facility] LABORATORYCLIA [id number] [address] STATES OF [facility] Bilirubin.conjugated [Mass/Vol] 5.0 mg/dL High <0.3 [facility] Comment on above: Order Comment: Sahil harper Type: BLOOD SPECIMENOrdering Facility: [facility] Address: [address] [place] [address] Performed By: #### 2 4321-2, 38005-3 ####[facility] LABORATORYCLIA [id number] [address] [facility] Protein [Mass/Vol] 6.5 g/dL Normal 6.3-8.0 [facility] Comment on above: Order Comment: Sahil harper Type: BLOOD SPECIMENOrdering Facility: [facility] Address: [address] [place] [address] Performed By: #### 2 4321-2, 60573-5 ####[facility] LABORATORYCLIA [id number] [address] STATES OF [facility] PT panel Coag (PPP)on 2024 INR Coag (PPP) [Relative time] 1.5 {INR} High 0.9-1.3 [facility] Comment on above: Order Comment: Sahil harper Type: BLOOD SPECIMENOrdering Facility: [facility] Address: [address] [place] [address] Result Comment: Erum min K Antagonist (VKA) Therapeutic Range: INR 2 to 3 (Target INR of 2.5)Note: For patients treated with VKA drugs, such as warfarin, the [place] [employer] 2012 Guideline recommends [...] of 2.5 to 3.5 (target INR of 3).Guyatt GH, et al. Chest 2012, 141:7S-47SDario RA, et al. [facility] 2017, 70: 252-289 Performed By: #### 3 4528-0 ####[facility] LABORATORYCLIA [id number] [address] [place] PT Coag (PPP) [Time] 15.9 s High 9.7-13.0 [facility] Comment on above: Order Comment: Speci men Type: BLOOD SPECIMENOrdering Facility: [facility] Address: [address] [place] [address] Performed By: #### 3 4528-0 ####[facility] LABORATORYCLIA [id number] [address] [facility] THERAPY NTon 04-22-2025 THERAPY NT Normal [facility] XR CHEST 1V FRONTALon 2024 XR CHEST 1V FRONTAL Normal [facility] Basic metabolic 2000 panelon 04-21-2025 Anion gap [Moles/Vol] 10 mmol/L Normal 8-15 [facility] Comment on above: Order Comment: Speci men Type: BLOOD SPECIMENOrdering Facility: [facility] Address: [address] [place] [address] Performed By: #### 2 4321-2 ####[facility] LABORATORYCLIA [id number] [address] STATES OF [facility] Calcium [Mass/Vol] 8.7 mg/dL Normal 8.5-10.2 [facility] Comment on above: Order Comment: Speci men Type: BLOOD SPECIMENOrdering Facility: [facility] Address: [address] [place] [address] Performed By: #### 2 4321-2 ####[facility] LABORATORYCLIA [id number] [address] [place] Chloride [Moles/Vol] 91 mmol/L Low 98-107 [facility] Comment on above: Order Comment: Speci men Type: BLOOD SPECIMENOrdering Facility: [facility] Address: [address] [place] [address] Performed By: #### 2 4321-2 ####[facility] LABORATORYCLIA [id number] [address] STATES [facility] CO2 [Moles/Vol] 26 mmol/L Normal 22-30 [facility] Comment on above: Order Comment: Speci men Type: BLOOD SPECIMENOrdering Facility: [facility] Address: [address] [place] [address] Performed By: #### 2 4321-2 ####[facility] LABORATORYCLIA [id number] [address] [place] Creatinine [Mass/Vol] 1.33 mg/dL High 0.73-1.22 [facility] Comment on above: Order Comment: Speci men Type: BLOOD SPECIMENOrdering Facility: [facility] Address: [address] [place] [address] Performed By: #### 2 4321-2 ####[facility] H[facility]PITALIA [id number] [address] Creatinine and Glomerular filtration rate.predicted panel (S/P/Bld) 64 mL/min/1.73m??? Normal >=60 [facility] Comment on above: Order Comment: Speci men Type: BLOOD SPECIMENOrdering Facility: [facility] Address: [address] [place] [address] Result Comment: Autumn mated Glomerular Filtration Rate [...] actual GFR. Performed By: #### 2 4321-2 ####[facility] LABORATORYCLIA [id number] [address] Glucose [Mass/Vol] 126 mg/dL High 74-99 [facility] Comment on above: Order Comment: Speci men Type: BLOOD SPECIMENOrdering Facility: [facility] Address: [address] [place] [address] Result Comment: The [place] [employer] (ADA) provides guidance for cutoff [...] Standards of Medical Care in Diabetes 2016, [place] [employer]. Diabetes Care. 2016.39(Suppl 1). Performed By: #### 2 4321-2 ####[facility] LABORATORYCLIA [id number] [place] [address] [place] Potassium [Moles/Vol] 4.0 mmol/L Normal 3.7-5.1 [facility] Comment on above: Order Comment: Speci men Type: BLOOD SPECIMENOrdering Facility: [facility] Address: [address] [place] [address] Performed By: #### 2 1-2 ####[facility] LABORATORYCLIA [id number] [place] [address] [place] Sodium [Moles/Vol] 127 mmol/L Low 136-144 [facility] Comment on above: Order Comment: Speci men Type: BLOOD SPECIMENOrdering Facility: [facility] Address: [address] [place] [address] Performed By: #### 2 1-2 ####[facility] LABORATORYCLIA [id number] [place] [address] [place] Urea nitrogen [Mass/Vol] 44 mg/dL High 9-24 [facility] Comment on above: Order Comment: Speci men Type: BLOOD SPECIMENOrdering Facility: [facility] Address: [address] [place] [address] Performed By: #### 2 4321-2 ####[facility] LABORATORYCLIA [id number] [address] [place] CASE MANAGEMon 04-21-2025 CASE MANAGEM Normal [facility] CBC panel Auto (Bld)on 04-21 Erythrocyte distribution width (RBC) [Ratio] 18.9 % High 11.5-15.0 [facility] Comment on above: Order Comment: Speci men Type: BLOOD SPECIMENOrdering Facility: [facility] Address: [address] [place] [address] Performed By: #### 5 8410-2 ####[facility] LABORATORYCLIA [id number] [address] Hematocrit (Bld) [Volume fraction] 26.5 % Low 39.0-51.0 [facility] Comment on above: Order Comment: Speci men Type: BLOOD SPECIMENOrdering Facility: [facility] Address: [address] [place] [address] Performed By: #### 5 8410-2 ####[facility] LABORATORYCLIA [id number] [address] Hemoglobin (Bld) [Mass/Vol] 8.5 g/dL Low 13.0-17.0 [facility] Comment on above: Order Comment: Speci men Type: BLOOD SPECIMENOrdering Facility: [facility] Address: [address] [place] [address] Performed By: #### 5 8410-2 ####[facility] LABORATORYCLIA [id number] [address] [place] [facility] MCH (RBC) [Entitic mass] 36.0 pg High 26.0-34.0 [facility] Comment on above: Order Comment: Speci men Type: BLOOD SPECIMENOrdering Facility: [facility] Address: [address] [place] [address] Performed By: #### 5 8410-2 ####[facility] LABORATORYCLIA [id number] [address] [place] MCHC (RBC) [Mass/Vol] 32.1 g/dL Normal 30.5-36.0 [facility] Comment on above: Order Comment: Speci men Type: BLOOD SPECIMENOrdering Facility: [facility] Address: [address] [place] [address] Performed By: #### 5 8410-2 ####[facility] LABORATORYCLIA [id number] [address] MCV (RBC) [Entitic vol] 112.3 fL High 80.0-100.0 [facility] Comment on above: Order Comment: Speci men Type: BLOOD SPECIMENOrdering Facility: [facility] Address: [address] [place] [address] Performed By: #### 5 8410-2 ####[facility] LABORATORYCLIA [id number] [address] [facility] Nucleated RBC (Bld) [#/Vol] 10*3/uL Normal <0.01 [facility] Comment on above: Order Comment: Speci men Type: BLOOD SPECIMENOrdering Facility: [facility] Address: [address] [place] [address] Performed By: #### 5 8410-2 ####[facility] LABORATORYCLIA [id number] [address] Platelet mean volume (Bld) [Entitic vol] 10.0 fL Normal 9.0-12.7 [facility] Comment on above: Order Comment: Speci men Type: BLOOD SPECIMENOrdering Facility: [facility] Address: [address] [place] [address] Performed By: #### 5 8410-2 ####[facility] LABORATORYCLIA [id number] [address] Platelets (Bld) [#/Vol] 82 10*3/uL Low 150-400 [facility] Comment on above: Order Comment: Speci men Type: BLOOD SPECIMENOrdering Facility: [facility] Address: [address] [place] [address] Performed By: #### 5 8410-2 ####[facility] LABORATORYCLIA [id number] [address] [facility] RBC (Bld) [#/Vol] 2.36 10*6/uL Low 4.20-6.00 [facility] Comment on above: Order Comment: Sahil harper Type: BLOOD SPECIMENOrdering Facility: [facility] Address: [address] [place] [address] Performed By: #### 5 8410-2 ####[facility] LABORATORYCLIA [id number] [address] WBC (Bld) [#/Vol] 7.98 10*3/uL Normal 3.70-11.00 [facility] Comment on above: Order Comment: Sahil harper Type: BLOOD SPECIMENOrdering Facility: [facility] Address: [address] [place] [address] Performed By: #### 5 8410-2 ####[facility] LABORATORYCLIA [id number] [address] NUTRITIONon 04-21-2025 NUTRITION Normal [facility] PT panel Coag (PPP)on 2024 INR Coag (PPP) [Relative time] 1.6 {INR} High 0.9-1.3 [facility] Comment on above: Order Comment: Sahil harper Type: BLOOD SPECIMENOrdering Facility: [facility] Address: [address] [place] [address] Result Comment: Erum min K Antagonist (VKA) Therapeutic Range: INR 2 to 3 (Target INR of 2.5)Note: For patients treated with VKA drugs, such as warfarin, the [place] [employer] 2012 Guideline recommends [...] of 2.5 to 3.5 (target INR of 3).Guyatt GH, et al. Chest 2012, 141:7S-47SDario RA, et al. [facility] 2017, 70: 252-289 Performed By: #### 3 4528-0 ####[facility] LABORATORYCLIA [id number] [place] [id number] [place] PT Coag (PPP) [Time] 16.9 s High 9.7-13.0 [facility] Comment on above: Order Comment: Speci men Type: BLOOD SPECIMENOrdering Facility: [facility] Address: [address] [place] [address] Performed By: #### 3 4528-0 ####[facility] LABORATORYCLIA [id number] [place] [id number] [place] US ASCITES SURVEYon 04-21-20 US ASCITES SURVEY Normal [facility] XR CHEST 1V FRONTALon 2024 XR CHEST 1V FRONTAL Normal [facility] Basic metabolic 2000 panelon 04-20-2025 Anion gap [Moles/Vol] 13 mmol/L Normal 8-15 [facility] Comment on above: Order Comment: Speci men Type: BLOOD SPECIMENOrdering Facility: [facility] Address: [address] [place] [address] Performed By: #### 2 4321-2 ####[facility] LABORATORYCLIA [id number] [place] [address] [place] Calcium [Mass/Vol] 8.6 mg/dL Normal 8.5-10.2 [facility] Comment on above: Order Comment: Speci men Type: BLOOD SPECIMENOrdering Facility: [facility] Address: [address] [place] [address] Performed By: #### 2 4321-2 ####[facility] LABORATORYCLIA [id number] [place] [address] [place] Chloride [Moles/Vol] 91 mmol/L Low 98-107 [facility] Comment on above: Order Comment: Speci men Type: BLOOD SPECIMENOrdering Facility: [facility] Address: [address] [place] [address] Performed By: #### 2 4321-2 ####[facility] LABORATORYCLIA [id number] [address] STATES [facility] CO2 [Moles/Vol] 23 mmol/L Normal 22-30 [facility] Comment on above: Order Comment: Speci men Type: BLOOD SPECIMENOrdering Facility: [facility] Address: [address] [place] [address] Performed By: #### 2 4321-2 ####[facility] LABORATORYCLIA [id number] [address] [place] Creatinine [Mass/Vol] 1.31 mg/dL High 0.73-1.22 [facility] Comment on above: Order Comment: Speci men Type: BLOOD SPECIMENOrdering Facility: [facility] Address: [address] [place] [address] Performed By: #### 2 4321-2 ####[facility]CL[facility] [id number] [address] Creatinine and Glomerular filtration rate.predicted panel (S/P/Bld) 65 mL/min/1.73m??? Normal >=60 [facility] Comment on above: Order Comment: Speci men Type: BLOOD SPECIMENOrdering Facility: [facility] Address: [address] [place] [address] Result Comment: Autumn mated Glomerular Filtration Rate [...] actual GFR. Performed By: #### 2 4321-2 ####[facility] LABORATORYCLIA [id number] [address] Glucose [Mass/Vol] 127 mg/dL High 74-99 [facility] Comment on above: Order Comment: Speci men Type: BLOOD SPECIMENOrdering Facility: [facility] Address: [address] [place] [address] Result Comment: The [place] [employer] (ADA) provides guidance for cutoff [...] Standards of Medical Care in Diabetes 2016, [place] [employer]. Diabetes Care. 2016.39(Suppl 1). Performed By: #### 2 4321-2 ####[facility] LABORATORYCLIA [id number] [place] [address] [place] Potassium [Moles/Vol] 4.3 mmol/L Normal 3.7-5.1 [facility] Comment on above: Order Comment: Speci men Type: BLOOD SPECIMENOrdering Facility: [facility] Address: [address] [place] [address] Performed By: #### 2 4321-2 ####[facility] LABORATORYCLIA [id number] [place] [address] [place] Sodium [Moles/Vol] 127 mmol/L Low 136-144 [facility] Comment on above: Order Comment: Speci men Type: BLOOD SPECIMENOrdering Facility: [facility] Address: [address] [place] [address] Performed By: #### 2 1-2 ####[facility] LABORATORYCLIA [id number] [place] [address] [place] Urea nitrogen [Mass/Vol] 37 mg/dL High 9-24 [facility] Comment on above: Order Comment: Speci men Type: BLOOD SPECIMENOrdering Facility: [facility] Address: [address] [place] [address] Performed By: #### 2 4321-2 ####[facility] LABORATORYCLIA [id number] [address] CBC panel Auto (Bld)on 04-20 Erythrocyte distribution width (RBC) [Ratio] 19.8 % High 11.5-15.0 [facility] Comment on above: Order Comment: Speci men Type: BLOOD SPECIMENOrdering Facility: [facility] Address: [address] [place] [address] Performed By: #### 5 8410-2 ####[facility] LABORATORYCLIA [id number] [address] Hematocrit (Bld) [Volume fraction] 25.5 % Low 39.0-51.0 [facility] Comment on above: Order Comment: Speci men Type: BLOOD SPECIMENOrdering Facility: [facility] Address: [address] [place] [address] Performed By: #### 5 8410-2 ####[facility] LABORATORYCLIA [id number] [address] Hemoglobin (Bld) [Mass/Vol] 8.2 g/dL Low 13.0-17.0 [facility] Comment on above: Order Comment: Speci men Type: BLOOD SPECIMENOrdering Facility: [facility] Address: [address] [place] [address] Performed By: #### 5 8410-2 ####[facility] LABORATORYCLIA [id number] [address] [place] [facility] MCH (RBC) [Entitic mass] 35.5 pg High 26.0-34.0 [facility] Comment on above: Order Comment: Speci men Type: BLOOD SPECIMENOrdering Facility: [facility] Address: [address] [place] [address] Performed By: #### 5 8410-2 ####[facility] LABORATORYCLIA [id number] [address] MCHC (RBC) [Mass/Vol] 32.2 g/dL Normal 30.5-36.0 [facility] Comment on above: Order Comment: Speci men Type: BLOOD SPECIMENOrdering Facility: [facility] Address: [address] [place] [address] Performed By: #### 5 8410-2 ####[facility] LABORATORYCLIA [id number] [address] MCV (RBC) [Entitic vol] 110.4 fL High 80.0-100.0 [facility] Comment on above: Order Comment: Speci men Type: BLOOD SPECIMENOrdering Facility: [facility] Address: [address] [place] [address] Performed By: #### 5 8410-2 ####[facility] LABORATORYCLIA [id number] [address] Nucleated RBC (Bld) [#/Vol] 10*3/uL Normal <0.01 [facility] Comment on above: Order Comment: Speci men Type: BLOOD SPECIMENOrdering Facility: [facility] Address: [address] [place] [address] Performed By: #### 5 8410-2 ####[facility] LABORATORYCLIA [id number] [address] Platelet mean volume (Bld) [Entitic vol] 10.3 fL Normal 9.0-12.7 [facility] Comment on above: Order Comment: Speci men Type: BLOOD SPECIMENOrdering Facility: [facility] Address: [address] [place] [address] Performed By: #### 5 8410-2 ####[facility] LABORATORYCLIA [id number] [address] Platelets (Bld) [#/Vol] 88 10*3/uL Low 150-400 [facility] Comment on above: Order Comment: Speci men Type: BLOOD SPECIMENOrdering Facility: [facility] Address: [address] [place] [address] Performed By: #### 5 8410-2 ####[facility] LABORATORYCLIA [id number] [address] [place] RBC (Bld) [#/Vol] 2.31 10*6/uL Low 4.20-6.00 [facility] Comment on above: Order Comment: Sahil harper Type: BLOOD SPECIMENOrdering Facility: [facility] Address: [address] [place] [address] Performed By: #### 5 8410-2 ####[facility] LABORATORYCLIA [id number] [place] [id number] [place] [facility] WBC (Bld) [#/Vol] 12.00 10*3/uL High 3.70-11.00 [facility] Comment on above: Order Comment: Sahil leroy Type: BLOOD SPECIMENOrdering Facility: [facility] Address: [address] [place] [address] Performed By: #### 5 8410-2 ####[facility] LABORATORYCLIA [id number] [place] [id number] [facility] [place] NUTRITIONon 04-20-2025 NUTRITION Normal [facility] PT panel Coag (PPP)on 2024 INR Coag (PPP) [Relative time] 1.7 {INR} High 0.9-1.3 [facility] Comment on above: Order Comment: Sahil harper Type: BLOOD SPECIMENOrdering Facility: [facility] Address: [address] [place] [address] Result Comment: Erum min K Antagonist (VKA) Therapeutic Range: INR 2 to 3 (Target INR of 2.5)Note: For patients treated with VKA drugs, such as warfarin, the [place] [employer] 2012 Guideline recommends [...] of 3).Alpa THOMSON, et al. Chest 2012, 141:7S-47SNishimura RA, et al. [facility] 2017, 70: 252-289 Performed By: #### 3 4528-0 ####[facility] LABORATORYCLIA [id number] [address] PT Coag (PPP) [Time] 18.4 s High 9.7-13.0 [facility] Comment on above: Order Comment: Speci men Type: BLOOD SPECIMENOrdering Facility: [facility] Address: [address] [place] [address] Performed By: #### 3 4528-0 ####[facility] LABORATORYCLIA [id number] [address] TEG WITH HEPARIN NEUTRALIZAT IONon 04-20-2025 CITRATED FUNCTIONAL FIBRINOGEN W HAPARINASE MAXIMUM AMPLITUDE 14.4 mm Low 15-34 [facility] Comment on above: Order Comment: Speci men Type: BLOOD SPECIMENOrdering Facility: [facility] Address: [address] [place] [address] Performed By: #### T EGHN ####[facility] LABORATORYCLIA [id number] [address] CITRATED KAOLIN W HEPARINASE CLOT LYSIS AT 30 MINS 2.2 % Normal 0.0-3.2 [facility] Comment on above: Order Comment: Speci men Type: BLOOD SPECIMENOrdering Facility: [facility] Address: [address] [place] [address] Performed By: #### T EGHN ####[facility] LABORATORYCLIA [id number] [address] CITRATED RAPID TEG W HEPARINASE MAXIMUM AMPLITUDE 47 mm Low 53-69 [facility] Comment on above: Order Comment: Speci men Type: BLOOD SPECIMENOrdering Facility: [facility] Address: [address] [place] [address] Performed By: #### T EGHN ####[facility] LABORATORYCLIA [id number] [address] Clotting time after addition of heparinase TEG (Bld) 7.0 minutes Normal 4.3-8.3 [facility] Comment on above: Order Comment: Sahil harper Type: BLOOD SPECIMENOrdering Facility: [facility] Address: [address] [place] [address] Performed By: #### T EGHN ####[facility] LABORATORYCLIA [id number] [place] [id number] [facility] [place] Clotting time.extrinsic coagulation system activated Rotational TEG (Bld) 7.0 minutes Normal 4.6-9.1 [facility] Comment on above: Order Comment: Sahil harper Type: BLOOD SPECIMENOrdering Facility: [facility] Address: [address] [place] [address] Performed By: #### T EGHN ####[facility] LABORATORYCLIA [id number] [address] [place] Maximum clot firmness TEG (Bld) [Length] 44.9 mm Low 52.0-69.0 [facility] Comment on above: Order Comment: Sahil harper Type: BLOOD SPECIMENOrdering Facility: [facility] Address: [address] [place] [address] Performed By: #### T EGHN ####[facility] LABORATORYCLIA [id number] [address] [place] THROMBOGRAPH INTERP Normal [facility] Comment on above: Order Comment: Sahil harper Type: BLOOD SPECIMENOrdering Facility: [facility] Address: [address] [place] [address] Result Comment: A th romboelastograph (TEG) study [...] timely manner. Performed By: #### T EGHN ####[facility] LABORATORYCLIA [id number] [place] [address] [place] THERAPY NTon 04-20-2025 THERAPY NT Normal [facility] XR CHEST 1V FRONTALon 2024 XR CHEST 1V FRONTAL Normal [facility] XR CHEST 1V FRONTAL Normal [facility] ALLIED HEALTHon 04-19-2025 ALLIED HEALTH Normal [facility] Basic metabolic 2000 panelon 04-19-2025 Anion gap [Moles/Vol] 11 mmol/L Normal 8-15 [facility] Comment on above: Order Comment: Speci men Type: BLOOD SPECIMENOrdering Facility: [facility] Address: [address] [place] [address] Performed By: #### 2 4321-2 ####[facility] LABORATORYCLIA [id number] [place] [address] [place] Calcium [Mass/Vol] 8.3 mg/dL Low 8.5-10.2 [facility] Comment on above: Order Comment: Speci men Type: BLOOD SPECIMENOrdering Facility: [facility] Address: [address] [place] [address] Performed By: #### 2 4321-2 ####[facility] LABORATORYCLIA [id number] [place] [address] [place] Chloride [Moles/Vol] 89 mmol/L Low 98-107 [facility] Comment on above: Order Comment: Speci men Type: BLOOD SPECIMENOrdering Facility: [facility] Address: [address] [place] [address] Performed By: #### 2 4321-2 ####[facility] LABORATORYCLIA [id number] [place] [address] [place] CO2 [Moles/Vol] 24 mmol/L Normal 22-30 [facility] Comment on above: Order Comment: Speci men Type: BLOOD SPECIMENOrdering Facility: [facility] Address: [address] [place] [address] Performed By: #### 2 4321-2 ####[facility] LABORATORYCLIA [id number] [place] [id number] [place] Creatinine [Mass/Vol] 1.26 mg/dL High 0.73-1.22 [facility] Comment on above: Order Comment: Sahil leroy Type: BLOOD SPECIMENOrdering Facility: [facility] Address: [address] [place] [address] Performed By: #### 2 4321-2 ####[facility] LABORATORYCLIA [id number] [address] Creatinine and Glomerular filtration rate.predicted panel (S/P/Bld) 68 mL/min/1.73m??? Normal >=60 [facility] Comment on above: Order Comment: Sahil leroy Type: BLOOD SPECIMENOrdering Facility: [facility] Address: [address] [place] [address] Result Comment: Autumn mated Glomerular Filtration Rate [...] actual GFR. Performed By: #### 2 4321-2 ####[facility] LABORATORYCLIA [id number] [address] [place] Glucose [Mass/Vol] 135 mg/dL High 74-99 [facility] Comment on above: Order Comment: Sahil harper Type: BLOOD SPECIMENOrdering Facility: [facility] Address: [address] [place] [address] Result Comment: The [place] [employer] (ADA) provides guidance for cutoff [...] Standards of Medical Care in Diabetes 2016, [place] [employer]. Diabetes Care. 2016.39(Suppl 1). Performed By: #### 2 4321-2 ####[facility] LABORATORYCLIA [id number] [address] STATES OF [facility] Potassium [Moles/Vol] 5.0 mmol/L Normal 3.7-5.1 [facility] Comment on above: Order Comment: Sahil harper Type: BLOOD SPECIMENOrdering Facility: [facility] Address: [address] [place] [address] Performed By: #### 2 4321-2 ####[facility]CLIA [id number] [address] [place] [facility] Sodium [Moles/Vol] 124 mmol/L Low 136-144 [facility] Comment on above: Order Comment: Sahil harper Type: BLOOD SPECIMENOrdering Facility: [facility] Address: [address] [place] [address] Performed By: #### 2 4321-2 ####[facility] LABORATORYCLIA [id number] [address] [place] [facility] Urea nitrogen [Mass/Vol] 33 mg/dL High 9-24 [facility] Comment on above: Order Comment: Virgilioi leroy Type: BLOOD SPECIMENOrdering Facility: [facility] Address: [address] [place] [address] Performed By: #### 2 4321-2 ####[facility] LABORATORYCLIA [id number] [address] [place] CBC panel Auto (Bld)on 04-19 Erythrocyte distribution width (RBC) [Ratio] 20.2 % High 11.5-15.0 [facility] Comment on above: Order Comment: Virgilioi men Type: BLOOD SPECIMENOrdering Facility: [facility] Address: [address] [place] [address] Performed By: #### 5 8410-2 ####[facility] LABORATORYCLIA [id number] [address] Hematocrit (Bld) [Volume fraction] 27.0 % Low 39.0-51.0 [facility] Comment on above: Order Comment: Speci men Type: BLOOD SPECIMENOrdering Facility: [facility] Address: [address] [place] [address] Performed By: #### 5 8410-2 ####[facility] LABORATORYCLIA [id number] [address] [facility] Hemoglobin (Bld) [Mass/Vol] 8.9 g/dL Low 13.0-17.0 [facility] Comment on above: Order Comment: Speci men Type: BLOOD SPECIMENOrdering Facility: [facility] Address: [address] [place] [address] Performed By: #### 5 8410-2 ####[facility] LABORATORYCLIA [id number] [address] [place] [facility] MCH (RBC) [Entitic mass] 36.8 pg High 26.0-34.0 [facility] Comment on above: Order Comment: Speci men Type: BLOOD SPECIMENOrdering Facility: [facility] Address: [address] [place] [address] Performed By: #### 5 8410-2 ####[facility] LABORATORYCLIA [id number] [address] [place] MCHC (RBC) [Mass/Vol] 33.0 g/dL Normal 30.5-36.0 [facility] Comment on above: Order Comment: Speci men Type: BLOOD SPECIMENOrdering Facility: [facility] Address: [address] [place] [address] Performed By: #### 5 8410-2 ####[facility] LABORATORYCLIA [id number] [address] MCV (RBC) [Entitic vol] 111.6 fL High 80.0-100.0 [facility] Comment on above: Order Comment: Speci men Type: BLOOD SPECIMENOrdering Facility: [facility] Address: [address] [place] [address] Performed By: #### 5 8410-2 ####[facility] LABORATORYCLIA [id number] [address] [place] Nucleated RBC (Bld) [#/Vol] 10*3/uL Normal <0.01 [facility] Comment on above: Order Comment: Speci men Type: BLOOD SPECIMENOrdering Facility: [facility] Address: [address] [place] [address] Performed By: #### 5 8410-2 ####[facility] LABORATORYCLIA [id number] [address] [place] Platelet mean volume (Bld) [Entitic vol] 10.0 fL Normal 9.0-12.7 [facility] Comment on above: Order Comment: Speci men Type: BLOOD SPECIMENOrdering Facility: [facility] Address: [address] [place] [address] Performed By: #### 5 8410-2 ####[facility] LABORATORYCLIA [id number] [address] [place] Platelets (Bld) [#/Vol] 91 10*3/uL Low 150-400 [facility] Comment on above: Order Comment: Speci men Type: BLOOD SPECIMENOrdering Facility: [facility] Address: [address] [place] [address] Performed By: #### 5 8410-2 ####[facility] LABORATORYCLIA [id number] [address] [place] RBC (Bld) [#/Vol] 2.42 10*6/uL Low 4.20-6.00 [facility] Comment on above: Order Comment: Speci men Type: BLOOD SPECIMENOrdering Facility: [facility] Address: [address] [place] [address] Performed By: #### 5 8410-2 ####[facility] LABORATORYCLIA [id number] [address] [place] WBC (Bld) [#/Vol] 17.97 10*3/uL High 3.70-11.00 [facility] Comment on above: Order Comment: Speci men Type: BLOOD SPECIMENOrdering Facility: [facility] Address: [address] [place] [address] Performed By: #### 5 8410-2 ####[facility] LABORATORYCLIA [id number] [address] Erythrocyte distribution width (RBC) [Ratio] 20.9 % High 11.5-15.0 [facility] Comment on above: Order Comment: Speci men Type: BLOOD SPECIMENOrdering Facility: [facility] Address: [address] [place] [address] Performed By: #### 5 8410-2 ####[facility] LABORATORYCLIA [id number] [address] Hematocrit (Bld) [Volume fraction] 28.4 % Low 39.0-51.0 [facility] Comment on above: Order Comment: Speci men Type: BLOOD SPECIMENOrdering Facility: [facility] Address: [address] [place] [address] Performed By: #### 5 8410-2 ####[facility] LABORATORYCLIA [id number] [address] Hemoglobin (Bld) [Mass/Vol] 9.3 g/dL Low 13.0-17.0 [facility] Comment on above: Order Comment: Speci men Type: BLOOD SPECIMENOrdering Facility: [facility] Address: [address] [place] [address] Performed By: #### 5 8410-2 ####[facility] LABORATORYCLIA [id number] [address] [place] MCH (RBC) [Entitic mass] 36.3 pg High 26.0-34.0 [facility] Comment on above: Order Comment: Speci men Type: BLOOD SPECIMENOrdering Facility: [facility] Address: [address] [place] [address] Performed By: #### 5 8410-2 ####[facility] LABORATORYCLIA [id number] [address] MCHC (RBC) [Mass/Vol] 32.7 g/dL Normal 30.5-36.0 [facility] Comment on above: Order Comment: Speci men Type: BLOOD SPECIMENOrdering Facility: [facility] Address: [address] [place] [address] Performed By: #### 5 8410-2 ####[facility] LABORATORYCLIA [id number] [address] MCV (RBC) [Entitic vol] 110.9 fL High 80.0-100.0 [facility] Comment on above: Order Comment: Speci men Type: BLOOD SPECIMENOrdering Facility: [facility] Address: [address] [place] [address] Performed By: #### 5 8410-2 ####[facility] LABORATORYCLIA [id number] [address] Nucleated RBC (Bld) [#/Vol] 10*3/uL Normal <0.01 [facility] Comment on above: Order Comment: Speci men Type: BLOOD SPECIMENOrdering Facility: [facility] Address: [address] [place] [address] Performed By: #### 5 8410-2 ####[facility] LABORATORYCLIA [id number] [address] Platelet mean volume (Bld) [Entitic vol] 10.2 fL Normal 9.0-12.7 [facility] Comment on above: Order Comment: Speci men Type: BLOOD SPECIMENOrdering Facility: [facility] Address: [address] [place] [address] Performed By: #### 5 8410-2 ####[facility] LABORATORYCLIA [id number] [address] Platelets (Bld) [#/Vol] 94 10*3/uL Low 150-400 [facility] Comment on above: Order Comment: Speci men Type: BLOOD SPECIMENOrdering Facility: [facility] Address: [address] [place] [address] Result Comment: No c lot detected. Performed By: #### 5 8410-2 ####[facility] LABORATORYCLIA [id number] [address] [facility] RBC (Bld) [#/Vol] 2.56 10*6/uL Low 4.20-6.00 [facility] Comment on above: Order Comment: Speci men Type: BLOOD SPECIMENOrdering Facility: [facility] Address: [address] [place] [address] Performed By: #### 5 8410-2 ####[facility] LABORATORYCLIA [id number] [address] WBC (Bld) [#/Vol] 16.98 10*3/uL High 3.70-11.00 [facility] Comment on above: Order Comment: Speci men Type: BLOOD SPECIMENOrdering Facility: [facility] Address: [address] [place] [address] Performed By: #### 5 8410-2 ####[facility] LABORATORYCLIA [id number] [address] CONSULTon 04-19-2025 CONSULT Normal [facility] CONSULT PROGon 04-19-2025 CONSULT PROG Normal [facility] Osmolality Uron 04-19-2025 Osmolality (U) [Osmolality] 476 mosm/kg Normal 50-1200 [facility] Comment on above: Order Comment: Speci men Type: URINE SPECIMENOrdering Facility: [facility] Address: [address] [place] [address] Performed By: #### 2 890-2, 49003-6, 68248-7, UUNR, 2695-5 ####[facility] LABORATORYCLIA [id number] [address] PT panel Coag (PPP)on 2024 INR Coag (PPP) [Relative time] 1.8 {INR} High 0.9-1.3 [facility] Comment on above: Order Comment: Specsabino harper Type: BLOOD SPECIMENOrdering Facility: [facility] Address: [address] [place] [address] Result Comment: Erum min K Antagonist (VKA) Therapeutic Range: INR 2 to 3 (Target INR of 2.5)Note: For patients treated with VKA drugs, such as warfarin, the [place] [employer] 2012 Guideline recommends [...] al. Chest 2012, 141:7S-47SNishimura RA, et al. [facility] 2017, 70: 252-289 Performed By: #### 3 4528-0 ####[facility] LABORATORYCLIA [id number] [address] [place] PT Coag (PPP) [Time] 19.2 s High 9.7-13.0 [facility] Comment on above: Order Comment: Speci men Type: BLOOD SPECIMENOrdering Facility: [facility] Address: [address] [id number] Performed By: #### 3 4528-0 ####[facility] LABORATORYCLIA [id number] [address] [place] [facility] Potassium Unsp time (U) [Mol es/Vol]on 04-19-2025 Potassium (U) [Moles/Vol] 55.0 mmol/L Normal 10.0-160.0 [facility] Comment on above: Order Comment: Speci men Type: URINE SPECIMENOrdering Facility: [facility] Address: [address] [place] [address] Performed By: #### 2 890-2, 29810-4, 24222-7, UUNR, 2695-03 ####[facility] LABORATORYCLIA [id number] [address] [place] Prot/Creat Uron 04-19-2025 Protein/Creatinine (U) [Mass ratio] 0.11 mg/mg Normal <0.15 [facility] Comment on above: Order Comment: Speci men Type: URINE SPECIMENOrdering Facility: [facility] Address: [address] [place] [address] Result Comment: Adul t Proteinuria Categories:<0.15 mg/mg is considered normal to mildly increased0.15 - 0.50 mg/mg is considered moderately increased>0.50 mg/mg is considered severely increasedKDIGO. (2013). KDIGO 2012 Clinical Practice Guideline for the Evaluation and Management of Chronic Kidney Disease. Official Journal of the International Society of Nephrology, 3(1), 1-150. Performed By: #### 2 890-2, 16713-6, 55444-0, UUNR, 2695-03 ####[facility] LABORATORYCLIA [id number] [address] [place] [facility] Protein/Creatinine (U) [Mass ratio]on 04-19-2025 Creatinine (U) [Mass/Vol] 152.4 mg/dL Normal 46.8-314.5 [facility] Comment on above: Order Comment: Speci men Type: URINE SPECIMENOrdering Facility: [facility] Address: [address] [place] [address] Performed By: #### 2 890-2, 83794-6, 12388-8, UUNR, 2695-03 ####[facility] LABORATORYCLIA [id number] [address] [place] [facility] Protein (U) [Mass/Vol] 17 mg/dL Normal 0-20 [facility] Comment on above: Order Comment: Speci men Type: URINE SPECIMENOrdering Facility: [facility] Address: [address] [place] [id number] Performed By: #### 2 890-2, 62380-1, 44963-1, UUNR, 2694-5 ####[facility] LABORATORYCLIA [id number] [address] [facility] Sodium ?Tm Ur-sCncon 025 Sodium Unsp time (U) [Moles/Vol] <20 Normal 14-216 [facility] Comment on above: Order Comment: Speci men Type: URINE SPECIMENOrdering Facility: [facility] Address: [address] [place] [address] Performed By: #### 2 890-2, 99443-9, 03454-6, UUNR, 2694-5 ####[facility] LABORATORYCLIA [id number] [address] [facility] THERAPY NTon 04-19-2025 THERAPY NT Normal [facility] UREA NITROGEN, RANDOM URINEo n 04-19-2025 UREA NITROGEN,UR,RAN 673 mg/dL Normal 140-1500 [facility] Comment on above: Order Comment: Speci men Type: URINE SPECIMENOrdering Facility: [facility] Address: [address] [place] [address] Performed By: #### 2 890-2, 94213-1, 29770-7, UUNR, 2694-5 ####[facility] LABORATORYCLIA [id number] [address] [place] XR CHEST 1V FRONTALon 2024 XR CHEST 1V FRONTAL Normal [facility] BRIEF OP NOTon 04-18-2025 BRIEF OP NOT Normal [facility] Basic metabolic 2000 panelon 04-18-2025 Anion gap [Moles/Vol] 11 mmol/L Normal 8-15 [facility] Comment on above: Order Comment: Speci men Type: BLOOD SPECIMENOrdering Facility: [facility] Address: [address] [place] [address] Performed By: #### 2 4321-2 ####[facility] LABORATORYCLIA [id number] [place] [address] [place] Calcium [Mass/Vol] 8.9 mg/dL Normal 8.5-10.2 [facility] Comment on above: Order Comment: Speci men Type: BLOOD SPECIMENOrdering Facility: [facility] Address: [address] [place] [address] Performed By: #### 2 4321-2 ####[facility] LABORATORYCLIA [id number] [place] [address] [place] Chloride [Moles/Vol] 93 mmol/L Low 98-107 [facility] Comment on above: Order Comment: Speci men Type: BLOOD SPECIMENOrdering Facility: [facility] Address: [address] [place] [address] Performed By: #### 2 4321-2 ####[facility] LABORATORYCLIA [id number] [place] [address] [place] CO2 [Moles/Vol] 25 mmol/L Normal 22-30 [facility] Comment on above: Order Comment: Speci men Type: BLOOD SPECIMENOrdering Facility: [facility] Address: [address] [place] [address] Performed By: #### 2 4321-2 ####[facility] LABORATORYCLIA [id number] [place] [address] [place] Creatinine [Mass/Vol] 0.98 mg/dL Normal 0.73-1.22 [facility] Comment on above: Order Comment: Speci men Type: BLOOD SPECIMENOrdering Facility: [facility] Address: [address] [place] [address] Performed By: #### 2 4321-2 ####[facility] LABORATORYCLIA [id number] [address] [place] Creatinine and Glomerular filtration rate.predicted panel (S/P/Bld) 92 mL/min/1.73m??? Normal >=60 [facility] Comment on above: Order Comment: Speci men Type: BLOOD SPECIMENOrdering Facility: [facility] Address: [address] [place] [address] Result Comment: Autumn mated Glomerular Filtration Rate [...] actual GFR. Performed By: #### 2 4321-2 ####[facility] LABORATORYCLIA [id number] [place] [address] [place] Glucose [Mass/Vol] 118 mg/dL High 74-99 [facility] Comment on above: Order Comment: Sahil harper Type: BLOOD SPECIMENOrdering Facility: [facility] Address: [address] [place] [address] Result Comment: The [place] [employer] (ADA) provides guidance for cutoff [...] Standards of Medical Care in Diabetes 2016, [place] [employer]. Diabetes Care. 2016.39(Suppl 1). Performed By: #### 2 4321-2 ####[facility] LABORATORYCLIA [id number] [place] [id number] [place] Potassium [Moles/Vol] 4.5 mmol/L Normal 3.7-5.1 [facility] Comment on above: Order Comment: Sahil harper Type: BLOOD SPECIMENOrdering Facility: [facility] Address: [address] [id number] Performed By: #### 2 4321-2 ####[facility] LABORATORYCLIA [id number] [place] [id number] [place] Sodium [Moles/Vol] 129 mmol/L Low 136-144 [facility] Comment on above: Order Comment: Speci men Type: BLOOD SPECIMENOrdering Facility: [facility] Address: [address] [place] [address] Performed By: #### 2 4321-2 ####[facility] LABORATORYCLIA [id number] [place] [id number] [place] Urea nitrogen [Mass/Vol] 30 mg/dL High 9-24 [facility] Comment on above: Order Comment: Speci men Type: BLOOD SPECIMENOrdering Facility: [facility] Address: [address] [place] [address] Performed By: #### 2 4321-2 ####[facility] LABORATORYCLIA [id number] [address] [place] CASE MANAGEMon 04-18-2025 CASE MANAGEM Normal [facility] CBC panel Auto (Bld)on 04-18 Erythrocyte distribution width (RBC) [Ratio] 21.1 % High 11.5-15.0 [facility] Comment on above: Order Comment: Speci men Type: BLOOD SPECIMENOrdering Facility: [facility] Address: [address] [place] [address] Performed By: #### 5 8410-2 ####[facility] LABORATORYCLIA [id number] [place] [address] [place] Hematocrit (Bld) [Volume fraction] 27.9 % Low 39.0-51.0 [facility] Comment on above: Order Comment: Speci men Type: BLOOD SPECIMENOrdering Facility: [facility] Address: [address] [place] [address] Performed By: #### 5 8410-2 ####[facility] LABORATORYCLIA [id number] [place] [address] [place] Hemoglobin (Bld) [Mass/Vol] 9.1 g/dL Low 13.0-17.0 [facility] Comment on above: Order Comment: Speci men Type: BLOOD SPECIMENOrdering Facility: [facility] Address: [address] [place] [address] Performed By: #### 5 8410-2 ####[facility] LABORATORYCLIA [id number] [address] MCH (RBC) [Entitic mass] 36.3 pg High 26.0-34.0 [facility] Comment on above: Order Comment: Speci men Type: BLOOD SPECIMENOrdering Facility: [facility] Address: [address] [place] [address] Performed By: #### 5 8410-2 ####[facility] LABORATORYCLIA [id number] [address] [facility] MCHC (RBC) [Mass/Vol] 32.6 g/dL Normal 30.5-36.0 [facility] Comment on above: Order Comment: Speci men Type: BLOOD SPECIMENOrdering Facility: [facility] Address: [address] [place] [address] Performed By: #### 5 8410-2 ####[facility] LABORATORYCLIA [id number] [address] MCV (RBC) [Entitic vol] 111.2 fL High 80.0-100.0 [facility] Comment on above: Order Comment: Speci men Type: BLOOD SPECIMENOrdering Facility: [facility] Address: [address] [place] [address] Performed By: #### 5 8410-2 ####[facility] LABORATORYCLIA [id number] [address] Nucleated RBC (Bld) [#/Vol] 10*3/uL Normal <0.01 [facility] Comment on above: Order Comment: Speci men Type: BLOOD SPECIMENOrdering Facility: [facility] Address: [address] [place] [address] Performed By: #### 5 8410-2 ####[facility] LABORATORYCLIA [id number] [address] Platelet mean volume (Bld) [Entitic vol] 10.3 fL Normal 9.0-12.7 [facility] Comment on above: Order Comment: Speci men Type: BLOOD SPECIMENOrdering Facility: [facility] Address: [address] [place] [address] Performed By: #### 5 8410-2 ####[facility] LABORATORYCLIA [id number] [address] Platelets (Bld) [#/Vol] 99 10*3/uL Low 150-400 [facility] Comment on above: Order Comment: Speci men Type: BLOOD SPECIMENOrdering Facility: [facility] Address: [address] [place] [address] Performed By: #### 5 8410-2 ####[facility] LABORATORYCLIA [id number] [address] [facility] RBC (Bld) [#/Vol] 2.51 10*6/uL Low 4.20-6.00 [facility] Comment on above: Order Comment: Speci men Type: BLOOD SPECIMENOrdering Facility: [facility] Address: [address] [place] [address] Performed By: #### 5 8410-2 ####[facility] LABORATORYCLIA [id number] [address] [facility] WBC (Bld) [#/Vol] 11.60 10*3/uL High 3.70-11.00 [facility] Comment on above: Order Comment: Speci men Type: BLOOD SPECIMENOrdering Facility: [facility] Address: [address] [place] [address] Performed By: #### 5 8410-2 ####[facility] LABORATORYCLIA [id number] [address] [place] CONSULTon 04-18-2025 CONSULT Normal [facility] CT CHEST WO IVCONon 04-18-20 CT CHEST WO IVCON Normal [facility] PT panel Coag (PPP)on 2024 INR Coag (PPP) [Relative time] 1.7 {INR} High 0.9-1.3 [facility] Comment on above: Order Comment: Speci men Type: BLOOD SPECIMENOrdering Facility: [facility] Address: [address] [place] [address] Result Comment: Erum min K Antagonist (VKA) Therapeutic Range: INR 2 to 3 (Target INR of 2.5)Note: For patients treated with VKA drugs, such as warfarin, the [place] [employer] 2012 Guideline recommends [...] al. Chest 2012, 141:7S-47SNishjero RA, et al. [facility] 2017, 70: 252-289 Performed By: #### 3 4528-0 ####[facility] LABORATORYCLIA [id number] [place] [address] [place] PT Coag (PPP) [Time] 17.5 s High 9.7-13.0 [facility] Comment on above: Order Comment: Sahil harper Type: BLOOD SPECIMENOrdering Facility: [facility] Address: [address] [place] [address] Performed By: #### 3 4528-0 ####[facility] LABORATORYCLIA [id number] [place] [address] [place] THERAPY NTon 04-18-2025 THERAPY NT Normal [facility] XR CHEST 1V FRONTALon 2024 XR CHEST 1V FRONTAL Normal [facility] Basic metabolic 2000 panelon 04-17-2025 Anion gap [Moles/Vol] 8 mmol/L Normal 8-15 [facility] Comment on above: Order Comment: Sahil harper Type: BLOOD SPECIMENOrdering Facility: [facility] Address: [address] [place] [address] Performed By: #### 2 4321-2 ####[facility] LABORATORYCLIA [id number] [place] [address] [place] Calcium [Mass/Vol] 8.6 mg/dL Normal 8.5-10.2 [facility] Comment on above: Order Comment: Speci men Type: BLOOD SPECIMENOrdering Facility: [facility] Address: [address] [place] [address] Performed By: #### 2 4321-2 ####[facility] LABORATORYCLIA [id number] [place] [address] [place] Chloride [Moles/Vol] 91 mmol/L Low 98-107 [facility] Comment on above: Order Comment: Speci men Type: BLOOD SPECIMENOrdering Facility: [facility] Address: [address] [place] [address] Performed By: #### 2 4321-2 ####[facility] LABORATORYCLIA [id number] [address] [place] CO2 [Moles/Vol] 26 mmol/L Normal 22-30 [facility] Comment on above: Order Comment: Speci men Type: BLOOD SPECIMENOrdering Facility: [facility] Address: [address] [place] [address] Performed By: #### 2 4321-2 ####[facility] LABORATORYCLIA [id number] [address] [place] Creatinine [Mass/Vol] 0.90 mg/dL Normal 0.73-1.22 [facility] Comment on above: Order Comment: Speci men Type: BLOOD SPECIMENOrdering Facility: [facility] Address: [address] [place] [address] Performed By: #### 2 4321-2 ####[facility] LABORATORYCLIA [id number] [address] [place] Creatinine and Glomerular filtration rate.predicted panel (S/P/Bld) 101 mL/min/1.73m??? Normal >=60 [facility] Comment on above: Order Comment: Speci men Type: BLOOD SPECIMENOrdering Facility: [facility] Address: [address] [place] [address] Result Comment: Autumn mated Glomerular Filtration Rate [...] actual GFR. Performed By: #### 2 4321-2 ####[facility] LABORATORYCLIA [id number] [place] [address] [place] Glucose [Mass/Vol] 121 mg/dL High 74-99 [facility] Comment on above: Order Comment: Sahil harper Type: BLOOD SPECIMENOrdering Facility: [facility] Address: [address] [place] [address] Result Comment: The [place] [employer] (ADA) provides guidance for cutoff [...] Standards of Medical Care in Diabetes 2016, [place] [employer]. Diabetes Care. 2016.39(Suppl 1). Performed By: #### 2 4321-2 ####[facility] LABORATORYCLIA [id number] [place] [address] [place] Potassium [Moles/Vol] 4.3 mmol/L Normal 3.7-5.1 [facility] Comment on above: Order Comment: Sahil harper Type: BLOOD SPECIMENOrdering Facility: [facility] Address: [address] [id number] Performed By: #### 2 4321-2 ####[facility] LABORATORYCLIA [id number] [address] STATES [facility] Sodium [Moles/Vol] 125 mmol/L Low 136-144 [facility] Comment on above: Order Comment: Speci men Type: BLOOD SPECIMENOrdering Facility: [facility] Address: [address] [place] [address] Performed By: #### 2 4321-2 ####[facility] LABORATORYCLIA [id number] [address] [place] Urea nitrogen [Mass/Vol] 25 mg/dL High 9-24 [facility] Comment on above: Order Comment: Speci men Type: BLOOD SPECIMENOrdering Facility: [facility] Address: [address] [place] [address] Performed By: #### 2 4321-2 ####[facility] LABORATORYCLIA [id number] [address] STATES [facility] CBC panel Auto (Bld)on 04-17 Erythrocyte distribution width (RBC) [Ratio] 21.8 % High 11.5-15.0 [facility] Comment on above: Order Comment: Speci men Type: BLOOD SPECIMENOrdering Facility: [facility] Address: [address] [place] [address] Performed By: #### 5 8410-2 ####[facility] LABORATORYCLIA [id number] [address] [place] Hematocrit (Bld) [Volume fraction] 28.7 % Low 39.0-51.0 [facility] Comment on above: Order Comment: Speci men Type: BLOOD SPECIMENOrdering Facility: [facility] Address: [address] [place] [address] Performed By: #### 5 8410-2 ####[facility] LABORATORYCLIA [id number] [address] STATES [facility] Hemoglobin (Bld) [Mass/Vol] 9.5 g/dL Low 13.0-17.0 [facility] Comment on above: Order Comment: Speci men Type: BLOOD SPECIMENOrdering Facility: [facility] Address: [address] [place] [address] Performed By: #### 5 8410-2 ####[facility] LABORATORYCLIA [id number] [address] MCH (RBC) [Entitic mass] 36.5 pg High 26.0-34.0 [facility] Comment on above: Order Comment: Speci men Type: BLOOD SPECIMENOrdering Facility: [facility] Address: [address] [place] [address] Performed By: #### 5 8410-2 ####[facility] LABORATORYCLIA [id number] [address] MCHC (RBC) [Mass/Vol] 33.1 g/dL Normal 30.5-36.0 [facility] Comment on above: Order Comment: Speci men Type: BLOOD SPECIMENOrdering Facility: [facility] Address: [address] [place] [address] Performed By: #### 5 8410-2 ####[facility] LABORATORYCLIA [id number] [address] MCV (RBC) [Entitic vol] 110.4 fL High 80.0-100.0 [facility] Comment on above: Order Comment: Speci men Type: BLOOD SPECIMENOrdering Facility: [facility] Address: [address] [place] [address] Performed By: #### 5 8410-2 ####[facility] LABORATORYCLIA [id number] [address] Nucleated RBC (Bld) [#/Vol] 10*3/uL Normal <0.01 [facility] Comment on above: Order Comment: Speci men Type: BLOOD SPECIMENOrdering Facility: [facility] Address: [address] [place] [address] Performed By: #### 5 8410-2 ####[facility] LABORATORYCLIA [id number] [address] Platelet mean volume (Bld) [Entitic vol] 10.9 fL Normal 9.0-12.7 [facility] Comment on above: Order Comment: Speci men Type: BLOOD SPECIMENOrdering Facility: [facility] Address: [address] [place] [address] Performed By: #### 5 8410-2 ####[facility] LABORATORYCLIA [id number] [address] [place] Platelets (Bld) [#/Vol] 88 10*3/uL Low 150-400 [facility] Comment on above: Order Comment: Speci men Type: BLOOD SPECIMENOrdering Facility: [facility] Address: [address] [place] [address] Result Comment: No c lot detected. Performed By: #### 5 8410-2 ####[facility] LABORATORYCLIA [id number] [address] [place] RBC (Bld) [#/Vol] 2.60 10*6/uL Low 4.20-6.00 [facility] Comment on above: Order Comment: Speci men Type: BLOOD SPECIMENOrdering Facility: [facility] Address: [address] [place] [address] Performed By: #### 5 8410-2 ####[facility] LABORATORYCLIA [id number] [address] [place] WBC (Bld) [#/Vol] 9.07 10*3/uL Normal 3.70-11.00 [facility] Comment on above: Order Comment: Speci men Type: BLOOD SPECIMENOrdering Facility: [facility] Address: [address] [place] [address] Performed By: #### 5 8410-2 ####[facility] LABORATORYCLIA [id number] [address] OF [place] XR CHEST 1V FRONTALon 2024 XR CHEST 1V FRONTAL Normal [facility] Basic metabolic 2000 panelon 04-16-2025 Anion gap [Moles/Vol] 7 mmol/L Low 8-15 [facility] Comment on above: Order Comment: Speci men Type: BLOOD SPECIMENOrdering Facility: [facility] Address: [address] [place] [address] Performed By: #### 2 4321-2 ####[facility] LABORATORYCLIA [id number] [place] [address] [place] Calcium [Mass/Vol] 8.6 mg/dL Normal 8.5-10.2 [facility] Comment on above: Order Comment: Speci men Type: BLOOD SPECIMENOrdering Facility: [facility] Address: [address] [place] [address] Performed By: #### 2 4321-2 ####[facility] LABORATORYCLIA [id number] [place] [address] [place] Chloride [Moles/Vol] 92 mmol/L Low 98-107 [facility] Comment on above: Order Comment: Speci men Type: BLOOD SPECIMENOrdering Facility: [facility] Address: [address] [place] [address] Performed By: #### 2 4321-2 ####[facility] LABORATORYCLIA [id number] [address] [place] CO2 [Moles/Vol] 27 mmol/L Normal 22-30 [facility] Comment on above: Order Comment: Speci men Type: BLOOD SPECIMENOrdering Facility: [facility] Address: [address] [place] [address] Performed By: #### 2 4321-2 ####[facility] LABORATORYCLIA [id number] [place] [address] [place] Creatinine [Mass/Vol] 0.77 mg/dL Normal 0.73-1.22 [facility] Comment on above: Order Comment: Speci men Type: BLOOD SPECIMENOrdering Facility: [facility] Address: [address] [place] [address] Performed By: #### 2 4321-2 ####[facility] LABORATORYCLIA [id number] [address] [place] Creatinine and Glomerular filtration rate.predicted panel (S/P/Bld) 106 mL/min/1.73m??? Normal >=60 [facility] Comment on above: Order Comment: Sahil harper Type: BLOOD SPECIMENOrdering Facility: [facility] Address: [address] [place] [address] Result Comment: Autumn mated Glomerular Filtration Rate [...] actual GFR. Performed By: #### 2 4321-2 ####[facility] LABORATORYCLIA [id number] [place] [address] [place] Glucose [Mass/Vol] 131 mg/dL High 74-99 [facility] Comment on above: Order Comment: Sahil harper Type: BLOOD SPECIMENOrdering Facility: [facility] Address: [address] [place] [address] Result Comment: The [place] [employer] (ADA) provides guidance for cutoff [...] Standards of Medical Care in Diabetes 2016, [place] [employer]. Diabetes Care. 2016.39(Suppl 1). Performed By: #### 2 4321-2 ####[facility] LABORATORYCLIA [id number] [place] [address] [place] Potassium [Moles/Vol] 4.2 mmol/L Normal 3.7-5.1 [facility] Comment on above: Order Comment: Sahil harper Type: BLOOD SPECIMENOrdering Facility: [facility] Address: [address] [place] [address] Performed By: #### 2 4321-2 ####[facility] LABORATORYCLIA [id number] [address] STATES [facility] Sodium [Moles/Vol] 126 mmol/L Low 136-144 [facility] Comment on above: Order Comment: Speci men Type: BLOOD SPECIMENOrdering Facility: [facility] Address: [address] [place] [address] Performed By: #### 2 4321-2 ####[facility] LABORATORYCLIA [id number] [address] [place] Urea nitrogen [Mass/Vol] 23 mg/dL Normal 9-24 [facility] Comment on above: Order Comment: Speci men Type: BLOOD SPECIMENOrdering Facility: [facility] Address: [address] [place] [address] Performed By: #### 2 4321-2 ####[facility] LABORATORYCLIA [id number] [address] CBC panel Auto (Bld)on 04-16 Erythrocyte distribution width (RBC) [Ratio] 22.2 % High 11.5-15.0 [facility] Comment on above: Order Comment: Speci men Type: BLOOD SPECIMENOrdering Facility: [facility] Address: [address] [place] [address] Performed By: #### 5 8410-2 ####[facility] LABORATORYCLIA [id number] [address] Hematocrit (Bld) [Volume fraction] 26.1 % Low 39.0-51.0 [facility] Comment on above: Order Comment: Speci men Type: BLOOD SPECIMENOrdering Facility: [facility] Address: [address] [place] [address] Performed By: #### 5 8410-2 ####[facility] LABORATORYCLIA [id number] [address] [place] Hemoglobin (Bld) [Mass/Vol] 8.5 g/dL Low 13.0-17.0 [facility] Comment on above: Order Comment: Speci men Type: BLOOD SPECIMENOrdering Facility: [facility] Address: [address] [place] [address] Performed By: #### 5 8410-2 ####[facility] LABORATORYCLIA [id number] [address] MCH (RBC) [Entitic mass] 35.6 pg High 26.0-34.0 [facility] Comment on above: Order Comment: Speci men Type: BLOOD SPECIMENOrdering Facility: [facility] Address: [address] [place] [address] Performed By: #### 5 8410-2 ####[facility] LABORATORYCLIA [id number] [address] MCHC (RBC) [Mass/Vol] 32.6 g/dL Normal 30.5-36.0 [facility] Comment on above: Order Comment: Speci men Type: BLOOD SPECIMENOrdering Facility: [facility] Address: [address] [place] [address] Performed By: #### 5 8410-2 ####[facility] LABORATORYCLIA [id number] [address] MCV (RBC) [Entitic vol] 109.2 fL High 80.0-100.0 [facility] Comment on above: Order Comment: Speci men Type: BLOOD SPECIMENOrdering Facility: [facility] Address: [address] [place] [address] Performed By: #### 5 8410-2 ####[facility] LABORATORYCLIA [id number] [address] Nucleated RBC (Bld) [#/Vol] 10*3/uL Normal <0.01 [facility] Comment on above: Order Comment: Speci men Type: BLOOD SPECIMENOrdering Facility: [facility] Address: [address] [place] [address] Performed By: #### 5 8410-2 ####[facility] LABORATORYCLIA [id number] [address] Platelet mean volume (Bld) [Entitic vol] 10.6 fL Normal 9.0-12.7 [facility] Comment on above: Order Comment: Speci men Type: BLOOD SPECIMENOrdering Facility: [facility] Address: [address] [place] [address] Performed By: #### 5 8410-2 ####[facility] LABORATORYCLIA [id number] [address] [place] Platelets (Bld) [#/Vol] 75 10*3/uL Low 150-400 [facility] Comment on above: Order Comment: Speci men Type: BLOOD SPECIMENOrdering Facility: [facility] Address: [address] [place] [address] Performed By: #### 5 8410-2 ####[facility] LABORATORYCLIA [id number] [address] [place] RBC (Bld) [#/Vol] 2.39 10*6/uL Low 4.20-6.00 [facility] Comment on above: Order Comment: Speci men Type: BLOOD SPECIMENOrdering Facility: [facility] Address: [address] [place] [address] Performed By: #### 5 8410-2 ####[facility] LABORATORYCLIA [id number] [address] [place] WBC (Bld) [#/Vol] 6.74 10*3/uL Normal 3.70-11.00 [facility] Comment on above: Order Comment: Speci men Type: BLOOD SPECIMENOrdering Facility: [facility] Address: [address] [place] [address] Performed By: #### 5 8410-2 ####[facility] LABORATORYCLIA [id number] [place] [address] [place] NUTRITIONon 04-16-2025 NUTRITION Normal [facility] XR CHEST 1V FRONTALon 2024 XR CHEST 1V FRONTAL Normal [facility] Basic metabolic 2000 panelon 04-15-2025 Anion gap [Moles/Vol] 12 mmol/L Normal 8-15 [facility] Comment on above: Order Comment: Speci men Type: BLOOD SPECIMENOrdering Facility: [facility] Address: [address] [place] [address] Performed By: #### 2 4321-2 ####[facility] LABORATORYCLIA [id number] [place] [address] [place] Calcium [Mass/Vol] 8.7 mg/dL Normal 8.5-10.2 [facility] Comment on above: Order Comment: Speci men Type: BLOOD SPECIMENOrdering Facility: [facility] Address: [address] [place] [address] Performed By: #### 2 4321-2 ####[facility] LABORATORYCLIA [id number] [place] [address] [place] Chloride [Moles/Vol] 89 mmol/L Low 98-107 [facility] Comment on above: Order Comment: Speci men Type: BLOOD SPECIMENOrdering Facility: [facility] Address: [address] [place] [address] Performed By: #### 2 4321-2 ####[facility] LABORATORYCLIA [id number] [place] [address] [place] CO2 [Moles/Vol] 25 mmol/L Normal 22-30 [facility] Comment on above: Order Comment: Speci men Type: BLOOD SPECIMENOrdering Facility: [facility] Address: [address] [place] [address] Performed By: #### 2 4321-2 ####[facility] LABORATORYCLIA [id number] [place] [address] [place] Creatinine [Mass/Vol] 0.92 mg/dL Normal 0.73-1.22 [facility] Comment on above: Order Comment: Speci men Type: BLOOD SPECIMENOrdering Facility: [facility] Address: [address] [place] [address] Performed By: #### 2 4321-2 ####[facility] LABORATORYCLIA [id number] [place] [address] [place] Creatinine and Glomerular filtration rate.predicted panel (S/P/Bld) 99 mL/min/1.73m??? Normal >=60 [facility] Comment on above: Order Comment: Sahil harper Type: BLOOD SPECIMENOrdering Facility: [facility] Address: [address] [place] [address] Result Comment: Autumn mated Glomerular Filtration Rate [...] actual GFR. Performed By: #### 2 4321-2 ####[facility] LABORATORYCLIA [id number] [place] [address] [place] Glucose [Mass/Vol] 110 mg/dL High 74-99 [facility] Comment on above: Order Comment: Sahil harper Type: BLOOD SPECIMENOrdering Facility: [facility] Address: [address] [place] [address] Result Comment: The [place] [employer] (ADA) provides guidance for cutoff [...] Standards of Medical Care in Diabetes 2016, [place] [employer]. Diabetes Care. 2016.39(Suppl 1). Performed By: #### 2 4321-2 ####[facility] LABORATORYCLIA [id number] [place] [id number] [place] Potassium [Moles/Vol] 4.6 mmol/L Normal 3.7-5.1 [facility] Comment on above: Order Comment: Sahil harper Type: BLOOD SPECIMENOrdering Facility: [facility] Address: [address] [place] [address] Performed By: #### 2 4321-2 ####[facility] LABORATORYCLIA [id number] [address] Sodium [Moles/Vol] 126 mmol/L Low 136-144 [facility] Comment on above: Order Comment: Speci men Type: BLOOD SPECIMENOrdering Facility: [facility] Address: [address] [place] [address] Performed By: #### 2 4321-2 ####[facility] LABORATORYCLIA [id number] [address] STATES OF [facility] Urea nitrogen [Mass/Vol] 30 mg/dL High 9- [facility] Comment on above: Order Comment: Speci men Type: BLOOD SPECIMENOrdering Facility: [facility] Address: [address] [place] [address] Performed By: #### 2 4321-2 ####[facility] LABORATORYCLIA [id number] [address] STATES OF [facility] CBC panel Auto (Bld)on 04-15 Erythrocyte distribution width (RBC) [Ratio] 22.3 % High 11.5-15.0 [facility] Comment on above: Order Comment: Speci men Type: BLOOD SPECIMENOrdering Facility: [facility] Address: [address] [place] [address] Performed By: #### 5 8410-2 ####[facility] LABORATORYCLIA [id number] [address] Hematocrit (Bld) [Volume fraction] 25.8 % Low 39.0-51.0 [facility] Comment on above: Order Comment: Speci men Type: BLOOD SPECIMENOrdering Facility: [facility] Address: [address] [place] [address] Performed By: #### 5 8410-2 ####[facility] LABORATORYCLIA [id number] [address] Hemoglobin (Bld) [Mass/Vol] 8.4 g/dL Low 13.0-17.0 [facility] Comment on above: Order Comment: Speci men Type: BLOOD SPECIMENOrdering Facility: [facility] Address: [address] [place] [address] Performed By: #### 5 8410-2 ####[facility] LABORATORYCLIA [id number] [address] STATES [facility] MCH (RBC) [Entitic mass] 35.9 pg High 26.0-34.0 [facility] Comment on above: Order Comment: Speci men Type: BLOOD SPECIMENOrdering Facility: [facility] Address: [address] [place] [address] Performed By: #### 5 8410-2 ####[facility] LABORATORYCLIA [id number] [address] STATES OF [facility] MCHC (RBC) [Mass/Vol] 32.6 g/dL Normal 30.5-36.0 [facility] Comment on above: Order Comment: Speci men Type: BLOOD SPECIMENOrdering Facility: [facility] Address: [address] [place] [address] Performed By: #### 5 8410-2 ####[facility] LABORATORYCLIA [id number] [address] MCV (RBC) [Entitic vol] 110.3 fL High 80.0-100.0 [facility] Comment on above: Order Comment: Speci men Type: BLOOD SPECIMENOrdering Facility: [facility] Address: [address] [place] [address] Performed By: #### 5 8410-2 ####[facility] LABORATORYCLIA [id number] [address] Nucleated RBC (Bld) [#/Vol] 0.02 10*3/uL High <0.01 [facility] Comment on above: Order Comment: Speci men Type: BLOOD SPECIMENOrdering Facility: [facility] Address: [address] [place] [address] Performed By: #### 5 8410-2 ####[facility] LABORATORYCLIA [id number] [place] [address] [place] Platelet mean volume (Bld) [Entitic vol] 10.5 fL Normal 9.0-12.7 [facility] Comment on above: Order Comment: Speci men Type: BLOOD SPECIMENOrdering Facility: [facility] Address: [address] [place] [address] Performed By: #### 5 8410-2 ####[facility] LABORATORYCLIA [id number] [place] [address] [place] Platelets (Bld) [#/Vol] 75 10*3/uL Low 150-400 [facility] Comment on above: Order Comment: Speci men Type: BLOOD SPECIMENOrdering Facility: [facility] Address: [address] [place] [address] Result Comment: No c lot detected. Performed By: #### 5 8410-2 ####[facility] LABORATORYCLIA [id number] [address] [place] RBC (Bld) [#/Vol] 2.34 10*6/uL Low 4.20-6.00 [facility] Comment on above: Order Comment: Speci men Type: BLOOD SPECIMENOrdering Facility: [facility] Address: [address] [place] [address] Performed By: #### 5 8410-2 ####[facility] LABORATORYCLIA [id number] [place] [address] [place] WBC (Bld) [#/Vol] 7.61 10*3/uL Normal 3.70-11.00 [facility] Comment on above: Order Comment: Speci men Type: BLOOD SPECIMENOrdering Facility: [facility] Address: [address] [place] [address] Performed By: #### 5 8410-2 ####[facility] LABORATORYCLIA [id number] [address] [place] Erythrocyte distribution width (RBC) [Ratio] 18.4 % High 11.5-15.0 [facility] Comment on above: Order Comment: Speci men Type: BLOOD SPECIMENOrdering Facility: [facility] Address: [address] [place] [address] Performed By: #### 5 8410-2 ####[facility] LABORATORYCLIA [id number] [address] STATES OF [facility] Hematocrit (Bld) [Volume fraction] 20.8 % Low 39.0-51.0 [facility] Comment on above: Order Comment: Speci men Type: BLOOD SPECIMENOrdering Facility: [facility] Address: [address] [place] [address] Performed By: #### 5 8410-2 ####[facility] LABORATORYCLIA [id number] [address] [place] Hemoglobin (Bld) [Mass/Vol] 6.8 g/dL Low 13.0-17.0 [facility] Comment on above: Order Comment: Speci men Type: BLOOD SPECIMENOrdering Facility: [facility] Address: [address] [place] [address] Performed By: #### 5 8410-2 ####[facility] LABORATORYCLIA [id number] [address] [place] MCH (RBC) [Entitic mass] 37.4 pg High 26.0-34.0 [facility] Comment on above: Order Comment: Speci men Type: BLOOD SPECIMENOrdering Facility: [facility] Address: [address] [place] [address] Performed By: #### 5 8410-2 ####[facility] LABORATORYCLIA [id number] [address] [place] MCHC (RBC) [Mass/Vol] 32.7 g/dL Normal 30.5-36.0 [facility] Comment on above: Order Comment: Speci men Type: BLOOD SPECIMENOrdering Facility: [facility] Address: [address] [place] [address] Performed By: #### 5 8410-2 ####[facility] LABORATORYCLIA [id number] [address] MCV (RBC) [Entitic vol] 114.3 fL High 80.0-100.0 [facility] Comment on above: Order Comment: Speci men Type: BLOOD SPECIMENOrdering Facility: [facility] Address: [address] [place] [address] Performed By: #### 5 8410-2 ####[facility] LABORATORYCLIA [id number] [address] [place] Nucleated RBC (Bld) [#/Vol] 0.05 10*3/uL High <0.01 [facility] Comment on above: Order Comment: Speci men Type: BLOOD SPECIMENOrdering Facility: [facility] Address: [address] [place] [address] Performed By: #### 5 8410-2 ####[facility] LABORATORYCLIA [id number] [address] Platelet mean volume (Bld) [Entitic vol] 10.3 fL Normal 9.0-12.7 [facility] Comment on above: Order Comment: Speci men Type: BLOOD SPECIMENOrdering Facility: [facility] Address: [address] [place] [address] Performed By: #### 5 8410-2 ####[facility] LABORATORYCLIA [id number] [address] Platelets (Bld) [#/Vol] 78 10*3/uL Low 150-400 [facility] Comment on above: Order Comment: Speci men Type: BLOOD SPECIMENOrdering Facility: [facility] Address: [address] [place] [address] Performed By: #### 5 8410-2 ####[facility] LABORATORYCLIA [id number] [address] [place] RBC (Bld) [#/Vol] 1.82 10*6/uL Low 4.20-6.00 [facility] Comment on above: Order Comment: Speci men Type: BLOOD SPECIMENOrdering Facility: [facility] Address: [address] [place], [place] [address] Performed By: #### 5 8410-2 ####[facility] LABORATORYCLIA [id number] [address] [place] WBC (Bld) [#/Vol] 9.34 10*3/uL Normal 3.70-11.00 [facility] Comment on above: Order Comment: Speci men Type: BLOOD SPECIMENOrdering Facility: [facility] Address: [address] [place] [address] Performed By: #### 5 8410-2 ####[facility] LABORATORYCLIA [id number] [address] Creatinine Unsp time (U) [Ma ss/Vol]on 04-15-2025 Creatinine (U) [Mass/Vol] 116.5 mg/dL Normal 46.8-314.5 [facility] Comment on above: Order Comment: Speci men Type: URINE SPECIMENOrdering Facility: [facility] Address: [address] [place] [address] Performed By: #### 2 695-5, 70148-8, 07370-6 ####[facility] LABORATORYCLIA [id number] [address] OF [facility] NURSING PROGon 04-15-2025 NURSING PROG Normal [facility] NURSING PROG Normal [facility] Osmolality Uron 04-15-2025 Osmolality (U) [Osmolality] 449 mosm/kg Normal 50-1200 [facility] Comment on above: Order Comment: Speci men Type: URINE SPECIMENOrdering Facility: [facility] Address: [address] [place] [address] Performed By: #### 2 695-5, 14455-8, 99660-4 ####[facility] LABORATORYCLIA [id number] [address] [place] Sodium ?Tm Ur-sCncon 025 Sodium Unsp time (U) [Moles/Vol] <20 Normal 14-216 [facility] Comment on above: Order Comment: Speci men Type: URINE SPECIMENOrdering Facility: [facility] Address: [address] [place] [address] Performed By: #### 2 695-5, 87713-2, 49142-6 ####[facility] LABORATORYCLIA [id number] [address] [facility] TYPE + SCREENon 04-15-2025 ABO AB Normal [facility] Comment on above: Order Comment: Speci men Type: BLOOD SPECIMENOrdering Facility: [facility] Address: [address] [place] [address] Performed By: #### T SCR ####[facility] BLOOD BANKCLIA [id number] [address] [place] Rh Nom (Bld) Positive Normal [facility] Comment on above: Order Comment: Speci men Type: BLOOD SPECIMENOrdering Facility: [facility] Address: [address] [place] [address] Performed By: #### T SCR ####[facility] BLOOD BANKCLIA [id number] [address] [place] TYPE AND SCREEN EXPIRATION 04/18/2025 23:59 Normal [facility] Comment on above: Order Comment: Speci men Type: BLOOD SPECIMENOrdering Facility: [facility] Address: [address] [place] [address] Performed By: #### T SCR ####[facility] BLOOD BANKCLIA [id number] [place] [address] [place] XR CHEST 1V FRONTALon 2024 XR CHEST 1V FRONTAL Normal [facility] ALLIED HEALTHon 04-14-2025 ALLIED HEALTH Normal [facility] Basic metabolic 2000 panelon 04-14-2025 Anion gap [Moles/Vol] 12 mmol/L Normal 8-15 [facility] Comment on above: Order Comment: Speci men Type: BLOOD SPECIMENOrdering Facility: [facility] Address: [address] [place] [address] Performed By: #### 2 692-2, 19514-3 ####[facility] LABORATORYCLIA [id number] [place] [address] [place] Calcium [Mass/Vol] 8.8 mg/dL Normal 8.5-10.2 [facility] Comment on above: Order Comment: Speci men Type: BLOOD SPECIMENOrdering Facility: [facility] Address: [address] [place] [address] Performed By: #### 2 692-2, 90503-6 ####[facility] LABORATORYCLIA [id number] [place] [address] [place] Chloride [Moles/Vol] 88 mmol/L Low 98-107 [facility] Comment on above: Order Comment: Speci men Type: BLOOD SPECIMENOrdering Facility: [facility] Address: [address] [place] [address] Performed By: #### 2 692-2, 77896-6 ####[facility] LABORATORYCLIA [id number] [address] STATES OF [facility] CO2 [Moles/Vol] 27 mmol/L Normal 22-30 [facility] Comment on above: Order Comment: Speci men Type: BLOOD SPECIMENOrdering Facility: [facility] Address: [address] [place] [address] Performed By: #### 2 692-2, 91009-2 ####[facility] LABORATORYCLIA [id number] [address] [place] Creatinine [Mass/Vol] 0.88 mg/dL Normal 0.73-1.22 [facility] Comment on above: Order Comment: Speci men Type: BLOOD SPECIMENOrdering Facility: [facility] Address: [address] [place] [address] Performed By: #### 2 692-2, 97724-0 ####[facility] LABORATORYCLIA [id number] [address] Creatinine and Glomerular filtration rate.predicted panel (S/P/Bld) 102 mL/min/1.73m??? Normal >=60 [facility] Comment on above: Order Comment: Speci men Type: BLOOD SPECIMENOrdering Facility: [facility] Address: [address] [place] [address] Result Comment: Autumn mated Glomerular Filtration Rate [...] actual GFR. Performed By: #### 2 692-2, 79349-5 ####[facility] [id number] [place] [address] [place] Glucose [Mass/Vol] 121 mg/dL High 74-99 [facility] Comment on above: Order Comment: Sahil harper Type: BLOOD SPECIMENOrdering Facility: [facility] Address: [address] [place] [address] Result Comment: The [place] [employer] Association (ADA) provides guidance for cutoff [...] Standards of Medical Care in Diabetes 2016, [place] [employer]. Diabetes Care. 2016.39(Suppl 1). Performed By: #### 2 692-2, 31592-0 ####[facility] LABORATORYCLIA [id number] [place] [id number] [place] Potassium [Moles/Vol] 4.7 mmol/L Normal 3.7-5.1 [facility] Comment on above: Order Comment: Sahil harper Type: BLOOD SPECIMENOrdering Facility: [facility] Address: [address] [place] [id number] Performed By: #### 2 692-2, 99434-7 ####[facility]ORATORYCLIA [id number] [place] [address] [place] Sodium [Moles/Vol] 127 mmol/L Low 136-144 [facility] Comment on above: Order Comment: Speci men Type: BLOOD SPECIMENOrdering Facility: [facility] Address: [address] [place] [address] Performed By: #### 2 692-2, 34866-5 ####[facility] LABORATORYCLIA [id number] [place] [address] [place] Urea nitrogen [Mass/Vol] 28 mg/dL High 9-24 [facility] Comment on above: Order Comment: Speci men Type: BLOOD SPECIMENOrdering Facility: [facility] Address: [address] [place] [address] Performed By: #### 2 692-2, 07229-8 ####[facility] LABORATORYCLIA [id number] [place] [address] [place] Anion gap [Moles/Vol] 6 mmol/L Low 8-15 [facility] Comment on above: Order Comment: Speci men Type: BLOOD SPECIMENOrdering Facility: [facility] Address: [address] [place] [address] Performed By: #### 2 4321-2 ####[facility]ORATORYCLIA [id number] [place] [address] [place] Calcium [Mass/Vol] 8.5 mg/dL Normal 8.5-10.2 [facility] Comment on above: Order Comment: Speci men Type: BLOOD SPECIMENOrdering Facility: [facility] Address: [address] [place] [address] Performed By: #### 2 4321-2 ####[facility] LABORATORYCLIA [id number] [place] [address] [place] Chloride [Moles/Vol] 91 mmol/L Low 98-107 [facility] Comment on above: Order Comment: Speci men Type: BLOOD SPECIMENOrdering Facility: [facility] Address: [address] [place] [address] Performed By: #### 2 4321-2 ####[facility] LABORATORYCLIA [id number] [place] [id number] [place] CO2 [Moles/Vol] 28 mmol/L Normal 22-30 [facility] Comment on above: Order Comment: Speci men Type: BLOOD SPECIMENOrdering Facility: [facility] Address: [address] [place] [address] Performed By: #### 2 4321-2 ####[facility] LABORATORYCLIA [id number] [address] [place] Creatinine [Mass/Vol] 0.87 mg/dL Normal 0.73-1.22 [facility] Comment on above: Order Comment: Speci men Type: BLOOD SPECIMENOrdering Facility: [facility] Address: [address] [place] [address] Performed By: #### 2 4321-2 ####[facility] LABORATORYCLIA [id number] [address] Creatinine and Glomerular filtration rate.predicted panel (S/P/Bld) 103 mL/min/1.73m??? Normal >=60 [facility] Comment on above: Order Comment: Speci men Type: BLOOD SPECIMENOrdering Facility: [facility] Address: [address] [place] [address] Result Comment: Autumn mated Glomerular Filtration Rate [...] actual GFR. Performed By: #### 2 4321-2 ####[facility] LABORATORYCLIA [id number] [address] STATES OF [facility] Glucose [Mass/Vol] 126 mg/dL High 74-99 [facility] Comment on above: Order Comment: Speci men Type: BLOOD SPECIMENOrdering Facility: [facility] Address: [address] [place] [address] Result Comment: The [place] Diabetes Association (ADA) provides guidance for cutoff [...] Standards of Medical Care in Diabetes 2016, [place] [employer]. Diabetes Care. 2016.39(Suppl 1). Performed By: #### 2 4321-2 ####[facility] LABORATORYCLIA [id number] [place] [address] [place] Potassium [Moles/Vol] 4.3 mmol/L Normal 3.7-5.1 [facility] Comment on above: Order Comment: Speci men Type: BLOOD SPECIMENOrdering Facility: [facility] Address: [address] [place] [address] Performed By: #### 2 1-2 ####[facility] LABORATORYCLIA [id number] [place] [address] [place] Sodium [Moles/Vol] 125 mmol/L Low 136-144 [facility] Comment on above: Order Comment: Speci men Type: BLOOD SPECIMENOrdering Facility: [facility] Address: [address] [place] [address] Performed By: #### 2 1-2 ####[facility] LABORATORYCLIA [id number] [place] [address] [place] Urea nitrogen [Mass/Vol] 25 mg/dL High 9-24 [facility] Comment on above: Order Comment: Speci men Type: BLOOD SPECIMENOrdering Facility: [facility] Address: [address] [place] [address] Performed By: #### 2 1-2 ####[facility] LABORATORYCLIA [id number] [address] STATES OF [facility] CBC panel Auto (Bld)on 04-14 Erythrocyte distribution width (RBC) [Ratio] 18.3 % High 11.5-15.0 [facility] Comment on above: Order Comment: Speci men Type: BLOOD SPECIMENOrdering Facility: [facility] Address: [address] [place] [address] Performed By: #### 5 8410-2 ####[facility] LABORATORYCLIA [id number] [address] Hematocrit (Bld) [Volume fraction] 21.9 % Low 39.0-51.0 [facility] Comment on above: Order Comment: Speci men Type: BLOOD SPECIMENOrdering Facility: [facility] Address: [address] [place] [address] Performed By: #### 5 8410-2 ####[facility]CLIA [id number] [address] Hemoglobin (Bld) [Mass/Vol] 7.2 g/dL Low 13.0-17.0 [facility] Comment on above: Order Comment: Speci men Type: BLOOD SPECIMENOrdering Facility: [facility] Address: [address] [place] [address] Performed By: #### 5 8410-2 ####[facility] LABORATORYCLIA [id number] [address] STATES [facility] MCH (RBC) [Entitic mass] 37.3 pg High 26.0-34.0 [facility] Comment on above: Order Comment: Speci men Type: BLOOD SPECIMENOrdering Facility: [facility] Address: [address] [place] [address] Performed By: #### 5 8410-2 ####[facility] LABORATORYCLIA [id number] [address] [place] MCHC (RBC) [Mass/Vol] 32.9 g/dL Normal 30.5-36.0 [facility] Comment on above: Order Comment: Speci men Type: BLOOD SPECIMENOrdering Facility: [facility] Address: [address] [place] [address] Performed By: #### 5 8410-2 ####[facility] LABORATORYCLIA [id number] [address] MCV (RBC) [Entitic vol] 113.5 fL High 80.0-100.0 [facility] Comment on above: Order Comment: Speci men Type: BLOOD SPECIMENOrdering Facility: [facility] Address: [address] [place] [address] Performed By: #### 5 8410-2 ####[facility] LABORATORYCLIA [id number] [address] [place] Nucleated RBC (Bld) [#/Vol] 0.04 10*3/uL High <0.01 [facility] Comment on above: Order Comment: Speci men Type: BLOOD SPECIMENOrdering Facility: [facility] Address: [address] [place] [address] Performed By: #### 5 8410-2 ####[facility] LABORATORYCLIA [id number] [address] OF [facility] Platelet mean volume (Bld) [Entitic vol] 10.9 fL Normal 9.0-12.7 [facility] Comment on above: Order Comment: Speci men Type: BLOOD SPECIMENOrdering Facility: [facility] Address: [address] [place] [address] Performed By: #### 5 8410-2 ####[facility] LABORATORYCLIA [id number] [address] Platelets (Bld) [#/Vol] 62 10*3/uL Low 150-400 [facility] Comment on above: Order Comment: Speci men Type: BLOOD SPECIMENOrdering Facility: [facility] Address: [address] [place] [address] Result Comment: No c lot detected. Performed By: #### 5 8410-2 ####[facility] LABORATORYCLIA [id number] [address] [place] RBC (Bld) [#/Vol] 1.93 10*6/uL Low 4.20-6.00 [facility] Comment on above: Order Comment: Speci men Type: BLOOD SPECIMENOrdering Facility: [facility] Address: [address] [place] [address] Performed By: #### 5 8410-2 ####[facility] LABORATORYCLIA [id number] [address] [place] WBC (Bld) [#/Vol] 6.86 10*3/uL Normal 3.70-11.00 [facility] Comment on above: Order Comment: Speci men Type: BLOOD SPECIMENOrdering Facility: [facility] Address: [address] [place] [address] Performed By: #### 5 8410-2 ####[facility] LABORATORYCLIA [id number] [address] CHEST WO IVCONon 04-14-[address] CHEST WO IVCON Normal [facility] ECG COMPLETEon 04-14-2025 ECG COMPLETE Normal [facility] NURSING PROGon 04-14-2025 NURSING PROG Normal [facility] NURSING PROG Normal [facility] Osmolality SerPlon Osmolality [Osmolality] 281 mosm/kg Normal 275-300 [facility] Comment on above: Order Comment: Speci men Type: BLOOD SPECIMENOrdering Facility: [facility] Address: [address] [place] [address] Performed By: #### 2 692-2, 90002-7 ####[facility] LABORATORYCLIA [id number] [address] [place] THERAPY NTon 04-14-2025 THERAPY NT Normal [facility] XR CHEST 1V FRONTALon 2024 XR CHEST 1V FRONTAL Normal [facility] XR CHEST 1V FRONTAL Normal [facility] XR CHEST 1V FRONTAL Normal [facility] ALLIED HEALTHon 04-13-2025 ALLIED HEALTH Normal [facility] Basic metabolic 2000 panelon 04-13-2025 Anion gap [Moles/Vol] 6 mmol/L Low 8-15 [facility] Comment on above: Order Comment: Speci men Type: BLOOD SPECIMENOrdering Facility: [facility] Address: [address] [place] [address] Performed By: #### 2 4321-2 ####[facility]ORATORYCLIA [id number] [place] [address] [place] Calcium [Mass/Vol] 8.8 mg/dL Normal 8.5-10.2 [facility] Comment on above: Order Comment: Speci men Type: BLOOD SPECIMENOrdering Facility: [facility] Address: [address] [place] [address] Performed By: #### 2 4321-2 ####[facility] LABORATORYCLIA [id number] [place] [address] [place] Chloride [Moles/Vol] 91 mmol/L Low 98-107 [facility] Comment on above: Order Comment: Speci men Type: BLOOD SPECIMENOrdering Facility: [facility] Address: [address] [place] [address] Performed By: #### 2 4321-2 ####[facility]ORATORYCLIA [id number] [place] [address] [place] CO2 [Moles/Vol] 32 mmol/L High 22-30 [facility] Comment on above: Order Comment: Speci men Type: BLOOD SPECIMENOrdering Facility: [facility] Address: [address] [place] [address] Performed By: #### 2 4321-2 ####[facility] LABORATORYCLIA [id number] [place] [address] [place] Creatinine [Mass/Vol] 1.02 mg/dL Normal 0.73-1.22 [facility] Comment on above: Order Comment: Speci men Type: BLOOD SPECIMENOrdering Facility: [facility] Address: [address] [place] [address] Performed By: #### 2 4321-2 ####[facility]ORATORYCLIA [id number] [place] [address] [place] Creatinine and Glomerular filtration rate.predicted panel (S/P/Bld) 87 mL/min/1.73m??? Normal >=60 [facility] Comment on above: Order Comment: Sahil harper Type: BLOOD SPECIMENOrdering Facility: [facility] Address: [address] [place] [address] Result Comment: Autumn mated Glomerular Filtration Rate [...] actual GFR. Performed By: #### 2 4321-2 ####[facility] LABORATORYCLIA [id number] [place] [address] [place] Glucose [Mass/Vol] 116 mg/dL High 74-99 [facility] Comment on above: Order Comment: Sahil harper Type: BLOOD SPECIMENOrdering Facility: [facility] Address: [address] [place] [address] Result Comment: The [place] [employer] (ADA) provides guidance for cutoff [...] Standards of Medical Care in Diabetes 2016, [place] [employer]. Diabetes Care. 2016.39(Suppl 1). Performed By: #### 2 4321-2 ####[facility] LABORATORYCLIA [id number] [place] [id number] [place] Potassium [Moles/Vol] 4.4 mmol/L Normal 3.7-5.1 [facility] Comment on above: Order Comment: Speci men Type: BLOOD SPECIMENOrdering Facility: [facility] Address: [address] [place] [address] Performed By: #### 2 4321-2 ####[facility] LABORATORYCLIA [id number] [address] STATES OF [facility] Sodium [Moles/Vol] 129 mmol/L Low 136-144 [facility] Comment on above: Order Comment: Speci men Type: BLOOD SPECIMENOrdering Facility: [facility] Address: [address] [place] [address] Performed By: #### 2 4321-2 ####[facility] LABORATORYCLIA [id number] [address] STATES [facility] Urea nitrogen [Mass/Vol] 27 mg/dL High 9-24 [facility] Comment on above: Order Comment: Speci men Type: BLOOD SPECIMENOrdering Facility: [facility] Address: [address] [place] [address] Performed By: #### 2 4321-2 ####[facility] LABORATORYCLIA [id number] [address] [place] CBC panel Auto (Bld)on 04-13 Erythrocyte distribution width (RBC) [Ratio] 18.2 % High 11.5-15.0 [facility] Comment on above: Order Comment: Speci men Type: BLOOD SPECIMENOrdering Facility: [facility] Address: [address] [place] [address] Performed By: #### 5 8410-2 ####[facility] LABORATORYCLIA [id number] [address] [place] [facility] Hematocrit (Bld) [Volume fraction] 23.5 % Low 39.0-51.0 [facility] Comment on above: Order Comment: Speci men Type: BLOOD SPECIMENOrdering Facility: [facility] Address: [address] [place] [address] Performed By: #### 5 8410-2 ####[facility] LABORATORYCLIA [id number] [address] Hemoglobin (Bld) [Mass/Vol] 7.6 g/dL Low 13.0-17.0 [facility] Comment on above: Order Comment: Speci men Type: BLOOD SPECIMENOrdering Facility: [facility] Address: [address] [place] [address] Performed By: #### 5 8410-2 ####[facility] LABORATORYCLIA [id number] [address] MCH (RBC) [Entitic mass] 37.4 pg High 26.0-34.0 [facility] Comment on above: Order Comment: Speci men Type: BLOOD SPECIMENOrdering Facility: [facility] Address: [address] [place] [address] Performed By: #### 5 8410-2 ####[facility] LABORATORYCLIA [id number] [address] MCHC (RBC) [Mass/Vol] 32.3 g/dL Normal 30.5-36.0 [facility] Comment on above: Order Comment: Speci men Type: BLOOD SPECIMENOrdering Facility: [facility] Address: [address] [place] [address] Performed By: #### 5 8410-2 ####[facility] LABORATORYCLIA [id number] [address] MCV (RBC) [Entitic vol] 115.8 fL High 80.0-100.0 [facility] Comment on above: Order Comment: Speci men Type: BLOOD SPECIMENOrdering Facility: [facility] Address: [address] [place] [address] Performed By: #### 5 8410-2 ####[facility] LABORATORYCLIA [id number] [address] Nucleated RBC (Bld) [#/Vol] 0.06 10*3/uL High <0.01 [facility] Comment on above: Order Comment: Speci men Type: BLOOD SPECIMENOrdering Facility: [facility] Address: [address] [place] [address] Performed By: #### 5 8410-2 ####[facility] LABORATORYCLIA [id number] [address] Platelet mean volume (Bld) [Entitic vol] 10.2 fL Normal 9.0-12.7 [facility] Comment on above: Order Comment: Speci men Type: BLOOD SPECIMENOrdering Facility: [facility] Address: [address] [place] [address] Performed By: #### 5 8410-2 ####[facility] LABORATORYCLIA [id number] [address] [place] Platelets (Bld) [#/Vol] 66 10*3/uL Low 150-400 [facility] Comment on above: Order Comment: Speci men Type: BLOOD SPECIMENOrdering Facility: [facility] Address: [address] [place] [address] Performed By: #### 5 8410-2 ####[facility] LABORATORYCLIA [id number] [address] [place] RBC (Bld) [#/Vol] 2.03 10*6/uL Low 4.20-6.00 [facility] Comment on above: Order Comment: Speci men Type: BLOOD SPECIMENOrdering Facility: [facility] Address: [address] [place] [address] Performed By: #### 5 8410-2 ####[facility] LABORATORYCLIA [id number] [address] [place] WBC (Bld) [#/Vol] 7.67 10*3/uL Normal 3.70-11.00 [facility] Comment on above: Order Comment: Speci men Type: BLOOD SPECIMENOrdering Facility: [facility] Address: [address] [place] [address] Performed By: #### 5 8410-2 ####[facility] LABORATORYCLIA [id number] [place] [id number] [facility] [place] THERAPY NTon 04-13-2025 THERAPY NT Normal [facility] XR CHEST 1V FRONTALon 2024 XR CHEST 1V FRONTAL Normal [facility] Basic metabolic 2000 panelon 04-12-2025 Anion gap [Moles/Vol] 8 mmol/L Normal 8-15 [facility] Comment on above: Order Comment: Speci men Type: BLOOD SPECIMENOrdering Facility: [facility] Address: [address] [place] [address] Performed By: #### 2 4321-2, , 2776-11 ####[facility] LABORATORYCLIA [id number] [place] [address] [place] Calcium [Mass/Vol] 9.2 mg/dL Normal 8.5-10.2 [facility] Comment on above: Order Comment: Speci men Type: BLOOD SPECIMENOrdering Facility: [facility] Address: [address] [place] [address] Performed By: #### 2 4321-2, , 2776-11 ####[facility] LABORATORYCLIA [id number] [place] [address] [place] Chloride [Moles/Vol] 95 mmol/L Low 98-107 [facility] Comment on above: Order Comment: Speci men Type: BLOOD SPECIMENOrdering Facility: [facility] Address: [address] [place] [address] Performed By: #### 2 4321-2, , 2776-11 ####[facility] LABORATORYCLIA [id number] [place] [address] [place] CO2 [Moles/Vol] 30 mmol/L Normal 22-30 [facility] Comment on above: Order Comment: Speci men Type: BLOOD SPECIMENOrdering Facility: [facility] Address: [address] [place] [address] Performed By: #### 2 4321-2, , 2776-11 ####[facility] LABORATORYCLIA [id number] [place] [address] [place] Creatinine [Mass/Vol] 0.75 mg/dL Normal 0.73-1.22 [facility] Comment on above: Order Comment: Sahil harper Type: BLOOD SPECIMENOrdering Facility: [facility] Address: [address] [place] [address] Performed By: #### 2 4321-2, , 2776-11 ####[facility] LABORATORYCLIA [id number] [place] [id number] [place] Creatinine and Glomerular filtration rate.predicted panel (S/P/Bld) 107 mL/min/1.73m??? Normal >=60 [facility] Comment on above: Order Comment: Sahil harper Type: BLOOD SPECIMENOrdering Facility: [facility] Address: [address] [place] [address] Result Comment: Autumn mated Glomerular Filtration Rate [...] Performed By: #### 2 4321-2, , 2776-11 ####[facility] LABORATORYCLIA [id number] [place] [id number] [place] Glucose [Mass/Vol] 138 mg/dL High 74-99 [facility] Comment on above: Order Comment: Sahil harper Type: BLOOD SPECIMENOrdering Facility: [facility] Address: [address] [place] [address] Result Comment: The [place] [employer] (ADA) provides guidance for cutoff [...] Standards of Medical Care in Diabetes 2016, [place] [employer]. Diabetes Care. 2016.39(Suppl 1). Performed By: #### 2 4321-2, , 2776-11 ####[facility] LABORATORYCLIA [id number] [place] [address] [place] Potassium [Moles/Vol] 4.4 mmol/L Normal 3.7-5.1 [facility] Comment on above: Order Comment: Speci men Type: BLOOD SPECIMENOrdering Facility: [facility] Address: [address] [place] [address] Performed By: #### 2 4321-2, , 2776-11 ####[facility] LABORATORYCLIA [id number] [address] [place] [facility] Sodium [Moles/Vol] 133 mmol/L Low 136-144 [facility] Comment on above: Order Comment: Speci men Type: BLOOD SPECIMENOrdering Facility: [facility] Address: [address] [place] [address] Performed By: #### 2 4321-2, , 27705-23 ####[facility] LABORATORYCLIA [id number] [address] [place] Urea nitrogen [Mass/Vol] 21 mg/dL Normal 9-24 [facility] Comment on above: Order Comment: Speci men Type: BLOOD SPECIMENOrdering Facility: [facility] Address: [address] [place] [address] Performed By: #### 2 4321-2, , 27705-23 ####[facility] LABORATORYCLIA [id number] [place] [id number] [place] CASE MANAGEMon 04-12-2025 CASE MANAGEM Normal [facility] CBC panel Auto (Bld)on 04-12 Erythrocyte distribution width (RBC) [Ratio] 19.0 % High 11.5-15.0 [facility] Comment on above: Order Comment: Speci men Type: BLOOD SPECIMENOrdering Facility: [facility] Address: [address] [place] [address] Performed By: #### 5 8410-2 ####[facility] LABORATORYCLIA [id number] [address] Hematocrit (Bld) [Volume fraction] 25.2 % Low 39.0-51.0 [facility] Comment on above: Order Comment: Speci men Type: BLOOD SPECIMENOrdering Facility: [facility] Address: [address] [place] [address] Performed By: #### 5 8410-2 ####[facility] LABORATORYCLIA [id number] [address] [place] OF [facility] Hemoglobin (Bld) [Mass/Vol] 8.2 g/dL Low 13.0-17.0 [facility] Comment on above: Order Comment: Speci men Type: BLOOD SPECIMENOrdering Facility: [facility] Address: [address] [place] [address] Performed By: #### 5 8410-2 ####[facility] LABORATORYCLIA [id number] [address] STATES OF [facility] MCH (RBC) [Entitic mass] 37.4 pg High 26.0-34.0 [facility] Comment on above: Order Comment: Speci men Type: BLOOD SPECIMENOrdering Facility: [facility] Address: [address] [place] [address] Performed By: #### 5 8410-2 ####[facility] LABORATORYCLIA [id number] [address] [place] MCHC (RBC) [Mass/Vol] 32.5 g/dL Normal 30.5-36.0 [facility] Comment on above: Order Comment: Speci men Type: BLOOD SPECIMENOrdering Facility: [facility] Address: [address] [place] [address] Performed By: #### 5 8410-2 ####[facility] LABORATORYCLIA [id number] [address] [place] MCV (RBC) [Entitic vol] 115.1 fL High 80.0-100.0 [facility] Comment on above: Order Comment: Speci men Type: BLOOD SPECIMENOrdering Facility: [facility] Address: [address] [place] [address] Performed By: #### 5 8410-2 ####[facility] LABORATORYCLIA [id number] [address] STATES [facility] Nucleated RBC (Bld) [#/Vol] 0.08 10*3/uL High <0.01 [facility] Comment on above: Order Comment: Speci men Type: BLOOD SPECIMENOrdering Facility: [facility] Address: [address] [place] [address] Performed By: #### 5 8410-2 ####[facility] LABORATORYCLIA [id number] [address] [place] Platelet mean volume (Bld) [Entitic vol] 10.4 fL Normal 9.0-12.7 [facility] Comment on above: Order Comment: Speci men Type: BLOOD SPECIMENOrdering Facility: [facility] Address: [address] [place] [address] Performed By: #### 5 8410-2 ####[facility] LABORATORYCLIA [id number] [address] [place] Platelets (Bld) [#/Vol] 82 10*3/uL Low 150-400 [facility] Comment on above: Order Comment: Speci men Type: BLOOD SPECIMENOrdering Facility: [facility] Address: [address] [place] [address] Result Comment: No c lot detected. Performed By: #### 5 8410-2 ####[facility] LABORATORYCLIA [id number] [address] [place] RBC (Bld) [#/Vol] 2.19 10*6/uL Low 4.20-6.00 [facility] Comment on above: Order Comment: Speci men Type: BLOOD SPECIMENOrdering Facility: [facility] Address: [address] [place] [address] Performed By: #### 5 8410-2 ####[facility] LABORATORYCLIA [id number] [place] [address] [place] WBC (Bld) [#/Vol] 7.30 10*3/uL Normal 3.70-11.00 [facility] Comment on above: Order Comment: Speci men Type: BLOOD SPECIMENOrdering Facility: [facility] Address: [address] [place] [address] Performed By: #### 5 8410-2 ####[facility] LABORATORYCLIA [id number] [address] [place] CONSULT PROGon 04-12-2025 CONSULT PROG Normal [facility] Calcium.ionized [Moles/Vol]o n 04-12-2025 Calcium.ionized (BldV) [Mass/Vol] 1.17 mmol/L Normal 1.08-1.30 [facility] Comment on above: Order Comment: Speci men Type: BLOOD SPECIMENOrdering Facility: [facility] Address: [address] [place] [address] Performed By: #### 1 995-0 ####[facility]CL[facility] [id number] [address] STATES [facility] Calcium.ionized adjusted to pH 7.4 (Bld) [Moles/Vol] 1.17 mmol/L Normal 1.08-1.30 [facility] Comment on above: Order Comment: Speci men Type: BLOOD SPECIMENOrdering Facility: [facility] Address: [address] [place] [address] Performed By: #### 1 995-0 ####[facility] LABORATORYCLIA [id number] [place] [address] [place] Magnesium SerPl-mCncon 04-12 Magnesium [Mass/Vol] 1.9 mg/dL Normal 1.7-2.3 [facility] Comment on above: Order Comment: Speci men Type: BLOOD SPECIMENOrdering Facility: [facility] Address: [address] [place] [address] Performed By: #### 2 4321-2, 12526-4, 2776-11 ####[facility] LABORATORYCLIA [id number] [place] [address] [facility] [place] NURSING PROGon 04-12-2025 NURSING PROG Normal [facility] Phosphate SerPl-mCncon 04-12 Phosphate [Mass/Vol] 3.6 mg/dL Normal 2.7-4.8 [facility] Comment on above: Order Comment: Speci men Type: BLOOD SPECIMENOrdering Facility: [facility] Address: [address] [place] [address] Performed By: #### 2 4321-2, , 2776-11 ####[facility] LABORATORYCLIA [id number] [address] THERAPY NTon 04-12-2025 THERAPY NT Normal [facility] THERAPY NT Normal [facility] XR CHEST 1V FRONTALon 2024 XR CHEST 1V FRONTAL Normal [facility] Ammonia Plas-sCncon 04-11-20 25 Ammonia (P) [Moles/Vol] 48 umol/L Normal 16-60 [facility] Comment on above: Order Comment: Speci men Type: BLOOD SPECIMENOrdering Facility: [facility] Address: [address] [place] [address] Performed By: #### 1 6362-6 ####[facility] LABORATORYCLIA [id number] [address] [place] Basic metabolic 2000 panelon 04-11-2025 Anion gap [Moles/Vol] 5 mmol/L Low 8-15 [facility] Comment on above: Order Comment: Speci men Type: BLOOD SPECIMENOrdering Facility: [facility] Address: [address] [place] [address] Performed By: #### 2 777-1, 63956-6, ####[facility]ORATORYCLIA [id number] [address] [place] Calcium [Mass/Vol] 9.1 mg/dL Normal 8.5-10.2 [facility] Comment on above: Order Comment: Speci men Type: BLOOD SPECIMENOrdering Facility: [facility] Address: [address] [place] [address] Performed By: #### 2 777-1, 08762-5, ####[facility] LABORATORYCLIA [id number] [place] [address] [place] Chloride [Moles/Vol] 94 mmol/L Low 98-107 [facility] Comment on above: Order Comment: Speci men Type: BLOOD SPECIMENOrdering Facility: [facility] Address: [address] [place] [address] Performed By: #### 2 777-1, 26055-8, ####[facility] LABORATORYCLIA [id number] [place] [address] [place] CO2 [Moles/Vol] 32 mmol/L High 22-30 [facility] Comment on above: Order Comment: Speci men Type: BLOOD SPECIMENOrdering Facility: [facility] Address: [address] [place] [address] Performed By: #### 2 777-1, , ####[facility] LABORATORYCLIA [id number] [place] [address] [place] Creatinine [Mass/Vol] 0.86 mg/dL Normal 0.73-1.22 [facility] Comment on above: Order Comment: Speci men Type: BLOOD SPECIMENOrdering Facility: [facility] Address: [address] [place] [address] Performed By: #### 2 777-1, 86412-3, ####[facility] LABORATORYCLIA [id number] [address] [place] Creatinine and Glomerular filtration rate.predicted panel (S/P/Bld) 103 mL/min/1.73m??? Normal >=60 [facility] Comment on above: Order Comment: Speci men Type: BLOOD SPECIMENOrdering Facility: [facility] Address: [address] [place] [address] Result Comment: Autumn mated Glomerular Filtration Rate [...] actual GFR. Performed By: #### 2 777-1, 81172-3, ####[facility] INDIANACLIA [id number] [place] [address] [place] Glucose [Mass/Vol] 128 mg/dL High 74-99 [facility] Comment on above: Order Comment: Sahil harper Type: BLOOD SPECIMENOrdering Facility: [facility] Address: [address] [place] [address] Result Comment: The [place] [employer] (ADA) provides guidance for cutoff [...] Standards of Medical Care in Diabetes 2016, [place] [employer]. Diabetes Care. 2016.39(Suppl 1). Performed By: #### 2 777-1, 39634-9, ####[facility] HOSPITALIA [id number] [place] [id number] [place] Potassium [Moles/Vol] 4.6 mmol/L Normal 3.7-5.1 [facility] Comment on above: Order Comment: Sahil harper Type: BLOOD SPECIMENOrdering Facility: [facility] Address: [address] [place] [address] Performed By: #### 2 777-1, 74507-9, ####[facility] LABORATORYCLIA [id number] [address] [place] Sodium [Moles/Vol] 131 mmol/L Low 136-144 [facility] Comment on above: Order Comment: Speci men Type: BLOOD SPECIMENOrdering Facility: [facility] Address: [address] [place] [address] Performed By: #### 2 777-1, 67931-5, 71898-1 ####[facility] LABORATORYCLIA [id number] [place] [address] [place] Urea nitrogen [Mass/Vol] 23 mg/dL Normal 9-24 [facility] Comment on above: Order Comment: Speci men Type: BLOOD SPECIMENOrdering Facility: [facility] Address: [address] [place] [address] Performed By: #### 2 777-1, 30763-8, ####[facility] LABORATORYCLIA [id number] [address] CASE MANAGEMon 04-11-2025 CASE MANAGEM Normal [facility] CBC panel Auto (Bld)on 04-11 Erythrocyte distribution width (RBC) [Ratio] 19.6 % High 11.5-15.0 [facility] Comment on above: Order Comment: Speci men Type: BLOOD SPECIMENOrdering Facility: [facility] Address: [address] [place] [address] Performed By: #### 5 8410-2 ####[facility] LABORATORYCLIA [id number] [place] [address] [place] Hematocrit (Bld) [Volume fraction] 23.4 % Low 39.0-51.0 [facility] Comment on above: Order Comment: Speci men Type: BLOOD SPECIMENOrdering Facility: [facility] Address: [address] [place] [address] Performed By: #### 5 8410-2 ####[facility] LABORATORYCLIA [id number] [address] [place] Hemoglobin (Bld) [Mass/Vol] 7.7 g/dL Low 13.0-17.0 [facility] Comment on above: Order Comment: Speci men Type: BLOOD SPECIMENOrdering Facility: [facility] Address: [address] [place] [address] Performed By: #### 5 8410-2 ####[facility] LABORATORYCLIA [id number] [address] MCH (RBC) [Entitic mass] 37.2 pg High 26.0-34.0 [facility] Comment on above: Order Comment: Speci men Type: BLOOD SPECIMENOrdering Facility: [facility] Address: [address] [place] [address] Performed By: #### 5 8410-2 ####[facility] LABORATORYCLIA [id number] [address] MCHC (RBC) [Mass/Vol] 32.9 g/dL Normal 30.5-36.0 [facility] Comment on above: Order Comment: Speci men Type: BLOOD SPECIMENOrdering Facility: [facility] Address: [address] [place] [address] Performed By: #### 5 8410-2 ####[facility] LABORATORYCLIA [id number] [address] MCV (RBC) [Entitic vol] 113.0 fL High 80.0-100.0 [facility] Comment on above: Order Comment: Speci men Type: BLOOD SPECIMENOrdering Facility: [facility] Address: [address] [place] [address] Performed By: #### 5 8410-2 ####[facility] LABORATORYCLIA [id number] [address] Nucleated RBC (Bld) [#/Vol] 0.04 10*3/uL High <0.01 [facility] Comment on above: Order Comment: Speci men Type: BLOOD SPECIMENOrdering Facility: [facility] Address: [address] [place] [address] Performed By: #### 5 8410-2 ####[facility] LABORATORYCLIA [id number] [address] [place] Platelet mean volume (Bld) [Entitic vol] 10.7 fL Normal 9.0-12.7 [facility] Comment on above: Order Comment: Speci men Type: BLOOD SPECIMENOrdering Facility: [facility] Address: [address] [place] [address] Performed By: #### 5 8410-2 ####[facility] LABORATORYCLIA [id number] [place] [address] [place] Platelets (Bld) [#/Vol] 73 10*3/uL Low 150-400 [facility] Comment on above: Order Comment: Speci men Type: BLOOD SPECIMENOrdering Facility: [facility] Address: [address] [place] [address] Result Comment: No c lot detected. Performed By: #### 5 8410-2 ####[facility] LABORATORYCLIA [id number] [address] [place] RBC (Bld) [#/Vol] 2.07 10*6/uL Low 4.20-6.00 [facility] Comment on above: Order Comment: Speci men Type: BLOOD SPECIMENOrdering Facility: [facility] Address: [address] [place] [address] Performed By: #### 5 8410-2 ####[facility] LABORATORYCLIA [id number] [address] [place] WBC (Bld) [#/Vol] 7.14 10*3/uL Normal 3.70-11.00 [facility] Comment on above: Order Comment: Speci men Type: BLOOD SPECIMENOrdering Facility: [facility] Address: [address] [place] [address] Performed By: #### 5 8410-2 ####[facility] LABORATORYCLIA [id number] [address] [place] CONSULT PROGon 04-11-2025 CONSULT PROG Normal [facility] Calcium.ionized [Moles/Vol]o n 04-11-2025 Calcium.ionized (BldV) [Mass/Vol] 1.23 mmol/L Normal 1.08-1.30 [facility] Comment on above: Order Comment: Speci men Type: BLOOD SPECIMENOrdering Facility: [facility] Address: [address] [place] [address] Performed By: #### 1 995-0 ####[facility] LABORATORYCLIA [id number] [place] [address] [place] Calcium.ionized adjusted to pH 7.4 (Bld) [Moles/Vol] 1.23 mmol/L Normal 1.08-1.30 [facility] Comment on above: Order Comment: Speci men Type: BLOOD SPECIMENOrdering Facility: [facility] Address: [address] [place] [address] Performed By: #### 1 995-0 ####[facility] LABORATORYCLIA [id number] [place] [address] [place] Magnesium SerPl-mCncon 04-11 Magnesium [Mass/Vol] 2.7 mg/dL High 1.7-2.3 [facility] Comment on above: Order Comment: Speci men Type: BLOOD SPECIMENOrdering Facility: [facility] Address: [address] [place] [address] Performed By: #### 2 777-1, 74869-6, ####[facility] LABORATORYCLIA [id number] [place] [address] [place] Phosphate SerPl-mCncon 04-11 Phosphate [Mass/Vol] 3.0 mg/dL Normal 2.7-4.8 [facility] Comment on above: Order Comment: Speci men Type: BLOOD SPECIMENOrdering Facility: [facility] Address: [address] [place] [address] Performed By: #### 2 777-1, 21010-7, ####[facility] LABORATORYCLIA [id number] [place] [id number] [place] XR CHEST 1V FRONTALon 2024 XR CHEST 1V FRONTAL Normal [facility] CASE MANAGEMon 04-10-2025 CASE MANAGEM Normal [facility] CASE MGT INIT ASSESon 2024 CASE MGT INIT ASSES Normal [facility] CBC panel Auto (Bld)on 04-10 Erythrocyte distribution width (RBC) [Ratio] 20.4 % High 11.5-15.0 [facility] Comment on above: Order Comment: Speci men Type: BLOOD SPECIMENOrdering Facility: [facility] Address: [address] [place] [address] Performed By: #### 5 8410-2 ####[facility] LABORATORYCLIA [id number] [address] [place] Hematocrit (Bld) [Volume fraction] 24.1 % Low 39.0-51.0 [facility] Comment on above: Order Comment: Speci men Type: BLOOD SPECIMENOrdering Facility: [facility] Address: [address] [place] [address] Performed By: #### 5 8410-2 ####[facility] LABORATORYCLIA [id number] [place] [address] [place] Hemoglobin (Bld) [Mass/Vol] 7.8 g/dL Low 13.0-17.0 [facility] Comment on above: Order Comment: Speci men Type: BLOOD SPECIMENOrdering Facility: [facility] Address: [address] [place] [address] Performed By: #### 5 8410-2 ####[facility] LABORATORYCLIA [id number] [place] [address] [place] MCH (RBC) [Entitic mass] 37.3 pg High 26.0-34.0 [facility] Comment on above: Order Comment: Speci men Type: BLOOD SPECIMENOrdering Facility: [facility] Address: [address] [place] [address] Performed By: #### 5 8410-2 ####[facility] LABORATORYCLIA [id number] [place] [address] [place] MCHC (RBC) [Mass/Vol] 32.4 g/dL Normal 30.5-36.0 [facility] Comment on above: Order Comment: Speci men Type: BLOOD SPECIMENOrdering Facility: [facility] Address: [address] [place] [address] Performed By: #### 5 8410-2 ####[facility] LABORATORYCLIA [id number] [address] MCV (RBC) [Entitic vol] 115.3 fL High 80.0-100.0 [facility] Comment on above: Order Comment: Speci men Type: BLOOD SPECIMENOrdering Facility: [facility] Address: [address] [place] [address] Performed By: #### 5 8410-2 ####[facility] LABORATORYCLIA [id number] [address] [place] Nucleated RBC (Bld) [#/Vol] 0.02 10*3/uL High <0.01 [facility] Comment on above: Order Comment: Speci men Type: BLOOD SPECIMENOrdering Facility: [facility] Address: [address] [place] [address] Performed By: #### 5 8410-2 ####[facility] LABORATORYCLIA [id number] [address] [place] Platelet mean volume (Bld) [Entitic vol] 10.9 fL Normal 9.0-12.7 [facility] Comment on above: Order Comment: Speci men Type: BLOOD SPECIMENOrdering Facility: [facility] Address: [address] [place] [address] Performed By: #### 5 8410-2 ####[facility] LABORATORYCLIA [id number] [address] [place] Platelets (Bld) [#/Vol] 65 10*3/uL Low 150-400 [facility] Comment on above: Order Comment: Speci men Type: BLOOD SPECIMENOrdering Facility: [facility] Address: [address] [place] [address] Performed By: #### 5 8410-2 ####[facility] LABORATORYCLIA [id number] [address] STATES OF [facility] RBC (Bld) [#/Vol] 2.09 10*6/uL Low 4.20-6.00 [facility] Comment on above: Order Comment: Speci men Type: BLOOD SPECIMENOrdering Facility: [facility] Address: [address] [place] [address] Performed By: #### 5 8410-2 ####[facility] LABORATORYCLIA [id number] [address] WBC (Bld) [#/Vol] 6.34 10*3/uL Normal 3.70-11.00 [facility] Comment on above: Order Comment: Speci men Type: BLOOD SPECIMENOrdering Facility: [facility] Address: [address] [place] [address] Performed By: #### 5 8410-2 ####[facility] LABORATORYCLIA [id number] [address] OF [facility] CNCOon 04-10-2025 CNCO Letter Text Normal [facility] CONSULT PROGon 04-10-2025 CONSULT PROG Normal [facility] Calcium.ionized [Moles/Vol]o n 04-10-2025 Calcium.ionized (BldV) [Mass/Vol] 1.28 mmol/L Normal 1.08-1.30 [facility] Comment on above: Order Comment: Speci men Type: BLOOD SPECIMENOrdering Facility: [facility] Address: [address] [place] [address] Performed By: #### 1 995-0 ####[facility] LABORATORYCLIA [id number] [address] Calcium.ionized adjusted to pH 7.4 (Bld) [Moles/Vol] 1.20 mmol/L Normal 1.08-1.30 [facility] Comment on above: Order Comment: Speci men Type: BLOOD SPECIMENOrdering Facility: [facility] Address: [address] [place] [address] Performed By: #### 1 995-0 ####[facility] LABORATORYCLIA [id number] [place] [address] [place] Magnesium SerPl-mCncon 04-10 Magnesium [Mass/Vol] 1.5 mg/dL Low 1.7-2.3 [facility] Comment on above: Order Comment: Speci men Type: BLOOD SPECIMENOrdering Facility: [facility] Address: [address] [place] [address] Performed By: #### 1 9123-9, 78808-6 ####[facility] LABORATORYCLIA [id number] [place] [address] [place] Renal function 2000 panelon 04-10-2025 Albumin [Mass/Vol] 2.8 g/dL Low 3.9-4.9 [facility] Comment on above: Order Comment: Speci men Type: BLOOD SPECIMENOrdering Facility: [facility] Address: [address] [place] [address] Performed By: #### 1 9123-9, 17853-9 ####[facility] LABORATORYCLIA [id number] [place] [address] [place] Anion gap [Moles/Vol] 5 mmol/L Low 8-15 [facility] Comment on above: Order Comment: Speci men Type: BLOOD SPECIMENOrdering Facility: [facility] Address: [address] [place] [address] Performed By: #### 1 9123-9, 39415-0 ####[facility] LABORATORYCLIA [id number] [place] [address] [place] Calcium [Mass/Vol] 9.2 mg/dL Normal 8.5-10.2 [facility] Comment on above: Order Comment: Speci men Type: BLOOD SPECIMENOrdering Facility: [facility] Address: [address] [place] [address] Performed By: #### 1 9123-9, 20179-0 ####[facility] LABORATORYCLIA [id number] [place] [address] [place] Chloride [Moles/Vol] 96 mmol/L Low 98-107 [facility] Comment on above: Order Comment: Speci men Type: BLOOD SPECIMENOrdering Facility: [facility] Address: [address] [place] [address] Performed By: #### 1 9123-9, 56808-7 ####[facility] LABORATORYCLIA [id number] [address] STATES OF [facility] CO2 [Moles/Vol] 31 mmol/L High 22-30 [facility] Comment on above: Order Comment: Speci men Type: BLOOD SPECIMENOrdering Facility: [facility] Address: [address] [place] [address] Performed By: #### 1 9123-9, ####[facility] LABORATORYCLIA [id number] [address] Creatinine [Mass/Vol] 1.10 mg/dL Normal 0.73-1.22 [facility] Comment on above: Order Comment: Speci men Type: BLOOD SPECIMENOrdering Facility: [facility] Address: [address] [place] [address] Performed By: #### 1 9123-9, 39022-0 ####[facility] LABORATORYCLIA [id number] [address] Creatinine and Glomerular filtration rate.predicted panel (S/P/Bld) 80 mL/min/1.73m??? Normal >=60 [facility] Comment on above: Order Comment: Speci men Type: BLOOD SPECIMENOrdering Facility: [facility] Address: [address] [place] [address] Result Comment: Autumn mated Glomerular Filtration Rate [...] reflect actual GFR. Performed By: #### 1 9123-9 ####[facility] LABORATORYCLIA [id number] [place] [address] [place] Glucose [Mass/Vol] 161 mg/dL High 74-99 [facility] Comment on above: Order Comment: Speci men Type: BLOOD SPECIMENOrdering Facility: [facility] Address: [address] [place] [address] Result Comment: The [place] [employer] (ADA) provides guidance for cutoff [...] Standards of Medical Care in Diabetes 2016, [place] [employer]. Diabetes Care. 2016.39(Suppl 1). Performed By: #### 1 9123-9, 28048-6 ####[facility] [id number] [place] [address] [place] Phosphate [Mass/Vol] 3.6 mg/dL Normal 2.7-4.8 [facility] Comment on above: Order Comment: Speci men Type: BLOOD SPECIMENOrdering Facility: [facility] Address: [address] [place] [address] Performed By: #### 1 9123-9, ####[facility]IA [id number] [place] [address] [place] Potassium [Moles/Vol] 5.1 mmol/L Normal 3.7-5.1 [facility] Comment on above: Order Comment: Speci men Type: BLOOD SPECIMENOrdering Facility: [facility] Address: [address] [place] [address] Performed By: #### 1 9123-9, 47927-3 ####[facility] LABORATORYCLIA [id number] [place] [address] [place] Sodium [Moles/Vol] 132 mmol/L Low 136-144 [facility] Comment on above: Order Comment: Speci men Type: BLOOD SPECIMENOrdering Facility: [facility] Address: [address] [place] [address] Performed By: #### 1 9123-9, 39069-3 ####[facility] LABORATORYCLIA [id number] [place] [address] [place] Urea nitrogen [Mass/Vol] 17 mg/dL Normal 9-24 [facility] Comment on above: Order Comment: Speci men Type: BLOOD SPECIMENOrdering Facility: [facility] Address: [address] [place] [address] Performed By: #### 1 9123-9, 73226-1 ####[facility] LABORATORYCLIA [id number] [place] [id number] [place] THERAPY NTon 04-10-2025 THERAPY NT Normal [facility] US ASCITES SURVEYon 04-10-20 25 US ASCITES SURVEY Normal [facility] XR CHEST 1V FRONTALon 2024 XR CHEST 1V FRONTAL Normal [facility] Basic metabolic 2000 panelon 04-09-2025 Anion gap [Moles/Vol] 9 mmol/L Normal 8-15 [facility] Comment on above: Order Comment: Speci men Type: BLOOD SPECIMENOrdering Facility: [facility] Address: [address] [place] [address] Performed By: #### 2 4321-2, 2776-11, ####[facility] LABORATORYCLIA [id number] [place] [address] [place] Calcium [Mass/Vol] 8.6 mg/dL Normal 8.5-10.2 [facility] Comment on above: Order Comment: Speci men Type: BLOOD SPECIMENOrdering Facility: [facility] Address: [address] [place] [address] Performed By: #### 2 4321-2, 2777, ####[facility] LABORATORYCLIA [id number] [place] [address] [place] Chloride [Moles/Vol] 97 mmol/L Low 98-107 [facility] Comment on above: Order Comment: Speci men Type: BLOOD SPECIMENOrdering Facility: [facility] Address: [address] [place] [address] Performed By: #### 2 4321-2, 2777-1, ####[facility] LABORATORYCLIA [id number] [address] [facility] CO2 [Moles/Vol] 27 mmol/L Normal 22-30 [facility] Comment on above: Order Comment: Speci men Type: BLOOD SPECIMENOrdering Facility: [facility] Address: [address] [place] [address] Performed By: #### 2 4321-2, 2777-1, ####[facility] LABORATORYCLIA [id number] [address] Creatinine [Mass/Vol] 0.61 mg/dL Low 0.73-1.22 [facility] Comment on above: Order Comment: Speci men Type: BLOOD SPECIMENOrdering Facility: [facility] Address: [address] [place] [address] Performed By: #### 2 4321-2, 277-1, ####[facility] LABORATORYCLIA [id number] [address] Creatinine and Glomerular filtration rate.predicted panel (S/P/Bld) 114 mL/min/1.73m??? Normal >=60 [facility] Comment on above: Order Comment: Speci men Type: BLOOD SPECIMENOrdering Facility: [facility] Address: [address] [place] [address] Result Comment: Autumn mated Glomerular Filtration Rate [...] actual GFR. Performed By: #### 2 4321-2, 2777, ####[facility]CLIA [id number] [place] [address] [place] Glucose [Mass/Vol] 168 mg/dL High 74-99 [facility] Comment on above: Order Comment: Sahil harper Type: BLOOD SPECIMENOrdering Facility: [facility] Address: [address] [place], [place] [id number] Result Comment: The [place] [employer] (ADA) provides guidance for cutoff [...] Standards of Medical Care in Diabetes 2016, [place] [employer]. Diabetes Care. 2016.39(Suppl 1). Performed By: #### 2 4321-2, 2776-11, ####[facility]CLIA [id number] [place] [address] [place] Potassium [Moles/Vol] 4.4 mmol/L Normal 3.7-5.1 [facility] Comment on above: Order Comment: Sahil haprer Type: BLOOD SPECIMENOrdering Facility: [facility] Address: [address] [place] [address] Performed By: #### 2 4321-2, 27705-23, ####[facility] LABORATORYCLIA [id number] [place] [address] [place] Sodium [Moles/Vol] 133 mmol/L Low 136-144 [facility] Comment on above: Order Comment: Sahil harper Type: BLOOD SPECIMENOrdering Facility: [facility] Address: [address] [place], [place] [address] Performed By: #### 2 4321-2, 2777-1, ####[facility] LABORATORYCLIA [id number] [address] Urea nitrogen [Mass/Vol] 5 mg/dL Low 9-24 [facility] Comment on above: Order Comment: Speci men Type: BLOOD SPECIMENOrdering Facility: [facility] Address: [address] [place] [address] Performed By: #### 2 4321-2, 2776-, ####[facility] LABORATORYCLIA [id number] [address] CBC panel Auto (Bld)on 04-09 Erythrocyte distribution width (RBC) [Ratio] 19.5 % High 11.5-15.0 [facility] Comment on above: Order Comment: Speci men Type: BLOOD SPECIMENOrdering Facility: [facility] Address: [address] [place] [address] Performed By: #### 5 8410-2 ####[facility] LABORATORYCLIA [id number] [address] Hematocrit (Bld) [Volume fraction] 27.5 % Low 39.0-51.0 [facility] Comment on above: Order Comment: Speci men Type: BLOOD SPECIMENOrdering Facility: [facility] Address: [address] [place] [address] Performed By: #### 5 8410-2 ####[facility] LABORATORYCLIA [id number] [address] STATES [facility] Hemoglobin (Bld) [Mass/Vol] 8.9 g/dL Low 13.0-17.0 [facility] Comment on above: Order Comment: Speci men Type: BLOOD SPECIMENOrdering Facility: [facility] Address: [address] [place] [address] Performed By: #### 5 8410-2 ####[facility] LABORATORYCLIA [id number] [address] MCH (RBC) [Entitic mass] 36.9 pg High 26.0-34.0 [facility] Comment on above: Order Comment: Speci men Type: BLOOD SPECIMENOrdering Facility: [facility] Address: [address] [place] [address] Performed By: #### 5 8410-2 ####[facility] LABORATORYCLIA [id number] [address] STATES [facility] MCHC (RBC) [Mass/Vol] 32.4 g/dL Normal 30.5-36.0 [facility] Comment on above: Order Comment: Speci men Type: BLOOD SPECIMENOrdering Facility: [facility] Address: [address] [place] [address] Performed By: #### 5 8410-2 ####[facility] LABORATORYCLIA [id number] [address] STATES [facility] MCV (RBC) [Entitic vol] 114.1 fL High 80.0-100.0 [facility] Comment on above: Order Comment: Speci men Type: BLOOD SPECIMENOrdering Facility: [facility] Address: [address] [place] [address] Performed By: #### 5 8410-2 ####[facility] LABORATORYCLIA [id number] [address] Nucleated RBC (Bld) [#/Vol] 10*3/uL Normal <0.01 [facility] Comment on above: Order Comment: Speci men Type: BLOOD SPECIMENOrdering Facility: [facility] Address: [address] [place] [address] Performed By: #### 5 8410-2 ####[facility] LABORATORYCLIA [id number] [address] Platelet mean volume (Bld) [Entitic vol] 10.2 fL Normal 9.0-12.7 [facility] Comment on above: Order Comment: Speci men Type: BLOOD SPECIMENOrdering Facility: [facility] Address: [address] [place] [address] Performed By: #### 5 8410-2 ####[facility] LABORATORYCLIA [id number] [place] [id number] [facility] [place] Platelets (Bld) [#/Vol] 69 10*3/uL Low 150-400 [facility] Comment on above: Order Comment: Speci men Type: BLOOD SPECIMENOrdering Facility: [facility] Address: [address] [place] [address] Performed By: #### 5 8410-2 ####[facility] LABORATORYCLIA [id number] [address] [place] RBC (Bld) [#/Vol] 2.41 10*6/uL Low 4.20-6.00 [facility] Comment on above: Order Comment: Speci men Type: BLOOD SPECIMENOrdering Facility: [facility] Address: [address] [place] [address] Performed By: #### 5 8410-2 ####[facility] LABORATORYCLIA [id number] [address] WBC (Bld) [#/Vol] 6.05 10*3/uL Normal 3.70-11.00 [facility] Comment on above: Order Comment: Speci men Type: BLOOD SPECIMENOrdering Facility: [facility] Address: [address] [place] [address] Performed By: #### 5 8410-2 ####[facility] LABORATORYCLIA [id number] [address] Erythrocyte distribution width (RBC) [Ratio] 15.6 % High 11.5-15.0 [facility] Comment on above: Order Comment: Speci men Type: BLOOD SPECIMENOrdering Facility: [facility] Address: [address] [place] [address] Performed By: #### 5 8410-2 ####[facility] LABORATORYCLIA [id number] [address] Hematocrit (Bld) [Volume fraction] 25.3 % Low 39.0-51.0 [facility] Comment on above: Order Comment: Speci men Type: BLOOD SPECIMENOrdering Facility: [facility] Address: [address] [place] [address] Performed By: #### 5 8410-2 ####[facility] LABORATORYCLIA [id number] [address] STATES [facility] Hemoglobin (Bld) [Mass/Vol] 8.1 g/dL Low 13.0-17.0 [facility] Comment on above: Order Comment: Speci men Type: BLOOD SPECIMENOrdering Facility: [facility] Address: [address] [place] [address] Performed By: #### 5 8410-2 ####[facility] LABORATORYCLIA [id number] [address] STATES [facility] MCH (RBC) [Entitic mass] 38.0 pg High 26.0-34.0 [facility] Comment on above: Order Comment: Speci men Type: BLOOD SPECIMENOrdering Facility: [facility] Address: [address] [place] [address] Performed By: #### 5 8410-2 ####[facility] LABORATORYCLIA [id number] [address] [place] MCHC (RBC) [Mass/Vol] 32.0 g/dL Normal 30.5-36.0 [facility] Comment on above: Order Comment: Speci men Type: BLOOD SPECIMENOrdering Facility: [facility] Address: [address] [place] [address] Performed By: #### 5 8410-2 ####[facility] LABORATORYCLIA [id number] [address] [place] MCV (RBC) [Entitic vol] 118.8 fL High 80.0-100.0 [facility] Comment on above: Order Comment: Speci men Type: BLOOD SPECIMENOrdering Facility: [facility] Address: [address] [place] [address] Performed By: #### 5 8410-2 ####[facility] LABORATORYCLIA [id number] [address] [place] Nucleated RBC (Bld) [#/Vol] 10*3/uL Normal <0.01 [facility] Comment on above: Order Comment: Speci men Type: BLOOD SPECIMENOrdering Facility: [facility] Address: [address] [place] [address] Performed By: #### 5 8410-2 ####[facility] LABORATORYCLIA [id number] [address] [place] Platelet mean volume (Bld) [Entitic vol] 10.3 fL Normal 9.0-12.7 [facility] Comment on above: Order Comment: Speci men Type: BLOOD SPECIMENOrdering Facility: [facility] Address: [address] [place] [address] Performed By: #### 5 8410-2 ####[facility] LABORATORYCLIA [id number] [address] Platelets (Bld) [#/Vol] 74 10*3/uL Low 150-400 [facility] Comment on above: Order Comment: Speci men Type: BLOOD SPECIMENOrdering Facility: [facility] Address: [address] [place] [address] Result Comment: No c lot detected. Performed By: #### 5 8410-2 ####[facility] LABORATORYCLIA [id number] [address] [place] RBC (Bld) [#/Vol] 2.13 10*6/uL Low 4.20-6.00 [facility] Comment on above: Order Comment: Speci men Type: BLOOD SPECIMENOrdering Facility: [facility] Address: [address] [place] [address] Performed By: #### 5 8410-2 ####[facility] LABORATORYCLIA [id number] [address] [place] WBC (Bld) [#/Vol] 3.32 10*3/uL Low 3.70-11.00 [facility] Comment on above: Order Comment: Speci men Type: BLOOD SPECIMENOrdering Facility: [facility] Address: [address] [place] [address] Performed By: #### 5 8410-2 ####[facility] LABORATORYCLIA [id number] [address] CONFIRM BLOOD TYPEon 025 ABO AB Normal [facility] Comment on above: Order Comment: Speci men Type: BLOOD SPECIMENOrdering Facility: [facility] Address: [address] [place] [address] Performed By: #### C ONABO ####[facility] BLOOD BANKCLIA [id number] [address] [place] Rh Nom (Bld) Positive Normal [facility] Comment on above: Order Comment: Speci men Type: BLOOD SPECIMENOrdering Facility: [facility] Address: [address] [place] [address] Performed By: #### C ONABO ####[facility] BLOOD BANKCLIA [id number] [address] [place] CONSULTon 04-09-2025 CONSULT Normal [facility] Calcium.ionized [Moles/Vol]o n 04-09-2025 Calcium.ionized (BldV) [Mass/Vol] 1.17 mmol/L Normal 1.08-1.30 [facility] Comment on above: Order Comment: Speci men Type: BLOOD SPECIMENOrdering Facility: [facility] Address: [address] [place] [address] Performed By: #### 1 995-0 ####[facility] LABORATORYCLIA [id number] [address] Calcium.ionized adjusted to pH 7.4 (Bld) [Moles/Vol] 1.13 mmol/L Normal 1.08-1.30 [facility] Comment on above: Order Comment: Speci men Type: BLOOD SPECIMENOrdering Facility: [facility] Address: [address] [place] [address] Performed By: #### 1 995-0 ####[facility] LABORATORYCLIA [id number] [place] [address] [place] ED NOTEon 04-09-2025 ED NOTE HNO ID: [id number] Author: SHANIQUA RIDDLE RN Service: ? Author Type: Registered Nurse Type: ED Notes Filed: 04/09/2025 08:39 Note Text: Report to gabriela YING Normal [facility] ED NOTE Normal [facility] Magnesium SerPl-mCncon 04-09 Magnesium [Mass/Vol] 1.3 mg/dL Low 1.7-2.3 [facility] Comment on above: Order Comment: Speci men Type: BLOOD SPECIMENOrdering Facility: [facility] Address: [address] [place] [address] Performed By: #### 2 4321-2, 2777-1, ####[facility] LABORATORYCLIA [id number] [address] STATES [facility] Phosphate SerPl-[facility] 04-09 Phosphate [Mass/Vol] 3.4 mg/dL Normal 2.7-4.8 [facility] Comment on above: Order Comment: Speci men Type: BLOOD SPECIMENOrdering Facility: [facility] Address: [address] [place] [address] Performed By: #### 2 4321-2, 277-1, ####[facility] LABORATORYCLIA [id number] [address] [place] STAPHYLOCOCCUS AUREUS AND MR SA SCREEN, PCR, NASALon 04-09-2025 S. aureus and MRSA panel MIKE+probe (Nose) Methicillin-SUSCEPTIBLE Staphylococcus aureus Detected Abnormal Not Detected [facility] Comment on above: Order Comment: Speci men Type: SWABOrdering Facility: [facility] Address: [address] [place] [address] Performed By: #### S APCR ####[facility] LABORATORYCLIA [id number] [place] [address] [place] XR CHEST 1V FRONTALon 2024 XR CHEST 1V FRONTAL Normal [facility] CBC W Auto Differential pane l (Bld)on 04-08-2025 Basophils (Bld) [#/Vol] 0.03 10*3/uL Normal <0.11 [facility] Comment on above: Order Comment: Speci men Type: BLOOD SPECIMENOrdering Facility: [facility] Address: [address] [place] [address] Performed By: #### 5 7021-8 ####[facility]ORATORYCLIA [id number] [address] [place] Basophils/100 WBC (Bld) 0.7 % Normal [facility] Comment on above: Order Comment: Speci men Type: BLOOD SPECIMENOrdering Facility: [facility] Address: [address] [place] [address] Performed By: #### 5 7021-8 ####[facility] LABORATORYCLIA [id number] [address] [facility] Differential cell count method Nom (Bld) Auto Normal [facility] Comment on above: Order Comment: Speci men Type: BLOOD SPECIMENOrdering Facility: [facility] Address: [address] [place] [address] Performed By: #### 5 7021-8 ####[facility]ORATORYCLIA [id number] [address] [place] Eosinophils (Bld) [#/Vol] 0.04 10*3/uL Normal <0.46 [facility] Comment on above: Order Comment: Speci men Type: BLOOD SPECIMENOrdering Facility: [facility] Address: [address] [place] [address] Performed By: #### 5 7021-8 ####[facility]ORATORYCLIA [id number] [address] Eosinophils/100 WBC (Bld) 0.9 % Normal [facility] Comment on above: Order Comment: Speci men Type: BLOOD SPECIMENOrdering Facility: [facility] Address: [address] [place] [address] Performed By: #### 5 7021-8 ####[facility]ORATORYCLIA [id number] [address] [facility] Erythrocyte distribution width (RBC) [Ratio] 15.0 % Normal 11.5-15.0 [facility] Comment on above: Order Comment: Speci men Type: BLOOD SPECIMENOrdering Facility: [facility] Address: [address] [place] [address] Performed By: #### 5 7021-8 ####[facility] LABORATORYCLIA [id number] [address] [facility] Hematocrit (Bld) [Volume fraction] 30.7 % Low 39.0-51.0 [facility] Comment on above: Order Comment: Speci men Type: BLOOD SPECIMENOrdering Facility: [facility] Address: [address] [place] [address] Performed By: #### 5 7021-8 ####[facility] LABORATORYCLIA [id number] [address] [place] Hemoglobin (Bld) [Mass/Vol] 9.9 g/dL Low 13.0-17.0 [facility] Comment on above: Order Comment: Speci men Type: BLOOD SPECIMENOrdering Facility: [facility] Address: [address] [place] [address] Performed By: #### 5 7021-8 ####[facility] LABORATORYCLIA [id number] [address] [place] Immature granulocytes (Bld) [#/Vol] 0.05 10*3/uL Normal <0.10 [facility] Comment on above: Order Comment: Speci men Type: BLOOD SPECIMENOrdering Facility: [facility] Address: [address] [place] [address] Performed By: #### 5 7021-8 ####[facility] LABORATORYCLIA [id number] [address] Immature granulocytes/100 WBC (Bld) 1.1 % Normal [facility] Comment on above: Order Comment: Speci men Type: BLOOD SPECIMENOrdering Facility: [facility] Address: [address] [place] [address] Performed By: #### 5 7021-8 ####[facility] LABORATORYCLIA [id number] [address] [place] Lymphocytes (Bld) [#/Vol] 0.66 10*3/uL Low 1.00-4.00 [facility] Comment on above: Order Comment: Speci men Type: BLOOD SPECIMENOrdering Facility: [facility] Address: [address] [place] [address] Performed By: #### 5 7021-8 ####[facility] LABORATORYCLIA [id number] [address] Lymphocytes/100 WBC (Bld) 15.1 % Normal [facility] Comment on above: Order Comment: Speci men Type: BLOOD SPECIMENOrdering Facility: [facility] Address: [address] [place] [address] Performed By: #### 5 7021-8 ####[facility] LABORATORYCLIA [id number] [address] [place] MCH (RBC) [Entitic mass] 38.4 pg High 26.0-34.0 [facility] Comment on above: Order Comment: Speci men Type: BLOOD SPECIMENOrdering Facility: [facility] Address: [address] [place] [address] Performed By: #### 5 7021-8 ####[facility] LABORATORYCLIA [id number] [address] [place] MCHC (RBC) [Mass/Vol] 32.2 g/dL Normal 30.5-36.0 [facility] Comment on above: Order Comment: Speci men Type: BLOOD SPECIMENOrdering Facility: [facility] Address: [address] [place] [address] Performed By: #### 5 7021-8 ####[facility] LABORATORYCLIA [id number] [address] [place] MCV (RBC) [Entitic vol] 119.0 fL High 80.0-100.0 [facility] Comment on above: Order Comment: Speci men Type: BLOOD SPECIMENOrdering Facility: [facility] Address: [address] [place] [address] Performed By: #### 5 7021-8 ####[facility] LABORATORYCLIA [id number] [address] [place] Monocytes (Bld) [#/Vol] 0.54 10*3/uL Normal <0.87 [facility] Comment on above: Order Comment: Speci men Type: BLOOD SPECIMENOrdering Facility: [facility] Address: [address] [place] [address] Performed By: #### 5 7021-8 ####[facility] LABORATORYCLIA [id number] [address] Monocytes/100 WBC (Bld) 12.4 % Normal [facility] Comment on above: Order Comment: Speci men Type: BLOOD SPECIMENOrdering Facility: [facility] Address: [address] [place] [address] Performed By: #### 5 7021-8 ####[facility] LABORATORYCLIA [id number] [address] Neutrophils (Bld) [#/Vol] 3.04 10*3/uL Normal 1.45-7.50 [facility] Comment on above: Order Comment: Speci men Type: BLOOD SPECIMENOrdering Facility: [facility] Address: [address] [place] [address] Performed By: #### 5 7021-8 ####[facility] LABORATORYCLIA [id number] [address] [place] Neutrophils/100 WBC (Bld) 69.8 % Normal [facility] Comment on above: Order Comment: Speci men Type: BLOOD SPECIMENOrdering Facility: [facility] Address: [address] [place] [address] Performed By: #### 5 7021-8 ####[facility] LABORATORYCLIA [id number] [place] [address] [place] Nucleated RBC (Bld) [#/Vol] 10*3/uL Normal <0.01 [facility] Comment on above: Order Comment: Speci men Type: BLOOD SPECIMENOrdering Facility: [facility] Address: [address] [place] [address] Performed By: #### 5 7021-8 ####[facility] LABORATORYCLIA [id number] [place] [address] [place] Nucleated RBC/100 WBC (Bld) [Ratio] 0.0 /100 WBC Normal [facility] Comment on above: Order Comment: Speci men Type: BLOOD SPECIMENOrdering Facility: [facility] Address: [address] [place] [address] Performed By: #### 5 7021-8 ####[facility] LABORATORYCLIA [id number] [address] [place] Platelet mean volume (Bld) [Entitic vol] 10.0 fL Normal 9.0-12.7 [facility] Comment on above: Order Comment: Speci men Type: BLOOD SPECIMENOrdering Facility: [facility] Address: [address] [place] [address] Performed By: #### 5 7021-8 ####[facility] LABORATORYCLIA [id number] [address] [place] Platelets (Bld) [#/Vol] 75 10*3/uL Low 150-400 [facility] Comment on above: Order Comment: Speci men Type: BLOOD SPECIMENOrdering Facility: [facility] Address: [address] [place] [address] Result Comment: No c lot detected. Performed By: #### 5 7021-8 ####[facility] LABORATORYCLIA [id number] [address] [place] RBC (Bld) [#/Vol] 2.58 10*6/uL Low 4.20-6.00 [facility] Comment on above: Order Comment: Speci men Type: BLOOD SPECIMENOrdering Facility: [facility] Address: [address] [place] [address] Performed By: #### 5 7021-8 ####[facility] LABORATORYCLIA [id number] [place] [address] [place] WBC (Bld) [#/Vol] 4.36 10*3/uL Normal 3.70-11.00 [facility] Comment on above: Order Comment: Speci men Type: BLOOD SPECIMENOrdering Facility: [facility] Address: [address] [place] [address] Performed By: #### 5 7021-8 ####[facility] LABORATORYCLIA [id number] [place] [address] [place] CT ABD/PEL W IVCONon 025 CT ABD/PEL W IVCON Invalid Interpretation Code [facility] Comprehensive metabolic 2000 panelon 04-08-2025 Albumin [Mass/Vol] 3.3 g/dL Low 3.9-4.9 [facility] Comment on above: Order Comment: Speci men Type: BLOOD SPECIMENOrdering Facility: [facility] Address: [address] [place] [address] Performed By: #### 1 9123-9, 98958-3, 3040-3 ####[facility] LABORATORYCLIA [id number] [address] [place] ALP [Catalytic activity/Vol] 185 U/L High 38-113 [facility] Comment on above: Order Comment: Speci men Type: BLOOD SPECIMENOrdering Facility: [facility] Address: [address] [place] [address] Performed By: #### 1 9123-9, 49858-6, 3040-3 ####[facility] LABORATORYCLIA [id number] [address] [place] ALT With P-5'-P [Catalytic activity/Vol] 35 U/L Normal 10-54 [facility] Comment on above: Order Comment: Speci men Type: BLOOD SPECIMENOrdering Facility: [facility] Address: [address] [place] [address] Performed By: #### 1 9123-9, 27674-5, 3040-3 ####[facility] LABORATORYCLIA [id number] [place] [address] [place] Anion gap [Moles/Vol] 9 mmol/L Normal 8-15 [facility] Comment on above: Order Comment: Speci men Type: BLOOD SPECIMENOrdering Facility: [facility] Address: [address] [place] [address] Performed By: #### 1 9123-9, 74883-5, 3039-3 ####[facility] LABORATORYCLIA [id number] [place] [address] [place] AST With P-5'-P [Catalytic activity/Vol] 91 U/L High 14-40 [facility] Comment on above: Order Comment: Speci men Type: BLOOD SPECIMENOrdering Facility: [facility] Address: [address] [place] [address] Performed By: #### 1 9123-9, , 3039-3 ####[facility] LABORATORYCLIA [id number] [place] [address] [place] Bilirubin [Mass/Vol] 16.2 mg/dL High 0.2-1.3 [facility] Comment on above: Order Comment: Speci men Type: BLOOD SPECIMENOrdering Facility: [facility] Address: [address] [place] [address] Performed By: #### 1 9123-9, 85538-9, 0-3 ####[facility] LABORATORYCLIA [id number] [place] [address] [place] Calcium [Mass/Vol] 9.1 mg/dL Normal 8.5-10.2 [facility] Comment on above: Order Comment: Speci men Type: BLOOD SPECIMENOrdering Facility: [facility] Address: [address] [place] [address] Performed By: #### 1 9123-9, 09020-5, 0-3 ####[facility] LABORATORYCLIA [id number] [place] [address] [place] Chloride [Moles/Vol] 96 mmol/L Low 98-107 [facility] Comment on above: Order Comment: Speci men Type: BLOOD SPECIMENOrdering Facility: [facility] Address: [address] [place] [address] Performed By: #### 1 9123-9, 79087-3, 3040-3 ####[facility] LABORATORYCLIA [id number] [address] STATES OF [facility] CO2 [Moles/Vol] 28 mmol/L Normal 22-30 [facility] Comment on above: Order Comment: Speci men Type: BLOOD SPECIMENOrdering Facility: [facility] Address: [address] [place] [address] Performed By: #### 1 9123-9, 04016-0, 0-3 ####[facility] LABORATORYCLIA [id number] [address] STATES OF [facility] Creatinine [Mass/Vol] 0.70 mg/dL Low 0.73-1.22 [facility] Comment on above: Order Comment: Speci men Type: BLOOD SPECIMENOrdering Facility: [facility] Address: [address] [place] [address] Performed By: #### 1 9123-9, 08834-0, 3040-3 ####[facility] LABORATORYCLIA [id number] [address] Creatinine and Glomerular filtration rate.predicted panel (S/P/Bld) 109 mL/min/1.73m??? Normal >=60 [facility] Comment on above: Order Comment: Speci men Type: BLOOD SPECIMENOrdering Facility: [facility] Address: [address] [place] [address] Result Comment: Autumn mated Glomerular Filtration Rate [...] actual GFR. Performed By: #### 1 9123-9, 01655-3, 3040-3 ####[facility] LABORATORYCLIA [id number] [place] [address] [place] Glucose [Mass/Vol] 138 mg/dL High 74-99 [facility] Comment on above: Order Comment: Speci men Type: BLOOD SPECIMENOrdering Facility: [facility] Address: [address] [place] [address] Result Comment: The [place] [employer] (ADA) provides guidance for cutoff [...] Standards of Medical Care in Diabetes 2016, [place] [employer]. Diabetes Care. 2016.39(Suppl 1). Performed By: #### 1 9123-9, 80632-3, 0-3 ####[facility] LABORATORYCLIA [id number] [place] [address] [place] Potassium [Moles/Vol] 3.7 mmol/L Normal 3.7-5.1 [facility] Comment on above: Order Comment: Speci men Type: BLOOD SPECIMENOrdering Facility: [facility] Address: [address] [place] [address] Performed By: #### 1 9123-9, 23226-2, 3040-3 ####[facility] LABORATORYCLIA [id number] [place] [address] [place] Protein [Mass/Vol] Normal [facility] Comment on above: Order Comment: Speci men Type: BLOOD SPECIMENOrdering Facility: [facility] Address: [address] [place] [address] Result Comment: Unab le to assay due to interference from icterus. Performed By: #### 1 9123-9, 52189-7, 3040-3 ####[facility] LABORATORYCLIA [id number] [place] [address] [place] Sodium [Moles/Vol] 133 mmol/L Low 136-144 [facility] Comment on above: Order Comment: Speci men Type: BLOOD SPECIMENOrdering Facility: [facility] Address: [address] [place] [address] Performed By: #### 1 9123-9, 18088-6, 3040-3 ####[facility] LABORATORYCLIA [id number] [place] [address] [place] Urea nitrogen [Mass/Vol] 4 mg/dL Low 9-24 [facility] Comment on above: Order Comment: Speci men Type: BLOOD SPECIMENOrdering Facility: [facility] Address: [address] [place] [address] Performed By: #### 1 9123-9, 73258-5, 3040-3 ####[facility] LABORATORYCLIA [id number] [place] [address] [place] ED NOTEon 04-08-2025 ED NOTE HNO ID: [id number] Author: JONA CUMMINGS RN Service: Nursing Author Type: Registered Nurse Type: ED Notes Filed: 04/08/2025 23:13 Note Text: 450ml of blood immediately in pluera-vac, estimated 200-300ml on floor [facility] ED NOTE HNO ID: [id number] Author: JONA CUMMINGS RN Service: Nursing Author Type: Registered Nurse Type: ED Notes Filed: 04/08/2025 22:49 Note Text: [facility] ED NOTE HNO ID: [id number] Author: ISABEL ARMENTA RN Service: Nursing Author Type: Registered Nurse Type: ED Notes Filed: 04/08/2025 22:45 Note Text: Report given to DEONNA San. [facility] ED NOTE HNO ID: [id number] Author: ISABEL ARMENTA RN Service: Nursing Author Type: Registered Nurse Type: ED Notes Filed: 04/08/2025 22:15 Note Text: Surgery residents at bedside to place a chest tube. [facility] ED NOTE HNO ID: [id number] Author: ISABEL ARMENTA RN Service: Nursing Author Type: Registered Nurse Type: ED Notes Filed: 04/08/2025 20:24 Note Text: Trauma at bedside. [facility] ED NOTE HNO ID: [id number] Author: ISABEL ARMENTA RN Service: ? Author Type: Registered Nurse Type: ED Notes Filed: 04/08/2025 18:35 Note Text: Not in room yet. [facility] ED NOTE HNO ID: [id number] Author: ISABEL ARMENTA RN Service: Nursing Author Type: Registered Nurse Type: ED Notes Filed: 04/08/2025 18:07 Note Text: CT called. [facility] ED NOTE HNO ID: [id number] Author: ISABEL ARMENTA RN Service: Nursing Author Type: Registered Nurse Type: ED Notes Filed: 04/08/2025 18:27 Note Text: Pt connected to store promoter. Pulse ox 85% on RA, pt placed on 2L-4L with O2 at 95%. LIP notified. [facility] ED NOTE HNO ID: [id number] Author: REAGAN MAYES RN Service: ? Author Type: Registered Nurse Type: ED Notes Filed: 04/08/2025 16:14 Note Text: Bed: 41-ED Expected date: Expected time: Means of arrival: Comments: Triage when clean [facility] ED NOTE HNO ID: [id number] Author: BELKYS COLMENARES HUC Service: Emergency Medicine Author Type: Health Software Quality Test Engineer Type: ED Notes Filed: 04/08/2025 15:37 Note Text: PATH and Victim Assistance notified. [facility] ED NOTE HNO ID: [id number] Author: ANSELMO VALLE RN Service: Emergency Medicine Author Type: Registered Nurse Type: ED Notes Filed: 04/08/2025 15:22 Note Text: Pt declines any lab work to be done [facility] ED PROV NOTEon 04-08-2025 ED PROV NOTE [facility] ED PROV NOTE [facility] ED Triage Noteon 04-08-2025 ED Triage Note Normal [facility] Ethanol SerPl-mCncon 025 Ethanol [Mass/Vol] 126 mg/dL High <11 [facility] Comment on above: Order Comment: Speci men Type: BLOOD SPECIMENOrdering Facility: [facility] Address: [address] [place] [address] Result Comment: Valu es > 80 mg/dL may indicate intoxication Performed By: #### 5 643-2 ####[facility] LABORATORYCLIA [id number] [place] [address] [place] HISTORY PHYSICALon 5 HISTORY PHYSICAL Normal [facility] Lipase SerPl-cCncon 04-08-20 25 Lipase [Catalytic activity/Vol] 49 U/L Normal 16- [facility] Comment on above: Order Comment: Speci men Type: BLOOD SPECIMENOrdering Facility: [facility] Address: [address] [place] [address] Performed By: #### 1 9123-9, 84678-4, 3040-3 ####[facility] LABORATORYCLIA [id number] [place] [address] [place] Magnesium SerPl-mCncon 04-08 Magnesium [Mass/Vol] 1.6 mg/dL Low 1.7-2.3 [facility] Comment on above: Order Comment: Speci men Type: BLOOD SPECIMENOrdering Facility: [facility] Address: [address] [place] [address] Performed By: #### 1 9123-9, 58327-0, 3040-3 ####[facility] LABORATORYCLIA [id number] [place] [address] [place] PT panel Coag (PPP)on 2024 INR Coag (PPP) [Relative time] 1.9 {INR} High 0.9-1.3 [facility] Comment on above: Order Comment: Speci men Type: BLOOD SPECIMENOrdering Facility: [facility] Address: [address] [place] [address] Result Comment: Erum min K Antagonist (VKA) Therapeutic Range: INR 2 to 3 (Target INR of 2.5)Note: For patients treated with VKA drugs, such as warfarin, the [place] [employer] 2012 Guideline recommends [...] al. Chest 2012, 141:7S-47SNishimura RA, et al. [facility] 2017, 70: 252-289 Performed By: #### 3 4528-0 ####[facility] LABORATORYCLIA [id number] [place] [address] [place] PT Coag (PPP) [Time] 19.4 s High 9.7-13.0 [facility] Comment on above: Order Comment: Speci men Type: BLOOD SPECIMENOrdering Facility: [facility] Address: [address] [place] [address] Performed By: #### 3 4528-0 ####[facility] LABORATORYCLIA [id number] [address] [place] TOXICOLOGY SCREEN, ROUTINE U RINEon 04-08-2025 Amphetamines Confirm (U) [Mass/Vol] Negative Normal Negative [facility] Comment on above: Order Comment: Speci men Type: URINE SPECIMENOrdering Facility: [facility] Address: [address] [place] [address] Result Comment: Cuto ff threshold at 1000 ng/mL. Performed By: #### U TOX2 ####[facility] LABORATORYCLIA [id number] [address] [place] BARBITURATES, URINE Negative Normal Negative [facility] Comment on above: Order Comment: Speci men Type: URINE SPECIMENOrdering Facility: [facility] Address: [address] [place] [address] Result Comment: Cuto ff threshold at 200 ng/mL. Performed By: #### U TOX2 ####[facility] LABORATORYCLIA [id number] [place] [address] [place] BENZODIAZEPINES, UR Negative Normal Negative [facility] Comment on above: Order Comment: Speci men Type: URINE SPECIMENOrdering Facility: [facility] Address: [address] [place] [address] Result Comment: Cuto ff threshold at 200 ng/mL. Performed By: #### U TOX2 ####[facility] LABORATORYCLIA [id number] [address] OF [facility] Cannabinoids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 [place], [place] [address] Jeronimo Crowe M.D. [id number] Sodium [Moles/Vol] 133 mmol/L Low 135-145 [facility] Comment on above: Order Comment: [facility] has implemented the eGFR calculation approach that does not have a coefficient for race that conforms to the NKF-ASN Task Force Recommendations. Performed By: #### 4 [id number] #### [facility] [address] [place], [place] [address] Jeronimo Crowe M.D. [id number] Urea nitrogen [Mass/Vol] 6 mg/dL Low 8-[address] [facility] [place] [facility] Comment on above: Order Comment: [facility] has implemented the eGFR calculation approach that does not have a coefficient for race that conforms to the NKF-ASN Task Force Recommendations. Performed By: #### 4 [id number] #### [facility] [address] [place] [address] Jeronimo Crowe M.D. [id number] Urea nitrogen/Creatinine [Mass ratio] 27.3 mg/mg High 10.0-20.[address] [facility] [place] [facility] Comment on above: Order Comment: [facility] has implemented the eGFR calculation approach that does not have a coefficient for race that conforms to the NKF-ASN Task Force Recommendations. Performed By: #### 4 [id number] #### [facility] [address] [place] [address] Jeronimo Crowe M.D. [id number] Comprehensive metabolic 2000 panelOrdered By: Sarah Mehta on 03-15-2025 Albumin [Mass/Vol] 3.1 g/dL Low 3.2 - 5.2 g/dL [facility] ALP [Catalytic activity/Vol] 132 U/L 40 - 150 U/L [facility] ALT [Catalytic activity/Vol] 25 U/L 0 - 50 U/L [facility] Anion gap [Moles/Vol] 12 mmol/L 10 - 2 0 mmol/L [facility] AST [Catalytic activity/Vol] 61 U/L High 0 - 50 U/L [facility] Bilirubin [Mass/Vol] 13.4 mg/dL High 0.0 - 1 .3 mg/dL [facility] Calcium [Mass/Vol] 8.1 mg/dL Low 8.4 - 10. 2 mg/dL [facility] Chloride [Moles/Vol] 99 mmol/L 98 - 10 8 mmol/L [facility] Creatinine [Mass/Vol] 0.22 mg/dL Low 0.50 - 1.30 mg/dL [facility] GFR/1.73 sq M.predicted CKD-EPI (S/P/Bld) [Vol rate/Area] 155 - PINF [facility] Comment on above: Estimated GFR was ca lculated using the 2020 CKD-EPI creatinine equation. Glucose [Mass/Vol] 142 mg/dL High 65 - 99 mg/dL [facility] HCO3 [Moles/Vol] 26 mmol/L 21 - 32 mmol/L [facility] Interpretation and review of laboratory results Abnormal [facility] Potassium [Moles/Vol] 3.8 mmol/L 3.5 - 5.1 mmol/L [facility] Protein [Mass/Vol] 5.8 g/dL Low 6.0 - 8.0 g/dL [facility] Sodium [Moles/Vol] 133 mmol/L Low 135 - 145 mmol/L [facility] Urea nitrogen [Mass/Vol] 6 mg/dL Low 8 - 25 mg/dL [facility] Urea nitrogen/Creatinine [Mass ratio] 27.3 mg/mg High 10.0 - 20.0 [facility] has implemented the eGFR calculation approach that does not have a coefficient for race that conforms to the NKF-ASN Task Force Recommendations. [facility] INR Coag (PPP) [Relative chente e]on 03-15-2025 Interpretation and review of laboratory results Abnormal [facility] PT Coag (PPP) [Time] 35.7 s High [facility] During the induction phase of oral anticoagulation, the INR may not reflect the anticoagulation status of the patient. Therapeutic ranges for INR's are: Most clinical situations: INR 2.0-3.0 Mechanical Prosthetic Valve: INR 2.5-3.5 Critical: INR >5.0 [facility] [place] CytologyOrdered By: Simin Tyson on 03-15-2025 Case Report Medical Cytology Rep ort Case: [id number] Authorizing Provider: Daxa Rubio CNP Collected: 03/14/2025 09:33 AM Ordering Location: [facility] Received: 03/14/2025 12:32 PM Hospital Interventional Radiology Pathologist: Lourdes Tyson MD Specimen: Paracentesis, diag para [facility] Work Phone: Interpretation Specimen A Negative [facility] Work Phone: Pathology report gross observation Narrative [id number] ZzEwMzNcZnRuYmpcdWMxIHtc [id number] iLfxaUm0iVtsTEKhuiU0bEKh [id number] NCwjDx2fbCKcsZuqZxIbKYGl QCm0mV95RGMzhC5tuUPfZNto ysDpHVjwloAfasDaEdz3JAN2 nOpsOPFzjpdpQoZ6TBtxLZIi xpqmXGw6VShdOAZwdCV1TWHr nJQvO3DwJDXqVK8subz1DXT9 RXcfDCGrScK1TKMduXUmMXMo iQhiIKejy063NWF0JcWgXSRy ztRroKlnxN1kDuEpNUnvDzPv ZEFtTLOtGGLxnS86XZblj3Vt bmdlIGZsdWlkXHBhciAgXHBh ciAxIFNtZWFyIHNsaWRlLCBE qXSzSGZ4lSsvx8XqyC6sLHsd aZVpTAFpSQneqnIrYHPaj0sg ZGUsIFBhcCBzdGFpbmVkLFxw QQCiHJTEFKmpUtyfF5shi5y6 aCAxIEgmRSBzdGFpbmVkIHNs sNMwMWBwzb04THQ9TyKzn8D8 SLHpUvFrAAEjLB2uxJhwUPYw TN9iWJNiU1uyxT7ebjp5ZlQc YOSlOnK7CTGblfW1Bvv0VSTr FUyzb6cxw6OhDITzXIp2oWvv ZpQjIMDnk8jlkpXjRpLtAWOr OCZdMTDxuIYsG024h4rbd8ds qoXhnAW1SXQpISQ0NGwiqxIg xeK1RIcstJAkJzW5CGojxsDe HEqyonYcwgYdQha5CIZzQ901 EZY1tDjgj5blOLS9IBYmFUKj GvPfNr0znVNeU356XZGaIQIT UYTnfSf5CTNzhkPtwxVmbJYV d969X262o7jtCLXtrkWrlXzE dnrxb4qzE888YFFadYBcanGu ZmDbWYHigGSycWV0MKMnQJ8j srofZRptVDqxTYZnroF7YJRa uBZsF9ZhCHBvZL2qkebyXPE7 HRjwWDAxWVZ6GtXgBRWwz6Vt zdf1VyPtgt9wrh32JTY1x0Qy rNhcQUT7DHO4IvVuYu4eqSEi HRZgHJ0qEyRmfBOdZWVwgv64 xWqyJOazyuMykD9kZzPxQB1g zOilf06pGSUlFR9ydG7hud1x duLfCPmwrUJuaHK2xqweDLB3 TVEtmkJse9Waw1hiHeDsdhMe H3fuF3DoOCIlVJMzUIUoQeJu uiHqy8Ogl4JxnXUwzOt3i6pd QCLpEZCgmBrim2ouZDW4SKUi Z1S5oMGdb2pgAAgcNSZweAJ5 jmE4MGCrkETrM6RiiI0bRQOe HB4ffwn0g9jpDSA5SLlmGUOe EtK4nyN8SLIswJIvQDRhuUcg YRerk460WPQ5DmVfSPMts0Fs G4FqwEnuH19jcQuvL05fMVSg gXpndG8gdMjefY0jMoHlLtDx LKjdDFXzTASpcANsFWX4gSXe olGum7JrRtTpi9rzNYlcq1bs gRu6TLcobZCoDMQypYcda5jy C0DlcZAgAEKoAPxiFMLlCUFo MjBcbGFuZzEwMzNcaGljaFxm BTvtSzVqVRRvHQczQ8xdFgNa B1EiSJBpQxCttDfrQVHRbCKd vC6pzjBLxi9nHRKifG2yIDOy MIHFtmwoOOD4QVHjvqDajhmo CdHdKLGwc9RiWAAvQIS9XDVs brDeo0pnPMOONADzl6Jzq5Ss EL1tdOh0UKqhYIXgPOW0JE9l IA34KC7hdOWGcVHxauFOu4Dj GDIntIXsZcYrYDIAHJP1LrTg NFxwbGFpblxmMVxmczMyXGxh epoiKEFvKIenI9amNqWuVUTo zZitEKvsb0LsBUIcKGHrLkHv cGFyfX0= [facility] Work Phone: [facility] Work Phone: PT/INRon 03-15-2025 INR Coag (PPP) [Relative time] 3.5 {INR} High 0.8 - 1.1 [facility] INR Coag (PPP) [Relative time] 3.5 {INR} High 0.8-1.[address] [facility] [place] [facility] Comment on above: Order Comment: Charis henson the induction phase of oral anticoagulation, the INR may not reflect the anticoagulation status of the patient. Therapeutic ranges for INR's are:Most clinical situations: INR 2.0-3.0Mechanical Prosthetic Valve: INR 2.5-3.5Critical: INR >5.0 Performed By: #### L [id number] #### [facility] [address] [place] [address] 23240 Jeronimo Crowe M.D. [id number] PT Coag (PPP) [Time] 35.7 s High 11.8-14.3 [facility] Comment on above: Order Comment: Charis henson the induction phase of oral anticoagulation, the INR may not reflect the anticoagulation status of the patient. Therapeutic ranges for INR's are:Most clinical situations: INR 2.0-3.0Mechanical Prosthetic Valve: INR 2.5-3.5Critical: INR >5.0 Performed By: #### L [id number] #### [facility] [address] [place] [address] 12418 Jeronimo Crowe M.D. [id number] Tissue Examon 03-15-2025 Annotation comment [Interpretation] Narrative h5xdaIMyFQGdiTYpVMKeBXrb dvGcABPbwEVeE3BvfcfnHPqk HV7gLV6ybXthfEIbwTKlHYPw HxAkh2brv728xNWho7gtMUIW obphbXi9dXlnG53sz2C8Omki C43sbUVeWVD2ZLCpDNHdaKCz QYCtGZK7DHHnuZJmQ9wcOCYz RI5xoqqiFQkvHDaxDSUffGO0 FNEtePFeO8UiXZAvDBdxFBOb jcu9RpPbZl0vyMJpdYwgDOwo PTDrSPOgXSFmOUIeFzE4RGRb tKVhlHCquHbabP9cIwWbEKTW XMLqlOSgDV0rAYFzBJDmdvXj FC0wWYFfPzWypzYpOW6gKUFp h20xHZ6sXKCmYOMjMQA4YPAl IYUble6xALNkeX4cySCmRRWv vBHkRnPwzLDnHY6xN3DmuJYp gwI7WQWyAD0biDYoSD1sYCEc ZUUISQRjIHMIWLN9QHyvRASw blTshZ19fh3vgUXthsHuj6Pi SGVsaWNvYmFjdGVyIHdhcyBw UALjz2WbYLBpZCsoHKLvxVYp h9WwtJXvZJTfCxXwKKNoqHVd VIKhD8y1yqSwYIOjRKU1BVYj vWYwTLGtQ9a0whLnVTSmHSU4 QJJriDAyBDMuV1uckGNiBMW9 KHZiSAQpXPJoICN6VLNdC5mg rmVxwAmczyFea6uzotSrijIz XGNsYnJkcnJcYnJkcnNcYnJk cncxMFxjbGJyZHJiXGJyZHJz KISaCQI7KTHzX8g1XQN7IRr1 CBLrWpStP2uuzIknYDGvd2io IIRiQaJ9ZXquMTuezIRtAWTi O4cynmMwsTfpfbDkp0kfjmIi dzEwXGNsYnJkcmxcYnJkcnNc YnJkcncxMFxjbGJyZHJyXGJy JGBdOVBuDSA6RIHeL1kqyvQl OyvuymQqd4weptQcnrWpOAGs fbSgpBYbiTcpnBN9m1njSYXt I6iiuPmGeWD8yAhyJNjxHBkh vOHjHBFiS3ngoqCmnLbswaCz k4utdtCpusTnOOGsXaFbnsfj YnJkcnNcYnJkcncxMFxjbGJy NEEkSPFbBRAvARQzOXN0OHZq C3gyxmWvHpoliuTot4huouXz dzEwXGNsdmVydGFsdFxjbGZ0 j9wpVNIeK7ddzRbKnWX1uJKn PBBdY4IoaZg8QqBlEWPcZjZh cnRcYnJkcnNcYnJkcncxMFxj bGJyZHJsXGJyZHJzXGJyZHJ3 JLTeN7yplrAlzpghyjNtb4pl cmRydzEwXGNsYnJkcmJcYnJk cnNcYnJkcncxMFxjbHZlcnRh uPHrL5okkXRQiSS3hNEvD8z0 I1bxlUr3KMsrYUDwwBz1ISru SDwnYZIcRJmutKRgHUCpHW11 fEEfWAhvLzDeG9LacGfdWSug GJUfbtQvlB28FyhnRaivN2hg J9LarPmaYFYvPXwvpENkFBEt aWRlXGNlbGxccGFyZFxpbnRi lUOEWAD4cQAxKJH4XYpljW3c ABJlhZHidh9eTFHckOvgqG26 Ghydlt89KOEyi8ypGSkqu5Lb u7bhaLQwGDXsUiFiXSLksLPl WAHbN2w4ixFoFMVrLCJ7HMAk pADoBODkK3e4fhDsTFZwRQA0 AXBixRRnHGFmR9psiYOhCLV8 ZYRjCOZkPFMySYG7FOBmV3bo kdHmwTyajrCdj0jtozXtnqQx XGNsYnJkcnJcYnJkcnNcYnJk cncxMFxjbGJyZHJiXGJyZHJz LUQiQGX8TEXcJ5h0SOV3DMm7 MATqGdIvE9ybrMfjJNRaz7gl EHEaAzA3NCdhKLthhAUzDLNx M3madsObmMraqyYpd5mihuZy dzEwXGNsYnJkcmxcYnJkcnNc YnJkcncxMFxjbGJyZHJyXGJy UPTgAGQgFTE6EWCzN4rnbaSs WguwayTzn1wsrcYxusUyWOYr jsMzyGCwlHebhSA2g2gkHOPx Y0ucgWcQaSL0sPqcQUewZDdq nOLsJQFdT9yhirCtwYukziTs q1jqnlIajpLvWDVtIoEgqpvd YnJkcnNcYnJkcncxMFxjbGJy QTVjRJTlGNWxVIZsMBO3CGZu U1gjvaOeSvtydwAck3gxlkRo dzEwXGNsdmVydGFsdFxjbGZ0 g3egWOXxN5ntjZnGaFO8mIHj VCAzP1McfKq6SsGlXZMdRuUx cnRcYnJkcnNcYnJkcncxMFxj bGJyZHJsXGJyZHJzXGJyZHJ3 FYQyU6riqdRbuuukhoUlw0dt cmRydzEwXGNsYnJkcmJcYnJk cnNcYnJkcncxMFxjbHZlcnRh zZBfV2jnvTSTrHN6qZYcG8v1 R2kxoTv6JWvlJLLqjOl0FJye MFxwYXJkXGludGJsXGIwIEhl iXzdd4XpR3UvimThbPqrvjpw W0EnaIxgABTiWAtzpPPwGNFu XGNlbGxccGFyZFxpbnRibCBJ bmRpdmlkdWFsXGNlbGxccGFy DFrjrwFqwDXAQIvdbFx9MSNv L7FatQxlmgYabItwf8arkIYn WJxcnwU3FFJdjnMLe0ZrE6T8 RYFsrPYgu511eh5vhxCluY82 IGFwcHJvcHJpYXRlIGFjdGl2 zBA5VoLGmIUffBCdbL4tM4Bg LKUwlUXszzQqiVY6BVHndVVm Qm6xaTPgGOJ7QQNazqNvv7kh RVCMTHYwb5Dyo6ExAC4owYf6 HNtmVHI9ZiLyX8hytmHmmni2 IFJpdmVyIFJvYWQsIENvbHVt WxGaJZJXXBM9JjQpSB2fLNxs SRgORfBuWK4wASQXIOsmsGFf j5rmj5VeC9yycRtjzWG3MYAd h9HyI57xvzTbzjJdLZMmyx35 VBUfAwqpeMksGPBjVx0pJq6g VWIgixUvPMV4LuZFRD6aylcv nCTdpZpnly6sSY7ctU3qrSjw yD8jiRBmgVFhaMZvrvWkKXNG FVQhn9Z0nnU2o8EyWfnshQra GSKbWDBugX2iqL4imeYmXOBr O9Acd23jg7otkSTmNoOUxItr yvKpaU59ni3xlKBqs0C6dEfq IbLjozUzcu1ecTP6TOs7YxQp WXm4DYTws61aAEbBPNjqmWDt oPFzEJ9yTLZgPKnzSVDyrvQl mz5osoWoKDSmCURbB5Wglqjk fQminlZ5PLVqXMGxyCNwnWdm EBVlHezmF8xtfyFFBTXltAhe DYBad4NwrR5nzYMCQUP7aEMh pl9bVCistMMdFTZwOW2uqMSo MXRuRMZaEMSvTBLqg3BwOQXs vx16KJGiHqwuyVupPBZWBORc t8TtZP7zPKLsuZlzZYFhjV5u w7XjAUTuh84cKPFuOFLYCYFn PK2ldvNki9TedpIrtMzyQIA3 nOAvNOX1SFF9tsV6ggOmbuK4 kMNexKyxNRChNQ2vtteybVFZ XQVncqV3tFP1UxRKlCOgVIH2 PVL3eyDxbzXouCWkROUyk8Mg V2znkimfNZzxqHMliQ7kTFNu JLGoBNLjAMIdn2WeSAKvt4Nk HeEmkgLbPZYjPJSrAPVxhE13 WCO9qFsryScjhdCjOV6jUPVi htSaWHKgBRVtzA5sWAekrjMw CDMfhtG8k2R1UTeqAKMzvvTq MildQWF6ruMsysW1zACqA5mz hkwsCLjfDMFmt8DnxS3seRRA dAEpv7SmsLUscESUgHLtHX8u bnRzIChDTElBKSBhcyBxdWFs rTDuVEUjoO1aqDGrCl5rkWNs iBrfSCGghVUfQEyhrCmxJ2fs eggcMZagwIVdm3OtaX3cbEN7 YDO9xG5hDsGkFEazVRxTOT0w RJJyc1PyeYSqjsWtEDXaUEjb ybIvoLFwZQlnOAVpmGY1zDXk zZWvgKQvL5X7gaFeZYVfZUOm RVJaXLUhyLK2o8Rnx81svHZv UW6pFPn6FKffNRLjVMMpbVRp ZS5pwwTwHGM0hULzpihcFYrd j0DwkDV6zC2yqs6sJQwvalS7 APX4BIywfcNog2IeOhXwnpAq eQAgtwCaMZ6sXIZgwZHldeNx EFO7OHRuKJAEQbAtQKVlj6Wt OU6aZCFnzSmvUZObhC3vo8Ov JDLsw84rTEg7rlOoSMVtv9Cf HI1vMCTdgRWwJBS8DSPip6Nv A5Fpc9AuCIVjNWXfok6gavVg GNF3UN3wmG3sYWRspEKnYVfy Un8yOTEfizcpR5DyqwaeZBZf aZ0eZBGlAD4dGERbP95qv6ae tTNhcNB8nEHvEQDIZPUqqrSt gGzoQJ1dvnXvUyNsbEYgdP== [facility] Case Report Surgical Pathology Report Case: [id number] Authorizing Provider: Angella Yu MD Collected: 03/14/2025 11:27 AM Ordering Location: [facility] Received: 03/14/2025 12:45 PM Hospital Endoscopy Pathologist: Lourdes Tyson MD Specimen: Gastric, r/o hPylori [facility] Clinical information b9iqqPSoMBKiiPDxIEV wMFxh hiRqMTNayGEcT0WpelqsWKyg EF0kTJ3umZcnvPHlbVDuYRUt GfCrb6tns699dJSbr8vxDCAX usgccIc1zDxvT84sx9I8Hvbl W4rlXCGjODgyZARjRJjggPAc UIr0URWaaTMziuAcSsHiEVOu mCLllCV2CUSsKM1sfepcTCuk FZjnSOOhmaD4XZWhsTWwB9Bl DOKwDH3rphscAHS0XEahGJFl PGP9JlImBXYse1Kgjvf6JzLl cGFyZFxwbGFpblxmczIwIERl L15txZKbk0M3MKDmT3xsuyet f9jvYQHNEiMnLONlADx3PK93 MCwgRVRPSCBhYnVzZSwgRjEw LjEwLiBccGFyXHBhclxjZjEg DC2yp4Edk6KfDfLHqK8smE4a EKUmJbGoMz9JUMijYYL2jV8q lNevvTIyCAJ5CWBzVpugoHB8 LlxjZjAgIFxwYXJ9 [facility] Pathology report final diagnosis Narrative e1oxtIXpBCKdlUQmVMUvBFji txLeQZQbsEGsR6GxmylqCXas GD7eDN7ebBogdOFguOVnNOBy WzXhe9mkr266dQRjy0uoWUZS qniwdHt9uZblY30xa4B3Lxoh U79ajPNxAXL2EKMhJDVdkCPr UNSzBYJ6RSJwiVLoS5slCYBc KN4zbuyeKCpdIBelXXOcoLH3 LRDywUOwO0JkXTCfFBchWBPa unv0XiYlXg4doTXmzUujMLvg YXJkXHBsYWluXGZzMjBccGFy XHBhcmRcdHgzNjBcYlxmczIy FPild5InmQSjIjncaBS3WiPg uHRrEGOqrlyjoYipZXurbZ86 UlKzU7SpcJMxUsGdqLBtv9Id o9d8kDViENQwNBFhhMAaA4nn bmdlcyBhbmQgbWlsZCBjaHJv moyuTOixOokgsM1vvDgizr7z TEXjhzjzEXHgYX4yiN9lfK6t kRuibA7ptXFwcJIxqYWuqRIz qxCdx8ToELXeoAVlHaVkaVWi BIjhLA6nH1A9rESuBuMoTEEb clxwYXJcbGkwXGxpbjBcYjBc EqFrEHLIN5ztS9nzSHaqWYJ4 [facility] Pathology report gross observation Narrative u2bdcFCkNZYtiUCnISUtNLhp wiZfNYMbiRVtH3TrpivyLGtl WD2wPU9vrPervAMmlZVxPMEi JgQot7mbv732wMFbh1lqFKVN mmtlzGa3nRcrY51fq7C8Hbbx T3vcMEWaJLcrVYJgSKpgmXIw HTq2BFYqvURgkiPdFxHvYTMz wWUixNX0ZIImAZ6vrfmjBJqi MAqjGRGwqwB3TMSghVEtZ9Ng ZFHvEO7agokiEKH0MPcvRBOo LGN6LdRbGXWhy4Rvlms1OiKc vAa8t5zwLQRvBRKxtJetc0hn GPQ9SWLiyBSoM3rhfZ1aIAIw CF3vrgcqj7qiSJkoBQwpTGKm gXJ1icQ8KSMlhQFqM5LjbX2m ARAyTSZdghXdwHuiaJ7qRbLe YKiiVdMqIzMvXZn9UILlrL1o Oo2svPTpaG0ejNLkXKsaRADs XALej6RuT9WpY6Ite3zkqUZq VNiySqivyMViyrA1LCiXCIBM UKjDBcIrPX3dBJtSCsgAAUvZ BibkGEBoYCvluGRWEMeBY9bd eVFWTCzdBgxuPME1fYH3oH73 EAYmBBZfxDOfAMgcL438MMOx x9Nsg08dPOPKlUDxFPnukNHj x4gmoOBwPWsgAooowTZasdF6 FIlFFBEEGMhLQgMwJN9gHUfO DeeEVoN6GqutOYT3BTgRUznU Upq8NNbWCVYhFmXrHYrumEdg qYc8m9lkxAMdh7l4CDesHGD0 fVxwbGFpblxmczIwICIgXGNm MSBhbmQgZGVzaWduYXRlZCAi U2PgoKLmBvRwjS0hw0osVBaj ZjAgYXJlIHRocmVlXGNmMSAg xMudY6LssyrpliDwO5qlNqFo dm9dYMTiDKH7loPgIeWoE06t SPVWeSlhRA1tRhnuBZRetSYb FUjZEs2WRpTxoPtwUModJFWf hWKuGOQdupVcL2Ytr2QyIQqj tGhjBBDuq07kbPPxUx6rlEBb QTM0SxLHnZTgwyMiCAXdJTG5 oG9ksDD3ASioj8OviQAvIR7b BlWoAWLLqMAemVRhU9rjBkj3 AEWfQw4fOUSCb5u3vAK0abfm E0znODZlFQIlnBGeuC== [facility] Pathology report microscopic observation Narrative Other stain q8gurZLpGELikYSnKzOsYCFj WYKhe5qtIJKswIXwYyHjLdUp WvBtGllffBUfMTMgPzTlr0km o248wYDpz8jxXEFhKdR0vJEm EFPgsBGiD474XAIoUIzsp4vr d3GfPHOxhRLmk9E7FFJHyzqm lYb3qGrnK69aw8L0KsgfR7qy SZRsABJbI8BlJW5zPIDhVqe6 NXI6SCM8LKIyCGLnU2FrFB5u LVTtjGHjEMd9p6ydxSyyZYNd CNU3b8wtANmhsfMxXA9whv2m mNu1v0dvijLlNDJtWIApdFTE BTBhQ0BxnPbxNq8fnEk6kHal RegqHOY9Zix0BS0zaa62rce3 aXduXXNvikqaPcT7WKbvHYJq iobhQVj8KJgzLFChjBU7XBOq kHKcB5AsNOHqCO0kjus9QRT7 SDbpLUUwYiD0QTAbyAGxCYKf zQexHJlob418AWC0StYfCP3o C2Oyf2Z1fH5zbPKpBUCedNQd SnSnJVStdw7edWMxHBeqt5Pp TCX1mmS3hIEnrHBvPBNlMR78 Riwhi1VxTradCKF1QLBllhYi h0Quk3ttSvGespMnF9tmF8Ag FYSaGDPaAISuQsAsawCxg9Xe m5GzoCNamTu7m3pfERSmRXYl uMkhw4gfQYN2BCDrR9T2lPQb z0smOGppWMXowCM5luZ0EYMz kATtV6SvuC8fKPSyJC5xybl8 n8nzWEW1EYvdULJrPkL0tjQ4 ZNQmfMStUMVvbPevRBuxs049 NAA3JlNdLBAmp0KyG1KlmDqw B34qfOkiU97hUGXpcLsmlD0p hQpmqI5uPsVeOcBwDDsjcSqh bGFpblxmMVxmczIwXGxhbmcx HEIrWGvbP9ddRoDsZFUxkGla PKfds4WuUOBtMOLuKiGmEKal iv0xV08fiCZpPVmnrWofZSEz w19dlCBesAFpOn2ndYDrHnhy YXJ9 [facility] AFP TUMOR MARKERon AFP TUMOR MARKER 4.4 ng/mL Normal 0.0-15.0 [facility] Comment on above: Order Comment: Assay performed by Nora Tanna DXI Immunoassay. Performed By: #### L [id number] #### [facility] [address] [place] [address]1631 Jeronimo Crowe M.D. [id number] AFP Tumor MarkerOrdered By: Dayanna Martinez on 03-14-2025 AFP.tumor marker [Mass/Vol] 4.4 ng/mL 0.0 - 15.0 ng/mL [facility] Interpretation and review of laboratory results Normal [facility] Assay performed by Nora Fenelton DXI Immunoassay. [facility] ALBUMIN, BODY FLUIDon 2024 ALBUMIN FLUID < Normal [facility] [place] [facility] Comment on above: Order Comment: No es tablished reference range. Performed By: #### 4 [id number] ####[facility] [address] [place] [address] Jeronimo Crowe M.D. [id number] Albumin (Body fld) [Mass/Vol ]Ordered By: Marcos Harden on 03-14-2025 No established refer ence range. [facility] Albumin, Body FluidOrdered B y: Marcos Harden on 03-14-2025 Albumin (Body fld) [Mass/Vol] g/dL g/dL [facility] BILIRUBIN, DIRECTon 03-14-20 25 Bilirubin.indirect [Mass/Vol] 7.3 mg/dL High 0.0-0.[address] [facility] [place] [facility] Comment on above: Performed By: #### L [id number] #### [facility] [address] [place] [address] Jeronimo Crowe M.D. [id number] BODY FLUID AEROBIC AND ANAER OBIC CULTUREon 03-14-2025 BODY FLUID AEROBIC AND ANAEROBIC CULTURE CULTURE No Growth after 5 days GRAM STAIN RESULT No Organisms Seen Few WBC Moderate RBC Normal [facility] [place] [facility] Comment on above: Performed By: #### L [id number] #### [facility] [address] [place] [address]841 Jeronimo Crowe M.D. [id number] BODY FLUID CELL COUNT WITH D IFFERENTIALon 03-14-2025 APPEARANCE, FLUID Clear Normal [facility] Comment on above: Performed By: #### 4 [id number] #### [facility] [address] [place], [place] [id number] Jeronimo Crowe M.D. [id number] COLOR, FLUID Yellow Normal [facility] [place] [facility] Comment on above: Performed By: #### 4 [id number] #### [facility] [address] [place], [place] [id number] Jeronimo Crowe M.D. [id number] LYMPHOCYTES, FLUID 22 % High 0-0 [facility] Comment on above: Performed By: #### 4 [id number] #### [facility] [address] [place] [address] Jeronimo Crowe M.D. [id number] MESO/MACRO, FLUID 53 % High 0-0 [facility] Comment on above: Result Comment: Meso thelial cells and/or macrophages. Performed By: #### 4 [id number] #### [facility] [address] [place], [place] [id number] Jeronimo Crowe M.D. [id number] MONOCYTES, FLUID 20 % High 0-0 [facility] Comment on above: Performed By: #### 4 [id number] #### [facility] [address] [place], [place] [address] Jeronimo Crowe M.D. [id number] NEUTROPHILS, FLUID 5 % Normal 0-25 [facility] Comment on above: Performed By: #### 4 2933 #### [facility] [address] [place] [address] 24966 Jeronimo Crowe M.D. [id number] RBC, FLUID 2254 /mcL High 0-[address] [facility] [place] [facility] Comment on above: Performed By: #### 4 [id number] #### [facility] [address] [place] [address] Jeronimo Crowe M.D. [id number] WBC/NUC CELLS, FLUID 108 /mcL Normal 0-500 [facility] Comment on above: Result Comment: WBC/ Nuc cell count includes mesothelial and other non-WBC nucleated cells as reflected in the differential. Performed By: #### 4 [id number] #### [facility] [address] [place] [address] Jeronimo Crowe M.D. [id number] Bilirubin.direct [Mass/Vol]o n 03-14-2025 Bilirubin.conjugated [Mass/Vol] 7.3 mg/dL High 0.0 - 0.4 mg/dL [facility] Interpretation and review of laboratory results Abnormal [facility] Body Fluid Cell Count with D ifferentialOrdered By: Tony Robin on 03-14-2025 Appearance (Body fld) [facility] Color (Body fld) Yellow [facility] Interpretation and review of laboratory results Abnormal [facility] Lymphocytes/100 WBC (Body fld) 22 % High 0 - 0 % [facility] Mesothelial cells/100 WBC (Body fld) 53 % High 0 - 0 % [facility] Comment on above: Mesothelial cells an d/or macrophages. Monocytes/100 WBC (Body fld) 20 % High 0 - 0 % [facility] Neutrophils/100 WBC (Body fld) 5 % 0 - 25 % [facility] Nucleated cells Auto (Body fld) [#/Vol] 108 [facility] Comment on above: WBC/Nuc cell count i ncludes mesothelial and other non-WBC nucleated cells as reflected in the differential. RBC Auto (Body fld) [#/Vol] 2254 High [facility] CBCon 03-14-2025 AUTO NRBC 0.0 % Normal [facility] [place] [facility] Comment on above: Performed By: #### L [id number] #### [facility] [address] [place] [address] Jeronimo Crowe M.D. [id number] AUTO NRBC ABS COUNT 0.00 K/mcL Normal 0.00-0.00 [facility] Comment on above: Performed By: #### Mack [id number] #### [facility] [address] [place] [address] Jeronimo Crowe M.D. [id number] Erythrocyte distribution width (RBC) [Ratio] 14.0 % Normal 11.6-14.[address] [facility] [place] [facility] Comment on above: Performed By: #### Mack [id number] #### [facility] [address] [place] [address] Jeronimo Crowe M.D. [id number] Hematocrit (Bld) [Volume fraction] 29.2 % Low 41.0-53.[address] [facility] [place] [facility] Comment on above: Performed By: #### Mack [id number] #### [facility] [address] [place] [address] Jeronimo Crowe M.D. [id number] Hemoglobin (Bld) [Mass/Vol] 9.8 g/dL Low 13.5-17.[address] [facility] [place] [facility] Comment on above: Performed By: #### Mack [id number] #### [facility] [address] [place] [address] Jeronimo Crowe M.D. [id number] MCH (RBC) [Entitic mass] 38.6 pg High 26.0-34.[address] [facility] [place] [facility] Comment on above: Performed By: #### L [id number] #### [facility] [address] [place] [address] Jeronimo Crowe M.D. [id number] MCV (RBC) [Entitic vol] 115.0 fL High 80.0-100.0 R [facility] Comment on above: Performed By: #### Mack [id number] #### [facility] [address] [place], [place] [address] Jeronimo Crowe M.D. [id number] MEAN CORPUSCULAR HEMOGLOBIN CONC 33.6 g/dL Normal 31.0-37.[address] [facility] [place] [facility] Comment on above: Performed By: #### Mack [id number] #### [facility] [address] [place], [place] [id number] Jeronimo Crowe M.D. [id number] Platelet mean volume (Bld) [Entitic vol] 10.1 fL Normal 9.4-12.[address] [facility] [place] [facility] Comment on above: Performed By: #### Mack [id number] #### [facility] [address] [place], [place] [address]Sally Crowe M.D. [id number] Platelets (Bld) [#/Vol] 86 10*3/uL Low 150-400 R [facility] Comment on above: Performed By: #### Mack [id number] #### [facility] [address] [place], [place] [address]Sally Crowe M.D. [id number] RBC (Bld) [#/Vol] 2.54 10*6/uL Low 4.50-5.90 [facility] Comment on above: Performed By: #### Mack [id number] #### [facility] [address] [place], [place] [address]Sally Crowe M.D. [id number] WBC (Bld) [#/Vol] 3.12 10*3/uL Low 4.50-11.00 [facility] Comment on above: Performed By: #### Mack [id number] #### [facility] [address] [place], [place] [address] Jeronimo Crowe M.D. [id number] CBC panel Auto (Bld)on 03-14 Erythrocyte distribution width (RBC) [Entitic vol] 14 % 11.6 - 14.8 % [facility] Hematocrit (Bld) [Volume fraction] 29.2 % Low 41.0 - 53.0 % [facility] Hemoglobin (Bld) [Mass/Vol] 9.8 g/dL Low 13.5 - 17.5 g/dL [facility] Interpretation and review of laboratory results Abnormal [facility] MCH (RBC) [Entitic mass] 38.6 pg High 26.0 - 34.0 pg [facility] MCHC (RBC) [Mass/Vol] 33.6 g/dL 31.0 - 37.0 g/dL [facility] MCV (RBC) [Entitic vol] 115 fL High 80.0 - 100.0 fL [facility] Nucleated RBC (Bld) [#/Vol] 0 10*3/uL [facility] Nucleated RBC/100 WBC (Bld) [Ratio] 0 % [facility] Platelet mean volume (Bld) [Entitic vol] 10.1 fL 9.4 - 12.4 fL [facility] Platelets (Bld) [#/Vol] 86 10*3/uL [facility] (Bld[facility] [#/Vol] 2.54 10*6/uL Low [facility] WBC (Bld) [#/Vol] 3.12 10*3/uL Low [facility] COMPREHENSIVE METABOLIC PANE Romario 03-14-2025 Albumin [Mass/Vol] 2.2 g/dL Low 3.2-5.2 [facility] Comment on above: Order Comment: [facility] has implemented the eGFR calculation approach that does not have a coefficient for race that conforms to the NKF-ASN Task Force Recommendations. Performed By: #### 4 [id number] #### [facility] [address] [place] [address] Jeronimo Crowe M.D. [id number] ALP [Catalytic activity/Vol] 156 U/L High 40-[address] [facility] [place] [facility] Comment on above: Order Comment: [facility] has implemented the eGFR calculation approach that does not have a coefficient for race that conforms to the NKF-ASN Task Force Recommendations. Performed By: #### 4 [id number] #### [facility] [address] [place] [address] Jeronimo Crowe M.D. [id number] ALT [Catalytic activity/Vol] 38 U/L Normal 0-50 U/L [facility] [place] [facility] Comment on above: Order Comment: [facility] has implemented the eGFR calculation approach that does not have a coefficient for race that conforms to the NKF-ASN Task Force Recommendations. Performed By: #### 4 [id number] #### [facility] [address] [place] [address] Jeronimo Crowe M.D. [id number] Anion gap [Moles/Vol] 12 mmol/L Normal 10-20 [facility] Comment on above: Order Comment: [facility] has implemented the eGFR calculation approach that does not have a coefficient for race that conforms to the NKF-ASN Task Force Recommendations. Performed By: #### 4 [id number] #### [facility] [address] [place], [place] [address] Jeronimo Crowe M.D. [id number] AST [Catalytic activity/Vol] 79 U/L High 0-50 U/L [facility] [place] [facility] [facility] Comment on above: Order Comment: [facility] has implemented the eGFR calculation approach that does not have a coefficient for race that conforms to the NKF-ASN Task Force Recommendations. Performed By: #### 4 [id number] #### [facility] [address] [place] [address] Jeronimo Crowe M.D. [id number] Bilirubin [Mass/Vol] 15.1 mg/dL High 0.0-1.3 [facility] Comment on above: Order Comment: [facility] has implemented the eGFR calculation approach that does not have a coefficient for race that conforms to the NKF-ASN Task Force Recommendations. Performed By: #### 4 [id number] #### [facility] [address] [place] [address] Jeronimo Crowe M.D. [id number] Calcium [Mass/Vol] 8.4 mg/dL Normal 8.4-10.2 [facility] Comment on above: Order Comment: [facility] has implemented the eGFR calculation approach that does not have a coefficient for race that conforms to the NKF-ASN Task Force Recommendations. Performed By: #### 4 [id number] #### [facility] [address] [place], [place] [address] Jeronimo Crowe M.D. [id number] Chloride [Moles/Vol] 99 mmol/L Normal 98-108 [facility] Comment on above: Order Comment: [facility] has implemented the eGFR calculation approach that does not have a coefficient for race that conforms to the NKF-ASN Task Force Recommendations. Performed By: #### 4 [id number] #### [facility] [address] [place], [place] [address] Jeronimo Crowe M.D. [id number] Creatinine [Mass/Vol] 0.24 mg/dL Low 0.50-1.30 [facility] Comment on above: Order Comment: [facility] has implemented the eGFR calculation approach that does not have a coefficient for race that conforms to the NKF-ASN Task Force Recommendations. Result Comment: Spec imen Icteric Performed By: #### 4 [id number] #### [facility] [address] [place], [place] [address] Jeronimo Crowe M.D. [id number] EGFR 151 mL/min/1.73 m2 Normal >=60 [facility] Comment on above: Order Comment: [facility] has implemented the eGFR calculation approach that does not have a coefficient for race that conforms to the NKF-ASN Task Force Recommendations. Result Comment: Autumn mated GFR was calculated using the 2020 CKD-EPI creatinine equation. Performed By: #### 4 [id number] #### [facility] [address] [place], [place] [address] Jeronimo Crowe M.D. [id number] Glucose [Mass/Vol] 105 mg/dL High 65-99 [facility] Comment on above: Order Comment: [facility] has implemented the eGFR calculation approach that does not have a coefficient for race that conforms to the NKF-ASN Task Force Recommendations. Performed By: #### 4 [id number] #### [facility] [address] [place] [address] Jeronimo Crowe M.D. [id number] HCO3 (Bld) [Moles/Vol] 25 mmol/L Normal 21-32 [facility] [place] [facility] Comment on above: Order Comment: [facility] has implemented the eGFR calculation approach that does not have a coefficient for race that conforms to the NKF-ASN Task Force Recommendations. Performed By: #### 4 [id number] #### [facility] [address] [place] [address] Jeronimo Crowe M.D. [id number] Potassium [Moles/Vol] 3.7 mmol/L Normal 3.5-5.1 [facility] Comment on above: Order Comment: [facility] has implemented the eGFR calculation approach that does not have a coefficient for race that conforms to the NKF-ASN Task Force Recommendations. Performed By: #### 4 [id number] #### [facility] [address] [place] [address] Jeronimo Crowe M.D. [id number] Protein [Mass/Vol] 6.1 g/dL Normal 6.0-8.0 [facility] Comment on above: Order Comment: [facility] has implemented the eGFR calculation approach that does not have a coefficient for race that conforms to the NKF-ASN Task Force Recommendations. Result Comment: Spec imen Icteric Performed By: #### 4 [id number] #### [facility] [address] [place] [address] Jeronimo Crowe M.D. [id number] Sodium [Moles/Vol] 132 mmol/L Low 135-145 [facility] Comment on above: Order Comment: [facility] has implemented the eGFR calculation approach that does not have a coefficient for race that conforms to the NKF-ASN Task Force Recommendations. Performed By: #### 4 [id number] #### [facility] [place], [place] [address] Jeronimo Crowe M.D. [id number] Urea nitrogen [Mass/Vol] 3 mg/dL Low 8-[address] [facility] [place] [facility] Comment on above: Order Comment: [facility] has implemented the eGFR calculation approach that does not have a coefficient for race that conforms to the NKF-ASN Task Force Recommendations. Performed By: #### 4 [id number] #### [facility] [address] [place] [address] Jeronimo Crowe M.D. [id number] Urea nitrogen/Creatinine [Mass ratio] 12.5 mg/mg Normal 10.0-20.[address] [facility] [place] [facility] Comment on above: Order Comment: [facility] has implemented the eGFR calculation approach that does not have a coefficient for race that conforms to the NKF-ASN Task Force Recommendations. Performed By: #### 4 [id number] #### [facility] [address] [place] [address] Jeronimo Crowe M.D. [id number] CONSULTon 03-14-2025 CONSULT ---- -------- Attestation signed by John Becerril MD at 03/14/2025 10:47 AM Gastroenterology/Hepatol yahiry Resident Physician Attestation I have independently seen [...] ascites but refused admit who presented to [facility] 03/13/2025 for abdominal pains, found to have [...] mg BID and send discharge Rx to [facility] on day 1 of admission to expedite [...] ascites but refused admit who presented to [facility] 03/13/2025 for abdominal pains, found to have elevated tbili and ascites. Hepatology is consulted for decompensated cirrhosis. Decompensated Cirrhosis - Likely 2/2 alcohol, drinks 3 beers daily. At his most, was drinking 30- pack of beers/ day, hasn't been doing this for ~a decade now, slowly decreasing. No prior autoimmune workup. He states he follows with hepatology, Dr. Parr in [place] but is interested in establishing with [facility]. - Alcohol level elevated at 39 on admit. 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 No history of seizures from alcohol withdrawal. - Baseline weight around 210 pounds. - EV screen: He reports EGD multiple years ago that was normal however unable to see these records. Due for repeat EGD, likely plan to do during this admission. - HE: On home lactulose (more content not included)... Normal [facility] [place] [facility] Comprehensive metabolic 2000 panelOrdered By: Suma Neil on 03-14-2025 Albumin [Mass/Vol] 2.2 g/dL Low 3.2 - 5.2 g/dL [facility] ALP [Catalytic activity/Vol] 156 U/L High 40 - 150 U/L [facility] ALT [Catalytic activity/Vol] 38 U/L 0 - 50 U/L [facility] Anion gap [Moles/Vol] 12 mmol/L 10 - 2 0 mmol/L [facility] AST [Catalytic activity/Vol] 79 U/L High 0 - 50 U/L [facility] Bilirubin [Mass/Vol] 15.1 mg/dL High 0.0 - 1 .3 mg/dL [facility] Calcium [Mass/Vol] 8.4 mg/dL 8.4 - 10. 2 mg/dL [facility] Chloride [Moles/Vol] 99 mmol/L 98 - 10 8 mmol/L [facility] Creatinine [Mass/Vol] 0.24 mg/dL Low 0.50 - 1.30 mg/dL [facility] Comment on above: Specimen Icteric GFR/1.73 sq M.predicted CKD-EPI (S/P/Bld) [Vol rate/Area] 151 - PINF [facility] Comment on above: Estimated GFR was ca lculated using the 2020 CKD-EPI creatinine equation. Glucose [Mass/Vol] 105 mg/dL High 65 - 99 mg/dL [facility] HCO3 [Moles/Vol] 25 mmol/L 21 - 32 mmol/L [facility] Interpretation and review of laboratory results Abnormal [facility] Potassium [Moles/Vol] 3.7 mmol/L 3.5 - 5.1 mmol/L [facility] Protein [Mass/Vol] 6.1 g/dL 6.0 - 8.0 g/dL [facility] Comment on above: Specimen Icteric Sodium [Moles/Vol] 132 mmol/L Low 135 - 145 mmol/L [facility] Urea nitrogen [Mass/Vol] 3 mg/dL Low 8 - 25 mg/dL [facility] Urea nitrogen/Creatinine [Mass ratio] 12.5 mg/mg 10.0 - 20.0 [facility] has implemented the eGFR calculation approach that does not have a coefficient for race that conforms to the NKF-ASN Task Force Recommendations. [facility] ECHOCARDIOGRAM COMPLETEon ECHOCARDIOGRAM COMPLETE Patient Info Name: ARYAN VALLE Age: 55 years : 1970 Gender: Male Ht: 180 cm Wt: 98 kg BSA: 2.23 m2 HR: 79 bpm BP: 93 / 54 mmHg Technical Quality: Technically difficult Exam Date: 03/14/2025 12:31 PM Patient Status: Inpatient Spice Blender: Aryan Veras, JOEL, ZAHEER Exam Type: ECHOCARDIOGRAM COMPLETE Study Info Indications - Other R22.40 - Localized swelling, mass and lump, unspecified lower limb [facility] Referring Physician: [id number] Godfrey DANIELLE, ; [phone] BMI: 29.99 kg/m2 Summary 1. Normal left [...] Valve Name Value Normal PV Regurgitation Doppler OK Peak Gradient 1 mmHg OK Peak End Diastolic Velocity 59 cm/s Mitral [...] Value Normal (more content not included)... Normal [facility] [place] [facility] EKGon 03-14-2025 [facility] Echocardiogram CompleteOrder ed By: Truong Roque on 03-14-2025 Aortic valve area 3.08044 cm [facility] Work Phone: AV mean gradient 4 mmHg [facility] Work Phone: AV peak gradient 6.5536 mmHg [facility] Work Phone: EF 66.3776 % [facility] Work Phone: [facility] Work Phone: Echocardiogram Completeon Patient Info Name: ARYAN VALLE Age: 55 years : 1970 Gender: Male Ht: 180 cm Wt: 98 kg BSA: 2.23 m2 HR: 79 bpm BP: 93 / 54 mmHg Technical Quality: Technically difficult Exam Date: 03/14/2025 12:31 PM Patient Status: Inpatient Spice Blender: Aryan Veras, JOEL, BRITTT Exam Type: ECHOCARDIOGRAM COMPLETE Study Info Indications - Other R22.40 - Localized swelling, mass and lump, unspecified lower limb [facility] Referring Physician: [id number] Godfrey DANIELLE, ; [phone] BMI: 29.99 kg/m2 Summary 1. Normal left [...] Valve Name Value Normal PV Regurgitation Doppler OK Peak Gradient 1 mmHg OK Peak End Diastolic Velocity 59 cm/s Mitral [...] MD - 03/14/2025 Patient Info Name: ARYAN VALLE Age: 55 years : 1970 Gender: Male Ht: 180 cm Wt: 98 kg BSA: 2.23 m2 HR: 79 bpm BP: 93 / 54 mmHg Technical Quality: Technically difficult Exam Date: 03/14/2025 12:31 PM Patient Status: Inpatient Spice Blender: Eda, Aryan, RDCS, RVT Exam Type: ECHOCARDIOGRAM COMPLETE Study Info Indications - Other R22.40 - Localized swelling, mass and lump, unspecified lower limb Attending Physician: [facility] Referring Physician: [id number] Escobar DANIELLE, ; [phone] BMI: 29.99 kg/m2 Summary 1. Normal left [...] Valve Name Value Normal PV Regurgitation Doppler OK Peak Gradient 1 mmHg OK Peak End Diastolic Velocity 59 cm/s Mitral [...] 0.1-0.2 Aorta ----- (more content not included)... [facility] Endoscopy, Esophaguson 03-14 [facility] HEPATITIS A ANTIBODY, IGMon 03-14-2025 HEPATITIS A IGM ANTIBODY Negative Normal Negative [facility] [place] [facility] Comment on above: Order Comment: Test performed using Pepper HOLLAND immunoassay system Performed By: #### 4 [id number] #### [facility] [address] [place] [address] Jeronimo Crowe M.D. [id number] HEPATITIS A ANTIBODY,TOTALon 03-14-2025 HEPATITIS A TOTAL ANTIBODY Positive Abnormal Negative [facility] [place] [facility] Comment on above: Order Comment: Test performed using Pepper HOLALND immunoassay system Performed By: #### L [id number] #### [facility] [address] [place], [place] [address] Jeronimo Crowe M.D. [id number] HEPATITIS B CORE ANTIBODY, T OTALon 03-14-2025 HEPATITIS B CORE TOTAL ANTIBODY Negative Normal Negative [facility] [place] [facility] Comment on above: Order Comment: Test performed using Pepper HOLLAND immunoassay system Performed By: #### 4 [id number] #### [facility] [address] [place], [place] [address] Jeronimo Crowe M.D. [id number] HEPATITIS B SURFACE ANTIBODY on 03-14-2025 HEPATITIS B SURFACE ANTIBODY Negative Normal Negative [facility] [place] [facility] Comment on above: Order Comment: Test performed using Pepper HOLLAND immunoassay system Performed By: #### 4 [id number] #### [facility] [address] [place], [place] [address] Jeronimo Crowe M.D. [id number] HEPATITIS B SURFACE ANTIGENo n 03-14-2025 HEPATITIS B SURFACE ANTIGEN Negative Normal Negative [facility] [place] [facility] Comment on above: Order Comment: Test performed using Pepper HOLLAND immunoassay system Performed By: #### [id number] ####[facility] [address] [place], [place] [address] Jeronimo Crowe M.D. [id number] HEPATITIS C ANTIBODYon 03-14 HEPATITIS C ANTIBODY Negative Normal Negative [facility] Comment on above: Order Comment: Test performed using Pepper HOLLAND immunoassay system Performed By: #### 4 [id number] #### [facility] [address] [place] [address] Jeronimo Crowe M.D. [id number] Hepatitis A Antibody, IgMon 03-14-2025 HAV IgM Ql (S) Negative Negative [facility] Interpretation and review of laboratory results Normal [facility] Test performed using Pepper HOLLAND immunoassay system [facility] Hepatitis A Antibody, Totalo n 03-14-2025 HAV Ab Ql (S) Positive Abnormal Negative [facility] Interpretation and review of laboratory results Abnormal [facility] Hepatitis B Core Antibody, T otalon 03-14-2025 HBV core Ab Ql (S) Negative Negative [facility] Hepatitis B Surface Antibody on 03-14-2025 HBV surface Ab Ql (S) Negative Negative [facility] Hepatitis B Surface Antigeno n 03-14-2025 HBV surface Ag Ql (S) Negative Negative [facility] Hepatitis C Antibodyon 03-14 HCV Ab Ql (S) Negative Negative [facility] INR Coag (PPP) [Relative chente e]on 03-14-2025 Interpretation and review of laboratory results Abnormal [facility] PT Coag (PPP) [Time] 32.5 s [facility] During the induction phase of oral anticoagulation, the INR may not reflect the anticoagulation status of the patient. Therapeutic ranges for INR's are: Most clinical situations: INR 2.0-3.0 Mechanical Prosthetic Valve: INR 2.5-3.5 Critical: INR >5.0 [facility] MAGNESIUM LEVELon 03-14-2025 Magnesium [Mass/Vol] 1.8 mg/dL Normal 1.6-2.4 [facility] Comment on above: Performed By: #### 4 [id number] #### [facility] [address] [place] [address] Jeronimo Crowe M.D. [id number] Magnesiumon 03-14-2025 Magnesium [Mass/Vol] 1.8 mg/dL 1.6 - 2 .4 mg/dL [facility] Magnesium [Mass/Vol]on 03-14 Interpretation and review of laboratory results Normal [facility] NONGYN CYTOLOGYon 03-14-2025 NONGYN CYTOLOGY Medical Cytology Rep ort Case: [id number] Authorizing Provider: Daxa Rubio CNP Collected: 03/14/2025 09:33 AM Ordering Location: [facility] Received: 03/14/2025 12:32 PM Hospital Interventional Radiology Pathologist: Lourdes Tyson MD Specimen: Paracentesis, diag para Negative for malignant cells at 1225 EDT 1200 mL cloudy orange fluid 1 Smear slide, Diff-Quik stained, 1 ThinPrep slide, Pap stained, 1 Cellblock with 1 H&E stained slide Specimen Processing and Primary Screening performed at: [facility] [place] [facility] - [address] [place] [address] Comment on above: Performed By: #### [id number] #### [facility] [address] [place] [address] Jeronimo Crowe M.D. [id number] No Panel Informationon 03-14 Interpretation and review of laboratory results Normal [facility] Test performed using Pepper HOLLAND immunoassay system [facility] No Panel InformationOrdered By: Suma Neil on 03-14-2025 [facility] PROTEIN, BODY FLUIDon 2024 PROTEIN FLUID 0.9 g/dL Normal [facility] [place] [facility] Comment on above: Order Comment: No es tablished reference range. Performed By: #### L [id number] #### [facility] [address] [place], [place] [address] Jeronimo Crowe M.D. [id number] PT/INRon 03-14-2025 INR Coag (PPP) [Relative time] 3.1 {INR} High 0.8 - 1.1 [facility] INR Coag (PPP) [Relative time] 3.1 {INR} High 0.8-1.[address] [facility] [place] [facility] Comment on above: Order Comment: Charis henson the induction phase of oral anticoagulation, the INR may not reflect the anticoagulation status of the patient. Therapeutic ranges for INR's are:Most clinical situations: INR 2.0-3.0Mechanical Prosthetic Valve: INR 2.5-3.5Critical: INR >5.0 Performed By: #### L [id number] #### [facility] [address] [place] [address] Jeronimo Crowe M.D. [id number] PT Coag (PPP) [Time] 32.5 s High 11.8-14.3 [facility] Comment on above: Order Comment: Charis henson the induction phase of oral anticoagulation, the INR may not reflect the anticoagulation status of the patient. Therapeutic ranges for INR's are:Most clinical situations: INR 2.0-3.0Mechanical Prosthetic Valve: INR 2.5-3.5Critical: INR >5.0 Performed By: #### L [id number] #### [facility] [address] [place] [address] Jeronimo Crowe M.D. [id number] Protein (Body fld) [Mass/Vol ]on 03-14-2025 No established refer ence range. [facility] Protein, Body Fluidon 2024 Protein (Body fld) [Mass/Vol] 0.9 g/dL [facility] TISSUE EXAMon 03-14-2025 TISSUE EXAM Surgical Pathology Report Case: [id number] Authorizing Provider: Angella Yu MD Collected: 03/14/2025 11:27 AM Ordering Location: [facility] Received: 03/14/2025 12:45 PM Hospital Endoscopy Pathologist: [...] activity. The technical component was performed at [facility] [place] [facility], [address] [place] [address]. The HER2 and ER immunohistochemistry protocols are approved by the U.S. Food and Drug Administration. Immunohistochemical and OSMAR assays use biotin-free polymer detection system. Other immunophenotyping or in-situ hybridization (OSMAR) tests and their performance characteristics were determined by [facility]. They have not been cleared or approved [...] test uses a reagent labeled by the assistant plant controller as research use only and it is used per assistant plant controller's instructions. This test has not been cleared or approved by the U.S. Food and Drug Administration. Its performance characteristics were determined by [facility] in a manner consistent with CLIA requirements. Decompensated cirrhosis, K72.90, K74.60, ETOH abuse, F10.10. Endoscopic Finding(s): R/O H. pylori, maneuver-biopsy. Received in formalin labeled Aryan Valle and designated gastric biopsy are three piece(s) ranging from 0.1 to 0.4 cm. All M/1. XJW/XJS/pkp Gross examination performed at: [facility] [place] [facility] - [address] [place] [address] Microscopic examination is performed. Normal [facility] [place] [facility] Comment on above: Performed By: #### 4 [id number] #### [facility] [address] [place] [address] Jeronimo Crowe M.D. [id number] ALCOHOL, [facility] 5 ALCOHOL MEDICAL 39.0 mg/dL High <10.[address] [facility] [place] [facility] Comment on above: Performed By: #### 4 [id number] #### [facility] [address] [place] [address] Jeronimo Crowe M.D. [id number] Alcohol, [facility] 5 Ethanol [Mass/Vol] 39 mg/dL High NINF - 10 .0 mg/dL [facility] BASIC METABOLIC PANELon 02-22 Anion gap [Moles/Vol] 14 mmol/L Normal 10-20 [facility] Comment on above: Order Comment: [facility] has implemented the eGFR calculation approach that does not have a coefficient for race that conforms to the NKF-ASN Task Force Recommendations. Performed By: #### 4 [id number] ####[facility] [address] [place] [address] Jeronimo Crowe M.D. [id number] Calcium [Mass/Vol] 8.4 mg/dL Normal 8.4-10.2 [facility] Comment on above: Order Comment: [facility] has implemented the eGFR calculation approach that does not have a coefficient for race that conforms to the NKF-ASN Task Force Recommendations. Performed By: #### 4 [id number] ####[facility] [address] [place], [place] [address] Jeronimo Crowe M.D. [id number] Chloride [Moles/Vol] 97 mmol/L Low 98-108 [facility] Comment on above: Order Comment: [facility] has implemented the eGFR calculation approach that does not have a coefficient for race that conforms to the NKF-ASN Task Force Recommendations. Performed By: #### 4 [id number] ####[facility] [address] [place], [place] [address] Jeronimo Crowe M.D. [id number] Creatinine [Mass/Vol] 0.66 mg/dL Normal 0.50-1.30 [facility] Comment on above: Order Comment: [facility] has implemented the eGFR calculation approach that does not have a coefficient for race that conforms to the NKF-ASN Task Force Recommendations. Result Comment: Spec imen Icteric Performed By: #### 4 [id number] ####[facility] [address] [place] [address] Jeronimo Crowe M.D. [id number] EGFR 111 mL/min/1.73 m2 Normal >=60 [facility] Comment on above: Order Comment: [facility] has implemented the eGFR calculation approach that does not have a coefficient for race that conforms to the NKF-ASN Task Force Recommendations. Result Comment: Autumn mated GFR was calculated using the 2020 CKD-EPI creatinine equation. Performed By: #### 4 [id number] ####[facility] [address] [place] [address] Jeronimo Crowe M.D. [id number] Glucose [Mass/Vol] 162 mg/dL High 65-99 [facility] Comment on above: Order Comment: [facility] has implemented the eGFR calculation approach that does not have a coefficient for race that conforms to the NKF-ASN Task Force Recommendations. Performed By: #### 4 [id number] ####[facility] [address] [place] [address] Jeronimo Crowe M.D. [id number] HCO3 (Bld) [Moles/Vol] 24 mmol/L Normal 21-32 [facility] [place] [facility] Comment on above: Order Comment: [facility] has implemented the eGFR calculation approach that does not have a coefficient for race that conforms to the NKF-ASN Task Force Recommendations. Performed By: #### 4 [id number] ####[facility] [address] [place] [address] Jeronimo Crowe M.D. [id number] Potassium [Moles/Vol] 3.4 mmol/L Low 3.5-5.1 [facility] Comment on above: Order Comment: [facility] has implemented the eGFR calculation approach that does not have a coefficient for race that conforms to the NKF-ASN Task Force Recommendations. Performed By: #### 4 [id number] ####[facility] [address] [place] [address] Jeronimo Crowe M.D. [id number] Sodium [Moles/Vol] 132 mmol/L Low 135-145 [facility] Comment on above: Order Comment: [facility] has implemented the eGFR calculation approach that does not have a coefficient for race that conforms to the NKF-ASN Task Force Recommendations. Performed By: #### 4 [id number] ####[facility] [facility] [address] [place] [id number] Jeronimo Crowe M.D. [id number] Urea nitrogen [Mass/Vol] 3 mg/dL Low 8-[address] [facility] [place] [facility] Comment on above: Order Comment: [facility] has implemented the eGFR calculation approach that does not have a coefficient for race that conforms to the NKF-ASN Task Force Recommendations. Performed By: #### [id number] ####[facility] [place], [place] [address] Jeronimo Crowe M.D. [id number] Urea nitrogen/Creatinine [Mass ratio] 4.5 mg/mg Low 10.0-20.[address] [facility] [place] [facility] Comment on above: Order Comment: [facility] Services has implemented the eGFR calculation approach that does not have a coefficient for race that conforms to the NKF-ASN Task Force Recommendations. Performed By: #### 4 [id number] ####[facility] [place], [place] [address] Jeronimo Crowe M.D. [id number] BNP (NT Pro BNP)on Natriuretic peptide.B prohormone N-Terminal [Mass/Vol] 148 pg/mL 0 - 300 pg/mL [facility] Basic metabolic 2000 panelOr dered By: Phillip Berumen on 03-13-2025 Anion gap [Moles/Vol] 14 mmol/L 10 - 2 0 mmol/L [facility] Calcium [Mass/Vol] 8.4 mg/dL 8.4 - 10. 2 mg/dL [facility] Chloride [Moles/Vol] 97 mmol/L Low 98 - 10 8 mmol/L [facility] Creatinine [Mass/Vol] 0.66 mg/dL 0.50 - 1.30 mg/dL [facility] Comment on above: Specimen Icteric GFR/1.73 sq M.predicted CKD-EPI (S/P/Bld) [Vol rate/Area] 111 - PINF [facility] Comment on above: Estimated GFR was ca lculated using the 2020 CKD-EPI creatinine equation. Glucose [Mass/Vol] 162 mg/dL High 65 - 99 mg/dL [facility] HCO3 [Moles/Vol] 24 mmol/L 21 - 32 mmol/L [facility] Interpretation and review of laboratory results Abnormal [facility] Potassium [Moles/Vol] 3.4 mmol/L Low 3.5 - 5.1 mmol/L [facility] Sodium [Moles/Vol] 132 mmol/L Low 135 - 145 mmol/L [facility] Urea nitrogen [Mass/Vol] 3 mg/dL Low 8 - 25 mg/dL [facility] Urea nitrogen/Creatinine [Mass ratio] 4.5 mg/mg Low 10.0 - 20.0 [facility] Services has implemented the eGFR calculation approach that does not have a coefficient for race that conforms to the NKF-ASN Task Force Recommendations. [facility] CBC Auto Differentialon - Basophils (Bld) [#/Vol] 0.05 10*3/uL [facility] Basophils/100 WBC (Bld) 1.3 % [facility] Eosinophils (Bld) [#/Vol] 0.09 10*3/uL [facility] Eosinophils/100 WBC (Bld) 2.4 % [facility] Erythrocyte distribution width (RBC) [Entitic vol] 14.3 % 11.6 - 14.8 % [facility] Hematocrit (Bld) [Volume fraction] 30.1 % Low 41.0 - 53.0 % [facility] Hemoglobin (Bld) [Mass/Vol] 10.2 g/dL Low 13.5 - 17.5 g/dL [facility] Immature granulocytes (Bld) [#/Vol] 0.03 10*3/uL [facility] Immature granulocytes/100 WBC (Bld) 0.8 % [facility] Comment on above: The IG parameter is the percentage of metamyelocytes, myelocytes and promyelocytes. An immature granulocyte count (IG) of 1% or more suggests the possibility of infection, an IG count of 3% is very likely related to an infection. Interpretation and review of laboratory results Abnormal [facility] Lymphocytes (Bld) [#/Vol] 0.7 10*3/uL Low [facility] Lymphocytes/100 WBC (Bld) 18.8 % [facility] MCH (RBC) [Entitic mass] 40 pg High 26.0 - 34.0 pg [facility] MCHC (RBC) [Mass/Vol] 33.9 g/dL 31.0 - 37.0 g/dL [facility] MCV (RBC) [Entitic vol] 118 fL High 80.0 - 100.0 fL [facility] Monocytes (Bld) [#/Vol] 0.45 10*3/uL [facility] Monocytes/100 WBC (Bld) 12.1 % [facility] Neutrophils (Bld) [#/Vol] 2.41 10*3/uL [facility] Neutrophils/100 WBC (Bld) 64.6 % [facility] Nucleated RBC (Bld) [#/Vol] 0 10*3/uL [facility] Nucleated RBC/100 WBC (Bld) [Ratio] 0 % [facility] Platelet mean volume (Bld) [Entitic vol] 10 fL 9.4 - 12.4 fL [facility] Platelets (Bld) [#/Vol] 82 10*3/uL [facility] RBC (Bld) [#/Vol] 2.55 10*6/uL Low [facility] eah WBC (Bld) [#/Vol] 3.73 10*3/uL Low [facility] WITH AUTO DIFFERENTIALon 03-13-2025 AUTO NRBC 0.0 % Normal [facility] [place] [facility] Comment on above: Performed By: #### L [id number] #### [facility] [address] [place] [address] Jeronimo Crowe M.D. [id number] AUTO NRBC ABS COUNT 0.00 K/mcL Normal 0.00-0.00 [facility] Comment on above: Performed By: #### L [id number] #### [facility] [address] [place] [address] Jeronimo Crowe M.D. [id number] BASOPHILS ABSOLUTE COUNT 0.05 K/mcL Normal 0.00-0.[address] [facility] [place] [facility] Comment on above: Performed By: #### L [id number] #### [facility] [address] [place] [address] Jeronimo Crowe M.D. [id number] Basophils/100 WBC (Bld) 1.3 % Normal R [facility] Comment on above: Performed By: #### L [id number] #### [facility] [address] [place] [address] Jeronimo Crowe M.D. [id number] Eosinophils (Bld) [#/Vol] 0.09 10*3/uL Normal 0.00-0.[address] [facility] [place] [facility] Comment on above: Performed By: #### L [id number] #### [facility] [address] [place] [address] Jeronimo Crowe M.D. [id number] Eosinophils/100 WBC (Bld) 2.4 % Normal [facility] [place] [facility] Comment on above: Performed By: #### L [id number] #### [facility] [address] [place] [address] Jeronimo Crowe M.D. [id number] Erythrocyte distribution width (RBC) [Ratio] 14.3 % Normal 11.6-14.[address] [facility] [place] [facility] Comment on above: Performed By: #### L [id number] #### [facility] [address] [place] [address] Jeronimo Crowe M.D. [id number] Hematocrit (Bld) [Volume fraction] 30.1 % Low 41.0-53.[address] [facility] [place] [facility] Comment on above: Performed By: #### L [id number] #### [facility] [address] [place] [address] Jeronimo Crowe M.D. [id number] Hemoglobin (Bld) [Mass/Vol] 10.2 g/dL Low 13.5-17.[address] [facility] [place] [facility] Comment on above: Performed By: #### L [id number] #### [facility] [address] [place] [address] Jeronimo Crowe M.D. [id number] IG ABSOLUTE 0.03 K/mcL Normal 0.00-0.[address] [facility] [place] [facility] Comment on above: Performed By: #### L [id number] #### [facility] [address] [place] [address] Jeronimo Crowe M.D. [id number] IG PERCENT 0.80 % Normal [facility] [place] [facility] Comment on above: Result Comment: The IG parameter is the percentage of metamyelocytes, myelocytes and promyelocytes. An immature granulocyte count (IG) of 1% or more suggests the possibility of infection, an IG count of 3% is very likely related to an infection. Performed By: #### L [id number] #### [facility] [address] [place] [address] Jeronimo Crowe M.D. [id number] Lymphocytes (Bld) [#/Vol] 0.70 10*3/uL Low 0.90-4.[address] [facility] [place] [facility] Comment on above: Performed By: #### L [id number] #### [facility] [address] [place] [address] Jeronimo Crowe M.D. [id number] Lymphocytes/100 WBC (Bld) 18.8 % Normal [facility] [place] [facility] Comment on above: Performed By: #### Mack [id number] #### [facility] [address] [place] [address] Jeronimo Crowe M.D. [id number] MCH (RBC) [Entitic mass] 40.0 pg High 26.0-34.[address] [facility] [place] [facility] Comment on above: Performed By: #### Mack [id number] #### [facility] [address] [place], [place] [address] Jeronimo Crowe M.D. [id number] MCV (RBC) [Entitic vol] 118.0 fL High 80.0-100.0 R [facility] Comment on above: Performed By: #### L [id number] #### [facility] [address] [place], [place] [address] Jeronimo Crowe M.D. [id number] MEAN CORPUSCULAR HEMOGLOBIN CONC 33.9 g/dL Normal 31.0-37.[address] [facility] [place] [facility] Comment on above: Performed By: #### L [id number] #### [facility] [address] [place] [address] Jeronimo Crowe M.D. [id number] Monocytes (Bld) [#/Vol] 0.45 10*3/uL Normal 0.30-0.[address] [facility] [place] [facility] Comment on above: Performed By: #### L [id number] #### [facility] [address] [place] [address] Jeronimo Crowe M.D. [id number] Monocytes/100 WBC (Bld) 12.1 % Normal [facility] Comment on above: Performed By: #### Mack [id number] #### [facility] [address] [place] [address] Jeronimo Crowe M.D. [id number] NEUTROPHILS ABSOLUTE COUNT 2.41 K/mcL Normal 1.70-7.[address] [facility] [place] [facility] Comment on above: Performed By: #### Mack [id number] #### [facility] [address] [place] [address] Jeronimo Crowe M.D. [id number] Neutrophils/100 WBC (Bld) 64.6 % Normal [facility] [place] [facility] Comment on above: Performed By: #### Mack [id number] #### [facility] [address] [place], [place] [address] Jeronimo Crowe M.D. [id number] Platelet mean volume (Bld) [Entitic vol] 10.0 fL Normal 9.4-12.[address] [facility] [place] [facility] Comment on above: Performed By: #### L [id number] #### [facility] [address] [place] [address] Jeronimo Crowe M.D. [id number] Platelets (Bld) [#/Vol] 82 10*3/uL Low 150-400 [facility] Comment on above: Performed By: #### L [id number] #### [facility] [address] [place] [address] Jeronimo Crowe M.D. [id number] RBC (Bld) [#/Vol] 2.55 10*6/uL Low 4.50-5.90 [facility] Comment on above: Performed By: #### L [id number] #### [facility] [address] [place], [place] [address] Jeronimo Crowe M.D. [id number] WBC (Bld) [#/Vol] 3.73 10*3/uL Low 4.50-11.00 [facility] Comment on above: Performed By: #### L [id number] #### [facility] [address] [place], [place] [address] Jeronimo Crowe M.D. [id number] CONSULTon 03-13-2025 CONSULT Vascular & Interventional Radiology Provided By [facility] FOR PROVIDER USE ONLY: [facility] [place] [facility] Interventional Radiology: [phone] [facility] Interventional Radiology: [phone] [facility] Interventional Radiology: [phone] 15/06 VIR physician contact: [phone]) FOR PATIENT AND PROVIDERS: [facility]: [phone] [email or web address] Patient Name: Aryan Valle : 1970 Code Status: Full Code VIR consult received for USg diagnostic paracentesis. Pertinent past medical/surgical history: Aryan Valle is a 55 YO male with a PMH of seizures, HTN, cirrhosis, alcohol use disorder who presented to [facility] with abdominal pain. He was found to [...] TBD by the VIR control desk @ [phone] pending emergent cases and other scheduling demands. Please call the [facility] VIR out-patient office @ [phone] (Option 0) if requested procedure is desired [...] 82 (L) 03/13/2025 Pertinent image(s) (if applicable): [facility] Jane-procedure lab value guideline: Table 1. LOW [...] dilation, stone removal) Venous interventions: intrathoracic and [employer] intervention PT/INR < 1.8 (if arterial access, femoral: INR < 1.8, radial: INR < 2.2) Platelets > 50,000/mcL (Consider transfusing platelets if <50,000/mcL) If patient with Chronic Liver D (more content not included)... Normal [facility] [place] [facility] DRUGS OF ABUSE SCREEN, URINE on 03-13-2025 AMPHETAMINE SCREEN, URINE Not detected Normal None Detected [facility] [place] [facility] Comment on above: Order Comment: Scree n results should be used for treatment purposes only. Result Comment: Urin e Amphetamine Cutoff: < 1000 ng/mL = None Detected Performed By: #### 4 [id number] ####[facility] [address] [place] [address] Jeronimo Crowe M.D. [id number] BARBITURATE SCREEN URINE Not detected Normal None Detected [facility] [place] [facility] Comment on above: Order Comment: Scree n results should be used for treatment purposes only. Result Comment: Urin e Barbiturates Cutoff: < 200 ng/mL = None Detected Performed By: #### 4 [id number] ####[facility] [address] [place] [address] Jeronimo Crowe M.D. [id number] BENZODIAZEPINE SCREEN, URINE Not detected Normal None Detected [facility] [place] [facility] Comment on above: Order Comment: Scree n results should be used for treatment purposes only. Result Comment: Urin e Benzodiazepine Cutoff: < 200 ng/mL = None Detected Performed By: #### 4 [id number] ####[facility] [address] [place] [address] Jeronimo Crowe M.D. [id number] BUPRENORPHINE, URINE Not detected Normal None Detected [facility] [place] [facility] Comment on above: Order Comment: Scree n results should be used for treatment purposes only. Result Comment: Urin e Buprenorphine Cutoff: < 5 ng/mL = None Detected Performed By: #### 4 [id number] ####[facility] [address] [place] [address] Jeronimo Crowe M.D. [id number] CANNABINOID SCREEN URINE Not detected Normal None Detected [facility] [place] [facility] Comment on above: Order Comment: Scree n results should be used for treatment purposes only. Result Comment: Urin e Cannabinoids Cutoff: < 50 ng/mL = None Detected Performed By: #### 4 [id number] ####[facility] [address] [place] [address] Jeronimo Crowe M.D. [id number] COCAINE, SCREEN URINE Not detected Normal None Detected [facility] [place] [facility] Comment on above: Order Comment: Scree n results should be used for treatment purposes only. Result Comment: Urin e Cocaine Cutoff: < 300 ng/mL = None Detected Performed By: #### 4 [id number] ####[facility] [address] [place] [address] Jeronimo Crowe M.D. [id number] FENTANYL, URINE Not detected Normal None Detected [facility] [place] [facility] Comment on above: Order Comment: Scree n results should be used for treatment purposes only. Result Comment: Urin e Fentanyl Cutoff: < 1 ng/mL = None Detected Performed By: #### 4 [id number] ####[facility] [address] [place] [address] Jeronimo Crowe M.D. [id number] METHADONE SCREEN, URINE Not detected Normal None Detected [facility] [place] [facility] Comment on above: Order Comment: Scree n results should be used for treatment purposes only. Result Comment: Urin e Methadone Cutoff: < 300 ng/mL = None Detected Performed By: #### 4 [id number] ####[facility] [address] [place], [place] [address] Jeronimo Crowe M.D. [id number] OPIATE SCREEN URINE Not detected Normal None Detected [facility] [place] [facility] Comment on above: Order Comment: Scree n results should be used for treatment purposes only. Result Comment: Urin e Opiates Cutoff: < 300 ng/mL = None Detected Performed By: #### 4 [id number] ####[facility] [address] [place] [address] Jeronimo Crowe M.D. [id number] OXYCODONE SCREEN, URINE Not detected Normal None Detected [facility] [place] [facility] Comment on above: Order Comment: Scree n results should be used for treatment purposes only. Result Comment: Urin e Oxycodone Cutoff: < 100 ng/mL = None Detected Performed By: #### 4 [id number] ####[facility] [address] [place] [address] Jeronimo Crowe M.D. [id number] Drugs of Abuse Screen, Urine on 03-13-2025 Amphetamines Ql (U) Not detected None Detected [facility] Comment on above: Urine Amphetamine Cu toff: < 1000 ng/mL = None Detected Barbiturates Screen Ql (U) Not detected None Detected [facility] Comment on above: Urine Barbiturates C utoff: < 200 ng/mL = None Detected Benzodiazepines Ql (U) Not detected None Detected [facility] Comment on above: Urine Benzodiazepine Cutoff: < 200 ng/mL = None Detected Buprenorphine Ql (U) Not detected None Detected [facility] Comment on above: Urine Buprenorphine Cutoff: < 5 ng/mL = None Detected Cannabinoids Screen Ql (U) Not detected None Detected [facility] Comment on above: Urine Cannabinoids C utoff: < 50 ng/mL = None Detected Cocaine Ql (U) Not detected None Detected [facility] Comment on above: Urine Cocaine Cutoff : < 300 ng/mL = None Detected fentaNYL+Norfentanyl Screen Ql (U) Not detected None Detected [facility] Comment on above: Urine Fentanyl Cutof f: < 1 ng/mL = None Detected Interpretation and review of laboratory results Normal [facility] Methadone Screen Ql (U) Not detected None Detected [facility] Comment on above: Urine Methadone Cuto ff: < 300 ng/mL = None Detected Opiates Screen Ql (U) Not detected None Detected [facility] Comment on above: Urine Opiates Cutoff : < 300 ng/mL = None Detected oxyCODONE Ql (U) Not detected None Detected [facility] Comment on above: Urine Oxycodone Cuto ff: < 100 ng/mL = None Detected Screen results shoul d be used for treatment purposes only. [facility] ED Prov Noteon 03-13-2025 ED Prov Note [...] constant pressure sensation. Was previously seen at [facility] and recommend admission for transaminitis with ascites but declined at that time. Patient was also noted to be seen at [facility] in which he eloped before he was [...] or auditory hallucinations. When patient was at [facility] he also noted concerns for cellulitis of his left lower extremity, physician at that time felt that this was more chronic and not cellulitis but patient was prophylactically covered with Keflex, patient received 1 dose and was unable to bean picker prescription. Carolynn was unable to do [...] expedite correspondence this note was generated by [employer] voice recognition software. This note was partially [...] All other components within normal limits Narrative: [facility] Laboratory Services has implemented the eGFR calculation [...] Procedure Abnormality (more content not included)... Normal [facility] EKG 12-leadon 03-13-2025 Atrial Rate 84 BPM [facility] P [place] 23 degrees [facility] P-R Interval 172 ms [facility] Q-T Interval 412 ms [facility] QRS Duration 84 ms [facility] QTC Calculation (Bezet) 486 ms O [facility] R [place] 16 degrees [facility] T [place] 5 degrees [facility] Ventricular Rate 84 BPM [facility] Normal sinus rhythm Cannot rule out Inferior infarct , age undetermined Cannot rule out Anterior infarct , age undetermined Abnormal ECG Confirmed by BRADLEY CLARK MD ([id number]) on 03/13/2025 1:08:33 PM MUSE [facility] Ethanol [Mass/Vol]on 025 Interpretation and review of laboratory results Abnormal [facility] Gold Topon 03-13-2025 Extra Tube Hold for add-ons. [facility] Comment on above: Auto resulted. [facility] H AND Saul 03-13-2025 H AND P ---- -------- Attestation signed by Irving Dixon MD at 03/13/2025 6:18 PM I have personally performed a [id number] diagnostic evaluation of this patient on 03/13/2025. [...] and Physical Note 03/13/25 Aryan Valle 1970 [id number] Assessment/Plan: Aryan Valle is a 55 y.o. male with a history of seizures, HTN, cirrhosis, alcohol use disorder, admission at [facility] 02/24/25 for abdominal distention but left AMA, ED visit 03/11/25 for decompensated cirrhosis and large volume ascites who declined admission to [facility] or transfer to [facility] for hepatology evaluation who presented to [facility] 03/13/2025 with ongoing abdominal pain. ED workup [...] DVT Prophylaxis: lovenox Medication Reconciliation: Reviewed using lot technician Current living situation: home Expected Disposition: [...] HTN, cirrhosis, alcohol use disorder, admission at [facility] 02/24/25 for abdominal distention but left AMA, ED visit 03/11/25 for decompensated cirrhosis and large volume ascites who declined admission to [facility] or transfer to tertiary hospital for hepatology evaluation who presented to [facility] 03/13/2025 with ongoing abdomin (more content not included)... Normal [facility] HEPATIC FUNCTION PANELon Albumin [Mass/Vol] 2.9 g/dL Low 3.2-5.2 [facility] Comment on above: Performed By: #### [id number] #### [facility] [address] [place] [address] Jeronimo Crowe M.D. [id number] ALP [Catalytic activity/Vol] 200 U/L High 40-[address] [facility] [place] [facility] Comment on above: Performed By: #### 4 [id number] #### [facility] [address] [place] [address] Jeronimo Crowe M.D. [id number] ALT [Catalytic activity/Vol] 47 U/L Normal 0-50 U/L [facility] Comment on above: Performed By: #### 4 [id number] #### [facility] [address] [place] [address] Jeronimo Crowe M.D. [id number] AST [Catalytic activity/Vol] 112 U/L High 0-50 U/L [facility] Comment on above: Performed By: #### 4 [id number] #### [facility] [address] [place] [address] Jeronimo Crowe M.D. [id number] Bilirubin [Mass/Vol] 18.3 mg/dL High 0.0-1.3 [facility] Comment on above: Performed By: #### 4 [id number] #### [facility] [address] [place], [place] [address] Jreonimo Crowe M.D. [id number] Bilirubin.indirect [Mass/Vol] 9.0 mg/dL High 0.0-0.[address] [facility] Comment on above: Performed By: #### 4 [id number] #### [facility] [address] [place], [place] [address] Jeronimo Crowe M.D. [id number] Protein [Mass/Vol] 8.3 g/dL High 6.0-8.0 [facility] Comment on above: Performed By: #### 4 [id number] #### [facility] [address] [place], [place] [address] Jeronimo Crowe M.D. [id number] Hepatic function 2000 panelo n 03-13-2025 Albumin [Mass/Vol] 2.9 g/dL Low 3.2 - 5.2 g/dL [facility] ALP [Catalytic activity/Vol] 200 U/L High 40 - 150 U/L [facility] [place] ALT [Catalytic activity/Vol] 47 U/L 0 - 50 U/L [facility] AST [Catalytic activity/Vol] 112 U/L High 0 - 50 U/L [facility] [place] Bilirubin [Mass/Vol] 18.3 mg/dL High 0.0 - 1 .3 mg/dL [facility] [place] Bilirubin.conjugated [Mass/Vol] 9 mg/dL High 0.0 - 0.4 mg/dL [facility] [place] Interpretation and review of laboratory results Abnormal [facility] [place] Protein [Mass/Vol] 8.3 g/dL High 6.0 - 8.0 g/dL [facility] INR Coag (PPP) [Relative chente e]on 03-13-2025 Interpretation and review of laboratory results Abnormal [facility] PT Coag (PPP) [Time] 28.5 s High [facility] During the induction phase of oral anticoagulation, the INR may not reflect the anticoagulation status of the patient. Therapeutic ranges for INR's are: Most clinical situations: INR 2.0-3.0 Mechanical Prosthetic Valve: INR 2.5-3.5 Critical: INR >5.0 [facility] NT PRO BNPon 03-13-2025 Natriuretic peptide B (Bld) [Mass/Vol] 148 pg/mL Normal 0-[address] [facility] [place] [facility] Comment on above: Order Comment: Pride Study Cut-offsRule In:< /= 50 Years >450 pg/mL51 Years - 75 Years >900 pg/mL76 Years - 99 Years >1800 pg/mLRule Out:All patients <300 pg/mL Performed By: #### L [id number] #### [facility] [address] [place] [address] Jeronimo Crowe M.D. [id number] Natriuretic peptide.B prohor markel N-Terminal [Mass/Vol]on 03-13-2025 Interpretation and review of laboratory results Normal [facility] [place] Pride Study Cut-offs Rule In: < /= 50 Years >450 pg/mL 51 Years - 75 Years >900 pg/mL 76 Years - 99 Years >1800 pg/mL Rule Out: All patients <300 pg/mL [facility] No Panel Informationon 03-13 Extra Tube Hold for add-ons. [facility] Comment on above: Auto resulted. [facility] [place] PHOSPHATIDYLETHANOL CONFIRMA TION, BLOODon 03-13-2025 GLEASON - PETH 16:0/18:1 (POPETH) BY LC MS/MS See Ref Lab Comment Normal Cutoff: 10 [facility] Comment on above: Result Comment: Unkn [...] and Joanie Jacobs 2018 J. [facility] Sci) CHE - PETH 16:0/18:2 (PLPETH) BY LC MS/MS 244 ng/mL Normal Cutoff: [address] [facility] [place] [facility] Comment on above: Result Comment: PEth 16:0/18:2 (PLPEth) Reference ranges are not well established [facility] INTERPRETATION Positive Normal [facility] [place] [facility] Comment on above: Result Comment: ADDITIONAL INFORMATION This report is intended for use in clinical monitoring and management of patients. It is not intended for use in employment-related testing. This test was developed and its performance characteristics determined by [facility] in a manner consistent with CLIA requirements. This test has not been cleared or approved by the U.S. Food and Drug Administration. Test Performed by: [facility] [address] [place] [id number] Program Support Specialist: Ashleigh Kim Ph.D.; CLIA# [id number] PT/INRon 03-13-2025 INR Coag (PPP) [Relative time] 2.7 {INR} High 0.8 - 1.1 [facility] INR Coag (PPP) [Relative time] 2.7 {INR} High 0.8-1.[address] [facility] [place] [facility] Comment on above: Order Comment: Charis henson the induction phase of oral anticoagulation, the INR may not reflect the anticoagulation status of the patient. Therapeutic ranges for INR's are:Most clinical situations: INR 2.0-3.0Mechanical Prosthetic Valve: INR 2.5-3.5Critical: INR >5.0 Performed By: #### 4 [id number] ####[facility] [place] [address] Jeronimo Crowe M.D. [id number] PT Coag (PPP) [Time] 28.5 s High 11.8-14.3 [facility] Comment on above: Order Comment: Charis henson the induction phase of oral anticoagulation, the INR may not reflect the anticoagulation status of the patient. Therapeutic ranges for INR's are:Most clinical situations: INR 2.0-3.0Mechanical Prosthetic Valve: INR 2.5-3.5Critical: INR >5.0 Performed By: #### 4 [id number] ####[facility] [address] [place] [address] Jeronimo Crowe M.D. [id number] URINALYSISon 03-13-2025 BACTERIA, URINE Few Abnormal None Seen [facility] [place] [facility] Comment on above: Order Comment: Micro scopic examination is performed on all urinalysis samples and only positive findings are reported. The test for blood on the chemical analytic portion of urinalysis may also be positive due to hemoglobinuria and myoglobinuria and if red blood cells are present they are quantified by microscopic examination. Performed By: #### 4 [id number] #### [facility] [address] [place], [place] [id number] Jeronimo Crowe M.D. [id number] BILIRUBIN, URINE Positive Abnormal Negative [facility] Comment on above: Order Comment: Micro [...] pyridium. Performed By: #### 4 [id number] #### [facility] [address] [place], [place] [id number] Jeronimo Crowe M.D. [id number] BLOOD, URINE Negative Normal Negative [facility] [place] [facility] Comment on above: Order Comment: Micro scopic examination is performed on all urinalysis samples and only positive findings are reported. The test for blood on the chemical analytic portion of urinalysis may also be positive due to hemoglobinuria and myoglobinuria and if red blood cells are present they are quantified by microscopic examination. Performed By: #### 4 [id number] #### [facility] [address] [place] [address] Jeronimo Crowe M.D. [id number] Clarity (U) Cloudy Abnormal Clear [facility] [place] [facility] Comment on above: Order Comment: Micro scopic examination is performed on all urinalysis samples and only positive findings are reported. The test for blood on the chemical analytic portion of urinalysis may also be positive due to hemoglobinuria and myoglobinuria and if red blood cells are present they are quantified by microscopic examination. Performed By: #### 4 [id number] #### [facility] [address] [place] [address] Jeronimo Crowe M.D. [id number] Color (U) Yellow Normal Colorless, Yellow [facility] [place] [facility] Comment on above: Order Comment: Micro scopic examination is performed on all urinalysis samples and only positive findings are reported. The test for blood on the chemical analytic portion of urinalysis may also be positive due to hemoglobinuria and myoglobinuria and if red blood cells are present they are quantified by microscopic examination. Performed By: #### 4 [id number] #### [facility] [address] [place] [address] Jeronimo Crowe M.D. [id number] Glucose Ql (U) Negative Normal Negative [facility] [place] [facility] Comment on above: Order Comment: Micro scopic examination is performed on all urinalysis samples and only positive findings are reported. The test for blood on the chemical analytic portion of urinalysis may also be positive due to hemoglobinuria and myoglobinuria and if red blood cells are present they are quantified by microscopic examination. Performed By: #### 4 [id number] #### [facility] [address] [place] [address] Jeronimo Crowe M.D. [id number] Hyaline casts LM Ql (Urine sed) 3-5 Abnormal 0-[address] [facility] [place] [facility] Comment on above: Order Comment: Micro scopic examination is performed on all urinalysis samples and only positive findings are reported. The test for blood on the chemical analytic portion of urinalysis may also be positive due to hemoglobinuria and myoglobinuria and if red blood cells are present they are quantified by microscopic examination. Performed By: #### 4 [id number] #### [facility] [address] [place], [place] [address] Jeronimo Crowe M.D. [id number] Ketones Ql (U) Negative Normal Negative [facility] [place] [facility] Comment on above: Order Comment: Micro scopic examination is performed on all urinalysis samples and only positive findings are reported. The test for blood on the chemical analytic portion of urinalysis may also be positive due to hemoglobinuria and myoglobinuria and if red blood cells are present they are quantified by microscopic examination. Performed By: #### 4 [id number] #### [facility] [address] [place], [place] [address] Jeronimo Crowe M.D. [id number] Leukocyte esterase Test strip Ql (U) Negative Normal Negative [facility] [place] [facility] Comment on above: Order Comment: Micro scopic examination is performed on all urinalysis samples and only positive findings are reported. The test for blood on the chemical analytic portion of urinalysis may also be positive due to hemoglobinuria and myoglobinuria and if red blood cells are present they are quantified by microscopic examination. Performed By: #### 4 [id number] #### [facility] [address] [place], [place] [address] Jeronimo Crowe M.D. [id number] MUCUS, URINE Rare Normal None Seen, Rare [facility] [place] [facility] Comment on above: Order Comment: Micro scopic examination is performed on all urinalysis samples and only positive findings are reported. The test for blood on the chemical analytic portion of urinalysis may also be positive due to hemoglobinuria and myoglobinuria and if red blood cells are present they are quantified by microscopic examination. Performed By: #### 4 5033 #### [facility] [address] [place], [place] [address] Jeronimo Crowe M.D. [id number] NITRITE, URINE Negative Normal Negative [facility] [place] [facility] Comment on above: Order Comment: Micro scopic examination is performed on all urinalysis samples and only positive findings are reported. The test for blood on the chemical analytic portion of urinalysis may also be positive due to hemoglobinuria and myoglobinuria and if red blood cells are present they are quantified by microscopic examination. Performed By: #### 4 [id number] #### [facility] [address] [place], [place] [address] Jeronimo Crowe M.D. [id number] pH (U) 6.0 [pH] Normal 5.0-7.[address] [facility] [place] [facility] Comment on above: Order Comment: Micro scopic examination is performed on all urinalysis samples and only positive findings are reported. The test for blood on the chemical analytic portion of urinalysis may also be positive due to hemoglobinuria and myoglobinuria and if red blood cells are present they are quantified by microscopic examination. Performed By: #### 4 5033 #### [facility] [address] [place] [address] Jeronimo Crowe M.D. [id number] PROTEIN, URINE Negative Normal Negative [facility] [place] [facility] Comment on above: Order Comment: Micro scopic examination is performed on all urinalysis samples and only positive findings are reported. The test for blood on the chemical analytic portion of urinalysis may also be positive due to hemoglobinuria and myoglobinuria and if red blood cells are present they are quantified by microscopic examination. Performed By: #### 4 5033 #### [facility] [address] [place] [address] Jeronimo Crowe M.D. [id number] RBC, URINE < Normal 0-[address] [facility] [place] [facility] Comment on above: Order Comment: Micro scopic examination is performed on all urinalysis samples and only positive findings are reported. The test for blood on the chemical analytic portion of urinalysis may also be positive due to hemoglobinuria and myoglobinuria and if red blood cells are present they are quantified by microscopic examination. Performed By: #### 4 [id number] #### [facility] [address] [place] [address] Jeronimo Crowe M.D. [id number] Specific gravity (U) [Rel density] 1.021 Normal 1.005-1.[address] [facility] [place] [facility] Comment on above: Order Comment: Micro scopic examination is performed on all urinalysis samples and only positive findings are reported. The test for blood on the chemical analytic portion of urinalysis may also be positive due to hemoglobinuria and myoglobinuria and if red blood cells are present they are quantified by microscopic examination. Performed By: #### 4 5033 #### [facility] [address] [place] [address] Jeronimo Crowe M.D. [id number] SQUAMOUS EPITHELIAL < Normal 0-4 [facility] Comment on above: Order Comment: Micro scopic examination is performed on all urinalysis samples and only positive findings are reported. The test for blood on the chemical analytic portion of urinalysis may also be positive due to hemoglobinuria and myoglobinuria and if red blood cells are present they are quantified by microscopic examination. Performed By: #### 4 5033 #### [facility] [address] [place] [address] Jeronimo Crowe M.D. [id number] UNCLASSIFIED CRYSTALS None Seen Normal None Seen [facility] Comment on above: Order Comment: [...] EDT Performed By: #### 4 [id number] #### [facility] [address] [place] [address] Jeronimo Crowe M.D. [id number] UROBILINOGEN, URINE >=4.0 Abnormal <2.0 [facility] Comment on above: Order Comment: Micro scopic examination is performed on all urinalysis samples and only positive findings are reported. The test for blood on the chemical analytic portion of urinalysis may also be positive due to hemoglobinuria and myoglobinuria and if red blood cells are present they are quantified by microscopic examination. Performed By: #### 4 5033 #### [facility] [address] [place] [address] Jeronimo Crowe M.D. [id number] WBC CLUMPS, URINE Rare Abnormal None Seen [facility] Comment on above: Order Comment: Micro scopic examination is performed on all urinalysis samples and only positive findings are reported. The test for blood on the chemical analytic portion of urinalysis may also be positive due to hemoglobinuria and myoglobinuria and if red blood cells are present they are quantified by microscopic examination. Performed By: #### 4 5033 #### [facility] [address] [place] [address] Jeronimo Crowe M.D. [id number] WBC LM.HPF (Urine sed) [#/Area] 1 /[HPF] Normal 0-[address] [facility] [place] [facility] Comment on above: Order Comment: Micro scopic examination is performed on all urinalysis samples and only positive findings are reported. The test for blood on the chemical analytic portion of urinalysis may also be positive due to hemoglobinuria and myoglobinuria and if red blood cells are present they are quantified by microscopic examination. Performed By: #### 4 [id number] #### [facility] [address] [place] [address] Jeronimo Crowe M.D. [id number] US DUPLEX VENOUS LEGS BILATE [facility] 03-13-2025 US DUPLEX VENOUS LEGS BILATERAL Patient Info Name: ARYAN VALLE Age: 55 years : 1970 Gender: Male Exam Date: 03/13/2025 11:49 AM Patient Status: Emergency Sofa Inspector: Maury Bryant, ZAHEER, JUDAH Referring Physician: KAYLEN Robin; Attending Physician: JESUS ALBERTO LINDSAY Indications R60.9 - Edema, unspecified Procedure Description 07512 Duplex examination using B-mode, color and spectral [...] Small Saphenous: - Small Saphenous: - Normal [facility] [place] [facility] US DUPLEX VENOUS LEGS BILATERAL Patient Info Name: ARYAN VALLE Age: 55 years : 1970 Gender: Male Exam Date: 03/13/2025 11:49 AM Patient Status: Emergency Sofa Inspector: Maury Bryant, ZAHEER, [place] Referring Physician: KAYLEN Robin; Attending Physician: JESUS ALBERTO LINDSAY Indications R60.9 - Edema, unspecified Procedure Description 57072 Duplex examination using B-mode, color and spectral [...] ThuMar 13, 2025 12:30:21 PM EDT Normal [facility] [place] [facility] Ultrasound Duplex Venous Leg s BILATERALon 03-13-2025 Patient Info Name: ARYAN VALLE Age: 55 years : 1970 Gender: Male Exam Date: 03/13/2025 11:49 AM Patient Status: Emergency Sofa Inspector: Maury Bryant, ZAHEER, [facility] Referring Physician: KAYLEN Robin; Attending Physician: JESUS ALBERTO LINDSAY Indications R60.9 - Edema, unspecified Procedure Description 76172 Duplex examination using B-mode, color and spectral [...] Date: 03/13/2025 11:49 AM Patient Status: Emergency Sofa Inspector: Maury Bryant, BRITTT, RDMS Referring Physician: [id number] Sotomayor; Attending Physician: JESUS ALBERTO LINDSAY Indications R60.9 - Edema, unspecified Procedure Description 89307 Duplex examination using B-mode, color and spectral [...] - Small Saphenous: - Small Saphenous: - [facility] UrinalysisOrdered By: Alejandro Barillas on 03-13-2025 Bacteria Auto Ql (U) Few Abnormal None Se en /hpf [facility] Bilirubin Ql (U) Positive Abnormal Negative [facility] Comment on above: False positive urine bilirubins can occur in the setting of a large amount of hemoglobin and secondary to medications including anti-inflammatory agents, rifampin, and pyridium. Clarity Refractometry automated (U) Cloudy Abnormal Clear [facility] Color (U) Yellow Colorless, Yellow [facility] Epithelial cells.squamous Auto (Urine sed) [#/Area] [facility] Glucose Auto test strip (U) [Mass/Vol] Negative Negative mg/dL [facility] Hemoglobin Auto test strip Ql (U) Negative Negative [facility] Hyaline casts Auto (Urine sed) [#/Area] 3-5 Abnormal [facility] Interpretation and review of laboratory results Abnormal [facility] Ketones (U) [Mass/Vol] Negative Negat brittney mg/dL [facility] [place] Leukocyte clumps Auto (Urine sed) [#/Area] Rare Abnormal None Seen /hpf [facility] Leukocyte esterase Auto test strip Ql (U) Negative Negative [facility] [place] Mucus Auto (Urine sed) [#/Area] Rare None Seen, Rare /lpf [facility] Nitrite Auto test strip Ql (U) Negative Negative [facility] pH (U) 6 [pH] 5.0 - 7.0 [facility] [place] Protein (U) [Mass/Vol] Negative Negat brittney mg/dL [facility] RBC Auto (Urine sed) [#/Area] [facility] Specific gravity (U) [Rel density] 1.021 1.005 - 1.025 [facility] [place] Unidentified crystals LM.HPF (Urine sed) [#/Area] None Seen None Seen /hpf [facility] Comment on above: This is a corrected result. Previous result was Rare /hpf on 03/13/2025 at 1858 EDT Urobilinogen (U) [Mass/Vol] mg/dL Abnormal NINF - 2.0 mg/dL [facility] WBC Auto (Urine sed) [#/Area] 1 [facility] [place] Microscopic examinat ion is performed on all urinalysis samples and only positive findings are reported. The test for blood on the chemical analytic portion of urinalysis may also be positive due to hemoglobinuria and myoglobinuria and if red blood cells are present they are quantified by microscopic examination. [facility] XR CHEST PA/APon 03-13-2025 XR CHEST PA/AP [...] of the visualized osseous structures appear intact. [employer] Workstation ID: [id number] Dictated by: SHAQ BEE on ThuMar 13, 2025 11:57:14 AM EDT Transcribed by: YOUSIF BELTRAN on ThuMar 13, 2025 12:10:18 PM EDT Finalized by: SHAQ BEE on ThuMar 13, 2025 12:32:46 PM EDT Normal [facility] [place] [facility] Comment on above: Order Comment: Injur [...] of the visualized osseous structures appear intact. [employer] Workstation ID: [id number] Spacebar EXAMINATION: PORTABLE AP UPRIGHT CHEST: 03/13/2025 AT [...] structures appear intact. [employer] Workstation ID: [id number] [facility] Radiology Study observation (narrative) XR Chest PA and Abdomen APOr dered By: Shaq Bee on 03-13-2025 [facility] Work Phone: BASIC METABOLIC PANELon 02-21 Anion gap [Moles/Vol] 13 mmol/L Normal 10-20 [facility] Comment on above: Order Comment: [facility] has implemented the eGFR calculation approach that does not have a coefficient for race that conforms to the NKF-ASN Task Force Recommendations. Performed By: #### 4 [id number] #### [facility] [address] [place] [address] Brandt Estrada M.D. [id number] Calcium [Mass/Vol] 8.6 mg/dL Normal 8.4-10.2 [facility] Comment on above: Order Comment: [facility] has implemented the eGFR calculation approach that does not have a coefficient for race that conforms to the NKF-ASN Task Force Recommendations. Performed By: #### 4 6124 #### [facility] [address] [place], [place] Brandt Estrada M.D. [id number] Chloride [Moles/Vol] 96 mmol/L Low 98-108 [facility] Comment on above: Order Comment: [facility] has implemented the eGFR calculation approach that does not have a coefficient for race that conforms to the NKF-ASN Task Force Recommendations. Performed By: #### 4 6124 #### [facility] [address] [place], [place] [address] Dinah Estrada M.D. [id number] Creatinine [Mass/Vol] 0.65 mg/dL Normal 0.50-1.30 [facility] Comment on above: Order Comment: [facility] has implemented the eGFR calculation approach that does not have a coefficient for race that conforms to the NKF-ASN Task Force Recommendations. Result Comment: Spec imen Icteric Performed By: #### 4 6124 #### [facility] [address] [place], [place] [address]Marcus Estrada M.D. [id number] EGFR 112 mL/min/1.73 m2 Normal >=60 [facility] Comment on above: Order Comment: [facility] has implemented the eGFR calculation approach that does not have a coefficient for race that conforms to the NKF-ASN Task Force Recommendations. Result Comment: Autumn mated GFR was calculated using the 2020 CKD-EPI creatinine equation. Performed By: #### 4 6124 #### [facility] [address] [place] [address] Dinah Estrada M.D. [id number] Glucose [Mass/Vol] 176 mg/dL High 65-99 [facility] Comment on above: Order Comment: [facility] has implemented the eGFR calculation approach that does not have a coefficient for race that conforms to the NKF-ASN Task Force Recommendations. Performed By: #### 4 6124 #### [facility] [address] [place] [address] Dinah Estrada M.D. [id number] HCO3 (Bld) [Moles/Vol] 25 mmol/L Normal 21-32 [facility] Comment on above: Order Comment: [facility] has implemented the eGFR calculation approach that does not have a coefficient for race that conforms to the NKF-ASN Task Force Recommendations. Performed By: #### 4 6124 #### [facility] [address] [place], [place] [address] Dinah Estrada M.D. [id number] Potassium [Moles/Vol] 3.4 mmol/L Low 3.5-5.1 [facility] Comment on above: Order Comment: [facility] has implemented the eGFR calculation approach that does not have a coefficient for race that conforms to the NKF-ASN Task Force Recommendations. Performed By: #### 4 6124 #### [facility] [address] [place], [place] [address] Dinah Estrada M.D. [id number] Sodium [Moles/Vol] 131 mmol/L Low 135-145 [facility] Comment on above: Order Comment: [facility] has implemented the eGFR calculation approach that does not have a coefficient for race that conforms to the NKF-ASN Task Force Recommendations. Performed By: #### 4 6124 #### [facility] [address] [place], [place] [address] Dinah Estrada M.D. [id number] Urea nitrogen [Mass/Vol] 4 mg/dL Low 8-25 [facility] Comment on above: Order Comment: [facility] has implemented the eGFR calculation approach that does not have a coefficient for race that conforms to the NKF-ASN Task Force Recommendations. Performed By: #### 4 6124 #### [facility] [address] [place], [place] [address] Dinah Estrada M.D. [id number] Urea nitrogen/Creatinine [Mass ratio] 6.2 mg/mg Low 10.0-20.0 [facility] Comment on above: Order Comment: [facility] has implemented the eGFR calculation approach that does not have a coefficient for race that conforms to the NKF-ASN Task Force Recommendations. Performed By: #### 4 6124 #### [facility] [address] [place], [place] [address] Dinah Estrada M.D. [id number] CBC WITH AUTO DIFFERENTIALon 03-11-2025 AUTO NRBC 0.0 % Normal [facility] Comment on above: Performed By: #### L [id number] #### [facility] [address] [place], [place] [address] Dinah Estrada M.D. [id number] AUTO NRBC ABS COUNT 0.00 K/mcL Normal 0.00-0.00 [facility] Comment on above: Performed By: #### L [id number] #### [facility] [address] [place], [place] [address] Dinah Estrada M.D. [id number] BASOPHILS ABSOLUTE COUNT 0.03 K/mcL Normal 0.00-0.30 [facility] Comment on above: Performed By: #### L [id number] #### [facility] [address] [place], [place] [address] Dinah Estrada M.D. [id number] Basophils/100 WBC (Bld) 0.7 % Normal [facility] Comment on above: Performed By: #### L [id number] #### [facility] [address] [place] [address] Dinah Estrada M.D. [id number] Eosinophils (Bld) [#/Vol] 0.08 10*3/uL Normal 0.00-0.50 [facility] Comment on above: Performed By: #### L [id number] #### [facility] [address] [place] [address] Dinah Estrada M.D. [id number] Eosinophils/100 WBC (Bld) 1.9 % Normal [facility] Comment on above: Performed By: #### L [id number] #### [facility] [address] [place] [address] Dinah Estrada M.D. [id number] Erythrocyte distribution width (RBC) [Ratio] 14.5 % Normal 11.6-14.8 [facility] Comment on above: Performed By: #### L [id number] #### [facility] [address] [place] [address] Dinah Estrada M.D. [id number] Hematocrit (Bld) [Volume fraction] 30.2 % Low 41.0-53.0 [facility] Comment on above: Performed By: #### L [id number] #### [facility] [address] [place] [address] Dinah Estrada M.D. [id number] Hemoglobin (Bld) [Mass/Vol] 10.5 g/dL Low 13.5-17.5 [facility] Comment on above: Performed By: #### L [id number] #### [facility] [address] [place] [address] Dinah Estrada M.D. [id number] IG ABSOLUTE 0.03 K/mcL Normal 0.00-0.30 [facility] Comment on above: Performed By: #### L [id number] #### [facility] [address] [place] [address] Dinah Estrada M.D. [id number] IG PERCENT 0.70 % Normal [facility] Comment on above: Result Comment: The IG parameter is the percentage of metamyelocytes, myelocytes and promyelocytes. An immature granulocyte count (IG) of 1% or more suggests the possibility of infection, an IG count of 3% is very likely related to an infection. Performed By: #### L [id number] #### [facility] [address] [place] [address] Dinah Estrada M.D. [id number] Lymphocytes (Bld) [#/Vol] 0.77 10*3/uL Low 0.90-4.00 [facility] Comment on above: Performed By: #### L [id number] #### [facility] [address] [place] [address] Dinah Estrada M.D. [id number] Lymphocytes/100 WBC (Bld) 18.2 % Normal [facility] Comment on above: Performed By: #### L [id number] #### [facility] [address] [place] [address] Dinah Estrada M.D. [id number] MCH (RBC) [Entitic mass] 39.9 pg High 26.0-34.0 [facility] Comment on above: Performed By: #### L [id number] #### [facility] [address] [place] [address] Dinah Estrada M.D. [id number] MCV (RBC) [Entitic vol] 114.8 fL High 80.0-100.0 M [facility] Comment on above: Performed By: #### L [id number] #### [facility] [address] [place] [address] Dinah Estrada M.D. [id number] MEAN CORPUSCULAR HEMOGLOBIN CONC 34.8 g/dL Normal 31.0-37.0 [facility] Comment on above: Performed By: #### L [id number] #### [facility] [address] [place] [address] Dinah Estrada M.D. [id number] Monocytes (Bld) [#/Vol] 0.45 10*3/uL Normal 0.30-0.90 [facility] Comment on above: Performed By: #### L [id number] #### [facility] [address] [place], [place] [address] Dinah Estrada M.D. [id number] Monocytes/100 WBC (Bld) 10.7 % Normal [facility] Comment on above: Performed By: #### L [id number] #### [facility] [address] [place], [place] [address] Dinah Estrada M.D. [id number] NEUTROPHILS ABSOLUTE COUNT 2.86 K/mcL Normal 1.70-7.00 [facility] Comment on above: Performed By: #### L [id number] #### [facility] [address] [place], [place] [address] Dinah Estrada M.D. [id number] Neutrophils/100 WBC (Bld) 67.8 % Normal [facility] Comment on above: Performed By: #### L [id number] #### [facility] [address] [place], [place] [address] Dinah Estrada M.D. [id number] Platelet mean volume (Bld) [Entitic vol] 10.3 fL Normal 9.4-12.4 [facility] Comment on above: Performed By: #### L [id number] #### [facility] [address] [place], [place] [address] Dinah Estrada M.D. [id number] Platelets (Bld) [#/Vol] 78 10*3/uL Low 150-400 [facility] Comment on above: Performed By: #### L [id number] #### [facility] [address] [place], [place] [address] Dinah Estrada M.D. [id number] RBC (Bld) [#/Vol] 2.63 10*6/uL Low 4.50-5.90 [facility] Comment on above: Performed By: #### L [id number] #### [facility] [address] [place], [place] [address] Dinah Estrada M.D. [id number] WBC (Bld) [#/Vol] 4.22 10*3/uL Low 4.50-11.00 [facility] Comment on above: Performed By: #### L [id number] #### [facility] [address] [place] [address] Dinah Estrada M.D. [id number] CT ABDOMEN PELVIS WITH IV CO NTRAST [...] Mar 11, 2025 8:54:06 PM EDT Normal [facility] Comment on above: Order Comment: Injur y/Trauma or Illness?:Illness/Other How long have you had these symptoms (acute/chronic)?:Acute Reason for exam?:Abdominal pain, inguinal hernia Type of Exam?:Initial Additional signs and symptoms?:Abdominal pain, inguinal hernia ED Prov Noteon 03-11-2025 ED Prov Note [place] [id number] NAME: Aryan Valle AGE: 55 y.o. PCP: Tana Farmer MD CSN: [id number] Chief Complaint: Leg Swelling CLINICAL IMPRESSION: 1. [...] soft. He was recently evaluated at the [facility] but eloped from the emergency department while [...] ascites, and leg swelling. 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 I feel he would benefit from paracentesis however he is being seen on Thursday night and we do not have this service available until Thursday. I discussed options with Aryan. He has abnormal liver function tests as well as large volume ascites. I recommended transfer to [place] for hepatology evaluation and further treatment. Aryan [...] I offered to transfer him to the [facility] where he was recently seen however he declines transfer to [place] as well. I offered to attempt to admit him here at [facility] however I feel that the hospitalist would [...] days . (more content not included)... Normal [facility] HEPATIC FUNCTION PANELon Albumin [Mass/Vol] 2.8 g/dL Low 3.2-5.2 [facility] Comment on above: Performed By: #### L [id number] #### [facility] [address] [place] [address] Dinah Estrada M.D. [id number] ALP [Catalytic activity/Vol] 208 U/L High 40-150 [facility] Comment on above: Performed By: #### L [id number] #### [facility] [address] [place] [address] Dinah Estrada M.D. [id number] ALT [Catalytic activity/Vol] 47 U/L Normal 0-50 U/L [facility] Comment on above: Performed By: #### L AB295 #### [facility] [address] [place] [address] Dinah Estrada M.D. [id number] AST [Catalytic activity/Vol] 108 U/L High 0-50 U/L [facility] Comment on above: Performed By: #### L [id number] #### [facility] [address] [place] [address] Dinah Estrada M.D. [id number] Bilirubin [Mass/Vol] 19.4 mg/dL High 0.0-1.3 [facility] Comment on above: Performed By: #### L AB295 #### [facility] [address] [place] [address] Dinah Estrada M.D. [id number] Bilirubin.indirect [Mass/Vol] 9.2 mg/dL High 0.0-0.4 [facility] Comment on above: Performed By: #### L AB295 #### [facility] [address] [place], [place] [address] Dinah Estrada M.D. [id number] Protein [Mass/Vol] 7.6 g/dL Normal 6.0-8.0 [facility] Comment on above: Result Comment: Spec imen Icteric Performed By: #### L AB295 #### [facility] [address] [place], [place] [address] Dinah Estrada M.D. [id number] LIPASEon 03-11-2025 Lipase [Catalytic activity/Vol] 43 U/L Normal 15-65 [facility] Comment on above: Performed By: #### L [id number] #### [facility] [address] [place], [place] [address] Dinah Estrada M.D. [id number] MAGNESIUM LEVELon 03-11-2025 Magnesium [Mass/Vol] 1.7 mg/dL Normal 1.6-2.4 [facility] Comment on above: Performed By: #### 4 6109 #### [facility] [address] [place], [place] [address] Dinah Estrada M.D. [id number] MORPHOLOGYon 03-11-2025 PLATELET ESTIMATE Decreased Abnormal Normal [facility] Comment on above: Performed By: #### L AB295 #### [facility] [address] [place], [place] [address] Dinah Estrada M.D. [id number] RBC MORPH SCAN Normal Normal [facility] Comment on above: Result Comment: RBC Indices confirmed with manual peripheral smear review. Performed By: #### L AB295 #### [facility] [address] [place], [place] [address] Dinah Estrada M.D. [id number] NT PRO BNPon 03-11-2025 Natriuretic peptide B (Bld) [Mass/Vol] 171 pg/mL Normal 0-300 [facility] Comment on above: Order Comment: Pride Study Cut-offs Rule In: < /= 50 Years >450 pg/mL 51 Years - 75 Years >900 pg/mL 76 Years - 99 Years >1800 pg/mL Rule Out: All patients <300 pg/mL Performed By: #### 4 7395 #### [facility] [address] [place], [place] [address]Marcus Estrada M.D. [id number] PT/INRon 03-11-2025 INR Coag (PPP) [Relative time] 2.5 {INR} High 0.8-1.1 [facility] Comment on above: Order Comment: Durin g the induction phase of oral anticoagulation, the INR may not reflect the anticoagulation status of the patient. Therapeutic ranges for INR's are: Most clinical situations: INR 2.0-3.0 Mechanical Prosthetic Valve: INR 2.5-3.5 Critical: INR >5.0 Performed By: #### 4 6391 #### [facility] [address] [place], [place] [address]Marcus Estrada M.D. [id number] PT Coag (PPP) [Time] 27.0 s High 11.8-14.3 [facility] Comment on above: Order Comment: Durin g the induction phase of oral anticoagulation, the INR may not reflect the anticoagulation status of the patient. Therapeutic ranges for INR's are: Most clinical situations: INR 2.0-3.0 Mechanical Prosthetic Valve: INR 2.5-3.5 Critical: INR >5.0 Performed By: #### 4 6391 #### [facility] [address] [place], [place] [address]Marcus Estrada M.D. [id number] TROPONIN X 2 (NOW AND REPEAT IN 2 HOURS)on 03-11-2025 TROPONIN T DELTA CHANGE INTERPRETATION No biomarker evidence of cardiac injury. Normal [facility] Comment on above: Performed By: #### 4 6608 #### [facility] [address] [place], [place] [address]Marcus Estrada M.D. [id number] TROPONIN T DELTA DIFFERENCE -1 ng/L Normal < = -/+ 7 change [facility] Comment on above: Performed By: #### 4 6608 #### [facility] [address] [place], [place] [address]Marcus Estrada M.D. [id number] TROPONIN T NG/L 19 ng/L Normal <=22 [facility] Comment on above: Performed By: #### 4 6608 #### [facility] [address] [place], [place] [address] Dinah Estrada M.D. [id number] BASELINE TROPONIN T NG/L 20 ng/L Normal <=22 [facility] Comment on above: Performed By: #### 4 6608 #### [facility] [address] [place], [place] [address] Dinah Estrada M.D. [id number] TROPONIN T INTERPRETATION Normal Normal [facility] Comment on above: Performed By: #### 4 6608 #### [facility] [address] [place], [place] [address] Dinah Estrada M.D. [id number] XR CHEST PA/APon 03-11-2025 XR CHEST PA/AP [...] ID: [id number] Dictated by: RITA CASTILLO on [facility] Mar 11, 2025 8:37:15 PM EDT Transcribed by: RITA CASTILLO on [facility] Mar 11, 2025 8:37:15 PM EDT Finalized by: RITA CASTILLO on [facility] Mar 11, 2025 8:37:15 PM EDT Normal [facility] Comment on above: Order Comment: Injur [...] Basophils (Bld) [#/Vol] 0.00 10*3/uL Normal <0.11 [facility] Comment on above: Order Comment: Speci men Type: BLOOD SPECIMENOrdering Facility: [facility] Address: [address] [place] [address] Performed By: #### 5 7021-8 ####[facility] [id number] [facility] [place] [address] [place] Basophils/100 WBC (Bld) 0.0 % Normal [facility] Comment on above: Order Comment: Speci men Type: BLOOD SPECIMENOrdering Facility: [facility] Address: [address] [place] [address] Performed By: #### 5 7021-8 ####[facility] [id number] [facility] [address], [place] [address] [place] Differential cell count method Nom (Bld) Manual Normal [facility] Comment on above: Order Comment: Speci men Type: BLOOD SPECIMENOrdering Facility: [facility] Address: [address] [place] [address] Performed By: #### 5 7021-8 ####[facility] [id number] [place] [address] [place] Eosinophils (Bld) [#/Vol] 0.15 10*3/uL Normal <0.46 [facility] Comment on above: Order Comment: Speci men Type: BLOOD SPECIMENOrdering Facility: [facility] Address: [address] [place] [address] Performed By: #### 5 7021-8 ####[facility] [id number] [facility] [place] [address] [place] Eosinophils/100 WBC (Bld) 3.5 % Normal [facility] Comment on above: Order Comment: Speci men Type: BLOOD SPECIMENOrdering Facility: [facility] Address: [address] [place] [address] Performed By: #### 5 7021-8 ####[facility]IA [id number] [address], [place] [address] [place] Erythrocyte distribution width (RBC) [Ratio] 14.6 % Normal 11.5-15.0 [facility] Comment on above: Order Comment: Speci men Type: BLOOD SPECIMENOrdering Facility: [facility] Address: [address] [place] [address] Performed By: #### 5 7021-8 ####[facility] LABIA [id number] [address], [place] [address] [place] Hematocrit (Bld) [Volume fraction] 31.5 % Low 39.0-51.0 [facility] Comment on above: Order Comment: Speci men Type: BLOOD SPECIMENOrdering Facility: [facility] Address: [address] [place] [address] Performed By: #### 5 7021-8 ####[facility] LABIA [id number] [address], [place] [address] [place] Hemoglobin (Bld) [Mass/Vol] 10.8 g/dL Low 13.0-17.0 [facility] Comment on above: Order Comment: Speci men Type: BLOOD SPECIMENOrdering Facility: [facility] Address: [address] [place] [address] Performed By: #### 5 7021-8 ####[facility] LABIA [id number] [address], [place] [address] [place] Lymphocytes (Bld) [#/Vol] 0.41 10*3/uL Low 1.00-4.00 [facility] Comment on above: Order Comment: Speci men Type: BLOOD SPECIMENOrdering Facility: [facility] Address: [address] [place] [address] Performed By: #### 5 7021-8 ####[facility] LABIA [id number] [place] [address] [place] Lymphocytes/100 WBC (Bld) 9.6 % Normal [facility] Comment on above: Order Comment: Speci men Type: BLOOD SPECIMENOrdering Facility: [facility] Address: [address] [place] [address] Performed By: #### 5 7021-8 ####[facility] LABCLIA [id number] [place] [address] [place] MCH (RBC) [Entitic mass] 39.0 pg High 26.0-34.0 [facility] Comment on above: Order Comment: Speci men Type: BLOOD SPECIMENOrdering Facility: [facility] Address: [address] [place] [address] Performed By: #### 5 7021-8 ####[facility] LABIA [id number] [place] [address] [place] MCHC (RBC) [Mass/Vol] 34.3 g/dL Normal 30.5-36.0 [facility] Comment on above: Order Comment: Speci men Type: BLOOD SPECIMENOrdering Facility: [facility] Address: [address] [place] [address] Performed By: #### 5 7021-8 ####[facility] LABIA [id number] [place] [address] [place] MCV (RBC) [Entitic vol] 113.7 fL High 80.0-100.0 [facility] Comment on above: Order Comment: Speci men Type: BLOOD SPECIMENOrdering Facility: [facility] Address: [address] [place] [address] Performed By: #### 5 7021-8 ####[facility] LABIA [id number] [place] [address] [place] Monocytes (Bld) [#/Vol] 0.22 10*3/uL Normal <0.87 [facility] Comment on above: Order Comment: Speci men Type: BLOOD SPECIMENOrdering Facility: [facility] Address: [address] [place] [address] Performed By: #### 5 7021-8 ####[facility] LABCLIA [id number] [place] [address] [place] Monocytes/100 WBC (Bld) 5.2 % Normal [facility] Comment on above: Order Comment: Speci men Type: BLOOD SPECIMENOrdering Facility: [facility] Address: [address] [place] [address] Performed By: #### 5 7021-8 ####[facility] LABCLIA [id number] [place] [address] [place] Neutrophils (Bld) [#/Vol] 3.49 10*3/uL Normal 1.45-7.50 [facility] Comment on above: Order Comment: Speci men Type: BLOOD SPECIMENOrdering Facility: [facility] Address: [address] [place] [address] Performed By: #### 5 7021-8 ####[facility] LABCLIA [id number] [address] [place] Neutrophils/100 WBC (Bld) 81.7 % Normal [facility] Comment on above: Order Comment: Speci men Type: BLOOD SPECIMENOrdering Facility: [facility] Address: [address] [place] [address] Performed By: #### 5 7021-8 ####[facility] LABCLIA [id number] [place] [id number] [place] Nucleated RBC (Bld) [#/Vol] 10*3/uL Normal <0.01 [facility] Comment on above: Order Comment: Speci men Type: BLOOD SPECIMENOrdering Facility: [facility] Address: [address] [place] [address] Performed By: #### 5 7021-8 ####[facility] LABCLIA [id number] [address] [address] [place] Nucleated RBC/100 WBC (Bld) [Ratio] 0.0 /100 WBC Normal [facility] Comment on above: Order Comment: Speci men Type: BLOOD SPECIMENOrdering Facility: [facility] Address: [address] [place] [address] Performed By: #### 5 7021-8 ####[facility] LABIA [id number] [place] [address] [place] Platelet mean volume (Bld) [Entitic vol] 9.8 fL Normal 9.0-12.7 [facility] Comment on above: Order Comment: Speci men Type: BLOOD SPECIMENOrdering Facility: [facility] Address: [address] [place] [address] Performed By: #### 5 7021-8 ####[facility] LABIA [id number] [place] [address] [place] Platelets (Bld) [#/Vol] 75 10*3/uL Low 150-400 C [facility] Comment on above: Order Comment: Speci men Type: BLOOD SPECIMENOrdering Facility: [facility] Address: [address] [place] [address] Result Comment: No c lot detected. Performed By: #### 5 7021-8 ####[facility] LABIA [id number] [place] [address] [place] Platelets Estimate (Bld) [#/Vol] Decreased Normal [facility] Comment on above: Order Comment: Speci men Type: BLOOD SPECIMENOrdering Facility: [facility] Address: [address] [place] [address] Performed By: #### 5 7021-8 ####[facility] LABCLIA [id number] [address], [facility] [place] Polychromasia LM Ql (Bld) Slight Normal [facility] Comment on above: Order Comment: Speci men Type: BLOOD SPECIMENOrdering Facility: [facility] Address: [address] [place] [address] Performed By: #### 5 7021-8 ####[facility] LABCLIA [id number] [address] [address] [place] RBC (Bld) [#/Vol] 2.77 10*6/uL Low 4.20-6.00 [facility] Comment on above: Order Comment: Speci men Type: BLOOD SPECIMENOrdering Facility: [facility] Address: [address] [place] [address] Performed By: #### 5 7021-8 ####[facility] LABCLIA [id number] [place] [id number] [place] RED CELL MORPH Reviewed: unremarkable Normal [facility] Comment on above: Order Comment: Speci men Type: BLOOD SPECIMENOrdering Facility: [facility] Address: [address] [place] [address] Performed By: #### 5 7021-8 ####[facility] LABIA [id number] [place] [address] [place] WBC (Bld) [#/Vol] 4.27 10*3/uL Normal 3.70-11.00 [facility] Comment on above: Order Comment: Speci men Type: BLOOD SPECIMENOrdering Facility: [facility] Address: [address] [place] [address] Performed By: #### 5 7021-8 ####[facility] LABCLIA [id number] [address] [place] [address] [place] Comprehensive metabolic 2000 panelon 03-07-2025 Albumin [Mass/Vol] 3.0 g/dL Low 3.9-4.9 [facility] Comment on above: Order Comment: Speci men Type: BLOOD SPECIMENOrdering Facility: [facility] Address: [address] [place] [address] Performed By: #### 3 040-3, , ####[facility] LABCLIA [id number] [facility] [address] [place] [address] [place] ALP [Catalytic activity/Vol] 216 U/L High 38-113 [facility] Comment on above: Order Comment: Speci men Type: BLOOD SPECIMENOrdering Facility: [facility] Address: [address] [place] [address] Performed By: #### 3 040-3, , ####[facility] LABCLIA [id number] [facility] [address] [place] [address] [place] ALT [Catalytic activity/Vol] 49 U/L Normal 10-54 [facility] Comment on above: Order Comment: Speci men Type: BLOOD SPECIMENOrdering Facility: [facility] Address: [address] [place] [address] Performed By: #### 3 040-3, , ####[facility] LABCLIA [id number] [address] [place] [address] [place] Anion gap [Moles/Vol] 12 mmol/L Normal 8-15 [facility] Comment on above: Order Comment: Speci men Type: BLOOD SPECIMENOrdering Facility: [facility] Address: [address] [place] [address] Performed By: #### 3 040-3, , ####[facility] LABCLIA [id number] [facility] [address] [place] [address] [place] AST [Catalytic activity/Vol] 123 U/L High 14-40 [facility] Comment on above: Order Comment: Speci men Type: BLOOD SPECIMENOrdering Facility: [facility] Address: [address] [place], [place] [address] Performed By: #### 3 040-3, , ####[facility] LABCLIA [id number] [address] [address] [place] Bilirubin [Mass/Vol] 19.7 mg/dL High 0.2-1.3 [facility] Comment on above: Order Comment: Speci men Type: BLOOD SPECIMENOrdering Facility: [facility] Address: [address] [place] [address] Performed By: #### 3 040-3, 82372-1, ####[facility] LABCLIA [id number] [place] [address] [place] Calcium [Mass/Vol] 8.4 mg/dL Low 8.5-10.2 [facility] Comment on above: Order Comment: Speci men Type: BLOOD SPECIMENOrdering Facility: [facility] Address: [address] [place] [address] Performed By: #### 3 040-3, 69078-8, ####[facility] LABCLIA [id number] [place] [address] [place] Chloride [Moles/Vol] 99 mmol/L Normal 98-107 [facility] Comment on above: Order Comment: Speci men Type: BLOOD SPECIMENOrdering Facility: [facility] Address: [address] [place] [address] Performed By: #### 3 040-3, 03208-7, ####[facility] LABCLIA [id number] [place] [id number] [place] CO2 [Moles/Vol] 23 mmol/L Normal 22-30 [facility] Comment on above: Order Comment: Speci men Type: BLOOD SPECIMENOrdering Facility: [facility] Address: [address] [place] [address] Performed By: #### 3 040-3, 48607-1, ####[facility] LABCLIA [id number] [facility] [place] [id number] [place] Creatinine [Mass/Vol] 0.54 mg/dL Low 0.73-1.22 [facility] Comment on above: Order Comment: Sahil harper Type: BLOOD SPECIMENOrdering Facility: [facility] Address: [address] [place] [address] Result Comment: Resu lt may be falsely decreased due to interference from icterus. Performed By: #### 3 040-3, 84674-9, ####[facility] LABIA [id number] [address] OF [facility] Creatinine and Glomerular filtration rate.predicted panel (S/P/Bld) 118 mL/min/1.73m??? Normal >=60 [facility] Comment on above: Order Comment: Sahil harper Type: BLOOD SPECIMENOrdering Facility: [facility] Address: [address] [place] [address] Result Comment: Autumn mated Glomerular Filtration Rate [...] actual GFR. Performed By: #### 3 040-3, 71311-1, ####[facility] LABIA [id number] [address] [address] [place] Glucose [Mass/Vol] 139 mg/dL High 74-99 [facility] Comment on above: Order Comment: Sahil harper Type: BLOOD SPECIMENOrdering Facility: [facility] Address: [address] [place] [address] Result Comment: The [place] Diabetes Association (ADA) provides guidance for cutoff [...] Standards of Medical Care in Diabetes 2016, [place] [employer]. Diabetes Care. 2016.39(Suppl 1). Performed By: #### 3 040-3, 80525-5, ####[facility] LABCLIA [id number] [place] [address] [place] Potassium [Moles/Vol] 3.5 mmol/L Low 3.7-5.1 [facility] Comment on above: Order Comment: Speci men Type: BLOOD SPECIMENOrdering Facility: [facility] Address: [address] [place] [address] Performed By: #### 3 040-3, , ####[facility] LABIA [id number] [place] [address] [place] Protein [Mass/Vol] 7.6 g/dL Normal 6.3-8.0 [facility] Comment on above: Order Comment: Speci men Type: BLOOD SPECIMENOrdering Facility: [facility] Address: [address] [place] [address] Result Comment: Resu lt may be falsely decreased due to interference from icterus. Performed By: #### 3 040-3, , ####[facility] LABIA [id number] [place] [address] [place] Sodium [Moles/Vol] 134 mmol/L Low 136-144 [facility] Comment on above: Order Comment: Speci men Type: BLOOD SPECIMENOrdering Facility: [facility] Address: [address] [place] [address] Performed By: #### 3 040-3, , ####[facility] LABCLIA [id number] [place] [address] [place] Urea nitrogen [Mass/Vol] 4 mg/dL Low 9-24 [facility] Comment on above: Order Comment: Speci men Type: BLOOD SPECIMENOrdering Facility: [facility] Address: [address] [place], [place] [address] Performed By: #### 3 040-3, 10955-3, ####[facility] LABCLIA [id number] [place] [address] [place] ED Triage Noteon 03-07-2025 ED Triage Note HNO ID: [id number] Author: MARY ALICE GARCIA MD Service: Emergency [...] Culture SIGNATURE: Mary Alice Garcia MD Normal [facility] Lipase SerPl-cCncon 03-07-20 25 Lipase [Catalytic activity/Vol] 43 U/L Normal 16-61 [facility] Comment on above: Order Comment: Speci men Type: BLOOD SPECIMENOrdering Facility: [facility] Address: [address] [place], [place] [address] Performed By: #### 3 040-3, 92626-6, ####[facility] LABCLIA [id number] [place] [address] [place] Magnesium SerPl-mCncon 03-07 Magnesium [Mass/Vol] 1.5 mg/dL Low 1.7-2.3 [facility] Comment on above: Order Comment: Speci men Type: BLOOD SPECIMENOrdering Facility: [facility] Address: [address] [place] [address] Performed By: #### 3 040-3, 98387-6, 76026-7 ####[facility] LABCLIA [id number] [place] [address] [place] CBC W Auto Differential pane l (Bld)on 02-24-2025 Basophils (Bld) [#/Vol] 0.05 10*3/uL Normal <0.11 [facility] Comment on above: Order Comment: Speci men Type: BLOOD SPECIMEN [facility] Address: [address] [place] [address] Performed By: #### 5 7021-8 #### [facility] CLIA [id number] [address] [place] [address] [place] Basophils/100 WBC (Bld) 1.4 % Normal [facility] Comment on above: Order Comment: Speci men Type: BLOOD SPECIMEN [facility] Address: [address] [place] [address] Performed By: #### 5 7021-8 #### [facility] CLIA [id number] [address] [place] [address] [place] Differential cell count method Nom (Bld) Auto Normal [facility] Comment on above: Order Comment: Speci men Type: BLOOD SPECIMEN [facility] Address: [address] [place] [address] Performed By: #### 5 7021-8 #### [facility] CLIA [id number] [address] [place] [address] [place] Eosinophils (Bld) [#/Vol] 0.16 10*3/uL Normal <0.46 [facility] Comment on above: Order Comment: Speci men Type: BLOOD SPECIMEN [facility] Address: [address] [place] [address] Performed By: #### 5 7021-8 #### [facility] CLIA [id number] [address] [place] [address] [place] Eosinophils/100 WBC (Bld) 4.5 % Normal [facility] Comment on above: Order Comment: Speci men Type: BLOOD SPECIMEN [facility] Address: [address] [place] [address] Performed By: #### 5 7021-8 #### [facility] CLIA [id number] [address] [place] Erythrocyte distribution width (RBC) [Ratio] 15.0 % Normal 11.5-15.0 [facility] Comment on above: Order Comment: Speci men Type: BLOOD SPECIMEN [facility] Address: [address] [place] [address] Performed By: #### 5 7021-8 #### [facility] CLIA [id number] [address] [place] Hematocrit (Bld) [Volume fraction] 32.6 % Low 39.0-51.0 [facility] Comment on above: Order Comment: Speci men Type: BLOOD SPECIMEN [facility] Address: [address] [place] [address] Performed By: #### 5 7021-8 #### [facility] CLIA [id number] [address] [place] Hemoglobin (Bld) [Mass/Vol] 11.6 g/dL Low 13.0-17.0 [facility] Comment on above: Order Comment: Speci men Type: BLOOD SPECIMEN [facility] Address: [address] [place] [address] Performed By: #### 5 7021-8 #### [facility] CLIA [id number] [address] [place] Immature granulocytes (Bld) [#/Vol] 10*3/uL Normal <0.10 [facility] Comment on above: Order Comment: Speci men Type: BLOOD SPECIMEN [facility] Address: [address] [place] [address] Performed By: #### 5 7021-8 #### [facility] CLIA [id number] [address] Immature granulocytes/100 WBC (Bld) 0.6 % Normal [facility] Comment on above: Order Comment: Speci men Type: BLOOD SPECIMEN [facility] Address: [address] [place] [address] Performed By: #### 5 7021-8 #### [facility] CLIA [id number] [address] [place] Lymphocytes (Bld) [#/Vol] 0.93 10*3/uL Low 1.00-4.00 [facility] Comment on above: Order Comment: Speci men Type: BLOOD SPECIMEN [facility] Address: [address] [place] [address] Performed By: #### 5 7021-8 #### [facility] CLIA [id number] [address] Lymphocytes/100 WBC (Bld) 26.3 % Normal [facility] Comment on above: Order Comment: Speci men Type: BLOOD SPECIMEN [facility] Address: [address] [place] [address] Performed By: #### 5 7021-8 #### [facility] CLIA [id number] [address] OF [facility] MCH (RBC) [Entitic mass] 38.5 pg High 26.0-34.0 [facility] Comment on above: Order Comment: Speci men Type: BLOOD SPECIMEN [facility] Address: [address] [place] [address] Performed By: #### 5 7021-8 #### [facility] CLIA [id number] [address] MCHC (RBC) [Mass/Vol] 35.6 g/dL Normal 30.5-36.0 [facility] Comment on above: Order Comment: Speci men Type: BLOOD SPECIMEN [facility] Address: [address] [place] [address] Performed By: #### 5 7021-8 #### [facility] CLIA [id number] [address] [place] [address] [place] MCV (RBC) [Entitic vol] 108.3 fL High 80.0-100.0 [facility] Comment on above: Order Comment: Speci men Type: BLOOD SPECIMEN [facility] Address: [address] [place] [address] Performed By: #### 5 7021-8 #### [facility] CLIA [id number] [address] [place] [address] [place] Monocytes (Bld) [#/Vol] 0.42 10*3/uL Normal <0.87 [facility] Comment on above: Order Comment: Speci men Type: BLOOD SPECIMEN [facility] Address: [address] [place] [address] Performed By: #### 5 7021-8 #### [facility] CLIA [id number] [address] [place] Monocytes/100 WBC (Bld) 11.9 % Normal [facility] Comment on above: Order Comment: Speci men Type: BLOOD SPECIMEN [facility] Address: [address] [place] [address] Performed By: #### 5 7021-8 #### [facility] CLIA [id number] [address] [place] Neutrophils (Bld) [#/Vol] 1.96 10*3/uL Normal 1.45-7.50 [facility] Comment on above: Order Comment: Speci men Type: BLOOD SPECIMEN [facility] Address: [address] [place] [address] Performed By: #### 5 7021-8 #### [facility] CLIA [id number] [address] [place] Neutrophils/100 WBC (Bld) 55.3 % Normal [facility] Comment on above: Order Comment: Speci men Type: BLOOD SPECIMEN [facility] Address: [address] [place] [address] Performed By: #### 5 7021-8 #### [facility] CLIA [id number] [address] [place] [address] [place] Nucleated RBC (Bld) [#/Vol] 10*3/uL Normal <0.01 [facility] Comment on above: Order Comment: Speci men Type: BLOOD SPECIMEN [facility] Address: [address] [place] [address] Performed By: #### 5 7021-8 #### [facility] CLIA [id number] [address] [place] [address] [place] Nucleated RBC/100 WBC (Bld) [Ratio] 0.0 /100 WBC Normal [facility] Comment on above: Order Comment: Speci men Type: BLOOD SPECIMEN [facility] Address: [address] [place] [address] Performed By: #### 5 7021-8 #### [facility] CLIA [id number] [address] [place] [address] [place] Platelet mean volume (Bld) [Entitic vol] 9.7 fL Normal 9.0-12.7 [facility] Comment on above: Order Comment: Speci men Type: BLOOD SPECIMEN [facility] Address: [address] [place] [address] Performed By: #### 5 7021-8 #### [facility] CLIA [id number] [address] [place] Platelets (Bld) [#/Vol] 73 10*3/uL Low 150-400 [facility] Comment on above: Order Comment: Speci men Type: BLOOD SPECIMEN [facility] Address: [address] [place] [address] Result Comment: No c lot detected. Performed By: #### 5 7021-8 #### [facility] CLIA [id number] [address] [place] RBC (Bld) [#/Vol] 3.01 10*6/uL Low 4.20-6.00 [facility] Comment on above: Order Comment: Speci men Type: BLOOD SPECIMEN [facility] [place] [address] Performed By: #### 5 7021-8 #### [facility] CLIA [id number] [address] [place] [id number] [place] WBC (Bld) [#/Vol] 3.54 10*3/uL Low 3.70-11.00 [facility] Comment on above: Order Comment: Speci men Type: BLOOD SPECIMEN [facility] Address: [address] [place] [id number] Performed By: #### 5 7021-8 #### [facility] CLIA [id number] [address] [place] [address] [place] [address] ABD/PEL W IVCONon 025 CT ABD/PEL W IVCON * * *Final Report* * * DATE OF EXAM: Feb 24 2025 9:38AM [facility] 0530 - CT ABD/PEL W IVCON / [...] hernia which contains ascites fluid. 4. 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 Transcribe Date/Time: Feb 24 2025 9:47A Dictated by : ALON CONTI MD This examination was interpreted and the report reviewed and electronically signed by: ALON CONTI MD on Feb 24 2025 9:56AM EST [id number] Normal [facility] Comprehensive metabolic 2000 panelon 02-24-2025 Albumin [Mass/Vol] 3.0 g/dL Low 3.9-4.9 [facility] Comment on above: Order Comment: Speci men Type: BLOOD SPECIMEN [facility] Address: [address] [place] [address] Performed By: #### 2 4323-8, 0-3, #### [facility] CLIA [id number] [address] [place] [address] [place] ALP [Catalytic activity/Vol] 262 U/L High 38-113 [facility] Comment on above: Order Comment: Speci men Type: BLOOD SPECIMEN [facility] Address: [address] [place] [address] Performed By: #### 2 4323-8, 3040-3, #### [facility] CLIA [id number] [address] [place] [address] [place] ALT [Catalytic activity/Vol] 49 U/L Normal 10-54 [facility] Comment on above: Order Comment: Speci men Type: BLOOD SPECIMEN [facility] Address: [address] [place] [address] Performed By: #### 2 4323-8, 3040-3, #### [facility] CLIA [id number] [address] [place] [address] [place] Anion gap [Moles/Vol] 9 mmol/L Normal 8-15 [facility] Comment on above: Order Comment: Speci men Type: BLOOD SPECIMEN [facility] Address: [address] [place] [address] Performed By: #### 2 4323-8, 3040-3, #### [facility] CLIA [id number] [address] [place] [address] [place] AST [Catalytic activity/Vol] 125 U/L High 14-40 [facility] Comment on above: Order Comment: Speci men Type: BLOOD SPECIMEN [facility] Address: [address] [place] [address] Performed By: #### 2 4323-8, 0-3, #### [facility] CLIA [id number] [address] [place] [address] [place] Bilirubin [Mass/Vol] 14.7 mg/dL High 0.2-1.3 [facility] Comment on above: Order Comment: Speci men Type: BLOOD SPECIMEN [facility] Address: [address] [place] [address] Performed By: #### 2 4323-8, 0-3, #### [facility] CLIA [id number] [address] [place] Calcium [Mass/Vol] 8.7 mg/dL Normal 8.5-10.2 [facility] Comment on above: Order Comment: Speci men Type: BLOOD SPECIMEN [facility] Address: [address] [place] [address] Performed By: #### 2 4323-8, 3040-3, #### [facility] CLIA [id number] [address] [place] [address] [place] Chloride [Moles/Vol] 101 mmol/L Normal 98-107 [facility] Comment on above: Order Comment: Speci men Type: BLOOD SPECIMEN [facility] Address: [address] [place] [address] Performed By: #### 2 4323-8, 3040-3, #### [facility] CLIA [id number] [address] [place] [address] [place] CO2 [Moles/Vol] 28 mmol/L Normal 22-30 [facility] Comment on above: Order Comment: Speci men Type: BLOOD SPECIMEN [facility] Address: [address] [place] [address] Performed By: #### 2 4323-8, 3040-3, #### [facility] CLIA [id number] [address] [place] [address] [place] Creatinine [Mass/Vol] 0.62 mg/dL Low 0.73-1.22 [facility] Comment on above: Order Comment: Speci men Type: BLOOD SPECIMEN [facility] Address: [address] [place] [address] Result Comment: Resu lt may be falsely decreased due to interference from icterus. Performed By: #### 2 4323-8, 0-3, #### [facility] CLIA [id number] [address] STATES OF [facility] Creatinine and Glomerular filtration rate.predicted panel (S/P/Bld) 114 mL/min/1.73m??? Normal >=60 [facility] Comment on above: Order Comment: Speci leroy Type: BLOOD SPECIMEN [facility] Address: [address] [place] [address] Result Comment: Autumn mated Glomerular Filtration Rate [...] GFR. Performed By: #### 2 4323-8, 3040-3, #### [facility] CLIA [id number] [address] [place] [address] [place] Glucose [Mass/Vol] 162 mg/dL High 74-99 [facility] Comment on above: Order Comment: Sahil harper Type: BLOOD SPECIMEN [facility]: [facility] Address: [address] [place] [address] Result Comment: The [place] Diabetes Association (ADA) provides guidance for cutoff [...] Standards of Medical Care in Diabetes 2016, [place] [employer]. Diabetes Care. 2016.39(Suppl 1). Performed By: #### 2 4323-8, 0-3, #### [facility] CLIA [id number] [address] [place] [address] [place] Potassium [Moles/Vol] 3.7 mmol/L Normal 3.7-5.1 [facility] Comment on above: Order Comment: Sahil harper Type: BLOOD SPECIMEN [facility] Address: [address] [place] [address] Performed By: #### 2 4323-8, 0-3, #### [facility] CLIA [id number] [address] [place] [address] [place] Protein [Mass/Vol] 7.4 g/dL Normal 6.3-8.0 [facility] Comment on above: Order Comment: Sahil harper Type: BLOOD SPECIMEN [facility]: [facility] Address: [address] [place] [address] Performed By: #### 2 4323-8, 0-3, #### [facility] CLIA [id number] [address] [place] [address] [place] Sodium [Moles/Vol] 138 mmol/L Normal 136-144 [facility] Comment on above: Order Comment: Speci men Type: BLOOD SPECIMEN Order[facility]: [facility] Address: [address] [place], [place] [address] Performed By: #### 2 4323-8, 3040-3, 58480-9 #### [facility] CLIA [id number] [address] [place] [address] [facility] Urea nitrogen [Mass/Vol] 3 mg/dL Low 9- [facility] Comment on above: Order Comment: Speci men Type: BLOOD SPECIMEN Order[facility]: [facility] Address: [address] [place], [place] [address] Performed By: #### 2 4323-8, 3040-3, 14349-3 #### [facility] CLIA [id number] [address] [place] [id number] [facility] ED NOTEon 02-24-2025 ED NOTE HNO ID: [id number] Author: NEERU MARQUEZ RN Service: ? Author Type: Registered Nurse Type: ED Notes Filed: 02/24/2025 11:01 Note Text: Pt verbalized d/c instructions and the need to follow up [facility] ED NOTE HNO ID: [id number] Author: NEERU MARQUEZ RN Service: ? Author Type: Registered Nurse Type: ED Notes Filed: 02/24/2025 10:55 Note Text: Pt aware scheduling is not available at this time but will call [facility] ED NOTE HNO ID: [id number] Author: NEERU MARQUEZ RN Service: ? Author Type: Registered Nurse Type: ED Notes Filed: 02/24/2025 08:20 Note Text: Pt is a daily heavy drinker with known hernia. Pt having increased pain and swelling in scrotum [facility] ED PROV NOTEon 02-24-2025 ED PROV NOTE HNO ID: [id number] Author: RAMONA JUNG MD Service: ? Author [...] he was told to come to the [facility] so that he could see a surgeon. [...] nursing note reviewed. Exam conducted with a gravity prospecting operator helper present. Constitutional: Appearance: He is well-developed. Eyes: [...] Significant elevation, no prior for comparison except 2017 when patient had elevation at 2.5. Patient [...] needs referral to the hernia team at [facility], and gave specific doctor names. Geology Faculty Member request was made to schedule patient with [...] was referred to the hernia team at [facility] due to his complicated medical conditions and need for the hernia repair. History and Record Review External record(s) reviewed: no prior records. Differential Diagnoses - Left inguinal hernia with ascites Management Management of the patient was discussed with:ent consultant Discussion with ent consultant included: Dr. Good, surgery I performed an independent interpretation of the following:imaging Imaging: My interpretation is (more content not included)... Normal [facility] Lipase SerPl-cCncon 02-25-20 25 Lipase [Catalytic activity/Vol] 41 U/L Normal 16-61 [facility] Comment on above: Order Comment: Speci men Type: BLOOD SPECIMEN [facility] [address] [place] [id number] Performed By: #### 2 5890-8, 3040-3, #### [facility] CLIA [id number] [address] Magnesium SerPl-mCncon 02-24 Magnesium [Mass/Vol] 1.8 mg/dL Normal 1.7-2.3 [facility] Comment on above: Order Comment: Sahil harper Type: BLOOD SPECIMEN Ordering Facility: [facility] Address: [address] [place] [address] Performed By: #### 2 4323-8, 3040-3, #### [facility] CLIA [id number] [address] PT panel Coag (PPP)on 2024 INR Coag (PPP) [Relative time] 1.9 {INR} High 0.9-1.3 [facility] Comment on above: Order Comment: Sahil harper Type: BLOOD SPECIMEN Ordering [facility]: [facility] Address: [address] [place] [address] Result Comment: Erum min K Antagonist (VKA) Therapeutic Range: INR 2 to 3 (Target INR of 2.5) Note: For patients treated with VKA drugs, such as warfarin, the [employer] 2012 Guideline recommends [...] to 3.5 (target INR of 3). Alpa GH, et al. Chest 2012, 141:7S-47S Dario RA et al. [facility] 2017, 70: 252-289 Performed By: #### 3 4528-0, 15752-3 #### [facility] CLIA [id number] [address] [place] [address] [place] PT Coag (PPP) [Time] 20.1 s High 9.7-13.0 [facility] Comment on above: Order Comment: Speci men Type: BLOOD SPECIMEN Ordering Facility: [facility] Address: [address] [place], [place] [address] Performed By: #### 3 4528-0, 47355-7 #### [facility] CLIA [id number] [address] [place] [address] [place] [facility] aPTT PPPon 02-24-2025 aPTT Coag (PPP) [Time] 40.7 s High 23.0-32.4 [facility] Comment on above: Order Comment: Speci men Type: BLOOD SPECIMEN Ordering Facility: [facility] Address: [address] [place] [address] Performed By: #### 3 4528-0, 98467-6 #### [facility] CLIA [id number] [address] [place] [address] [facility] Surgery Visit Reporton 12-23 Surgery Visit Report [facility] [address] [facility] [facility] [place] [address] OFFICE VISIT Date of Service: 12/23/24 MR#: [id number] Acct: [id number] Name: ARYAN VALLE Rep #: [id number] : 1970 Provider: Dr. Huber james MD Age/Sex: 54/M Location: [facility] Status: Signed Intake Vital Signs 12/16/24 09:04 [...] moles Mus (more content not included)... Normal [facility] Absolute lymphocyte countOrd ered By: Tana Farmer on 12-16-2024 Lymphocytes Auto (Unsp spec) [#/Vol] 1.01 10*3/uL 0.83-4.51 [facility] Absolute neutrophil countOrd ered By: Tana Farmer on 12-16-2024 Neutrophils (Bld) [#/Vol] 2.4 10*3/uL 2.0-7.7 [facility] Albumin to globulin ratioOrd ered By: Tana Farmer on 12-16-2024 Albumin/Globulin [Mass ratio] 0.5 {ratio} Low 0.9-2.4 [facility] Automated lymphocyte count a s percentage of total leukocytesOrdered By: Tana Farmer on 12-16-2024 Lymphocytes/100 WBC Auto (Unsp spec) 25.1 % 19-41 [facility] Basophil percentageOrdered B y: Tana Farmer on 12-16-2024 Basophils/100 WBC (Bld) 1.2 % High 0-1 [facility] Bilirubin, totalOrdered By: Tana Farmer on 12-16-2024 Bilirubin [Mass/Vol] 9.00 mg/dL High 0.20-1.00 [facility] Comment on above: For patients on eltr ombopag therapy, use of Dimension [place] TBIL is not recommended. Blood urea nitrogen (BUN)/cr eatinine ratioOrdered By: Tana Farmer on 12-16-2024 Urea nitrogen/Creatinine [Mass ratio] 4.2 mg/mg Low 10-20 [facility] CBC W/Diff, Automatedon 11-24 Absolute Lymph 1.01 X10 3/uL Normal 0.83-4.51 [facility] Comment on above: Performed By: #### L 100.0100, L501.9520, L500.4050 ####[facility] [address] [place], [address] Absolute Neut 2.4 X10 3/uL Normal 2.0-7.7 [facility] Comment on above: Performed By: #### L 100.0100, L501.9520, L500.4050 ####[facility] [address] [place], [address] Basophils/100 WBC (Bld) 1.2 % High 0-1 [facility] Comment on above: Performed By: #### L 100.0100, L501.9520, L500.4050 ####[facility] [address] [place], [address] Eosinophils/100 WBC (Bld) 3.7 % Normal 0-5 [facility] Comment on above: Performed By: #### L 100.0100, L501.9520, L500.4050 ####[facility] [address] [place], [address] Erythrocyte distribution width (RBC) [Ratio] 14.7 % High 11.6-14.6 [facility] Comment on above: Performed By: #### L 100.0100, L501.9520, L500.4050 ####[facility] [address] [place], [address] Hematocrit (Bld) [Volume fraction] 36.6 % Low 40-54 [facility] Comment on above: Performed By: #### L 100.0100, L501.9520, L500.4050 ####[facility] [address] [place], [address] Hemoglobin (Bld) [Mass/Vol] 12.5 g/dL Low 13.0-16.5 [facility] Comment on above: Performed By: #### L 100.0100, L501.9520, L500.4050 ####[facility] [address] [place], [address] IG% 0.200 Normal 0.0-0.9 [facility] Comment on above: Result Comment: IG% - Immature Granulocytes (promyelocytes, myelocytes and metamyelocytes) > 1% indicates that a LEFT SHIFT is Present. Performed By: #### L 100.0100, L501.9520, L500.4050 ####[facility] [address] [place], [address] Lymphocytes/100 WBC (Bld) 25.1 % Normal 19-41 [facility] Comment on above: Performed By: #### L 100.0100, L501.9520, L500.4050 ####[facility] [address] [place], [address] MCH (RBC) [Entitic mass] 36.4 pg High 27.0-32.0 [facility] Comment on above: Performed By: #### L 100.0100, L501.9520, L500.4050 ####[facility] [address] [place], [address] MCHC (RBC) [Mass/Vol] 34.2 g/dL Normal 32-36 [facility] Comment on above: Performed By: #### L 100.0100, L501.9520, L500.4050 ####[facility] [address] [place], [address] MCV (RBC) [Entitic vol] 106.7 fL High 80-94 [facility] Comment on above: Performed By: #### L 100.0100, L501.9520, L500.4050 ####[facility] [address] [place], [address] Monocytes/100 WBC (Bld) 11.2 % High 0-10 [facility] Comment on above: Performed By: #### L 100.0100, L501.9520, L500.4050 ####[facility] [address] [place], [address] Neutrophils/100 WBC (Bld) 58.6 % Normal 47-70 [facility] Comment on above: Performed By: #### L 100.0100, L501.9520, L500.4050 ####[facility] [address] [place], [address] Nucleated RBC (Bld) [#/Vol] 0 10*3/uL Normal 0-5 [facility] Comment on above: Performed By: #### L 100.0100, L501.9520, L500.4050 ####[facility] [address] [place], [address] Platelet mean volume (Bld) [Entitic vol] 10.5 fL Normal 6.2-12.0 [facility] Comment on above: Performed By: #### L 100.0100, L501.9520, L500.4050 ####[facility] [address] [place], [address] Platelets (Bld) [#/Vol] 91 10*3/uL Low 150-450 [facility] Comment on above: Performed By: #### L 100.0100, L501.9520, L500.4050 ####[facility] [address] [place], [address] RBC (Bld) [#/Vol] 3.43 10*6/uL Low 4.6-6.2 [facility] Comment on above: Performed By: #### L 100.0100, L501.9520, L500.4050 ####[facility] [address] [place], [address] RDW SD 58.6 fl High 35.1-43.9 [facility] Comment on above: Performed By: #### L 100.0100, L501.9520, L500.4050 ####[facility] [address] [place], [address] WBC (Bld) [#/Vol] 4.0 10*3/uL Low 4.4-11.0 [facility] Comment on above: Performed By: #### L 100.0100, L501.9520, L500.4050 ####[facility] [address] [place], [address] Carbon dioxide measurementOr dered By: Tana Farmer on 12-16-2024 CO2 [Moles/Vol] 28.0 mmol/L 21.0-32.0 [facility] Chloride measurementOrdered By: Tana Farmer on 12-16-2024 Chloride [Moles/Vol] 104 mmol/L 98-107 [facility] Comprehensive Metabolic Prof ilon 12-16-2024 Albumin [Mass/Vol] 2.4 g/dL Low 3.2-5.0 [facility] Comment on above: Performed By: #### L 100.0100, L501.9520, L500.4050 ####[facility] [address] [place], [address] Albumin/Globulin [Mass ratio] 0.5 {ratio} Low 0.9-2.4 [facility] Comment on above: Performed By: #### L 100.0100, L501.9520, L500.4050 ####[facility] [address] [place], [address] ALK P 399 U/L High 45-117 [facility] Comment on above: Performed By: #### L 100.0100, L501.9520, L500.4050 ####[facility] [address] [place], [address] ALT [Catalytic activity/Vol] 43 U/L Normal 16-61 [facility] Comment on above: Performed By: #### L 100.0100, L501.9520, L500.4050 ####[facility] [address] [place], [address] AST [Catalytic activity/Vol] 86 U/L High 15-37 [facility] Comment on above: Performed By: #### L 100.0100, L501.9520, L500.4050 ####[facility] [address] [place], [address] Bilirubin [Mass/Vol] 9.00 mg/dL High 0.20-1.00 [facility] Comment on above: Result Comment: For patients on eltrombopag therapy, use of [place] TBIL is not recommended. Performed By: #### L 100.0100, L501.9520, L500.4050 ####[facility] [address] [place], [address] BUN/CRE 4.2 RATIO Low 10-20 [facility] Comment on above: Performed By: #### L 100.0100, L501.9520, L500.4050 ####[facility] [address] [place], [address] CA,Total 8.7 mg/dL Normal 8.5-10.1 [facility] Comment on above: Performed By: #### L 100.0100, L501.9520, L500.4050 ####[facility] [address] [place], [address] Chloride [Moles/Vol] 104 mmol/L Normal 98-107 [facility] Comment on above: Performed By: #### L 100.0100, L501.9520, L500.4050 ####[facility] [address] [place], [address] CO2 [Moles/Vol] 28.0 mmol/L Normal 21.0-32.0 [facility] Comment on above: Performed By: #### L 100.0100, L501.9520, L500.4050 ####[facility] [address] [place], [address] Creatinine [Mass/Vol] 0.72 mg/dL Normal 0.70-1.30 [facility] Comment on above: Result Comment: The validity of the calculated GFR GFRAA in patients over 70 years has not been determined. Clinical correlation is essential. Performed By: #### L 100.0100, L501.9520, L500.4050 ####[facility] [address] [place], [address] EST GFR - AA 146 mL/min Normal >60 [facility] Comment on above: Result Comment: Afri can [place] GFR Calc Performed By: #### L 100.0100, L501.9520, L500.4050 ####[facility] [address] [place], [address] GAP 5 Normal 5-15 [facility] Comment on above: Performed By: #### L 100.0100, L501.9520, L500.4050 ####[facility] [address] [place], [address] GFR/1.73 sq M.predicted among non-blacks MDRD (S/P/Bld) [Vol rate/Area] 121 mL/min/{1.73_m2} Normal >60 [facility] Comment on above: Result Comment: Non- GFR Calc Performed By: #### L 100.0100, L501.9520, L500.4050 ####[facility] [address] [place], [address] Globulin (S) [Mass/Vol] 4.5 g/dL High 2.2-4.2 [facility] Comment on above: Performed By: #### L 100.0100, L501.9520, L500.4050 ####[facility] [address] [place], [address] Glucose [Mass/Vol] 91 mg/dL Normal 74-106 [facility] Comment on above: Performed By: #### L 100.0100, L501.9520, L500.4050 ####[facility] [address] [place], [address] Potassium [Moles/Vol] 3.7 mmol/L Normal 3.5-5.1 [facility] Comment on above: Performed By: #### L 100.0100, L501.9520, L500.4050 ####[facility] [address] [place], [address] Sodium [Moles/Vol] 137 mmol/L Normal 136-145 [facility] Comment on above: Performed By: #### L 100.0100, L501.9520, L500.4050 ####[facility] [address] [place], [address] T PROT 6.9 g/dL Normal 6.4-8.2 [facility] Comment on above: Performed By: #### L 100.0100, L501.9520, L500.4050 ####[facility] [address] [place], [address] Urea nitrogen [Mass/Vol] 3 mg/dL Low 7-18 [facility] Comment on above: Performed By: #### L 100.0100, L501.9520, L500.4050 ####[facility] [address] [place], [address] Eosinophil percentageOrdered By: Tana Farmer on 12-16-2024 Eosinophils/100 WBC (Bld) 3.7 % 0-5 [facility] Erythrocyte distribution wid th ratioOrdered By: Tana Farmer on 12-16-2024 Erythrocyte distribution width (RBC) [Ratio] 14.7 % High 11.6-14.6 [facility] Erythrocyte distribution wid th standard deviationOrdered By: Tana Farmer on 12-16-2024 Erythrocyte distribution width (RBC) [Ratio] 58.6 fl High 35.1-43.9 [facility] Glomerular filtration rate ( GFR) estimationOrdered By: Tana Farmer on 12-16-2024 GFR/1.73 sq M.predicted among non-blacks MDRD (S/P/Bld) [Vol rate/Area] 121 mL/min/{1.73_m2} >60 [facility] Comment on above: Non- GFR Calc Glucose measurementOrdered B y: Tana Farmer on 12-16-2024 Glucose [Mass/Vol] 91 mg/dL 74-106 [facility] Hematocrit Auto (Bld) [Volum e fraction]Ordered By: Tana Farmer on 12-16-2024 Hematocrit (Bld) [Volume fraction] 36.6 % Low 40-54 [facility] Hemoglobin measurementOrdere d By: Tana Farmer on 12-16-2024 Hemoglobin (Bld) [Mass/Vol] 12.5 g/dL Low 13.0-16.5 [facility] Immature granulocytes/100 WB C Auto (Bld)Ordered By: Tana Farmer on 12-16-2024 Immature granulocytes/100 WBC (Bld) 0.200 % 0.0-0.9 [facility] Comment on above: IG% - Immature Granu locytes (promyelocytes, myelocytes and metamyelocytes) > 1% indicates that a LEFT SHIFT is Present. Internal Medicine Office Vis iton 12-16-2024 Internal Medicine Office Visit [facility] [address] [place], [place] [address] OFFICE VISIT Date of Service: 12/16/24 MR#: [id number] Acct: [id number] Name: ARYAN VALLE Rep #: [id number] : 1970 Provider: Dr. Tana lobo MD Age/Sex: 54/M Location: [facility] Status: Signed Intake Vital Signs 06/24/24 10:19 [...] 4 M FU Chief Complaint: 4m fu Special Event Assistant Required: No Accompanied by: Self Is patient [...] constipation, cramp (more content not included)... Normal [facility] Laboratory - Chemistry and C hemistry - challengeOrdered By: Tana Farmer on 12-16-2024 AST [Catalytic activity/Vol] 86 U/L High 15-37 [facility] MCV (mean corpuscular volume ) determinationOrdered By: Tana Farmer on 12-16-2024 MCV (RBC) [Entitic vol] 106.7 fL High 80-94 [facility] Mean corpuscular hemoglobin (MCH) determinationOrdered By: Tana Farmer on 12-16-2024 MCH (RBC) [Entitic mass] 36.4 pg High 27.0-32.0 [facility] Mean corpuscular hemoglobin concentration (MCHC) determinationOrdered By: Tana Farmer on 12-16-2024 MCHC (RBC) [Mass/Vol] 34.2 g/dL 32-36 [facility] Mean platelet volume determi nationOrdered By: Tana Farmer on 12-16-2024 Platelet mean volume (Bld) [Entitic vol] 10.5 fL 6.2-12.0 [facility] Monocyte percentageOrdered B y: Tana Farmer on 12-16-2024 Monocytes/100 WBC (Bld) 11.2 % High 0-10 [facility] Neutrophil percentageOrdered By: Tana Farmer on 12-16-2024 Neutrophils/100 WBC (Bld) 58.6 % 47-70 [facility] Nucleated red blood cell per centageOrdered By: Tana Farmer on 12-16-2024 Nucleated RBC/100 WBC (Bld) [Ratio] 0 % 0-5 [facility] Platelet countOrdered By: Fifi Farmer on 12-16-2024 Platelets (Bld) [#/Vol] 91 10*3/uL Low 150-450 [facility] Potassium measurementOrdered By: Tana Farmer on 12-16-2024 Potassium [Moles/Vol] 3.7 mmol/L 3.5-5.1 [facility] RBC Auto (Bld) [#/Vol]Ordere d By: Tana Farmer on 12-16-2024 RBC (Bld) [#/Vol] 3.43 10*6/uL Low 4.6-6.2 [facility] Serum anion gap measurementO rdered By: Tana Farmer on 12-16-2024 Anion gap [Moles/Vol] 5 mmol/L 5-15 [facility] Serum globulin measurementOr dered By: Tana Farmer on 12-16-2024 Globulin (S) [Mass/Vol] 4.5 g/dL High 2.2-4.2 [facility] Serum or plasma alanine tony otransferase (ALT) measurementOrdered By: Tana Farmer on 12-16-2024 ALT [Catalytic activity/Vol] 43 U/L 16-61 [facility] Serum or plasma albumin nadja urement (mass/volume)Ordered By: Fifilorrainephyliciajames Hutchinssukhdeepeliana on 12-16-2024 Albumin [Mass/Vol] 2.4 g/dL Low 3.2-5.0 [facility] Serum or plasma alkaline jermaine sphatase measurementOrdered By: [facility] Hutchinssukhdeepeliana on 12-16-2024 ALP [Catalytic activity/Vol] 399 U/L High 45-117 [facility] Serum or plasma calcium nadja urement (mass/volume)Ordered By: Tana Hutchinssukhdeepeliana on 12-16-2024 Calcium [Mass/Vol] 8.7 mg/dL 8.5-10.1 [facility] Serum or plasma creatinine m easurement (mass/volume)Ordered By: Tana Hutchinssukhdeepeliana on 12-16-2024 Creatinine [Mass/Vol] 0.72 mg/dL 0.70-1.30 [facility] Comment on above: The validity of the calculated GFR & GFRAA in patients over 70 years has not been determined. Clinical correlation is essential. Serum or plasma thyroid stim ulating hormone (TSH) measurement (units/volume)Ordered By: Fifiservando Farmer on 12-16-2024 TSH Qn 6.180 uIU/mL High 0.358-3.740 [facility] Serum or plasma urea nitroge n measurement (mass/volume)Ordered By: Tana Farmer on 12-16-2024 Urea nitrogen [Mass/Vol] 3 mg/dL Low 7-18 [facility] Sodium levelOrdered By: Fifilorraine olamide Guerosukhdeepeliana on 12-16-2024 Sodium [Moles/Vol] 137 mmol/L 136-145 [facility] Thyroid Stim Hormone (TSH)on 12-16-2024 TSH 6.180 uIU/mL High 0.358-3.740 [facility] Comment on above: Performed By: #### L 100.0100, L501.4718, L500.6124 ####[facility] [address] [place], [place], [address] Total proteinOrdered By: Mack Farmer on 12-16-2024 Protein [Mass/Vol] 6.9 g/dL 6.4-8.2 [facility] White blood cell (WBC) count Ordered By: Tana Farmer on 12-16-2024 WBC (Bld) [#/Vol] 4.0 10*3/uL Low 4.4-11.0 [facility] Chest 1 View (Portable)on Chest 1 View (Portable) [facility] Imaging Services [address] [place], [place] [address] Chest 1 View (Portable) MR#: [id number] Acct: [id number] Name: ARYAN VALLE Rep #: [id number] : 1970 M 54 From: Chaya Ferrari MD PCP: Dr. Tana Farmer MD Status: REG ER Study: Chest 1 View (Portable) Date of Exam: 11/24/24 Exam# [id number] Ordering Dr: Caridad Go DO [id number] EXAM: XR CHEST, 1 VIEW CLINICAL INDICATION: [...] Caridad Go DO; Dr. Tana Farmer MD [employer]: Signed Normal [facility] Emergency Department Summary on 11-24-2024 Emergency Department Summary [facility] Medical Records Department [address] [place] [address] Emergency Department Summary 11/24/24 MR#: [id number] Acct: [id number] Name: ARYAN VALLE Rep #: [id number] : 1970 54 From: Caridad Go DO [...] complaints or concerns reported at this time. [facility] Medical History Dark urine Elevated CA 19-9 [...] Air Positiv (more content not included)... Normal [facility] Internal Medicine Office Vis itomarcela 10-26-2024 Internal Medicine Office Visit [facility] [address] [place] [address] [place] [address] OFFICE VISIT Date of Service: 10/26/24 MR#: [id number] Acct: [id number] Name: ARYAN VALLE Rep #: [id number] : 1970 Provider: MEGHNA Bartlett Age/Sex: 54/M Location: [facility] Status: Signed Intake Vital Signs 10/17/24 17:18 [...] GROIN Chief Complaint: bump on groin area Special Event Assistant Required: No Accompanied by: Self Is patient [...] Light sensitivit (more content not included)... Normal [facility] BNP,B-Type NATRIURETIC PEPTI Robert 10-17-2024 Natriuretic peptide B (Bld) [Mass/Vol] 54.6 pg/mL Normal 0-100 [facility] Comment on above: Performed By: #### L 793.6908 #### [facility] Laboratory [address] [place], [place], [id number] Basic Metabolic Profile (BMP )on 10-17-2024 BUN/CRE 5.7 RATIO Low 10-20 [facility] Comment on above: Performed By: #### L 500.3400, L100.0100, L500.2500 #### [facility] Laboratory [address] [place], [address] CA,Total 8.5 mg/dL Normal 8.5-10.1 [facility] Comment on above: Performed By: #### L 500.3400, L100.0100, L500.2500 #### [facility] Laboratory [address] [place], [address] Chloride [Moles/Vol] 107 mmol/L Normal 98-107 [facility] Comment on above: Performed By: #### L 500.3400, L100.0100, L500.2500 #### [facility] Laboratory [address] [place], [address] CO2 [Moles/Vol] 29.0 mmol/L Normal 21.0-32.0 [facility] Comment on above: Performed By: #### L 500.3400, L100.0100, L500.2500 #### [facility] Laboratory [address] [place], [address] Creatinine [Mass/Vol] 0.70 mg/dL Normal 0.70-1.30 [facility] Comment on above: Result Comment: The validity of the calculated GFR GFRAA in patients over 70 years has not been determined. Clinical correlation is essential. Performed By: #### L 500.3400, L100.0100, L500.2500 #### [facility] Laboratory [address] [place], [address] ECRCL 149.08 ml/min Normal [facility] Comment on above: Performed By: #### L 500.3400, L100.0100, L500.2500 #### [facility] Laboratory [address] [place], [address] EST GFR - AA 151 mL/min Normal >60 [facility] Comment on above: Result Comment: Afri can Lithuanian GFR Calc Performed By: #### L 500.3400, L100.0100, L500.2500 #### [facility] Laboratory [address] [place], [address] GAP 6 Normal 5-15 [facility] Comment on above: Performed By: #### L 500.3400, L100.0100, L500.2500 #### [facility] [address] [place], [address] GFR/1.73 sq M.predicted among non-blacks MDRD (S/P/Bld) [Vol rate/Area] 125 mL/min/{1.73_m2} Normal >60 [facility] Comment on above: Result Comment: Non- GFR Calc Performed By: #### L 500.3400, L100.0100, L500.2500 #### [facility] [address] [place], [address] Glucose [Mass/Vol] 125 mg/dL High 74-106 [facility] Comment on above: Result Comment: Fast ing Glucose result from 100 to 125 mg/dL suggests IMPAIRED HOMEOSTASIS per A.D.A. criteria. Performed By: #### L 500.3400, L100.0100, L500.2500 #### [facility] [address] [place], [address] Potassium [Moles/Vol] 3.5 mmol/L Normal 3.5-5.1 [facility] Comment on above: Performed By: #### L 500.3400, L100.0100, L500.2500 #### [facility] [address] [place], [address] Sodium [Moles/Vol] 142 mmol/L Normal 136-145 [facility] Comment on above: Performed By: #### L 500.3400, L100.0100, L500.2500 #### [facility] [address] [place], [address] Urea nitrogen [Mass/Vol] 4 mg/dL Low 7-18 [facility] Comment on above: Performed By: #### L 500.3400, L100.0100, L500.2500 #### [facility] [address], [address] CBC W/Diff, Automatedon 11- Anisocytosis Ql (Bld) 1+ Normal [facility] Comment on above: Performed By: #### L 500.3400, L100.0100, L500.2500 #### [facility] [address] [place], [address] MACROCYTOSIS 1+ Normal [facility] Comment on above: Performed By: #### L 500.3400, L100.0100, L500.2500 #### [facility] [address] [place], [address] PLT EST MOD DEC Normal ADEQ [facility] Comment on above: Performed By: #### L 500.3400, L100.0100, L500.2500 #### [facility] [address] [place], [address] RED CELL MORPH N CHROM Normal NORM C C [facility] Comment on above: Performed By: #### L 500.3400, L100.0100, L500.2500 #### [facility] [address] [place], [address] Emergency Department Summary on 10-17-2024 Emergency Department Summary [facility] Medical Records Department [address] [place] [address] Emergency Department Summary 10/17/24 MR#: [id number] Acct: [id number] Name: ARYAN VALLE Rep #: [id number] : 1970 54 From: Rakesh Loja MD [...] stopped wearing them because they were uncomfortable. [facility] Medical History Dark urine Elevated CA 19-9 [...] Psychiatric Psychiatr (more content not included)... Normal [facility] Liver Profileon 10-17-2024 Albumin [Mass/Vol] 2.6 g/dL Low 3.2-5.0 [facility] Comment on above: Performed By: #### L 500.3400, L100.0100, L500.2500 #### [facility] [address] [place], [address] ALK P 241 U/L High 45-117 [facility] Comment on above: Performed By: #### L 500.3400, L100.0100, L500.2500 #### [facility] [address] [place], [address] ALT [Catalytic activity/Vol] 48 U/L Normal 16-61 [facility] Comment on above: Performed By: #### L 500.3400, L100.0100, L500.2500 #### [facility] [address] [place], [address] AST [Catalytic activity/Vol] 126 U/L High 15-37 [facility] Comment on above: Performed By: #### L 500.3400, L100.0100, L500.2500 #### [facility] [address] [place], [address] Bilirubin [Mass/Vol] 7.30 mg/dL High 0.20-1.00 [facility] Comment on above: Result Comment: For patients on eltrombopag therapy, use of Dimension [place] TBIL is not recommended. Performed By: #### L 500.3400, L100.0100, L500.2500 #### [facility] [address] [place], [address] Bilirubin.direct [Mass/Vol] 3.76 mg/dL High 0.00-0.30 [facility] Comment on above: Performed By: #### L 500.3400, L100.0100, L500.2500 #### [facility] [address] [place], [address] Globulin (S) [Mass/Vol] 4.3 g/dL High 2.2-4.2 [facility] Comment on above: Performed By: #### L 500.3400, L100.0100, L500.2500 #### [facility] [address] [place], [address] T PROT 6.9 g/dL Normal 6.4-8.2 [facility] Comment on above: Performed By: #### L 500.3400, L100.0100, L500.2500 #### [facility] [address] [place], [address] Prothrombin Time w/INRon INR Normal [facility] Comment on above: Result Comment: Ronen otto via OM: Ordered Performed By: #### L 300.3900 ####[facility] [address] [place], [address] PROTIME Normal 11.7-14.9 [facility] Comment on above: Result Comment: Ronen otto via OM: Ordered Performed By: #### L 300.3900 ####[facility] [address] [place], [address] Urinalysis, Completeon 10-17 BACTERIA RARE Normal None Seen [facility] Comment on above: Order Comment: CLEAN CATCH Performed By: #### L 400.0001 ####[facility] [address] [place], [address] RBC 0-5 SEEN Normal 0-5 [facility] Comment on above: Order Comment: CLEAN CATCH Performed By: #### L 400.0001 ####[facility] [address] [place], [address] WBC 0-5 SEEN Normal 0-5 [facility] Comment on above: Order Comment: CLEAN CATCH Performed By: #### L 400.0001 ####[facility] [address] [place], [address] EPI,SQUAMOUS 0 SEEN Normal 0-5 [facility] Comment on above: Order Comment: CLEAN CATCH Performed By: #### L 400.0001 ####[facility] [address] [place], [address] Mucus Ql (Urine sed) 0 SEEN Normal [facility] Comment on above: Order Comment: CLEAN CATCH Performed By: #### L 400.0001 ####[facility] [address] [place], [address] Abdomen/Pelvis without Conto n 09-20-2024 Abdomen/Pelvis without Cont [facility] Imaging Services [address] [place] [address] Abdomen/Pelvis without Cont MR#: [id number] Acct: [id number] Name: ARYAN VALLE Rep #: [id number] : 1970 M 54 From: Jeremías wilhelm MD PCP: Dr. Tana Farmer MD Status: REG ER Study: Abdomen/Pelvis without Cont Date of Exam: 08/24 08/16 Exam# [id number] Ordering Dr: Dung Christine DO [id number] EXAM: CT ABDOMEN AND PELVIS WITHOUT INTRAVENOUS [...] CC: Dr. Tana Farmer MD; Dr. Dung Christine, DO [employer]: Signed Normal [facility] Basic Metabolic Profile (BMP )on 09-20-2024 BUN/CRE 6.0 RATIO Low - [facility] Comment on above: Performed By: #### L 300.3900, L500.2500, L501.2450, L300.4310 ####[facility] [address] [place], [address] CA,Total 9.1 mg/dL Normal 8.5-10.1 [facility] Comment on above: Performed By: #### L 300.3900, L500.2500, L501.2450, L300.4310 ####[facility] [address] [place], [address] Chloride [Moles/Vol] 105 mmol/L Normal 98-107 [facility] Comment on above: Performed By: #### L 300.3900, L500.2500, L501.2450, L300.4310 ####[facility] [address] [place], [address] CO2 [Moles/Vol] 26.0 mmol/L Normal 21.0-32.0 [facility] Comment on above: Performed By: #### L 300.3900, L500.2500, L501.2450, L300.4310 ####[facility] [address] [place], [address] Creatinine [Mass/Vol] 0.66 mg/dL Low 0.70-1.30 [facility] Comment on above: Result Comment: The validity of the calculated GFR GFRAA in patients over 70 years has not been determined. Clinical correlation is essential. Performed By: #### L 300.3900, L500.2500, L501.2450, L300.4310 ####[facility] [address] [place], [address] ECRCL 156.03 ml/min Normal [facility] Comment on above: Performed By: #### L 300.3900, L500.2500, L501.2450, L300.4310 ####[facility] [address] [place], [address] EST GFR - AA 161 mL/min Normal >60 [facility] Comment on above: Result Comment: Afri can Lithuanian GFR Calc Performed By: #### L 300.3900, L500.2500, L501.2450, L300.4310 ####[facility] [address] [place], [address] GAP 6 Normal 5-15 [facility] Comment on above: Performed By: #### L 300.3900, L500.2500, L501.2450, L300.4310 ####[facility] [address] [place], [address] GFR/1.73 sq M.predicted among non-blacks MDRD (S/P/Bld) [Vol rate/Area] 133 mL/min/{1.73_m2} Normal >60 [facility] Comment on above: Result Comment: Non- GFR Calc Performed By: #### L 300.3900, L500.2500, L501.2450, L300.4310 ####[facility] [address] [place], [address] Glucose [Mass/Vol] 107 mg/dL High 74-106 [facility] Comment on above: Result Comment: Fast ing Glucose result from 100 to 125 mg/dL suggests IMPAIRED HOMEOSTASIS per A.D.A. criteria. Performed By: #### L 300.3900, L500.2500, L501.2450, L300.4310 ####[facility] [address] [place], [address] Potassium [Moles/Vol] 3.9 mmol/L Normal 3.5-5.1 [facility] Comment on above: Performed By: #### L 300.3900, L500.2500, L501.2450, L300.4310 ####[facility] [address] [place], [address] Sodium [Moles/Vol] 137 mmol/L Normal 136-145 [facility] Comment on above: Performed By: #### L 300.3900, L500.2500, L501.2450, L300.4310 ####[facility] [address] [place], [address] Urea nitrogen [Mass/Vol] 4 mg/dL Low 7-18 [facility] Comment on above: Performed By: #### L 300.3900, L500.2500, L501.2450, L300.4310 ####[facility] [address] [place], [address] CBC W/Diff, Automatedon 10-2 Absolute Lymph 0.81 X10 3/uL Low 0.83-4.51 [facility] Comment on above: Performed By: #### L 100.0100 ####[facility] [address] [place], [address] Absolute Neut 2.3 X10 3/uL Normal 2.0-7.7 [facility] Comment on above: Performed By: #### L 100.0100 ####[facility] [address] [place], [address] Basophils/100 WBC (Bld) 0.8 % Normal 0-1 [facility] Comment on above: Performed By: #### L 100.0100 ####[facility] [address] [place], [address] Eosinophils/100 WBC (Bld) 1.9 % Normal 0-5 [facility] Comment on above: Performed By: #### L 100.0100 ####[facility] [address] [place], [address] Erythrocyte distribution width (RBC) [Ratio] 14.2 % Normal 11.6-14.6 [facility] Comment on above: Performed By: #### L 100.0100 ####[facility] [address] [place], [address] Hematocrit (Bld) [Volume fraction] 35.7 % Low 40-54 [facility] Comment on above: Performed By: #### L 100.0100 ####[facility] [address] [place], [address] Hemoglobin (Bld) [Mass/Vol] 12.7 g/dL Low 13.0-16.5 [facility] Comment on above: Performed By: #### L 100.0100 ####[facility] [address] [place], [address] IG% 0.300 Normal 0.0-0.9 [facility] Comment on above: Result Comment: IG% - Immature Granulocytes (promyelocytes, myelocytes and metamyelocytes) > 1% indicates that a LEFT SHIFT is Present. Performed By: #### L 100.0100 ####[facility] [address] [place], [address] Lymphocytes/100 WBC (Bld) 22.5 % Normal 19-41 [facility] Comment on above: Performed By: #### L 100.0100 ####[facility] [address] [place], [address] MCH (RBC) [Entitic mass] 36.6 pg High 27.0-32.0 [facility] Comment on above: Performed By: #### L 100.0100 ####[facility] [address] [place], [address] MCHC (RBC) [Mass/Vol] 35.6 g/dL Normal 32-36 [facility] Comment on above: Performed By: #### L 100.0100 ####[facility] [address] [place], [address] MCV (RBC) [Entitic vol] 102.9 fL High 80-94 [facility] Comment on above: Performed By: #### L 100.0100 ####[facility] [address] [place], [address] Monocytes/100 WBC (Bld) 11.1 % High 0-10 [facility] Comment on above: Performed By: #### L 100.0100 ####[facility] [address] [place], [address] Neutrophils/100 WBC (Bld) 63.4 % Normal 47-70 [facility] Comment on above: Performed By: #### L 100.0100 ####[facility] [address] [place], [address] Nucleated RBC (Bld) [#/Vol] 0 10*3/uL Normal 0-5 [facility] Comment on above: Performed By: #### L 100.0100 ####[facility] [address] [place], [address] Platelet mean volume (Bld) [Entitic vol] 11.0 fL Normal 6.2-12.0 [facility] Comment on above: Performed By: #### L 100.0100 ####[facility] [address] [place], [address] Platelets (Bld) [#/Vol] 76 10*3/uL Low 150-450 [facility] Comment on above: Performed By: #### L 100.0100 ####[facility] [address] [place], [address] RBC (Bld) [#/Vol] 3.47 10*6/uL Low 4.6-6.2 [facility] Comment on above: Performed By: #### L 100.0100 ####[facility] [address] [place], [address] RDW SD 53.9 fl High 35.1-43.9 [facility] Comment on above: Performed By: #### L 100.0100 ####[facility] [address] [place], [address] WBC (Bld) [#/Vol] 3.6 10*3/uL Low 4.4-11.0 [facility] Comment on above: Performed By: #### L 100.0100 ####[facility] [address] [place], [address] [facility] 09-20-2024 [facility] Office Visit (UCWSTR ) -------- VALLE,ARYAN Warren ([id number]) 1970 M Date Time Provider Department 09/20/24 10:45 AM CHRISTIAN GUERRERO [facility] During your visit today, we recorded the following information about you: Temperature Pulse Respiration Blood pressure 97.7 degrees 77/minute 20/minute 117/77 Weight 100 kg Christian Guerrero APRN.BROADCASTING EQUIPMENT MECHANIC 09/20/2024 11:40 AM Signed Subjective HPI HPI Aryan Woodsong is a 54 year old male who presents today for CC of left groin pain rates 08/02. This started 1.5 weeks ago/severe now. .Patient [...] pain I will refer to DOMINIQUE Guerrero APRN.BROADCASTING EQUIPMENT MECHANIC Allergies As of Date: 09/20/2024 (No Known [...] mg ca (more content not included)... Normal [facility] Emergency Department Summary on 09-20-2024 Emergency Department Summary [facility] Medical Records Department [address] [place] [address] Emergency Department Summary 09/20/24 MR#: [id number] Acct: [id number] Name: ARYAN VALLE YOLIS Rep #: [id number] : 1970 54 From: Dung Christine DO PCP: Dr. Tana Farmer MD Status:REG ER Location: ED HPI History of Present Illness Chief Complaint: Male [...] or hematuria. Patient denies any urinary frequency. [facility] Medical History Dark urine Elevated CA 19-9 [...] Room Air (more content not included)... Normal [facility] Lipaseon 09-20-2024 Lipase [Catalytic activity/Vol] 63 U/L Normal 13-75 [facility] Comment on above: Result Comment: Plea se note: LIPASE revised reference range effective 23. New Lipase methodology. Expected to produce lower values than the previous assay method. NEW Reference Range: 13 - 75 U/L Performed By: #### L 300.3900, L500.2500, L501.2450, L300.4310 ####[facility] [address] [place], [address] Partial Thromboplast Timeon 09-20-2024 aPTT Coag (Bld) [Time] 42.7 s High 24.1-36.2 [facility] Comment on above: Performed By: #### L 300.3900, L500.2500, L501.2450, L300.4310 ####[facility] [address] [place], [address] Prothrombin Time w/INRon INR Coag (PPP) [Relative time] 1.7 {INR} Normal [facility] Comment on above: Performed By: #### L 300.3900, L500.2500, L501.2450, L300.4310 ####[facility] [address] [place], [address] PT Coag (PPP) [Time] 20.3 s High 11.7-14.9 [facility] Comment on above: Performed By: #### L 300.3900, L500.2500, L501.2450, L300.4310 ####[facility] [address] [place], [address] Urinalysis, Completeon 09-20 BACTERIA 1+ /hpf Normal None Seen [facility] Comment on above: Order Comment: CLEAN CATCH Performed By: #### L 400.0001 ####[facility] [address] [place], [address] EPI,SQUAMOUS 0 SEEN Normal 0-5 [facility] Comment on above: Order Comment: CLEAN CATCH Performed By: #### L 400.0001 ####[facility] [address] [place], [address] Mucus Ql (Urine sed) 0 SEEN Normal [facility] Comment on above: Order Comment: CLEAN CATCH Performed By: #### L 400.0001 ####[facility] [address] [place], [address] RBC 0 SEEN Normal 0-5 [facility] Comment on above: Order Comment: CLEAN CATCH Performed By: #### L 400.0001 ####[facility] [address] [place], [address] WBC 0 SEEN Normal 0-5 [facility] Comment on above: Order Comment: CLEAN CATCH Performed By: #### L 400.0001 ####[facility] [address], [address] CNOVon 06-14-2024 [facility] Office Visit (UCTR ) -------- ARYAN VALLE ([id number]) 1970 M Date Time Provider Department 06/14/24 9:15 AM ALISHA LAGOS [facility] During your visit today, we recorded the following information about you: Temperature Pulse Respiration Blood pressure 98 degrees 79/minute 20/minute 120/80 Weight 102 kg Alisha Lagos APRN.BROADCASTING EQUIPMENT MECHANIC 06/14/2024 10:00 AM Signed Subjective Patient came in with complaints of right great toe pain. Patient says he noticed some redness. Patient denies any fever chills nausea vomiting. The history is provided by the patient. No speech and language clinician was used. Pain (foot) Review of Systems [...] seem to be getting worse. Alisha Lagos APRN.BROADCASTING EQUIPMENT MECHANIC Allergies As of Date: 06/14/2024 (No Known [...] 0 CONSULT TO PODIATRY [9034] Order #: [id number]: 1 FUTURE Prescriptions as of 06/14/2024 - [...] (ALTACE) 1 (more content not included)... Normal [facility] Absolute lymphocyte countOrd ered By: Tana Farmer on 01-04-2024 Lymphocytes Auto (Unsp spec) [#/Vol] 1.02 10*3/uL 0.83-4.51 [facility] Automated lymphocyte count a s percentage of total leukocytesOrdered By: Tana Farmer on 01-04-2024 Lymphocytes/100 WBC Auto (Unsp spec) 21.7 % 19-41 [facility] Basophil percentageOrdered B y: Tana Farmer on 01-04-2024 Basophils/100 WBC (Bld) 0.6 % 0-1 [facility] Bilirubin [Mass/Vol] 6.20 mg/dL 0.20-1.00 [facility] Comment on above: For patients on eltr ombopag therapy, use of Dimension [place] TBIL is not recommended. Chloride [Moles/Vol] 104 mmol/L 98-107 [facility] Eosinophils/100 WBC (Bld) 2.6 % 0-5 [facility] Glucose [Mass/Vol] 96 mg/dL 74-106 [facility] Hemoglobin (Bld) [Mass/Vol] 13.6 g/dL 13.0-16.5 [facility] Monocytes/100 WBC (Bld) 9.8 % 0-10 [facility] Neutrophils (Bld) [#/Vol] 3.1 10*3/uL 2.0-7.7 [facility] Neutrophils/100 WBC (Bld) 64.9 % 47-70 [facility] Potassium [Moles/Vol] 4.0 mmol/L 3.5-5.1 [facility] Protein [Mass/Vol] 7.2 g/dL 6.4-8.2 [facility] Sodium [Moles/Vol] 136 mmol/L 136-145 [facility] WBC (Bld) [#/Vol] 4.7 10*3/uL 4.4-11.0 [facility] Determination of erythrocyte mean corpuscular volume (MCV)Ordered By: Tana Farmer on 01-04-2024 MCV (RBC) [Entitic vol] 104.2 fL 80-94 [facility] Erythrocyte distribution wid th ratioOrdered By: [facility] Gueroeliana on 01-04-2024 Erythrocyte distribution width (RBC) [Ratio] 14.6 % 11.6-14.6 [facility] Erythrocyte distribution wid th standard deviationOrdered By: [facility] on 01-04-2024 Erythrocyte distribution width (RBC) [Entitic vol] 56.4 fL 35.1-43.9 [facility] Hematocrit Auto (Bld) [Volum e fraction]Ordered By: [facility] on 01-04-2024 Hematocrit (Bld) [Volume fraction] 39.3 % 40-54 [facility] Immature granulocytes/100 WB C Auto (Bld)Ordered By: [facility] on 01-04-2024 Immature granulocytes/100 WBC (Bld) 0.400 % 0.0-0.9 [facility] Comment on above: IG% - Immature Granu locytes (promyelocytes, myelocytes and metamyelocytes) > 1% indicates that a LEFT SHIFT is Present. Laboratory - Chemistry and C hemistry - challengeOrdered By: [facility] Gueroeliana on 01-04-2024 Albumin/Globulin [Mass ratio] 0.7 {ratio} 0.9-2.4 [facility] ALP [Catalytic activity/Vol] 208 U/L 45-117 [facility] ALT [Catalytic activity/Vol] 45 U/L 16-61 [facility] CO2 [Moles/Vol] 26.0 mmol/L 21.0-32.0 [facility] Globulin (S) [Mass/Vol] 4.2 g/dL 2.2-4.2 [facility] Urea nitrogen/Creatinine [Mass ratio] 5.8 mg/mg 10-20 [facility] Laboratory - Hematology and Cell countsOrdered By: [facility] [place] Gueroeliana on 01-04-2024 MCH (RBC) [Entitic mass] 36.1 pg 27.0-32.0 [facility] MCHC (RBC) [Mass/Vol] 34.6 g/dL 32-36 [facility] Nucleated RBC/100 WBC (Bld) [Ratio] 0 % 0-5 [facility] Platelet mean volume (Bld) [Entitic vol] 9.3 fL 6.2-12.0 [facility] Platelets (Bld) [#/Vol] 120 10*3/uL 150-450 [facility] No Panel InformationOrdered By: Tana Farmer on 01-04-2024 Estimated GFR (MDRD) Amer 155 mL/min >60 [facility] Comment on above: GFR Calc Estimated GFR (MDRD) Non-Af Amer 128 mL/min >60 [facility] Comment on above: Non- GFR Calc RBC Auto (Bld) [#/Vol]Ordere d By: Tana Farmer on 01-04-2024 RBC (Bld) [#/Vol] 3.77 10*6/uL 4.6-6.2 [facility] Serum or plasma calcium nadja urement (mass/volume)Ordered By: Tana Farmer on 01-04-2024 Calcium [Mass/Vol] 9.4 mg/dL 8.5-10.1 [facility] Serum or plasma creatinine m easurement (mass/volume)Ordered By: Tana Farmer on 01-04-2024 Creatinine [Mass/Vol] 0.69 mg/dL 0.70-1.30 [facility] Comment on above: The validity of the calculated GFR & GFRAA in patients over 70 years has not been determined. Clinical correlation is essential. Serum or plasma thyroid stim ulating hormone (TSH) measurement (units/volume)Ordered By: Tana Farmer on 01-04-2024 TSH Qn 7.39 uIU/mL 0.358-3.74 [facility] Serum or plasma urea nitroge n measurement (mass/volume)Ordered By: Tana Farmer on 01-04-2024 Urea nitrogen [Mass/Vol] 4 mg/dL 7-18 [facility] Thin prep Papanicolaou smear with manual screeningOrdered By: Tana Farmer on 01-04-2024 Thin prep Papanicolaou smear with manual screening 3.0 g/dL 3.2-5.0 [facility] Thin prep Papanicolaou smear with manual screening 93 U/L 15-37 [facility] Thin prep Papanicolaou smear with manual screening 6 5-15 [facility] Absolute lymphocyte countOrd ered By: Tana Farmer on 08-26-2023 Lymphocytes Auto (Unsp spec) [#/Vol] 0.93 10*3/uL 0.83-4.51 [facility] Basophil percentageOrdered B y: Tana Farmer on 08-26-2023 Basophil percentage 113 mg/dL 74-106 [facility] Basophil percentage 7.7 g/dL 6.4-8.2 [facility] Basophil percentage 3.70 mg/dL 0.20-1.00 [facility] Basophil percentage 136 mmol/L 136-145 [facility] Basophil percentage 3.9 mmol/L 3.5-5.1 [facility] Basophil percentage 105 mmol/L 98-107 [facility] Basophil percentage 20.0 umol/L 11-32 [facility] Basophils (Bld) [#/Vol] 3.2 10*3/uL 4.4-11.0 [facility] Basophils (Bld) [#/Vol] 1.9 10*3/uL 2.0-7.7 [facility] Basophils/100 WBC (Bld) 60.4 % 47-70 [facility] Basophils/100 WBC (Bld) 2.2 % 0-5 [facility] Basophils/100 WBC (Bld) 0.9 % 0-1 [facility] Blood erythrocytes count (nu mber/volume)Ordered By: Tana Farmer on 08-26-2023 RBC (Bld) [#/Vol] 3.40 10*6/uL 4.6-6.2 [facility] Blood hemoglobin measurement (mass/volume)Ordered By: Tana Farmer on 08-26-2023 Hemoglobin (Bld) [Mass/Vol] 12.3 g/dL 13.0-16.5 [facility] Blood lymphocytes/100 leukoc ytesOrdered By: Tana Farmer on 08-26-2023 Lymphocytes/100 WBC (Bld) 29.0 % 19-41 [facility] Blood monocytes/100 leukocyt esOrdered By: Tana Farmer on 08-26-2023 Monocytes/100 WBC (Bld) 7.2 % 0-10 [facility] Blood platelet mean volumeOr dered By: Tana Farmer on 08-26-2023 Platelet mean volume (Bld) [Entitic vol] 9.4 fL 6.2-12.0 [facility] Determination of erythrocyte mean corpuscular volume (MCV)Ordered By: Tana Farmer on 08-26-2023 MCV (RBC) [Entitic vol] 105.3 fL 80-94 [facility] Hematocrit Auto (Bld) [Volum e fraction]Ordered By: Tana Farmer on 08-26-2023 Hematocrit (Bld) [Volume fraction] 35.8 % 40-54 [facility] MCHC Auto (RBC) [Mass/Vol]Or dered By: Tana Farmer on 08-26-2023 MCHC (RBC) [Mass/Vol] 34.4 g/dL 32-36 [facility] No Panel InformationOrdered By: Tana Farmer on 08-26-2023 36.2 pg 27.0-32.0 [facility] 13.4 % 11.6-14.6 [facility] 51.8 fl 35.1-43.9 [facility] 0.300 % 0.0-0.9 [facility] 0 % 0-5 [facility] 127 mL/min >60 [facility] 154 mL/min >60 [facility] 7.2 RATIO 10-20 [facility] 4.7 g/dL 2.2-4.2 [facility] 189 U/L 45-117 [facility] 55 U/L 16-61 [facility] 26.0 mmol/L 21.0-32.0 [facility] Platelets bldOrdered By: Mack Farmer on 08-26-2023 Platelets (Bld) [#/Vol] 107 10*3/uL 150-450 [facility] Serum or plasma albumin nadja urement (mass/volume)Ordered By: Tana Farmer on 08-26-2023 Albumin [Mass/Vol] 3.0 g/dL 3.2-5.0 [facility] Serum or plasma albumin/glob ulin mass ratioOrdered By: Tana Farmer on 08-26-2023 Albumin/Globulin [Mass ratio] 0.6 {ratio} 0.9-2.4 [facility] Serum or plasma calcium nadja urement (mass/volume)Ordered By: Tana Farmer on 08-26-2023 Calcium [Mass/Vol] 8.8 mg/dL 8.5-10.1 [facility] Serum or plasma creatinine m easurement (mass/volume)Ordered By: Tana Farmer on 08-26-2023 Creatinine [Mass/Vol] 0.69 mg/dL 0.70-1.30 [facility] Serum or plasma urea nitroge n measurement (mass/volume)Ordered By: Tana Farmer on 08-26-2023 Urea nitrogen [Mass/Vol] 5 mg/dL 7-18 [facility] Thin prep Papanicolaou smear with manual screeningOrdered By: Tana Farmer on 08-26-2023 Thin prep Papanicolaou smear with manual screening 107 U/L 15-37 [facility] Thin prep Papanicolaou smear with manual screening 5 5-15 [facility] Absolute lymphocyte countOrd ered By: Tana Farmer on 07-30-2023 Lymphocytes Auto (Unsp spec) [#/Vol] 0.88 10*3/uL 0.83-4.51 [facility] Basophil percentageOrdered B y: Tana Farmer on 07-30-2023 Ammonia (P) [Moles/Vol] 27.0 umol/L 11-32 [facility] Basophil percentage 110 mg/dL 74-106 [facility] Basophil percentage 7.6 g/dL 6.4-8.2 [facility] Basophil percentage 6.90 mg/dL 0.20-1.00 [facility] Basophil percentage 136 mmol/L 136-145 [facility] Basophil percentage 4.3 mmol/L 3.5-5.1 [facility] Basophil percentage 102 mmol/L 98-107 [facility] Basophil percentage 27.0 umol/L 11-32 [facility] Basophils (Bld) [#/Vol] 4.7 10*3/uL 4.4-11.0 [facility] Basophils (Bld) [#/Vol] 3.4 10*3/uL 2.0-7.7 [facility] Basophils/100 WBC (Bld) 0.6 % 0-1 [facility] Basophils/100 WBC (Bld) 72.6 % 47-70 [facility] Basophils/100 WBC (Bld) 1.5 % 0-5 [facility] Bilirubin [Mass/Vol] 6.90 mg/dL 0.20-1.00 [facility] Comment on above: For patients on eltr ombopag therapy, use of [place] TBIL is not recommended. Chloride [Moles/Vol] 102 mmol/L 98-107 [facility] Eosinophils/100 WBC (Bld) 1.5 % 0-5 [facility] Glucose [Mass/Vol] 110 mg/dL 74-106 [facility] Comment on above: Fasting Glucose resu lt from 100 to 125 mg/dL suggests IMPAIRED HOMEOSTASIS per A.D.A. criteria. Neutrophils (Bld) [#/Vol] 3.4 10*3/uL 2.0-7.7 [facility] Neutrophils/100 WBC (Bld) 72.6 % 47-70 [facility] Potassium [Moles/Vol] 4.3 mmol/L 3.5-5.1 [facility] Protein [Mass/Vol] 7.6 g/dL 6.4-8.2 [facility] Sodium [Moles/Vol] 136 mmol/L 136-145 [facility] WBC (Bld) [#/Vol] 4.7 10*3/uL 4.4-11.0 [facility] Blood erythrocytes count (nu mber/volume)Ordered By: Tana Farmer on 07-30-2023 RBC (Bld) [#/Vol] 3.07 10*6/uL 4.6-6.2 [facility] Blood hemoglobin measurement (mass/volume)Ordered By: Tana Farmer on 07-30-2023 Hemoglobin (Bld) [Mass/Vol] 11.5 g/dL 13.0-16.5 [facility] Blood lymphocytes/100 leukoc ytesOrdered By: Tana Farmer on 07-30-2023 Lymphocytes/100 WBC (Bld) 18.6 % 19-41 [facility] Blood monocytes/100 leukocyt esOrdered By: servando Farmer on 07-30-2023 Monocytes/100 WBC (Bld) 6.5 % 0-10 [facility] Blood platelet mean volumeOr dered By: Tana Farmer on 07-30-2023 Platelet mean volume (Bld) [Entitic vol] 9.6 fL 6.2-12.0 [facility] Determination of erythrocyte mean corpuscular volume (MCV)Ordered By: Tana Farmer on 07-30-2023 MCV (RBC) [Entitic vol] 109.1 fL 80-94 [facility] Hematocrit Auto (Bld) [Volum e fraction]Ordered By: Tana Farmer on 07-30-2023 Hematocrit (Bld) [Volume fraction] 33.5 % 40-54 [facility] Laboratory - Chemistry and C hemistry - challengeOrdered By: lorrainerepublican cityjames Hutchinseliana on 07-30-2023 ALP [Catalytic activity/Vol] 128 U/L 45-117 [facility] ALT [Catalytic activity/Vol] 53 U/L 16-61 [facility] CO2 [Moles/Vol] 27.0 mmol/L 21.0-32.0 [facility] Globulin (S) [Mass/Vol] 4.8 g/dL 2.2-4.2 [facility] Urea nitrogen/Creatinine [Mass ratio] 5.0 mg/mg 10-20 [facility] Laboratory - Hematology and Cell countsOrdered By: lorrainerepublican cityjames Farmer on 07-30-2023 Erythrocyte distribution width (RBC) [Entitic vol] 57.3 fL 35.1-43.9 [facility] Erythrocyte distribution width (RBC) [Ratio] 14.2 % 11.6-14.6 [facility] Immature granulocytes/100 WBC (Bld) 0.200 % 0.0-0.9 [facility] Comment on above: IG% - Immature Granu locytes (promyelocytes, myelocytes and metamyelocytes) > 1% indicates that a LEFT SHIFT is Present. MCH (RBC) [Entitic mass] 37.5 pg 27.0-32.0 [facility] Nucleated RBC/100 WBC (Bld) [Ratio] 0 % 0-5 [facility] MCHC Auto (RBC) [Mass/Vol]Or dered By: Tana Farmer on 07-30-2023 MCHC (RBC) [Mass/Vol] 34.3 g/dL 32-36 [facility] No Panel InformationOrdered By: Tana Farmer on 07-30-2023 Estimated GFR (MDRD) Amer 131 mL/min >60 [facility] Comment on above: GFR Calc Estimated GFR (MDRD) Non-Af Amer 108 mL/min >60 [facility] Comment on above: Non- GFR Calc Thyroid Stimulating Hormone (TSH) 6.03 uIU/mL 0.358-3.74 [facility] 37.5 pg 27.0-32.0 [facility] 14.2 % 11.6-14.6 [facility] 57.3 fl 35.1-43.9 [facility] 0.200 % 0.0-0.9 [facility] 0 % 0-5 [facility] 108 mL/min >60 [facility] 131 mL/min >60 [facility] 5.0 RATIO 10-20 [facility] 4.8 g/dL 2.2-4.2 [facility] 128 U/L 45-117 [facility] 53 U/L 16-61 [facility] 27.0 mmol/L 21.0-32.0 [facility] 6.03 uIU/mL 0.358-3.74 [facility] Platelets bldOrdered By: Mack Farmer on 07-30-2023 Platelets (Bld) [#/Vol] 125 10*3/uL 150-450 [facility] Serum or plasma albumin nadja urement (mass/volume)Ordered By: Tana Farmer on 07-30-2023 Albumin [Mass/Vol] 2.8 g/dL 3.2-5.0 [facility] Serum or plasma albumin/glob ulin mass ratioOrdered By: Tana Farmer on 07-30-2023 Albumin/Globulin [Mass ratio] 0.6 {ratio} 0.9-2.4 [facility] Serum or plasma calcium nadja urement (mass/volume)Ordered By: Tana Farmer on 07-30-2023 Calcium [Mass/Vol] 9.0 mg/dL 8.5-10.1 [facility] Serum or plasma creatinine m easurement (mass/volume)Ordered By: Tana Farmer on 07-30-2023 Creatinine [Mass/Vol] 0.80 mg/dL 0.70-1.30 [facility] Comment on above: The validity of the calculated GFR & GFRAA in patients over 70 years has not been determined. Clinical correlation is essential. Serum or plasma urea nitroge n measurement (mass/volume)Ordered By: Tana Farmer on 07-30-2023 Urea nitrogen [Mass/Vol] 4 mg/dL 7-18 [facility] Thin prep Papanicolaou smear with manual screeningOrdered By: Tana Farmer on 07-30-2023 Thin prep Papanicolaou smear with manual screening 81 U/L 15-37 [facility] Thin prep Papanicolaou smear with manual screening 7 5-15 [facility] Absolute lymphocyte countOrd ered By: Anselmo Edwards on 07-18-2023 Lymphocytes Auto (Unsp spec) [#/Vol] 0.76 10*3/uL 0.83-4.51 [facility] Basophil percentageOrdered B y: Anselmo Edwards on 07-18-2023 Basophil percentage 2.2 mg/dL 2.5-4.9 [facility] Basophil percentage 130 mg/dL 74-106 [facility] Basophil percentage 6.0 g/dL 6.4-8.2 [facility] Basophil percentage 8.70 mg/dL 0.20-1.00 [facility] Basophil percentage 137 mmol/L 136-145 [facility] Basophil percentage 3.4 mmol/L 3.5-5.1 [facility] Basophil percentage 100 mmol/L 98-107 [facility] Basophils (Bld) [#/Vol] 4.8 10*3/uL 4.4-11.0 [facility] Basophils (Bld) [#/Vol] 3.7 10*3/uL 2.0-7.7 [facility] Basophils/100 WBC (Bld) 0.0 % 0-1 [facility] Basophils/100 WBC (Bld) 76.4 % 47-70 [facility] Bilirubin [Mass/Vol] 8.70 mg/dL 0.20-1.00 [facility] Comment on above: For patients on eltr ombopag therapy, use of [place] TBIL is not recommended. Chloride [Moles/Vol] 100 mmol/L 98-107 [facility] Eosinophils/100 WBC (Bld) 0.0 % 0-5 [facility] Glucose [Mass/Vol] 130 mg/dL 74-106 [facility] Comment on above: Fasting Glucose resu lt greater than or equal to 126 mg/dL suggests DIABETES MELLITUS per A.D.A. criteria. Neutrophils (Bld) [#/Vol] 3.7 10*3/uL 2.0-7.7 [facility] Neutrophils/100 WBC (Bld) 76.4 % 47-70 [facility] Potassium [Moles/Vol] 3.4 mmol/L 3.5-5.1 [facility] Protein [Mass/Vol] 6.0 g/dL 6.4-8.2 [facility] Sodium [Moles/Vol] 137 mmol/L 136-145 [facility] WBC (Bld) [#/Vol] 4.8 10*3/uL 4.4-11.0 [facility] Blood erythrocytes count (nu mber/volume)Ordered By: Anselmo Edwards on 07-18-2023 RBC (Bld) [#/Vol] 2.65 10*6/uL 4.6-6.2 [facility] Blood hemoglobin measurement (mass/volume)Ordered By: Anselmo Edwards on 07-18-2023 Hemoglobin (Bld) [Mass/Vol] 9.9 g/dL 13.0-16.5 [facility] Blood lymphocytes/100 leukoc ytesOrdered By: Anselmo Edwards on 07-18-2023 Lymphocytes/100 WBC (Bld) 15.9 % 19-41 [facility] Blood monocytes/100 leukocyt esOrdered By: Anselmo Edwards on 07-18-2023 Monocytes/100 WBC (Bld) 7.3 % 0-10 [facility] Blood platelet mean volumeOr dered By: Anselmo Edwards on 07-18-2023 Platelet mean volume (Bld) [Entitic vol] 10.1 fL 6.2-12.0 [facility] Determination of erythrocyte mean corpuscular volume (MCV)Ordered By: Anselmo Edwards on 07-18-2023 MCV (RBC) [Entitic vol] 105.7 fL 80-94 [facility] Direct bilirubinOrdered By: Anselmo Edwards on 07-18-2023 Bilirubin.direct [Mass/Vol] 2.67 mg/dL 0.00-0.30 [facility] Hematocrit Auto (Bld) [Volum e fraction]Ordered By: Anselmo Edwards on 07-18-2023 Hematocrit (Bld) [Volume fraction] 28.0 % 40-54 [facility] Laboratory - Chemistry and C hemistry - challengeOrdered By: Anselmo Edwards on 07-18-2023 ALP [Catalytic activity/Vol] 90 U/L 45-117 [facility] ALT [Catalytic activity/Vol] 27 U/L 16-61 [facility] CO2 [Moles/Vol] 29.0 mmol/L 21.0-32.0 [facility] Globulin (S) [Mass/Vol] 3.9 g/dL 2.2-4.2 [facility] Magnesium [Mass/Vol] 1.9 mg/dL 1.6-2.6 [facility] Urea nitrogen/Creatinine [Mass ratio] 6.0 mg/mg 10-20 [facility] Laboratory - Hematology and Cell countsOrdered By: Anselmo Edwards on 07-18-2023 Erythrocyte distribution width (RBC) [Entitic vol] 54.4 fL 35.1-43.9 [facility] Erythrocyte distribution width (RBC) [Ratio] 14.0 % 11.6-14.6 [facility] Immature granulocytes/100 WBC (Bld) 0.400 % 0.0-0.9 [facility] Comment on above: IG% - Immature Granu locytes (promyelocytes, myelocytes and metamyelocytes) > 1% indicates that a LEFT SHIFT is Present. MCH (RBC) [Entitic mass] 37.4 pg 27.0-32.0 [facility] Nucleated RBC/100 WBC (Bld) [Ratio] 0 % 0-5 [facility] MCHC Auto (RBC) [Mass/Vol]Or dered By: Anselmo Edwards on 07-18-2023 MCHC (RBC) [Mass/Vol] 35.4 g/dL 32-36 [facility] No Panel InformationOrdered By: Anselmo Edwards on 07-18-2023 Estimated Creatinine Clearance Calc 141.56 ml/min [facility] Estimated GFR (MDRD) Amer 161 mL/min >60 [facility] Comment on above: GFR Calc Estimated GFR (MDRD) Non-Af Amer 133 mL/min >60 [facility] Comment on above: Non- GFR Calc 37.4 pg 27.0-32.0 [facility] 14.0 % 11.6-14.6 [facility] 54.4 fl 35.1-43.9 [facility] 0.400 % 0.0-0.9 [facility] 0 % 0-5 [facility] 133 mL/min >60 [facility] 161 mL/min >60 [facility] 141.56 ml/min [facility] 6.0 RATIO 10-20 [facility] 3.9 g/dL 2.2-4.2 [facility] 90 U/L 45-117 [facility] 27 U/L 16-61 [facility] 1.9 mg/dL 1.6-2.6 [facility] 29.0 mmol/L 21.0-32.0 [facility] Platelets bldOrdered By: Lan Edwards on 07-18-2023 Platelets (Bld) [#/Vol] 126 10*3/uL 150-450 [facility] Serum or plasma albumin nadja urement (mass/volume)Ordered By: Anselmo Edwards on 07-18-2023 Albumin [Mass/Vol] 2.1 g/dL 3.2-5.0 [facility] Serum or plasma calcium nadja urement (mass/volume)Ordered By: Anselmo Edwards on 07-18-2023 Calcium [Mass/Vol] 8.5 mg/dL 8.5-10.1 [facility] Serum or plasma creatinine m easurement (mass/volume)Ordered By: Anselmo Edwards on 07-18-2023 Creatinine [Mass/Vol] 0.67 mg/dL 0.70-1.30 [facility] Comment on above: The validity of the calculated GFR & GFRAA in patients over 70 years has not been determined. Clinical correlation is essential. Serum or plasma urea nitroge n measurement (mass/volume)Ordered By: Anselmo Edwards on 07-18-2023 Urea nitrogen [Mass/Vol] 4 mg/dL 7-18 [facility] Thin prep Papanicolaou smear with manual screeningOrdered By: Anselmo Edwards on 07-18-2023 Thin prep Papanicolaou smear with manual screening 48 U/L 15-37 [facility] Thin prep Papanicolaou smear with manual screening 8 5-15 [facility] Anaerobic cultureOrdered By: Brian Junior on 07-17-2023 Bacteria identified Anaer cx Nom (Unsp spec) No growth in 5 days. [facility] Bacteria identified Anaer cx Nom (Unsp spec) No growth in 5 days. [facility] Bacterial body fluid culture Ordered By: Brian Junior on 07-17-2023 Bacteria identified Cx Nom (Body fld) Culture exhibits no growth. [facility] Bacteria identified Cx Nom (Body fld) Culture exhibits no growth. [facility] Body fluid appearanceOrdered By: Brian Junior on 07-17-2023 Appearance (Body fld) CLEAR [facility] Body fluid color determinati onOrdered By: Brian Junior on 07-17-2023 Color (Body fld) YELLOW [facility] Body fluid leukocytes count (number/volume)Ordered By: Brian Junior on 07-17-2023 WBC (Body fld) [#/Vol] 0.131 10*3/uL [facility] Body fluid lymphocytes/100 l eukocytesOrdered By: Brian Junior on 07-17-2023 Lymphocytes/100 WBC (Body fld) 23 % [facility] Body fluid macrophage countO rdered By: Brian Junior on 07-17-2023 Macrophages (Body fld) [#/Vol] 26 % [facility] Body fluid mesothelial cell percentageOrdered By: Brian Junior on 07-17-2023 Mesothelial cells/100 WBC (Body fld) 29 % [facility] Body fluid segmented neutrop hils count (number/volume)Ordered By: Brian Junior on 07-17-2023 Segmented neutrophils (Body fld) [#/Vol] 17 % [facility] Cytology report of Body flui d Cyto stainOrdered By: Brian Junior on 07-17-2023 Cytology report Cyto stain Doc (Body fld) SEE PATHOLOGY REPORT [facility] Comment on above: Specimen submitted t o Anatomical Pathology Department for testing. Gram stain for investigation of transfusion reactionOrdered By: Brian Junior on 07-17-2023 Microscopic observation Gram stain Nom (Unsp spec) [facility] Microscopic observation Gram stain Nom (Unsp spec) [facility] Mononuclear cells Auto (Body fld) [#/Vol]Ordered By: Brian Junior on 07-17-2023 Mononuclear cells (Body fld) [#/Vol] 0.106 10*3/uL [facility] No Panel InformationOrdered By: Brian Junior on 07-17-2023 Body Fluid Comment 2 Not Reportable [facility] Body Fluid Mononuclear WBCs (%) 80.9 % [facility] Body Fluid Pathologist Comment May follow [facility] Body Fluid Pathologist Comment Reviewed [facility] Comment on above: Previous reported re sult: May follow Edited by: RGORACHEL on 07/21/23:1220Negative for malignant cells.Beny Jordan M.D. 07/21/23 AMENDED REPORT 07/21/23 1220 PATH COMM/BF previously reported as: May follow Body Fluid Polynuclear WBCs (#) 0.025 10^3/uL [facility] Body Fluid Polynuclear WBCs (%) 19.1 % [facility] Body Fluid RBC 180 /mm3 [facility] 180 /mm3 [facility] 19.1 % [facility] 80.9 % [facility] 0.025 10^3/uL [facility] Reviewed [facility] Not Reportable [facility] Specimen source identificati on of body fluidOrdered By: Brian Junior on 08-25-2023 Specimen source Nom (Body fld) OTHER [facility] Comment on above: PARACENTESIS Thin prep Papanicolaou smear with manual screeningOrdered By: Brian Junior on 07-17-2023 Thin prep Papanicolaou smear with manual screening 5 % [facility] Total cell countOrdered By: Brian Junior on 07-17-2023 Cells counted Molgen (Bld/Tiss) [#] 0.160 10^3/ul [facility] Comment on above: This is the Total Nu mber of Nucleated Cell Types in the Body Fluid. Absolute lymphocyte countOrd ered By: Caridad Go on 07-16-2023 Lymphocytes Auto (Unsp spec) [#/Vol] 0.78 10*3/uL 0.83-4.51 [facility] Albumin Elph [Mass/Vol]Order ed By: Abel Parr on 07-16-2023 Albumin [Mass/Vol] 2.8 g/dL 2.9-4.4 [facility] Atypical perinuclear antineu trophil cytoplasmic antibodies measurementOrdered By: Abel Parr on 07-16-2023 Neutrophil cytoplasmic Ab.perinuclear.atypical IF (S) [Titer] <1:20 titer Neg:<1:20 [facility] Comment on above: Note: Specimen is ic teric.The atypical pANCA pattern has been observed in asignificant percentage of patients with ulcerative colitis,primary sclerosing cholangitis and autoimmune hepatitis. Basophil percentageOrdered B y: Abel Parr on 07-16-2023 Basophil percentage < 0.2 AI 0.0-0.9 [facility] Amylase [Catalytic activity/Vol] 28 U/L 25-115 [facility] Basophil percentage 28 U/L 25-115 [facility] Basophil percentageOrdered B y: Caridad Go on 07-16-2023 Basophil percentage 0 SEEN /hpf 0-5 [facility] Ammonia (P) [Moles/Vol] 29.0 umol/L 11-32 [facility] Basophil percentage 29.0 umol/L 11-32 [facility] Basophils/100 WBC (Bld) 0.5 % 0-1 [facility] Bilirubin [Mass/Vol] 11.00 mg/dL 0.20-1.00 [facility] Comment on above: For patients on eltr ombopag therapy, use of [facility] [place] TBIL is not recommended. Chloride [Moles/Vol] 97 mmol/L 98-107 [facility] Eosinophils/100 WBC (Bld) 1.7 % 0-5 [facility] Glucose [Mass/Vol] 137 mg/dL 74-106 [facility] Comment on above: Fasting Glucose resu lt greater than or equal to 126 mg/dL suggests DIABETES MELLITUS per A.D.A. criteria. Neutrophils (Bld) [#/Vol] 2.9 10*3/uL 2.0-7.7 [facility] Neutrophils/100 WBC (Bld) 70.4 % 47-70 [facility] Potassium [Moles/Vol] 3.1 mmol/L 3.5-5.1 [facility] Protein [Mass/Vol] 6.8 g/dL 6.4-8.2 [facility] Comment on above: Moderate Icterus, Re sult may be falsely decreased. Sodium [Moles/Vol] 134 mmol/L 136-145 [facility] WBC (Bld) [#/Vol] 4.1 10*3/uL 4.4-11.0 [facility] Bilirubin Test strip Ql (U)O rdered By: Caridad Go on 07-16-2023 Bilirubin Ql (U) Negative Negative [facility] Blood erythrocytes count (nu mber/volume)Ordered By: Caridad Go on 07-16-2023 RBC (Bld) [#/Vol] 2.94 10*6/uL 4.6-6.2 [facility] Blood hemoglobin measurement (mass/volume)Ordered By: Caridad Go on 07-16-2023 Hemoglobin (Bld) [Mass/Vol] 11.0 g/dL 13.0-16.5 [facility] Blood lymphocytes/100 leukoc ytesOrdered By: Caridad Go on 07-16-2023 Lymphocytes/100 WBC (Bld) 19.1 % 19-41 [facility] Blood monocytes/100 leukocyt esOrdered By: Caridad Go on 07-16-2023 Monocytes/100 WBC (Bld) 7.8 % 0-10 [facility] Blood platelet mean volumeOr dered By: Caridad Go on 07-16-2023 Platelet mean volume (Bld) [Entitic vol] 9.8 fL 6.2-12.0 [facility] Body fluid albumin measureme nt by colorimetric method (mass/volume)Ordered By: Abel Parr on 07-16-2023 Albumin Ql (Body fld) 0.8 g/dL Not Estab. [facility] Comment on above: The reference interv al(s) and other method performance specificationshave not been established for this body fluid. The test result must beintegrated into the clinical context for interpretation. Body fluid amylase measureme nt (enzymatic activity/volume)Ordered By: Abel Parr on 07-16-2023 Amylase (Body fld) [Catalytic activity/Vol] 16 U/L . [facility] Comment on above: : BODY FLUID TYPE : AMYLASE : : : : : Lymph : 50 - 83 : : : : : Peritoneal : : : Fluid : 88 - 109 : : : : : Saliva : : : (Mixed Glands) : [id number] - [id number] : : : : Kimi Delaney V. Reference Intervals for Adults and Children 2007. Ninth Edition (V9.1) [employer], [facility]; Centre: May 2009.Performed at: [address], [place] [id number] Director: Wali Sanders PhD, Phone: [phone] Determination of erythrocyte mean corpuscular volume (MCV)Ordered By: Caridad Go on 07-16-2023 MCV (RBC) [Entitic vol] 105.8 fL 80-94 [facility] Direct bilirubinOrdered By: Caridad Go on 07-16-2023 Bilirubin.direct [Mass/Vol] 2.88 mg/dL 0.00-0.30 [facility] HIV 1 and HIV-2 antibody ass ay with HIV-1 p24 antigen detectionOrdered By: Abel Parr on 07-16-2023 HIV 1+2 Ab+HIV1 p24 Ag IA Ql Non-Reactive Nonreactive [facility] Hematocrit Auto (Bld) [Volum e fraction]Ordered By: Caridad Go on 07-16-2023 Hematocrit (Bld) [Volume fraction] 31.1 % 40-54 [facility] INR in Blood by Coagulation assayOrdered By: Caridad Go on 07-16-2023 INR Coag (Bld) [Relative time] 1.8 {INR} [facility] Interpretation of serum or p lasma protein pattern by immunofixation (narrative resultOrdered By: Abel Parr on 07-16-2023 Protein Fractions Immunofixation Johann [Interp] See comment [facility] Comment on above: NOT OBSERVED Iron measurement (mass/mass) Ordered By: Brian Junior on 07-16-2023 Iron (Unsp spec) [Mass/Mass] 118 ug/dL 65-175 [facility] Ketones Test strip Ql (U)Ord ered By: Caridad Go on 07-16-2023 Ketones Ql (U) Negative Negative [facility] Laboratory - Chemistry and C hemistry - challengeOrdered By: Caridad Go on 07-16-2023 ALP [Catalytic activity/Vol] 111 U/L 45-117 [facility] ALT [Catalytic activity/Vol] 30 U/L 16-61 [facility] CO2 [Moles/Vol] 29.0 mmol/L 21.0-32.0 [facility] Globulin (S) [Mass/Vol] 4.4 g/dL 2.2-4.2 [facility] Lipase [Catalytic activity/Vol] 42 U/L 13-75 [facility] Comment on above: Please note:LIPASE r evised reference range effective 23. New Lipase methodology. Expected to produce lower values than the previous assay method. NEW Reference Range: 13 - 75 U/L Urea nitrogen/Creatinine [Mass ratio] 4.1 mg/mg 10-20 [facility] Laboratory - Chemistry and C hemistry - challengeOrdered By: Brian Junior on 07-16-2023 Cobalamin (Vitamin B12) [Mass/Vol] 575 pg/mL 211-911 [facility] Laboratory - CoagulationOrde red By: Caridad Go on 07-16-2023 aPTT Coag (Bld) [Time] 48.8 s 24.1-36.2 [facility] PT Coag (PPP) [Time] 21.2 s 11.7-14.9 [facility] Laboratory - Hematology and Cell countsOrdered By: Caridad Go on 07-16-2023 Erythrocyte distribution width (RBC) [Entitic vol] 56.9 fL 35.1-43.9 [facility] Erythrocyte distribution width (RBC) [Ratio] 14.7 % 11.6-14.6 [facility] Immature granulocytes/100 WBC (Bld) 0.500 % 0.0-0.9 [facility] Comment on above: IG% - Immature Granu locytes (promyelocytes, myelocytes and metamyelocytes) > 1% indicates that a LEFT SHIFT is Present. MCH (RBC) [Entitic mass] 37.4 pg 27.0-32.0 [facility] Nucleated RBC/100 WBC (Bld) [Ratio] 0 % 0-5 [facility] MCHC Auto (RBC) [Mass/Vol]Or dered By: Caridad Go on 07-16-2023 MCHC (RBC) [Mass/Vol] 35.4 g/dL 32-36 [facility] Mucus LM Ql (Urine sed)Order ed By: Caridad Go on 07-16-2023 Mucus Ql (Urine sed) 0 SEEN /hpf [facility] Nitrite Test strip Ql (U)Ord ered By: Caridad Go on 07-16-2023 Nitrite Ql (U) Negative Negative [facility] No Panel InformationOrdered By: Abel Parr on 07-16-2023 Addendum Document Comment . [facility] Comment on above: Protein electrophore sis scan will follow via computer,mail, or prepress supervisor delivery. CA 19-9 Antigen 58 U/mL 0-35 [facility] Comment on above: [employer] El ectrochemiluminescence Immunoassay(ECLIA)Values obtained with different assay methods or kits cannotbe used interchangeably. Results cannot be interpreted asabsolute evidence of the presence or absence of malignantdisease. Centromere B Antibody <0.2 AI 0.0-0.9 [facility] Ceruloplasmin 17.1 mg/dL 16.0-31.0 [facility] Comment on above: Performed at: [facility] [address] [id number] Director: Wali Sanders PhD, Phone: [phone] APPLIER Antibody <0.2 AI 0.0-0.9 [facility] See comment [facility] 58 U/mL 0-35 [facility] 17.1 mg/dL 16.0-31.0 [facility] <0.2 AI 0.0-0.9 [facility] No Panel InformationOrdered By: Caridad Go on 07-16-2023 Hepatitis A IgM Antibody Negative Negative [facility] Hepatitis B Core IgM Antibody Negative Negative [facility] Hepatitis C Antibody (EIA) Non-Reactive Non Reactive [facility] Hepatitis C Antibody Comment Comment . [facility] Comment on above: Not infected with HC V unless early or acute infection issuspected (which may be delayed in an immunocompromisedindividual), or other evidence exists to indicate HCVinfection.Performed at: [facility] [address] [id number] Director: Wali Sanders PhD, Phone: [phone] Negative Negative [facility] Non-Reactive Non Reactive [facility] Comment . [facility] Estimated Creatinine Clearance Calc 129.92 ml/min [facility] Estimated GFR (MDRD) Amer 145 mL/min >60 [facility] Comment on above: GFR Calc Estimated GFR (MDRD) Non-Af Amer 120 mL/min >60 [facility] Comment on above: Non- GFR Calc Ethyl Alcohol Level 6.0 mg/dL [facility] Comment on above: The serum:whole bloo d ethanol ratio is approximately 1.14and varies slightly with hematocrit. Medical Alcohol reference interval and critical value innon-tolerant individuals; 50 - 100 Impairment 100 Intoxication 100 - 250 Severe Poisoning 250 - 400 Deep/possible fatal coma 21.2 SECONDS 11.7-14.9 [facility] 48.8 Seconds 24.1-36.2 [facility] 42 U/L 13-75 [facility] 6.0 mg/dL [facility] No Panel InformationOrdered By: Brian Junior on 07-16-2023 Total Iron Binding Capacity 144 ug/dL 250-450 [facility] 575 pg/mL 211-911 [facility] 144 ug/dL 250-450 [facility] Platelets bldOrdered By: Uyen Go on 07-16-2023 Platelets (Bld) [#/Vol] 129 10*3/uL 150-450 [facility] Protein Test strip Ql (U)Ord ered By: Caridad Go on 07-16-2023 Protein Ql (U) Negative Negative [facility] Serum DNA double strand anti body assay (units/volume)Ordered By: Abel Parr on 07-16-2023 DNA double strand Ab Qn (S) 1 [IU]/mL 0-9 [facility] Comment on above: Negative <5 Equivoca l 5 - 9 Positive >9 Serum Dana-1 antibody assay (u nits/volume)Ordered By: Abel Parr on 07-16-2023 Dana-1 extractable nuclear Ab Qn (S) <0.2 AI 0.0-0.9 [facility] Serum Scl-70 extractable nuc lear antibody assay (units/volume)Ordered By: Abel Parr on 07-16-2023 SCL-70 extractable nuclear Ab Qn (S) <0.2 AI 0.0-0.9 [facility] Serum Jacobs extractable nucl ear antibody detectionOrdered By: Abel Parr on 07-16-2023 Jacobs extractable nuclear Ab Ql (S) 0.2 AI 0.0-0.9 [facility] Serum wiept-2-xtliuaerruh me asurementOrdered By: Abel Parr on 07-16-2023 Alpha 1 antitrypsin [Mass/Vol] 179 mg/dL 101-187 [facility] Comment on above: Performed at: [address] [id number] Director: Wali Sanders PhD, Phone: [phone] Serum shbfe-7-cynioqlx measu rement by electrophoresisOrdered By: Abel Parr on 07-16-2023 Alpha 1 globulin Elph [Mass/Vol] 0.3 g/dL 0.4-1.0 [facility] Serum classic neutrophil cyt oplasmic antibody assay (units/volume)Ordered By: Abel Parr on 07-16-2023 Neutrophil cytoplasmic Ab.classic Qn (S) 1:20 titer Neg:<1:20 [facility] Comment on above: Note: Specimen is ic teric. Serum or plasma IgA measurem ent (mass/volume)Ordered By: Abel Parr on 07-16-2023 IgA [Mass/Vol] 755 mg/dL 90-386 [facility] Serum or plasma IgG measurem ent (mass/volume)Ordered By: Abel Parr on 07-16-2023 IgG [Mass/Vol] 2163 mg/dL 603-1613 [facility] Serum or plasma IgM measurem ent (mass/volume)Ordered By: Abel Parr on 07-16-2023 IgM [Mass/Vol] 288 mg/dL 20-172 [facility] Serum or plasma albumin nadja urement (mass/volume)Ordered By: Caridad Go on 07-16-2023 Albumin [Mass/Vol] 2.4 g/dL 3.2-5.0 [facility] Serum or plasma adrfw-3-kbrl protein tumor marker measurement (units/volume)Ordered By: Abel Parr on 07-16-2023 AFP.tumor marker Qn 3.9 ng/mL 0.0-8.4 [facility] Comment on above: [employer] [facility] El ectrochemiluminescence Immunoassay(ECLIA)Values obtained with different assay methods or kits cannotbe used interchangeably. Results cannot be interpreted asabsolute evidence of the presence or absence of malignantdisease.This test is not interpretable in females. Serum or plasma beta globuli n measurement by electrophoresis (mass/volume)Ordered By: Abel Parr on 07-16-2023 Beta globulin Elph [Mass/Vol] 0.7 g/dL 0.7-1.3 [facility] Serum or plasma calcium nadja urement (mass/volume)Ordered By: Caridad Go on 07-16-2023 Calcium [Mass/Vol] 8.5 mg/dL 8.5-10.1 [facility] Serum or plasma carcinoembry onic antigen measurement (mass/volume)Ordered By: Abel Parr on 07-16-2023 Carcinoembryonic Ag [Mass/Vol] 6.1 ng/mL 0.0-4.7 [facility] Comment on above: Nonsmokers <3.9 Smok ers <5.6[facility] Electrochemiluminescence Immunoassay(ECLIA)Values obtained with different assay methods or kitscannot be used interchangeably. Results cannot beinterpreted as absolute evidence of the presence orabsence of malignant disease. Serum or plasma creatinine m easurement (mass/volume)Ordered By: Caridad Go on 07-16-2023 Creatinine [Mass/Vol] 0.73 mg/dL 0.70-1.30 [facility] Comment on above: Moderate Icterus, Re sult may be falsely decreased.The validity of the calculated GFR & GFRAA in patients over 70 years has not been determined. Clinical correlation is essential. Serum or plasma cytomegalovi rachel (CMV) IgM antibody assay (units/volume)Ordered By: Abel Parr on 07-16-2023 CMV IgM Qn < 30.0 AU/mL 0.0-29.9 [facility] Comment on above: Negative <30.0 Equiv ocal 30.0 - 34.9 Positive >34.9A positive result is generally indicative of acuteinfection, reactivation or persistent IgM production. Serum or plasma ferritin maria del rosario surement (mass/volume)Ordered By: Brian Junior on 07-16-2023 Ferritin [Mass/Vol] 1050 ng/mL 26-388 [facility] Comment on above: Moderate Icterus, Re sult may be falsely decreased. Serum or plasma folate measu rement (mass/volume)Ordered By: Brian Junior on 07-16-2023 Folate [Mass/Vol] 2.80 ng/mL 3.1-55.4 [facility] Serum or plasma gamma globul in measurement by electrophoresis (mass/volume)Ordered By: Abel Parr on 07-16-2023 Gamma globulin Elph [Mass/Vol] 2.6 g/dL 0.4-1.8 [facility] Serum or plasma hepatitis B virus surface antigen detection by immunoassayOrdered By: Caridad Go on 07-16-2023 HBV surface Ag IA Ql Negative Negative [facility] Serum or plasma immunoelectr ophoresis interpretation (nominal result)Ordered By: Abel Parr on 07-16-2023 Interpretation IEP [Interp] Comment . [facility] Comment on above: No monoclonality det ected. Serum or plasma iron saturat ion measurement (mass fraction)Ordered By: Brian Junior on 07-16-2023 Iron saturation [Mass fraction] 81.9 % 15.0-55.0 [facility] Serum or plasma urea nitroge n measurement (mass/volume)Ordered By: Caridad Go on 07-16-2023 Urea nitrogen [Mass/Vol] 3 mg/dL 7-18 [facility] Serum perinuclear neutrophil cytoplasmic antibody titer by immunofluorescenceOrdered By: Abel Parr on 07-16-2023 Neutrophil cytoplasmic Ab.perinuclear IF (S) [Titer] <1:20 titer Neg:<1:20 [facility] Comment on above: Note: Specimen is ic teric.The presence of positive fluorescence exhibiting P-ANCA orC-ANCA patterns alone is not specific for the diagnosis ofWegener's Granulomatosis (WG) or microscopic polyangiitis.Decisions about treatment should not be based solely onANCA IFA results. The [employer] ANCA Group Consensusrecommends follow up testing of positive sera with both OK-3 and MPO-ANCA enzyme immunoassays. As many as 5% serumsamples are positive only by EIA. Ref. AM J Clin Rxylsm5313;111:507-513. Squamous epithelial cells de tection in urine sediment by light microscopyOrdered By: Caridad Go on 07-16-2023 Epithelial cells.squamous LM Ql (Urine sed) 0 SEEN /hpf 0-5 [facility] Thin prep Papanicolaou smear with manual screeningOrdered By: Abel Parr on 07-16-2023 Thin prep Papanicolaou smear with manual screening 0.8 0.7-1.7 [facility] Thin prep Papanicolaou smear with manual screening 83 ug/dL 69-132 [facility] Comment on above: Detection Limit = 5P erformed at: - [facility] [address] [id number] Director: Wali Sanders PhD, Phone: [phone] at: - [facility] [id number] Director: Angela Buenrostro MD, Phone: [phone] Thin prep Papanicolaou smear with manual screeningOrdered By: Caridad Go on 07-16-2023 Thin prep Papanicolaou smear with manual screening 70 U/L 15-37 [facility] Thin prep Papanicolaou smear with manual screening 8 5-15 [facility] Total protein bloodOrdered B y: Abel Parr on 07-16-2023 Protein [Mass/Vol] 6.7 g/dL 6.0-8.5 [facility] Urine blood detectionOrdered By: Caridad Go on 07-16-2023 RBC Ql (U) Negative Negative [facility] RBC Ql (U) 0 SEEN /hpf 0-5 [facility] Urine clarityOrdered By: Uyen Go on 07-16-2023 Clarity (U) Clear Clear [facility] Urine color determinationOrd ered By: Caridad Go on 07-16-2023 Color (U) Yellow Yellow [facility] Urine glucose detectionOrder ed By: Caridad Go on 07-16-2023 Glucose Ql (U) Normal mg/dl Normal [facility] Urine leukocyte esterase det ection by dipstickOrdered By: Caridad Go on 07-16-2023 Leukocyte esterase Test strip Ql (U) Negative Negative [facility] Urine pHOrdered By: Caridad hernandez on 07-16-2023 pH (U) 7.0 [pH] 5.0 - 8.0 [facility] Urine sediment bacteria coun t by microscopy (number/high power field)Ordered By: Caridad Go on 07-16-2023 Bacteria LM.HPF (Urine sed) [#/Area] 0 /[HPF] None Seen [facility] Urine specific gravity measu rementOrdered By: Caridad Go on 07-16-2023 Specific gravity (U) [Rel density] 1.005 1.002-1.030 [facility] Urobilinogen Auto test strip Ql (U)Ordered By: Caridad Go on 07-16-2023 Urobilinogen Ql (U) 4 mg/dl Normal [facility] Absolute lymphocyte countOrd ered By: Tana Farmer on 07-15-2023 Lymphocytes Auto (Unsp spec) [#/Vol] 0.92 10*3/uL 0.83-4.51 [facility] Basophil percentageOrdered B y: Tana Farmer on 07-15-2023 Ammonia (P) [Moles/Vol] 56.0 umol/L - [facility] Basophil percentage 139 mg/dL 74-106 [facility] Basophil percentage 7.1 g/dL 6.4-8.2 [facility] Basophil percentage 10.40 mg/dL 0.20-1.00 [facility] Basophil percentage 133 mmol/L 136-145 [facility] Basophil percentage 3.3 mmol/L 3.5-5.1 [facility] Basophil percentage 98 mmol/L 98-107 [facility] Basophil percentage 56.0 umol/L - [facility] Basophils (Bld) [#/Vol] 4.9 10*3/uL 4.4-11.0 [facility] Basophils (Bld) [#/Vol] 3.5 10*3/uL 2.0-7.7 [facility] Basophils/100 WBC (Bld) 0.4 % 0-1 [facility] Basophils/100 WBC (Bld) 70.7 % 47-70 [facility] Basophils/100 WBC (Bld) 1.8 % 0-5 [facility] Bilirubin [Mass/Vol] 10.40 mg/dL 0.20-1.00 [facility] Comment on above: For patients on eltr ombopag therapy, use of [facility] [place] TBIL is not recommended. Chloride [Moles/Vol] 98 mmol/L 98-107 [facility] Eosinophils/100 WBC (Bld) 1.8 % 0-5 [facility] Glucose [Mass/Vol] 139 mg/dL 74-106 [facility] Comment on above: Fasting Glucose resu lt greater than or equal to 126 mg/dL suggests DIABETES MELLITUS per A.D.A. criteria. Neutrophils (Bld) [#/Vol] 3.5 10*3/uL 2.0-7.7 [facility] Neutrophils/100 WBC (Bld) 70.7 % 47-70 [facility] Potassium [Moles/Vol] 3.3 mmol/L 3.5-5.1 [facility] Protein [Mass/Vol] 7.1 g/dL 6.4-8.2 [facility] Sodium [Moles/Vol] 133 mmol/L 136-145 [facility] WBC (Bld) [#/Vol] 4.9 10*3/uL 4.4-11.0 [facility] Blood erythrocytes count (nu mber/volume)Ordered By: Tana Farmer on 07-15-2023 RBC (Bld) [#/Vol] 3.07 10*6/uL 4.6-6.2 [facility] Blood hemoglobin measurement (mass/volume)Ordered By: Tana Farmer on 07-15-2023 Hemoglobin (Bld) [Mass/Vol] 11.4 g/dL 13.0-16.5 [facility] Blood lymphocytes/100 leukoc ytesOrdered By: Tana Farmer on 07-15-2023 Lymphocytes/100 WBC (Bld) 18.6 % 19-41 [facility] Blood monocytes/100 leukocyt esOrdered By: Tana Farmer on 07-15-2023 Monocytes/100 WBC (Bld) 8.1 % 0-10 [facility] Blood platelet mean volumeOr dered By: Tana Farmer on 07-15-2023 Platelet mean volume (Bld) [Entitic vol] 10.1 fL 6.2-12.0 [facility] Determination of erythrocyte mean corpuscular volume (MCV)Ordered By: Tana Farmer on 07-15-2023 MCV (RBC) [Entitic vol] 106.8 fL 80-94 [facility] Hematocrit Auto (Bld) [Volum e fraction]Ordered By: [facility] Hutchinseliana on 07-15-2023 Hematocrit (Bld) [Volume fraction] 32.8 % 40-54 [facility] Laboratory - Chemistry and C hemistry - challengeOrdered By: [facility] Hutch[facility]eliana on 07-15-2023 ALP [Catalytic activity/Vol] 118 U/L 45-117 [facility] ALT [Catalytic activity/Vol] 33 U/L 16-61 [facility] CO2 [Moles/Vol] 29.0 mmol/L 21.0-32.0 [facility] Globulin (S) [Mass/Vol] 4.5 g/dL 2.2-4.2 [facility] Urea nitrogen/Creatinine [Mass ratio] 3.7 mg/mg 10-20 [facility] Laboratory - Hematology and Cell countsOrdered By: [facility] on 07-15-2023 Erythrocyte distribution width (RBC) [Entitic vol] 59.2 fL 35.1-43.9 [facility] Erythrocyte distribution width (RBC) [Ratio] 15.0 % 11.6-14.6 [facility] Immature granulocytes/100 WBC (Bld) 0.400 % 0.0-0.9 [facility] Comment on above: IG% - Immature Granu locytes (promyelocytes, myelocytes and metamyelocytes) > 1% indicates that a LEFT SHIFT is Present. MCH (RBC) [Entitic mass] 37.1 pg 27.0-32.0 [facility] Nucleated RBC/100 WBC (Bld) [Ratio] 0 % 0-5 [facility] MCHC Auto (RBC) [Mass/Vol]Or dered By: Tana Farmer on 07-15-2023 MCHC (RBC) [Mass/Vol] 34.8 g/dL 32-36 [facility] No Panel InformationOrdered By: lorrainerepublican cityjames Farmer on 07-15-2023 Estimated GFR (MDRD) Amer 128 mL/min >60 [facility] Comment on above: GFR Calc Estimated GFR (MDRD) Non-Af Amer 106 mL/min >60 [facility] Comment on above: Non- GFR Calc 37.1 pg 27.0-32.0 [facility] 15.0 % 11.6-14.6 [facility] 59.2 fl 35.1-43.9 [facility] 0.400 % 0.0-0.9 [facility] 0 % 0-5 [facility] 106 mL/min >60 [facility] 128 mL/min >60 [facility] 3.7 RATIO 10-20 [facility] 4.5 g/dL 2.2-4.2 [facility] 118 U/L 45-117 [facility] 33 U/L 16-61 [facility] 29.0 mmol/L 21.0-32.0 [facility] Platelets bldOrdered By: Mack Farmer on 07-15-2023 Platelets (Bld) [#/Vol] 134 10*3/uL 150-450 [facility] Serum or plasma albumin nadja urement (mass/volume)Ordered By: Tana Farmer on 07-15-2023 Albumin [Mass/Vol] 2.6 g/dL 3.2-5.0 [facility] Serum or plasma albumin/glob ulin mass ratioOrdered By: Tana Farmer on 07-15-2023 Albumin/Globulin [Mass ratio] 0.6 {ratio} 0.9-2.4 [facility] Serum or plasma calcium nadja urement (mass/volume)Ordered By: Tana Farmer on 07-15-2023 Calcium [Mass/Vol] 8.9 mg/dL 8.5-10.1 [facility] Serum or plasma creatinine m easurement (mass/volume)Ordered By: Tana Farmer on 07-15-2023 Creatinine [Mass/Vol] 0.81 mg/dL 0.70-1.30 [facility] Comment on above: The validity of the calculated GFR & GFRAA in patients over 70 years has not been determined. Clinical correlation is essential. Serum or plasma urea nitroge n measurement (mass/volume)Ordered By: Tana Yuaneliana on 07-15-2023 Urea nitrogen [Mass/Vol] 3 mg/dL 7-18 [facility] Thin prep Papanicolaou smear with manual screeningOrdered By: Tana Farmer on 07-15-2023 Thin prep Papanicolaou smear with manual screening 76 U/L 15-37 [facility] Thin prep Papanicolaou smear with manual screening 6 5-15 [facility] Basophil percentageOrdered B y: Marcojames Hutchinssukhdeepeliana on 06-19-2023 Ammonia (P) [Moles/Vol] 54.0 umol/L [facility] Basophil percentage 54.0 umol/L [facility] INR in Blood by Coagulation assayOrdered By: Fifilorrainephyliciajames Hutchinssukhdeepeliana on 06-19-2023 INR Coag (Bld) [Relative time] 1.5 {INR} [facility] Laboratory - CoagulationOrde red By: Fifilorrainephyliciajames Hutchinssukhdeepeliana on 06-19-2023 PT Coag (PPP) [Time] 18.3 s 11.7-14.9 [facility] No Panel InformationOrdered By: Fifilorraineolamide Guerosukhdeepeliana on 06-19-2023 18.3 SECONDS 11.7-14.9 [facility] Absolute lymphocyte countOrd ered By: Tana Guerosukhdeepeliana on 06-18-2023 Lymphocytes Auto (Unsp spec) [#/Vol] 0.90 10*3/uL 0.83-4.51 [facility] Basophil percentageOrdered B y: Marcojames Hutchinssukhdeepeliana on 06-18-2023 Basophil percentage 133 mg/dL 74-106 [facility] Basophil percentage 7.8 g/dL 6.4-8.2 [facility] Basophil percentage 9.20 mg/dL 0.20-1.00 [facility] Basophil percentage 130 mmol/L 136-145 [facility] Basophil percentage 3.4 mmol/L 3.5-5.1 [facility] Basophil percentage 97 mmol/L 98-107 [facility] Basophils (Bld) [#/Vol] 6.5 10*3/uL 4.4-11.0 [facility] Basophils (Bld) [#/Vol] 4.9 10*3/uL 2.0-7.7 [facility] Basophils/100 WBC (Bld) 0.5 % 0-1 [facility] Basophils/100 WBC (Bld) 76.0 % 47-70 [facility] Basophils/100 WBC (Bld) 1.4 % 0-5 [facility] Bilirubin [Mass/Vol] 9.20 mg/dL 0.20-1.00 [facility] Comment on above: For patients on eltr ombopag therapy, use of [place] TBIL is not recommended. Chloride [Moles/Vol] 97 mmol/L 98-107 [facility] Eosinophils/100 WBC (Bld) 1.4 % 0-5 [facility] Glucose [Mass/Vol] 133 mg/dL 74-106 [facility] Comment on above: Fasting Glucose resu lt greater than or equal to 126 mg/dL suggests DIABETES MELLITUS per A.D.A. criteria. Neutrophils (Bld) [#/Vol] 4.9 10*3/uL 2.0-7.7 [facility] Neutrophils/100 WBC (Bld) 76.0 % 47-70 [facility] Potassium [Moles/Vol] 3.4 mmol/L 3.5-5.1 [facility] Protein [Mass/Vol] 7.8 g/dL 6.4-8.2 [facility] Sodium [Moles/Vol] 130 mmol/L 136-145 [facility] WBC (Bld) [#/Vol] 6.5 10*3/uL 4.4-11.0 [facility] Blood erythrocytes count (nu mber/volume)Ordered By: Tana Farmer on 06-18-2023 RBC (Bld) [#/Vol] 3.36 10*6/uL 4.6-6.2 [facility] Blood hemoglobin measurement (mass/volume)Ordered By: Tana Farmer on 06-18-2023 Hemoglobin (Bld) [Mass/Vol] 12.4 g/dL 13.0-16.5 [facility] Blood lymphocytes/100 leukoc ytesOrdered By: Tana Farmer on 06-18-2023 Lymphocytes/100 WBC (Bld) 13.9 % 19-41 [facility] Blood monocytes/100 leukocyt esOrdered By: [facility]el[facility] on 06-18-2023 Monocytes/100 WBC (Bld) 7.7 % 0-10 [facility] Blood platelet mean volumeOr dered By: [facility] Gueroeliana on 06-18-2023 Platelet mean volume (Bld) [Entitic vol] 10.2 fL 6.2-12.0 [facility] Determination of erythrocyte mean corpuscular volume (MCV)Ordered By: [facility] Gueroeliana on 06-18-2023 MCV (RBC) [Entitic vol] 103.9 fL 80-94 [facility] Hematocrit Auto (Bld) [Volum e fraction]Ordered By: [facility] Gueroeliana on 06-18-2023 Hematocrit (Bld) [Volume fraction] 34.9 % 40-54 [facility] Laboratory - Chemistry and C hemistry - challengeOrdered By: [facility] Gueroeliana on 06-18-2023 ALP [Catalytic activity/Vol] 115 U/L 45-117 [facility] ALT [Catalytic activity/Vol] 49 U/L 16-61 [facility] CO2 [Moles/Vol] 26.0 mmol/L 21.0-32.0 [facility] Globulin (S) [Mass/Vol] 5.0 g/dL 2.2-4.2 [facility] Urea nitrogen/Creatinine [Mass ratio] 4.3 mg/mg 10-20 [facility] Laboratory - Hematology and Cell countsOrdered By: [facility] Gueroeliana on 06-18-2023 Erythrocyte distribution width (RBC) [Entitic vol] 52.1 fL 35.1-43.9 [facility] Erythrocyte distribution width (RBC) [Ratio] 13.6 % 11.6-14.6 [facility] Immature granulocytes/100 WBC (Bld) 0.500 % 0.0-0.9 [facility] Comment on above: IG% - Immature Granu locytes (promyelocytes, myelocytes and metamyelocytes) > 1% indicates that a LEFT SHIFT is Present. MCH (RBC) [Entitic mass] 36.9 pg 27.0-32.0 [facility] Nucleated RBC/100 WBC (Bld) [Ratio] 0 % 0-[address] [facility] ([facility]BC) [Mass/Vol]Or dered By: Tana Farmer on 06-18-2023 MCHC (RBC) [Mass/Vol] 35.5 g/dL 32-36 [facility] No Panel InformationOrdered By: Tana Farmer on 06-18-2023 Estimated GFR (MDRD) Amer 110 mL/min >60 [facility] Comment on above: GFR Calc Estimated GFR (MDRD) Non-Af Amer 91 mL/min >60 [facility] Comment on above: Non- GFR Calc 36.9 pg 27.0-32.0 [facility] 13.6 % 11.6-14.6 [facility] 52.1 fl 35.1-43.9 [facility] 0.500 % 0.0-0.9 [facility] 0 % 0-5 [facility] 91 mL/min >60 [facility] 110 mL/min >60 [facility] 4.3 RATIO 10-20 [facility] 5.0 g/dL 2.2-4.2 [facility] 115 U/L 45-117 [facility] 49 U/L 16-61 [facility] 26.0 mmol/L 21.0-32.0 [facility] Platelets bldOrdered By: Mack Farmer on 06-18-2023 Platelets (Bld) [#/Vol] 114 10*3/uL 150-450 [facility] Serum or plasma albumin nadja urement (mass/volume)Ordered By: Tana Farmer on 06-18-2023 Albumin [Mass/Vol] 2.8 g/dL 3.2-5.0 [facility] Serum or plasma albumin/glob ulin mass ratioOrdered By: Tana Farmer on 06-18-2023 Albumin/Globulin [Mass ratio] 0.6 {ratio} 0.9-2.4 [facility] Serum or plasma calcium nadja urement (mass/volume)Ordered By: Tana Farmer on 06-18-2023 Calcium [Mass/Vol] 8.9 mg/dL 8.5-10.1 [facility] Serum or plasma creatinine m easurement (mass/volume)Ordered By: Tana Farmer on 06-18-2023 Creatinine [Mass/Vol] 0.92 mg/dL 0.70-1.30 [facility] Comment on above: The validity of the calculated GFR & GFRAA in patients over 70 years has not been determined. Clinical correlation is essential. Serum or plasma urea nitroge n measurement (mass/volume)Ordered By: Tana Farmer on 06-18-2023 Urea nitrogen [Mass/Vol] 4 mg/dL 7- [facility] Thin prep Papanicolaou smear with manual screeningOrdered By: Tana Farmer on 06-18-2023 Thin prep Papanicolaou smear with manual screening 98 U/L 15 [facility] Thin prep Papanicolaou smear with manual screening 7 5-15 [facility] Absolute lymphocyte counton 04-15-2022 Lymphocytes Auto (Unsp spec) [#/Vol] 1.18 10*3/uL 0.83-4.51 [facility] Work Phone: Basophil percentageon 2021 Basophils/100 WBC (Bld) 0.8 % 0-1 [facility] Work Phone: Bilirubin [Mass/Vol] 1.40 mg/dL 0.20-1.00 [facility] Work Phone: [phone] Comment on above: For patients on eltr ombopag therapy, use of [place] TBIL is not recommended. Chloride [Moles/Vol] 103 mmol/L 98-107 [facility] Work Phone: Eosinophils/100 WBC (Bld) 1.8 % 0-5 [facility] Work Phone: Glucose [Mass/Vol] 98 mg/dL 74-106 [facility] Work Phone: Neutrophils (Bld) [#/Vol] 3.4 10*3/uL 2.0-7.7 [facility] Work Phone: Neutrophils/100 WBC (Bld) 67.1 % 47-70 [facility] Work Phone: Potassium [Moles/Vol] 4.2 mmol/L 3.5-5.1 [facility] Work Phone: Protein [Mass/Vol] 8.5 g/dL 6.4-8.2 [facility] Work Phone: [phone] Sodium [Moles/Vol] 137 mmol/L 136-145 [facility] Work Phone: WBC (Bld) [#/Vol] 5.0 10*3/uL 4.4-11.0 [facility] Work Phone: Blood erythrocytes count (nu mber/volume)on 04-15-2022 RBC (Bld) [#/Vol] 4.27 10*6/uL 4.6-6.2 [facility]: Blood hemoglobin measurement (mass/volume)on 04-15-2022 Hemoglobin (Bld) [Mass/Vol] 14.6 g/dL 13.0-16.5 [facility] Work Phone: Blood lymphocytes/100 leukoc yteson 04-15-2022 Lymphocytes/100 WBC (Bld) 23.4 % 19-41 [facility] Work Phone: Blood monocytes/100 leukocyt eson 04-15-2022 Monocytes/100 WBC (Bld) 6.7 % 0-10 [facility] Work Phone: Blood platelet mean volumeon 04-15-2022 Platelet mean volume (Bld) [Entitic vol] 9.3 fL 6.2-12.0 [facility] Work Phone: Determination of erythrocyte mean corpuscular volume (MCV)on 04-15-2022 MCV (RBC) [Entitic vol] 99.1 fL 80-94 [facility] Work Phone: Hematocrit Auto (Bld) [Volum e fraction]on 04-15-2022 Hematocrit (Bld) [Volume fraction] 42.3 % 40-54 [facility] Work Phone: Laboratory - Chemistry and C hemistry - challengeon 04-15-2022 ALP [Catalytic activity/Vol] 125 U/L 45-117 [facility] Work Phone: ALT [Catalytic activity/Vol] 63 U/L 16-61 [facility] Work Phone: CO2 [Moles/Vol] 28.0 mmol/L 21.0-32.0 [facility] Work Phone: Free T4 [Mass/Vol] 0.96 ng/dL 0.76-1.46 [facility] Work Phone: Globulin (S) [Mass/Vol] 4.7 g/dL 2.2-4.2 [facility] Work Phone: Urea nitrogen/Creatinine [Mass ratio] 6.9 mg/mg 10-20 [facility] Work Phone: Laboratory - Hematology and Cell countson 04-15-2022 Erythrocyte distribution width (RBC) [Entitic vol] 50.1 fL 35.1-43.9 [facility] Work Phone: Erythrocyte distribution width (RBC) [Ratio] 13.6 % 11.6-14.6 [facility] Work Phone: Immature granulocytes/100 WBC (Bld) 0.200 % 0.0-0.9 [facility] Work Phone: Comment on above: IG% - Immature Granu locytes (promyelocytes, myelocytes and metamyelocytes) > 1% indicates that a LEFT SHIFT is Present. MCH (RBC) [Entitic mass] 34.2 pg 27.0-32.0 [facility] Work Phone: Nucleated RBC/100 WBC (Bld) [Ratio] 0 % 0-5 [facility] Work Phone: MCHC Auto (RBC) [Mass/Vol]on 04-15-2022 MCHC (RBC) [Mass/Vol] 34.5 g/dL 32-36 [facility] Work Phone: No Panel Informationon 04-15 Estimated GFR (MDRD) Amer 147 mL/min >60 [facility] Work Phone: Comment on above: GFR Calc Estimated GFR (MDRD) Non-Af Amer 122 mL/min >60 [facility] Work Phone: Comment on above: Non- GFR Calc Thyroid Stimulating Hormone (TSH) 2.97 uIU/mL 0.358-3.74 [facility] Work Phone: Platelets bldon 04-15-2022 Platelets (Bld) [#/Vol] 108 10*3/uL 150-450 [facility] Work Phone: Serum or plasma albumin nadja urement (mass/volume)on 04-15-2022 Albumin [Mass/Vol] 3.8 g/dL 3.2-5.0 [facility] Work Phone: Serum or plasma albumin/glob ulin mass ratioon 04-15-2022 Albumin/Globulin [Mass ratio] 0.8 {ratio} 0.9-2.4 [facility] Work Phone: Serum or plasma calcium nadja urement (mass/volume)on 04-15-2022 Calcium [Mass/Vol] 8.7 mg/dL 8.5-10.1 [facility] Work Phone: Serum or plasma creatinine m easurement (mass/volume)on 04-15-2022 Creatinine [Mass/Vol] 0.72 mg/dL 0.70-1.30 [facility] Work Phone: Comment on above: The validity of the calculated GFR & GFRAA in patients over 70 years has not been determined. Clinical correlation is essential. Serum or plasma urea nitroge n measurement (mass/volume)on 04-15-2022 Urea nitrogen [Mass/Vol] 5 mg/dL 7-18 [facility] Work Phone: Thin prep Papanicolaou smear with manual screeningon 04-15-2022 Thin prep Papanicolaou smear with manual screening 140 U/L 15-37 [facility] Work Phone: Thin prep Papanicolaou smear with manual screening 6 5-15 [facility] Work Phone: HEPATITIS PROFILEon 06-29-20 19 HEPATITIS B CORE AB IGM Negative Normal [facility] Comment on above: Result Comment: Test Performed By: [facility] [employer] (ABAM) [address] [place] [address] [employer] Make Up Helper: Rain Martínez MD, PhD HEPATITIS A VIRUS ANTIBODY IGM Negative Normal [facility] HEPATITIS C AB Negative Normal [facility] Comment on above: Result Comment: Test Performed By: [facility] [employer] (ABAM) [address] [place] [address] [employer] Up Helper: Rain Martínez MD, PhD --- 06/29/19 1107 --- HCV previously reported as: Negative HEPATITIS B SURFACE ANTIGEN Negative Normal [facility] RAPID PLASMA REAGINon 2018 RAPID PLASMA REAGIN NONREACTIVE Normal NONREACTIVE [facility] Comment on above: Performed By: #### R OK #### [address] [address] ALCOHOLon 06-27-2019 Ethanol [Mass/Vol] 83.0 mg/dL Normal [facility] Comment on above: Result Comment: < 3 mg/dl NONE DETECTED 50-100 mg/dl MAY SHOW SIGNS OF INTOXICATION 300-500 mg/dl COMATOSE LEVEL Performed By: #### M N, ALC #### [address] [address] CBC with AUTO DIFFon 019 BAS0 % 1.10 % Normal 0-2 [facility] Comment on above: Performed By: #### C BC #### [facility] [address] [place] [address] Basophils (Bld) [#/Vol] 0.1 10*3/uL Normal 0-0.1 [facility] Comment on above: Performed By: #### C BC #### [facility] [address] [place] [address] Eosinophils (Bld) [#/Vol] 0.1 10*3/uL Normal 0.0-1.80 [facility] Comment on above: Performed By: #### C BC #### [facility] [address] [facility] [place] [address] Eosinophils/100 WBC (Bld) 1.5 % Normal 0-8 [facility] Comment on above: Performed By: #### C BC #### [facility] [address] [facility] [place] [address] GRAN # 3.0 K/uL Normal 2.2-9.1 [facility] Comment on above: Performed By: #### C BC #### [facility] [address] [facility] [place] [address] GRAN % 58.7 % Normal 42-80 [facility] Comment on above: Performed By: #### C BC #### [facility] [address] [facility] [place] [address] Hematocrit (Bld) [Volume fraction] 37.2 % Low 41.0-53.0 [facility] Comment on above: Performed By: #### C BC #### [address] [place] [address] Hemoglobin (Bld) [Mass/Vol] 12.9 g/dL Low 14.0-18.0 [facility] Comment on above: Performed By: #### C BC #### [address] [place] [address] Lymphocytes (Bld) [#/Vol] 1.5 10*3/uL Normal 1.0-4.0 [facility] Comment on above: Performed By: #### C BC #### [facility] [address] [facility] [place] [address] Lymphocytes/100 WBC (Bld) 30.4 % Normal 16-48 [facility] Comment on above: Performed By: #### C BC #### [facility] [address] [facility] [place] [address] MCH (RBC) [Entitic mass] 34.7 g/dL Normal 31.0-36.0 [facility] Comment on above: Performed By: #### C BC #### [facility] [address] [facility] [place] [address] MCV (RBC) [Entitic vol] 98.2 fL High 80-97 [facility] on above: Performed By: #### C BC #### [facility] [address] [facility] [place] [address] MEAN CORPUSCULAR HGB 34.1 pg High 26.0-32.0 [facility] Comment on above: Performed By: #### C BC #### [facility] [address] [facility] [place] [address] Monocytes (Bld) [#/Vol] 0.4 10*3/uL Normal 0.1-1.7 [facility] Comment on above: Performed By: #### C BC #### [facility] [address] [facility] [place] [address] Monocytes/100 WBC (Bld) 8.3 % Normal 3-9 [facility] Comment on above: Performed By: #### C BC #### [facility] [address] [facility] [place] [address] Platelet mean volume (Bld) [Entitic vol] 7.5 fL Normal 6.4-10.5 [facility] Comment on above: Performed By: #### C BC #### [facility] [address] [facility] [place] [address] Platelets (Bld) [#/Vol] 224 10*3/uL Normal 140-450 [facility] Comment on above: Performed By: #### C BC #### [address] [place] [address] RBC (Bld) [#/Vol] 3.79 10*6/uL Low 4.40-6.30 [facility] Comment on above: Performed By: #### C BC #### [facility] [address] [facility] [place] [address] RED CELL DISTRI WIDTH 13.4 % Normal 11.0-15.5 [facility] Comment on above: Performed By: #### C BC #### [facility] [address] [facility] [place] [address] WBC (Bld) [#/Vol] 5.1 10*3/uL Normal 4.0-11.0 [facility] Comment on above: Performed By: #### C BC #### [facility] [address] [facility] [place] [address] COMPREHENSIVE METABOLIC PANE Romario 06-27-2019 Albumin [Mass/Vol] 3.9 g/dL Normal 3.0-5.0 [facility] Comment on above: Performed By: #### M N, ALC #### [facility] [address] [facility] [place] [address] Albumin/Globulin [Mass ratio] 1.0 {ratio} Low 1.1-1.8 [facility] Comment on above: Performed By: #### M N, ALC #### [facility] [address] [facility] [place] [address] ALP [Catalytic activity/Vol] 169 U/L High 45-117 [facility] Comment on above: Performed By: #### M N, ALC #### [facility] [address] [facility] [place] [address] ALT [Catalytic activity/Vol] 30 U/L Normal 12-78 [facility] Comment on above: Performed By: #### M N, ALC #### [facility] [address] [facility] [place] [address] Anion gap [Moles/Vol] 13.6 mmol/L Normal 11-23 [facility] Comment on above: Performed By: #### M N, ALC #### [facility] [address] [facility] [place] [address] Bilirubin [Mass/Vol] 0.6 mg/dL Normal 0-1.0 [facility] Comment on above: Performed By: #### M N, ALC #### [facility] [address] [facility] [place] [address] Calcium [Mass/Vol] 8.4 mg/dL Low 8.5-10.1 [facility] Comment on above: Performed By: #### M N, ALC #### [facility] [address] [facility] [place] [address] Chloride [Moles/Vol] 102 mmol/L Normal 98-107 [facility] Comment on above: Performed By: #### M N, ALC #### [facility] [address] [facility] [place] [address] CO2 [Moles/Vol] 24.0 mmol/L Normal 21-32 [facility] Comment on above: Performed By: #### M N, ALC #### [facility] [address] [facility] [place] [address] Creatinine [Mass/Vol] 0.90 mg/dL Normal 0.4-1.2 [facility] Comment on above: Performed By: #### M N, ALC #### [facility] [address] [facility] [place] [address] GFR AM > 60.0 [facility] Comment on above: Result Comment: THE NORMAL LEVEL OF GFR VARIES ACCORDING TO AGE, SEX, AND BODY SIZE. A GFR LEVEL OF LESS THAN 60 ML/MIN REPRESENTS LOSS OF THE ADULT LEVEL OF NORMAL KIDNEY FUNCTION. Performed By: #### M N, ALC #### [facility] [address] [facility] [place] [address] GFR/1.73 sq M.predicted MDRD (S/P/Bld) [Vol rate/Area] mL/min/{1.73_m2} Normal [facility] Comment on above: Performed By: #### M N, ALC #### [address] [place] [address] Globulin (S) [Mass/Vol] 3.8 g/dL Normal 2.5-4.6 [facility] Comment on above: Performed By: #### M N, ALC #### [address] [place] [address] Glucose [Mass/Vol] 106 mg/dL High 70-100 [facility] Comment on above: Performed By: #### M N, ALC #### [address] [place] [address] Potassium [Moles/Vol] 3.9 mmol/L Normal 3.6-5.2 [facility] Comment on above: Performed By: #### M N, ALC #### [address] [place] [address] Protein [Mass/Vol] 7.7 g/dL Normal 6.0-8.3 [facility] Comment on above: Performed By: #### M N, ALC #### [address] [place] [address] SGOT/AST 36 U/L High 9-34 [facility] Comment on above: Performed By: #### M N, ALC #### [address] [place] [address] Sodium [Moles/Vol] 136 mmol/L Normal 136-147 [facility] Comment on above: Performed By: #### M N, ALC #### [facility] [address] [facility] [place] [address] Urea nitrogen [Mass/Vol] 10.0 mg/dL Normal 7-18 [facility] Comment on above: Performed By: #### M N, ALC #### [address] [place] [address] ED.PDOCon 08-05-2019 ED.PDOC ARYAN VALLE Male [id number] Attending provider: [facility] [id number] Luciana Christian 1970 49 DOS: 06/27/19 Hx/Exam - History of Present Illness Chief Complaint: DETOX MEDICAL CLEARANCE Symptom Duration: 31 Symptom Duration: Year(s) Onset of Symptoms: Alcohol abuse for 31 yr, recent detox at [facility] last week Intensity: moderate (pain to [...] due to seizures and was evaluated at [facility] and diagnosed with 5 broken ribs on the right side. Patient states that he was at [facility] for 5 days and was released last Thursday. Since then he has cut down his alcohol consumption from 30 beers a day to approximately 6 beers a day. After detox treatment here he plans to go to residential treatment at [facility]. - Review of Systems All Other Systems: [...] suicidal ideation. Patient was recently released from [facility] and plans to go to residential treatment [...] Supervising physician Dr. Yeboah, patient seen by PA only. 06/27/19 15:28 EKG - EKG EKG Interpretation: Not Applicable Discharge Screen - Discharge Discharge Problem: Desire for detoxification, Alcohol abuse Disposition: [facility] Condition: Good Referrals: provider (Unknown),Unlisted [Primary Care Provider] - Dictated By: MEGHNA Nation Dictated Date/Time:06/27/19 0685 Electronically Signed Date/Time: 06/27/19 3996 [facility] MAGNESIUMon 06-27-2019 Magnesium [Mass/Vol] 2.1 mg/dL Normal 1.8-2.4 [facility] Comment on above: Performed By: #### M G #### [address] [address] Phenobarbitalon 06-20-2019 Phenobarbital [Mass/Vol] 27.7 ug/mL Normal 15.0-40.0 [facility] Comment on above: Performed By: #### P HNO3 #### [facility] [address] [place] [address] CR Chest Portableon 06-16-20 19 CR Chest Portable Patient Name: ARYAN SLATER Diagnostic Radiology Exam Date/Time 06/16/2019 14:34:13 EDT Exam CR Chest Portable Ordering Physician [id number] ANILA ARCE Accession Number [id number] CPT4 Codes 84384 () Reason For Exam rib fx Report [...] Transcribed Date and Time: 06/16/2019 2:56 Normal [facility] Comp Metabolic Panelon 06-16 ALT [Catalytic activity/Vol] 18 U/L Normal 13-69 [facility] Comment on above: Performed By: #### H EMOG, CMP3, ETOH4 #### [facility] [address] [place] [address] Calcium [Mass/Vol] 10.2 mg/dL Normal 8.4-10.4 [facility] Comment on above: Performed By: #### H EMOG, CMP3, ETOH4 #### [facility] [address] [place] [address] Glucose [Mass/Vol] 101 mg/dL High 70-100 [facility] Comment on above: Performed By: #### H EMOG, CMP3, ETOH4 #### [facility] [address] [place], [place] ALP [Catalytic activity/Vol] 74 U/L Normal 38-126 [facility] Comment on above: Performed By: #### H EMOG, CMP3, ETOH4 #### [facility] [address] [place], [place] Anion gap [Moles/Vol] 14 Normal [facility] Comment on above: Performed By: #### H EMOG, CMP3, ETOH4 #### [facility] [address], [place] AST [Catalytic activity/Vol] 38 U/L Normal 15-46 [facility] Comment on above: Performed By: #### H EMOG, CMP3, ETOH4 #### [facility] [address] [place], [place] Bilirubin [Mass/Vol] 1.4 mg/dL High 0.2-1.3 [facility] Comment on above: Performed By: #### H EMOG, CMP3, ETOH4 #### [facility] [address], [place] CO2 [Moles/Vol] 25 mmol/L Normal 22-30 [facility] Comment on above: Performed By: #### H EMOG, CMP3, ETOH4 #### [facility] [address], [place] Creatinine [Mass/Vol] 0.92 mg/dL Normal 0.52-1.25 [facility] Comment on above: Performed By: #### H EMOG, CMP3, ETOH4 #### [facility] [address], [place] GFR/1.73 sq M predicted among blacks MDRD (S/P/Bld) [Vol rate/Area] mL/min/{1.73_m2} Normal >60 [facility] Comment on above: Performed By: #### H EMOG, CMP3, ETOH4 #### [facility] [address] [place], [place] GFR/1.73 sq M predicted among non-blacks MDRD (S/P/Bld) [Vol rate/Area] mL/min/{1.73_m2} Normal >60 [facility] Comment on above: Result Comment: Sour ce- MDRD equation with creatinine calibration to IDMS(NKDEP) eGFR not recommended for drug dose adjustment Performed By: #### H EMOG, CMP3, ETOH4 #### [address] Protein [Mass/Vol] 8.6 g/dL High 6.3-8.2 [facility] Comment on above: Performed By: #### H EMOG, CMP3, ETOH4 #### [address] [address] [place], [place] Urea nitrogen [Mass/Vol] 12 mg/dL Normal 7-20 [facility] Comment on above: Performed By: #### H EMOG, CMP3, ETOH4 #### [address] [address] [place], [place] Chloride [Moles/Vol] 100 mmol/L Normal 98-107 [facility] Comment on above: Performed By: #### H EMOG, CMP3, ETOH4 #### [address] [address] [place], [place] Potassium [Moles/Vol] 4.8 mmol/L Normal 3.5-5.1 [facility] Comment on above: Performed By: #### H EMOG, CMP3, ETOH4 #### [address] [address] [place], [place] Sodium [Moles/Vol] 140 mmol/L Normal 135-145 [facility] Comment on above: Performed By: #### H EMOG, CMP3, ETOH4 #### [address] Albumin [Mass/Vol] 4.8 g/dL Normal 3.5-5.0 [facility] Comment on above: Performed By: #### H EMOG, CMP3, ETOH4 #### [address] [address] [place], [place] Drugs of Abuseon 06-16-2019 Phencyclidine (PCP), Ur Negative Normal [facility] Comment on above: Result Comment: The expected [...] order. Performed By: #### D RGA4 #### [facility] [address] [place] [address] Methadone, Ur Negative Normal [facility] Comment on above: Performed By: #### D RGA4 #### [address] [place] [address] Opiates, Ur Positive Normal [facility] Comment on above: Performed By: #### D RGA4 #### [facility] [address] [place] [address] Cocaine, Ur Negative Normal [facility] Comment on above: Performed By: #### D RGA4 #### [facility] [address] [place] [address] Barbiturates, Ur Negative Normal [facility] Comment on above: Performed By: #### D RGA4 #### [facility] [address] [place] [address] Benzodiazepines, Ur Negative Normal [facility] Comment on above: Performed By: #### D RGA4 #### [facility] [address] [place] [address] Amphetamines, Ur Negative Normal [facility] Comment on above: Performed By: #### D RGA4 #### [facility] [address] [place] [address] Oxycodone/Oxymorphine,U r Negative Normal [facility] Comment on above: Performed By: #### D RGA4 #### [address] [address] [address] [place], [place] Ethanol Serum/Plasmaon 06-16 Ethanol-Serum/Plasma 0.024 g/dL High 0.000-0.010 [facility] Comment on above: Result Comment: NOTE : This result is for medical treatment only. Analysis performed using non-forensic procedures. Performed By: #### H LESTER, CMP3, ETOH4 #### [address] [address] [address] [place], [place] Hemogramon 06-16-2019 Erythrocyte distribution width (RBC) [Ratio] 13.7 % Normal 11.5-14.5 [facility] Comment on above: Performed By: #### H EMOSally, CMP3, ETOH4 #### [address] [address] [address] [place], [place] Hematocrit (Bld) [Volume fraction] 41.7 % Normal 40.0-52.0 [facility] Comment on above: Performed By: #### H EMOSally, CMP3, ETOH4 #### [address] [address] [address] [place], [place] Hemoglobin (Bld) [Mass/Vol] 14.4 g/dL Normal 13.0-18.0 [facility] Comment on above: Performed By: #### H EMOG, CMP3, ETOH4 #### [address] [address] [address] [place], [place] MCH (RBC) [Entitic mass] 34.2 pg High 26.0-34.0 [facility] Comment on above: Performed By: #### H EMOG, CMP3, ETOH4 #### [address] [address] [address] [place], [place] MCHC (RBC) [Mass/Vol] 34.6 % Normal 32.0-36.0 [facility] Comment on above: Performed By: #### H EMOG, CMP3, ETOH4 #### [address] [address] [address] [place], [place] MCV (RBC) [Entitic vol] 98.8 fL High 80.0-98.[address] [facility] Comment on above: Performed By: #### H EMOG, CMP3, ETOH4 #### [facility] [address] [place], [place] Platelet mean volume (Bld) [Entitic vol] 7.9 fL Normal 7.4-10.4 [facility] Comment on above: Performed By: #### H EMOG, CMP3, ETOH4 #### [facility] [address] [place], [place] Platelets (Bld) [#/Vol] 167 10*3/uL Normal 140-440 [facility] Comment on above: Performed By: #### H EMOG, CMP3, ETOH4 #### [address] [address] [address] [place], [place] RBC (Bld) [#/Vol] 4.22 10*6/uL Low 4.40-5.90 [facility] Comment on above: Performed By: #### H EMOG, CMP3, ETOH4 #### [facility] [address] [place], [place] WBC (Bld) [#/Vol] 7.4 10*3/uL Normal 3.6-10.7 [facility] Comment on above: Performed By: #### H EMOG, CMP3, ETOH4 #### [address] [address] [address] [place], [place] Vital Signs Date Time Vital Sign Value Performing Clinician Davida martin 06-14-2025 08:53-0400 Body height 180.[address] Tana Farmer MD Work Phone: [facility] 06-14-2025 08:53-0400 Body mass index (BMI) [Ratio] 25.4 kg/m2 Dr. Tana Farmer MD Work Phone: [facility] 06-14-2025 08:53-0400 Body temperature 97.9 [degF] Dr. Tana Farmer MD Work Phone: [facility] 06-14-2025 08:53-0400 Body weight 82.[address] Tana Farmer MD Work Phone: [facility] 06-14-2025 08:53-0400 Diastolic blood pressure 62 mm[Hg] Dr. Tana Farmer MD Work Phone: [facility] 06-14-2025 08:53-0400 Heart rate 88 /min Dr. Tana Farmer MD Work Phone: [facility] 06-14-2025 08:53-0400 Respiratory rate 16 /min Dr. Tana Farmer MD Work Phone: [facility] 06-14-2025 08:53-0400 SaO2% (BldA) [Mass fraction] 97 % Dr. Tana Farmer MD Work Phone: [facility] 06-14-2025 08:53-0400 Systolic blood pressure 108 mm[Hg] Dr. Tana Farmer MD Work Phone: [facility] 06-07-2025 15:05-0400 Body temperature 97.81 [degF] Sindy RN Work Phone: [facility] 06-07-2025 15:05-0400 Diastolic blood pressure 82 mm[Hg] Sindy RN Work Phone: [facility] 06-07-2025 15:05-0400 Heart rate 84 /min Sindy RN Work Phone: [facility] 06-07-2025 15:05-0400 Respiratory rate 16 /min Sindy Most RN Work Phone: [facility] 06-07-2025 15:05-0400 SaO2% (BldA) [Mass fraction] 98 % Sindy RN Work Phone: [facility] 06-07-2025 15:05-0400 Systolic blood pressure 136 mm[Hg] Sindy RN Work Phone: [facility] 05-30-2025 10:06-0400 Body temperature 98.6 [degF] Cristy Santoyo-Reddy PT Work Phone: [facility] 05-30-2025 10:06-0400 Diastolic blood pressure 60 mm[Hg] Cristy Messina PT Work Phone: [facility] 05-30-2025 10:06-0400 Heart rate 87 /min Cristy Messina PT Work Phone: [facility] 05-30-2025 10:06-0400 Respiratory rate 18 /min Cristy Messina PT Work Phone: [facility] 05-30-2025 10:06-0400 SaO2% (BldA) [Mass fraction] 95 % Cristy Messina PT Work Phone: [facility] 05-30-2025 10:06-0400 Systolic blood pressure 122 mm[Hg] Cristy Messina PT Work Phone: [facility] 05-29-2025 15:46-0400 Body temperature 97.39 [degF] Sindy Most RN Work Phone: [facility] 05-29-2025 15:46-0400 Diastolic blood pressure 66 mm[Hg] Sindy Most RN Work Phone: [facility] 05-29-2025 15:46-0400 Heart rate 92 /min Sindy Most RN Work Phone: [facility] 05-29-2025 15:46-0400 Respiratory rate 16 /min Sindy Most RN Work Phone: [facility] 05-29-2025 15:46-0400 SaO2% (BldA) [Mass fraction] 96 % Sindy Most RN Work Phone: [facility] 05-29-2025 15:46-0400 Systolic blood pressure 122 mm[Hg] Sindy Most RN Work Phone: [facility] 05-29-2025 10:15-0400 Diastolic blood pressure 70 mm[Hg] Dalila Gerstenslager OT Work Phone: [facility] 05-29-2025 10:15-0400 Heart rate 84 /min Dalila Gerstenslager O T Work Phone: [facility] 05-29-2025 10:15-0400 SaO2% (BldA) [Mass fraction] 94 % Dalila Gerstenslager OT Work Phone: [facility] 05-29-2025 10:15-0400 Systolic blood pressure 122 mm[Hg] Dalila Gerstenslager OT Work Phone: [facility] 05-29-2025 09:42-0400 Body temperature 98.1 [degF] Dalila Gerstenslager O T Work Phone: [facility] 05-25-2025 10:58-0400 Diastolic blood pressure 60 mm[Hg] Bradley Blackert [employer] Work Phone: [facility] 05-25-2025 10:58-0400 Systolic blood pressure 104 mm[Hg] Bradley Blackert [employer] Work Phone: [facility] 05-25-2025 10:52-0400 Heart rate 100 /min Bradley Blackert [employer] Work Phone: [facility] 05-25-2025 10:52-0400 Respiratory rate 20 /min Bradley Blackert [employer] Work Phone: [facility] 05-25-2025 10:52-0400 SaO2% (BldA) [Mass fraction] 95 % Bradley Blackert [employer] Work Phone: [facility] 05-24-2025 14:46-0400 Body temperature 98.1 [degF] Sindy Cesar RN Work Phone: [facility] 05-24-2025 14:46-0400 Diastolic blood pressure 66 mm[Hg] Sindy Cesar RN Work Phone: [facility] 05-24-2025 14:46-0400 Heart rate 64 /min Sindy Cesar RN Work Phone: [facility] 05-24-2025 14:46-0400 Respiratory rate 20 /min Sindymarycruz Cesar RN Work Phone: [facility] 05-24-2025 14:46-0400 SaO2% (BldA) [Mass fraction] 96 % Sindy Cesar RN Work Phone: [facility] 05-24-2025 14:46-0400 Systolic blood pressure 114 mm[Hg] Sindy Cesar RN Work Phone: [facility] 05-22-2025 13:59-0400 Heart rate 85 /min Amber [address] L[address]/L Work Phone: [facility] Comment on above: post tasks 05-22-2025 13:59-0400 SaO2% (BldA) [Mass fraction] 94 % Amber [address] LANE/L Work Phone: [facility] Comment on above: post tasks 05-22-2025 13:30-0400 Body temperature 98.4 [degF] Amber [address] LANE/L Work Phone: [facility] 05-22-2025 13:30-0400 Diastolic blood pressure 66 mm[Hg] Amber [address] LANE/L Work Phone: [facility] 05-22-2025 13:30-0400 Respiratory rate 16 /min Amber [address] LANE/L Work Phone: [facility] 05-22-2025 13:30-0400 Systolic blood pressure 122 mm[Hg] Amber [address] LANE/L Work Phone: [facility] 05-18-2025 11:32-0400 Diastolic blood pressure 64 mm[Hg] Daina Te OT/L Work Phone: [facility] 05-18-2025 11:32-0400 Heart rate 102 /min Daina Te OT/L Work Phone: [facility] Comment on above: following mobility and transfers 05-18-2025 11:32-0400 Respiratory rate 18 /min Daina Te OT/L Work Phone: [facility] 05-18-2025 11:32-0400 SaO2% (BldA) [Mass fraction] 96 % Daina Te OT/L Work Phone: [facility] 05-18-2025 11:32-0400 Systolic blood pressure 118 mm[Hg] Daina Te OT/L Work Phone: [facility] 05-18-2025 11:12-0400 Body temperature 98.91 [degF] Daina Te OT/L Work Phone: [facility] 05-17-2025 15:29-0400 Body temperature 98.91 [degF] Sindy Cesar RN Work Phone: [facility] 05-17-2025 15:29-0400 Diastolic blood pressure 60 mm[Hg] Sindy Cesar RN Work Phone: [facility] 05-17-2025 15:29-0400 Heart rate 80 /min Sindy Cesar RN Work Phone: [facility] 05-17-2025 15:29-0400 Respiratory rate 20 /min Sindymarycruz Cesar RN Work Phone: [facility] 05-17-2025 15:29-0400 SaO2% (BldA) [Mass fraction] 95 % Sindymarycruz Cesar RN Work Phone: [facility] 05-17-2025 15:29-0400 Systolic blood pressure 114 mm[Hg] Sindy Cesar RN Work Phone: [facility] 05-17-2025 12:32-0400 Heart rate 78 /min Keven Townsendfener PT Work Phone: [facility] 05-17-2025 12:32-0400 SaO2% (BldA) [Mass fraction] 95 % Keven Kristianfener PT Work Phone: [facility] 05-17-2025 12:00-0400 Body temperature 98.6 [degF] Keven Townsendfener PT Work Phone: [facility] 05-17-2025 12:00-0400 Diastolic blood pressure 62 mm[Hg] Keven Glover PT Work Phone: [facility] 05-17-2025 12:00-0400 Respiratory rate 16 /min Keven Fairer PT Work Phone: [facility] 05-17-2025 12:00-0400 Systolic blood pressure 116 mm[Hg] Keven Fairer PT Work Phone: [facility] 05-11-2025 16:59-0400 Body height 180.[address] Tana Farmer MD Work Phone: [facility] 05-11-2025 16:59-0400 Body mass index (BMI) [Ratio] 25.9 kg/m2 Dr. Tana Farmer MD Work Phone: [facility] 05-11-2025 16:59-0400 Body temperature 96.2 [degF] Dr. Tana Farmer MD Work Phone: [facility] 05-11-2025 16:59-0400 Body weight 84.[address] Tana Farmer MD Work Phone: [facility] 05-11-2025 16:59-0400 Diastolic blood pressure 82 mm[Hg] Dr. Tana Farmer MD Work Phone: [facility] 05-11-2025 16:59-0400 Heart rate 81 /min Dr. Tana Farmer MD Work Phone: [facility] 05-11-2025 16:59-0400 Respiratory rate 16 /min Dr. Tana Farmer MD Work Phone: [facility] 05-11-2025 16:59-0400 SaO2% (BldA) [Mass fraction] 99 % Dr. Tana Farmer MD Work Phone: [facility] 05-11-2025 16:59-0400 Systolic blood pressure 122 mm[Hg] Dr. Tana Farmer MD Work Phone: [facility] 05-10-2025 16:57-0400 Body temperature 99.3 [degF] Sindymarycruz Cesar RN Work Phone: [facility] 05-10-2025 16:57-0400 Diastolic blood pressure 62 mm[Hg] Sindymarycruz Cesar RN Work Phone: [facility] 05-10-2025 16:57-0400 Heart rate 84 /min Sindymarycruz Cesar RN Work Phone: [facility] 05-10-2025 16:57-0400 Respiratory rate 16 /min Sindymarycruz Cesar RN Work Phone: [facility] 05-10-2025 16:57-0400 SaO2% (BldA) [Mass fraction] 92 % Sindymarycruz Cesar RN Work Phone: [facility] 05-10-2025 16:57-0400 Systolic blood pressure 118 mm[Hg] Sindymarycruz Cesar RN Work Phone: [facility] 05-07-2025 14:50-0400 Body height 180.[address] Tana Farmer MD Work Phone: [facility] 05-07-2025 14:50-0400 Body mass index (BMI) [Ratio] 26.4 kg/m2 Dr. Tana Farmer MD Work Phone: [facility] 05-07-2025 14:50-0400 Body temperature 99.3 [degF] Dr. Tana Farmer MD Work Phone: [facility] 05-07-2025 14:50-0400 Body weight [address] Tana Farmer MD Work Phone: [facility] 05-07-2025 14:50-0400 Diastolic blood pressure 65 mm[Hg] Dr. Tana Farmer MD Work Phone: [facility] 05-07-2025 14:50-0400 Heart rate 83 /min Dr. Tana Farmer MD Work Phone: [facility] 05-07-2025 14:50-0400 Respiratory rate 16 /min Dr. Tana Farmer MD Work Phone: [facility] 05-07-2025 14:50-0400 SaO2% (BldA) [Mass fraction] 95 % Dr. Tana Farmer MD Work Phone: [facility] 05-07-2025 14:50-0400 Systolic blood pressure 115 mm[Hg] Dr. Tana Farmer MD Work Phone: [facility] 05-05-2025 12:58-0400 Body height 180.3 cm Sindymarycruz Cesar RN Work Phone: [facility] 05-05-2025 12:58-0400 Body mass index (BMI) [Ratio] 25.8 kg/m2 Sindymarycruz Cesar RN Work Phone: [facility] 05-05-2025 12:58-0400 Body temperature 99.5 [degF] Sidny RN Work Phone: [facility] 05-05-2025 12:58-0400 Body weight 83.92 kg Sindymarycruz Cesar RN Work Phone: [facility] 05-05-2025 12:58-0400 Diastolic blood pressure 58 mm[Hg] Sindyyazmin Cesar RN Work Phone: [facility] 05-05-2025 12:58-0400 Heart rate 80 /min Sindy Most RN Work Phone: [facility] 05-05-2025 12:58-0400 Respiratory rate 20 /min Sindy Most RN Work Phone: [facility] 05-05-2025 12:58-0400 SaO2% (BldA) [Mass fraction] 92 % Sindymarycruz Cesar RN Work Phone: [facility] 05-05-2025 12:58-0400 Systolic blood pressure 112 mm[Hg] Sindymarycruz Cesar RN Work Phone: [facility] 04-07-2025 23:23-0400 Body temperature 98 [degF] Dr. Tana Farmer MD Work Phone: [facility] 04-07-2025 23:23-0400 Diastolic blood pressure 82 mm[Hg] Dr. Tana Farmer MD Work Phone: [facility] 04-07-2025 23:23-0400 Heart rate 62 /min Dr. Tana Farmer MD Work Phone: [facility] 04-07-2025 23:23-0400 Respiratory rate 18 /min Dr. Tana Farmer MD Work Phone: [facility] 04-07-2025 23:23-0400 SaO2% (BldA) [Mass fraction] 91 % Dr. Tana Farmer MD Work Phone: [facility] 04-07-2025 23:23-0400 Systolic blood pressure 128 mm[Hg] Dr. Tana Farmer MD Work Phone: [facility] 04-07-2025 19:30-0400 Body height 180.[address] Tana Farmer MD Work Phone: [facility] 04-07-2025 19:30-0400 Body mass index (BMI) [Ratio] 28.9 kg/m2 Dr. Tana Farmer MD Work Phone: [facility] 04-07-2025 19:30-0400 Body weight [address] Tana Farmer MD Work Phone: [facility] 03-30-2025 10:34-0400 Diastolic blood pressure 53 mm[Hg] Dr. Tana Farmer MD Work Phone: [facility] 03-30-2025 10:34-0400 Heart rate 77 /min Dr. Tana Farmer MD Work Phone: [facility] 03-30-2025 10:34-0400 Respiratory rate 18 /min Dr. Tana Farmer MD Work Phone: [facility] 03-30-2025 10:34-0400 Systolic blood pressure 103 mm[Hg] Dr. Tana Farmer MD Work Phone: [facility] 03-24-2025 11:02-0400 Body height 180.[address] Tana Farmer MD Work Phone: [facility] 03-24-2025 11:02-0400 Body mass index (BMI) [Ratio] 30.6 kg/m2 Dr. Tana Farmer MD Work Phone: [facility] 03-24-2025 11:02-0400 Body temperature 99.1 [degF] Dr. Tana Farmer MD Work Phone: [facility] 03-24-2025 11:02-0400 Body weight 99.[address] Tana Farmer MD Work Phone: [facility] 03-24-2025 11:02-0400 Diastolic blood pressure 42 mm[Hg] Dr. Tana Farmer MD Work Phone: [facility] 03-24-2025 11:02-0400 Heart rate 89 /min Dr. Tana Farmer MD Work Phone: [facility] 03-24-2025 11:02-0400 Respiratory rate 16 /min Dr. Tana Farmer MD Work Phone: [facility] 03-24-2025 11:02-0400 SaO2% (BldA) [Mass fraction] 94 % Dr. Tana Farmer MD Work Phone: [facility] 03-24-2025 11:02-0400 Systolic blood pressure 98 mm[Hg] Dr. Tana Farmer MD Work Phone: [facility] 03-15-2025 15:07-0400 Body temperature 98.01 [degF] Jensen Butson DO Work Phone: [facility] 03-15-2025 15:07-0400 Diastolic blood pressure 75 mm[Hg] Jensen Butson DO Work Phone: [facility] 03-15-2025 15:07-0400 Heart rate 84 /min Jensen Butson DO Work Phone: [facility] 03-15-2025 15:07-0400 SaO2% (BldA) [Mass fraction] 98 % Jensen Butson DO Work Phone: [facility] 03-15-2025 15:07-0400 Systolic blood pressure 120 mm[Hg] Jensen Butson DO Work Phone: [facility] 03-15-2025 08:40-0400 Respiratory rate 16 /min Jensen Butson DO Work Phone: [facility] 03-15-2025 05:00-0400 Body mass index (BMI) [Ratio] 32.04 kg/m2 Jensen Butson DO Work Phone: [facility] 03-15-2025 05:00-0400 Body weight 104.2 kg Jensen Butson DO Work Phone: [facility] 03-14-2025 11:03-0400 Body height 180.3 cm Jensen Butson DO Work Phone: [facility] 12-23-2024 09:45-0500 Body mass index (BMI) [Ratio] 30.5 kg/m2 Dr. Tana Farmer MD Work Phone: [facility] 12-23-2024 09:45-0500 Body temperature 97.2 [degF] Dr. Tana Farmer MD Work Phone: [facility] 12-23-2024 09:45-0500 Body weight 99.[address] Tana Farmer MD Work Phone: [facility] 12-23-2024 09:45-0500 Diastolic blood pressure 74 mm[Hg] Dr. Tana Farmer MD Work Phone: [facility] 12-23-2024 09:45-0500 Heart rate 77 /min Dr. Tana Farmer MD Work Phone: [facility] 12-23-2024 09:45-0500 Respiratory rate 18 /min Dr. Tana Farmer MD Work Phone: [facility] 12-23-2024 09:45-0500 SaO2% (BldA) [Mass fraction] 97 % Dr. Tana Farmer MD Work Phone: [facility] 12-23-2024 09:45-0500 Systolic blood pressure 109 mm[Hg] Dr. Tana Farmer MD Work Phone: [facility] 12-16-2024 09:04-0500 Body mass index (BMI) [Ratio] 31.9 kg/m2 Dr. Tana Farmer MD Work Phone: [facility] 12-16-2024 09:04-0500 Body temperature 98.1 [degF] Dr. Tana Farmer MD Work Phone: [facility] 12-16-2024 09:04-0500 Body weight 103.[address] Tana Farmer MD Work Phone: [facility] 12-16-2024 09:04-0500 Diastolic blood pressure 60 mm[Hg] Dr. Tana Farmer MD Work Phone: [facility] 12-16-2024 09:04-0500 Heart rate 78 /min Dr. Tana Farmer MD Work Phone: [facility] 12-16-2024 09:04-0500 Respiratory rate 16 /min Dr. Tana Farmer MD Work Phone: [facility] 12-16-2024 09:04-0500 SaO2% (BldA) [Mass fraction] 98 % Dr. Tana Farmer MD Work Phone: [facility] 12-16-2024 09:04-0500 Systolic blood pressure 130 mm[Hg] Dr. Tana Farmer MD Work Phone: [facility] 09-20-2024 10:57-0400 Body temperature 97.7 [degF] Christian Cesar [employer]CASTING [employer]QUIP[employer] MECH[employer]IC Work Phone: [facility] 09-20-2024 10:57-0400 Body weight 100 kg Christian Guerrero [employer]GET[employer]CASTING EQUIPMENT MECHANIC Work Phone: [facility] 09-20-2024 10:57-0400 Diastolic blood pressure 77 mm[Hg] Christian Cesar [employer]GET[employer].BROADCASTING EQUIPMENT MECHANIC Work Phone: [facility] 09-20-2024 10:57-0400 Heart rate 77 /min Christian Cesar [employer]GET[employer].BROADCASTING EQUIPMENT MECHANIC Work Phone: [facility] 09-20-2024 10:57-0400 Respiratory rate 20 /min Christian Cesar [employer] VEGET[employer].BROADCASTING EQUIPMENT MECHANIC Work Phone: [facility] 09-20-2024 10:57-0400 SaO2% (BldA) [Mass fraction] 98 % Christian Cesar [employer]GET[employer].BROADCASTING EQUIPMENT MECHANIC Work Phone: [facility] 09-20-2024 10:57-0400 Systolic blood pressure 117 mm[Hg] Christian COOK [employer]GET[employer].BROADCASTING EQUIPMENT MECHANIC Work Phone: [facility] 06-14-2024 09:24-0400 Body temperature 98.01 [degF] Alisha Lagos APRN.BROADCASTING EQUIPMENT MECHANIC Work Phone: [facility] 06-14-2024 09:24-0400 Body weight 102 kg Alisha Lagos APRN.BROADCASTING EQUIPMENT MECHANIC Work Phone: [facility] 06-14-2024 09:24-0400 Diastolic blood pressure 80 mm[Hg] Alisha Lagos APRN.BROADCASTING EQUIPMENT MECHANIC Work Phone: [facility] 06-14-2024 09:24-0400 Heart rate 79 /min Alisha Lagos APRN.BROADCASTING EQUIPMENT MECHANIC Work Phone: [facility] 06-14-2024 09:24-0400 Respiratory rate 20 /min Alisha Lagos APRN.BROADCASTING EQUIPMENT MECHANIC Work Phone: [facility] 06-14-2024 09:24-0400 SaO2% (BldA) [Mass fraction] 97 % Alisha Lagos APRN.BROADCASTING EQUIPMENT MECHANIC Work Phone: [facility] 06-14-2024 09:24-0400 Systolic blood pressure 120 mm[Hg] Alisha Lagos APRN.BROADCASTING EQUIPMENT MECHANIC Work Phone: [facility] 01-04-2024 10:15-0500 Body height 182.[address] Tana Farmer Work Phone: [facility] 01-04-2024 10:15-0500 Body mass index (BMI) [Ratio] 29.7 kg/m2 Dr. Tana Farmer Work Phone: [facility] 01-04-2024 10:15-0500 Body temperature 97.7 [degF] Dr. Tana Farmer Work Phone: [facility] 01-04-2024 10:15-0500 Body weight 99.[address] Tana Farmer Work Phone: [facility] 01-04-2024 10:15-0500 Diastolic blood pressure 60 mm[Hg] Dr. Tana Farmer Work Phone: [facility] 01-04-2024 10:15-0500 Heart rate 80 /min Dr. Tana Farmer Work Phone: [facility] 01-04-2024 10:15-0500 Respiratory rate 16 /min Dr. Tana Farmer Work Phone: [facility] 01-04-2024 10:15-0500 SaO2% (BldA) [Mass fraction] 98 % Dr. Tana Farmer Work Phone: [facility] 01-04-2024 10:15-0500 Systolic blood pressure 124 mm[Hg] Dr. Tana Farmer Work Phone: [facility] 09-30-2023 11:23-0500 Body height 182.[address] Tana Farmer Work Phone: [facility] 09-30-2023 11:23-0500 Body mass index (BMI) [Ratio] 24.8 kg/m2 Dr. Tana Farmer Work Phone: [facility] 09-30-2023 11:23-0500 Body temperature 97.6 [degF] Dr. Tana Farmer Work Phone: [facility] 09-30-2023 11:23-0500 Body weight 83.[address] Tana Farmer Work Phone: [facility] 09-30-2023 11:23-0500 Diastolic blood pressure 93 mm[Hg] Dr. Tana Farmer Work Phone: [facility] 09-30-2023 11:23-0500 Heart rate 102 /min Dr. Tana Farmer Work Phone: [facility] 09-30-2023 11:23-0500 Respiratory rate 16 /min Dr. Tana Farmer Work Phone: [facility] 09-30-2023 11:23-0500 SaO2% (BldA) [Mass fraction] 99 % Dr. Tana Farmer Work Phone: [facility] 09-30-2023 11:23-0500 Systolic blood pressure 149 mm[Hg] Dr. Tana Farmer Work Phone: [facility] 08-26-2023 13:50-0400 Body mass index (BMI) [Ratio] 27.6 kg/m2 Dr. Tana Farmer Work Phone: [facility] 08-26-2023 13:50-0400 Body temperature 98.4 [degF] Dr. Tana Farmer Work Phone: [facility] 08-26-2023 13:50-0400 Body weight 92.[address] Tana Farmer Work Phone: [facility] 08-26-2023 13:50-0400 Diastolic blood pressure 72 mm[Hg] Dr. Tana Farmer Work Phone: [facility] 08-26-2023 13:50-0400 Heart rate 85 /min Dr. Tana Farmer Work Phone: [facility] 08-26-2023 13:50-0400 Respiratory rate 16 /min Dr. Tana Farmer Work Phone: [facility] 08-26-2023 13:50-0400 SaO2% (BldA) [Mass fraction] 97 % Dr. Tana Farmer Work Phone: [facility] 08-26-2023 13:50-0400 Systolic blood pressure 108 mm[Hg] Dr. Tnaa Farmer Work Phone: [facility] 07-30-2023 14:13-0400 Body height 182.[address] Tana Farmer Work Phone: [facility] 07-30-2023 14:13-0400 Body mass index (BMI) [Ratio] 27.1 kg/m2 Dr. Tana Farmer Work Phone: [facility] 07-30-2023 14:13-0400 Body temperature 96.1 [degF] Dr. Tana Farmer Work Phone: [facility] 07-30-2023 14:13-0400 Body weight 90.[address] Tana Farmer Work Phone: [facility] 07-30-2023 14:13-0400 Diastolic blood pressure 66 mm[Hg] Dr. Tana Farmer Work Phone: [facility] 07-30-2023 14:13-0400 Heart rate 85 /min Dr. Tana Farmer Work Phone: [facility] 07-30-2023 14:13-0400 Respiratory rate 18 /min Dr. Tana Farmer Work Phone: [facility] 07-30-2023 14:13-0400 SaO2% (BldA) [Mass fraction] 98 % Dr. Tana Farmer Work Phone: [facility] 07-30-2023 14:13-0400 Systolic blood pressure 112 mm[Hg] Dr. Tana Farmer Work Phone: [facility] 07-18-2023 11:56-0400 Body temperature 98.2 [degF] Dr. Tana Farmer Work Phone: [facility] 07-18-2023 11:56-0400 Diastolic blood pressure 61 mm[Hg] Dr. Tana Farmer Work Phone: [facility] 07-18-2023 11:56-0400 Heart rate 95 /min Dr. Tana Farmer Work Phone: [facility] 07-18-2023 11:56-0400 Respiratory rate 18 /min Dr. Tana Farmer Work Phone: [facility] 07-18-2023 11:56-0400 SaO2% (BldA) [Mass fraction] 98 % Dr. Tana Farmer Work Phone: [facility] 07-18-2023 11:56-0400 Systolic blood pressure 105 mm[Hg] Dr. Tana Farmer Work Phone: [facility] 07-18-2023 04:05-0400 Body mass index (BMI) [Ratio] 29 kg/m2 Dr. Tana Farmer Work Phone: [facility] 07-18-2023 04:05-0400 Body weight 97.[address] Tana Farmer Work Phone: [facility] 07-17-2023 13:18-0400 Body height 182.[address] Tana Farmer Work Phone: [facility] 07-16-2023 16:22-0400 Diastolic blood pressure 74 mm[Hg] Dr. Tana Farmer Work Phone: [facility] 07-16-2023 16:22-0400 Heart rate 96 /min Dr. Tana Farmer Work Phone: [facility] 07-16-2023 16:22-0400 Respiratory rate 18 /min Dr. Tana Farmer Work Phone: [facility] 07-16-2023 16:22-0400 SaO2% (BldA) [Mass fraction] 98 % Dr. Tana Farmer Work Phone: [facility] 07-16-2023 16:22-0400 Systolic blood pressure 117 mm[Hg] Dr. Tana Farmer Work Phone: [facility] 07-16-2023 15:44-0400 Body temperature 97.2 [degF] Dr. Tana Farmer Work Phone: [facility] 07-16-2023 12:13-0400 Body height 182.[address] Tana Farmer Work Phone: [facility] 07-16-2023 12:13-0400 Body mass index (BMI) [Ratio] 29.7 kg/m2 Dr. Tana Farmer Work Phone: [facility] 07-16-2023 12:13-0400 Body weight 99.[address] Tana Farmer Work Phone: [facility] 07-15-2023 09:48-0400 Body mass index (BMI) [Ratio] 29.4 kg/m2 Dr. Tana Farmer Work Phone: [facility] 07-15-2023 09:48-0400 Body temperature 98.9 [degF] Dr. Tana Farmer Work Phone: [facility] 07-15-2023 09:48-0400 Body weight 98.[address] Tana Farmer Work Phone: [facility] 07-15-2023 09:48-0400 Diastolic blood pressure 70 mm[Hg] Dr. Tana Farmer Work Phone: [facility] 07-15-2023 09:48-0400 Heart rate 96 /min Dr. Tana Farmer Work Phone: [facility] 07-15-2023 09:48-0400 Respiratory rate 16 /min Dr. Tana Farmer Work Phone: [facility] 07-15-2023 09:48-0400 SaO2% (BldA) [Mass fraction] 99 % Dr. Tana Farmer Work Phone: [facility] 07-15-2023 09:48-0400 Systolic blood pressure 120 mm[Hg] Dr. Tana Farmer Work Phone: [facility] 06-18-2023 14:23-0400 Body height 182.[address] Tana Farmer Work Phone: [facility] 06-18-2023 14:23-0400 Body mass index (BMI) [Ratio] 28 kg/m2 Dr. Tana Farmer Work Phone: [facility] 06-18-2023 14:23-0400 Body temperature 97.5 [degF] Dr. Tana Farmer Work Phone: [facility] 06-18-2023 14:23-0400 Body weight 93.[address] Tana Farmer Work Phone: [facility] 06-18-2023 14:23-0400 Diastolic blood pressure 64 mm[Hg] Dr. Tana Farmer Work Phone: [facility] 06-18-2023 14:23-0400 Heart rate 102 /min Dr. Tana Farmer Work Phone: [facility] 06-18-2023 14:23-0400 Respiratory rate 18 /min Dr. Tana Farmer Work Phone: [facility] 06-18-2023 14:23-0400 SaO2% (BldA) [Mass fraction] 99 % Dr. Tana Farmer Work Phone: [facility] 06-18-2023 14:23-0400 Systolic blood pressure 98 mm[Hg] Dr. Tana Farmer Work Phone: [facility] 06-11-2023 11:56-0400 Body temperature 98.49 [degF] Krislyn Aberegg PA Work Phone: [facility] 06-11-2023 11:56-0400 Body weight 96.07 kg Krislyn Aberegg PA Work Phone: [facility] 06-11-2023 11:56-0400 Diastolic blood pressure 88 mm[Hg] Krislyn Aberegg PA Work Phone: [facility] 06-11-2023 11:56-0400 Heart rate 97 /min Krislyn Aberegg PA Work Phone: [facility] 06-11-2023 11:56-0400 Respiratory rate 18 /min Krislyn Aberegg PA Work Phone: [facility] 06-11-2023 11:56-0400 SaO2% (BldA) [Mass fraction] 97 % Casecha garfield PA Work Phone: [facility] 06-11-2023 11:56-0400 Systolic blood pressure 138 mm[Hg] Danni Vargaskirsten PA Work Phone: [facility] 04-15-2022 14:19-0400 Body height 182.[address] Tana Farmer Work Phone: [facility] Work Phone: 04-15-2022 14:19-0400 Body mass index (BMI) [Ratio] 30.6 kg/m2 Dr. Tana Farmer Work Phone: [facility] Work Phone: 04-15-2022 14:19-0400 Body temperature 97.3 [degF] Dr. Tana Farmer Work Phone: [facility] Work Phone: 04-15-2022 14:19-0400 Body weight 102.[address] Tana Farmer Work Phone: [facility] Work Phone: 04-15-2022 14:19-0400 Diastolic blood pressure 84 mm[Hg] Dr. Tana Farmer Work Phone: [facility] Work Phone: 04-15-2022 14:19-0400 Heart rate 78 /min Dr. Tana Farmer Work Phone: [facility] Work Phone: 04-15-2022 14:19-0400 Respiratory rate 14 /min Dr. Tana Farmer Work Phone: [facility] Work Phone: 04-15-2022 14:19-0400 SaO2% (BldA) [Mass fraction] 97 % Dr. Tana Farmer Work Phone: [facility] Work Phone: 04-15-2022 14:19-0400 Systolic blood pressure 116 mm[Hg] Dr. Tana Farmer Work Phone: [facility] Work Phone: 01-08-2022 16:40-0500 Body mass index (BMI) [Ratio] 30.5 kg/m2 Dr. Tana Farmer Work Phone: [facility] Work Phone: 01-08-2022 16:40-0500 Body temperature 97.9 [degF] Dr. Tana Farmer Work Phone: [facility] Work Phone: 01-08-2022 16:40-0500 Body weight 102.[address] Tana Farmer Work Phone: [facility] Work Phone: 01-08-2022 16:40-0500 Diastolic blood pressure 80 mm[Hg] Dr. Tana Farmer Work Phone: [facility] Work Phone: 01-08-2022 16:40-0500 Heart rate 90 /min Dr. Tana Farmer Work Phone: [facility] Work Phone: 01-08-2022 16:40-0500 Respiratory rate 14 /min Dr. Tana Farmer Work Phone: [facility] Work Phone: 01-08-2022 16:40-0500 SaO2% (BldA) [Mass fraction] 97 % Dr. Tana Farmer Work Phone: [facility] Work Phone: 01-08-2022 16:40-0500 Systolic blood pressure 124 mm[Hg] Dr. Tana Farmer Work Phone: [facility] Work Phone: Encounters Encounter Date Encounter Type Care Provider Facility Start: 06-29-2025 End: 06-29-[address] Tana Farmer MD Work Phone: -Radiology [facility] Start: 06-29-2025 End: 06-29-[address] Jeronimo Parra MD -Radiology [facility] Work Phone: Start: 06-29-2025 End: 06-29-2025 ambulatory [facility] Facility:[facility] Start: 06-14-[address] Tana france MD -Physical Therapy Work Phone: Start: 06-14-2025 End: 06-14-[address] Tana Farmer MD -[facility] Work Phone: Start: 06-14-2025 End: 06-14-[address] aTna Farmer MD Work Phone: -[facility] Start: 06-14-2025 End: 06-14-2025 ambulatory [facility] Facility:[facility] Start: 06-09-[address] Tana france MD -Physical Therapy Work Phone: Start: 06-07-2025 End: 06-07-2025 Home visit Ida Dyer SENIOR HR GENERALIST Work Phone: [facility] Comment on above: [employer] COORDINATIO N SN AGENCY DC W VISIT Start: 06-02-2025 End: 06-02-2025 Home visit Ida Dyer SENIOR HR GENERALIST Work Phone: [facility] Comment on above: [employer]ORDIN[employer] N Start: 05-30-2025 End: 05-30-2025 Home visit Cristy Messina PT Work Phone: [facility] Comment on above: PT DISC DC W VISIT Start: 05-29-2025 End: 05-29-2025 Home visit Dalila Artur OT Work Phone: [facility] Comment on above: OT DISC DC W VISIT SN ROUTINE Start: 05-25-2025 End: 05-25-2025 Home visit Bradley Marrero [employer]SEMBLER Work Phone: [facility] Comment on above: [employer]SEM[employer] ROUTINE Start: 05-24-2025 End: 05-24-2025 Home visit Sindy Cesar RN Work Phone: [facility] Comment on above: SN ROUTINE Start: 05-22-2025 End: 05-22-2025 Home visit Amber Mary Anne L[address]/L Work Phone: [facility] Comment on above: LANE ROUTINE Start: 05-18-2025 End: 05-18-2025 Home visit Ida Dyer SENIOR HR GENERALIST Work Phone: [facility] Comment on above: [employer]IN[employer] N OT EVAL Start: 05-17-2025 End: 05-17-2025 Home visit Keven Glover PT Work Phone: [facility] Comment on above: PT EVAL [employer] N SN ROUTINE CARE COORDINATION Start: 05-16-2025 End: 05-16-2025 Home visit Anita Tang RN Work Phone: [facility] Comment on above: CARE COORDINATION Start: 05-15-2025 End: 05-15-2025 Home visit Dalila Siddiqui OT Work Phone: [facility] Comment on above: OT ATTEMPTED VISIT [employer]ORD[employer] N Start: 05-11-2025 Non-patient / Non-visit Neeru ramos [facility] Start: 05-11-2025 End: 05-11-[address] Tana Farmer MD Work Phone: [facility] Work Phone: Start: 05-11-2025 End: 05-11-[address] Tana Farmer MD -[facility] Work Phone: Start: 05-11-2025 End: 05-11-2025 ambulatory [facility] Facility:[facility] Start: 05-11-2025 End: 05-11-2025 Subsequent hospital visit by physician Caprice [facility] Daniel Barrett Work Phone: Radiology Comment on above: Closed fracture of m ultiple ribs of both sides, initial encounter [S22.43XA] Start: 05-11-2025 End: 06-05-2025 Telephone encounter Tana Farmer MD Work Phone: Radiology Comment on above: Orders Start: 05-11-2025 End: 05-11-2025 Home visit Ida Dyer SENIOR HR GENERALIST Work Phone: [facility] Comment on above: [employer] COORDIN[employer] N PT ATTEMPTED VISIT CARE COORDINATION Start: 05-10-2025 End: 05-10-2025 Home visit Sindy Cesar RN Work Phone: [facility] Comment on above: SN ROUTINE Start: 05-10-2025 End: 05-10-2025 Telephone encounter Tana Farmer MD Work Phone: [facility] Comment on above: Home Care (DELAY IN SERVICE) Start: 05-09-2025 End: 05-09-2025 Home visit Ida Dyer SENIOR HR GENERALIST Work Phone: [facility] Comment on above: GLOBAL HEAD ADVERTISER 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 Tana Farmer MD Work Phone: -Emergency Department Work Phone: Start: 05-05-2025 End: 05-05-2025 Home visit Ida Dyer SENIOR HR GENERALIST Work Phone: [facility] Comment on above: GLOBAL HEAD ADVERTISER SOLUTIONS CARE COORDINATIO N CARE COORDINATION GLOBAL HEAD ADVERTISER SOLUTIONS EVAL SN SOC Start: 05-04-2025 End: 05-04-2025 Telephone encounter Amy Edge VENUE COORDINATOR Work Phone: [facility] Comment on above: Home Care (SOC delay / APPROVAL NEEDED) Home Care (SOC sched uling - SOC 05/07) Start: 05-03-2025 End: 05-03-2025 Home visit Sindy Cesar RN Work Phone: [facility] Comment on above: SN ATTEMPTED VISIT Start: 04-27-2025 End: 04-28-2025 Telephone encounter Renee JERONIMO Work Phone: [facility] Comment on above: Home Care (Confirmat ion Call) Home Care ( to ahsan ramirez ) Start: 04-08-2025 End: 05-02-2025 Evaluation and management of inpatient TANA FARMER Facility:[facility] Start: 04-07-2025 End: 04-07-2025 Emergency department patient visit Dr. Tana Farmer MD Work Phone: -Emergency Department Work Phone: Start: 03-30-2025 End: 03-30-[address] Tana Farmer MD Work Phone: [facility] Work Phone: Start: 03-30-2025 End: 03-30-[address] Tana Farmer MD -Ultrasound, [facility] Work Phone: Start: 03-30-2025 End: 03-30-2025 ambulatory Tana Farmer Facility:[facility] Start: 03-24-2025 End: 03-24-[address] Tana Farmer MD -[facility] Work Phone: Start: 03-24-2025 End: 03-24-2025 ambulatory Efservando Farmer Facility:[facility] Start: 03-21-2025 End: 03-21-2025 Patient encounter procedure Brian Crawford BROADCASTING EQUIPMENT MECHANIC Work Phone: [facility] Comment on above: Procedure not aruna d out (Primary Dx) Start: 03-21-2025 End: 03-21-2025 ambulatory [facility] Start: 03-13-2025 End: 03-15-2025 Evaluation and management of inpatient Jesus Alberto Lindsay MD Work Phone: [facility] Medical Unit 3 Start: 03-11-2025 End: 03-11-2025 Emergency department patient visit [facility] Start: 03-07-2025 End: 03-07-2025 Emergency department patient visit [facility] Ryan FARMER Facility:[facility] Start: 02-24-2025 End: 02-24-2025 Emergency department patient visit [facility] Ryan FARMER Facility:[facility] Start: 12-23-2024 End: 12-23-[address] Huber Arellano MD -[facility] Work Phone: Start: 12-23-2024 End: 12-23-2024 ambulatory [facility] Start: 12-16-2024 End: 12-16-[address] Tana Farmer MD -Laboratory, [place] Start: 12-16-2024 End: 12-16-[address] Tana Farmer MD -[facility] Work Phone: Start: 12-16-2024 End: 12-16-2024 [facility] Start: 12-16-2024 End: 12-16-2024 ambulatory [facility] Facility:[facility] Start: 11-24-2024 End: 11-24-2024 Emergency department patient visit servando Farmer Facility:[facility] Start: 11-11-2024 [facility] Start: 10-26-2024 End: 10-26-2024 [facility] Start: 10-17-2024 End: 10-17-2024 [facility] Start: 09-20-2024 End: 09-20-2024 [facility] Start: 09-20-2024 End: 09-20-2024 ambulatory [facility] Facility:[facility] Start: 09-20-2024 End: 09-20-2024 Patient encounter procedure Christian Guerrero APRN.BROADCASTING EQUIPMENT MECHANIC Work Phone: [facility] Comment on above: Left inguinal pain ( Primary Dx) Start: 06-14-2024 End: 06-14-2024 ambulatory [facility] Ryan FARMER Facility:[facility] Start: 06-14-2024 End: 06-14-2024 Patient encounter procedure Alisha Lagos APRN.BROADCASTING EQUIPMENT MECHANIC Work Phone: [facility] Comment on above: Skin infection (Prim sandra Dx); Pain Start: 02-29-2024 End: 02-29-[address] Tana Farmer Work Phone: [facility] Work Phone: Start: 02-29-2024 End: 02-29-[address] Tana Farmer Work Phone: [facility]-Physical Therapy Work Phone: Start: 01-04-2024 End: 01-04-[address] Tana Farmer Work Phone: [facility] Work Phone: Start: 01-04-2024 End: 01-04-[address] Tana Farmer Work Phone: [facility]-Laboratory, [facility] Start: 01-04-2024 End: 01-04-[address] Tana Farmer Work Phone: [facility] Work Phone: Start: 12-28-[address] Geraldine Farmer Work Phone: [facility]-Occupational Therapy Work Phone: Start: 09-30-2023 End: 09-30-2023 Emergency department patient visit Dr. Tana Farmer Work Phone: [facility] Work Phone: Start: 09-30-2023 End: 09-30-2023 Dr. Tana Farmer Work Phone: [facility]-Emergency Department Work Phone: Start: 08-26-2023 End: 08-26-2023 Dr. Tana Farmer Work Phone: [facility] Work Phone: Start: 07-30-2023 End: 07-30-[address] Tana Farmer Work Phone: [facility] Work Phone: Start: 07-30-2023 End: 07-30-[address] Tana Farmer Work Phone: [facility] Work Phone: Start: 07-30-2023 End: 07-30-2023 Dr. Tana Farmer Work Phone: [facility] Work Phone: Start: 07-18-2023 Non-patient / Non-visit Dr. Fifi Farmer Work Phone: [facility] Start: 07-18-2023 Dr. Tana Farmer Work Phone: [facility] Start: 07-18-2023 Non-patient / Non-visit Dr. Fifi Farmer Work Phone: [facility] Work Phone: Start: 07-18-2023 Dr. Tana Farmer Work Phone: [facility] Work Phone: Start: 07-17-2023 Non-patient / Non-visit Dr. Fifi Farmer Work Phone: [facility] Start: 07-17-2023 Dr. Tana Farmer Work Phone: [facility] Start: 07-17-2023 Non-patient / Non-visit Dr. Fifi Farmer Work Phone: [facility] Work Phone: Start: 07-17-2023 Dr. Tana Farmer Work Phone: [facility] Work Phone: Start: 07-16-2023 Non-patient / Non-visit Dr. Fifi Farmer Work Phone: [facility] Start: 07-16-2023 End: 07-18-2023 Evaluation and management of inpatient Dr. Tana Farmer Work Phone: [facility] 3 Work Phone: Start: 07-16-2023 End: 07-18-2023 Dr. Tana Farmer Work Phone: [facility] Work Phone: Start: 07-15-2023 End: 07-15-[address] Tana Farmer Work Phone: [facility] Work Phone: Start: 07-15-2023 End: 07-15-[address] Tana Farmer Work Phone: [facility] Work Phone: Start: 07-15-2023 End: 07-15-2023 Dr. Tana Farmer Work Phone: [facility] Work Phone: Start: 06-19-2023 End: 06-19-[address] Tana Farmer Work Phone: [facility] Work Phone: Start: 06-19-2023 End: 06-19-[address] Tana Farmer Work Phone: [facility] [place] Start: 06-19-2023 End: 06-19-2023 Dr. Tana Farmer Work Phone: [facility] [place] Start: 06-18-2023 End: 06-18-[address] Tana Farmer Work Phone: [facility] Work Phone: Start: 06-18-2023 End: 06-18-[address] Tana Farmer Work Phone: [facility] Work Phone: Start: 06-18-2023 End: 06-18-2023 Dr. Tana Farmer Work Phone: [facility] Work Phone: Start: 06-11-2023 End: 06-11-2023 Patient encounter procedure Danni COFFMAN Work Phone: [facility] Comment on above: Abrasion of right co rnea, initial encounter (Primary Dx) Start: 05-29-2023 Telephone encounter Carmine Torres Work Phone: Podiatry Comment on above: Appointment Start: 04-15-2022 End: 04-15-[address] Tana Farmer Work Phone: [facility] Start: 01-08-2022 End: 01-08-[address] Tana Farmer Work Phone: [facility] Start: 01-23-2021 End: 01-23-2021 Orders Only Rika Longmu Sullivan Work Phone: [facility] Start: 03-09-2019 End: 03-09-2019 Outside Orders Chauncey Baird Work Phone: [facility] [place] Start: 01-07-2019 Patient encounter procedure PROVIDER NOT IN SYSTEM [facility] Procedures Date Procedure Procedure Detail Performing Clinician Start: 06-29-2025 X-ray of chest posteroanterior view Dr. Tana Farmer MD Work Phone: Start: 06-14-2025 Assay of prostate specific antigen total Dr. Tana Farmer MD Work Phone: Comment on above: This test was performed using the [employer] tPSA method. Measured values of a patient sample can vary depending on the testing procedure used. PSA values determined on patient samples by different testing procedures cannot be used interchangeably. If there is a change in PSA assays while monitoring therapy, sequential testing should be performed to confirm baseline values. 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 FARMER Comment on above: Order Comment: Specimen Type: BLOOD SPEC IMENOrdering Facility: [facility] Address: [address] [place] [address] Performed By: #### T SCR ####[facility] BLOOD BANKCLIA [id number] [address] Start: 04-15-2025 Antibody screen TANA FARMER Comment on above: Order Comment: Specimen Type: BLOOD SPEC IMENOrdering Facility: [facility] Address: [address] [place] [address] Performed By: #### T SCR ####[facility] BLOOD BANKCLIA [id number] [address] Start: 04-08-2025 Antibody screen TANA FARMER Comment on above: Order Comment: Specimen Type: BLOOD SPEC IMENOrdering Facility: [facility] Address: [address] [place] [address] Performed By: #### T SCR ####[facility] BLOOD BANKCLIA [id number] [address] Start: 04-07-2025 CT cervical spine without contrast [...] misc body fluids w/differential count Daxa Rubio CNP Work Phone: Start: 03-14-2025 Cul bact xcpt urine blood/stool aerobic isol Daxa Rubio CNP Work Phone: Start: 03-14-2025 Level iv surg pathology gross&microscopic exam Daxa Rubio CNP Work Phone: Start: 03-14-2025 Other source albumin quantitative each specimen Daxa Rubio CNP Work Phone: Start: 03-14-2025 Protein total xcpt refractometry oth src Daxa Rubio CNP Work Phone: Start: 03-14-2025 Electrocardiogram [facility] Work Phone: Start: 03-14-2025 Comprehensive metabolic panel Daxa Rubio CNP Work Phone: Start: 03-13-2025 Drug tst prsmv instrmnt chem analyzers pr date Daxa Rubio CNP Work Phone: Start: 03-13-2025 Urnls dip stick/tablet reagent auto microscopy Daxa Rubio CNP Work Phone: Start: 03-13-2025 Dup-scan xtr veins complete bilateral study Yumiko Nath PA-C Work Phone: Start: 03-13-2025 Ecg routine ecg w/least 12 lds trcg only w/o i&r Yumiko Nath PA-C Work Phone: Start: 03-13-2025 Radiologic exam chest single view Sandhya mercedes Nath PA-C Work Phone: Start: 03-13-2025 Blood ethanol measurement Daxa Rubio BROADCASTING EQUIPMENT MECHANIC Work Phone: Start: 03-13-2025 Comprehensive metabolic panel Yumiko Nath PA-C Work Phone: Start: 03-13-2025 CARRILLO TOP [...] Treatment Date Care Activity Detail Author Start: 05-11-2028 Diabetes Screening Diabetes Screening [facility] Start: 05-01-2028 Diabetes Screening Diabetes Screening [facility] Start: 04-28-2028 Diabetes Screening Diabetes Screening [facility] Start: 04-27-2028 Diabetes Screening Diabetes Screening [facility] Start: 03-15-2028 Diabetes Screening Diabetes Screening [facility] Start: 07-24-2025 Influenza vaccination [facility] Start: 06-14-2025 CBC W Auto Differential panel - Blood [facility] Start: 06-14-2025 Comprehensive metabolic 2000 panel - Serum or Plasma [facility] Start: 06-14-2025 Magnesium measurement [facility] Start: 06-14-2025 Prostate specific antigen measurement [facility] Start: 06-14-2025 Prothrombin time [facility] Start: 06-14-2025 Testosterone measurement [facility] Start: 06-14-2025 Thyroid stimulating hormone measurement [facility] Start: 05-07-2025 [facility] Start: 04-07-2025 [facility] Start: 03-24-2025 Patient referral [facility] Work Phone: Start: 07-24-2024 Covid-19 Vaccine ( season) Covid-19 Vaccine () [facility] Start: 07-24-2024 Influenza vaccination Influenza Vaccine (#1) [facility] Start: 07-04-2024 End: 07-04-2024 Patient encounter procedure 07/04/2024 10:45 AM EDT Office Visit Podiatry [address] [place] [address] Carmine Bill [address] [place] [address] Consult for great toe on right foot Podiatry Comment on above: Consult for great toe on right foot Start: 01-04-2024 Patient referral [facility] Work Phone: Start: 11-23-2023 Behavioral Health Screening Behavioral Health Screening [facility] Start: 09-30-2023 Application short arm splint forearm-hand static APPLY FOREARM SPLINT [facility] Start: 09-30-2023 [facility] Start: 08-26-2023 Patient referral [facility] Work Phone: Start: 07-24-2023 Covid-19 Vaccine () Covid-19 Vaccine () [facility] Start: 07-24-2023 Influenza vaccination INFLUENZA (#1) [facility] Start: 07-18-2023 Patient discharge [facility] Start: 07-17-2023 Anaerobic Culture Anaerobic Culture [facility] Start: 07-17-2023 Anaerobic microbial culture Anaerobic Culture [facility] Start: 07-17-2023 Body Fluid Culture Body Fluid Culture [facility] Start: 07-17-2023 [facility] Start: 07-16-2023 Procedure [facility] Start: 07-16-2023 Serum immunofixation [facility] Start: 07-16-2023 [facility] Start: 07-16-2023 Catheterization of vein [facility] Start: 07-16-2023 Following clinical pathway protocol [facility] Start: 07-16-2023 Ambulation without limitation [facility] Start: 07-16-2023 Assessment of risk of venous thromboembolism [facility] Start: 07-16-2023 Consultation [facility] Start: 07-16-2023 Insertion of catheter into peripheral vein [facility] Start: 07-16-2023 Measuring intake and output [facility] Start: 07-16-2023 Oxygen therapy [facility] Start: 07-16-2023 Providing care according to standard [facility] Start: 07-16-2023 Referral to gastroenterology service [facility] Start: 07-16-2023 Referral to occupational therapist [facility] Start: 07-16-2023 Referral to service [facility] Start: 07-16-2023 [facility] Start: 07-16-2023 Verification routine [facility] Start: 07-16-2023 Admission procedure [facility] Start: 07-16-2023 Consultation [facility] Start: 07-16-2023 Patient referral to dietitian [facility] Start: 07-15-2023 Assay of ammonia [facility] Start: 07-15-2023 Blood count complete auto&auto difrntl wbc [facility] Start: 07-15-2023 Collection venous blood venipuncture [facility] Start: 07-15-2023 Comprehensive metabolic panel [facility] Start: 06-18-2023 Patient referral [facility] Work Phone: Start: 11-23-2022 DEPRESSION ASSESSMENT DEPRESSION ASSESSMENT [facility] Start: 09-07-2021 COVID-19 VACCINE (3 - Moderna series) COVID-19 VACCINE (3 - Moderna series) [facility] Start: 2021 Pneumococcal Vaccine: 50+ (1 of 1 - PCV) Pneumococcal Vaccine: 50+ (1 of 1 - PCV) [facility] Start: 2021 SHINGRIX VACCINE (1 of 2) SHINGRIX VACCINE (1 of 2) [facility] Start: 07-24-2020 Influenza vaccination given Sequential Influenza Vaccine (#1) [facility] Start: 07-24-2019 Influenza vaccination INFLUENZA VACCINE (Season Ended) [facility] Start: 10-08-2016 History and physical examination, annual for health maintenance Wellness Visit [facility] Start: 02-20-2016 COLOGUARD (FIT-DNA) COLOGUARD (FIT-DNA) [facility] Start: 02-20-2016 Colonoscopy COLONOSCOPY [facility] Start: 02-20-2016 COLORECTAL CANCER SCREENING COLORECTAL CANCER SCREENING [facility] Start: 02-20-[address] COLONOGRAPHY [facility] Start: 02-20-2016 DIABETES SCREEN DIABETES SCREEN [facility] Start: 02-20-2016 Diabetes Screening Diabetes Screening [facility] Start: 02-20-2016 FECAL OCCULT BLOOD FECAL OCCULT BLOOD [facility] Start: 02-20-2016 Screening for malignant neoplasm of colon [facility] Start: 02-20-2016 SIGMOIDOSCOPY SIGMOIDOSCOPY [facility] Start: 2011 Fasting lipid profile LIPID SCREENING [facility] Start: 2006 Lipid panel Lipid Screening [facility] Start: 2006 LIPID SCREEN LIPID SCREEN [facility] Start: 1990 Hepatitis A Vaccine (1 of 2 - Risk 2-dose series) Hepatitis A Vaccine (1 of 2 - Risk 2-dose series) [facility] Start: 1990 Hepatitis B Vaccine (1 of 3 - 19+ 3-dose series) Hepatitis B Vaccine (1 of 3 - 19+ 3-dose series) [facility] Start: 1990 Pneumococcal Vaccine: 50+ (1 of 2 - PCV) Pneumococcal Vaccine: 50+ (1 of 2 - PCV) [facility] Start: 1990 Third diphtheria, tetanus and acellular pertussis (DTaP) vaccination TDAP (ADULT) [facility] Start: 1990 Urine microalbumin profile [facility] Start: 1989 Anxiety Screening Anxiety Screening [facility] Start: 1989 Depression Screening Depression Screening [facility] Start: 1989 Hepatitis C antibody, confirmatory test Hepatitis C Screening [facility] Start: 1989 HEPATITIS C SCREENING HEPATITIS C SCREENING [facility] Start: 1989 Hepatitis C screening Hepatitis C Screening [facility] Start: 1989 HIV SCREENING HIV SCREENING [facility] Start: 1989 HIV screening HIV Screening [facility] Start: 1989 Tetanus vaccination TETANUS [facility] Start: 1987 COVID-19 Vaccine (1 of 2) COVID-19 Vaccine (1 of 2) [facility] Start: 1986 HIV screening HIV Screening [facility] Start: 02-20-1984 HIV screening HIV SCREENING DISCUSSION [facility] Start: 1983 Adolescent depression screening assessment Depression Screening (PHQ9) [facility] Start: 1971 COVID-19 VACCINE (#1) COVID-19 VACCINE (#1) [facility] Start: 1971 HEPATITIS B (1 of 3 - 3-dose series) HEPATITIS B (1 of 3 - 3-dose series) [facility] Start: 1971 Prostate specific antigen measurement PSA Level [facility] Start: 1971 Tetanus vaccination Tetanus: Every 10yrs [facility] Alanine aminotransfe rase [Enzymatic activity/volume] in Serum or Plasma [facility] Albumin [Mass/volume ] in Serum or Plasma [facility] Albumin [Moles/volum e] in Serum or Plasma [facility] Albumin [Presence] i n Body fluid [facility] Albumin/Globulin ratio [facility] Alkaline phosphatase [Enzymatic activity/volume] in Serum or Plasma [facility] Alpha 1 antitrypsin [Mass/volume] in Serum or Plasma [facility] [id number]. tumor marker [Units/volume] in Serum or Plasma [facility] Amylase [Enzymatic activity/volume] in Body fluid [facility] Anion gap in Serum or Plasma [facility] Antibody to lupus La protein measurement [facility] Antibody to SS-A measurement [facility] Bacteria identified in Body fluid by Culture [facility] Bacteria identified in Unspecified specimen by Anaerobe culture [facility] Basic metabolic 2008 panel with ionized calcium - Serum or Plasma [facility] Bilirubin, total measurement [facility] Center Blood ammonia measurement [facility] Body Fluid Aerobic & Anaerobic Culture Body Fluid Aerobic & Anaerobic Culture Microbiology Routine 03/14/2025 9:33 AM EDT [facility] Work Phone: BUN/Creatinine ratio [facility] Calcium [Mass/volume ] in Serum or Plasma [facility] Cancer Ag 19-9 [Units/volume] in Serum or Plasma [facility] Carbon dioxide, tota l [Moles/volume] in Central venous blood [facility] Carcinoembryonic Ag [Mass/volume] in Serum or Plasma [facility] CBC W Auto Different ial panel - Blood [facility] Centromere protein B Ab [Units/volume] in Serum [facility] Ceruloplasmin [Mass/ volume] in Serum or Plasma [facility] Chromatin Ab [Units/ volume] in Serum or Plasma [facility] Comprehensive metabo lic 2000 panel - Serum or Plasma [facility] Copper [Moles/volume ] in Serum or Plasma [facility] Creatinine [Mass/vol ume] in Serum or Plasma [facility] CT Abdomen and Pelvi s W contrast IV [facility] Cytology report of B nidia fluid Cyto stain [facility] Cytomegalovirus IgM antibody assay [facility] DNA double strand Ab [Units/volume] in Serum [facility] Electrophoresis: [id number] [facility] Electrophoresis: fernando ma globulin [facility] Erythrocyte mean cor puscular volume determination [facility] Globulin measurement [facility] Glucose [Mass/volume ] in Serum or Plasma [facility] Hematocrit [Volume F raction] of Blood [facility] Hemoglobin [Mass/vol ume] in Blood [facility] Hepatitis A virus Ig M Ab [Presence] in Serum [facility] Hepatitis B core ant ibody measurement, IgM type [facility] Hepatitis B surface antigen measurement [facility] Hepatitis C antibody measurement [facility] IgA [Mass/volume] in Serum or Plasma [facility] IgG [Mass/volume] in Serum or Plasma [facility] IgM [Mass/volume] in Serum or Plasma [facility] INR in Blood by Coag ulation assay [facility] Dana-1 extractable nuc lear Ab [Units/volume] in Serum [facility] Lactoferrin [Presenc e] in Stool by Immunoassay [facility] Leukocytes [#/volume ] in Blood [facility] Magnesium measurement [facility] Mean corpuscular hem oglobin concentration determination [facility] Mean corpuscular hem oglobin determination [facility] Measurement of occul t blood in stool specimen using immunoassay [facility] Measurement of renal function [facility] Microscopic observat ion [Identifier] in Body fluid by Cyto stain [facility] Neutrophil count [facility] Neutrophil cytoplasm ic Ab.classic [Units/volume] in Serum [facility] Neutrophil percent differential count [facility] P-ANCA measurement [facility] Patient Education [facility] Work Phone: Patient referral [facility] Work Phone: End: 03-14-2025 Phosphatidylethanol Confirmation, Blood [facility] Work Phone: Comment on above: Once for 1 Occurrences starting 03/14/20 until 03/14/2025 Platelets [#/volume] in Blood [facility] Potassium measurement [facility] Protein electrophore sis panel - Serum or Plasma [facility] Prothrombin time [facility] Red blood cell count [facility] Red cell distributio n width determination [facility] SCL-70 extractable n uclear Ab [Units/volume] in Serum by Immunoassay [facility] Serum chloride measurement [facility] Serum protein electrophoresis [facility] Serum testosterone measurement [facility] Jacobs extractable nu clear Ab [Presence] in Serum [facility] Sodium measurement [facility] Testosterone Free [Mass/volume] in Serum or Plasma [facility] Thyroid stimulating hormone measurement [facility] Total protein measurement [facility] Urea nitrogen [Mass/ volume] in Serum or Plasma [facility] VR Paracentesis VR Paracentesis Imaging MARINO 03/14/2025 10:04 AM EDT [facility] Work Phone: XR Chest PA and Lateral XR CHEST 2V FRONTAL/LAT Radiology Routine Closed fracture of multiple ribs of both sides, initial encounter 05/11/2025 4:[address] [facility] Work Phone: [facility] Immunizations Immunization Date Immunization Notes Care Provider Corey ogden 06-09-2017 tuberculin skin test ; purified protein derivative solution, intradermal Rika Sullivan [facility] Payers Date Payer Category Payer Miscellaneous or Other [employer] [id number] 2024 Unknown [id number] 2024 Managed Care PPO (unspecified) [facility] P[facility] [id number] 2024 Unknown [id number] 2024 Self-pay [id number] 2022 Private Health Insurance [id number] 2022 Unknown [id number] 2022 Unknown [id number] 2016 Unknown [employer]LESTINO TIRADO xxxxxxxxxxxx 2016-Present [id number] 2014 Medicaid [id number] 2014 Medicaid [place] MANAGED M [place] MEDICAID [facility] [id number] 2014-Present [id number] 1971 Unknown [id number] .[id number]. 2.902 1971 Unknown [id number] ..840.1.515223.3.579. 2.903 1971 Unknown [id number] .840.1.224310.3.579. 2.900 Unknown [id number] Unknown [id number] Unknown [id number] Unknown [id number] Unknown [id number] .840.1.207515.3.579. 2.462 Unknown [id number] 2.840.1.225650.3.579. 2.462 Unknown [id number] 2.840.1.618141.3.579. 2.462 Unknown [id number] .840.1.031526.3.579. 2.462 Unknown [id number] .840.1.561074.3.579. 2.462 Unknown [id number] 2.840.1.919867.3.579. 2.462 Unknown [id number] 2.840.1.007345.3.579. 2.462 Unknown [id number] .840.1.743151.3.579. 2.462 Unknown [id number] 2.840.1.820428.3.579. 2.462 Unknown [id number] 2.840.1.766684.3.579. 2.462 Unknown [id number] 2.840.1.548386.3.579. 2.462 Unknown [id number] 2.840.1.161137.3.579. 2.462 Unknown [id number] 2.840.1.558524.3.579. 2.462 Unknown [id number] 2.840.1.926802.3.579. 2.462 Unknown [id number] 2.16840.1.474450.3.579. 2.462 Unknown [id number] 2.16840.1.385845.3.579. 2.462 Unknown [id number] 2.0.1.576108.3.579. 2.462 Unknown [id number] 2.0.1.131245.3.579. 2.462 Social History Date Type Detail Facility Start: 06-09-2017 End: 05-07-2025 Tobacco smoking status NHIS Never smoker [facility] Work Phone: Start: 03-29-2015 End: 06-09-2017 Tobacco use and exposure Current user [facility] Start: 06-09-2017 End: 04-08-2025 Alcohol intake Current drinker of alcohol (finding) [facility] Start: 1970 Sex Assigned At Not on file [facility] Start: 04-15-2022 End: 01-04-2024 Tobacco smoking status [facility] Unknown if ever smoked [facility] Start: 06-16-2019 Heavy [facility] Start: 06-16-2019 None [facility] Start: 06-16-2019 Spouse/ Significant Other [facility] Start: 1970 Sex Assigned At Male [facility] Start: 04-21-2013 Alcohol Comment daily, 12 beer a day, history of rehab [facility] Start: 06-11-2023 End: 02-25-2025 History of Social function [facility] Start: 06-11-2023 End: 02-25-2025 Tobacco use panel [facility] Has the [employer], or water [employer] threatened to shut off services in your home in past 12Mo Yes [facility] Within the last year , have you been afraid of your partner or ex-partner? No [facility] (I/We) worried wheth er (my/our) food would run out before (I/we) got money to buy more. Never true [facility] In the past 12 month s, has lack of transportation kept you from medical appointments or from getting medications? No [facility] Functional Status Date Assessment Result Facility 05-02-2025 Are you deaf, or do you have serious difficulty hearing No 05/02/2025 6:19 PM Gabriela Sexton RN No [facility] 05-02-2025 Are you blind, or do you have serious difficulty seeing, even when wearing glasses No 05/02/2025 6:19 PM Gabriela Sexton RN No [facility] 05-02-2025 Do you have serious difficulty walking or climbing stairs No 05/02/2025 6:19 PM Gabriela Sexton RN No [facility] 05-02-2025 Do you have difficul ty dressing or bathing No 05/02/2025 6:19 PM Gabriela Sexton RN [facility] 05-02-2025 Because of a physica l, mental, or emotional condition, do you have difficulty doing errands alone such as visiting a physician's office or shopping No 05/02/2025 6:19 PM Gabriela Sexton RN No [facility] 07-18-2023 Functional status Up ad silvia [facility] Work Phone: Mental Status Date Assessment Result Facility 05-07-2025 Cognitive function Voice/Name [facility] Work Phone: 05-02-2025 Because of a physica l, mental, or emotional condition, do you have serious difficulty concentrating, remembering, or making decisions No 05/02/2025 6:19 PM Gabriela Sexton RN No [facility] 04-07-2025 Cognitive function Level Of Cons ciousness Awake;Alert;Appropriate;Fol lows Commands [facility] Work Phone: 03-30-2025 Cognitive function Level Of Cons ciousness Awake;Alert;Appropriate [facility] Work Phone: 07-18-2023 Cognitive function Appropriate;Cooperativ e [facility] Work Phone: 07-17-2023 Cognitive function Awake;Alert;Appropriat e [facility] Work Phone: Clinical Notes 05-29-2023 to 06-29-2025 CARE COORDINATION - Ida DyerMARIBEL - 06/07/2025 2:45 PM EDTHH CARE COORDINATION - Ida Dyer MARIBEL - 06/07/2025 2:45 PM EDTHH SN Agency DC - Sindy Cesar, RN - 06/07/2025 2:41 PM EDT Note Date & Type Note Facility 06-29-2025 Radiology Diagnostic study note [facility] Imaging Services [address] [place], [place] [address] Ribs Uni Min 3V w/PA Chest MR#: [id number] Acct: [id number] Name: ARYAN VALLE Rep #: [id number] : 1970 M 55 From: Dmitry Dave MD PCP: Dr. Tana Farmer MD Status: R EG CLI Study:Ribs Uni Min 3V w/PA Chest Date of Exam : 06/29/25 Exam# [id number] Ordering Dr: Jeronimo Parra MD PROCEDURE: RIBS UNI MIN 3V W/PA CHEST 06/29/2025 REASON FOR EXAM: MULTIPLE FRACTURES OF RIBS, UNSPECIFIED SIDE, INITIAL ENCOUNTER F TECHNIQUE: RIBS UNI MIN 3V W/PA CHEST COMPARISON: Prior chest radiograph dated November 24, 2024 FINDINGS: Findings: There is evidence of a large right pleural effusion with the compressive atelectasis at the right lung base and right middle lobe. Other: There are multiple right-sided rib fractures in different stages of healing. The left lung is clear. RAD/Ribs Uni Min 3V w/PA Chest IMPRESSION: Multiple right-sided rib fractures. Large right pleural effusion with compressive atelectasis in the right middle and right lower lobes. Reading Location: [facility] CC: Dr. Tana Farmer MD; Dr. Jeronimo Parra MD ~ [employer]: Signed [facility] 06-07-2025 Miscellaneous Notes 06/07/25 2:53 PM SENIOR HR GENERALIST called the pt. and his phone went right to voicemail. documented in this encounter [facility] 06-07-2025 Patient's home Note 06/07/25 2:53 PM SENIOR HR GENERALIST called the pt. and his phone went right to voicemail. [facility] Work Phone: 06-07-2025 Miscellaneous Notes SITUATION: [facility] agency discharge visit completed today. only patient present during today's visit. patient reports the following: Allergies--reviewed Medications--reviewed current medications Falls--None BACKGROUND: Reason for Home Care: post traumatic rib fx with hemothorax ASSESSMENT: SN greeted at door by caregiver. Upon entrance patient found ambulating in the home. Patient appears in no acute distress. Patient/CG concerns verbalized today: pt reports that he had a call from [employer] this past week from someone who was refering to his falls after coming home and wanted to know if he had a spine xray. Pt reports that he was never told to have this done. Pt did call Dr Farmer's office to report this and a X ray has not been ordered to his knowledge. He will follow up with Dr Farmer's office next week. Vitals (see flow sheet for details): stable SN findings today: Pt ambulating in the apt. Pt reports that he still has increased pain with getting in and out of bed and with couging or sneezing but that pain at rest and ambulating on even sufaces is about 5/10. He is walkng without the walker and gait is stable. He reports that he has started OP therapy this week and will be going 3 x week. Pt understands dc from home health today. He has a foolow up appt with Dr Farmer next week. Pt is eating better, taking fluids well and reports that overall; he is feeling better and safe at home. R chest is healed. See intervention summary for education details and any skills performed. Specific SN discharge instructions: Continue your HEP as instructed. follow up with [employer] about your [employer] application. Patient encouraged to take all medication as ordered, eat a well-balanced diet and follow up with all physician appointments. NOMNC: Not required per insurance Discharged due to Goals met. Patient discharged from Home Care to: self-care RECOMMENDATION: Additional follow ups recommended: None Patient to follow up with Dr. Farmer for additional medical questions/concerns. documented in this encounter [facility] 06-07-2025 Patient's home Note SITUATION: [facility] agency discharge visit completed today. only patient present during today's visit. patient reports the following: Allergies--reviewed Medications--reviewed current medications Falls--None BACKGROUND: Reason for Home Care: post traumatic rib fx with hemothorax ASSESSMENT: SN greeted at door by caregiver. Upon entrance patient found ambulating in the home. Patient appears in no acute distress. Patient/CG concerns verbalized today: pt reports that he had a call from [employer] this past week from someone who was refering to his falls after coming home and wanted to know if he had a spine xray. Pt reports that he was never told to have this done. Pt did call Dr Farmer's office to report this and a X ray has not been ordered to his knowledge. He will follow up with Dr Farmer's office next week. Vitals (see flow sheet for details): stable SN findings today: Pt ambulating in the apt. Pt reports that he still has increased pain with getting in and out of bed and with couging or sneezing but that pain at rest and ambulating on even sufaces is about 5/10. He is walkng without the walker and gait is stable. He reports that he has started OP therapy this week and will be going 3 x week. Pt understands dc from home health today. He has a foolow up appt with Dr Farmer next week. Pt is eating better, taking fluids well and reports that overall; he is feeling better and safe at home. R chest is healed. See intervention summary for education details and any skills performed. Specific SN discharge instructions: Continue your HEP as instructed. follow up with [employer] about your [employer] application. Patient encouraged to take all medication as ordered, eat a well-balanced diet and follow up with all physician appointments. NOMNC: Not required per insurance Discharged due to Goals met. Patient discharged from Home Care to: self-care RECOMMENDATION: Additional follow ups recommended: None Patient to follow up with Dr. Farmer for additional medical questions/concerns. [facility] Work Phone: 06-02-2025 Telephone encounter Note No answer no voicemail. Rabia PEÑA [facility] 06-02-2025 Miscellaneous Notes No answer no voicemail. Rabia PEÑA Patient is requesting orders for CT of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 regarding phone call SENIOR HR GENERALIST received from the pt. documented in this encounter [facility] 05-15-2025 Patient's home Note 05/15/25 1:59 PM - 2:06 PM SENIOR HR GENERALIST received a phone call from the pt. He stated he wanted to know how it works if he would go into the hospital and see if he could go into a intermediate. SENIOR HR GENERALIST discussed with the pt. that he would need a PT and OT Evals regarding getting admitted into a intermediate for rehab. The pt. stated he needs to get better to go back to work. SENIOR HR GENERALIST discussed with the pt. that the PT and OT have tried to see him at home. The pt. stated he had several appointments the one day the OT wanted to visit. SENIOR HR GENERALIST asked the pt. if he feels he needs to go into a intermediate and he was not sure. SENIOR HR GENERALIST discussed with the pt. that he informed SENIOR HR GENERALIST that his PCP informed him to go to the hospital due to his incision where the tube was removed. The pt. is unsure if he will go to the ER and stated she has important appointments tomorrow. SENIOR HR GENERALIST discussed with the pt. that PT and OT can see him at home. The pt. wants to get stronger and stated his friend Dalila got his updated med list for him. SENIOR HR GENERALIST will continue to follow-up and coordinate with [employer]. 05/15/25 2:07 PM SENIOR HR GENERALIST spoke with Jem Zaman RN Case Manager regarding phone call SENIOR HR GENERALIST received from the pt. [facility] Work Phone: 05-15-2025 Miscellaneous Notes 05/15/25 10:03 AM - 10;07 AM SENIOR HR GENERALIST called the pt. regarding how he was doing and he stated he was not doing so great. The pt. stated he was going to call SENIOR HR GENERALIST today. The pt. stated he went to see his PCP last week and his PCP wanted him to go to the ER due to where they took out the tube and he had sutures did not look good. He stated the PCP also stated he could get admitted into the hospital and go into a intermediate. SENIOR HR GENERALIST asked the pt. about going into a intermediate. He stated that he has important phone calls to make today and tomorrow. He stated he plans to go to the ER tomorrow at [facility]. SENIOR HR GENERALIST informed the pt. that SENIOR HR GENERALIST made a referral to [facility] for [place] [facility] [place]aiver but that will take time to get the services under Waiver. SENIOR HR GENERALIST asked the pt. if his friend Dalila was assisting him and he stated she was there now. The pt. stated he was taking Antibiotics he had and stated his incision looks better then it did. He stated he would make his phone calls. SENIOR HR GENERALIST will continue to follow-up with him. 05/15/25 10:07 AM MARIBEL called Jem Zaman RN Case Manager regarding SENIOR HR GENERALIST phone call with the pt. and he is planning go to the ER tomorrow at [facility]. documented in this encounter [facility] 05-15-2025 Patient's home Note 05/15/25 10:03 AM - 10;07 AM SENIOR HR GENERALIST called the pt. regarding how he was doing and he stated he was not doing so great. The pt. stated he was going to call SENIOR HR GENERALIST today. The pt. stated he went to see his PCP last week and his PCP wanted him to go to the ER due to where they took out the tube and he had sutures did not look good. He stated the PCP also stated he could get admitted into the hospital and go into a intermediate. SENIOR HR GENERALIST asked the pt. about going into a intermediate. He stated that he has important phone calls to make today and tomorrow. He stated he plans to go to the ER tomorrow at [facility]. SENIOR HR GENERALIST informed the pt. that SENIOR HR GENERALIST made a referral to [facility] for [place] [facility] Waiver but that will take time to get the services under Waiver. SENIOR HR GENERALIST asked the pt. if his friend Dalila was assisting him and he stated she was there now. The pt. stated he was taking Antibiotics he had and stated his incision looks better then it did. He stated he would make his phone calls. SENIOR HR GENERALIST will continue to follow-up with him. 05/15/25 10:07 AM SENIOR HR GENERALIST called Jem Zaman ocean lifeguard regarding SENIOR HR GENERALIST phone call with the pt. and he is planning go to the ER tomorrow at [facility]. [facility] Work Phone: 05-11-2025 Telephone encounter Note Patient is requesting orders for CT of the lumbar. Patient stated he fell recently. Please advise. Thank you! [facility] 05-11-2025 History of Presen t illness Narrative Radiology Service Progress Note PATIENT NAME: Aryan Valle DATE OF SERVICE: May 11, 2025 TIME: 3:58 PM PATIENT IDENTITY VERIFICATION COMPLETED USING TWO (2) IDENTIFIERS: Name and Date of confirmed by patient verbally. FALL SCREENING: Has the patient had 2 falls in the last year or 1 fall with injury or currently using an Ambulatory Assistive Device (Walker, Cane, Wheelchair, Crutches, etc.)? No PATIENT GENDER DATA: Assigned male at PATIENT RELEVANT IMPLANT DATA REVIEWED: Not Applicable PATIENT PRESENTS WITH AN IMPLANTABLE OR ATTACHED RADIOLOGY ADMINISTRATOR: No RADIOLOGY DEPARTMENT: General X-ray: Exam(s) Completed: Chest X-Ray PERIPHERAL IV DATA: Not applicable SIGNED BY: Tony March May 11, 2025 3:58 PM documented in this encounter [facility] 05-11-2025 Note HNO ID: [id number] Author: MARISOL TIDWELL Tech Service: ? Author Type: Technologist Type: Progress Notes Filed: 05/11/2025 16:06 Note Text: Radiology Service Progress Note PATIENT NAME: Aryan Valle DATE OF SERVICE: May 11, 2025 TIME: 3:58 PM PATIENT IDENTITY VERIFICATION COMPLETED USING TWO (2) IDENTIFIERS: Name and Date of confirmed by patient verbally. FALL SCREENING: Has the patient had 2 falls in the last year or 1 fall with injury or currently using an Ambulatory Assistive Device (Walker, Cane, Wheelchair, Crutches, etc.)? No PATIENT GENDER DATA: Assigned male at PATIENT RELEVANT IMPLANT DATA REVIEWED: Not Applicable PATIENT PRESENTS WITH AN IMPLANTABLE OR ATTACHED RADIOLOGY ADMINISTRATOR: No RADIOLOGY DEPARTMENT: General X-ray: Exam(s) Completed: Chest X-Ray PERIPHERAL IV DATA: Not applicable SIGNED BY: Tony March May 11, 2025 3:58 PM [facility] 05-11-2025 Miscellaneous Notes 05/11/25 12:35 PM - 12:39 PM SENIOR HR GENERALIST called the pt. regarding how he was managing. He stated he has four appointments today. He stated he has to go for a chest x-ray, Cat scan, blood work and see . SENIOR HR GENERALIST asked the pt. how he was getting there and he stated his friend Dalila was taking him. SENIOR HR GENERALIST discussed intermediate placement and more help in the home. The pt. stated he would like to eventually be closer to where his mom lives. He discussed getting some adaptive equiopment in the home. SENIOR HR GENERALIST discussed with the pt. again [facility] Dciver for an Aide/Homemekr, Home Delivered Meals, ER Medical Alert. SENIOR HR GENERALIST discussed needing to be on Medicaid and the pt. stated he is on [place] Medicaid. SENIOR HR GENERALIST discussed she does not think the [place] he is in is Medicaid. The pt. would like a referral to [facility]. SENIOR HR GENERALIST stated she would continue to follow-up with him. 05/11/25 12:39 PM - 12;51 PM SENIOR HR GENERALIST called [facility] and spoke with Eleno regarding the pt. having [employer] NIRAV and the pt. stating this is Medicaid. Eleno stated it s through the [employer]. SENIOR HR GENERALIST asked if it was Medicaid and she stated again it was through the [employer]. She stated it was not Medicaid. 05/11/25 SENIOR HR GENERALIST made a referral for the pt. to [facility]. documented in this encounter [facility] 05-11-2025 Patient's home Note 05/11/25 12:35 PM - 12:39 PM SENIOR HR GENERALIST called the pt. regarding how he was managing. He stated he has four appointments today. He stated he has to go for a chest x-ray, Cat scan, blood work and see . SENIOR HR GENERALIST asked the pt. how he was getting there and he stated his friend Dalila was taking him. SENIOR HR GENERALIST discussed intermediate placement and more help in the home. The pt. stated he would like to eventually be closer to where his mom lives. He discussed getting some adaptive equiopment in the home. SENIOR HR GENERALIST [facility], Home Delivered Meals, ER Medical Alert. SENIOR HR GENERALIST discussed needing to be on Medicaid and the pt. stated he is on [place] Medicaid. SENIOR HR GENERALIST discussed she does not think the [place] he is in is Medicaid. The pt. would like a referral to [facility]. SENIOR HR GENERALIST stated she would continue to follow-up with him. 05/11/25 12:39 PM - 12;51 PM SENIOR HR GENERALIST called [employer] [place] and spoke with Eleno regarding the pt. having [employer] NIRAV and the pt. stating this is Medicaid. Eleno stated it s through the [employer]. SENIOR HR GENERALIST asked if it was Medicaid and she stated again it was through the [employer]. She stated it was not Medicaid. 05/11/25 SENIOR HR GENERALIST made a referral for the pt. to [facility]. [facility] Work Phone: 05-11-2025 Miscellaneous Notes SN placed call to Dr. Farmer's office, spoke with Lindsay. This SN reporting (as per primary visit nurse appointment on 05/10) at time of right chest tube site suture removal, area is red and swollen, no change of skin temperature. Patient's temp was 99.3. This is dfferent since last home nurse visit on 05/05. Patient reporting he had a fall on Thursday and went to ED to get checked out. According to the patient, The ED doctor looked at this area and said there was nothing of note at that time. This SN requesting that Dr. Farmer assess this area today during her office visit with the patient. Lindsay states she will send that message to the team. This SN call back number left with doctor's office [phone]. documented in this encounter [facility] 05-11-2025 Patient's home Note SN placed call to Dr. Farmer's office, spoke with Lindsay. This SN reporting (as per primary visit nurse appointment on 05/10) at time of right chest tube site suture removal, area is red and swollen, no change of skin temperature. Patient's temp was 99.3. This is dfferent since last home nurse visit on 05/05. Patient reporting he had a fall on Thursday and went to ED to get checked out. According to the patient, The ED doctor looked at this area and said there was nothing of note at that time. This SN requesting that Dr. Farmer assess this area today during her office visit with the patient. Lindsay states she will send that message to the team. This SN call back number left with doctor's office [phone]. [facility] Work Phone: 05-10-2025 Miscellaneous Notes SITUATION: [facility] routine visit completed today. friend also present during today's visit. patient reports the following: Allergies--reviewed Medications--reviewed current medications Falls--None BACKGROUND: Reason for Home Care: post traumatic rib fx ASSESSMENT: SN greeted at door by caregiver. Upon entrance patient found in chair Patient appears in no acute distress. Patient/CG concerns verbalized today: pt reports that he fell again on Thursday am at about 7 am while trying to adjust his ceiling fan in the living room. Vitals (see flow sheet for details): stable SN findings today: Pt sitting in recliner chair. Pt has much to report; he has obtained additional DME through a friend. He now has a bedside commode, a w/c, a fan in living room that can be moved to bedroom (with a remote) to prevent him getting up in am to turn off the living room cieling fan (this has caused all of his falls). Much discussion and instruction about the importance of any interventions that can prevent him from falling. Pt reports that he went to ED early Thursday am due to falling backwards while trying to adjust the ceiling fan in the living room early in the am when he is not fully awake. Pt is agreeable to turn the ceiling fan in living room off or on low and just use the portable fan that has a remote in the bedroom at night. He states that he gets hot and cold at night and the fan dries out my eyes and nose. This can be controlled at night with use of the portable fan and remote and pt agrees. Friend, Dalila, was present for today's vs and reports that she has been coming over every day to assist pt with home needs and is the person that arranged for the additional DME. He may also have access to a hospital bed through this person and this SN highly encourages this. Dalila reports that it will need a man with a truck and 4 guys to help move it up the steps; she and pt are working on this. It is noted that pt had all unsafe rugs removed as recommended in his apt. Physical assessment: Pt continues to be jaundiced, does not appear to be any more pronounced since SOC assessment. SN discussed the conversation with Dr Farmer's office with correctional case manager and pt is to follow up with Dr Parr as needed for a paracentesis. He thought that he needs to do this right now but he does not feel that a paracentesis is needed. Abdomen is soft and non distended at this time. Pt is having 3-4 loose stools per day and does not relate to this as being expected with his lactulose dose and expected for his liver disease. SN encouraged pt that this is typical, pt verbalizes understanding. Pt reports that he feels that IF he feels that he needs a paracentesis; he is going directly to [facility] in [place] as he felt that this was the best care for this. R chest tube suture removal: SN removed 3 sutures from R previous CT site and the area is red and swollen today. This was not noted on SOC assessement. Photo uploaded to chart. Pt denies increased discomfort. Pt with a low grade fever today. Clinical judgment was to remove sutures, dry clean dressing placed. Will have Nick Zaman RN communicate with Dr Farmer's office in am. Pt is scheduled for CXR, CT scan, labs and appt with Dr Farmer tomorrow. See intervention summary for education details. Patient demonstrated a need for further skilled SN services for chronic disease management & education, medication education, wound/skin care and safety. Current Discharge plan: self-care and family support RECOMMENDATION: Next visit to focus on (be specific): ?new orders from PCP appt, results of labs and xrays. documented in this encounter [facility] 05-10-2025 Patient's home Note SITUATION: [facility] routine visit completed today. friend also present during today's visit. patient reports the following: Allergies--reviewed Medications--reviewed current medications Falls--None BACKGROUND: Reason for Home Care: post traumatic rib fx ASSESSMENT: SN greeted at door by caregiver. Upon entrance patient found in chair Patient appears in no acute distress. Patient/CG concerns verbalized today: pt reports that he fell again on Thursday am at about 7 am while trying to adjust his ceiling fan in the living room. Vitals (see flow sheet for details): stable SN findings today: Pt sitting in recliner chair. Pt has much to report; he has obtained additional DME through a friend. He now has a bedside commode, a w/c, a fan in living room that can be moved to bedroom (with a remote) to prevent him getting up in am to turn off the living room cieling fan (this has caused all of his falls). Much discussion and instruction about the importance of any interventions that can prevent him from falling. Pt reports that he went to ED early Thursday am due to falling backwards while trying to adjust the ceiling fan in the living room early in the am when he is not fully awake. Pt is agreeable to turn the ceiling fan in living room off or on low and just use the portable fan that has a remote in the bedroom at night. He states that he gets hot and cold at night and the fan dries out my eyes and nose. This can be controlled at night with use of the portable fan and remote and pt agrees. Friend, Dalila, was present for today's vs and reports that she has been coming over every day to assist pt with home needs and is the person that arranged for the additional DME. He may also have access to a hospital bed through this person and this SN highly encourages this. Dalila reports that it will need a man with a truck and 4 guys to help move it up the steps; she and pt are working on this. It is noted that pt had all unsafe rugs removed as recommended in his apt. Physical assessment: Pt continues to be jaundiced, does not appear to be any more pronounced since SOC assessment. SN discussed the conversation with Dr Farmer's office with correctional case manager and pt is to follow up with Dr Parr as needed for a paracentesis. He thought that he needs to do this right now but he does not feel that a paracentesis is needed. Abdomen is soft and non distended at this time. Pt is having 3-4 loose stools per day and does not relate to this as being expected with his lactulose dose and expected for his liver disease. SN encouraged pt that this is typical, pt verbalizes understanding. Pt reports that he feels that IF he feels that he needs a paracentesis; he is going directly to [facility] in [place] as he felt that this was the best care for this. R chest tube suture removal: SN removed 3 sutures from R previous CT site and the area is red and swollen today. This was not noted on SOC assessement. Photo uploaded to chart. Pt denies increased discomfort. Pt with a low grade fever today. Clinical judgment was to remove sutures, dry clean dressing placed. Will have Nick Zaman RN communicate with Dr Farmer's office in am. Pt is scheduled for CXR, CT scan, labs and appt with Dr Farmer tomorrow. See intervention summary for education details. Patient demonstrated a need for further skilled SN services for chronic disease management & education, medication education, wound/skin care and safety. Current Discharge plan: self-care and family support RECOMMENDATION: Next visit to focus on (be specific): ?new orders from PCP appt, results of labs and xrays. [facility] Work Phone: 05-10-2025 Telephone encounter Note There has been a delay in service for Home Care PT, OT Evaluation for this patient due to schedule conflict. Patient was notified on 05/10/25. Physician's office notified at [phone]. Thank you for this referral, please contact us with any questions. Deepti Ballard Geology Faculty Member [facility] 05-10-2025 Miscellaneous Notes There has been a delay in service for Home Care PT, OT Evaluation for this patient due to schedule conflict. Patient was notified on 05/10/25. Physician's office notified at [phone]. Thank you for this referral, please contact us with any questions. Deepti Ballard Geology Faculty Member documented in this encounter [facility] 05-09-2025 Miscellaneous Notes 05/09/25 10:46 AM - 10:51 AM SENIOR HR GENERALIST called [facility] [phone] and spoke with Javed in Scheduling regarding the pt, getting Paracentesis there and he stated that the pt. had Paracentesis there on 03/30/25. He stated that they would need a new order from the Dr. Then Javed stated they have a standing order from Dr. Farmer and that the DrFrantz needs to call them regarding the pt. resuming Paracentesis . 05/09/25 10:51 AM - 10:55 AM SENIOR HR GENERALIST called Dr. Tana Hopkins and spoke to the Nurse Mindy regarding phone call SENIOR HR GENERALIST had with Javed in Scheduling at [facility] regarding the pt. having Paracentesis. MARIBEL stated Javed stated they have a standing order from Dr. Farmer and that the DrFrantz needs to call them regarding the pt. resuming Paracentesis. Mindy stated she would follow-up on this. She discussed the pt. was to get a Pleurel drain and did not get one. 05/09/25 10:57 AM - 11:00 AM SENIOR HR GENERALIST received a phone call from the pt. asking what time the Nurse was coming tomorro that he has alot of things to take care of tomorrow like [employer]. SENIOR HR GENERALIST stated she can ask the Nurse to call him with a time. MARIBEL discussed with the pt. getting Paracentesis at [facility]. The pt. stated he has went a couple times. He was not aware of this. He stated he had not left his pt. yet but was getting things taken care of. 05/09/25 11:00 AM SENIOR HR GENERALIST called Sindy Cesar RN and left her a voicemail mesage that the pt. was wanting to know what time she was going to see him tomorrow. 05/09/25 11:03 AM - 11:06 AM SENIOR HR GENERALIST received a phone call from the pt.'s Mom Aurelia regarding if the pt. would go into a intermediate She stated it may be better for him to be closer to her and family. She stated [facility]. SENIOR HR GENERALIST informed the pt.'s Mom that the pt. was thinking about intermediate placement. SENIOR HR GENERALIST will continue to follow-up. documented in this encounter [facility] 05-09-2025 Patient's home Note 05/09/25 10:46 AM - 10:51 AM SENIOR HR GENERALIST called [facility] [phone] and spoke with Javed in Scheduling regarding the pt, getting Paracentesis there and he stated that the pt. had Paracentesis there on 03/30/25. He stated that they would need a new order from the DrFrantz Then Javed stated they have a standing order from Dr. Farmer and that the DrFrantz needs to call them regarding the pt. resuming Paracentesis . 05/09/25 10:51 AM - 10:[address] Tana Hopkins and spoke to the Nurse Mindy regarding phone call MARIBEL had with Javed in Scheduling at [facility] regarding the pt. having Paracentesis. MARIBEL stated Javed stated they have a standing order from Dr. Farmer and that the DrFrantz needs to call them regarding the pt. resuming Paracentesis. Mindy stated she would follow-up on this. She discussed the pt. was to get a Pleurel drain and did not get one. 05/09/25 10:57 AM - 11:00 AM SENIOR HR GENERALIST received a phone call from the pt. asking what time the Nurse was coming tomorro that he has alot of things to take care of tomorrow like [employer]. MARIBEL stated she can ask the Nurse to call him with a time. MARIBEL discussed with the pt. getting Paracentesis at [facility]. The pt. stated he has went a couple times. He was not aware of this. He stated he had not left his pt. yet but was getting things taken care of. 05/09/25 11:00 AM SENIOR HR GENERALIST called Sindy Cesar RN and left her a voicemail mesage that the pt. was wanting to know what time she was going to see him tomorrow. 05/09/25 11:03 AM - 11:06 AM SENIOR HR GENERALIST received a phone call from the pt.'s Mom Aurelia regarding if the pt. would go into a intermediate She stated it may be better for him to be closer to her and family. She stated [facility]. SENIOR HR GENERALIST informed the pt.'s Mom that the pt. was thinking about intermediate placement. SENIOR HR GENERALIST will continue to follow-up. [facility] Work Phone: 05-09-2025 Miscellaneous Notes Fax sent to Dr. Farmer's office: Patient: Aryan Valle Physician: Dr. Farmer DME for [facility]: [place] documented in this encounter [facility] 05-09-2025 Miscellaneous Notes 05/09/25 9:11 AM - 9:14 AM SENIOR HR GENERALIST called [employer] and spoke with Simon regarding their services and he stated that they have [employer] and can get restraining orders. He stated that they do not assist financially with rent and utilities. He stated [employer] does assist with rent and utilities. 05/09/25 9:14 AM - 9:21 AM SENIOR HR GENERALIST called the pt. regarding SENIOR HR GENERALIST spoke with [facility] Victim Witness Assistance [facility] and that they send letters to let people know their rights and if they would want a Protection Order. The pt. stated he does not want a Protection Order. SENIOR HR GENERALIST stated that they do not have funding for financial assistance with rent or utilities. SENIOR HR GENERALIST informed the pt. on phone call to [employer]. SENIOR HR GENERALIST discussed with the pt. regarding [employer] assists financially with rent and utilities The pt. stated he has fallen three times since home. SENIOR HR GENERALIST asked asked the pt. about his most recent fall and he stated he was in the bedroom and fell backwards against the closet door. The pt. did not know which day he fell. He stated his back was sore. The pt. informed SENIOR HR GENERALIST that he went to the ER the day before yesterday 05/07/25 at [facility] but unclear why he went to the ER. SENIOR HR GENERALIST asked the pt. if he feels he needs to go into a intermediate. The pt. stated his mom wants him to go into a intermediate and stated closer to home. The pt. stated he was disoriented today and stated that his company he works for was closing. He stated the his friend Dalila was coming today to take him to the bank and that he has to get somethings worked out. The pt. stated someone is coming tomorrow and SENIOR HR GENERALIST stated john Nurse is to come tomorrow. SENIOR HR GENERALIST asked the pt. if he wanted SENIOR HR GENERALIST to talk with his Mom and he was supportive of this. SENIOR HR GENERALIST stated she would get back with him. 05/09/25 9:21 AM SENIOR HR GENERALIST called Jem Zaman RN Case Manager and informed her on phone call with the pt. 05/09/25 9:30 AM - 9:36 AM SENIOR HR GENERALIST called the pt.'s mother Aurelia Potter regarding phone call SENIOR HR GENERALIST had with the pt. today. SENIOR HR GENERALIST discussed with the pt.'s Mom regarding intermediate placement for the pt. She stated that it was up to the pt. and he did not have to come closer to her. She stated that the pt.'s friend Dalila has been assisting the pt. daily sometimes a couple times a day. SENIOR HR GENERALIST asked the pt.'s mom about the pt. falling more since SENIOR HR GENERALIST saw the pt. She stated he may have fallen one more time. She stated that the pt. went to the ER on Thursday05/07/25 and she asked SENIOR HR GENERALIST what happened when the pt. was in ER and SENIOR HR GENERALIST explained she was not aware what happened in the ER. SENIOR HR GENERALIST discussed that the pt. stated he had to go to the [employer] today and the pt.'s mom stated he did to take care of something. The pt.'s Mom stated that the pt. is drinking again. SENIOR HR GENERALIST asked the pt.'s mother if he was drining more then 4-6 beers a day and she was not sure. SENIOR HR GENERALIST stated she will continue to follow-up. SENIOR HR GENERALIST provided the pt.'s Mom with her name and phone number. 05/09/25 9:21 AM SENIOR HR GENERALIST spoke with Eden Zaman RN Case Manager regarding phone call SENIOR HR GENERALIST had with the pt.'s mother. 05/09/25 9:39 AM - 9:46 AM SENIOR HR GENERALIST called the pt. back regarding phone call SENIOR HR GENERALIST had with his Mom regarding intermediate placement for him. The pt. stated he was not able to pay for intermediate placement. SENIOR HR GENERALIST discussed his insurance may pay for intermediate placement. The pt. stated he may not have insurance but has the [employer] [place] Medicaid. SENIOR HR GENERALIST asked the pt. if he wanted SENIOR HR GENERALIST to talk with his friend Dalila and he stated she just got there. The pt. put Dalila on the phone and SENIOR HR GENERALIST spoke to her. She stated she was there to take the pt. to the [employer]. She asked the pt. what he wanted to do regarding intermediate placement and he wanted to wait. She asked about the information SENIOR HR GENERALIST left on [facility] on Aging & Disabilities regarding [place] [facility] Waiver. SENIOR HR GENERALIST discussed [place] [facility] Waiver for the pt. to get an Aide/Homemaker, Home Delivered Meals, ER Medical Alert. Dalila stated she sees SENIOR HR GENERALIST card there that she left and they can call SENIOR HR GENERALIST back if referrals wanted. 05/09/25 10:25 AM - 10:32 AM SENIOR HR GENERALIST called Dr. Tana Farmer and spoke to the Nurse Mindy regarding phone calls to the pt. today and that he stated he fell in his bedroom backwards against the closet door and stated his back was sore. SENIOR HR GENERALIST stated that the Nurse is scheduled to see the pt. tomorrow. SENIOR HR GENERALIST stated she spoke to the pt. and his mother regarding nusring home placeent for the pt. The pt. is thinking about it. SENIOR HR GENERALIST stated that spoke to the pt.'s friend Dalila who was there with the pt. and taking him to the bank today. Mindy stated that the pt. is to be going for Paracentesis at [facility] and she stated she thinks it was to be once a week. She stated that the pt. needs this coordinated with [facility]. documented in this encounter [facility] 05-09-2025 Patient's home Note Fax sent to Dr. Farmer's office: Patient: Aryan Valle Physician: Dr. Farmer DME for [facility]: [facility] Work Phone: 05-09-2025 Patient's home Note 05/09/25 9:11 AM - 9:14 AM SENIOR HR GENERALIST called [employer]. and spoke with [facility] regarding their services and he stated that they have [employer] and can get restraining orders. He stated that they do not assist financially with rent and utilities. He stated [employer] does assist with rent and utilities. 05/09/25 9:14 AM - 9:21 AM SENIOR HR GENERALIST called the pt. regarding SENIOR HR GENERALIST spoke with [facility] Victim Witness Assistance Program and that they send letters to let people know their rights and if they would want a Protection Order. The pt. stated he does not want a Protection Order. SENIOR HR GENERALIST stated that they do not have funding for financial assistance with rent or utilities. SENIOR HR GENERALIST informed the pt. on phone call to [employer]. SENIOR HR GENERALIST discussed with the pt. regarding [employer] assists financially with rent and utilities The pt. stated he has fallen three times since home. SENIOR HR GENERALIST asked asked the pt. about his most recent fall and he stated he was in the bedroom and fell backwards against the closet door. The pt. did not know which day he fell. He stated his back was sore. The pt. informed SENIOR HR GENERALIST that he went to the ER the day before yesterday 05/07/25 at [facility] but unclear why he went to the ER. SENIOR HR GENERALIST asked the pt. if he feels he needs to go into a intermediate. The pt. stated his mom wants him to go into a intermediate and stated closer to home. The pt. stated he was disoriented today and stated that his company he works for was closing. He stated the his friend Dalila was coming today to take him to the [employer] and that he has to get somethings worked out. The pt. stated someone is coming tomorrow and SENIOR HR GENERALIST stated john Nurse is to come tomorrow. SENIOR HR GENERALIST asked the pt. if he wanted SENIOR HR GENERALIST to talk with his Mom and he was supportive of this. SENIOR HR GENERALIST stated she would get back with him. 05/09/25 9:21 AM SENIOR HR GENERALIST called Jem Zaman RN Case Manager and informed her on phone call with the pt. 05/09/25 9:30 AM - 9:36 AM SENIOR HR GENERALIST called the pt.'s mother Aurelia Potter regarding phone call SENIOR HR GENERALIST had with the pt. today. SENIOR HR GENERALIST discussed with the pt.'s Mom regarding intermediate placement for the pt. She stated that it was up to the pt. and he did not have to come closer to her. She stated that the pt.'s friend Dalila has been assisting the pt. daily sometimes a couple times a day. SENIOR HR GENERALIST asked the pt.'s mom about the pt. falling more since SENIOR HR GENERALIST saw the pt. She stated he may have fallen one more time. She stated that the pt. went to the ER on Thursday05/07/25 and she asked SENIOR HR GENERALIST what happened when the pt. was in ER and SENIOR HR GENERALIST explained she was not aware what happened in the ER. SENIOR HR GENERALIST discussed that the pt. stated he had to go to the [employer] today and the pt.'s mom stated he did to take care of something. The pt.'s Mom stated that the pt. is drinking again. SENIOR HR GENERALIST asked the pt.'s mother if he was drining more then 4-6 beers a day and she was not sure. SENIOR HR GENERALIST stated she will continue to follow-up. SENIOR HR GENERALIST provided the pt.'s Mom with her name and phone number. 05/09/25 9:21 AM SENIOR HR GENERALIST spoke with Eden Zaman RN Case Manager regarding phone call SENIOR HR GENERALIST had with the pt.'s mother. 05/09/25 9:39 AM - 9:46 AM SENIOR HR GENERALIST called the pt. back regarding phone call SENIOR HR GENERALIST had with his Mom regarding intermediate placement for him. The pt. stated he was not able to pay for intermediate placement. SENIOR HR GENERALIST discussed his insurance may pay for intermediate placement. The pt. stated he may not have insurance but has the [place] [employer]. SENIOR HR GENERALIST asked the pt. if he wanted SENIOR HR GENERALIST to talk with his friend Dalila and he stated she just got there. The pt. put Dalila on the phone and SENIOR HR GENERALIST spoke to her. She stated she was there to take the pt. to the [employer]. She asked the pt. what he wanted to do regarding intermediate placement and he wanted to wait. She asked about the information SENIOR HR GENERALIST left on [facility] Agency on Aging & Disabilities regarding [place]aiver. SENIOR HR GENERALIST discussed [place]aiver for the pt. to get an Aide/Homemaker, Home Delivered Meals, ER Medical Alert. Dalila stated she sees SENIOR HR GENERALIST card there that she left and they can call SENIOR HR GENERALIST back if referrals wanted. 05/09/25 10:25 AM - 10:[address] Tana Farmer and spoke to the Nurse Mindy regarding phone calls to the pt. today and that he stated he fell in his bedroom backwards against the closet door and stated his back was sore. MARIBEL stated that the Nurse is scheduled to see the pt. tomorrow. MARIBEL stated she spoke to the pt. and his mother regarding nusring home placeent for the pt. The pt. is thinking about it. MARIBEL stated that spoke to the pt.'s friend Dalila who was there with the pt. and taking him to the [employer] today. Mindy stated that the pt. is to be going for Paracentesis at [facility] and she stated she thinks it was to be once a week. She stated that the pt. needs this coordinated with [facility]. [facility] Work Phone: 05-08-2025 Miscellaneous Notes 05/08/25 3:34 PM - 3:38 PM SENIOR HR GENERALIST called Dr. Tana Farmer and spoke with the Nurse Mindy regarding SENIOR HR GENERALIST made a visit with the RN to the pt. on 05/05/25. SENIOR HR GENERALIST stated that the pt. lives alone and his mothter and friends assist him. SENIOR HR GENERALIST stated she educated the pt. on [facility] on Aging & Disabilities [facility] CORDELIA : Guillermo Salas Information Referral Exchange for information and referrals for community resources in [facility] phone number and information on the Social Security Office in [place]. SENIOR HR GENERALIST stated she has contacted [employer] regarding services for the pt. SENIOR HR GENERALIST stated the pt. is hoping to return back to work. SENIOR HR GENERALIST stated she will continue to follow-up with the pt. documented in this encounter [facility] 05-08-2025 Patient's home Note 05/08/25 3:34 PM - 3:38 PM SENIOR HR GENERALIST called Dr. Tana Farmer and spoke with the Nurse Mindy regarding SENIOR HR GENERALIST made a visit with the RN to the pt. on 05/05/25. SENIOR HR GENERALIST stated that the pt. lives alone and his mothter and friends assist him. SENIOR HR GENERALIST stated she educated the pt. on [facility] on [facility] : Guillermo Salas Information Referral Exchange for information and referrals for community resources in [facility] phone number and information on the Social Security Office in [place]. SENIOR HR GENERALIST stated she has contacted [employer] regarding services for the pt. SENIOR HR GENERALIST stated the pt. is hoping to return back to work. SENIOR HR GENERALIST stated she will continue to follow-up with the pt. [facility] Work Phone: 05-08-2025 Miscellaneous Notes 05/08/25 Fax sent to PCP office: Patient: Aryan Valle : 1970 Physician: Dr. Dee Brownlee Nadeem Brownlee Your home health patient has been admitted to [facility] for home health services. I left a Voicemail on Saturday 05/05 regarding the following: BMP and Chest x-ray were ordered at [facility]. Patient plans to go to [facility] for those this week. CT and suture removal in 7-10 days. Patient will follow up with surgeon's office for that. Patient has been encouraged to contact your office for a follow up (post hospital appointment.) Home care plan for skilled nurse to visit 1wk6. PT/OT will evaluate for home therapy care plan. BP was low in the hospital. Patient started on Midodrine. BP at home health start of care was 112/58. Patient is in need of a BSC to be called into DME. Can you assist with this order? Thank you in advance for your review of this information and any recommendations. Return documented in this encounter [facility] 05-08-2025 Patient's home Note 05/08/25 Fax sent to PCP office: Patient: Aryan Valle : 1970 Physician: Dr. Dee Brownlee Nadeem Brownlee Your home health patient has been admitted to [facility] for Connected Care for home health services. I left a Voicemail on Saturday 05/05 regarding the following: BMP and Chest x-ray were ordered at [facility]. Patient plans to go to [facility] for those this week. CT and suture removal in 7-10 days. Patient will follow up with surgeon's office for that. Patient has been encouraged to contact your office for a follow up (post hospital appointment.) Home care plan for skilled nurse to visit 1wk6. PT/OT will evaluate for home therapy care plan. BP was low in the hospital. Patient started on Midodrine. BP at home health start of care was 112/58. Patient is in need of a BSC to be called into DME. Can you assist with this order? Thank you in advance for your review of this information and any recommendations. Return [facility] Work Phone: 05-08-2025 Miscellaneous Notes 05/08/25 8:30 AM - 8:34 AM SENIOR HR GENERALIST received a phone callf ana Anderson with [facility] Victim Witness Assistance [facility] and she stated that she did send the pt. a letter. She stated they send letters to let people know their rights and if they would want a Protection Order. Monica stated that they do not have funding for financial assistance with rent or utilities. She stated that the pt. could contact [facility] regarding financial assistance. MARIBEL stated the pt. received a letter from them but could not find it. Zechariah stated she would dominic the pt. another letter. 05/08/25 8:43 AM - 8:45 AM SENIOR HR GENERALIST called [employer] [facility] of [facility] regarding if they provide assistance with rent and utilities. She stated that they do not have funding for this but work with local agencies in [facility] regarding financial assistance such as [employer], etc. documented in this encounter [facility] 05-08-2025 Patient's home Note 05/08/25 8:30 AM - 8:34 AM MARIBEL received a phone callf ana Anderson with [facility] Victim Witness [facility] and she stated that she did send the pt. a letter. She stated they send letters to let people know their rights and if they would want a Protection Order. Monica stated that they do not have funding for financial assistance with rent or utilities. She stated that the pt. could contact [facility] regarding financial assistance. MARIBEL stated the pt. received a letter from them but could not find it. Zechariah stated she would dominic the pt. another letter. 05/08/25 8:43 AM - 8:45 AM MARIBEL called [employer] of [facility] regarding if they provide assistance with rent and utilities. She stated that they do not have funding for this but work with local agencies in [facility] regarding financial assistance such as [employer], etc. [facility] Work Phone: 05-05-2025 Miscellaneous Notes SN contacted Dr. Farmer's [...] next week the patient plans to visit [facility] for this. PT/OT/SW have also been ordered and will be visiting for evaluations. The patient has a liver hx and will likely need follow up regaridng this. Message left on office VM. This SN left a call back number of [phone]. documented in this encounter [facility] 05-05-2025 Patient's home Note SN contacted Dr. [...] next week the patient plans to visit [facility] lab for this. PT/OT/SW have also been ordered and will be visiting for evaluations. The patient has a liver hx and will likely need follow up regaridng this. Message left on office VM. This SN left a call back number of [phone]. [facility] Work Phone: 05-05-2025 Miscellaneous Notes 05/05/25 4:09 PM - 4:11 PM SENIOR HR GENERALIST called Dr. Tana Hopkins and message came on. documented in this encounter [facility] 05-05-2025 Patient's home Note 05/05/25 4:09 PM - 4:11 PM SENIOR HR GENERALIST called Dr. Tana Hopkins and message came on. [facility] Work Phone: 05-05-2025 Miscellaneous Notes 05/05/25 3:44 PM - 3:46 PM SENIOR HR GENERALIST called [employer] [facility] PH: and left a message that SENIOR HR GENERALIST was calling regarding if they received a referral or were active with the pt. SENIOR HR GENERALIST left her name and phone number for someone to call SENIOR HR GENERALIST back. documented in this encounter [facility] 05-05-2025 Patient's home Note 05/05/25 3:44 PM - 3:46 PM SENIOR HR GENERALIST called [employer] [facility] PH: and left a message that SENIOR HR GENERALIST was calling regarding if they received a referral or were active with the pt. SENIOR HR GENERALIST left her name and phone number for someone to call SENIOR HR GENERALIST back. [facility] Work Phone: 05-05-2025 Miscellaneous Notes SITUATION: Medical Social Work evaluation completed today. The patient and his mother present during today's visit. The patient reports the following changes since the last homecare visit: Falls-- SENIOR HR GENERALIST made a joint visit with Sindy Cesar RN for a SOC. The pt. informed SENIOR HR GENERALIST and RN that he fell yesterday and [...] recliner to get up. RN calling the DrFrantz to report the pt.'s falls. BACKGROUND: Diagnoses (reason for Home Care): Multiple Rib Fractures Involving Four Or More Ribs, Hemothorax, Traumatic, Liver Disease, Chronic, With Cirrhosis (Hcc), Venous Insufficiency of Lower Extremity, Seizure (Hcc), Hypomagnesemia, Acute Blood Loss Anemia, Thrombocytopenia, Acute Respiratory Insufficiency, Poor Venous Access Reason for [employer] referral: Community Resources Family dynamics and household members: The pt. lives alone in his apt. The pt.'s mother lives an hour and a half away. The pt. has friends Dalila and Cora that assist him. ASSESSMENT: [employer] greeted at door by The pt. yelled [...] and her are going through a divorce. SENIOR HR GENERALIST discussed with the pt. regarding his ability to manage his own care. SENIOR HR GENERALIST educated the pt. and his mother on [place] Waiver for an Aide/Homemaker, Home Delivered meals, ER Medical Alert. The pt. wants to be able to return back to work. MARIBEL discussed with the pt. and his mother that it takes time to get on [place] [facility] and get services started. SENIOR HR GENERALIST educated on [facility] Agency on Aging & Disabilities for [place] [facility]. SENIOR HR GENERALIST discussed with the pt. needing to be on Medicaid for [facility] Care [facility]. The pt. stated that his [employer] was a form of Medicaid and he got it off of [employer]. SENIOR HR GENERALIST asked the pt. if he spoke with [...] utility bills. The pt. discussed he uses [employer] for his transportation and he buys taxi passes for $2 each. SENIOR HR GENERALIST stated that she can call [employer] regarding him getting financial assistance with his rent and utility bills and other services available. The pt. stated he was bathing himself with wipes and he was able to get his meals. SENIOR HR GENERALIST asked the pt. about getting his meds, etc. He stated that his friend Dalila assists with errands as able. The pt. would get a little irritated with questions asked. SENIOR HR GENERALIST educated the pt. on [employer] : Guillermo Salas Information Referral Exchange for information and referrals for community resources in [facility]. RECOMMENDATIONS: Recommended the following services: [facility] Agency on Aging & Disabilities for [place] [facility] Referrals made to: SENIOR HR GENERALIST called [employer] [facility] PH: and left a message that SENIOR HR GENERALIST was calling regarding if they received a referral or were active with the pt. SENIOR HR GENERALIST left her name and phone number for someone to call SENIOR HR GENERALIST back. Written information provided: On [facility] Agency on Aging & Disabilities for [facility] Care [facility], [employer] : Guillermo Salas Information Referral Exchange for information and referrals for community resources in [facility], Social Security phone number and information on the Social Security Office in [place]. Response to recommendations: patient and his mother in agreement to SENIOR HR GENERALIST calling [employer] regarding the pt. getting financial assistance with rent and utilities and other services. Medical social work provided support services in order to ensure a safe and appropriate discharge plan. If care team members have any additional concerns identified in the home, please notify [employer] for follow up. [employer] provided name and number to patient and mother for follow up if/when needed. Team/Physician updated. documented in this encounter [facility] 05-05-2025 Miscellaneous Notes SITUATION: [facility] SOC visit completed today. mother also present during today's visit. patient reports the following: Allergies--reviewed Medications--full medication reconciliation completed Falls--Yes, see fall section for details DME-Reviewed and added to chart Advance Directives: Patient does not have advance directives. Patient/Caregiver declined Advance Directive information. BACKGROUND: Discharged/Referral from [facility] on 05/[facility]/25 following treatment for multiple [...] R hemothorax occurred; pt initially went to [place] ED and apparently signed out AMA and then ended up at [facility] ED where he was admitted and treated [...] He reports that he has seen Dr Friend (RAZIA) in the past but does not [...] SN notes that the orders are in EPIC and instructed pt that he can have these done at [facility] in [place]. SN provided pt with the phone number [...] no need to be a permanent med. [employer] to follow up on transportation and community [...] services: Patient agreeable to PT, OT and [employer] referrals. Patient declined N/A referrals. Additional concerns to be followed up on: NONE Next visit to focus on (be specific): BP check, how is pain mangement, when is appt with Dr Farmer, when are appts for CXR and labs? documented in this encounter [facility] 05-05-2025 Patient's home Note SITUATION: Medical Social Work evaluation completed today. The patient and his mother present during today's visit. The patient reports the following changes since the last homecare visit: Falls-- SENIOR HR GENERALIST made a joint visit with Sindy Cesar RN for a SOC. The pt. informed SENIOR HR GENERALIST and RN that he fell yesterday and [...] Respiratory Insufficiency, Poor Venous Access Reason for [employer] referral: Community Resources Family dynamics and household members: The pt. lives alone in his apt. The pt.'s mother lives an hour and a half away. The pt. has friends Dalila and Cora that assist him. ASSESSMENT: [employer] greeted at door by The pt. yelled [...] and her are going through a divorce. SENIOR HR GENERALIST discussed with the pt. regarding his ability to manage his own care. SENIOR HR GENERALIST educated the pt. and his mother on [place] Waiver for an Aide/Homemaker, Home Delivered meals, ER Medical Alert. The pt. wants to be able to return back to work. SENIOR HR GENERALIST discussed with the pt. and his mother that it takes time to get on [place] [facility] [place]aiver and get services started. SENIOR HR GENERALIST educated on [facility] on Aging & Disabilities for [place] [facility] [place] Waiver. SENIOR HR GENERALIST discussed with the pt. needing to be on Medicaid for [place] [facility] [place]aiver. The pt. stated that his [employer] was a form of Medicaid and he got it off of [employer]. SENIOR HR GENERALIST asked the pt. if he spoke with [...] bills. The pt. discussed he uses [employer] for his transportation and he buys taxi passes for $2 each. SENIOR HR GENERALIST stated that she can call [employer] regarding him getting financial assistance with his rent and utility bills and other services available. The pt. stated he was bathing himself with wipes and he was able to get his meals. SENIOR HR GENERALIST asked the pt. about getting his meds, etc. He stated that his friend Dalila assists with errands as able. The pt. would get a little irritated with questions asked. SENIOR HR GENERALIST educated the pt. on [employer] : Guillermo Salas Information Referral Exchange for information and referrals for community resources in [facility]. RECOMMENDATIONS: Recommended the following services: [facility] Agency on Aging & Disabilities [facility] Home Care Waiver Referrals made to: SENIOR HR GENERALIST called [employer] [facility] PH: and left a message that SENIOR HR GENERALIST was calling regarding if they received a referral or were active with the pt. SENIOR HR GENERALIST left her name and phone number for someone to call SENIOR HR GENERALIST back. Written information provided: On [facility] on Aging & Disabilities for [place] [facility] Waiver, [place] : Guillermo Salas Information Referral Exchange for information and referrals for community resources in [facility], Social Security phone number and information on the [employer] Office in [place]. Response to recommendations: patient and his mother in agreement to SENIOR HR GENERALIST calling [employer] regarding the pt. getting financial assistance with rent and utilities and other services. Medical social work provided support services in order to ensure a safe and appropriate discharge plan. If care team members have any additional concerns identified in the home, please notify [employer] for follow up. [employer] provided name and number to patient and mother for follow up if/when needed. Team/Physician updated. [facility] Work Phone: 05-05-2025 Patient's home Note SITUATION: [facility] SOC visit completed today. mother also present [...] R hemothorax occurred; pt initially went to [place] ED and apparently signed out AMA and then ended up at [facility] ED where he was admitted and treated [...] SN notes that the orders are in [facility] and instructed pt that he can have these done at [facility] in [place]. SN provided pt with the phone number [...] no need to be a permanent med. [employer] to follow up on transportation and community [...] services: Patient agreeable to PT, OT and [employer] referrals. Patient declined N/A referrals. Additional concerns to be followed up on: NONE Next visit to focus on (be specific): BP check, how is pain mangement, when is appt with Dr Farmer, when are appts for CXR and labs? [facility] Work Phone: 05-04-2025 Telephone encounter Note Called and spoke with pt, he agreed to initiate C services, was confused as to who was calling before. PT agreed to SOC for 05/05/25, relayed to him the importance of answering and confirming information when we call. Amy Edge LPN [facility] Work Phone: 05-04-2025 Miscellaneous Notes Called and spoke with pt, he agreed to initiate HHC services, was confused as to who was calling before. PT agreed to SOC for 05/05/25, relayed to him the importance of answering and confirming information when we call. Amy Edge LPN Called and spoke with niyasimin Shepherd regarding home care need and start of care date, she stated it would be best to talk to him about that. Notified her we have called and there is no answer and unable to leave VM, she stated that he is home and for us to keep trying. Amy Edge LPN documented in this encounter [facility] 05-04-2025 Telephone encounter Note Mindy from 's office called, notified her we have reached pt and he is requesting SOC delay for 05/05, she approved new delayed SOC date. Amy Edge LPN [facility] Work Phone: 05-04-2025 Miscellaneous Notes Mindy from [...] Amy Edge LPN documented in this encounter [facility] 05-04-2025 Telephone encounter Note Called and left [...] of date. Thank you, Amy Edge LPN [facility] 05-04-2025 Telephone encounter Note Called and spoke with jean paul Shepherd regarding home care need and start of care date, she stated it would be best to talk to him about that. Notified her we have called and there is no answer and unable to leave VM, she stated that he is home and for us to keep trying. Amy Edge LPN [facility] 05-03-2025 Miscellaneous Notes SN contacted pt about SOC vs for tomorrow; pt was very evasive about possible new drain; he states that this call may be from an litigation attorney and hung up the phone before SN could explain the reason for home care.No vs scheduled; attempted several call backs with no ansewr. documented in this encounter [facility] 05-03-2025 Patient's home Note SN contacted pt about SOC vs for tomorrow; pt was very evasive about possible new drain; he states that this call may be from an litigation attorney and hung up the phone before SN could explain the reason for home care.No vs scheduled; attempted several call backs with no ansewr. [facility] Work Phone: 05-02-2025 Note [facility] 05-02-2025 Note [facility] 05-02-2025 Note [facility] 05-01-2025 Note [facility] 05-01-2025 Note [facility] 05-01-2025 Note [facility] 04-30-2025 Note [facility] 04-30-2025 Note [facility] 04-29-2025 Note [facility] 04-29-2025 Note [facility] 04-28-2025 Note [facility] 04-28-2025 Note [facility] 04-28-2025 Telephone encounter Note Tana Farmer MD office called to let us know the doctor will follow the patient for HC. [facility] 04-28-2025 Miscellaneous Notes Tana Farmer MD office called to let us know the doctor will follow the patient for HC. Called and spoke with Mindy in providers office, wanted to know if would follow for [facility] services. Amy Edge LPN documented in this encounter [facility] 04-27-2025 Telephone encounter Note Date/Time: 04/27/2025 3:19 PM Spoke with Friend Cora @ phone #: [phone] - Preferred # for contact: [phone] Have you received help from a home care company in the last 60 days? No Are you agreeable to [facility] services? Yes What address will we be seeing you at? Address [address] [place] [address] [place] [address] Do you have any upcoming appointments or things we need to schedule around? No Do you have a teachable CG or can you manage your care independently? Yes Who? Friend/Significant Other [facility] Work Phone: 04-27-2025 Miscellaneous Notes Date/Time: 04/27/2025 3:19 PM Spoke with Friend Cora @ phone #: [phone] - Preferred # for contact: [phone] Have you received help from a home care company in the last 60 days? No Are you agreeable to [facility] services? Yes What address will we be seeing you at? Address [address] [place] [address] [place] [address] Do you have any upcoming appointments or things we need to schedule around? No Do you have a teachable CG or can you manage your care independently? Yes Who? Friend/Significant Other documented in this encounter [facility] 04-27-2025 Telephone encounter Note Called and spoke with Mindy in providers office, wanted to know if would follow for [facility] services. Amy Edge LPN [facility] Work Phone: 04-27-2025 Note [facility] 04-27-2025 Note [facility] 04-27-2025 Note [facility] 04-26-2025 Note [facility] 04-26-2025 Note [facility] 04-25-2025 Note [facility] 04-25-2025 Note [facility] 04-24-2025 Note [facility] 04-24-2025 Note [facility] 04-23-2025 Note [facility] 04-23-2025 Note [facility] 04-22-2025 Note [facility] 04-22-2025 Note [facility] 04-21-2025 Note T11 :This report has been cancelled. [facility] 04-21-2025 Note [facility] 04-21-2025 Note [facility] 04-20-2025 Note [facility] 04-20-2025 Note [facility] 04-20-2025 Note [facility] 04-19-2025 Note [facility] 04-18-2025 Note [facility] 04-18-2025 Note [facility] 04-17-2025 Note [facility] 04-17-2025 Note [facility] 04-16-2025 Note [facility] 04-16-2025 Note [facility] 04-15-2025 Note [facility] 04-14-2025 Note [facility] 04-14-2025 Note [facility] 04-13-2025 Note [facility] 04-12-2025 Note HNO ID: [id number] Author: NADINE BOCANEGRA, DEONNA Service: Nursing Author Type: Registered Nurse Type: Nursing Progress Note Filed: 04/12/2025 17:58 Note Text: [facility] 04-12-2025 Note [facility] 04-12-2025 Note [facility] 04-12-2025 Note [facility] 04-11-2025 Note [facility] 04-11-2025 Note [facility] 04-10-2025 Note [facility] 04-09-2025 Note [facility] 04-09-2025 Note [facility] 04-09-2025 Note HNO ID: [id number] Author: NOTE, INTERFACE, ? Service: ? Author Type: ? Type: Progress Notes Filed: 04/09/2025 02:55 Note Text: Epic Scheduled Downtime: 04/09/2025 1:00:00 AM to 04/09/2025 2:37:00 AM [facility] 04-08-2025 Note [facility] 04-07-2025 Radiology Diagnostic study note [facility] Imaging Services [address] [place] [address] Chest without Contrast MR#: [id number] Acct: [id number] Name: ARYAN VALLE Rep #: [id number] : 1970 M 55 From: Nasrin Brantley MD PCP: Dr. Tana Farmer MD Status: R EG ER Study:Chest without Contrast Date of Exam: 04/07/25 Exam# [id number] Ordering Dr: Ramona Woods EXAM: CT Chest [...] atelectasis. Small right pleural effusion. Reading Location: [facility] CC: Dr. Tana Farmer MD; MEGHNA Gerardo ~ Solar Electric Installer: Signed [facility] 04-07-2025 Radiology Diagnostic study note [facility] Imaging Services [address] [place] [address] [id number] Brain/Head without Contrast MR#: [id number] Acct: [id number] Name: ARYAN VALLE Rep #: [id number] : 1970 M 55 From: Nasrin Brantley MD PCP: Dr. Tana Farmer MD Status: R ER Study:Brain/Head without Contrast Date of Exa m: 04/07/25 Exam# [id number] Ordering Dr: Ramona Woods EXAM: CT Head [...] evaluation with MRI is recommended. Reading Location: [facility] CC: Dr. Tana Farmer MD; MEGHNA Gerardo ~ Solar Electric Installer: Signed [facility] 04-07-2025 Radiology Diagnostic study note [facility] Imaging Services [address] [place] [address] 570881 Spine Cervical without Contras MR#: [id number] Acct: [id number] Name: ARYAN VALLE Rep #: [id number] : 1970 M 55 From: Nasrin Brantley MD PCP: Dr. Tana Farmer MD Status: R [facility] Study:Spine Cervical without Contras Date of Exam: 04/07/25 Exam# [id number] Ordering Dr: Ramona Woods EXAM: CT Cervical [...] changes cervical spine as described. Reading Location: [facility] CC: Dr. Tana Farmer MD; MEGHNA Gerardo ~ Solar Electric Installer: Signed [facility] 03-30-2025 Radiology Diagnostic study note [facility] Imaging Services [address] [place] [address] Paracentesis with US MR#: [id number] Acct: [id number] Name: ARYAN VALLE Rep #: [id number] : 1970 M 55 From: Lan Felix MD PCP: Dr. Tana Farmer MD Status: R EG CLI Study:Paracentesis with US Date of Exam: 03/30/25 Exam# [id number] Ordering Dr: Eliana Farmer MD EXAM: Ultrasound-guided [...] clear yellow fluid successfully removed. Reading Location: [facility] CC: Dr. Tana Farmer MD ~ Solar Electric Installer: Signed [facility] 03-24-2025 Evaluation note Diagnosis Onset Date Resolution Abdominal ascites chronic March 10:40am Alcoholic hepatitis chronic March 242024 10:40am Cirrhosis chronic March 24, 2025 10:40am Decompensated hepatic cirrhosis chronic March 24, 2025 10:40am Hypertension chronic March 24 10:40am Hypothyroidism chronic March 24, 10:40am Jaundice chronic March 24, 2025 10:40am [facility] Work Phone: 1(979) 316-384905-02-2025 Evaluation note* Diagnosis Onset Date Resolution Status Admit Date Abdominal ascites chronic March 10:40am Alcoholic hepatitis chronic March 242024 10:40am Cirrhosis chronic March 24, 2025 10:40am 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 March 24, 2025 10:40am Hypertension chronic March 24 10:40am Hypothyroidism chronic March 24 025 10:40am Jaundice chronic March 24, 2025 10:40am Debility acute May 11 4:44pm Failure to thrive in adult acute May 11, 2025 4:44pm Surgical wound breakdown acute May 11, 2025 4:44pm Rib fractures chronic May 11, 2025 4:44pm [facility] Work Phone: 1(653) 941-164605-02-2025 Evaluation note* Diagnosis Onset Date Resolution Status Admit Date Abdominal ascites chronic March 10:40am Alcoholic hepatitis chronic March 242024 10:40am Cirrhosis chronic March 24, 2025 10:40am 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 March 24, 2025 10:40am Hypertension chronic March 24 10:40am Hypothyroidism chronic March 24 025 10:40am Jaundice chronic March 24, 2025 10:40am Debility acute May 11 4:44pm Failure to thrive in adult acute May 11, 2025 4:44pm Surgical wound breakdown acute May 11, 2025 4:44pm Rib fractures chronic May 11, 2025 4:44pm Chronic back pain chronic June 142024 8:33am 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 Author Type: Nurse Practitioner Type: [...] be seen in ED. 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 Brian Crawford [facility] History of Present illness Narrative* Brian Crawford APRN.CNP - 03/21/2025 6:40 PM EDT 55-year-old male presents urgent care accompanied by significant other. Chief complaint abdominal pain and bloating. Patient states recently diagnosed with decompensated cirrhosis. Was recently admitted and discharged at the end of last week. States has gained 20 pounds recently. Presents today forevaluation. With presenting symptoms recommend patient be seen in ED. 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 Brian Crawford APRN.CNP [facility] Note GASTROENTEROLOGY/HEPATOLOGY DAILY PROGRESS NOTE 3 Patient Name: Aryan Valle Encounter date: 03/15/25 MR #: [id number] Assessment/Plan: * Decompensated cirrhosis (HCC) Assessment & Plan 55 y.o. male with a past medical history significant for seizures, HTN, decompensated cirrhosis 2/2 alcohol with history of ascites, HE, recent admit [facility] 02/24/2025 for abdominal bloating but left AMA., ED visit 03/11 for large volume ascites but refused admit who presented to [facility] 03/13/2025 for abdominal pains, found to have [...] from Hepatology perspective. Follow up scheduled in [facility] Liver clinic in [facility] ([address], [place] [address]). Clinic phone: [phone]. Please include this information on patients Discharge [...] MD AUTHENTICATED BY JOHN BECERRIL, ON 03/15/2025 13:43:21[facility]04-23-2025 History of Present illness Narrative* John Becerril MD - 03/15/2025 1:34 PM EDT GASTROENTEROLOGY/HEPATOLOGY DAILY PROGRESS NOTE 3 Patient Name: Aryan Valle Encounter date: 03/15/25 MR #: [id number] Assessment/Plan: * Decompensated cirrhosis (HCC) Assessment & Plan 55 y.o. male with a past medical history significant for seizures, HTN, decompensated cirrhosis 2/2alcohol with history of ascites, HE, recent admit [facility] 02/24/2025 for abdominal bloating but left AMA., ED visit 03/11 for large volume ascites but refused admit who presented to [facility] 03/13/2025 for abdominal pains, found to have [...] BID and will schedule EGD in 3 monthsto assess healing (message sent to scheduling). - [...] For patients at high risk for severe withdrawal,recommend high dose Thiamine replacement 500 mg IV TID x 5 days followed by 100 mg daily. RecommendPhenobarb instead of CIWA for withdrawal. Recommend Naltrexone or Acamprosate to aid with cessation - Cellulitis: LLE cellulitis. On Keflex OK to discharge from Hepatology perspective. Follow up scheduled in [facility] Liver clinic in [facility] ([address] [place] [address]). Clinic phone: [phone]. Please include this information on patients Discharge [...] Radiology, Medications, and Transcriptions John Becerril MD * Jensen Cabello, - 03/15/2025 11:55 AM EDT [facility] Inpatient Progress Note 03/15/2025 Aryan Valle 1970 [id number] Assessment/Plan: Aryan Valle is a 55 y.o. male with a history of seizures, HTN, cirrhosis, alcohol use disorder, admission at [facility] 02/24/25 for abdominal distention but left AMA, ED visit 03/11/25 for decompensated cirrhosis and large volume ascites who declined admission to [facility] or transfer to tertiary hospital for hepatology evaluation who presented to [facility] 03/13/2025 with ongoing abdominal pain. Decompensated Cirrhosis [...] DVT Prophylaxis: lovenox Medication Reconciliation: Reviewed using lot technician Current living situation: home Expected Disposition: home Estimated discharge date: Today Subjective: Patient doing well this morning, no changes in clinical status, abdomen remains improved from admission. He is able to fill rifaximin for $0 given coupon. Reviewed other medication changes and discharge plan of patient. 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 Medically ready discharge today. Physical Exam: BP 108/62 Pulse 88 Temp 98.1 F (36.7 C) (Oral) Resp 16 Ht 5' 11 Wt 104.2 kg (229 lb 11.5oz) SpO2 93% BMI 32.04 kg/m General: NAD [...] 0556 03/13/25 1109 INR 3.5* 3.1* 2.7* * Jensen Cabello DO - 03/14/2025 1:20 PM EDT [facility] Inpatient Progress Note 03/14/2025 Aryan Valle 1970 [id number] Assessment/Plan: Aryan Valle is a 55 y.o. male with a history of seizures, HTN, cirrhosis, alcohol use disorder, admission at [facility] 02/24/25 for abdominal distention but left AMA, ED visit 03/11/25 for decompensated cirrhosis and large volume ascites who declined admission to [facility] or transfer to [facility] for hepatology evaluation who presented to [facility] 03/13/2025 with ongoing abdominal pain. Decompensated Cirrhosis [...] DVT Prophylaxis: lovenox Medication Reconciliation: Reviewed using lot technician Current living situation: home Expected Disposition: [...] INR 3.1* 2.7* 2.5* documented in this [id number] NoteMEDONE DISCHARGE SUMMARY Aryan Valle Account: [id number] Admitted: 03/13/2025 Discharge Date/Time: 03/15/25 / 11:56 AM Handoff to PCP Routine hospital follow up Follow-up with hepatology as scheduled. Follow-up resolution of suspected left lower extremity cellulitis. Follow-up with GI as scheduled. Clinical Summary Aryan Valle is a 55 y.o. male with a history of seizures, HTN, cirrhosis, alcohol use disorder, admission at [facility] 02/24/25 for abdominal distention but left AMA, ED visit 03/11/25 for decompensated cirrhosis and large volume ascites who declined admission to [facility] or transfer to tertiary hospital for hepatology evaluation who presented to [facility] 03/13/2025 with ongoing abdominal pain s/p 5L [...] Physician(s) Family: Tana Farmer MD, , Address: [address] [place] [address] / [place] [address] Follow Up: No follow-up provider specified. Additional Information: Patient seen and examined day of discharge. For more information regarding patient's care, including complete radiology reports, please contact [facility] at Patient instructions, including activity, were given to the patient/family at discharge. Please see the After Visit Summary in the medical record for details. Time spent on discharge: > 30 minutes Completed by: Jensen Cabello DO on 03/15/25, 11:56 AM AUTHENTICATED BY JENSEN CABELLO ON 03/15/2025 11:59:41[facility] 03-15-2025 Hospital course Narrative* Jensen Cabello DO - 03/15/2025 11:56 AM EDT [facility] DISCHARGE SUMMARY Aryan Valle Account: [id number] Admitted: 03/13/2025 Discharge Date/Time: 03/15/25 / 11:56 AM Handoff to PCP Routine hospital follow up Follow-up with hepatology as scheduled. Follow-up resolution of suspected left lower extremity cellulitis. Follow-up with GI as scheduled. Clinical Summary Aryan Valle is a 55 y.o. male with a history of seizures, HTN, cirrhosis, alcohol use disorder, admission at [facility] 02/24/25 for abdominal distention but left AMA, ED visit 03/11/25 for decompensated cirrhosis and large volume ascites who declined admission to [facility] or transfer to tertiary hospital for hepatology evaluation who presented to [facility] 03/13/2025 with ongoing abdominal pain s/p 5L [...] Drinks 3 beers daily. Last drink 03/12/2025. Didnot trigger CIWA, continued supplementation. LLE Cellulitis: Increased [...] Physician(s) Family: Tana Farmer MD, , Address: [address] [place] [address] / [facility] [address] Follow Up: No follow-up provider specified. Additional Information: Patient seen and examined day of discharge. For more information regarding patient's care, including complete radiology reports, please contact [facility] at Patient instructions, including activity, were given to the patient/family at discharge. Please seethe After Visit Summary in the medical record for details. Time spent on discharge: > 30 minutes Completed by: Jensen Cabello DO on 03/15/25, 11:56 AM documented in this [id number] [facility] Inpatient Progress Note 03/15/2025 Aryan Valle 1970 [id number] Assessment/Plan: Aryan Valle is a 55 y.o. male with a history of seizures, HTN, cirrhosis, alcohol use disorder, admission at [facility] 02/24/25 for abdominal distention but left AMA, ED visit 03/11/25 for decompensated cirrhosis and large volume ascites who declined admission to [facility] or transfer to tertiary hospital for hepatology evaluation who presented to [facility] 03/13/2025 with ongoing abdominal pain. Decompensated Cirrhosis [...] DVT Prophylaxis: lovenox Medication Reconciliation: Reviewed using lot technician Current living situation: home Expected Disposition: home Estimated discharge date: Today Subjective: Patient doing well this morning, no changes in clinical status, abdomen remains improved from admission. He is able to fill rifaximin for $0 given coupon. Reviewed other medication changes and discharge plan of patient. 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 Medically ready discharge today. 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 On non-work days, he consumes breakfast of New Zealander toast, eggs, whiteside; lunch of salad with [...] been taking Boost ordered this admission. Current ht:5 Current wt:.104.2 kg (229 lb 11.5 oz) [...] Boost Plus; Boost Plus (No Flavor Specified) 3times daily with meals Oral nutrition supplements Boost Plus; Boost Plus (No Flavor Specified) At bedtime Diet Special; Cardiac; Sodium , 2 g; 2000 mL (1200 mL Nutrition / 800 mL Nursing) Recent PO intake: 50-75%, 0-25% Current PO intake likely does not meet estimated needs Barriers to adequate nutrition intake: poor appetite Nutrition Related Allergies/Intolerances: No Nutrition Related Allergies noted Cultural or Restorationist Dietary Needs :No Cultural or Restorationist Dietary needs noted Difficulty Chewing or Swallowing: [...] small since paracentesis, denies other changes in bodyhabitus. Home Medications Reviewed: Yes. 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 On non-work days, he consumes breakfast of New Zealander toast, eggs, whiteside; lunch of salad with [...] Boost Plus; Boost Plus (No Flavor Specified) 3times daily with meals Oral nutrition supplements Boost Plus; Boost Plus (No Flavor Specified) At bedtime Diet Special; Cardiac; Sodium , 2 g; 2000 mL (1200 mL Nutrition / 800 mL Nursing) Recent PO intake: 50-75%, 0-25% Current PO intake likely does not meet estimated needs Barriers to adequate nutrition intake: poor appetite Nutrition Related Allergies/Intolerances: No Nutrition Related Allergies noted Cultural or Restorationist Dietary Needs :No Cultural or Restorationist Dietary needs noted Difficulty Chewing or Swallowing: [...] small since paracentesis, denies other changes in bodyhabitus. Home Medications Reviewed: Yes. Pertinent: synthroid Nutrient [...] Daily Assessed By: Aurora Lopez RD, LD * Shandra Keenan, DO - 03/14/2025 8:19 AM EDTAssociated Order(s): IP CONSULT TO HEPATOLOGY Resident Consult [...] ascites but refused admit who presented to [facility] 03/13/2025 for abdominal pains, found to have elevated tbili and ascites. Hepatology is consulted for decompensated cirrhosis. Decompensated Cirrhosis - Likely 2/2 alcohol, drinks 3 beers daily. At his most, was drinking 30- pack of beers/ day, hasn't been doing this for ~a decade now, slowly decreasing. No prior autoimmune workup. He states he follows with hepatology, Dr. Parr in [place] but is interested in establishing with [facility]. - Alcohol level elevated at 39 on admit. 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 No history of seizures from alcohol withdrawal. - Baseline weight around 210 pounds. - EV screen: He reports EGD multiple years ago that was normal however unable to see these records.Due for repeat EGD, likely plan to do during this admission. - HE: On home lactulose 20g TID. Continue inpatient. Consider starting rifaximin. - Ascites: s/p paracentesis 2022 in [place] however unable to see these records. He reports they drained a few liters off, states there was no infection. VIR consulted for paracentesis. On home lasix20 mg BID, aldactone 25 mg BID. His diuretic regimen will need adjusted prior to discharge, ideallyto once daily medications as he sometimes misses [...] Will likely want to follow up with [facility] hepatology on discharge. Daily MELD labs. Daily [...] few months now. He initially presented to [place] and was transferred to [facility], he then tells me he was transferred to [facility]. He says he was never admitted to the hospital, per documentation he left AMA. He then represented to the ED on 03/11 with abdominal distention and was foundto have ascites but refused admission. He states [...] runny and low volume. He states his normalweight is 210 pounds and has noticed he [...] and states he had a lot of painwith this procedure previously. He has had a good appetite recently, denies unintentional weight los s. Past Medical/ Surgical/ Social/ Family History Past [...] Resp 16 Ht 5' 11 Wt 105.1 kg(231 lb 11.3 oz) SpO2 94% BMI 32.32 [...] history significant for seizures, HTN, decompensated cirrhosis 2/2alcohol with history of ascites, HE, recent admit [facility] 02/24/2025 for abdominal bloating but left AMA., ED visit 03/11 for large volume ascites but refused admit who presented to [facility] 03/13/2025 for abdominal pains, found to have [...] stop Ceftriaxone and will start diuretics. Recommend 2gram low sodium diet and Nutrition consult for [...] mg BID and send discharge Rx to [facility] on day 1 of admission to expedite [...] For patients at high risk for severe withdrawal,recommend high dose Thiamine replacement 500 mg IV TID x 5 days followed by 100 mg daily. RecommendPhenobarb instead of CIWA for withdrawal. Recommend Naltrexone or Acamprosate to aid with cessation - Cellulitis: LLE cellulitis. On Keflex John Becerril MD * Amber Slaughter, BROADCASTING EQUIPMENT MECHANIC - 03/13/2025 3:39 PM EDTAssociated Order(s): IP CONSULT TO INTERVENTIONAL RADIOLOGY Images from the original note were not included. Vascular & Interventional Radiology Provided By [facility] FOR PROVIDER USE ONLY: [facility] Interventional Radiology: [phone] [facility] Interventional Radiology: [phone] [facility] Interventional Radiology: [phone] 15/06 VIR physician contact: [phone]) FOR PATIENT AND PROVIDERS: [facility]: [phone] www.[email or web address] Patient Name: Aryan Valle : 1970 Code Status: Full Code VIR consult received for USg diagnostic paracentesis. Pertinent past medical/surgical history: Aryan Valle is a 55 YO male with a PMH of seizures, HTN, cirrhosis, alcohol use disorder who presented to [facility] with abdominal pain. He was found to have ascites on CT imaging, so we have been consulted to perform a diagnostic paracentesis. Based upon chartreview, patient is appropriate to have this procedure [...] TBD by the VIR control desk @ [phone] pending emergentcases and other scheduling demands. Please call the [facility] VIR out-patient office @ [phone] (Option 0) if requested procedure isdesired after discharge. Pertinent Information: Antiplatelet/Anticoagulation: Lovenox Allergies: [...] (including PICC placement) and Tunneled venous access </=7 Fr Paracentesis Peripheral nerve blocks, joint, and [...] dilation, stone removal) Venous interventions: intrathoracic and GAS CUTTER intervention PT/INR < 1.8 (if arterial access, [...] recommended Patient undergoing PCI or within immediate peripro cedural period from cardiac intervention; Use multidisciplinary, shared-decision [...] to balance bleeding vs. thrombotic risks. Amber Luciana Slaughter, BROADCASTING EQUIPMENT MECHANIC [facility] 03/13/2025 Cosigned by Du Lee MD at 03/14/2025 2:52 PM EDT documented in this [id number] [facility] Inpatient Progress Note 03/14/2025 Aryan Valle 1970 [id number] Assessment/Plan: Aryan Valle is a 55 y.o. male with a history of seizures, HTN, cirrhosis, alcohol use disorder, admission at [facility] 02/24/25 for abdominal distention but left AMA, ED visit 03/11/25 for decompensated cirrhosis and large volume ascites who declined admission to [facility] or transfer to tertiary hospital for hepatology evaluation who presented to [facility] 03/13/2025 with ongoing abdominal pain. Decompensated Cirrhosis [...] DVT Prophylaxis: lovenox Medication Reconciliation: Reviewed using lot technician Current living situation: home Expected Disposition: [...] CHLORIDE mmol/L 99 97* 96* BICARB mmol/L 25 24 25 BUN mg/dL 3* 3* 4* CREATININE mg/dL [...] 2.5* AUTHENTICATED BY JENSEN CABELLO ON 03/14/2025 13:28:24[facility] 03-14-2025 Nurse Note* Neeru Ch RN - 03/14/2025 11:59 AM EDT Patient was discharged back to floor by transport, via stretcher, in stable condition. [id number] Nurse Note* Neeru Ch RN - 03/14/2025 11:59 AM EDT Patient was discharged back to floor by transport, via stretcher, in stable condition. * Neeru Ch RN - 03/14/2025 11:41 AM EDT Report given to floor nurse,DEONNA Oreilly . documented in this [id number] Nurse Note* Neeru Ch RN - 03/14/2025 11:41 AM EDT Report given to floor nurse,DEONNA Oreilly . [id number] Attending History and physical note* Angella Yu MD - 03/14/2025 10:55 AM EDT INTERVAL HISTORY AND PHYSICAL Patient Name: Aryan Valle Admit Date: [id number] MR #: [id number] : 1970 The H&P has been reviewed [...] ascites but refused admit who presented to [facility] 03/13/2025 for abdominal pains, found to have elevated tbili and ascites. Hepatology is consulted for decompensated cirrhosis. Decompensated Cirrhosis - Likely 2/2 alcohol, drinks 3 beers daily. At his most, was drinking 30- pack of beers/ day, hasn't been doing this for ~a decade now, slowly decreasing. No prior autoimmune workup. He states he follows with hepatology, Dr. Parr in [place] but is interested in establishing with [facility]. - Alcohol level elevated at 39 on admit. 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 No history of seizures from alcohol withdrawal. - Baseline weight around 210 pounds. - EV screen: He reports EGD multiple years ago that was normal however unable to see these records.Due for repeat EGD, likely plan to do during this admission. - HE: On home lactulose 20g TID. Continue inpatient. Consider starting rifaximin. - Ascites: s/p paracentesis 2022 in [place] however unable to see these records. He reports they drained a few liters off, states there was no infection. VIR consulted for paracentesis. On home lasix20 mg BID, aldactone 25 mg BID. His diuretic regimen will need adjusted prior to discharge, ideallyto once daily medications as he sometimes misses [...] Will likely want to follow up with [facility] hepatology on discharge. Daily MELD labs. Daily [...] few months now. He initially presented to [place] and was transferred to [facility], he then tells me he was transferred to [facility]. He says he was never admitted to the hospital, per documentation he left AMA. He then represented to the ED on 03/11 with abdominal distention and was foundto have ascites but refused admission. He states [...] runny and low volume. He states his normalweight is 210 pounds and has noticed he [...] and states he had a lot of painwith this procedure previously. He has had a good appetite recently, denies unintentional weight los s. Past Medical/ Surgical/ Social/ Family History Past Medical History: Diagnosis Date Alcoholism (HCC) Cirrhosis (HCC) Glaucoma Hyperlipidemia Hypertension Seizure disorder (HCC) Seizures (HCC) Past Surgical History: Procedure Laterality Date GLAUCOMA SURGERY Left 2013 JOINT REPLACEMENT MOLE REMOVAL 2014 PARTIAL HIP ARTHROPLASTY Left 2007 Seizures N/A TONSILLECTOMY 1980 History reviewed. No pertinent family history. Social [...] Resp 16 Ht 5' 11 Wt 105.1 kg(231 lb 11.3 oz) SpO2 94% BMI 32.32 [...] Becerril MD at 03/14/2025 10:47 AM EDT [employer] Work Phone: 1(644) 749-824104-22-2025 History and physical note* Angella Yu MD - 03/14/2025 10:55 AM EDT INTERVAL HISTORY AND PHYSICAL Patient Name: Aryan Valle Admit Date: 4201228 MR #: [id number] : 1970 The H&P has been reviewed and the patient has been examined. I concur with the findings of the H&P. There are no significant changes. It is appropriate to proceed with the planned procedure. Angella Yu MD 03/14/2025 10:55 AM Source Note - AnjumShandra saldivarDO - 03/14/2025 8:19 AM EDT Resident Consult [...] ascites but refused admit who presented to [facility] 03/13/2025 for abdominal pains, found to have elevated tbili and ascites. Hepatology is consulted for decompensated cirrhosis. Decompensated Cirrhosis - Likely 2/2 alcohol, drinks 3 beers daily. At his most, was drinking 30- pack of beers/ day, hasn't been doing this for ~a decade now, slowly decreasing. No prior autoimmune workup. He states he follows with hepatology, Dr. Parr in [place] but is interested in establishing with [facility]. - Alcohol level elevated at 39 on admit. 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 No history of seizures from alcohol withdrawal. - Baseline weight around 210 pounds. - EV screen: He reports EGD multiple years ago that was normal however unable to see these records.Due for repeat EGD, likely plan to do during this admission. - HE: On home lactulose 20g TID. Continue inpatient. Consider starting rifaximin. - Ascites: s/p paracentesis 2022 in [place] however unable to see these records. He reports they drained a few liters off, states there was no infection. VIR consulted for paracentesis. On home lasix20 mg BID, aldactone 25 mg BID. His diuretic regimen will need adjusted prior to discharge, ideallyto once daily medications as he sometimes misses [...] Will likely want to follow up with [facility] hepatology on discharge. Daily MELD labs. Daily [...] Male at 03/14/2025 5:56 AM Shandra Keenan, DO Internal Medicine PGY3 Presenting Symptom: decompensated cirrhosis, ascites History of Present Illness Aryan Valle is a 55 y.o. male who presented to hospital with abdominal distention and leg cramping. He states he has noticed abdominal swelling and leg swelling for the past few months now. He initially presented to [place] and was transferred to [facility], he then tells me he was transferred to [facility]. He says he was never admitted to the hospital, per documentation he left AMA. He then represented to the ED on 03/11 with abdominal distention and was foundto have ascites but refused admission. He states [...] runny and low volume. He states his normalweight is 210 pounds and has noticed he [...] and states he had a lot of painwith this procedure previously. He has had a good appetite recently, denies unintentional weight los s. Past Medical/ Surgical/ Social/ Family History Past [...] Resp 16 Ht 5' 11 Wt 105.1 kg(231 lb 11.3 oz) SpO2 94% BMI 32.32 [...] Becerril MD at 03/14/2025 10:47 AM EDT * Daxa Rubio, CORBY - 03/13/2025 2:40 PM EDT [facility] History and Physical Note 03/13/25 Aryan Valle 1970 [id number] Assessment/Plan: Aryan Valle is a 55 y.o. male with a history of seizures, HTN, cirrhosis, alcohol use disorder, admission at [facility] 02/24/25 for abdominal distention but left AMA, ED visit 03/11/25 for decompensated cirrhosis and large volume ascites who declined admission to [facility] or transfer to tertiary hospital for hepatology evaluation who presented to [facility] 03/13/2025 with ongoing abdominal pain.ED workup significant for T. bili 18.3, T. [...] DVT Prophylaxis: lovenox Medication Reconciliation: Reviewed using lot technician Current living situation: home Expected Disposition: [...] HTN, cirrhosis, alcohol use disorder, admission at [facility] 02/24/25 for abdominal distention but left AMA, ED visit 03/11/25 for decompensated cirrhosis and large volume ascites who declined admission to [facility] or transfer to [facility] for hepatology evaluation who presented to [facility] 03/13/2025 with ongoing abdominal pain.ED workup significant for T. bili 18.3, T. [...] confusion, mood swings at home. Of note Craolynn Oliveira Gave him 1 dose of IV antibiotics for suspected left leg cellulitis. Patientwas unable to bean picker his oral antibiotics since. Will discuss with my attending if further IV antibiotics are warranted. I reviewed outpatient ED notes, [facility] physician notes. I reviewed labs including [...] PM EDT I have personally performed a [id number]-glqb diagnostic evaluation of this patient on 03/13/2025. [...] ALT 47. ETOH level 39. LE duplex negative.LLE erythema noted with signs of psoriasis, will treat as cellulitis. Can dc abx if not improving. CXR personally reviewed, diaphragm appears even, trachea midline, no pleural effusions. Code status confirmed, full code. Will hold on diuretics for now until after paracentesis as he may need albuminfrom fluid shifts Physical Exam (Focused elements based [...] asterixis. Psych: Mood appropriate documented in this [id number] Evaluation + Plan note* Assessment & Plan Note - John Becerril MD - 03/14/2025 10:44 AM EDT Associated Problem(s): Decompensated cirrhosis (HCC) 55 y.o. male with a past medical history significant for seizures, HTN, decompensated cirrhosis 2/2alcohol with history of ascites, HE, recent admit [facility] 02/24/2025 for abdominal bloating but left AMA., ED visit 03/11 for large volume ascites but refused admit who presented to [facility] 03/13/2025 for abdominal pains, found to have [...] BID and will schedule EGD in 3 monthsto assess healing (message sent to scheduling). - [...] For patients at high risk for severe withdrawal,recommend high dose Thiamine replacement 500 mg IV TID x 5 days followed by 100 mg daily. RecommendPhenobarb instead of CIWA for withdrawal. Recommend Naltrexone or Acamprosate to aid with cessation - Cellulitis: LLE cellulitis. On Keflex OK to discharge from Hepatology perspective. Follow up scheduled in [facility] Liver clinic in [facility] ([address] [place] [address], [place] [address]). Clinic phone: [phone]. Please include this information on patients Discharge Summary. Patient will be called with specific date and time [id number] Miscellaneous Notes* Assessment & Plan Note - John Becerril MD - 03/14/2025 10:44 AM EDTAssociated Problem(s): Decompensated cirrhosis (HCC) 55 y.o. male with a past medical history significant for seizures, HTN, decompensated cirrhosis 2/2alcohol with history of ascites, HE, recent admit [facility] 02/24/2025 for abdominal bloating but left AMA., ED visit 03/11 for large volume ascites but refused admit who presented to [facility] 03/13/2025 for abdominal pains, found to have [...] BID and will schedule EGD in 3 monthsto assess healing (message sent to scheduling). - [...] For patients at high risk for severe withdrawal,recommend high dose Thiamine replacement 500 mg IV TID x 5 days followed by 100 mg daily. RecommendPhenobarb instead of CIWA for withdrawal. Recommend Naltrexone or Acamprosate to aid with cessation - Cellulitis: LLE cellulitis. On Keflex OK to discharge from Hepatology perspective. Follow up scheduled in [facility] Liver clinic in [facility] ([facility] [facility], [place] [address]). Clinic phone: [phone]. Please include this information on patients Discharge Summary. Patient will be called with specific date and time * Quick Note - Jasiel Rincon PA-C - 03/14/2025 9:31 AM EDT Vascular & Interventional Radiology Provided By [facility] (Diagnostic Radiology, Interventional and Neurointerventional Radiology and Vascular Medicine) Interventional Radiology Department @ [facility]: [phone] 15/06 VIR physician contact: [phone] Weekday VIR nurse practitioner contact @ [facility]: [phone] [facility]: [phone] [email or web address] [facility] MACHINE PACKAGE SEALER DIRECTORY PRE PROCEDURE NOTE Procedure: paracentesis Indication: Aryan Valle is a 55 YO male with a PMH of seizures, HTN, cirrhosis, alcohol use disorder who presented to [facility] with abdominal pain. He was found to [...] To proceed with planned procedure. Other: N/A * Plan of Care - Nj Drew RN - 03/14/2025 12:52 AM EDT Problem: Actual or potential alteration in health [...] level of psychosocial functioning Outcome: Not Met * Quick Note - Daxa Gunter RN - 03/13/2025 4:43 PM EDT VIR I/P PRE-PROCEDURE SUMMARY 1970 ALLERGIES has [...] disorder (HCC) Seizures (HCC) Sleep Apnea No * ED Attestation Note - Jesus Alberto Lindsay MD - 03/13/2025 11:51 AM EDT I performed a substantive part of the MDM during the patient's E/M visit. I personally evaluated and examined the patient. I personally made or approved the documented management plan and acknowledgeits risk of complications. 55-year-old gentleman with past medical history of seizures, hypertension, cirrhosis, alcohol use disorder, and more presents to the emergency department due to concern for decompensated cirrhosis with ascites. Patient was recently seen at the [facility] on February 24 due to abdominal distentionbut left AGAINST MEDICAL ADVICE at then came [...] any overt bleeding, leukopenia with white blood cellcount of 3.73, anemia with hemoglobin 10.2, INR [...] All other components within normal limits Narrative: [facility] Laboratory Services has implemented the eGFR calculation [...] Procedure Abnormality Status --------- ------ CBC Auto Differential[[id number]] Abnormal Final result Please view results for these tests on the individual orders. URINALYSIS Imaging Results Ultrasound Duplex Venous Legs BILATERAL (Results Pending) XR Chest 1 View (Results Pending) Procedures . . documented in this [id number] NoteVascular & Interventional Radiology Provided By [facility] (Diagnostic Radiology, Interventional and Neurointerventional Radiology and Vascular Medicine) Interventional Radiology Department @ [facility]: [phone] 15/06 VIR physician contact: [phone]) Weekday VIR nurse practitioner contact @ [facility]: [phone] [facility]: [phone] [email or web address] [facility] MACHINE PACKAGE SEALER DIRECTORY General Procedure: Procedure: U/S guided diagnostic [...] Full report to follow AUTHENTICATED BY JASIEL RINCON ON 03/14/2025 10:09:59[facility] 03-14-2025 Progress note* Quick Note - Jasiel Rincon PA-C - 03/14/2025 9:31 AM EDT Vascular & Interventional Radiology Provided By [facility] (Diagnostic Radiology, Interventional and Neurointerventional Radiology and Vascular Medicine) Interventional Radiology Department @ [facility]: [phone] 15/06 VIR physician contact: [phone] Weekday VIR nurse practitioner contact @ [facility]: [phone] [facility]: [phone] [email or web address] MACHINE PACKAGE SEALER DIRECTORY PRE PROCEDURE NOTE Procedure: paracentesis Indication: Aryan Valle is a 55 YO male with a PMH of seizures, HTN, cirrhosis, alcohol use disorder who presented to [facility] with abdominal pain. He was found to [...] To proceed with planned procedure. Other: N/A [facility] Work Phone: 1([phone]) 619-559604-22-2025 Consult note* Shandra Keenan DO - 03/14/2025 8:19 AM EDTAssociated Order(s): IP CONSULT TO HEPATOLOGY Resident Consult [...] ascites but refused admit who presented to [facility] 03/13/2025 for abdominal pains, found to have elevated tbili and ascites. Hepatology is consulted for decompensated cirrhosis. Decompensated Cirrhosis - Likely 2/2 alcohol, drinks 3 beers daily. At his most, was drinking 30- pack of beers/ day, hasn't been doing this for ~a decade now, slowly decreasing. No prior autoimmune workup. He states he follows with hepatology, Dr. Parr in [place] but is interested in establishing with [facility]. - Alcohol level elevated at 39 on admit. 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 No history of seizures from alcohol withdrawal. - Baseline weight around 210 pounds. - EV screen: He reports EGD multiple years ago that was normal however unable to see these records.Due for repeat EGD, likely plan to do during this admission. - HE: On home lactulose 20g TID. Continue inpatient. Consider starting rifaximin. - Ascites: s/p paracentesis 2022 in [place] however unable to see these records. He reports they drained a few liters off, states there was no infection. VIR consulted for paracentesis. On home lasix20 mg BID, aldactone 25 mg BID. His diuretic regimen will need adjusted prior to discharge, ideallyto once daily medications as he sometimes misses [...] Will likely want to follow up with [facility] hepatology on discharge. Daily MELD labs. Daily [...] few months now. He initially presented to [place] and was transferred to [facility], he then tells me he was transferred to [facility]. He says he was never admitted to the hospital, per documentation he left AMA. He then represented to the ED on 03/11 with abdominal distention and was foundto have ascites but refused admission. He states [...] runny and low volume. He states his normalweight is 210 pounds and has noticed he [...] and states he had a lot of painwith this procedure previously. He has had a good appetite recently, denies unintentional weight los s. Past Medical/ Surgical/ Social/ Family History Past [...] Resp 16 Ht 5' 11 Wt 105.1 kg(231 lb 11.3 oz) SpO2 94% BMI 32.32 [...] history significant for seizures, HTN, decompensated cirrhosis 2/2alcohol with history of ascites, HE, recent admit [facility] 02/24/2025 for abdominal bloating but left AMA., ED visit 03/11 for large volume ascites but refused admit who presented to [facility] 03/13/2025 for abdominal pains, found to have [...] stop Ceftriaxone and will start diuretics. Recommend 2gram low sodium diet and Nutrition consult for [...] mg BID and send discharge Rx to [facility] on day 1 of admission to expedite [...] For patients at high risk for severe withdrawal,recommend high dose Thiamine replacement 500 mg IV TID x 5 days followed by 100 mg daily. RecommendPhenobarb instead of CIWA for withdrawal. Recommend Naltrexone or Acamprosate to aid with cessation - Cellulitis: LLE cellulitis. On Keflex John Becerril MD [facility] Work Phone: 1([phone]) 559-684904-22-2025 Plan of care note* Plan of Care - Nj Drew RN - 03/14/2025 12:52 AM EDT Problem: Actual or potential alteration in health [...] level of psychosocial functioning Outcome: Not Met [id number] NotePROCEDURE: DIAGNOSTIC AND THERAPEUTIC ULTRASOUND-GUIDED PARACENTESIS HISTORY: Patient is 55-year-old male with ascites here today for paracentesis. PASTING INSPECTOR(S): Jasiel Figueroa M.D. (Supervising) TECHNIQUE AND FINDINGS: [...] sterile ultrasound gel. Following cutaneous anesthesia, a 5-New Zealander one-step catheter was advanced into the fluid [...] FIGUEROA on ThuMar 21, 2025 3:22:59 PM [facility] Progress note* Quick Note - Daxa Gunter RN - 03/13/2025 4:43 PM EDT VIR I/P PRE-PROCEDURE SUMMARY 1970 ALLERGIES has [...] disorder (HCC) Seizures (HCC) Sleep Apnea No [id number] Consult note* Amber Slaughter CNP - 03/13/2025 3:39 PM EDTAssociated Order(s): IP CONSULT TO INTERVENTIONAL RADIOLOGY Images from the original note were not included. Vascular & Interventional Radiology Provided By [facility] FOR PROVIDER USE ONLY: [facility] Interventional Radiology: [phone] [facility] Interventional Radiology: [phone] [facility] Interventional Radiology: [phone] 15/06 VIR physician contact: [phone]) FOR PATIENT AND PROVIDERS: [facility]: [phone] [email or web address] Patient Name: Aryan Valle : 1970 Code Status: Full Code VIR consult received for USg diagnostic paracentesis. Pertinent past medical/surgical history: Aryan Valle is a 55 YO male with a PMH of seizures, HTN, cirrhosis, alcohol use disorder who presented to [facility] with abdominal pain. He was found to have ascites on CT imaging, so we have been consulted to perform a diagnostic paracentesis. Based upon chartreview, patient is appropriate to have this procedure [...] TBD by the VIR control desk @ [phone] pending emergentcases and other scheduling demands. Please call the [facility] VIR out-patient office @ [phone] (Option 0) if requested procedure isdesired after discharge. Pertinent Information: Antiplatelet/Anticoagulation: Lovenox Allergies: [...] dilation, stone removal) Venous interventions: intrathoracic and GAS CUTTER intervention PT/INR < 1.8 (if arterial access, [...] recommended Patient undergoing PCI or within immediate peripro cedural period from cardiac intervention; Use multidisciplinary, shared-decision [...] to balance bleeding vs. thrombotic risks. Amber Slaughter CNP [facility] 03/13/2025 Cosigned by Du Lee MD at 03/14/2025 2:52 PM EDT [facility] Work Phone: 1([phone]) 470-889404-21-2025 History and physical note* Daxa Rubio CNP - 03/13/2025 2:40 PM EDT [facility] History and Physical Note 03/13/25 Aryan Valle 1970 [id number] Assessment/Plan: Aryan Valle is a 55 y.o. male with a history of seizures, HTN, cirrhosis, alcohol use disorder, admission at [facility] 02/24/25 for abdominal distention but left AMA, ED visit 03/11/25 for decompensated cirrhosis and large volume ascites who declined admission to [facility] or transfer to tertiary hospital for hepatology evaluation who presented to [facility] 03/13/2025 with ongoing abdominal pain.ED workup significant for T. bili 18.3, T. [...] DVT Prophylaxis: lovenox Medication Reconciliation: Reviewed using lot technician Current living situation: home Expected Disposition: [...] HTN, cirrhosis, alcohol use disorder, admission at [facility] 02/24/25 for abdominal distention but left AMA, ED visit 03/11/25 for decompensated cirrhosis and large volume ascites who declined admission to [facility] or transfer to tertiary hospital for hepatology evaluation who presented to [facility] 03/13/2025 with ongoing abdominal pain.ED workup significant for T. bili 18.3, T. [...] IV antibiotics for suspected left leg cellulitis. Patientwas unable to bean picker his oral antibiotics since. Will discuss with my attending if further IV antibiotics are warranted. I reviewed outpatient ED notes, [facility] physician notes. I reviewed labs including [...] PM EDT I have personally performed a uacm-df-[facility]ci diagnostic evaluation of this patient on 03/13/2025. [...] ALT 47. ETOH level 39. LE duplex negative.LLE erythema noted with signs of psoriasis, will treat as cellulitis. Can dc abx if not improving. CXR personally reviewed, diaphragm appears even, trachea midline, no pleural effusions. Code status confirmed, full code. Will hold on diuretics for now until after paracentesis as he may need albuminfrom fluid shifts Physical Exam (Focused elements based [...] motor deficits. No asterixis. Psych: Mood appropriate [id number] Emergency department Note* Rosamaria Mcdaniel RN - 03/13/2025 2:19 PM EDT Rounding completed on this patient as follows: Safety - Safety addressed. Cart in low and locked position, side rails up for safety, call light within reach. Plan - Plan discussed with patient. Personal Needs - Personal needs of patient addressed. Duration - Duration discussed with patient. Pt provided warm blanket. [id number] Emergency department Note* Rosamaria Mcdaniel RN - 03/13/2025 2:19 PM EDT Rounding completed on this patient as follows: Safety - Safety addressed. Cart in low and locked position, side rails up for safety, call light within reach. Plan - Plan discussed with patient. Personal Needs - Personal needs of patient addressed. Duration - Duration discussed with patient. Pt provided warm blanket. * Archie Araujo - 03/13/2025 1:01 PM EDT [facility] to write admission orders [id number] -- Checkout complete * Yumiko Nath PA-C - 03/13/2025 12:57 PM EDT PCP - Tana Farmer MD Chief Complaint Patient presents with Abdominal Pain HPI/ Medical Decision Making Patient is a 55-year-old male is presenting today for abdominal pain. Patient has history of seizure disorder, hypertension, hyperlipidemia, alcoholism. Patient states that has been having ongoing abdominal pain for the past 3 months. States is a constant pressure sensation. Was previously seen at [facility] and recommend admission for transaminitis with ascites but declined at that time. Patient wasalso noted to be seen at [facility] in which he eloped before he was able to get an inpatientbed. Does state that he has had some [...] or auditory hallucinations. When patient was at [facility] he also noted concerns for cellulitis of his left lower extremity, physician at that time felt that this was more chronic and not cellulitis but patient was prophylactically covered with Keflex, patient received1 dose and was unable to bean picker prescription. [facility] was unable to do ultrasound at that time as they do not have 24-hour ultrasound. CT at outlying facility consistent with ascites. Medical Decision Making Amount and/or Complexity of Data Reviewed External Data Reviewed: labs, radiology and notes. Labs: ordered. Decision-making details documented in ED Course. ECG/medicine tests: ordered and independent interpretation performed. Decision- making details documented in ED Course. Risk OTC drugs. Prescription drug management. Decision regarding hospitalization. The patient's medical chart, vital signs and nursing notes were reviewed. Diagnostic considerationsduring this visit include but are not limited to: DVT, occlusion, transaminitis, SBP, CHF Work-up in the emergency department included labs and imaging. CBC shows leukopenia and anemia witha hemoglobin of 10.2. BMP within appropriate range. [...] expedite correspondence this note was generated by [employer] voice recognition software. This note was partially [...] All other components within normal limits Narrative: [facility] Services has implemented the eGFR calculation [...] Procedure Abnormality Status --------- ------ CBC Auto Differential[[id number]] Abnormal Final result Please view results for [...] social history. END OF MEDICAL DECISION MAKING Physical Exam Initial Vital Signs BP 107/69 [...] MOLE REMOVAL 2015 PARTIAL HIP ARTHROPLASTY Left 2008 Seizures N/A TONSILLECTOMY 1980 Family History History [...] expedite correspondence this note was generated by [employer] voice recognition software. This note was partially [...] Known Allergies Yumiko Nath PA-C 03/13/25 1303 * Huber Mancia RN - 03/13/2025 11:42 AM EDT Bed: 23 Expected date: Expected time: Means of arrival: Comments: S100 * Breann Lloyd RN - 03/13/2025 10:51 AM EDT Pt states sx times 3 weeks. * Akiko Salgado RN - 03/13/2025 9:23 AM EDT Amb to triage, in ED at [facility] on Thursday, was going to be transferred by he went home. Pt states ascites and double hernia. Denies pain states he cannot eat or drink. Denies n/v/d. Difficult to urinate. Symptoms x 3 weeks, worse today. documented in this [id number] Emergency department Note* Archie Araujo - 03/13/2025 1:01 PM EDT [facility] to write admission orders [id number] -- Checkout complete [id number] Physician Emergency department Note* Yumiko Nath PA-C - 03/13/2025 12:57 PM EDT PCP - Tana Farmer MD Chief Complaint Patient presents with Abdominal Pain HPI/ Medical Decision Making Patient is a 55-year-old male is presenting today for abdominal pain. Patient has history of seizure disorder, hypertension, hyperlipidemia, alcoholism. Patient states that has been having ongoing abdominal pain for the past 3 months. States is a constant pressure sensation. Was previously seen at [facility] and recommend admission for transaminitis with ascites but declined at that time. Patient wasalso noted to be seen at [facility] in which he eloped before he was able to get an inpatientbed. Does state that he has had some [...] or auditory hallucinations. When patient was at [facility] he also noted concerns for cellulitis of his left lower extremity, physician at that time felt that this was more chronic and not cellulitis but patient was prophylactically covered with Keflex, patient received1 dose and was unable to bean picker prescription. [facility] was unable to do ultrasound at that time as they do not have 24-hour ultrasound. CT at outlying facility consistent with ascites. Medical Decision Making Amount and/or Complexity of Data Reviewed External Data Reviewed: labs, radiology and notes. Labs: ordered. Decision-making details documented in ED Course. ECG/medicine tests: ordered and independent interpretation performed. Decision- making details documented in ED Course. Risk OTC drugs. Prescription drug management. Decision regarding hospitalization. The patient's medical chart, vital signs and nursing notes were reviewed. Diagnostic considerationsduring this visit include but are not limited to: DVT, occlusion, transaminitis, SBP, CHF Work-up in the emergency department included labs and imaging. CBC shows leukopenia and anemia witha hemoglobin of 10.2. BMP within appropriate range. [...] expedite correspondence this note was generated by [employer] voice recognition software. This note was partially [...] All other components within normal limits Narrative: [facility] has implemented the eGFR calculation [...] Procedure Abnormality Status --------- ------ CBC Auto Differential[[id number]] Abnormal Final result Please view results for [...] of the visualized osseous structures appear intact. [employer])/ads Workstation ID: [id number] Medications Ordered/Given During ED Visit Medications - No data to display . I saw and evaluated the patient. I have reviewed the chief complaint, triage note, past medical/surgical, family, and social history. END OF MEDICAL DECISION MAKING Physical Exam Initial Vital Signs BP 107/69 [...] expedite correspondence this note was generated by [employer] voice recognition software. This note was partially [...] Known Allergies Yumiko Nath PA-C 03/13/25 1303 [id number] Physician Emergency department Note* ED Attestation Note - Jesus Alberto Lindsay MD - 03/13/2025 11:51 AM EDT I performed a substantive part of the MDM during the patient's E/M visit. I personally evaluated and examined the patient. I personally made or approved the documented management plan and acknowledgeits risk of complications. 55-year-old gentleman with past medical history of seizures, hypertension, cirrhosis, alcohol use disorder, and more presents to the emergency department due to concern for decompensated cirrhosis with ascites. Patient was recently seen at the [facility] on February 24 due to abdominal distentionbut left AGAINST MEDICAL ADVICE at then came [...] any overt bleeding, leukopenia with white blood cellcount of 3.73, anemia with hemoglobin 10.2, INR [...] All other components within normal limits Narrative: [facility] has implemented the eGFR calculation [...] Procedure Abnormality Status --------- ------ CBC Auto Differential[[id number]] Abnormal Final result Please view results for these tests on the individual orders. URINALYSIS Imaging Results Ultrasound Duplex Venous Legs BILATERAL (Results Pending) XR Chest 1 View (Results Pending) Procedures . . [facility] Work Phone: [phone] Emergency department Note* Huber Mancia, DEONNA - 03/13/2025 11:42 AM EDT Bed: 23 Expected date: Expected time: Means of arrival: Comments: S100 [id number] Emergency department Note* Breann Lloyd RN - 03/13/2025 10:51 AM EDT Pt states sx times 3 weeks. [id number] Emergency department Triage note* Akiko Salgado RN - 03/13/2025 9:23 AM EDT Amb to triage, in ED at [facility] on Thursday, was going to be transferred by he went home. Pt states ascites and double hernia. Denies pain states he cannot eat or drink. Denies n/v/d. Difficult to urinate. Symptoms x 3 weeks, worse today. 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 Author Type: Nurse Practitioner Type: Progress Notes Filed: 09/20/2024 11:40 Note Text: Subjective HPI HPI Aryan Valle is a 54 year old male who presents today for CC of left groin pain rates 08/02. This started 1.5 weeks ago/severe now. .Patient [...] I will refer to ER Christian Guerrero APRN.[facility]10-29-2024 History of Present illness Narrative* Christian Geurrero APRN.[facility] - 09/20/2024 11:21 AM EDT Images [...] pain I will refer to DOMINIQUE Guerrero APRN.[facility] documented in this encounterOur [facility] Of [facility]cy [facility]07-23-2024 NoteHNO ID: [id number] Author: ALISHA LAGOS APRN.[facility] Service: ? Author Type: Nurse Practitioner Type: Progress Notes Filed: 06/14/2024 10:00 Note Text: Subjective Patient came in with complaints of right great toe pain. Patient says he noticed some redness. Patient denies any fever chills nausea vomiting. The history is provided by the patient. No speech and language clinician was used. Pain (foot) Review of Systems [...] seem to be getting worse. Alisha Lagos APRN.[facility]07-23-2024 History of Present illness Narrative* Alisha Lagos APRN.[facility] - 06/14/2024 9:36 AM EDT Images from the original note were not included. Subjective Patient came in with complaints of right great toe pain. Patient says he noticed some redness. Patient denies any fever chills nausea vomiting. The history is provided by the patient. No speech and language clinician was used. Pain (foot) Review of Systems [...] seem to be getting worse. Alisha Lagos APRN.BROADCASTING EQUIPMENT MECHANIC documented in this encounterOur Lady Of Mercy [facility]08-26-2023 Discharge summary Author Anselmo Edwards [facility] July 18, 2023 10:41am Note Date/Time July 18, 2023 10 :28am [facility] Medical Records Department [address] [place] [address] Discharge Summary 07/18/23 1027 MR#: [id number] Acct: [id number] Name: ARYAN VALLE Rep #:[id number] : 1970 53 From: Anselmo Edwards MD PCP: Dr. Tana Farmer MD Status:A DM IN [facility] Prov[facility] Date of Admission: 07/16/23 Date of Discharge: 07/18/23 Primary Care Physician: Dr. Tana Farmer MD Consultations 07/16/23 17:05 Consult: Gastroenterology Routine Consulting Provider: [facility] Reason for Consult: Alcohol hepatitis, concern [...] was placed on alcohol withdrawal protocol with [facility]. Ascites ? In the setting of [...] 76.4 H, Lymph % (Auto) 15.9 L, Bulloch % (Auto) 7.3, Eos % (Auto) 0.0, [...] Kar Dave; Phillip Man Instructions Patient Instructions: RAD RN Paracentesis Dc Discharge Orders/Prescriptions Prescriptions: New [...] Self Care Charges/Coding Visit Charges Inpatient E&M: 88795 Disch Hosp >30min 07/18/23 1041 <Electronically signed by Anselmo Edwards MD> Cosigner Signature (if applicable): CC: Dr. Anselmo Edwards MD; Dr. Taan Farmer MD~ Signed [facility] Work Phone: 1(582) 150-718408-26-2023 Progress note Author Anselmo Edwards [facility] July 18, 2023 10:24am Note Date/Time July 18, 2023 8: 11am [facility] Medical Records Department [address] [place] [address] Progress Note - Hospitalist 07/18/23 0810 MR#: [id number] Acct: [id number] Name: ARYAN VALLE Rep #:[id number] : 1970 53 From: Anselmo Edwards MD PCP: Dr. Tana Farmer MD Status:A DM IN Location: [facility] QJ218-0 Reason for Visit Reason for Visit: Diagnoses [...] 76.4 H, Lymph % (Auto) 15.9 L, Bulloch % (Auto) 7.3, Eos % (Auto) 0.0, [...] 35 Minutes Charges/Coding Visit Charges Inpatient E&M: 70295 Subs Hosp L2 07/18/23 1024 <Electronically signed by Anselmo Edwards MD> Cosigner Signature (if applicable): CC: ~ Signed [facility] Work Phone: 1(122) 884-747108-26-2023 Progress note Author Abel Parr [facility] July 18, 2023 10:15am Note Date/Time July 18, 2023 10 :16am [facility] Medical Records Department [address] [place] [address] Progress Note - GI 07/18/23 1014 MR#: [id number] Acct: [id number] Name: ARYAN VALLE YOLIS Rep #:[id number] : 1970 53 From: Abel Parr DO PCP: Dr. Tana Farmer MD Status:A DM IN [facility] Subjective Subjective Patient is status post removal [...] 76.4 H, Lymph % (Auto) 15.9 L, Bulloch % (Auto) 7.3, Eos % (Auto) 0.0, [...] disorder and hypothyroidism who presented to the [facility] ED on 07/16/2023 with worsening abdominal distention. [...] an outpatient. Charges/Coding Visit Charges Inpatient E&M: 95749 Subs Hosp L3 07/18/23 1015 <Electronically signed by Abel Parr DO> Cosigner Signature (if applicable): CC: ~ Signed [facility] Work Phone: 1(969) 721-339208-25-2023 Progress note Author Abel Parr [facility] July 17, 2023 6:48pm Note Date/Time July 17, 2023 6: 48pm [facility] Medical Records Department [address] [place] [address] Progress Note - GI 07/17/23 1845 MR#: [id number] Acct: [id number] Name: VALLE,ARYANErasto LAGOS Rep #:[id number] : 1970 53 From: Abel Parr DO PCP: Dr. Tana Farmer MD Status:A DM IN Location: [facility] YJ138-3 Subjective Subjective Patient underwent paracentesis today. His [...] / 200 1269.95 / 1269.95 Output Total 1950 / 1949 Balance 200 / 200 -681.05 / [...] disorder and hypothyroidism who presented to the [facility] ED on 07/16/2023 with worsening abdominal distention. [...] esophageal varices. Charges/Coding Visit Charges Inpatient E&M: 85947 Subs Hosp L3 07/17/231847 <Electronically signed by Abel Friend DO> Cosigner Signature (if applicable): CC: ~ Signed [facility] Work Phone: 1(960) 226-123208-25-2023 Progress note Author Anselmo Edwards [facility] July 17, 2023 11:15am Note Date/Time July 17, 2023 7: 31am [facility] Medical Records Department [address] [place] [id number] Progress Note - Hospitalist 07/17/23 0729 MR#: [id number] Acct: [id number] Name: ARYAN VALLE Rep #:[id number] : 1970 53 From: Anselmo Edwards MD PCP: Dr. Tana Farmer MD Status:A DM IN Location: [place] [address] Reason for Visit Reason for Visit: Diagnoses [...] (Auto) 70.4 H, Lymph % (Auto) 19.1, Bull[place] % (Auto) 7.8, Eos % (Auto) 1.7, [...] Clarity Clear, Urine pH 7.0, Ur Specific [place] 1.005, Urine Protein Negative, Urine Glucose (UA) [...] evidence of underlying obstruction. Electronically Signed: Moi Pack, DO at 15:28 EDT , Physical Exam [...] documentation, 50Minutes Charges/Coding Visit Charges Inpatient E&M: 20343 Subs Hosp L3 07/17/23 1115 <Electronically signed by Anselmo Edwards MD> Cosigner Signature (if applicable): CC: ~ Signed [facility] Work Phone: 1(265) 980-633108-25-2023 Consult note Author Abel Parr [facility] July 17, 2023 7:22am Note Date/Time July 16, 2023 5: 29pm [facility] Medical Records Department [address] [place] [address] Consultation - GI 07/16/23 1728 MR#: [id number] Acct: [id number] Name: ARYAN VALLE Rep #:[id number] : 1970 53 From: Abel Parr DO PCP: Dr. Tana Farmer MD Status:A DM IN [facility] Consult Data Date of Consult: 07/16/23 [...] as above. No evidence of underlying obstruction. [facility] Medical History Abdominal pain Abnormal [...] (Auto) 70.4 H, Lymph % (Auto) 19.1, [place] % (Auto) 7.8, Eos % (Auto) 1.7, [...] Clarity Clear, Urine pH 7.0, Ur Specific [place] 1.005, Urine Protein Negative, Urine Glucose (UA) [...] Mucomyst and steroid for alcoholic hepatitis with [id number] mg a day. Recheck INR. Charges/Coding Visit Charges Inpatient E&M: 57928 Init Hosp L3 07/17/23 0722 <Electronically signed by Abel Parr DO> Cosigner Signature (if applicable): CC: Dr. Brian Junior DO; Dr. Tana Farmer MD~ Signed [facility] Work Phone: 1(144) 495-801508-25-2023 History and physical note Author Brian Junior [facility] July 17, 2023 12:03am Note Date/Time July 16, 2023 3: 46pm [facility] Medical Records Department [address] [place] [id number] H&P Exam - Hospitalist 07/16/23 1541 MR#: [id number] Acct: [id number] Name: ARYAN VALLE Rep #:[id number] : 1970 53 From: Brian lanier DO PCP: Dr. Tana Farmer MD Status:A DM IN Location: [facility] [id number] HPI - General General Date of Admission: 07/16/23 Date of Service: 07/16/23 Chief Complaint: Alcohol hepatitis HPI Narrative ARYAN VALLE is a 53 M with history of alcohol use disorder, seizure disorder and hypothyroidism who presented to the [facility] ED on 07/16/2023 with worsening abdominal distention. [...] portal hypertension, along with moderate abdominal ascites. [facility] Medical History Abdominal pain Abnormal [...] (Auto) 70.4 H, Lymph % (Auto) 19.1, [place] % (Auto) 7.8, Eos % (Auto) 1.7, [...] evidence of underlying obstruction. Electronically Signed: Moi Pack, DO at 15:28 EDT , Assessment & Plan Assessment/Plan (1) Alcoholic hepatitis: QUALIFIERS: Ascites presence: unspecified Qualified Code(s): K70.10 - Alcoholic hepatitis without ascites PLAN: Plan Patient is a 53 M with history of alcohol use disorder, seizure disorder and hypothyroidism who presented to the [facility] ED on 07/16/2023 with worsening abdominal distention. [...] 55 minutes. Charges/Coding Visit Charges Inpatient E&M: 91020 Init Hosp L2 07/17/23 0003 <Electronically signed by Brian Junior DO> Cosigner Signature (if applicable): CC: Dr. Brian Junior DO; Dr. Tana Farmer MD~ Signed [facility] Work Phone: 1(367) 171-792108-24-2023 Discharge summary Author Caridad [facility] July 16, 2023 4:11pm Note Date/Time July 16, 2023 4: 11pm [facility] Medical Records Department [address] [place] [address] Emergency Department Summary 07/16/23 MR#: [id number] Acct: [id number] Name: ARYAN VALLE Rep #:[id number] : 1970 53 From: Caridad Wilhelm PCP: Dr. Tana Farmer MD Status:A DM IN [facility] HPI - GI History of Present [...] Continues to feel unwell. Decreased bowel movements. [facility] Medical History Abdominal pain Abnormal thyroid function [...] (Auto) 70.4 H Lymph % (Auto) 19.1 [place] % (Auto) 7.8 Eos % (Auto) 1.7 [...] Tana Farmer Disposition Disposition: Acute Care [facility] What to do if you have Problems For any increased pain, shortness of breath, bleeding, nausea or vomiting, chestpain, or any unexpected problems, contact your Primary Care Provider. Call [facility] ([phone]) or report to the closest Emergency Room. Call 911 if necessary. 07/16/23 1611 <Electronically signed by Caridad Go DO> Cosigner Signature (if applicable): CC: Dr. Tana Farmer MD ~ Signed [facility] Work Phone: 1(545) 396-410408-24-2023 Discharge summary Author Caridad [facility] July 16, 2023 4:11pm Note Date/Time July 16, 2023 4: 11pm [facility] Medical Records Department [address] [place] [address] Emergency Department Summary 07/16/23 MR#: [id number] Acct: [id number] Name: ARYAN VALLE Rep #:[id number] : 1970 53 From: Caridad [place] PCP: Dr. Tana Farmer MD Status:A DM IN Location: [facility] [id number] HPI HPI - GI History of Present [...] Continues to feel unwell. Decreased bowel movements. [facility] Medical History Abdominal pain Abnormal thyroid function [...] (Auto) 70.4 H Lymph % (Auto) 19.1 [place] % (Auto) 7.8 Eos % (Auto) 1.7 [...] Tana Farmer Disposition Disposition: Acute Care [facility] What to do if you have Problems For any increased pain, shortness of breath, bleeding, nausea or vomiting, chestpain, or any unexpected problems, contact your Primary Care Provider. Call [facility] ([phone]) or report to the closest Emergency Room. Call 911 if necessary. 07/16/23 1611 <Electronically signed by Caridad Go DO> Cosigner Signature (if applicable): CC: Dr. Tana Farmre MD ~ Signed [facility] Work Phone: 1(705) 813-995007-20-2023 History of Present illness Narrative* Danni Caceres, MEGHNA - 06/11/2023 12:15 PM EDT This note was created using FlowCardiariter. Subjective Aryan Valle is a 53 year [...] ER evaluation. MEGHNA Carbajal [facility] Miscellaneous Notes* Telephone Encounter - Rika Rey [...] Full. 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 Seizures chronic [facility] Work Phone: Evaluation note* Diagnosis Abrasion of right cornea, initial encounter- Primary [facility] Diagnosis Onset Date Resolution Status Change in bowel habits acute Nausea & vomiting acute Swallowing problem acute Abdominal pain chronic Alcoholic hepatitis chronic Erectile dysfunction [facility] Work Phone: Evaluation note* Diagnosis Onset Date Resolution Status Change in bowel habits acute Nausea & vomiting acute Swallowing problem acute Abdominal pain chronic Alcoholic hepatitis chronic Erectile dysfunction chronic Change in bowel habits acute Decreased urination acute Abdominal pain chronic Alcoholic hepatitis chronic Abdominal ascites acute Jaundice acute Alcoholic hepatitis [facility] Work Phone: Evaluation note* Diagnosis Onset Date Resolution Status Change in bowel habits acute Nausea & vomiting acute Swallowing problem acute Abdominal pain chronic Alcoholic hepatitis chronic Erectile dysfunction chronic Change in bowel habits acute Decreased urination acute Abdominal pain chronic Alcoholic hepatitis chronic Abdominal ascites acute Cirrhosis acute Jaundice acute Alcoholic hepatitis [facility] Work Phone: Evaluation note* Diagnosis Onset Date [...] acute Hypertension chronic Peripheral neuropathy chroni c [facility] Work Phone: Evaluation note* Diagnosis Onset Date [...] chronic History of alcohol abuse chr onic [facility] Work Phone: Evaluation note* Diagnosis Onset Date Resolution Status Alcoholic hepatitis chronic Dermatitis chronic Elevated CA 19-9 level chron ic Hypertension chronic Hypothyroidism chronic Peripheral neuropathy chroni c [facility] Work Phone: Evaluation note* Diagnosis Skin infection- Primary Unspecified local infection of skin and subcutaneous tissue Pain Generalized pain [facility] Diagnosis Left inguinal pain- Primary Abdominal pain, left lower quadrant documented in this encounter [facility] note* Diagnosis Decompensated cirrhosis (HCC)- Primary Transaminitis Nonspecific elevation of levels of transaminase or lactic acid dehydrogenase (LDH) Ascites Decompensated cirrhosis (HCC) ETOH abuse Nondependent alcohol abuse, unspecified drinking behavior ETOH abuse Nondependent alcohol abuse, unspecified drinking behavior documented in this encounter [facility] note* Diagnosis Procedure not carried out- Primary Procedure not carried out for other reasons documented in this encounter [facility] note* Diagnosis Closed fracture of multiple ribs of both sides, initial encounter documented in this encounter [facility] Discharge instructionsAmbulatory Orders* Pain Management Location: None [facility] Work Phone: Patient's home Plan of care note* Visit Details Visit 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 Problems Problem Description Start Date Status Goals Interve ntions GLOBAL [employer]VERTIS[employer] Supervisor Nuclear Medicine Care Needs Disciplines: GLOBAL [employer]VERTIS[employer] 05/05/2025 Resolved on 05/05/2025 1 goal linked to scheduled/documen vivian intervention 1 goal intervention scheduled/document ed in this visit [employer] General Evaluation and Treatment Disciplines: GLOBAL HEAD ADVERTISER [employer] 05/05/2025 Resolved on 05/05/2025 1 goal linked to scheduled/documen vivian intervention 1 goal intervention scheduled/document ed in this visit [employer] Social/Emotional Support Disciplines: GLOBAL HEAD ADVERTISER [employer] 05/05/2025 Resolved on 05/05/2025 1 goal linked to scheduled/documen vivian intervention 1 goal intervention scheduled/document ed in this visit [employer] Caregiver Willingness Disciplines: GLOBAL HEAD [employer]VERTISER [employer] 05/05/2025 Resolved on 05/05/2025 1 goal linked to scheduled/documen vivian intervention 1 goal intervention scheduled/document ed in this visit [employer] Referral Disciplines: Skilled Services 05/05/2025 Resolved on 05/05/2025 1 goal linked to scheduled/documen vivian intervention 1 goal intervention scheduled/document ed in this visit Goals Goal Associated Problem Outcome Goal Met? Visit Notes Patients Supervisor Nuclear Medicine Care Needs Will Be Met Description: Patients nursing home care needs will be met by information provided and referrals made. [employer] Senior Living Care Needs Completed Yes Complete General Evaluation and Treatment Description: patient and caregiver will demonstrate compliance with and participation in the plan of treatment. [employer] General Evaluation and Treatment Completed Yes Provide Social/Emotional Support Description: patient will have adequate social emotional support as evidence by consistent contact with family and friends. [employer] Social/Emotional Support Completed Yes Determine Caregiver Willingness to Care for Patient Description: Caregiver will demonstrate willingness and ability to adequately care for the patient as evidence by providing a safe home environment and providing assistance with all ADL/IADL needs. 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 Adequate social/emotional support Problem:GLOBAL HEAD ADVERTISER [employer]UT[employer] Social/Emotional Support Goal:Provide Social/Emotional Support Completed patient has adequate natural supports and SENIOR HR GENERALIST coordinating with Victim's Assistance services for the patient. Caregiver Instruction Problem:GLOBAL HEAD ADVERTIS[employer] Caregiver Willingness Goal:Determine Caregiver Willingness to Care for Patient Completed Caregiver demonstrates willingness and demonstrates ability to assitst in patients ADLs/IADLs needs. [employer] evaluation and treatment Description: GLOBAL HEAD ADVERTISER [employer] Referral eval and treat for Community Resources. Problem:GLOBAL HEAD ADVERTISER SOLUTIONS Referral Goal:Patient will be referred to additional discipline as needed Completed documented in this encounter [facility] home Plan of care note* Visit Details Visit Type -SN SOC Discipline -Fci Problems Problem Description Start Date Status Goals [...] and pain management. [facility]* Visit Details Visit Type -SN ROUTINE Discipline -Fci Problems Problem Description Start Date Status Goals [...] intervention scheduled/document ed in this visit SN Integumentary/Wou nds Disciplines: SN 05/05/2025 Active 1 goal linked [...] to be achieved by 06/09/25. Pain No Patient/Caregiver will have improved healing and be free of signs and symptoms of complications Description: Patient/caregiver will verbalize management strategies to promote wound healing & prevent complications as evidenced by improved healing & no complications by 05/22/25. SN Integumentary/Wounds No Patient/Caregiver will verbalize and/or demonstrate understanding [...] Completed Patient instructed on adhering to medication schedule. Risk of Sepsis Description: Patient is at [...] Eliminating Environmental Hazards: Keep pathways clear and Keep rooms and walkways well lit Managing Impaired Functional Mobility: Use assistive device(s): front wheeled walker and Caregiver to provide assist with: Steps and ADL/IADLs Managing Pain: Recommended pain medication schedule and management of side effects to minimize fall risk Instruct on pain and instruct on strategies to control pain Problem:Pain Goal:Manage Pain Completed patient instructed on techniques to control pain including Pharmacological measures and Non-Pharmacological measures; rest, positioning/elevation, mobility/therapeutic exercise, distraction, breathing/relaxation and use of DME/assistive devices. Wound Care: Perform wound care (1) Description: Wound Care Order: Incision location: R lateral chest Wound type (etiology): CT site Order: remove suture in 7-10 days from hospital DC. Wound care to be completed by skilled clinician only. Problem:SN Integumentary/Wounds Goal:Patient/Caregiv er will have improved healing and be free of signs and symptoms of complications Completed Completed by SN. Patient did tolerate well. Assess and instruct patient/caregiver on other significant comorbidity(s) or diseae process affecting plan of care Description: Significant comorbidity(s) or diseae process affecting plan of care: liver cirrhosis Problem:SN Other significant comorbidities/diseas e process Goal:Patient/Caregiv er will verbalize and/or demonstrate understanding of additional comorbidity(s) or disease process affecting plan of care Completed patient instructed on follow up with Dr Flores. Instruct and educate on knowledge deficits Problem:SN Learning Assessment Goal:Demonstrate understanding of education Completed patient verbalize and/or demonstrate understanding of nursing education completed today. Education methods include: verbal cues and visual cues. Further education required to improve knowledge and compliance with fall prevention/home safety strategies, gastrointestinal care management, incision/wound care management, medication management, nutrition, pain management and pulmonary disease management. documented in this encounter [facility] home Plan of care note* Visit Details Visit Type -PT EVAL Discipline -Physical Therapy Problems Problem Description Start Date Status Goals Interve ntions Medication Education Disciplines: Skilled Services 05/05/2025 Active 1 goal linked to scheduled/document ed intervention 1 goal intervention scheduled/document ed in this visit Sepsis Disciplines: Skilled Services 05/05/2025 Active 1 goal linked to scheduled/document ed intervention 1 goal intervention scheduled/document ed in this visit PT Referral Disciplines: Skilled Services 05/05/2025 Active 1 goal linked to scheduled/document ed intervention 1 goal intervention scheduled/document ed in this visit Physician Specific Parameters Disciplines: Skilled Services 05/05/2025 Active 1 goal linked to scheduled/document ed intervention 1 goal intervention scheduled/document ed in this visit Risk for [...] goal intervention scheduled/document ed in this visit PT Impaired muscle performance and/or ROM Disciplines: PT 05/17/2025 Active 1 goal linked to scheduled/document ed intervention 1 goal intervention scheduled/document ed in this visit PT Impaired mobility Disciplines: PT 05/17/2025 Active 1 goal linked to scheduled/document ed intervention 1 goal intervention scheduled/document ed in this visit PT Impaired gait Disciplines: PT 05/17/2025 Active 2 goals linked to scheduled/document ed interventions 2 goal interventions scheduled/document ed in this visit PT Learning Assessment Disciplines: PT 05/17/2025 Active 1 goal linked to scheduled/document ed [...] if suspected by 06/09/25. Sepsis No Patient will be referred to additional discipline as needed PT Referral No Patient to maintain parameters within physician-specified [...] be achieved by 06/09/25. Pain No Manage discharge planning Description: Patient/caregiver will verbalize understanding of ongoing discharge plan provided related to disease management, arrangements for outpatient and/or community services, obtaining medications, supplies, and DME, as needed throughout certification period. Discharge No Improved Muscle Performance and/or ROM Description: Short term goal: Patient will demonstrate improved muscle performance to meet functional goals, to be achieved by 06/03/25. 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 PT Impaired mobility No Improved Stair Climbing Description: LTG: Patient will demonstrate improved stair negotiation as evidenced by ascend/descend 15 steps with railing Independently to safely access all areas of the home, to be achieved by 06/03/25. PT Impaired gait No Improved Gait Description: LTG: Patient will demonstrate improved gait ability as evidenced by ambulation 150 feet with SPC independently with AD, to return to safe community ambulation, to be achieved by 06/03/25. PT Impaired gait No Demonstrate understanding of education Description: Patient and/or caregiver will understand educational instruction to be achieved by 06/03/25. PT Learning Assessment No Interventions Intervention Associated Problem/Goal [...] and adhere to medication schedule Completed Patient and Caregiver instructed on adhering to medication schedule. Risk of Sepsis Description: Patient is at risk for sepsis. Monitor closely for s/s of sepsis. Problem:Sepsis Goal:Patient/caregiv er will be able to identify and report symptoms of sepsis Completed PT evaluation and treatment Description: Evaluate and treat for the assessment of functional deficits and establishment of appropriate interventions and education, including recommendations for functional mobility training, balance training for fall reduction, and strengthening. Problem:PT Referral Goal:Patient will be referred to additional discipline as needed Completed SPO2 Description: Notify Dr. Farmer if pulse ox is <92% at rest. Problem:Physician Specific Parameters Goal:Patient to maintain parameters within physician-specified ranges throughout certification period Completed Instruct on individual fall risk factors and strategies to prevent falls and injuries caused by falls. Problem:Risk for Falls Goal:Manage Risk for falls Completed Interventions implemented and instructions provided this visit to reduce risk of falls:Assistive devices to be used: FWW. Instruct on pain and instruct on strategies to control pain Problem:Pain Goal:Manage Pain Completed patient instructed on techniques to control pain including Pharmacological measures and Non-Pharmacological measures; rest, positioning/elevation, mobility/therapeutic exercise, use of DME/assistive devices and use of thermal modalities, apply ice to affected area. Instruct on ongoing discharge plan Problem:Discharge Goal:Manage discharge planning Completed Ongoing Discharge plan: Discharge plan discussed with patient and caregiver including frequency and duration for home PT and plan for transition to: live independently at home without ongoing services. Physical Therapy Therapeutic Exercises Problem:PT Impaired muscle performance and/or ROM Goal:Improved Muscle Performance and/or ROM Completed Performed standing exercises with BL UE support hip flexion, hip abduction, heel raises all x 10 reps. Physical Therapy Transfer Training Problem:PT Impaired mobility Goal:Improved Transfers Completed Transfer training and instruction to patient on safe transfers to and from chair with supervision and verbal, tactile and visual cues for sequencing extremities and to promote anterior weight shifting. Recommended the following adaptive equipment/durable medical equipment: walker. Physical Therapy Stair Training Problem:PT Impaired gait Goal:Improved Stair Climbing Completed Stair training and instruction to patient on safe stair climbing, ascend/descend 7 steps, with railing with CGA and verbal cues for sequencing. Physical Therapy Gait Training Problem:PT Impaired gait Goal:Improved Gait Completed Gait training and instruction to patient on safe ambulation with front wheeled walker for 40 feet with supervision, with verbal cues for corrections of gait deviations including increase BL step length, increase heel strike/toe off and to reduce reliance on BL LEs. Instruct and educate on knowledge deficits Problem:PT Learning Assessment Goal:Demonstrate understanding of education Completed patient and caregiver verbalize and/or demonstrate understanding of physical therapy education including pain management, fall prevention strategies, home safety, functional activity and home exercise program. [facility] Visit Details Visit Type -SN ROUTINE Discipline -[facility] Problems Problem Description Start Date Status Goals [...] goal intervention scheduled/document ed in this visit Risk for [...] to be achieved by 06/09/25. Nutrition/Hydration No Patient/Caregiver will verbalize and/or demonstrate understanding [...] and adhereing to medication schedule Problem:Medication Education Goal:Patient/caregive r will demonstrate ability to obtain, store, identify and administer ordered medications, keep accurate medication list in home, and adhere to medication schedule Completed Patient instructed on adhering to medication schedule. Risk of Sepsis Description: Patient is at risk for sepsis. Monitor closely for s/s of sepsis. Problem:Sepsis Goal:Patient/caregive r will be able to identify and report symptoms of sepsis Completed SPO2 Description: Notify Dr. Farmer if pulse ox is <92% at rest. Problem:Physician Specific Parameters Goal:Patient to maintain parameters within physician-specified ranges throughout certification period Completed Instruct on individual fall risk factors and strategies to prevent falls and injuries caused by falls. Problem:Risk for Falls Goal:Manage Risk for falls Completed SN: Patient instructed on Eliminating Environmental Hazards: Keep pathways clear and Keep rooms and walkways well lit and use walker at all times Instruct on pain and instruct on strategies to control pain Problem:Pain Goal:Manage Pain Completed patient instructed on techniques to control pain including Pharmacological measures and Non-Pharmacological measures; positioning/elevation and breathing/relaxation. Define patient s appetite/hydration status and implement strategies to improve compliance with prescribed diet and/or healthy nutrition. Problem:Nutrition/Hyd ration Goal:Manage Nutrition/Hydration Completed instructed patient on implementing strategies to comply with healthy nutrition and adequate hydration Assess and instruct patient/caregiver on other significant comorbidity(s) or diseae process affecting plan of care Description: Significant comorbidity(s) or diseae process affecting plan of care: liver cirrhosis Problem:SN Other significant comorbidities/disease process Goal:Patient/Caregive r will verbalize and/or demonstrate understanding of additional comorbidity(s) or disease process affecting plan of care Completed patient instructed on s/s exacerbation. Instruct and educate on knowledge deficits Problem:SN Learning Assessment Goal:Demonstrate understanding of education Completed patient verbalize and/or demonstrate understanding of nursing education completed today. Education methods include: verbal cues. Further education required to improve knowledge and compliance with fall prevention/home safety strategies, incision/wound care management, medication management, nutrition, pain management and pulmonary disease management. [facility] Visit Details Visit Type -OT EVAL Discipline -Occupational Therapy Problems Problem Description Start Date Status Goals Interve ntions OT Referral Disciplines: Skilled Services 05/05/2025 Resolved on 05/18/2025 1 goal linked to scheduled/documen vivian intervention 1 goal intervention scheduled/document ed in this visit Physician Specific Parameters Disciplines: Skilled Services 05/05/2025 Active 1 goal linked to scheduled/documen vivian intervention 2 goal interventions scheduled/document ed in this visit Pain Disciplines: Skilled Services 05/05/2025 Active 1 goal linked to scheduled/documen vivian intervention 1 goal intervention scheduled/document ed in this visit Discharge Disciplines: Skilled Services 05/05/2025 Active 1 goal linked to scheduled/documen vivian intervention 1 goal intervention scheduled/document ed in this visit OT Learning Assessment Disciplines: OT 05/18/2025 Active 1 goal linked to scheduled/documen vivian intervention 1 goal intervention scheduled/document ed in this visit OT Functional Transfers Disciplines: OT 05/18/2025 Active 1 goal linked to scheduled/documen vivian intervention 1 goal intervention scheduled/document ed in this visit Goals Goal Associated Problem Outcome Goal Met? Visit Notes Patient will be referred to additional discipline as needed OT Referral Completed Yes Patient to maintain parameters within physician-specified ranges throughout certification period Physician Specific Parameters No Manage Pain Description: Patient/caregiver will verbalize knowledge and understanding of appropriate techniques to control pain, including pain medication and non-pharmacological techniques. Patient will verbalize or demonstrate an acceptable level of pain as evidenced by a pain score of <6/10 and improvement in ability to perform activities of daily living to be achieved by 06/09/25. Pain No Manage discharge planning Description: Patient/caregiver will verbalize understanding of ongoing discharge plan provided related to disease management, arrangements for outpatient and/or community services, obtaining medications, supplies, and DME, as needed throughout certification period. Discharge No Demonstrate understanding of education Description: Patient and/or caregiver will understand educational instruction to be achieved by 06/03/25. OT Learning Assessment No Improved Functional Transfers Description: patient will demonstrate safe transfers to/from toilet and shower/tub with independent assistance and no verbal cues with use of DME to be achieved by 06/03/25. OT Functional Transfers No Interventions Intervention Associated Problem/Goal Status Variance Visit Notes OT evaluation and treatment Description: Evaluate and treat for the assessment of functional deficits and establishment of appropriate interventions and education to address: I/ADL training, DME/adaptive equipment recommendations, safety awareness and home safety and falls prevention recommendations. Problem:OT Referral Goal:Patient will be referred to additional discipline as needed Completed Blood Pressure Description: Notify if resting SBP is <90 or >160. Problem:Physician Specific Parameters Goal:Patient to maintain parameters within physician-specified ranges throughout certification period Completed SPO2 Description: Notify Dr. Farmer if pulse ox is <92% at rest. Problem:Physician Specific Parameters Goal:Patient to maintain parameters within physician-specified ranges throughout certification period Completed Instruct on pain and instruct on strategies to control pain Problem:Pain Goal:Manage Pain Completed patient instructed on techniques to control pain including Pharmacological measures and Non-Pharmacological measures; rest and positioning/elevation. Instruct on ongoing discharge plan Problem:Discharge Goal:Manage discharge planning Completed Ongoing Discharge plan: Discharge plan discussed with patient including frequency and duration for home OT and plan for transition to: caregiver assistance. Instruct and educate on knowledge deficits Problem:OT Learning Assessment Goal:Demonstrate understanding of education Completed Education methods include: verbal cues. Patient/Caregiver require further education to improve knowledge and compliance with fall prevention strategies, pain management, home safety and functional transfers. Transfer Training Problem:OT Functional Transfers Goal:Improved Functional Transfers Completed Instruct patient on safe transfers and proper techniques to perform to and from toilet with superv to raised toilet seat, he is fearful of raised toilet seat due it moveing slight when he sits on it. He declines shower transfers on eval [facility] Visit Details Visit Type -LANE ROUTINE Discipline -Occupational Therapy Problems Problem Description Start Date Status Goals Interve ntions Medication Education Disciplines: Skilled Services 05/05/2025 Active 1 goal linked to scheduled/document ed intervention 1 goal intervention scheduled/documente d in this visit Sepsis Disciplines: Skilled Services 05/05/2025 Active 1 goal linked to scheduled/document ed intervention 1 goal intervention scheduled/documente d in this visit Physician Specific Parameters Disciplines: Skilled Services 05/05/2025 Active 1 goal linked to scheduled/document ed intervention 2 goal interventions scheduled/documente d in this visit Risk for Falls Disciplines: Skilled Services 05/05/2025 Active 1 goal linked to scheduled/document ed intervention 1 goal intervention scheduled/documente d in this visit Pain Disciplines: Skilled Services 05/05/2025 Active 1 goal linked to scheduled/document ed intervention 1 goal intervention scheduled/documente d in this visit Discharge Disciplines: Skilled Services 05/05/2025 Active 1 goal linked to scheduled/document ed intervention 1 goal intervention scheduled/documente d in this visit OT Learning Assessment Disciplines: OT 05/18/2025 Active 1 goal linked to scheduled/document ed intervention 1 goal intervention scheduled/documente d in this visit OT Upper Body Strength and/or ROM Disciplines: OT 05/18/2025 Active 1 goal linked to scheduled/document ed intervention 1 goal intervention scheduled/documente d in this visit OT Balance Disciplines: OT 05/18/2025 Active 1 goal linked to scheduled/document ed intervention 1 goal intervention scheduled/documente d in this visit Goals Goal Associated Problem [...] be achieved by 06/09/25. Pain No Manage discharge planning Description: Patient/caregiver will verbalize understanding of ongoing discharge plan provided related to disease management, arrangements for outpatient and/or community services, obtaining medications, supplies, and DME, as needed throughout certification period. Discharge No Demonstrate understanding of education Description: Patient and/or caregiver will understand educational instruction to be achieved by 06/03/25. OT Learning Assessment No Improved Strength and/or ROM Description: patient will verbalize/demonstrate independence with home exercise program, to improve functional performance, to be achieved by 06/03/25. OT Upper Body Strength and/or ROM No Improved Balance Description: Patient will demonstrate improved standing balance to meet functional goals as evidenced by pt standing with uniatleral suppport x 5 min during functional adl/iadl and ue task to be achieved by 06/03/25. OT Balance No Interventions Intervention Associated Problem/Goal Status Variance Visit Notes Medication Education Description: Evaluate/instruct patient/caregiver on obtaining, storing, identifying and administering ordered medications as well as keeping accurate medication list in the home and adhereing to medication schedule Problem:Medication Education Goal:Patient/caregive r will demonstrate ability to obtain, store, identify and administer ordered medications, keep accurate medication list in home, and adhere to medication schedule Completed Patient instructed on importance of keeping accurate medication list in home, need to take up-to-date medication list to all medical provider appointments and adhering to medication schedule. Risk of Sepsis Description: Patient is at risk for sepsis. Monitor closely for s/s of sepsis. Problem:Sepsis Goal:Patient/caregive r will be able to identify and report [...] for Falls Goal:Manage Risk for falls Completed OT: Patient instructed on Eliminating Environmental Hazards: Keep pathways clear, Keep rooms and walkways well lit, Wear supportive shoes or non-skid socks and Keep frequently used items within reach Managing Pain Instruct on pain and instruct on strategies to control pain Problem:Pain Goal:Manage Pain Completed patient instructed on techniques to control pain including Pharmacological measures and Non-Pharmacological measures; rest, positioning/elevation and distraction. Instruct on ongoing discharge plan Problem:Discharge Goal:Manage discharge planning Completed Ongoing Discharge plan: Discharge plan discussed with patient including frequency and duration for home OT and plan for transition to: caregiver assistance. Instruct and educate on knowledge deficits Problem:OT Learning Assessment Goal:Demonstrate understanding of education Completed Education methods include: verbal cues. Patient/Caregiver require further education to improve knowledge and compliance with fall prevention strategies, pain management, balance training, home safety, infection control precautions, home exercise program, endurance training and discharge planning. Therapeutic Exercises Problem:OT Upper Body Strength and/or ROM Goal:Improved Strength and/or ROM Completed Instructed patient/caregiver on therapeutic exercise including: upper body exercises: Seated B UE AROM with shoulder flexion/extension, shoulder abduction/adduction, bicep flexion/extension, supination/pronation, tricep flexion/extension, shoulder internal/external rotation. Provided verbal, visual and written cues for pacing and proper technique. Patient performed 1 set (s) of 10 reps this date. Educated Pt. to increase reps/sets and to add light resistance as tolerated to increase overall strength/activity tolerance for increased performance with daily functional tasks. Instructed patient/caregiver for HEP to be performed 1-2 sets(s) of 10 reps, daily. HEP program developed, issued and reviewed. Balance Training Problem:OT Balance Goal:Improved Balance Completed Pt. demo fair- stand balance with FWW, no LOB, Supervision for safety, Pt. demo about a 3 mintue standing tolerance to decrease fall risk/increase independence with daily functional tasks. [facility] Visit Details Visit Type -SN ROUTINE Discipline -[facility] Problems Problem Description Start Date Status Goals Interve ntions Medication Education Disciplines: Skilled Services 05/05/2025 Active 1 goal linked to scheduled/document ed intervention 1 goal intervention scheduled/documente d in this visit Sepsis Disciplines: Skilled Services 05/05/2025 Active 1 goal linked to scheduled/document ed intervention 1 goal intervention scheduled/documente d in this visit Physician Specific Parameters Disciplines: Skilled Services 05/05/2025 Active 1 goal linked to scheduled/document ed intervention 2 goal interventions scheduled/documente d in this visit Risk for Falls Disciplines: Skilled Services 05/05/2025 Active 1 goal linked to scheduled/document ed intervention 1 goal intervention scheduled/documente d in this visit Pain Disciplines: Skilled Services 05/05/2025 Active 1 goal linked to scheduled/document ed intervention 1 goal intervention scheduled/documente d in this visit Nutrition/Hydra tion Disciplines: Skilled Services 05/05/2025 Active 1 goal linked to scheduled/document ed intervention 1 goal intervention scheduled/documente d in this visit SN Integumentary/W ounds Disciplines: SN 05/05/2025 Active 1 goal linked to scheduled/document ed intervention SN Learning Assessment Disciplines: SN 05/05/2025 Active 1 goal linked to scheduled/document ed intervention 1 goal intervention scheduled/documente d in this visit Goals Goal Associated Problem [...] to be achieved by 06/09/25. Nutrition/Hydration No Patient/Caregiver will have improved healing and be free of signs and symptoms of complications Description: Patient/caregiver will verbalize management strategies to promote wound healing & prevent complications as evidenced by improved healing & no complications by 05/22/25. SN Integumentary/Wounds Completed Yes Demonstrate understanding of education Description: Patient and/or [...] Completed Patient instructed on adhering to medication schedule. Risk of Sepsis Description: Patient is at [...] Eliminating Environmental Hazards: Keep pathways clear and Keep rooms and walkways well lit and use walker Instruct on pain and instruct on strategies to control pain Problem:Pain Goal:Manage Pain Completed patient instructed on techniques to control pain including Non-Pharmacological measures; rest and positioning/elevation. Define patient s appetite/hydration status and implement strategies to improve compliance with prescribed diet and/or healthy nutrition. Problem:Nutrition/Hy dration Goal:Manage Nutrition/Hydration Completed reinforced patient on implementing strategies to comply with healthy nutrition and adequate hydration Instruct and educate on knowledge deficits Problem:SN Learning Assessment Goal:Demonstrate understanding of education Completed patient verbalize and/or demonstrate understanding of nursing education completed today. Education methods include: verbal cues. Further education required to improve knowledge and compliance with fall prevention/home safety strategies, gastrointestinal care management, incision/wound care management, medication management, nutrition and pain management. documented in [facility]* Visit Details Visit Type -[employer] ROUTINE Discipline -Physical Therapy Problems Problem Description Start Date Status Goals Interve ntions Physician Specific Parameters Disciplines: Skilled Services 05/05/2025 Active 1 goal linked to scheduled/document ed intervention 1 goal intervention scheduled/documente d in this visit Risk for Falls Disciplines: Skilled Services 05/05/2025 Active 1 goal linked to scheduled/document ed intervention 1 goal intervention scheduled/documente d in this visit Pain Disciplines: Skilled Services 05/05/2025 Active 1 goal linked to scheduled/document ed intervention 1 goal intervention scheduled/documente d in this visit PT Impaired gait Disciplines: PT 05/17/2025 Active 1 goal linked to scheduled/document ed intervention 1 goal intervention scheduled/documente d in this visit PT Learning Assessment Disciplines: PT 05/17/2025 Active 1 goal linked to scheduled/document ed intervention 1 goal intervention scheduled/documente d in this visit Goals Goal Associated Problem Outcome Goal Met? Visit Notes Patient to maintain parameters within physician-specified ranges [...] to be achieved by 06/09/25. Pain No Improved Gait Description: LTG: Patient will demonstrate improved gait ability as evidenced by ambulation 150 feet with SPC independently with AD, to return to safe community ambulation, to be achieved by 06/03/25. PT Impaired gait No Demonstrate understanding of education Description: Patient and/or caregiver will understand educational instruction to be achieved by 06/03/25. PT Learning Assessment No Interventions Intervention Associated Problem/Goal Status Variance Visit Notes SPO2 Description: Notify Dr. Farmer if pulse ox is <92% at rest. Problem:Physician Specific Parameters Goal:Patient to maintain parameters within physician-specified ranges throughout certification period Completed Instruct on individual fall risk factors and strategies to prevent falls and injuries caused by falls. Problem:Risk for Falls Goal:Manage Risk for falls Completed PT: Patient instructed on Managing Impaired Functional Mobility: Use assistive device(s): front wheeled walker and Caregiver to provide assist with: Ambulation, Steps, Transfers and ADL/IADLs Managing Pain Instruct on pain and instruct on strategies to control pain Problem:Pain Goal:Manage Pain Completed patient instructed on techniques to control pain including Non-Pharmacological measures; positioning/elevation , mobility/therapeutic exercise, distraction, use of DME/assistive devices and use of thermal modalities, apply ice to affected area Physical Therapy Gait Training Problem:PT Impaired gait Goal:Improved Gait Completed Gait training and instruction to patient on safe ambulation with front wheeled walker for feet with supervision, with verbal cues Instruct and educate on knowledge deficits Problem:PT Learning Assessment Goal:Demonstrate understanding of education Completed patient verbalize and/or demonstrate understanding of physical therapy education including orthopedic condition management, pain management, fall prevention strategies, home safety, functional activity and home exercise program. Education methods include: verbal cues and visual cues. Further education required to improve knowledge and compliance with orthopedic condition management, pain management, fall prevention strategies, home safety, functional activity and home exercise program. [facility] Visit Details Visit Type -OT DISC DC W VIS IT Discipline -Occupational Therapy Problems Problem Description Start Date Status Goals Interve ntions Medication Education Disciplines: Skilled Services 05/05/2025 Active 1 goal linked to scheduled/documen vivian intervention 1 goal intervention scheduled/document ed in this visit Sepsis Disciplines: Skilled Services 05/05/2025 Active 1 goal linked to scheduled/documen vivian intervention 1 goal intervention scheduled/document ed in this visit Physician Specific Parameters Disciplines: Skilled Services 05/05/2025 Active 1 goal linked to scheduled/documen vivian intervention 2 goal interventions scheduled/document ed in this visit Risk for Falls Disciplines: Skilled Services 05/05/2025 Active 1 goal linked to scheduled/documen vivian intervention 1 goal intervention scheduled/document ed in this visit Pain Disciplines: Skilled Services 05/05/2025 Active 1 goal linked to scheduled/documen vivian intervention 1 goal intervention scheduled/document ed in this visit Discharge Disciplines: Skilled Services 05/05/2025 Active 1 goal linked to scheduled/documen vivian intervention 1 goal intervention scheduled/document ed in this visit OT Learning Assessment Disciplines: OT 05/18/2025 Resolved on 05/29/2025 1 goal linked to scheduled/documen vivian intervention 1 goal intervention scheduled/document ed in this visit OT ADLs/IADLs Disciplines: OT 05/18/2025 Resolved on 05/29/2025 1 goal linked to scheduled/documen vivian intervention 1 goal intervention scheduled/document ed in this visit OT Upper Body Strength and/or ROM Disciplines: OT 05/18/2025 Resolved on 05/29/2025 1 goal linked to scheduled/documen vivian intervention 1 goal intervention scheduled/document ed in this visit OT Functional Transfers Disciplines: OT 05/18/2025 Resolved on 05/29/2025 1 goal linked to scheduled/documen vivian intervention 1 goal intervention scheduled/document ed in this visit OT Balance Disciplines: OT 05/18/2025 Resolved on 05/29/2025 1 goal linked to scheduled/documen vivian intervention [...] be achieved by 06/09/25. Pain No Manage discharge planning Description: Patient/caregiver will verbalize understanding of ongoing discharge plan provided related to disease management, arrangements for outpatient and/or community services, obtaining medications, supplies, and DME, as needed throughout certification period. Discharge No Demonstrate understanding of education Description: Patient and/or caregiver will understand educational instruction to be achieved by 06/03/25. OT Learning Assessment Completed Yes Improved ADLs/IADLs performance Description: patient will verbalize understanding of instructions and demonstrate improved performance of lower body dressing, bathing, meal prep and laundry to independence as evidenced by improved Zachary ADL Index score to at least increase by 10 to be achieved by 06/03/25. OT ADLs/IADLs Appropriate For Discharge Yes Partially met. Pt has assist for laundry per her choice. Improved Strength and/or ROM Description: patient will verbalize/demonstrate independence with home exercise program, to improve functional performance, to be achieved by 06/03/25. OT Upper Body Strength and/or ROM Completed Yes Improved Functional Transfers Description: patient will demonstrate safe transfers to/from toilet and shower/tub with independent assistance and no verbal cues with use of DME to be achieved by 06/03/25. OT Functional Transfers Completed Yes Improved Balance Description: Patient will demonstrate improved standing balance to meet functional goals as evidenced by pt standing with uniatleral suppport x 5 min during functional adl/iadl and ue task to be achieved by 06/03/25. OT Balance Completed Yes Interventions Intervention Associated Problem/Goal Status Variance Visit Notes Medication Education Description: Evaluate/instruct patient/caregiver on obtaining, storing, identifying and administering ordered medications as well as keeping accurate medication list in the home and adhereing to medication schedule Problem:Medication Education Goal:Patient/caregive r will demonstrate ability to obtain, store, identify and administer ordered medications, keep accurate medication list in home, and adhere to medication schedule Completed Patient and Caregiver instructed on importance of keeping accurate medication list in home and adhering to medication schedule. Risk of Sepsis Description: Patient is at risk for sepsis. Monitor closely for s/s of sepsis. Problem:Sepsis Goal:Patient/caregive r will be able to identify and report [...] for Falls Goal:Manage Risk for falls Completed OT: Patient and Caregiver instructed on Eliminating Environmental Hazards: Keep pathways clear, Keep rooms and walkways well lit and Wear supportive shoes or non-skid socks Managing Pain Instruct on pain and instruct on strategies to control pain Problem:Pain Goal:Manage Pain Completed patient and caregiver instructed on techniques to control pain including Non-Pharmacological measures; rest and positioning/elevation . Instruct on ongoing discharge plan Problem:Discharge Goal:Manage discharge planning Completed Ongoing Discharge plan: Discharge plan discussed with patient and caregiver including frequency and duration for home OT and plan for transition to: caregiver assistance. Instruct and educate on knowledge deficits Problem:OT Learning Assessment Goal:Demonstrate understanding of education Completed Education methods include: verbal cues, tactile cues and visual cues. Patient/Caregiver has received education to improve knowledge and compliance with fall prevention strategies, pain management, balance training, home safety, infection control precautions, functional adl/iadl activity, functional transfers and discharge planning. ADL/IADLs Training Problem:OT ADLs/IADLs Goal:Improved ADLs/IADLs performance Completed Instruct patient on compensatory strategies, energy conservation and safety and falls prevention and no adaptive equipment use to facilite improved performance of lower body dressing, bathing and meal prep with independence. Pt states his friend Dalila has been doing his laundry and will continue to do so for now. He demo ability to retrieve frozen meals from freezer and transport to [employer]. Pt declined to participate in tub/shower stating he did not use prior. Pt demo ability to use wipes to perform bathing with Indep. He demo ability to retrieve items from various height surfaces and is ambulating throughout apt without a device. Therapeutic Exercises Problem:OT Upper Body Strength and/or ROM Goal:Improved Strength and/or ROM Completed Instructed patient/caregiver on therapeutic exercise including: upper body exercises: shoulder flexion, shoulder horizontal abduction/adduction, triceps extension, bicep curls, forearm pronation/supination and wrist flexion/extension. Patient reports Indep with performance. Instructed patient/caregiver for HEP to be performed 1-2 sets(s) of 15-20 reps, daily. HEP program reviewed. Transfer Training Problem:OT Functional Transfers Goal:Improved Functional Transfers Completed Pt demo Indep with toilet transfer with BSC over top of commode. He refused to perform tub/shower transfer at this time. States prefers to sponge bathe. Balance Training Problem:OT Balance Goal:Improved Balance Completed Pt demo ability to perform functional tasks X 5 minutes with no SOB, LOB. He is no longer ambulating in apt with device. [facility] Visit Details Visit Type -PT DISC DC W VIS IT Discipline -Physical Therapy Problems Problem Description Start Date Status Goals Interve ntions Sepsis Disciplines: Skilled Services 05/05/2025 Active 1 goal linked to scheduled/document ed intervention 1 goal intervention scheduled/document ed in this visit PT Referral Disciplines: Skilled Services 05/05/2025 Resolved on 05/30/2025 1 goal linked to scheduled/document ed intervention Physician Specific Parameters Disciplines: Skilled Services 05/05/2025 [...] goal intervention scheduled/document ed in this visit PT Impaired muscle performance and/or ROM Disciplines: PT 05/17/2025 Resolved on 05/30/2025 1 goal linked to scheduled/document ed intervention 1 goal intervention scheduled/document ed in this visit PT Impaired mobility Disciplines: PT 05/17/2025 Resolved on 05/30/2025 2 goals linked to scheduled/document ed interventions 2 goal interventions scheduled/document ed in this visit PT Impaired gait Disciplines: PT 05/17/2025 Resolved on 05/30/2025 2 goals linked to scheduled/document ed interventions 2 goal interventions scheduled/document ed in this visit PT Impaired balance Disciplines: PT 05/17/2025 Resolved on 05/30/2025 1 goal linked to scheduled/document ed intervention 1 goal intervention scheduled/document ed in this visit PT Learning Assessment Disciplines: PT 05/17/2025 Resolved on 05/30/2025 1 goal linked to scheduled/document ed intervention 1 goal intervention scheduled/document ed in this visit Goals Goal Associated Problem Outcome Goal Met? Visit Notes Patient/caregiver will be able to identify and report symptoms of sepsis Description: Patient/caregiver will be able to identify signs/symptoms of sepsis infection and will verbalize actions to take if suspected by 06/09/25. Sepsis No Patient will be referred to additional discipline as needed PT Referral Completed Yes Patient to maintain parameters within physician-specified ranges [...] to be achieved by 06/09/25. Pain No Improved Muscle Performance and/or ROM Description: Short term goal: Patient will demonstrate improved muscle performance to meet functional goals, to be achieved by 06/03/25. PT Impaired muscle performance and/or ROM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 Patient Records regulations: The Federal rules restrict any use of the information to criminally investigate or prosecute any alcohol or drug abuse patient.[facility] HospitalIn the event this information is protected by the Federal Confidentiality of Alcohol and Drug Abuse Patient Records regulations: The Federal rules restrict any use of the information to criminally investigate or prosecute any alcohol or drug abuse patient.[facility] HospitalIn the event this information is protected by the Federal Confidentiality of Alcohol and Drug Abuse Patient Records regulations: The Federal rules restrict any use of the information to criminally investigate or prosecute any alcohol or drug abuse patient.[facility] HospitalIn the event this information is protected by the Federal Confidentiality of Alcohol and Drug Abuse Patient Records regulations: The Federal rules restrict any use of the information to criminally investigate or prosecute any alcohol or drug abuse patient.[facility] HospitalIn the event this information is protected by the Federal Confidentiality of Alcohol and Drug Abuse Patient Records regulations: The Federal rules restrict any use of the information to criminally investigate or prosecute any alcohol or drug abuse patient.[facility] HospitalIn the event this information is protected by the Federal Confidentiality of Alcohol and Drug Abuse Patient Records regulations: The Federal rules restrict any use of the information to criminally investigate or prosecute any alcohol or drug abuse patient.[facility] HospitalIn the event this information is protected by the Federal Confidentiality of Alcohol and Drug Abuse Patient Records regulations: The Federal rules restrict any use of the information to criminally investigate or prosecute any alcohol or drug abuse patient.[facility] HospitalIn the event this information is protected by the Federal Confidentiality of Alcohol and Drug Abuse Patient Records regulations: The Federal rules restrict any use of the information to criminally investigate or prosecute any alcohol or drug abuse patient.[facility] HospitalIn the event this information is protected by the Federal Confidentiality of Alcohol and Drug Abuse Patient Records regulations: The Federal rules restrict any use of the information to criminally investigate or prosecute any alcohol or drug abuse patient.[facility] HospitalIn the event this information is protected by the Federal Confidentiality of Alcohol and Drug Abuse Patient Records regulations: The Federal rules restrict any use of the information to criminally investigate or prosecute any alcohol or drug abuse patient.[facility] HospitalIn the event this information is protected by the Federal Confidentiality of Alcohol and Drug Abuse Patient Records regulations: The Federal rules restrict any use of the information to criminally investigate or prosecute any alcohol or drug abuse patient.[facility] HospitalIn the event this information is protected by the Federal Confidentiality of Alcohol and Drug Abuse Patient Records regulations: The Federal rules restrict any use of the information to criminally investigate or prosecute any alcohol or drug abuse patient.[facility] HospitalIn the event this information is protected by the Federal Confidentiality of Alcohol and Drug Abuse Patient Records regulations: The Federal rules restrict any use of the information to criminally investigate or prosecute any alcohol or drug abuse patient.[facility] HospitalIn the event this information is protected by the Federal Confidentiality of Alcohol and Drug Abuse Patient Records regulations: The Federal rules restrict any use of the information to criminally investigate or prosecute any alcohol or drug abuse patient.[facility] HospitalIn the event this information is protected by the Federal Confidentiality of Alcohol and Drug Abuse Patient Records regulations: The Federal rules restrict any use of the information to criminally investigate or prosecute any alcohol or drug abuse patient.[facility] HospitalIn the event this information is protected by the Federal Confidentiality of Alcohol and Drug Abuse Patient Records regulations: The Federal rules restrict any use of the information to criminally investigate or prosecute any alcohol or drug abuse patient.[facility] HospitalIn the event this information is protected by the Federal Confidentiality of Alcohol and Drug Abuse Patient Records regulations: The Federal rules restrict any use of the information to criminally investigate or prosecute any alcohol or drug abuse patient.[facility] HospitalIn the event this information is protected by the Federal Confidentiality of Alcohol and Drug Abuse Patient Records regulations: The Federal rules restrict any use of the information to criminally investigate or prosecute any alcohol or drug abuse patient.[facility] HospitalIn the event this information is protected by the Federal Confidentiality of Alcohol and Drug Abuse Patient Records regulations: The Federal rules restrict any use of the information to criminally investigate or prosecute any alcohol or drug abuse patient.[facility] HospitalIn the event this information is protected by the Federal Confidentiality of Alcohol and Drug Abuse Patient Records regulations: The Federal rules restrict any use of the information to criminally investigate or prosecute any alcohol or drug abuse patient.[facility] HospitalIn the event this information is protected by the Federal Confidentiality of Alcohol and Drug Abuse Patient Records regulations: The Federal rules restrict any use of the information to criminally investigate or prosecute any alcohol or drug abuse patient.[facility] HospitalIn the event this information is protected by the Federal Confidentiality of Alcohol and Drug Abuse Patient Records regulations: The Federal rules restrict any use of the information to criminally investigate or prosecute any alcohol or drug abuse patient.[facility] HospitalIn the event this information is protected by the Federal Confidentiality of Alcohol and Drug Abuse Patient Records regulations: The Federal rules restrict any use of the information to criminally investigate or prosecute any alcohol or drug abuse patient.[facility] HospitalIn the event this information is protected by the Federal Confidentiality of Alcohol and Drug Abuse Patient Records regulations: The Federal rules restrict any use of the information to criminally investigate or prosecute any alcohol or drug abuse patient.[facility] HospitalIn the event this information is protected by the Federal Confidentiality of Alcohol and Drug Abuse Patient Records regulations: The Federal rules restrict any use of the information to criminally investigate or prosecute any alcohol or drug abuse patient.[facility] HospitalIn the event this information is protected by the Federal Confidentiality of Alcohol and Drug Abuse Patient Records regulations: The Federal rules restrict any use of the information to criminally investigate or prosecute any alcohol or drug abuse patient.[facility] HospitalIn the event this information is protected by the Federal Confidentiality of Alcohol and Drug Abuse Patient Records regulations: The Federal rules restrict any use of the information to criminally investigate or prosecute any alcohol or drug abuse patient.[facility] HospitalIn the event this information is protected by the Federal Confidentiality of Alcohol and Drug Abuse Patient Records regulations: The Federal rules restrict any use of the information to criminally investigate or prosecute any alcohol or drug abuse patient.[facility] HospitalIn the event this information is protected by the Federal Confidentiality of Alcohol and Drug Abuse Patient Records regulations: The Federal rules restrict any use of the information to criminally investigate or prosecute any alcohol or drug abuse patient.[facility] HospitalIn the event this information is protected by the Federal Confidentiality of Alcohol and Drug Abuse Patient Records regulations: The Federal rules restrict any use of the information to criminally investigate or prosecute any alcohol or drug abuse patient.[facility] HospitalIn the event this information is protected by the Federal Confidentiality of Alcohol and Drug Abuse Patient Records regulations: The Federal rules restrict any use of the information to criminally investigate or prosecute any alcohol or drug abuse patient.[facility] HospitalIn the event this information is protected by the Federal Confidentiality of Alcohol and Drug Abuse Patient Records regulations: The Federal rules restrict any use of the information to criminally investigate or prosecute any alcohol or drug abuse patient.[facility] HospitalIn the event this information is protected by the Federal Confidentiality of Alcohol and Drug Abuse Patient Records regulations: The Federal rules restrict any use of the information to criminally investigate or prosecute any alcohol or drug abuse patient.[facility] HospitalIn the event this information is protected by the Federal Confidentiality of Alcohol and Drug Abuse Patient Records regulations: The Federal rules restrict any use of the information to criminally investigate or prosecute any alcohol or drug abuse patient.[facility] HospitalIn the event this information is protected by the Federal Confidentiality of Alcohol and Drug Abuse Patient Records regulations: The Federal rules restrict any use of the information to criminally investigate or prosecute any alcohol or drug abuse patient.[facility] HospitalIn the event this information is protected by the Federal Confidentiality of Alcohol and Drug Abuse Patient Records regulations: The Federal rules restrict any use of the information to criminally investigate or prosecute any alcohol or drug abuse patient.[facility] HospitalIn the event this information is protected by the Federal Confidentiality of Alcohol and Drug Abuse Patient Records regulations: The Federal rules restrict any use of the information to criminally investigate or prosecute any alcohol or drug abuse patient.[facility] Reason for Visit (unrecogniz ed section and [...] Expiration Date Visits Re quested Visits Authorized [id number] 1 Reason Comments Home Care Confirmation Call Reason Comments Home Care MD to follow Reason Comments Home Care SOC delay / APPROVAL NEEDED Reason Comments Home Care SOC scheduling - SOC 05/07 Reason Comments Home Care DELAY IN SERVICE Reason Comments Orders Care Teams (unrecognized sec tion and content) Short Order Fry Cook Relationship Specialty Start Date End Date Nayana Solomon A PCP - General Family Medicine 03/19/12 Short Order Fry Cook Relationship Specialty Start Date End Date Tana Farmer MD [address] [place] [address] PCP - General Internal Medicine 06/11/23 Team Status: Active Member Role Status Dates Dr. Tana Farmer MD Family Provider Active Dr. Tana Farmer MD Primary Care Provider Active Team Status: Inactive Member Role Status Dates Dr. Tana Farmer MD Primary Care P rorachel, Attending Provider, Referring Provider Active Team Status: [...] MD Other Provider Active Dr. Abel Parr , Attending Provider Active Team Status: Active Member Role Status Dates Dr. Tana Farmer MD Primary Care Provider Active Dr. Caridad Godman , DO Emergency Provider Active Dr. Brian Mosteller , DO Admit Provider, Other Pro vider [...] MD Other Provider Active Dr. Phillip Man DO Other Provider Active Dr. Abel Parr [...] Other Provider Active Dr. Phillip Man , Other Provider Active Team Status: Inactive Member Role Status Dates Dr. Tana Farmer MD Primary Care Provider Active Dr. Caridad Go , DO Emergency Provider Active Dr. Brian Junior , DO Admit Provider, Other Pro vider Active Dr. Anselmo Edwards MD Attending Provider Active Dr. Kar Dave MD Other Provider Active Dr. Phillip Man , Other Provider Active Team Status: Inactive Member [...] MD Other Provider Active Dr. Phillip Man DO Other Provider Active Dr. Abel Parr DO Attending Provider Active Team Status: Inactive Member Role Status Dates Dr. Tana Farmer MD Primary Care Provider Active Dr. Roderick Alarcon DO Emergency Provider Active Team Status: Inactive Member Role Status Dates Dr. Tana Farmer MD Primary Care Provider Active Dr. Roderick Alarcon DO Attending Provider, Emergency P cory Active Team Status: Active Member Role Status Dates Dr. Tana Farmer MD Primary Care Provider Active Dr. Elpidio Oseguera MD Attending Provider, Referring Pr ovider Active Team Status: Inactive Member Role Status Dates Dr. Tana Farmer MD Primary Care Provider Active Dr. Elpidio Oseguera MD Attending Provider Active Dr. Kostas Ahmadi MD Referring Provider Active Short Order Fry Cook Relationship Specialty Start Date End Date Tana Farmer MD [address] [place] [address] PCP - General Internal Medicine 06/11/23 Short Order Fry Cook Relationship Specialty Start Date End Date Tana Farmer MD [address] [place] [address] PCP - General Internal Medicine 06/11/23 Short Order Fry Cook Relationship Specialty Start Date End Date Tana Farmer MD [address] [place] [address] PCP - General Internal Medicine 03/11/25 Short Order Fry Cook Relationship Specialty Start Date End Date Tana Farmer MD [address] [place] [address] PCP - General Internal Medicine 06/11/23 Team [...] April 07, 2025 End: April 07, 2025 Short Order Fry Cook Relationship Specialty Start Date End Date Tana Farmer MD [address] [place] [address] PCP - General Internal Medicine 06/11/23 Aliza Bradye, [employer].BROADCASTING EQUIPMENT MECHANIC [address] [place] [address] Referring General Surgery 04/27/25 Short Order Fry Cook Relationship Specialty Start Date End Date Tana Farmer MD [address] [place], [place] [address] PCP - General Internal Medicine 06/11/23 Anca Brady, [employer].BROADCASTING EQUIPMENT MECHANIC [address] [place] [address] Referring General Surgery 04/27/25 Tana Farmer MD [address] [place] [address] Home Care Provider Internal Medicine 04/28/25 Short Order Fry Cook Relationship Specialty Start Date End Date Tana Farmer MD [address] [place] [address] PCP - General Internal Medicine 06/11/23 Anca Brady, [employer].BROADCASTING EQUIPMENT MECHANIC [address] [place] [address] Referring General Surgery 04/27/25 Tana Farmer MD [address] [place] [address] Home Care Provider Internal Medicine 04/28/25 Jem Zaman, RN [address] [place] [address] Paint Crew Supervisor Post Acute Care 05/03/25 Short Order Fry Cook Relationship Specialty Start Date End Date Tana Farmer MD [address] [place] [address] PCP - General Internal Medicine 06/11/23 Tana Farmer MD [address] [place] [address] Home Care Provider Internal Medicine 04/28/25 Jem Zaman RN [address] [place], [place] [id number] Paint Crew Supervisor Post Acute Care 05/03/25 Nimco Ivey MD [address] [place] [address] [place], [place] [id number] Referring General Surgery 05/04/25 Short Order Fry Cook Relationship Specialty Start Date End Date Tana Farmer MD [address] [place] [address] PCP - General Internal Medicine 06/11/23 Tana Farmer MD [address] [place] [address] Home Care Provider Internal Medicine 04/28/25 Jem Zaman RN [address] [place], [place] [id number] Paint Crew Supervisor Post Acute Care 05/03/25 Nimco Ivey MD [address] [place] [address] [place], [place] [id number] Referring General Surgery 05/04/25 Short Order Fry Cook Relationship Specialty Start Date End Date Tana Farmer MD [address] [place] [address] PCP - General Internal Medicine 06/11/23 Tana Farmer MD [address] [place], [place] [id number]- Home Care Provider Internal Medicine 04/28/25 Jem Zaman, DEONNA [address] [facility], [place] [id number] Paint Crew Supervisor Post Acute Care 05/03/25 Nimco Ivey MD [address] [place] [address] [place] [address] Referring General Surgery 05/04/25 Team Status: Inactive Member Role Status Dates Dr. Tana Farmer MD Primary Care Provider Active Start: April 07, 2025 End: April 07, 2025 Dr. Dung Christine DO Attending Provider Active Start: April 07, 2025 End: April 07, 2025 Dr. Dung Christine DO Emergency Provider Active Start: April 07, 2025 End: April 07, 2025 Team Status: Inactive Member Role Status Dates Dr. Tana Farmer MD Primary Care Provider Active Start: May 07, 2025 End: May 07, 2025 Dr. Roderick Alarcon DO Emergency Provider Active Start: May 07, 2025 End: May 07, 2025 Short Order Fry Cook Relationship Specialty Start Date End Date Tana Farmer MD [address] [place], [place] [address] PCP - General Internal Medicine 06/11/23 Tana Farmer MD [address] [place], [place] [id number] Home Care Provider Internal Medicine 04/28/25 Jem Zaman RN [address] [facility], [place] [id number] Paint Crew Supervisor Post Acute Care 05/03/25 Nimco Ivey MD [address] [address] [place], [place] [id number] Referring General Surgery 05/04/25 Short Order Fry Cook Relationship Specialty Start Date End Date Tana Farmer MD [address] [place] [address] PCP - General Internal Medicine 06/11/23 Tana Farmer MD [address] [place] [address] Home Care Provider Internal Medicine 04/28/25 Jem Zaman, RN [address] [place] [address] Paint Crew Supervisor Post Acute Care 05/03/25 Nimco Ivey MD [address] [place] [address] Referring General Surgery 05/04/25 Short Order Fry Cook Relationship Specialty Start Date End Date Tana Farmer MD [address] [place] [address] PCP - General Internal Medicine 06/11/23 Tana Farmer MD [address] [place] [address] Home Care Provider Internal Medicine 04/28/25 Jem Zaman RN [address] [place] [address] Paint Crew Supervisor Post Acute Care 05/03/25 Nimco Ivey MD [address] [place], [place] [phone] Referring General Surgery 05/04/25 Team Status: Inactive Member Role Status Dates Dr. Tana Farmer MD Primary Care Provider Active Start: May 11, 2025 End: May 11, 2025 Dr. Tana Farmer MD Attending Provider Active Start: May 11, 2025 End: May 11, 2025 Dr. Tana Farmer MD Referring Provider Active Start: May 11, 2025 End: May 11, 2025 Team Status: Active Member Role Status Dates Dr. Tana Farmer MD Primary Care Provider Active Start: May 11, 2025 Neeru Heredia Attending Provider Active Sta rt: May 11, 2025 Team Status: Active Member Role/Relationship Status Dates Dr. Tana Farmer MD Primary Care Provider Active Team Status: Inactive Member Role/Relationship Status Dates Dr. Tana Farmer MD Primary Care Provider Active Start: March 24, 2025 End: March 24, 2025 Dr. Tana Faremr MD Attending Provider Active Start: March 24, 2025 End: March 24, 2025 Dr. Tana Farmer MD Referring Provider Active Start: March 24, 2025 End: March 24, 2025 Team Status: Inactive Member Role/Relationship Status Dates Dr. Tana Farmer MD Primary Care Provider Active Start: March 30, 2025 End: March 30, 2025 Dr. Tana Farmer MD Attending Provider Active Start: March 30, 2025 End: March 30, 2025 Dr. Tana Farmer MD Referring Provider Active Start: March 30, 2025 End: March 30, 2025 Team Status: Inactive Member Role/Relationship Status Dates Dr. Tana Farmer MD Primary Care Provider Active Start: April 07, 2025 End: April 07, 2025 Dr. Dung Christine DO Attending Provider Active Start: April 07, 2025 End: April 07, 2025 Dr. Dung Christine DO Emergency Provider Active Start: April 07, 2025 End: April 07, 2025 Team Status: Inactive Member Role/Relationship Status Dates Dr. Tana Farmer MD Primary Care Provider Active Start: May 07, 2025 End: May 07, 2025 Dr. Roderick Alarcon DO Attending Provider Active Start: May 07, 2025 End: May 07, 2025 Dr. Roderick Alarcon DO Emergency Provider Active Start: May 07, 2025 End: May 07, 2025 Team Status: Inactive Member Role/Relationship Status Dates Dr. Tana Farmer MD Primary Care Provider Active Start: May 11, 2025 End: May 11, 2025 Dr. Tana Farmer MD Attending Provider Active Start: May 11, 2025 End: May 11, 2025 Dr. Tana Farmer MD Referring Provider Active Start: May 11, 2025 End: May 11, 2025 Team Status: Active Member Role/Relationship Status Dates Dr. Tana Farmer MD Primary Care Provider Active Start: May 11, 2025 Neeru Heredia Attending Provider Active Sta rt: May 11, 2025 Team Status: Active Member Role/Relationship Status Dates Dr. Tana Farmer MD Primary Care Provider Active Start: June 09, 2025 Dr. Tana Farmer MD Attending Provider Active Start: June 09, 2025 Dr. Tana Farmer MD Referring Provider Active Start: June 09, 2025 Team Status: Inactive Member Role/Relationship Status Dates Dr. Tana Farmer MD Primary Care Provider Active Start: June 14, 2025 End: June 14, 2025 Dr. Tana Farmer MD Attending Provider Active Start: June 14, 2025 End: June 14, 2025 Dr. Tana Farmer MD Referring Provider Active Start: June 14, 2025 End: June 14, 2025 Team Status: Active Member Role/Relationship Status Dates Dr. Tana Farmer MD Primary Care Provider Active Start: June 14, 2025 Dr. Tana Farmer MD Attending Provider Active Start: June 14, 2025 Dr. Tana Farmer MD Referring Provider Active Start: June 14, 2025 Team Status: Inactive Member Role/Relationship Status Dates Dr. Tana Farmer MD Primary Care Provider Active Start: June 14, 2025 End: June 14, 2025 Dr. Tana Farmer MD Attending Provider Active Start: June 14, 2025 End: June 14, 2025 Dr. Tana Farmer MD Referring Provider Active Start: June 14, 2025 End: June 14, 2025 Team Status: Inactive Member Role/Relationship Status Dates Dr. Tana Farmer MD Primary Care Provider Active Start: June 29, 2025 End: June 29, 2025 Dr. Jeronimo Parra MD Attending Provider Active Start: June 29, 2025 End: June 29, 2025 Dr. Jeronimo Parra MD Referring Provider Active Start: June 29, 2025 End: June 29, 2025 Scheduled Active and Recently Administ ered Medications (unrecognized section and content) Medication Order 03/13/2025 03/14/2025 03/15/2025 albumin human 25 % solution 25 g (COMPLETED) 25 g, Intravenous, Administer over 60 Minutes, Once, On Thu03/14/25 at 1230, For 1 dose, Infuse with vented tubing if product is in a glass vial. In [facility] drug library, no longer in fluid library. 1310 (New Bag - Provider: Afia Lucas RN) albumin human 25 % solution 25 g (COMPLETED) 25 g, Intravenous, Administer over 60 Minutes, Once, On Thu03/14/25 at 1330, For 1 dose, Infuse with vented tubing if product is in a glass vial. In [facility] drug library, no longer in fluid library. 1459 (New Bag - Provider: Afia Lucas, DEONNA) albumin human 25 % solution 25 g (COMPLETED) 25 g, Intravenous, Administer over 60 Minutes, Every 6 hours, First dose (after last modification) on Thu03/14/25 at 1800, For 3 doses, Infuse with vented tubing if product is in a glass vial. In [facility] drug library, no longer in fluid library. 1917 (New Bag - Provider: Afia Lucas RN)2017 (Stopped - Provider: Nj Drew RN) 001 (New Bag - Provider: Nj Drew RN)0118 (Stopped - Provider: Nj Drew, RN)0542 (New Bag - Provider: Nj Drew RN)0643 (Stopped - Provider: Nj Drew RN) ceFAZolin (ANCEF) IVPB 2 g (premix) 2,000 [...] Afia Lucas RN)1059 (Stopped - Provider: Nj Drew RN)1727 (New Bag - Provider: Afia Lucas [...] physician if patient refuses., Indication: VTE Prophylaxis 1807 (Given - Provider: Rosamaria Mcdaniel RN) 0822 [...] down tube, flush tube with 10ml saline 204 (Given - Provider: Radha Gongora RN) 08 (Given - Provider: Afia Lucas RN)2103 (Given - Provider: Nj Drew RN) 1048 (Given - Provider: Afia Lucas RN) lactulose (CHRONULAC) 10 gram/15 mL solution 10 g 10 g, Oral, 3 times daily, First dose on Thu03/13/25 at 1700, Hold for > 3 BM in 24 hours 1807 (Given - Provider: Rosamaria Mcdaniel RN)2044 (Given [...] 1807 (Given - Provider: Rosamaria Mcdaniel RN) 0822 (Given - Provider: Afia Lucas RN) 1048 (Given - Provider: Afia Lucas RN) potassium chloride SA (K-DUR,KLOR-CON) CR tablet 40 mEq (COMPLETED) 40 mEq, Oral, Once, On Thu03/13/25 at 1810, For 1 dose, DO NOT CRUSH OR CHEW (if instructed may dissolve tablet(s) in liquid) DO NOT ADMINISTER DISSOLVED TABLET VIA SURGICALLY PLACED TUBE OR TUBE less than 14 [place]. To administer dissolved tablet(s) mix with 4 ounces of water over 2-3 minutes, stir for 30 seconds prior to administration; rinse dosing cup and administer residual medication to ensure full dose given 1821 (Given - Provider: Rosamaria Mcdaniel, DEONNA) rifAXIMin [...] clinically necessary. 1048 (Given - Provider: Afia Lucas, RN) thiamine tablet 200 mg 200 mg, [...] BE BASED ON THE PRIMARY CLINICAL RECORDS. [employer] [facility]. provides no warranty or guarantee of the accuracy or completeness of information in this document.
[2025-07-13] VITALS (21 sets, daily range): BP systolic 71–128; BP diastolic 42–88; PULSE 124–152; RESP 14–32; TEMP 36.6–36.7; O2SAT 90–95; BMI 27.2
[2025-07-13] MEDS: 0.9% Normal Saline (500mL Bag) 500 ML 999 ML IV (00:33)
--- NOTE | 2025-07-13 01:35 | PHA.PHARE_ITS ---
Consult Antibiotic Management Pharmacy has been consulted to manage selected antibiotic: Vancomycin Type of Intervention Type of Consult: New start Labs Labs: Sodium 135 mmol/L (133-145) 07/12/25 11:45 Potassium 3.1 mmol/L (3.3-5.1) L 07/12/25 11:45 Chloride 95 mmol/L (98-108) L 07/12/25 11:45 Carbon Dioxide 19.4 mmol/L (21.0-32.0) L 07/12/25 11:45 Anion Gap 20 (5-15) H 07/12/25 11:45 BUN 9 mg/dL (4-19) 07/12/25 11:45 Creatinine 0.95 mg/dL (0.70-1.20) 07/12/25 11:45 Est GFR (MDRD) Non-Af 96 (>60) 07/12/25 11:45 BUN/Creatinine Ratio 9.9 RATIO (10-20) L 07/12/25 11:45 Glucose 199 mg/dL (70-99) H 07/12/25 11:45 Microbiology Microbiology: Microbiology 07/12/25 11:45 Blood Culture (Wb) - Anticubital Left Blood Culture - Preliminary 07/12/25 14:22 Mucosa - Nose SARS-CoV-2, Influenza & RSV (PCR) - Final Dosing Weight Weight used for dosin.6 kg Estimated Creatinine Clearance Estimated Creatinine Clearance: 95.68 Goal Trough Goal Trough: 15-20 mcg/mL Pharmacy Plan for Drug Dosing Pharmacy Plan for Drug Dosing: Pharmacy Service will continue to monitor and adjust dosing as required. 2GM DOSE GIVEN IN ER 07/12 @ 1502. START 1750 MG Q12H AND DRAW TROUGH PRIOR TO 4 TH DOSE Follow-Up Labs Follow-Up Labs: Trough: Vancomycin Date/Time Labs Ordered Labs to be done on [date and time ordered]: 07/14 @ 0231
[2025-07-13] MEDS: 0.9% Normal Saline (1000mL) 1,000 ML 100 ML IV (01:40)
[2025-07-13] MEDS: Magnesium Sulfate 2 GM in Dextrose 5%-Water (100mL Bag) 100 ML IV (01:41)
[2025-07-13] MEDS: 0.9% Normal Saline (250mL Bag) 250 ML 15 ML IV (01:41)
[2025-07-13] MEDS: Piperacil/Tazobactam 3.375 GM in 0.9% Normal Saline (50mL MB+) 50 ML IV (01:44)
[2025-07-13] MEDS: Potassium Chloride Oral Soln 20 MEQ/15 ML UDC 40 MEQ PO (01:45)
[2025-07-13] MEDS: Albuterol 2.5 MG/3 ML VIAL.NEB. INHALATION (02:01)
[2025-07-13] MEDS: Vancomycin HCl 1,750 MG in 0.9% Normal Saline (500mL Bag) 500 ML 250 MG IV (03:52)
[2025-07-13] MEDS: guaiFENesin 10 ML UDC (200MG/10ML) PO (04:08)
[2025-07-13] MEDS: MELATONIN 3 MG TABLET PO (04:08)
--- NOTE | 2025-07-13 04:16 | NURSING ---
Spoke with [facility] transfer center line, updated on status, meds, vitals. [facility] is still full without a bed available.
[2025-07-13 05:53] LABS: Hematocrit 30.1 % (40-54); Hemoglobin 9.5 g/dL (13.0-16.5); Immature Granulocytes Count 0.080 X10^3/uL (0.0-0.0); Mean Corp Hgb Conc 31.6 g/dL (32-36); Mean Corpuscular Volume 120.9 fL (80-94); Mean Platelet Vol. 9.9 fl (6.2-12.0); NRBC Flagged by Analyzer 0 % (0-5); POSITIVE COUNT YES; POSITIVE DIFFERENTIAL YES; POSITIVE MORPHOLOGY YES; Platelet Count 57 K/mm3 (150-450); RBC Distribution Width CV 14.4 % (11.6-14.6); RBC Distribution Width SD 64.5 fl (35.1-43.9); Red Blood Count 2.49 M/mm3 (4.6-6.2); White Blood Count 6.5 K/mm3 (4.4-11.0)
[2025-07-13 06:13] LABS: Magnesium 1.9 mg/dL (1.5-2.2)
[2025-07-13 06:34] LABS: AST(SGOT) 73 U/L (<=37); Alanine Aminotransfer ALT/SGPT 24 U/L (<=46); Albumin, Serum 2.5 g/dL (3.5-5.0); Alkaline Phosphatase 93 U/L (40-129); Anion Gap 23 (5-15); BUN 14 mg/dL (4-19); BUN/Creat Ratio 11.7 RATIO (10-20); Bilirubin, Direct 10.60 mg/dL (0.00-0.30); Calcium,Total 8.2 mg/dL (7.6-11.0); Carbon Dioxide 14.3 mmol/L (21.0-32.0); Chloride 100 mmol/L (98-108); Estimated Creatinine Clearance 76.87 ml/min (50-250); Globulin 4.0 g/dL (2.2-4.2); Glucose 48 mg/dL (70-99); Potassium 3.4 mmol/L (3.3-5.1)
--- NOTE | 2025-07-13 06:51 | EX.PCM.CONCC ---
Assessment & Plan Assessment/Plan (1) Sepsis: PLAN: Plan RECOMMENDATIONS: 1. Continue empiric antimicrobials, pending infectious workup. 2. Continue lactulose and rifaximin. 3. Obtain ABG and check ammonia level. 4. Obtain gastroenterology consultation. 5. Continue scheduled midodrine. 6. The patient is awaiting transfer currently to [facility]. IMPRESSIONS: 1. Sepsis The patient presented to the hospital with sepsis due to possible pneumonia versus SBP versus UTI with acute sepsis related organ dysfunction as evidenced by hypotension, lactic acidemia and hyperbilirubinemia. While it is certainly possible that the pleural effusion is related to a hepatic hydrothorax in the setting of decompensated cirrhosis, I would recommend proceeding with ultrasound-guided thoracentesis for diagnostic and therapeutic reasons. In the interim, we will stop continuous IV fluids, given the patient's propensity to third space. Continue scheduled midodrine. If further hemodynamic compromise occurs, we will plan to initiate vasopressor support. In the interim, continue empiric broad-spectrum antimicrobials, pending further infectious workup. 2. Acute decompensated liver cirrhosis Continue current medical management with lactulose and rifaximin. Will check ammonia level along with arterial blood gas. Gastroenterology consultation is pending. Plan to proceed with paracentesis for SBP evaluation. Poor long-term prognosis, given the patient's ongoing alcohol dependency. Transfer to tertiary care facility is currently pending. 3. Acute hypoxemic respiratory failure CT imaging demonstrated a large right-sided pleural effusion with associated compressive atelectasis and concern for possible infiltrate. While this effusion could represent a parapneumonic etiology, it is certainly possible as well as that the patient has a large hepatic hydrothorax. Recommend proceeding with ultrasound-guided thoracentesis for diagnostic and therapeutic reasons. In the interim, continue to wean supplemental oxygen to maintain saturations at or above 90%. 4. Chronic anemia/thrombocytopenia/hypothyroidism/seizure disorder/chronic alcohol dependency Complicates care, management, recovery and prognosis. Continue supportive measures as noted above. Initiate CIWA protocol along with as needed Ativan. This note was generated with [employer] dictation software. It may contain incorrect words, spelling, and punctuation that were not noted in checking the note before signing. HPI Consult Data Date of Consult: 07/13/25 HPI Narrative Reason for Consultation: Sepsis HPI Narrative: The patient is a 55-year-old male, with a history as outlined below, who presented to the emergency department on July 12 with fevers, shortness of breath and abdominal discomfort. The patient has a longstanding alcohol abuse history with associated alcohol related cirrhosis. 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 His medical history is also significant for hypertension, hyperlipidemia, hypothyroidism and unspecified seizure disorder. The patient indicated that he was typically drinking 12 beers per day until Thursday, July 08, when he abruptly stopped. Nevertheless, he did not apparently develop any withdrawal symptoms. On presentation to the emergency department, the patient was noted to be febrile, tachycardic and tachypneic. Laboratory evaluation revealed a normal white blood cell count with a hemoglobin of 10.2 g/dL and platelet count of 49,000. Coagulation profile was notable for an INR of 3.5. Chemistry profile was notable for a potassium of 3.1 with a bicarbonate of 19, anion gap of 20 and creatinine of 0.95. Lactate was elevated at 10.5. Total bilirubin was increased at 17.1. Urine analysis was positive for nitrites along with 1+ urine bacteria. CT abdomen/pelvis demonstrated a large right-sided pleural effusion with associated compressive atelectasis along with a cirrhotic appearing liver and portal hypertension with sequelae including splenomegaly, varices and ascites. There was diffuse colonic wall thickening along with urinary bladder wall thickening and borderline prostate enlargement. The patient was ultimately ordered supplemental IV fluid hydration and antimicrobials. He was admitted to the medical intensive care unit for further management. The patient's coagulation profile this morning demonstrated worsening in his INR to 4.7. In addition, an arterial blood gas was obtained which demonstrated a pH of 7.15 with a pCO2 of 47 and pO2 of 69. Ammonia level was elevated at 61. Total bilirubin has increased to 19.8. Consultation was placed to gastroenterology. The patient was recently accepted for transfer to [facility] with transportation arriving shortly. [facility] Medical History Low testosterone in male Chronic back pain Screening for prostate cancer Surgical wound breakdown Failure to thrive in adult Rib fractures Debility History of fracture Decompensated hepatic cirrhosis Dark urine Elevated CA 19-9 level Dermatitis Hypothyroidism Decreased urination Erectile dysfunction Change in bowel habits Nausea & vomiting Swallowing problem Abdominal pain Thrombocytopenia Alcoholic hepatitis Obesity (BMI 30.0-34.9) Abnormal thyroid function test Venous insufficiency of both lower extremities Back pain Limb weakness Balance problem Knee pain Diarrhea Chest pain Neuropathy of both feet Fracture, ribs Brain atrophy History of alcohol abuse Arthritis Seizures Glaucoma Hypertension Hyperlipemia Home Medications ?Medication ?Instructions ?Recorded ?Last Taken ?Type compress.stocking,knee,reg,lrg #2 ea 09/18/21 Unknown Rx compress.stocking,knee,reg,lrg #2 ea 07/01/24 Unknown Rx lactulose 10 gram/15 mL oral 10 g PO BID 03/24/25 Unknown History solution (Constulose) Bedside Commode #1 ea 05/08/25 Unknown Rx meclizine 25 mg tablet 25 mg PO BID PRN for dizziness #60 05/11/25 Unknown Rx (Travel-Ease (meclizine)) TABLETS rifaximin 550 mg tablet 550 mg PO BID #180 tabs 05/11/25 Unknown Rx furosemide 40 mg tablet 40 mg PO BIDLX #60 tabs 06/12/25 Unknown Rx gabapentin 600 mg tablet 600 mg PO BID pain #60 tabs 06/12/25 Unknown Rx levetiracetam 1,000 mg tablet 1,000 mg PO BID ? #60 tabs 06/12/25 Unknown Rx levothyroxine 50 mcg tablet 50 mcg PO DAILY thyroid #30 tabs 06/12/25 Unknown Rx midodrine 10 mg tablet 10 mg PO TID #180 tabs 06/12/25 Unknown Rx thiamine HCl (vitamin B1) 100 mg 100 mg PO QDAY #90 caps 06/12/25 Unknown Rx capsule Allergy/AdvReac Type Severity Reaction Status Date / Time No Known Allergies Allergy Verified 07/12/25 11:24 Family History Father Alcoholism Heart disease Myocardial infarction Mother Arthritis Sister Depression Grandfather Myocardial infarction Grandfather CVA (cerebral vascular accident) Surgical History H/O esophagogastroduodenoscopy History of abdominal paracentesis History of surgical procedure on eye proper using laser History of bilateral hip replacements History of tonsillectomy Social History (Updated 07/12/25 @ 22:[address] Jennifer Yeboah MD) household members: spouse Smoking Status: Never smoker Smokeless tobacco user: chewing tobacco Electronic Cigarette Use: not used second hand exposure: Yes alcohol intake: current alcohol intake frequency: 3 or more drinks per day Alcohol type: beer details: 4-6 beers a day substance use type: does not use what type of physical activity do you participate in: walking frequency: daily ROS ROS Narrative 10 systems were reviewed with pertinent positives as noted in the HPI above. Physical Exam Const alert and oriented x3 Constitutional Narrative: Jaundiced in appearance. General Appearance: cooperative and ill appearing HEENT normocephalic and head/scalp atraumatic Eyes PERRL and EOMs intact bilaterally Neck supple General: trachea midline Chest inspection of chest normal Resp Effort and Inspection: tachypneic Auscultation: diminished lung sounds Cardio S1 normal heart sound and S2 normal heart sound Rate: tachycardic GI Inspection: abdominal distention Palpation: tender; Negative for guarding Extremity General Extremity: Negative for clubbing or edema Skin no rashes or lesions noted Neuro CN's II-XII intact bilaterally, moves all extremities and no focal motor deficits Psych Mood & Affect: flat affect Lab / Micro Data 07/13/25 04:55 07/13/25 04:55 Labs: Laboratory Results - last 24 hr 07/12/25 11:45: WBC 4.8, RBC 2.69 L, Hgb 10.2 L, Hct 30.5 L, MCV 113.4 H, MCH 37.9 H, MCHC 33.4, RDW Std Deviation 58.9 H, RDW Coeff of Demond 14.4, Plt Count 49 L*, MPV 9.4, Immature Gran % (Auto) 0.200, Neut % (Auto) 83.1 H, Lymph % (Auto) 7.2 L, [place] % (Auto) 9.3, Eos % (Auto) 0.0, Baso % (Auto) 0.2, Absolute Neuts (auto) 4.0, Absolute Lymphs (auto) 0.35 L, Nucleated RBC % 0, Platelet Estimate MKD DEC, Sodium 135, Potassium 3.1 L, Chloride 95 L, Carbon Dioxide 19.4 L, Anion Gap 20 H, BUN 9, Creatinine 0.95, Estim Creat Clear Calc 94.68, Est GFR (MDRD) Non-Af 96, BUN/Creatinine Ratio 9.9 L, Glucose 199 H, Lactic Acid 10.5 H*, Calcium 8.6, Magnesium 1.0 L, Total Bilirubin 17.10 H*, AST 85 H, ALT 29, Alkaline Phosphatase 162 H, Troponin T High Sens 37 H, Total Protein 7.0, Albumin 2.7 L, Globulin 4.3 H, Albumin/Globulin Ratio 0.6 L, Lipase 30 07/12/25 13:50: Troponin T Hi Sens 2 Hr 35 H 07/12/25 14:20: Urine Color Yellow, Urine Clarity Cloudy, Urine pH 6.0, Ur Specific [place] 1.010, Urine Protein 30 H, Urine Glucose (UA) Normal, Urine Ketones 5 H, Urine Occult Blood 25 H, Urine Nitrite Positive H, Urine Bilirubin 6 H, Urine Urobilinogen 4 H, Ur Leukocyte Esterase 25 H, Urine RBC 0-5 SEEN, Urine WBC 10-25 SEEN, Ur Squamous Epith Cells 0 SEEN, Urine Bacteria 1+, Urine Mucus 0 SEEN 07/12/25 15:05: Ethyl Alcohol < 10.1 07/12/25 16:00: Phosphorus 3.2, Troponin T Hi Sens 4Hr 38 H 07/12/25 16:25: Lactic Acid 5.3 H* 07/12/25 21:00: Lactic Acid 4.7 H* 07/12/25 22:12: PT 35.8 H, INR 3.5, APTT 50.8 H 07/13/25 04:55: Sodium 137, Potassium 3.4, Chloride 100, Carbon Dioxide 14.3 L, Anion Gap 23 H, BUN 14, Creatinine 1.17, Estim Creat Clear Calc 76.87, Est GFR (MDRD) Non-Af 74, BUN/Creatinine Ratio 11.7, Glucose 48 L, Calcium 8.2, Phosphorus 4.3, Magnesium 1.9, Total Bilirubin 19.80 H*, Direct Bilirubin 10.60 H, AST 73 H, ALT 24, Alkaline Phosphatase 93, Total Protein 6.5, Albumin 2.5 L, Globulin 4.0 Micro: Microbiology 07/12/25 11:45 Blood Culture (Wb) - Anticubital Left Blood Culture - Preliminary 07/13/25 02:14 Nasal Secretion MRSA (PCR) - Final 07/13/25 01:15 Mucosa - Nasopharyngeal Respiratory Panel (PCR) - Final 07/12/25 14:20 Urine, Clean Catch Legionella Antigen - Final 07/12/25 14:20 Urine, Clean Catch Streptococcus pneumoniae Antigen (M - Final 07/12/25 14:22 Mucosa - Nose SARS-CoV-2, Influenza & RSV (PCR) - Final Imaging Radiology Impression Chest X-Ray 07/12/25 11:39 IMPRESSION: 1. No pneumothorax is noted. 2. Very large right pleural fluid collection, increased since the prior study of 06/29/2025. Reading Location: [facility]1 Abdomen/Pelvis CT 07/12/25 11:40 IMPRESSION: *Large loculated right pleural effusion with lobulation causing collapse of right lower lobe, right middle lobe, and partial collapse of right upper lobe. *Cirrhosis. *Portal hypertension with sequela including splenomegaly, varices, and ascites. *Diffuse colonic wall thickening favoring portal hypertension, though colitis is possible. *Cholelithiasis. *Gallbladder wall thickening, favoring reactive to portal hypertension. *Compression deformity of L3, new since prior CT, but of undetermined exact age. *Urinary bladder wall thickening, which may indicate cystitis or changes related to outlet obstruction. *Left hydrocele. *Borderline prostate enlargement. Reading Location: [id number] Charges/Coding Visit Charges Inpatient E&M: 39078 Init Hosp L3
--- NOTE | 2025-07-13 07:11 | PCM.PN.HOSP ---
Reason for Visit Chief Complaint: Nausea, emesis, generalized abdominal discomfort, dyspnea, subjective fevers. Objective Data Objective Data Vital Signs: Vital Signs Temp Pulse Resp BP Pulse Ox O2 Del Method O2 Flow Rate 97.8 F 144 H 25 H 98/44 L 93 Nasal Cannula 4 07/13/25 01:02 07/13/25 07:01 07/13/25 07:01 07/13/25 07:00 07/13/25 07:01 07/13/25 07:01 07/13/25 07:01 Oxygen Flow Rate (L/min) 4 Oxygen Delivery Method Nasal Cannula Weight: 88.6 kg Body Mass Index (BMI) 27.2 Intake & Output: Intake and Output for Last 24 Hours 07/11/25 07/12/25 07/13/25 23:59 23:59 23:59 Intake Total 2944 / 2944 1549 / 1549 Balance 2944 / 2944 1549 / 1549 Lab / Micro Data 07/13/25 04:55 07/13/25 04:55 Labs: Laboratory Results - last 24 hr 07/12/25 11:45: WBC 4.8, RBC 2.69 L, Hgb 10.2 L, Hct 30.5 L, MCV 113.4 H, MCH 37.9 H, MCHC 33.4, RDW Std Deviation 58.9 H, RDW Coeff of Demond 14.4, Plt Count 49 L*, MPV 9.4, Immature Gran % (Auto) 0.200, Neut % (Auto) 83.1 H, Lymph % (Auto) 7.2 L, [place] % (Auto) 9.3, Eos % (Auto) 0.0, Baso % (Auto) 0.2, Absolute Neuts (auto) 4.0, Absolute Lymphs (auto) 0.35 L, Nucleated RBC % 0, Platelet Estimate MKD DEC, Sodium 135, Potassium 3.1 L, Chloride 95 L, Carbon Dioxide 19.4 L, Anion Gap 20 H, BUN 9, Creatinine 0.95, Estim Creat Clear Calc 94.68, Est GFR (MDRD) Non-Af 96, BUN/Creatinine Ratio 9.9 L, Glucose 199 H, Lactic Acid 10.5 H*, Calcium 8.6, Magnesium 1.0 L, Total Bilirubin 17.10 H*, AST 85 H, ALT 29, Alkaline Phosphatase 162 H, Troponin T High Sens 37 H, Total Protein 7.0, Albumin 2.7 L, Globulin 4.3 H, Albumin/Globulin Ratio 0.6 L, Lipase 30 07/12/25 13:50: Troponin T Hi Sens 2 Hr 35 H 07/12/25 14:20: Urine Color Yellow, Urine Clarity Cloudy, Urine pH 6.0, Ur Specific [place] 1.010, Urine Protein 30 H, Urine Glucose (UA) Normal, Urine Ketones 5 H, Urine Occult Blood 25 H, Urine Nitrite Positive H, Urine Bilirubin 6 H, Urine Urobilinogen 4 H, Ur Leukocyte Esterase 25 H, Urine RBC 0-5 SEEN, Urine WBC 10-25 SEEN, Ur Squamous Epith Cells 0 SEEN, Urine Bacteria 1+, Urine Mucus 0 SEEN 07/12/25 15:05: Ethyl Alcohol < 10.1 07/12/25 16:00: Phosphorus 3.2, Troponin T Hi Sens 4Hr 38 H 07/12/25 16:25: Lactic Acid 5.3 H* 07/12/25 21:00: Lactic Acid 4.7 H* 07/12/25 22:12: PT 35.8 H, INR 3.5, APTT 50.8 H 07/13/25 04:55: Sodium 137, Potassium 3.4, Chloride 100, Carbon Dioxide 14.3 L, Anion Gap 23 H, BUN 14, Creatinine 1.17, Estim Creat Clear Calc 76.87, Est GFR (MDRD) Non-Af 74, BUN/Creatinine Ratio 11.7, Glucose 48 L, Calcium 8.2, Phosphorus 4.3, Magnesium 1.9, Total Bilirubin 19.80 H*, Direct Bilirubin 10.60 H, AST 73 H, ALT 24, Alkaline Phosphatase 93, Total Protein 6.5, Albumin 2.5 L, Globulin 4.0 Micro: Microbiology 07/12/25 11:45 Blood Culture (Wb) - Anticubital Left Blood Culture - Preliminary 07/13/25 02:14 Nasal Secretion MRSA (PCR) - Final 07/13/25 01:15 Mucosa - Nasopharyngeal Respiratory Panel (PCR) - Final 07/12/25 14:20 Urine, Clean Catch Legionella Antigen - Final 07/12/25 14:20 Urine, Clean Catch Streptococcus pneumoniae Antigen (M - Final 07/12/25 14:22 Mucosa - Nose SARS-CoV-2, Influenza & RSV (PCR) - Final Radiography Diagnostic Testing: Radiology Impression Chest X-Ray 07/12/25 11:39 IMPRESSION: 1. No pneumothorax is noted. 2. Very large right pleural fluid collection, increased since the prior study of 06/29/2025. Reading Location: [facility] Abdomen/Pelvis CT 07/12/25 11:40 IMPRESSION: *Large loculated right pleural effusion with lobulation causing collapse of right lower lobe, right middle lobe, and partial collapse of right upper lobe. *Cirrhosis. *Portal hypertension with sequela including splenomegaly, varices, and ascites. *Diffuse colonic wall thickening favoring portal hypertension, though colitis is possible. *Cholelithiasis. *Gallbladder wall thickening, favoring reactive to portal hypertension. *Compression deformity of L3, new since prior CT, but of undetermined exact age. *Urinary bladder wall thickening, which may indicate cystitis or changes related to outlet obstruction. *Left hydrocele. *Borderline prostate enlargement. Reading Location: [facility] Physical Exam Narrative GENERAL: cooperative HEENT: Atraumatic; normocephalic EYES; icteric, Normal Conjunctiva NECK; supple, normal thyroid, RESPIRATORY: Diminished to auscultation CARDIOVASCULAR: Regular S1 S2, GI: soft, normoactive bowel sounds, slight distention of the abdomen : No Renal angle tenderness; EXTREMITIES: No edema, no clubbing, MUSCULOSKELETAL: no muscle wasting NEURO: Awake; no lateralizing signs. SKIN: No Rash PSYCH; Flat affect Assessment & Plan Assessment/Plan (1) Sepsis: PLAN: Plan Patient is a 55-year-old gentleman with past medical history significant for alcoholic cirrhosis of the liver presented to the emergency department with nausea and vomiting as well as subjective fever. An assessment of sepsis made admitted to the intensive care unit for further management 1. Sepsis ? Multiple etiologies including acute cystitis, suspected SBP given patient cirrhosis of the liver with ascites as well as pneumonia. Treatment initiated per protocol patient admitted to the intensive care unit for further management 2. Large loculated right pleural effusion ? Imaging studies demonstrated Imaging studies obtained on admission demonstrated large loculated right pleural effusionwith lobulation causing collapse of right lower lobe, right middle lobe, and partial collapse of right upper lobe. Patient was started on broad-spectrum antibiotic therapy with Zosyn and vancomycin consult placed to pipe coverer helper/pulmonary medicine 3. Suspected SBP No fever patient with underlying cirrhosis of the liver patient presented with abdominal pain nausea vomiting as well as low-grade fever. Did order ultrasound-guided paracentesis with plans to send ascitic fluid for fluid analysis including Gram stain, cell count and differential, albumin level culture and cytology 4. Acute cystitis ? Patient remains on broad-spectrum antibiotic therapy with Zosyn cultures sent 5. Cirrhosis of the liver with complications including portal hypertension ? Imaging studies obtained on admission did show Cirrhosis. Portal hypertension with sequela including splenomegaly, varices, and ascites. Diffuse colonic wall thickening favoring portal hypertension, though colitis is possible.. Patient is on rifaximin 6. Cholelithiasis ? Gallbladder ultrasound ordered for subsequent eval 7. Gallbladder wall thickening, favoring reactive to portal hypertension. -Gallbladder ultrasound ordered for subsequent eval 8. Chronic microcytic anemia ? Possibly related to patient's chronic alcohol use monitoring with daily H&H with plans to transfuse if hemoglobin falls below 7 or patient is deemed to be symptomatic 9. Thrombocytopenia ? Secondary to suspected underlying cirrhosis of the liver 10. Seizure disorder ? Patient is on Keppra did continue 11. Hypothyroidism - Patient is on levothyroxine home dose continued 10. Chronic hypotension ? Patient is on midodrine 11. DVT prophylaxis ? Avoided the use of chemoprophylaxis given patient's low platelet count Time spent in the patient's overall evaluation,decision-making process, review of diagnostic data, adjustment of management, discussion with other providers, nursing nursing and ancillary staff involved in patient's care documentation, 55 Minutes Charges/Coding Visit Charges Inpatient E&M: 26619 Subs Hosp L3
[2025-07-13 07:23] LABS: Differential Indicated SCAN CRITERIA MET
[2025-07-13] MEDS: Thiamine Hydrochloride 100 MG Tablet PO (08:11)
[2025-07-13 08:31] LABS: Ammonia 60.5 umol/L (16-60)
--- NOTE | 2025-07-13 09:25 | NURSING ---
0925- [facility] transfer line called, update given on patient status- heart rate 160s, RR up to 40s at times, on 6L NC now, BP 84/50 on midodrine TID, may need to start levophed, getting ABG now, elevated INR giving Vitamin K and rechecking coags, thoracentesis and paracentesis today if coags stable. Transfer line stated she is getting this information to doctor and hoping for a bed availability soon.
[2025-07-13 09:26] LABS: Prothrombin Time (Protime)PT. 45.3 SECONDS (11.7-14.9)
--- NOTE | 2025-07-13 09:30 | NURSING ---
O2 sats droping to 87% on 4L NC, increased to 6 liters NC for O2 sats
[2025-07-13 09:38] LABS: Allen Test Positive; Base Excess -12 mmol/L (-2 to +2); FI02 6.0; PO2 69 mmHG (75-100); SITE L Radial; SO2 88 % (95-99); Time Given 09:36:20
[2025-07-13] MEDS: Phytonadione (Vit K) 10 MG in 0.9% Normal Saline (50mL Bag) 50 ML 150 MG IV (09:42)
[2025-07-13] MEDS: 0.9% Saline Lock 10 ML Syringe IV (09:44)
[2025-07-13 10:01] LABS: LDH 267 U/L (87-241)
[2025-07-13 10:04] LABS: Albumin, Serum 2.4 g/dL (3.5-5.0); Globulin 3.8 g/dL (2.2-4.2)
--- NOTE | 2025-07-13 10:07 | NURSING ---
1000- [facility] transfer line called stating bed will be available soon and doctor would like to speak to our ICU physician. This RN notified Dr. Vidales, who stated hospitalist will need to call because he is unavailable at this time. This RN notified Dr. Edwards to call ICU for update and [facility] would like called regarding this patient.
--- NOTE | 2025-07-13 10:53 | DS.PCM_ITS ---
Providers Date of Admission: 07/12/25 Date of Discharge: 07/13/25 Primary Care Physician: Dr. Kem Farmer MD Consultations 07/13/25 00:57 Consult: Bus Operator / Pulmonary Medicine Routine Consulting Provider: Intensivists/Pulmonary Med Reason for Consult: Sepsis, PNA, Hypoxia, UTI EMERGENT Consult: No Notified: Yes Date Notified: 07/13/25 Time Notified: 05:49 Method of Notification: Text 07/13/25 07:19 Consult: Gastroenterology Routine Consulting Provider: [facility] Reason for Consult: Liver Cirrhosis EMERGENT Consult: No Notified: Yes Date Notified: 07/13/25 Time Notified: 07:29 Method of Notification: Text Reason For Visit: SEPSIS HYPOXIA R SIDED LOCULATED EFFUSION W/ Diagnosis Discharge Diagnosis (1) Sepsis: Status: Acute Code(s): A41.9 - Sepsis, unspecified organism Plan Patient is a 55-year-old gentleman with past medical history significant for alcoholic cirrhosis of the liver presented to the emergency department with nausea and vomiting as well as subjective fever. An assessment of sepsis made admitted to the intensive care unit for further management 1. Sepsis ? Multiple etiologies including acute cystitis, suspected SBP given patient cirrhosis of the liver with ascites as well as pneumonia. Treatment initiated per protocol patient admitted to the intensive care unit for further management 2. Large loculated right pleural effusion ? Imaging studies demonstrated Imaging studies obtained on admission demonstrated large loculated right pleural effusionwith lobulation causing collapse of right lower lobe, right middle lobe, and partial collapse of right upper lobe. Patient was started on broad-spectrum antibiotic therapy with Zosyn and vancomycin consult placed to equipment worker/pulmonary medicine. Decision was made to transfer patient to a facility with cardiothoracic surgery availability for possible VATS 3. Suspected SBP No fever patient with underlying cirrhosis of the liver patient presented with abdominal pain nausea vomiting as well as low-grade fever. Did order ultrasound-guided paracentesis with plans to send ascitic fluid for fluid analysis including Gram stain, cell count and differential, albumin level culture and cytology 4. Acute cystitis ? Patient remains on broad-spectrum antibiotic therapy with Zosyn cultures sent 5. Cirrhosis of the liver with complications including portal hypertension ? Imaging studies obtained on admission did show Cirrhosis. Portal hypertension with sequela including splenomegaly, varices, and ascites. Diffuse colonic wall thickening favoring portal hypertension, though colitis is possible.. Patient is on rifaximin 6. Cholelithiasis ? Gallbladder ultrasound ordered for subsequent eval 7. Gallbladder wall thickening, favoring reactive to portal hypertension. -Gallbladder ultrasound ordered for subsequent eval 8. Chronic microcytic anemia ? Possibly related to patient's chronic alcohol use monitoring with daily H&H with plans to transfuse if hemoglobin falls below 7 or patient is deemed to be symptomatic 9. Thrombocytopenia ? Secondary to suspected underlying cirrhosis of the liver 10. Seizure disorder ? Patient is on Keppra did continue 11. Hypothyroidism - Patient is on levothyroxine home dose continued 10. Chronic hypotension ? Patient is on midodrine 11. DVT prophylaxis ? Avoided the use of chemoprophylaxis given patient's low platelet count 12. Coagulopathy ? Secondary to cirrhosis of the liver 13. Hypoglycemia ? Secondary to patient cirrhosis of the liver Time spent in the patient's overall evaluation,decision-making process, review of diagnostic data, adjustment of management, discussion with other providers, nursing nursing and ancillary staff involved in patient's care documentation, 55 Minutes Medications at Discharge Home Medications compress.stocking,knee,reg,lrg #2 ea 09/18/21 compress.stocking,knee,reg,lrg #2 ea 07/01/24 lactulose 10 gram/15 mL oral solution (Constulose) 10 g PO BID 03/24/25 Bedside Commode #1 ea 05/08/25 meclizine 25 mg tablet (Travel-Ease (meclizine)) 25 mg PO BID PRN for dizziness #60 TABLETS 05/11/25 rifaximin 550 mg tablet 550 mg PO BID #180 tabs 05/11/25 furosemide 40 mg tablet 40 mg PO BIDLX #60 tabs 06/12/25 gabapentin 600 mg tablet 600 mg PO BID pain #60 tabs 06/12/25 levetiracetam 1,000 mg tablet 1,000 mg PO BID ? #60 tabs 06/12/25 levothyroxine 50 mcg tablet 50 mcg PO DAILY thyroid #30 tabs 06/12/25 midodrine 10 mg tablet 10 mg PO TID #180 tabs 06/12/25 thiamine HCl (vitamin B1) 100 mg capsule 100 mg PO QDAY #90 caps 06/12/25 Physical Exam Narrative GENERAL: cooperative HEENT: Atraumatic; normocephalic EYES; icteric, Normal Conjunctiva NECK; supple, normal thyroid, RESPIRATORY: Diminished to auscultation CARDIOVASCULAR: Regular S1 S2, GI: soft, normoactive bowel sounds, slight distention of the abdomen : No Renal angle tenderness; EXTREMITIES: No edema, no clubbing, MUSCULOSKELETAL: no muscle wasting NEURO: Awake; no lateralizing signs. SKIN: No Rash PSYCH; Flat affect Medical Records Data Medical Nutrition Assessment Dietitian: Malnutrition Criteria Met Start: 07/13/25 10:40 Freq: Status: Active Protocol: Document 07/13/25 10:41 SB (Rec: 07/13/25 10:41 SB [id number]) Nutrition Malnutrition Evidence of Yes Malnutrition Exists Malnutrition (severe Acute Illness/Injury ): Evidenced By Suboptimal Energy Intake (Severe),Weight Loss (Severe) Intake Problem Inadequate Oral Intake Etiology related to possible thoracentesis/paracentesis Signs/Symptoms as evidenced by NPO Status Active Problem Clinical Problem Acute Disease or Injury Related Malnutrition Etiology severe related to inadequate oral intake and alcohol abuse Signs/Symptoms as evidenced by PO meeting <50% of estimated nutrition needs x 2-3 weeks and 11% unintentional weight loss x 3 months Status Active Problem Recommendation Dietitian Recommend continuing cardiac diet after thoracentesis/ Recommendations/ paracentesis. Changes Will order 120ml vanilla EPHP with meals. Will monitor weight trends. Weight / BMI Weight Weight: 88.6 kg Body Mass Index (BMI) 27.2 ABG / Lab / Microbiology Data 07/13/25 04:55 07/13/25 04:55 Laboratory: Laboratory Results - last 24 hr 07/12/25 11:45: WBC 4.8, RBC 2.69 L, Hgb 10.2 L, Hct 30.5 L, MCV 113.4 H, MCH 37.9 H, MCHC 33.4, RDW Std Deviation 58.9 H, RDW Coeff of Demond 14.4, Plt Count 49 L*, MPV 9.4, Immature Gran % (Auto) 0.200, Neut % (Auto) 83.1 H, Lymph % (Auto) 7.2 L, [place] % (Auto) 9.3, Eos % (Auto) 0.0, Baso % (Auto) 0.2, Absolute Neuts (auto) 4.0, Absolute Lymphs (auto) 0.35 L, Nucleated RBC % 0, Platelet Estimate MKD DEC, Sodium 135, Potassium 3.1 L, Chloride 95 L, Carbon Dioxide 19.4 L, A nion Gap 20 H, BUN 9, Creatinine 0.95, Estim Creat Clear Calc 94.68, Est GFR (MDRD) Non-Af 96, BUN/Creatinine Ratio 9.9 L, Glucose 199 H, Lactic Acid 10.5 H* , Calcium 8.6, Magnesium 1.0 L, Total Bilirubin 17.10 H*, AST 85 H, ALT 29, A lkaline Phosphatase 162 H, Troponin T High Sens 37 H, Total Protein 7.0, Albumin 2.7 L, Globulin 4.3 H, Albumin/Globulin Ratio 0.6 L, Lipase 30 07/12/25 13:50: Troponin T Hi Sens 2 Hr 35 H 07/12/25 14:20: Urine Color Yellow, Urine Clarity Cloudy, Urine pH 6.0, Ur Specific [place] 1.010, Urine Protein 30 H, Urine Glucose (UA) Normal, Urine Ketones 5 H, Urine Occult Blood 25 H, Urine Nitrite Positive H, Urine Bilirubin 6 H, Urine Urobilinogen 4 H, Ur Leukocyte Esterase 25 H, Urine RBC 0-5 SEEN, Urine WBC 10-25 SEEN, Ur Squamous Epith Cells 0 SEEN, Urine Bacteria 1+, Urine Mucus 0 SEEN 07/12/25 15:05: Ethyl Alcohol < 10.1 07/12/25 16:00: Phosphorus 3.2, Troponin T Hi Sens 4Hr 38 H 07/12/25 16:25: Lactic Acid 5.3 H* 07/12/25 21:00: Lactic Acid 4.7 H* 07/12/25 22:12: PT 35.8 H, INR 3.5, APTT 50.8 H 07/13/25 04:55: WBC 6.5, RBC 2.49 L, Hgb 9.5 L, Hct 30.1 L, MCV 120.9 H D, MCH 38.2 H, MCHC 31.6 L D, RDW Std Deviation 64.5 H, RDW Coeff of Demond 14.4, Plt Count 57 L, MPV 9.9, Immature Gran % (Auto) 1.200 H, Neut % (Auto) 77.2 H, Lymph % (Auto) 9.3 L, [place] % (Auto) 11.8 H, Eos % (Auto) 0.2, Baso % (Auto) 0.3, Absolute Neuts (auto) 5.0, Absolute Lymphs (auto) 0.60 L, Nucleated RBC % 0, Differential Comment COMMENT, Platelet Estimate MOD DEC, Sodium 137, Potassium 3.4, Chloride 100, Carbon Dioxide 14.3 L, Anion Gap 23 H, BUN 14, Creatinine 1.17, Estim Creat Clear Calc 76.87, Est GFR (MDRD) Non-Af 74, BUN/Creatinine Ratio 11.7, Glucose 48 L, Hemoglobin A1c < 4.2, Calcium 8.2, Phosphorus 4.3, Magnesium 1.9, Total Bilirubin 19.80 H*, Direct Bilirubin 10.60 H, AST 73 H, ALT 24, Alkaline Phosphatase 93, Total Protein 6.5, Albumin 2.5 L, Globulin 4.0 07/13/25 07:50: Ammonia 60.5 H 07/13/25 07:57: POC Glucose 27 L* 07/13/25 08:26: POC Glucose 86 07/13/25 09:03: PT 45.3 H, INR 4.7 H*, Lactate Dehydrogenase 267 H, Total Protein 6.2, Albumin 2.4 L, Globulin 3.8, Albumin/Globulin Ratio 0.6 L 07/13/25 09:17: POC Glucose 70 L 07/13/25 10:31: POC Glucose 60 L Microbiology: Microbiology 07/12/25 11:45 Blood Culture (Wb) - Anticubital Left Blood Culture - Preliminary GNR lactose protective services social worker 07/13/25 02:14 Nasal Secretion MRSA (PCR) - Final 07/13/25 01:15 Mucosa - Nasopharyngeal Respiratory Panel (PCR) - Final 07/12/25 14:20 Urine, Clean Catch Legionella Antigen - Final 07/12/25 14:20 Urine, Clean Catch Streptococcus pneumoniae Antigen (M - Final 07/12/25 14:22 Mucosa - Nose SARS-CoV-2, Influenza & RSV (PCR) - Final ABG: ABG 07/13/25 09:34 Specimen Type ART Sample Site L Radial pH 7.15 L* Bicarbonate Actual 16.5 L Total CO2 18 Base Excess -12 L O2 Saturation 88 L O2 % 6.0 ABG pCO2 47.8 H ABG pO2 69 L Nick Test Positive O2 Delivery Device Cannula Vent Mode Not entered Crit Call To/Read Back Yes Blood Gas Notified Whom brown Blood Gas Notified Time 09:36:20 Radiography Diagnostic Testing: Radiology Impression Chest X-Ray 07/12/25 11:39 IMPRESSION: 1. No pneumothorax is noted. 2. Very large right pleural fluid collection, increased since the prior study of 06/29/2025. Reading Location: [facility]1 Abdomen/Pelvis CT 07/12/25 11:40 IMPRESSION: *Large loculated right pleural effusion with lobulation causing collapse of right lower lobe, right middle lobe, and partial collapse of right upper lobe. *Cirrhosis. *Portal hypertension with sequela including splenomegaly, varices, and ascites. *Diffuse colonic wall thickening favoring portal hypertension, though colitis is possible. *Cholelithiasis. *Gallbladder wall thickening, favoring reactive to portal hypertension. *Compression deformity of L3, new since prior CT, but of undetermined exact age. *Urinary bladder wall thickening, which may indicate cystitis or changes related to outlet obstruction. *Left hydrocele. *Borderline prostate enlargement. Reading Location: [id number] D/C Instructions DC O2, CPAP, BIPAP Needs Home O2 Discharge instructions: No Meaningful Use Info Meaningful Use Meaningful Use Diagnoses (Choose all that apply): None applicable Discharge Plan Admission Admit Date/Time: 07/12/25 21:40 Attending Provider: Moris Edwards Primary Care Provider: Kem Farmer Consulting Providers: Red Ziegler; Caden Villafana; Renato Charles; Vinod Vidales; Moris Chavarria; Carl Foote; Jose Carlos Murrell; Jessica Crouch; Олег Fitch; Jah Heller; Yossi Barcenas; Elaine Guzman; Omari,María; Obregon,Chelsea; Felicia,Félix; Artem,Randy; Camryn,Be; Sidney,Aravind; Wilton Oconnor; Ada Mitchell; Jn Maradiaga; Aneesh Saleh; Chivo Berger; Jennifer Yeboah; Marky Romero; Abel Parr; Sofia Almazan; Anita Mathews; Darcy Lyle Discharge Orders/Prescriptions Prescriptions: Continued (DME) compress.stocking,knee,reg,lrg Misc See Rx Instructions .MEDSUPPLY Qty: 2 1RF Rx Instructions: wear daily for venous insufficiency 20-30 mmHg lactulose [Constulose] 10 gram/15 mL solution 10 g PO BID rifaximin 550 mg tablet 550 mg PO BID Qty: 180 0RF meclizine [Travel-Ease (meclizine)] 25 mg tablet 25 mg PO BID PRN (Reason: for dizziness) Qty: 60 3RF (DME) compress.stocking,knee,reg,lrg Misc See Rx Instructions .MEDSUPPLY Qty: 2 1RF Rx Instructions: wear daily for venous insufficiency 20-30 mmHg (DME) Bedside Commode See Rx Instructions .Route .MEDSUPPLY Qty: 1 0RF Rx Instructions: As directed furosemide 40 mg tablet 40 mg PO BIDLX Qty: 60 0RF gabapentin 600 mg tablet 600 mg PO BID Qty: 60 0RF Rx Instructions: TAKE 1 TABLET BY MOUTH TWICE A DAY levetiracetam 1,000 mg tablet 1,000 mg PO BID Qty: 60 0RF levothyroxine 50 mcg tablet 50 mcg PO DAILY Qty: 30 0RF midodrine 10 mg tablet 10 mg PO TID Qty: 180 1RF Rx Instructions: do not give last dose of day after 6PM or within 4 hrs of bedtime thiamine HCl (vitamin B1) 100 mg capsule 100 mg PO QDAY Qty: 90 1RF Referrals / Follow Up: Kem Farmer MD [Primary Care Provider] - Within 2 Weeks Disposition Disposition (needs filled in before D/C Order can be placed): Acute Care Hospital Charges/Coding Visit Charges Inpatient E&M: 71788 Disch Hosp >30min
[2025-07-13] MEDS: Sodium Bicarbonate 150 MEQ in Dextrose 5%-Water (1000mL Bag) 1,000 ML 100 MEQ IV (10:55)
--- NOTE | 2025-07-13 11:36 | CASEMGMT ---
Social Work Pt completed SDOH w/SW, friend Dalila present, pt agreeable for Dalila to stay in room while SW speaks w/him. Pt does not need transportation resources as his friend Dalila takes him to appts. Dalila states that pt's landlord is threatening to evict him. Pt is already aware of all resources in the area that can help w/this, so pt declined any resources at this time. SW also did ask pt about POA, if he would be interested in completing these documents at this time. Pt does not feel well enough to complete documents at this time. Pt is single, has no children. SW explained w/o the documents his mother would be his decisionmaker. Pt is fine w/this, Dalila states that pt's mother is actually on her way here now. SW remains available for any additional social service needs. EDITH Saul
--- NOTE | 2025-07-13 12:02 | NURSING ---
O2 sats dropped to 83% on 6L NC, placed on 8L high flow NC and O2 improved to 91%
[2025-07-13] MEDS: Norepinephrine 8 MG in 0.9% Normal Saline (250mL Bag) 242 ML 9.4 MG CONT INF (12:47)
--- NOTE | 2025-07-13 12:50 | NURSING ---
Levophed was started due to the physician's parts sales manager stating that he can not start drips in case of pt decompensation.
--- NOTE | 2025-07-13 13:34 | NURSING ---
Levophed and sodium bicarb drips continued with transport to [facility].
--- NOTE | 2025-07-13 14:14 | CON.PCM.GI_ITS ---
HPI Consult Data Date of Consult: 07/13/25 HPI Narrative Reason for Consultation: Jaundice HPI Narrative: ALYSSA HAMLIN, is a 55-year-old individual admitted to the ICU with a history of chronic heavy alcohol consumption and newly diagnosed alcohol-associated hepatitis and acute liver failure. Patient's reports a history of?significant alcohol use for several years, including recent episodes of heavy drinking. He also reports progressive?jaundice, malaise, nausea, vomiting, and increasing confusion?over the past few days. ?He developed?abdominal pain, ascites, and altered mental status (confusion, disorientation, and asterixis), necessitating transfer to the ICU. * Liver Function Tests (LFTs):?Bilirubin Total 15.2 mg/dL , AST 250 U/L , ALT 100 U/L, AST/ALT ratio > 2, Alkaline Phosphatase 200 U/L (Elevated), Gamma- Glutamyl Transpeptidase 300 U/L * Coagulation:?INR 2.5 * Electrolytes:?Sodium 130 mmol/L, Potassium 4.0 mmol/L, Chloride 95 mmol/L. * Complete Blood Count (CBC):?WBC 15,000 cells/?L (Elevated with neutrophilic predominance), Hemoglobin 11 g/dL, Platelets 47,000 cells/?L , according to the . * Renal Function:?Creatinine 1.8 mg/dL , Blood Urea Nitrogen 40 mg/dL . * Ammonia:?Arterial ammonia 68 umol/L. * MELD Score:?Calculated at 28? Imaging:?Abdominal ultrasound without Doppler:?Confirmed ascites and tender hepatomegaly. No evidence of biliary obstruction or portal vein thrombosis. [facility] Medical History Low testosterone in male Chronic back pain Screening for prostate cancer Surgical wound breakdown Failure to thrive in adult Rib fractures Debility History of fracture Decompensated hepatic cirrhosis Dark urine Elevated CA 19-9 level Dermatitis Hypothyroidism Decreased urination Erectile dysfunction Change in bowel habits Nausea & vomiting Swallowing problem Abdominal pain Thrombocytopenia Alcoholic hepatitis Obesity (BMI 30.0-34.9) Abnormal thyroid function test Venous insufficiency of both lower extremities Back pain Limb weakness Balance problem Knee pain Diarrhea Chest pain Neuropathy of both feet Fracture, ribs Brain atrophy History of alcohol abuse Arthritis Seizures Glaucoma Hypertension Hyperlipemia Home Medications ?Medication ?Instructions ?Recorded ?Last Taken ?Type compress.stocking,knee,reg,lrg #2 ea 09/18/21 Unknown Rx compress.stocking,knee,reg,lrg #2 ea 07/01/24 Unknown Rx lactulose 10 gram/15 mL oral 10 g PO BID 03/24/25 Unkn own History solution (Constulose) Bedside Commode #1 ea 05/08/25 Unknown Rx meclizine 25 mg tablet 25 mg PO BID PRN for dizzine ss #60 05/11/25 Unknown Rx (Travel-Ease (meclizine)) TABLETS rifaximin 550 mg tablet 550 mg PO BID #180 tabs 04/23 08/17 Unknown Rx furosemide 40 mg tablet 40 mg PO BIDLX #60 tabs 05/24 12/17 Unknown Rx gabapentin 600 mg tablet 600 mg PO BID pain #60 tabs 06/12/25 Unknown Rx levetiracetam 1,000 mg tablet 1,000 mg PO BID ? #60 ta bs 06/12/25 Unknown Rx levothyroxine 50 mcg tablet 50 mcg PO DAILY thyroid #3 0 tabs 06/12/25 Unknown Rx midodrine 10 mg tablet 10 mg PO TID #180 tabs 06/12 Unknown Rx thiamine HCl (vitamin B1) 100 mg 100 mg PO QDAY #90 ca ps 06/12/25 Unknown Rx capsule Allergy/AdvReac Type Severity Reaction Status Date / Time No Known Allergies Allergy Verified 07/12/25 11:24 Family History Father Alcoholism Heart disease Myocardial infarction Mother Arthritis Sister Depression Grandfather Myocardial infarction Grandfather CVA (cerebral vascular accident) Surgical History H/O esophagogastroduodenoscopy History of abdominal paracentesis History of surgical procedure on eye proper using laser History of bilateral hip replacements History of tonsillectomy Social History (Updated 07/12/25 @ 22:[address] Jennifer Yeboah MD) household members: spouse Smoking Status: Never smoker Smokeless tobacco user: chewing tobacco Electronic Cigarette Use: not used second hand exposure: Yes alcohol intake: current alcohol intake frequency: 3 or more drinks per day Alcohol type: beer details: 4-6 beers a day substance use type: does not use what type of physical activity do you participate in: walking frequency: daily Physical Exam Narrative GENERAL: cooperative HEENT: Atraumatic; normocephalic EYES; icteric, Normal Conjunctiva NECK; supple, normal thyroid, RESPIRATORY: Diminished to auscultation CARDIOVASCULAR: Regular S1 S2, GI: soft, normoactive bowel sounds, slight distention of the abdomen : No Renal angle tenderness; EXTREMITIES: No edema, no clubbing, MUSCULOSKELETAL: no muscle wasting NEURO: Awake; no lateralizing signs. SKIN: No Rash PSYCH; Flat affect Lab / Micro Data 07/13/25 04:55 07/13/25 04:55 Labs: Laboratory Results - last 24 hr 07/12/25 13:50: Troponin T Hi Sens 2 Hr 35 H 07/12/25 14:20: Urine Color Yellow, Urine Clarity Cloudy, Urine pH 6.0, Ur Specific [place] 1.010, Urine Protein 30 H, Urine Glucose (UA) Normal, Urine Ketones 5 H, Urine Occult Blood 25 H, Urine Nitrite Positive H, Urine Bilirubin 6 H, Urine Urobilinogen 4 H, Ur Leukocyte Esterase 25 H, Urine RBC 0-5 SEEN, Urine WBC 10-25 SEEN, Ur Squamous Epith Cells 0 SEEN, Urine Bacteria 1+, Urine Mucus 0 SEEN 07/12/25 15:05: Ethyl Alcohol < 10.1 07/12/25 16:00: Phosphorus 3.2, Troponin T Hi Sens 4Hr 38 H 07/12/25 16:25: Lactic Acid 5.3 H* 07/12/25 21:00: Lactic Acid 4.7 H* 07/12/25 22:12: PT 35.8 H, INR 3.5, APTT 50.8 H 07/13/25 04:55: WBC 6.5, RBC 2.49 L, Hgb 9.5 L, Hct 30.1 L, MCV 120.9 H D, MCH 38.2 H, MCHC 31.6 L D, RDW Std Deviation 64.5 H, RDW Coeff of [place] 14.4, Plt Count 57 L, MPV 9.9, Immature Gran % (Auto) 1.200 H, Neut % (Auto) 77.2 H, Lymph % (Auto) 9.3 L, [place] % (Auto) 11.8 H, Eos % (Auto) 0.2, Baso % (Auto) 0.3, Absolute Neuts (auto) 5.0, Absolute Lymphs (auto) 0.60 L, Nucleated RBC % 0, Differential Comment COMMENT, Platelet Estimate MOD DEC, Sodium 137, Potassium 3.4, Chloride 100, Carbon Dioxide 14.3 L, Anion Gap 23 H, BUN 14, Creatinine 1.17, Estim Creat Clear Calc 76.87, Est GFR (MDRD) Non-Af 74, BUN/Creatinine Ratio 11.7, Glucose 48 L, Hemoglobin A1c < 4.2, Calcium 8.2, Phosphorus 4.3, Magnesium 1.9, Total Bilirubin 19.80 H*, Direct Bilirubin 10.60 H, AST 73 H, ALT 24, Alkaline Phosphatase 93, Total Protein 6.5, Albumin 2.5 L, Globulin 4.0 07/13/25 07:50: Ammonia 60.5 H 07/13/25 07:57: POC Glucose 27 L* 07/13/25 08:26: POC Glucose 86 07/13/25 09:03: PT 45.3 H, INR 4.7 H*, Lactate Dehydrogenase 267 H, Total Protein 6.2, Albumin 2.4 L, Globulin 3.8, Albumin/Globulin Ratio 0.6 L 07/13/25 09:17: POC Glucose 70 L 07/13/25 10:31: POC Glucose 60 L 07/13/25 11:39: POC Glucose 99 Micro: Microbiology 07/12/25 11:45 Blood Culture (Wb) - Anticubital Left Blood Culture - Preliminary GNR lactose manager inside 07/13/25 02:14 Nasal Secretion MRSA (PCR) - Final 07/13/25 01:15 Mucosa - Nasopharyngeal Respiratory Panel (PCR) - Final 07/12/25 14:20 Urine, Clean Catch Legionella Antigen - Final 07/12/25 14:20 Urine, Clean Catch Streptococcus pneumoniae Antigen (M - Final 07/12/25 14:22 Mucosa - Nose SARS-CoV-2, Influenza & RSV (PCR) - Final ABG Data ABG results: ABG 07/13/25 09:34 Specimen Type ART Sample Site L Radial pH 7.15 L* Bicarbonate Actual 16.5 L Total CO2 18 Base Excess -12 L O2 Saturation 88 L O2 % 6.0 ABG pCO2 47.8 H ABG pO2 69 L Nick Test Positive O2 Delivery Device Cannula Vent Mode Not entered Crit Call To/Read Back Yes Blood Gas Notified Whom brown Blood Gas Notified Time 09:36:20 Imaging Radiology Impression Chest X-Ray 07/12/25 11:39 IMPRESSION: 1. No pneumothorax is noted. 2. Very large right pleural fluid collection, increased since the prior study of 06/29/2025. Reading Location: [facility] Abdomen/Pelvis CT 07/12/25 11:40 IMPRESSION: *Large loculated right pleural effusion with lobulation causing collapse of right lower lobe, right middle lobe, and partial collapse of right upper lobe. *Cirrhosis. *Portal hypertension with sequela including splenomegaly, varices, and ascites. *Diffuse colonic wall thickening favoring portal hypertension, though colitis is possible. *Cholelithiasis. *Gallbladder wall thickening, favoring reactive to portal hypertension. *Compression deformity of L3, new since prior CT, but of undetermined exact age. *Urinary bladder wall thickening, which may indicate cystitis or changes related to outlet obstruction. *Left hydrocele. *Borderline prostate enlargement. Reading Location: [facility] Assessment & Plan Assessment/Plan (1) Decompensated hepatic cirrhosis: PLAN: 55-year-old male with?severe acute alcoholic hepatitis and acute liver failure?manifesting as?significant jaundice, coagulopathy, ascites, and Grade II hepatic encephalopathy,? The elevated bilirubin, prolonged INR, and encephalopathy are consistent with ASSISTED. The patient also presents with signs of? alcohol withdrawal?and is at high risk for complications such as infection, variceal hemorrhage, and hepatorenal syndrome. Differential Diagnosis:?While alcoholic hepatitis is the leading diagnosis, other causes of acute liver injury, such as viral hepatitis, drug-induced liver injury, autoimmune hepatitis, and Ramone's disease, must be ruled out,. The?high AST/ALT ratio > 2 and elevated GGT?are highly suggestive of alcohol-related liver damage. Infection is a significant concern given the leukocytosis and systemic inflammatory response, according to the National Institutes of Health (NIH) (.gov). Plan * Monitor:?Closely monitor vital signs, mental status, fluid balance, and laboratory values (including daily LFTs, INR, CBC, electrolytes, renal function, and ammonia levels). * Supportive Care: * Airway and Breathing:?Maintain airway, provide oxygen as needed. * Circulatory Support:?Maintain Mean Arterial Pressure (MAP) > 65 mmHg with intravenous fluids and vasopressors as needed. Consider central venous access for hemodynamic monitoring and medication administration,?. * Hepatic Encephalopathy:?Administer lactulose 20g orally every hour until the first bowel movement, then titrate to maintain 2-3 soft bowel movements per day. Consider rifaximin if warranted. Elevate head of bed to 30 degrees to minimize intracranial pressure. * Nutrition:?Initiate enteral or parenteral nutrition in consultation with a dietitian to address malnutrition. * Renal Protection:?Monitor renal function and fluid balance closely. Consider diuretics and fluid restriction as needed for ascites management. * Infection Prophylaxis and Management:?Obtain blood and urine cultures. Perform diagnostic paracentesis to rule out Spontaneous Bacterial Peritonitis ). Administer prophylactic antibiotics and treat infections promptly,? * Coagulopathy:?Administer Vitamin K as needed. Consider fresh frozen plasma for active bleeding or prior to invasive procedures. * Alcohol Withdrawal:?Monitor for signs of alcohol withdrawal and administer benzodiazepines (Lorazepam or Oxazepam) for prophylaxis and treatment as needed. * Specific Therapies: * Corticosteroids:?Consider corticosteroids (prednisolone 40mg daily) for severe alcoholic hepatitis if no contraindications exist.. Evaluate response with the [place] score at Day 4 or 7. * Liver Transplantation:?Early discussion with a liver transplant center is warranted given the severity of ASSISTED and the potential for a poor prognosis despite medical management Charges/Coding Visit Charges Inpatient E&M: 92581 Init Hosp L3
== END 2025-07-13 13:48 | disposition short-term general hospital (02) | DRG 871 ==
LOC: ED 12:04 → ICU 23:22
PROVIDERS: Internal Medicine Critical Care Medicine; Admitting Provider Family Medicine; Emergency Provider Student in an Organized Health Care Education/Training Program; PCP Internal Medicine; Visit Provider Internal Medicine
DX: A41.9 Sepsis, unspecified organism (principal); J18.9 Pneumonia, unspecified organism; J96.01 Acute respiratory failure with hypoxia; J90 Pleural effusion, not elsewhere classified; K76.6 Portal hypertension; N30.00 Acute cystitis without hematuria; D69.6 Thrombocytopenia, unspecified; G40.909 Epilepsy, unspecified, not intractable, without status epilepticus; E03.9 Hypothyroidism, unspecified; I10 Essential (primary) hypertension; D53.9 Nutritional anemia, unspecified; F10.10 Alcohol abuse, uncomplicated; K70.31 Alcoholic cirrhosis of liver with ascites; E78.5 Hyperlipidemia, unspecified; K82.8 Other specified diseases of gallbladder; K80.20 Calculus of gallbladder without cholecystitis without obstruction; I95.89 Other hypotension; F17.220 Nicotine dependence, chewing tobacco, uncomplicated; E87.6 Hypokalemia; R73.9 Hyperglycemia, unspecified; Z79.899 Other long term (current) drug therapy
CPT/HCPCS: 36415; 36569; 36600; 71046; 74177; 80048; 80053; 80076; 81001; 82040; 82077; 82140; 82803; 82962; 83036; 83605; 83615; 83690; 83735; 84100; 84155; 84484; 85025; 85610; 85730; 87040; 87077; 87086; 87186; 87449; 87631; 87633; 87641; 93005; 94640; 94762; 97802; 99285; 99406; Q9967; A4216; J2405